=== PATIENT | male | born 1970 | race African-American/Black ===

== ENCOUNTER 2020-09-18 07:57 | Outpatient (RCR) | payer OTHER, SELFPAY ==
--- NOTE | ~2020-09-18 | XR_ITS ---
EXAMINATION: XR FOOT, LEFT CLINICAL INFORMATION: Left foot wound COMPARISON: None TECHNIQUE: AP, lateral, and oblique views of the left foot. FINDINGS: No acute visible fracture or dislocation. Small plantar calcaneal heel spur. Joint spaces and alignment are maintained. Soft tissue defect at the volar aspect along the metatarsophalangeal joints without soft tissue gas or cortical erosions to suggest osteomyelitis. XR/XR foot LT min 3V IMPRESSION: 1. No acute visible fracture or dislocation. 2. Soft tissue defect at the volar aspect along the metatarsophalangeal joints without soft tissue gas or cortical erosions to suggest osteomyelitis.
--- NOTE | ~2020-09-18 | XR_ITS ---
EXAMINATION: XR FOOT, RIGHT CLINICAL INFORMATION: Right dorsal foot performed COMPARISON: April 25, 2021 and studies dating back to September 19, 2020 TECHNIQUE: AP, lateral, and oblique views of the right foot. FINDINGS: No acute fracture or dislocation is evident. Status post transmetatarsal amputation of the fourth metatarsal. There is a stable appearance compared to study of April 25, 2021 without increase in erosive change at the amputation site. There has been resorption of some decalcification which was present within the soft tissues. No definite new periosteal reaction is present at the amputation site. No gas within the soft tissues identified. XR/XR foot RT 2V IMPRESSION: No change in appearance of the bone at the amputation site of the transmetatarsal surgery fourth metatarsal. Some resorption of calcification within the soft tissues.
[2021-05-22 08:46] LABS: MANUAL DIFF FLAG NO
[2021-05-22 09:00] LABS: Basophils Absolute Auto 0.1 X10*3/uL (0.0-0.2); Basophils Percent Auto 0.7 % (0-2); Eosinophils Absolute Auto 0.3 X10*3/uL (0.0-0.4); Eosinophils Percent Auto 3.4 % (0-4); Hematocrit 28.8 % (42-52); Hemoglobin 8.9 g/dl (14.0-18.0); Imm Gran Abs Auto 0.04 X10*3/uL (0.00-0.03); Imm Gran Pct Auto 0.4 % (0.0-0.4); Lymphocytes Percent Auto 32.3 % (20-40); Mean Corpuscular HGB Conc 30.9 g/dl (31.0-36.0); Mean Corpuscular Hemoglobin 25.9 pg (27.0-33.0); Mean Platelet Volume 9.7 fL (9.4-12.4); Monocytes Absolute Auto 0.7 X10*3/uL (0.1-1.2); Neutrophils Absolute Auto 5.1 X10*3/uL (2.0-8.3); Neutrophils Percent Auto 55.2 % (45-73); Platelet Count 494 X10*3/uL (160-400); Red Blood Count 3.43 X10*6/uL (4.60-5.80); Red Cell Distribution Width 14.4 % (11.0-16.0); White Blood Count 9.1 X10*3/uL (4.8-10.8)
[2021-05-22 09:47] LABS: Anion Gap 12 (12-20); Blood Urea Nitrogen 15 mg/dL (9-16); C Reactive Protein 0.37 mg/dL (< or = 0.50); Calcium 9.6 mg/dL (8.4-10.2); Carbon Dioxide 24 mmol/L (22-29); Chloride 106 mmol/L (96-108); Estimated Glomerular Filt Rate > 60; Glucose Random 224 mg/dL (60-115); Potassium 4.7 mmol/L (3.3-5.1); Sodium 137 mmol/L (135-145)
[2021-05-22 09:59] LABS: Erythrocyte Sedimentation Rate 55 MM/HR (0-15)
[2021-05-22 10:04] LABS: Estimated Average Glucose 192 mg/dL; Hemoglobin A1c % 8.3 %
[2021-06-13 08:37] LABS: MANUAL DIFF FLAG NO
[2021-06-13 08:43] LABS: Basophils Percent Auto 0.4 % (0-2); Eosinophils Absolute Auto 0.3 X10*3/uL (0.0-0.4); Eosinophils Percent Auto 2.6 % (0-4); Hematocrit 28.8 % (42-52); Hemoglobin 9.1 g/dl (14.0-18.0); Imm Gran Abs Auto 0.03 X10*3/uL (0.00-0.03); Imm Gran Pct Auto 0.3 % (0.0-0.4); Lymphocytes Absolute Auto 2.1 X10*3/uL (1.2-4.9); Lymphocytes Percent Auto 21.4 % (20-40); Mean Corpuscular HGB Conc 31.6 g/dl (31.0-36.0); Mean Corpuscular Volume 85.5 fL (80-98); Mean Platelet Volume 9.5 fL (9.4-12.4); Monocytes Absolute Auto 0.7 X10*3/uL (0.1-1.2); Monocytes Percent Auto 7.5 % (2-11); Neutrophils Absolute Auto 6.6 X10*3/uL (2.0-8.3); Neutrophils Percent Auto 67.8 % (45-73); Platelet Count 392 X10*3/uL (160-400); Red Blood Count 3.37 X10*6/uL (4.60-5.80); Red Cell Distribution Width 17.1 % (11.0-16.0); White Blood Count 9.7 X10*3/uL (4.8-10.8)
[2021-06-13 08:56] LABS: Estimated Average Glucose 197 mg/dL; Hemoglobin A1c % 8.5 %
[2021-06-13 09:02] LABS: Anion Gap 11 (12-20); Blood Urea Nitrogen 10 mg/dL (9-16); C Reactive Protein 0.25 mg/dL (< or = 0.50); Calcium 8.8 mg/dL (8.4-10.2); Carbon Dioxide 24 mmol/L (22-29); Chloride 108 mmol/L (96-108); Estimated Glomerular Filt Rate > 60; Glucose Random 156 mg/dL (60-115); Potassium 4.3 mmol/L (3.3-5.1); Sodium 139 mmol/L (135-145)
[2021-06-13 09:42] LABS: Erythrocyte Sedimentation Rate 39 MM/HR (0-15)
== END 2020-11-20 14:28 | disposition home or self-care (01) ==
LOC: HO.WCC 07:57
PROVIDERS: Absent Provider Surgery; PCP Nurse Practitioner; Visit Provider Physician Assistant
DX: E10.621 Type 1 diabetes mellitus with foot ulcer (principal); E10.51 Type 1 diabetes mellitus with diabetic peripheral angiopathy without gangrene; I70.235 Atherosclerosis of native arteries of right leg with ulceration of other part of foot; L97.516 Non-pressure chronic ulcer of other part of right foot with bone involvement without evidence of necrosis; E10.69 Type 1 diabetes mellitus with other specified complication; M86.171 Other acute osteomyelitis, right ankle and foot; E10.40 Type 1 diabetes mellitus with diabetic neuropathy, unspecified; F17.210 Nicotine dependence, cigarettes, uncomplicated; Z79.4 Long term (current) use of insulin
CPT/HCPCS: 11042; 11043; 36415; 73620; 80048; 83036; 84134; 85025; 85652; 86140; 87071; 87077; 87186; 87205; 99212; 99213

== ENCOUNTER 2020-09-19 09:44 | Emergency (ER) | payer OTHER, SELFPAY ==
[2020-09-19 09:50] VITALS: BP 137/98; PULSE 110; RESP 16; TEMP 37.1; O2SAT 94; BMI 27.3
--- NOTE | 2020-09-19 10:17 | US_ITS ---
EXAMINATION: ULTRASOUND ARTERIAL DUPLEX, RIGHT LEG. CLINICAL INFORMATION: Right leg pain and discoloration. COMPARISON: None TECHNIQUE: Ultrasound arterial imaging of right lower leg was performed. FINDINGS: There is normal color flow and patency of right common femoral, superficial femoral artery and the proximal, mid and distal segments with normal triphasic vein on Doppler exam. There is an acute occlusive thrombus with no flow seen on Doppler exam in the proximal right popliteal artery. There is some collateral circulation with flow visualized in the mid and the distal popliteal artery with a peak systolic velocity mid segment measuring 20.0 cm/second and distal segment measuring 31.2 cm/second. There is normal patency of posterior tibial and peroneal arteries. There are several lymph nodes visualized in the right groin with largest lymph node measuring approximately 1.6 cm in long axis and 0.8 cm in short axis. The soft tissues are normal. US/US arterial duplex LE RT IMPRESSION: Acute occlusive thrombus proximal right popliteal artery. There is collateral flow visualized in the mid and distal popliteal artery. The arteries in the thigh and the calf region are patent. Numerous lymph nodes seen in the right groin with largest lymph node measuring 1.6 cm. Results were immediately called to Dr. Oneal Figueroa by phone in the ER at 12:00 PM.
--- NOTE | 2020-09-19 10:20 | XR_ITS ---
EXAMINATION: XR FOOT, RIGHT CLINICAL INFORMATION: Diabetic wound. Rule out osteomyelitis. COMPARISON: None TECHNIQUE: AP, lateral, and oblique views of the right foot. FINDINGS: The bones and soft tissues are normal. No fracture. Alignment is anatomic. Joint spaces are maintained. XR/XR foot RT 2V IMPRESSION: Unremarkable right shoulder exam.
--- NOTE | 2020-09-19 10:49 | PC.NURSE ---
+cms to r foot. unable to ascertain a pulse with er portable doppler, mlp (jan) aware. pt to go to ultrasound.
[2020-09-19 11:08] LABS: Basophils Percent Auto 0.3 % (0-2); Eosinophils Absolute Auto 0.2 X10*3/uL (0.0-0.4); Eosinophils Percent Auto 1.3 % (0-4); Hematocrit 33.6 % (42-52); Hemoglobin 11.5 g/dl (14.0-18.0); Imm Gran Abs Auto 0.05 X10*3/uL (0.00-0.03); Imm Gran Pct Auto 0.4 % (0.0-0.4); Lymphocytes Absolute Auto 1.9 X10*3/uL (1.2-4.9); Lymphocytes Percent Auto 14.5 % (20-40); MANUAL DIFF FLAG NO; Mean Corpuscular HGB Conc 34.2 g/dl (31.0-36.0); Mean Corpuscular Hemoglobin 30.7 pg (27.0-33.0); Mean Corpuscular Volume 89.6 fL (80-98); Mean Platelet Volume 8.9 fL (9.4-12.4); Monocytes Absolute Auto 1.3 X10*3/uL (0.1-1.2); Neutrophils Absolute Auto 9.7 X10*3/uL (2.0-8.3); Neutrophils Percent Auto 73.5 % (45-73); Platelet Count 367 X10*3/uL (160-400); Red Blood Count 3.75 X10*6/uL (4.60-5.80); Red Cell Distribution Width 12.2 % (11.0-16.0); White Blood Count 13.3 X10*3/uL (4.8-10.8)
[2020-09-19 11:31] LABS: Lactic Acid 0.7 mmol/L (0.5-2.0)
[2020-09-19 11:35] LABS: Alanine Aminotransferase 7 U/L (0-40); Albumin Level 3.7 g/dL (3.5-5.0); Alkaline Phosphatase 84 U/L (39-117); Aspartate Amino Transferase 9 U/L (5-37); Bilirubin Total 0.5 mg/dL (0.0-1.0); Blood Urea Nitrogen 10 mg/dL (9-16); Calcium 8.8 mg/dL (8.4-10.2); Creatinine Clr Calc Pharmacy 87.4; Estimated Glomerular Filt Rate > 60; Glucose Random 322 mg/dL (60-115); Total Protein 6.9 g/dL (6.5-8.0)
[2020-09-19 11:36] VITALS: BP 151/93; PULSE 88; RESP 16; TEMP 37; O2SAT 99
[2020-09-19 11:45] LABS: Anion Gap 13 (12-20); Carbon Dioxide 26 mmol/L (22-29); Chloride 100 mmol/L (96-108); Sodium 135 mmol/L (135-145)
--- NOTE | 2020-09-19 12:56 | ED.WOUNDLAC ---
HPI - Wound/Laceration General Chief Complaint: Wound/Laceration Stated Complaint: wound rt ft Time Seen by Provider: 09/19/20 10:14 Source: patient Mode of arrival: ambulatory Limitations: no limitations History of Present Illness HPI narrative: This is a 49-year-old male with past medical history that is significant for diabetes and diabetic foot ulcer to the right foot currently being followed by the [facility] presents today seeking ultrasound of the right foot states he was told that the wound care center to come here yesterday. States he has had a wound on the plantar aspect of the right foot for several weeks he has seen primary care and wound care center here at [place] currently taking Keflex and doxycycline. Denies any swelling, redness, discharge. Slight does report slight discoloration to the 4th toe. Denies any fever chills. No chest pain shortness of breath. Onset (ago): day(s) Related Data Previous Rx's Medication Instructions Recorded aspirin [Adult Aspirin Regimen] 81 mg PO DAILY #30 tab 09/19/20 clopidogrel [Plavix] 75 mg PO DAILY #30 tab 09/19/20 Allergies Allergy/AdvReac Type Severity Reaction Status Date / Time No Known Allergies Allergy Verified 09/19/20 09:52 Review of Systems Review of Systems: Constitutional: No Weight loss, No Fever, No Chills, No Night Sweats, No Fatigue, No Malaise ENT/Mouth: No Hearing loss, No Ear Pain, No Nasal Congestion, No Sinus Pain, No Hoarseness, No sore throat, No Rhinorrhea Eyes: No Eye Pain, No Swelling, No Redness, No Foreign Body, No Discharge, No Vision Changes Cardiovascular: No Chest Pain, No SOB, No Dyspnea on Exertion, No Orthopnea, No Edema, No Palpitations Respiratory: No Cough, No Sputum, No Wheezing, No Smoke Exposure, No Dyspnea Gastrointestinal: No Nausea, No Vomiting, No Diarrhea, No Constipation, No abdominal Pain, No Hematochezia, No Melena Genitourinary: No Dysuria, No Urinary Frequency, No Hematuria, No Urinary Incontinence, No Urgency, No Flank Pain, No Urinary Flow Changes, No Hesitancy Musculoskeletal: No joint pain, No Myalgias, No Joint Swelling Skin: No Skin Lesions, No rash, as noted in HPI Neuro: No Weakness, No Numbness, No Paresthesias, No Loss of Consciousness, No Dizziness, No Headache Psych: No Social Issues Heme/Lymph: No Bruising, No Bleeding,No Lymphadenopathy Endocrine: No Polyuria, No Polydipsia, No Temperature Intolerance Yes all other systems are reviewed and are negative [facility] Past Medical History Medical History (Updated 09/19/20 @ 14:08 by Oneal Figueroa NP) Diabetes Social History Social History Smoking Status: Former smoker Physical Exam Vital Signs: Vital Signs: Last Vital Signs Temp 98.7 F 09/19/20 13:38 Pulse 86 09/19/20 13:38 Resp 16 09/19/20 13:38 BP 164/98 H 09/19/20 13:38 Pulse Ox 100 09/19/20 13:38 Body Mass Index 27.3 Reviewed Const: General: cooperative; No acute distress or intoxicated appearing Nutritional Appearance: average body habitus Orientation/consciousness: patient oriented x3 HENMT: Head: Yes normal to inspection Ears: hearing grossly normal bilaterally Eyes: General: appearance normal, both eyes and all related structures Visual Wheat: normal visual wheat by confrontation Neck: Neck: Yes normal visual inspection and No tender Thyroid: Thyroid normal Chest: Chest palpation & inspection: normal inspection of the chest Resp: Effort & Inspection: normal respiratory effort Cardio: Jugular venous distension: no JVD GI: Inspection: Yes normal to inspection Percussion: Yes normal to percussion Auscultation: normal bowel sounds : General: Yes no CVA tenderness Back/Spine/Pelvis: Back: no CVA tenderness Skin: General skin exam: no rashes or lesions noted Neuro: General: patient oriented x3 Extrem: Other: Slightly difficult to palpate but palpable distal pulses. General: Yes normal to inspection Course Course Course Narrative: Case discussed with Dr. Hammer imaging/labs reviewed. Based on findings not feel this is acute arterial clot however recommend to start patient on aspirin and Plavix and office will call to set up appointment with him for angiogram this week. Reevaluation(s) Reevaluation #1: I reviewed the lab work as well as plan with the patient who is very bad historian as he has been to multiple different hospitals including 2 visits to [facility] where he had negative plain films for osteo subsequently urgent care and then primary care which led to wound care center and today here. I reviewed the importance of taking his medications following up with his wound care center in primary care doctor and the importance of follow-up with Dr. Hammer for intervention as discussed. I did review with him the use of blood thinners and precaution/use instructions/return precautions. He verbalized understanding. Agreeable. I did have the madi on the phone as well and she verbalized understanding will help him follow-up. MDM - Wound/Laceration Medical Records Attestation: I reviewed the patient's medical records. Medical records narrative: Be followed by the wound care center here at [place] There is no records in EMR however apparently they use a different system than Us and I called the office the records will be faxed to us with patient's consent. It is noted that patient has had this right foot wound and he was actually told during the visit yesterday to have the ultrasound which was scheduled today for October 04. Lab Data Attestation: I reviewed the patient's lab results. Result diagrams: 09/19/20 10:57 09/19/20 10:57 Labs: Lab Results 09/19/20 09/19/20 09/19/20 Range/Units 10:56 10:57 10:57 WBC 13.3 H (4.8-10.8) X10*3/uL RBC 3.75 L (4.60-5.80) X10*6/uL Hgb 11.5 L (14.0-18.0) g/dl Hct 33.6 L (42-52) % MCV 89.6 (80-98) fL MCH 30.7 (27.0-33.0) pg MCHC 34.2 (31.0-36.0) g/dl RDW 12.2 (11.0-16.0) % Plt Count 367 (160-400) X10*3/uL MPV 8.9 L (9.4-12.4) fL Immature Gran % (Auto) 0.4 (0.0-0.4) % Neut % (Auto) 73.5 H (45-73) % Lymph % (Auto) 14.5 L (20-40) % [place] % (Auto) 10.0 (2-11) % Eos % (Auto) 1.3 (0-4) % Baso % (Auto) 0.3 (0-2) % Lymph # (Auto) 1.9 (1.2-4.9) X10*3/uL [place] # (Auto) 1.3 H (0.1-1.2) X10*3/uL Eos # (Auto) 0.2 (0.0-0.4) X10*3/uL Baso # (Auto) 0.0 (0.0-0.2) X10*3/uL Abs Immat Gran (auto) 0.05 H (0.00-0.03) X10*3/uL Absolute Neuts (auto) 9.7 H (2.0-8.3) X10*3/uL Absolute Nucleated RBC 0.000 (0.0-0.012) X10*3/uL Nucleated RBC % (auto) 0.0 (0.0-0.2) /100WBC PT (10.8-13.0) SEC INR (0.9-1.1) APTT (24.1-38.0) SEC Sodium 135 (135-145) mmol/L Potassium 4.0 (3.3-5.1) mmol/l Chloride 100 (96-108) mmol/L Carbon Dioxide 26 (22-29) mmol/L Anion Gap 13 (12-20) BUN 10 (9-16) mg/dL Creatinine 1.01 (0.5-1.4) mg/dL Estim Creat Clear Calc 87.4 Estimated GFR > 60 Random Glucose 322 H (60-115) mg/dL Lactic Acid 0.7 (0.5-2.0) mmol/L Calcium 8.8 (8.4-10.2) mg/dL Total Bilirubin 0.5 (0.0-1.0) mg/dL AST 9 (5-37) U/L ALT 7 (0-40) U/L Alkaline Phosphatase 84 (39-117) U/L Total Protein 6.9 (6.5-8.0) g/dL Albumin 3.7 (3.5-5.0) g/dL 09/19/20 Range/Units 13:15 WBC (4.8-10.8) X10*3/uL RBC (4.60-5.80) X10*6/uL Hgb (14.0-18.0) g/dl Hct (42-52) % MCV (80-98) fL MCH (27.0-33.0) pg MCHC (31.0-36.0) g/dl RDW (11.0-16.0) % Plt Count (160-400) X10*3/uL MPV (9.4-12.4) fL Immature Gran % (Auto) (0.0-0.4) % Neut % (Auto) (45-73) % Lymph % (Auto) (20-40) % [place] % (Auto) (2-11) % Eos % (Auto) (0-4) % Baso % (Auto) (0-2) % Lymph # (Auto) (1.2-4.9) X10*3/uL [place] # (Auto) (0.1-1.2) X10*3/uL Eos # (Auto) (0.0-0.4) X10*3/uL Baso # (Auto) (0.0-0.2) X10*3/uL Abs Immat Gran (auto) (0.00-0.03) X10*3/uL Absolute Neuts (auto) (2.0-8.3) X10*3/uL Absolute Nucleated RBC (0.0-0.012) X10*3/uL Nucleated RBC % (auto) (0.0-0.2) /100WBC PT 13.8 H (10.8-13.0) SEC INR 1.2 H (0.9-1.1) APTT 38.4 H (24.1-38.0) SEC Sodium (135-145) mmol/L Potassium (3.3-5.1) mmol/l Chloride (96-108) mmol/L Carbon Dioxide (22-29) mmol/L Anion Gap (12-20) BUN (9-16) mg/dL Creatinine (0.5-1.4) mg/dL Estim Creat Clear Calc Estimated GFR Random Glucose (60-115) mg/dL Lactic Acid (0.5-2.0) mmol/L Calcium (8.4-10.2) mg/dL Total Bilirubin (0.0-1.0) mg/dL AST (5-37) U/L ALT (0-40) U/L Alkaline Phosphatase (39-117) U/L Total Protein (6.5-8.0) g/dL Albumin (3.5-5.0) g/dL Imaging Data Duplex scan right lower extremity artery: Radiologist's impression: [place] [id number] Ultrasound Report Signed Patient: Theron Barry#: [id number] : 1970Acct:[id number] Age/Sex: 49 / MADM Date: 09/19/20 Loc: HO.ED Attending Dr: Ordering Physician: Oneal Figueroa NP Date of Service: 09/19/20 Procedure(s): US arterial duplex LE RT Accession Number(s): [id number] cc: Oneal Figueroa NP~ EXAMINATION: ULTRASOUND ARTERIAL DUPLEX, RIGHT LEG. CLINICAL INFORMATION: Right leg pain and discoloration. COMPARISON: None TECHNIQUE: Ultrasound arterial imaging of right lower leg was performed. FINDINGS: There is normal color flow and patency of right common femoral, superficial femoral artery and the proximal, mid and distal segments with normal triphasic vein on Doppler exam. There is an acute occlusive thrombus with no flow seen on Doppler exam in the proximal right popliteal artery. There is some collateral circulation with flow visualized in the mid and the distal popliteal artery with a peak systolic velocity mid segment measuring 20.0 cm/second and distal segment measuring 31.2 cm/second. There is normal patency of posterior tibial and peroneal arteries. There are several lymph nodes visualized in the right groin with largest lymph node measuring approximately 1.6 cm in long axis and 0.8 cm in short axis. The soft tissues are normal. US/US arterial duplex LE RT IMPRESSION: Acute occlusive thrombus proximal right popliteal artery. There is collateral flow visualized in the mid and distal popliteal artery. The arteries in the thigh and the calf region are patent. Numerous lymph nodes seen in the right groin with largest lymph node measuring 1.6 cm. Results were immediately called to Dr. Oneal Figueroa by phone in the ER at 12:00 PM. Dictated By:DELFINA GONZALEZ MD Signed By:<Electronically signed by DELFINA GONZALEZ MD in OV>09/19/20 1216 DD/ 1017 TD/TT: [employer]: JAEL Right foot x-ray: Radiologist's impression: [place] [id number] [place] [address] XRay Report Signed with Addenda Patient: Júnior BarryR#: [id number] : 1970Acct:[id number] Age/Sex: 49 / MADM Date: 09/19/20 Loc: HO.ED Attending Dr: Ordering Physician: Oneal Figueroa NP Date of Service: 09/19/20 Procedure(s): XR foot RT 2V Accession Number(s): [id number] cc: Oneal Figueroa [employer]~ ADDENDUM Impression should correctly read as unremarkable right foot exam. Addendum Dictated By:DELFINA GONZALEZ MD Addendum Signed By:<Electronically signed by DELFINA GONZALEZ MD in OV>09/19/20 1314 Addendum Cosigned By: DD/ TD/TT: / EXAMINATION: XR FOOT, RIGHT CLINICAL INFORMATION: Diabetic wound. Rule out osteomyelitis. COMPARISON: None TECHNIQUE: AP, lateral, and oblique views of the right foot. FINDINGS: The bones and soft tissues are normal. No fracture. Alignment is anatomic. Joint spaces are maintained. XR/XR foot RT 2V IMPRESSION: Unremarkable right shoulder exam. Dictated By:DELFINA GONZALEZ MD Signed By:<Electronically signed by DELFINA GONZALEZ MD in OV>09/19/20 1054 DD/ 1020 TD/TT: [employer]: [facility] Discharge Plan Discharge Clinical Impression: Femoral popliteal artery thrombus, Chronic diabetic ulcer of right foot determined by examination Patient Disposition: Home, Self-Care Instructions: Diabetic Foot Ulcers (ED), Peripheral Thrombolysis (DC), Blood Thinners (ED) Additional Instructions: Start your aspirin Start your Plavix Continue with your Keflex and doxycycline Follow-up with Dr. Hammer call today for an appointment to have evaluation office for intervention as discussed Follow-up with wound care center as plan Return if any concerns or worsening symptoms Thank you Prescriptions: New clopidogrel [Plavix] 75 mg tablet 75 mg PO DAILY Qty: 30 RF: 0 aspirin [Adult Aspirin Regimen] 81 mg tablet,delayed release (DR/EC) 81 mg PO DAILY Qty: 30 RF: 0 Referrals: Wound care center, [place] [Other] - 2 days Bebeto Hammer MD [Physician] - 2 days
[2020-09-19 13:26] LABS: INTERNATIONAL NORM RATIO 1.2 (0.9-1.1); Prothrombin Time 13.8 SEC (10.8-13.0)
[2020-09-19 13:28] LABS: Partial Thromboplastin Time 38.4 SEC (24.1-38.0)
[2020-09-19 13:38] VITALS: BP 164/98; PULSE 86; RESP 16; TEMP 37.1; O2SAT 100
== END 2020-09-19 14:20 | disposition home or self-care (01) ==
PROVIDERS: Nurse Practitioner Primary Care; Emergency Provider Emergency Medicine; PCP Nurse Practitioner
DX: I82.431 Acute embolism and thrombosis of right popliteal vein (principal); E11.621 Type 2 diabetes mellitus with foot ulcer; I10 Essential (primary) hypertension; Z79.82 Long term (current) use of aspirin
CPT/HCPCS: 36415; 73620; 80053; 83605; 85025; 85610; 85730; 87040; 87076; 87185; 93926; 99284

== ENCOUNTER → 2020-09-20 13:55 | Outpatient (BNVA) | payer OTHER, SELFPAY | PROVIDERS: Visit Provider Surgery Vascular Surgery | DX: Z76.89 Persons encountering health services in other specified circumstances (principal) ==

== ENCOUNTER 2020-09-20 15:50 | Inpatient (IN) | payer OTHER, SELFPAY ==
[2020-09-20 17:27] VITALS: BP 146/85; PULSE 111; RESP 20; TEMP 37.7; O2SAT 99; BMI 29.7
--- NOTE | 2020-09-20 17:30 | XR_ITS ---
EXAMINATION: XR CHEST CLINICAL INFORMATION: Bacteremia. Concern for pneumonia. COMPARISON: None TECHNIQUE: Frontal portable view of the chest was obtained. 5:59 PM FINDINGS: No significant abnormality is noted involving the heart, lungs, mediastinum, bony thorax or soft tissues. XR/XR chest 1V IMPRESSION: Unremarkable examination.
--- NOTE | 2020-09-20 17:40 | ED_ITS ---
HPI - General Adult General Chief complaint: Recheck/Abnormal Lab/Rx Stated complaint: bacteria in blood Time Seen by Provider: 09/20/20 17:23 Source: patient Mode of arrival: ambulatory Limitations: no limitations History of Present Illness HPI narrative: 49-year-old male with longstanding history of diabetes, patient presented yesterday with generalized weakness and right foot pain and right foot diabetic ulcers that has been managed by wound clinic, patient returned today after you received call from the emergency department for positive gram-negative vic in the blood culture. Patient emergency department still feel generalized weakness, headache, severe right lower extremities pain. Yesterday patient had an ultrasound of right lower extremities had right popliteal artery thrombosis the case was reviewed with Dr. Hammer (vascular surgery) the plan was to follow up with Dr. Hammer as an outpatient to consider lower extremities diagnostic angiogram. Related Data Home Medications Medication Instructions Recorded Confirmed cephalexin 500 mg capsule 500 mg PO TID 09/20/20 doxycycline hyclate 100 mg tablet 100 mg PO BID 09/20/20 ibuprofen 800 mg tablet mg PO 09/20/20 tramadol 50 mg tablet 50 mg PO QID PRN 09/20/20 Previous Rx's Medication Instructions Recorded aspirin [Adult Aspirin Regimen] 81 mg PO DAILY #30 tab 09/19/20 clopidogrel [Plavix] 75 mg PO DAILY #30 tab 09/19/20 Allergies Allergy/AdvReac Type Severity Reaction Status Date / Time No Known Allergies Allergy Verified 09/20/20 13:55 Review of Systems Review of Systems: All other systems are reviewed and are negative Constitutional: Reports as per HPI and Reports no additional constitutional complaints Eyes: Reports as per HPI and Reports no additional eye complaints Reports system reviewed and no additional complaints, except as documented Cardiovascular: Reports as per HPI and Reports no additional cardiovascular complaints Respiratory: Reports as per HPI and Reports no additional respiratory complaints Gastrointestinal: Reports as per HPI and Reports no additional gastrointestinal complaints Genitourinary: Reports no additional female genitourinary complaints Musculoskeletal: Reports no additional musculoskeletal complaints Skin/Breast: Reports system reviewed and no additional complaints, except as docu Psychiatric: Reports no additional psychiatric complaints Endocrine: Reports no additional endocrine complaints Hematologic/Lymphatic: Reports no additional hematologic/lymphatic complaints Allergic/Immunologic: Reports no additional allergic/immunologic complaints Reports system reviewed and no additional complaints, except as documented and Reports Abnormal speech present [facility] Past Medical History Medical History Diabetes Social History Social History Smoking Status: Current every day smoker Tobacco Type: Cigarette Years Smoked: 30 Advance Directives: No Advance Directives Information Provided: Yes Physical Exam Vital Signs: Vital Signs: Last Vital Signs Temp 99.8 F 09/20/20 17:57 Pulse 98 09/20/20 17:57 Resp 14 09/20/20 17:57 BP 180/120 H 09/20/20 18:33 Pulse Ox 99 09/20/20 17:57 Body Mass Index 29.7 Vital signs have been reviewed as normal and appeared to be correct. Blood pressure in the high range. Tachycardia. Respiration rate normal. Temperature normal. Oxygen saturation normal. Appearance: Alert. Oriented X3. No acute distress. Head: Normal external exam. Normocephalic. Atraumatic. No Owens signs noted. No raccoon eyes noted Eyes: PERRLA. EOMI. Conjunctiva and sclera normal. Eyelids normal. ENT: EAC normal. TM's Normal. Pharynx normal. Uvula midline. Moist mucous membranes. No trismus noted. No drooling noted. No muffled voice noted. Neck: Normal inspection. Neck supple. FROM. No adenopathy. Thyroid Normal. No meningeal signs. No neck mass noted. CVS: Normal heart rate and rhythm. Heart sound normal. No murmurs noted. Pulses normal throughout. Respiratory: No respiratory distress. Painless inspiration. Breath sounds normal. No wheezes/rales/rhonchi noted. Chest nontender. No accessory muscle usage noted or decreased air movement noted. Abdomen: Soft and nontender. Bowel sounds normal in all 4 quadrants. No distention noted. No organomegaly noted. No visible injury noted. Back: No CVA tenderness. Full range of motion noted. Skin: Skin warm and dry. Normal skin color. Normal skin turgor. No rashes/lesions/lacerations noted. Extremities: No lower extremity edema. Right foot exam: 2 x 1 cm over ulcerative lesion at the palmar aspect of her right foot, more distal, with redness and hotness surrounding the ulcerative lesion, no discharge, no fluctuation. Extremities exhibit normal range of motion. Extremities nontender. Neuro: Oriented X 3. No motor deficit. No sensory deficit. Reflexes normal. Course Course Course Narrative: Assessment and plan. 49-year-old male with history of diabetes and diabetic foot ulcer, positive bacteremia for Gram-negative vic. 1. Bacteremia with right leg diabetic ulcers will start the patient on broad- spectrum antibiotic. Normal lactic acid, post of leukocytosis, and tachycardia (patient meet criteria for SIRS) will continue with IV fluids, admit. 2. Patient had a right popliteal artery thrombus consultation was obtained from Dr. Hammer yesterday patient supposedly to have lower extremities angiogram and further management by Dr. Hammer. 3. Hypertension could be responding to pain, could be undiagnosed essential hypertension we will further monitor the blood pressure. Medical Decision Making Lab Data Result diagrams: 09/20/20 17:47 09/20/20 17:47 Labs: Lab Results 09/20/20 09/20/20 09/20/20 Range/Units 17:47 17:47 17:47 WBC 16.1 H (4.8-10.8) X10*3/uL RBC 3.83 L (4.60-5.80) X10*6/uL Hgb 11.4 L (14.0-18.0) g/dl Hct 34.3 L (42-52) % MCV 89.6 (80-98) fL MCH 29.8 (27.0-33.0) pg MCHC 33.2 (31.0-36.0) g/dl RDW 12.2 (11.0-16.0) % Plt Count 375 (160-400) X10*3/uL MPV 9.1 L (9.4-12.4) fL Immature Gran % (Auto) 0.4 (0.0-0.4) % Neut % (Auto) 85.9 H (45-73) % Lymph % (Auto) 5.4 L (20-40) % [place] % (Auto) 7.8 (2-11) % Eos % (Auto) 0.3 (0-4) % Baso % (Auto) 0.2 (0-2) % Lymph # (Auto) 0.9 L (1.2-4.9) X10*3/uL [place] # (Auto) 1.3 H (0.1-1.2) X10*3/uL Eos # (Auto) 0.1 (0.0-0.4) X10*3/uL Baso # (Auto) 0.0 (0.0-0.2) X10*3/uL Abs Immat Gran (auto) 0.06 H (0.00-0.03) X10*3/uL Absolute Neuts (auto) 13.8 H (2.0-8.3) X10*3/uL Absolute Nucleated RBC 0.000 (0.0-0.012) X10*3/uL Nucleated RBC % (auto) 0.0 (0.0-0.2) /100WBC Sodium 134 L (135-145) mmol/L Potassium 3.9 (3.3-5.1) mmol/l Chloride 99 (96-108) mmol/L Carbon Dioxide 23 (22-29) mmol/L Anion Gap 16 (12-20) BUN 10 (9-16) mg/dL Creatinine 0.84 (0.5-1.4) mg/dL Estim Creat Clear Calc 113.8 Estimated GFR > 60 Random Glucose 203 H D (60-115) mg/dL Lactic Acid 1.0 (0.5-2.0) mmol/L Calcium 8.7 (8.4-10.2) mg/dL Total Bilirubin 0.8 (0.0-1.0) mg/dL Direct Bilirubin 0.4 (0.0-0.5) mg/dL AST 9 (5-37) U/L ALT 7 (0-40) U/L Alkaline Phosphatase 91 (39-117) U/L Total Protein 7.1 (6.5-8.0) g/dL Albumin 3.8 (3.5-5.0) g/dL Lipase < 4 L (8-78) U/L COVID-19 (DELIA) (Negative) COVID-19 Clin Com 09/20/20 Range/Units 17:48 WBC (4.8-10.8) X10*3/uL RBC (4.60-5.80) X10*6/uL Hgb (14.0-18.0) g/dl Hct (42-52) % MCV (80-98) fL MCH (27.0-33.0) pg MCHC (31.0-36.0) g/dl RDW (11.0-16.0) % Plt Count (160-400) X10*3/uL MPV (9.4-12.4) fL Immature Gran % (Auto) (0.0-0.4) % Neut % (Auto) (45-73) % Lymph % (Auto) (20-40) % [place] % (Auto) (2-11) % Eos % (Auto) (0-4) % Baso % (Auto) (0-2) % Lymph # (Auto) (1.2-4.9) X10*3/uL [place] # (Auto) (0.1-1.2) X10*3/uL Eos # (Auto) (0.0-0.4) X10*3/uL Baso # (Auto) (0.0-0.2) X10*3/uL Abs Immat Gran (auto) (0.00-0.03) X10*3/uL Absolute Neuts (auto) (2.0-8.3) X10*3/uL Absolute Nucleated RBC (0.0-0.012) X10*3/uL Nucleated RBC % (auto) (0.0-0.2) /100WBC Sodium (135-145) mmol/L Potassium (3.3-5.1) mmol/l Chloride (96-108) mmol/L Carbon Dioxide (22-29) mmol/L Anion Gap (12-20) BUN (9-16) mg/dL Creatinine (0.5-1.4) mg/dL Estim Creat Clear Calc Estimated GFR Random Glucose (60-115) mg/dL Lactic Acid (0.5-2.0) mmol/L Calcium (8.4-10.2) mg/dL Total Bilirubin (0.0-1.0) mg/dL Direct Bilirubin (0.0-0.5) mg/dL AST (5-37) U/L ALT (0-40) U/L Alkaline Phosphatase (39-117) U/L Total Protein (6.5-8.0) g/dL Albumin (3.5-5.0) g/dL Lipase (8-78) U/L COVID-19 (DELIA) Negative (Negative) COVID-19 Clin Com See Note Imaging Data Chest x-ray: Radiologist's impression: No acute pathology Discharge Plan Discharge Clinical Impression: Diabetic foot ulcer, Bacteremia, Hypertension Patient Disposition: Admitted As Inpatient Prescriptions: No Action clopidogrel [Plavix] 75 mg tablet 75 mg PO DAILY Qty: 30 RF: 0 aspirin [Adult Aspirin Regimen] 81 mg tablet,delayed release (DR/EC) 81 mg PO DAILY Qty: 30 RF: 0
[2020-09-20 17:57] VITALS: BP 171/99; PULSE 98; RESP 14; TEMP 37.7; O2SAT 99
[2020-09-20] MEDS: Piperacillin Sodium/Tazobactam 3.375 GM in 0.9 % Sodium Chloride 50 ML IV (18:09)
[2020-09-20 18:10] LABS: MANUAL DIFF FLAG NO
[2020-09-20 18:15] LABS: Basophils Percent Auto 0.2 % (0-2); Eosinophils Absolute Auto 0.1 X10*3/uL (0.0-0.4); Eosinophils Percent Auto 0.3 % (0-4); Hematocrit 34.3 % (42-52); Hemoglobin 11.4 g/dl (14.0-18.0); Imm Gran Abs Auto 0.06 X10*3/uL (0.00-0.03); Imm Gran Pct Auto 0.4 % (0.0-0.4); Lymphocytes Absolute Auto 0.9 X10*3/uL (1.2-4.9); Lymphocytes Percent Auto 5.4 % (20-40); Mean Corpuscular HGB Conc 33.2 g/dl (31.0-36.0); Mean Corpuscular Hemoglobin 29.8 pg (27.0-33.0); Mean Corpuscular Volume 89.6 fL (80-98); Mean Platelet Volume 9.1 fL (9.4-12.4); Monocytes Absolute Auto 1.3 X10*3/uL (0.1-1.2); Monocytes Percent Auto 7.8 % (2-11); Neutrophils Absolute Auto 13.8 X10*3/uL (2.0-8.3); Neutrophils Percent Auto 85.9 % (45-73); Platelet Count 375 X10*3/uL (160-400); Red Blood Count 3.83 X10*6/uL (4.60-5.80); Red Cell Distribution Width 12.2 % (11.0-16.0); White Blood Count 16.1 X10*3/uL (4.8-10.8)
[2020-09-20] MEDS: levoFLOXacin/D5W 750 MG/150 ML PIGGYBACK 100 MG IV (18:30)
[2020-09-20 18:33] VITALS: BP 180/120
[2020-09-20 18:33] LABS: COVID-19 Test Negative (Negative); IDNOW Serial# 9DD0AD1C
[2020-09-20 18:46] LABS: Alanine Aminotransferase 7 U/L (0-40); Albumin Level 3.8 g/dL (3.5-5.0); Alkaline Phosphatase 91 U/L (39-117); Anion Gap 16 (12-20); Aspartate Amino Transferase 9 U/L (5-37); Bilirubin Direct 0.4 mg/dL (0.0-0.5); Bilirubin Total 0.8 mg/dL (0.0-1.0); Blood Urea Nitrogen 10 mg/dL (9-16); Calcium 8.7 mg/dL (8.4-10.2); Carbon Dioxide 23 mmol/L (22-29); Chloride 99 mmol/L (96-108); Creatinine Clr Calc Pharmacy 113.8; Estimated Glomerular Filt Rate > 60; Glucose Random 203 mg/dL (60-115); Lipase < 4 U/L (8-78); Potassium 3.9 mmol/l (3.3-5.1); Sodium 134 mmol/L (135-145); Total Protein 7.1 g/dL (6.5-8.0)
[2020-09-20 20:00] VITALS: BP 149/97; PULSE 105; RESP 18; TEMP 37; O2SAT 100
[2020-09-20] MEDS: vancomycin HCL 1,000 MG in 0.9 % Sodium Chloride 250 ML 270 MG IV (20:19)
[2020-09-20 20:28] LABS: Glucose, Whole Blood 211 mg/dL (60-115)
--- NOTE | 2020-09-20 20:54 | PM.IMHP ---
History of Present Illness Date of Service: 09/20/20 Chief Complaint: Foot pain This is a 49-year-old male with past medical history of diabetes, and chronic right foot ulcer who presents to the hospital with complaints of worsening pain of his right foot. Patient presented to the ED yesterday with this pain, arterial Doppler was done and he was found to have a popliteal occlusion, vascular surgery was consulted and advised patient to be discharged with aspirin and Plavix and follow up outpatient for angiogram. Patient was called back to the hospital today after his blood cultures grew Gram-negative rods. Patient reports that he has been having worsening pain over the past 1 month, he has noticed drainage, he is significantly fatigued, has loss of appetite and just loss of energy,, and has also noticed discoloration of his 4th toe that has been worsening over the past few weeks. denies fever but has chills, no chest pain, no sob, no cough, no abdominal pain, no diarrhea , has constipation, no urinary symptoms, no lower extremity edema. pt has been going to wound clinic regularly and he was told to go to the ED yesterday. On arrival to the ED patient's vital significant for a heart rate of 110, temperature of 98.8?, respiratory rate of 20, blood pressure 146/85, satting 99% on room air. Labs are significant for WBC count of 16.1 which was worsened from yesterday of 13.3, Hgb 11.4, Hct 34.3, corrected sodium of 137, glucose of 211 duplex scan of the lower extremity artery showed acute occlusive thrombus proximal right popliteal artery. There is collateral flow visualized in the mid and distal popliteal artery. Pmh: DM Surgical hx : denies Family hx: Denies Social hx: comes from home, denies tobacco, alcohol or illicit drug Review of Systems Review of Systems: Yes all other systems are reviewed and are negative [facility] Medical History Diabetes PAD (peripheral artery disease) Social History Alcohol intake: never Smoking Status: Current every day smoker Tobacco Type: Cigarette Years Smoked: 30 Use of substances other than those prescribed or required for medical reasons: No Advance Directives: No Advance Directives Information Provided: Yes Meds Allergies Allergy/AdvReac Type Severity Reaction Status Date / Time No Known Allergies Allergy Verified 09/20/20 13:55 Home Medications Medication Instructions Recorded Confirmed Type cephalexin 500 mg capsule 500 mg PO TID 09/20/20 09/20/20 History doxycycline hyclate 100 mg tablet 100 mg PO BID 09/20/20 09/20/20 History ibuprofen 800 mg tablet 800 mg PO Q8H PRN 09/20/20 09/20/20 History tramadol 50 mg tablet 50 mg PO QID PRN 09/20/20 09/20/20 History Physical Exam Vital Signs and Narrative: Vital Signs: Last Vital Signs Temp 98.6 F 09/20/20 20:00 Pulse 105 H 09/20/20 20:00 Resp 18 09/20/20 20:00 BP 149/97 H 09/20/20 20:00 Pulse Ox 100 09/20/20 20:00 Body Mass Index 29.7 Const: General: cooperative and no acute distress Orientation/consciousness: patient oriented x3 Eyes: General: appearance normal, both eyes and all related structures Resp: Effort & Inspection: normal respiratory effort and able to speak in complete sentences Cardio: Rate: regular rate Rhythm: regular rhythm GI: Palpation (GI): Soft to palpation Auscultation: normal bowel sounds Neuro: General: patient oriented x3 Cognition (Neuro): normal cognition Extrem: Other: right foot plantar aspect wound, draining, 4th toe discoloration/cold to touch General: Yes no pedal edema Results Labs CBC and Chem 7: 09/20/20 17:47 09/20/20 17:47 Labs: Laboratory Results - last 24 hr 09/20/20 09/20/20 09/20/20 17:47 17:47 17:47 MCV 89.6 MCH 29.8 MCHC 33.2 RDW 12.2 Plt Count 375 MPV 9.1 L Immature Gran % (Auto) 0.4 Neut % (Auto) 85.9 H Lymph % (Auto) 5.4 L [place] % (Auto) 7.8 Eos % (Auto) 0.3 Baso % (Auto) 0.2 Lymph # (Auto) 0.9 L [place] # (Auto) 1.3 H Eos # (Auto) 0.1 Baso # (Auto) 0.0 Abs Immat Gran (auto) 0.06 H Absolute Neuts (auto) 13.8 H Absolute Nucleated RBC 0.000 Nucleated RBC % (auto) 0.0 Anion Gap 16 Estim Creat Clear Calc 113.8 Estimated GFR > 60 POC Glucose Random Glucose 203 H D Lactic Acid 1.0 Calcium 8.7 Total Bilirubin 0.8 Direct Bilirubin 0.4 AST 9 ALT 7 Alkaline Phosphatase 91 Total Protein 7.1 Albumin 3.8 Lipase < 4 L COVID-19 ([facility]IA) COVID-19 Clin Com 09/20/20 09/20/20 17:48 20:24 MCV MCH MCHC RDW Plt Count MPV Immature Gran % (Auto) Neut % (Auto) Lymph % (Auto) [place] % (Auto) Eos % (Auto) Baso % (Auto) Lymph # (Auto) [place] # (Auto) Eos # (Auto) Baso # (Auto) Abs Immat Gran (auto) Absolute Neuts (auto) Absolute Nucleated RBC Nucleated RBC % (auto) Anion Gap Estim Creat Clear Calc Estimated GFR POC Glucose 211 H Random Glucose Lactic Acid Calcium Total Bilirubin Direct Bilirubin AST ALT Alkaline Phosphatase Total Protein Albumin Lipase COVID-19 ([facility]IA) Negative COVID-19 Clin Com See Note Imaging Radiologist's Impressions: Impressions Chest X-Ray 09/20/20 17:30 IMPRESSION: Unremarkable examination. Assessment and Plan (1) Diabetic foot ulcer: Qualifiers: Diabetes mellitus type: type 1 Diabetic foot ulcer location: midfoot Laterality: right Non-pressure ulcer stage: unspecified non-pressure ulcer stage Qualified Code(s): E10.621 - Type 1 diabetes mellitus with foot ulcer; L97.419 - Non-pressure chronic ulcer of right heel and midfoot with unspecified severity Status: Acute (2) PAD (peripheral artery disease): Status: Acute (3) Bacteremia: Status: Acute (4) Sepsis: Status: Acute (5) Lactic acidosis: Status: Acute This is a 49-year-old male with past medical history of diabetes who presents to the hospital with complaints of right foot pain, nonhealing wound, and toe discoloration. # Sepsis - 2/2 diabetic foot wound - Tachycardic, leukocytosis - bacterimic with gram negative rods Plan: - patient started on Zosyn - CRP, ESR pending - will follow final blood cultures, cultures were repeated today - IV fluids # Diabetic foot wound - Pt reports worsened pain, discharge and non-healing although goes to wound clinic regularly - has leukocytosis, afebrile Plan: - cultures collected in the ED on 09/19 grew Gram-negative rods, will start patient on Zosyn, follow final cultures, cultures were repeated will follow - MRI foot to rule out osteomyelitis - ID consult # peripheral artery disease with 4th toe discolorationA - occlusive thrombus proximal right popliteal artery found on duplex but has collateral flow - Vascular surgery was consulted yesterday and recommnded op angiogram, which was scheduled for thursday and pt was given aspirin and plavix Plan: - Vascular surgeon called again today, recommends continuing ASA and plavix, hold off on heparin drip - Will see pt during this hospital stay # Lactic acidosis - 2/2 above - will start IV fluids - trend # DM - non-compliant with insulin and reports that he has not taken any for few wks - Will start him on diabetic diet and LDSSI DVT ppx: lovenox
[2020-09-20 22:00] VITALS: BP 150/78; PULSE 98; RESP 18; TEMP 36.8; O2SAT 99
[2020-09-21] VITALS: BP 155/86; PULSE 94; RESP 20; O2SAT 98
[2020-09-21 02:09] VITALS: BP 171/84; PULSE 100; RESP 18; TEMP 37.4; O2SAT 98
[2020-09-21] MEDS: Morphine Sulfate 4 MG/ML CARTRIDGE IVPUSH ×3 (02:37→16:25)
[2020-09-21] MEDS: Piperacillin Sodium/Tazobactam 3.375 GM in 0.9 % Sodium Chloride 50 ML IV ×4 (02:38→21:05)
[2020-09-21] MEDS: Docusate Sodium 100 MG CAPSULE PO ×2 (02:38→08:24)
[2020-09-21] MEDS: Enoxaparin Sodium 40 MG/0.4 ML SYRINGE SUBCUT (02:38)
[2020-09-21] MEDS: 0.9 % Sodium Chloride Flush 3 ML SYRINGE IVFLUSH ×3 (02:39→15:33)
[2020-09-21 06:05] VITALS: BMI 29.7
[2020-09-21 06:31] LABS: MANUAL DIFF FLAG NO
[2020-09-21 06:54] LABS: Basophils Percent Auto 0.2 % (0-2); Eosinophils Absolute Auto 0.1 X10*3/uL (0.0-0.4); Eosinophils Percent Auto 0.5 % (0-4); Hematocrit 28.4 % (42-52); Hemoglobin 9.7 g/dl (14.0-18.0); Imm Gran Abs Auto 0.06 X10*3/uL (0.00-0.03); Imm Gran Pct Auto 0.5 % (0.0-0.4); Lymphocytes Absolute Auto 1.7 X10*3/uL (1.2-4.9); Lymphocytes Percent Auto 12.9 % (20-40); Mean Corpuscular HGB Conc 34.2 g/dl (31.0-36.0); Mean Corpuscular Hemoglobin 30.2 pg (27.0-33.0); Mean Corpuscular Volume 88.5 fL (80-98); Mean Platelet Volume 9.3 fL (9.4-12.4); Monocytes Absolute Auto 1.4 X10*3/uL (0.1-1.2); Monocytes Percent Auto 11.3 % (2-11); Neutrophils Absolute Auto 9.5 X10*3/uL (2.0-8.3); Neutrophils Percent Auto 74.6 % (45-73); Platelet Count 354 X10*3/uL (160-400); Red Blood Count 3.21 X10*6/uL (4.60-5.80); White Blood Count 12.8 X10*3/uL (4.8-10.8)
[2020-09-21 07:27] LABS: Anion Gap 14 (12-20); Blood Urea Nitrogen 7 mg/dL (9-16); C Reactive Protein 15.35 mg/dL (< or = 0.50); Calcium 8.1 mg/dL (8.4-10.2); Carbon Dioxide 22 mmol/L (22-29); Chloride 103 mmol/L (96-108); Estimated Glomerular Filt Rate > 60; Glucose Random 195 mg/dL (60-115); Potassium 3.7 mmol/l (3.3-5.1); Sodium 135 mmol/L (135-145)
[2020-09-21 07:41] LABS: Erythrocyte Sedimentation Rate 104 MM/HR (0-15)
[2020-09-21] MEDS: Insulin Lispro 100 UNIT/ML 3 ML VIAL SUBCUT ×4 (08:22→21:25)
[2020-09-21] MEDS: Aspirin Enteric Coated 81 MG TABLET.DR PO (08:24)
[2020-09-21] MEDS: Clopidogrel Bisulfate 75 MG TABLET PO (08:24)
--- NOTE | 2020-09-21 09:59 | MHC.CM.PN ---
Male 49 dx DM FOOT ULCER. Pt lives with friends. He uses a cane. He is sponge bathing due to foot wound. DP home with new referral for [facility]. Pt will arrange transport. Referral made to [facility] at Pts request. CM will follow.
[2020-09-21 11:30] VITALS: BP 163/95; PULSE 88; RESP 18; TEMP 36.6; O2SAT 97
[2020-09-21 11:41] LABS: Glucose, Whole Blood 226 mg/dL (60-115)
[2020-09-21 12:00] VITALS: BP 135/81; PULSE 58; RESP 18; TEMP 37.2; O2SAT 97
--- NOTE | 2020-09-21 13:26 | HO.PM.IMPN ---
Subjective Subjective Date of Service: 09/21/20 Interval History: Patient came with worsening right foot pain, has diabetic ulcer the bottom of the foot: Patient was admitted for that treatment of bacteremia. Review of Systems Constitutional: Has some foot pain otherwise not in distress. Patient denies any chest pain or shortness of breath or abdominal pain or fever or chills or any we new weakness or numbness, he says that his foot foot ulcer issues going for almost a month or so. Physical Exam Vital Signs: Vital Signs: Last Vital Signs Temp 98.9 F 09/21/20 12:00 Pulse 58 09/21/20 12:00 Resp 18 09/21/20 12:00 BP 135/81 09/21/20 12:00 Pulse Ox 97 09/21/20 12:00 Body Mass Index 29.7 Physical exam: Constitutional: Still has foot pain Cvs: rrr, [id number] , no murmur res: clear to auscultation ,no rhonchii or wheezing abd: no rebound or guarding ,nt, bs present. ext:no discharge at the ulcer area, seems mostly clean has 4th toe right side bottom pinkish -blue discoluration neuro: axo3 , nonfocal. Objective Data Current Medications Generic Name Dose Route Start Last Admin Trade Name Freq PRN Reason Stop Dose Admin Acetaminophen 650 mg 09/21/20 02:00 Acetaminophen 325 Mg Tablet PO Q6H PRN Pain, Mild (Pain Scale 1-3) Aspirin 81 mg 09/21/20 09:00 09/21/20 08:24 Aspirin Enteric Coated 81 Mg Tablet. PO 81 mg DAILY CAIT Administration Clopidogrel Bisulfate 75 mg 09/21/20 09:00 09/21/20 08:24 Clopidogrel Bisulfate 75 Mg Tablet PO 75 mg DAILY CAIT Administration Docusate Sodium 100 mg 09/21/20 02:00 09/21/20 08:24 Docusate Sodium 100 Mg Capsule PO 100 mg BID CAIT Administration Enoxaparin Sodium 40 mg 09/21/20 03:00 09/21/20 02:38 Enoxaparin Sodium 40 Mg/0.4 Ml Syringe SUBCUT 40 mg Q24H CAIT Administration Piperacillin Sod/Tazobactam 50 mls @ 100 mls/hr 09/21/20 02:00 09/21/20 09:04 Sod 3.375 gm/ Sodium Chloride IV Infused Q6H CAIT Infusion Insulin Human Lispro 0 unit 09/21/20 07:30 09/21/20 12:09 Insulin Lispro 100 Unit/Ml 3 Ml Vial SUBCUT 4 unit QIDACHS [facility] Administration Protocol Magnesium Hydroxide 30 ml 09/21/20 02:00 Milk Of Magnesia 30 Ml Oral.Susp PO DAILY PRN Constipation Morphine Sulfate 4 mg 09/21/20 02:00 09/21/20 12:09 Morphine Sulfate 4 Mg/Ml Cartridge IVPUSH 4 mg Q4H PRN Administration Pain, Severe (Pain Scale 7-10) Ondansetron HCl 4 mg 09/21/20 02:00 Ondansetron Hcl 4 Mg/2 Ml Vial IVPUSH Q8H PRN Nausea and Vomiting Pharmacy Consult 1 each 09/20/20 17:33 Consult Rx Vancomycin Dosing MISCELLANE DAILY PRN Consult order Pharmacy Consult 1 each 09/20/20 20:15 Consult Rx Vancomycin Dosing MISCELLANE DAILY PRN Consult order Sodium Chloride 3 ml 09/21/20 02:00 09/21/20 08:23 0.9 % Sodium Chloride Flush 3 Ml Syringe IVFLUSH 3 ml QSHIFT [facility] Administration Labs CBC & Chem 7: 09/21/20 06:08 09/21/20 06:08 Assessment and Plan (1) Bacteremia: Status: Acute Assessment and Plan: 49-year-old male with past medical history of diabetes who presents to the hospital with complaints of right foot pain, nonhealing wound, and toe discoloration. 1.Sepsis- 2/2 diabetic foot wound Tachycardic, leukocytosis bacterimic with gram negative rods follow final blood cultures, cultures repeat pending Continue and we fluid and Zosyn 2.Diabetic foot wound: Pt reports worsened pain, discharge and non-healing although goes to wound clinic regularly has leukocytosis, afebrile CRP 15 , ESR 104 cultures collected in the ED on 09/19 grew Gram-negative rods, will start patient on Zosyn, follow final cultures, cultures were repeated will follow MRI foot to rule out osteomyelitis ID consult 3. peripheral artery disease with 4th toe discoloration occlusive thrombus proximal right popliteal artery found on duplex but has collateral flow Vascular surgery was consulted yesterday and recommnded op angiogram, which was scheduled for thursday and pt was given aspirin and plavix As per H&P-Vascular surgeon plan-recommends continuing ASA and plavix, hold off on heparin drip 4. DM: fs 190-200 continue on diabetic diet and LDSSI
[2020-09-21 16:00] VITALS: BP 157/90; PULSE 91; RESP 18; TEMP 37.7; O2SAT 96
[2020-09-21 16:29] LABS: Glucose, Whole Blood 234 mg/dL (60-115)
[2020-09-21 19:05] VITALS: BP 136/82; PULSE 93; RESP 18; TEMP 38.2; O2SAT 95
[2020-09-21] MEDS: Acetaminophen 325 MG TABLET 650 MG PO (19:33)
[2020-09-21 21:19] LABS: Glucose, Whole Blood 194 mg/dL (60-115)
[2020-09-22] VITALS (7 sets, daily range): BP systolic 124–167; BP diastolic 76–99; PULSE 83–98; RESP 14–20; TEMP 37–38.2; O2SAT 95–99; BMI 29.2
[2020-09-22] MEDS: Morphine Sulfate 4 MG/ML CARTRIDGE IVPUSH ×3 (00:15→14:21)
[2020-09-22] MEDS: 0.9 % Sodium Chloride Flush 3 ML SYRINGE IVFLUSH ×4 (00:15→21:23)
[2020-09-22] MEDS: Piperacillin Sodium/Tazobactam 3.375 GM in 0.9 % Sodium Chloride 50 ML IV ×4 (02:31→20:48)
[2020-09-22] MEDS: Enoxaparin Sodium 40 MG/0.4 ML SYRINGE SUBCUT (02:37)
[2020-09-22 06:58] LABS: Hematocrit 29.5 % (42-52); Mean Corpuscular HGB Conc 33.9 g/dl (31.0-36.0); Mean Corpuscular Hemoglobin 30.5 pg (27.0-33.0); Mean Corpuscular Volume 89.9 fL (80-98); Mean Platelet Volume 9.1 fL (9.4-12.4); Platelet Count 345 X10*3/uL (160-400); Red Blood Count 3.28 X10*6/uL (4.60-5.80); Red Cell Distribution Width 11.9 % (11.0-16.0); White Blood Count 13.6 X10*3/uL (4.8-10.8)
[2020-09-22 07:28] LABS: Anion Gap 12 (12-20); Blood Urea Nitrogen 10 mg/dL (9-16); Calcium 8.3 mg/dL (8.4-10.2); Carbon Dioxide 26 mmol/L (22-29); Chloride 100 mmol/L (96-108); Creatinine Clr Calc Pharmacy 118.8; Estimated Glomerular Filt Rate > 60; Glucose Random 281 mg/dL (60-115); Potassium 3.7 mmol/l (3.3-5.1); Sodium 134 mmol/L (135-145)
[2020-09-22 07:42] LABS: Glucose, Whole Blood 238 mg/dL (60-115)
[2020-09-22] MEDS: Aspirin Enteric Coated 81 MG TABLET.DR PO (08:28)
[2020-09-22] MEDS: Clopidogrel Bisulfate 75 MG TABLET PO (08:28)
[2020-09-22] MEDS: Insulin Lispro 100 UNIT/ML 3 ML VIAL SUBCUT ×4 (08:28→20:49)
[2020-09-22 11:48] LABS: Glucose, Whole Blood 219 mg/dL (60-115)
--- NOTE | 2020-09-22 14:43 | PC.NURSE ---
fight foot,4th toe dark colored. non pitting edema. also right calf pain increased. Dr Neal aware pain meds adjusted. Pedal pulse strong with doppler.
[2020-09-22 16:24] LABS: Glucose, Whole Blood 258 mg/dL (60-115)
--- NOTE | 2020-09-22 16:37 | W.PM.IDCN ---
History of Present Illness Data of Consult Service Date: 09/22/20 Requesting physician: Trenton Neal Primary Care Provider: Xiao rOtiz NP [facility] Reason for consult: diabetic foot infection right foot He was asked to come to hospital for positive blood cultures Blood culture bacteroides He reports more pain over foot and is seeing Vascular for popliteal occlusion He has longstanding poor flow over foot and ischemic ulcer laterally He has no fever and chills and feels same This above is the correct picture Below is in error this picture above is in error Review of Systems Review of Systems: Yes all other systems are reviewed and are negative [facility] Past Medical History Medical History Diabetes PAD (peripheral artery disease) Social History Social History Household Members: Significant Other Housing: House Do you presently have visiting nurse or other home services: No Alcohol intake: never Smoking Status: Current every day smoker Tobacco Type: Cigarette Years Smoked: 30 Smoked in Last 30 Days: Yes Smoking Quit Date: 2 DAYS AGO Patient Interested in Nicotine Replacement: No Patient Given Instructions on How to Stop Smoking: Yes Date Education Initiated: 09/21/20 Second Hand Smoke Exposure: No Use of substances other than those prescribed or required for medical reasons: No Currently Displaying Signs/Symptoms of Drug Intoxication Withdrawal: No Have you been hit, kicked, punched, or otherwise hurt by someone within the past year? If so, by whom?: No Do you feel safe in your current relationship?: Yes Is there a partner from a previous relationship who is making you feel unsafe now?: No Are you made to feel afraid or neglected: No Advance Directives: No Advance Directives Information Provided: Yes Do you have thoughts of harming others: None Do you have a plan to hurt others: No Plan Recently lost weight without trying: No service: No Current occupational status: employed Meds Allergies Allergy/AdvReac Type Severity Reaction Status Date / Time No Known Allergies Allergy Verified 09/20/20 13:55 Home Medications Medication Instructions Recorded Confirmed Type cephalexin 500 mg capsule 500 mg PO TID 09/20/20 09/20/20 History doxycycline hyclate 100 mg tablet 100 mg PO BID 09/20/20 09/20/20 History ibuprofen 800 mg tablet 800 mg PO Q8H PRN 09/20/20 09/20/20 History tramadol 50 mg tablet 50 mg PO QID PRN 09/20/20 09/20/20 History Physical Exam Vital Signs: Vital Signs: Last Vital Signs Temp 99.0 F 09/22/20 15:26 Pulse 88 09/22/20 15:26 Resp 20 09/22/20 15:26 BP 163/93 H 09/22/20 15:26 Pulse Ox 95 09/22/20 15:26 Body Mass Index 29.2 Const: General: cooperative HENMT: Head: Yes normal to inspection Mouth: Normal oral and palatal mucosa present Resp: Effort & Inspection: normal respiratory effort Cardio: Rate: regular rate Rhythm: regular rhythm GI: Palpation (GI): Soft to palpation and nontender Auscultation: normal bowel sounds : General: Yes no CVA tenderness Back/Spine/Pelvis: Back: no CVA tenderness Skin: General skin exam: no rashes or lesions noted Extrem: Ankle/foot/toe images: 1. area of darkness Assessment and Plan (1) Diabetic foot ulcer: Qualifiers: Diabetes mellitus type: type 1 Diabetic foot ulcer location: midfoot Laterality: right Non-pressure ulcer stage: unspecified non-pressure ulcer stage Qualified Code(s): E10.621 - Type 1 diabetes mellitus with foot ulcer; L97.419 - Non-pressure chronic ulcer of right heel and midfoot with unspecified severity Status: Acute (2) PAD (peripheral artery disease): Status: Acute (3) Bacteremia: Problem details: Likely bacteroides from necrotic tissue,can be contaminant There is concern over osteomyelitis Status: Acute Continue Zosyn Await MRI Vascualar following If no osteomyelitis Augmentin for 2 weeks Results Labs CBC & Chem 7: 09/22/20 06:24 09/22/20 06:24 Labs: Short CBC 09/22/20 Range/Units 06:24 WBC 13.6 H (4.8-10.8) X10*3/uL Hgb 10.0 L (14.0-18.0) g/dl Hct 29.5 L (42-52) % Plt Count 345 (160-400) X10*3/uL BMP 09/22/20 06:24 Sodium 134 L Potassium 3.7 Chloride 100 Carbon Dioxide 26 BUN 10 Creatinine 0.80 Calcium 8.3 L Microbiology Microbiology Results: Microbiology 09/20/20 17:47 Blood - Venous Blood Culture - Preliminary 09/20/20 17:47 Blood - Venous Blood Culture - Preliminary
[2020-09-22] MEDS: oxyCODONE HCl Immed Release 5 MG TABLET PO (16:40)
--- NOTE | 2020-09-22 18:22 | P.PNIM_ITS ---
Subjective Subjective Date of Service: 09/22/20 Interval History: Seen in f/u for worsening right foot pain, has diabetic foot ulcer at the bottom of theright foot. He has pain in the foot and leg Review of Systems Gen: no fever Resp: no sob, no cough CV: no chest, no TRIPLETT, no leg edema GI: No n/v, no abd pain Musk Sk pain in the right foot Neuro: No confusion Physical Exam Vital Signs: Vital Signs: Last Vital Signs Temp 99.0 F 09/22/20 15: Pulse 88 09/22/20 15:26 Resp 20 09/22/20 15: BP 163/93 H 09/22/20 15: Pulse Ox 95 09/22/20 15: Body Mass Index 29.2 General: AO X 3, no acute distress Resp: CTA bilateral CVS: S1,S2,RRR GI: +BS, NT, no distention Skin: No rash, has ulcer at bootom of right foot Neuro: motor grossly intact Psych: appropriate affect Objective Data Current Medications Generic Name Dose Route Start Last Admin Trade Name Елена PRN Reason Stop Dose Admin Acetaminophen 650 mg 09/21/20 02:00 09/21/20 19:33 Acetaminophen 325 Mg Tablet PO 650 mg Q6H PRN Administration Pain, Mild (Pain Scale 1-3) Aspirin 81 mg 09/21/20 09:00 09/22/20 08:28 Aspirin Enteric Coated 81 Mg Tablet.Dr PO 81 mg DAILY CAIT Administration Clopidogrel Bisulfate 75 mg 09/21/20 09:00 09/22/20 08:28 Clopidogrel Bisulfate 75 Mg Tablet PO 75 mg DAILY CAIT Administration Docusate Sodium 100 mg 09/21/20 02:00 09/22/20 08:30 Docusate Sodium 100 Mg Capsule PO Not Given BID CAIT Enoxaparin Sodium 40 mg 09/21/20 03:00 09/22/20 02:37 Enoxaparin Sodium 40 Mg/0.4 Ml Syringe SUBCUT 40 mg Q24H CAIT Administration Piperacillin Sod/Tazobactam 50 mls @ 100 mls/hr 09/21/20 02:00 09/22/20 14:16 Sod 3.375 gm/ Sodium Chloride IV Infused Q6H CAIT Infusion Insulin Human Lispro 0 unit 09/21/20 07:30 09/22/20 16:39 Insulin Lispro 100 Unit/Ml 3 Ml Vial SUBCUT 6 unit QIDACHS [facility] Administration Protocol Magnesium Hydroxide 30 ml 09/21/20 02:00 Milk Of Magnesia 30 Ml Oral.Susp PO DAILY PRN Constipation Morphine Sulfate 4 mg 09/21/20 02:00 09/22/20 14:21 Morphine Sulfate 4 Mg/Ml Cartridge IVPUSH 4 mg Q4H PRN Administration Pain, Severe (Pain Scale 7-10) Ondansetron HCl 4 mg 09/21/20 02:00 Ondansetron Hcl 4 Mg/2 Ml Vial IVPUSH Q8H PRN Nausea and Vomiting Oxycodone HCl 5 mg 09/22/20 13:56 09/22/20 16:40 Oxycodone Hcl Immed Release 5 Mg Tablet PO 5 mg Q6H PRN Administration Pain, Moderate (Pain Scale 4-6 Pharmacy Consult 1 each 09/20/20 17:33 Consult Rx Vancomycin Dosing MISCELLANE DAILY PRN Consult order Pharmacy Consult 1 each 09/20/20 20:15 Consult Rx Vancomycin Dosing MISCELLANE DAILY PRN Consult order Sodium Chloride 3 ml 09/21/20 02:00 09/22/20 16:40 0.9 % Sodium Chloride Flush 3 Ml Syringe IVFLUSH 3 ml QSHIFT [facility] Administration Labs CBC & Chem 7: 09/22/20 06:24 09/22/20 06:24 Microbiology Microbiology Results: Microbiology 09/20/20 17:47 Blood - Venous Blood Culture - Preliminary 09/20/20 17:47 Blood - Venous Blood Culture - Preliminary Assessment and Plan (1) Bacteremia: Problem details: Likely bacteroides from necrotic tissue,can be contaminant There is concern over osteomyelitis Status: Acute Assessment and Plan: 49-year-old male with past medical history of diabetes who presents to the hospital with complaints of right foot pain, nonhealing wound, and toe discoloration. 1.Sepsis- 2/2 diabetic foot wound bacteremia with bacteriodes -currnetly on Zosyn -Add Flagyl -MRI to r/o osteo 2. peripheral artery disease with 4th toe discoloration occlusive thrombus proximal right popliteal artery found on duplex but has collateral flow Vascular surgery is planning outpatient angiogram on 09/27, to continue ASA, plavix 3. DM: f continue on diabetic diet and LDSSI
[2020-09-22 20:22] LABS: Glucose, Whole Blood 231 mg/dL (60-115)
[2020-09-22] MEDS: Docusate Sodium 100 MG CAPSULE PO (20:49)
[2020-09-23] MEDS: Morphine Sulfate 4 MG/ML CARTRIDGE IVPUSH ×3 (01:04→18:12)
[2020-09-23] MEDS: Piperacillin Sodium/Tazobactam 3.375 GM in 0.9 % Sodium Chloride 50 ML IV ×4 (01:05→20:05)
[2020-09-23 03:16] VITALS: BP 158/88; PULSE 84; RESP 16; TEMP 36.9; O2SAT 96
[2020-09-23] MEDS: oxyCODONE HCl Immed Release 5 MG TABLET PO ×2 (03:45→14:35)
[2020-09-23] MEDS: Enoxaparin Sodium 40 MG/0.4 ML SYRINGE SUBCUT (03:46)
[2020-09-23 06:00] VITALS: BMI 29.2
[2020-09-23 07:37] VITALS: BP 166/94; PULSE 84; RESP 18; TEMP 36.9; O2SAT 99
[2020-09-23 08:33] LABS: Glucose, Whole Blood 235 mg/dL (60-115)
[2020-09-23] MEDS: Insulin Lispro 100 UNIT/ML 3 ML VIAL SUBCUT ×4 (09:15→21:12)
[2020-09-23] MEDS: Docusate Sodium 100 MG CAPSULE PO ×2 (09:15→20:07)
[2020-09-23] MEDS: 0.9 % Sodium Chloride Flush 3 ML SYRINGE IVFLUSH ×3 (09:15→21:14)
[2020-09-23] MEDS: Clopidogrel Bisulfate 75 MG TABLET PO (09:15)
[2020-09-23] MEDS: Aspirin Enteric Coated 81 MG TABLET.DR PO (09:15)
--- NOTE | 2020-09-23 11:40 | PM.EVENT ---
Event Note Date of Service: 09/23/20 Event Note: Events noted. Will attempt to get in for angiogram tomorrow. Thank you
[2020-09-23 11:41] LABS: Glucose, Whole Blood 299 mg/dL (60-115)
[2020-09-23 12:00] VITALS: BP 165/89; PULSE 88; RESP 18; TEMP 37.2; O2SAT 97
--- NOTE | 2020-09-23 15:08 | HO.PM.IMPN ---
Subjective Subjective Date of Service: 09/23/20 Interval History: Seen in f/u for worsening right foot pain, has diabetic foot ulcer at the bottom of the right foot. He has pain in the foot and leg Review of Systems Gen: no fever Resp: no sob, no cough CV: no chest, no TRIPLETT, no leg edema GI: No n/v, no abd pain Musk Sk pain in the right foot Neuro: No confusion Physical Exam Vital Signs: Vital Signs: Last Vital Signs Temp 99.0 F 09/23/20 12:00 Pulse 88 09/23/20 12:00 Resp 18 09/23/20 12:00 BP 165/89 H 09/23/20 12:00 Pulse Ox 97 09/23/20 12:00 Body Mass Index 29.2 Objective Data Current Medications Generic Name Dose Route Start Last Admin Trade Name Freq PRN Reason Stop Dose Admin Acetaminophen 650 mg 09/21/20 02:00 09/21/20 19:33 Acetaminophen 325 Mg Tablet PO 650 mg Q6H PRN Administration Pain, Mild (Pain Scale 1-3) Aspirin 81 mg 09/21/20 09:00 09/23/20 09:15 Aspirin Enteric Coated 81 Mg Tablet.Dr PO 81 mg DAILY CAIT Administration Clopidogrel Bisulfate 75 mg 09/21/20 09:00 09/23/20 09:15 Clopidogrel Bisulfate 75 Mg Tablet PO 75 mg DAILY CAIT Administration Docusate Sodium 100 mg 09/21/20 02:00 09/23/20 09:15 Docusate Sodium 100 Mg Capsule PO 100 mg BID CAIT Administration Enoxaparin Sodium 40 mg 09/21/20 03:00 09/23/20 03:46 Enoxaparin Sodium 40 Mg/0.4 Ml Syringe SUBCUT 40 mg Q24H CAIT Administration Piperacillin Sod/Tazobactam 50 mls @ 100 mls/hr 09/21/20 02:00 09/23/20 14:35 Sod 3.375 gm/ Sodium Chloride IV 100 mls/hr Q6H CAIT Administration Insulin Human Lispro 0 unit 09/21/20 07:30 09/23/20 12:26 Insulin Lispro 100 Unit/Ml 3 Ml Vial SUBCUT 6 unit QIDACHS [facility] Administration Protocol Magnesium Hydroxide 30 ml 09/21/20 02:00 Milk Of Magnesia 30 Ml Oral.Susp PO DAILY PRN Constipation Morphine Sulfate 4 mg 09/21/20 02:00 09/23/20 09:14 Morphine Sulfate 4 Mg/Ml Cartridge IVPUSH 4 mg Q4H PRN Administration Pain, Severe (Pain Scale 7-10) Ondansetron HCl 4 mg 09/21/20 02:00 Ondansetron Hcl 4 Mg/2 Ml Vial IVPUSH Q8H PRN Nausea and Vomiting Oxycodone HCl 5 mg 09/22/20 13:56 09/23/20 14:35 Oxycodone Hcl Immed Release 5 Mg Tablet PO 5 mg Q6H PRN Administration Pain, Moderate (Pain Scale 4-6 Pharmacy Consult 1 each 09/20/20 17:33 Consult Rx Vancomycin Dosing MISCELLANE DAILY PRN Consult order Pharmacy Consult 1 each 09/20/20 20:15 Consult Rx Vancomycin Dosing MISCELLANE DAILY PRN Consult order Sodium Chloride 3 ml 09/21/20 02:00 09/23/20 09:15 0.9 % Sodium Chloride Flush 3 Ml Syringe IVFLUSH 3 ml QSHIFT [facility] Administration Labs CBC & Chem 7: 09/22/20 06:24 09/22/20 06:24 Microbiology Microbiology Results: Microbiology 09/20/20 17:47 Blood - Venous Blood Culture - Final Bacteroides fragilis 09/20/20 17:47 Blood - Venous Blood Culture - Final Bacteroides fragilis Assessment and Plan (1) Bacteremia: Problem details: Likely bacteroides from necrotic tissue,can be contaminant There is concern over osteomyelitis Status: Acute Assessment and Plan: 49-year-old male with past medical history of diabetes who presents to the hospital with complaints of right foot pain, nonhealing wound, and toe discoloration. 1.Sepsis- 2/2 diabetic foot wound bacteremia with bacteriodes -currnetly on Zosyn -Add Flagyl -MRI to is planned for 09/24/20 and if Negative then ID recommend Oral Augmentin for 2 weeks 2. peripheral artery disease with 4th toe discoloration occlusive thrombus proximal right popliteal artery found on duplex but has collateral flow Vascular surgery is planning outpatient angiogram on 09/27, to continue ASA, plavix 3. DM: f continue on diabetic diet and LDSSI
[2020-09-23 15:37] VITALS: BP 163/82; PULSE 89; RESP 20; TEMP 36.8; O2SAT 98
[2020-09-23 18:22] LABS: Glucose, Whole Blood 239 mg/dL (60-115)
[2020-09-23 19:06] VITALS: BP 176/94; PULSE 92; RESP 17; TEMP 37; O2SAT 97
[2020-09-23 21:05] LABS: Glucose, Whole Blood 255 mg/dL (60-115)
[2020-09-23 23:25] VITALS: BP 147/74; PULSE 85; RESP 17; TEMP 36.9; O2SAT 97
--- NOTE | 2020-09-24 02:00 | MR_ITS ---
EXAMINATION: MRI OF THE RIGHT FOOT WITH AND WITHOUT CONTRAST CLINICAL INFORMATION: Diabetic foot wound. Rule out osteomyelitis. COMPARISON: Radiographs dated 09/19/2020. TECHNIQUE: Multiplanar MR imaging was obtained through the right foot on a 1.5 Fartun magnet before and after intravenous administration. A total of 8.5 mL Gadavist was administered. FINDINGS: There is a soft tissue wound at the plantar margin of the 4th metatarsal head measuring approximately 2.5 x 2.5 cm in area, extending to the depth of the underlying bone. There is heterogeneous fluid signal throughout the 4th MTP joint. There is heterogeneous increased T2 signal within the 4th metatarsal at the level of the distal shaft and head with loss of normal signal intensity on T2-weighted images. The serpiginous trabecular signal abnormality throughout the 4th metatarsal shaft is consistent with chronic avascular necrosis. Superimposed osteomyelitis is suspected at the metatarsal head, though sensitivity and specificity are somewhat limited by the absence of enhancement. The absence of enhancement is likely due to devascularization of this portion of the bone. Similarly, there is marked edema signal within the 4th toe proximal phalangeal base with patchy loss of normal signal intensity on T1-weighted images and no significant enhancement on postcontrast images. A combination of AVN and osteomyelitis is suspected. The collection at the 4th MTP joint also propagates medially within the soft tissues along the adductor hallucis muscle. This collection measures 2.5 x 0.8 x 1.2 cm and is most consistent with an abscess. A 2 x 0.8 x 0.7 cm abscess also propagates proximally along the interosseous muscles between the 4th and 5th metatarsal shafts. Peripheral enhancing fluid extends proximally along the fourth toe flexor tendon sheath to the level of the tarsometatarsal joints, most consistent with septic tenosynovitis. Additional proximal extension into the hindfoot and ankle cannot be excluded. The musculature is diffusely edematous on T2-weighted images with mild hyperenhancement as well as fatty replacement. MR/MR foot RT wo/w con IMPRESSION: Skin ulceration at the plantar aspect of the fourth metatarsal head extends to the depth of bone with associated septic arthritis at the fourth MTP joint and to separate loculated abscesses. Abnormal marrow signal within the fourth metatarsal head and shaft as well as the fourth toe proximal phalangeal base, most consistent with osteonecrosis. Superimposed osteomyelitis is likely present at the fourth metatarsal head and proximal phalangeal base as well. Septic tenosynovitis at the fourth toe flexor tendons extending to the level of the tarsometatarsal joints PA
[2020-09-24] MEDS: Enoxaparin Sodium 40 MG/0.4 ML SYRINGE SUBCUT (02:18)
[2020-09-24] MEDS: Piperacillin Sodium/Tazobactam 3.375 GM in 0.9 % Sodium Chloride 50 ML IV ×4 (02:18→21:03)
[2020-09-24] MEDS: ondansetron HCL 4 MG/2 ML VIAL IVPUSH (02:21)
[2020-09-24 02:59] VITALS: BP 158/97; PULSE 90; RESP 19; TEMP 36.7; O2SAT 94
[2020-09-24 06:00] VITALS: BMI 29.2
[2020-09-24 07:37] VITALS: BP 165/94; PULSE 87; RESP 22; TEMP 36.9; O2SAT 97
[2020-09-24] MEDS: 0.9 % Sodium Chloride Flush 3 ML SYRINGE IVFLUSH ×3 (08:03→23:54)
[2020-09-24] MEDS: Clopidogrel Bisulfate 75 MG TABLET PO (08:03)
[2020-09-24] MEDS: Morphine Sulfate 4 MG/ML CARTRIDGE IVPUSH ×3 (08:03→18:35)
[2020-09-24] MEDS: Aspirin Enteric Coated 81 MG TABLET.DR PO (08:03)
[2020-09-24 08:21] LABS: Glucose, Whole Blood 244 mg/dL (60-115)
--- NOTE | 2020-09-24 09:09 | P.PNIM_ITS ---
Subjective Subjective Date of Service: 09/24/20 Interval History: Seen in f/u for worsening right foot pain, has diabetic foot ulcer at the bottom of the right foot. He has pain in the foot and leg Review of Systems Gen: no fever Resp: no sob, no cough CV: no chest, no TRIPLETT, no leg edema GI: No n/v, no abd pain Musk Sk pain in the right foot Neuro: No confusion Physical Exam Vital Signs: Vital Signs: Last Vital Signs Temp 98.4 F 09/24/20 07:37 Pulse 87 09/24/20 07:37 Resp 22 H 09/24/20 07:37 BP 165/94 H 09/24/20 07:37 Pulse Ox 97 09/24/20 07:37 Body Mass Index 29.2 Const: Other: General: AO X 3, no acute distress Resp: CTA bilateral CVS: S1,S2,RRR GI: +BS, NT, no distention Skin: ulcer at sole or right foot some discolaraion foot chronic Neuro: motor grossly intact Psych: appropriate affect Objective Data Current Medications Generic Name Dose Route Start Last Admin Trade Name Freq PRN Reason Stop Dose Admin Acetaminophen 650 mg 09/21/20 02:00 09/21/20 19:33 Acetaminophen 325 Mg Tablet PO 650 mg Q6H PRN Administration Pain, Mild (Pain Scale 1-3) Aspirin 81 mg 09/21/20 09:00 09/24/20 08:03 Aspirin Enteric Coated 81 Mg Tablet.Dr PO 81 mg DAILY CAIT Administration Clopidogrel Bisulfate 75 mg 09/21/20 09:00 09/24/20 08:03 Clopidogrel Bisulfate 75 Mg Tablet PO 75 mg DAILY CAIT Administration Docusate Sodium 100 mg 09/21/20 02:00 09/24/20 08:18 Docusate Sodium 100 Mg Capsule PO Not Given BID CAIT Enoxaparin Sodium 40 mg 09/21/20 03:00 09/24/20 02:18 Enoxaparin Sodium 40 Mg/0.4 Ml Syringe SUBCUT 40 mg Q24H CAIT Administration Piperacillin Sod/Tazobactam 50 mls @ 100 mls/hr 09/21/20 02:00 09/24/20 08:43 Sod 3.375 gm/ Sodium Chloride IV Infused Q6H CAIT Infusion Insulin Human Lispro 0 unit 09/21/20 07:30 09/24/20 08:04 Insulin Lispro 100 Unit/Ml 3 Ml Vial SUBCUT [facility] Protocol Magnesium Hydroxide 30 ml 09/21/20 02:00 Milk Of Magnesia 30 Ml Oral.Susp PO DAILY PRN Constipation Morphine Sulfate 4 mg 09/21/20 02:00 09/24/20 08:03 Morphine Sulfate 4 Mg/Ml Cartridge IVPUSH 4 mg Q4H PRN Administration Pain, Severe (Pain Scale 7-10) Ondansetron HCl 4 mg 09/21/20 02:00 09/24/20 02:21 Ondansetron Hcl 4 Mg/2 Ml Vial IVPUSH 4 mg Q8H PRN Administration Nausea and Vomiting Oxycodone HCl 5 mg 09/22/20 13:56 09/23/20 14:35 Oxycodone Hcl Immed Release 5 Mg Tablet PO 5 mg Q6H PRN Administration Pain, Moderate (Pain Scale 4-6 Pharmacy Consult 1 each 09/20/20 17:33 Consult Rx Vancomycin Dosing MISCELLANE DAILY PRN Consult order Pharmacy Consult 1 each 09/20/20 20:15 Consult Rx Vancomycin Dosing MISCELLANE DAILY PRN Consult order Sodium Chloride 3 ml 09/21/20 02:00 09/24/20 08:03 0.9 % Sodium Chloride Flush 3 Ml Syringe IVFLUSH 3 ml QSRIFT [facility] Administration Labs CBC & Chem 7: 09/22/20 06:24 09/22/20 06:24 Microbiology Microbiology Results: Microbiology 09/20/20 17:47 Blood - Venous Blood Culture - Final Bacteroides fragilis 09/20/20 17:47 Blood - Venous Blood Culture - Final Bacteroides fragilis Assessment and Plan (1) Bacteremia: Problem details: Likely bacteroides from necrotic tissue,can be contaminant There is concern over osteomyelitis Status: Acute Assessment and Plan: 49-year-old male with past medical history of diabetes who presents to the hospital with complaints of right foot pain, nonhealing wound, and toe discoloration. 1.Sepsis- 2/2 diabetic foot wound bacteremia with bacteriodes -currnetly on Zosyn -Add Flagyl -MRI to is planned for 09/24/20 and if Negative then ID recommend Oral Augmentin for 2 weeks--Need to discuss with ID in light of bacteriodes 2. peripheral artery disease with 4th toe discoloration occlusive thrombus proximal right popliteal artery found on duplex but has collateral flow Vascular surgery is planning outpatient angiogram on 09/27, to continue ASA, plavix 3. DM: f continue on diabetic diet and LDSSI
[2020-09-24] MEDS: metroNIDAZOLE/NS 500 MG/100 ML PIGGYBACK 100 MG IV ×2 (10:16→17:37)
[2020-09-24 11:24] LABS: Glucose Urine UA NEG (NEG); Leukocyte Esterase Urine NEG (NEG); Nitrite Urine NEG (NEG); Specific Gravity - Urine 1.025 (1.005-1.025); Urine Blood TRACE (NEG); Urine Ketones 40 MG/DL (NEG); Urine Protein 2+ MG/DL (NEG-TRACE)
[2020-09-24 11:25] LABS: Appearance Urine CLEAR; Color Urine YELLOW
[2020-09-24 11:31] VITALS: BP 152/80; PULSE 84; RESP 18; TEMP 36.4; O2SAT 97
[2020-09-24 11:42] LABS: WBC Urine 0-2 /HPF (0-4)
[2020-09-24 11:43] LABS: RBC Urine 0-2 /HPF (0); Squamous Epithelial Cell Urine TRACE /LPF
--- NOTE | 2020-09-24 11:46 | P.EN_ITS ---
Event Note Date of Service: 09/24/20 Event Note: Full consult dictated. Angiogram delayed till tomorrow as interve ntional suite could not accommodate today.
--- NOTE | 2020-09-24 11:46 | PM.EVENT ---
Event Note Date of Service: 09/24/20 Event Note: Full consult dictated. Angiogram delayed till tomorrow as interventional suite could not accommodate today.
[2020-09-24 12:05] LABS: Glucose, Whole Blood 218 mg/dL (60-115)
--- NOTE | 2020-09-24 12:33 | MHC.CM.PN ---
DP to home with PO ABX if MRI negative for Osteo. MRI scheduled for tomorrow. IR unable to accommodate today. [facility] will see Pt at home for home care services . Wound management and education will be provided. CM will follow.
[2020-09-24] MEDS: Insulin Lispro 100 UNIT/ML 3 ML VIAL SUBCUT ×3 (13:12→21:18)
[2020-09-24 16:00] VITALS: BP 197/110; PULSE 106; RESP 18; TEMP 37.3; O2SAT 95
[2020-09-24 16:48] LABS: Glucose, Whole Blood 253 mg/dL (60-115)
[2020-09-24 17:49] VITALS: BP 194/97; PULSE 108
[2020-09-24] MEDS: Acetaminophen 325 MG TABLET 650 MG PO (17:56)
[2020-09-24] MEDS: amLODIPine Besylate 5 MG TABLET PO (18:41)
--- NOTE | 2020-09-24 19:22 | CONS_ITS ---
DATE OF SERVICE: 09/24/2020 REASON FOR CONSULTATION: Nonhealing right lower extremity ulcer. HISTORY OF PRESENT ILLNESS: A 49-year-old gentleman, actually known to me from a prior hospital visit, has had a nonhealing right lower extremity ulcer. He had actually been seen at [facility] on 2 to 3 separate occasions in the emergency room, subsequently discharged. He was more recently seen in our emergency room prior to this visit, at that time, his foot was viable, appeared to be reasonably intact. At that time, cultures were drawn. He was subsequently discharged from the emergency room, brought back for positive blood cultures, which had gram-negative rods. He was subsequently admitted for evaluation and treatment. Of note, he had a prior duplex scan which showed occlusive thrombus of the right popliteal artery. He now presents to us for vascular evaluation. PAST MEDICAL HISTORY: Significant for diabetes and peripheral artery disease. PAST SURGICAL HISTORY: None significant. MEDICATIONS: Medication list was reviewed per nursing MAR. ALLERGIES: ARE HE HAS NO KNOWN DRUG ALLERGIES. SOCIAL HISTORY: Nondrinker. He smokes approximately a pack a day. Denies any IV drug abuse. REVIEW OF SYSTEMS: 13-point review at the current time denies any headache, dizziness, nausea, vomiting, diarrhea, or shortness of breath. The rest of 13-point review was essentially negative. PHYSICAL EXAMINATION: GENERAL: Afebrile. VITAL SIGNS: Stable. HEAD AND NECK: Demonstrates no bruits. CHEST: Moving air bilaterally. CARDIAC: Positive S1-S2. ABDOMEN: Soft. EXTREMITIES: Upper extremities have good radial and ulnar pulses. Lower extremities, warm with good capillary refill. Right lower extremity toe discolored, cool to touch. Motor and sensation were intact. NEUROLOGIC: II through XII grossly intact. PSYCH: Mood and affect appear within normal limits. IMPRESSION: Nonhealing right lower extremity diabetic foot ulcer. In addition, he is known to have arterial insufficiency. We will schedule for angiogram. He was initially scheduled for angiogram for today. Interventional suite was unable to accommodate. I discussed this with the patient and we will plan for intervention for tomorrow. Risks, benefits, and complications of right lower extremity angiogram were discussed in detail with the patient, the patient understood and consented. MD KAYLYN Martell/MARÍA / [phone]
[2020-09-24 19:38] VITALS: BP 151/89; PULSE 103; RESP 20; TEMP 37; O2SAT 96
[2020-09-24] MEDS: Docusate Sodium 100 MG CAPSULE PO (21:03)
[2020-09-24 21:16] LABS: Glucose, Whole Blood 185 mg/dL (60-115)
[2020-09-25] VITALS (13 sets, daily range): BP systolic 135–182; BP diastolic 68–101; PULSE 76–105; RESP 14–21; TEMP 36.6–37.1; O2SAT 96–100; BMI 28.5
[2020-09-25] MEDS: Piperacillin Sodium/Tazobactam 3.375 GM in 0.9 % Sodium Chloride 50 ML IV ×3 (02:21→21:12)
[2020-09-25] MEDS: metroNIDAZOLE/NS 500 MG/100 ML PIGGYBACK 100 MG IV ×2 (02:55→18:01)
[2020-09-25] MEDS: Enoxaparin Sodium 40 MG/0.4 ML SYRINGE SUBCUT (02:59)
[2020-09-25 07:23] LABS: Glucose, Whole Blood 219 mg/dL (60-115)
[2020-09-25 07:34] LABS: Glucose, Whole Blood 238 mg/dL (60-115)
[2020-09-25] MEDS: Lidocaine HCl 1 % MPF 5 ML VIAL 10 ML SUBCUT (10:15)
[2020-09-25] MEDS: iohexoL 300 MG/ML 50 ML INFUS..BTL IV (10:17)
[2020-09-25] MEDS: iohexoL 300 MG/ML 100 ML INFUS..BTL IV (10:18)
--- NOTE | 2020-09-25 11:13 | OP_ITS ---
SURGEON: Bebeto Hammer MD INDICATIONS: Irving is a 49-year-old gentleman, history of nonhealing ulcer. He presented to the emergency room, it was noted on ultrasound to have an occlusion on the right lower extremity. He now presents for endovascular intervention. Risks, benefits, and complications were discussed in detail with the patient. He understood and consented. PREOPERATIVE DIAGNOSIS: POSTOPERATIVE DIAGNOSIS: PROCEDURE PERFORMED: ESTIMATED BLOOD LOSS: Minimal. COMPLICATIONS: ANESTHESIA: Local with moderate conscious sedation for a total of 40 minutes performed by me. ASSISTANTS: SPECIMENS: None. PREPROCEDURE DIAGNOSES: 1. Atherosclerosis with right lower extremity ischemia. 2. Nonhealing ulcer. POSTPROCEDURE DIAGNOSES: 1. Atherosclerosis with right lower extremity ischemia. 2. Nonhealing ulcer. PROCEDURES PERFORMED: 1. Ultrasound-guided left common femoral access. 2. Aortogram with right lower extremity runoff. 3. Plasty of right popliteal artery. DESCRIPTION OF PROCEDURE: The patient was brought to the angiography suite, prior to which a time-out was called for patient identification and site verification. Bilateral groins were prepped and draped in standard surgical fashion. Under ultrasound guidance, left common femoral was accessed with micropuncture needle, wire, and subsequently 4-Indonesian sheath. Flush catheter was brought up to the level of the aorta. Aortogram was then undertaken, brought down to the iliacs. Iliacs were subsequently imaged and then the catheter was brought up and over into the right side. Once in appropriate position, the catheter was parked into the right SFA, runoff study was then undertaken. At this point, occlusion was noted in the P1 segment of the popliteal. 5000 units of systemic heparin was administered. Up and over 6-Indonesian sheath was then placed. Wire was brought through the occlusion and this area was traversed with a NaviCross catheter. We ensured true lumen by instilling contrast. Once this was accomplished, we readvanced the wire. The occluded area was plastied first with a 5 x 40 balloon and subsequently, we plastied this area with a 5 x 60 Medtronic drug-coated balloon. This was brought into position in under 3 minutes and insufflated for a total of 3 minutes. Once this was done, excellent result was achieved. Catheter, wire, sheath were brought back to the ipsilateral side. StarClose closure device was deployed. At the end of the case, sponge, needle, and instrument counts were correct. The patient tolerated the procedure well, returned to Recovery with stable vitals. INTERPRETATION OF FILMS: 1. Aortogram demonstrated normal-caliber aorta, appropriate take-off the renals. 2. Iliacs appeared completely normal. No significant tortuosity. 3. Right lower extremity appropriate take-off the profunda, SFA was patent all the way down to the mid to distal portion. It appeared to be a chronic occlusion as there was collaterals and then there was essentially mainly a 2-vessel runoff peroneal and posterior tibial, anterior tibial was tenuous and best. Postprocedure angio demonstrated excellent flow through the SFA and popliteal. CONCLUSION: Successful plasty of right popliteal artery. The patient will require 6 months of aspirin and Plavix due to the use of drug-coated balloon. DRAINS: None. MD KAYLYN Martell/MARÍA / [phone]
--- NOTE | 2020-09-25 11:40 | HO.PM.IMPN ---
Subjective Subjective Date of Service: 09/26/20 Interval History: Seen in f/u for worsening right foot pain, has diabetic foot ulcer at the bottom of the right foot. He has pain in the foot and leg. MRI is consistent with osteomylitis. He had angiogram today Review of Systems Gen: no fever Resp: no sob, no cough CV: no chest, no TRIPLETT, no leg edema GI: No n/v, no abd pain Musk Sk pain in the right foot Neuro: No confusion Physical Exam Vital Signs: Vital Signs: Last Vital Signs Temp 98.7 F 09/25/20 09:55 Pulse 93 09/25/20 11:25 Resp 18 09/25/20 11:25 BP 162/92 H 09/25/20 11:25 Pulse Ox 98 09/25/20 11:25 Body Mass Index 28.5 Const: Other: General: AO X 3, no acute distress Resp: CTA bilateral CVS: S1,S2,RRR GI: +BS, NT, no distention Skin: ulcer at sole or right foot some discolaraion foot chronic Neuro: motor grossly intact Psych: appropriate affect Objective Data Current Medications Generic Name Dose Route Start Last Admin Trade Name Freq PRN Reason Stop Dose Admin Acetaminophen 650 mg 09/21/20 02:00 09/24/20 17:56 Acetaminophen 325 Mg Tablet PO 650 mg Q6H PRN Administration Pain, Mild (Pain Scale 1-3) Amlodipine Besylate 5 mg 09/24/20 18:30 09/24/20 18:41 Amlodipine Besylate 5 Mg Tablet PO 5 mg DAILY [facility]IT Administration Protocol Aspirin 81 mg 09/21/20 09:00 09/24/20 08:03 Aspirin Enteric Coated 81 Mg Tablet.Dr PO 81 mg DAILY CAIT Administration Clopidogrel Bisulfate 75 mg 09/21/20 09:00 09/24/20 08:03 Clopidogrel Bisulfate 75 Mg Tablet PO 75 mg DAILY CAIT Administration Docusate Sodium 100 mg 09/21/20 02:00 09/24/20 21:03 Docusate Sodium 100 Mg Capsule PO 100 mg BID CAIT Administration Enoxaparin Sodium 40 mg 09/21/20 03:00 09/25/20 02:59 Enoxaparin Sodium 40 Mg/0.4 Ml Syringe SUBCUT 40 mg Q24H [facility] Administration Piperacillin Sod/Tazobactam 50 mls @ 100 mls/hr 09/21/20 02:00 09/25/20 02:53 Sod 3.375 gm/ Sodium Chloride IV Infused Q6H [facility] Infusion Metronidazole 500 mg in 100 mls @ 100 mls/hr 09/24/20 10:00 09/25/20 04:00 Flagyl IV Infused Q8H [facility] Infusion Insulin Human Lispro 0 unit 09/21/20 07:30 09/24/20 21:18 Insulin Lispro 100 Unit/Ml 3 Ml Vial SUBCUT 2 unit QIDACHS [facility] Administration Protocol Magnesium Hydroxide 30 ml 09/21/20 02:00 Milk Of Magnesia 30 Ml Oral.Susp PO DAILY PRN Constipation Morphine Sulfate 4 mg 09/21/20 02:00 09/24/20 18:35 Morphine Sulfate 4 Mg/Ml Cartridge IVPUSH 4 mg Q4H PRN Administration Pain, Severe (Pain Scale 7-10) Ondansetron HCl 4 mg 09/21/20 02:00 09/24/20 02:21 Ondansetron Hcl 4 Mg/2 Ml Vial IVPUSH 4 mg Q8H PRN Administration Nausea and Vomiting Oxycodone HCl 5 mg 09/22/20 13:56 09/23/20 14:35 Oxycodone Hcl Immed Release 5 Mg Tablet PO 5 mg Q6H PRN Administration Pain, Moderate (Pain Scale 4-6 Pharmacy Consult 1 each 09/20/20 17:33 Consult Rx Vancomycin Dosing MISCELLANE DAILY PRN Consult order Pharmacy Consult 1 each 09/20/20 20:15 Consult Rx Vancomycin Dosing MISCELLANE DAILY PRN Consult order Sodium Chloride 3 ml 09/21/20 02:00 09/24/20 23:54 0.9 % Sodium Chloride Flush 3 Ml Syringe IVFLUSH 3 ml QSHIFT [facility] Administration Labs CBC & Chem 7: 09/25/20 13:12 09/26/20 05:31 Microbiology Microbiology Results: Microbiology 09/20/20 17:47 Blood - Venous Blood Culture - Final Bacteroides fragilis 09/20/20 17:47 Blood - Venous Blood Culture - Final Bacteroides fragilis Assessment and Plan (1) Bacteremia: Problem details: Likely bacteroides from necrotic tissue,can be contaminant There is concern over osteomyelitis Status: Acute Assessment and Plan: 49-year-old male with past medical history of diabetes who presents to the hospital with complaints of right foot pain, nonhealing wound, and toe discoloration. 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 peripheral artery disease with 4th toe discoloration occlusive thrombus proximal right popliteal artery found on duplex but has collateral flow Vascular surgery is did angiogram today--finding not yet available for my review. 3. DM: f continue on diabetic diet and LDSSI
[2020-09-25 13:26] LABS: Basophils Absolute Auto 0.1 X10*3/uL (0.0-0.2); Basophils Percent Auto 0.3 % (0-2); Eosinophils Absolute Auto 0.2 X10*3/uL (0.0-0.4); Eosinophils Percent Auto 1.4 % (0-4); Hematocrit 31.1 % (42-52); Hemoglobin 10.6 g/dl (14.0-18.0); Imm Gran Abs Auto 0.07 X10*3/uL (0.00-0.03); Imm Gran Pct Auto 0.4 % (0.0-0.4); Lymphocytes Absolute Auto 1.9 X10*3/uL (1.2-4.9); Lymphocytes Percent Auto 11.4 % (20-40); MANUAL DIFF FLAG NO; Mean Corpuscular HGB Conc 34.1 g/dl (31.0-36.0); Mean Corpuscular Hemoglobin 30.2 pg (27.0-33.0); Mean Corpuscular Volume 88.6 fL (80-98); Mean Platelet Volume 9.1 fL (9.4-12.4); Monocytes Absolute Auto 1.4 X10*3/uL (0.1-1.2); Monocytes Percent Auto 8.5 % (2-11); Neutrophils Absolute Auto 12.7 X10*3/uL (2.0-8.3); Platelet Count 452 X10*3/uL (160-400); Red Blood Count 3.51 X10*6/uL (4.60-5.80); Red Cell Distribution Width 12.2 % (11.0-16.0); White Blood Count 16.3 X10*3/uL (4.8-10.8)
[2020-09-25 13:33] LABS: INTERNATIONAL NORM RATIO 1.3 (0.9-1.1); Prothrombin Time 15.6 SEC (10.8-13.0)
[2020-09-25 13:36] LABS: Partial Thromboplastin Time 39.2 SEC (24.1-38.0)
[2020-09-25 13:53] LABS: Anion Gap 15 (12-20); Blood Urea Nitrogen 11 mg/dL (9-16); Calcium 8.5 mg/dL (8.4-10.2); Carbon Dioxide 26 mmol/L (22-29); Chloride 98 mmol/L (96-108); Creatinine Clr Calc Pharmacy 114.5; Estimated Glomerular Filt Rate > 60; Glucose Random 209 mg/dL (60-115); Sodium 135 mmol/L (135-145)
[2020-09-25] MEDS: Clopidogrel Bisulfate 75 MG TABLET PO (14:02)
[2020-09-25] MEDS: Aspirin Enteric Coated 81 MG TABLET.DR PO (14:02)
[2020-09-25] MEDS: amLODIPine Besylate 5 MG TABLET PO (14:02)
[2020-09-25] MEDS: 0.9 % Sodium Chloride Flush 3 ML SYRINGE IVFLUSH (16:10)
[2020-09-25 16:49] LABS: Glucose, Whole Blood 186 mg/dL (60-115)
[2020-09-25] MEDS: Insulin Lispro 100 UNIT/ML 3 ML VIAL SUBCUT ×2 (18:02→22:12)
[2020-09-25] MEDS: Acetaminophen 325 MG TABLET 650 MG PO (19:05)
[2020-09-25 21:07] LABS: Glucose, Whole Blood 240 mg/dL (60-115)
[2020-09-25 21:07] LABS: Glucose, Whole Blood 244 mg/dL (60-115)
[2020-09-25] MEDS: Docusate Sodium 100 MG CAPSULE PO (21:12)
[2020-09-25 21:24] LABS: Glucose, Whole Blood 203 mg/dL (60-115)
--- NOTE | 2020-09-25 21:52 | PM.IDPN ---
Subjective Subjective Date of Service: 09/25/20 Interval History: he has no changes Objective Data Labs CBC & Chem 7: 09/25/20 13:12 09/25/20 13:12 Labs: Laboratory Results - last 24 hr 09/25/20 09/25/20 09/25/20 07:17 07:28 12:55 WBC RBC Hgb Hct MCV MCH MCHC RDW Plt Count MPV Immature Gran % (Auto) Neut % (Auto) Lymph % (Auto) [place] % (Auto) Eos % (Auto) Baso % (Auto) Lymph # (Auto) [place] # (Auto) Eos # (Auto) Baso # (Auto) Abs Immat Gran (auto) Absolute Neuts (auto) Absolute Nucleated RBC Nucleated RBC % (auto) PT INR APTT Sodium Potassium Chloride Carbon Dioxide Anion Gap BUN Creatinine Estim Creat Clear Calc Estimated GFR POC Glucose 219 H 238 H 186 H Random Glucose Calcium 09/25/20 09/25/20 09/25/20 13:12 13:12 13:12 WBC 16.3 H RBC 3.51 L Hgb 10.6 L Hct 31.1 L MCV 88.6 MCH 30.2 MCHC 34.1 RDW 12.2 Plt Count 452 H D MPV 9.1 L Immature Gran % (Auto) 0.4 Neut % (Auto) 78.0 H Lymph % (Auto) 11.4 L [place] % (Auto) 8.5 Eos % (Auto) 1.4 Baso % (Auto) 0.3 Lymph # (Auto) 1.9 [place] # (Auto) 1.4 H Eos # (Auto) 0.2 Baso # (Auto) 0.1 Abs Immat Gran (auto) 0.07 H Absolute Neuts (auto) 12.7 H Absolute Nucleated RBC 0.000 Nucleated RBC % (auto) 0.0 PT 15.6 H INR 1.3 H APTT 39.2 H Sodium 135 Potassium 4.0 Chloride 98 Carbon Dioxide 26 Anion Gap 15 BUN 11 Creatinine 0.82 Estim Creat Clear Calc 114.5 Estimated GFR > 60 POC Glucose Random Glucose 209 H Calcium 8.5 09/25/20 09/25/20 09/25/20 17:14 17:57 21:10 WBC RBC Hgb Hct MCV MCH MCHC RDW Plt Count MPV Immature Gran % (Auto) Neut % (Auto) Lymph % (Auto) [place] % (Auto) Eos % (Auto) Baso % (Auto) Lymph # (Auto) [place] # (Auto) Eos # (Auto) Baso # (Auto) Abs Immat Gran (auto) Absolute Neuts (auto) Absolute Nucleated RBC Nucleated RBC % (auto) PT INR APTT Sodium Potassium Chloride Carbon Dioxide Anion Gap BUN Creatinine Estim Creat Clear Calc Estimated GFR POC Glucose 244 H 240 H 203 H Random Glucose Calcium Microbiology Microbiology Results: Microbiology 09/20/20 17:47 Blood - Venous Blood Culture - Final Bacteroides fragilis 09/20/20 17:47 Blood - Venous Blood Culture - Final Bacteroides fragilis Physical Exam Vital Signs: Vital Signs: Last Vital Signs Temp 98 F 09/25/20 20:00 Pulse 87 09/25/20 20:00 Resp 15 09/25/20 20:00 BP 142/78 H 09/25/20 20:00 Pulse Ox 98 09/25/20 20:00 Body Mass Index 28.5 Const: General: cooperative HENMT: Head: Yes normal to inspection Resp: Effort & Inspection: normal respiratory effort Cardio: Rate: regular rate Rhythm: regular rhythm Extrem: Other: no change foot infection Assessment and Plan Assessment and plan (1) Diabetic foot ulcer: Problem details: Metatarsal head infection foot Bacteroides bacteremia Status: Acute Assessment and Plan: 6 weeks antibiotics help suppress osteomyelitis Ertapenem 1 g daily and po Flagyl 500 mg bid for two weeks IV line Recheck blood culture (2) Bacteremia: Problem details: Likely bacteroides from necrotic tissue,can be contaminant There is concern over osteomyelitis Status: Acute Time Spent With Patient Time: Total time spent is greater than 50% in coordination of care (as documented) at patient's floor/unit and/or counseling patient: Time with patient: 15 - 24 minutes
[2020-09-26] VITALS (8 sets, daily range): BP systolic 148–171; BP diastolic 74–99; PULSE 81–91; RESP 16–18; TEMP 36.7–37.1; O2SAT 96–98; BMI 29.9
[2020-09-26] MEDS: 0.9 % Sodium Chloride Flush 3 ML SYRINGE IVFLUSH ×3 (01:26→15:25)
[2020-09-26] MEDS: metroNIDAZOLE/NS 500 MG/100 ML PIGGYBACK 100 MG IV ×3 (01:27→18:02)
[2020-09-26] MEDS: Enoxaparin Sodium 40 MG/0.4 ML SYRINGE SUBCUT (01:27)
[2020-09-26 06:23] LABS: Anion Gap 16 (12-20); Blood Urea Nitrogen 11 mg/dL (9-16); Calcium 8.3 mg/dL (8.4-10.2); Carbon Dioxide 24 mmol/L (22-29); Chloride 98 mmol/L (96-108); Creatinine Clr Calc Pharmacy 123.5; Estimated Glomerular Filt Rate > 60; Glucose Random 246 mg/dL (60-115); Potassium 4.1 mmol/l (3.3-5.1); Sodium 134 mmol/L (135-145)
[2020-09-26 07:10] LABS: Glucose, Whole Blood 237 mg/dL (60-115)
[2020-09-26] MEDS: Insulin Lispro 100 UNIT/ML 3 ML VIAL SUBCUT ×4 (08:15→20:34)
[2020-09-26] MEDS: amLODIPine Besylate 5 MG TABLET PO (08:16)
[2020-09-26] MEDS: Aspirin Enteric Coated 81 MG TABLET.DR PO (08:16)
[2020-09-26] MEDS: Docusate Sodium 100 MG CAPSULE PO (08:17)
[2020-09-26] MEDS: Clopidogrel Bisulfate 75 MG TABLET PO (08:17)
--- NOTE | 2020-09-26 10:46 | HO.PM.IMPN ---
Subjective Subjective Date of Service: 09/26/20 Interval History: Seen in f/u osteomyelitis of foot. No pain Review of Systems Gen: no fever Resp: no sob, no cough CV: no chest, no TRIPLETT, no leg edema GI: No n/v, no abd pain Musk Sk pain in the right foot Neuro: No confusion Physical Exam Vital Signs: Vital Signs: Last Vital Signs Temp 98.4 F 09/26/20 07:46 Pulse 91 09/26/20 08:16 Resp 18 09/26/20 07:46 BP 160/88 H 09/26/20 08:16 Pulse Ox 97 09/26/20 07:46 Body Mass Index 29.9 Const: Other: General: AO X 3, no acute distress Resp: CTA bilateral CVS: S1,S2,RRR GI: +BS, NT, no distention Skin: ulcer at sole or right foot some discolaraion foot chronic Neuro: motor grossly intact Psych: appropriate affect Objective Data Current Medications Generic Name Dose Route Start Last Admin Trade Name Freq PRN Reason Stop Dose Admin Acetaminophen 650 mg 09/21/20 02:00 09/25/20 19:05 Acetaminophen 325 Mg Tablet PO 650 mg Q6H PRN Administration Pain, Mild (Pain Scale 1-3) Amlodipine Besylate 5 mg 09/24/20 18:30 09/26/20 08:16 Amlodipine Besylate 5 Mg Tablet PO 5 mg DAILY CAIT Administration Protocol Aspirin 81 mg 09/21/20 09:00 09/26/20 08:16 Aspirin Enteric Coated 81 Mg Tablet.Dr PO 81 mg DAILY CAIT Administration Clopidogrel Bisulfate 75 mg 09/21/20 09:00 09/26/20 08:17 Clopidogrel Bisulfate 75 Mg Tablet PO 75 mg DAILY CAIT Administration Docusate Sodium 100 mg 09/21/20 02:00 09/26/20 08:17 Docusate Sodium 100 Mg Capsule PO 100 mg BID CAIT Administration Enoxaparin Sodium 40 mg 09/21/20 03:00 09/26/20 01:27 Enoxaparin Sodium 40 Mg/0.4 Ml Syringe SUBCUT 40 mg Q24H [facility] Administration Metronidazole 500 mg in 100 mls @ 100 mls/hr 09/24/20 10:00 09/26/20 10:32 Flagyl IV 100 mls/hr Q8H [facility] Administration Meropenem 1 gm/ Sodium 100 mls @ 100 mls/hr 09/26/20 08:00 09/26/20 09:36 Chloride IV Infused Q8H [facility] Infusion Insulin Human Lispro 0 unit 09/21/20 07:30 09/26/20 08:15 Insulin Lispro 100 Unit/Ml 3 Ml Vial SUBCUT 4 unit QIDACHS [facility] Administration Protocol Magnesium Hydroxide 30 ml 09/21/20 02:00 Milk Of Magnesia 30 Ml Oral.Susp PO DAILY PRN Constipation Ondansetron HCl 4 mg 09/21/20 02:00 09/24/20 02:21 Ondansetron Hcl 4 Mg/2 Ml Vial IVPUSH 4 mg Q8H PRN Administration Nausea and Vomiting Oxycodone HCl 5 mg 09/22/20 13:56 09/23/20 14:35 Oxycodone Hcl Immed Release 5 Mg Tablet PO 5 mg Q6H PRN Administration Pain, Moderate (Pain Scale 4-6 Pharmacy Consult 1 each 09/20/20 17:33 Consult Rx Vancomycin Dosing MISCELLANE DAILY PRN Consult order Pharmacy Consult 1 each 09/20/20 20:15 Consult Rx Vancomycin Dosing MISCELLANE DAILY PRN Consult order Sodium Chloride 3 ml 09/21/20 02:00 09/26/20 08:16 0.9 % Sodium Chloride Flush 3 Ml Syringe IVFLUSH 3 ml QSHIFT [facility] Administration Labs CBC & Chem 7: 09/25/20 13:12 09/26/20 05:31 Microbiology Microbiology Results: Microbiology 09/20/20 17:47 Blood - Venous Blood Culture - Final Bacteroides fragilis 09/20/20 17:47 Blood - Venous Blood Culture - Final Bacteroides fragilis Assessment and Plan (1) Bacteremia: Problem details: Likely bacteroides from necrotic tissue,can be contaminant There is concern over osteomyelitis Status: Acute Assessment and Plan: 49-year-old male with past medical history of diabetes who presents to the hospital with complaints of right foot pain, nonhealing wound, and toe discoloration. 1.Sepsis- 2/2 diabetic foot wound bacteremia with bacteriodes -Osteomylitis of the foot -currnetly on Zosyn and Flagyl -ID recommends 6 of IV ERtapenem and PO Flagyl -PICC line today.. He is agreable to rehab 2. peripheral artery disease with 4th toe discoloration occlusive thrombus proximal right popliteal artery found on duplex but has collateral flow Vascular surgery is did angiogram on 09/25 with balooning for occluded vesel and is doing better 3. DM: continue on diabetic diet and LDSSI
--- NOTE | 2020-09-26 11:04 | P.PNVS_ITS ---
Subjective Subjective Date of Service: 09/26/20 Patient reports: no new complaints and feels better Interval history: Patient is postop day 1 status post endovascular intervention. Patient reports that his lower extremity feel significantly better. Pain has improved. Notes no groin issues either. In general feels better and notes better motion in the right lower extremity. Physical Exam Vital Signs: Vital Signs: Last Vital Signs Temp 98.4 F 09/26/20 07:46 Pulse 91 09/26/20 08:16 Resp 18 09/26/20 07:46 BP 160/88 H 09/26/20 08:16 Pulse Ox 97 09/26/20 07:46 Body Mass Index 29.9 Const: General: cooperative, healthy appearing and no acute distress Orientation/consciousness: oriented to person, oriented to place and oriented to time HENMT: Head: Yes normal to inspection Neck: Carotids: no bruits Chest: Chest palpation & inspection: normal inspection of the chest Resp: Effort & Inspection: normal respiratory effort and able to speak in complete sentences Auscultation: clear to auscultation bilaterally Cardio: Rate: regular rate Heart sounds: S1 normal heart sound present and S2 normal heart sound present Peripheral pulses: dorsalis pedis present on the right dopplerable GI: Inspection: Yes normal to inspection Skin: General skin exam: no rashes or lesions noted Wounds: no wounds Neuro: General: oriented to person, oriented to place, oriented to time and CN's II-XI intact bilaterally Extrem: General: Yes normal to inspection, Yes full ROM and Yes no clubbing, cyanosis or edema Psych: Appearance: grossly normal and well kempt Speech and movement: Normal speech and movement present Affect: normal affect Progress Note: A&P Assessment and plan (1) PAD (peripheral artery disease): Status: Acute Assessment and Plan: Patient doing well status post endovascular intervention. He underwent right lower extremity popliteal angioplasty with a drug coated balloon. He notes significant improvement of the right leg. Pain has improved. He is stable from my perspective. He will need continued aspirin and Plavix for 6 months duration. Upon discharge are would like to see him in the office in approximately 2 weeks time. Thank you for allowing me to assist in his care. If there are any questions or concerns please do not hesitate to contact us. The patient had an opportunity to ask questions regarding the treatment plan. All questions were answered. Imaging studies, laboratory studies and physical exam results were discussed and reviewed in detail. No major barriers to understanding were identified. The patient expressed understanding and agreement with the above treatment plan. The patient is aware they should contact our office by phone for worsening of the current condition or the appearance of new symptoms. Thank you for allowing me to participate in the vascular care of this patient. If you have any questions or concerns regarding the treatment for the above condition please do not hesitate to contact me. The office telephone contact is [phone]. This note is constructed using voice recognition software. While every effort has been made to ensure accuracy, senior art director errors may have been included. Thank you for allowing me to participate in the care of your patient. Yours sincerely, Beebto Hammer MD, FACS, R.P.V.I. Fall Risk Details Current Medications: Current Medications Generic Name Dose Route Start Last Admin Trade Name Freq PRN Reason Stop Dose Admin Acetaminophen 650 mg 09/21/20 02:00 09/25/20 19:05 Acetaminophen 325 Mg Tablet PO 650 mg Q6H PRN Administration Pain, Mild (Pain Scale 1-3) Amlodipine Besylate 5 mg 09/24/20 18:30 09/26/20 08:16 Amlodipine Besylate 5 Mg Tablet PO 5 mg DAILY CAIT Administration Protocol Aspirin 81 mg 09/21/20 09:00 09/26/20 08:16 Aspirin Enteric Coated 81 Mg Tablet. PO 81 mg DAILY CAIT Administration Clopidogrel Bisulfate 75 mg 09/21/20 09:00 09/26/20 08:17 Clopidogrel Bisulfate 75 Mg Tablet PO 75 mg DAILY CAIT Administration Docusate Sodium 100 mg 09/21/20 02:00 09/26/20 08:17 Docusate Sodium 100 Mg Capsule PO 100 mg BID CAIT Administration Enoxaparin Sodium 40 mg 09/21/20 03:00 09/26/20 01:27 Enoxaparin Sodium 40 Mg/0.4 Ml Syringe SUBCUT 40 mg Q24H [facility] Administration Metronidazole 500 mg in 100 mls @ 100 mls/hr 09/24/20 10:00 09/26/20 10:32 Flagyl IV 100 mls/hr Q8H [facility] Administration Meropenem 1 gm/ Sodium 100 mls @ 100 mls/hr 09/26/20 08:00 09/26/20 09:36 Chloride IV Infused Q8H [facility] Infusion Insulin Human Lispro 0 unit 12/25/20 07:30 09/26/20 08:15 Insulin Lispro 100 Unit/Ml 3 Ml Vial SUBCUT 4 unit QIDACHS [facility] Administration Protocol Magnesium Hydroxide 30 ml 09/21/20 02:00 Milk Of Magnesia 30 Ml Oral.Susp PO DAILY PRN Constipation Ondansetron HCl 4 mg 09/21/20 02:00 09/24/20 02:21 Ondansetron Hcl 4 Mg/2 Ml Vial IVPUSH 4 mg Q8H PRN Administration Nausea and Vomiting Oxycodone HCl 5 mg 09/22/20 13:56 09/23/20 14:35 Oxycodone Hcl Immed Release 5 Mg Tablet PO 5 mg Q6H PRN Administration Pain, Moderate (Pain Scale 4-6 Pharmacy Consult 1 each 09/20/20 17:33 Consult Rx Vancomycin Dosing MISCELLANE DAILY PRN Consult order Pharmacy Consult 1 each 09/20/20 20:15 Consult Rx Vancomycin Dosing MISCELLANE DAILY PRN Consult order Sodium Chloride 3 ml 09/21/20 02:00 09/26/20 08:16 0.9 % Sodium Chloride Flush 3 Ml Syringe IVFLUSH 3 ml QSHIFT [facility] Administration Time Spent With Patient Time: Total time spent is greater than 50% in coordination of care (as documented) at patient's floor/unit and/or counseling patient: Time with patient: 15 - 24 minutes
[2020-09-26 11:36] LABS: Glucose, Whole Blood 246 mg/dL (60-115)
--- NOTE | 2020-09-26 11:52 | MHC.CM.PN ---
Patient continues on IV Flagyl, IV meropenem for osteomyelytis and diabetic foot wound infection. Per ID cons patient will need 6 wks of IV Ertapenem QD. 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 Referrals made to [facility] and [facility] care. CM will continue to follow patient for discharge needs.
[2020-09-26] MEDS: Acetaminophen 325 MG TABLET 650 MG PO (15:30)
[2020-09-26 16:29] LABS: Glucose, Whole Blood 224 mg/dL (60-115)
[2020-09-26 20:26] LABS: Glucose, Whole Blood 221 mg/dL (60-115)
[2020-09-27] MEDS: Enoxaparin Sodium 40 MG/0.4 ML SYRINGE SUBCUT (01:00)
[2020-09-27] MEDS: metroNIDAZOLE/NS 500 MG/100 ML PIGGYBACK 100 MG IV ×3 (01:01→17:55)
[2020-09-27 03:46] VITALS: BP 140/77; PULSE 84; RESP 20; TEMP 37.1; O2SAT 98
[2020-09-27 05:46] VITALS: BMI 29.7
[2020-09-27 07:29] LABS: Glucose, Whole Blood 209 mg/dL (60-115)
[2020-09-27 08:00] VITALS: BP 163/90; PULSE 94; RESP 18; TEMP 36.8; O2SAT 97
[2020-09-27] MEDS: 0.9 % Sodium Chloride Flush 3 ML SYRINGE IVFLUSH ×3 (08:17→16:06)
[2020-09-27] MEDS: ondansetron HCL 4 MG/2 ML VIAL IVPUSH (08:17)
[2020-09-27] MEDS: amLODIPine Besylate 5 MG TABLET PO (09:30)
[2020-09-27] MEDS: Clopidogrel Bisulfate 75 MG TABLET PO (09:30)
[2020-09-27] MEDS: Docusate Sodium 100 MG CAPSULE PO ×2 (09:30→20:36)
[2020-09-27] MEDS: Aspirin Enteric Coated 81 MG TABLET.DR PO (09:30)
[2020-09-27] MEDS: Insulin Lispro 100 UNIT/ML 3 ML VIAL SUBCUT ×4 (09:31→20:36)
[2020-09-27 11:06] LABS: Glucose, Whole Blood 253 mg/dL (60-115)
[2020-09-27 11:19] VITALS: BP 158/82; PULSE 86; RESP 18; TEMP 36.7; O2SAT 98
--- NOTE | 2020-09-27 11:21 | HO.VASCPN ---
Subjective Subjective Date of Service: 09/27/20 Patient reports: no new complaints and feels better Interval history: Patient is status post endovascular intervention of right lower extremity. No postprocedure issues. He is awaiting PICC placement for long-term IV antibiotics. Physical Exam Vital Signs: Vital Signs: Last Vital Signs Temp 98.3 F 09/27/20 08:00 Pulse 94 09/27/20 08:00 Resp 18 09/27/20 08:00 BP 163/90 H 09/27/20 08:00 Pulse Ox 97 09/27/20 08:00 Body Mass Index 29.7 Const: General: cooperative, healthy appearing and no acute distress Orientation/consciousness: oriented to person, oriented to place and oriented to time HENMT: Head: Yes normal to inspection Neck: Carotids: no bruits Chest: Chest palpation & inspection: normal inspection of the chest Resp: Effort & Inspection: normal respiratory effort and able to speak in complete sentences Auscultation: clear to auscultation bilaterally Cardio: Rate: regular rate Heart sounds: S1 normal heart sound present and S2 normal heart sound present Peripheral pulses: dorsalis pedis present on the right dopplerable GI: Inspection: Yes normal to inspection Skin: General skin exam: no rashes or lesions noted Wounds: wounds noted (Right 4th toe dry gangrene) Neuro: General: oriented to person, oriented to place, oriented to time and CN's II-XI intact bilaterally Extrem: General: Yes normal to inspection, Yes full ROM and Yes no clubbing, cyanosis or edema Psych: Appearance: grossly normal and well kempt Speech and movement: Normal speech and movement present Affect: normal affect Progress Note: A&P Assessment and plan (1) PAD (peripheral artery disease): Status: Acute Assessment and Plan: Stable from a vascular perspective. Toe tip does have some dry gangrene. Will allow that to demarcate. He is set up for IV antibiotics and subsequent discharge. He will follow up with me as an outpatient. He will need to stay on aspirin and Plavix. Of note he is at a high risk for toe amputation. This was related to the patient. I gave him my business card and he will follow up with us as an outpatient. Thank you for allowing us to assist in his care. The patient had an opportunity to ask questions regarding the treatment plan. All questions were answered. Imaging studies, laboratory studies and physical exam results were discussed and reviewed in detail. No major barriers to understanding were identified. The patient expressed understanding and agreement with the above treatment plan. The patient is aware they should contact our office by phone for worsening of the current condition or the appearance of new symptoms. Thank you for allowing me to participate in the vascular care of this patient. If you have any questions or concerns regarding the treatment for the above condition please do not hesitate to contact me. The office telephone contact is [phone]. This note is constructed using voice recognition software. While every effort has been made to ensure accuracy, money examiner errors may have been included. Thank you for allowing me to participate in the care of your patient. Yours sincerely, Bebeto Hammer MD, FACS, R.P.V.I. Fall Risk Details Current Medications: Current Medications Generic Name Dose Route Start Last Admin Trade Name Freq PRN Reason Stop Dose Admin Acetaminophen 650 mg 09/21/20 02:00 09/26/20 15:30 Acetaminophen 325 Mg Tablet PO 650 mg Q6H PRN Administration Pain, Mild (Pain Scale 1-3) Amlodipine Besylate 5 mg 09/24/20 18:30 09/27/20 09:30 Amlodipine Besylate 5 Mg Tablet PO 5 mg DAILY [facility] Administration Protocol Aspirin 81 mg 09/21/20 09:00 09/27/20 09:30 Aspirin Enteric Coated 81 Mg Tablet. PO 81 mg DAILY [facility] Administration Clopidogrel Bisulfate 75 mg 09/21/20 09:00 09/27/20 09:30 Clopidogrel Bisulfate 75 Mg Tablet PO 75 mg DAILY [facility] Administration Docusate Sodium 100 mg 09/21/20 02:00 09/27/20 09:30 Docusate Sodium 100 Mg Capsule PO 100 mg BID [facility] Administration Enoxaparin Sodium 40 mg 09/21/20 03:00 09/27/20 01:00 Enoxaparin Sodium 40 Mg/0.4 Ml Syringe SUBCUT 40 mg Q24H [facility] Administration Metronidazole 500 mg in 100 mls @ 100 mls/hr 09/24/20 10:00 09/27/20 10:31 Flagyl IV 100 mls/hr Q8H [facility] Administration Meropenem 1 gm/ Sodium 100 mls @ 100 mls/hr 09/26/20 08:00 09/27/20 10:34 Chloride IV Infused Q8H [facility] Infusion Insulin Human Lispro 0 unit 09/21/20 07:30 09/27/20 09:31 Insulin Lispro 100 Unit/Ml 3 Ml Vial SUBCUT 4 unit QIDACHS [facility] Administration Protocol Magnesium Hydroxide 30 ml 09/21/20 02:00 Milk Of Magnesia 30 Ml Oral.Susp PO DAILY PRN Constipation Ondansetron HCl 4 mg 09/21/20 02:00 09/27/20 08:17 Ondansetron Hcl 4 Mg/2 Ml Vial IVPUSH 4 mg Q8H PRN Administration Nausea and Vomiting Oxycodone HCl 5 mg 09/22/20 13:56 09/23/20 14:35 Oxycodone Hcl Immed Release 5 Mg Tablet PO 5 mg Q6H PRN Administration Pain, Moderate (Pain Scale 4-6 Pharmacy Consult 1 each 09/20/20 17:33 Consult Rx Vancomycin Dosing MISCELLANE DAILY PRN Consult order Pharmacy Consult 1 each 09/20/20 20:15 Consult Rx Vancomycin Dosing MISCELLANE DAILY PRN Consult order Sodium Chloride 3 ml 09/21/20 02:00 09/27/20 08:17 0.9 % Sodium Chloride Flush 3 Ml Syringe IVFLUSH 3 ml QSHIFT [facility] Administration Time Spent With Patient Time: Total time spent is greater than 50% in coordination of care (as documented) at patient's floor/unit and/or counseling patient: Time with patient: 15 - 24 minutes
--- NOTE | 2020-09-27 11:41 | MHC.CM.PN ---
CM spoke with nurse in IR who states patient will not be able to get PICC line placed today because BC need to be resulted after 48 hrs and nurse reports that will be resulted tonight. earliest PICC can be placed is tomorrow. Patient has [employer] for insurance and will need auth. Tomorrow is a holiday then week end [employer] is closed and not able to get auth until Thursday10/01/2020.
--- NOTE | 2020-09-27 13:00 | HO.PM.IMPN ---
Subjective Subjective Date of Service: 09/27/20 Interval History: Seen in f/u osteomyelitis of foot. No pain Review of Systems Gen: no fever Resp: no sob, no cough CV: no chest, no TRIPLETT, no leg edema GI: No n/v, no abd pain Musk Sk pain in the right foot Neuro: No confusion Physical Exam Vital Signs: Vital Signs: Last Vital Signs Temp 98.1 F 09/27/20 11:19 Pulse 86 09/27/20 11:19 Resp 18 09/27/20 11:19 BP 158/82 H 09/27/20 11:19 Pulse Ox 98 09/27/20 11:19 Body Mass Index 29.7 Const: Other: General: AO X 3, no acute distress Resp: CTA bilateral CVS: S1,S2,RRR GI: +BS, NT, no distention Skin: ulcer at sole or right foot some discolaraion foot chronic Neuro: motor grossly intact Psych: appropriate affect Objective Data Current Medications Generic Name Dose Route Start Last Admin Trade Name Freq PRN Reason Stop Dose Admin Acetaminophen 650 mg 09/21/20 02:00 09/26/20 15:30 Acetaminophen 325 Mg Tablet PO 650 mg Q6H PRN Administration Pain, Mild (Pain Scale 1-3) Amlodipine Besylate 5 mg 09/24/20 18:30 09/27/20 09:30 Amlodipine Besylate 5 Mg Tablet PO 5 mg DAILY [facility] Administration Protocol Aspirin 81 mg 09/21/20 09:00 09/27/20 09:30 Aspirin Enteric Coated 81 Mg Tablet.Dr PO 81 mg DAILY [facility] Administration Clopidogrel Bisulfate 75 mg 09/21/20 09:00 09/27/20 09:30 Clopidogrel Bisulfate 75 Mg Tablet PO 75 mg DAILY [facility] Administration Docusate Sodium 100 mg 09/21/20 02:00 09/27/20 09:30 Docusate Sodium 100 Mg Capsule PO 100 mg BID [facility] Administration Enoxaparin Sodium 40 mg 09/21/20 03:00 09/27/20 01:00 Enoxaparin Sodium 40 Mg/0.4 Ml Syringe SUBCUT 40 mg Q24H [facility] Administration Metronidazole 500 mg in 100 mls @ 100 mls/hr 09/24/20 10:00 09/27/20 11:37 Flagyl IV Infused Q8H [facility] Infusion Meropenem 1 gm/ Sodium 100 mls @ 100 mls/hr 09/26/20 08:00 09/27/20 10:34 Chloride IV Infused Q8H [facility] Infusion Insulin Human Lispro 0 unit 09/21/20 07:30 09/27/20 12:44 Insulin Lispro 100 Unit/Ml 3 Ml Vial SUBCUT 6 unit QIDACHS [facility] Administration Protocol Magnesium Hydroxide 30 ml 09/21/20 02:00 Milk Of Magnesia 30 Ml Oral.Susp PO DAILY PRN Constipation Ondansetron HCl 4 mg 09/21/20 02:00 09/27/20 08:17 Ondansetron Hcl 4 Mg/2 Ml Vial IVPUSH 4 mg Q8H PRN Administration Nausea and Vomiting Oxycodone HCl 5 mg 09/22/20 13:56 09/23/20 14:35 Oxycodone Hcl Immed Release 5 Mg Tablet PO 5 mg Q6H PRN Administration Pain, Moderate (Pain Scale 4-6 Pharmacy Consult 1 each 09/20/20 17:33 Consult Rx Vancomycin Dosing MISCELLANE DAILY PRN Consult order Pharmacy Consult 1 each 09/20/20 20:15 Consult Rx Vancomycin Dosing MISCELLANE DAILY PRN Consult order Sodium Chloride 3 ml 09/21/20 02:00 09/27/20 08:17 0.9 % Sodium Chloride Flush 3 Ml Syringe IVFLUSH 3 ml QSHIFT [facility] Administration Labs CBC & Chem 7: 09/25/20 13:12 09/26/20 05:31 Microbiology Microbiology Results: Microbiology 09/25/20 22:34 Blood - Venous Blood Culture - Preliminary No growth after 24 hours. 09/25/20 22:30 Blood - Venous Blood Culture - Preliminary No growth after 24 hours. 09/20/20 17:47 Blood - Venous Blood Culture - Final Bacteroides fragilis 09/20/20 17:47 Blood - Venous Blood Culture - Final Bacteroides fragilis Assessment and Plan (1) Bacteremia: Status: Acute Assessment and Plan: 49-year-old male with past medical history of diabetes who presents to the hospital with complaints of right foot pain, nonhealing wound, and toe discoloration. 1.Sepsis- 2/2 diabetic foot wound bacteremia with bacteriodes -Osteomylitis of the foot -currnetly on Zosyn and Flagyl -ID recommends 6 of IV ERtapenem and PO Flagyl -PICC before discharge, insurance will not authorize dc home PICC line today 2. peripheral artery disease with 4th toe discoloration occlusive thrombus proximal right popliteal artery found on duplex but has collateral flow Vascular surgery is did angiogram on 09/25 with balooning for occluded vesel and is doing better 3. DM: continue on diabetic diet and LDSSI
[2020-09-27 15:07] VITALS: BP 151/88; PULSE 91; RESP 18; TEMP 36.5; O2SAT 98
[2020-09-27 16:13] LABS: Glucose, Whole Blood 251 mg/dL (60-115)
[2020-09-27 19:47] VITALS: BP 181/103; PULSE 92; RESP 18; TEMP 37; O2SAT 97
[2020-09-27 20:34] LABS: Glucose, Whole Blood 280 mg/dL (60-115)
[2020-09-28] VITALS (7 sets, daily range): BP systolic 139–169; BP diastolic 83–94; PULSE 77–95; RESP 16–18; TEMP 36.6–37.6; O2SAT 97–99; BMI 29.7
[2020-09-28] MEDS: Enoxaparin Sodium 40 MG/0.4 ML SYRINGE SUBCUT (02:30)
[2020-09-28] MEDS: metroNIDAZOLE/NS 500 MG/100 ML PIGGYBACK 100 MG IV ×3 (02:30→17:40)
--- NOTE | 2020-09-28 07:30 | P.PNIM_ITS ---
Subjective Subjective Date of Service: 09/28/20 Interval History: Seen in f/u osteomyelitis of foot. No changes. Awaiting PICC line then home with IV Abx Review of Systems Gen: no fever Resp: no sob, no cough CV: no chest, no TRIPLETT, no leg edema GI: No n/v, no abd pain Musk Sk pain in the right foot Neuro: No confusion Physical Exam Vital Signs: Vital Signs: Last Vital Signs Temp 98.2 F 09/28/20 04:00 Pulse 91 09/28/20 04:00 Resp 17 09/28/20 04:00 BP 158/94 H 09/28/20 04:00 Pulse Ox 97 09/28/20 04:00 Body Mass Index 29.7 Const: Other: General: AO X 3, no acute distress Resp: CTA bilateral CVS: S1,S2,RRR GI: +BS, NT, no distention Skin: ulcer at sole or right foot some discolaraion foot chronic Neuro: motor grossly intact Psych: appropriate affect Objective Data Current Medications Generic Name Dose Route Start Last Admin Trade Name Freq PRN Reason Stop Dose Admin Acetaminophen 650 mg 09/21/20 02:00 09/26/20 15:30 Acetaminophen 325 Mg Tablet PO 650 mg Q6H PRN Administration Pain, Mild (Pain Scale 1-3) Amlodipine Besylate 5 mg 09/24/20 18:30 09/27/20 09:30 Amlodipine Besylate 5 Mg Tablet PO 5 mg DAILY [facility] Administration Protocol Aspirin 81 mg 09/21/20 09:00 09/27/20 09:30 Aspirin Enteric Coated 81 Mg Tablet.Dr PO 81 mg DAILY [facility] Administration Clopidogrel Bisulfate 75 mg 09/21/20 09:00 09/27/20 09:30 Clopidogrel Bisulfate 75 Mg Tablet PO 75 mg DAILY [facility] Administration Docusate Sodium 100 mg 09/21/20 02:00 09/27/20 20:36 Docusate Sodium 100 Mg Capsule PO 100 mg BID [facility] Administration Enoxaparin Sodium 40 mg 09/21/20 03:00 09/28/20 02:30 Enoxaparin Sodium 40 Mg/0.4 Ml Syringe SUBCUT 40 mg Q24H [facility] Administration Metronidazole 500 mg in 100 mls @ 100 mls/hr 09/24/20 10:00 09/28/20 03:41 Flagyl IV Infused Q8H [facility] Infusion Meropenem 1 gm/ Sodium 100 mls @ 100 mls/hr 09/26/20 08:00 09/28/20 01:06 Chloride IV Infused Q8H [facility] Infusion Insulin Human Lispro 0 unit 09/21/20 07:30 09/27/20 20:36 Insulin Lispro 100 Unit/Ml 3 Ml Vial SUBCUT 4 unit QIDACHS [facility] Administration Protocol Magnesium Hydroxide 30 ml 09/21/20 02:00 Milk Of Magnesia 30 Ml Oral.Susp PO DAILY PRN Constipation Ondansetron HCl 4 mg 09/21/20 02:00 09/27/20 08:17 Ondansetron Hcl 4 Mg/2 Ml Vial IVPUSH 4 mg Q8H PRN Administration Nausea and Vomiting Oxycodone HCl 5 mg 09/22/20 13:56 09/23/20 14:35 Oxycodone Hcl Immed Release 5 Mg Tablet PO 5 mg Q6H PRN Administration Pain, Moderate (Pain Scale 4-6 Sodium Chloride 3 ml 09/21/20 02:00 09/28/20 00:12 0.9 % Sodium Chloride Flush 3 Ml Syringe IVFLUSH Not Given QSHIFT [facility] Labs CBC & Chem 7: 09/25/20 13:12 09/26/20 05:31 Microbiology Microbiology Results: Microbiology 09/25/20 22:34 Blood - Venous Blood Culture - Preliminary No growth after 48 hours. 09/25/20 22:30 Blood - Venous Blood Culture - Preliminary No growth after 48 hours. 09/20/20 17:47 Blood - Venous Blood Culture - Final Bacteroides fragilis 09/20/20 17:47 Blood - Venous Blood Culture - Final Bacteroides fragilis Assessment and Plan (1) Bacteremia: Status: Acute Assessment and Plan: 49-year-old male with past medical history of diabetes who presents to the hospital with complaints of right foot pain, nonhealing wound, and toe discoloration. 1.Sepsis- 2/2 diabetic foot wound bacteremia with bacteriodes -Osteomylitis of the foot -currnetly on Zosyn and Flagyl -ID recommends 6 of IV ERtapenem (Meropenem in hospital) and PO Flagyl -PICC line Thursday then DC 2. peripheral artery disease with 4th toe discoloration occlusive thrombus proximal right popliteal artery found on duplex but has collateral flow Vascular surgery is did angiogram on 09/25 with balooning for occluded vesel and is doing better he will ultimately may get toe amputation 3. DM: continue on diabetic diet and LDSSI
[2020-09-28 07:53] LABS: Glucose, Whole Blood 241 mg/dL (60-115)
[2020-09-28] MEDS: Docusate Sodium 100 MG CAPSULE PO ×2 (08:34→21:01)
[2020-09-28] MEDS: Clopidogrel Bisulfate 75 MG TABLET PO (08:34)
[2020-09-28] MEDS: Aspirin Enteric Coated 81 MG TABLET.DR PO (08:34)
[2020-09-28] MEDS: 0.9 % Sodium Chloride Flush 3 ML SYRINGE IVFLUSH ×3 (08:35→23:31)
[2020-09-28] MEDS: amLODIPine Besylate 5 MG TABLET PO (08:35)
[2020-09-28] MEDS: Insulin Lispro 100 UNIT/ML 3 ML VIAL SUBCUT ×4 (08:40→21:01)
[2020-09-28 11:38] LABS: Glucose, Whole Blood 256 mg/dL (60-115)
[2020-09-28 16:19] LABS: Glucose, Whole Blood 228 mg/dL (60-115)
[2020-09-28 20:14] LABS: Glucose, Whole Blood 195 mg/dL (60-115)
[2020-09-28] MEDS: ondansetron HCL 4 MG/2 ML VIAL IVPUSH (21:06)
[2020-09-28] MEDS: Acetaminophen 325 MG TABLET 650 MG PO (23:46)
[2020-09-29] MEDS: metroNIDAZOLE/NS 500 MG/100 ML PIGGYBACK 100 MG IV ×3 (03:26→17:08)
[2020-09-29] MEDS: Enoxaparin Sodium 40 MG/0.4 ML SYRINGE SUBCUT (03:26)
[2020-09-29 03:30] VITALS: BP 149/104; PULSE 80; RESP 18; TEMP 36.4; O2SAT 98
[2020-09-29 06:00] VITALS: BMI 28.0
[2020-09-29 07:12] VITALS: BP 132/90; PULSE 99; RESP 17; TEMP 36.2; O2SAT 97
[2020-09-29 07:56] LABS: Glucose, Whole Blood 223 mg/dL (60-115)
[2020-09-29] MEDS: Insulin Lispro 100 UNIT/ML 3 ML VIAL SUBCUT ×4 (08:56→20:02)
[2020-09-29] MEDS: 0.9 % Sodium Chloride Flush 3 ML SYRINGE IVFLUSH ×3 (08:57→23:42)
[2020-09-29] MEDS: Aspirin Enteric Coated 81 MG TABLET.DR PO (08:57)
[2020-09-29] MEDS: Docusate Sodium 100 MG CAPSULE PO ×2 (08:57→20:02)
[2020-09-29] MEDS: Clopidogrel Bisulfate 75 MG TABLET PO (08:57)
[2020-09-29] MEDS: amLODIPine Besylate 5 MG TABLET PO (08:57)
--- NOTE | 2020-09-29 10:02 | P.PNIM_ITS ---
Subjective Subjective Date of Service: 09/29/20 Interval History: Seen in f/u osteomyelitis of foot. No changes. Awaiting PICC line then home with IV Abxe. No change Review of Systems Gen: no fever Resp: no sob, no cough CV: no chest, no TRIPLETT, no leg edema GI: No n/v, no abd pain Musk Sk pain in the right foot Neuro: No confusion Physical Exam Vital Signs: Vital Signs: Last Vital Signs Temp 97.2 F 09/29/20 07:12 Pulse 99 09/29/20 07:12 Resp 17 09/29/20 07:12 BP 132/90 H 09/29/20 07:12 Pulse Ox 97 09/29/20 07:12 Body Mass Index 28.0 Const: Other: General: AO X 3, no acute distress Resp: CTA bilateral CVS: S1,S2,RRR GI: +BS, NT, no distention Skin: ulcer at sole or right foot some discolaraion foot chronic Neuro: motor grossly intact Psych: appropriate affect Objective Data Current Medications Generic Name Dose Route Start Last Admin Trade Name Jimq PRN Reason Stop Dose Admin Acetaminophen 650 mg 09/21/20 02:00 09/28/20 23:46 Acetaminophen 325 Mg Tablet PO 650 mg Q6H PRN Administration Pain, Mild (Pain Scale 1-3) Amlodipine Besylate 5 mg 09/24/20 18:30 09/29/20 08:57 Amlodipine Besylate 5 Mg Tablet PO 5 mg DAILY [facility] Administration Protocol Aspirin 81 mg 09/21/20 09:00 09/29/20 08:57 Aspirin Enteric Coated 81 Mg Tablet. PO 81 mg DAILY [facility] Administration Clopidogrel Bisulfate 75 mg 09/21/20 09:00 09/29/20 08:57 Clopidogrel Bisulfate 75 Mg Tablet PO 75 mg DAILY [facility] Administration Docusate Sodium 100 mg 09/21/20 02:00 09/29/20 08:57 Docusate Sodium 100 Mg Capsule PO 100 mg BID [facility] Administration Enoxaparin Sodium 40 mg 09/21/20 03:00 09/29/20 03:26 Enoxaparin Sodium 40 Mg/0.4 Ml Syringe SUBCUT 40 mg Q24H [facility] Administration Metronidazole 500 mg in 100 mls @ 100 mls/hr 09/24/20 10:00 09/29/20 09:58 Flagyl IV 100 mls/hr Q8H [facility] Administration Meropenem 1 gm/ Sodium 100 mls @ 100 mls/hr 09/26/20 08:00 09/29/20 10:02 Chloride IV Infused Q8H [facility] Infusion Insulin Human Lispro 0 unit 09/21/20 07:30 09/29/20 08:56 Insulin Lispro 100 Unit/Ml 3 Ml Vial SUBCUT 4 unit QIDACHS [facility] Administration Protocol Magnesium Hydroxide 30 ml 09/21/20 02:00 Milk Of Magnesia 30 Ml Oral.Susp PO DAILY PRN Constipation Ondansetron HCl 4 mg 09/21/20 02:00 09/28/20 21:06 Ondansetron Hcl 4 Mg/2 Ml Vial IVPUSH 4 mg Q8H PRN Administration Nausea and Vomiting Oxycodone HCl 5 mg 09/22/20 13:56 09/23/20 14:35 Oxycodone Hcl Immed Release 5 Mg Tablet PO 5 mg Q6H PRN Administration Pain, Moderate (Pain Scale 4-6 Sodium Chloride 3 ml 09/21/20 02:00 09/29/20 08:57 0.9 % Sodium Chloride Flush 3 Ml Syringe IVFLUSH 3 ml QSHIFT [facility] Administration Labs CBC & Chem 7: 09/25/20 13:12 09/26/20 05:31 Microbiology Microbiology Results: Microbiology 09/25/20 22:34 Blood - Venous Blood Culture - Preliminary No growth after 48 hours. 09/25/20 22:30 Blood - Venous Blood Culture - Preliminary No growth after 48 hours. 09/20/20 17:47 Blood - Venous Blood Culture - Final Bacteroides fragilis 09/20/20 17:47 Blood - Venous Blood Culture - Final Bacteroides fragilis Assessment and Plan (1) Bacteremia: Status: Acute Assessment and Plan: 49-year-old male with past medical history of diabetes who presents to the hospital with complaints of right foot pain, nonhealing wound, and toe discoloration. 1.Sepsis- 2/2 diabetic foot wound bacteremia with bacteriodes -Osteomylitis of the foot -currnetly on Meropenem and Flagyl -ID recommends 6 of IV ERtapenem (Meropenem in hospital) and PO Flagyl -PICC line Thursday then DC 2. peripheral artery disease with 4th toe discoloration occlusive thrombus proximal right popliteal artery found on duplex but has collateral flow Vascular surgery is did angiogram on 09/25 with balooning for occluded vesel and is doing better he will ultimately may get toe amputation 3. DM: continue on diabetic diet and LDSSI
[2020-09-29 11:05] VITALS: BP 151/87; PULSE 92; RESP 17; TEMP 36.8; O2SAT 98
[2020-09-29 11:40] LABS: Glucose, Whole Blood 273 mg/dL (60-115)
[2020-09-29 16:00] VITALS: BP 144/92; PULSE 92; RESP 16; TEMP 37.2; O2SAT 97
[2020-09-29 17:16] LABS: Glucose, Whole Blood 260 mg/dL (60-115)
[2020-09-29 19:29] VITALS: BP 120/83; PULSE 95; RESP 17; TEMP 36.6; O2SAT 98
[2020-09-29 20:02] LABS: Glucose, Whole Blood 333 mg/dL (60-115)
[2020-09-29 23:37] VITALS: BP 155/95; PULSE 93; RESP 18; TEMP 36.9; O2SAT 97
[2020-09-30] MEDS: metroNIDAZOLE/NS 500 MG/100 ML PIGGYBACK 100 MG IV ×3 (00:47→17:55)
[2020-09-30] MEDS: Enoxaparin Sodium 40 MG/0.4 ML SYRINGE SUBCUT (02:34)
[2020-09-30 03:21] VITALS: BP 158/97; PULSE 86; RESP 16; TEMP 37.1; O2SAT 97
[2020-09-30 07:52] LABS: Glucose, Whole Blood 270 mg/dL (60-115)
[2020-09-30 08:29] VITALS: BP 158/97; PULSE 86
[2020-09-30] MEDS: Insulin Lispro 100 UNIT/ML 3 ML VIAL SUBCUT ×4 (08:29→20:22)
[2020-09-30] MEDS: amLODIPine Besylate 5 MG TABLET PO (08:29)
[2020-09-30] MEDS: 0.9 % Sodium Chloride Flush 3 ML SYRINGE IVFLUSH ×3 (08:29→23:57)
[2020-09-30] MEDS: Aspirin Enteric Coated 81 MG TABLET.DR PO (08:30)
[2020-09-30] MEDS: Clopidogrel Bisulfate 75 MG TABLET PO (08:30)
[2020-09-30] MEDS: Docusate Sodium 100 MG CAPSULE PO ×2 (08:30→20:21)
--- NOTE | 2020-09-30 09:16 | P.PNIM_ITS ---
Subjective Subjective Date of Service: 09/30/20 Interval History: Seen in f/u osteomyelitis of foot. No changes. Awaiting PICC line then home with IV Abxe. No new complaint, looks forward to going home tomorrow Review of Systems Gen: no fever Resp: no sob, no cough CV: no chest, no TRIPLETT, no leg edema GI: No n/v, no abd pain Musk Sk pain in the right foot Neuro: No confusion Physical Exam Vital Signs: Vital Signs: Last Vital Signs Temp 98.7 F 09/30/20 03:21 Pulse 86 09/30/20 08:29 Resp 16 09/30/20 03:21 BP 158/97 H 09/30/20 08:29 Pulse Ox 97 09/30/20 03:21 Body Mass Index 28.0 Const: Other: General: AO X 3, no acute distress Resp: CTA bilateral CVS: S1,S2,RRR GI: +BS, NT, no distention Skin: ulcer at sole or right foot some discolaraion foot chronic Neuro: motor grossly intact Psych: appropriate affect Objective Data Current Medications Generic Name Dose Route Start Last Admin Trade Name Freq PRN Reason Stop Dose Admin Acetaminophen 650 mg 09/21/20 02:00 09/28/20 23:46 Acetaminophen 325 Mg Tablet PO 650 mg Q6H PRN Administration Pain, Mild (Pain Scale 1-3) Amlodipine Besylate 5 mg 09/24/20 18:30 09/30/20 08:29 Amlodipine Besylate 5 Mg Tablet PO 5 mg DAILY [facility] Administration Protocol Aspirin 81 mg 09/21/20 09:00 09/30/20 08:30 Aspirin Enteric Coated 81 Mg Tablet. PO 81 mg DAILY [facility] Administration Clopidogrel Bisulfate 75 mg 09/21/20 09:00 09/30/20 08:30 Clopidogrel Bisulfate 75 Mg Tablet PO 75 mg DAILY [facility] Administration Docusate Sodium 100 mg 09/21/20 02:00 09/30/20 08:30 Docusate Sodium 100 Mg Capsule PO 100 mg BID [facility] Administration Enoxaparin Sodium 40 mg 09/21/20 03:00 09/30/20 02:34 Enoxaparin Sodium 40 Mg/0.4 Ml Syringe SUBCUT 40 mg Q24H [facility] Administration Metronidazole 500 mg in 100 mls @ 100 mls/hr 09/24/20 10:00 09/30/20 02:32 Flagyl IV Infused Q8H [facility] Infusion Meropenem 1 gm/ Sodium 100 mls @ 100 mls/hr 09/26/20 08:00 09/30/20 08:30 Chloride IV 100 mls/hr Q8H [facility] Administration Insulin Human Lispro 0 unit 09/21/20 07:30 09/30/20 08:29 Insulin Lispro 100 Unit/Ml 3 Ml Vial SUBCUT 6 unit QIDACHS [facility] Administration Protocol Magnesium Hydroxide 30 ml 09/21/20 02:00 Milk Of Magnesia 30 Ml Oral.Susp PO DAILY PRN Constipation Ondansetron HCl 4 mg 09/21/20 02:00 09/28/20 21:06 Ondansetron Hcl 4 Mg/2 Ml Vial IVPUSH 4 mg Q8H PRN Administration Nausea and Vomiting Oxycodone HCl 5 mg 09/22/20 13:56 09/23/20 14:35 Oxycodone Hcl Immed Release 5 Mg Tablet PO 5 mg Q6H PRN Administration Pain, Moderate (Pain Scale 4-6 Sodium Chloride 3 ml 09/21/20 02:00 09/30/20 08:29 0.9 % Sodium Chloride Flush 3 Ml Syringe IVFLUSH 3 ml QSHIFT [facility] Administration Labs CBC & Chem 7: 09/25/20 13:12 09/26/20 05:31 Microbiology Microbiology Results: Microbiology 09/25/20 22:34 Blood - Venous Blood Culture - Preliminary No growth after 48 hours. 09/25/20 22:30 Blood - Venous Blood Culture - Preliminary No growth after 48 hours. 09/20/20 17:47 Blood - Venous Blood Culture - Final Bacteroides fragilis 09/20/20 17:47 Blood - Venous Blood Culture - Final Bacteroides fragilis Assessment and Plan (1) Bacteremia: Status: Acute Assessment and Plan: 49-year-old male with past medical history of diabetes who presents to the hospital with complaints of right foot pain, nonhealing wound, and toe discoloration. 1.Sepsis- 2/2 diabetic foot wound bacteremia with bacteriodes -Osteomylitis of the foot -currnetly on Meropenem and Flagyl -ID recommends 6 of IV ERtapenem (Meropenem in hospital) and PO Flagyl -PICC line Thursday then DC -Dry dressing change to wound daily 2. peripheral artery disease with 4th toe discoloration occlusive thrombus proximal right popliteal artery found on duplex but has collateral flow Vascular surgery is did angiogram on 09/25 with balooning for occluded vesel and is doing better he will ultimately may get toe amputation 3. DM: continue on diabetic diet and LDSSI Home with PICC line tomorrow
[2020-09-30 11:59] LABS: Glucose, Whole Blood 216 mg/dL (60-115)
[2020-09-30 12:00] VITALS: BP 128/83; PULSE 95; RESP 17; TEMP 36.6; O2SAT 100
--- NOTE | 2020-09-30 14:18 | MHC.CM.PN ---
nurse care manger note electronic medical record reviewed along with case discussed with staff nurse . per hospitalist note patient will have pic line placed tomorrow 10/01/20 , he will need one dose of his abx to be infused through pic line before he nato be able to be discharged . clinical updates sent to [facility] for iv abx and pic line supplies as well as update sent to the [employer] [facility] [employer] for nursing discharge [facility] for nursing for iv abx administration teach and pic line care and dressing [facility] all [facility]
[2020-09-30 15:32] VITALS: BP 149/95; PULSE 89; RESP 18; TEMP 37.2; O2SAT 98
[2020-09-30 16:43] LABS: Glucose, Whole Blood 254 mg/dL (60-115)
[2020-09-30 19:46] VITALS: BP 146/84; PULSE 85; RESP 18; TEMP 37.2; O2SAT 96
[2020-09-30 20:13] LABS: Glucose, Whole Blood 163 mg/dL (60-115)
[2020-09-30 23:14] VITALS: BP 109/72; PULSE 94; RESP 20; TEMP 36.7; O2SAT 98
[2020-10-01] MEDS: metroNIDAZOLE/NS 500 MG/100 ML PIGGYBACK 100 MG IV ×2 (01:01→12:07)
[2020-10-01] MEDS: Enoxaparin Sodium 40 MG/0.4 ML SYRINGE SUBCUT (01:03)
[2020-10-01 03:43] VITALS: BP 166/96; PULSE 86; RESP 20; TEMP 36.4; O2SAT 97
[2020-10-01 06:00] VITALS: BMI 27.5
[2020-10-01] MEDS: 0.9 % Sodium Chloride Flush 3 ML SYRINGE IVFLUSH (06:40)
[2020-10-01 07:06] VITALS: BP 155/95; PULSE 90; RESP 18; TEMP 36.2; O2SAT 98
[2020-10-01 07:42] LABS: Glucose, Whole Blood 265 mg/dL (60-115)
[2020-10-01] MEDS: Clopidogrel Bisulfate 75 MG TABLET PO (08:43)
[2020-10-01] MEDS: Aspirin Enteric Coated 81 MG TABLET.DR PO (08:43)
[2020-10-01] MEDS: Docusate Sodium 100 MG CAPSULE PO (08:43)
[2020-10-01 08:44] VITALS: BP 166/96; PULSE 85
[2020-10-01] MEDS: amLODIPine Besylate 10 MG TABLET PO (08:44)
[2020-10-01] MEDS: Insulin Lispro 100 UNIT/ML 3 ML VIAL SUBCUT ×2 (08:44→12:44)
--- NOTE | 2020-10-01 10:11 | PM.DS ---
DS: Providers Provider Date of admission: 09/20/20 22:55 Primary care physician: Xiao Ortiz NP Consults: 09/21/20 02:00 Consult to Infectious Diseases Routine Consulting Provider: Lourdes Gonzalez Reason for consultation: diabetic foot wound Has provider been notified: No Consult to Vascular Surgery Routine Consulting Provider: Bebeto Hammer Reason for consultation: popliteal artery occlusion Has provider been notified: Yes DS: Diagnosis Discharge Diagnosis (1) Bacteremia: Status: Acute DS: Medications Discharge Medications Home Medications: Home Medications Medication Instructions Recorded Confirmed cephalexin 500 mg capsule 500 mg PO TID 09/20/20 09/20/20 doxycycline hyclate 100 mg tablet 100 mg PO BID 09/20/20 09/20/20 ibuprofen 800 mg tablet 800 mg PO Q8H PRN 09/20/20 09/20/20 tramadol 50 mg tablet 50 mg PO QID PRN 09/20/20 09/20/20 Previous Rx's Medication Instructions Recorded aspirin [Adult Aspirin Regimen] 81 mg PO DAILY #30 tab 09/19/20 clopidogrel [Plavix] 75 mg PO DAILY #30 tab 09/19/20 DS: Summary Hospital Course Hospital Course: Chief Complaint: Foot pain This is a 49-year-old male with past medical history of diabetes, and chronic right foot ulcer who presents to the hospital with complaints of worsening pain of his right foot. Patient presented to the ED yesterday with this pain, arterial Doppler was done and he was found to have a popliteal occlusion, vascular surgery was consulted and advised patient to be discharged with aspirin and Plavix and follow up outpatient for angiogram. Patient was called back to the hospital today after his blood cultures grew Gram-negative rods. Patient reports that he has been having worsening pain over the past 1 month, he has noticed drainage, he is significantly fatigued, has loss of appetite and just loss of energy,, and has also noticed discoloration of his 4th toe that has been worsening over the past few weeks. denies fever but has chills, no chest pain, no sob, no cough, no abdominal pain, no diarrhea , has constipation, no urinary symptoms, no lower extremity edema. pt has been going to wound clinic regularly and he was told to go to the ED yesterday. On arrival to the ED patient's vital significant for a heart rate of 110, temperature of 98.8?, respiratory rate of 20, blood pressure 146/85, satting 99% on room air. Labs are significant for WBC count of 16.1 which was worsened from yesterday of 13.3, Hgb 11.4, Hct 34.3, corrected sodium of 137, glucose of 211 duplex scan of the lower extremity artery showed acute occlusive thrombus proximal right popliteal artery. There is collateral flow visualized in the mid and distal popliteal artery. Hospital course: 1.Sepsis- secondary to diabetic foot ulcer with osteomylitis as seen on MRI. He also had bacteremia with bacteriodes. He was initially on Vancoyminc and Zosyn. And later was changed to Ertapenem and Flagyl. ID is recommending 6 weeks of IV Abx--Presently Meropenem and will switch to Invanz at discharege. Additionally has been on Flagyl which will be switched to PO Flagyl 500 mg twice a day for 2 weeks. He has PICC line 2. peripheral artery disease with 4th toe discoloration occlusive thrombus proximal right popliteal artery found on duplex but has collateral flow Vascular surgery did angiogram on 09/25 with balooning the occluded vesel and is doing better he may ultimately get toe amputation. He will need to follow up with 3. DM: continue on diabetic diet and LDSSI Time Spent with Patient Time attestation: Total time spent providing and/or coordinating discharge services: Physical Exam Vital Signs: Vital Signs: Last Vital Signs Temp 97.2 F 10/01/20 07:06 Pulse 85 10/01/20 08:44 Resp 18 10/01/20 07:06 BP 166/96 H 10/01/20 08:44 Pulse Ox 98 10/01/20 07:06 Body Mass Index 27.5 General: AO X 3, no acute distress Resp: CTA bilateral CVS: S1,S2,RRR GI: +BS, NT, no distention Skin: ulcer at sole or right foot some discolaraion foot chronic Neuro: motor grossly intact Psych: appropriate affect DS: Data Data Completed and Pending Labs on day of discharge: 09/20/20 17:30 XR chest 1V Stat 09/20/20 17:31 0.9 % Sodium Chloride [Ns] 2,580 ml IVCONT 2,580 mls/hr 09/20/20 17:33 Consult Rx Vancomycin Dosing 1 each MISCELLANE DAILY PRN Piperacillin Sodium/Tazobactam [Zosyn] 3.375 gm 0.9 % Sodium Chloride [Ns] 50 ml IV ONCE levoFLOXacin/D5W [Levaquin] 750 mg in 150 ml IV ONCE vancomycin HCL 1,000 mg 0.9 % Sodium Chloride [Ns] 250 ml IV ONCE 09/20/20 17:47 Basic Metabolic Panel Stat Complete Blood Count Auto Diff Stat Lactic Acid Stat Lipase Stat Liver Panel Stat Blood Culture X2 [BC] Stat 09/20/20 17:48 COVID-19 ID NOW (Alfaro) Stat 09/20/20 18:00 Piperacillin Sodium/Tazobactam [Zosyn] 3.375 gm IV .STK-MED ONE 09/20/20 19:43 Transfer Order Routine 09/20/20 20:07 vancomycin HCL 1,000 mg .ROUTE .STK-MED ONE 09/20/20 20:15 Consult Rx Vancomycin Dosing 1 each MISCELLANE DAILY PRN 09/20/20 20:24 Glucose, Whole Blood Routine 09/21/20 02:00 Morphine Sulfate 4 mg IVPUSH Q4H PRN Piperacillin Sodium/Tazobactam [Zosyn] 3.375 gm 0.9 % Sodium Chloride [Ns] 50 ml IV Q6H 09/21/20 02:00 Cont. Telemetry w/Vital Sign limit Q4HR 09/21/20 02:16 Add Laboratory Test Stat 09/21/20 02:26 Piperacillin Sodium/Tazobactam [Zosyn] 3.375 gm IV .STK-MED ONE 09/21/20 06:08 Basic Metabolic Panel Routine C Reactive Protein Routine Complete Blood Count Auto Diff Routine Erythrocyte Sedimentation Rate Routine 09/21/20 08:00 vancomycin HCL 1,000 mg 0.9 % Sodium Chloride [Ns] 250 ml IV Q12H 09/21/20 08:18 Piperacillin Sodium/Tazobactam [Zosyn] 3.375 gm IV .STK-MED ONE 09/21/20 Breakfast Diabetic Diet 09/21/20 11:32 Glucose, Whole Blood Routine 09/21/20 13:57 Piperacillin Sodium/Tazobactam [Zosyn] 3.375 gm IV .STK-MED ONE 09/21/20 16:24 Glucose, Whole Blood Routine 09/21/20 21:03 Piperacillin Sodium/Tazobactam [Zosyn] 3.375 gm IV .STK-MED ONE 09/21/20 21:07 Glucose, Whole Blood Routine 09/22/20 02:22 Piperacillin Sodium/Tazobactam [Zosyn] 3.375 gm IV .STK-MED ONE 09/22/20 06:24 Basic Metabolic Panel DAILY@0600 Complete Blood Count no Diff DAILY@0600 09/22/20 07:39 Glucose, Whole Blood Routine 09/22/20 07:42 Piperacillin Sodium/Tazobactam [Zosyn] 3.375 gm IV .STK-MED ONE 09/22/20 11:35 Glucose, Whole Blood Routine 09/22/20 13:41 Piperacillin Sodium/Tazobactam [Zosyn] 3.375 gm IV .STK-MED ONE 09/22/20 16:20 Glucose, Whole Blood Routine 09/22/20 20:17 Glucose, Whole Blood Routine 09/22/20 20:42 Piperacillin Sodium/Tazobactam [Zosyn] 3.375 gm IV .STK-MED ONE 09/23/20 00:55 Piperacillin Sodium/Tazobactam [Zosyn] 3.375 gm IV .STK-MED ONE 09/23/20 08:28 Glucose, Whole Blood Routine 09/23/20 09:08 Piperacillin Sodium/Tazobactam [Zosyn] 3.375 gm IV .STK-MED ONE 09/23/20 11:37 Glucose, Whole Blood Routine 09/23/20 14:30 Piperacillin Sodium/Tazobactam [Zosyn] 3.375 gm IV .STK-MED ONE 09/23/20 15:11 Transfer Order Routine 09/23/20 17:26 Glucose, Whole Blood Routine 09/23/20 18:08 Piperacillin Sodium/Tazobactam [Zosyn] 3.375 gm IV .STK-MED ONE 09/23/20 20:59 Glucose, Whole Blood Routine 09/24/20 02:00 MR foot RT wo/w con Routine 09/24/20 02:13 Piperacillin Sodium/Tazobactam [Zosyn] 3.375 gm IV .STK-MED ONE 09/24/20 07:38 Glucose, Whole Blood Routine 09/24/20 07:53 Piperacillin Sodium/Tazobactam [Zosyn] 3.375 gm IV .STK-MED ONE 09/24/20 Breakfast NPO Diet 09/24/20 11:33 Glucose, Whole Blood Routine 09/24/20 12:59 GadobutroL [Gadavist] 10 ml IVPUSH ONCE ONE 09/24/20 13:06 Piperacillin Sodium/Tazobactam [Zosyn] 3.375 gm IV .STK-MED ONE 09/24/20 Lunch Regular Diet 09/24/20 16:41 Glucose, Whole Blood Routine 09/24/20 18:30 amLODIPine Besylate [Norvasc] 5 mg PO DAILY 09/24/20 Dinner Diabetic Diet 09/24/20 20:49 Piperacillin Sodium/Tazobactam [Zosyn] 3.375 gm IV .STK-MED ONE 09/24/20 21:12 Glucose, Whole Blood Routine 09/25/20 02:10 Piperacillin Sodium/Tazobactam [Zosyn] 3.375 gm IV .STK-MED ONE 09/25/20 07:17 Glucose, Whole Blood Routine 09/25/20 07:28 Glucose, Whole Blood Routine 09/25/20 07:34 Vital Signs PROTOCOL 09/25/20 08:30 Heparin Sodium,Porcine 10,000 unit IVPUSH .STK-MED ONE Midazolam HCl/PF [Versed] 2 mg .ROUTE .STK-MED ONE fentaNYL citrate/PF [Sublimaze] 50 mcg .ROUTE .STK-MED ONE 09/25/20 08:31 Atropine Sulfate 1 mg .ROUTE .STK-MED ONE Naloxone HCl [Narcan] 0.4 mg .ROUTE .STK-MED ONE flumazeniL [Romazicon] 0.05 mg .ROUTE .STK-MED ONE 09/25/20 08:33 Heparin Sodium (Porcine)/NS/PF 2,000 unit in 1,000 ml IV As directed Lidocaine HCl 1 % MPF [Xylocaine 1 % MPF] 5 ml .ROUTE .STK-MED ONE iohexoL 300 MG/ML [Omnipaque 300 MG/ML] 100 ml IV .STK-MED ONE iohexoL 300 MG/ML [Omnipaque 300 MG/ML] 50 ml IV .STK-MED ONE 09/25/20 Breakfast NPO Diet 09/25/20 10:14 Lidocaine HCl 1 % MPF [Xylocaine 1 % MPF] 10 ml SUBCUT ONCE ONE 09/25/20 10:16 iohexoL 300 MG/ML [Omnipaque 300 MG/ML] 50 ml IV ONCE ONE 09/25/20 10:17 iohexoL 300 MG/ML [Omnipaque 300 MG/ML] 100 ml IV ONCE ONE 09/25/20 12:55 Glucose, Whole Blood Routine 09/25/20 13:12 Basic Metabolic Panel Urgent Complete Blood Count Auto Diff Stat Partial Thromboplastin Time Stat Prothrombin Time INR Stat 09/25/20 14:05 Piperacillin Sodium/Tazobactam [Zosyn] 3.375 gm IV .STK-MED ONE 09/25/20 17:14 Glucose, Whole Blood Routine 09/25/20 17:57 Glucose, Whole Blood Routine 09/25/20 21:10 Glucose, Whole Blood Routine Piperacillin Sodium/Tazobactam [Zosyn] 3.375 gm IV .STK-MED ONE 09/25/20 22:34 Blood Culture X2 [BC] Routine 09/26/20 05:31 Basic Metabolic Panel DAILY 09/26/20 07:03 Glucose, Whole Blood Routine 09/26/20 08:00 Meropenem 1 gm 0.9 % Sodium Chloride [Ns] 100 ml IV Q8H 09/26/20 08:10 Meropenem 1 gm IV .STK-MED ONE 09/26/20 09:00 Mere 1 gm IV TID 09/26/20 11:16 Glucose, Whole Blood Routine 09/26/20 15:20 Meropenem 1 gm IV .STK-MED ONE 09/26/20 16:26 Glucose, Whole Blood Routine 09/26/20 20:19 Glucose, Whole Blood Routine 09/26/20 23:51 Meropenem 1 gm IV .STK-MED ONE 09/27/20 07:25 Glucose, Whole Blood Routine 09/27/20 09:14 Meropenem 1 gm IV .STK-MED ONE 09/27/20 11:02 Glucose, Whole Blood Routine 09/27/20 16:00 Meropenem 1 gm IV .STK-MED ONE 09/27/20 16:10 Glucose, Whole Blood Routine 09/27/20 20:30 Glucose, Whole Blood Routine 09/27/20 23:43 Meropenem 1 gm IV .STK-MED ONE 09/28/20 07:35 Glucose, Whole Blood Routine 09/28/20 08:32 Meropenem 1 gm IV .STK-MED ONE 09/28/20 11:21 Glucose, Whole Blood Routine 09/28/20 16:12 Meropenem 1 gm IV .STK-MED ONE 09/28/20 16:13 Glucose, Whole Blood Routine 09/28/20 20:10 Glucose, Whole Blood Routine 09/28/20 23:16 Meropenem 1 gm IV .STK-MED ONE 09/29/20 07:09 Glucose, Whole Blood Routine 09/29/20 08:49 Meropenem 1 gm IV .STK-MED ONE Meropenem 1 gm IV .STK-MED ONE 09/29/20 11:04 Glucose, Whole Blood Routine 09/29/20 15:40 Meropenem 1 gm IV .STK-MED ONE 09/29/20 17:03 Glucose, Whole Blood Routine 09/29/20 19:57 Glucose, Whole Blood Routine 09/29/20 23:30 Meropenem 1 gm IV .STK-MED ONE 09/30/20 07:22 Glucose, Whole Blood Routine 09/30/20 08:26 Meropenem 1 gm IV .STK-MED ONE 09/30/20 11:54 Glucose, Whole Blood Routine 09/30/20 16:37 Glucose, Whole Blood Routine 09/30/20 16:48 Meropenem 1 gm IV .STK-MED ONE 09/30/20 19:59 Glucose, Whole Blood Routine 09/30/20 23:49 Meropenem 1 gm IV .STK-MED ONE 10/01/20 06:37 Meropenem 1 gm IV .STK-MED ONE 10/01/20 07:05 Glucose, Whole Blood Routine Laboratory Last Values WBC 16.3 X10*3/uL (4.8-10.8) H 09/25/20 13:12 RBC 3.51 X10*6/uL (4.60-5.80) L 09/25/20 13:12 Hgb 10.6 g/dl (14.0-18.0) L 09/25/20 13:12 Hct 31.1 % (42-52) L 09/25/20 13:12 MCV 88.6 fL (80-98) 09/25/20 13:12 MCH 30.2 pg (27.0-33.0) 09/25/20 13:12 MCHC 34.1 g/dl (31.0-36.0) 09/25/20 13:12 RDW 12.2 % (11.0-16.0) 09/25/20 13:12 Plt Count 452 X10*3/uL (160-400) H D 09/25/20 13:12 MPV 9.1 fL (9.4-12.4) L 09/25/20 13:12 Immature Gran % (Auto) 0.4 % (0.0-0.4) 09/25/20 13:12 Neut % (Auto) 78.0 % (45-73) H 09/25/20 13:12 Lymph % (Auto) 11.4 % (20-40) L 09/25/20 13:12 Wilkinson % (Auto) 8.5 % (2-11) 09/25/20 13:12 Eos % (Auto) 1.4 % (0-4) 09/25/20 13:12 Baso % (Auto) 0.3 % (0-2) 09/25/20 13:12 Lymph # (Auto) 1.9 X10*3/uL (1.2-4.9) 09/25/20 13:12 Wilkinson # (Auto) 1.4 X10*3/uL (0.1-1.2) H 09/25/20 13:12 Eos # (Auto) 0.2 X10*3/uL (0.0-0.4) 09/25/20 13:12 Baso # (Auto) 0.1 X10*3/uL (0.0-0.2) 09/25/20 13:12 Abs Immat Gran (auto) 0.07 X10*3/uL (0.00-0.03) H 09/25/20 13:12 Absolute Neuts (auto) 12.7 X10*3/uL (2.0-8.3) H 09/25/20 13:12 Absolute Nucleated RBC 0.000 X10*3/uL (0.0-0.012) 09/25/20 13:12 Nucleated RBC % (auto) 0.0 /100WBC (0.0-0.2) 09/25/20 13:12 ESR 104 MM/HR (0-15) H 09/21/20 06:08 PT 15.6 SEC (10.8-13.0) H 09/25/20 13:12 INR 1.3 (0.9-1.1) H 09/25/20 13:12 APTT 39.2 SEC (24.1-38.0) H 09/25/20 13:12 Sodium 134 mmol/L (135-145) L 09/26/20 05:31 Potassium 4.1 mmol/l (3.3-5.1) 09/26/20 05:31 Chloride 98 mmol/L (96-108) 09/26/20 05:31 Carbon Dioxide 24 mmol/L (22-29) 09/26/20 05:31 Anion Gap 16 (-20) 09/26/20 05:31 BUN 11 mg/dL (9-16) 09/26/20 05:31 Creatinine 0.76 mg/dL (0.5-1.4) 09/26/20 05:31 Estim Creat Clear Calc 123.5 09/26/20 05:31 Estimated GFR > 60 09/26/20 05:31 POC Glucose 265 mg/dL (60-115) H 10/01/20 07:05 Random Glucose 246 mg/dL (60-115) H 09/26/20 05:31 Lactic Acid 1.0 mmol/L (0.5-2.0) 09/20/20 17:47 Calcium 8.3 mg/dL (8.4-10.2) L 09/26/20 05:31 Total Bilirubin 0.8 mg/dL (0.0-1.0) 09/20/20 17:47 Direct Bilirubin 0.4 mg/dL (0.0-0.5) 09/20/20 17:47 AST 9 U/L (5-37) 09/20/20 17:47 ALT 7 U/L (0-40) 09/20/20 17:47 Alkaline Phosphatase 91 U/L (39-117) 09/20/20 17:47 C-Reactive Protein 15.35 mg/dL (< or = 0.50) H 09/21/20 06:08 Total Protein 7.1 g/dL (6.5-8.0) 09/20/20 17:47 Albumin 3.8 g/dL (3.5-5.0) 09/20/20 17:47 Lipase < 4 U/L (8-78) L 09/20/20 17:47 Urine Color YELLOW 09/24/20 10:28 Urine Appearance CLEAR 09/24/20 10:28 Urine pH 6.0 (5.0-8.0) 09/24/20 10:28 Ur Specific [place] 1.025 (1.005-1.025) 09/24/20 10:28 Urine Protein 2+ MG/DL (NEG-TRACE) H 09/24/20 10:28 Urine Glucose (UA) NEG MG/DL (NEG) 09/24/20 10:28 Urine Ketones 40 MG/DL (NEG) 09/24/20 10:28 Urine Blood TRACE (NEG) 09/24/20 10:28 Urine Nitrite NEG (NEG) 09/24/20 10:28 Ur Leukocyte Esterase NEG (NEG) 09/24/20 10:28 Urine RBC 0-2 /HPF (0) 09/24/20 10:28 Urine WBC 0-2 /HPF (0-4) 09/24/20 10:28 Ur Squamous Epith Cells TRACE /LPF 09/24/20 10:28 Urine Bacteria NONE /LPF 09/24/20 10:28 COVID-19 (DELIA) Negative (Negative) 09/20/20 17:48 COVID-19 Clin Com See Note 09/20/20 17:48 Discharge Plan Discharge Anticipated Discharge Date/Time: 10/01/20 13:36 Patient Disposition: Home Health Service Referrals: [facility] [Other] (Home Infusion Medication/ Infusion Supplies) [facility] [Outside] (Nursing for IV Medication teaching and administration.) Xiao Ortiz CHANNEL ACCOUNT MANAGER [Primary Care Provider] - Discharge Medications: New ertapenem [Invanz] 1 gram recon soln 1 g IM DAILY Qty: 32 RF: 0 metronidazole [Flagyl] 500 mg tablet 500 mg PO BID Qty: 28 RF: 0 amlodipine 10 mg Tablet 10 mg PO DAILY Qty: 30 RF: 0 oxycodone 5 mg Tablet 5 mg PO Q6H PRN (Reason: Pain, Moderate (Pain Scale 4-6) Qty: 12 RF: 0 Continued clopidogrel [Plavix] 75 mg tablet 75 mg PO DAILY Qty: 30 RF: 0 aspirin [Adult Aspirin Regimen] 81 mg tablet,delayed release (DR/EC) 81 mg PO DAILY Qty: 30 RF: 0 Discontinued doxycycline hyclate 100 mg tablet 100 mg PO BID RF: 0 cephalexin 500 mg capsule 500 mg PO TID RF: 0 Discharge Orders: Discharge Order (Routine); Ordered 10/01/20 Ordered By: Trenton Neal Diet: advance to usual diet Activity on Discharge: As tolerated Visit Report Forms: Patient Portal Discharge page Care Plan Goals: Resolution of osteomylitis and bacteremia Health Concerns: Peripheral vascuar disease and risk of loosing limb Plan of Treatment: IV antibiotics as recommended and PO Flagyl, follow up with your Doctor, follow up with Dr. Hammer Discharge Date/Time: 10/01/20 16:06
--- NOTE | 2020-10-01 11:58 | HO.PICC ---
PICC Line Insertion NPICC Diagnosis: OSTEOMYELITIS Indication: [facility] IV ANTIBIOTICS Pertinent Labs: REVIEWED Technique: Following informed consent including risks, benefits and alternatives and using sterile technique including cap and mask, sterile gown, glove and drape, the RIGHT arm was prepped and draped in the usual sterile fashion of full barrier technique with CHG. Following completion of Marcus Protocol the skin and soft tissues were anesthetized with 1% Lidocaine plain. Using ultrasound guidance, BASILIC vein access was obtained IN SINGLE ATTEMPT BY THIS RN; ATTEMPTED ONCE BY BY PREVIOUS RN. Over an 0.018 wire through peel-away sheath, a 4 BELARUSIAN SINGLE LUMEN PASV PICC line was positioned. Catheter length is 47 CM internal length, 2 CM external length, for a total trimmed length of 49 CM. The procedure was performed in ULTRASOUND 1. Tip verification was performed by Chance Carpio with Keven 3CG. Tip located in SVC. Ultrasound was used to document vein patency and for needle entry. A formal ultrasound picture and cardiac rhythm strip was recorded. [facility] [employer] Territory Manager has released the line for use and it is currently dressed with a StatLock, Tegaderm, and CHG disc. Verification has been performed for blood return and line patency. Arm Circumference: 27.5 CM Equipment: [employer] POWER PICC SOLO Catheter Type: 4 BELARUSIAN SINGLE LUMEN PASV PICC Lot #: [id number]
[2020-10-01 12:00] VITALS: BP 164/95; PULSE 91; RESP 18; TEMP 36.3; O2SAT 98
[2020-10-01 12:09] LABS: Glucose, Whole Blood 284 mg/dL (60-115)
--- NOTE | 2020-10-01 14:37 | MHC.CM.PN ---
PT DISCHARGING HOME WITH [facility], FAMILY TO TRANSPORT. PT AND RECEIVED TEACHING ON PICC LINE FROM COMPACTOR DRIVER FROM [facility]. CM TO UPDATE BOTH [facility] AND [facility] UPON DISCHARGE, PT WILL DISCHARGE AFTER RECEIVING ONE ADDITIONAL DOSE OF HIS ANTIBIOTICS.
[2020-10-01] MEDS: Ertapenem Sodium 1 GM in 0.9 % Sodium Chloride 50 ML IV (15:23)
== END 2020-10-01 16:06 | disposition home health service (06) | DRG 854 ==
LOC: HO.ED 18:58 → HO.IMC 09-21 00:51 → HO.S3 09-28 18:44
PROVIDERS: Internal Medicine; Surgery Vascular Surgery; Admitting Provider Internal Medicine; Emergency Provider Emergency Medicine; PCP Nurse Practitioner; Visit Provider Internal Medicine
PROC: 04CM3ZZ Extirpation of Matter from Right Popliteal Artery, Percutaneous Approach (ICD-10-PCS; principal; 2020-09-25 08:30)
DX: A41.9 Sepsis, unspecified organism (principal); L97.419 Non-pressure chronic ulcer of right heel and midfoot with unspecified severity; M86.9 Osteomyelitis, unspecified; E10.621 Type 1 diabetes mellitus with foot ulcer; E10.51 Type 1 diabetes mellitus with diabetic peripheral angiopathy without gangrene; I70.201 Unspecified atherosclerosis of native arteries of extremities, right leg; E10.69 Type 1 diabetes mellitus with other specified complication; Z20.828 Contact with and (suspected) exposure to other viral communicable diseases; Z79.1 Long term (current) use of non-steroidal anti-inflammatories (NSAID); Z79.02 Long term (current) use of antithrombotics/antiplatelets; Z79.82 Long term (current) use of aspirin; Z79.891 Long term (current) use of opiate analgesic; Z79.899 Other long term (current) drug therapy
CPT/HCPCS: 36415; 36573; 37224; 71045; 73720; 76937; 80048; 80076; 81001; 82947; 83605; 83690; 85025; 85027; 85610; 85652; 85730; 86140; 87040; 87076; 87185; 87635; 96365; 96367; 96375; 99152; 99153; 99284; A9585; C1725; C1751; C1760; C1769; C1887; J1335; J1650; J1956; J2185; J2270; J2405; J2543; J3370; Q9967

== ENCOUNTER 2020-10-08 13:03 | Outpatient (REF) | payer OTHER, SELFPAY ==
[2020-10-08 13:07] LABS: MANUAL DIFF FLAG NO
[2020-10-08 13:12] LABS: Basophils Absolute Auto 0.1 X10*3/uL (0.0-0.2); Basophils Percent Auto 0.9 % (0-2); Eosinophils Absolute Auto 0.2 X10*3/uL (0.0-0.4); Eosinophils Percent Auto 2.8 % (0-4); Hemoglobin 10.5 g/dl (14.0-18.0); Imm Gran Abs Auto 0.03 X10*3/uL (0.00-0.03); Imm Gran Pct Auto 0.4 % (0.0-0.4); Lymphocytes Percent Auto 25.4 % (20-40); Mean Corpuscular HGB Conc 32.8 g/dl (31.0-36.0); Mean Corpuscular Hemoglobin 29.2 pg (27.0-33.0); Mean Corpuscular Volume 89.1 fL (80-98); Mean Platelet Volume 8.8 fL (9.4-12.4); Monocytes Absolute Auto 0.6 X10*3/uL (0.1-1.2); Monocytes Percent Auto 7.7 % (2-11); Neutrophils Absolute Auto 4.9 X10*3/uL (2.0-8.3); Neutrophils Percent Auto 62.8 % (45-73); Platelet Count 564 X10*3/uL (160-400); Red Blood Count 3.59 X10*6/uL (4.60-5.80); Red Cell Distribution Width 12.9 % (11.0-16.0); White Blood Count 7.8 X10*3/uL (4.8-10.8)
[2020-10-08 13:59] LABS: Alanine Aminotransferase 8 U/L (0-40); Albumin Level 1.9 g/dL (3.5-5.0); Alkaline Phosphatase 41 U/L (39-117); Aspartate Amino Transferase 6 U/L (5-37); Bilirubin Direct < 0.2 mg/dL (0.0-0.5); Bilirubin Total < 0.2 mg/dL (0.0-1.0); Blood Urea Nitrogen 12 mg/dL (9-16); Estimated Glomerular Filt Rate > 60; Total Protein 3.7 g/dL (6.5-8.0)
== END 2020-10-08 13:04 | disposition home or self-care (01) ==
LOC: HO.LNP 13:03
PROVIDERS: Visit Provider Internal Medicine
DX: Z13.89 Encounter for screening for other disorder (principal)
CPT/HCPCS: 80076; 82565; 84520; 85025

== ENCOUNTER → 2020-10-09 10:14 | Outpatient (BNVA) | payer OTHER, SELFPAY | PROVIDERS: Visit Provider Internal Medicine | DX: Z76.89 Persons encountering health services in other specified circumstances (principal) ==

== ENCOUNTER → 2020-10-11 13:18 | Outpatient (BNVA) | payer OTHER, SELFPAY | PROVIDERS: PCP Nurse Practitioner; Visit Provider Surgery Vascular Surgery | DX: Z76.89 Persons encountering health services in other specified circumstances (principal) ==

== ENCOUNTER 2020-10-15 12:50 | Outpatient (REF) | payer OTHER, SELFPAY ==
[2020-10-15 12:53] LABS: MANUAL DIFF FLAG NO
[2020-10-15 12:58] LABS: Basophils Absolute Auto 0.1 X10*3/uL (0.0-0.2); Basophils Percent Auto 0.9 % (0-2); Eosinophils Absolute Auto 0.3 X10*3/uL (0.0-0.4); Eosinophils Percent Auto 3.3 % (0-4); Hemoglobin 10.7 g/dl (14.0-18.0); Imm Gran Abs Auto 0.03 X10*3/uL (0.00-0.03); Imm Gran Pct Auto 0.4 % (0.0-0.4); Lymphocytes Absolute Auto 2.3 X10*3/uL (1.2-4.9); Lymphocytes Percent Auto 28.8 % (20-40); Mean Corpuscular HGB Conc 33.4 g/dl (31.0-36.0); Mean Corpuscular Hemoglobin 29.3 pg (27.0-33.0); Mean Corpuscular Volume 87.7 fL (80-98); Mean Platelet Volume 8.9 fL (9.4-12.4); Monocytes Absolute Auto 0.7 X10*3/uL (0.1-1.2); Monocytes Percent Auto 8.6 % (2-11); Neutrophils Absolute Auto 4.6 X10*3/uL (2.0-8.3); Platelet Count 349 X10*3/uL (160-400); Red Blood Count 3.65 X10*6/uL (4.60-5.80); Red Cell Distribution Width 13.5 % (11.0-16.0)
[2020-10-15 14:00] LABS: Alanine Aminotransferase 14 U/L (0-40); Albumin Level 3.4 g/dL (3.5-5.0); Alkaline Phosphatase 73 U/L (39-117); Aspartate Amino Transferase 12 U/L (5-37); Bilirubin Direct < 0.2 mg/dL (0.0-0.5); Bilirubin Total 0.3 mg/dL (0.0-1.0); Blood Urea Nitrogen 14 mg/dL (9-16); Estimated Glomerular Filt Rate > 60; Total Protein 6.7 g/dL (6.5-8.0)
== END 2020-10-15 12:51 | disposition home or self-care (01) ==
LOC: HO.LNP 12:50
PROVIDERS: Visit Provider Internal Medicine
DX: M86.171 Other acute osteomyelitis, right ankle and foot (principal)
CPT/HCPCS: 80076; 82565; 84520; 85025

== ENCOUNTER 2020-10-22 12:15 | Outpatient (REF) | payer OTHER, SELFPAY ==
[2020-10-22 12:20] LABS: MANUAL DIFF FLAG NO
[2020-10-22 12:29] LABS: Basophils Absolute Auto 0.1 X10*3/uL (0.0-0.2); Basophils Percent Auto 0.8 % (0-2); Eosinophils Absolute Auto 0.4 X10*3/uL (0.0-0.4); Hematocrit 31.6 % (42-52); Hemoglobin 10.5 g/dl (14.0-18.0); Imm Gran Abs Auto 0.02 X10*3/uL (0.00-0.03); Imm Gran Pct Auto 0.3 % (0.0-0.4); Lymphocytes Absolute Auto 1.7 X10*3/uL (1.2-4.9); Lymphocytes Percent Auto 26.9 % (20-40); Mean Corpuscular HGB Conc 33.2 g/dl (31.0-36.0); Mean Corpuscular Hemoglobin 29.3 pg (27.0-33.0); Mean Corpuscular Volume 88.3 fL (80-98); Mean Platelet Volume 9.1 fL (9.4-12.4); Monocytes Absolute Auto 0.7 X10*3/uL (0.1-1.2); Monocytes Percent Auto 11.1 % (2-11); Neutrophils Absolute Auto 3.4 X10*3/uL (2.0-8.3); Neutrophils Percent Auto 54.9 % (45-73); Platelet Count 272 X10*3/uL (160-400); Red Blood Count 3.58 X10*6/uL (4.60-5.80); Red Cell Distribution Width 13.9 % (11.0-16.0); White Blood Count 6.1 X10*3/uL (4.8-10.8)
[2020-10-22 13:17] LABS: Erythrocyte Sedimentation Rate 44 MM/HR (0-15)
[2020-10-22 13:52] LABS: Estimated Average Glucose 189 mg/dL; Hemoglobin A1c % 8.2 %
[2020-10-22 14:02] LABS: Alanine Aminotransferase 21 U/L (0-40); Albumin Level 3.6 g/dL (3.5-5.0); Alkaline Phosphatase 76 U/L (39-117); Anion Gap 16 (12-20); Aspartate Amino Transferase 17 U/L (5-37); Bilirubin Direct < 0.2 mg/dL (0.0-0.5); Bilirubin Total 0.3 mg/dL (0.0-1.0); Blood Urea Nitrogen 16 mg/dL (9-16); C Reactive Protein 1.66 mg/dL (< or = 0.50); Calcium 8.5 mg/dL (8.4-10.2); Carbon Dioxide 23 mmol/L (22-29); Chloride 106 mmol/L (96-108); Estimated Glomerular Filt Rate > 60; Glucose Random 161 mg/dL (60-115); Potassium 4.6 mmol/l (3.3-5.1); Sodium 140 mmol/L (135-145); Total Protein 6.7 g/dL (6.5-8.0)
== END 2020-10-22 12:16 | disposition home or self-care (01) ==
LOC: HO.LNP 12:15
PROVIDERS: Referring Provider Physician Assistant; Visit Provider Internal Medicine
DX: M86.171 Other acute osteomyelitis, right ankle and foot (principal)
CPT/HCPCS: 80053; 80076; 82248; 83036; 84134; 85025; 85652; 86140

== ENCOUNTER → 2020-10-25 12:52 | Outpatient (BNVA) | payer OTHER, SELFPAY | PROVIDERS: PCP Nurse Practitioner; Visit Provider Surgery Vascular Surgery ==

== ENCOUNTER → 2020-10-31 13:15 | Outpatient (BNVA) | payer OTHER, SELFPAY | PROVIDERS: PCP Nurse Practitioner; Visit Provider Internal Medicine ==

== ENCOUNTER 2020-11-05 09:45 | Day surgery (SDC) | payer OTHER, SELFPAY ==
[2020-10-31 10:09] VITALS: BMI 27.3
--- NOTE | 2020-10-31 12:59 | P.CONAN_ITS ---
Documented by User: Niya Jiang 10/31/20 13:03 HPI - Anesthesia Eval Consult details Narrative: 49yo M for Right 4th Toe Amputation [facility] D/C 10/01/20 with bacteremia. PICC line with at home abx. S/P angiogram RLE with drug coated balloon 09/25/20 - started on plavix/asa PMFSH Past Medical History Medical History (Updated 11/05/20 @ 10:58 by Chika De La Paz) Diabetes GERD (gastroesophageal reflux disease) History of angiography PAD (peripheral artery disease) PICC (peripherally inserted central catheter) in place Social History Social History Household Members: Significant Other and Other Housing: House Alcohol intake: current Alcohol intake frequency: holidays/special occasions only Smoking Status: Former smoker Tobacco Type: Cigarette Years Smoked: 15 Smoking Quit Date: 09/28/2020 Second Hand Smoke Exposure: No Advance Directives: No Advance Directives Information Provided: No Advance Directives on File: No service: No Current occupational status: employed Meds Allergies Allergy/AdvReac Type Severity Reaction Status Date / Time No Known Allergies Allergy Verified 11/05/20 10:00 Home Medications Medication Instructions Recorded Confirmed Type insulin glargine [Basaglar KwikPen 25 unit SUBCUT BEDTIME 10/31/20 10/31/20 History U-100 Insulin] insulin lispro [Humalog KwikPen 15 unit SUBCUT TID 10/31/20 10/31/20 History Insulin] metformin 1 tab PO BID 10/31/20 10/31/20 History Exam Exam Date and Time: October 31, 2020 1259 Height,Weight and Vital Signs: Height 5 ft 7 in Weight 79.379 kg Pertinent Lab Results Pertinent Lab Results: Laboratory Tests 10/22/20 10/22/20 10:15 10:15 WBC 6.1 Hgb 10.5 L Hct 31.6 L Plt Count 272 Sodium 140 Potassium 4.6 Chloride 106 Carbon Dioxide 23 BUN 16 Creatinine 0.80 Documented by User: Chika De La Paz 11/05/20 11:28 COUNT INCLUDES THE [facility] Past Medical History Medical History (Updated 11/05/20 @ 10:58 by Chika De La Paz) Diabetes GERD (gastroesophageal reflux disease) History of angiography PAD (peripheral artery disease) PICC (peripherally inserted central catheter) in place Family History Family history of problems with anesthesia: No Surgical History History of Problems with Anesthesia: No (Just conscious sedation for angioplasty) Social History Social History Household Members: Significant Other and Other Housing: House Alcohol intake: current Alcohol intake frequency: holidays/special occasions only Smoking Status: Former smoker Tobacco Type: Cigarette Years Smoked: 15 Smoking Quit Date: 09/28/2020 Second Hand Smoke Exposure: No Advance Directives: No Advance Directives Information Provided: No Advance Directives on File: No service: No Current occupational status: employed Meds Allergies Allergy/AdvReac Type Severity Reaction Status Date / Time No Known Allergies Allergy Verified 11/05/20 10:00 Home Medications Medication Instructions Recorded Confirmed Type insulin glargine [Basaglar KwikPen 25 unit SUBCUT BEDTIME 10/31/20 10/31/20 History U-100 Insulin] insulin lispro [Humalog KwikPen 15 unit SUBCUT TID 10/31/20 10/31/20 History Insulin] metformin 1 tab PO BID 10/31/20 10/31/20 History Exam Height,Weight and Vital Signs: Vital Signs Temp Pulse Resp BP Pulse Ox 11/05/20 10:17 98.2 F 93 18 137/96 H 99 Pertinent Lab Results Pertinent Lab Results: Laboratory Results - last 24 hr 11/05/20 11/05/20 11/05/20 10:00 10:00 10:00 WBC 9.0 RBC 3.87 L Hgb 11.2 L Hct 33.5 L MCV 86.6 MCH 28.9 MCHC 33.4 RDW 14.0 Plt Count 334 MPV 8.7 L Absolute Nucleated RBC 0.000 Nucleated RBC % (auto) 0.0 PT 11.4 D INR 1.0 APTT 37.3 Sodium 137 Potassium 4.5 Chloride 103 Carbon Dioxide 27 Anion Gap 12 BUN 16 Creatinine 0.91 Estim Creat Clear Calc 101.3 Estimated GFR > 60 POC Glucose Random Glucose 224 H D Calcium 9.3 D 11/05/20 10:29 WBC RBC Hgb Hct MCV MCH MCHC RDW Plt Count MPV Absolute Nucleated RBC Nucleated RBC % (auto) PT INR APTT Sodium Potassium Chloride Carbon Dioxide Anion Gap BUN Creatinine Estim Creat Clear Calc Estimated GFR POC Glucose 217 H Random Glucose Calcium Airway Mallampati Class: II TM Dist: >3cm Neck ROM: Full Loose/Missing/Broken Teeth: Yes (Bottom front) Heart: RRR Lungs: CTAB Assessment and Plan Assessment Anesthesia Assessment: Anesthesia Plan Discussed and Chart Reviewed Final Anesthetic Review NPO: Yes ASA Class: III Final Preanesthetic Review: No Changes in Pt Med Stat, Meds/Allgs Chart Reviewed, Consent Obtained/Reviewed and Anes Risks/Benef Reviewed Patient Risk: Intermediate Procedure Risk: Low Assessment/Block/Sedation in SS: Assess/Block/Sedation-SS Anesthetic Plan Anesthetic Plan: GA Disposition: Standard PACU
[2020-11-05 10:16] LABS: Hematocrit 33.5 % (42-52); Hemoglobin 11.2 g/dl (14.0-18.0); Mean Corpuscular HGB Conc 33.4 g/dl (31.0-36.0); Mean Corpuscular Hemoglobin 28.9 pg (27.0-33.0); Mean Corpuscular Volume 86.6 fL (80-98); Mean Platelet Volume 8.7 fL (9.4-12.4); Platelet Count 334 X10*3/uL (160-400); Red Blood Count 3.87 X10*6/uL (4.60-5.80)
[2020-11-05 10:17] VITALS: BP 137/96; PULSE 93; RESP 18; TEMP 36.8; O2SAT 99
[2020-11-05 10:19] LABS: Prothrombin Time 11.4 SEC (10.8-13.0)
[2020-11-05 10:22] LABS: Partial Thromboplastin Time 37.3 SEC (24.1-38.0)
[2020-11-05] MEDS: Lactated Ringers 1,000 ML 100 ML IVCONT (10:33)
[2020-11-05 10:41] LABS: Glucose, Whole Blood 217 mg/dL (60-115)
[2020-11-05 11:00] LABS: Anion Gap 12 (12-20); Blood Urea Nitrogen 16 mg/dL (9-16); Calcium 9.3 mg/dL (8.4-10.2); Carbon Dioxide 27 mmol/L (22-29); Chloride 103 mmol/L (96-108); Creatinine Clr Calc Pharmacy 101.3; Estimated Glomerular Filt Rate > 60; Glucose Random 224 mg/dL (60-115); Potassium 4.5 mmol/L (3.3-5.1); Sodium 137 mmol/L (135-145)
--- NOTE | 2020-11-05 11:54 | MHC.SHP ---
Pre-Procedural Eval Section B Chief Complaint: type 2 diabetes foot ulcer Allergies: Allergies Allergy/AdvReac Type Severity Reaction Status Date / Time No Known Allergies Allergy Verified 11/05/20 10:00 Plan I have reviewed the history and physical and performed a pertinent physical examination on my patient. No changes have occurred unless specified.
--- NOTE | 2020-11-05 13:01 | P.OP_ITS ---
Operative Note Operative Note Date of Service: 11/05/20 Narrative: Operative note by [facility] Preoperative diagnosis: 1, Right 4th toe gangrene 2. Nonhealing right foot ulcer plantar aspect Postoperative diagnosis: Same Procedure: 1. Right 4th toe amputation 2. Debridement right foot into muscle 3. Placement of AmnioFix Surgeon:Bebeto Hammer M.D. Help Desk Internship: None Anesthesia: General Specimens: 1 Drains: None Estimated blood loss: Minimal Indications: 49-year-old gentleman with diabetes who has had a nonhealing 4th toe ulcer which has progressed to dry gangrene. In addition he has developed a plantar aspect ulceration. He now presents for toe amputation and debridement. Risks benefits complications were discussed in detail with the patient. He understood and consented. Procedure in detail: Patient was taken to the operating room prior to which a time-out was called for patient identification site verification. Right foot was prepped and draped in standard surgical fashion. After administration of general [facility] incision was created over the 4th toe. This was taken down to bone and the metatarsal head. The toe was subsequently resected. The wound was thoroughly irrigated out. Deep layer was reapproximated using 2 0 Vicryl. Skin was closed with a 4-0 nylon suture in a mattress fashion. Next our attention was turned to the nonhealing plantar foot ulceration. This initially measured 1.5 x 1.5 x 0.2 cm. Using pickups 15 blade and Metzenbaum scissors deep layer was cleaned out. It was subsequently irrigated out. Adequate hemostasis was achieved. At this point due to chronicity of the nonhealing ulcer a piece of AmnioFix 2 x 3 cm was then placed into the wound. This was appropriately hydrated. At this 0.0 form and a sterile dressing were applied. At the end the case sponge has been counts were correct. Patient tolerated the procedure well returned to recovery with stable vitals. This note is constructed using voice recognition software. While every effort has been made to ensure accuracy, student ambassador errors may have been included. Thank you for allowing me to participate in the care of your patient. Yours sincerely, Bebeto Hammer MD, FACS, R.P.V.I.
[2020-11-05 13:02] VITALS: BP 111/71; PULSE 81; RESP 16; TEMP 36.6; O2SAT 100
[2020-11-05 13:07] VITALS: BP 120/70; PULSE 86; RESP 16; O2SAT 97
[2020-11-05 13:12] VITALS: BP 133/77; PULSE 86; RESP 16; O2SAT 98
--- NOTE | 2020-11-05 13:16 | HO.POSTANES ---
Post Anesthesia Evaluation Post Anesthesia Evaluation Vital Signs: Vital Signs Temp Pulse Resp BP Pulse Ox 11/05/20 10:17 98.2 F 93 18 137/96 H 99 Anesthesia: General LMA Mental Status: Awake Pain Control: Satisfactory Nausea/Vomiting: None Hydration: Adequate Anesthesia-Related Issues: No Anes. Related Issues
[2020-11-05 13:17] VITALS: BP 138/90; PULSE 88; RESP 15; O2SAT 98
[2020-11-05 13:33] VITALS: BP 144/88; PULSE 89; RESP 16; TEMP 36.6; O2SAT 97
== END 2020-11-05 14:28 ==
LOC: HO.SSS 09:46
PROVIDERS: PCP Nurse Practitioner; Visit Provider Surgery Vascular Surgery
PROC: (CPT 28810; principal; 2020-11-05 11:50)
DX: E11.621 Type 2 diabetes mellitus with foot ulcer (principal); L97.419 Non-pressure chronic ulcer of right heel and midfoot with unspecified severity; I96 Gangrene, not elsewhere classified; M86.171 Other acute osteomyelitis, right ankle and foot; Z79.4 Long term (current) use of insulin
CPT/HCPCS: 28810; 11043; 36415; 80048; 82947; 85027; 85610; 85730; 88305; 88311; J0690; J2250; J2405; J3010; J3590

== ENCOUNTER → 2020-11-20 12:51 | Outpatient (BNVA) | payer OTHER, SELFPAY | PROVIDERS: PCP Nurse Practitioner; Visit Provider Surgery Vascular Surgery ==

== ENCOUNTER → 2020-11-21 13:03 | Outpatient (BNVA) | payer OTHER, SELFPAY | PROVIDERS: PCP Nurse Practitioner; Visit Provider Internal Medicine ==

== ENCOUNTER → 2020-12-04 13:53 | Outpatient (BNVA) | payer OTHER, SELFPAY | PROVIDERS: PCP Nurse Practitioner; Visit Provider Surgery Vascular Surgery ==

== ENCOUNTER → 2020-12-18 13:07 | Outpatient (BNVA) | payer OTHER, SELFPAY | PROVIDERS: PCP Nurse Practitioner; Visit Provider Surgery Vascular Surgery ==

== ENCOUNTER → 2021-01-03 09:04 | Outpatient (BNVA) | payer OTHER, SELFPAY | PROVIDERS: PCP Nurse Practitioner; Visit Provider Surgery Vascular Surgery ==

== ENCOUNTER 2021-02-05 09:00 | Outpatient (RCR) | payer OTHER, SELFPAY ==
--- NOTE | ~2021-02-05 | XR_ITS ---
EXAMINATION: XR FOOT, RIGHT CLINICAL INFORMATION: Nonhealing wound. COMPARISON: 02/11/2021 TECHNIQUE: AP, lateral, and oblique views of the right foot. FINDINGS: 3 views of the right foot again demonstrate patient to be status post transmetatarsal amputation of the right 4th toe. Some calcification is seen within the soft tissues. The appearance is similar to prior study of 02/11/2021 without definite progression in bony destruction or erosion. Remainder of the bones of the foot appear unremarkable. Vascular calcifications are present. No gas within the soft tissues identified. XR/XR foot RT min 3V IMPRESSION: Stable appearance of the right 4th toe digit status post amputation.
--- NOTE | ~2021-02-05 | XR_ITS ---
EXAMINATION: XR CHEST CLINICAL INFORMATION: Preprocedure. COMPARISON: 09/20/2020 TECHNIQUE: 2 views of the chest were obtained. FINDINGS: Lungs clear. Heart and pulmonary vessels are normal. No change from the prior exam. XR/XR chest 2V IMPRESSION: No active disease.
--- NOTE | ~2021-02-05 | XR_ITS ---
EXAMINATION: XR FOOT, RIGHT CLINICAL INFORMATION: Evaluate for fourth toe osteomyelitis. COMPARISON: Most recent right foot MRI dated 09/24/2020. TECHNIQUE: AP, lateral, and oblique views of the right foot. FINDINGS: Absence of the 4th phalanx with diffuse osseous erosion at the 4th metatarsal head. There are multiple areas of soft tissue ossification which appears irregular and measures up to 0.5 cm, likely representing the sequela of a right. Findings are likely consistent with a combination of 4th phalangeal resection and acute osteomyelitis. No acute fracture or dislocation. Atherosclerotic calcifications. XR/XR foot RT min 3V IMPRESSION: Absence of the 4th phalanx with diffuse osseous erosions at the 4th metatarsal head as well as multiple areas of irregular soft tissue ossification. Findings are likely consistent with a combination of 4th phalangeal resection and acute osteomyelitis.
[2021-03-01 14:19] LABS: MANUAL DIFF FLAG NO
[2021-03-01 14:33] LABS: Basophils Absolute Auto 0.1 X10*3/uL (0.0-0.2); Basophils Percent Auto 0.8 % (0-2); Eosinophils Absolute Auto 0.3 X10*3/uL (0.0-0.4); Hematocrit 34.9 % (42-52); Hemoglobin 11.3 g/dl (14.0-18.0); Imm Gran Abs Auto 0.03 X10*3/uL (0.00-0.03); Imm Gran Pct Auto 0.4 % (0.0-0.4); Lymphocytes Absolute Auto 2.4 X10*3/uL (1.2-4.9); Lymphocytes Percent Auto 27.7 % (20-40); Mean Corpuscular HGB Conc 32.4 g/dl (31.0-36.0); Mean Corpuscular Hemoglobin 28.6 pg (27.0-33.0); Mean Corpuscular Volume 88.4 fL (80-98); Mean Platelet Volume 9.5 fL (9.4-12.4); Monocytes Absolute Auto 0.9 X10*3/uL (0.1-1.2); Neutrophils Absolute Auto 4.9 X10*3/uL (2.0-8.3); Neutrophils Percent Auto 57.1 % (45-73); Platelet Count 421 X10*3/uL (160-400); Red Blood Count 3.95 X10*6/uL (4.60-5.80); Red Cell Distribution Width 13.6 % (11.0-16.0); White Blood Count 8.5 X10*3/uL (4.8-10.8)
[2021-03-01 14:39] LABS: Estimated Average Glucose 166 mg/dL; Hemoglobin A1c % 7.4 %
[2021-03-01 14:41] LABS: Anion Gap 16 (12-20); Blood Urea Nitrogen 19 mg/dL (9-16); C Reactive Protein 0.87 mg/dL (< or = 0.50); Carbon Dioxide 23 mmol/L (22-29); Chloride 105 mmol/L (96-108); Estimated Glomerular Filt Rate > 60; Glucose Random 159 mg/dL (60-115); Sodium 139 mmol/L (135-145)
[2021-03-01 15:20] LABS: Erythrocyte Sedimentation Rate 59 MM/HR (0-15)
[2021-04-25 07:47] LABS: MANUAL DIFF FLAG NO
[2021-04-25 07:59] LABS: Basophils Absolute Auto 0.1 X10*3/uL (0.0-0.2); Basophils Percent Auto 0.7 % (0-2); Eosinophils Absolute Auto 0.4 X10*3/uL (0.0-0.4); Hematocrit 27.1 % (42-52); Hemoglobin 8.5 g/dl (14.0-18.0); Imm Gran Abs Auto 0.04 X10*3/uL (0.00-0.03); Imm Gran Pct Auto 0.4 % (0.0-0.4); Lymphocytes Absolute Auto 2.5 X10*3/uL (1.2-4.9); Lymphocytes Percent Auto 27.3 % (20-40); Mean Corpuscular HGB Conc 31.4 g/dl (31.0-36.0); Mean Corpuscular Hemoglobin 27.3 pg (27.0-33.0); Mean Corpuscular Volume 87.1 fL (80-98); Mean Platelet Volume 9.5 fL (9.4-12.4); Monocytes Absolute Auto 0.9 X10*3/uL (0.1-1.2); Monocytes Percent Auto 9.4 % (2-11); Neutrophils Absolute Auto 5.3 X10*3/uL (2.0-8.3); Neutrophils Percent Auto 58.2 % (45-73); Platelet Count 380 X10*3/uL (160-400); Red Blood Count 3.11 X10*6/uL (4.60-5.80); Red Cell Distribution Width 14.8 % (11.0-16.0); White Blood Count 9.1 X10*3/uL (4.8-10.8)
[2021-04-25 08:06] LABS: Estimated Average Glucose 169 mg/dL; Hemoglobin A1c % 7.5 %
[2021-04-25 08:18] LABS: Anion Gap 12 (12-20); Blood Urea Nitrogen 16 mg/dL (9-16); Calcium 8.6 mg/dL (8.4-10.2); Carbon Dioxide 26 mmol/L (22-29); Chloride 105 mmol/L (96-108); Estimated Glomerular Filt Rate > 60; Glucose Random 271 mg/dL (60-115); Potassium 4.5 mmol/L (3.3-5.1); Sodium 138 mmol/L (135-145)
[2021-04-25 08:49] LABS: Erythrocyte Sedimentation Rate 44 MM/HR (0-15)
== END 2021-07-09 07:23 | disposition home or self-care (01) ==
LOC: HO.WCC 09:00
PROVIDERS: PCP Nurse Practitioner; Visit Provider Physician Assistant
DX: E10.621 Type 1 diabetes mellitus with foot ulcer (principal); L97.514 Non-pressure chronic ulcer of other part of right foot with necrosis of bone; L97.525 Non-pressure chronic ulcer of other part of left foot with muscle involvement without evidence of necrosis; E10.40 Type 1 diabetes mellitus with diabetic neuropathy, unspecified; E10.65 Type 1 diabetes mellitus with hyperglycemia; L84 Corns and callosities; H83.8X1 Other specified diseases of right inner ear; T70.0XXD Otitic barotrauma, subsequent encounter; Z87.891 Personal history of nicotine dependence; Z89.421 Acquired absence of other right toe(s)
CPT/HCPCS: 10060; 11042; 11044; 17250; 36415; 71046; 73630; 80048; 83036; 84134; 85025; 85652; 86140; 87071; 87077; 87147; 87186; 87205; 88304; 88311; 99183; 99212; 99213

== ENCOUNTER 2021-02-11 12:58 | Outpatient (REF) | payer OTHER, SELFPAY ==
--- NOTE | ~2021-02-11 | US_ITS ---
EXAMINATION: COLOR-FLOW DUPLEX IMAGING OF THE BILATERAL LOWER EXTREMITY ARTERIAL SYSTEM. VELOCITY MEASUREMENTS THROUGHOUT THE FEMORAL ARTERIES WITH ANKLE-BRACHIAL PERIPHERAL ARTERIAL TESTING. Interventional Radiologist: Clemente Flores M.D., F.S.I.R., F.A.C.R. CLINICAL INFORMATION: This is a 50-year-old male with history of smoking and vascular surgery. Peripheral arterial disease. COMPARISON: Comparison is made to a previous duplex ultrasound dated 09/19/2020 which demonstrated acute acute occlusive thrombus in the proximal right popliteal artery. RIGHT FEMORAL RUNOFF VELOCITIES: The right common femoral artery measures 111 cm/s and triphasic. The right profunda femoral artery is 116 cm/s and is triphasic. Right proximal superficial femoral artery measures 90 cm/s and triphasic. Mid superficial femoral artery is 194 cm/s and triphasic. Distal right superficial femoral artery measures 133 cm/s and is triphasic. Right popliteal velocity measures 130 cm/s and is biphasic. The posterior tibial artery velocity measures 102 cm/s and was biphasic. The right ankle-brachial index is 1.02. LEFT FEMORAL RUNOFF VELOCITIES: The left common femoral artery measures 124 cm/s and triphasic. The left profunda femoral artery is 127 cm/s and is triphasic. Left proximal superficial femoral artery measures 121 cm/s and triphasic. Mid superficial femoral artery is 190 cm/s and triphasic. Distal left superficial femoral artery measures 123 cm/s and is triphasic. Left popliteal velocity measures 112 cm/s and is triphasic. The posterior tibial artery velocity measures 108 cm/s and was biphasic. The left ankle-brachial index is 1.08. US/US arterial duplex LE BI IMPRESSION: 1. There is an elevated velocity in the mid right superficial femoral artery which is near hemodynamically significant stenosis. However, this appears compensated because there is a normal ankle-brachial index present. 2. There is an elevated velocity in the mid left superficial femoral artery which is near hemodynamically significant stenosis. However, this appears compensated because there is a normal ankle-brachial index present.
--- NOTE | ~2021-02-11 | US_ITS ---
EXAMINATION: COLOR-FLOW DUPLEX IMAGING OF THE BILATERAL LOWER EXTREMITY ARTERIAL SYSTEM. VELOCITY MEASUREMENTS THROUGHOUT THE FEMORAL ARTERIES WITH ANKLE-BRACHIAL PERIPHERAL ARTERIAL TESTING. Interventional Radiologist: Clemente Flores M.D., F.S.I.R., F.A.C.R. CLINICAL INFORMATION: This is a 50-year-old male with history of smoking and vascular surgery. Peripheral arterial disease. COMPARISON: Comparison is made to a previous duplex ultrasound dated 09/19/2020 which demonstrated acute acute occlusive thrombus in the proximal right popliteal artery. RIGHT FEMORAL RUNOFF VELOCITIES: The right common femoral artery measures 111 cm/s and triphasic. The right profunda femoral artery is 116 cm/s and is triphasic. Right proximal superficial femoral artery measures 90 cm/s and triphasic. Mid superficial femoral artery is 194 cm/s and triphasic. Distal right superficial femoral artery measures 133 cm/s and is triphasic. Right popliteal velocity measures 130 cm/s and is biphasic. The posterior tibial artery velocity measures 102 cm/s and was biphasic. The right ankle-brachial index is 1.02. LEFT FEMORAL RUNOFF VELOCITIES: The left common femoral artery measures 124 cm/s and triphasic. The left profunda femoral artery is 127 cm/s and is triphasic. Left proximal superficial femoral artery measures 121 cm/s and triphasic. Mid superficial femoral artery is 190 cm/s and triphasic. Distal left superficial femoral artery measures 123 cm/s and is triphasic. Left popliteal velocity measures 112 cm/s and is triphasic. The posterior tibial artery velocity measures 108 cm/s and was biphasic. The left ankle-brachial index is 1.08. US/US MOISE complete IMPRESSION: 1. There is an elevated velocity in the mid right superficial femoral artery which is near hemodynamically significant stenosis. However, this appears compensated because there is a normal ankle-brachial index present. 2. There is an elevated velocity in the mid left superficial femoral artery which is near hemodynamically significant stenosis. However, this appears compensated because there is a normal ankle-brachial index present.
== END 2021-02-11 12:59 | disposition home or self-care (01) ==
LOC: HO.US 12:58
PROVIDERS: Visit Provider Surgery Vascular Surgery
DX: I70.213 Atherosclerosis of native arteries of extremities with intermittent claudication, bilateral legs (principal)
CPT/HCPCS: 93923; 93925

== ENCOUNTER → 2021-02-20 11:12 | Outpatient (BNVA) | payer OTHER, SELFPAY | PROVIDERS: PCP Nurse Practitioner; Visit Provider Internal Medicine ==

== ENCOUNTER → 2021-02-26 12:53 | Outpatient (BNVA) | payer OTHER, SELFPAY | PROVIDERS: PCP Nurse Practitioner; Visit Provider Surgery Vascular Surgery ==

== ENCOUNTER → 2021-03-08 11:01 | Outpatient (BNVA) | payer OTHER, SELFPAY | PROVIDERS: Visit Provider Internal Medicine ==

== ENCOUNTER 2021-06-30 00:56 | Inpatient (IN) | payer OTHER, MEDICAID, SELFPAY ==
[2021-06-30] VITALS (9 sets, daily range): BP systolic 134–167; BP diastolic 61–90; PULSE 16–101; RESP 15–18; TEMP 36.8–37.3; O2SAT 96–100; BMI 30.7
--- NOTE | ~2021-06-30 | US_ITS ---
EXAMINATION: US NONINVASIVE ASSESSMENT OF THE BILATERAL LOWER EXTREMITY WITH ARTERIAL DUPLEX AND ANKLE BRACHIAL INDICES (ABIS) CLINICAL INFORMATION: Nonhealing ulcer COMPARISON: None TECHNIQUE: Duplex Doppler techniques with waveform analysis and measurement of velocities in the common femoral, profunda femoris, superficial femoral, popliteal and tibial arteries were performed. In addition, ankle pulse volume recordings, ankle pressure measurements and ankle brachial indices were obtained of the bilateral lower extremity arterial system. The study was performed only at rest. FINDINGS: NONINVASIVE ASSESSMENT OF THE ARTERIES OF BILATERAL LOWER EXTREMITIES WITH ABIs: RIGHT LEG: Ankle-brachial index: 1.13 Ankle PVR: Triphasic LEFT LEG: Ankle-brachial index: 0.62 Left ankle PVR: Dampened, monophasic MOISE Reference: 0.9 - 1.4 = normal - no significant arterial disease 0.7 - 0.89 = mild peripheral arterial disease 0.51 - 0.69 = moderate peripheral arterial disease ? 0.50 = severe peripheral arterial disease RIGHT LOWER EXTREMITY DUPLEX ULTRASOUND: Common femoral artery: 112 cm/s. Diastolic flow reversal: Yes Profunda femoris artery: 175 cm/s. Diastolic flow reversal: Yes Superficial femoral artery (proximal): 109 cm/s. Diastolic flow reversal: Yes Superficial femoral artery (mid): 121 cm/s. Diastolic flow reversal: Yes Superficial femoral artery (distal): 164 cm/s. Diastolic flow reversal: Yes Popliteal artery: 130 cm/s Diastolic flow reversal: Yes Posterior tibial artery: 131 cm/s Diastolic flow reversal: Yes LEFT LOWER EXTREMITY DUPLEX ULTRASOUND: Common femoral artery: 172 cm/s. Diastolic flow reversal: Yes Profunda femoris artery: 162 cm/s. Diastolic flow reversal: Yes Superficial femoral artery (proximal): 89.6 cm/s. Diastolic flow reversal: Yes Superficial femoral artery (mid): Occluded Superficial femoral artery (distal): 37 cm/s. Diastolic flow reversal: Yes Popliteal artery: 58 cm/s Diastolic flow reversal: Yes Posterior tibial artery: 72 cm/s Diastolic flow reversal: Yes US/US arterial duplex LE BI IMPRESSION: 1. Occlusion of the left mid SFA on duplex ultrasound with patency of the calf vessels secondary to collateral flow. 2. Moderate peripheral arterial disease of the left lower extremity by MOISE. 3. No hemodynamically significant stenoses in the right lower extremity. Normal MOISE.
--- NOTE | ~2021-06-30 | MR_ITS ---
EXAMINATION: MRI OF THE LEFT FOOT WITH AND WITHOUT CONTRAST CLINICAL INFORMATION: Foot pain. COMPARISON: Radiograph dated 06/30/2021. TECHNIQUE: Multiplanar MR imaging was obtained through the left foot on a 1.5 Fartun magnet before and after intravenous contrast administration (90 mL Gadavist). FINDINGS: A soft tissue wound at the plantar aspect of the fourth metatarsal head measures 1.7 x 2.3 cm in area (transverse by longitudinal) and extends to the depth of the plantar joint capsule. There is surrounding skin thickening and soft tissue edema as well as significant soft tissue gas surrounding the fourth MTP joint, most pronounced dorsally. This gas extends medially and laterally at the level of the MTP joints, extending over the dorsal aspect of the third and fifth MTP joints. Additional gas is present in the plantar soft tissues at the level of the second MTP joint. The soft tissue gas also tracks proximally along the dorsal aspect of the fourth metatarsal to the level of the metatarsal shafts. Additional gas tracks proximally along the plantar fascia off of the proximal margin of the study, extending through an ill-defined complex fluid collection measuring approximately 3 x 0.7 x 7 cm. There is surrounding soft tissue edema and fluid along the fascial planes in the plantar soft tissues. Mild peripheral enhancement is seen in the involved region of the plantar tissue collection, though overall enhancement of the plantar soft tissues is likely diminished by hypoperfusion. There is mild reactive edema signal within the fourth metatarsal head and proximal phalangeal base without appreciable signal abnormality on T1-weighted images to indicate osteomyelitis. No fracture or malalignment. 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 Minimal osteoarthritis is noted in the midfoot. No stress reactions. Tendons appear intact without appreciable tears or tenosynovitis. There is diffuse intramuscular edema signal in the foot. MR/MR foot LT wo/w con IMPRESSION: Plantar wound at the level of the fourth metatarsal head extends to the depth of the joint capsule. An elongated, gas-containing complex abscess is present in the plantar soft tissues around the plantar fascia, tracking proximally in the foot at the proximal border of the study. Additional soft tissue gas is present around the third MTP joints, also most pronounced at the fourth MTP joint. No evidence of osteomyelitis.
--- NOTE | ~2021-06-30 | XR_ITS ---
EXAMINATION: XR FOOT, LEFT CLINICAL INFORMATION: Foot wound COMPARISON: 06/13/2021 TECHNIQUE: AP, lateral, and oblique views of the left foot. FINDINGS: There is gas in the soft tissues at the plantar aspect of the forefoot, centered at the fourth metatarsophalangeal joint region. Gas pains approximately 8 cm from the forefoot extending towards the midfoot. No definite osseous erosions are seen. Joint spaces maintained. No fracture. No radiopaque foreign body. XR/XR foot LT min 3V IMPRESSION: Significant soft tissue gas in the plantar aspect of the forefoot. No definite osseous erosion or acute osseous abnormality seen.
[2021-06-30 02:17] LABS: Basophils Percent Auto 0.1 % (0-2); Eosinophils Percent Auto 0.1 % (0-4); Hematocrit 30.1 % (42-52); Hemoglobin 9.9 g/dl (14.0-18.0); Imm Gran Abs Auto 0.22 X10*3/uL (0.00-0.03); Lymphocytes Absolute Auto 1.3 X10*3/uL (1.2-4.9); Lymphocytes Percent Auto 5.7 % (20-40); MANUAL DIFF FLAG SCAN; Mean Corpuscular HGB Conc 32.9 g/dl (31.0-36.0); Mean Corpuscular Hemoglobin 27.3 pg (27.0-33.0); Mean Corpuscular Volume 83.1 fL (80-98); Mean Platelet Volume 9.1 fL (9.4-12.4); Monocytes Absolute Auto 2.3 X10*3/uL (0.1-1.2); Monocytes Percent Auto 10.3 % (2-11); Neutrophils Absolute Auto 18.6 X10*3/uL (2.0-8.3); Neutrophils Percent Auto 82.8 % (45-73); Platelet Count 420 X10*3/uL (160-400); Red Blood Count 3.62 X10*6/uL (4.60-5.80); Red Cell Distribution Width 16.9 % (11.0-16.0); SCAN SMEAR FLAG 1; White Blood Count 22.5 X10*3/uL (4.8-10.8)
[2021-06-30 02:19] LABS: SLIDE REVIEW VERIFIED
--- NOTE | 2021-06-30 02:25 | ED.LOWEXIN ---
HPI - Extremity Injury (Lower) General Chief Complaint: Skin/Abscess/Foreign Body Stated Complaint: Wound infection/ L foot Time Seen by Provider: 06/30/21 02:20 Source: patient Mode of arrival: ambulatory History of Present Illness HPI Narrative: 50-year-old male who is an everyday smoker and has diabetes presents with diabetic foot ulcer and now with a purple 4th toe with foul smell and noted plantar ulcer at the MTP. Patient states that he was seen at that wound care center on Thursday and that the discoloration of this toe happened ?overnight?. He denies any associated fever, chills, shortness of breath, sore throat, GI or symptoms. Related Data Home Medications Medication Instructions Recorded Confirmed metformin 1,000 mg tablet 1 tab PO BID 10/31/20 06/30/21 blood sugar diagnostic #10 ea 11/20/20 06/30/21 lisinopril 5 mg tablet 5 mg PO DAILY 11/20/20 06/30/21 pen needle, diabetic 32 gauge x #50 ea 11/20/20 06/30/21 atorvastatin 40 mg tablet 1 tab PO DAILY 06/30/21 06/30/21 insulin glargine 100 unit/mL (3 15 unit SUBCUT BID 06/30/21 06/30/21 mL) subcutaneous pen (Basaglar KwikPen U-100 Insulin) Allergies Allergy/AdvReac Type Severity Reaction Status Date / Time No Known Allergies Allergy Verified 02/26/21 13:01 Review of Systems Review of Systems: Pertinent positives and negatives as stated in HPI 10 point review of systems is otherwise negative. [facility] Past Medical History Source: nursing notes reviewed Medical History Diabetes GERD (gastroesophageal reflux disease) History of angiography PAD (peripheral artery disease) PICC (peripherally inserted central catheter) in place Surgical History Amputated toe of right foot (11/05/20) Social History Social History Household Members: Significant Other and Other Housing: House Do you presently have visiting nurse or other home services: No Alcohol intake: never Patient Tobacco Use Status: Never used Tobacco Years Smoked: 15 Second Hand Smoke Exposure: No Use of substances other than those prescribed or required for medical reasons: No Advance Directives: No Advance Directives Information Provided: Yes service: No Current occupational status: employed Physical Exam Vital Signs: Vital Signs: Last Vital Signs Temp 99.1 F 06/30/21 00:59 Pulse 95 06/30/21 00:59 Resp 18 06/30/21 00:59 BP 143/88 H 06/30/21 00:59 Pulse Ox 99 06/30/21 00:59 Body Mass Index 30.7 VITAL SIGNS: Reviewed. GENERAL: Well developed, well nourished, in no acute distress. HEAD: Normocephalic/atraumatic EYES: PERRLA, EOMI OROPHARYNX: no oral lesions noted, posterior pharynx clear LUNGS: Normal breath sounds. No adventitious sounds or accessory muscle use. SpO2<99> CARDIOVASCULAR: Regular rate and rhythm without noted murmurs ABDOMEN: Soft, non-tender, non-distended with bowel sounds. LEFT FOOT: Plantar ulcer to 4th MTP with purplish 4th toe that extends along the dorsum, foul smell, no drainage NEUROLOGIC: Alert and oriented x 4. Course Course Course Narrative: 50-year-old male with history and clinical presentation consistent of gangrenous left 4th toe and likely underlying osteomyelitis. On review of visit history patient has not had any recent visit to the [facility] since March. Patient immediately started on vanc and Zosyn and will be admitted. Review of all investigations shows findings consistent with gangrene left 4th toe, patient has received antibiotics as well as IV fluids for his noted hyperglycemia in remains otherwise hemodynamically stable. This case was discussed with the inpatient hospitalist who accepts admission. MDM - Extremity Injury (Lower) Lab Data Result diagrams: 06/30/21 02:17 06/30/21 02:17 Labs: Lab Results 06/30/21 06/30/21 06/30/21 Range/Units 02:15 02:17 02:17 WBC 22.5 H (4.8-10.8) X10*3/uL RBC 3.62 L (4.60-5.80) X10*6/uL Hgb 9.9 L (14.0-18.0) g/dl Hct 30.1 L (42-52) % MCV 83.1 (80-98) fL MCH 27.3 (27.0-33.0) pg MCHC 32.9 (31.0-36.0) g/dl RDW 16.9 H (11.0-16.0) % Plt Count 420 H (160-400) X10*3/uL MPV 9.1 L (9.4-12.4) fL Immature Gran % (Auto) 1.0 H (0.0-0.4) % Neut % (Auto) 82.8 H (45-73) % Lymph % (Auto) 5.7 L (20-40) % [place] % (Auto) 10.3 (2-11) % Eos % (Auto) 0.1 (0-4) % Baso % (Auto) 0.1 (0-2) % Lymph # (Auto) 1.3 (1.2-4.9) X10*3/uL [place] # (Auto) 2.3 H (0.1-1.2) X10*3/uL Eos # (Auto) 0.0 (0.0-0.4) X10*3/uL Baso # (Auto) 0.0 (0.0-0.2) X10*3/uL Abs Immat Gran (auto) 0.22 H (0.00-0.03) X10*3/uL Absolute Neuts (auto) 18.6 H (2.0-8.3) X10*3/uL Absolute Nucleated RBC 0.000 (0.0-0.012) X10*3/uL Nucleated RBC % (auto) 0.0 (0.0-0.2) /100WBC Smear Tech's Comments VERIFIED ESR (0-15) MM/HR Sodium 131 L (135-145) mmol/L Potassium 4.1 (3.3-5.1) mmol/L Chloride 93 L (96-108) mmol/L Carbon Dioxide 24 (22-29) mmol/L Anion Gap 18 (12-20) BUN 21 H D (9-16) mg/dL Creatinine 1.59 H (0.5-1.4) mg/dL Estim Creat Clear Calc 58.4 Estimated GFR 47 Random Glucose 531 H* (60-115) mg/dL Lactic Acid 1.4 (0.5-2.0) mmol/L Calcium 9.7 D (8.4-10.2) mg/dL Total Bilirubin 0.6 (0.0-1.0) mg/dL AST 12 (5-37) U/L ALT 10 (0-40) U/L Alkaline Phosphatase 121 H D (39-117) U/L C-Reactive Protein 38.07 H (< or = 0.50) mg/dL Total Protein 8.2 H D (6.5-8.0) g/dL Albumin 4.1 (3.5-5.0) g/dL Acetone, Qual Negative (Negative) 06/30/21 Range/Units 02:17 WBC (4.8-10.8) X10*3/uL RBC (4.60-5.80) X10*6/uL Hgb (14.0-18.0) g/dl Hct (42-52) % MCV (80-98) fL MCH (27.0-33.0) pg MCHC (31.0-36.0) g/dl RDW (11.0-16.0) % Plt Count (160-400) X10*3/uL MPV (9.4-12.4) fL Immature Gran % (Auto) (0.0-0.4) % Neut % (Auto) (45-73) % Lymph % (Auto) (20-40) % [place] % (Auto) (2-11) % Eos % (Auto) (0-4) % Baso % (Auto) (0-2) % Lymph # (Auto) (1.2-4.9) X10*3/uL [place] # (Auto) (0.1-1.2) X10*3/uL Eos # (Auto) (0.0-0.4) X10*3/uL Baso # (Auto) (0.0-0.2) X10*3/uL Abs Immat Gran (auto) (0.00-0.03) X10*3/uL Absolute Neuts (auto) (2.0-8.3) X10*3/uL Absolute Nucleated RBC (0.0-0.012) X10*3/uL Nucleated RBC % (auto) (0.0-0.2) /100WBC Smear Tech's Comments ESR 104 H (0-15) MM/HR Sodium (135-145) mmol/L Potassium (3.3-5.1) mmol/L Chloride (96-108) mmol/L Carbon Dioxide (22-29) mmol/L Anion Gap (12-20) BUN (9-16) mg/dL Creatinine (0.5-1.4) mg/dL Estim Creat Clear Calc Estimated GFR Random Glucose (60-115) mg/dL Lactic Acid (0.5-2.0) mmol/L Calcium (8.4-10.2) mg/dL Total Bilirubin (0.0-1.0) mg/dL AST (5-37) U/L ALT (0-40) U/L Alkaline Phosphatase (39-117) U/L C-Reactive Protein (< or = 0.50) mg/dL Total Protein (6.5-8.0) g/dL Albumin (3.5-5.0) g/dL Acetone, Qual (Negative) Discharge Plan Discharge Clinical Impression: Gangrene of toe of left foot, Sepsis, Hyperglycemia Patient Disposition: Admitted As Inpatient
[2021-06-30 02:38] LABS: Lactic Acid 1.4 mmol/L (0.5-2.0)
[2021-06-30 02:44] LABS: Acetone, serum QL Negative (Negative)
[2021-06-30 02:45] LABS: Alanine Aminotransferase 10 U/L (0-40); Albumin Level 4.1 g/dL (3.5-5.0); Alkaline Phosphatase 121 U/L (39-117); Anion Gap 18 (12-20); Aspartate Amino Transferase 12 U/L (5-37); Bilirubin Total 0.6 mg/dL (0.0-1.0); Blood Urea Nitrogen 21 mg/dL (9-16); Calcium 9.7 mg/dL (8.4-10.2); Carbon Dioxide 24 mmol/L (22-29); Chloride 93 mmol/L (96-108); Creatinine Clr Calc Pharmacy 58.4; Estimated Glomerular Filt Rate 47; Glucose Random 531 mg/dL (60-115); Potassium 4.1 mmol/L (3.3-5.1); Sodium 131 mmol/L (135-145); Total Protein 8.2 g/dL (6.5-8.0)
[2021-06-30 02:58] LABS: C Reactive Protein 38.07 mg/dL (< or = 0.50)
[2021-06-30] MEDS: Piperacillin Sodium/Tazobactam 3.375 GM in 0.9 % Sodium Chloride 50 ML IV ×3 (03:00→17:09)
[2021-06-30 03:14] LABS: Erythrocyte Sedimentation Rate 104 MM/HR (0-15)
[2021-06-30] MEDS: 0.9 % Sodium Chloride 2,000 ML 999 ML IV (03:15)
[2021-06-30] MEDS: vancomycin HCL 1,000 MG in 0.9 % Sodium Chloride 250 ML 270 MG IV ×2 (03:30→15:00)
[2021-06-30 03:44] LABS: COVID-19 Test Negative (Negative); IDNOW Serial# 9DD0AD1C
--- NOTE | 2021-06-30 03:45 | PM.IMHP ---
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 He presents today with pain, purple discolorization of the left 4th toe with foul smelling drainage. He he has ulcers of the plantar aspect of the foot that appear chronic. He claims that everthing happed overnight. He was in the hospital September this year with right toe osteo and bacteriodes bacteremia and was treat care home Abx. His diabetes doesn't seem to be well controlled. Review of Systems Review of Systems: Gen: no fever Resp: no sob, no cough CV: no chest, no TRIPLETT, no leg edema GI: No n/v, no abd pain Neuro: No confusion pain in the left foot Yes all other systems are reviewed and are negative [facility] Medical History Diabetes Diabetic foot ulcer Gangrene of toe of left foot GERD (gastroesophageal reflux disease) History of angiography PAD (peripheral artery disease) PICC (peripherally inserted central catheter) in place Family History (Updated 06/30/21 @ 03:46 by Trenton Neal MD) Other Diabetes Pertinent family history: . Surgical History Amputated toe of right foot (11/05/20) Social History Household Members: Significant Other and Other Housing: House Do you presently have visiting nurse or other home services: No Alcohol intake: never Patient Tobacco Use Status: Never used Tobacco Years Smoked: 15 Second Hand Smoke Exposure: No Use of substances other than those prescribed or required for medical reasons: No Advance Directives: No Advance Directives Information Provided: Yes service: No Current occupational status: employed Meds Allergies Allergy/AdvReac Type Severity Reaction Status Date / Time No Known Allergies Allergy Verified 02/26/21 13:01 Active Medications: Current Medications Sodium Chloride (Ns) 2,000 mls @ 999 mls/hr IV .Q2H1M STA Stop: 06/30/21 05:09 Last Admin: 06/30/21 03:15 Dose: 999 mls/hr Documented by: Pharmacy Consult (Consult Rx Vancomycin Dosing) 1 each MISCELLANE DAILY PRN PRN Reason: Consult order Home Medications Medication Instructions Recorded Confirmed Last Taken Type metformin 1,000 mg tablet 1 tab PO BID 10/31/20 06/30/21 Unknown History blood sugar diagnostic #10 ea 11/20/20 06/30/21 Unknown History lisinopril 5 mg tablet 5 mg PO DAILY 11/20/20 06/30/21 Unknown History pen needle, diabetic 32 gauge x #50 ea 11/20/20 06/30/21 Unknown History atorvastatin 40 mg tablet 1 tab PO DAILY 06/30/21 06/30/21 Unknown History insulin glargine 100 unit/mL (3 15 unit SUBCUT BID 06/30/21 06/30/21 Unknown History mL) subcutaneous pen (Basaglar KwikPen U-100 Insulin) Physical Exam Vital Signs and Narrative: Vital Signs: Last Vital Signs Temp 99.1 F 06/30/21 00:59 Pulse 95 06/30/21 00:59 Resp 18 06/30/21 00:59 BP 143/88 H 06/30/21 00:59 Pulse Ox 99 06/30/21 00:59 Body Mass Index 30.7 Constitutional Awake and Alert, No apparent distress HEENT Neck Supple, No lymphadenopathy Cardiovascular RRR, No M/R/G, S1 S2, No S3 S4, No pedal edema Respiratory Lungs clear, No respiratory distress Gastrointestinal Non tender, Non-distended Skin No rash discoloration of skin as in picture with probably necrotic tissue of 4th digi, plantar wounds as noted Neurological Alert & oriented x3 Psychological Appropriate affect Results Labs CBC and Chem 7: 06/30/21 02:17 06/30/21 02:17 Labs: Laboratory Results - last 24 hr 06/30/21 06/30/21 06/30/21 02:15 02:17 02:17 MCV 83.1 MCH 27.3 MCHC 32.9 RDW 16.9 H Plt Count 420 H MPV 9.1 L Immature Gran % (Auto) 1.0 H Neut % (Auto) 82.8 H Lymph % (Auto) 5.7 L [place] % (Auto) 10.3 Eos % (Auto) 0.1 Baso % (Auto) 0.1 Lymph # (Auto) 1.3 [place] # (Auto) 2.3 H Eos # (Auto) 0.0 Baso # (Auto) 0.0 Abs Immat Gran (auto) 0.22 H Absolute Neuts (auto) 18.6 H Absolute Nucleated RBC 0.000 Nucleated RBC % (auto) 0.0 Smear Tech's Comments VERIFIED ESR Anion Gap 18 Estim Creat Clear Calc 58.4 Estimated GFR 47 Random Glucose 531 H* Lactic Acid 1.4 Calcium 9.7 D Total Bilirubin 0.6 AST 12 ALT 10 Alkaline Phosphatase 121 H D C-Reactive Protein 38.07 H Total Protein 8.2 H D Albumin 4.1 Acetone, Qual Negative COVID-19 (DELIA) COVID-19 Clin Com 06/30/21 06/30/21 02:17 03:25 MCV MCH MCHC RDW Plt Count MPV Immature Gran % (Auto) Neut % (Auto) Lymph % (Auto) [place] % (Auto) Eos % (Auto) Baso % (Auto) Lymph # (Auto) [place] # (Auto) Eos # (Auto) Baso # (Auto) Abs Immat Gran (auto) Absolute Neuts (auto) Absolute Nucleated RBC Nucleated RBC % (auto) Smear Tech's Comments ESR 104 H Anion Gap Estim Creat Clear Calc Estimated GFR Random Glucose Lactic Acid Calcium Total Bilirubin AST ALT Alkaline Phosphatase C-Reactive Protein Total Protein Albumin Acetone, Qual COVID-19 (DELIA) Negative COVID-19 Clin Com See Note Imaging Radiologist's Impressions: Impressions Foot X-Ray 06/30/21 02:31 IMPRESSION: Significant soft tissue gas in the plantar aspect of the forefoot. No definite osseous erosion or acute osseous abnormality seen. Assessment and Plan (1) Cellulitis of foot: Status: Acute (2) Diabetic foot ulcer: Status: Acute (3) Hypertension: Qualifiers: Hypertension type: essential hypertension Qualified Code(s): I10 - Essential (primary) hypertension Status: Acute 50 year old male with poorly control diabetes, HTN, HLD, diabetic foot ulcer with ostomylitis and s/p right 4th toe ampuation in 10/2020 here 1/ Cellulitis of right foot, 4th dig and highly suspicion for osteomyltis related to uncontrolled diabetes 2./Severe Sepsis -Cultures pending -IV Vanco and Zosyn D1 -ID and Vascular surgery consult, he will likely need amputation -IV Morphine for pain control 2/ALEKSANDR likely pre renal--Hydrate and repeat lab next day 3/ Diabetes--uncontrolled sugars are very high -Give IVF to help with hyperglycemia -Resume Lantus -SSI -pre meal insulin -He should see an financial planning consultant on outpatient basis 4/HTN--hold Lisinopril d/t renal failure, if needed add Norvasc 5/ HLD-statin 6/ DVT prophylaxis with Lovenox. Quality Stroke Does the patient have a stroke diagnosis?: No VTE Prior VTE?: No VTE Risk Level:: Medical - moderate - high VTE Device Contraindication: Treatment Not Tolerated VTE Drug Contraindication: N/A - Med Ordered
[2021-06-30 05:21] LABS: Creatinine Clr Calc Pharmacy 83.7; Estimated Glomerular Filt Rate > 60
--- NOTE | 2021-06-30 07:14 | PHA.PROG ---
Admission Date/Time: June 30, 2021 03:59 Indication: Weight in k.183 kg Serum Creatinine - Last 168 Hours 06/30/21 06/30/21 02:17 04:56 Creatinine 1.59 H 1.11 Estimated CrCl and GFR - Last 168 Hours 06/30/21 06/30/21 02:17 04:56 Estim Creat Clear Calc 58.4 83.7 Estimated GFR 47 > 60 Vancomycin Loading Dose: 1000MG Current Vancomycin Dosing Regimen: 100Q12 Vancomycin Monitoring using AUC goal of 400 - 600 range with trough as surrogate marker: AUC 547MG/L HR WITH TROUGH OF 18MG/L Date and Time for next Vancomycin Level to be drawn: 07/01 @ 1400 Pharmacist Comments on Vancomycin Plan: Vancomycin dosing will take advantage of [employer] as a clinical decision support tool that uses Bayesian modeling to calculate individual patient's pharmacokinetic parameters and forecast the patient's drug concentration time course with the target goal AUC 24 range of 400 - 600 mg/L/hr.
[2021-06-30] MEDS: ondansetron HCL 4 MG/2 ML VIAL IVPUSH (07:20)
--- NOTE | 2021-06-30 08:08 | PC.NURSE ---
Assumed care of patient at 7am. Pt was found to be actively vomiting in his room. MD made aware and and pt given IV zofran. Pt no longer feels nauseous and is no longer vomiting. Pt is resting comfortably.
[2021-06-30 09:11] LABS: Glucose, Whole Blood 321 mg/dL (60-115)
[2021-06-30] MEDS: Insulin Glargine,Hum.rec.anlog 100 UNIT/ML 10 ML VIAL 15 UNIT SUBCUT ×2 (09:19→21:11)
[2021-06-30] MEDS: Atorvastatin Calcium 40 MG TABLET PO (09:20)
[2021-06-30] MEDS: lisinopriL 5 MG TABLET PO (09:20)
[2021-06-30] MEDS: Insulin Lispro 100 UNIT/ML 3 ML VIAL SUBCUT ×4 (09:37→21:11)
[2021-06-30] MEDS: Acetaminophen 325 MG TABLET 650 MG PO ×3 (10:04→21:18)
--- NOTE | 2021-06-30 13:00 | MHC.CM.PN ---
CM ATTEMPTED TO SEE PT IN ED-08, PT SLEEPING CM TO RETURN
[2021-06-30 13:33] LABS: Glucose, Whole Blood 313 mg/dL (60-115)
[2021-06-30] MEDS: 0.9 % Sodium Chloride 1,000 ML 100 ML IVCONT (13:44)
--- NOTE | 2021-06-30 13:57 | PM.EVENT ---
Event Note Date of Service: 06/30/21 Event Note: day hospitalist update S c/o R foot pain no fever O BP 162/86 P 100 R 15 T 98.2 SaO2 100 on RA NAD lungs clear CV RRR no m/r/g abd soft/NT derm necrotic ulcer at base of 4th toe on dorsum of L foot, also necrotic ulcer on plantar surface A/P hospital d#1 50yo M with DM2, hx amputation of R 4th toe due to osteomyelitis admitted with severe sepsis due to DM foot infection # DM foot ulcer infection/suspected osteomyelitis - follow BCx - MRI - vanco + pip/adalberto d#1 - ID + Vasc Surg consult # prerenal ALEKSANDR - avoid nephrotoxins, continue IV fluids, repeat BMP in am # DM2, A1c 8.5 - basal/bolus insulin # HTN - continue lisinopril with caution given ALEKSANDR, repeat BMP in am # HLD - statin # VTE ppx - LMWH
[2021-06-30 16:34] LABS: Glucose, Whole Blood 344 mg/dL (60-115)
[2021-06-30 20:47] LABS: Glucose, Whole Blood 306 mg/dL (60-115)
[2021-06-30] MEDS: 0.9 % Sodium Chloride Flush 3 ML SYRINGE IVFLUSH (21:11)
[2021-07-01] VITALS (7 sets, daily range): BP systolic 106–176; BP diastolic 64–89; PULSE 80–95; RESP 17–24; TEMP 37.1–38.4; O2SAT 92–95
[2021-07-01] MEDS: Magnesium Hydrox/Alum Hydrox 30 ML ORAL.SUSP PO ×2 (00:12→15:02)
[2021-07-01] MEDS: Piperacillin Sodium/Tazobactam 3.375 GM in 0.9 % Sodium Chloride 50 ML IV ×3 (03:05→18:06)
[2021-07-01] MEDS: vancomycin HCL 1,000 MG in 0.9 % Sodium Chloride 250 ML 270 MG IV (03:49)
[2021-07-01 05:48] LABS: Hematocrit 23.5 % (42-52); Hemoglobin 7.8 g/dl (14.0-18.0); Mean Corpuscular HGB Conc 33.2 g/dl (31.0-36.0); Mean Corpuscular Hemoglobin 27.3 pg (27.0-33.0); Mean Corpuscular Volume 82.2 fL (80-98); Mean Platelet Volume 9.7 fL (9.4-12.4); Platelet Count 348 X10*3/uL (160-400); Red Blood Count 2.86 X10*6/uL (4.60-5.80); Red Cell Distribution Width 16.9 % (11.0-16.0); White Blood Count 18.9 X10*3/uL (4.8-10.8)
[2021-07-01 06:09] LABS: Anion Gap 13 (12-20); Blood Urea Nitrogen 10 mg/dL (9-16); Calcium 7.7 mg/dL (8.4-10.2); Carbon Dioxide 21 mmol/L (22-29); Chloride 103 mmol/L (96-108); Estimated Glomerular Filt Rate > 60; Glucose Random 282 mg/dL (60-115); Potassium 3.6 mmol/L (3.3-5.1); Sodium 133 mmol/L (135-145)
[2021-07-01 07:42] LABS: Immature Retic Fraction 16.8 % (2.3-13.4); Retic HGB Equivalent 24.2 pg (30.0-35.0); Reticulocytes Absolute 0.028 X10*6/uL (0.026-0.095)
[2021-07-01 07:52] LABS: Iron 8 mcg/dL (45-160); Lactate Dehydrogenase 169 U/L (118-273); Percent Iron Saturation 4 % (15-50); Total Iron Binding Capacity 220 mcg/dL (228-428); Unsaturated Iron Binding 212 ug/dL
[2021-07-01 08:00] LABS: Glucose, Whole Blood 258 mg/dL (60-115)
[2021-07-01] MEDS: Insulin Lispro 100 UNIT/ML 3 ML VIAL SUBCUT ×4 (08:10→19:52)
[2021-07-01 08:11] LABS: Ferritin 150 ng/mL (20-250)
[2021-07-01] MEDS: Atorvastatin Calcium 40 MG TABLET PO (08:11)
[2021-07-01] MEDS: Enoxaparin Sodium 40 MG/0.4 ML SYRINGE SUBCUT (08:11)
[2021-07-01] MEDS: Insulin Glargine,Hum.rec.anlog 100 UNIT/ML 10 ML VIAL 18 UNIT SUBCUT ×2 (08:11→19:52)
[2021-07-01] MEDS: lisinopriL 5 MG TABLET PO (08:11)
[2021-07-01 08:31] LABS: Folate 7.8 ng/mL (> or = 4.0); Vitamin B12 425 pg/mL (200-900)
--- NOTE | 2021-07-01 09:21 | HO.PM.IMPN ---
Subjective Subjective Date of Service: 07/01/21 Interval History: L foot pain No fever/chills No nausea/vomiting Review of Systems Review of Systems: Yes all other systems are reviewed and are negative Physical Exam Vital Signs: Vital Signs: Last Vital Signs Temp 100 F 07/01/21 07:16 Pulse 89 07/01/21 07:16 Resp 18 07/01/21 07:16 BP 157/74 H 07/01/21 07:16 Pulse Ox 95 07/01/21 07:16 Body Mass Index 30.7 Gen: in no acute distress HEENT: sclera anicteric, moist mucus membranes Neck: supple Lungs: clear to auscultation bilaterally Heart: regular rate and rhythm, no murmurs Abd: soft, non-tender, non-distended Ext: no edema Skin: necrotic ulcer at base of 4th toe on dorsum of L foot, also necrotic ulcer on plantar surface; L 4th toe dusky; s/p R 4th toe amputation Neuro: alert and oriented x3, no focal findings Psych: appropriate affect Objective Data Active Medications Acetaminophen (Acetaminophen 325 Mg Tablet) 650 mg PO Q4H PRN PRN Reason: pain/fever Last Admin: 06/30/21 21:18 Dose: 650 mg Documented by: GUIDO Al Hydroxide/Mg Hydroxide (Magnesium Hydrox/Alum Hydrox 30 Ml Oral.Susp) 30 ml PO Q4H PRN PRN Reason: Heartburn/Nausea Last Admin: 07/01/21 00:12 Dose: 30 ml Documented by: TESSA Atorvastatin Calcium (Atorvastatin Calcium 40 Mg Tablet) 40 mg PO DAILY [facility] Last Admin: 07/01/21 08:11 Dose: 40 mg Documented by: MADINA Enoxaparin Sodium (Enoxaparin Sodium 40 Mg/0.4 Ml Syringe) 40 mg SUBCUT DAILY [facility] Last Admin: 07/01/21 08:11 Dose: 40 mg Documented by: MADINA Piperacillin Sod/Tazobactam (Sod 3.375 gm/ Sodium Chloride) 50 mls @ 100 mls/hr IV Q8H [facility] Last Infusion: 07/01/21 04:18 Dose: 0 mls/hr Documented by: TESSA Vancomycin HCl 1,000 mg/ (Sodium Chloride) 270 mls @ 270 mls/hr IV Q12H [facility] Last Infusion: 07/01/21 06:08 Dose: 0 mls/hr Documented by: TESSA Insulin Glargine (Insulin Glargine,Hum.Rec.Anlog 100 Unit/Ml 10 Ml Vial) 18 unit SUBCUT BID [facility] Last Admin: 07/01/21 08:11 Dose: 18 unit Documented by: MADINA Insulin Human Lispro (Insulin Lispro 100 Unit/Ml 3 Ml Vial) 0 unit SUBCUT QIDACHS [facility]; Protocol Last Admin: 07/01/21 08:10 Dose: 8 unit Documented by: MADINA Lisinopril (Lisinopril 5 Mg Tablet) 5 mg PO DAILY [facility]; Protocol Last Admin: 07/01/21 08:11 Dose: 5 mg Documented by: MADINA Melatonin (Melatonin 3 Mg Tablet) 6 mg PO BEDTIME PRN PRN Reason: Insomnia Morphine Sulfate (Morphine Sulfate 4 Mg/Ml Cartridge) 3 mg IVPUSH Q4H PRN; Protocol PRN Reason: Pain, Severe (Pain Scale 7-10) Pharmacy Consult (Consult Rx Vancomycin Dosing) 1 each MISCELLANE DAILY PRN PRN Reason: Consult order Pharmacy Consult (Consult Rx Vancomycin Dosing) 1 each MISCELLANE DAILY PRN PRN Reason: Consult order Sodium Chloride (0.9 % Sodium Chloride Flush 3 Ml Syringe) 3 ml IVFLUSH QSHIFT [facility] Last Admin: 06/30/21 21:11 Dose: 3 ml Documented by: GUIDO Labs CBC & Chem 7: 07/01/21 05:29 07/01/21 05:29 Labs: Laboratory Results - last 24 hr 06/30/21 06/30/21 06/30/21 13:30 16:30 20:37 MCV MCH MCHC RDW Plt Count MPV Absolute Nucleated RBC Nucleated RBC % (auto) Absolute Retic Percent Retic Immature Retic Fraction Retic Hgb Equivalent Anion Gap Estim Creat Clear Calc Estimated GFR POC Glucose 313 H 344 H 306 H Random Glucose Calcium Iron TIBC % Saturation Unsat Iron Binding Ferritin Lactate Dehydrogenase Vitamin B12 Folate 07/01/21 07/01/21 07/01/21 05:29 05:29 05:29 MCV 82.2 MCH 27.3 MCHC 33.2 RDW 16.9 H Plt Count 348 MPV 9.7 Absolute Nucleated RBC 0.000 Nucleated RBC % (auto) 0.0 Absolute Retic 0.028 Percent Retic 1.0 Immature Retic Fraction 16.8 H Retic Hgb Equivalent 24.2 L Anion Gap 13 Estim Creat Clear Calc 112.0 Estimated GFR > 60 POC Glucose Random Glucose 282 H D Calcium 7.7 L D Iron 8 L TIBC 220 L % Saturation 4 L Unsat Iron Binding 212 Ferritin 150 Lactate Dehydrogenase 169 Vitamin B12 425 Folate 7.8 07/01/21 07:16 MCV MCH MCHC RDW Plt Count MPV Absolute Nucleated RBC Nucleated RBC % (auto) Absolute Retic Percent Retic Immature Retic Fraction Retic Hgb Equivalent Anion Gap Estim Creat Clear Calc Estimated GFR POC Glucose 258 H Random Glucose Calcium Iron TIBC % Saturation Unsat Iron Binding Ferritin Lactate Dehydrogenase Vitamin B12 Folate Microbiology Microbiology Results: Microbiology 06/30/21 03:25 Blood Culture - Preliminary Blood - Arterial No growth after 24 hours. 06/30/21 02:15 Blood Culture - Preliminary Blood - Arterial No growth after 24 hours. Assessment and Plan (1) Diabetic foot ulcer: Status: Acute (2) Cellulitis of foot: Status: Acute (3) Sepsis: Status: Acute Assessment and Plan: hospital d#2 50yo M with DM2, hx amputation of R 4th toe due to osteomyelitis admitted with severe sepsis due to necrotic ulcers on L 4th foot # DM foot ulcer infection/suspected osteomyelitis - follow BCx, NGTD - MRI to assess for osteomyelitis - vanco + pip/adalberto d#2 - ID + Vasc Surg + Wound Care consults pending # prerenal ALEKSANDR - resolved p IV fluid hydration, SCr now normal # normocytic anemia - likely due to iron deficiency + inflamation, T+S + FOBT ordered # DM2, A1c 8.5 - basal/bolus insulin- increase doses for better glycemic control # HTN - continue lisinopril # HLD - statin # VTE ppx - LMWH Quality Stroke Does the patient have a stroke diagnosis?: No VTE Prior VTE?: No VTE Risk Level:: Medical - moderate - high VTE Device Contraindication: Treatment Not Tolerated VTE Drug Contraindication: N/A - Med Ordered
--- NOTE | 2021-07-01 11:31 | MHC.CM.PN ---
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 REQUEST SENT TO [facility] TO SEE IF AN APPT COULD BE OBTAINED. CURRENT DC PLAN IS HOME WITH NO SERVICES PT WILL SELF ARRANGE TRANSPORT
[2021-07-01] MEDS: 0.9 % Sodium Chloride Flush 3 ML SYRINGE IVFLUSH ×3 (11:35→19:55)
[2021-07-01 11:40] LABS: Glucose, Whole Blood 275 mg/dL (60-115)
--- NOTE | 2021-07-01 12:21 | PM.CNGS ---
History of Present Illness Consult details Consult date: 07/01/21 Reason for consult: wound care Narrative: Pleasant 50-year-old diabetic gentleman well known to me for prior right lower extremity endovascular intervention [facility] with nonhealing left foot ulcer. His 4th toe and plantar aspect of that left foot had a nonhealing ulcer. There was an odor associated with it. He was subsequently admitted to the hospital. He now presents to us for vascular evaluation. Review of Systems Review of Systems: Yes all other systems are reviewed and are negative Constitutional: Constitutional: Reports no additional constitutional complaints ENT: Reports Normal hearing present Cardiovascular: Cardiovascular: Denies chest pain, Denies chest pain at rest, Denies chest pain with activity and Denies pedal edema Respiratory: Respiratory: Denies cough Gastrointestinal: Gastrointestinal: Denies abdominal pain Musculoskeletal: Musculoskeletal: Denies abnormal gait, Denies muscle cramps and Denies radiating pain into limb Integumentary/Breasts: Skin/Breast: Denies skin ulcer and Denies wounds Neurologic: Reports Normal hearing present and Denies abnormal gait Psychiatric: Psychiatric: Reports no additional psychiatric complaints PMFSH Past Medical History Medical History Diabetes Diabetic foot ulcer Gangrene of toe of left foot GERD (gastroesophageal reflux disease) History of angiography PAD (peripheral artery disease) PICC (peripherally inserted central catheter) in place Family History Family History (Updated 06/30/21 @ 03:46 by Trenton Neal MD) Other Diabetes Surgical History Surgical History Amputated toe of right foot (11/05/20) Social History Social History Household Members: Significant Other and Other Housing: House Do you presently have visiting nurse or other home services: No Alcohol intake: never Patient Tobacco Use Status: Never used Tobacco Tobacco use type: Cigarette Cigarettes Per Day: 10 Years Smoked: 15 Smoked in Last 30 Days: Yes Patient Interested in Nicotine Replacement: No Patient Given Instructions on How to Stop Smoking: No Second Hand Smoke Exposure: No Use of substances other than those prescribed or required for medical reasons: No Currently Displaying Signs/Symptoms of Drug Intoxication Withdrawal: No Have you been hit, kicked, punched, or otherwise hurt by someone within the past year? If so, by whom?: No Do you feel safe in your current relationship?: Yes Is there a partner from a previous relationship who is making you feel unsafe now?: No Are you made to feel afraid or neglected: No Advance Directives: No Advance Directives Information Provided: Yes Do you have thoughts of harming others: None Do you have a plan to hurt others: No Plan Recently lost weight without trying: No Eating poorly because of decreased appetite: No Nutrition Risks: No Nutritional Risk Poor oral hygiene: No service: No Current occupational status: employed Meds Allergies Allergy/AdvReac Type Severity Reaction Status Date / Time No Known Allergies Allergy Verified 02/26/21 13:01 Active Medications: Current Medications Acetaminophen (Acetaminophen 325 Mg Tablet) 650 mg PO Q4H PRN PRN Reason: pain/fever Last Admin: 06/30/21 21:18 Dose: 650 mg Documented by: Al Hydroxide/Mg Hydroxide (Magnesium Hydrox/Alum Hydrox 30 Ml Oral.Susp) 30 ml PO Q4H PRN PRN Reason: Heartburn/Nausea Last Admin: 07/01/21 00:12 Dose: 30 ml Documented by: Atorvastatin Calcium (Atorvastatin Calcium 40 Mg Tablet) 40 mg PO DAILY [facility] Last Admin: 07/01/21 08:11 Dose: 40 mg Documented by: Enoxaparin Sodium (Enoxaparin Sodium 40 Mg/0.4 Ml Syringe) 40 mg SUBCUT DAILY [facility] Last Admin: 07/01/21 08:11 Dose: 40 mg Documented by: Piperacillin Sod/Tazobactam (Sod 3.375 gm/ Sodium Chloride) 50 mls @ 100 mls/hr IV Q8H [facility] Last Admin: 07/01/21 11:35 Dose: 100 mls/hr Documented by: Vancomycin HCl 1,000 mg/ (Sodium Chloride) 270 mls @ 270 mls/hr IV Q12H [facility] Last Infusion: 07/01/21 06:08 Dose: Infused Documented by: Insulin Glargine (Insulin Glargine,Hum.Rec.Anlog 100 Unit/Ml 10 Ml Vial) 18 unit SUBCUT BID [facility] Last Admin: 07/01/21 08:11 Dose: 18 unit Documented by: Insulin Human Lispro (Insulin Lispro 100 Unit/Ml 3 Ml Vial) 0 unit SUBCUT QIDACHS [facility]; Protocol Last Admin: 07/01/21 11:34 Dose: 8 unit Documented by: Lisinopril (Lisinopril 5 Mg Tablet) 5 mg PO DAILY [facility]; Protocol Last Admin: 07/01/21 08:11 Dose: 5 mg Documented by: Melatonin (Melatonin 3 Mg Tablet) 6 mg PO BEDTIME PRN PRN Reason: Insomnia Morphine Sulfate (Morphine Sulfate 4 Mg/Ml Cartridge) 3 mg IVPUSH Q4H PRN; Protocol PRN Reason: Pain, Severe (Pain Scale 7-10) Pharmacy Consult (Consult Rx Vancomycin Dosing) 1 each MISCELLANE DAILY PRN PRN Reason: Consult order Pharmacy Consult (Consult Rx Vancomycin Dosing) 1 each MISCELLANE DAILY PRN PRN Reason: Consult order Sodium Chloride (0.9 % Sodium Chloride Flush 3 Ml [facility]ringe) [facility] Last Admin: 07/01/21 11:35 Dose: 3 ml Documented by: Home Medications Medication Instructions Recorded Confirmed Last Taken Type metformin 1,000 mg tablet 1 tab PO BID 10/31/20 06/30/21 Unknown History blood sugar diagnostic #10 ea 11/20/20 06/30/21 Unknown History lisinopril 5 mg tablet 5 mg PO DAILY 11/20/20 06/30/21 Unknown History pen needle, diabetic 32 gauge x #50 ea 11/20/20 06/30/21 Unknown History atorvastatin 40 mg tablet 1 tab PO DAILY 06/30/21 06/30/21 Unknown History insulin glargine 100 unit/mL (3 15 unit SUBCUT BID 06/30/21 06/30/21 Unknown History mL) subcutaneous pen (Basaglar KwikPen U-100 Insulin) Physical Exam Vital Signs: Vital Signs: Last Vital Signs Temp 99.3 F 07/01/21 11:23 Pulse 90 07/01/21 11:23 Resp 18 07/01/21 11:23 BP 139/67 07/01/21 11:23 Pulse Ox 95 07/01/21 11:23 Body Mass Index 30.7 Const: General: cooperative, healthy appearing and comfortable Orientation/consciousness: oriented to person, oriented to place and oriented to time HENMT: Head: Yes normal to inspection Neck: Neck: Yes normal visual inspection Carotids: no bruits Chest: Chest palpation & inspection: normal inspection of the chest Resp: Effort & Inspection: normal respiratory effort and able to speak in complete sentences Auscultation: clear to auscultation bilaterally, no crackles, no rales, no rhonchi and no wheezes Cardio: Rate: regular rate Rhythm: regular rhythm Heart sounds: S1 normal heart sound present and S2 normal heart sound present Bruits: no carotid bruits Peripheral pulses: dorsalis pedis present (Bilateral DP signals) GI: Inspection: Yes normal to inspection Skin: Wounds: wounds noted (Left 4th toe dry gangrene plantar aspect of foot nonhealing ulcer) Hair: normal Neuro: General: oriented to person, oriented to place and oriented to time Cranial nerves: Yes CN's II-XII intact bilaterally and Yes Normal hearing present Cognition (Neuro): normal cognition Motor exam (neuro): 5/5 motor strength present throughout Extrem: Other: venous exam: No significant superficial varicosities or spider telangiectasias, minimal edema General: No clubbing, No cyanosis and No edema Psych: Appearance: grossly normal Mental Status: mental status grossly normal Speech and movement: Normal speech and movement present Results Labs Result diagrams: 07/01/21 05:29 07/01/21 05:29 Labs: Abnormal lab results 06/30/21 06/30/21 06/30/21 Range/Units 13:30 16:30 20:37 WBC (4.8-10.8) X10*3/uL RBC (4.60-5.80) X10*6/uL Hgb (14.0-18.0) g/dl Hct (42-52) % RDW (11.0-16.0) % Immature Retic Fraction (2.3-13.4) % Retic Hgb Equivalent (30.0-35.0) pg Sodium (135-145) mmol/L Carbon Dioxide (22-29) mmol/L POC Glucose 313 H 344 H 306 H (60-115) mg/dL Random Glucose (60-115) mg/dL Calcium (8.4-10.2) mg/dL Iron (45-160) mcg/dL TIBC (228-428) mcg/dL % Saturation (15-50) % 07/01/21 07/01/21 07/01/21 Range/Units 05:29 05:29 07:16 WBC 18.9 H (4.8-10.8) X10*3/uL RBC 2.86 L D (4.60-5.80) X10*6/uL Hgb 7.8 L D (14.0-18.0) g/dl Hct 23.5 L D (42-52) % RDW 16.9 H (11.0-16.0) % Immature Retic Fraction 16.8 H (2.3-13.4) % Retic Hgb Equivalent 24.2 L (30.0-35.0) pg Sodium 133 L (135-145) mmol/L Carbon Dioxide 21 L (22-29) mmol/L POC Glucose 258 H (60-115) mg/dL Random Glucose 282 H D (60-115) mg/dL Calcium 7.7 L D (8.4-10.2) mg/dL Iron 8 L (45-160) mcg/dL TIBC 220 L (228-428) mcg/dL % Saturation 4 L (15-50) % 07/01/21 Range/Units 11:21 WBC (4.8-10.8) X10*3/uL RBC (4.60-5.80) X10*6/uL Hgb (14.0-18.0) g/dl Hct (42-52) % RDW (11.0-16.0) % Immature Retic Fraction (2.3-13.4) % Retic Hgb Equivalent (30.0-35.0) pg Sodium (135-145) mmol/L Carbon Dioxide (22-29) mmol/L POC Glucose 275 H (60-115) mg/dL Random Glucose (60-115) mg/dL Calcium (8.4-10.2) mg/dL Iron (45-160) mcg/dL TIBC (228-428) mcg/dL % Saturation (15-50) % Short CBC 07/01/21 Range/Units 05:29 WBC 18.9 H (4.8-10.8) X10*3/uL Hgb 7.8 L D (14.0-18.0) g/dl Hct 23.5 L D (42-52) % Plt Count 348 (160-400) X10*3/uL BMP 07/01/21 05:29 Sodium 133 L Potassium 3.6 Chloride 103 Carbon Dioxide 21 L BUN 10 D Creatinine 0.83 Calcium 7.7 L D All other labs normal. Assessment and Plan (1) PAD (peripheral artery disease): Status: Acute Patient had undergone right lower extremity endovascular intervention in October of this year by me. On surveillance follow-up in January he had an MOISE on the left of 1.08. He had been doing relatively well. He reports that over the last week the left side has significantly deteriorated. I suspected it has been going on somewhat longer than that. He does have dry gangrene and a nonhealing ulcer. I have taken the liberty of ordering noninvasive arterial testing. Would continue with antibiotics. At the bare minimum would suspect that he will require some sort of amputation to better control this. We will closely monitor this patient with you. We will await results of ultrasound and MRI. Thank you for allowing us to assist in his care. If there are any questions or concerns please do not hesitate to contact us. Procedures Date of Service Date of Service: 07/01/21
--- NOTE | 2021-07-01 14:34 | P.CNID_ITS ---
History of Present Illness Data of Consult Service Date: 07/01/21 Requesting physician: Bee Suggs Primary Care Provider: Unknown Physician HPI Reason for consult: diabetic foot infection He presents with odor and dark color to left foot. He has necrosis. He said five days ago he was at [facility] and wound looked clear. XRay shows gas and he has seen Vascular. Review of Systems Review of Systems: Yes all other systems are reviewed and are negative PMFSH Past Medical History Medical History Diabetes Diabetic foot ulcer Gangrene of toe of left foot GERD (gastroesophageal reflux disease) History of angiography PAD (peripheral artery disease) PICC (peripherally inserted central catheter) in place Family History Family History Other Diabetes Surgical History Surgical History Amputated toe of right foot (11/05/20) Social History Social History Household Members: Significant Other and Other Housing: House Do you presently have visiting nurse or other home services: No Alcohol intake: never Patient Tobacco Use Status: Never used Tobacco Tobacco use type: Cigarette Cigarettes Per Day: 10 Years Smoked: 15 Smoked in Last 30 Days: Yes Patient Interested in Nicotine Replacement: No Patient Given Instructions on How to Stop Smoking: No Second Hand Smoke Exposure: No Use of substances other than those prescribed or required for medical reasons: No Currently Displaying Signs/Symptoms of Drug Intoxication Withdrawal: No Have you been hit, kicked, punched, or otherwise hurt by someone within the past year? If so, by whom?: No Do you feel safe in your current relationship?: Yes Is there a partner from a previous relationship who is making you feel unsafe now?: No Are you made to feel afraid or neglected: No Advance Directives: No Advance Directives Information Provided: Yes Do you have thoughts of harming others: None Do you have a plan to hurt others: No Plan Recently lost weight without trying: No Eating poorly because of decreased appetite: No Nutrition Risks: No Nutritional Risk Poor oral hygiene: No service: No Current occupational status: employed Meds Allergies Allergy/AdvReac Type Severity Reaction Status Date / Time No Known Allergies Allergy Verified 02/26/21 13:01 Active Medications: Current Medications Acetaminophen (Acetaminophen 325 Mg Tablet) 650 mg PO Q4H PRN PRN Reason: pain/fever Last Admin: 06/30/21 21:18 Dose: 650 mg Documented by: Al Hydroxide/Mg Hydroxide (Magnesium Hydrox/Alum Hydrox 30 Ml Oral.Susp) 30 ml PO Q4H PRN PRN Reason: Heartburn/Nausea Last Admin: 07/01/21 00:12 Dose: 30 ml Documented by: Atorvastatin Calcium (Atorvastatin Calcium 40 Mg Tablet) 40 mg PO DAILY [facility] Last Admin: 07/01/21 08:11 Dose: 40 mg Documented by: Enoxaparin Sodium (Enoxaparin Sodium 40 Mg/0.4 Ml Syringe) 40 mg SUBCUT DAILY [facility] Last Admin: 07/01/21 08:11 Dose: 40 mg Documented by: Piperacillin Sod/Tazobactam (Sod 3.375 gm/ Sodium Chloride) 50 mls @ 100 mls/hr IV Q8H [facility] Last Infusion: 07/01/21 13:10 Dose: Infused Documented by: Vancomycin HCl 1,000 mg/ (Sodium Chloride) 270 mls @ 270 mls/hr IV Q12H [facility] Last Infusion: 07/01/21 06:08 Dose: Infused Documented by: Insulin Glargine (Insulin Glargine,Hum.Rec.Anlog 100 Unit/Ml 10 Ml Vial) 18 unit SUBCUT BID [facility] Last Admin: 07/01/21 08:11 Dose: 18 unit Documented by: Insulin Human Lispro (Insulin Lispro 100 Unit/Ml 3 Ml Vial) 0 unit SUBCUT QIDACHS [facility]; Protocol Last Admin: 07/01/21 11:34 Dose: 8 unit Documented by: Lisinopril (Lisinopril 5 Mg Tablet) 5 mg PO DAILY [facility]; Protocol Last Admin: 07/01/21 08:11 Dose: 5 mg Documented by: Melatonin (Melatonin 3 Mg Tablet) 6 mg PO BEDTIME PRN PRN Reason: Insomnia Morphine Sulfate (Morphine Sulfate 4 Mg/Ml Cartridge) 3 mg IVPUSH Q4H PRN; Protocol PRN Reason: Pain, Severe (Pain Scale 7-10) Pharmacy Consult (Consult Rx Vancomycin Dosing) 1 each MISCELLANE DAILY PRN PRN Reason: Consult order Pharmacy Consult (Consult Rx Vancomycin Dosing) 1 each MISCELLANE DAILY PRN PRN Reason: Consult order Sodium Chloride (0.9 % Sodium Chloride Flush 3 Ml Syringe) 3 ml IVFLUSH QSHIFT [facility] Last Admin: 07/01/21 11:35 Dose: 3 ml Documented by: Home Medications Medication Instructions Recorded Confirmed Last Taken Type metformin 1,000 mg tablet 1 tab PO BID 10/31/20 06/30/21 Unknown History blood sugar diagnostic #10 ea 11/20/20 06/30/21 Unknown History lisinopril 5 mg tablet 5 mg PO DAILY 11/20/20 06/30/21 Unknown History pen needle, diabetic 32 gauge x #50 ea 11/20/20 06/30/21 Unknown History atorvastatin 40 mg tablet 1 tab PO DAILY 06/30/21 06/30/21 Unknown History insulin glargine 100 unit/mL (3 15 unit SUBCUT BID 06/30/21 06/30/21 Unknown History mL) subcutaneous pen (Basaglar KwikPen U-100 Insulin) Physical Exam Vital Signs: Vital Signs: Last Vital Signs Temp 99.3 F 07/01/21 11:23 Pulse 90 07/01/21 11:23 Resp 18 07/01/21 11:23 BP 139/67 07/01/21 11:23 Pulse Ox 95 07/01/21 11:23 Body Mass Index 30.7 Const: General: cooperative HENMT: Head: Yes normal to inspection Mouth: Normal oral and palatal mucosa present Eyes: General: appearance normal, both eyes and all related structures Resp: Effort & Inspection: normal respiratory effort Cardio: Rate: regular rate Rhythm: regular rhythm GI: Palpation (GI): Soft to palpation and nontender Extrem: Other: foul smelling left foot necrosis duskiness foot, especially fourth digit Results Labs CBC & Chem 7: 07/01/21 05:29 07/01/21 05:29 Labs: Short CBC 07/01/21 Range/Units 05:29 WBC 18.9 H (4.8-10.8) X10*3/uL Hgb 7.8 L D (14.0-18.0) g/dl Hct 23.5 L D (42-52) % Plt Count 348 (160-400) X10*3/uL BMP 07/01/21 05:29 Sodium 133 L Potassium 3.6 Chloride 103 Carbon Dioxide 21 L BUN 10 D Creatinine 0.83 Calcium 7.7 L D Microbiology Microbiology Results: Microbiology 06/30/21 03:25 Blood - Arterial Blood Culture - Preliminary No growth after 24 hours. 06/30/21 02:15 Blood - Arterial Blood Culture - Preliminary No growth after 24 hours. Assessment and Plan (1) Diabetic foot ulcer: Status: Acute He has probable multifocal infection including anerobes,gram negative and gram positive including MRSA He has seen vascular and with gas may need Surgical intervention. Would continue Vancomycin and Zosyn Duration of antibiotics depends on whether needs surgical intervention (likely) and if is bacteremic. Await cultures.
[2021-07-01 14:37] LABS: Vancomycin Trough 5.7 mcg/mL (10.0-20.0)
[2021-07-01] MEDS: Acetaminophen 325 MG TABLET 650 MG PO ×2 (15:02→19:51)
--- NOTE | 2021-07-01 15:49 | HO.WOUNDCONS ---
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 A recent I&D was performed in that regard. He developed a new left plantar ulcer approximately 1 month ago that was primarily at callus. New was debrided and cultured. He was placed on oral antibiotics to cover resultant organisms. The plan was to pursue an MRI of the 5th ray in consideration of osteomyelitis after sampling of material revealed necrotic bone. Unfortunately, over the weekend the patient became acutely ill and the 4th ray became painful with the wound involving the midfoot. This is a distinctly different picture than when the patient was seen 1 week ago. There was no evidence of necrosis of the toe or the midfoot last Thursday. Review of Systems Review of Systems: feels better with antibiotics on board. no sob/cp. denies f/c/sweats. Blood sugar in excess of 500 at admission. Yes all other systems are reviewed and are negative [facility] Medical History Diabetes Diabetic foot ulcer Gangrene of toe of left foot GERD (gastroesophageal reflux disease) History of angiography PAD (peripheral artery disease) PICC (peripherally inserted central catheter) in place Family History Other Diabetes Pertinent family history: noncontributory Surgical History Amputated toe of right foot (11/05/20) Social History Household Members: Significant Other and Other Housing: House Do you presently have visiting nurse or other home services: No Alcohol intake: never Patient Tobacco Use Status: Never used Tobacco Tobacco use type: Cigarette Cigarettes Per Day: 10 Years Smoked: 15 Smoked in Last 30 Days: Yes Patient Interested in Nicotine Replacement: No Patient Given Instructions on How to Stop Smoking: No Second Hand Smoke Exposure: No Use of substances other than those prescribed or required for medical reasons: No Currently Displaying Signs/Symptoms of Drug Intoxication Withdrawal: No Have you been hit, kicked, punched, or otherwise hurt by someone within the past year? If so, by whom?: No Do you feel safe in your current relationship?: Yes Is there a partner from a previous relationship who is making you feel unsafe now?: No Are you made to feel afraid or neglected: No Advance Directives: No Advance Directives Information Provided: Yes Do you have thoughts of harming others: None Do you have a plan to hurt others: No Plan Recently lost weight without trying: No Eating poorly because of decreased appetite: No Nutrition Risks: No Nutritional Risk Poor oral hygiene: No service: No Current occupational status: employed Meds Allergies Allergy/AdvReac Type Severity Reaction Status Date / Time No Known Allergies Allergy Verified 02/26/21 13:01 Active Medications: Current Medications Acetaminophen (Acetaminophen 325 Mg Tablet) 650 mg PO Q4H PRN PRN Reason: pain/fever Last Admin: 07/01/21 15:02 Dose: 650 mg Documented by: Al Hydroxide/Mg Hydroxide (Magnesium Hydrox/Alum Hydrox 30 Ml Oral.Susp) 30 ml PO Q4H PRN PRN Reason: Heartburn/Nausea Last Admin: 07/01/21 15:02 Dose: 30 ml Documented by: Atorvastatin Calcium (Atorvastatin Calcium 40 Mg Tablet) 40 mg PO DAILY [facility] Last Admin: 07/01/21 08:11 Dose: 40 mg Documented by: Enoxaparin Sodium (Enoxaparin Sodium 40 Mg/0.4 Ml Syringe) 40 mg SUBCUT DAILY [facility] Last Admin: 07/01/21 08:11 Dose: 40 mg Documented by: Piperacillin Sod/Tazobactam (Sod 3.375 gm/ Sodium Chloride) 50 mls @ 100 mls/hr IV Q8H [facility] Last Infusion: 07/01/21 13:10 Dose: Infused Documented by: Vancomycin HCl 1,500 mg/ (Sodium Chloride) 250 mls @ 270 mls/hr IV Q12H [facility] Insulin Glargine (Insulin Glargine,Hum.Rec.Anlog 100 Unit/Ml 10 Ml Vial) 18 unit SUBCUT BID [facility] Last Admin: 07/01/21 08:11 Dose: 18 unit Documented by: Insulin Human Lispro (Insulin Lispro 100 Unit/Ml 3 Ml Vial) 0 unit SUBCUT QIDACHS [facility]; Protocol Last Admin: 07/01/21 11:34 Dose: 8 unit Documented by: Lisinopril (Lisinopril 5 Mg Tablet) 5 mg PO DAILY [facility]; Protocol Last Admin: 07/01/21 08:11 Dose: 5 mg Documented by: Melatonin (Melatonin 3 Mg Tablet) 6 mg PO BEDTIME PRN PRN Reason: Insomnia Morphine Sulfate (Morphine Sulfate 4 Mg/Ml Cartridge) 3 mg IVPUSH Q4H PRN; Protocol PRN Reason: Pain, Severe (Pain Scale 7-10) Pharmacy Consult (Consult Rx Vancomycin Dosing) 1 each MISCELLANE DAILY PRN PRN Reason: Consult order Pharmacy Consult (Consult Rx Vancomycin Dosing) 1 each MISCELLANE DAILY PRN PRN Reason: Consult order Sodium Chloride (0.9 % Sodium Chloride Flush 3 Ml Syringe) 3 [facility] Last Admin: 07/01/21 11:35 Dose: 3 ml Documented by: Home Medications Medication Instructions Recorded Confirmed Last Taken Type metformin 1,000 mg tablet 1 tab PO BID 10/31/20 06/30/21 Unknown History blood sugar diagnostic #10 ea 11/20/20 06/30/21 Unknown History lisinopril 5 mg tablet 5 mg PO DAILY 11/20/20 06/30/21 Unknown History pen needle, diabetic 32 gauge x #50 ea 11/20/20 06/30/21 Unknown History atorvastatin 40 mg tablet 1 tab PO DAILY 06/30/21 06/30/21 Unknown History insulin glargine 100 unit/mL (3 15 unit SUBCUT BID 06/30/21 06/30/21 Unknown History mL) subcutaneous pen (Basaglar KwikPen U-100 Insulin) Physical Exam Vital Signs and Narrative: Vital Signs: Last Vital Signs Temp 103 F H 07/01/21 15:44 Pulse 95 07/01/21 15:44 Resp 20 07/01/21 15:44 BP 176/89 H 07/01/21 15:44 Pulse Ox 92 07/01/21 15:44 Body Mass Index 30.7 The blackened left 4th toe is completely different than the exam from 1 week ago. There was no mid foot ulceration at that time nor was there any toe discoloration. A lone plantar 5th MTP wound was seen with some surrounding edema and possible subdermal purulence coupled with fibrinous material. Comparatively now, the dorsal a midfoot ulcer is new, black and in surrounded by erythematous dermis with ischemic looking appearance. Results Labs CBC and Chem 7: 07/01/21 05:29 07/01/21 05:29 Labs: Laboratory Results - last 24 hr 06/30/21 06/30/21 07/01/21 16:30 20:37 05:29 MCV 82.2 MCH 27.3 MCHC 33.2 RDW 16.9 H Plt Count 348 MPV 9.7 Absolute Nucleated RBC 0.000 Nucleated RBC % (auto) 0.0 Absolute Retic 0.028 Percent Retic 1.0 Immature Retic Fraction 16.8 H Retic Hgb Equivalent 24.2 L Anion Gap Estim Creat Clear Calc Estimated GFR POC Glucose 344 H 306 H Random Glucose Calcium Iron TIBC % Saturation Unsat Iron Binding Ferritin Lactate Dehydrogenase Vitamin B12 Folate Vancomycin Trough 07/01/21 07/01/21 07/01/21 05:29 05:29 07:16 MCV MCH MCHC RDW Plt Count MPV Absolute Nucleated RBC Nucleated RBC % (auto) Absolute Retic Percent Retic Immature Retic Fraction Retic Hgb Equivalent Anion Gap 13 Estim Creat Clear Calc 112.0 Estimated GFR > 60 POC Glucose 258 H Random Glucose 282 H D Calcium 7.7 L D Iron 8 L TIBC 220 L % Saturation 4 L Unsat Iron Binding 212 Ferritin 150 Lactate Dehydrogenase 169 Vitamin B12 425 Folate 7.8 Vancomycin Trough 07/01/21 07/01/21 11:21 13:51 MCV MCH MCHC RDW Plt Count MPV Absolute Nucleated RBC Nucleated RBC % (auto) Absolute Retic Percent Retic Immature Retic Fraction Retic Hgb Equivalent Anion Gap Estim Creat Clear Calc Estimated GFR POC Glucose 275 H Random Glucose Calcium Iron TIBC % Saturation Unsat Iron Binding Ferritin Lactate Dehydrogenase Vitamin B12 Folate Vancomycin Trough 5.7 L Assessment and Plan (1) Diabetic foot ulcer: Status: Acute 50-year-old male with long-standing diabetes and a history of right diabetic foot ulceration with osteomyelitis and treatment with IV ertapenem and HBO within the last year. Agree with infectious disease consultation and current antibiotics. Agree with moved toward MRI to define abscess versus osteomyelitis to shape treatment options. Bone sample from one week ago shows necrotic bone left 5th MT head. I spoke to Dr. Hammer and feel strongly that the arterial aspect of this is likely acute and occlusive, given that he had a right popliteal arterial occlusion in August of 2020 that required revascularization and now has nearly the same presentation involving the contralateral foot. The patient is anemic. Discussed with the hospitalist the possibility of hemolysis/endocarditis as a confounding factor. Amputation would be most unfortunate but may be necessary to save the patient's life. Will follow along in the record.
[2021-07-01 16:26] LABS: Glucose, Whole Blood 234 mg/dL (60-115)
[2021-07-01 18:11] LABS: Glucose, Whole Blood 220 mg/dL (60-115)
[2021-07-01 20:07] LABS: Glucose, Whole Blood 223 mg/dL (60-115)
[2021-07-02] MEDS: Piperacillin Sodium/Tazobactam 3.375 GM in 0.9 % Sodium Chloride 50 ML IV ×4 (03:09→21:20)
[2021-07-02 04:00] VITALS: BP 173/87; PULSE 105; RESP 20; TEMP 39.3; O2SAT 95
[2021-07-02] MEDS: Acetaminophen 325 MG TABLET 650 MG PO ×3 (04:39→18:49)
[2021-07-02 06:15] VITALS: TEMP 37.2
[2021-07-02 06:42] LABS: Anion Gap 12 (12-20); Blood Urea Nitrogen 7 mg/dL (9-16); Calcium 7.6 mg/dL (8.4-10.2); Carbon Dioxide 22 mmol/L (22-29); Chloride 103 mmol/L (96-108); Creatinine Clr Calc Pharmacy 104.4; Estimated Glomerular Filt Rate > 60; Glucose Random 196 mg/dL (60-115); Potassium 3.4 mmol/L (3.3-5.1); Sodium 134 mmol/L (135-145)
[2021-07-02 06:57] LABS: Hematocrit 23.9 % (42-52); Hemoglobin 7.8 g/dl (14.0-18.0); Mean Corpuscular HGB Conc 32.6 g/dl (31.0-36.0); Mean Corpuscular Hemoglobin 26.7 pg (27.0-33.0); Mean Corpuscular Volume 81.8 fL (80-98); Mean Platelet Volume 9.8 fL (9.4-12.4); Platelet Count 380 X10*3/uL (160-400); Red Blood Count 2.92 X10*6/uL (4.60-5.80); Red Cell Distribution Width 17.1 % (11.0-16.0); White Blood Count 19.9 X10*3/uL (4.8-10.8)
[2021-07-02 07:13] LABS: Glucose, Whole Blood 197 mg/dL (60-115)
[2021-07-02 07:54] VITALS: BP 108/92; PULSE 85; RESP 18; TEMP 37.6; O2SAT 96
[2021-07-02] MEDS: Insulin Lispro 100 UNIT/ML 3 ML VIAL SUBCUT ×4 (09:06→21:21)
[2021-07-02] MEDS: Insulin Glargine,Hum.rec.anlog 100 UNIT/ML 10 ML VIAL 20 UNIT SUBCUT ×2 (09:06→21:21)
[2021-07-02] MEDS: Enoxaparin Sodium 40 MG/0.4 ML SYRINGE SUBCUT (09:07)
[2021-07-02] MEDS: Atorvastatin Calcium 40 MG TABLET PO (09:07)
[2021-07-02] MEDS: 0.9 % Sodium Chloride Flush 3 ML SYRINGE IVFLUSH ×2 (09:07→16:26)
[2021-07-02] MEDS: lisinopriL 5 MG TABLET PO (09:07)
--- NOTE | 2021-07-02 09:52 | HE.PHANOTE ---
Patient was on Zosyn 3.375 g Q8H for a diabetic foot infection, based on his current renal function of Scr 0.89 the patient should be getting Q6H dosing. Reached out to the provider to make the recommendation. Tootie Gandhi, PharmD [phone]
[2021-07-02 10:02] LABS: INTERNATIONAL NORM RATIO 1.3 (0.9-1.1); Prothrombin Time 14.9 SEC (9.9-13.0)
[2021-07-02 10:05] LABS: Partial Thromboplastin Time 35.3 SEC (24.1-38.0)
--- NOTE | 2021-07-02 10:23 | P.PNIM_ITS ---
Subjective Subjective Date of Service: 07/02/21 Interval History: Spiked fever yesterday afternoon and again this morning L foot with foul drainage Review of Systems Review of Systems: Yes all other systems are reviewed and are negative Physical Exam Vital Signs: Vital Signs: Last Vital Signs Temp 99.6 F 07/02/21 07:54 Pulse 85 07/02/21 07:54 Resp 18 07/02/21 07:54 BP 108/92 H 07/02/21 07:54 Pulse Ox 96 07/02/21 07:54 Body Mass Index 30.7 Gen: in no acute distress HEENT: sclera anicteric, moist mucus membranes Neck: supple Lungs: clear to auscultation bilaterally Heart: regular rate and rhythm, no murmurs Abd: soft, non-tender, non-distended Ext: no edema Skin: necrotic ulcer at base of 4th toe on dorsum of L foot, also necrotic ulcer on plantar surface; L 4th toe dusky; s/p R 4th toe amputation Neuro: alert and oriented x3, no focal findings Psych: appropriate affect Objective Data Active Medications Acetaminophen (Acetaminophen 325 Mg Tablet) 650 mg PO Q4H PRN PRN Reason: pain/fever Last Admin: 07/02/21 04:39 Dose: 650 mg Documented by: LUKAS Al Hydroxide/Mg Hydroxide (Magnesium Hydrox/Alum Hydrox 30 Ml Oral.Susp) 30 ml PO Q4H PRN PRN Reason: Heartburn/Nausea Last Admin: 07/01/21 15:02 Dose: 30 ml Documented by: MADINA Atorvastatin Calcium (Atorvastatin Calcium 40 Mg Tablet) 40 mg PO DAILY [facility] Last Admin: 07/02/21 09:07 Dose: 40 mg Documented by: MADINA Enoxaparin Sodium (Enoxaparin Sodium 40 Mg/0.4 Ml Syringe) 40 mg SUBCUT DAILY [facility] Last Admin: 07/02/21 09:07 Dose: 40 mg Documented by: MADINA Vancomycin HCl 1,500 mg/ (Sodium Chloride) 500 mls @ 333.333 mls/hr IV Q12H [facility] Sodium Chloride (Ns) 1,000 mls @ 100 mls/hr IVCONT .Q10H [facility] Piperacillin Sod/Tazobactam (Sod 3.375 gm/ Sodium Chloride) 50 mls @ 100 mls/hr IV Q6H [facility] Insulin Glargine (Insulin Glargine,Hum.Rec.Anlog 100 Unit/Ml 10 Ml Vial) 20 unit SUBCUT BID [facility] Last Admin: 07/02/21 09:06 Dose: 20 unit Documented by: MADINA Insulin Human Lispro (Insulin Lispro 100 Unit/Ml 3 Ml Vial) 0 unit SUBCUT QIDACHS [facility]; Protocol Last Admin: 07/02/21 09:06 Dose: 4 unit Documented by: MADINA Lisinopril (Lisinopril 5 Mg Tablet) 5 mg PO DAILY [facility]; Protocol Last Admin: 07/02/21 09:07 Dose: 5 mg Documented by: MADINA Melatonin (Melatonin 3 Mg Tablet) 6 mg PO BEDTIME PRN PRN Reason: Insomnia Morphine Sulfate (Morphine Sulfate 4 Mg/Ml Cartridge) 3 mg IVPUSH Q4H PRN; Protocol PRN Reason: Pain, Severe (Pain Scale 7-10) Pharmacy Consult (Consult Rx Vancomycin Dosing) 1 each MISCELLANE DAILY PRN PRN Reason: Consult order Pharmacy Consult (Consult Rx Vancomycin Dosing) 1 each MISCELLANE DAILY PRN PRN Reason: Consult order Sodium Chloride (0.9 % Sodium Chloride Flush 3 Ml Syringe) 3 ml IVFLUSH QSHIFT [facility] Last Admin: 07/02/21 09:07 Dose: 3 ml Documented by: MADINA Labs CBC & Chem 7: 07/02/21 06:14 07/02/21 06:14 Labs: Laboratory Results - last 24 hr 07/01/21 07/01/21 07/01/21 11:21 13:51 16:11 MCV MCH MCHC RDW Plt Count MPV Absolute Nucleated RBC Nucleated RBC % (auto) PT INR APTT Anion Gap Estim Creat Clear Calc Estimated GFR POC Glucose 275 H 234 H Random Glucose Calcium Vancomycin Trough 5.7 L Blood Type Antibody Screen 07/01/21 07/01/21 07/02/21 18:06 19:45 06:14 MCV MCH MCHC RDW Plt Count MPV Absolute Nucleated RBC Nucleated RBC % (auto) PT INR APTT Anion Gap 12 Estim Creat Clear Calc 104.4 Estimated GFR > 60 POC Glucose 220 H 223 H Random Glucose 196 H Calcium 7.6 L Vancomycin Trough Blood Type Antibody Screen 07/02/21 07/02/21 07/02/21 06:14 06:14 07:01 MCV 81.8 MCH 26.7 L MCHC 32.6 RDW 17.1 H Plt Count 380 MPV 9.8 Absolute Nucleated RBC 0.000 Nucleated RBC % (auto) 0.0 PT INR APTT Anion Gap Estim Creat Clear Calc Estimated GFR POC Glucose 197 H Random Glucose Calcium Vancomycin Trough Blood Type A Positive Antibody Screen NEGATIVE 07/02/21 09:30 MCV MCH MCHC RDW Plt Count MPV Absolute Nucleated RBC Nucleated RBC % (auto) PT 14.9 H INR 1.3 H APTT 35.3 Anion Gap Estim Creat Clear Calc Estimated GFR POC Glucose Random Glucose Calcium Vancomycin Trough Blood Type Antibody Screen Impressions Duplex Scan Lower Extremity Artery 07/01/21 12:20 IMPRESSION: 1. Occlusion of the left mid SFA on duplex ultrasound with patency of the calf vessels secondary to collateral flow. 2. Moderate peripheral arterial disease of the left lower extremity by MOISE. 3. No hemodynamically significant stenoses in the right lower extremity. Normal MOISE. Abd US [id number] 07/01/21 17:30 IMPRESSION: 1. Occlusion of the left mid SFA on duplex ultrasound with patency of the calf vessels secondary to collateral flow. 2. Moderate peripheral arterial disease of the left lower extremity by MOISE. 3. No hemodynamically significant stenoses in the right lower extremity. Normal MOISE. Microbiology Microbiology Results: Microbiology 06/30/21 03:25 Blood Culture - Preliminary Blood - Arterial No growth after 48 hours. 06/30/21 02:15 Blood Culture - Preliminary Blood - Arterial No growth after 48 hours. Assessment and Plan (1) Diabetic foot ulcer: Status: Acute (2) Cellulitis of foot: Status: Acute (3) Sepsis: Status: Acute Assessment and Plan: hospital d#3 50yo M with DM2, PAD, hx amputation of R 4th toe due to osteomyelitis admitted with severe sepsis due to necrotic ulcers on L 4th foot, necrotic bone on aspirate from wound clinic found to have L SFA occlusion # severe sepsis # DM foot infection/osteomyelitis # peripheral arterial disease - not bacteremic - NPO after midnight for angiogram/plasy tomorrow - MRI to assess extent of osteomyelitis- will likely require TMTA for definitive cure of infection - vanco + pip/adalberto d#3; ID following # prerenal ALEKSANDR - resolved p IV fluid hydration, SCr now normal # iron deficiency anemia - will need iron replacement once infection under control; T+S active; check FOBT # DM2, A1c 8.5 - basal/bolus insulin- increase doses for better glycemic control # HTN - continue lisinopril # HLD - statin # VTE ppx - LMWH Quality Stroke Does the patient have a stroke diagnosis?: No VTE Prior VTE?: No VTE Risk Level:: Medical - moderate - high VTE Device Contraindication: Treatment Not Tolerated VTE Drug Contraindication: N/A - Med Ordered
[2021-07-02 11:46] LABS: Glucose, Whole Blood 227 mg/dL (60-115)
--- NOTE | 2021-07-02 14:50 | P.PNVS_ITS ---
Subjective Subjective Date of Service: 07/02/21 Patient reports: no new complaints Interval history: Complex 50-year-old gentleman with a diabetic foot ulcer. He has undergone noninvasive arterial testing along with MRI yesterday. He continues to have left lower extremity pain and discomfort. The toe appears to be demarcating. He has had nonhealing ulcers for sometime now. He now presents for follow-up with noninvasive testing. Physical Exam Vital Signs: Vital Signs: Last Vital Signs Temp 99.6 F 07/02/21 07:54 Pulse 85 07/02/21 07:54 Resp 18 07/02/21 07:54 BP 108/92 H 07/02/21 07:54 Pulse Ox 96 07/02/21 07:54 Body Mass Index 30.7 Const: General: cooperative, healthy appearing and no acute distress Orientation/consciousness: oriented to person, oriented to place and oriented to time HENMT: Head: Yes normal to inspection Neck: Carotids: no bruits Chest: Chest palpation & inspection: normal inspection of the chest Resp: Effort & Inspection: normal respiratory effort and able to speak in complete sentences Auscultation: clear to auscultation bilaterally Cardio: Rate: regular rate Heart sounds: S1 normal heart sound present and S2 normal heart sound present GI: Inspection: Yes normal to inspection Skin: General skin exam: no rashes or lesions noted Wounds: wounds noted (Left 4th toe) Neuro: General: oriented to person, oriented to place, oriented to time and CN's II-XI intact bilaterally Extrem: General: Yes normal to inspection, Yes full ROM and Yes no clubbing, cyanosis or edema Psych: Appearance: grossly normal and well kempt Speech and movement: Normal speech and movement present Affect: normal affect Progress Note: A&P Assessment and plan (1) PAD (peripheral artery disease): Status: Acute Assessment and Plan: Patient notes nonhealing left 4th toe ulcer I have discussed the pathophysiology of peripheral vascular disease with the patient. I have also discussed risk factor modification. I have reviewed the patient's arterial testing which reveals MOISE of 0.62 with left SFA disease the patient would benefit from a left leg endovascular peripheral angiogram with possible angioplasty, stent, and/or atherectomy. This has been discussed in detail with the patient along with risks, benefits, and complications. This includes but is not limited to bleeding, infection, heart attack, need for emergent surgical repair, limb ischemia, blood vessel damage, bleeding, puncture, kidney injury, bruising, allergic reaction, and skin reaction. The patient demonstrates a clear understanding. We will schedule for the next appropriate time. Thank you for allowing us to assist in this patient's care. Fall Risk Details Current Medications: Current Medications Acetaminophen (Acetaminophen 325 Mg Tablet) 650 mg PO Q4H PRN PRN Reason: pain/fever Last Admin: 07/02/21 12:04 Dose: 650 mg Documented by: Al Hydroxide/Mg Hydroxide (Magnesium Hydrox/Alum Hydrox 30 Ml Oral.Susp) 30 ml PO Q4H PRN PRN Reason: Heartburn/Nausea Last Admin: 07/01/21 15:02 Dose: 30 ml Documented by: Atorvastatin Calcium (Atorvastatin Calcium 40 Mg Tablet) 40 mg PO DAILY [facility] Last Admin: 07/02/21 09:07 Dose: 40 mg Documented by: Enoxaparin Sodium (Enoxaparin Sodium 40 Mg/0.4 Ml Syringe) 40 mg SUBCUT DAILY [facility] Last Admin: 07/02/21 09:07 Dose: 40 mg Documented by: Vancomycin HCl 1,500 mg/ (Sodium Chloride) 500 mls @ 333.333 mls/hr IV Q12H [facility] Sodium Chloride (Ns) 1,000 mls @ 100 mls/hr IVCONT .Q10H [facility] Piperacillin Sod/Tazobactam (Sod 3.375 gm/ Sodium Chloride) 50 mls @ 100 mls/hr IV Q6H [facility] Last Infusion: 07/02/21 14:38 Dose: Infused Documented by: Insulin Glargine (Insulin Glargine,Hum.Rec.Anlog 100 Unit/Ml 10 Ml Vial) 20 unit SUBCUT BID [facility] Last Admin: 07/02/21 09:06 Dose: 20 unit Documented by: Insulin Human Lispro (Insulin Lispro 100 Unit/Ml 3 Ml Vial) 0 unit SUBCUT QIDACHS [facility]; Protocol Last Admin: 07/02/21 12:01 Dose: 6 unit Documented by: Lisinopril (Lisinopril 5 Mg Tablet) 5 mg PO DAILY [facility]; Protocol Last Admin: 07/02/21 09:07 Dose: 5 mg Documented by: Melatonin (Melatonin 3 Mg Tablet) 6 mg PO BEDTIME PRN PRN Reason: Insomnia Morphine Sulfate (Morphine Sulfate 4 Mg/Ml Cartridge) 3 mg IVPUSH Q4H PRN; Protocol PRN Reason: Pain, Severe (Pain Scale 7-10) Pharmacy Consult (Consult Rx Vancomycin Dosing) 1 each MISCELLANE DAILY PRN PRN Reason: Consult order Pharmacy Consult (Consult Rx Vancomycin Dosing) 1 each MISCELLANE DAILY PRN PRN Reason: Consult order Sodium Chloride (0.9 % Sodium Chloride Flush 3 Ml Syringe) 3 ml IVFLUSH QSHIFT [facility] Last Admin: 07/02/21 09:07 Dose: 3 ml Documented by: Time Spent With Patient Time: Total time spent is greater than 50% in coordination of care (as documented) at patient's floor/unit and/or counseling patient: Time with patient: 25 - 35 minutes Procedures Date of Service Date of Service: 07/02/21 Quality Stroke Does the patient have a stroke diagnosis?: No VTE Prior VTE?: No VTE Risk Level:: Medical - moderate - high VTE Device Contraindication: Treatment Not Tolerated VTE Drug Contraindication: N/A - Med Ordered
[2021-07-02] MEDS: vancomycin HCL 1,500 MG in 0.9 % Sodium Chloride 500 ML 333.33 MG IV (16:26)
[2021-07-02 17:00] LABS: Glucose, Whole Blood 160 mg/dL (60-115)
[2021-07-02 21:01] LABS: Glucose, Whole Blood 166 mg/dL (60-115)
[2021-07-02 21:08] VITALS: TEMP 36.6
[2021-07-02 23:32] VITALS: BP 107/72; PULSE 92; RESP 17; TEMP 39.3; O2SAT 94
[2021-07-03] VITALS (12 sets, daily range): BP systolic 129–198; BP diastolic 72–103; PULSE 90–103; RESP 16–19; TEMP 36.2–38.3; O2SAT 94–97
[2021-07-03] MEDS: ondansetron HCL 4 MG/2 ML VIAL IVPUSH ×2 (00:09→19:42)
[2021-07-03] MEDS: 0.9 % Sodium Chloride Flush 3 ML SYRINGE IVFLUSH ×2 (00:09→15:20)
[2021-07-03 03:31] LABS: Vancomycin Trough 10.6 mcg/mL (10.0-20.0)
[2021-07-03] MEDS: Piperacillin Sodium/Tazobactam 3.375 GM in 0.9 % Sodium Chloride 50 ML IV ×3 (03:48→20:48)
[2021-07-03] MEDS: vancomycin HCL 1,500 MG in 0.9 % Sodium Chloride 500 ML 250 MG IV (04:34)
[2021-07-03] MEDS: Prochlorperazine Edisylate 10 MG/2 ML VIAL 5 MG IVPUSH (05:08)
--- NOTE | 2021-07-03 05:12 | MHC.PIE ---
p; pt c/o n/v. note; prn zofran given at 0009. i; dr vargas notified; new order compazine 5mg iv now. e; will cont to monitor
[2021-07-03 05:49] LABS: Hematocrit 23.5 % (42-52); Hemoglobin 7.6 g/dl (14.0-18.0); Mean Corpuscular HGB Conc 32.3 g/dl (31.0-36.0); Mean Corpuscular Hemoglobin 26.3 pg (27.0-33.0); Mean Corpuscular Volume 81.3 fL (80-98); Mean Platelet Volume 9.7 fL (9.4-12.4); Platelet Count 375 X10*3/uL (160-400); Red Blood Count 2.89 X10*6/uL (4.60-5.80); Red Cell Distribution Width 17.2 % (11.0-16.0); White Blood Count 22.4 X10*3/uL (4.8-10.8)
[2021-07-03 06:20] LABS: Anion Gap 12 (12-20); Blood Urea Nitrogen 5 mg/dL (9-16); Calcium 7.8 mg/dL (8.4-10.2); Carbon Dioxide 26 mmol/L (22-29); Chloride 101 mmol/L (96-108); Creatinine Clr Calc Pharmacy 106.8; Estimated Glomerular Filt Rate > 60; Glucose Random 194 mg/dL (60-115); Potassium 3.3 mmol/L (3.3-5.1); Sodium 136 mmol/L (135-145)
[2021-07-03 06:48] LABS: Glucose, Whole Blood 196 mg/dL (60-115)
[2021-07-03] MEDS: 0.9 % Sodium Chloride 1,000 ML 100 ML IVCONT (07:10)
--- NOTE | 2021-07-03 08:21 | HE.PHANOTE ---
Vancomycin dosing follow up: Pt had a trough of 10.6 07/03 @0300, AUC was in 400's, pt was febrile and is being treated for osteo/skin. I increased dose since cr also improved since admission. predicted auc = 548, trough 15.3
--- NOTE | 2021-07-03 09:39 | W.PM.OPN ---
Operative Note Operative Note Date of Service: 07/03/21 Narrative: Angiogram report from [facility] Preoperative diagnosis: Atherosclerosis of Left lower extremity with nonhealing ulcer Postoperative diagnosis: Same Procedure: 1. Ultrasound-guided right common femoral access 2. Aortogram with left lower extremity runoff 3. atherectomy and stent of left SFA Surgeon:Bebeto Hammer M.D., FACS, RPVI Crutching Contractor:None Anesthesia: Local with moderate conscious sedation. Total intraservice moderate sedation time was 64 minutes. I monitored the patient's level of consciousness and physiologic status continuously throughout the procedure. Specimens:none Drains:none Estimated blood loss: Less than 10 ml Implant: [employer] Viabahn 6x10 Indications: 50-year-old diabetic gentleman presented with acute onset left lower extremity nonhealing ulcer. He was subsequently worked up with noninvasive testing and shown to have left mid SFA occlusion. He now presents for endovascular intervention. The patient has signed the informed consent after reviewing risks, complications, benefits, and alternatives previously discussed with the patient. The patient was given the opportunity to ask any additional questions or voice any concerns. All questions were answered to the patient's satisfaction. Procedure in detail: Patient was brought to the angiography suite prior to which a time-out was called for patient identification and site verification. Bilateral groins were prepped and draped in the standard surgical fashion. Under ultrasound guidance Right common femoral was punctured with micro puncture needle and wire. Subsequently a precision 4 Mongolian sheath was then placed. Bentson wire was advanced to the level of the aorta. 4 Mongolian Flush catheter was brought up and parked at the level of the renal arteries. Aortogram was then undertaken. Catheter was brought down to the level of the iliac bifurcation. Iliacs were subsequently imaged. Catheter was then brought in up and over to the left side SFA. Runoff study was then undertaken. at this point mid SFA occlusion was noted. 5000 units of systemic heparin was administered. After 5 minutes of circulation time up and over 6 Mongolian sheath was placed. 035 glidewire Advantage was used to traverse the lesion. We confirmed true lumen with a catheter and instilled contrast. Once this was accomplished we then exchanged out for a spider wire. We performed atherectomy of that mid SFA lesion with an Hawk 1 device. Multiple unidirectional passes were undertaken. Once this was accomplished we then placed a [place] via by on 6 x 10 stent. After the stent we used a 6 x 60 balloon to obtain good wall apposition. Once this was accomplished completion angiogram was then undertaken. Spider wire was then removed. Sheath was brought back to the ipsilateral side. StarClose closure device was then deployed. Patient tolerated the procedure well. Returned to recovery with stable vitals. Interpretation of films: 1. Ultrasound demonstrates appropriate femoral puncture. Image of which was saved. 2. Aortogram demonstrates appropriate caliber aorta. Minimal disease. Appropriate take-off of the renals. 3. Iliac images demonstrate Sharp bifurcation with no significant disease. 4. Left Leg Common femoral artery: no significant disease Profundus Femoris: No significant disease Superficial femoral artery: total occlusion mid SFA with immediate reconstitution Popliteal artery (p1,p2,p3): good flow through all 3 segments Anterior tibial artery: occludes after the proximal taken Peroneal artery: patent with no significant disease Posterior tibial artery: patent with no significant disease Dorsalis pedis/plantar arch: was seen to fill 5. Completion angiogram showed excellent flow through the SFA Conclusion: 1. successful atherectomy and stent placement of left SFA. Concern here is that this was a soft plaque and more of an embolic event. He may require formal anticoagulation. Will discuss with the hospitalist team. 2. Anticoagulation status: [] This note is constructed using voice recognition software. While every effort has been made to ensure accuracy, b2b appointment setter errors may have been included. Thank you for allowing me to participate in the care of your patient. Yours sincerely, Bebeto Hammer MD, FACS, R.P.V.I.
[2021-07-03] MEDS: lisinopriL 5 MG TABLET PO (10:30)
--- NOTE | 2021-07-03 11:09 | MHC.CM.PN ---
Per ROUNDS discussion, Patient is not yet medically cleared for dc (Anticipate amputation tomorrow).HOME with services vs STR appears likely and CM will continue to follow for dc planning.
[2021-07-03 11:28] LABS: Glucose, Whole Blood 244 mg/dL (60-115)
[2021-07-03] MEDS: Insulin Lispro 100 UNIT/ML 3 ML VIAL SUBCUT ×3 (11:53→20:48)
[2021-07-03] MEDS: Enoxaparin Sodium 80 MG/0.8 ML SYRINGE SUBCUT ×2 (11:54→21:21)
[2021-07-03] MEDS: vancomycin HCL 1,250 MG in 0.9 % Sodium Chloride 250 ML 166.67 MG IV ×2 (11:54→21:22)
--- NOTE | 2021-07-03 12:19 | HO.PM.IMPN ---
Subjective Subjective Date of Service: 07/03/21 Interval History: febrile to 102.7 overnight to OR today; had atherectomy and stent of L SFA; concern for soft plaque indicative of embolic event has post op pain Review of Systems Review of Systems: Yes all other systems are reviewed and are negative Physical Exam Vital Signs: Vital Signs: Last Vital Signs Temp 98.1 F 07/03/21 11:13 Pulse 99 07/03/21 11:13 Resp 18 07/03/21 11:13 BP 176/78 H 07/03/21 11:59 Pulse Ox 97 07/03/21 11:13 Body Mass Index 30.7 Gen: in no acute distress HEENT: sclera anicteric, moist mucus membranes Neck: supple Lungs: clear to auscultation bilaterally Heart: regular rate and rhythm, no murmurs Abd: soft, non-tender, non-distended Ext: no edema Skin: necrotic ulcer at base of 4th toe on dorsum of L foot, also necrotic ulcer on plantar surface; L 4th toe dusky; s/p R 4th toe amputation Neuro: alert and oriented x3, no focal findings Psych: appropriate affect Objective Data Active Medications Acetaminophen (Acetaminophen 325 Mg Tablet) 650 mg PO Q4H PRN PRN Reason: pain/fever Last Admin: 07/02/21 18:49 Dose: 650 mg Documented by: NHI Al Hydroxide/Mg Hydroxide (Magnesium Hydrox/Alum Hydrox 30 Ml Oral.Susp) 30 ml PO Q4H PRN PRN Reason: Heartburn/Nausea Last Admin: 07/01/21 15:02 Dose: 30 ml Documented by: MADINA Atorvastatin Calcium (Atorvastatin Calcium 40 Mg Tablet) 40 mg PO DAILY [facility] Last Admin: 07/03/21 08:26 Dose: Not Given Documented by: CHRISTIANNE Non-Admin Reason: Off Unit: Surgery Enoxaparin Sodium (Enoxaparin Sodium 80 Mg/0.8 Ml Syringe) 80 mg SUBCUT Q12H [facility] Stop: 07/03/21 22:16 Last Admin: 07/03/21 11:54 Dose: 80 mg Documented by: CHRISTIANNE Sodium Chloride (Ns) 1,000 mls @ 100 mls/hr IVCONT .Q10H [facility] Last Admin: 07/03/21 07:10 Dose: 100 mls/hr Documented by: HO.GAVRILM Piperacillin Sod/Tazobactam (Sod 3.375 gm/ Sodium Chloride) 50 mls @ 100 mls/hr IV Q6H [facility] Last Admin: 07/03/21 08:27 Dose: Not Given Documented by: CHRISTIANNE Non-Admin Reason: Off Unit: Surgery Vancomycin HCl 1,250 mg/ (Sodium Chloride) 250 mls @ 166.667 mls/hr IV Q8H [facility] Last Admin: 07/03/21 11:54 Dose: 166.67 mls/hr Documented by: CHRISTIANNE Insulin Glargine (Insulin Glargine,Hum.Rec.Anlog 100 Unit/Ml 10 Ml Vial) 20 unit SUBCUT BID [facility] Last Admin: 07/03/21 08:27 Dose: Not Given Documented by: CHRISTIANNE Non-Admin Reason: Off Unit: Surgery Insulin Human Lispro (Insulin Lispro 100 Unit/Ml 3 Ml Vial) 0 unit SUBCUT QIDACHS [facility]; Protocol Last Admin: 07/03/21 11:53 Dose: 4 unit Documented by: CHRISTIANNE Lisinopril (Lisinopril 5 Mg Tablet) 5 mg PO DAILY [facility]; Protocol Last Admin: 07/03/21 10:30 Dose: 5 mg Documented by: OSCAR Melatonin (Melatonin 3 Mg Tablet) 6 mg PO BEDTIME PRN PRN Reason: Insomnia Morphine Sulfate (Morphine Sulfate 4 Mg/Ml Cartridge) 3 mg IVPUSH Q4H PRN; Protocol PRN Reason: Pain, Severe (Pain Scale 7-10) Ondansetron HCl (Ondansetron Hcl 4 Mg/2 Ml Vial) 4 mg IVPUSH Q8H PRN PRN Reason: nausea/vomiting Last Admin: 07/03/21 00:09 Dose: 4 mg Documented by: LUKAS Oxycodone HCl (Oxycodone Hcl Immed Release 5 Mg Tablet) 5 mg PO Q4H PRN PRN Reason: severe pain Pharmacy Consult (Consult Rx Vancomycin Dosing) 1 each MISCELLANE DAILY PRN PRN Reason: Consult order Pharmacy Consult (Consult Rx Vancomycin Dosing) 1 each MISCELLANE DAILY PRN PRN Reason: Consult order Sodium Chloride (0.9 % Sodium Chloride Flush 3 Ml Syringe) 3 ml IVFLUSH QSHIFT [facility] Last Admin: 07/03/21 08:04 Dose: Not Given Documented by: CHRISTIANNE Non-Admin Reason: Off Unit: Surgery Labs CBC & Chem 7: 07/03/21 05:30 07/03/21 05:30 Labs: Laboratory Results - last 24 hr 07/02/21 07/02/21 07/03/21 16:56 20:50 02:51 MCV MCH MCHC RDW Plt Count MPV Absolute Nucleated RBC Nucleated RBC % (auto) Anion Gap Estim Creat Clear Calc Estimated GFR POC Glucose 160 H 166 H Random Glucose Calcium Vancomycin Trough 10.6 07/03/21 07/03/21 07/03/21 05:30 05:30 06:43 MCV 81.3 MCH 26.3 L MCHC 32.3 RDW 17.2 H Plt Count 375 MPV 9.7 Absolute Nucleated RBC 0.000 Nucleated RBC % (auto) 0.0 Anion Gap 12 Estim Creat Clear Calc 106.8 Estimated GFR > 60 POC Glucose 196 H Random Glucose 194 H Calcium 7.8 L Vancomycin Trough 07/03/21 11:21 MCV MCH MCHC RDW Plt Count MPV Absolute Nucleated RBC Nucleated RBC % (auto) Anion Gap Estim Creat Clear Calc Estimated GFR POC Glucose 244 H Random Glucose Calcium Vancomycin Trough Impressions Foot MRI 07/02/21 20:19 IMPRESSION: Plantar wound at the level of the fourth metatarsal head extends to the depth of the joint capsule. An elongated, gas-containing complex abscess is present in the plantar soft tissues around the plantar fascia, tracking proximally in the foot at the proximal border of the study. Additional soft tissue gas is present around the third MTP joints, also most pronounced at the fourth MTP joint. No evidence of osteomyelitis. Microbiology Microbiology Results: Microbiology 07/01/21 18:36 Blood Culture - Preliminary Blood - Venous No growth after 24 hours. 07/01/21 18:36 Blood Culture - Preliminary Blood - Venous No growth after 24 hours. Assessment and Plan (1) Diabetic foot ulcer: Status: Acute (2) Cellulitis of foot: Status: Acute (3) Sepsis: Status: Acute Assessment and Plan: hospital d#4 50yo M with DM2, PAD, hx amputation of R 4th toe due to osteomyelitis admitted with severe sepsis due to rapid development of infected necrotic ulcers on L 4th foot, necrotic bone on aspirate from wound clinic found to have L SFA occlusion with soft plaque concerning for embolic event # severe sepsis # DM foot infection/osteomyelitis/abscess # peripheral arterial disease - not bacteremic - s/p L SFA atherectomy/stenting today - embolic workup: will place on site monitor and obtain TTE. in meanwhile, full-dose anticoagulation with LMWH 1 mg/kg x 2 doses today; hold tomorrow due to OR; resume postop - NPO after midnight for operative intervention- will need TMTA or even BKA - vanco + pip/adalberto d#4; ID following. not bacteremic. - oxycodone prn pain control; declines morphine # prerenal ALEKSANDR - resolved p IV fluid hydration, SCr now normal # iron deficiency anemia - will need iron replacement once infection under control; T+S active; check FOBT # DM2, A1c 8.5 - basal/bolus insulin # HTN - continue lisinopril # HLD - statin # VTE ppx - LMWH Quality Stroke Does the patient have a stroke diagnosis?: No VTE Prior VTE?: No VTE Risk Level:: Medical - moderate - high VTE Device Contraindication: Treatment Not Tolerated VTE Drug Contraindication: N/A - Med Ordered
[2021-07-03] MEDS: Acetaminophen 325 MG TABLET 650 MG PO (12:37)
[2021-07-03] MEDS: oxyCODONE HCl Immed Release 5 MG TABLET PO (12:37)
[2021-07-03 16:42] LABS: Glucose, Whole Blood 234 mg/dL (60-115)
[2021-07-03] MEDS: Insulin Glargine,Hum.rec.anlog 100 UNIT/ML 10 ML VIAL 20 UNIT SUBCUT (20:48)
[2021-07-03 21:26] LABS: Glucose, Whole Blood 264 mg/dL (60-115)
[2021-07-04] VITALS (12 sets, daily range): BP systolic 118–177; BP diastolic 77–95; PULSE 83–103; RESP 16–20; TEMP 36.6–37.3; O2SAT 90–100
[2021-07-04] MEDS: Acetaminophen 325 MG TABLET 650 MG PO (00:17)
[2021-07-04] MEDS: 0.9 % Sodium Chloride Flush 3 ML SYRINGE IVFLUSH ×4 (00:21→21:01)
[2021-07-04] MEDS: Piperacillin Sodium/Tazobactam 3.375 GM in 0.9 % Sodium Chloride 50 ML IV ×4 (02:58→21:00)
[2021-07-04 04:31] LABS: Vancomycin Trough 15.5 mcg/mL (10.0-20.0)
[2021-07-04] MEDS: vancomycin HCL 1,250 MG in 0.9 % Sodium Chloride 250 ML 166.67 MG IV ×3 (04:50→21:41)
[2021-07-04 07:45] LABS: Glucose, Whole Blood 150 mg/dL (60-115)
[2021-07-04 08:13] LABS: Hematocrit 23.8 % (42-52); Hemoglobin 7.9 g/dl (14.0-18.0); Mean Corpuscular HGB Conc 33.2 g/dl (31.0-36.0); Mean Corpuscular Hemoglobin 27.1 pg (27.0-33.0); Mean Corpuscular Volume 81.5 fL (80-98); Mean Platelet Volume 10.2 fL (9.4-12.4); Platelet Count 369 X10*3/uL (160-400); Red Blood Count 2.92 X10*6/uL (4.60-5.80); Red Cell Distribution Width 17.5 % (11.0-16.0)
[2021-07-04 08:27] LABS: Anion Gap 17 (12-20); Blood Urea Nitrogen 6 mg/dL (9-16); Calcium 7.9 mg/dL (8.4-10.2); Carbon Dioxide 24 mmol/L (22-29); Chloride 102 mmol/L (96-108); Creatinine Clr Calc Pharmacy 99.9; Estimated Glomerular Filt Rate > 60; Glucose Random 162 mg/dL (60-115); Potassium 3.5 mmol/L (3.3-5.1); Sodium 139 mmol/L (135-145)
[2021-07-04] MEDS: Atorvastatin Calcium 40 MG TABLET PO (08:34)
[2021-07-04] MEDS: lisinopriL 5 MG TABLET PO (08:34)
[2021-07-04] MEDS: Insulin Glargine,Hum.rec.anlog 100 UNIT/ML 10 ML VIAL 20 UNIT SUBCUT ×2 (08:38→21:00)
[2021-07-04] MEDS: Insulin Lispro 100 UNIT/ML 3 ML VIAL SUBCUT ×3 (08:38→20:59)
--- NOTE | 2021-07-04 09:35 | P.PNVS_ITS ---
Subjective Subjective Date of Service: 07/04/21 Patient reports: no new complaints and feels better Interval history: Patient seen and examined. No significant events overnight after angiogram. He states his left leg feels significantly better this morning. No interval issues. He is undergoing echo this morning. Left lower extremity is quite tender and painful for him. Physical Exam Vital Signs: Vital Signs: Last Vital Signs Temp 98.4 F 07/04/21 07:21 Pulse 86 07/04/21 08:34 Resp 18 07/04/21 07:21 BP 177/95 H 07/04/21 08:34 Pulse Ox 90 L 07/04/21 07:21 Body Mass Index 30.7 Const: General: cooperative, healthy appearing and no acute distress Orientation/consciousness: oriented to person, oriented to place and oriented to time HENMT: Head: Yes normal to inspection Neck: Carotids: no bruits Chest: Chest palpation & inspection: normal inspection of the chest Resp: Effort & Inspection: normal respiratory effort and able to speak in complete sentences Auscultation: clear to auscultation bilaterally Cardio: Rate: regular rate Heart sounds: S1 normal heart sound present and S2 normal heart sound present GI: Inspection: Yes normal to inspection Skin: Other: Left foot gangrenous 4th toe, ulcer on the plantar aspect probing all the way to bone General skin exam: no rashes or lesions noted Wounds: wounds noted (Left leg) Neuro: General: oriented to person, oriented to place, oriented to time and CN's II-XI intact bilaterally Extrem: General: Yes normal to inspection, Yes full ROM and Yes no clubbing, cyanosis or edema Psych: Appearance: grossly normal and well kempt Speech and movement: Normal speech and movement present Affect: normal affect Progress Note: A&P Assessment and plan (1) Diabetic foot ulcer: Status: Acute Assessment and Plan: In short patient has peripheral vascular disease with a diabetic foot ulcer. He will require left foot transmetatarsal amputation. Risks benefits complications were discussed in detail with the patient. He demonstrated a clear understanding. This was discussed with the hospitalist team. We will schedule as soon as possible. Thank you for allowing us to assist in his care. If there are any questions or concerns please do not hesitate to contact us. Fall Risk Details Current Medications: Current Medications Acetaminophen (Acetaminophen 325 Mg Tablet) 650 mg PO Q4H PRN PRN Reason: pain/fever Last Admin: 07/04/21 00:17 Dose: 650 mg Documented by: Al Hydroxide/Mg Hydroxide (Magnesium Hydrox/Alum Hydrox 30 Ml Oral.Susp) 30 ml PO Q4H PRN PRN Reason: Heartburn/Nausea Last Admin: 07/01/21 15:02 Dose: 30 ml Documented by: Atorvastatin Calcium (Atorvastatin Calcium 40 Mg Tablet) 40 mg PO DAILY [facility] Last Admin: 07/04/21 08:34 Dose: 40 mg Documented by: Piperacillin Sod/Tazobactam (Sod 3.375 gm/ Sodium Chloride) 50 mls @ 100 mls/hr IV Q6H [facility] Last Infusion: 07/04/21 09:20 Dose: Infused Documented by: Vancomycin HCl 1,250 mg/ (Sodium Chloride) 250 mls @ 166.667 mls/hr IV Q8H [facility] Last Infusion: 07/04/21 06:26 Dose: Infused Documented by: Insulin Glargine (Insulin Glargine,Hum.Rec.Anlog 100 Unit/Ml 10 Ml Vial) 20 unit SUBCUT BID [facility] Last Admin: 07/04/21 08:38 Dose: 20 unit Documented by: Insulin Human Lispro (Insulin Lispro 100 Unit/Ml 3 Ml Vial) 0 unit SUBCUT QIDACHS [facility]; Protocol Last Admin: 07/04/21 08:38 Dose: 2 unit Documented by: Lisinopril (Lisinopril 5 Mg Tablet) 5 mg PO DAILY [facility]; Protocol Last Admin: 07/04/21 08:34 Dose: 5 mg Documented by: Melatonin (Melatonin 3 Mg Tablet) 6 mg PO BEDTIME PRN PRN Reason: Insomnia Morphine Sulfate (Morphine Sulfate 4 Mg/Ml Cartridge) 3 mg IVPUSH Q4H PRN; Protocol PRN Reason: Pain, Severe (Pain Scale 7-10) Ondansetron HCl (Ondansetron Hcl 4 Mg/2 Ml Vial) 4 mg IVPUSH Q8H PRN PRN Reason: nausea/vomiting Last Admin: 07/03/21 19:42 Dose: 4 mg Documented by: Oxycodone HCl (Oxycodone Hcl Immed Release 5 Mg Tablet) 5 mg PO Q4H PRN PRN Reason: severe pain Last Admin: 07/03/21 12:37 Dose: 5 mg Documented by: Pharmacy Consult (Consult Rx Vancomycin Dosing) 1 each MISCELLANE DAILY PRN PRN Reason: Consult order Pharmacy Consult (Consult Rx Vancomycin Dosing) 1 each MISCELLANE DAILY PRN PRN Reason: Consult order Sodium Chloride (0.9 % Sodium Chloride Flush 3 Ml Syringe) 3 ml IVFLUSH QSHIFT [facility] Last Admin: 07/04/21 08:36 Dose: 3 ml Documented by: Time Spent With Patient Time: Total time spent is greater than 50% in coordination of care (as documented) at patient's floor/unit and/or counseling patient: Time with patient: 15 - 24 minutes Procedures Date of Service Date of Service: 07/04/21 Quality Stroke Does the patient have a stroke diagnosis?: No VTE Prior VTE?: No VTE Risk Level:: Medical - moderate - high VTE Device Contraindication: Treatment Not Tolerated VTE Drug Contraindication: N/A - Med Ordered
--- NOTE | 2021-07-04 09:38 | MHC.SHP ---
Pre-Procedural Eval Section A Date of Service: 07/04/21 The patient is an INPATIENT: Yes The History & Physical has been completed within 30 days and I have reviewed it.: Yes Section B Chief Complaint: Diabetic foot ulcer, concern for osteomylitis Allergies: Allergies Allergy/AdvReac Type Severity Reaction Status Date / Time No Known Allergies Allergy Verified 02/26/21 13:01 Plan I have reviewed the history and physical and performed a pertinent physical examination on my patient. No changes have occurred unless specified.
--- NOTE | 2021-07-04 11:32 | MHC.CM.PN ---
CM met with Patient's /Iris at [phone], who indicated that Patient has used up all his [employer] benefit. A referral has been made to [facility] [place] [employer] to assist with [facility]. CM will follow.
--- NOTE | 2021-07-04 12:03 | HO.ANESPROP2 ---
HPI - Anesthesia Eval Consult details Narrative: 50-year-old male with a history of diabetic foot ulcers and peripheral artery disease presenting for transmetatarsal amputation. Reports nausea, most recent vomiting about 2 hours ago. [facility] Active Problems Active Problems: All Active Problems (Updated 06/30/21 @ 04:22 by Trenton Neal MD) Diabetic foot ulcer (Acute) Cellulitis of foot (Acute) Sepsis (Acute) Hyperglycemia (Acute) Bacteremia (Acute) Hypertension (Acute) PAD (peripheral artery disease) (Acute) Past Medical History Medical History Diabetes Diabetic foot ulcer Gangrene of toe of left foot GERD (gastroesophageal reflux disease) History of angiography PAD (peripheral artery disease) PICC (peripherally inserted central catheter) in place Family History Family History Other Diabetes Family history of problems with anesthesia: No Surgical History Surgical History Amputated toe of right foot (11/05/20) History of Problems with Anesthesia: No (Just conscious sedation for angioplasty) Social History Social History Household Members: Significant Other and Other Housing: House Do you presently have visiting nurse or other home services: No Alcohol intake: never Patient Tobacco Use Status: Current everyday Tobacco user Tobacco use type: Cigarette Cigarettes Per Day: 10 Years Smoked: 15 Smoked in Last 30 Days: Yes Patient Interested in Nicotine Replacement: No Patient Given Instructions on How to Stop Smoking: No Second Hand Smoke Exposure: No Use of substances other than those prescribed or required for medical reasons: No Currently Displaying Signs/Symptoms of Drug Intoxication Withdrawal: No Have you been hit, kicked, punched, or otherwise hurt by someone within the past year? If so, by whom?: No Do you feel safe in your current relationship?: Yes Is there a partner from a previous relationship who is making you feel unsafe now?: No Are you made to feel afraid or neglected: No Are you DNR?: No Advance Directives: No Advance Directives Information Provided: Yes Do you have thoughts of harming others: None Do you have a plan to hurt others: No Plan Recently lost weight without trying: No Eating poorly because of decreased appetite: No Nutrition Risks: No Nutritional Risk Poor oral hygiene: No service: No Current occupational status: employed Meds Allergies Allergy/AdvReac Type Severity Reaction Status Date / Time No Known Allergies Allergy Verified 02/26/21 13:01 Active Medications: Current Medications Acetaminophen (Acetaminophen 325 Mg Tablet) 650 mg PO Q4H PRN PRN Reason: pain/fever Last Admin: 07/04/21 00:17 Dose: 650 mg Documented by: Al Hydroxide/Mg Hydroxide (Magnesium Hydrox/Alum Hydrox 30 Ml Oral.Susp) 30 ml PO Q4H PRN PRN Reason: Heartburn/Nausea Last Admin: 07/01/21 15:02 Dose: 30 ml Documented by: Atorvastatin Calcium (Atorvastatin Calcium 40 Mg Tablet) 40 mg PO DAILY [facility] Last Admin: 07/04/21 08:34 Dose: 40 mg Documented by: Piperacillin Sod/Tazobactam (Sod 3.375 gm/ Sodium Chloride) 50 mls @ 100 mls/hr IV Q6H [facility] Last Infusion: 07/04/21 09:20 Dose: Infused Documented by: Vancomycin HCl 1,250 mg/ (Sodium Chloride) 250 mls @ 166.667 mls/hr IV Q8H [facility] Last Infusion: 07/04/21 06:26 Dose: Infused Documented by: Insulin Glargine (Insulin Glargine,Hum.Rec.Anlog 100 Unit/Ml 10 Ml Vial) 20 unit SUBCUT BID [facility] Last Admin: 07/04/21 08:38 Dose: 20 unit Documented by: Insulin Human Lispro (Insulin Lispro 100 Unit/Ml 3 Ml Vial) 0 unit SUBCUT QIDACHS [facility]; Protocol Last Admin: 07/04/21 08:38 Dose: 2 unit Documented by: Lisinopril (Lisinopril 5 Mg Tablet) 5 mg PO DAILY [facility]; Protocol Last Admin: 07/04/21 08:34 Dose: 5 mg Documented by: Melatonin (Melatonin 3 Mg Tablet) 6 mg PO BEDTIME PRN PRN Reason: Insomnia Morphine Sulfate (Morphine Sulfate 4 Mg/Ml Cartridge) 3 mg IVPUSH Q4H PRN; Protocol PRN Reason: Pain, Severe (Pain Scale 7-10) Ondansetron HCl (Ondansetron Hcl 4 Mg/2 Ml Vial) 4 mg IVPUSH Q8H PRN PRN Reason: nausea/vomiting Last Admin: 07/03/21 19:42 Dose: 4 mg Documented by: Oxycodone HCl (Oxycodone Hcl Immed Release 5 Mg Tablet) 5 mg PO Q4H PRN PRN Reason: severe pain Last Admin: 07/03/21 12:37 Dose: 5 mg Documented by: Pharmacy Consult (Consult Rx Vancomycin Dosing) 1 each MISCELLANE DAILY PRN PRN Reason: Consult order Pharmacy Consult (Consult Rx Vancomycin Dosing) 1 each MISCELLANE DAILY PRN PRN Reason: Consult order Sodium Chloride (0.9 % Sodium Chloride Flush 3 Ml Syringe) 3 ml IVFLUSH [facility] Last Admin: 07/04/21 08:36 Dose: 3 ml Documented by: Home Medications Medication Instructions Recorded Confirmed Last Taken Type metformin 1,000 mg tablet 1 tab PO BID 10/31/20 06/30/21 Unknown History blood sugar diagnostic #10 ea 11/20/20 06/30/21 Unknown History lisinopril 5 mg tablet 5 mg PO DAILY 11/20/20 06/30/21 Unknown History pen needle, diabetic 32 gauge x #50 ea 11/20/20 06/30/21 Unknown History atorvastatin 40 mg tablet 1 tab PO DAILY 06/30/21 06/30/21 Unknown History insulin glargine 100 unit/mL (3 15 unit SUBCUT BID 06/30/21 06/30/21 Unknown History mL) subcutaneous pen (Basaglar KwikPen U-100 Insulin) Exam Exam Date and Time: July 04, 2021 1203 Height,Weight and Vital Signs: Height 5 ft 6 in Weight 190 lb Last Vital Signs Temp 99.2 F 07/04/21 11:49 Pulse 97 07/04/21 11:49 Resp 16 07/04/21 11:49 BP 175/83 H 07/04/21 11:49 Pulse Ox 95 07/04/21 11:49 Pertinent Lab Results Pertinent Lab Results: Laboratory Tests 06/30/21 06/30/21 06/30/21 02:15 02:17 02:17 WBC 22.5 H RBC 3.62 L Hgb 9.9 L Hct 30.1 L MCV 83.1 MCH 27.3 MCHC 32.9 RDW 16.9 H Plt Count 420 H MPV 9.1 L Immature Gran % (Auto) 1.0 H Neut % (Auto) 82.8 H Lymph % (Auto) 5.7 L [place] % (Auto) 10.3 Eos % (Auto) 0.1 Baso % (Auto) 0.1 Lymph # (Auto) 1.3 [place] # (Auto) 2.3 H Eos # (Auto) 0.0 Baso # (Auto) 0.0 Abs Immat Gran (auto) 0.22 H Absolute Neuts (auto) 18.6 H Absolute Nucleated RBC 0.000 Nucleated RBC % (auto) 0.0 Smear Tech's Comments VERIFIED ESR Absolute Retic Percent Retic Immature Retic Fraction Retic Hgb Equivalent PT INR APTT Sodium 131 L Potassium 4.1 Chloride 93 L Carbon Dioxide 24 Anion Gap 18 BUN 21 H D Creatinine 1.59 H Estim Creat Clear Calc 58.4 Estimated GFR 47 POC Glucose Random Glucose 531 H* Lactic Acid 1.4 Calcium 9.7 D Iron TIBC % Saturation Unsat Iron Binding Ferritin Total Bilirubin 0.6 AST 12 ALT 10 Alkaline Phosphatase 121 H D Lactate Dehydrogenase C-Reactive Protein 38.07 H Total Protein 8.2 H D Albumin 4.1 Vitamin B12 Folate Vancomycin Trough Acetone, Qual Negative COVID-19 (DELIA) COVID-19 [facility] Com Blood Type Antibody Screen 06/30/21 06/30/21 06/30/21 02:17 03:25 04:56 WBC RBC Hgb Hct MCV MCH MCHC RDW Plt Count MPV Immature Gran % (Auto) Neut % (Auto) Lymph % (Auto) [place] % (Auto) Eos % (Auto) Baso % (Auto) Lymph # (Auto) [place] # (Auto) Eos # (Auto) Baso # (Auto) Abs Immat Gran (auto) Absolute Neuts (auto) Absolute Nucleated RBC Nucleated RBC % (auto) Smear Tech's Comments ESR 104 H Absolute Retic Percent Retic Immature Retic Fraction Retic Hgb Equivalent PT INR APTT Sodium Potassium Chloride Carbon Dioxide Anion Gap BUN Creatinine 1.11 Estim Creat Clear Calc 83.7 Estimated GFR > 60 POC Glucose Random Glucose Lactic Acid Calcium Iron TIBC % Saturation Unsat Iron Binding Ferritin Total Bilirubin AST ALT Alkaline Phosphatase Lactate Dehydrogenase C-Reactive Protein Total Protein Albumin Vitamin B12 Folate Vancomycin Trough Acetone, Qual COVID-19 (DELIA) Negative COVID-19 Clin Com See Note Blood Type Antibody Screen 06/30/21 06/30/21 06/30/21 09:06 13:30 16:30 WBC RBC Hgb Hct MCV MCH MCHC RDW Plt Count MPV Immature Gran % (Auto) Neut % (Auto) Lymph % (Auto) [place] % (Auto) Eos % (Auto) Baso % (Auto) Lymph # (Auto) [place] # (Auto) Eos # (Auto) Baso # (Auto) Abs Immat Gran (auto) Absolute Neuts (auto) Absolute Nucleated RBC Nucleated RBC % (auto) Smear Tech's Comments ESR Absolute Retic Percent Retic Immature Retic Fraction Retic Hgb Equivalent PT INR APTT Sodium Potassium Chloride Carbon Dioxide Anion Gap BUN Creatinine Estim Creat Clear Calc Estimated GFR POC Glucose 321 H 313 H 344 H Random Glucose Lactic Acid Calcium Iron TIBC % Saturation Unsat Iron Binding Ferritin Total Bilirubin AST ALT Alkaline Phosphatase Lactate Dehydrogenase C-Reactive Protein Total Protein Albumin Vitamin B12 Folate Vancomycin Trough Acetone, Qual COVID-19 (DELIA) COVID-19 [employer] Blood Type Antibody Screen 06/30/21 07/01/21 07/01/21 20:37 05:29 05:29 WBC 18.9 H RBC 2.86 L D Hgb 7.8 L D Hct 23.5 L D MCV 82.2 MCH 27.3 MCHC 33.2 RDW 16.9 H Plt Count 348 MPV 9.7 Immature Gran % (Auto) Neut % (Auto) Lymph % (Auto) [place] % (Auto) Eos % (Auto) Baso % (Auto) Lymph # (Auto) [place] # (Auto) Eos # (Auto) Baso # (Auto) Abs Immat Gran (auto) Absolute Neuts (auto) Absolute Nucleated RBC 0.000 Nucleated RBC % (auto) 0.0 Smear Tech's Comments ESR Absolute Retic 0.028 Percent Retic 1.0 Immature Retic Fraction 16.8 H Retic Hgb Equivalent 24.2 L PT INR APTT Sodium 133 L Potassium 3.6 Chloride 103 Carbon Dioxide 21 L Anion Gap 13 BUN 10 D Creatinine 0.83 Estim Creat Clear Calc 112.0 Estimated GFR > 60 POC Glucose 306 H Random Glucose 282 H D Lactic Acid Calcium 7.7 L D Iron 8 L TIBC 220 L % Saturation 4 L Unsat Iron Binding 212 Ferritin 150 Total Bilirubin AST ALT Alkaline Phosphatase Lactate Dehydrogenase 169 C-Reactive Protein Total Protein Albumin Vitamin B12 Folate Vancomycin Trough Acetone, Qual COVID-19 (DELIA) [employer] Blood Type Antibody Screen 07/01/21 07/01/21 07/01/21 05:29 07:16 11:21 WBC RBC Hgb Hct MCV MCH MCHC RDW Plt Count MPV Immature Gran % (Auto) Neut % (Auto) Lymph % (Auto) [place] % (Auto) Eos % (Auto) Baso % (Auto) Lymph # (Auto) [place] # (Auto) Eos # (Auto) Baso # (Auto) Abs Immat Gran (auto) Absolute Neuts (auto) Absolute Nucleated RBC Nucleated RBC % (auto) Smear Tech's Comments ESR Absolute Retic Percent Retic Immature Retic Fraction Retic Hgb Equivalent PT INR APTT Sodium Potassium Chloride Carbon Dioxide Anion Gap BUN Creatinine Estim Creat Clear Calc Estimated GFR POC Glucose 258 H 275 H Random Glucose Lactic Acid Calcium Iron TIBC % Saturation Unsat Iron Binding Ferritin Total Bilirubin AST ALT Alkaline Phosphatase Lactate Dehydrogenase C-Reactive Protein Total Protein Albumin Vitamin B12 425 Folate 7.8 Vancomycin Trough Acetone, Qual COVID-19 (DELIA) [facility] Blood Type Antibody Screen 07/01/21 07/01/21 07/01/21 13:51 16:11 18:06 WBC RBC Hgb Hct MCV MCH MCHC RDW Plt Count MPV Immature Gran % (Auto) Neut % (Auto) Lymph % (Auto) [place] % (Auto) Eos % (Auto) Baso % (Auto) Lymph # (Auto) [place] # (Auto) Eos # (Auto) Baso # (Auto) Abs Immat Gran (auto) Absolute Neuts (auto) Absolute Nucleated RBC Nucleated RBC % (auto) Smear Tech's Comments ESR Absolute Retic Percent Retic Immature Retic Fraction Retic Hgb Equivalent PT INR APTT Sodium Potassium Chloride Carbon Dioxide Anion Gap BUN Creatinine Estim Creat Clear Calc Estimated GFR POC Glucose 234 H 220 H Random Glucose Lactic Acid Calcium Iron TIBC % Saturation Unsat Iron Binding Ferritin Total Bilirubin AST ALT Alkaline Phosphatase Lactate Dehydrogenase C-Reactive Protein Total Protein Albumin Vitamin B12 Folate Vancomycin Trough 5.7 L Acetone, Qual COVID-19 (DELIA) IND [employer] Blood Type Antibody Screen 07/01/21 07/02/21 07/02/21 19:45 06:14 06:14 WBC 19.9 H RBC 2.92 L Hgb 7.8 L Hct 23.9 L MCV 81.8 MCH 26.7 L MCHC 32.6 RDW 17.1 H Plt Count 380 MPV 9.8 Immature Gran % (Auto) Neut % (Auto) Lymph % (Auto) [place] % (Auto) Eos % (Auto) Baso % (Auto) Lymph # (Auto) [place] # (Auto) Eos # (Auto) Baso # (Auto) Abs Immat Gran (auto) Absolute Neuts (auto) Absolute Nucleated RBC 0.000 Nucleated RBC % (auto) 0.0 Smear Tech's Comments ESR Absolute Retic Percent Retic Immature Retic Fraction Retic Hgb Equivalent PT INR APTT Sodium 134 L Potassium 3.4 Chloride 103 Carbon Dioxide 22 Anion Gap 12 BUN 7 L Creatinine 0.89 Estim Creat Clear Calc 104.4 Estimated GFR > 60 POC Glucose 223 H Random Glucose 196 H Lactic Acid Calcium 7.6 L Iron TIBC % Saturation Unsat Iron Binding Ferritin Total Bilirubin AST ALT Alkaline Phosphatase Lactate Dehydrogenase C-Reactive Protein Total Protein Albumin Vitamin B12 Folate Vancomycin Trough Acetone, Qual COVID-19 (DELIA) [employer] Blood Type Antibody Screen 07/02/21 07/02/21 07/02/21 06:14 07:01 09:30 WBC RBC Hgb Hct MCV MCH MCHC RDW Plt Count MPV Immature Gran % (Auto) Neut % (Auto) Lymph % (Auto) [place] % (Auto) Eos % (Auto) Baso % (Auto) Lymph # (Auto) [place] # (Auto) Eos # (Auto) Baso # (Auto) Abs Immat Gran (auto) Absolute Neuts (auto) Absolute Nucleated RBC Nucleated RBC % (auto) Smear Tech's Comments ESR Absolute Retic Percent Retic Immature Retic Fraction Retic Hgb Equivalent PT 14.9 H INR 1.3 H APTT 35.3 Sodium Potassium Chloride Carbon Dioxide Anion Gap BUN Creatinine Estim Creat Clear Calc Estimated GFR POC Glucose 197 H Random Glucose Lactic Acid Calcium Iron TIBC % Saturation Unsat Iron Binding Ferritin Total Bilirubin AST ALT Alkaline Phosphatase Lactate Dehydrogenase C-Reactive Protein Total Protein Albumin Vitamin B12 Folate Vancomycin Trough Acetone, Qual COVID-19 (DELIA) COVID-19 [employer] Blood Type A Positive Antibody Screen NEGATIVE 07/02/21 07/02/21 07/02/21 11:28 16:56 20:50 WBC RBC Hgb Hct MCV MCH MCHC RDW Plt Count MPV Immature Gran % (Auto) Neut % (Auto) Lymph % (Auto) [place] % (Auto) Eos % (Auto) Baso % (Auto) Lymph # (Auto) [place] # (Auto) Eos # (Auto) Baso # (Auto) Abs Immat Gran (auto) Absolute Neuts (auto) Absolute Nucleated RBC Nucleated RBC % (auto) Smear Tech's Comments ESR Absolute Retic Percent Retic Immature Retic Fraction Retic Hgb Equivalent PT INR APTT Sodium Potassium Chloride Carbon Dioxide Anion Gap BUN Creatinine Estim Creat Clear Calc Estimated GFR POC Glucose 227 H 160 H 166 H Random Glucose Lactic Acid Calcium Iron TIBC % Saturation Unsat Iron Binding Ferritin Total Bilirubin AST ALT Alkaline Phosphatase Lactate Dehydrogenase C-Reactive Protein Total Protein Albumin Vitamin B12 Folate Vancomycin Trough Acetone, Qual COVID-19 (DELIA) [employer] Blood Type Antibody Screen 07/03/21 07/03/21 07/03/21 02:51 05:30 05:30 WBC 22.4 H RBC 2.89 L Hgb 7.6 L Hct 23.5 L MCV 81.3 MCH 26.3 L MCHC 32.3 RDW 17.2 H Plt Count 375 MPV 9.7 Immature Gran % (Auto) Neut % (Auto) Lymph % (Auto) [place] % (Auto) Eos % (Auto) Baso % (Auto) Lymph # (Auto) [place] # (Auto) Eos # (Auto) Baso # (Auto) Abs Immat Gran (auto) Absolute Neuts (auto) Absolute Nucleated RBC 0.000 Nucleated RBC % (auto) 0.0 Smear Tech's Comments ESR Absolute Retic Percent Retic Immature Retic Fraction Retic Hgb Equivalent PT INR APTT Sodium 136 Potassium 3.3 Chloride 101 Carbon Dioxide 26 Anion Gap 12 BUN 5 L Creatinine 0.87 Estim Creat Clear Calc 106.8 Estimated GFR > 60 POC Glucose Random Glucose 194 H Lactic Acid Calcium 7.8 L Iron TIBC % Saturation Unsat Iron Binding Ferritin Total Bilirubin AST ALT Alkaline Phosphatase Lactate Dehydrogenase C-Reactive Protein Total Protein Albumin Vitamin B12 Folate Vancomycin Trough 10.6 Acetone, Qual COVID-19 (DELIA) COVID-19 [employer] Blood Type Antibody Screen 07/03/21 07/03/21 07/03/21 06:43 11:21 16:00 WBC RBC Hgb Hct MCV MCH MCHC RDW Plt Count MPV Immature Gran % (Auto) Neut % (Auto) Lymph % (Auto) [place] % (Auto) Eos % (Auto) Baso % (Auto) Lymph # (Auto) [place] # (Auto) Eos # (Auto) Baso # (Auto) Abs Immat Gran (auto) Absolute Neuts (auto) Absolute Nucleated RBC Nucleated RBC % (auto) Smear Tech's Comments ESR Absolute Retic Percent Retic Immature Retic Fraction Retic Hgb Equivalent PT INR APTT Sodium Potassium Chloride Carbon Dioxide Anion Gap BUN Creatinine Estim Creat Clear Calc Estimated GFR POC Glucose 196 H 244 H 234 H Random Glucose Lactic Acid Calcium Iron TIBC % Saturation Unsat Iron Binding Ferritin Total Bilirubin AST ALT Alkaline Phosphatase Lactate Dehydrogenase C-Reactive Protein Total Protein Albumin Vitamin B12 Folate Vancomycin Trough Acetone, Qual COVID-19 (DELIA) [employer] Blood Type Antibody Screen 07/03/21 07/04/21 07/04/21 20:44 03:59 07:18 WBC RBC Hgb Hct MCV MCH MCHC RDW Plt Count MPV Immature Gran % (Auto) Neut % (Auto) Lymph % (Auto) [place] % (Auto) Eos % (Auto) Baso % (Auto) Lymph # (Auto) [place] # (Auto) Eos # (Auto) Baso # (Auto) Abs Immat Gran (auto) Absolute Neuts (auto) Absolute Nucleated RBC Nucleated RBC % (auto) Smear Tech's Comments ESR Absolute Retic Percent Retic Immature Retic Fraction Retic Hgb Equivalent PT INR APTT Sodium Potassium Chloride Carbon Dioxide Anion Gap BUN Creatinine Estim Creat Clear Calc Estimated GFR POC Glucose 264 H 150 H Random Glucose Lactic Acid Calcium Iron TIBC % Saturation Unsat Iron Binding Ferritin Total Bilirubin AST ALT Alkaline Phosphatase Lactate Dehydrogenase C-Reactive Protein Total Protein Albumin Vitamin B12 Folate Vancomycin Trough 15.5 Acetone, Qual COVID-19 (DELIA) [employer] Blood Type Antibody Screen 07/04/21 07/04/21 07:48 07:49 WBC 21.0 H RBC 2.92 L Hgb 7.9 L Hct 23.8 L MCV 81.5 MCH 27.1 MCHC 33.2 RDW 17.5 H Plt Count 369 MPV 10.2 Immature Gran % (Auto) Neut % (Auto) Lymph % (Auto) [place] % (Auto) Eos % (Auto) Baso % (Auto) Lymph # (Auto) [place] # (Auto) Eos # (Auto) Baso # (Auto) Abs Immat Gran (auto) Absolute Neuts (auto) Absolute Nucleated RBC 0.000 Nucleated RBC % (auto) 0.0 Smear Tech's Comments ESR Absolute Retic Percent Retic Immature Retic Fraction Retic Hgb Equivalent PT INR APTT Sodium 139 Potassium 3.5 Chloride 102 Carbon Dioxide 24 Anion Gap 17 BUN 6 L Creatinine 0.93 Estim Creat Clear Calc 99.9 Estimated GFR > 60 POC Glucose Random Glucose 162 H Lactic Acid Calcium 7.9 L Iron TIBC % Saturation Unsat Iron Binding Ferritin Total Bilirubin AST ALT Alkaline Phosphatase Lactate Dehydrogenase C-Reactive Protein Total Protein Albumin Vitamin B12 Folate Vancomycin Trough Acetone, Qual COVID-19 (DELIA) COVID-19 Clin Com Blood Type Antibody Screen Airway Mallampati Class: II TM Dist: >3cm Neck ROM: Full Other: Tongue hyperemia due to unclear cause/?vomiting Assessment and Plan Assessment Anesthesia Assessment: Anesthesia Plan Discussed and Chart Reviewed Final Anesthetic Review Family History of Problems with Anesthesia: No History of Problems with Anesthesia: No (Just conscious sedation for angioplasty) NPO: Yes ASA Class: III and Emergency Final Preanesthetic Review: No Changes in Pt Med Stat, Meds/Allgs Chart Reviewed, Consent Obtained/Reviewed and Anes Risks/Benef Reviewed Patient Risk: High Procedure Risk: Low Anesthetic Plan Anesthetic Plan: GA (RSI with ETT) and Agree w/ Assess. and Plan Disposition: Standard PACU
[2021-07-04 12:10] LABS: Glucose, Whole Blood 153 mg/dL (60-115)
--- NOTE | 2021-07-04 13:31 | HO.PM.IMPN ---
Subjective Subjective Date of Service: 07/04/21 Interval History: Seen and examined this follow up For sepsis, DM foot infection Worried about having surgery No other specific complaints at this time. Review of Systems Review of Systems: Yes all other systems are reviewed and are negative Constitutional Constitutional: Denies chills and Denies fever(s) Cardiovascular Cardiovascular: Denies chest pain Respiratory Respiratory: Denies cough Gastrointestinal Gastrointestinal: Denies abdominal pain Physical Exam Vital Signs: Vital Signs: Last Vital Signs Temp 99.2 F 07/04/21 11:49 Pulse 97 07/04/21 11:49 Resp 16 07/04/21 11:49 BP 175/83 H 07/04/21 11:49 Pulse Ox 95 07/04/21 11:49 Body Mass Index 30.7 Const: General: no acute distress, alert, awake and ill appearing Nutritional Appearance: well nourished Orientation/consciousness: patient oriented x3 HENMT: Head: Yes normocephalic and Yes atraumatic Eyes: Sclerae: sclerae normal Chest: Chest palpation & inspection: normal inspection of the chest Resp: Effort & Inspection: normal respiratory effort and no respiratory distress Auscultation: clear to auscultation bilaterally Cardio: Rate: regular rate Rhythm: regular rhythm GI: Palpation (GI): Soft to palpation and nontender Neuro: General: patient oriented x3 Cranial nerves: Yes CN's II-XII intact bilaterally and Yes Bilaterally intact EOM present Extrem: Other: left foot wrapped in clean/dry/intact dressing Objective Data Active Medications Acetaminophen (Acetaminophen 325 Mg Tablet) 650 mg PO Q4H PRN PRN Reason: pain/fever Last Admin: 07/04/21 00:17 Dose: 650 mg Documented by: MELINDA Al Hydroxide/Mg Hydroxide (Magnesium Hydrox/Alum Hydrox 30 Ml Oral.Susp) 30 ml PO Q4H PRN PRN Reason: Heartburn/Nausea Last Admin: 07/01/21 15:02 Dose: 30 ml Documented by: MADINA Atorvastatin Calcium (Atorvastatin Calcium 40 Mg Tablet) 40 mg PO DAILY [facility] Last Admin: 07/04/21 08:34 Dose: 40 mg Documented by: VANDANA Hydromorphone HCl (Hydromorphone Hcl 0.5 Mg/0.5 Ml Syringe) 0.25 mg IVPUSH Q5M PRN; Protocol PRN Reason: Pain, Severe (Pain Scale 7-10) Piperacillin Sod/Tazobactam (Sod 3.375 gm/ Sodium Chloride) 50 mls @ 100 mls/hr IV Q6H [facility] Last Infusion: 07/04/21 09:20 Dose: 0 mls/hr Documented by: LYSZ Vancomycin HCl 1,250 mg/ (Sodium Chloride) 250 mls @ 166.667 mls/hr IV Q8H [facility] Last Infusion: 07/04/21 06:26 Dose: 0 mls/hr Documented by: MELINDA Promethazine HCl 12.5 mg/ (Sodium Chloride) 50.5 mls @ 202 mls/hr IV ONCE PRN PRN Reason: Nausea and Vomiting Insulin Glargine (Insulin Glargine,Hum.Rec.Anlog 100 Unit/Ml 10 Ml Vial) 20 unit SUBCUT BID [facility] Last Admin: 07/04/21 08:38 Dose: 20 unit Documented by: VANDANA Insulin Human Lispro (Insulin Lispro 100 Unit/Ml 3 Ml Vial) 0 unit SUBCUT QIDACHS [facility]; Protocol Last Admin: 07/04/21 12:30 Dose: Not Given Documented by: VANDANA Non-Admin Reason: Off Unit: Surgery Lisinopril (Lisinopril 5 Mg Tablet) 5 mg PO DAILY [facility]; Protocol Last Admin: 07/04/21 08:34 Dose: 5 mg Documented by: VANDANA Melatonin (Melatonin 3 Mg Tablet) 6 mg PO BEDTIME PRN PRN Reason: Insomnia Morphine Sulfate (Morphine Sulfate 4 Mg/Ml Cartridge) 3 mg IVPUSH Q4H PRN; Protocol PRN Reason: Pain, Severe (Pain Scale 7-10) Ondansetron HCl (Ondansetron Hcl 4 Mg/2 Ml Vial) 4 mg IVPUSH Q8H PRN PRN Reason: nausea/vomiting Last Admin: 07/03/21 19:42 Dose: 4 mg Documented by: SHAQUILLE Ondansetron HCl (Ondansetron Hcl 4 Mg/2 Ml Vial) 4 mg IVPUSH ONCE PRN PRN Reason: Nausea and Vomiting Oxycodone HCl (Oxycodone Hcl Immed Release 5 Mg Tablet) 5 mg PO Q4H PRN PRN Reason: severe pain Last Admin: 07/03/21 12:37 Dose: 5 mg Documented by: CHRISTIANNE Pharmacy Consult (Consult Rx Vancomycin Dosing) 1 each MISCELLANE DAILY PRN PRN Reason: Consult order Pharmacy Consult (Consult Rx Vancomycin Dosing) 1 each MISCELLANE DAILY PRN PRN Reason: Consult order Sodium Chloride (0.9 % Sodium Chloride Flush 3 Ml Syringe) 3 ml IVFLUSH QSHIFT [facility] Last Admin: 07/04/21 08:36 Dose: 3 ml Documented by: VANDANA Labs CBC & Chem 7: 07/04/21 07:49 07/04/21 07:48 Labs: Laboratory Results - last 24 hr 07/03/21 07/03/21 07/04/21 16:00 20:44 03:59 MCV MCH MCHC RDW Plt Count MPV Absolute Nucleated RBC Nucleated RBC % (auto) Anion Gap Estim Creat Clear Calc Estimated GFR POC Glucose 234 H 264 H Random Glucose Calcium Vancomycin Trough 15.5 07/04/21 07/04/21 07/04/21 07:18 07:48 07:49 MCV 81.5 MCH 27.1 MCHC 33.2 RDW 17.5 H Plt Count 369 MPV 10.2 Absolute Nucleated RBC 0.000 Nucleated RBC % (auto) 0.0 Anion Gap 17 Estim Creat Clear Calc 99.9 Estimated GFR > 60 POC Glucose 150 H Random Glucose 162 H Calcium 7.9 L Vancomycin Trough 07/04/21 11:47 MCV MCH MCHC RDW Plt Count MPV Absolute Nucleated RBC Nucleated RBC % (auto) Anion Gap Estim Creat Clear Calc Estimated GFR POC Glucose 153 H Random Glucose Calcium Vancomycin Trough Microbiology Microbiology Results: Microbiology 07/01/21 18:36 Blood Culture - Preliminary Blood - Venous No growth after 48 hours. 07/01/21 18:36 Blood Culture - Preliminary Blood - Venous No growth after 48 hours. Assessment and Plan (1) Diabetic foot ulcer: Status: Acute (2) Sepsis: Status: Acute (3) PAD (peripheral artery disease): Status: Acute Assessment and Plan: This is a 50yo M with DM2, PAD, hx amputation of R 4th toe due to osteomyelitis admitted with severe sepsis due to rapid development of infected necrotic ulcers on L 4th foot, necrotic bone on aspirate from wound clinic found to have L SFA occlusion with soft plaque concerning for embolic event severe sepsis DM foot infection/osteomyelitis/abscess peripheral arterial disease -BCx negative. persistent leukocytosis - s/p L SFA atherectomy/stenting 07/03 - found to have a left SFA occlusion with a soft plaque concerning for embolic event - embolic workup: pvc monitor and obtain TTE. in meanwhile, full-dose anticoagulation with LMWH 1 mg/kg x 2 doses today; resume tomorrow AM - plan for TMA today - continue vanco + pip/adalberto d#5; ID following - oxycodone prn pain control; declines morphine HTN Blood pressure uncontrolled -continue lisinopril -will add norvasc prerenal ALEKSANDR - resolved p IV fluid hydration, SCr now normal iron deficiency anemia - will need iron replacement once infection under control; T+S active; FOBT pending DM2, A1c 8.5 - basal/bolus insulin HLD - statin VTE ppx - LMWH Attending physician- Dr. morris Quality Stroke Does the patient have a stroke diagnosis?: No VTE Prior VTE?: No VTE Risk Level:: Medical - moderate - high VTE Device Contraindication: Treatment Not Tolerated VTE Drug Contraindication: N/A - Med Ordered
--- NOTE | 2021-07-04 13:39 | W.PM.OPN ---
Operative Note Operative Note Date of Service: 07/04/21 Narrative: Operative note by [facility] Preoperative diagnosis: Left foot diabetic ulceration Postoperative diagnosis: Same Procedure: Left transmetatarsal amputation Surgeon:Bebeto Hammer M.D. Public Health Internship: None Anesthesia: General Specimens: 1 Drains: None Estimated blood loss: Minimal Indications: 50-year-old gentleman with known diabetes. He had undergone endovascular intervention yesterday for SFA disease. He now presents for amputation. The patient has signed the informed consent after reviewing risks, complications, benefits, and alternatives previously discussed with the patient. The patient was given the opportunity to ask any additional questions or voice any concerns. All questions were answered to the patient's satisfaction. Procedure in detail: Patient was brought to the operating room prior to which a time-out was called for patient identification and site verification curvilinear incision was carried out over the dorsum of the foot and the plantar aspect a curvilinear incision was made as well creating a posterior flap skin incision was carried down through skin subcu tissue fat down to bone. Using electrocautery we were able to dissect and obtain hemostasis. Once we were through using a power saw we cut across all the metatarsals. Once this was accomplished we then created a posterior flap with electrocautery. There was a fair amount of purulent material encountered in the posterior aspect of the flap. This was all cleared out. The foot was then removed and passed off the table as specimen. We trimmed down the bone MH sure there was no sharp edges. We then raised the flap and reapproximated fascial layers using a 2 0 poly Sorb suture. Superficial layer with 3-0 poly sore. Finally skin with 2 0 nylon and skin clips. Xeroform and a sterile dressing were applied. At the end the case sponge instrument counts were correct. Patient tolerated the procedure well. Returned to recovery with stable vitals. This note is constructed using voice recognition software. While every effort has been made to ensure accuracy, senior business manager errors may have been included. Thank you for allowing me to participate in the care of your patient. Yours sincerely, Bebeto Hammer MD, FACS, R.P.V.I.
--- NOTE | 2021-07-04 14:12 | CA_ITS ---
Transthoracic Echocardiogram Patient (Last, First, Middle): Irving Barry, Gender: Male Date of : 1970 Age: 50 Procedure Date: 07/04/2021 Procedure Type: Transthoracic Echocardiogram Location: S3E Height: 167.64 cm Weight: 86.18 kg BSA: 1.96 m2 Heart Rate: bpm BP: 176 / 78 mmHg Fingerprint Technician: YR/CP Referring MD: Bee Suggs MD Symptoms: embolism to L foot Study Quality: Fair Conclusions: - Normal left ventricular size and systolic function. - There is severely increased left ventricular wall thickness. - E/E prime ratio is between 8 and 15 consistent with indeterminate filling pressures. - Normal right ventricular cavity size and systolic function. - The left atrium is severely dilated. - Moderate pulmonary hypertension is present. - There is moderate dilatation of the sinuses of Valsalva and mild dilatation of the ascending aorta. Findings Left Ventricle Normal left ventricular size and systolic function. There is severely increased left ventricular wall thickness. The visually estimated ejection fraction is between 60-65%. There is no evidence of regional wall motion abnormalities. Abnormal diastolic function is noted. Spectral Doppler is indicative of a pseudonormal filling pattern. E/E prime ratio is between 8 and 15 consistent with indeterminate filling pressures. Right Ventricle Normal right ventricular cavity size and systolic function. Atria The left atrium is severely dilated. The right atrium is normal in size. Aortic Valve The aortic valve structure and function is likely normal. There is no aortic valve stenosis. There is no aortic valve regurgitation. Mitral Valve There is mild anterior mitral leaflet thickening. There is trace mitral valve regurgitation. There is no mitral valve stenosis. Pulmonic Valve Normal pulmonic valve structure and function. There is trace to mild pulmonic valve regurgitation. Tricuspid Valve Normal tricuspid valve structure. There is mild tricuspid valve regurgitation. Normal right atrial pressure. Moderate pulmonary hypertension is present. Great Vessels There is moderate dilatation of the sinuses of Valsalva and mild dilatation of the ascending aorta. The visualized portions of the pulmonary artery and branches are normal. Venous The inferior vena cava is normal in size and collapses greater than 50% with inspiration. Pericardium/Pleural There is no evidence of pericardial effusion. Prior Study Comparison No prior study available for comparison. Measurements 2D Linear Measurements IVSd: 1.54 0.6-0.9/0.6-1.0 cm LVIDd: 3.63 3.9-5.3/4.2-5.9 cm LVIDd Index: 1.85 2.4-3.2/2.2-3.1 cm/m2 LVIDs: 2.75 2.0-3.6 cm LVPWd: 1.50 0.7-1.1 cm Ao Root: 4.50 2.1-3.5 cm LA Diam: 3.90 2.7-3.8/3.0-4.0 cm LAIDs Index: 1.99 1.5-2.3 cm/m2 LV Mass: 258.87 67-162/88-224 g LV Mass Index: 132.07 43-95/49-115 g/m2 LVOT Diam: 2.10 3.0+(-)1.3 cm Mitral Valve MV Pk E: 1.31 MV PK A: 0.91 MV Decel Time: 164.00 E/A: 1.40 E'Lateral: 16.00 E'Medial: 7.83 E/E' Med: 16.70 E/E' Lat: 8.20 PHT: 48.00 MVA PHT: 4.58 Decel Toombs: 8.02 Aortic Valve AoV Pk Ulysses: 1.57 AoV Mn Ulysses: 1.07 AoV VTI: 0.29 AoV Pk Grad: 10.00 Aov Mn Grad: 5.00 KRUPA Cont.VTI: 2.47 LVOT LVOT Pk Ulysses: 0.97 LVOT Mn Ulysses: 0.75 LVOT VTI: 0.21 LVOT Pk Grad: 4.00 LVOT Mn Grad: 2.00 LVOT Diam: 2.10 LVOT Area: 3.46 Diastolic Function MV Pk E: 1.31 MV Pk A: 0.91 E/A: 1.40 E'Medial: 7.83 E/E' Med: 16.70 E' Laterial: 16.00 E/E' Lat: 8.20 Right Ventricle TAPSE (mm): 2.19 Tricuspid Valve TR Pk Ulysses: 3.44 TR Pk Grad: 47.00 RA Press: 3.00 RVSP: 50.00 Great Vessels Aorta Ao Root-2D: 4.50 2.0-3.7 cm Sinus of Valsalva: 4.50 2.0-3.5 cm Ao Asc: 3.70 2.1-3.4 cm Updated in Other Vendor System with Status of Final Kd Pichardo MD electronically signed on 07/04/2021 2:37:04 PM with status of Final
[2021-07-04] MEDS: amLODIPine Besylate 5 MG TABLET PO (15:20)
[2021-07-04 16:36] LABS: Glucose, Whole Blood 189 mg/dL (60-115)
[2021-07-04 21:29] LABS: Glucose, Whole Blood 196 mg/dL (60-115)
[2021-07-05] VITALS (17 sets, daily range): BP systolic 124–177; BP diastolic 70–97; PULSE 74–98; RESP 16–20; TEMP 36.8–38.1; O2SAT 93–97
[2021-07-05] MEDS: Piperacillin Sodium/Tazobactam 3.375 GM in 0.9 % Sodium Chloride 50 ML IV ×4 (02:39→20:39)
[2021-07-05] MEDS: ondansetron HCL 4 MG/2 ML VIAL IVPUSH (02:43)
[2021-07-05 04:15] LABS: Mean Corpuscular HGB Conc 32.8 g/dl (31.0-36.0); Mean Corpuscular Hemoglobin 26.7 pg (27.0-33.0); Mean Corpuscular Volume 81.3 fL (80-98); Mean Platelet Volume 9.4 fL (9.4-12.4); Platelet Count 366 X10*3/uL (160-400); Red Blood Count 2.51 X10*6/uL (4.60-5.80); Red Cell Distribution Width 17.4 % (11.0-16.0); White Blood Count 22.5 X10*3/uL (4.8-10.8)
[2021-07-05 04:27] LABS: Hematocrit 20.4 % (42-52); Hemoglobin 6.7 g/dl (14.0-18.0)
[2021-07-05 04:35] LABS: Anion Gap 12 (12-20); Blood Urea Nitrogen 6 mg/dL (9-16); Calcium 7.6 mg/dL (8.4-10.2); Carbon Dioxide 26 mmol/L (22-29); Chloride 101 mmol/L (96-108); Creatinine Clr Calc Pharmacy 80.1; Estimated Glomerular Filt Rate > 60; Glucose Random 203 mg/dL (60-115); Potassium 3.2 mmol/L (3.3-5.1); Sodium 136 mmol/L (135-145)
[2021-07-05 04:41] LABS: Vancomycin Trough 24.5 mcg/mL (10.0-20.0)
[2021-07-05] MEDS: Acetaminophen 325 MG TABLET 650 MG PO (05:02)
--- NOTE | 2021-07-05 05:54 | PC.NURSE ---
lab called with a critical H+H-6.7-20.4. notified.ordered 1 units of RBC.temp-100.5 orally medicated with 2 tylenol prior to transfusion.vanco trough-24.5 notified ordered to hold 5am dose.
--- NOTE | 2021-07-05 07:01 | HE.PHANOTE ---
Vancomycin Dosing Addendum Vanco trough 24.5 this morning 07/05/21 @0400. Decreased dose to 1250 mg q12h for a predicted AUC of 495 and predicted trough of 13.6. Dose due on 07/05/21 @0500 was held. Random level and Scr ordered for 07/05/21 @1400 and next dose to start 07/05/21 @1500. Continue to monitor renal fxn.
[2021-07-05 07:51] LABS: Glucose, Whole Blood 181 mg/dL (60-115)
[2021-07-05] MEDS: lisinopriL 5 MG TABLET PO (08:24)
[2021-07-05] MEDS: Atorvastatin Calcium 40 MG TABLET PO (08:25)
[2021-07-05] MEDS: Insulin Glargine,Hum.rec.anlog 100 UNIT/ML 10 ML VIAL 20 UNIT SUBCUT ×2 (08:27→20:40)
[2021-07-05] MEDS: amLODIPine Besylate 5 MG TABLET PO (08:27)
[2021-07-05] MEDS: Insulin Lispro 100 UNIT/ML 3 ML VIAL SUBCUT ×4 (08:27→20:40)
[2021-07-05] MEDS: Sennosides/Docusate Sodium TABLET 1 TAB PO (09:37)
[2021-07-05] MEDS: Enoxaparin Sodium 100 MG/ML SYRINGE 85 MG SUBCUT (09:38)
--- NOTE | 2021-07-05 10:13 | P.PNVS_ITS ---
Subjective Subjective Date of Service: 07/05/21 Patient reports: no new complaints, feels better and pain is less Interval history: 50-year-old gentleman status post transmetatarsal amputation. He appears to be doing significantly better in terms of his pain. He is much more comfortable this morning. He is undergoing transfusion of 2 units of packed red blood cells. No events overnight. He now presents for routine follow-up. Physical Exam Vital Signs: Vital Signs: Last Vital Signs Temp 98.2 F 07/05/21 09:27 Pulse 83 07/05/21 09:27 Resp 18 07/05/21 09:27 BP 150/73 H 07/05/21 09:27 Pulse Ox 94 07/05/21 04:00 Body Mass Index 30.7 Const: General: cooperative, healthy appearing and no acute distress Orientation/consciousness: oriented to person, oriented to place and oriented to time HENMT: Head: Yes normal to inspection Neck: Carotids: no bruits Chest: Chest palpation & inspection: normal inspection of the chest Resp: Effort & Inspection: normal respiratory effort and able to speak in complete sentences Auscultation: clear to auscultation bilaterally Cardio: Rate: regular rate Heart sounds: S1 normal heart sound present and S2 normal heart sound present GI: Inspection: Yes normal to inspection Skin: General skin exam: no rashes or lesions noted Wounds: amputation site (Trans met amp: Middle incision tenuous flap) Neuro: General: oriented to person, oriented to place, oriented to time and CN's II-XI intact bilaterally Extrem: General: Yes normal to inspection, Yes full ROM and Yes no clubbing, cyanosis or edema Psych: Appearance: grossly normal and well kempt Speech and movement: Normal speech and movement present Affect: normal affect Progress Note: A&P Assessment and plan (1) PAD (peripheral artery disease): Status: Acute Assessment and Plan: Patient has undergone left-sided atherectomy and stent placement. Subsequent transmetatarsal amputation. He appears to be doing relatively okay. Would transfuse as needed. Would start formal anticoagulation with a NOAC. In addition would continue antibiotics for now. Will follow CBC closely. I hope his white count starts to go down. Flap is tenuous at best. We will have to continue to monitor this closely. We will see how he does throughout the weekend. Thank you for allowing us to assist in his care. If there are any questions or concerns please do not hesitate to contact us. Fall Risk Details Current Medications: Current Medications Acetaminophen (Acetaminophen 325 Mg Tablet) 650 mg PO Q4H PRN PRN Reason: pain/fever Last Admin: 07/05/21 05:02 Dose: 650 mg Documented by: Al Hydroxide/Mg Hydroxide (Magnesium Hydrox/Alum Hydrox 30 Ml Oral.Susp) 30 ml PO Q4H PRN PRN Reason: Heartburn/Nausea Last Admin: 07/01/21 15:02 Dose: 30 ml Documented by: Amlodipine Besylate (Amlodipine Besylate 5 Mg Tablet) 5 mg PO DAILY [facility]; Protocol Last Admin: 07/05/21 08:27 Dose: 5 mg Documented by: Apixaban (Apixaban 5 Mg Tablet) 10 mg PO BID [facility] Stop: 07/12/21 09:01 Atorvastatin Calcium (Atorvastatin Calcium 40 Mg Tablet) 40 mg PO DAILY [facility] Last Admin: 07/05/21 08:25 Dose: 40 mg Documented by: Hydromorphone HCl (Hydromorphone Hcl 0.5 Mg/0.5 Ml Syringe) 0.25 mg IVPUSH Q5M PRN; Protocol PRN Reason: Pain, Severe (Pain Scale 7-10) Piperacillin Sod/Tazobactam (Sod 3.375 gm/ Sodium Chloride) 50 mls @ 100 mls/hr IV Q6H [facility] Last Infusion: 07/05/21 10:12 Dose: Infused Documented by: Promethazine HCl 12.5 mg/ (Sodium Chloride) 50.5 mls @ 202 mls/hr IV ONCE PRN PRN Reason: Nausea and Vomiting Vancomycin HCl 1,250 mg/ (Sodium Chloride) 250 mls @ 166.667 mls/hr IV Q12H [facility] Insulin Glargine (Insulin Glargine,Hum.Rec.Anlog 100 Unit/Ml 10 Ml Vial) 20 unit SUBCUT BID [facility] Last Admin: 07/05/21 08:27 Dose: 20 unit Documented by: Insulin Human Lispro (Insulin Lispro 100 Unit/Ml 3 Ml Vial) 0 unit SUBCUT QIDACHS [facility]; Protocol Last Admin: 07/05/21 08:27 Dose: 4 unit Documented by: Lisinopril (Lisinopril 5 Mg Tablet) 5 mg PO DAILY [facility]; Protocol Last Admin: 07/05/21 08:24 Dose: 5 mg Documented by: Melatonin (Melatonin 3 Mg Tablet) 6 mg PO BEDTIME PRN PRN Reason: Insomnia Ondansetron HCl (Ondansetron Hcl 4 Mg/2 Ml Vial) 4 mg IVPUSH Q8H PRN PRN Reason: nausea/vomiting Last Admin: 07/05/21 02:43 Dose: 4 mg Documented by: Ondansetron HCl (Ondansetron Hcl 4 Mg/2 Ml Vial) 4 mg IVPUSH ONCE PRN PRN Reason: Nausea and Vomiting Oxycodone HCl (Oxycodone Hcl Immed Release 5 Mg Tablet) 5 mg PO Q4H PRN PRN Reason: severe pain Last Admin: 07/03/21 12:37 Dose: 5 mg Documented by: Pharmacy Consult (Consult Rx Vancomycin Dosing) 1 each MISCELLANE DAILY PRN PRN Reason: Consult order Pharmacy Consult (Consult Rx Vancomycin Dosing) 1 each MISCELLANE DAILY PRN PRN Reason: Consult order Senna/Docusate Sodium (Sennosides/Docusate Sodium Tablet) 1 tab PO DAILY [facility] Last Admin: 07/05/21 09:37 Dose: 1 tab Documented by: Sodium Chloride (0.9 % Sodium Chloride Flush 3 Ml Syringe) 3 ml IVFLUSH QSHIFT [facility] Last Admin: 07/05/21 08:31 Dose: Not Given Documented by: Time Spent With Patient Time: Total time spent is greater than 50% in coordination of care (as documented) at patient's floor/unit and/or counseling patient: Time with patient: 25 - 35 minutes Procedures Date of Service Date of Service: 07/05/21 Quality Stroke Does the patient have a stroke diagnosis?: No VTE Prior VTE?: No VTE Risk Level:: Medical - moderate - high VTE Device Contraindication: Treatment Not Tolerated VTE Drug Contraindication: N/A - Med Ordered
--- NOTE | 2021-07-05 10:29 | P.PNIM_ITS ---
Subjective Subjective Date of Service: 07/05/21 Interval History: Seen and examined this morning s/p left transmetatarsal amputation yesterday Low-grade fever 100.5 overnight Patient denies any pain, fever, chills Review of Systems Review of Systems: Yes all other systems are reviewed and are negative Constitutional Constitutional: Denies chills and Denies fever(s) Cardiovascular Cardiovascular: Denies chest pain Respiratory Respiratory: Denies cough Gastrointestinal Gastrointestinal: Denies abdominal pain Physical Exam Vital Signs: Vital Signs: Last Vital Signs Temp 98.2 F 07/05/21 09:27 Pulse 83 07/05/21 09:27 Resp 18 07/05/21 09:27 BP 150/73 H 07/05/21 09:27 Pulse Ox 94 07/05/21 04:00 Body Mass Index 30.7 Const: General: no acute distress, alert, awake and ill appearing Nutritional Appearance: well nourished Orientation/consciousness: patient oriented x3 HENMT: Head: Yes normocephalic and Yes atraumatic Eyes: Sclerae: sclerae normal Chest: Chest palpation & inspection: normal inspection of the chest Resp: Effort & Inspection: normal respiratory effort and no respiratory distress Auscultation: clear to auscultation bilaterally Cardio: Rate: regular rate Rhythm: regular rhythm GI: Palpation (GI): Soft to palpation and nontender Neuro: General: patient oriented x3 Cranial nerves: Yes CN's II-XII intact bilaterally and Yes Bilaterally intact EOM present Extrem: Other: s/p ransmetatarsal amputation; left foot wrapped in clean/dry /intact joi bandage Objective Data Active Medications Acetaminophen (Acetaminophen 325 Mg Tablet) 650 mg PO Q4H PRN PRN Reason: pain/fever Last Admin: 07/05/21 05:02 Dose: 650 mg Documented by: SHAQUILLE Al Hydroxide/Mg Hydroxide (Magnesium Hydrox/Alum Hydrox 30 Ml Oral.Susp) 30 ml PO Q4H PRN PRN Reason: Heartburn/Nausea Last Admin: 07/01/21 15:02 Dose: 30 ml Documented by: MADINA Amlodipine Besylate (Amlodipine Besylate 5 Mg Tablet) 5 mg PO DAILY [facility]; Protocol Last Admin: 07/05/21 08:27 Dose: 5 mg Documented by: VANDANA Apixaban (Apixaban 5 Mg Tablet) 10 mg PO BID [facility] Stop: 07/12/21 09:01 Atorvastatin Calcium (Atorvastatin Calcium 40 Mg Tablet) 40 mg PO DAILY [facility] Last Admin: 07/05/21 08:25 Dose: 40 mg Documented by: VANDANA Hydromorphone HCl (Hydromorphone Hcl 0.5 Mg/0.5 Ml Syringe) 0.25 mg IVPUSH Q5M PRN; Protocol PRN Reason: Pain, Severe (Pain Scale 7-10) Piperacillin Sod/Tazobactam (Sod 3.375 gm/ Sodium Chloride) 50 mls @ 100 mls/hr IV Q6H [facility] Last Infusion: 07/05/21 10:12 Dose: 0 mls/hr Documented by: JACKELINE Promethazine HCl 12.5 mg/ (Sodium Chloride) 50.5 mls @ 202 mls/hr IV ONCE PRN PRN Reason: Nausea and Vomiting Vancomycin HCl 1,250 mg/ (Sodium Chloride) 250 mls @ 166.667 mls/hr IV Q12H [facility] Insulin Glargine (Insulin Glargine,Hum.Rec.Anlog 100 Unit/Ml 10 Ml Vial) 20 unit SUBCUT BID [facility] Last Admin: 07/05/21 08:27 Dose: 20 unit Documented by: VANDANA Insulin Human Lispro (Insulin Lispro 100 Unit/Ml 3 Ml Vial) 0 unit SUBCUT QIDACHS [facility]; Protocol Last Admin: 07/05/21 08:27 Dose: 4 unit Documented by: VANDANA Lisinopril (Lisinopril 5 Mg Tablet) 5 mg PO DAILY [facility]; Protocol Last Admin: 07/05/21 08:24 Dose: 5 mg Documented by: VANDANA Melatonin (Melatonin 3 Mg Tablet) 6 mg PO BEDTIME PRN PRN Reason: Insomnia Ondansetron HCl (Ondansetron Hcl 4 Mg/2 Ml Vial) 4 mg IVPUSH Q8H PRN PRN Reason: nausea/vomiting Last Admin: 07/05/21 02:43 Dose: 4 mg Documented by: SHAQUILLE Ondansetron HCl (Ondansetron Hcl 4 Mg/2 Ml Vial) 4 mg IVPUSH ONCE PRN PRN Reason: Nausea and Vomiting Oxycodone HCl (Oxycodone Hcl Immed Release 5 Mg Tablet) 5 mg PO Q4H PRN PRN Reason: severe pain Last Admin: 07/03/21 12:37 Dose: 5 mg Documented by: CHRISTIANNE Pharmacy Consult (Consult Rx Vancomycin Dosing) 1 each MISCELLANE DAILY PRN PRN Reason: Consult order Pharmacy Consult (Consult Rx Vancomycin Dosing) 1 each MISCELLANE DAILY PRN PRN Reason: Consult order Senna/Docusate Sodium (Sennosides/Docusate Sodium Tablet) 1 tab PO DAILY [facility] Last Admin: 07/05/21 09:37 Dose: 1 tab Documented by: JACKELINE Sodium Chloride (0.9 % Sodium Chloride Flush 3 Ml Syringe) 3 ml IVFLUSH QSHIFT [facility] Last Admin: 07/05/21 08:31 Dose: Not Given Documented by: VANDANA Non-Admin Reason: IV Running Labs CBC & Chem 7: 07/05/21 04:04 07/05/21 04:04 Labs: Laboratory Results - last 24 hr 07/02/21 07/04/21 07/04/21 06:14 11:47 16:25 MCV MCH MCHC RDW Plt Count MPV Absolute Nucleated RBC Nucleated RBC % (auto) Anion Gap Estim Creat Clear Calc Estimated GFR POC Glucose 153 H 189 H Random Glucose Calcium Vancomycin Trough Blood Type A Positive Antibody Screen NEGATIVE Crossmatch See Detail 07/04/21 07/05/21 07/05/21 20:40 04:04 04:04 MCV 81.3 MCH 26.7 L MCHC 32.8 RDW 17.4 H Plt Count 366 MPV 9.4 Absolute Nucleated RBC 0.000 Nucleated RBC % (auto) 0.0 Anion Gap Estim Creat Clear Calc Estimated GFR POC Glucose 196 H Random Glucose Calcium Vancomycin Trough 24.5 H Blood Type Antibody Screen Crossmatch 07/05/21 07/05/21 07/05/21 04:04 04:05 07:27 MCV MCH MCHC RDW Plt Count MPV Absolute Nucleated RBC Nucleated RBC % (auto) Anion Gap 12 Estim Creat Clear Calc 80.1 Cancelled Estimated GFR > 60 Cancelled POC Glucose 181 H Random Glucose 203 H Calcium 7.6 L Vancomycin Trough Blood Type Antibody Screen Crossmatch Microbiology Microbiology Results: Microbiology 06/30/21 03:25 Blood Culture - Final Blood - Arterial No growth after 5 days. 06/30/21 02:15 Blood Culture - Final Blood - Arterial No growth after 5 days. Assessment and Plan (1) Diabetic foot ulcer: Status: Acute (2) Sepsis: Status: Acute Assessment and Plan: This is a 50yo M with DM2, PAD, hx amputation of R 4th toe due to osteomyelitis admitted with severe sepsis due to rapid development of infected necrotic ulcers on L 4th foot, necrotic bone on aspirate from wound clinic found to have L SFA occlusion with soft plaque concerning for embolic event severe sepsis DM foot infection/osteomyelitis/abscess peripheral arterial disease - s/p left transmetatarsal amputation 07/04 - follow pathology - BCx negative. persistent leukocytosis - s/p L SFA atherectomy/stenting 07/03 - found to have a left SFA occlusion with a soft plaque concerning for embolic event - embolic workup: cardiac technologist, TTE with moderate pulmonary HTN. Will transition to oral Eliquis for AC starting tonight - continue vanco + pip/adalberto ; ID following - oxycodone prn pain control - vascular following HTN Blood pressure improving -continue lisinopril, norvasc iron deficiency anemia H/H trending down transfuse 2U -follow CBC - will need iron replacement once infection under control; FOBT pending prerenal ALEKSANDR Creatinine trending up Follow BMP DM2, A1c 8.5 - basal/bolus insulin HLD - statin VTE ppx - LMWH, will convert to eliquis Attending physician- Dr. morris Quality Stroke Does the patient have a stroke diagnosis?: No VTE Prior VTE?: No VTE Risk Level:: Medical - moderate - high VTE Device Contraindication: Treatment Not Tolerated VTE Drug Contraindication: N/A - Med Ordered
[2021-07-05 11:12] LABS: INTERNATIONAL NORM RATIO 1.3 (0.9-1.1); Prothrombin Time 15.4 SEC (9.9-13.0)
[2021-07-05 11:15] LABS: Partial Thromboplastin Time 37.3 SEC (24.1-38.0)
[2021-07-05 11:22] LABS: Glucose, Whole Blood 141 mg/dL (60-115)
--- NOTE | 2021-07-05 12:13 | HO.POSTANES ---
Post Anesthesia Evaluation Post Anesthesia Evaluation Vital Signs: Vital Signs Temp Pulse Resp BP Pulse Ox 07/05/21 11:31 98.3 F 91 18 165/84 H 96 07/05/21 09:27 98.2 F 83 18 150/73 H 07/05/21 08:27 74 132/78 07/05/21 08:24 74 132/78 07/05/21 08:00 18 07/05/21 06:45 98.2 F 74 20 132/78 07/05/21 06:25 98.5 F 86 20 124/86 07/05/21 05:04 100.5 F H 86 156/78 H 07/05/21 04:00 99.3 F 88 16 142/70 H 94 Anesthesia: General Mental Status: Awake Pain Control: Satisfactory Nausea/Vomiting: None Hydration: Adequate Anesthesia-Related Issues: No Anes. Related Issues
--- NOTE | 2021-07-05 12:35 | MHC.CM.PN ---
Patient is not yet medically cleared for dc (TMA on 07/04); No PCP so [facility] is not an option. ? STR pending PT eval.CM will follow for dc planning.
--- NOTE | 2021-07-05 13:42 | MHC.CM.PN ---
CM met with Patient and his /Iris at bedside.Iris indicated that she has not yet received a call from [employer], to assist with a [facility] rossy. KIMMIE tiger text [facility] (Michelle) and again requested that they contact Iris as soon as possible. KIMMIE will follow.
[2021-07-05 16:03] LABS: Creatinine Clr Calc Pharmacy 84.5; Estimated Glomerular Filt Rate > 60
[2021-07-05 16:10] LABS: Vancomycin Random 13.3 mcg/mL (15-20)
[2021-07-05 16:26] LABS: Glucose, Whole Blood 147 mg/dL (60-115)
[2021-07-05] MEDS: Magnesium Hydrox/Alum Hydrox 30 ML ORAL.SUSP PO (16:42)
[2021-07-05] MEDS: 0.9 % Sodium Chloride Flush 3 ML SYRINGE IVFLUSH ×2 (16:43→20:40)
[2021-07-05] MEDS: vancomycin HCL 1,250 MG in 0.9 % Sodium Chloride 250 ML 166.67 MG IV (16:43)
[2021-07-05 19:59] LABS: Glucose, Whole Blood 144 mg/dL (60-115)
[2021-07-05] MEDS: Apixaban 5 MG TABLET 10 MG PO (20:39)
--- NOTE | 2021-07-05 21:26 | PM.IDPN ---
Subjective Subjective Date of Service: 07/05/21 Critical Care Time (minutes): 15 Comment: he had transmetatarsal amputation yesterday he had some gas and abscess in area he had weakness Objective Data Labs CBC & Chem 7: 07/05/21 04:04 07/05/21 15:37 Labs: Laboratory Results - last 24 hr 07/02/21 07/04/21 07/05/21 06:14 20:40 04:04 WBC RBC Hgb Hct MCV MCH MCHC RDW Plt Count MPV Absolute Nucleated RBC Nucleated RBC % (auto) PT INR APTT Sodium Potassium Chloride Carbon Dioxide Anion Gap BUN Creatinine Estim Creat Clear Calc Estimated GFR POC Glucose 196 H Random Glucose Calcium Vancomycin Trough 24.5 H Random Vancomycin Blood Type A Positive Antibody Screen NEGATIVE Crossmatch See Detail 07/05/21 07/05/21 07/05/21 04:04 04:04 04:05 WBC 22.5 H RBC 2.51 L Hgb 6.7 L* Hct 20.4 L* MCV 81.3 MCH 26.7 L MCHC 32.8 RDW 17.4 H Plt Count 366 MPV 9.4 Absolute Nucleated RBC 0.000 Nucleated RBC % (auto) 0.0 PT INR APTT Sodium 136 Potassium 3.2 L Chloride 101 Carbon Dioxide 26 Anion Gap 12 BUN 6 L Creatinine 1.16 Cancelled Estim Creat Clear Calc 80.1 Cancelled Estimated GFR > 60 Cancelled POC Glucose Random Glucose 203 H Calcium 7.6 L Vancomycin Trough Random Vancomycin Blood Type Antibody Screen Crossmatch 07/05/21 07/05/21 07/05/21 07:27 10:52 10:52 WBC RBC Hgb Hct MCV MCH MCHC RDW Plt Count MPV Absolute Nucleated RBC Nucleated RBC % (auto) PT 15.4 H INR 1.3 H APTT 37.3 Sodium Potassium Chloride Carbon Dioxide Anion Gap BUN Creatinine Estim Creat Clear Calc Estimated GFR POC Glucose 181 H Random Glucose Calcium Vancomycin Trough Random Vancomycin Blood Type A Positive Antibody Screen NEGATIVE Crossmatch See Detail 07/05/21 07/05/21 07/05/21 11:10 15:37 15:37 WBC RBC Hgb Hct MCV MCH MCHC RDW Plt Count MPV Absolute Nucleated RBC Nucleated RBC % (auto) PT INR APTT Sodium Potassium Chloride Carbon Dioxide Anion Gap BUN Creatinine 1.10 Estim Creat Clear Calc 84.5 Estimated GFR > 60 POC Glucose 141 H Random Glucose Calcium Vancomycin Trough Random Vancomycin 13.3 L Blood Type Antibody Screen Crossmatch 07/05/21 07/05/21 16:18 19:44 WBC RBC Hgb Hct MCV MCH MCHC RDW Plt Count MPV Absolute Nucleated RBC Nucleated RBC % (auto) PT INR APTT Sodium Potassium Chloride Carbon Dioxide Anion Gap BUN Creatinine Estim Creat Clear Calc Estimated GFR POC Glucose 147 H 144 H Random Glucose Calcium Vancomycin Trough Random Vancomycin Blood Type Antibody Screen Crossmatch Microbiology Microbiology Results: Microbiology 06/30/21 03:25 Blood - Arterial Blood Culture - Final No growth after 5 days. 06/30/21 02:15 Blood - Arterial Blood Culture - Final No growth after 5 days. 07/01/21 18:36 Blood - Venous Blood Culture - Preliminary No growth after 48 hours. 07/01/21 18:36 Blood - Venous Blood Culture - Preliminary No growth after 48 hours. Physical Exam Vital Signs: Vital Signs: Last Vital Signs Temp 98.3 F 07/05/21 19:11 Pulse 83 07/05/21 19:11 Resp 16 07/05/21 19:11 BP 172/88 H 07/05/21 19:11 Pulse Ox 93 07/05/21 19:11 Body Mass Index 30.7 Const: General: cooperative Eyes: General: appearance normal, both eyes and all related structures Resp: Effort & Inspection: normal respiratory effort Cardio: Rate: regular rate Rhythm: regular rhythm GI: Palpation (GI): Soft to palpation and nontender Extrem: Other: wrapped Assessment and Plan Assessment and plan (1) Diabetic foot ulcer: Status: Acute Assessment and Plan: He is on Vancomycin and Zosyn due to weakness ,possible additional foot source of sepsis Assessment and Plan: Would continue Zosyn and Vancomycin through weekend and await blood cultures. 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
[2021-07-06] VITALS (8 sets, daily range): BP systolic 143–180; BP diastolic 70–94; PULSE 72–89; RESP 16–18; TEMP 36–37.5; O2SAT 92–99
[2021-07-06] MEDS: ondansetron HCL 4 MG/2 ML VIAL IVPUSH ×2 (02:43→21:51)
[2021-07-06] MEDS: Piperacillin Sodium/Tazobactam 3.375 GM in 0.9 % Sodium Chloride 50 ML IV ×4 (02:46→21:51)
[2021-07-06] MEDS: vancomycin HCL 1,250 MG in 0.9 % Sodium Chloride 250 ML 166.67 MG IV ×2 (03:35→15:38)
[2021-07-06 06:59] LABS: Hematocrit 26.9 % (42-52); Hemoglobin 8.9 g/dl (14.0-18.0); Mean Corpuscular HGB Conc 33.1 g/dl (31.0-36.0); Mean Corpuscular Hemoglobin 27.5 pg (27.0-33.0); Mean Platelet Volume 9.9 fL (9.4-12.4); Platelet Count 425 X10*3/uL (160-400); Red Blood Count 3.24 X10*6/uL (4.60-5.80); Red Cell Distribution Width 16.8 % (11.0-16.0); White Blood Count 18.9 X10*3/uL (4.8-10.8)
[2021-07-06 07:18] LABS: Creatinine Clr Calc Pharmacy 85.2; Estimated Glomerular Filt Rate > 60
[2021-07-06 07:40] LABS: Glucose, Whole Blood 85 mg/dL (60-115)
[2021-07-06] MEDS: Sennosides/Docusate Sodium TABLET 1 TAB PO (08:01)
[2021-07-06] MEDS: 0.9 % Sodium Chloride Flush 3 ML SYRINGE IVFLUSH ×3 (08:01→21:52)
[2021-07-06] MEDS: Apixaban 5 MG TABLET 10 MG PO ×2 (08:01→21:51)
[2021-07-06] MEDS: lisinopriL 5 MG TABLET PO (08:02)
[2021-07-06] MEDS: Atorvastatin Calcium 40 MG TABLET PO (08:02)
[2021-07-06] MEDS: amLODIPine Besylate 5 MG TABLET PO ×2 (08:02→11:53)
[2021-07-06] MEDS: Insulin Glargine,Hum.rec.anlog 100 UNIT/ML 10 ML VIAL 20 UNIT SUBCUT ×2 (08:02→21:52)
[2021-07-06 11:44] LABS: Glucose, Whole Blood 132 mg/dL (60-115)
--- NOTE | 2021-07-06 11:49 | HO.PM.IMPN ---
Subjective Subjective Date of Service: 07/06/21 <OLGA LIDIA Ramsey - Last Filed: 07/06/21 11:59> 07/06/21 <Trenton Neal MD - Last Filed: 07/06/21 12:24> Interval History: Seen and examined this morning Follow-up for left diabetic foot infection No overnight events Patient denies any significant left pain. Some nausea this morning no abdominal pain <OLGA LIDIA Ramsey - Last Filed: 07/06/21 11:59> Review of Systems Review of Systems: Yes all other systems are reviewed and are negative <OLGA LIDIA Ramsey - Last Filed: 07/06/21 11:59> Constitutional Constitutional: Denies chills and Denies fever(s) <OLGA LIDIA Ramsey - Last Filed: 07/06/21 11:59> Cardiovascular Cardiovascular: Denies chest pain <OLGA LIDIA Ramsey - Last Filed: 07/06/21 11:59> Respiratory Respiratory: Denies cough <OLGA LIDIA Ramsey - Last Filed: 07/06/21 11:59> Gastrointestinal Gastrointestinal: Denies abdominal pain and Reports nausea <OLGA LIDIA Ramsey Last Filed: 07/06/21 11:59> Physical Exam Vital Signs: Vital Signs: Last Vital Signs Temp 98.1 F 07/06/21 11:23 Pulse 81 07/06/21 11:23 Resp 18 07/06/21 11:23 BP 180/94 H 07/06/21 11:23 Pulse Ox 94 07/06/21 11:23 Body Mass Index 30.7 <OLGA LIDIA Ramsey - Last Filed: 07/06/21 11:59> Const: General: no acute distress, alert, awake and ill appearing <OLGA LIDIA Ramsey Last Filed: 07/06/21 11:59> Nutritional Appearance: well nourished <OLGA LIDIA Ramsey Last Filed: 07/06/21 11:59> Orientation/consciousness: patient oriented x3 <OLGA LIDIA Ramsey Last Filed: 07/06/21 11:59> HENMT: Head: Yes normocephalic and Yes atraumatic <OLGA LIDIA Ramsey - Last Filed: 07/06/21 11:59> Eyes: Sclerae: sclerae normal <OLGA LIDIA Ramsey - Last Filed: 07/06/21 11:59> Chest: Chest palpation & inspection: normal inspection of the chest <OLGA LIDIA Ramsey Last Filed: 07/06/21 11:59> Resp: Effort & Inspection: normal respiratory effort and no respiratory distress <OLGA LIDIA Ramsey - Last Filed: 07/06/21 11:59> Auscultation: clear to auscultation bilaterally <OLGA LIDIA Ramsey - Last Filed: 07/06/21 11:59> Cardio: Rate: regular rate <OLGA LIDIA Ramsey - Last Filed: 07/06/21 11:59> Rhythm: regular rhythm <OLGA LIDIA Ramsey - Last Filed: 07/06/21 11:59> GI: Palpation (GI): Soft to palpation and nontender <OLGA LIDIA Ramsey - Last Filed: 07/06/21 11:59> Neuro: General: patient oriented x3 <OLGA LIDIA Ramsey - Last Filed: 07/06/21 11:59> Cranial nerves: Yes CN's II-XII intact bilaterally and Yes Bilaterally intact EOM present <OLGA LIDIA Ramsey - Last Filed: 07/06/21 11:59> Extrem: Other: s/p ransmetatarsal amputation; left foot wrapped in clean/dry/intact joi bandage <OLGA LIDIA Ramsey Last Filed: 07/06/21 11:59> Objective Data Active Medications Acetaminophen (Acetaminophen 325 Mg Tablet) 650 mg PO Q4H PRN PRN Reason: pain/fever Last Admin: 07/05/21 05:02 Dose: 650 mg Documented by: SHAQUILLE Al Hydroxide/Mg Hydroxide (Magnesium Hydrox/Alum Hydrox 30 Ml Oral.Susp) 30 ml PO Q4H PRN PRN Reason: Heartburn/Nausea Last Admin: 07/05/21 16:42 Dose: 30 ml Documented by: YESIZ Amlodipine Besylate (Amlodipine Besylate 10 Mg Tablet) 10 mg PO DAILY [facility]; Protocol Apixaban (Apixaban 5 Mg Tablet) 10 mg PO BID [facility] Stop: 07/12/21 09:01 Last Admin: 07/06/21 08:01 Dose: 10 mg Documented by: DULCE Atorvastatin Calcium (Atorvastatin Calcium 40 Mg Tablet) 40 mg PO DAILY [facility] Last Admin: 07/06/21 08:02 Dose: 40 mg Documented by: COTEMA Hydromorphone HCl (Hydromorphone Hcl 0.5 Mg/0.5 Ml Syringe) 0.25 mg IVPUSH Q5M PRN; Protocol PRN Reason: Pain, Severe (Pain Scale 7-10) Piperacillin Sod/Tazobactam (Sod 3.375 gm/ Sodium Chloride) 50 mls @ 100 mls/hr IV Q6H [facility] Last Infusion: 07/06/21 08:46 Dose: 0 mls/hr Documented by: DULCE Promethazine HCl 12.5 mg/ (Sodium Chloride) 50.5 mls @ 202 mls/hr IV ONCE PRN PRN Reason: Nausea and Vomiting Vancomycin HCl 1,250 mg/ (Sodium Chloride) 250 mls @ 166.667 mls/hr IV Q12H [facility] Last Infusion: 07/06/21 05:47 Dose: 0 mls/hr Documented by: NAZIA Insulin Glargine (Insulin Glargine,Hum.Rec.Anlog 100 Unit/Ml 10 Ml Vial) 20 unit SUBCUT BID [facility] Last Admin: 07/06/21 08:02 Dose: 20 unit Documented by: DULCE Insulin Human Lispro (Insulin Lispro 100 Unit/Ml 3 Ml Vial) 0 unit SUBCUT QIDACHS [facility]; Protocol Last Admin: 07/06/21 07:41 Dose: Not Given Documented by: DULCE Non-Admin Reason: No Insulin Coverage Lisinopril (Lisinopril 5 Mg Tablet) 5 mg PO DAILY [facility]; Protocol Last Admin: 07/06/21 08:02 Dose: 5 mg Documented by: DULCE Melatonin (Melatonin 3 Mg Tablet) 6 mg PO BEDTIME PRN PRN Reason: Insomnia Ondansetron HCl (Ondansetron Hcl 4 Mg/2 Ml Vial) 4 mg IVPUSH Q8H PRN PRN Reason: nausea/vomiting Last Admin: 07/06/21 02:43 Dose: 4 mg Documented by: NAZIA Ondansetron HCl (Ondansetron Hcl 4 Mg/2 Ml Vial) 4 mg IVPUSH ONCE PRN PRN Reason: Nausea and Vomiting Oxycodone HCl (Oxycodone Hcl Immed Release 5 Mg Tablet) 5 mg PO Q4H PRN PRN Reason: severe pain Last Admin: 07/03/21 12:37 Dose: 5 mg Documented by: CHRISTIANNE Pharmacy Consult (Consult Rx Vancomycin Dosing) 1 each MISCELLANE DAILY PRN PRN Reason: Consult order Pharmacy Consult (Consult Rx Vancomycin Dosing) 1 each MISCELLANE DAILY PRN PRN Reason: Consult order Senna/Docusate Sodium (Sennosides/Docusate Sodium Tablet) 1 tab PO DAILY [facility] Last Admin: 07/06/21 08:01 Dose: 1 tab Documented by: DULCE Sodium Chloride (0.9 % Sodium Chloride Flush 3 Ml Syringe) 3 ml IVFLUSH QSHIFT [facility] Last Admin: 07/06/21 08:01 Dose: 3 ml Documented by: DULCE <OLGA LIDIA Ramsey - Last Filed: 07/06/21 11:59> Labs CBC & Chem 7: : 07/06/21 05:54 07/06/21 05:54 <OLGA LIDIA Ramsey - Last Filed: 07/06/21 11:59> Labs: Laboratory Results - last 24 hr 07/02/21 07/05/21 07/05/21 06:14 10:52 15:37 MCV MCH MCHC RDW Plt Count MPV Absolute Nucleated RBC Nucleated RBC % (auto) Estim Creat Clear Calc Estimated GFR POC Glucose Random Vancomycin 13.3 L Blood Type A Positive Antibody Screen NEGATIVE Crossmatch See Detail See Detail 07/05/21 07/05/21 07/05/21 15:37 16:18 19:44 MCV MCH MCHC RDW Plt Count MPV Absolute Nucleated RBC Nucleated RBC % (auto) Estim Creat Clear Calc 84.5 Estimated GFR > 60 POC Glucose 147 H 144 H Random Vancomycin Blood Type Antibody Screen Crossmatch 07/06/21 07/06/21 07/06/21 05:54 05:54 07:08 MCV 83.0 MCH 27.5 MCHC 33.1 RDW 16.8 H Plt Count 425 H MPV 9.9 Absolute Nucleated RBC 0.000 Nucleated RBC % (auto) 0.0 Estim Creat Clear Calc 85.2 Estimated GFR > 60 POC Glucose 85 Random Vancomycin Blood Type Antibody Screen Crossmatch 07/06/21 11:27 MCV MCH MCHC RDW Plt Count MPV Absolute Nucleated RBC Nucleated RBC % (auto) Estim Creat Clear Calc Estimated GFR POC Glucose 132 H Random Vancomycin Blood Type Antibody Screen Crossmatch <OLGA LIDIA Ramsey - Last Filed: 07/06/21 11:59> Assessment and Plan (1) Diabetic foot ulcer: Status: Acute <OLGA LIDIA Ramsey - Last Filed: 07/06/21 11:59> (2) Sepsis: Status: Acute <OLGA LIDIA Ramsey - Last Filed: 07/06/21 11:59> Assessment and Plan: This is a 50yo M with DM2, PAD, hx amputation of R 4th toe due to osteomyelitis admitted with severe sepsis due to rapid development of infected necrotic ulcers on L 4th foot, necrotic bone on aspirate from wound clinic found to have L SFA occlusion with soft plaque concerning for embolic event severe sepsis DM foot infection/osteomyelitis/abscess peripheral arterial disease - s/p left transmetatarsal amputation 07/04 - follow pathology - BCx negative. leukocytosis starting to trend down - s/p L SFA atherectomy/stenting 07/03 - found to have a left SFA occlusion with a soft plaque concerning for embolic event - embolic workup: cardiac exercise physiologist, TTE with moderate pulmonary HTN. Initially treated with therapeutic lovenox transitioned to Eliquis for AC - continue vanco + pip/adalberto at least through weekend per vascular; ID following - oxycodone prn pain control - vascular following HTN Blood pressure uncontrolled agian -continue lisinopril -increase dose of norvasc from 5 to 10mg daily iron deficiency anemia s/p 2U rbc 07/05 with appropriate rise in H/H -follow CBC -will need iron replacement once infection under control; FOBT pending prerenal ALEKSANDR Creatinine stable Follow BMP DM2, A1c 8.5 - basal/bolus insulin HLD - statin VTE ppx: [email or web address] Attending physician- Dr. Neal <OLGA LIDIA Ramsey - Last Filed: 07/06/21 11:59> This is a 50yo M with DM2, PAD, hx amputation of R 4th toe due to osteomyelitis admitted with severe sepsis due to rapid development of infected necrotic ulcers on L 4th foot, necrotic bone on aspirate from wound clinic found to have L SFA occlusion with soft plaque concerning for embolic event severe sepsis DM foot infection/osteomyelitis/abscess peripheral arterial disease - s/p left transmetatarsal amputation 07/04 - follow pathology - BCx negative. leukocytosis starting to trend down - s/p L SFA atherectomy/stenting 07/03 - found to have a left SFA occlusion with a soft plaque concerning for embolic event - embolic workup: cardiac exercise physiologist, TTE with moderate pulmonary HTN. Initially treated with therapeutic lovenox transitioned to Eliquis for AC - continue vanco + pip/adalberto at least through weekend per vascular; ID following - oxycodone prn pain control - vascular following HTN Blood pressure uncontrolled agian -continue lisinopril -increase dose of norvasc from 5 to 10mg daily iron deficiency anemia s/p 2U rbc 07/05 with appropriate rise in H/H -follow CBC -will need iron replacement once infection under control; FOBT pending prerenal ALEKSANDR Creatinine stable Follow BMP DM2, A1c 8.5 - basal/bolus insulin HLD - statin VTE ppx: eliquis Attending physician- Dr. Neal Patient and examined and discussed all finding with PA and I agree with above <Trenton Neal MD - Last Filed: 07/06/21 12:24> Quality Stroke Does the patient have a stroke diagnosis?: No <OLGA LIDIA Ramsey - Last Filed: 07/06/21 11:59> VTE Prior VTE?: No <OLGA LIDIA Ramsey - Last Filed: 07/06/21 11:59> VTE Risk Level:: Medical - moderate - high <OLGA LIDIA Ramsey - Last Filed: 07/06/21 11:59> VTE Device Contraindication: Treatment Not Tolerated <OLGA LIDIA Ramsey - Last Filed: 07/06/21 11:59> VTE Drug Contraindication: N/A - Med Ordered <OLGA LIDIA Ramsey - Last Filed: 07/06/21 11:59>
[2021-07-06] MEDS: Insulin Lispro 100 UNIT/ML 3 ML VIAL SUBCUT ×2 (11:52→21:52)
[2021-07-06 16:19] LABS: Glucose, Whole Blood 102 mg/dL (60-115)
[2021-07-06 20:34] LABS: Glucose, Whole Blood 163 mg/dL (60-115)
[2021-07-07] VITALS (7 sets, daily range): BP systolic 158–188; BP diastolic 80–86; PULSE 82–96; RESP 17–19; TEMP 36.2–37; O2SAT 92–96
[2021-07-07 02:20] LABS: Vancomycin Trough 18.9 mcg/mL (10.0-20.0)
[2021-07-07] MEDS: Piperacillin Sodium/Tazobactam 3.375 GM in 0.9 % Sodium Chloride 50 ML IV ×4 (03:03→20:33)
[2021-07-07] MEDS: vancomycin HCL 1,250 MG in 0.9 % Sodium Chloride 250 ML 166.67 MG IV (03:37)
[2021-07-07 06:28] LABS: Hematocrit 28.3 % (42-52); Hemoglobin 9.3 g/dl (14.0-18.0); Mean Corpuscular HGB Conc 32.9 g/dl (31.0-36.0); Mean Corpuscular Hemoglobin 27.5 pg (27.0-33.0); Mean Corpuscular Volume 83.7 fL (80-98); Mean Platelet Volume 9.5 fL (9.4-12.4); Platelet Count 495 X10*3/uL (160-400); Red Blood Count 3.38 X10*6/uL (4.60-5.80); Red Cell Distribution Width 17.1 % (11.0-16.0); White Blood Count 16.9 X10*3/uL (4.8-10.8)
[2021-07-07 06:42] LABS: Anion Gap 12 (12-20); Blood Urea Nitrogen 6 mg/dL (9-16); Calcium 7.9 mg/dL (8.4-10.2); Carbon Dioxide 29 mmol/L (22-29); Chloride 101 mmol/L (96-108); Creatinine Clr Calc Pharmacy 82.2; Estimated Glomerular Filt Rate > 60; Glucose Random 146 mg/dL (60-115); Potassium 3.2 mmol/L (3.3-5.1); Sodium 139 mmol/L (135-145)
[2021-07-07 07:16] LABS: Glucose, Whole Blood 152 mg/dL (60-115)
[2021-07-07] MEDS: Insulin Glargine,Hum.rec.anlog 100 UNIT/ML 10 ML VIAL 20 UNIT SUBCUT ×2 (07:39→20:32)
[2021-07-07] MEDS: Sennosides/Docusate Sodium TABLET 1 TAB PO (07:39)
[2021-07-07] MEDS: Potassium Chloride ER 20 MEQ TAB.ER.PRT 40 MEQ PO (07:39)
[2021-07-07] MEDS: lisinopriL 5 MG TABLET PO ×2 (07:39→13:37)
[2021-07-07] MEDS: Insulin Lispro 100 UNIT/ML 3 ML VIAL SUBCUT ×4 (07:39→20:32)
[2021-07-07] MEDS: amLODIPine Besylate 10 MG TABLET PO (07:40)
[2021-07-07] MEDS: Atorvastatin Calcium 40 MG TABLET PO (07:40)
[2021-07-07] MEDS: 0.9 % Sodium Chloride Flush 3 ML SYRINGE IVFLUSH ×3 (07:40→20:33)
[2021-07-07] MEDS: Apixaban 5 MG TABLET 10 MG PO ×2 (07:40→20:32)
--- NOTE | 2021-07-07 11:15 | HO.PM.IMPN ---
Subjective Subjective Date of Service: 07/07/21 Interval History: seen and examined this morning follow up for diabetic foot infection/osteo denies left leg/foot pain nausea better today, no abdominal pain Review of Systems Review of Systems: Yes all other systems are reviewed and are negative Constitutional Constitutional: Denies chills and Denies fever(s) Cardiovascular Cardiovascular: Denies chest pain Respiratory Respiratory: Denies cough Gastrointestinal Gastrointestinal: Denies abdominal pain Physical Exam Vital Signs: Vital Signs: Last Vital Signs Temp 98.1 F 07/07/21 11:11 Pulse 96 07/07/21 11:11 Resp 18 07/07/21 11:11 BP 189/99 H 07/07/21 11:11 Pulse Ox 92 07/07/21 11:11 Body Mass Index 30.7 Const: General: no acute distress, alert, awake and ill appearing Nutritional Appearance: well nourished Orientation/consciousness: patient oriented x3 HENMT: Head: Yes normocephalic and Yes atraumatic Eyes: Sclerae: sclerae normal Chest: Chest palpation & inspection: normal inspection of the chest Resp: Effort & Inspection: normal respiratory effort and no respiratory distress Auscultation: clear to auscultation bilaterally Cardio: Rate: regular rate Rhythm: regular rhythm GI: Palpation (GI): Soft to palpation and nontender Skin: Other: Neuro: General: patient oriented x3 Cranial nerves: Yes CN's II-XII intact bilaterally and Yes Bilaterally intact EOM present Extrem: Other: s/p ransmetatarsal amputation; left foot wrapped in clean/dry/intact joi bandage Objective Data Active Medications Acetaminophen (Acetaminophen 325 Mg Tablet) 650 mg PO Q4H PRN PRN Reason: pain/fever Last Admin: 07/05/21 05:02 Dose: 650 mg Documented by: SHAQUILLE Al Hydroxide/Mg Hydroxide (Magnesium Hydrox/Alum Hydrox 30 Ml Oral.Susp) 30 ml PO Q4H PRN PRN Reason: Heartburn/Nausea Last Admin: 07/05/21 16:42 Dose: 30 ml Documented by: JACKELINE Amlodipine Besylate (Amlodipine Besylate 10 Mg Tablet) 10 mg PO DAILY [facility]; Protocol Last Admin: 07/07/21 07:40 Dose: 10 mg Documented by: COTGIOVANI Apixaban (Apixaban 5 Mg Tablet) 10 mg PO BID [facility] Stop: 07/12/21 09:01 Last Admin: 07/07/21 07:40 Dose: 10 mg Documented by: COTEMA Atorvastatin Calcium (Atorvastatin Calcium 40 Mg Tablet) 40 mg PO DAILY [facility] Last Admin: 07/07/21 07:40 Dose: 40 mg Documented by: MARLYN.COTEMA Hydromorphone HCl (Hydromorphone Hcl 0.5 Mg/0.5 Ml Syringe) 0.25 mg IVPUSH Q5M PRN; Protocol PRN Reason: Pain, Severe (Pain Scale 7-10) Piperacillin Sod/Tazobactam (Sod 3.375 gm/ Sodium Chloride) 50 mls @ 100 mls/hr IV Q6H [facility] Last Infusion: 07/07/21 08:13 Dose: 0 mls/hr Documented by: COTEMA Promethazine HCl 12.5 mg/ (Sodium Chloride) 50.5 mls @ 202 mls/hr IV ONCE PRN PRN Reason: Nausea and Vomiting Vancomycin HCl 1,000 mg/ (Sodium Chloride) 270 mls @ 270 mls/hr IV Q12H [facility] Insulin Glargine (Insulin Glargine,Hum.Rec.Anlog 100 Unit/Ml 10 Ml Vial) 20 unit SUBCUT BID [facility] Last Admin: 07/07/21 07:39 Dose: 20 unit Documented by: NEDAEMA Insulin Human Lispro (Insulin Lispro 100 Unit/Ml 3 Ml Vial) 0 unit SUBCUT QIDACHS [facility]; Protocol Last Admin: 07/07/21 07:39 Dose: 4 unit Documented by: COTEMA Lisinopril (Lisinopril 5 Mg Tablet) 5 mg PO DAILY [facility]; Protocol Last Admin: 07/07/21 07:39 Dose: 5 mg Documented by: NEDAEMA Melatonin (Melatonin 3 Mg Tablet) 6 mg PO BEDTIME PRN PRN Reason: Insomnia Ondansetron HCl (Ondansetron Hcl 4 Mg/2 Ml Vial) 4 mg IVPUSH Q8H PRN PRN Reason: nausea/vomiting Last Admin: 07/06/21 21:51 Dose: 4 mg Documented by: NAZIA Ondansetron HCl (Ondansetron Hcl 4 Mg/2 Ml Vial) 4 mg IVPUSH ONCE PRN PRN Reason: Nausea and Vomiting Oxycodone HCl (Oxycodone Hcl Immed Release 5 Mg Tablet) 5 mg PO Q4H PRN PRN Reason: severe pain Last Admin: 07/03/21 12:37 Dose: 5 mg Documented by: CHRISTIANNE Senna/Docusate Sodium (Sennosides/Docusate Sodium Tablet) 1 tab PO DAILY [facility] Last Admin: 07/07/21 07:39 Dose: 1 tab Documented by: DULCE Sodium Chloride (0.9 % Sodium Chloride Flush 3 Ml Syringe) 3 ml IVFLUSH QSHIFT [facility] Last Admin: 07/07/21 07:40 Dose: 3 ml Documented by: DULCE Labs CBC & Chem 7: 07/07/21 05:42 07/07/21 05:42 Labs: Laboratory Results - last 24 hr 07/06/21 07/06/21 07/06/21 11:27 16:12 20:29 MCV MCH MCHC RDW Plt Count MPV Absolute Nucleated RBC Nucleated RBC % (auto) Anion Gap Estim Creat Clear Calc Estimated GFR POC Glucose 132 H 102 163 H Random Glucose Calcium Vancomycin Trough 07/07/21 07/07/21 07/07/21 01:45 05:42 05:42 MCV 83.7 MCH 27.5 MCHC 32.9 RDW 17.1 H Plt Count 495 H MPV 9.5 Absolute Nucleated RBC 0.000 Nucleated RBC % (auto) 0.0 Anion Gap 12 Estim Creat Clear Calc 82.2 Estimated GFR > 60 POC Glucose Random Glucose 146 H Calcium 7.9 L Vancomycin Trough 18.9 07/07/21 06:56 MCV MCH MCHC RDW Plt Count MPV Absolute Nucleated RBC Nucleated RBC % (auto) Anion Gap Estim Creat Clear Calc Estimated GFR POC Glucose 152 H Random Glucose Calcium Vancomycin Trough Microbiology Microbiology Results: Microbiology 07/01/21 18:36 Blood Culture - Final Blood - Venous No growth after 5 days. 07/01/21 18:36 Blood Culture - Final Blood - Venous No growth after 5 days. Assessment and Plan (1) Diabetic foot ulcer: Status: Acute (2) Hypertension: Status: Acute Assessment and Plan: This is a 50yo M with DM2, PAD, hx amputation of R 4th toe due to osteomyelitis admitted with severe sepsis due to rapid development of infected necrotic ulcers on L 4th foot, necrotic bone on aspirate from wound clinic found to have L SFA occlusion with soft plaque concerning for embolic event severe sepsis DM foot infection/osteomyelitis/abscess peripheral arterial disease - s/p left transmetatarsal amputation 07/04 - follow pathology - BCx negative. 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 Initially treated with therapeutic lovenox transitioned to Eliquis for AC - continue vanco + pip/adalberto at least through weekend per vascular; ID following - oxycodone prn pain control - vascular following HTN Blood pressure uncontrolled Patient denies pain -Will increase dose of lisinopril from 5mg to 10 mg -continue Norvasc 10mg daily iron deficiency anemia s/p 2U rbc 07/05 with appropriate rise in H/H H/H has remained stable -follow CBC -will need iron replacement once infection under control; FOBT pending Mild renal insufficiency baseline .8, creatinine has been around 1-1.1 Follow BMP closely while on vancomycin DM2, A1c 8.5 - basal/bolus insulin HLD - statin VTE ppx: [facility] Attending physician- Dr. Sandhu Quality Stroke Does the patient have a stroke diagnosis?: No VTE Prior VTE?: No VTE Risk Level:: Medical - moderate - high VTE Device Contraindication: Treatment Not Tolerated VTE Drug Contraindication: N/A - Med Ordered
[2021-07-07 11:54] LABS: Glucose, Whole Blood 147 mg/dL (60-115)
[2021-07-07] MEDS: ondansetron HCL 4 MG/2 ML VIAL IVPUSH (14:41)
[2021-07-07] MEDS: vancomycin HCL 1,000 MG in 0.9 % Sodium Chloride 250 ML 270 MG IV (15:13)
[2021-07-07 16:10] LABS: Glucose, Whole Blood 138 mg/dL (60-115)
[2021-07-07 20:30] LABS: Glucose, Whole Blood 141 mg/dL (60-115)
[2021-07-08] VITALS (9 sets, daily range): BP systolic 129–178; BP diastolic 73–97; PULSE 82–98; RESP 17–18; TEMP 36.3–37.1; O2SAT 94–97
[2021-07-08] MEDS: Piperacillin Sodium/Tazobactam 3.375 GM in 0.9 % Sodium Chloride 50 ML IV ×4 (02:16→20:43)
[2021-07-08] MEDS: vancomycin HCL 1,000 MG in 0.9 % Sodium Chloride 250 ML 270 MG IV (02:49)
[2021-07-08 05:33] LABS: Hematocrit 29.5 % (42-52); Hemoglobin 9.5 g/dl (14.0-18.0); Mean Corpuscular HGB Conc 32.2 g/dl (31.0-36.0); Mean Corpuscular Hemoglobin 27.2 pg (27.0-33.0); Mean Corpuscular Volume 84.5 fL (80-98); Mean Platelet Volume 9.3 fL (9.4-12.4); Platelet Count 523 X10*3/uL (160-400); Red Blood Count 3.49 X10*6/uL (4.60-5.80); White Blood Count 15.3 X10*3/uL (4.8-10.8)
[2021-07-08 05:53] LABS: Anion Gap 11 (12-20); Calcium 8.1 mg/dL (8.4-10.2); Carbon Dioxide 29 mmol/L (22-29); Chloride 102 mmol/L (96-108); Glucose Random 125 mg/dL (60-115); Potassium 3.3 mmol/L (3.3-5.1); Sodium 139 mmol/L (135-145)
[2021-07-08 06:05] LABS: Blood Urea Nitrogen 5 mg/dL (9-16); Creatinine Clr Calc Pharmacy 93.9; Estimated Glomerular Filt Rate > 60
[2021-07-08 07:31] LABS: Glucose, Whole Blood 135 mg/dL (60-115)
--- NOTE | 2021-07-08 07:42 | HO.VASCPN ---
Subjective Subjective Date of Service: 07/08/21 Patient reports: no new complaints, feels better and pain is less Interval history: Pt. seen and examined. No new events. Doing well. Pain is gone. Tolerating PO. Physical Exam Vital Signs: Vital Signs: Last Vital Signs Temp 97.4 F 07/08/21 07:05 Pulse 82 07/08/21 07:05 Resp 18 07/08/21 07:05 BP 178/97 H 07/08/21 07:05 Pulse Ox 95 07/08/21 07:05 Body Mass Index 30.7 Const: General: cooperative, healthy appearing and no acute distress Orientation/consciousness: oriented to person, oriented to place and oriented to time HENMT: Head: Yes normal to inspection Neck: Carotids: no bruits Chest: Chest palpation & inspection: normal inspection of the chest Resp: Effort & Inspection: normal respiratory effort and able to speak in complete sentences Auscultation: clear to auscultation bilaterally Cardio: Rate: regular rate Heart sounds: S1 normal heart sound present and S2 normal heart sound present GI: Inspection: Yes normal to inspection Skin: Other: Transmet amp - lat taking well, medial aspect some darkened areas but taking well. Concern is central area - covered but boggy. General skin exam: no rashes or lesions noted Wounds: amputation site (slow to heal) Neuro: General: oriented to person, oriented to place, oriented to time and CN's II-XI intact bilaterally Extrem: General: Yes normal to inspection, Yes full ROM and Yes no clubbing, cyanosis or edema Psych: Appearance: grossly normal and well kempt Speech and movement: Normal speech and movement present Affect: normal affect Progress Note: A&P Assessment and plan (1) Diabetic foot ulcer: Status: Acute Assessment and Plan: s/p transmet amp. Healing is OK. Would continue iv antiobiotics untill WBC normalizes then d/c on po anbiotics. Will remain on formal anticoagulation when d/c. start PT. Fall Risk Details Current Medications: Current Medications Acetaminophen (Acetaminophen 325 Mg Tablet) 650 mg PO Q4H PRN PRN Reason: pain/fever Last Admin: 07/05/21 05:02 Dose: 650 mg Documented by: Al Hydroxide/Mg Hydroxide (Magnesium Hydrox/Alum Hydrox 30 Ml Oral.Susp) 30 ml PO Q4H PRN PRN Reason: Heartburn/Nausea Last Admin: 10/08/21 16:42 Dose: 30 ml Documented by: Amlodipine Besylate (Amlodipine Besylate 10 Mg Tablet) 10 mg PO DAILY [facility]; Protocol Last Admin: 07/07/21 07:40 Dose: 10 mg Documented by: Apixaban (Apixaban 5 Mg Tablet) 10 mg PO BID [facility] Stop: 07/12/21 09:01 Last Admin: 07/07/21 20:32 Dose: 10 mg Documented by: Atorvastatin Calcium (Atorvastatin Calcium 40 Mg Tablet) 40 mg PO DAILY [facility] Last Admin: 07/07/21 07:40 Dose: 40 mg Documented by: Hydromorphone HCl (Hydromorphone Hcl 0.5 Mg/0.5 Ml Syringe) 0.25 mg IVPUSH Q5M PRN; Protocol PRN Reason: Pain, Severe (Pain Scale 7-10) Piperacillin Sod/Tazobactam (Sod 3.375 gm/ Sodium Chloride) 50 mls @ 100 mls/hr IV Q6H [facility] Last Infusion: 07/08/21 02:54 Dose: Infused Documented by: Promethazine HCl 12.5 mg/ (Sodium Chloride) 50.5 mls @ 202 mls/hr IV ONCE PRN PRN Reason: Nausea and Vomiting Vancomycin HCl 1,000 mg/ (Sodium Chloride) 270 mls @ 270 mls/hr IV Q12H [facility] Last Infusion: 07/08/21 03:55 Dose: Infused Documented by: Insulin Glargine (Insulin Glargine,Hum.Rec.Anlog 100 Unit/Ml 10 Ml Vial) 20 unit SUBCUT BID [facility] Last Admin: 07/07/21 20:32 Dose: 20 unit Documented by: Insulin Human Lispro (Insulin Lispro 100 Unit/Ml 3 Ml Vial) 0 unit SUBCUT QIDACHS [facility]; Protocol Last Admin: 07/07/21 20:32 Dose: 2 unit Documented by: Lisinopril (Lisinopril 10 Mg Tablet) 10 mg PO DAILY [facility]; Protocol Melatonin (Melatonin 3 Mg Tablet) 6 mg PO BEDTIME PRN PRN Reason: Insomnia Ondansetron HCl (Ondansetron Hcl 4 Mg/2 Ml Vial) 4 mg IVPUSH Q8H PRN PRN Reason: nausea/vomiting Last Admin: 07/07/21 14:41 Dose: 4 mg Documented by: Ondansetron HCl (Ondansetron Hcl 4 Mg/2 Ml Vial) 4 mg IVPUSH ONCE PRN PRN Reason: Nausea and Vomiting Oxycodone HCl (Oxycodone Hcl Immed Release 5 Mg Tablet) 5 mg PO Q4H PRN PRN Reason: severe pain Last Admin: 07/03/21 12:37 Dose: 5 mg Documented by: Senna/Docusate Sodium (Sennosides/Docusate Sodium Tablet) 1 tab PO DAILY [facility] Last Admin: 07/07/21 07:39 Dose: 1 tab Documented by: Sodium Chloride (0.9 % Sodium Chloride Flush 3 Ml Syringe) 3 ml IVFLUSH QSHIFT [facility] Last Admin: 07/07/21 20:33 Dose: 3 ml Documented by: Time Spent With Patient Time: Total time spent is greater than 50% in coordination of care (as documented) at patient's floor/unit and/or counseling patient: Time with patient: 25 - 35 minutes Procedures Date of Service Date of Service: 07/08/21 Quality Stroke Does the patient have a stroke diagnosis?: No VTE Prior VTE?: No VTE Risk Level:: Medical - moderate - high VTE Device Contraindication: Treatment Not Tolerated VTE Drug Contraindication: N/A - Med Ordered
[2021-07-08] MEDS: Insulin Lispro 100 UNIT/ML 3 ML VIAL SUBCUT ×4 (07:44→20:41)
[2021-07-08] MEDS: amLODIPine Besylate 10 MG TABLET PO (07:45)
[2021-07-08] MEDS: 0.9 % Sodium Chloride Flush 3 ML SYRINGE IVFLUSH ×2 (07:45→20:43)
[2021-07-08] MEDS: lisinopriL 10 MG TABLET PO (07:45)
[2021-07-08] MEDS: Sennosides/Docusate Sodium TABLET 1 TAB PO (07:45)
[2021-07-08] MEDS: Insulin Glargine,Hum.rec.anlog 100 UNIT/ML 10 ML VIAL 20 UNIT SUBCUT ×2 (07:46→20:42)
[2021-07-08] MEDS: Apixaban 5 MG TABLET 10 MG PO ×2 (07:46→20:43)
[2021-07-08] MEDS: Atorvastatin Calcium 40 MG TABLET PO (07:46)
--- NOTE | 2021-07-08 10:56 | P.PNIM_ITS ---
Progress Note: A&P (1) Diabetic foot ulcer: Status: Acute (2) Cellulitis of foot: Status: Acute (3) Sepsis: Status: Acute (4) Hypertension: Status: Acute (5) PAD (peripheral artery disease): Status: Acute (6) Iron deficiency: Status: Acute (7) Diabetes mellitus: Status: Acute Assessment and Plan: This is a 50yo M with DM2, PAD, hx amputation of R 4th toe due to osteomyelitis, admitted with severe sepsis due to rapid development of infected necrotic ulcers on L 4th foot, necrotic bone on aspirate from wound clinic found to have L SFA occlusion with soft plaque concerning for embolic event s/p left transmetatarsal amputation 07/04 secondary to left SFA occlusion with a soft plaque concerning for embolic event BCx negative. leukocytosis starting to trend down pain management vascular following, will monitor healing of foot and determine whether he needs BKA Severe sepsis secondary to DM foot infection/osteomyelitis/abscess Continue vancomycin and zosyn will likely need another week and then transition to oral antibiotics neg blood cx HTN. Blood pressure uncontrolled Lisinoprill 10mg daily, Norvasc 10mg daily DM2, A1c 8.5, uncontrolled sliding scale ADA diet iron deficiency anemia s/p 2U rbc 07/05 with appropriate rise in H/H H/H has remained stable follow CBC will need iron replacement once infection under control; FOBT pending Mild renal insufficiency baseline .8, creatinine has been around 1-1.1 Follow BMP closely while on vancomycin HLD statin DISPO plan is for short term rehabilitation if patient can get [employer] insurance, or home with PT and VNA VTE ppx with [facility] Attending physician Dr. Sandhu Subjective Subjective Date of Service: 07/08/21 Review of Systems Follow up s/p right transmetatarsal amputation Pain is controlled laying in bed good appetite Physical Exam Vital Signs: Vital Signs: Last Vital Signs Temp 97.4 F 07/08/21 07:05 Pulse 82 07/08/21 10:31 Resp 18 07/08/21 07:05 BP 178/97 H 07/08/21 10:31 Pulse Ox 95 07/08/21 10:31 Body Mass Index 30.7 Appearing in no acute distress lung sounds are clear to auscultation heart regular rate rhythm, clear S1, S2 positive bowel sounds, abdomen is soft, nontender neuro patient is alert x3, no focal deficits Dressing to right metatarsal amp intact Objective Data Current Medications Acetaminophen (Acetaminophen 325 Mg Tablet) 650 mg PO Q4H PRN PRN Reason: pain/fever Last Admin: 07/05/21 05:02 Dose: 650 mg Documented by: Al Hydroxide/Mg Hydroxide (Magnesium Hydrox/Alum Hydrox 30 Ml Oral.Susp) 30 ml PO Q4H PRN PRN Reason: Heartburn/Nausea Last Admin: 07/05/21 16:42 Dose: 30 ml Documented by: Amlodipine Besylate (Amlodipine Besylate 10 Mg Tablet) 10 mg PO DAILY [facility]; Protocol Last Admin: 07/08/21 07:45 Dose: 10 mg Documented by: Apixaban (Apixaban 5 Mg Tablet) 10 mg PO BID [facility] Stop: 07/12/21 09:01 Last Admin: 07/08/21 07:46 Dose: 10 mg Documented by: Atorvastatin Calcium (Atorvastatin Calcium 40 Mg Tablet) 40 mg PO DAILY [facility] Last Admin: 07/08/21 07:46 Dose: 40 mg Documented by: Hydromorphone HCl (Hydromorphone Hcl 0.5 Mg/0.5 Ml Syringe) 0.25 mg IVPUSH Q5M PRN; Protocol PRN Reason: Pain, Severe (Pain Scale 7-10) Piperacillin Sod/Tazobactam (Sod 3.375 gm/ Sodium Chloride) 50 mls @ 100 mls/hr IV Q6H [facility] Last Infusion: 07/08/21 08:22 Dose: Infused Documented by: Promethazine HCl 12.5 mg/ (Sodium Chloride) 50.5 mls @ 202 mls/hr IV ONCE PRN PRN Reason: Nausea and Vomiting Vancomycin HCl 1,000 mg/ (Sodium Chloride) 270 mls @ 270 mls/hr IV Q12H [facility] Last Infusion: 07/08/21 03:55 Dose: Infused Documented by: Insulin Glargine (Insulin Glargine,Hum.Rec.Anlog 100 Unit/Ml 10 Ml Vial) 20 unit SUBCUT BID [facility] Last Admin: 07/08/21 07:46 Dose: 20 unit Documented by: Insulin Human Lispro (Insulin Lispro 100 Unit/Ml 3 Ml Vial) 0 unit SUBCUT QIDACHS [facility]; Protocol Last Admin: 07/08/21 07:44 Dose: 2 unit Documented by: Lisinopril (Lisinopril 10 Mg Tablet) 10 mg PO DAILY [facility]; Protocol Last Admin: 07/08/21 07:45 Dose: 10 mg Documented by: Melatonin (Melatonin 3 Mg Tablet) 6 mg PO BEDTIME PRN PRN Reason: Insomnia Ondansetron HCl (Ondansetron Hcl 4 Mg/2 Ml Vial) 4 mg IVPUSH Q8H PRN PRN Reason: nausea/vomiting Last Admin: 07/07/21 14:41 Dose: 4 mg Documented by: Ondansetron HCl (Ondansetron Hcl 4 Mg/2 Ml Vial) 4 mg IVPUSH ONCE PRN PRN Reason: Nausea and Vomiting Oxycodone HCl (Oxycodone Hcl Immed Release 5 Mg Tablet) 5 mg PO Q4H PRN PRN Reason: severe pain Last Admin: 07/03/21 12:37 Dose: 5 mg Documented by: Senna/Docusate Sodium (Sennosides/Docusate Sodium Tablet) 1 tab PO DAILY [facility] Last Admin: 07/08/21 07:45 Dose: 1 tab Documented by: Sodium Chloride (0.9 % Sodium Chloride Flush 3 Ml Syringe) 3 ml IVFLUSH [facility] Last Admin: 07/08/21 07:45 Dose: 3 ml Documented by: Labs CBC & Chem 7: 07/08/21 05:14 07/08/21 05:14 Labs: Laboratory Results - last 24 hr 07/07/21 07/07/21 07/07/21 11:08 16:03 20:23 MCV MCH MCHC RDW Plt Count MPV Absolute Nucleated RBC Nucleated RBC % (auto) Anion Gap Estim Creat Clear Calc Estimated GFR POC Glucose 147 H 138 H 141 H Random Glucose Calcium 07/08/21 07/08/21 07/08/21 05:14 05:14 07:08 MCV 84.5 MCH 27.2 MCHC 32.2 RDW 17.0 H Plt Count 523 H MPV 9.3 L Absolute Nucleated RBC 0.000 Nucleated RBC % (auto) 0.0 Anion Gap 11 L Estim Creat Clear Calc 93.9 Estimated GFR > 60 POC Glucose 135 H Random Glucose 125 H Calcium 8.1 L Microbiology Microbiology Results: Microbiology 07/01/21 18:36 Blood - Venous Blood Culture - Final No growth after 5 days. 07/01/21 18:36 Blood - Venous Blood Culture - Final No growth after 5 days. 06/30/21 03:25 Blood - Arterial Blood Culture - Final No growth after 5 days. 06/30/21 02:15 Blood - Arterial Blood Culture - Final No growth after 5 days. Quality Stroke Does the patient have a stroke diagnosis?: No VTE Prior VTE?: No VTE Risk Level:: Medical - moderate - high VTE Device Contraindication: Treatment Not Tolerated VTE Drug Contraindication: N/A - Med Ordered
[2021-07-08 11:42] LABS: Glucose, Whole Blood 171 mg/dL (60-115)
[2021-07-08 15:00] LABS: Vancomycin Trough 13.6 mcg/mL (10.0-20.0)
--- NOTE | 2021-07-08 15:34 | HE.PHANOTE ---
Vancomycin Consult: Dose was previously decrease to 1000 mg Q12H. Trough decreased to 13.6 which is therapeutic however SCr is improving so that Vanco is clearing more rapidly. With vanco 1000 mg Q12H the expect AUC is 381 which is subtherapeutic. Increase dose 1250mg Q12H. next trough 07/09 @ 1500. Pharmacy will continue to monitor renal function daily. Betzaida Clemons, AlannaD
[2021-07-08 16:26] LABS: Glucose, Whole Blood 158 mg/dL (60-115)
[2021-07-08] MEDS: vancomycin HCL 1,250 MG in 0.9 % Sodium Chloride 250 ML 166.67 MG IV (16:38)
[2021-07-08 20:41] LABS: Glucose, Whole Blood 182 mg/dL (60-115)
[2021-07-09] VITALS (10 sets, daily range): BP systolic 150–173; BP diastolic 86–98; PULSE 78–106; RESP 17–18; TEMP 36.4–36.9; O2SAT 93–97
[2021-07-09] MEDS: Piperacillin Sodium/Tazobactam 3.375 GM in 0.9 % Sodium Chloride 50 ML IV ×2 (02:41→08:12)
[2021-07-09] MEDS: vancomycin HCL 1,250 MG in 0.9 % Sodium Chloride 250 ML 166.67 MG IV ×2 (03:20→16:11)
[2021-07-09 06:13] LABS: Hematocrit 30.2 % (42-52); Mean Corpuscular HGB Conc 33.1 g/dl (31.0-36.0); Mean Corpuscular Hemoglobin 27.6 pg (27.0-33.0); Mean Corpuscular Volume 83.4 fL (80-98); Platelet Count 606 X10*3/uL (160-400); Red Blood Count 3.62 X10*6/uL (4.60-5.80); White Blood Count 15.7 X10*3/uL (4.8-10.8)
[2021-07-09 06:28] LABS: Anion Gap 12 (12-20); Blood Urea Nitrogen 7 mg/dL (9-16); Calcium 8.4 mg/dL (8.4-10.2); Carbon Dioxide 27 mmol/L (22-29); Chloride 103 mmol/L (96-108); Creatinine Clr Calc Pharmacy 94.8; Estimated Glomerular Filt Rate > 60; Glucose Random 123 mg/dL (60-115); Potassium 3.4 mmol/L (3.3-5.1); Sodium 139 mmol/L (135-145)
[2021-07-09 07:32] LABS: Glucose, Whole Blood 129 mg/dL (60-115)
[2021-07-09] MEDS: Apixaban 5 MG TABLET 10 MG PO ×2 (08:09→21:40)
[2021-07-09] MEDS: Sennosides/Docusate Sodium TABLET 1 TAB PO (08:09)
[2021-07-09] MEDS: Atorvastatin Calcium 40 MG TABLET PO (08:10)
[2021-07-09] MEDS: amLODIPine Besylate 10 MG TABLET PO (08:10)
[2021-07-09] MEDS: lisinopriL 10 MG TABLET PO (08:11)
[2021-07-09] MEDS: Insulin Lispro 100 UNIT/ML 3 ML VIAL SUBCUT ×4 (08:12→21:46)
[2021-07-09] MEDS: Insulin Glargine,Hum.rec.anlog 100 UNIT/ML 10 ML VIAL 20 UNIT SUBCUT ×2 (08:13→21:40)
[2021-07-09] MEDS: 0.9 % Sodium Chloride Flush 3 ML SYRINGE IVFLUSH ×3 (08:23→23:36)
--- NOTE | 2021-07-09 10:56 | P.PNIM_ITS ---
Progress Note: A&P (1) Diabetes mellitus: Status: Acute (2) Sepsis: Status: Acute (3) Hypertension: Status: Acute Assessment and Plan: This is a 50yo M with DM2, PAD, hx amputation of R 4th toe due to osteomyelitis, admitted with severe sepsis due to rapid development of infected necrotic ulcers on L 4th foot, necrotic bone on aspirate from wound clinic found to have L SFA occlusion with soft plaque concerning for embolic event s/p left transmetatarsal amputation 07/04 secondary to left SFA occlusion with a soft plaque concerning for embolic event BCx negative. leukocytosis starting to trend down pain management vascular following, will monitor healing of foot and determine whether he needs BKA Severe sepsis secondary to DM foot infection/osteomyelitis/abscess Continue vancomycin and zosyn will likely need another week and then transition to oral antibiotics neg blood cx? HTN. Blood pressure uncontrolled Lisinoprill 10mg daily, Norvasc 10mg daily DM2, A1c 8.5, uncontrolled sliding scale ADA diet iron deficiency anemia s/p 2U rbc 07/05 with appropriate rise in H/H H/H has remained stable follow CBC will need iron replacement once infection under control; FOBT pending Mild renal insufficiency baseline .8, creatinine has been around 1-1.1 Follow BMP closely while on vancomycin HLD statin DISPO plan is for short term rehabilitation if patient can get [facility] insur ance, or home with PT and VNA VTE ppx with [facility] Attending physician Dr. Jain Subjective Subjective Date of Service: 07/09/21 Review of Systems Follow up diabetic foot ulcer s/p transmetatarsal amp No pain today Physical Exam Vital Signs: Vital Signs: Last Vital Signs Temp 97.5 F 07/09/21 07:18 Pulse 88 07/09/21 08:11 Resp 18 07/09/21 07:18 BP 167/96 H 07/09/21 08:11 Pulse Ox 97 07/09/21 07:18 Body Mass Index 30.7 Appearing in no acute distress lung sounds are clear to auscultation heart regular rate rhythm, clear S1, S2 positive bowel sounds, abdomen is soft, nontender neuro patient is alert x3, no focal deficits Objective Data Current Medications Acetaminophen (Acetaminophen 325 Mg Tablet) 650 mg PO Q4H PRN PRN Reason: pain/fever Last Admin: 07/05/21 05:02 Dose: 650 mg Documented by: Al Hydroxide/Mg Hydroxide (Magnesium Hydrox/Alum Hydrox 30 Ml Oral.Susp) 30 ml PO Q4H PRN PRN Reason: Heartburn/Nausea Last Admin: 07/05/21 16:42 Dose: 30 ml Documented by: Amlodipine Besylate (Amlodipine Besylate 10 Mg Tablet) 10 mg PO DAILY [facility]; Protocol Last Admin: 07/09/21 08:10 Dose: 10 mg Documented by: Apixaban (Apixaban 5 Mg Tablet) 10 mg PO BID [facility] Stop: 07/12/21 09:01 Last Admin: 07/09/21 08:09 Dose: 10 mg Documented by: Atorvastatin Calcium (Atorvastatin Calcium 40 Mg Tablet) 40 mg PO DAILY [facility] Last Admin: 07/09/21 08:10 Dose: 40 mg Documented by: Hydromorphone HCl (Hydromorphone Hcl 0.5 Mg/0.5 Ml Syringe) 0.25 mg IVPUSH Q5M PRN; Protocol PRN Reason: Pain, Severe (Pain Scale 7-10) Piperacillin Sod/Tazobactam (Sod 3.375 gm/ Sodium Chloride) 50 mls @ 100 mls/hr IV Q6H [facility] Last Infusion: 07/09/21 08:58 Dose: Infused Documented by: Promethazine HCl 12.5 mg/ (Sodium Chloride) 50.5 mls @ 202 mls/hr IV ONCE PRN PRN Reason: Nausea and Vomiting Vancomycin HCl 1,250 mg/ (Sodium Chloride) 250 mls @ 166.667 mls/hr IV Q12H [facility] Last Infusion: 07/09/21 05:18 Dose: Infused Documented by: Insulin Glargine (Insulin Glargine,Hum.Rec.Anlog 100 Unit/Ml 10 Ml Vial) 20 unit SUBCUT BID [facility] Last Admin: 07/09/21 08:13 Dose: 20 unit Documented by: Insulin Human Lispro (Insulin Lispro 100 Unit/Ml 3 Ml Vial) 0 unit SUBCUT QIDACHS [facility]; Protocol Last Admin: 07/09/21 08:12 Dose: 2 unit Documented by: Lisinopril (Lisinopril 10 Mg Tablet) 10 mg PO DAILY [facility]; Protocol Last Admin: 07/09/21 08:11 Dose: 10 mg Documented by: Melatonin (Melatonin 3 Mg Tablet) 6 mg PO BEDTIME PRN PRN Reason: Insomnia Ondansetron HCl (Ondansetron Hcl 4 Mg/2 Ml Vial) 4 mg IVPUSH Q8H PRN PRN Reason: nausea/vomiting Last Admin: 07/07/21 14:41 Dose: 4 mg Documented by: Ondansetron HCl (Ondansetron Hcl 4 Mg/2 Ml Vial) 4 mg IVPUSH ONCE PRN PRN Reason: Nausea and Vomiting Oxycodone HCl (Oxycodone Hcl Immed Release 5 Mg Tablet) 5 mg PO Q4H PRN PRN Reason: severe pain Last Admin: 07/03/21 12:37 Dose: 5 mg Documented by: Senna/Docusate Sodium (Sennosides/Docusate Sodium Tablet) 1 tab PO DAILY [facility] Last Admin: 07/09/21 08:09 Dose: 1 tab Documented by: Sodium Chloride (0.9 % Sodium Chloride Flush 3 Ml Syringe) 3 ml IVFLUSH QSHIFT [facility] Last Admin: 07/09/21 08:23 Dose: 3 ml Documented by: Labs CBC & Chem 7: 07/09/21 05:59 07/09/21 05:59 Labs: Laboratory Results - last 24 hr 07/08/21 07/08/21 07/08/21 11:21 14:19 16:12 MCV MCH MCHC RDW Plt Count MPV Absolute Nucleated RBC Nucleated RBC % (auto) Anion Gap Estim Creat Clear Calc Estimated GFR POC Glucose 171 H 158 H Random Glucose Calcium Vancomycin Trough 13.6 07/08/21 07/09/21 07/09/21 20:34 05:59 05:59 MCV 83.4 MCH 27.6 MCHC 33.1 RDW 17.0 H Plt Count 606 H MPV 9.0 L Absolute Nucleated RBC 0.000 Nucleated RBC % (auto) 0.0 Anion Gap 12 Estim Creat Clear Calc 94.8 Estimated GFR > 60 POC Glucose 182 H Random Glucose 123 H Calcium 8.4 Vancomycin Trough 07/09/21 07:16 MCV MCH MCHC RDW Plt Count MPV Absolute Nucleated RBC Nucleated RBC % (auto) Anion Gap Estim Creat Clear Calc Estimated GFR POC Glucose 129 H Random Glucose Calcium Vancomycin Trough Microbiology Microbiology Results: Microbiology 07/01/21 18:36 Blood - Venous Blood Culture - Final No growth after 5 days. 07/01/21 18:36 Blood - Venous Blood Culture - Final No growth after 5 days. 06/30/21 03:25 Blood - Arterial Blood Culture - Final No growth after 5 days. 06/30/21 02:15 Blood - Arterial Blood Culture - Final No growth after 5 days. Quality Stroke Does the patient have a stroke diagnosis?: No VTE Prior VTE?: No VTE Risk Level:: Medical - moderate - high VTE Device Contraindication: Treatment Not Tolerated VTE Drug Contraindication: N/A - Med Ordered
--- NOTE | 2021-07-09 11:07 | PC.NURSE ---
Skin/Wound assessment completed. Patient had a left TMA which now has pandya slough ulcer and dark skin with some purulent drainage. Silver alginate applied to wounds covered with gauze and roll gauze. No other skin issues noted at this time.
[2021-07-09 11:50] LABS: Glucose, Whole Blood 209 mg/dL (60-115)
[2021-07-09 15:35] LABS: Vancomycin Trough 16.6 mcg/mL (10.0-20.0)
[2021-07-09 16:51] LABS: Glucose, Whole Blood 175 mg/dL (60-115)
[2021-07-09 20:21] LABS: Glucose, Whole Blood 125 mg/dL (60-115)
[2021-07-10 03:22] VITALS: BP 155/75; PULSE 82; RESP 17; TEMP 36.6; O2SAT 99
[2021-07-10] MEDS: vancomycin HCL 1,250 MG in 0.9 % Sodium Chloride 250 ML 166.67 MG IV ×2 (03:45→17:18)
[2021-07-10 07:41] VITALS: BP 167/105; PULSE 103; RESP 18; TEMP 37.1; O2SAT 98
[2021-07-10 07:55] LABS: Glucose, Whole Blood 223 mg/dL (60-115)
[2021-07-10] MEDS: Insulin Glargine,Hum.rec.anlog 100 UNIT/ML 10 ML VIAL 20 UNIT SUBCUT ×2 (08:13→20:40)
[2021-07-10] MEDS: Insulin Lispro 100 UNIT/ML 3 ML VIAL SUBCUT ×4 (08:13→20:40)
[2021-07-10] MEDS: lisinopriL 10 MG TABLET PO (08:14)
[2021-07-10] MEDS: 0.9 % Sodium Chloride Flush 3 ML SYRINGE IVFLUSH ×2 (08:14→17:17)
[2021-07-10] MEDS: amLODIPine Besylate 10 MG TABLET PO (08:14)
[2021-07-10] MEDS: Atorvastatin Calcium 40 MG TABLET PO (08:14)
[2021-07-10] MEDS: Apixaban 5 MG TABLET 10 MG PO ×2 (08:14→20:39)
[2021-07-10] MEDS: Sennosides/Docusate Sodium TABLET 1 TAB PO (08:14)
[2021-07-10 09:25] LABS: MANUAL DIFF FLAG NO
[2021-07-10 09:28] LABS: Basophils Absolute Auto 0.1 X10*3/uL (0.0-0.2); Basophils Percent Auto 0.3 % (0-2); Eosinophils Absolute Auto 0.2 X10*3/uL (0.0-0.4); Eosinophils Percent Auto 1.7 % (0-4); Hematocrit 33.1 % (42-52); Hemoglobin 10.8 g/dl (14.0-18.0); Imm Gran Abs Auto 0.08 X10*3/uL (0.00-0.03); Imm Gran Pct Auto 0.6 % (0.0-0.4); Lymphocytes Absolute Auto 1.4 X10*3/uL (1.2-4.9); Lymphocytes Percent Auto 9.9 % (20-40); Mean Corpuscular HGB Conc 32.6 g/dl (31.0-36.0); Mean Corpuscular Hemoglobin 27.4 pg (27.0-33.0); Monocytes Absolute Auto 0.9 X10*3/uL (0.1-1.2); Monocytes Percent Auto 6.2 % (2-11); Neutrophils Absolute Auto 11.7 X10*3/uL (2.0-8.3); Neutrophils Percent Auto 81.3 % (45-73); Platelet Count 666 X10*3/uL (160-400); Red Blood Count 3.94 X10*6/uL (4.60-5.80); Red Cell Distribution Width 17.2 % (11.0-16.0); White Blood Count 14.4 X10*3/uL (4.8-10.8)
[2021-07-10 09:42] LABS: Creatinine Clr Calc Pharmacy 97.8; Estimated Glomerular Filt Rate > 60
--- NOTE | 2021-07-10 10:08 | P.PNIM_ITS ---
Progress Note: A&P (1) Diabetes mellitus: Status: Acute (2) Iron deficiency: Status: Acute (3) Sepsis: Status: Acute (4) Hypertension: Status: Acute (5) PAD (peripheral artery disease): Status: Acute Assessment and Plan: This is a 50yo M with DM2, PAD, hx amputation of R 4th toe due to osteomyelitis, admitted with severe sepsis due to rapid development of infected necrotic ulcers on L 4th foot, necrotic bone on aspirate from wound clinic found to have L SFA occlusion with soft plaque concerning for embolic event s/p left transmetatarsal amputation 07/04 secondary to left SFA occlusion with a soft plaque concerning for embolic event BCx negative. leukocytosis starting to trend down pain management wound not healing well vascular following, will monitor healing of foot and determine whether he needs BKA Severe sepsis secondary to DM foot infection/abscess Continue vancomycin, zosyn neg blood cx? HTN. Blood pressure uncontrolled Lisinoprill 10mg daily, Norvasc 10mg daily DM2, A1c 8.5, uncontrolled sliding scale ADA diet iron deficiency anemia s/p 2U rbc 07/05 with appropriate rise in H/H H/H has remained stable follow CBC Mild renal insufficiency. improved baseline .8, creatinine has been around 1-1.1 Follow BMP closely while on vancomycin HLD statin VTE ppx with [facility] Attending physician Dr. Jain Subjective Subjective Date of Service: 07/10/21 Review of Systems Follow up diabetic/vascular wound s/p transmetatarsal amputation No pain Physical Exam Vital Signs: Vital Signs: Last Vital Signs Temp 98.7 F 07/10/21 07:41 Pulse 103 H 07/10/21 07:41 Resp 18 07/10/21 07:41 BP 167/105 H 07/10/21 07:41 Pulse Ox 98 07/10/21 07:41 Body Mass Index 30.7 Appearing in no acute distress lung sounds are clear to auscultation heart regular rate rhythm, clear S1, S2 positive bowel sounds, abdomen is soft, nontender neuro patient is alert x3, no focal deficits Objective Data Current Medications Acetaminophen (Acetaminophen 325 Mg Tablet) 650 mg PO Q4H PRN PRN Reason: pain/fever Last Admin: 07/05/21 05:02 Dose: 650 mg Documented by: Al Hydroxide/Mg Hydroxide (Magnesium Hydrox/Alum Hydrox 30 Ml Oral.Susp) 30 ml PO Q4H PRN PRN Reason: Heartburn/Nausea Last Admin: 07/05/21 16:42 Dose: 30 ml Documented by: Amlodipine Besylate (Amlodipine Besylate 10 Mg Tablet) 10 mg PO DAILY [facility]; Protocol Last Admin: 07/10/21 08:14 Dose: 10 mg Documented by: Apixaban (Apixaban 5 Mg Tablet) 10 mg PO BID [facility] Stop: 07/12/21 09:01 Last Admin: 07/10/21 08:14 Dose: 10 mg Documented by: Atorvastatin Calcium (Atorvastatin Calcium 40 Mg Tablet) 40 mg PO DAILY [facility] Last Admin: 07/10/21 08:14 Dose: 40 mg Documented by: Promethazine HCl 12.5 mg/ (Sodium Chloride) 50.5 mls @ 202 mls/hr IV ONCE PRN PRN Reason: Nausea and Vomiting Vancomycin HCl 1,250 mg/ (Sodium Chloride) 250 mls @ 166.667 mls/hr IV Q12H [facility] Last Infusion: 07/10/21 05:27 Dose: Infused Documented by: Insulin Glargine (Insulin Glargine,Hum.Rec.Anlog 100 Unit/Ml 10 Ml Vial) 20 unit SUBCUT BID [facility] Last Admin: 07/10/21 08:13 Dose: 20 unit Documented by: Insulin Human Lispro (Insulin Lispro 100 Unit/Ml 3 Ml Vial) 0 unit SUBCUT QIDACHS [facility]; Protocol Last Admin: 07/10/21 08:13 Dose: 6 unit Documented by: Lisinopril (Lisinopril 10 Mg Tablet) 10 mg PO DAILY [facility]; Protocol Last Admin: 07/10/21 08:14 Dose: 10 mg Documented by: Melatonin (Melatonin 3 Mg Tablet) 6 mg PO BEDTIME PRN PRN Reason: Insomnia Ondansetron HCl (Ondansetron Hcl 4 Mg/2 Ml Vial) 4 mg IVPUSH Q8H PRN PRN Reason: nausea/vomiting Last Admin: 07/07/21 14:41 Dose: 4 mg Documented by: Ondansetron HCl (Ondansetron Hcl 4 Mg/2 Ml Vial) 4 mg IVPUSH ONCE PRN PRN Reason: Nausea and Vomiting Oxycodone HCl (Oxycodone Hcl Immed Release 5 Mg Tablet) 5 mg PO Q4H PRN PRN Reason: severe pain Last Admin: 07/03/21 12:37 Dose: 5 mg Documented by: Senna/Docusate Sodium (Sennosides/Docusate Sodium Tablet) 1 tab PO DAILY [facility] Last Admin: 07/10/21 08:14 Dose: 1 tab Documented by: Sodium Chloride (0.9 % Sodium Chloride Flush 3 Ml Syringe) 3 ml IVFLUSH QSHIFT [facility] Last Admin: 07/10/21 08:14 Dose: 3 ml Documented by: Labs CBC & Chem 7: 07/10/21 08:49 07/10/21 08:49 Labs: Laboratory Results - last 24 hr 07/09/21 07/09/21 07/09/21 11:32 14:46 16:19 MCV MCH MCHC RDW Plt Count MPV Immature Gran % (Auto) Neut % (Auto) Lymph % (Auto) Wake % (Auto) Eos % (Auto) Baso % (Auto) Lymph # (Auto) Wake # (Auto) Eos # (Auto) Baso # (Auto) Abs Immat Gran (auto) Absolute Neuts (auto) Absolute Nucleated RBC Nucleated RBC % (auto) Estim Creat Clear Calc Estimated GFR POC Glucose 209 H 175 H Vancomycin Trough 16.6 07/09/21 07/10/21 07/10/21 20:16 07:40 08:49 MCV MCH MCHC RDW Plt Count MPV Immature Gran % (Auto) Neut % (Auto) Lymph % (Auto) Wake % (Auto) Eos % (Auto) Baso % (Auto) Lymph # (Auto) Wake # (Auto) Eos # (Auto) Baso # (Auto) Abs Immat Gran (auto) Absolute Neuts (auto) Absolute Nucleated RBC Nucleated RBC % (auto) Estim Creat Clear Calc 97.8 Estimated GFR > 60 POC Glucose 125 H 223 H Vancomycin Trough 07/10/21 08:49 MCV 84.0 MCH 27.4 MCHC 32.6 RDW 17.2 H Plt Count 666 H MPV 9.0 L Immature Gran % (Auto) 0.6 H Neut % (Auto) 81.3 H Lymph % (Auto) 9.9 L Wake % (Auto) 6.2 Eos % (Auto) 1.7 Baso % (Auto) 0.3 Lymph # (Auto) 1.4 Wake # (Auto) 0.9 Eos # (Auto) 0.2 Baso # (Auto) 0.1 Abs Immat Gran (auto) 0.08 H Absolute Neuts (auto) 11.7 H Absolute Nucleated RBC 0.000 Nucleated RBC % (auto) 0.0 Estim Creat Clear Calc Estimated GFR POC Glucose Vancomycin Trough Microbiology Microbiology Results: Microbiology 07/01/21 18:36 Blood - Venous Blood Culture - Final No growth after 5 days. 07/01/21 18:36 Blood - Venous Blood Culture - Final No growth after 5 days. 06/30/21 03:25 Blood - Arterial Blood Culture - Final No growth after 5 days. 06/30/21 02:15 Blood - Arterial Blood Culture - Final No growth after 5 days. Quality Stroke Does the patient have a stroke diagnosis?: No VTE Prior VTE?: No VTE Risk Level:: Medical - moderate - high VTE Device Contraindication: Treatment Not Tolerated VTE Drug Contraindication: N/A - Med Ordered
[2021-07-10] MEDS: Piperacillin Sodium/Tazobactam 3.375 GM in 0.9 % Sodium Chloride 50 ML IV ×2 (11:33→20:39)
--- NOTE | 2021-07-10 11:38 | P.CNHO_ITS ---
Subjective - Subjective Chief complaint: CONSULT FOR: 1. Thrombocytosis. 2. Leukocytosis. Patient: new to practice Consult date: 07/10/21 Requesting Physician: Serina Saul Primary Care Provider: Unknown Physician Medical Summary: DIAGNOSIS: LEUKOCYTOSIS. THROMBOCYTOSIS. HPI - Consult Narrative Reason for consult: Consult for: Thrombocytosis. 2. Leukocytosis. Narrative: Irving Barry is a pleasant 50 year old gentleman who presented on 07/05: With uncontrolled diabetes complicated by diabetic foot ulcer and osteomylitis of right 4th toe. This was amputated in october after he failed group home antibotics. He presented with pain, purple discolorization of the left 4th toe with foul smelling drainage. He has ulcers of the plantar aspect of the foot that appear chronic. He claims that everything happened overnight. 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 On presentation on 07/05 WBC 22.5, HGB 6.7, HCT 20.4, PLT 366. On 07/06: WBC 18.9, HGB 8.9, HCT 26.9, PLT 425. On 07/07: WBC 16.9, HGB 9.3, HCT 28.3, PLT 495. On 07/08: WBC 15.3, HGB 9.5, HCT 29.5, PLT 523. On 07/09: WBC 15.7, HGB 10, HCT 30.2, PLT 606. On 07/10: WBC 14.4, HGB 10.8, HCT 33.1, PLT 666. ROS: Patient feels rather fatigued. He had fevers initially. Now they are subsided. Her appetite is low. He has lost weight. Denies headache no dizziness. No chest pain or trouble breathing. Denies abdominal pain nausea vomiting heartburn indigestion. Bowels are working without any gross blood in it. Denies dysuria or hematuria. He does have pain in his feet. No focal weakness. He is depressed. He has foot ulcers and osteomyelitis. Review of Systems - Constitutional Reports system reviewed and no additional complaints, except as documented, Reports body ache(s), Reports fatigue, Reports fever(s), Reports headache(s), Reports lack of energy, Reports malaise, Reports weakness - Eyes Reports system reviewed and no additional complaints, except as documented, Denies blurry vision - ENT Reports system reviewed and no additional complaints, except as documented - Cardiovascular Reports system reviewed and no additional complaints, except as documented, Denies chest pain at rest, Denies shortness of breath causing sudden awakening - Respiratory Reports no additional respiratory complaints, Denies change in phlegm color - Gastrointestinal Reports system reviewed and no additional complaints, except as documented, Denies abdominal pain, Denies diarrhea, Denies nausea - Genitourinary Genitourinary: Reports no additional male genitourinary complaints, Denies blood in urine - Musculoskeletal Reports system reviewed and no additional complaints, except as documented, Reports back pain, Reports body aches - Integumentary/Breasts Skin/Breast: Reports no additional skin complaints - Neurologic Reports hearing normal, Denies abnormal gait - Psychiatric Reports system reviewed and no additional complaints, except as documented, Reports anxiety - Endocrine Reports no additional endocrine complaints, Denies excessive sweating - Hematologic/Lymphatic Reports system reviewed and no additional complaints, except as documented, Denies easy bleeding - Allergic/Immunologic Reports system reviewed and no additional complaints, except as documented, Denies GI upset with certain foods Oncology Screenings - ECOG Performance Status ECOG Performance Status: 1 [facility] Medical History: Medical History (Last Updated 07/06/21 @ 11:59 by OLGA LIDIA Ramsey) Bacteremia Diabetes Diabetic foot ulcer Gangrene of toe of left foot GERD (gastroesophageal reflux disease) History of angiography PAD (peripheral artery disease) PICC (peripherally inserted central catheter) in place Functional capacity: uses cane/walker Patient : No Family History: Family History (Last Reviewed 07/04/21 @ 12:04 by Howard Beyer MD) Other Diabetes Surgical History: Surgical History (Last Reviewed 07/04/21 @ 12:04 by Howard Beyer MD) Amputated toe of right foot Onset Date: 11/05/20 Social History: Social History (Last Reviewed 07/04/21 @ 12:04 by Howard Beyer MD) Living Situation History: Household Members: Significant Other Household Members: Other Housing: House Do you presently have visiting nurse or other home services: No Alcohol History: Alcohol intake: never Alcohol History Details: Alcohol intake frequency: holiday/special occasion Tobacco History: Patient Tobacco Use Status: Current everyday Tobacco Tobacco use type: Cigarette Years Smoked: 15 Second Hand Smoke Exposure: No Occupation Assessmet: service: No Current occupational status: employed Home Medications and Allergies Current Medications: Current Medications Acetaminophen (Acetaminophen 325 Mg Tablet) 650 mg PO Q4H PRN PRN Reason: pain/fever Last Admin: 07/05/21 05:02 Dose: 650 mg Documented by: Al Hydroxide/Mg Hydroxide (Magnesium Hydrox/Alum Hydrox 30 Ml Oral.Susp) 30 ml PO Q4H PRN PRN Reason: Heartburn/Nausea Last Admin: 07/05/21 16:42 Dose: 30 ml Documented by: Amlodipine Besylate (Amlodipine Besylate 10 Mg Tablet) 10 mg PO DAILY [facility]; Protocol Last Admin: 07/10/21 08:14 Dose: 10 mg Documented by: Apixaban (Apixaban 5 Mg Tablet) 10 mg PO BID [facility] Stop: 07/12/21 09:01 Last Admin: 07/10/21 08:14 Dose: 10 mg Documented by: Atorvastatin Calcium (Atorvastatin Calcium 40 Mg Tablet) 40 mg PO DAILY [facility] Last Admin: 07/10/21 08:14 Dose: 40 mg Documented by: Promethazine HCl 12.5 mg/ (Sodium Chloride) 50.5 mls @ 202 mls/hr IV ONCE PRN PRN Reason: Nausea and Vomiting Vancomycin HCl 1,250 mg/ (Sodium Chloride) 250 mls @ 166.667 mls/hr IV Q12H [facility] Last Infusion: 07/10/21 05:27 Dose: Infused Documented by: Piperacillin Sod/Tazobactam (Sod 3.375 gm/ Sodium Chloride) 50 mls @ 100 mls/hr IV Q6H [facility] Insulin Glargine (Insulin Glargine,Hum.Rec.Anlog 100 Unit/Ml 10 Ml Vial) 20 unit SUBCUT BID [facility] Last Admin: 07/10/21 08:13 Dose: 20 unit Documented by: Insulin Human Lispro (Insulin Lispro 100 Unit/Ml 3 Ml Vial) 0 unit SUBCUT QIDACHS [facility]; Protocol Last Admin: 07/10/21 08:13 Dose: 6 unit Documented by: Lisinopril (Lisinopril 10 Mg Tablet) 10 mg PO DAILY [facility]; Protocol Last Admin: 07/10/21 08:14 Dose: 10 mg Documented by: Melatonin (Melatonin 3 Mg Tablet) 6 mg PO BEDTIME PRN PRN Reason: Insomnia Ondansetron HCl (Ondansetron Hcl 4 Mg/2 Ml Vial) 4 mg IVPUSH Q8H PRN PRN Reason: nausea/vomiting Last Admin: 07/07/21 14:41 Dose: 4 mg Documented by: Ondansetron HCl (Ondansetron Hcl 4 Mg/2 Ml Vial) 4 mg IVPUSH ONCE PRN PRN Reason: Nausea and Vomiting Oxycodone HCl (Oxycodone Hcl Immed Release 5 Mg Tablet) 5 mg PO Q4H PRN PRN Reason: severe pain Last Admin: 07/03/21 12:37 Dose: 5 mg Documented by: Senna/Docusate Sodium (Sennosides/Docusate Sodium Tablet) 1 tab PO DAILY [facility] Last Admin: 07/10/21 08:14 Dose: 1 tab Documented by: Sodium Chloride (0.9 % Sodium Chloride Flush 3 Ml Syringe) 3 ml IVFLUSH QSHIFT [facility] Last Admin: 07/10/21 08:14 Dose: 3 ml Documented by: Home Medications Medication Instructions Recorded Confirmed Type metformin 1,000 mg tablet 1 tab PO BID 10/31/20 06/30/21 History blood sugar diagnostic #10 ea 11/20/20 06/30/21 History pen needle, diabetic 32 gauge x #50 ea 11/20/20 06/30/21 History 5/32 atorvastatin 40 mg tablet 1 tab PO DAILY 06/30/21 06/30/21 History insulin glargine 100 unit/mL (3 15 unit SUBCUT BID 06/30/21 06/30/21 History mL) subcutaneous pen (Basaglar JackiePen U-100 Insulin) Allergies Allergy/AdvReac Type Severity Reaction Status Date / Time No Known Allergies Allergy Verified 02/26/21 13:01 Physical Exam Vital signs: Vital Signs Temp 98.7 F 07/10/21 07:41 Pulse 103 H 07/10/21 07:41 Resp 18 07/10/21 07:41 BP 167/105 H 07/10/21 07:41 Pulse Ox 98 07/10/21 07:41 Intake & Output 07/09/21 07/10/21 07/10/21 18:59 06:59 18:59 Intake Total 1020 / 1370 350 / 1370 Output Total 900 / 3150 2250 / 3150 Balance 120 / -1780 -1900 / -1780 Urine Output (Average ml/kg/hr) 0.87 2.18 Intake: Intake, Oral Amount 720 / 820 100 / 820 Intake, IV Amount 300 / 550 250 / 550 Piperacillin Sodium/Tazobactam 50 / 50 3.375 gm In 0.9 % Sodium Chloride 50 ml @ 100 mls/hr IV Q6H [facility] Rx#:[id number] vancomycin HCL 1,250 mg In 0.9 250 / 500 250 / 500 % Sodium Chloride 250 ml @ 166. 667 mls/hr IV Q12H [facility] Rx#: [id number] Output: Output, Urine Amount 900 / 3150 2250 / 3150 Other: Breakfast % Eaten 100% Lunch % Eaten 100% Urine Urinal Urinal Urine Color Yellow Yellow Weight 86.183 kg - Constitutional Present: mild distress - Routine HEENT Exam Head: Present: normal inspection Eye: Present: normal appearance ENT: Present: mucous membranes moist - Routine Neck Exam Present: supple - Routine Respiratory Exam Present: CTAB - Routine Cardiovascular Exam Cardiovascular: Present: RRR, S1, S2 - Routine Abdominal Exam Present: nontender - Routine Extremities Exam Present: pedal edema, tenderness. Absent: calf tenderness - Routine Skin Exam Present: intact Hem/Onc Consult Result - Labs CBC & Chem 7: 07/11/21 05:16 07/12/21 05:58 Labs: Short CBC 07/10/21 Range/Units 08:49 WBC 14.4 H (4.8-10.8) X10*3/uL Hgb 10.8 L (14.0-18.0) g/dl Hct 33.1 L (42-52) % Plt Count 666 H (160-400) X10*3/uL BMP 07/10/21 08:49 Creatinine 0.95 Assessment and Plan Patient Active problem list reviewed?: Yes (1) Thrombocytosis Status: Acute Assessment and plan: This is a pleasant 50-year-old gentleman who presented with osteomyelitis of his foot. He was noted to have anemia, leukocytosis and thrombocytosis. His anemia was consistent with anemia of chronic disease picture. He was given blood transfusion which helped. His WBC count on presentation was 22. It has been steadily coming down now down to 12. Baseline platelets were a bit high however, they had normalized up until 07/05. Then started creeping up. Went up to 666. Now declining to 619. This indicates a reactive picture. Most likely indicative of acute infection. Differential diagnosis: 2. Essential thrombocytosis: Less likely. PLAN: Will check JAK2 mutation to completely rule it out. Continue treatment for his osteomyelitis, as his infection gets controlled should help bring the counts down as well. Continue to monitor his blood counts. Thank you for this consult. I will follow along with you, CC: Discharge summary: MRI left foot osteomyelitis with abscess and soft tissue gas. He underwent left transmetatarsal amputation 07/04. His BCx have remained negative. The amputation site does not appear to be healing adequately at this time. F urther amputation was discussed with the patient however he has declined at this time. He is eager to be discharged and returned home and is considering a 2nd opinion. He was seen by infectious diseases and does not require long-term antibiotics as the site of infection has been removed. He will be discharged home with 10 days of doxycycline and Augmentin. He should follow-up in [facility] and with vascular surgery in the next 1 week. Both he and his has been educated on changing his dressing daily and have been given supplies to last until his wound care center appointment. Leukocytosis has been trending down. - Time Spent With Patient Time Spent with Patient (in minutes): 25
[2021-07-10 11:58] LABS: Glucose, Whole Blood 318 mg/dL (60-115)
[2021-07-10 12:00] VITALS: BP 156/86; PULSE 104; RESP 18; TEMP 37.3; O2SAT 97
[2021-07-10 12:23] LABS: Band Neutrophils Percent 5 % (3-5); Lymphocytes Absolute Manual 1.3 X10*3/uL (0.6-4.8); Lymphocytes Percent Manual 9 % (20-40); Monocytes Absolute Manual 0.1 X10*3/uL (0.0-1.2); Monocytes Percent Manual 1 % (2-11); Neutrophils Percent Manual 85 % (45-73)
[2021-07-10 12:24] LABS: Lactate Dehydrogenase 227 U/L (118-273)
[2021-07-10 12:25] LABS: Acanthocytes 2+ (3-5) /OIF; RBC Morphology NOTED
[2021-07-10 12:26] LABS: Ovalocytes 1+ (5-14) /OIF; Platelet Estimate INCREASED (NORMAL); Schistocytes 1+ (0-2) /OIF
[2021-07-10 12:27] LABS: Platelet Morphology Comment NORMAL; Spherocytes 1+ (0-2) /OIF
--- NOTE | 2021-07-10 14:00 | P.CDIC_ITS ---
CDI Concurrent Query Documentation Clarification: PHYSICIAN'S DOCUMENTATION REQUEST Date of Query: 07/10/21 1400 Patient Name: Irving Barry Admit Date: 06/30/21 Dear Doctor, A review of the medical record indicates additional documentation may be needed. Please review below and update the documentation accordingly. Clinical Indicators: Documentation on 07/09/21 indicates Osteomyelitis. Risk Factors/Clinical Indicators/Treatments Per MRI findings on 07/02/21: MR/MR foot LT wo/w con IMPRESSION: Plantar wound at the level of the fourth metatarsal head extends to the depth of the joint capsule. An elongated, gas-containing complex abscess is present in the plantar soft tissues around the plantar fascia, tracking proximally in the foot at the proximal border of the study. Additional soft tissue gas is present around the third MTP joints, also most pronounced at the fourth MTP joint. No evidence of osteomyelitis. Based on the above, please clarify in the Progress Notes further specificity regarding the type of Osteomyelitis. Also include specific site with laterality and known or suspected infectious agent: * Acute osteomyelitis * Acute hematogenous osteomyelitis * Subacute osteomyelitis * Chronic osteomyelitis * Chronic hemotogenous osteomyelitis * Chronis multifocal osteomyelitis * Chronic osteomyelitis with draining sinus * Cornell's abscess * Osteomyelitis * Periostitis without osteomyelitis * Other (please specify) * Unable to determine Use of terms such as suspected, likely, concern for, or probable (associated with a specific diagnosis that is being evaluated, monitored, or treated as if it exists) are acceptable and can be coded in the inpatient setting, when documented at the time of discharge. Thank you, Doreen Granados RN Extension: [phone] Please use your independent medical judgment in providing your response. THIS QUERY IS PART OF THE PERMANENT MEDICAL RECORD
[2021-07-10 15:27] VITALS: BP 162/86; PULSE 94; RESP 17; TEMP 36.7; O2SAT 99
[2021-07-10 16:35] LABS: Glucose, Whole Blood 180 mg/dL (60-115)
[2021-07-10 19:09] VITALS: BP 113/68; PULSE 99; RESP 16; TEMP 37.1; O2SAT 97
[2021-07-10 20:17] LABS: Glucose, Whole Blood 177 mg/dL (60-115)
[2021-07-10] MEDS: ondansetron HCL 4 MG/2 ML VIAL IVPUSH (20:39)
[2021-07-11] VITALS (12 sets, daily range): BP systolic 114–191; BP diastolic 75–98; PULSE 79–100; RESP 16–18; TEMP 36.3–37.2; O2SAT 96–100
[2021-07-11 03:11] LABS: Vancomycin Trough 17.9 mcg/mL (10.0-20.0)
[2021-07-11] MEDS: Piperacillin Sodium/Tazobactam 3.375 GM in 0.9 % Sodium Chloride 50 ML IV ×2 (03:37→11:57)
[2021-07-11] MEDS: 0.9 % Sodium Chloride Flush 3 ML SYRINGE IVFLUSH ×4 (03:39→21:27)
[2021-07-11] MEDS: vancomycin HCL 1,250 MG in 0.9 % Sodium Chloride 250 ML 166.67 MG IV (04:57)
[2021-07-11 05:41] LABS: Hematocrit 29.8 % (42-52); Hemoglobin 9.7 g/dl (14.0-18.0); Mean Corpuscular HGB Conc 32.6 g/dl (31.0-36.0); Mean Corpuscular Hemoglobin 27.3 pg (27.0-33.0); Mean Corpuscular Volume 83.9 fL (80-98); Mean Platelet Volume 8.8 fL (9.4-12.4); Platelet Count 619 X10*3/uL (160-400); Red Blood Count 3.55 X10*6/uL (4.60-5.80); Red Cell Distribution Width 17.1 % (11.0-16.0); White Blood Count 12.8 X10*3/uL (4.8-10.8)
[2021-07-11 06:08] LABS: Anion Gap 14 (12-20); Blood Urea Nitrogen 9 mg/dL (9-16); Calcium 8.3 mg/dL (8.4-10.2); Carbon Dioxide 25 mmol/L (22-29); Chloride 102 mmol/L (96-108); Creatinine Clr Calc Pharmacy 93.9; Estimated Glomerular Filt Rate > 60; Glucose Random 200 mg/dL (60-115); Potassium 3.7 mmol/L (3.3-5.1); Sodium 137 mmol/L (135-145)
[2021-07-11 07:24] LABS: Glucose, Whole Blood 176 mg/dL (60-115)
[2021-07-11] MEDS: Apixaban 5 MG TABLET 10 MG PO ×2 (07:44→21:26)
[2021-07-11] MEDS: amLODIPine Besylate 10 MG TABLET PO (07:45)
[2021-07-11] MEDS: Atorvastatin Calcium 40 MG TABLET PO (07:45)
[2021-07-11] MEDS: Insulin Glargine,Hum.rec.anlog 100 UNIT/ML 10 ML VIAL 20 UNIT SUBCUT ×2 (07:46→21:27)
[2021-07-11] MEDS: Sennosides/Docusate Sodium TABLET 1 TAB PO (07:46)
[2021-07-11] MEDS: Insulin Lispro 100 UNIT/ML 3 ML VIAL SUBCUT ×4 (07:48→21:27)
--- NOTE | 2021-07-11 10:08 | P.PNIM_ITS ---
Subjective Subjective Date of Service: 07/11/21 Interval History: seen and examined this morning follow up for left foot infection no pain tolerating diet, no nausea or vomiting Review of Systems Review of Systems: Yes all other systems are reviewed and are negative Constitutional Constitutional: Denies chills and Denies fever(s) Cardiovascular Cardiovascular: Denies chest pain Respiratory Respiratory: Denies cough Gastrointestinal Gastrointestinal: Denies abdominal pain Physical Exam Vital Signs: Vital Signs: Last Vital Signs Temp 97.4 F 07/11/21 07:17 Pulse 83 07/11/21 07:45 Resp 18 07/11/21 07:17 BP 181/88 H 07/11/21 07:45 Pulse Ox 96 07/11/21 07:17 Body Mass Index 30.7 Const: Nutritional Appearance: well nourished Orientation/consciousness: patient oriented x3 HENMT: Head: Yes normocephalic and Yes atraumatic Eyes: Sclerae: sclerae normal Chest: Chest palpation & inspection: normal inspection of the chest Resp: Effort & Inspection: normal respiratory effort and no respiratory distress Auscultation: clear to auscultation bilaterally Cardio: Rate: regular rate Rhythm: regular rhythm GI: Palpation (GI): Soft to palpation and nontender Neuro: General: patient oriented x3 Cranial nerves: Yes CN's II-XII intact bilaterally and Yes Bilaterally intact EOM present Extrem: Other: left foot wrapped in c/d/i bandage; offloading boot Objective Data Active Medications Acetaminophen (Acetaminophen 325 Mg Tablet) 650 mg PO Q4H PRN PRN Reason: pain/fever Last Admin: 07/05/21 05:02 Dose: 650 mg Documented by: SHAQUILLE Al Hydroxide/Mg Hydroxide (Magnesium Hydrox/Alum Hydrox 30 Ml Oral.Susp) 30 ml PO Q4H PRN PRN Reason: Heartburn/Nausea Last Admin: 07/05/21 16:42 Dose: 30 ml Documented by: JACKELINE Amlodipine Besylate (Amlodipine Besylate 10 Mg Tablet) 10 mg PO DAILY [facility]; Protocol Last Admin: 07/11/21 07:45 Dose: 10 mg Documented by: CASEY Apixaban (Apixaban 5 Mg Tablet) 10 mg PO BID [facility] Stop: 07/12/21 09:01 Last Admin: 07/11/21 07:44 Dose: 10 mg Documented by: CASEY Atorvastatin Calcium (Atorvastatin Calcium 40 Mg Tablet) 40 mg PO DAILY [facility] Last Admin: 07/11/21 07:45 Dose: 40 mg Documented by: CASEY Promethazine HCl 12.5 mg/ (Sodium Chloride) 50.5 mls @ 202 mls/hr IV ONCE PRN PRN Reason: Nausea and Vomiting Vancomycin HCl 1,250 mg/ (Sodium Chloride) 250 mls @ 166.667 mls/hr IV Q12H [facility] Last Infusion: 07/11/21 06:40 Dose: 0 mls/hr Documented by: NAZIA Piperacillin Sod/Tazobactam (Sod 3.375 gm/ Sodium Chloride) 50 mls @ 100 mls/hr IV Q6H [facility] Last Infusion: 07/11/21 04:27 Dose: 0 mls/hr Documented by: NAZIA Insulin Glargine (Insulin Glargine,Hum.Rec.Anlog 100 Unit/Ml 10 Ml Vial) 20 unit SUBCUT BID [facility] Last Admin: 07/11/21 07:46 Dose: 20 unit Documented by: CASEY Insulin Human Lispro (Insulin Lispro 100 Unit/Ml 3 Ml Vial) 0 unit SUBCUT QIDACHS [facility]; Protocol Last Admin: 07/11/21 07:48 Dose: 4 unit Documented by: CASEY Lisinopril (Lisinopril 10 Mg Tablet) 10 mg PO DAILY [facility]; Protocol Last Admin: 07/10/21 08:14 Dose: 10 mg Documented by: JACKELINE Melatonin (Melatonin 3 Mg Tablet) 6 mg PO BEDTIME PRN PRN Reason: Insomnia Ondansetron HCl (Ondansetron Hcl 4 Mg/2 Ml Vial) 4 mg IVPUSH Q8H PRN PRN Reason: nausea/vomiting Last Admin: 07/10/21 20:39 Dose: 4 mg Documented by: NAZIA Ondansetron HCl (Ondansetron Hcl 4 Mg/2 Ml Vial) 4 mg IVPUSH ONCE PRN PRN Reason: Nausea and Vomiting Oxycodone HCl (Oxycodone Hcl Immed Release 5 Mg Tablet) 5 mg PO Q4H PRN PRN Reason: severe pain Last Admin: 07/03/21 12:37 Dose: 5 mg Documented by: HO.VENL Senna/Docusate Sodium (Sennosides/Docusate Sodium Tablet) 1 tab PO DAILY [facility] Last Admin: 07/11/21 07:46 Dose: 1 tab Documented by: CASEY Sodium Chloride (0.9 % Sodium Chloride Flush 3 Ml Syringe) 3 ml IVFLUSH QSHIFT [facility] Last Admin: 07/11/21 03:39 Dose: 3 ml Documented by: NAZIA Labs CBC & Chem 7: 07/11/21 05:16 07/11/21 05:16 Labs: Laboratory Results - last 24 hr 07/10/21 07/10/21 07/10/21 08:49 08:49 11:35 MCV MCH MCHC RDW Plt Count MPV Absolute Nucleated RBC Nucleated RBC % (auto) Neutrophils % (Manual) 85 H Band Neutrophils % 5 Lymphocytes % (Manual) 9 L Monocytes % (Manual) 1 L Abs Neuts (Manual) 13.0 H Lymphocytes # (Manual) 1.3 Monocytes # (Manual) 0.1 Platelet Estimate INCREASED Plt Morphology Comment NORMAL RBC Morphology NOTED Spherocytes 1+ (0-2) Ovalocytes 1+ (5-14) Acanthocytes (Spur) 2+ (3-5) Schistocytes 1+ (0-2) Anion Gap Estim Creat Clear Calc Estimated GFR POC Glucose 318 H Random Glucose Calcium Lactate Dehydrogenase 227 Vancomycin Trough 07/10/21 07/10/21 07/11/21 16:21 19:58 02:37 MCV MCH MCHC RDW Plt Count MPV Absolute Nucleated RBC Nucleated RBC % (auto) Neutrophils % (Manual) Band Neutrophils % Lymphocytes % (Manual) Monocytes % (Manual) Abs Neuts (Manual) Lymphocytes # (Manual) Monocytes # (Manual) Platelet Estimate Plt Morphology Comment RBC Morphology Spherocytes Ovalocytes Acanthocytes (Spur) Schistocytes Anion Gap Estim Creat Clear Calc Estimated GFR POC Glucose 180 H 177 H Random Glucose Calcium Lactate Dehydrogenase Vancomycin Trough 17.9 07/11/21 07/11/21 07/11/21 05:16 05:16 07:03 MCV 83.9 MCH 27.3 MCHC 32.6 RDW 17.1 H Plt Count 619 H MPV 8.8 L Absolute Nucleated RBC 0.000 Nucleated RBC % (auto) 0.0 Neutrophils % (Manual) Band Neutrophils % Lymphocytes % (Manual) Monocytes % (Manual) Abs Neuts (Manual) Lymphocytes # (Manual) Monocytes # (Manual) Platelet Estimate Plt Morphology Comment RBC Morphology Spherocytes Ovalocytes Acanthocytes (Spur) Schistocytes Anion Gap 14 Estim Creat Clear Calc 93.9 Estimated GFR > 60 POC Glucose 176 H Random Glucose 200 H D Calcium 8.3 L Lactate Dehydrogenase Vancomycin Trough Assessment and Plan (1) Diabetic foot ulcer: Status: Acute (2) Iron deficiency: Status: Acute (3) Diabetes mellitus: Status: Acute Assessment and Plan: This is a 50yo M with DM2, PAD, hx amputation of R 4th toe due to osteomyelitis, admitted with severe sepsis due to rapid development of infected necrotic ulcers on L 4th foot, necrotic bone on aspirate from wound clinic found to have L SFA occlusion with soft plaque concerning for embolic event DM foot infection/acute osteomyelitis/abscess left foot s/p left transmetatarsal amputation 07/04 BCx negative. 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 Initially treated with therapeutic lovenox transitioned to Eliquis for AC Severe sepsis secondary to DM foot infection/abscess Continue vancomycin, zosyn neg blood cx? HTN. Blood pressure uncontrolled Lisinoprill 10mg daily, Norvasc 10mg daily DM2, A1c 8.5, uncontrolled sliding scale ADA diet iron deficiency anemia s/p 2U rbc 07/05 with appropriate rise in H/H H/H has remained stable follow CBC Mild renal insufficiency. improved Follow BMP closely while on vancomycin HLD statin VTE ppx with eliquis Attending physician Dr. Jain Quality Stroke Does the patient have a stroke diagnosis?: No VTE Prior VTE?: No VTE Risk Level:: Medical - moderate - high VTE Device Contraindication: Treatment Not Tolerated VTE Drug Contraindication: N/A - Med Ordered
[2021-07-11 12:00] LABS: Glucose, Whole Blood 230 mg/dL (60-115)
[2021-07-11] MEDS: lisinopriL 10 MG TABLET PO ×2 (12:02→13:15)
--- NOTE | 2021-07-11 13:11 | P.PNVS_ITS ---
Subjective Subjective Date of Service: 07/11/21 Patient reports: no new complaints, feels better and pain is less Interval history: 50-year-old diabetic gentleman status post endovascular intervention and transmetatarsal amputation now for routine vascular follow-up. He had been on IV antibiotics and his white count continues to trend down. He appears to be doing relatively well in terms of pain and discomfort. He continues to have this nonhealing transmetatarsal amputation. He is now for follow-up. Physical Exam Vital Signs: Vital Signs: Last Vital Signs Temp 97.4 F 07/11/21 11:31 Pulse 96 07/11/21 11:31 Resp 18 07/11/21 11:31 BP 191/98 H 07/11/21 11:31 Pulse Ox 99 07/11/21 11:31 Body Mass Index 30.7 Const: General: cooperative, healthy appearing and no acute distress Orientation/consciousness: oriented to person, oriented to place and oriented to time HENMT: Head: Yes normal to inspection Neck: Carotids: no bruits Chest: Chest palpation & inspection: normal inspection of the chest Resp: Effort & Inspection: normal respiratory effort and able to speak in complete sentences Auscultation: clear to auscultation bilaterally Cardio: Rate: regular rate Heart sounds: S1 normal heart sound present and S2 normal heart sound present GI: Inspection: Yes normal to inspection Skin: General skin exam: no rashes or lesions noted Wounds: amputation site (Left side trans met amp central body area poorly healing) Neuro: General: oriented to person, oriented to place, oriented to time and CN's II-XI intact bilaterally Extrem: General: Yes normal to inspection, Yes full ROM and Yes no clubbing, cyanosis or edema Psych: Appearance: grossly normal and well kempt Speech and movement: Normal speech and movement present Affect: normal affect Progress Note: A&P Assessment and plan (1) PAD (peripheral artery disease): Status: Acute Assessment and Plan: Patient is status post transmetatarsal amputation it is poorly healing but there is coverage of the flap right now central portion is Boggy. At the current time his white count is 12.8 which is significantly down from his admission of 22. He appears to be doing well. I did discuss with him the potential need for a below-knee amputation. He was resistant to that. We will have a trial of conservative management. He can be discharged on p.o. antibiotics. He will require 1 week follow-up with us. In addition he will require formal anticoagulation as it appears that this was a thromboembolic event. In terms of wound care he will require: Alginate, 4 x 4, Kerlix wrap to be changed daily. Once again we will monitor him closely and he can follow up with me in 1 weeks time. Thank you for allowing us to assist in his care. If there are any questions or concerns please do not hesitate to contact us. Fall Risk Details Current Medications: Current Medications Acetaminophen (Acetaminophen 325 Mg Tablet) 650 mg PO Q4H PRN PRN Reason: pain/fever Last Admin: 07/05/21 05:02 Dose: 650 mg Documented by: Al Hydroxide/Mg Hydroxide (Magnesium Hydrox/Alum Hydrox 30 Ml Oral.Susp) 30 ml PO Q4H PRN PRN Reason: Heartburn/Nausea Last Admin: 07/05/21 16:42 Dose: 30 ml Documented by: Amlodipine Besylate (Amlodipine Besylate 10 Mg Tablet) 10 mg PO DAILY [facility]; Protocol Last Admin: 07/11/21 07:45 Dose: 10 mg Documented by: Apixaban (Apixaban 5 Mg Tablet) 10 mg PO BID [facility] Stop: 07/12/21 09:01 Last Admin: 07/11/21 07:44 Dose: 10 mg Documented by: Apixaban (Apixaban 5 Mg Tablet) 5 mg PO BID [facility] Atorvastatin Calcium (Atorvastatin Calcium 40 Mg Tablet) 40 mg PO DAILY [facility] Last Admin: 07/11/21 07:45 Dose: 40 mg Documented by: Promethazine HCl 12.5 mg/ (Sodium Chloride) 50.5 mls @ 202 mls/hr IV ONCE PRN PRN Reason: Nausea and Vomiting Vancomycin HCl 1,250 mg/ (Sodium Chloride) 250 mls @ 166.667 mls/hr IV Q12H [facility] Last Infusion: 07/11/21 06:40 Dose: Infused Documented by: Piperacillin Sod/Tazobactam (Sod 3.375 gm/ Sodium Chloride) 50 mls @ 100 mls/hr IV Q6H [facility] Last Infusion: 07/11/21 13:04 Dose: Infused Documented by: Insulin Glargine (Insulin Glargine,Hum.Rec.Anlog 100 Unit/Ml 10 Ml Vial) 20 unit SUBCUT BID [facility] Last Admin: 07/11/21 07:46 Dose: 20 unit Documented by: Insulin Human Lispro (Insulin Lispro 100 Unit/Ml 3 Ml Vial) 0 unit SUBCUT QIDACHS [facility]; Protocol Last Admin: 07/11/21 12:10 Dose: 6 unit Documented by: Lisinopril (Lisinopril 10 Mg Tablet) 10 mg PO DAILY [facility]; Protocol Last Admin: 07/11/21 12:02 Dose: 10 mg Documented by: Melatonin (Melatonin 3 Mg Tablet) 6 mg PO BEDTIME PRN PRN Reason: Insomnia Ondansetron HCl (Ondansetron Hcl 4 Mg/2 Ml Vial) 4 mg IVPUSH Q8H PRN PRN Reason: nausea/vomiting Last Admin: 07/10/21 20:39 Dose: 4 mg Documented by: Ondansetron HCl (Ondansetron Hcl 4 Mg/2 Ml Vial) 4 mg IVPUSH ONCE PRN PRN Reason: Nausea and Vomiting Oxycodone HCl (Oxycodone Hcl Immed Release 5 Mg Tablet) 5 mg PO Q4H PRN PRN Reason: severe pain Last Admin: 07/03/21 12:37 Dose: 5 mg Documented by: Senna/Docusate Sodium (Sennosides/Docusate Sodium Tablet) 1 tab PO DAILY [facility] Last Admin: 07/11/21 07:46 Dose: 1 tab Documented by: Sodium Chloride (0.9 % Sodium Chloride Flush 3 Ml Syringe) 3 ml IVFLUSH QSHIFT [facility] Last Admin: 07/11/21 12:02 Dose: 3 ml Documented by: Time Spent With Patient Time: Total time spent is greater than 50% in coordination of care (as docum ented) at patient's floor/unit and/or counseling patient: Time with patient: 25 - 35 minutes Procedures Date of Service Date of Service: 07/11/21 Quality Stroke Does the patient have a stroke diagnosis?: No VTE Prior VTE?: No VTE Risk Level:: Medical - moderate - high VTE Device Contraindication: Treatment Not Tolerated VTE Drug Contraindication: N/A - Med Ordered
--- NOTE | 2021-07-11 15:32 | MHC.CM.PN ---
PATIENT IS AWARE THAT NO [facility]NA SERVICES ARE AVAILABLE PATIENT REFUSES REHAB REFERRALS. PLAN IS FOR GIRLFRIEND TO COME IN AND BE TAUGHT DRESSING CHANGES, WELL A ONE-WEEK FOLLOW-UP WITH VASCULAR SURGEON. PATIENT STATES THAT HE WILL CONTACT IRIS AND LET HER KNOW. PLAN IS DC TOMORROW TO HOME.
[2021-07-11 17:16] LABS: Glucose, Whole Blood 291 mg/dL (60-115)
[2021-07-11 20:24] LABS: Glucose, Whole Blood 340 mg/dL (60-115)
[2021-07-11] MEDS: Amoxicillin/Potassium Clav 875 MG TABLET PO (21:26)
[2021-07-11 22:18] LABS: Glucose, Whole Blood 240 mg/dL (60-115)
[2021-07-12 03:34] VITALS: BP 151/85; PULSE 68; RESP 18; TEMP 37.1; O2SAT 99
[2021-07-12 06:43] LABS: Creatinine Clr Calc Pharmacy 90.2; Estimated Glomerular Filt Rate > 60
[2021-07-12 07:18] VITALS: BP 149/95; PULSE 66; RESP 18; TEMP 35.8; O2SAT 96
[2021-07-12 07:27] LABS: Glucose, Whole Blood 179 mg/dL (60-115)
[2021-07-12] MEDS: Insulin Lispro 100 UNIT/ML 3 ML VIAL SUBCUT (07:48)
[2021-07-12] MEDS: 0.9 % Sodium Chloride Flush 3 ML SYRINGE IVFLUSH (07:49)
[2021-07-12] MEDS: Insulin Glargine,Hum.rec.anlog 100 UNIT/ML 10 ML VIAL 20 UNIT SUBCUT (09:55)
[2021-07-12 09:56] VITALS: BP 171/88; PULSE 91
[2021-07-12] MEDS: Sennosides/Docusate Sodium TABLET 1 TAB PO (09:56)
[2021-07-12] MEDS: Amoxicillin/Potassium Clav 875 MG TABLET PO (09:56)
[2021-07-12] MEDS: lisinopriL 20 MG TABLET PO (09:56)
[2021-07-12 09:57] VITALS: BP 171/88; PULSE 91
[2021-07-12] MEDS: Apixaban 5 MG TABLET 10 MG PO (09:57)
[2021-07-12] MEDS: Atorvastatin Calcium 40 MG TABLET PO (09:57)
[2021-07-12] MEDS: amLODIPine Besylate 10 MG TABLET PO (09:57)
--- NOTE | 2021-07-12 10:40 | PM.DS ---
DS: Providers Provider Date of Service: 07/12/21 Date of admission: 06/30/21 03:59 Date of discharge: 07/12/21 Primary care physician: Lawson Physician Consults: 06/30/21 03:51 Consult to Infectious Diseases Routine Consulting Provider: Lourdes Gonzalez Reason for consultation: recurent osteomyliis Has provider been notified: No 06/30/21 03:52 Consult to Vascular Surgery Routine Consulting Provider: Bebeto Hammer Reason for consultation: PVD, osteo 07/01/21 09:21 Consult to Wound Care Routine Consulting Provider: Cyndy Cannon Reason for consultation: necrotic wounds L foot 07/10/21 11:01 Consult to Hematology / Oncology Routine Consulting Provider: Corey Mayes Reason for consultation: thrombocytosis Has provider been notified: No Attending physician on discharge: Huey Jain Discharging clinician: Katarzyna Girard DS: Diagnosis Discharge Diagnosis (1) Osteomyelitis: Status: Acute (2) PAD (peripheral artery disease): Status: Acute (3) Diabetic foot ulcer: Status: Acute (4) Sepsis: Status: Acute (5) Diabetes mellitus: Status: Acute (6) Iron deficiency: Status: Acute DS: Summary Hospital Course Hospital Course: From H&P on day of admission 50 year old male with uncontrolled diabetes complicated by diabetic foot ulcer and osteomylitis of right 4th toe that was amputated in october after he failed senior living antibotics. He presents today with pain, purple discolorization of the left 4th toe with foul smelling drainage. He he has ulcers of the plantar aspect of the foot that appear chronic. He claims that everthing happened overnight. 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 His diabetes doesn't seem to be well controlled. Severe sepsis secondary to DM foot infection/acute osteomyelitis/abscess left foot. He was started on broad-spectrum IV antibiotics. Lower extremity arterial ultrasound showed occlusion of the left mid SFA. He was seen by vascular surgeon and underwent left SFA atherectomy/stenting on July 03. At that time he was found to have a left SFA occlusion with a soft plaque concerning for embolic event. He was started on therapeutic Lovenox for anticoagulation which was later converted to Eliquis. For embolic workup He underwent echocardiogram which showed moderate pulmonary hypertension and was otherwise unremarkable. MRI left foot osteomyelitis with abscess and soft tissue gas. He underwent left transmetatarsal amputation 07/04. His BCx have remained negative. Leukocytosis has been trending down. The amputation site does not appear to be healing adequately at this time. Further amputation was discussed with the patient however he has declined at this time. He is eager to be discharged and returned home and is considering a 2nd opinion. He was seen by infectious diseases and does not require long-term antibiotics as the site of infection has been removed. He will be discharged home with 10 days of doxycycline and Augmentin. He should follow-up in the [facility] and with vascular surgery in the next 1 week. Both he and his has been educated on changing his dressing daily and have been given supplies to last until his wound care center appointment. Hospital course was complicated by uncontrolled blood pressure. Patient's dose of lisinopril was gradually increased to 20 mg daily, he was started on Norvasc 10 mg daily. Although his blood pressure is not yet at goal it has improved significantly. He has remained asymptomatic He should call to schedule follow-up appointment with his PCP for close blood pressure monitoring. He was also noted to have anemia. Iron studies were consistent with likely combination of iron deficiency and chronic inflammation. He required blood transfusion with 2U rbc 07/05 with appropriate rise in H/H. His H/H has remained stable since. No active bleeding was noted. He should have close outpatient follow-up. Time Spent with Patient Time attestation: Total time spent providing and/or coordinating discharge services: Discharge coordination time: Greater than 30 minutes Quality: Stroke Does the patient have a stroke diagnosis?: No Physical Exam Vital Signs: Vital Signs: Last Vital Signs Temp 96.5 F L 07/12/21 07:18 Pulse 91 07/12/21 09:57 Resp 18 07/12/21 07:18 BP 171/88 H 07/12/21 09:57 Pulse Ox 96 07/12/21 07:18 Body Mass Index 30.7 Const: General: no acute distress, alert, awake and ill appearing Nutritional Appearance: well nourished Orientation/consciousness: patient oriented x3 HENMT: Head: Yes normocephalic and Yes atraumatic Eyes: Sclerae: sclerae normal Chest: Chest palpation & inspection: normal inspection of the chest Resp: Effort & Inspection: normal respiratory effort and no respiratory distress Auscultation: clear to auscultation bilaterally Cardio: Rate: regular rate Rhythm: regular rhythm GI: Palpation (GI): Soft to palpation and nontender Neuro: General: patient oriented x3 Cranial nerves: Yes CN's II-XII intact bilaterally and Yes Bilaterally intact EOM present Extrem: Other: left foot wrapped in c/d/i bandage; offloading boot DS: Data Data Completed and Pending Completed studies during hospitalization [Text1]: Pending at discharge 07/04/21 13:00 Surgical [PTH] Routine Procedures Extirpation of Matter from Right Popliteal Artery, Percutaneous Approach (09/20/20) Insertion of Infusion Device into Superior Vena Cava, Percutaneous Approach (09/20/20) Ultrasonography of Superior Vena Cava, Guidance (09/20/20) Labs on day of discharge: Laboratory Results - last 24 hr 07/11/21 07/11/21 07/11/21 11:33 17:12 20:06 Creatinine Estim Creat Clear Calc Estimated GFR POC Glucose 230 H 291 H 340 H 07/11/21 07/12/21 07/12/21 22:13 05:58 07:18 Creatinine 1.03 Estim Creat Clear Calc 90.2 Estimated GFR > 60 POC Glucose 240 H 179 H Discharge Plan Discharge Patient Disposition: Home, Self-Care Discharge Diagnosis: Diabetic ulcer/ulcer/abscess left foot Uncontrolled hypertension DM PVD anemia Referrals: Bebeto Hammer MD [Physician] - 1 Week Cyndy Cannon PA [Physician Allergist Immunologist] - 1 Week Physician,Lawson Ayon [Primary Care Provider] - 1 Week Discharge Medications: New lisinopril 20 mg tablet 20 mg PO DAILY 30 Days Qty: 30 RF: 0 amlodipine [Norvasc] 10 mg tablet 10 mg PO DAILY 30 Days Qty: 30 RF: 0 doxycycline hyclate 100 mg capsule 100 mg PO BID 10 Days Qty: 20 RF: 0 amoxicillin-pot clavulanate [Augmentin] 875-125 mg tablet 1 tab PO BID 10 Days Qty: 20 RF: 0 Eliquis 5 mg tablet 5 mg PO BID 30 Days Qty: 60 RF: 0 Continued metformin 1,000 mg tablet 1 tab PO BID RF: 0 atorvastatin 40 mg tablet 1 tab PO DAILY RF: 0 Basaglar KwikPen U-100 Insulin 100 unit/mL (3 mL) insulin pen 15 unit subcut BID RF: 0 Discontinued lisinopril 5 mg tablet 5 mg PO DAILY RF: 0 No Action (DME) Contour Test Strips Strip See Rx Instructions strip .ROUTE .MEDSUPPLY Qty: 10 RF: 0 (DME) pen needle, diabetic 32 gauge x 5/32 needle See Rx Instructions ea subcut .MEDSUPPLY Qty: 50 RF: 0 Discharge Orders: Discharge Order (Routine); Ordered 07/12/21 Ordered By: Katarzyna Girard Diet: advance to usual diet Activity on Discharge: As tolerated Stand Alone Forms: Patient Portal Discharge page Activity Restrictions/Additional Instructions: See Dr. Hammer in follow-up in approximately 1 weeks time. You should already have an appointment if not please call my office at [phone] Please see above for any change in medications - antibiotics and anticoagulation Wound care: Cleanse with soap and water, rinse thoroughly and pat dry. Apply silver alginate, 4 x 4 non woven gauze and gauze wrap daily. Care Plan Goals: see below Health Concerns: Osteomyelitis/ulcer/abscess of left foot status post left transmetatarsal amputation Elevated blood pressure Anemia Plan of Treatment: Please call to schedule a follow-up appointment with Dr. Hammer as well as the wound clinic. you need close follow up for your left foot. Change dressings daily as per instructions above. Your blood pressure medication has been adjusted. Please take as prescribed. Please call to schedule follow-up appointment with your PCP for close blood pressure monitoring Anemia. Your blood numbers should be repeated in the near future Assessment: see discharge summary
--- NOTE | 2021-07-12 10:56 | PC.NURSE ---
Addendum entered by Denice Pablo RN 07/12/21 11:33: DISCHARGE PAPER WORK REVIEWED WITH PATIENT AND . IV AND MONITOR REMOVED. OFF UNIT TO D/C 1133. Original Note: WOUND DRESSING AND EDUCATION ON DAILY DRESSING CHANGES AND WOUND CARE PROVIDED BY WOUND RN AND RE-ENFORCED BY THIS RN TO BOTH PATIENT AND HIS . SUPPLIES PROVIDED TO GO HOME WITH PATIENT FOR THE NEXT WEEK.
--- NOTE | 2021-07-12 11:20 | MHC.CM.PN ---
Male 50 DX DM foot ulcer is discharged to home today. His has been trained to perform wound care. Patient will follow up with [facility] next week. His is providing transportation home.
[2021-07-12 11:26] LABS: Glucose, Whole Blood 184 mg/dL (60-115)
== END 2021-07-12 11:33 | disposition home or self-care (01) | DRG 854 ==
LOC: HO.ED 02:32 → HO.EDOVER 04:40 → HO.S3 15:55 → HO.IMC 07-11 18:18
PROVIDERS: Family Medicine; Internal Medicine Medical Oncology; Nurse Practitioner Acute Care; Surgery Vascular Surgery; Admitting Provider Internal Medicine; Emergency Provider Student in an Organized Health Care Education/Training Program; Visit Provider Physician Assistant Medical
PROC: 04CL3ZZ Extirpation of Matter from Left Femoral Artery, Percutaneous Approach (ICD-10-PCS; principal; 2021-07-03 07:30)
PROC: 0Y6N0Z9 Detachment at Left Foot, Partial 1st Ray, Open Approach (ICD-10-PCS; CPT 28805; principal; 2021-07-04 12:00)
DX: A41.9 Sepsis, unspecified organism (principal); E11.52 Type 2 diabetes mellitus with diabetic peripheral angiopathy with gangrene; L03.115 Cellulitis of right lower limb; L97.429 Non-pressure chronic ulcer of left heel and midfoot with unspecified severity; I70.262 Atherosclerosis of native arteries of extremities with gangrene, left leg; L02.612 Cutaneous abscess of left foot; M86.172 Other acute osteomyelitis, left ankle and foot; E11.621 Type 2 diabetes mellitus with foot ulcer; K21.9 Gastro-esophageal reflux disease without esophagitis; F17.210 Nicotine dependence, cigarettes, uncomplicated; Z71.6 Tobacco abuse counseling; Z20.822 Contact with and (suspected) exposure to COVID-19; L97.529 Non-pressure chronic ulcer of other part of left foot with unspecified severity; D50.9 Iron deficiency anemia, unspecified; E11.65 Type 2 diabetes mellitus with hyperglycemia; R65.20 Severe sepsis without septic shock; I10 Essential (primary) hypertension; E78.5 Hyperlipidemia, unspecified; D75.838 Other thrombocytosis; E11.69 Type 2 diabetes mellitus with other specified complication; N28.9 Disorder of kidney and ureter, unspecified; D72.829 Elevated white blood cell count, unspecified; D63.8 Anemia in other chronic diseases classified elsewhere; Z79.4 Long term (current) use of insulin; Z79.01 Long term (current) use of anticoagulants; Z79.899 Other long term (current) drug therapy
CPT/HCPCS: 36415; 37227; 73630; 73720; 76937; 80048; 80053; 80202; 81219; 81270; 81279; 81339; 82009; 82565; 82607; 82728; 82746; 82947; 83540; 83605; 83615; 85007; 85025; 85027; 85045; 85610; 85652; 85730; 86140; 86850; 86900; 86901; 86923; 87040; 87635; 88305; 88307; 88311; 93306; 93923; 93925; 96361; 96365; 96375; 97116; 97161; 99152; 99153; 99222; 99285; A9585; C1714; C1725; C1760; C1769; C1874; C1884; C1887; J0131; J0330; J1170; J1650; J2250; J2370; J2405; J2543; J3010; J3370; P9016

== ENCOUNTER 2021-07-16 11:06 | Outpatient (RCR) | payer OTHER, MEDICAID, SELFPAY | END 2021-07-17 13:33 | disposition home or self-care (01) | LOC: HO.WCC 11:06 | PROVIDERS: PCP Nurse Practitioner; Visit Provider Physician Assistant | DX: Z09 Encounter for follow-up examination after completed treatment for conditions other than malignant neoplasm (principal); E11.40 Type 2 diabetes mellitus with diabetic neuropathy, unspecified; I74.3 Embolism and thrombosis of arteries of the lower extremities; Z89.422 Acquired absence of other left toe(s); Z86.31 Personal history of diabetic foot ulcer; Z87.891 Personal history of nicotine dependence | CPT/HCPCS: 99212 ==

== ENCOUNTER → 2021-07-23 09:30 | Outpatient (BNVA) | payer OTHER, MEDICAID, SELFPAY | PROVIDERS: PCP Nurse Practitioner; Visit Provider Surgery Vascular Surgery ==

== ENCOUNTER 2021-07-26 11:05 | Outpatient (RCR) | payer MEDICAID, OTHER, SELFPAY ==
--- NOTE | ~2021-07-26 | XR_ITS ---
EXAMINATION: XR CHEST CLINICAL INFORMATION: Left foot wound COMPARISON: 02/19/2021 TECHNIQUE: 2 views of the chest were obtained. FINDINGS: The lungs are well expanded. There is no focal consolidation, edema, or effusion. No pneumothorax. The cardiomediastinal silhouette is within normal limits. No acute osseous abnormality. XR/XR chest 2V IMPRESSION: Clear lungs.
--- NOTE | ~2021-07-26 | XR_ITS ---
EXAMINATION: XR CHEST CLINICAL INFORMATION: Preprocedure COMPARISON: Previous chest x-ray July 2021 TECHNIQUE: 2 views of the chest were obtained. FINDINGS: The cardiac and mediastinal contours are normal. The lungs are clear. There is no pleural effusion or pneumothorax. There are mild degenerative changes and curvature of the lower thoracic spine to the right. XR/XR chest 2V IMPRESSION: No evidence for acute disease in the chest.
[2021-07-29 09:49] LABS: MANUAL DIFF FLAG NO
[2021-07-29 10:11] LABS: Basophils Percent Auto 0.4 % (0-2); Eosinophils Absolute Auto 0.3 X10*3/uL (0.0-0.4); Eosinophils Percent Auto 2.5 % (0-4); Hematocrit 26.1 % (42.0-52.0); Hemoglobin 8.4 g/dl (14.0-18.0); Imm Gran Abs Auto 0.05 X10*3/uL (0.00-0.03); Imm Gran Pct Auto 0.5 % (0.0-0.4); Lymphocytes Absolute Auto 2.1 X10*3/uL (1.2-4.9); Lymphocytes Percent Auto 20.2 % (20-40); Mean Corpuscular HGB Conc 32.2 g/dl (31.0-36.0); Mean Corpuscular Hemoglobin 27.6 pg (27.0-33.0); Mean Corpuscular Volume 85.9 fL (80.0-98.0); Mean Platelet Volume 8.9 fL (9.4-12.4); Monocytes Absolute Auto 0.8 X10*3/uL (0.1-1.2); Monocytes Percent Auto 7.7 % (2-11); Neutrophils Percent Auto 68.7 % (45-73); Platelet Count 434 X10*3/uL (160-400); Red Blood Count 3.04 X10*6/uL (4.60-5.80); White Blood Count 10.3 X10*3/uL (4.8-10.8)
[2021-07-29 10:44] LABS: Estimated Average Glucose 217 mg/dL; Hemoglobin A1c % 9.2 %
[2021-07-29 10:53] LABS: Anion Gap 14 (12-20); Blood Urea Nitrogen 19 mg/dL (9-16); Carbon Dioxide 22 mmol/L (22-29); Chloride 104 mmol/L (96-108); Estimated Glomerular Filt Rate > 60; Glucose Random 348 mg/dL (60-115); Potassium 4.9 mmol/L (3.3-5.1); Sodium 135 mmol/L (135-145)
[2021-07-29 10:59] LABS: Erythrocyte Sedimentation Rate 82 MM/HR (0-15)
[2021-09-16 09:02] LABS: Amphetamine Screen Urine Not Detected (Not Detect); Barbiturates, Urine Not Detected (Not Detect); Benzodiazepines Screen Urine Not Detected (Not Detect); Cannabinoid Screen Urine Not Detected (Not Detect); Cocaine Screen Urine Not Detected (Not Detect); Fentanyl, urine Not Detected (Not Detect); Opiate Screen Urine Not Detected (Not Detect); Phencyclidine Screen Urine Not Detected (Not Detect)
[2021-10-25 08:46] LABS: MANUAL DIFF FLAG NO
[2021-10-25 08:59] LABS: Basophils Percent Auto 0.6 % (0-2); Eosinophils Absolute Auto 0.2 X10*3/uL (0.0-0.4); Eosinophils Percent Auto 2.5 % (0-4); Hematocrit 28.1 % (42.0-52.0); Hemoglobin 8.7 g/dl (14.0-18.0); Imm Gran Abs Auto 0.04 X10*3/uL (0.00-0.03); Imm Gran Pct Auto 0.6 % (0.0-0.4); Lymphocytes Absolute Auto 1.8 X10*3/uL (1.2-4.9); Lymphocytes Percent Auto 24.8 % (20-40); Mean Corpuscular Hemoglobin 25.4 pg (27.0-33.0); Mean Corpuscular Volume 82.2 fL (80.0-98.0); Mean Platelet Volume 9.1 fL (9.4-12.4); Monocytes Absolute Auto 0.7 X10*3/uL (0.1-1.2); Monocytes Percent Auto 10.2 % (2-11); Neutrophils Absolute Auto 4.5 x10*3/uL (2.0-8.3); Neutrophils Percent Auto 61.3 % (45-73); Platelet Count 547 X10*3/uL (160-400); Red Blood Count 3.42 X10*6/uL (4.60-5.80); Red Cell Distribution Width 16.4 % (11.0-16.0); White Blood Count 7.3 X10*3/uL (4.8-10.8)
[2021-10-25 09:09] LABS: Estimated Average Glucose 278 mg/dL; Hemoglobin A1c % 11.3 %
[2021-10-25 09:58] LABS: Anion Gap 12 (12-20); Blood Urea Nitrogen 18 mg/dL (9-16); C Reactive Protein 1.94 mg/dL (< or = 0.50); Calcium 9.5 mg/dL (8.4-10.2); Carbon Dioxide 26 mmol/L (22-29); Chloride 103 mmol/L (96-108); Estimated Glomerular Filt Rate 59; Glucose Random 338 mg/dL (60-115); Potassium 5.2 mmol/L (3.3-5.1); Sodium 136 mmol/L (135-145)
[2021-10-29 09:28] LABS: Amphetamine Screen Urine Not Detected (Not Detect); Barbiturates, Urine Not Detected (Not Detect); Benzodiazepines Screen Urine Not Detected (Not Detect); Cannabinoid Screen Urine Not Detected (Not Detect); Cocaine Screen Urine POSITIVE (Not Detect); Fentanyl, urine Not Detected (Not Detect); Opiate Screen Urine Not Detected (Not Detect); Phencyclidine Screen Urine Not Detected (Not Detect)
== END 2022-02-13 14:58 | disposition home or self-care (01) ==
LOC: HO.WCC 11:05
PROVIDERS: Surgery; PCP Nurse Practitioner; Visit Provider Physician Assistant
DX: E11.621 Type 2 diabetes mellitus with foot ulcer (principal); L97.523 Non-pressure chronic ulcer of other part of left foot with necrosis of muscle; T87.81 Dehiscence of amputation stump; T86.821 Skin graft (allograft) (autograft) failure; E11.40 Type 2 diabetes mellitus with diabetic neuropathy, unspecified; I74.3 Embolism and thrombosis of arteries of the lower extremities; L84 Corns and callosities; Z89.422 Acquired absence of other left toe(s); Z87.891 Personal history of nicotine dependence
CPT/HCPCS: 11042; 11043; 11044; 11045; 11046; 11047; 15275; 15276; 36415; 71046; 80048; 80307; 83036; 84134; 85025; 85652; 86140; 87071; 87077; 87186; 87205; 88304; 88305; 88311; 99183; 99212; 99213; 99214; Q4101

== ENCOUNTER 2021-08-30 11:30 | Inpatient (IN) | payer OTHER, SELFPAY ==
[2021-08-30] VITALS (16 sets, daily range): BP systolic 78–129; BP diastolic 53–92; PULSE 99–118; RESP 16–20; TEMP 36.6–37.1; O2SAT 97–100; BMI 28.1
--- NOTE | ~2021-08-30 | CT_ITS ---
EXAMINATION: CT ABDOMEN AND PELVIS WITHOUT CONTRAST CLINICAL INFORMATION: Diffusely tender abdomen. COMPARISON: None TECHNIQUE: Multidetector volumetric imaging was performed from the superior aspect of the liver through the pubic symphysis. No oral or intravenous contrast. Sagittal and coronal reformatted images were obtained on the technologist's workstation. This CT examination was performed using dose optimization techniques as appropriate, variously including the following: *Automated exposure control *Adjustment of mA and/or kV according to patient size (this includes techniques or standardized protocols for targeted exams where dose is matched to indication/reason for exam; i.e. extremities or head) *Use of iterative reconstruction technique DLP: 570 mGy-cm FINDINGS: LUNG BASES: The visualized lung bases are unremarkable. LIVER, GALLBLADDER, AND BILIARY TREE: Normal in size and smooth in contour. No focal hepatic parenchymal lesion. Punctate capsular calcification near galina hepatis. No intrahepatic ductal dilatation. The gallbladder is unremarkable with no evidence of radiopaque gallstones, gallbladder wall thickening, or obvious pericholecystic inflammatory changes. PANCREAS: Normal in size. No pancreatic ductal distention or peripancreatic inflammatory changes. 2 punctate parenchymal calcifications versus vascular calcification. SPLEEN: Unremarkable. ADRENAL GLANDS: Unremarkable. KIDNEYS AND URETERS: No hydronephrosis, hydroureter, calculi, or definite perinephric stranding. Normal renal parenchymal thickness and symmetric renal parenchymal attenuation. BLADDER: Unremarkable. GASTROINTESTINAL TRACT: There is large amount of stool throughout the entire colon from cecum to rectum. There is no proximal bowel obstruction or focal inflammatory changes in the bowel or mesentery. The appendix is normal. No ascites or loculated fluid collection. No pneumatosis or free air. ABDOMINAL WALL: No significant hernia is appreciated. LYMPH NODES: No retroperitoneal or deep pelvic adenopathy. Incidental bilateral scattered inguinal nodes. VASCULAR: Unremarkable. PELVIC VISCERA: Unremarkable. OSSEOUS STRUCTURES: Unremarkable. CT/CT abdomen pelvis wo con IMPRESSION: 1. Large amount of stool throughout colon cecum to rectum. No proximal obstruction or focal inflammatory changes. 2. No hydronephrosis or hydroureter. 3. No biliary ductal dilatation.
--- NOTE | ~2021-08-30 | MR_ITS ---
EXAMINATION: MR FOOT WITHOUT AND WITH CONTRAST, LEFT CLINICAL INFORMATION: Nonhealing left foot wound. COMPARISON: MR left foot 07/02/2021 TECHNIQUE: MRI of the left foot was performed before and after the intravenous administration of 8.5 mL of Gadavist on a high-field scanner. FINDINGS: There has been interval transmetatarsal amputation at the level of the metatarsal bases. There is diffuse patchy edema and enhancement involving the residual metatarsal bases, L3 cuneiforms, and the navicular, suspicious for osteomyelitis. There is mild patchy edema involving the cuboid and distal calcaneus which could be reactive although early osteomyelitis cannot be excluded. Focal subchondral bone marrow edema in the medial talar dome appears to be degenerative. There is patchy cartilage thinning in the talocrural joint. There is some irregular nonenhancement in the soft tissues plantar to the junction of the medial and intermediate cuneiforms and extending between these 2 cuneiforms and also plantar and medial to the medial cuneiform. This does not appear to represent discrete fluid on the STIR images and may represent devitalized tissue as opposed to an abscess. There are focal areas of skin and subcutaneous irregularity defects on the plantar and dorsal aspects of the amputation stump. There is patchy subcutaneous edema and some enhancement. Diffuse patchy/streaky edema and enhancement in the foot muscles is again noted and is nonspecific. MR/MR foot LT wo/w con IMPRESSION: 1. Multiple areas of skin and subcutaneous irregularity and defects involving the amputation stump. 2. Findings suspicious for osteomyelitis involving the residual metatarsal bases, cuneiforms, and navicular. Focal areas of mild bone marrow edema in the cuboid and distal calcaneus may be reactive although early osteomyelitis cannot be excluded. 3. Irregular nonenhancement plantar, between, and around the medial and intermediate cuneiforms which could represent devitalized tissue, although complex abscesses are not entirely excluded. 4. Diffuse edema and enhancement in the foot muscles. Consider denervation injury or nonspecific myositis.
--- NOTE | 2021-08-30 11:40 | ECG_ITS ---
Test Reason : RAPID HR Blood Pressure : / mmHG Vent. Rate : 105 BPM Atrial Rate : 105 BPM P-R Int : 160 ms QRS Dur : 072 ms QT Int : 348 ms P-R-T Axes : 037 -20 066 degrees QTc Int : 459 ms Sinus tachycardia Minimal voltage criteria for LVH, may be normal variant ( R in aVL ) Nonspecific ST and T wave abnormality Borderline ECG No previous ECGs available Referred By: Generic ED Physician Electronically Signed By:ALYSHA KUMARI
[2021-08-30 12:02] LABS: MANUAL DIFF FLAG NO
--- NOTE | 2021-08-30 12:05 | ED_ITS ---
HPI - General Adult General Chief complaint: General Medical <OLGA LIDIA Bernal - Last Filed: 08/30/21 19:16> Stated complaint: LOW BP RAPID HEART RATE <OLGA LIDIA Bernal - Last Filed: 08/30/21 19:16> Time Seen by Provider: 08/30/21 12:02 <OLGA LIDIA Bernal - Last Filed: 08/30/21 19:16> Source: patient <OLGA LIDIA Bernal Last Filed: 08/30/21 19:16> Mode of arrival: ambulatory <OLGA LIDIA Bernal Last Filed: 08/30/21 19:16> Limitations: no limitations <OLGA LIDIA Bernal Last Filed: 08/30/21 19:16> History of Present Illness HPI narrative: 50-year-old male past medical history significant for iron deficiency anemia, diabetes, thrombocytosis, hypertension, PAD, diabetic foot ulcers was encouraged to come into the emergency department by wound care. He is coming in today for diaphoresis, low blood pressure, tachycardia, shortness of breath, dark stools and vomiting x2 days. He tells me he is fine, and he does not want to be here. His significant other is at the bedside who reports that he has been feeling dizzy, weak, short of breath, fatigued and not himself for the past week worse over the past 2 days. She tells me that he has not been eating or drinking, and he has been complaining of abdominal pain that is constant in nature. He also reports diarrhea, and very dark stools at times they are black. He tells me that when he vomits his vomit is yellow/white, he has not noted any blood in his vomit. He also reports shortness of breath, which is new in nature, worse with exertion and better at rest. He denies chest pain, fevers, chills, headache. He tells me he does not drink, and does not use any drugs. He has never had a colonoscopy <OLGA LIDIA Bernal Last Filed: 08/30/21 19:16> Onset (ago): day(s) (2) <OLGA LIDIA Bernal Last Filed: 08/30/21 19:16> Severity: moderate <OLGA LIDIA Bernal - Last Filed: 08/30/21 19:16> Relieving factors: none <OLGA LIDIA Bernal Last Filed: 08/30/21 19:16> Exacerbating factors: none <OLGA LIDIA Bernal Last Filed: 08/30/21 19:16> Associated symptoms: nausea/vomiting and weakness <OLGA LIDIA Bernal Last Filed: 08/30/21 19:16> Treatments prior to arrival: none <OLGA LIDIA Bernal Last Filed: 08/30/21 19:16> Related Data Home medications: Home Medications Medication Instructions Recorded Confirmed metformin 1,000 mg tablet 1 tab PO BID 10/31/20 08/30/21 blood sugar diagnostic #10 ea 11/20/20 06/30/21 pen needle, diabetic 32 gauge x #50 ea 11/20/20 06/30/21 5/32 atorvastatin 40 mg tablet 1 tab PO DAILY 06/30/21 08/30/21 insulin glargine 100 unit/mL (3 15 unit SUBCUT BID 06/30/21 08/30/21 mL) subcutaneous pen (Basaglar KwikPen U-100 Insulin) aspirin 81 mg tablet,delayed 1 tab PO DAILY 08/30/21 08/30/21 release dulaglutide 1.5 mg/0.5 mL 1.5 mg SUBCUT Q7D 08/30/21 08/30/21 subcutaneous pen injector (Trulicity) levofloxacin 750 mg tablet 1 tab PO DAILY 08/30/21 08/30/21 Previous Rx's Medication Instructions Recorded amlodipine 10 mg tablet (Norvasc) 10 mg PO DAILY 30 Days #30 tab 07/11/21 apixaban 5 mg tablet (Eliquis) 5 mg PO BID 30 Days #60 tab 07/11/21 lisinopril 20 mg tablet 20 mg PO DAILY 30 Days #30 tab 07/11/21 <OLGA LIDIA Bernal Last Filed: 08/30/21 19:16> Allergies/adverse reactions: Allergies Allergy/AdvReac Type Severity Reaction Status Date / Time No Known Allergies Allergy Verified 07/23/21 09:50 <OLGA LIDIA Bernal Last Filed: 08/30/21 19:16> Review of Systems Review of Systems: Constitutional : No Weight loss, No Fever, No Chills, No Fatigue, No Malaise ENT/Mouth : No sore throat, No Rhinorrhea Eyes: No Eye Pain, No Swelling, No Redness Cardiovascular : No Chest Pain, + SOB, No Dyspnea on Exertion, No Orthopnea, No Edema, No Palpitations Respiratory : No Cough, No Sputum, No Wheezing Gastrointestinal : + Nausea, + Vomiting, + Diarrhea, No Constipation, + abdominal Pain, No Hematochezia, + Melena Genitourinary : No Dysuria, No Urinary Frequency, No Hematuria, Musculoskeletal : No joint pain, No Myalgias, No Joint Swelling Skin : No Skin Lesions, No rash Neuro : + Weakness, No Numbness, No Dizziness, No Headache All other systems reviewed and are negative <OLGA LIDIA Bernal - Last Filed: 08/30/21 19:16> Yes all other systems are reviewed and are negative <OLGA LIDIA Bernal - Last Filed: 08/30/21 19:16> [facility] Past Medical History Attestation statement: The following information was validated with the patient. <OLGA LIDIA Bernal - Last Filed: 08/30/21 19:16> Source: old records reviewed and nursing notes reviewed <OLGA LIDIA Bernal - Last Filed: 08/30/21 19:16> Medical History: Medical History Bacteremia Diabetes Diabetic foot ulcer Gangrene of toe of left foot GERD (gastroesophageal reflux disease) History of angiography PAD (peripheral artery disease) PICC (peripherally inserted central catheter) in place <OLGA LIDIA Bernal - Last Filed: 08/30/21 19:16> Surgical History: Surgical History Amputated toe of right foot (11/05/20) <OLGA LIDIA Bernal - Last Filed: 08/30/21 19:16> Family History Family History: Family History Other Diabetes <OLGA LIDIA Bernal - Last Filed: 08/30/21 19:16> Social History Social History: Social History Household Members: Significant Other and Other Housing: House Do you presently have visiting nurse or other home services: No Alcohol intake: never Patient Tobacco Use Status: Current everyday Tobacco user Tobacco use type: Cigarette Years Smoked: 15 Second Hand Smoke Exposure: No Advance Directives: No Advance Directives Information Provided: Yes service: No Current occupational status: employed <OLGA LIDIA Bernal - Last Filed: 08/30/21 19:16> Physical Exam Vital Signs: Vital Signs: Last Vital Signs Temp 97.9 F 08/30/21 18:04 Pulse 103 H 08/30/21 18:04 Resp 18 08/30/21 18:04 BP 125/92 H 08/30/21 18:04 Pulse Ox 100 08/30/21 18:00 BMI result Body Mass Index 28.1 Patient is noted to be hypotensive, and tachycardic. <OGLA LIDIA Bernal - Last Filed: 08/30/21 19:16> Vital Signs: Last Vital Signs Temp 97.9 F 08/30/21 18:04 Pulse 103 H 08/30/21 18:04 Resp 18 08/30/21 18:04 BP 125/92 H 08/30/21 18:04 Pulse Ox 100 08/30/21 18:00 BMI result Body Mass Index 28.1 <Sukhdev Casey MD - Last Filed: 08/30/21 16:39> Appearance: Alert.? Oriented X3.? + patient appears ill Head: Normocephalic, atraumatic, no step-offs or deformities Eyes: Pupils equal, round and reactive to light.?EOMI ENT: Pharynx normal.? +Dry and pale mucous membranes Neck: Normal inspection.? Neck supple.? CVS: Normal heart rate and rhythm.? Pulses normal.? Respiratory: No respiratory distress.? Breath sounds normal.? Abdomen: Soft and + diffusely tender.?Normoactive bowel sounds Rectal exam: normal tone. No visible bright red blood with BRIAN Skin: Skin warm and dry.? + pallor appreciated throughout Normal skin turgor.?+ toe amputation to left side w/ open wound . (pictured below) Extremities: No lower extremity edema.? No calf ttp. 5/5 strength to bilateral upper and lower extremities Back: No midline tenderness, no C-spine tenderness, full range of motion, no CVA tenderness bilaterally Neuro: Oriented X 3.? No motor deficit.? No sensory deficit. <OLGA LIDIA Bernal - Last Filed: 08/30/21 19:16> Course Reevaluation(s) Reevaluation #1: No leukocytosis noted, hemoglobin 7.7, hematocrit of 24, lower than previous on 07/29/2021. Platelets are noted to be elevated however patient has a history of thrombocytosis. Patient noted to have ALEKSANDR, BUN of 21, creatinine of 1.70. Glucose of 352, it will give him 5 units of insulin. <OLGA LIDIA Bernal - Last Filed: 08/30/21 19:16> Time: 13:05 <OLGA LIDIA Bernal - Last Filed: 08/30/21 19:16> Reevaluation #2: CT shows large amount of stool throughout the colon and cecum to the rectum without obstruction. No hydronephrosis or hydroureter. No other findings on CT. <OLGA LIDIA Bernal - Last Filed: 08/30/21 19:16> Time: 15:01 <OLGA LIDIA Bernal - Last Filed: 08/30/21 19:16> Reevaluation #3: Discussed plan with PA will admit for blood transfusion and orthostatic hypotension with diabetes out of control. Stool heme negative no evidence for acute GI bleed. <Sukhdev Casey MD - Last Filed: 08/30/21 16:39> Time: 16:39 <Sukhdev Casey MD - Last Filed: 08/30/21 16:39> Additional Reevaluation(s): 1733 Urine tox screen positive for cocaine, lactic acid 1.3 again unlikely that this is infectious. I suspect that patient is orthostatic secondary to dehydration, and ALEKSANDR. Dr. Zuluaga will be admitting patient. <OLGA LIDIA Bernal Last Filed: 08/30/21 19:16> Medical Decision Making [facility] Narrative Medical decision making narrative: 1205 50-year-old male past medical history significant for diabetes, iron deficiency, diabetic foot ulcer, hypertension, PAD presents to the emergency department with vomiting, shortness of breath, dark stool, diffuse abdominal pain, dizziness, malaise, weakness, tachycardia, hypotension x2 days. He was sent in by the wound clinic where they noted that he appeared pale, tachycardic, and hypotensive. They tell me that he is currently being treated for diabetic foot ulcer, and he is currently on Levaquin. He is currently pending [id number] amputation. They tell me that he did not look good. Patient tells me does not know why he is here and he is fine. Significant other tells me he has been complaining of the above listed for about a week worse over the past 2 days Upon physical examination patient is noted to be tachycardic and hypotensive. With positive orthostatic vital signs, patient reports significant dizziness with changing positions. S1 and S2 appreciated, a rapid regular rhythm is noted, likely sinus tachycardia. Lungs are clear to auscultation. Abdomen is soft and diffusely tender to palpation with normoactive bowel sounds. No focal neuro deficits. 5/5 strength upper and lower extremities. Skin is noted to have pallor from head to toe. He has dry and pale mucous membranes. Capillary refill less than 2 seconds. Rectal exam with normal tone, unable to visualize antonina red blood. Plan at this time is to to obtain basic labs, drug screen, liver panel, PTT, PT INR, UA, CT of abdomen and pelvis with contrast, orthostatic vital signs, point of care, with type and screen. At this time I suspect that patient is hypotensive and tachycardic secondary to a GI bleed, not infection. I will hold on antibiotics at this josé luis (1230) <OLGA LIDIA Bernal - Last Filed: 08/30/21 19:16> Lab Data Result diagrams: : 08/30/21 17:35 08/30/21 11:54 <OLGA LIDIA Bernal - Last Filed: 08/30/21 19:16> Labs: Lab Results 08/30/21 08/30/21 08/30/21 Range/Units 11:54 11:54 11:54 WBC 10.7 (4.8-10.8) X10*3/uL RBC 2.86 L (4.60-5.80) X10*6/uL Hgb 7.7 L (14.0-18.0) g/dl Hct 24.0 L (42.0-52.0) % MCV 83.9 (80.0-98.0) fL MCH 26.9 L (27.0-33.0) pg MCHC 32.1 (31.0-36.0) g/dl RDW 15.7 (11.0-16.0) % Plt Count 655 H D (160-400) X10*3/uL MPV 8.5 L (9.4-12.4) fL Immature Gran % (Auto) 0.9 H (0.0-0.4) % Neut % (Auto) 74.9 H (45-73) % Lymph % (Auto) 15.5 L (20-40) % [place] % (Auto) 6.9 (2-11) % Eos % (Auto) 1.4 (0-4) % Baso % (Auto) 0.4 (0-2) % Lymph # (Auto) 1.7 (1.2-4.9) X10*3/uL [place] # (Auto) 0.7 (0.1-1.2) X10*3/uL Eos # (Auto) 0.2 (0.0-0.4) X10*3/uL Baso # (Auto) 0.0 (0.0-0.2) X10*3/uL Abs Immat Gran (auto) 0.10 H (0.00-0.03) X10*3/uL Absolute Neuts (auto) 8.0 (2.0-8.3) x10*3/uL Absolute Nucleated RBC 0.000 (0.0-0.012) X10*3/uL Nucleated RBC % (auto) 0.0 (0.0-0.2) /100WBC PT (9.9-13.0) SEC INR (0.9-1.1) APTT (24.1-38.0) SEC Sodium 135 (135-145) mmol/L Potassium 5.0 (3.3-5.1) mmol/L Chloride 100 (96-108) mmol/L Carbon Dioxide 21 L (22-29) mmol/L Anion Gap 19 (12-20) BUN 21 H (9-16) mg/dL Creatinine 1.70 H (0.5-1.4) mg/dL Estim Creat Clear Calc 54.3 Estimated GFR 43 POC Glucose (60-115) mg/dL Random Glucose 352 H* (60-115) mg/dL Lactic Acid (0.5-2.0) mmol/L Calcium 10.0 D (8.4-10.2) mg/dL Total Bilirubin 0.3 (0.0-1.0) mg/dL Direct Bilirubin 0.2 (0.0-0.5) mg/dL AST 9 (5-37) U/L ALT 14 (0-40) U/L Alkaline Phosphatase 98 (39-117) U/L Total Protein 7.8 (6.5-8.0) g/dL Albumin 3.7 (3.5-5.0) g/dL Urine Color Urine Appearance Urine pH (5.0-8.0) Ur Specific [place] (1.005-1.025) Urine Protein (NEG-TRACE) MG/DL Urine Glucose (UA) (NEG) MG/DL Urine Ketones (NEG) MG/DL Urine Blood (NEG) Urine Nitrite (NEG) Ur Leukocyte Esterase (NEG) Urine RBC (0) /HPF Urine WBC (0-4) /HPF Ur Squamous Epith Cells /LPF Calcium Oxalate Crystal /LPF Urine Bacteria /LPF Hyaline Casts /LPF Urine Mucus /LPF Urine Yeast /HPF Stool Occult Blood (NEGATIVE) Urine Opiates Screen (Not Detect) Urine Fentanyl Screen (Not Detect) Ur Barbiturates Screen (Not Detect) Ur Phencyclidine Scrn (Not Detect) Ur Amphetamines Screen (Not Detect) U Benzodiazepines Scrn (Not Detect) Urine Cocaine Screen (Not Detect) U Marijuana (THC) Screen (Not Detect) Acetone, Qual Negative (Negative) COVID-19 (DELIA) Negative (Negative) COVID-19 Clin Com See Note Blood Type Antibody Screen Crossmatch 08/30/21 08/30/21 08/30/21 Range/Units 12:31 13:27 13:44 WBC (4.8-10.8) X10*3/uL RBC (4.60-5.80) X10*6/uL Hgb (14.0-18.0) g/dl Hct (42.0-52.0) % MCV (80.0-98.0) fL MCH (27.0-33.0) pg MCHC (31.0-36.0) g/dl RDW (11.0-16.0) % Plt Count (160-400) X10*3/uL MPV (9.4-12.4) fL Immature Gran % (Auto) (0.0-0.4) % Neut % (Auto) (45-73) % Lymph % (Auto) (20-40) % [place] % (Auto) (2-11) % Eos % (Auto) (0-4) % Baso % (Auto) (0-2) % Lymph # (Auto) (1.2-4.9) X10*3/uL [place] # (Auto) (0.1-1.2) X10*3/uL Eos # (Auto) (0.0-0.4) X10*3/uL Baso # (Auto) (0.0-0.2) X10*3/uL Abs Immat Gran (auto) (0.00-0.03) X10*3/uL Absolute Neuts (auto) (2.0-8.3) x10*3/uL Absolute Nucleated RBC (0.0-0.012) X10*3/uL Nucleated RBC % (auto) (0.0-0.2) /100WBC PT 18.2 H (9.9-13.0) SEC INR 1.6 H (0.9-1.1) APTT 45.0 H D (24.1-38.0) SEC Sodium (135-145) mmol/L Potassium (3.3-5.1) mmol/L Chloride (96-108) mmol/L Carbon Dioxide (22-29) mmol/L Anion Gap (12-20) BUN (9-16) mg/dL Creatinine (0.5-1.4) mg/dL Estim Creat Clear Calc Estimated GFR POC Glucose (60-115) mg/dL Random Glucose (60-115) mg/dL Lactic Acid (0.5-2.0) mmol/L Calcium (8.4-10.2) mg/dL Total Bilirubin (0.0-1.0) mg/dL Direct Bilirubin (0.0-0.5) mg/dL AST (5-37) U/L ALT (0-40) U/L Alkaline Phosphatase (39-117) U/L Total Protein (6.5-8.0) g/dL Albumin (3.5-5.0) g/dL Urine Color Urine Appearance Urine pH (5.0-8.0) Ur Specific [place] (1.005-1.025) Urine Protein (NEG-TRACE) MG/DL Urine Glucose (UA) (NEG) MG/DL Urine Ketones (NEG) MG/DL Urine Blood (NEG) Urine Nitrite (NEG) Ur Leukocyte Esterase (NEG) Urine RBC (0) /HPF Urine WBC (0-4) /HPF Ur Squamous Epith Cells /LPF Calcium Oxalate Crystal /LPF Urine Bacteria /LPF Hyaline Casts /LPF Urine Mucus /LPF Urine Yeast /HPF Stool Occult Blood NEGATIVE (NEGATIVE) Urine Opiates Screen (Not Detect) Urine Fentanyl Screen (Not Detect) Ur Barbiturates Screen (Not Detect) Ur Phencyclidine Scrn (Not Detect) Ur Amphetamines Screen (Not Detect) U Benzodiazepines Scrn (Not Detect) Urine Cocaine Screen (Not Detect) U Marijuana (THC) Screen (Not Detect) Acetone, Qual (Negative) COVID-19 (DELIA) (Negative) COVID-19 Clin Com Blood Type A Positive Antibody Screen NEGATIVE Crossmatch See Detail 08/30/21 08/30/21 08/30/21 Range/Units 14:10 15:45 16:46 WBC (4.8-10.8) X10*3/uL RBC (4.60-5.80) X10*6/uL Hgb (14.0-18.0) g/dl Hct (42.0-52.0) % MCV (80.0-98.0) fL MCH (27.0-33.0) pg MCHC (31.0-36.0) g/dl RDW (11.0-16.0) % Plt Count (160-400) X10*3/uL MPV (9.4-12.4) fL Immature Gran % (Auto) (0.0-0.4) % Neut % (Auto) (45-73) % Lymph % (Auto) (20-40) % [place] % (Auto) (2-11) % Eos % (Auto) (0-4) % Baso % (Auto) (0-2) % Lymph # (Auto) (1.2-4.9) X10*3/uL [place] # (Auto) (0.1-1.2) X10*3/uL Eos # (Auto) (0.0-0.4) X10*3/uL Baso # (Auto) (0.0-0.2) X10*3/uL Abs Immat Gran (auto) (0.00-0.03) X10*3/uL Absolute Neuts (auto) (2.0-8.3) x10*3/uL Absolute Nucleated RBC (0.0-0.012) X10*3/uL Nucleated RBC % (auto) (0.0-0.2) /100WBC PT (9.9-13.0) SEC INR (0.9-1.1) APTT (24.1-38.0) SEC Sodium (135-145) mmol/L Potassium (3.3-5.1) mmol/L Chloride (96-108) mmol/L Carbon Dioxide (22-29) mmol/L Anion Gap (12-20) BUN (9-16) mg/dL Creatinine (0.5-1.4) mg/dL Estim Creat Clear Calc Estimated GFR POC Glucose 169 H 173 H (60-115) mg/dL Random Glucose (60-115) mg/dL Lactic Acid (0.5-2.0) mmol/L Calcium (8.4-10.2) mg/dL Total Bilirubin (0.0-1.0) mg/dL Direct Bilirubin (0.0-0.5) mg/dL AST (5-37) U/L ALT (0-40) U/L Alkaline Phosphatase (39-117) U/L Total Protein (6.5-8.0) g/dL Albumin (3.5-5.0) g/dL Urine Color YELLOW Urine Appearance CLEAR Urine pH 5.5 (5.0-8.0) Ur Specific [place] >= 1.030 H (1.005-1.025) Urine Protein TRACE (NEG-TRACE) MG/DL Urine Glucose (UA) 250 H (NEG) MG/DL Urine Ketones NEG (NEG) MG/DL Urine Blood TRACE (NEG) Urine Nitrite NEG (NEG) Ur Leukocyte Esterase NEG (NEG) Urine RBC 1-4 (0) /HPF Urine WBC 0-2 (0-4) /HPF Ur Squamous Epith Cells TRACE /LPF Calcium Oxalate Crystal TRACE /LPF Urine Bacteria TRACE /LPF Hyaline Casts 0-2 /LPF Urine Mucus 1+ /LPF Urine Yeast TRACE /HPF Stool Occult Blood (NEGATIVE) Urine Opiates Screen (Not Detect) Urine Fentanyl Screen (Not Detect) Ur Barbiturates Screen (Not Detect) Ur Phencyclidine Scrn (Not Detect) Ur Amphetamines Screen (Not Detect) U Benzodiazepines Scrn (Not Detect) Urine Cocaine Screen (Not Detect) U Marijuana (THC) Screen (Not Detect) Acetone, Qual (Negative) COVID-19 (DELIA) (Negative) COVID-19 Clin Com Blood Type Antibody Screen Crossmatch 08/30/21 08/30/21 08/30/21 Range/Units 16:46 17:07 17:35 WBC 9.1 (4.8-10.8) X10*3/uL RBC 2.56 L (4.60-5.80) X10*6/uL Hgb 6.9 L* (14.0-18.0) g/dl Hct 22.3 L (42.0-52.0) % MCV 87.1 (80.0-98.0) fL MCH 27.0 (27.0-33.0) pg MCHC 30.9 L (31.0-36.0) g/dl RDW 15.9 (11.0-16.0) % Plt Count 517 H (160-400) X10*3/uL MPV 9.1 L (9.4-12.4) fL Immature Gran % (Auto) 0.6 H (0.0-0.4) % Neut % (Auto) 76.3 H (45-73) % Lymph % (Auto) 15.8 L (20-40) % [place] % (Auto) 6.3 (2-11) % Eos % (Auto) 0.6 (0-4) % Baso % (Auto) 0.4 (0-2) % Lymph # (Auto) 1.4 (1.2-4.9) X10*3/uL [place] # (Auto) 0.6 (0.1-1.2) X10*3/uL Eos # (Auto) 0.1 (0.0-0.4) X10*3/uL Baso # (Auto) 0.0 (0.0-0.2) X10*3/uL Abs Immat Gran (auto) 0.05 H (0.00-0.03) X10*3/uL Absolute Neuts (auto) 6.9 (2.0-8.3) x10*3/uL Absolute Nucleated RBC 0.000 (0.0-0.012) X10*3/uL Nucleated RBC % (auto) 0.0 (0.0-0.2) /100WBC PT (9.9-13.0) SEC INR (0.9-1.1) APTT (24.1-38.0) SEC Sodium (135-145) mmol/L Potassium (3.3-5.1) mmol/L Chloride (96-108) mmol/L Carbon Dioxide (22-29) mmol/L Anion Gap (12-20) BUN (9-16) mg/dL Creatinine (0.5-1.4) mg/dL Estim Creat Clear Calc Estimated GFR POC Glucose (60-115) mg/dL Random Glucose (60-115) mg/dL Lactic Acid 1.3 (0.5-2.0) mmol/L Calcium (8.4-10.2) mg/dL Total Bilirubin (0.0-1.0) mg/dL Direct Bilirubin (0.0-0.5) mg/dL AST (5-37) U/L ALT (0-40) U/L Alkaline Phosphatase (39-117) U/L Total Protein (6.5-8.0) g/dL Albumin (3.5-5.0) g/dL Urine Color Urine Appearance Urine pH (5.0-8.0) Ur Specific [place] (1.005-1.025) Urine Protein (NEG-TRACE) MG/DL Urine Glucose (UA) (NEG) MG/DL Urine Ketones (NEG) MG/DL Urine Blood (NEG) Urine Nitrite (NEG) Ur Leukocyte Esterase (NEG) Urine RBC (0) /HPF Urine WBC (0-4) /HPF Ur Squamous Epith Cells /LPF Calcium Oxalate Crystal /LPF Urine Bacteria /LPF Hyaline Casts /LPF Urine Mucus /LPF Urine Yeast /HPF Stool Occult Blood (NEGATIVE) Urine Opiates Screen Not Detected (Not Detect) Urine Fentanyl Screen Not Detected (Not Detect) Ur Barbiturates Screen Not Detected (Not Detect) Ur Phencyclidine Scrn Not Detected (Not Detect) Ur Amphetamines Screen Not Detected (Not Detect) U Benzodiazepines Scrn Not Detected (Not Detect) Urine Cocaine Screen POSITIVE H (Not Detect) U Marijuana (THC) Screen Not Detected (Not Detect) Acetone, Qual (Negative) COVID-19 (DELIA) (Negative) COVID-19 Clin Com Blood Type Antibody Screen Crossmatch <OLGA LIDIA Bernal - Last Filed: 08/30/21 19:16> Lab Results 08/30/21 08/30/21 08/30/21 Range/Units 11:54 11:54 11:54 WBC 10.7 (4.8-10.8) X10*3/uL RBC 2.86 L (4.60-5.80) X10*6/uL Hgb 7.7 L (14.0-18.0) g/dl Hct 24.0 L (42.0-52.0) % MCV 83.9 (80.0-98.0) fL MCH 26.9 L (27.0-33.0) pg MCHC 32.1 (31.0-36.0) g/dl RDW 15.7 (11.0-16.0) % Plt Count 655 H D (160-400) X10*3/uL MPV 8.5 L (9.4-12.4) fL Immature Gran % (Auto) 0.9 H (0.0-0.4) % Neut % (Auto) 74.9 H (45-73) % Lymph % (Auto) 15.5 L (20-40) % [place] % (Auto) 6.9 (2-11) % Eos % (Auto) 1.4 (0-4) % Baso % (Auto) 0.4 (0-2) % Lymph # (Auto) 1.7 (1.2-4.9) X10*3/uL [place] # (Auto) 0.7 (0.1-1.2) X10*3/uL Eos # (Auto) 0.2 (0.0-0.4) X10*3/uL Baso # (Auto) 0.0 (0.0-0.2) X10*3/uL Abs Immat Gran (auto) 0.10 H (0.00-0.03) X10*3/uL Absolute Neuts (auto) 8.0 (2.0-8.3) x10*3/uL Absolute Nucleated RBC 0.000 (0.0-0.012) X10*3/uL Nucleated RBC % (auto) 0.0 (0.0-0.2) /100WBC PT (9.9-13.0) SEC INR (0.9-1.1) APTT (24.1-38.0) SEC Sodium 135 (135-145) mmol/L Potassium 5.0 (3.3-5.1) mmol/L Chloride 100 (96-108) mmol/L Carbon Dioxide 21 L (22-29) mmol/L Anion Gap 19 (12-20) BUN 21 H (9-16) mg/dL Creatinine 1.70 H (0.5-1.4) mg/dL Estim Creat Clear Calc 54.3 Estimated GFR 43 POC Glucose (60-115) mg/dL Random Glucose 352 H* (60-115) mg/dL Lactic Acid (0.5-2.0) mmol/L Calcium 10.0 D (8.4-10.2) mg/dL Total Bilirubin 0.3 (0.0-1.0) mg/dL Direct Bilirubin 0.2 (0.0-0.5) mg/dL AST 9 (5-37) U/L ALT 14 (0-40) U/L Alkaline Phosphatase 98 (39-117) U/L Total Protein 7.8 (6.5-8.0) g/dL Albumin 3.7 (3.5-5.0) g/dL Urine Color Urine Appearance Urine pH (5.0-8.0) Ur Specific [place] (1.005-1.025) Urine Protein (NEG-TRACE) MG/DL Urine Glucose (UA) (NEG) MG/DL Urine Ketones (NEG) MG/DL Urine Blood (NEG) Urine Nitrite (NEG) Ur Leukocyte Esterase (NEG) Urine RBC (0) /HPF Urine WBC (0-4) /HPF Ur Squamous Epith Cells /LPF Calcium Oxalate Crystal /LPF Urine Bacteria /LPF Hyaline Casts /LPF Urine Mucus /LPF Urine Yeast /HPF Stool Occult Blood (NEGATIVE) Urine Opiates Screen (Not Detect) Urine Fentanyl Screen (Not Detect) Ur Barbiturates Screen (Not Detect) Ur Phencyclidine Scrn (Not Detect) Ur Amphetamines Screen (Not Detect) U Benzodiazepines Scrn (Not Detect) Urine Cocaine Screen (Not Detect) U Marijuana (THC) Screen (Not Detect) Acetone, Qual Negative (Negative) COVID-19 (DELIA) Negative (Negative) COVID-19 Clin Com See Note Blood Type Antibody Screen Crossmatch 08/30/21 08/30/21 08/30/21 Range/Units 12:31 13:27 13:44 WBC (4.8-10.8) X10*3/uL RBC (4.60-5.80) X10*6/uL Hgb (14.0-18.0) g/dl Hct (42.0-52.0) % MCV (80.0-98.0) fL MCH (27.0-33.0) pg MCHC (31.0-36.0) g/dl RDW (11.0-16.0) % Plt Count (160-400) X10*3/uL MPV (9.4-12.4) fL Immature Gran % (Auto) (0.0-0.4) % Neut % (Auto) (45-73) % Lymph % (Auto) (20-40) % [place] % (Auto) (2-11) % Eos % (Auto) (0-4) % Baso % (Auto) (0-2) % Lymph # (Auto) (1.2-4.9) X10*3/uL [place] # (Auto) (0.1-1.2) X10*3/uL Eos # (Auto) (0.0-0.4) X10*3/uL Baso # (Auto) (0.0-0.2) X10*3/uL Abs Immat Gran (auto) (0.00-0.03) X10*3/uL Absolute Neuts (auto) (2.0-8.3) x10*3/uL Absolute Nucleated RBC (0.0-0.012) X10*3/uL Nucleated RBC % (auto) (0.0-0.2) /100WBC PT 18.2 H (9.9-13.0) SEC INR 1.6 H (0.9-1.1) APTT 45.0 H D (24.1-38.0) SEC Sodium (135-145) mmol/L Potassium (3.3-5.1) mmol/L Chloride (96-108) mmol/L Carbon Dioxide (22-29) mmol/L Anion Gap (12-20) BUN (9-16) mg/dL Creatinine (0.5-1.4) mg/dL Estim Creat Clear Calc Estimated GFR POC Glucose (60-115) mg/dL Random Glucose (60-115) mg/dL Lactic Acid (0.5-2.0) mmol/L Calcium (8.4-10.2) mg/dL Total Bilirubin (0.0-1.0) mg/dL Direct Bilirubin (0.0-0.5) mg/dL AST (5-37) U/L ALT (0-40) U/L Alkaline Phosphatase (39-117) U/L Total Protein (6.5-8.0) g/dL Albumin (3.5-5.0) g/dL Urine Color Urine Appearance Urine pH (5.0-8.0) Ur Specific [place] (1.005-1.025) Urine Protein (NEG-TRACE) MG/DL Urine Glucose (UA) (NEG) MG/DL Urine Ketones (NEG) MG/DL Urine Blood (NEG) Urine Nitrite (NEG) Ur Leukocyte Esterase (NEG) Urine RBC (0) /HPF Urine WBC (0-4) /HPF Ur Squamous Epith Cells /LPF Calcium Oxalate Crystal /LPF Urine Bacteria /LPF Hyaline Casts /LPF Urine Mucus /LPF Urine Yeast /HPF Stool Occult Blood NEGATIVE (NEGATIVE) Urine Opiates Screen (Not Detect) Urine Fentanyl Screen (Not Detect) Ur Barbiturates Screen (Not Detect) Ur Phencyclidine Scrn (Not Detect) Ur Amphetamines Screen (Not Detect) U Benzodiazepines Scrn (Not Detect) Urine Cocaine Screen (Not Detect) U Marijuana (THC) Screen (Not Detect) Acetone, Qual (Negative) COVID-19 (DELIA) (Negative) COVID-19 Clin Com Blood Type A Positive Antibody Screen NEGATIVE Crossmatch See Detail 08/30/21 08/30/21 08/30/21 Range/Units 14:10 15:45 16:46 WBC (4.8-10.8) X10*3/uL RBC (4.60-5.80) X10*6/uL Hgb (14.0-18.0) g/dl Hct (42.0-52.0) % MCV (80.0-98.0) fL MCH (27.0-33.0) pg MCHC (31.0-36.0) g/dl RDW (11.0-16.0) % Plt Count (160-400) X10*3/uL MPV (9.4-12.4) fL Immature Gran % (Auto) (0.0-0.4) % Neut % (Auto) (45-73) % Lymph % (Auto) (20-40) % [place] % (Auto) (2-11) % Eos % (Auto) (0-4) % Baso % (Auto) (0-2) % Lymph # (Auto) (1.2-4.9) X10*3/uL [place] # (Auto) (0.1-1.2) X10*3/uL Eos # (Auto) (0.0-0.4) X10*3/uL Baso # (Auto) (0.0-0.2) X10*3/uL Abs Immat Gran (auto) (0.00-0.03) X10*3/uL Absolute Neuts (auto) (2.0-8.3) x10*3/uL Absolute Nucleated RBC (0.0-0.012) X10*3/uL Nucleated RBC % (auto) (0.0-0.2) /100WBC PT (9.9-13.0) SEC INR (0.9-1.1) APTT (24.1-38.0) SEC Sodium (135-145) mmol/L Potassium (3.3-5.1) mmol/L Chloride (96-108) mmol/L Carbon Dioxide (22-29) mmol/L Anion Gap (12-20) BUN (9-16) mg/dL Creatinine (0.5-1.4) mg/dL Estim Creat Clear Calc Estimated GFR POC Glucose 169 H 173 H (60-115) mg/dL Random Glucose (60-115) mg/dL Lactic Acid (0.5-2.0) mmol/L Calcium (8.4-10.2) mg/dL Total Bilirubin (0.0-1.0) mg/dL Direct Bilirubin (0.0-0.5) mg/dL AST (5-37) U/L ALT (0-40) U/L Alkaline Phosphatase (39-117) U/L Total Protein (6.5-8.0) g/dL Albumin (3.5-5.0) g/dL Urine Color YELLOW Urine Appearance CLEAR Urine pH 5.5 (5.0-8.0) Ur Specific [place] >= 1.030 H (1.005-1.025) Urine Protein TRACE (NEG-TRACE) MG/DL Urine Glucose (UA) 250 H (NEG) MG/DL Urine Ketones NEG (NEG) MG/DL Urine Blood TRACE (NEG) Urine Nitrite NEG (NEG) Ur Leukocyte Esterase NEG (NEG) Urine RBC 1-4 (0) /HPF Urine WBC 0-2 (0-4) /HPF Ur Squamous Epith Cells TRACE /LPF Calcium Oxalate Crystal TRACE /LPF Urine Bacteria TRACE /LPF Hyaline Casts 0-2 /LPF Urine Mucus 1+ /LPF Urine Yeast TRACE /HPF Stool Occult Blood (NEGATIVE) Urine Opiates Screen (Not Detect) Urine Fentanyl Screen (Not Detect) Ur Barbiturates Screen (Not Detect) Ur Phencyclidine Scrn (Not Detect) Ur Amphetamines Screen (Not Detect) U Benzodiazepines Scrn (Not Detect) Urine Cocaine Screen (Not Detect) U Marijuana (THC) Screen (Not Detect) Acetone, Qual (Negative) COVID-19 (DELIA) (Negative) COVID-19 Clin Com Blood Type Antibody Screen Crossmatch 08/30/21 08/30/21 08/30/21 Range/Units 16:46 17:07 17:35 WBC 9.1 (4.8-10.8) X10*3/uL RBC 2.56 L (4.60-5.80) X10*6/uL Hgb 6.9 L* (14.0-18.0) g/dl Hct 22.3 L (42.0-52.0) % MCV 87.1 (80.0-98.0) fL MCH 27.0 (27.0-33.0) pg MCHC 30.9 L (31.0-36.0) g/dl RDW 15.9 (11.0-16.0) % Plt Count 517 H (160-400) X10*3/uL MPV 9.1 L (9.4-12.4) fL Immature Gran % (Auto) 0.6 H (0.0-0.4) % Neut % (Auto) 76.3 H (45-73) % Lymph % (Auto) 15.8 L (20-40) % [place] % (Auto) 6.3 (2-11) % Eos % (Auto) 0.6 (0-4) % Baso % (Auto) 0.4 (0-2) % Lymph # (Auto) 1.4 (1.2-4.9) X10*3/uL [place] # (Auto) 0.6 (0.1-1.2) X10*3/uL Eos # (Auto) 0.1 (0.0-0.4) X10*3/uL Baso # (Auto) 0.0 (0.0-0.2) X10*3/uL Abs Immat Gran (auto) 0.05 H (0.00-0.03) X10*3/uL Absolute Neuts (auto) 6.9 (2.0-8.3) x10*3/uL Absolute Nucleated RBC 0.000 (0.0-0.012) X10*3/uL Nucleated RBC % (auto) 0.0 (0.0-0.2) /100WBC PT (9.9-13.0) SEC INR (0.9-1.1) APTT (24.1-38.0) SEC Sodium (135-145) mmol/L Potassium (3.3-5.1) mmol/L Chloride (96-108) mmol/L Carbon Dioxide (22-29) mmol/L Anion Gap (12-20) BUN (9-16) mg/dL Creatinine (0.5-1.4) mg/dL Estim Creat Clear Calc Estimated GFR POC Glucose (60-115) mg/dL Random Glucose (60-115) mg/dL Lactic Acid 1.3 (0.5-2.0) mmol/L Calcium (8.4-10.2) mg/dL Total Bilirubin (0.0-1.0) mg/dL Direct Bilirubin (0.0-0.5) mg/dL AST (5-37) U/L ALT (0-40) U/L Alkaline Phosphatase (39-117) U/L Total Protein (6.5-8.0) g/dL Albumin (3.5-5.0) g/dL Urine Color Urine Appearance Urine pH (5.0-8.0) Ur Specific [place] (1.005-1.025) Urine Protein (NEG-TRACE) MG/DL Urine Glucose (UA) (NEG) MG/DL Urine Ketones (NEG) MG/DL Urine Blood (NEG) Urine Nitrite (NEG) Ur Leukocyte Esterase (NEG) Urine RBC (0) /HPF Urine WBC (0-4) /HPF Ur Squamous Epith Cells /LPF Calcium Oxalate Crystal /LPF Urine Bacteria /LPF Hyaline Casts /LPF Urine Mucus /LPF Urine Yeast /HPF Stool Occult Blood (NEGATIVE) Urine Opiates Screen Not Detected (Not Detect) Urine Fentanyl Screen Not Detected (Not Detect) Ur Barbiturates Screen Not Detected (Not Detect) Ur Phencyclidine Scrn Not Detected (Not Detect) Ur Amphetamines Screen Not Detected (Not Detect) U Benzodiazepines Scrn Not Detected (Not Detect) Urine Cocaine Screen POSITIVE H (Not Detect) U Marijuana (THC) Screen Not Detected (Not Detect) Acetone, Qual (Negative) COVID-19 (DELIA) (Negative) COVID-19 Clin Com Blood Type Antibody Screen Crossmatch <Sukhdev Casey MD - Last Filed: 08/30/21 16:39> Critical Care Time Critical Care Time Critical Care Time: Yes <OLGA LIDIA Bernal - Last Filed: 08/30/21 19:16> Total Critical Care Time: 60 <OLGA LIDIA Bernal - Last Filed: 08/30/21 19:16> Attestation: I attest to this time spent taking care of the patient dressing change, speaking to specialist, consent for blood transfusion <OLGA LIDIA Bernal - Last Filed: 08/30/21 19:16> Discharge Plan Discharge Clinical Impression: Orthostatic hypotension, Nausea & vomiting, Gastroenteritis Anemia Qualifiers: Anemia type: unspecified type Qualified Code(s): D64.9 - Anemia, unspecified <OLGA LIDIA Bernal - Last Filed: 08/30/21 19:16> Patient Disposition: Admitted As Inpatient <OLGA LIDIA Bernal - Last Filed: 08/30/21 19:16>
[2021-08-30 12:08] LABS: Basophils Percent Auto 0.4 % (0-2); Eosinophils Absolute Auto 0.2 X10*3/uL (0.0-0.4); Eosinophils Percent Auto 1.4 % (0-4); Hemoglobin 7.7 g/dl (14.0-18.0); Imm Gran Pct Auto 0.9 % (0.0-0.4); Lymphocytes Absolute Auto 1.7 X10*3/uL (1.2-4.9); Lymphocytes Percent Auto 15.5 % (20-40); Mean Corpuscular HGB Conc 32.1 g/dl (31.0-36.0); Mean Corpuscular Hemoglobin 26.9 pg (27.0-33.0); Mean Corpuscular Volume 83.9 fL (80.0-98.0); Mean Platelet Volume 8.5 fL (9.4-12.4); Monocytes Absolute Auto 0.7 X10*3/uL (0.1-1.2); Monocytes Percent Auto 6.9 % (2-11); Neutrophils Percent Auto 74.9 % (45-73); Platelet Count 655 X10*3/uL (160-400); Red Blood Count 2.86 X10*6/uL (4.60-5.80); Red Cell Distribution Width 15.7 % (11.0-16.0); White Blood Count 10.7 X10*3/uL (4.8-10.8)
[2021-08-30 12:20] LABS: COVID-19 Test Negative (Negative); IDNOW Serial# 08D9AD1C
--- NOTE | 2021-08-30 12:31 | PC.NURSE ---
skin pale, warm dry at arrival to bed positive orthos with sitting only. states lllast bm was normal this am. and emisis is clear/frothy. axix3. 2l nc applied. lowe conjunctia is extremely pale
[2021-08-30 12:34] LABS: Alanine Aminotransferase 14 U/L (0-40); Albumin Level 3.7 g/dL (3.5-5.0); Alkaline Phosphatase 98 U/L (39-117); Anion Gap 19 (12-20); Aspartate Amino Transferase 9 U/L (5-37); Bilirubin Direct 0.2 mg/dL (0.0-0.5); Bilirubin Total 0.3 mg/dL (0.0-1.0); Blood Urea Nitrogen 21 mg/dL (9-16); Carbon Dioxide 21 mmol/L (22-29); Chloride 100 mmol/L (96-108); Creatinine Clr Calc Pharmacy 54.3; Estimated Glomerular Filt Rate 43; Glucose Random 352 mg/dL (60-115); Sodium 135 mmol/L (135-145); Total Protein 7.8 g/dL (6.5-8.0)
[2021-08-30 12:46] LABS: INTERNATIONAL NORM RATIO 1.6 (0.9-1.1); Prothrombin Time 18.2 SEC (9.9-13.0)
[2021-08-30] MEDS: ondansetron HCL 4 MG/2 ML VIAL IVPUSH (13:05)
[2021-08-30] MEDS: 0.9 % Sodium Chloride 1,000 ML 999 ML IV ×3 (13:06→16:43)
[2021-08-30] MEDS: Insulin Regular, Human 100 UNIT/ML 3 ML VIAL IVPUSH (13:14)
[2021-08-30 13:31] LABS: OBS Int Ctl Valid YES; OBS1 NEGATIVE (NEGATIVE)
[2021-08-30 14:14] LABS: Glucose, Whole Blood 169 mg/dL (60-115)
--- NOTE | 2021-08-30 14:49 | PC.NURSE ---
states he feels better. resting quietly. remains pale.
[2021-08-30 15:48] LABS: Glucose, Whole Blood 173 mg/dL (60-115)
[2021-08-30 16:08] LABS: Acetone, serum QL Negative (Negative)
[2021-08-30 16:56] LABS: Appearance Urine CLEAR; Color Urine YELLOW; Glucose Urine UA 250 MG/DL (NEG); Leukocyte Esterase Urine NEG (NEG); Nitrite Urine NEG (NEG); PH 5.5 (5.0-8.0); Specific Gravity - Urine >= 1.030 (1.005-1.025); UACC Culture Trigger NO; Urine Blood TRACE (NEG); Urine Ketones NEG (NEG); Urine Protein TRACE MG/DL (NEG-TRACE)
[2021-08-30 17:19] LABS: Amphetamine Screen Urine Not Detected (Not Detect); Barbiturates, Urine Not Detected (Not Detect); Benzodiazepines Screen Urine Not Detected (Not Detect); Cannabinoid Screen Urine Not Detected (Not Detect); Cocaine Screen Urine POSITIVE (Not Detect); Fentanyl, urine Not Detected (Not Detect); Opiate Screen Urine Not Detected (Not Detect); Phencyclidine Screen Urine Not Detected (Not Detect)
[2021-08-30 17:22] LABS: Lactic Acid 1.3 mmol/L (0.5-2.0)
[2021-08-30 17:28] LABS: Bacteria Urine TRACE /LPF; Mucus Urine 1+ /LPF; Squamous Epithelial Cell Urine TRACE /LPF; WBC Urine 0-2 /HPF (0-4)
[2021-08-30 17:29] LABS: Calcium Oxalate Crystals Urine TRACE /LPF; Hyaline Casts Urine 0-2 /LPF
[2021-08-30 17:39] LABS: MANUAL DIFF FLAG NO
[2021-08-30 17:48] LABS: Basophils Percent Auto 0.4 % (0-2); Eosinophils Absolute Auto 0.1 X10*3/uL (0.0-0.4); Eosinophils Percent Auto 0.6 % (0-4); Hematocrit 22.3 % (42.0-52.0); Imm Gran Abs Auto 0.05 X10*3/uL (0.00-0.03); Imm Gran Pct Auto 0.6 % (0.0-0.4); Lymphocytes Absolute Auto 1.4 X10*3/uL (1.2-4.9); Lymphocytes Percent Auto 15.8 % (20-40); Mean Corpuscular HGB Conc 30.9 g/dl (31.0-36.0); Mean Corpuscular Volume 87.1 fL (80.0-98.0); Mean Platelet Volume 9.1 fL (9.4-12.4); Monocytes Absolute Auto 0.6 X10*3/uL (0.1-1.2); Monocytes Percent Auto 6.3 % (2-11); Neutrophils Absolute Auto 6.9 x10*3/uL (2.0-8.3); Neutrophils Percent Auto 76.3 % (45-73); Platelet Count 517 X10*3/uL (160-400); Red Blood Count 2.56 X10*6/uL (4.60-5.80); Red Cell Distribution Width 15.9 % (11.0-16.0); White Blood Count 9.1 X10*3/uL (4.8-10.8)
[2021-08-30 17:53] LABS: Hemoglobin 6.9 g/dl (14.0-18.0)
--- NOTE | 2021-08-30 18:12 | PC.NURSE ---
tolerating transfusion well. no reaction. unlabored resp. ls cta.
[2021-08-30 19:27] LABS: C Reactive Protein 8.67 mg/dL (< or = 0.50)
--- NOTE | 2021-08-30 19:53 | P.HPHOSP_ITS ---
History of Present Illness Date of Service: 08/30/21 Chief Complaint: hypotensive, vomiting this is a 50-year-old male with past medical history of diabetes, osteomyelitis status post amputation of right 4th metatarsal, as well as the status post amputation of left transmetatarsal who presents to the hospital after being sent [facility] for hypotension and tachycardia. Patient was recently discharged from the hospital on 07/12 after having sepsis secondary to diabetic foot infection/acute osteomyelitis/abscess of left foot. At that time he was started on broad spectrum IV antibiotics, lower extremity arterial ultrasound showed occlusion of the left mid SFA, he was seen by vascular surgery and underwent left SFA atherectomy/ stenting on July 03. At that time he was also found to have a left SFA occlusion with a soft plates concerning for embolic event, patient was started on Eliquis. MRI on previous admission showed left foot osteomyelitis with abscess and soft tissue gas. He underwent left transmetatarsal amputation 07/04. It was noted that his left amputation site was not healing well, further amputation was discussed with the patient but he declined and was eager to be discharged home. He was seen by infectious disease and did not require long-term antibiotics at the time. He was sent home a 10 day course of doxycycline and Augmentin which patient reports was compliant and finished. since being discharged on 07/12 patient has been following [facility] but today developed hypotension while in the hyperbaric chamber and had tachycardia and therefore sent to the ED. He is also complaining of nausea, vomiting, as well as dizziness, he has had about 2-3 episodes of diarrhea per day for the past 2-3 days. He has also noticed black stool for the past 3 days, urine output has also decreased he denies any fever, he has some chills, no chest pain, no shortness of breath, no cough, no urinary symptoms. On arrival to the ED patient vitals are significant for temp of 98.7?, heart rate of 118, respiratory rate of 18, blood pressure of 82/57, satting 97% on room air. Patient received sepsis fluid with improvement in his blood pressure. Labs are significant for WBC count of 10.7, hemoglobin of 7.7 which dropped to 6.9 after IV fluids, hematocrit 24, platelet count of 655, ESR of more than 140, PT of 18.2, INR 1.6, creatinine of 1.7 with 1.0 glucose of 352, lactic acid of 1.3, CRP of 8.6, UA negative for infection, stool occult blood negative, UDS positive for cocaine. COVID-19 negative patient will be admitted further manage Review of Systems Review of Systems: Yes all other systems are reviewed and are negative [facility] Medical History Bacteremia Diabetes Diabetic foot ulcer Gangrene of toe of left foot GERD (gastroesophageal reflux disease) History of angiography PAD (peripheral artery disease) PICC (peripherally inserted central catheter) in place Family History Other Diabetes Surgical History Amputated toe of right foot (11/05/20) Social History Household Members: Spouse Housing: Apartment Do you presently have visiting nurse or other home services: No Alcohol intake: never Patient Tobacco Use Status: Former Tobacco user Tobacco use type: Cigarette Years Smoked: 15 Second Hand Smoke Exposure: No Use of substances other than those prescribed or required for medical reasons: No Have you been hit, kicked, punched, or otherwise hurt by someone within the past year? If so, by whom?: No Do you feel safe in your current relationship?: No Is there a partner from a previous relationship who is making you feel unsafe now?: No Are you made to feel afraid or neglected: No Advance Directives: No Advance Directives Information Provided: Yes Do you have thoughts of harming others: None Do you have a plan to hurt others: No Plan Recently lost weight without trying: No Nutrition Risks: No Nutritional Risk Poor oral hygiene: No service: No Current occupational status: employed Meds Allergies Allergy/AdvReac Type Severity Reaction Status Date / Time No Known Allergies Allergy Verified 07/23/21 09:50 Active Medications: Current Medications Pharmacy Consult (Consult Rx Perform Med Rec) 1 each MISCELLANE ONCE PRN PRN Reason: Consult order Home Medications Medication Instructions Recorded Confirmed Last Taken Type metformin 1,000 mg tablet 1 tab PO BID 10/31/20 08/30/21 08/30/21 History blood sugar diagnostic #10 ea 11/20/20 06/30/21 Unknown History pen needle, diabetic 32 gauge x #50 ea 11/20/20 06/30/21 Unknown History atorvastatin 40 mg tablet 1 tab PO DAILY 06/30/21 08/30/21 08/30/21 History insulin glargine 100 unit/mL (3 15 unit SUBCUT BID 06/30/21 08/30/21 08/30/21 History mL) subcutaneous pen (Basaglar KwikPen U-100 Insulin) aspirin 81 mg tablet,delayed 1 tab PO DAILY 08/30/21 08/30/21 08/30/21 History release dulaglutide 1.5 mg/0.5 mL 1.5 mg SUBCUT Q7D 08/30/21 08/30/21 08/30/21 History subcutaneous pen injector (Trulicity) levofloxacin 750 mg tablet 1 tab PO DAILY 08/30/21 08/30/21 08/30/21 History Physical Exam Vital Signs and Narrative: Vital Signs: Last Vital Signs Temp 97.9 F 08/30/21 18:04 Pulse 103 H 08/30/21 18:04 Resp 18 08/30/21 18:04 BP 125/92 H 08/30/21 18:04 Pulse Ox 100 08/30/21 18:00 BMI result Body Mass Index 28.1 Const: General: cooperative and no acute distress Orientation/consciousness: patient oriented x3 Eyes: General: appearance normal, both eyes and all related structures Pupils: Equal, round and reactive pupils present Resp: Effort & Inspection: normal respiratory effort Auscultation: clear to auscultation bilaterally Cardio: Rate: regular rate Rhythm: regular rhythm GI: Palpation (GI): Soft to palpation Auscultation: normal bowel sounds Skin: Other: left transmetatarsal, wound looks infected Neuro: General: patient oriented x3 Cranial nerves: Yes Equal, round and reactive pupils present Cognition (Neuro): normal cognition Extrem: Other: right foot 4th metatarsal amputation well healed left foot, transmetatarsal, nonhealing wound Results Labs CBC and Chem 7: 08/30/21 17:35 08/30/21 11:54 Labs: Laboratory Results - last 24 hr 08/30/21 08/30/21 08/30/21 11:54 11:54 11:54 MCV 83.9 MCH 26.9 L MCHC 32.1 RDW 15.7 Plt Count 655 H D MPV 8.5 L Immature Gran % (Auto) 0.9 H Neut % (Auto) 74.9 H Lymph % (Auto) 15.5 L [place] % (Auto) 6.9 Eos % (Auto) 1.4 Baso % (Auto) 0.4 Lymph # (Auto) 1.7 [place] # (Auto) 0.7 Eos # (Auto) 0.2 Baso # (Auto) 0.0 Abs Immat Gran (auto) 0.10 H Absolute Neuts (auto) 8.0 Absolute Nucleated RBC 0.000 Nucleated RBC % (auto) 0.0 PT INR APTT Anion Gap 19 Estim Creat Clear Calc 54.3 Estimated GFR 43 POC Glucose Random Glucose 352 H* Lactic Acid Calcium 10.0 D Total Bilirubin 0.3 Direct Bilirubin 0.2 AST 9 ALT 14 Alkaline Phosphatase 98 C-Reactive Protein 8.67 H Total Protein 7.8 Albumin 3.7 Urine Color Urine Appearance Urine pH Ur Specific [place] Urine Protein Urine Glucose (UA) Urine Ketones Urine Blood Urine Nitrite Ur Leukocyte Esterase Urine RBC Urine WBC Ur Squamous Epith Cells Calcium Oxalate Crystal Urine Bacteria Hyaline Casts Urine Mucus Urine Yeast Stool Occult Blood Urine Opiates Screen Urine Fentanyl Screen Ur Barbiturates Screen Ur Phencyclidine Scrn Ur Amphetamines Screen U Benzodiazepines Scrn Urine Cocaine Screen U Marijuana (THC) Screen Acetone, Qual Negative COVID-19 (DELIA) Negative COVID-19 Clin Com See Note Blood Type Antibody Screen Crossmatch 08/30/21 08/30/21 08/30/21 12:31 13:27 13:44 MCV MCH MCHC RDW Plt Count MPV Immature Gran % (Auto) Neut % (Auto) Lymph % (Auto) [place] % (Auto) Eos % (Auto) Baso % (Auto) Lymph # (Auto) [place] # (Auto) Eos # (Auto) Baso # (Auto) Abs Immat Gran (auto) Absolute Neuts (auto) Absolute Nucleated RBC Nucleated RBC % (auto) PT 18.2 H INR 1.6 H APTT 45.0 H D Anion Gap Estim Creat Clear Calc Estimated GFR POC Glucose Random Glucose Lactic Acid Calcium Total Bilirubin Direct Bilirubin AST ALT Alkaline Phosphatase C-Reactive Protein Total Protein Albumin Urine Color Urine Appearance Urine pH Ur Specific [place] Urine Protein Urine Glucose (UA) Urine Ketones Urine Blood Urine Nitrite Ur Leukocyte Esterase Urine RBC Urine WBC Ur Squamous Epith Cells Calcium Oxalate Crystal Urine Bacteria Hyaline Casts Urine Mucus Urine Yeast Stool Occult Blood NEGATIVE Urine Opiates Screen Urine Fentanyl Screen Ur Barbiturates Screen Ur Phencyclidine Scrn Ur Amphetamines Screen U Benzodiazepines Scrn Urine Cocaine Screen U Marijuana (THC) Screen Acetone, Qual COVID-19 (DELIA) COVID-19 Clin Com Blood Type A Positive Antibody Screen NEGATIVE Crossmatch See Detail 08/30/21 08/30/21 08/30/21 14:10 15:45 16:46 MCV MCH MCHC RDW Plt Count MPV Immature Gran % (Auto) Neut % (Auto) Lymph % (Auto) [place] % (Auto) Eos % (Auto) Baso % (Auto) Lymph # (Auto) [place] # (Auto) Eos # (Auto) Baso # (Auto) Abs Immat Gran (auto) Absolute Neuts (auto) Absolute Nucleated RBC Nucleated RBC % (auto) PT INR APTT Anion Gap Estim Creat Clear Calc Estimated GFR POC Glucose 169 H 173 H Random Glucose Lactic Acid Calcium Total Bilirubin Direct Bilirubin AST ALT Alkaline Phosphatase C-Reactive Protein Total Protein Albumin Urine Color YELLOW Urine Appearance CLEAR Urine pH 5.5 Ur Specific [place] >= 1.030 H Urine Protein TRACE Urine Glucose (UA) 250 H Urine Ketones NEG Urine Blood TRACE Urine Nitrite NEG Ur Leukocyte Esterase NEG Urine RBC 1-4 Urine WBC 0-2 Ur Squamous Epith Cells TRACE Calcium Oxalate Crystal TRACE Urine Bacteria TRACE Hyaline Casts 0-2 Urine Mucus 1+ Urine Yeast TRACE Stool Occult Blood Urine Opiates Screen Urine Fentanyl Screen Ur Barbiturates Screen Ur Phencyclidine Scrn Ur Amphetamines Screen U Benzodiazepines Scrn Urine Cocaine Screen U Marijuana (THC) Screen Acetone, Qual COVID-19 (DELIA) COVID-19 Clin Com Blood Type Antibody Screen Crossmatch 08/30/21 08/30/21 08/30/21 16:46 17:07 17:35 MCV 87.1 MCH 27.0 MCHC 30.9 L RDW 15.9 Plt Count 517 H MPV 9.1 L Immature Gran % (Auto) 0.6 H Neut % (Auto) 76.3 H Lymph % (Auto) 15.8 L [place] % (Auto) 6.3 Eos % (Auto) 0.6 Baso % (Auto) 0.4 Lymph # (Auto) 1.4 [place] # (Auto) 0.6 Eos # (Auto) 0.1 Baso # (Auto) 0.0 Abs Immat Gran (auto) 0.05 H Absolute Neuts (auto) 6.9 Absolute Nucleated RBC 0.000 Nucleated RBC % (auto) 0.0 PT INR APTT Anion Gap Estim Creat Clear Calc Estimated GFR POC Glucose Random Glucose Lactic Acid 1.3 Calcium Total Bilirubin Direct Bilirubin AST ALT Alkaline Phosphatase C-Reactive Protein Total Protein Albumin Urine Color Urine Appearance Urine pH Ur Specific [place] Urine Protein Urine Glucose (UA) Urine Ketones Urine Blood Urine Nitrite Ur Leukocyte Esterase Urine RBC Urine WBC Ur Squamous Epith Cells Calcium Oxalate Crystal Urine Bacteria Hyaline Casts Urine Mucus Urine Yeast Stool Occult Blood Urine Opiates Screen Not Detected Urine Fentanyl Screen Not Detected Ur Barbiturates Screen Not Detected Ur Phencyclidine Scrn Not Detected Ur Amphetamines Screen Not Detected U Benzodiazepines Scrn Not Detected Urine Cocaine Screen POSITIVE H U Marijuana (THC) Screen Not Detected Acetone, Qual COVID-19 (DELIA) COVID-19 Clin Com Blood Type Antibody Screen Crossmatch Imaging Radiologist's Impressions: Impressions Abdomen/Pelvis CT 08/30/21 14:06 IMPRESSION: 1. Large amount of stool throughout colon cecum to rectum. No proximal obstruction or focal inflammatory changes. 2. No hydronephrosis or hydroureter. 3. No biliary ductal dilatation. Assessment and Plan (1) Nausea & vomiting: Status: Acute (2) Gastroenteritis: Status: Acute (3) Osteomyelitis: Status: Acute (4) Diabetic foot ulcer: Status: Acute (5) Peripheral vascular disease: Status: Acute (6) Sepsis: Status: Acute (7) Anemia of chronic disease: Status: Acute (8) ALEKSANDR (acute kidney injury): Status: Acute 50-year-old male with past medical history of PD as well as diabetes with complication of osteomyelitis and nonhealing diabetic wounds presents to the hospital with sepsis like picture # sepsis - hypotensive, tachycardic, - no leukocytosis, afebrile - most likely source is left foot nonhealing wound status post metatarsal amputation - will start patient on broad-spectrum IV antibiotics - follow cultures - infectious Disease consulted # history of osteomyelitis, diabetic foot ulcer - extensive history mentioned in HPI, to summarize patient had osteomyelitis of the left foot in June, as well as found to have embolic event in the SFA status post atherectomy and stenting as well as metatarsal amputation - at the time there was concern of nonhealing but patient refused amputation - returns now noted with elevated ESR and CRP - will start patient on broad-spectrum IV antibiotics - MRI of the left foot - consult infectious disease - consult vascular surgery who was following pt on previous admission for the same # anemia - presented with a hemoglobin of 7.7 dropped to 6.9 post IV hydration - was evaluated by Hematology-Oncology on previous admission found to be sec ondary to chronic disease - patient is status post 2 units of PRBC in ED - follow H&H - initially consulted GI but given his history of anemia secondary to chronic disease will cancel the consult. FOBT negative # peripheral vascular disease - patient was found to have a possible embolic event on previous admission - given anemia and patient's recount of black stools, will hold at this time - vascular surgery consulted # diabetes - continue home insulin - low-dose sliding scale insulin - diabetic diet # nausea vomiting as well as diarrhea - abdominal CT shows large amount of stool throughout the colon cecum to rectum, no proximal obstruction or focal inflammatory changes - diarrhea is most likely overflow - will start with MiraLax daily as well as p.r.n.milk of magnesia # ALEKSANDR - most likely secondary to dehydration as well as acute infection /sepsis and hypotension - IV fluids - follow BMP DVT prophylaxis: Lovenox Quality Stroke Does the patient have a stroke diagnosis?: No VTE Prior VTE?: No VTE Risk Level:: Medical - moderate - high VTE Device Contraindication: Treatment Not Indicated VTE Drug Contraindication: N/A - Med Ordered
--- NOTE | 2021-08-30 20:00 | PC.NURSE ---
transfusion ended at this time. pt to MRI in stretcher in nad.
[2021-08-30 20:47] LABS: Erythrocyte Sedimentation Rate > 140 MM/HR (0-15)
[2021-08-31] VITALS (9 sets, daily range): BP systolic 110–163; BP diastolic 83–95; PULSE 82–94; RESP 16–20; TEMP 36.6–37; O2SAT 97–99; BMI 28.1
--- NOTE | 2021-08-31 01:42 | PC.NURSE ---
2nd unit PRBC up and running w/o difficulty.
[2021-08-31] MEDS: 0.9 % Sodium Chloride Flush 3 ML SYRINGE IVFLUSH ×3 (01:48→16:10)
[2021-08-31 01:55] LABS: Glucose, Whole Blood 247 mg/dL (60-115)
[2021-08-31] MEDS: Insulin Lispro 100 UNIT/ML 3 ML VIAL SUBCUT ×5 (01:58→21:06)
[2021-08-31] MEDS: Insulin Glargine,Hum.rec.anlog 100 UNIT/ML 10 ML VIAL 15 UNIT SUBCUT ×3 (01:58→21:07)
[2021-08-31] MEDS: Piperacillin Sodium/Tazobactam 3.375 GM in 0.9 % Sodium Chloride 50 ML IV ×4 (02:33→18:00)
[2021-08-31] MEDS: vancomycin HCL 1,250 MG in 0.9 % Sodium Chloride 250 ML 166.67 MG IV (03:39)
--- NOTE | 2021-08-31 03:51 | PC.NURSE ---
admission completed by RN. Pt awaiting for room assignment.
[2021-08-31 07:20] LABS: Glucose, Whole Blood 179 mg/dL (60-115)
--- NOTE | 2021-08-31 07:42 | P.PNIM_ITS ---
Subjective Subjective Date of Service: 09/02/21 Interval History: non healing wound,anemia Review of Systems Denies any chest pain shortness of breath or fever or chills or cough or phlegm. Feels otherwise tired and weak Physical Exam Vital Signs: Vital Signs: Last Vital Signs Temp 98 F 08/31/21 02:30 Pulse 89 08/31/21 02:30 Resp 18 08/31/21 02:30 BP 163/95 H 08/31/21 02:30 Pulse Ox 99 08/31/21 01:49 BMI result Body Mass Index 28.1 physical exam: Appearance: Alert.? Oriented X3.? not in distress.? ENT: Pharynx normal.? Moist mucous membranes. cvs: rrr, [id number] , no murmur res: clear to auscultation ,no rhonchii or wheezing abd: no rebound or guarding ,nt, bs present. ext :left: wound on the entire transmetatarsal amputation site-granulating, p atches of fibrous exudates, no necrosis or flacuatation. neuro: axo3 , nonfocal. Objective Data Active Medications Acetaminophen (Acetaminophen 325 Mg Tablet) 650 mg PO Q6H PRN PRN Reason: Pain, Mild (Pain Scale 1-3) Atorvastatin Calcium (Atorvastatin Calcium 40 Mg Tablet) 40 mg PO DAILY [facility] Dextrose (Dextrose 50 % 25 Gm/50 Ml Vial) 25 gm IVPUSH Q15M PRN; Protocol PRN Reason: per Hypoglycemia Standing Ord. Glucose (Glucose Gel 15 Gm Gel..Gram.) 15 gm PO Q15M PRN; Protocol PRN Reason: per Hypoglycemia Standing Ord. Lactated Ringer's (Lr) 1,000 mls @ 100 mls/hr IVCONT .Q10H [facility] Last Admin: 08/31/21 01:41 Dose: Not Given Documented by: RAMY Non-Admin Reason: IV Running Vancomycin HCl 1,250 mg/ (Sodium Chloride) 250 mls @ 166.667 mls/hr IV Q8H [facility] Piperacillin Sod/Tazobactam (Sod 3.375 gm/ Sodium Chloride) 50 mls @ 100 mls/hr IV Q6H [facility] Last Infusion: 08/31/21 06:01 Dose: 0 mls/hr Documented by: ALISIA Insulin Glargine (Insulin Glargine,Hum.Rec.Anlog 100 Unit/Ml 10 Ml Vial) 15 unit SUBCUT BID [facility] Last Admin: 08/31/21 01:58 Dose: 15 unit Documented by: RAMY Insulin Human Lispro (Insulin Lispro 100 Unit/Ml 3 Ml Vial) 0 unit SUBCUT QIDACHS [facility]; Protocol Last Admin: 08/31/21 07:41 Dose: 2 unit Documented by: EPHRAIM Magnesium Hydroxide (Milk Of Magnesia 30 Ml Oral.Susp) 30 ml PO DAILY PRN PRN Reason: Constipation Omeprazole (Omeprazole 20 Mg Capsule.Dr) 20 mg PO BID@0630,1630 [facility] Ondansetron HCl (Ondansetron Hcl 4 Mg/2 Ml Vial) 4 mg IVPUSH Q8H PRN PRN Reason: Nausea and Vomiting Pharmacy Consult (Consult Rx Perform Med Rec) 1 each MISCELLANE ONCE PRN PRN Reason: Consult order Pharmacy Consult (Consult Rx Vancomycin Dosing) 1 each MISCELLANE DAILY PRN PRN Reason: Consult order Polyethylene Glycol (Polyethylene Glycol 3350 17 Gm Powd.Pack) 17 gm PO DAILY [facility] Last Admin: 08/31/21 01:41 Dose: Not Given Documented by: RAMY Non-Admin Reason: Patient Refused Sodium Chloride (0.9 % Sodium Chloride Flush 3 Ml Syringe) 3 ml IVFLUSH QSHIFT [facility] Last Admin: 08/31/21 07:41 Dose: 3 ml Documented by: EPHRAIM Labs CBC & Chem 7: 09/01/21 07:01 09/01/21 07:01 Labs: Laboratory Results - last 24 hr 08/30/21 08/30/21 08/30/21 11:54 11:54 11:54 MCV 83.9 MCH 26.9 L MCHC 32.1 RDW 15.7 Plt Count 655 H D MPV 8.5 L Immature Gran % (Auto) 0.9 H Neut % (Auto) 74.9 H Lymph % (Auto) 15.5 L [place] % (Auto) 6.9 Eos % (Auto) 1.4 Baso % (Auto) 0.4 Lymph # (Auto) 1.7 [place] # (Auto) 0.7 Eos # (Auto) 0.2 Baso # (Auto) 0.0 Abs Immat Gran (auto) 0.10 H Absolute Neuts (auto) 8.0 Absolute Nucleated RBC 0.000 Nucleated RBC % (auto) 0.0 ESR PT INR APTT Anion Gap 19 Estim Creat Clear Calc 54.3 Estimated GFR 43 POC Glucose Random Glucose 352 H* Lactic Acid Calcium 10.0 D Total Bilirubin 0.3 Direct Bilirubin 0.2 AST 9 ALT 14 Alkaline Phosphatase 98 C-Reactive Protein 8.67 H Total Protein 7.8 Albumin 3.7 Urine Color Urine Appearance Urine pH Ur Specific [place] Urine Protein Urine Glucose (UA) Urine Ketones Urine Blood Urine Nitrite Ur Leukocyte Esterase Urine RBC Urine WBC Ur Squamous Epith Cells Calcium Oxalate Crystal Urine Bacteria Hyaline Casts Urine Mucus Urine Yeast Stool Occult Blood Urine Opiates Screen Urine Fentanyl Screen Ur Barbiturates Screen Ur Phencyclidine Scrn Ur Amphetamines Screen U Benzodiazepines Scrn Urine Cocaine Screen U Marijuana (THC) Screen Acetone, Qual Negative COVID-19 (DELIA) Negative COVID-19 Clin Com See Note Blood Type Antibody Screen Crossmatch 08/30/21 08/30/21 08/30/21 12:31 13:27 13:44 MCV MCH MCHC RDW Plt Count MPV Immature Gran % (Auto) Neut % (Auto) Lymph % (Auto) [place] % (Auto) Eos % (Auto) Baso % (Auto) Lymph # (Auto) [place] # (Auto) Eos # (Auto) Baso # (Auto) Abs Immat Gran (auto) Absolute Neuts (auto) Absolute Nucleated RBC Nucleated RBC % (auto) ESR PT 18.2 H INR 1.6 H APTT 45.0 H D Anion Gap Estim Creat Clear Calc Estimated GFR POC Glucose Random Glucose Lactic Acid Calcium Total Bilirubin Direct Bilirubin AST ALT Alkaline Phosphatase C-Reactive Protein Total Protein Albumin Urine Color Urine Appearance Urine pH Ur Specific [place] Urine Protein Urine Glucose (UA) Urine Ketones Urine Blood Urine Nitrite Ur Leukocyte Esterase Urine RBC Urine WBC Ur Squamous Epith Cells Calcium Oxalate Crystal Urine Bacteria Hyaline Casts Urine Mucus Urine Yeast Stool Occult Blood NEGATIVE Urine Opiates Screen Urine Fentanyl Screen Ur Barbiturates Screen Ur Phencyclidine Scrn Ur Amphetamines Screen U Benzodiazepines Scrn Urine Cocaine Screen U Marijuana (THC) Screen Acetone, Qual COVID-19 (DELIA) COVID-19 Clin Com Blood Type A Positive Antibody Screen NEGATIVE Crossmatch See Detail 08/30/21 08/30/21 08/30/21 14:10 15:45 16:46 MCV MCH MCHC RDW Plt Count MPV Immature Gran % (Auto) Neut % (Auto) Lymph % (Auto) [place] % (Auto) Eos % (Auto) Baso % (Auto) Lymph # (Auto) [place] # (Auto) Eos # (Auto) Baso # (Auto) Abs Immat Gran (auto) Absolute Neuts (auto) Absolute Nucleated RBC Nucleated RBC % (auto) ESR PT INR APTT Anion Gap Estim Creat Clear Calc Estimated GFR POC Glucose 169 H 173 H Random Glucose Lactic Acid Calcium Total Bilirubin Direct Bilirubin AST ALT Alkaline Phosphatase C-Reactive Protein Total Protein Albumin Urine Color YELLOW Urine Appearance CLEAR Urine pH 5.5 Ur Specific [place] >= 1.030 H Urine Protein TRACE Urine Glucose (UA) 250 H Urine Ketones NEG Urine Blood TRACE Urine Nitrite NEG Ur Leukocyte Esterase NEG Urine RBC 1-4 Urine WBC 0-2 Ur Squamous Epith Cells TRACE Calcium Oxalate Crystal TRACE Urine Bacteria TRACE Hyaline Casts 0-2 Urine Mucus 1+ Urine Yeast TRACE Stool Occult Blood Urine Opiates Screen Urine Fentanyl Screen Ur Barbiturates Screen Ur Phencyclidine Scrn Ur Amphetamines Screen U Benzodiazepines Scrn Urine Cocaine Screen U Marijuana (THC) Screen Acetone, Qual COVID-19 (DELIA) COVID-19 Clin Com Blood Type Antibody Screen Crossmatch 08/30/21 08/30/21 08/30/21 16:46 17:07 17:35 MCV 87.1 MCH 27.0 MCHC 30.9 L RDW 15.9 Plt Count 517 H MPV 9.1 L Immature Gran % (Auto) 0.6 H Neut % (Auto) 76.3 H Lymph % (Auto) 15.8 L [place] % (Auto) 6.3 Eos % (Auto) 0.6 Baso % (Auto) 0.4 Lymph # (Auto) 1.4 [place] # (Auto) 0.6 Eos # (Auto) 0.1 Baso # (Auto) 0.0 Abs Immat Gran (auto) 0.05 H Absolute Neuts (auto) 6.9 Absolute Nucleated RBC 0.000 Nucleated RBC % (auto) 0.0 ESR PT INR APTT Anion Gap Estim Creat Clear Calc Estimated GFR POC Glucose Random Glucose Lactic Acid 1.3 Calcium Total Bilirubin Direct Bilirubin AST ALT Alkaline Phosphatase C-Reactive Protein Total Protein Albumin Urine Color Urine Appearance Urine pH Ur Specific [place] Urine Protein Urine Glucose (UA) Urine Ketones Urine Blood Urine Nitrite Ur Leukocyte Esterase Urine RBC Urine WBC Ur Squamous Epith Cells Calcium Oxalate Crystal Urine Bacteria Hyaline Casts Urine Mucus Urine Yeast Stool Occult Blood Urine Opiates Screen Not Detected Urine Fentanyl Screen Not Detected Ur Barbiturates Screen Not Detected Ur Phencyclidine Scrn Not Detected Ur Amphetamines Screen Not Detected U Benzodiazepines Scrn Not Detected Urine Cocaine Screen POSITIVE H U Marijuana (THC) Screen Not Detected Acetone, Qual COVID-19 (DELIA) COVID-19 Clin Com Blood Type Antibody Screen Crossmatch 08/30/21 08/31/21 08/31/21 19:43 01:50 07:17 MCV MCH MCHC RDW Plt Count MPV Immature Gran % (Auto) Neut % (Auto) Lymph % (Auto) [place] % (Auto) Eos % (Auto) Baso % (Auto) Lymph # (Auto) [place] # (Auto) Eos # (Auto) Baso # (Auto) Abs Immat Gran (auto) Absolute Neuts (auto) Absolute Nucleated RBC Nucleated RBC % (auto) ESR > 140 H PT INR APTT Anion Gap Estim Creat Clear Calc Estimated GFR POC Glucose 247 H 179 H Random Glucose Lactic Acid Calcium Total Bilirubin Direct Bilirubin AST ALT Alkaline Phosphatase C-Reactive Protein Total Protein Albumin Urine Color Urine Appearance Urine pH Ur Specific [place] Urine Protein Urine Glucose (UA) Urine Ketones Urine Blood Urine Nitrite Ur Leukocyte Esterase Urine RBC Urine WBC Ur Squamous Epith Cells Calcium Oxalate Crystal Urine Bacteria Hyaline Casts Urine Mucus Urine Yeast Stool Occult Blood Urine Opiates Screen Urine Fentanyl Screen Ur Barbiturates Screen Ur Phencyclidine Scrn Ur Amphetamines Screen U Benzodiazepines Scrn Urine Cocaine Screen U Marijuana (THC) Screen Acetone, Qual COVID-19 (DELIA) COVID-19 Clin Com Blood Type Antibody Screen Crossmatch Assessment and Plan (1) ALEKSANDR (acute kidney injury): Status: Acute (2) Cellulitis of foot: Status: Acute Assessment and Plan: 50-year-old male with past medical history of PD as well as diabetes with complication of osteomyelitis and nonhealing diabetic wounds presents to the hospital with sepsis like picture 1.? sepsis-possible due to history of osteomyelitis, diabetic foot ulcer -? extensive history mentioned in HPI, to summarize patient had osteomyelitis of the left foot in June, as well as found to have embolic event in the SFA status post atherectomy and stenting as well as metatarsal amputation, at the time there was concern of nonhealing but patient refused amputation elevated ESR and CRP Mri -? early oseto can not be exluded. broad-spectrum IV antibiotics Seen by surgery: -Nonhealing wound at the metatarsals area- no need of debridement currently, recommended vascular follow-up. id evaluation pending 2.? anemia: presented with a hemoglobin of 7.7 dropped to 6.9 post IV hydration- was evaluated by Hematology-Oncology on previous admission found to be secondary to chronic disease patient is status post? 2 units of PRBC in ED fobt neg. repeat H&H:: 8.1 moniter h/h 3.peripheral vascular disease-? patient was found to have a possible embolic event on previous? admission h/h improved to 8.7 , occult blood neg d/w vascular surgery-open wound and hold eliquis until thursday, will moniter h/h . 4.? diabetes uncontrolled. adjusted lantus and sliding scale insulin -? diabetic diet 5.? nausea vomiting as well as diarrhea: denies any anusea vomiting today abdominal CT shows large amount of stool throughout the colon cecum to rectum, no proximal obstruction or focal inflammatory changes-?diarrhea is most likely overflow moniter on MiraLax daily as well as p.r.n.milk of magnesia 6.? ALEKSANDR-? most likely secondary to dehydration as well as acute infection /sepsis and hypotension imrpoved ?with IV fluids, encouarged for po hydration DVT prophylaxis:eliquid on hold due to low h/h,? venodynes Quality Stroke Does the patient have a stroke diagnosis?: No VTE Prior VTE?: No VTE Risk Level:: Medical - moderate - high VTE Device Contraindication: Treatment Not Indicated VTE Drug Contraindication: N/A - Med Ordered
[2021-08-31 08:22] LABS: MANUAL DIFF FLAG NO
[2021-08-31] MEDS: Atorvastatin Calcium 40 MG TABLET PO (08:24)
[2021-08-31] MEDS: Omeprazole 20 MG CAPSULE.DR PO ×2 (08:24→16:10)
[2021-08-31] MEDS: Lactated Ringers 1,000 ML 100 ML IVCONT (08:25)
[2021-08-31 08:26] LABS: Basophils Absolute Auto 0.1 X10*3/uL (0.0-0.2); Basophils Percent Auto 0.6 % (0-2); Eosinophils Absolute Auto 0.2 X10*3/uL (0.0-0.4); Hematocrit 26.7 % (42.0-52.0); Hemoglobin 8.7 g/dl (14.0-18.0); Imm Gran Abs Auto 0.06 X10*3/uL (0.00-0.03); Imm Gran Pct Auto 0.6 % (0.0-0.4); Lymphocytes Absolute Auto 1.9 X10*3/uL (1.2-4.9); Lymphocytes Percent Auto 17.3 % (20-40); Mean Corpuscular HGB Conc 32.6 g/dl (31.0-36.0); Mean Corpuscular Hemoglobin 27.2 pg (27.0-33.0); Mean Corpuscular Volume 83.4 fL (80.0-98.0); Mean Platelet Volume 8.4 fL (9.4-12.4); Monocytes Absolute Auto 0.9 X10*3/uL (0.1-1.2); Monocytes Percent Auto 8.6 % (2-11); Neutrophils Absolute Auto 7.6 x10*3/uL (2.0-8.3); Neutrophils Percent Auto 70.9 % (45-73); Platelet Count 538 X10*3/uL (160-400); Red Cell Distribution Width 15.9 % (11.0-16.0); White Blood Count 10.8 X10*3/uL (4.8-10.8)
[2021-08-31 08:59] LABS: Anion Gap 11 (12-20); Blood Urea Nitrogen 13 mg/dL (9-16); Calcium 8.8 mg/dL (8.4-10.2); Carbon Dioxide 25 mmol/L (22-29); Chloride 102 mmol/L (96-108); Creatinine Clr Calc Pharmacy 99.3; Estimated Glomerular Filt Rate > 60; Glucose Random 220 mg/dL (60-115); Potassium 4.2 mmol/L (3.3-5.1); Sodium 134 mmol/L (135-145)
--- NOTE | 2021-08-31 10:39 | PM.CNGS ---
History of Present Illness Consult details Consult date: 08/31/21 Narrative: 50-year-old male referred from a because of an open wound after a transmetatarsal amputation on the left foot. He had undergone transmetatarsal with Dr. Hammer for osteomyelitis June,. He had developed flap necrosis and had an open none wound. He was therefore referred to the wound care center and he says that he has been undergoing hyperbaric treatment for the past week. Apparently was noted to be hypotensive yesterday at the Wound Center, some nausea and vomiting so we of sent to the ER. He currently denies any nausea vomiting. He said he has been tolerating diet here in the emergency room. I was consulted because of the open wound. Review of Systems Constitutional: Constitutional: Denies chills and Denies fever(s) Cardiovascular: Cardiovascular: Denies chest pain, Denies syncope and Denies dyspnea Respiratory: Respiratory: Denies cough, Denies pain on inspiration and Denies dyspnea Gastrointestinal: Gastrointestinal: Reports loose stools, Reports nausea and Reports vomiting Genitourinary: Genitourinary: Denies dysuria Musculoskeletal: Musculoskeletal: Denies myalgias Neurologic: Denies syncope [facility] Past Medical History Medical History (Updated 08/31/21 @ 10:43 by Avelino Davila MD) Bacteremia Diabetes Diabetic foot ulcer Gangrene of toe of left foot GERD (gastroesophageal reflux disease) History of angiography Open wound PAD (peripheral artery disease) PICC (peripherally inserted central catheter) in place Family History Family History Other Diabetes Surgical History Surgical History Amputated toe of right foot (11/05/20) Social History Social History Household Members: Spouse Housing: Apartment Do you presently have visiting nurse or other home services: No Alcohol intake: never Patient Tobacco Use Status: Former Tobacco user Tobacco use type: Cigarette Years Smoked: 15 Second Hand Smoke Exposure: No Use of substances other than those prescribed or required for medical reasons: No Have you been hit, kicked, punched, or otherwise hurt by someone within the past year? If so, by whom?: No Do you feel safe in your current relationship?: No Is there a partner from a previous relationship who is making you feel unsafe now?: No Are you made to feel afraid or neglected: No Advance Directives: No Advance Directives Information Provided: Yes Do you have thoughts of harming others: None Do you have a plan to hurt others: No Plan Recently lost weight without trying: No Nutrition Risks: No Nutritional Risk Poor oral hygiene: No service: No Current occupational status: employed Meds Allergies Allergy/AdvReac Type Severity Reaction Status Date / Time No Known Allergies Allergy Verified 07/23/21 09:50 Active Medications: Current Medications Acetaminophen (Acetaminophen 325 Mg Tablet) 650 mg PO Q6H PRN PRN Reason: Pain, Mild (Pain Scale 1-3) Apixaban (Apixaban 5 Mg Tablet) 5 mg PO BID [facility] Atorvastatin Calcium (Atorvastatin Calcium 40 Mg Tablet) 40 mg PO DAILY [facility] Last Admin: 08/31/21 08:24 Dose: 40 mg Documented by: Dextrose (Dextrose 50 % 25 Gm/50 Ml Vial) 25 gm IVPUSH Q15M PRN; Protocol PRN Reason: per Hypoglycemia Standing Ord. Glucose (Glucose Gel 15 Gm Gel..Gram.) 15 gm PO Q15M PRN; Protocol PRN Reason: per Hypoglycemia Standing Ord. Piperacillin Sod/Tazobactam (Sod 3.375 gm/ Sodium Chloride) 50 mls @ 100 mls/hr IV Q6H [facility] Last Infusion: 08/31/21 06:01 Dose: Infused Documented by: Vancomycin HCl 1,000 mg/ (Sodium Chloride) 270 mls @ 270 mls/hr IV Q12H [facility] Insulin Glargine (Insulin Glargine,Hum.Rec.Anlog 100 Unit/Ml 10 Ml Vial) 15 unit SUBCUT BID [facility] Last Admin: 08/31/21 08:24 Dose: 15 unit Documented by: Insulin Human Lispro (Insulin Lispro 100 Unit/Ml 3 Ml Vial) 0 unit SUBCUT QIDACHS [facility]; Protocol Last Admin: 08/31/21 07:41 Dose: 2 unit Documented by: Magnesium Hydroxide (Milk Of Magnesia 30 Ml Oral.Susp) 30 ml PO DAILY PRN PRN Reason: Constipation Omeprazole (Omeprazole 20 Mg Capsule.) 20 mg PO BID@0630,1630 [facility] Last Admin: 08/31/21 08:24 Dose: 20 mg Documented by: Ondansetron HCl (Ondansetron Hcl 4 Mg/2 Ml Vial) 4 mg IVPUSH Q8H PRN PRN Reason: Nausea and Vomiting Pharmacy Consult (Consult Rx Perform Med Rec) 1 each MISCELLANE ONCE PRN PRN Reason: Consult order Pharmacy Consult (Consult Rx Vancomycin Dosing) 1 each MISCELLANE DAILY PRN PRN Reason: Consult order Polyethylene Glycol (Polyethylene Glycol 3350 17 Gm Powd.Pack) 17 gm PO DAILY [facility] Last Admin: 08/31/21 08:25 Dose: Not Given Documented by: Sodium Chloride (0.9 % Sodium Chloride Flush 3 Ml Syringe) 3 ml IVFLUSH QSHIFT [facility] Last Admin: 08/31/21 07:41 Dose: 3 ml Documented by: Home Medications Medication Instructions Recorded Confirmed Last Taken Type metformin 1,000 mg tablet 1 tab PO BID 10/31/20 08/30/21 08/30/21 History blood sugar diagnostic #10 ea 11/20/20 06/30/21 Unknown History pen needle, diabetic 32 gauge x #50 ea 11/20/20 06/30/21 Unknown History atorvastatin 40 mg tablet 1 tab PO DAILY 06/30/21 08/30/21 08/30/21 History insulin glargine 100 unit/mL (3 15 unit SUBCUT BID 06/30/21 08/30/21 08/30/21 History mL) subcutaneous pen (Basaglar KwikPen U-100 Insulin) aspirin 81 mg tablet,delayed 1 tab PO DAILY 08/30/21 08/30/21 08/30/21 History release dulaglutide 1.5 mg/0.5 mL 1.5 mg SUBCUT Q7D 08/30/21 08/30/21 08/30/21 History subcutaneous pen injector (Trulicity) levofloxacin 750 mg tablet 1 tab PO DAILY 08/30/21 08/30/21 08/30/21 History Physical Exam Vital Signs: Vital Signs: Last Vital Signs Temp 98.4 F 08/31/21 07:42 Pulse 82 08/31/21 07:42 Resp 16 08/31/21 07:42 BP 153/93 H 08/31/21 07:42 Pulse Ox 98 08/31/21 07:42 BMI result Body Mass Index 28.1 Const: Other: Appears comfortable and not in any distress denies any nausea vomiting or pain Resp: Auscultation: clear to auscultation bilaterally Cardio: Rate: regular rate GI: Palpation (GI): Soft to palpation and nontender Extrem: Other: Open wound on the entire transmetatarsal amputation site, about 8 x 7 cm, granulating, patches of fibrous exudates, no necrosis or gangrene spreading cellulitis Results Labs Result diagrams: 08/31/21 08:08 08/31/21 08:08 Labs: Abnormal lab results 08/30/21 08/30/21 08/30/21 Range/Units 11:54 11:54 12:31 RBC 2.86 L (4.60-5.80) X10*6/uL Hgb 7.7 L (14.0-18.0) g/dl Hct 24.0 L (42.0-52.0) % MCH 26.9 L (27.0-33.0) pg MCHC (31.0-36.0) g/dl Plt Count 655 H D (160-400) X10*3/uL MPV 8.5 L (9.4-12.4) fL Immature Gran % (Auto) 0.9 H (0.0-0.4) % Neut % (Auto) 74.9 H (45-73) % Lymph % (Auto) 15.5 L (20-40) % Abs Immat Gran (auto) 0.10 H (0.00-0.03) X10*3/uL ESR (0-15) MM/HR PT 18.2 H (9.9-13.0) SEC INR 1.6 H (0.9-1.1) APTT 45.0 H D (24.1-38.0) SEC Sodium (135-145) mmol/L Carbon Dioxide 21 L (22-29) mmol/L Anion Gap (12-20) BUN 21 H (9-16) mg/dL Creatinine 1.70 H (0.5-1.4) mg/dL POC Glucose (60-115) mg/dL Random Glucose 352 H* (60-115) mg/dL C-Reactive Protein 8.67 H (< or = 0.50) mg/dL Ur Specific [place] (1.005-1.025) Urine Glucose (UA) (NEG) MG/DL Urine Cocaine Screen (Not Detect) Crossmatch 08/30/21 08/30/21 08/30/21 Range/Units 13:44 14:10 15:45 RBC (4.60-5.80) X10*6/uL Hgb (14.0-18.0) g/dl Hct (42.0-52.0) % MCH (27.0-33.0) pg MCHC (31.0-36.0) g/dl Plt Count (160-400) X10*3/uL MPV (9.4-12.4) fL Immature Gran % (Auto) (0.0-0.4) % Neut % (Auto) (45-73) % Lymph % (Auto) (20-40) % Abs Immat Gran (auto) (0.00-0.03) X10*3/uL ESR (0-15) MM/HR PT (9.9-13.0) SEC INR (0.9-1.1) APTT (24.1-38.0) SEC Sodium (135-145) mmol/L Carbon Dioxide (22-29) mmol/L Anion Gap (12-20) BUN (9-16) mg/dL Creatinine (0.5-1.4) mg/dL POC Glucose 169 H 173 H (60-115) mg/dL Random Glucose (60-115) mg/dL C-Reactive Protein (< or = 0.50) mg/dL Ur Specific [place] (1.005-1.025) Urine Glucose (UA) (NEG) MG/DL Urine Cocaine Screen (Not Detect) Crossmatch See Detail 08/30/21 08/30/21 08/30/21 Range/Units 16:46 16:46 17:35 RBC 2.56 L (4.60-5.80) X10*6/uL Hgb 6.9 L* (14.0-18.0) g/dl Hct 22.3 L (42.0-52.0) % MCH (27.0-33.0) pg MCHC 30.9 L (31.0-36.0) g/dl Plt Count 517 H (160-400) X10*3/uL MPV 9.1 L (9.4-12.4) fL Immature Gran % (Auto) 0.6 H (0.0-0.4) % Neut % (Auto) 76.3 H (45-73) % Lymph % (Auto) 15.8 L (20-40) % Abs Immat Gran (auto) 0.05 H (0.00-0.03) X10*3/uL ESR (0-15) MM/HR PT (9.9-13.0) SEC INR (0.9-1.1) APTT (24.1-38.0) SEC Sodium (135-145) mmol/L Carbon Dioxide (22-29) mmol/L Anion Gap (12-20) BUN (9-16) mg/dL Creatinine (0.5-1.4) mg/dL POC Glucose (60-115) mg/dL Random Glucose (60-115) mg/dL C-Reactive Protein (< or = 0.50) mg/dL Ur Specific [place] >= 1.030 H (1.005-1.025) Urine Glucose (UA) 250 H (NEG) MG/DL Urine Cocaine Screen POSITIVE H (Not Detect) Crossmatch 08/30/21 08/31/21 08/31/21 Range/Units 19:43 01:50 07:17 RBC (4.60-5.80) X10*6/uL Hgb (14.0-18.0) g/dl Hct (42.0-52.0) % MCH (27.0-33.0) pg MCHC (31.0-36.0) g/dl Plt Count (160-400) X10*3/uL MPV (9.4-12.4) fL Immature Gran % (Auto) (0.0-0.4) % Neut % (Auto) (45-73) % Lymph % (Auto) (20-40) % Abs Immat Gran (auto) (0.00-0.03) X10*3/uL ESR > 140 H (0-15) MM/HR PT (9.9-13.0) SEC INR (0.9-1.1) APTT (24.1-38.0) SEC Sodium (135-145) mmol/L Carbon Dioxide (22-29) mmol/L Anion Gap (12-20) BUN (9-16) mg/dL Creatinine (0.5-1.4) mg/dL POC Glucose 247 H 179 H (60-115) mg/dL Random Glucose (60-115) mg/dL C-Reactive Protein (< or = 0.50) mg/dL Ur Specific [place] (1.005-1.025) Urine Glucose (UA) (NEG) MG/DL Urine Cocaine Screen (Not Detect) Crossmatch 08/31/21 08/31/21 Range/Units 08:08 08:08 RBC 3.20 L D (4.60-5.80) X10*6/uL Hgb 8.7 L D (14.0-18.0) g/dl Hct 26.7 L (42.0-52.0) % MCH (27.0-33.0) pg MCHC (31.0-36.0) g/dl Plt Count 538 H (160-400) X10*3/uL MPV 8.4 L (9.4-12.4) fL Immature Gran % (Auto) 0.6 H (0.0-0.4) % Neut % (Auto) (45-73) % Lymph % (Auto) 17.3 L (20-40) % Abs Immat Gran (auto) 0.06 H (0.00-0.03) X10*3/uL ESR (0-15) MM/HR PT (9.9-13.0) SEC INR (0.9-1.1) APTT (24.1-38.0) SEC Sodium 134 L (135-145) mmol/L Carbon Dioxide (22-29) mmol/L Anion Gap 11 L (12-20) BUN (9-16) mg/dL Creatinine (0.5-1.4) mg/dL POC Glucose (60-115) mg/dL Random Glucose 220 H D (60-115) mg/dL C-Reactive Protein (< or = 0.50) mg/dL Ur Specific [place] (1.005-1.025) Urine Glucose (UA) (NEG) MG/DL Urine Cocaine Screen (Not Detect) Crossmatch Short CBC 08/30/21 08/30/21 08/31/21 Range/Units 11:54 17:35 08:08 WBC 10.7 9.1 10.8 (4.8-10.8) X10*3/uL Hgb 7.7 L 6.9 L* 8.7 L D (14.0-18.0) g/dl Hct 24.0 L 22.3 L 26.7 L (42.0-52.0) % Plt Count 655 H D 517 H 538 H (160-400) X10*3/uL BMP 08/30/21 08/31/21 11:54 08:08 Sodium 135 134 L Potassium 5.0 4.2 Chloride 100 102 Carbon Dioxide 21 L 25 BUN 21 H 13 Creatinine 1.70 H 0.93 Calcium 10.0 D 8.8 D Liver Function 08/30/21 Range/Units 11:54 Total Bilirubin 0.3 (0.0-1.0) mg/dL Direct Bilirubin 0.2 (0.0-0.5) mg/dL AST 9 (5-37) U/L ALT 14 (0-40) U/L Alkaline Phosphatase 98 (39-117) U/L Albumin 3.7 (3.5-5.0) g/dL Urine 08/30/21 Range/Units 16:46 Urine Color YELLOW Urine Appearance CLEAR Urine pH 5.5 (5.0-8.0) Ur Specific [place] >= 1.030 H (1.005-1.025) Urine Protein TRACE (NEG-TRACE) MG/DL Urine Glucose (UA) 250 H (NEG) MG/DL All other labs normal. Assessment and Plan (1) Open wound: Status: Acute He has an open wound from his transmetatarsal amputation of the left foot that has not healed. This does not require debridement at this time. I have changes dressings and applied dry dressings and wrapped the foot with Dimitry roll. He is ready being followed by the Wound Clinic and is undergoing hyperbaric treatment. I would recommend having Dr. Hammer see the wound as well. The rest of his care be as per the hospitalist service. Procedures Date of Service Date of Service: 08/31/21
[2021-08-31 12:18] LABS: Glucose, Whole Blood 216 mg/dL (60-115)
[2021-08-31] MEDS: vancomycin HCL 1,000 MG in 0.9 % Sodium Chloride 250 ML 270 MG IV (16:10)
[2021-08-31 17:24] LABS: Glucose, Whole Blood 353 mg/dL (60-115)
[2021-08-31 19:29] LABS: Glucose, Whole Blood 277 mg/dL (60-115)
[2021-09-01] MEDS: Piperacillin Sodium/Tazobactam 3.375 GM in 0.9 % Sodium Chloride 50 ML IV ×4 (00:23→18:18)
[2021-09-01] MEDS: 0.9 % Sodium Chloride Flush 3 ML SYRINGE IVFLUSH ×3 (00:25→16:51)
[2021-09-01 03:34] VITALS: BP 157/90; PULSE 93; RESP 20; TEMP 37; O2SAT 93
[2021-09-01] MEDS: vancomycin HCL 1,000 MG in 0.9 % Sodium Chloride 250 ML 170 MG IV (04:27)
[2021-09-01] MEDS: Omeprazole 20 MG CAPSULE.DR PO ×2 (06:08→16:48)
[2021-09-01 07:15] VITALS: BP 97/65; PULSE 93; RESP 18; TEMP 37.4; O2SAT 97
[2021-09-01] MEDS: Insulin Lispro 100 UNIT/ML 3 ML VIAL SUBCUT ×3 (07:27→20:29)
[2021-09-01 07:35] LABS: Glucose, Whole Blood 316 mg/dL (60-115)
[2021-09-01 07:35] LABS: Hematocrit 24.4 % (42.0-52.0); Hemoglobin 8.1 g/dl (14.0-18.0); Mean Corpuscular HGB Conc 33.2 g/dl (31.0-36.0); Mean Corpuscular Hemoglobin 27.6 pg (27.0-33.0); Mean Corpuscular Volume 83.3 fL (80.0-98.0); Mean Platelet Volume 8.6 fL (9.4-12.4); Platelet Count 505 X10*3/uL (160-400); Red Blood Count 2.93 X10*6/uL (4.60-5.80); Red Cell Distribution Width 15.8 % (11.0-16.0); White Blood Count 9.3 X10*3/uL (4.8-10.8)
[2021-09-01 08:19] LABS: Anion Gap 10 (12-20); Blood Urea Nitrogen 13 mg/dL (9-16); Calcium 8.5 mg/dL (8.4-10.2); Carbon Dioxide 25 mmol/L (22-29); Chloride 103 mmol/L (96-108); Estimated Glomerular Filt Rate > 60; Glucose Random 355 mg/dL (60-115); Potassium 4.4 mmol/L (3.3-5.1); Sodium 134 mmol/L (135-145)
--- NOTE | 2021-09-01 08:40 | MHC.CM.PN ---
CM met with Patient at bedside.Patient lives in a house with his Girlfriend and his goal is to return home today and resume [facility] tomorrow.CM has initiated and will follow for dc planning.PCP is DR. Michelle Samson.
[2021-09-01] MEDS: Apixaban 5 MG TABLET PO (09:22)
[2021-09-01] MEDS: Atorvastatin Calcium 40 MG TABLET PO (09:22)
[2021-09-01] MEDS: Insulin Glargine,Hum.rec.anlog 100 UNIT/ML 10 ML VIAL 15 UNIT SUBCUT (09:22)
--- NOTE | 2021-09-01 10:32 | P.PNGS_ITS ---
Subjective Subjective Date of Service: 09/01/21 Interval history: says he feels well and back to baseline no nausea or abdl pain Physical Exam Vital Signs: Vital Signs: Last Vital Signs Temp 99.3 F 09/01/21 07:15 Pulse 93 09/01/21 07:15 Resp 18 09/01/21 07:15 BP 97/65 09/01/21 07:15 Pulse Ox 97 09/01/21 07:15 BMI result Body Mass Index 28.1 Const: General: comfortable and no acute distress Resp: Effort & Inspection: normal respiratory effort Cardio: Rate: regular rate GI: Palpation (GI): Soft to palpation, not firm and nontender Extrem: Other: left foot amputation site open, granulating, no necrotic tissue Objective Data Active Medications Acetaminophen (Acetaminophen 325 Mg Tablet) 650 mg PO Q6H PRN PRN Reason: Pain, Mild (Pain Scale 1-3) Apixaban (Apixaban 5 Mg Tablet) 5 mg PO BID [facility] Last Admin: 09/01/21 09:22 Dose: 5 mg Documented by: EPHRAIM Atorvastatin Calcium (Atorvastatin Calcium 40 Mg Tablet) 40 mg PO DAILY [facility] Last Admin: 09/01/21 09:22 Dose: 40 mg Documented by: EPHRAIM Dextrose (Dextrose 50 % 25 Gm/50 Ml Vial) 25 gm IVPUSH Q15M PRN; Protocol PRN Reason: per Hypoglycemia Standing Ord. Glucose (Glucose Gel 15 Gm Gel..Gram.) 15 gm PO Q15M PRN; Protocol PRN Reason: per Hypoglycemia Standing Ord. Piperacillin Sod/Tazobactam (Sod 3.375 gm/ Sodium Chloride) 50 mls @ 100 mls/hr IV Q6H [facility] Last Infusion: 09/01/21 06:43 Dose: 0 mls/hr Documented by: NAZIA Vancomycin HCl 1,000 mg/ (Sodium Chloride) 270 mls @ 270 mls/hr IV Q12H [facility] Last Infusion: 09/01/21 06:23 Dose: 0 mls/hr Documented by: NAZIA Insulin Glargine (Insulin Glargine,Hum.Rec.Anlog 100 Unit/Ml 10 Ml Vial) 20 unit SUBCUT BID [facility] Insulin Human Lispro (Insulin Lispro 100 Unit/Ml 3 Ml Vial) 0 unit SUBCUT QIDACHS [facility]; Protocol Last Admin: 09/01/21 07:27 Dose: 8 unit Documented by: EPHRAIM Magnesium Hydroxide (Milk Of Magnesia 30 Ml Oral.Susp) 30 ml PO DAILY PRN PRN Reason: Constipation Omeprazole (Omeprazole 20 Mg Capsule.) 20 mg PO BID@0630,1630 [facility] Last Admin: 09/01/21 06:08 Dose: 20 mg Documented by: NAZIA Ondansetron HCl (Ondansetron Hcl 4 Mg/2 Ml Vial) 4 mg IVPUSH Q8H PRN PRN Reason: Nausea and Vomiting Pharmacy Consult (Consult Rx Perform Med Rec) 1 each MISCELLANE ONCE PRN PRN Reason: Consult order Pharmacy Consult (Consult Rx Vancomycin Dosing) 1 each MISCELLANE DAILY PRN PRN Reason: Consult order Polyethylene Glycol (Polyethylene Glycol 3350 17 Gm Powd.Pack) 17 gm PO DAILY [facility] Last Admin: 09/01/21 09:22 Dose: Not Given Documented by: EPHRAIM Non-Admin Reason: Patient Refused Sodium Chloride (0.9 % Sodium Chloride Flush 3 Ml Syringe) 3 ml IVFLUSH QSHIFT [facility] Last Admin: 09/01/21 07:27 Dose: 3 ml Documented by: EPHRAIM Labs CBC & Chem 7: 09/01/21 07:01 09/01/21 07:01 Labs: Laboratory Results - last 24 hr 08/31/21 08/31/21 08/31/21 12:15 17:19 19:25 MCV MCH MCHC RDW Plt Count MPV Absolute Nucleated RBC Nucleated RBC % (auto) Anion Gap Estim Creat Clear Calc Estimated GFR POC Glucose 216 H 353 H* 277 H Random Glucose Calcium 09/01/21 09/01/21 09/01/21 07:01 07:01 07:17 MCV 83.3 MCH 27.6 MCHC 33.2 RDW 15.8 Plt Count 505 H MPV 8.6 L Absolute Nucleated RBC 0.000 Nucleated RBC % (auto) 0.0 Anion Gap 10 L Estim Creat Clear Calc 88.0 Estimated GFR > 60 POC Glucose 316 H Random Glucose 355 H* Calcium 8.5 Microbiology Microbiology Results: Microbiology 08/30/21 17:35 Blood Culture - Preliminary Blood - Venous No growth after 24 hours. 08/30/21 17:06 Blood Culture - Preliminary Blood - Venous No growth after 24 hours. Procedures Date of Service Date of Service: 09/01/21 Progress Note: A&P Assessment and plan (1) Open wound: Status: Acute Assessment and Plan: has nonhealign transmet amputation on left no need for debridement wound care - he is undergoing hyperbaric tx Vascular dx ffup complaints on admission unlikely to be related to open wound Fall Risk Details Current Medications: Current Medications Acetaminophen (Acetaminophen 325 Mg Tablet) 650 mg PO Q6H PRN PRN Reason: Pain, Mild (Pain Scale 1-3) Apixaban (Apixaban 5 Mg Tablet) 5 mg PO BID [facility] Last Admin: 09/01/21 09:22 Dose: 5 mg Documented by: Atorvastatin Calcium (Atorvastatin Calcium 40 Mg Tablet) 40 mg PO DAILY [facility] Last Admin: 09/01/21 09:22 Dose: 40 mg Documented by: Dextrose (Dextrose 50 % 25 Gm/50 Ml Vial) 25 gm IVPUSH Q15M PRN; Protocol PRN Reason: per Hypoglycemia Standing Ord. Glucose (Glucose Gel 15 Gm Gel..Gram.) 15 gm PO Q15M PRN; Protocol PRN Reason: per Hypoglycemia Standing Ord. Piperacillin Sod/Tazobactam (Sod 3.375 gm/ Sodium Chloride) 50 mls @ 100 mls/hr IV Q6H [facility] Last Infusion: 09/01/21 06:43 Dose: Infused Documented by: Vancomycin HCl 1,000 mg/ (Sodium Chloride) 270 mls @ 270 mls/hr IV Q12H [facility] Last Infusion: 09/01/21 06:23 Dose: Infused Documented by: Insulin Glargine (Insulin Glargine,Hum.Rec.Anlog 100 Unit/Ml 10 Ml Vial) 20 u nit SUBCUT BID [facility] Insulin Human Lispro (Insulin Lispro 100 Unit/Ml 3 Ml Vial) 0 unit SUBCUT QIDACHS [facility]; Protocol Last Admin: 09/01/21 07:27 Dose: 8 unit Documented by: Magnesium Hydroxide (Milk Of Magnesia 30 Ml Oral.Susp) 30 ml PO DAILY PRN PRN Reason: Constipation Omeprazole (Omeprazole 20 Mg Capsule.Dr) 20 mg PO BID@0630,1630 [facility] Last Admin: 09/01/21 06:08 Dose: 20 mg Documented by: Ondansetron HCl (Ondansetron Hcl 4 Mg/2 Ml Vial) 4 mg IVPUSH Q8H PRN PRN Reason: Nausea and Vomiting Pharmacy Consult (Consult Rx Perform Med Rec) 1 each MISCELLANE ONCE PRN PRN Reason: Consult order Pharmacy Consult (Consult Rx Vancomycin Dosing) 1 each MISCELLANE DAILY PRN PRN Reason: Consult order Polyethylene Glycol (Polyethylene Glycol 3350 17 Gm Powd.Pack) 17 gm PO DAILY [facility] Last Admin: 09/01/21 09:22 Dose: Not Given Documented by: Sodium Chloride (0.9 % Sodium Chloride Flush 3 Ml Syringe) 3 ml IVFLUSH QSHIFT [facility] Last Admin: 09/01/21 07:27 Dose: 3 ml Documented by: Time Spent With Patient Time: Total time spent is greater than 50% in coordination of care (as documented) at patient's floor/unit and/or counseling patient: Time with patient: 15 - 24 minutes Quality Stroke Does the patient have a stroke diagnosis?: No VTE Prior VTE?: No VTE Risk Level:: Medical - moderate - high VTE Device Contraindication: Treatment Not Indicated VTE Drug Contraindication: N/A - Med Ordered
[2021-09-01 11:05] VITALS: BP 174/97; PULSE 80; RESP 18; TEMP 36.9; O2SAT 99
[2021-09-01 11:20] LABS: Glucose, Whole Blood 256 mg/dL (60-115)
[2021-09-01 15:08] VITALS: BP 173/93; PULSE 82; RESP 18; TEMP 37.1; O2SAT 98
[2021-09-01 15:10] LABS: Vancomycin Trough 9.2 mcg/mL (10.0-20.0)
[2021-09-01 16:38] LABS: Glucose, Whole Blood 129 mg/dL (60-115)
[2021-09-01] MEDS: vancomycin HCL 1,000 MG in 0.9 % Sodium Chloride 250 ML 270 MG IV (16:48)
[2021-09-01 19:59] VITALS: BP 104/74; PULSE 95; RESP 19; TEMP 37.2; O2SAT 98
[2021-09-01 20:03] LABS: Glucose, Whole Blood 163 mg/dL (60-115)
[2021-09-01] MEDS: Insulin Glargine,Hum.rec.anlog 100 UNIT/ML 10 ML VIAL 20 UNIT SUBCUT (20:28)
[2021-09-01 23:30] VITALS: BP 100/68; PULSE 90; RESP 18; TEMP 36.7; O2SAT 98
[2021-09-02] MEDS: Piperacillin Sodium/Tazobactam 3.375 GM in 0.9 % Sodium Chloride 50 ML IV ×4 (01:04→17:28)
[2021-09-02] MEDS: 0.9 % Sodium Chloride Flush 3 ML SYRINGE IVFLUSH ×4 (01:04→21:06)
[2021-09-02 04:00] VITALS: BP 124/71; PULSE 98; RESP 18; TEMP 37; O2SAT 98
[2021-09-02] MEDS: vancomycin HCL 1,000 MG in 0.9 % Sodium Chloride 250 ML 270 MG IV ×2 (04:41→16:20)
[2021-09-02] MEDS: Omeprazole 20 MG CAPSULE.DR PO ×2 (05:57→16:21)
[2021-09-02 07:23] VITALS: BP 139/86; PULSE 110; RESP 18; TEMP 36.9; O2SAT 98
--- NOTE | 2021-09-02 07:40 | P.PNIM_ITS ---
Subjective Subjective Date of Service: 09/01/21 Interval History: date of service 09/01/21: non healing wound,anemia Review of Systems Denies any new complaint of chest pain or shortness of breath or abdominal pain or fever or chills or nausea or vomiting Denies any cough Denies any weakness or numbness. Physical Exam Vital Signs: Vital Signs: Last Vital Signs Temp 98.5 F 09/02/21 07:23 Pulse 110 H 09/02/21 07:23 Resp 18 09/02/21 07:23 BP 139/86 09/02/21 07:23 Pulse Ox 98 09/02/21 07:23 BMI result Body Mass Index 28.1 ?physical exam:? Appearance: Alert.? Oriented X3.? not in distress.? ENT: Pharynx normal.? Moist mucous membranes. cvs: rrr, [id number] , no murmur res: clear to auscultation ,no rhonchii or wheezing abd: no rebound or guarding ,nt, bs present. ext :left: wound on the entire transmetatarsal amputation site-granulating, patches of fibrous exudates, no necrosis or flacuatation. neuro: axo3 , nonfocal. Objective Data Active Medications Acetaminophen (Acetaminophen 325 Mg Tablet) 650 mg PO Q6H PRN PRN Reason: Pain, Mild (Pain Scale 1-3) Apixaban (Apixaban 5 Mg Tablet) 5 mg PO BID [facility] Last Admin: 09/01/21 09:22 Dose: 5 mg Documented by: EPHRAIM Atorvastatin Calcium (Atorvastatin Calcium 40 Mg Tablet) 40 mg PO DAILY [facility] Last Admin: 09/01/21 09:22 Dose: 40 mg Documented by: EPHRAIM Dextrose (Dextrose 50 % 25 Gm/50 Ml Vial) 25 gm IVPUSH Q15M PRN; Protocol PRN Reason: per Hypoglycemia Standing Ord. Glucose (Glucose Gel 15 Gm Gel..Gram.) 15 gm PO Q15M PRN; Protocol PRN Reason: per Hypoglycemia Standing Ord. Piperacillin Sod/Tazobactam (Sod 3.375 gm/ Sodium Chloride) 50 mls @ 100 mls/hr IV Q6H [facility] Last Infusion: 09/02/21 06:32 Dose: 0 mls/hr Documented by: IGOR Vancomycin HCl 1,000 mg/ (Sodium Chloride) 270 mls @ 270 mls/hr IV Q12H [facility] Last Infusion: 09/02/21 05:58 Dose: 0 mls/hr Documented by: IGOR Insulin Glargine (Insulin Glargine,Hum.Rec.Anlog 100 Unit/Ml 10 Ml Vial) 20 unit SUBCUT BID [facility] Last Admin: 09/01/21 20:28 Dose: 20 unit Documented by: ROSEANNE Insulin Human Lispro (Insulin Lispro 100 Unit/Ml 3 Ml Vial) 0 unit SUBCUT QIDACHS [facility]; Protocol Last Admin: 09/01/21 20:29 Dose: 2 unit Documented by: ROSEANNE Magnesium Hydroxide (Milk Of Magnesia 30 Ml Oral.Susp) 30 ml PO DAILY PRN PRN Reason: Constipation Omeprazole (Omeprazole 20 Mg Capsule.Dr) 20 mg PO BID@0630,1630 [facility] Last Admin: 09/02/21 05:57 Dose: 20 mg Documented by: IGOR Ondansetron HCl (Ondansetron Hcl 4 Mg/2 Ml Vial) 4 mg IVPUSH Q8H PRN PRN Reason: Nausea and Vomiting Pharmacy Consult (Consult Rx Perform Med Rec) 1 each MISCELLANE ONCE PRN PRN Reason: Consult order Pharmacy Consult (Consult Rx Vancomycin Dosing) 1 each MISCELLANE DAILY PRN PRN Reason: Consult order Polyethylene Glycol (Polyethylene Glycol 3350 17 Gm Powd.Pack) 17 gm PO DAILY [facility] Last Admin: 09/01/21 09:22 Dose: Not Given Documented by: EPHRAIM Non-Admin Reason: Patient Refused Sodium Chloride (0.9 % Sodium Chloride Flush 3 Ml Syringe) 3 ml IVFLUSH QSHIFT [facility] Last Admin: 09/02/21 01:04 Dose: 3 ml Documented by: IGOR Labs CBC & Chem 7: 09/01/21 07:01 09/01/21 07:01 Labs: Laboratory Results - last 24 hr 08/30/21 08/31/21 09/01/21 11:54 08:08 07:01 MCV 83.3 MCH 27.6 MCHC 33.2 RDW 15.8 Plt Count 505 H MPV 8.6 L Absolute Nucleated RBC 0.000 Nucleated RBC % (auto) 0.0 Anion Gap Creatinine 1.70 H 0.93 Estim Creat Clear Calc Estimated GFR POC Glucose Random Glucose Calcium Vancomycin Trough 09/01/21 09/01/21 09/01/21 07:01 11:06 14:26 MCV MCH MCHC RDW Plt Count MPV Absolute Nucleated RBC Nucleated RBC % (auto) Anion Gap 10 L Creatinine Estim Creat Clear Calc 88.0 Estimated GFR > 60 POC Glucose 256 H Random Glucose 355 H* Calcium 8.5 Vancomycin Trough 9.2 L 09/01/21 09/01/21 16:33 19:58 MCV MCH MCHC RDW Plt Count MPV Absolute Nucleated RBC Nucleated RBC % (auto) Anion Gap Creatinine Estim Creat Clear Calc Estimated GFR POC Glucose 129 H 163 H Random Glucose Calcium Vancomycin Trough Microbiology Microbiology Results: Microbiology 08/30/21 17:35 Blood Culture - Preliminary Blood - Venous No growth after 48 hours. 08/30/21 17:06 Blood Culture - Preliminary Blood - Venous No growth after 48 hours. Assessment and Plan (1) ALEKSANDR (acute kidney injury): Status: Acute (2) Cellulitis of foot: Status: Acute Assessment and Plan: 50-year-old male with past medical history of PD as well as diabetes with complication of osteomyelitis and nonhealing diabetic wounds presents to the hospital with sepsis like picture 1.? sepsis-possible? due to history of osteomyelitis, diabetic foot ulcer -? extensive history mentioned in HPI, to summarize patient had osteomyelitis of the left foot in June, as well as found to have embolic event in the SFA status post atherectomy and stenting as well as metatarsal amputation, at the time there was concern of nonhealing but patient refused amputation ?elevated ESR and CRP Mri -? early oseto can not be exluded. ?broad-spectrum IV antibiotics ? Seen by surgery:? -Nonhealing wound at the metatarsals area- no need of debridement currently, recommended vascular follow-up. ?id evaluation pending 2.? anemia: presented with a hemoglobin of 7.7 dropped to 6.9 post IV hydration- was evaluated by Hematology-Oncology on previous admission found to be secondary to chronic disease ?patient is status post? 2 units of PRBC in ED fobt neg. repeat H&H:: 8.1 moniter h/h 3.peripheral vascular disease-? patient was found to have a possible embolic event on previous? admission h/h improved to 8.7 , occult blood neg d/w vascular surgery-open wound and hold? eliquis? until thursday, will? moniter h/h . 4.? diabetes uncontrolled. adjusted lantus and sliding scale insulin -? diabetic diet 5.? nausea vomiting as well as diarrhea: denies any anusea vomiting today abdominal CT shows large amount of stool throughout the colon cecum to rectum, no proximal obstruction or focal inflammatory changes-?diarrhea is most likely overflow ?moniter on MiraLax daily as well as p.r.n.milk of magnesia 6.? ALEKSANDR-? most likely secondary to dehydration as well as acute infection /sepsis and hypotension imrpoved ?with IV fluids, encouarged for po hydration DVT prophylaxis:eliquid on hold due to low h/h,? venodynes Quality Stroke Does the patient have a stroke diagnosis?: No VTE Prior VTE?: No VTE Risk Level:: Medical - moderate - high VTE Device Contraindication: Treatment Not Indicated VTE Drug Contraindication: N/A - Med Ordered
--- NOTE | 2021-09-02 07:43 | P.PNIM_ITS ---
Subjective Subjective Date of Service: 09/02/21 Interval History: non healing wound,anemia Review of Systems Denies any chest pain shortness of breath or abdominal pain or fever or chills or cough or phlegm. Denies any foot pain Physical Exam Vital Signs: Vital Signs: Last Vital Signs Temp 98.5 F 09/02/21 07:23 Pulse 110 H 09/02/21 07:23 Resp 18 09/02/21 07:23 BP 139/86 09/02/21 07:23 Pulse Ox 98 09/02/21 07:23 BMI result Body Mass Index 28.1 physical exam:? Appearance: Alert.? Oriented X3.? not in distress.? ENT: Pharynx normal.? Moist mucous membranes. cvs: rrr, [id number] , no murmur res: clear to auscultation ,no rhonchii or wheezing abd: no rebound or guarding ,nt, bs present. ext :left: wound on the entire transmetatarsal amputation site-granulating, unchanged . neuro: axo3 , nonfocal. Objective Data Active Medications Acetaminophen (Acetaminophen 325 Mg Tablet) 650 mg PO Q6H PRN PRN Reason: Pain, Mild (Pain Scale 1-3) Apixaban (Apixaban 5 Mg Tablet) 5 mg PO BID [facility] Last Admin: 09/01/21 09:22 Dose: 5 mg Documented by: EPHRAIM Atorvastatin Calcium (Atorvastatin Calcium 40 Mg Tablet) 40 mg PO DAILY [facility] Last Admin: 09/01/21 09:22 Dose: 40 mg Documented by: EPHRAIM Dextrose (Dextrose 50 % 25 Gm/50 Ml Vial) 25 gm IVPUSH Q15M PRN; Protocol PRN Reason: per Hypoglycemia Standing Ord. Glucose (Glucose Gel 15 Gm Gel..Gram.) 15 gm PO Q15M PRN; Protocol PRN Reason: per Hypoglycemia Standing Ord. Piperacillin Sod/Tazobactam (Sod 3.375 gm/ Sodium Chloride) 50 mls @ 100 mls/hr IV Q6H [facility] Last Infusion: 09/02/21 06:32 Dose: 0 mls/hr Documented by: IGOR Vancomycin HCl 1,000 mg/ (Sodium Chloride) 270 mls @ 270 mls/hr IV Q12H [facility] Last Infusion: 09/02/21 05:58 Dose: 0 mls/hr Documented by: IGOR Insulin Glargine (Insulin Glargine,Hum.Rec.Anlog 100 Unit/Ml 10 Ml Vial) 20 unit SUBCUT BID [facility] Last Admin: 09/01/21 20:28 Dose: 20 unit Documented by: ROSEANNE Insulin Human Lispro (Insulin Lispro 100 Unit/Ml 3 Ml Vial) 0 unit SUBCUT QIDACHS [facility]; Protocol Last Admin: 09/01/21 20:29 Dose: 2 unit Documented by: ROSEANNE Magnesium Hydroxide (Milk Of Magnesia 30 Ml Oral.Susp) 30 ml PO DAILY PRN PRN Reason: Constipation Omeprazole (Omeprazole 20 Mg Capsule.Dr) 20 mg PO BID@0630,1630 [facility] Last Admin: 09/02/21 05:57 Dose: 20 mg Documented by: IGOR Ondansetron HCl (Ondansetron Hcl 4 Mg/2 Ml Vial) 4 mg IVPUSH Q8H PRN PRN Reason: Nausea and Vomiting Pharmacy Consult (Consult Rx Perform Med Rec) 1 each MISCELLANE ONCE PRN PRN Reason: Consult order Pharmacy Consult (Consult Rx Vancomycin Dosing) 1 each MISCELLANE DAILY PRN PRN Reason: Consult order Polyethylene Glycol (Polyethylene Glycol 3350 17 Gm Powd.Pack) 17 gm PO DAILY [facility] Last Admin: 09/01/21 09:22 Dose: Not Given Documented by: EPHRAIM Non-Admin Reason: Patient Refused Sodium Chloride (0.9 % Sodium Chloride Flush 3 Ml Syringe) 3 ml IVFLUSH QSHIFT [facility] Last Admin: 09/02/21 01:04 Dose: 3 ml Documented by: IGOR Labs CBC & Chem 7: 09/02/21 08:09 09/02/21 08:09 Labs: Laboratory Results - last 24 hr 09/01/21 09/01/21 09/01/21 07:01 11:06 14:26 Anion Gap 10 L Estim Creat Clear Calc 88.0 Estimated GFR > 60 POC Glucose 256 H Random Glucose 355 H* Calcium 8.5 Vancomycin Trough 9.2 L 09/01/21 09/01/21 16:33 19:58 Anion Gap Estim Creat Clear Calc Estimated GFR POC Glucose 129 H 163 H Random Glucose Calcium Vancomycin Trough Microbiology Microbiology Results: Microbiology 08/30/21 17:35 Blood Culture - Preliminary Blood - Venous No growth after 48 hours. 08/30/21 17:06 Blood Culture - Preliminary Blood - Venous No growth after 48 hours. Assessment and Plan (1) Diabetes mellitus: Status: Acute (2) Cellulitis of foot: Status: Acute Assessment and Plan: 50-year-old male with past medical history of PD as well as diabetes with co mplication of osteomyelitis and nonhealing diabetic wounds presents to the hospital with sepsis like picture 1. sepsis-possible due to history of osteomyelitis, diabetic foot ulcer - extensive history mentioned in HPI, to summarize patient had osteomyelitis of the left foot in June, as well as found to have embolic event in the SFA status post atherectomy and stenting as well as metatarsal amputation, at the time there was concern of nonhealing but patient refused amputation elevated ESR and CRP Mri -? early oseto can not be exluded-unclear if infectious or due to reccent surgerical changes . broad-spectrum IV antibiotics Seen by surgery: -Nonhealing wound at the metatarsals area- no need of debridement currently, recommended vascular follow-up: recommended to follow up outpatient. id evaluation pending 2. anemia: presented with a hemoglobin of 7.7 dropped to 6.9 post IV hydration- was evaluated by Hematology-Oncology on previous admission found to be secondary to chronic disease patient is status post 2 units of PRBC in ED fobt neg. repeat H&H:: 9.5 moniter h/h 3.peripheral vascular disease- patient was found to have a possible embolic event on previous admission h/h improved to 8.7 , occult blood neg d/w vascular surgery- restart Eliquis, monitor H&H for 1 more day. 4. diabetes uncontrolled. adjusted lantus and sliding scale insulin - diabetic diet 5. nausea vomiting as well as diarrhea: denies any anusea vomiting today abdominal CT shows large amount of stool throughout the colon cecum to rectum, no proximal obstruction or focal inflammatory changes-?diarrhea is most likely overflow moniter on MiraLax daily as well as p.r.n.milk of magnesia 6. ALEKSANDR- most likely secondary to dehydration as well as acute infection /sepsis and hypotension imrpoved with IV fluids, encouarged for po hydration 7. patient was also cocaine positive: he said he used only once snorted, does not wish to talk to follow up specialist. DVT prophylaxis:eliquid on hold due to low h/h, venodynes Quality Stroke Does the patient have a stroke diagnosis?: No VTE Prior VTE?: No VTE Risk Level:: Medical - moderate - high VTE Device Contraindication: Treatment Not Indicated VTE Drug Contraindication: N/A - Med Ordered
[2021-09-02 07:50] LABS: Glucose, Whole Blood 320 mg/dL (60-115)
[2021-09-02 08:21] LABS: Hematocrit 29.7 % (42.0-52.0); Hemoglobin 9.5 g/dl (14.0-18.0)
[2021-09-02] MEDS: Insulin Lispro 100 UNIT/ML 3 ML VIAL SUBCUT ×4 (08:23→21:05)
[2021-09-02] MEDS: Insulin Glargine,Hum.rec.anlog 100 UNIT/ML 10 ML VIAL 20 UNIT SUBCUT ×2 (08:23→21:05)
[2021-09-02] MEDS: Atorvastatin Calcium 40 MG TABLET PO (08:24)
[2021-09-02 08:55] LABS: Anion Gap 14 (12-20); Blood Urea Nitrogen 19 mg/dL (9-16); Calcium 8.9 mg/dL (8.4-10.2); Carbon Dioxide 21 mmol/L (22-29); Chloride 105 mmol/L (96-108); Estimated Glomerular Filt Rate > 60; Glucose Random 345 mg/dL (60-115); Potassium 5.1 mmol/L (3.3-5.1); Sodium 135 mmol/L (135-145)
--- NOTE | 2021-09-02 10:26 | PC.NURSE ---
Skin/Wound assessment completed. Patient had a transmetatarsal amp to left foot from infected diabetic ulcer. Dr. Hammer changed the dressing this morning-applied silver alginate to surgical incision covered with gauze and roll gauze plus joi wrap. No other skin issues noted at this time.
--- NOTE | 2021-09-02 10:35 | P.CONGS_ITS ---
History of Present Illness Consult details Consult date: 09/02/21 Reason for consult: wound care Narrative: 50-year-old gentleman well known to me with a history of left transmetatarsal amputation. Has been nonhealing for some time. Currently [facility] of [facility]. He is undergoing hyperbaric treatment. He was [facility] the [facility]. He had generalized weakness and some stomach discomfort which brought him in. He was found to be anemic. He was transfused 2 units. He feels significantly better. In general doing fairly wel l. Left leg continues to do reasonably well. He is now for routine vascular follow-up. Review of Systems Review of Systems: Yes all other systems are reviewed and are negative Constitutional: Constitutional: Reports no additional constitutional complaints ENT: Reports Normal hearing present Cardiovascular: Cardiovascular: Denies chest pain, Denies chest pain at rest, Denies chest pain with activity and Denies pedal edema Respiratory: Respiratory: Denies cough Gastrointestinal: Gastrointestinal: Denies abdominal pain Musculoskeletal: Musculoskeletal: Denies abnormal gait, Denies muscle cramps and Denies radiating pain into limb Integumentary/Breasts: Skin/Breast: Denies skin ulcer and Denies wounds Neurologic: Reports Normal hearing present and Denies abnormal gait Psychiatric: Psychiatric: Reports no additional psychiatric complaints [facility] Past Medical History Medical History (Updated 08/31/21 @ 10:43 by Avelino Davila MD) Bacteremia Diabetes Diabetic foot ulcer Gangrene of toe of left foot GERD (gastroesophageal reflux disease) History of angiography Open wound PAD (peripheral artery disease) PICC (peripherally inserted central catheter) in place Family History Family History Other Diabetes Surgical History Surgical History Amputated toe of right foot (11/05/20) Social History Social History Household Members: Spouse Housing: Apartment Do you presently have visiting nurse or other home services: No Alcohol intake: never Patient Tobacco Use Status: Former Tobacco user Tobacco use type: Cigarette Years Smoked: 15 Second Hand Smoke Exposure: No service: No Current occupational status: employed Meds Allergies Allergy/AdvReac Type Severity Reaction Status Date / Time No Known Allergies Allergy Verified 07/23/21 09:50 Active Medications: Current Medications Acetaminophen (Acetaminophen 325 Mg Tablet) 650 mg PO Q6H PRN PRN Reason: Pain, Mild (Pain Scale 1-3) Apixaban (Apixaban 5 Mg Tablet) 5 mg PO BID [facility] Last Admin: 09/01/21 09:22 Dose: 5 mg Documented by: Atorvastatin Calcium (Atorvastatin Calcium 40 Mg Tablet) 40 mg PO DAILY [facility] Last Admin: 09/02/21 08:24 Dose: 40 mg Documented by: Dextrose (Dextrose 50 % 25 Gm/50 Ml Vial) 25 gm IVPUSH Q15M PRN; Protocol PRN Reason: per Hypoglycemia Standing Ord. Glucose (Glucose Gel 15 Gm Gel..Gram.) 15 gm PO Q15M PRN; Protocol PRN Reason: per Hypoglycemia Standing Ord. Piperacillin Sod/Tazobactam (Sod 3.375 gm/ Sodium Chloride) 50 mls @ 100 mls/hr IV Q6H [facility] Last Infusion: 09/02/21 06:32 Dose: Infused Documented by: Vancomycin HCl 1,000 mg/ (Sodium Chloride) 270 mls @ 270 mls/hr IV Q12H [facility] Last Infusion: 09/02/21 05:58 Dose: Infused Documented by: Insulin Glargine (Insulin Glargine,Hum.Rec.Anlog 100 Unit/Ml 10 Ml Vial) 20 unit SUBCUT BID [facility] Last Admin: 09/02/21 08:23 Dose: 20 unit Documented by: Insulin Human Lispro (Insulin Lispro 100 Unit/Ml 3 Ml Vial) 0 unit SUBCUT QIDACHS [facility]; Protocol Last Admin: 09/02/21 08:23 Dose: 10 unit Documented by: Magnesium Hydroxide (Milk Of Magnesia 30 Ml Oral.Susp) 30 ml PO DAILY PRN PRN Reason: Constipation Omeprazole (Omeprazole 20 Mg Capsule.Dr) 20 mg PO BID@0630,1630 [facility] Last Admin: 09/02/21 05:57 Dose: 20 mg Documented by: Ondansetron HCl (Ondansetron Hcl 4 Mg/2 Ml Vial) 4 mg IVPUSH Q8H PRN PRN Reason: Nausea and Vomiting Pharmacy Consult (Consult Rx Perform Med Rec) 1 each MISCELLANE ONCE PRN PRN Reason: Consult order Pharmacy Consult (Consult Rx Vancomycin Dosing) 1 each MISCELLANE DAILY PRN PRN Reason: Consult order Polyethylene Glycol (Polyethylene Glycol 3350 17 Gm Powd.Pack) 17 gm PO DAILY [facility] Last Admin: 09/02/21 08:24 Dose: Not Given Documented by: Sodium Chloride (0.9 % Sodium Chloride Flush 3 Ml Syringe) 3 ml IVFLUSH QSHIFT [facility] Last Admin: 09/02/21 08:24 Dose: 3 ml Documented by: Home Medications Medication Instructions Recorded Confirmed Last Taken Type metformin 1,000 mg tablet 1 tab PO BID 10/31/20 08/30/21 08/30/21 History blood sugar diagnostic #10 ea 11/20/20 06/30/21 Unknown History pen needle, diabetic 32 gauge x #50 ea 11/20/20 06/30/21 Unknown History atorvastatin 40 mg tablet 1 tab PO DAILY 06/30/21 08/30/21 08/30/21 History insulin glargine 100 unit/mL (3 15 unit SUBCUT BID 06/30/21 08/30/21 08/30/21 History mL) subcutaneous pen (Basaglar KwikPen U-100 Insulin) aspirin 81 mg tablet,delayed 1 tab PO DAILY 08/30/21 08/30/21 08/30/21 History release dulaglutide 1.5 mg/0.5 mL 1.5 mg SUBCUT Q7D 08/30/21 08/30/21 08/30/21 History subcutaneous pen injector (Trulicity) levofloxacin 750 mg tablet 1 tab PO DAILY 08/30/21 08/30/21 08/30/21 History Physical Exam Vital Signs: Vital Signs: Last Vital Signs Temp 98.5 F 09/02/21 07:23 Pulse 110 H 09/02/21 07:23 Resp 18 09/02/21 07:23 BP 139/86 09/02/21 07:23 Pulse Ox 98 09/02/21 07:23 BMI result Body Mass Index 28.1 Const: General: cooperative, healthy appearing and comfortable Orientation/consciousness: oriented to person, oriented to place and oriented to time HENMT: Head: Yes normal to inspection Neck: Neck: Yes normal visual inspection Carotids: no bruits Chest: Chest palpation & inspection: normal inspection of the chest Resp: Effort & Inspection: normal respiratory effort and able to speak in complete sentences Auscultation: clear to auscultation bilaterally, no crackles, no rales, no rhonchi and no wheezes Cardio: Rate: regular rate Rhythm: regular rhythm Heart sounds: S1 normal heart sound present and S2 normal heart sound present Bruits: no carotid bruits Peripheral pulses: Peripheral pulses 2+ throughout GI: Inspection: Yes normal to inspection Skin: Wounds: amputation site (Left trans met flap completely necrosed but good granulation base in gener) Hair: normal Neuro: General: oriented to person, oriented to place and oriented to time Cranial nerves: Yes CN's II-XII intact bilaterally and Yes Normal hearing present Cognition (Neuro): normal cognition Motor exam (neuro): 5/5 motor strength present throughout Extrem: Other: venous exam: No significant superficial varicosities or spider telangiectasias, minimal edema General: No clubbing, No cyanosis and No edema Psych: Appearance: grossly normal Mental Status: mental status grossly normal Speech and movement: Normal speech and movement present Results Labs Result diagrams: 09/02/21 08:09 09/02/21 08:09 Labs: Abnormal lab results 09/01/21 09/01/21 09/01/21 Range/Units 11:06 14:26 16:33 Hgb (14.0-18.0) g/dl Hct (42.0-52.0) % Carbon Dioxide (22-29) mmol/L BUN (9-16) mg/dL POC Glucose 256 H 129 H (60-115) mg/dL Random Glucose (60-115) mg/dL Vancomycin Trough 9.2 L (10.0-20.0) mcg/mL 09/01/21 09/02/21 09/02/21 Range/Units 19:58 07:26 08:09 Hgb 9.5 L (14.0-18.0) g/dl Hct 29.7 L D (42.0-52.0) % Carbon Dioxide (22-29) mmol/L BUN (9-16) mg/dL POC Glucose 163 H 320 H (60-115) mg/dL Random Glucose (60-115) mg/dL Vancomycin Trough (10.0-20.0) mcg/mL 09/02/21 Range/Units 08:09 Hgb (14.0-18.0) g/dl Hct (42.0-52.0) % Carbon Dioxide 21 L (22-29) mmol/L BUN 19 H (9-16) mg/dL POC Glucose (60-115) mg/dL Random Glucose 345 H (60-115) mg/dL Vancomycin Trough (10.0-20.0) mcg/mL Short CBC 09/02/21 Range/Units 08:09 Hgb 9.5 L (14.0-18.0) g/dl Hct 29.7 L D (42.0-52.0) % BMP 09/02/21 08:09 Sodium 135 Potassium 5.1 Chloride 105 Carbon Dioxide 21 L BUN 19 H Creatinine 1.10 Calcium 8.9 Urine 08/30/21 Range/Units 16:46 Urine Color YELLOW Urine Appearance CLEAR Urine pH 5.5 (5.0-8.0) Ur Specific [place] >= 1.030 H (1.005-1.025) Urine Protein TRACE (NEG-TRACE) MG/DL Urine Glucose (UA) 250 H (NEG) MG/DL All other labs normal. Assessment and Plan (1) PAD (peripheral artery disease): Status: Acute In short patient has nonhealing transmetatarsal amputation. He had endovascular intervention October of this year. He was anticoagulated and. Due to his anemia. It appears that it has stabilized. He will be restarted on Eliquis. We will see how he does. In terms of this flap continued local wound care. He will follow up with the [facility]. He can follow up with us scheduled appointment with us as an outpatient for surveillance arterial ultrasound. Thank you for allowing us to assist in this patient's care. If there are any questions or concerns please do not hesitate to contact us. Procedures Date of Service Date of Service: 09/02/21
[2021-09-02 11:07] VITALS: BP 130/81; PULSE 106; RESP 18; TEMP 37.2; O2SAT 100
[2021-09-02 11:32] LABS: Glucose, Whole Blood 234 mg/dL (60-115)
--- NOTE | 2021-09-02 13:43 | MHC.CM.PN ---
per rounds pt may be dcd today dc plan is to resume [facility]
[2021-09-02 15:44] VITALS: BP 164/92; PULSE 98; RESP 18; TEMP 37.1; O2SAT 99
[2021-09-02 16:13] LABS: Glucose, Whole Blood 234 mg/dL (60-115)
--- NOTE | 2021-09-02 18:03 | PC.NURSE ---
1700 Dsg on left foot D@I changed by Dr Hammer today. Denies pain.
[2021-09-02] MEDS: Lactated Ringers 1,000 ML 80 ML IVCONT (18:20)
[2021-09-02 19:29] VITALS: BP 147/89; PULSE 101; RESP 20; TEMP 36.9; O2SAT 98
[2021-09-02 20:22] LABS: Glucose, Whole Blood 279 mg/dL (60-115)
[2021-09-02] MEDS: Apixaban 5 MG TABLET PO (21:05)
--- NOTE | 2021-09-02 21:47 | P.CNID_ITS ---
History of Present Illness Data of Consult Service Date: 09/02/21 Requesting physician: Td Avalos Primary Care Provider: Michelle Samson MD HPI Reason for consult: left foot infection He was sent by Wound Clinic for hypotension and tachycardia. 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 [facility] Past Medical History Medical History Bacteremia Diabetes Diabetic foot ulcer Gangrene of toe of left foot GERD (gastroesophageal reflux disease) History of angiography Open wound PAD (peripheral artery disease) PICC (peripherally inserted central catheter) in place Family History Family History Other Diabetes Surgical History Surgical History Amputated toe of right foot (11/05/20) Social History Social History Household Members: Spouse Housing: Apartment Do you presently have visiting nurse or other home services: No Alcohol intake: never Patient Tobacco Use Status: Former Tobacco user Tobacco use type: Cigarette Years Smoked: 15 Second Hand Smoke Exposure: No service: No Current occupational status: employed Meds Allergies Allergy/AdvReac Type Severity Reaction Status Date / Time No Known Allergies Allergy Verified 07/23/21 09:50 Active Medications: Current Medications Acetaminophen (Acetaminophen 325 Mg Tablet) 650 mg PO Q6H PRN PRN Reason: Pain, Mild (Pain Scale 1-3) Apixaban (Apixaban 5 Mg Tablet) 5 mg PO BID [facility] Last Admin: 09/02/21 21:05 Dose: 5 mg Documented by: Atorvastatin Calcium (Atorvastatin Calcium 40 Mg Tablet) 40 mg PO DAILY [facility] Last Admin: 09/02/21 08:24 Dose: 40 mg Documented by: Dextrose (Dextrose 50 % 25 Gm/50 Ml Vial) 25 gm IVPUSH Q15M PRN; Protocol PRN Reason: per Hypoglycemia Standing Ord. Glucose (Glucose Gel 15 Gm Gel..Gram.) 15 gm PO Q15M PRN; Protocol PRN Reason: per Hypoglycemia Standing Ord. Piperacillin Sod/Tazobactam (Sod 3.375 gm/ Sodium Chloride) 50 mls @ 100 mls/hr IV Q6H [facility] Last Infusion: 09/02/21 18:13 Dose: Infused Documented by: Vancomycin HCl 1,000 mg/ (Sodium Chloride) 270 mls @ 270 mls/hr IV Q12H [facility] Last Infusion: 09/02/21 17:45 Dose: Infused Documented by: Lactated Ringer's (Lr) 1,000 mls @ 80 mls/hr IVCONT .[id number] [facility] Last Admin: 09/02/21 18:20 Dose: 80 mls/hr Documented by: Insulin Glargine (Insulin Glargine,Hum.Rec.Anlog 100 Unit/Ml 10 Ml Vial) 20 unit SUBCUT BID [facility] Last Admin: 09/02/21 21:05 Dose: 20 unit Documented by: Insulin Human Lispro (Insulin Lispro 100 Unit/Ml 3 Ml Vial) 0 unit SUBCUT QIDACHS [facility]; Protocol Last Admin: 09/02/21 21:05 Dose: 6 unit Documented by: Magnesium Hydroxide (Milk Of Magnesia 30 Ml Oral.Susp) 30 ml PO DAILY PRN PRN Reason: Constipation Omeprazole (Omeprazole 20 Mg Capsule.Dr) 20 mg PO BID@0630,1630 [facility] Last Admin: 09/02/21 16:21 Dose: 20 mg Documented by: Ondansetron HCl (Ondansetron Hcl 4 Mg/2 Ml Vial) 4 mg IVPUSH Q8H PRN PRN Reason: Nausea and Vomiting Pharmacy Consult (Consult Rx Perform Med Rec) 1 each MISCELLANE ONCE PRN PRN Reason: Consult order Pharmacy Consult (Consult Rx Vancomycin Dosing) 1 each MISCELLANE DAILY PRN PRN Reason: Consult order Polyethylene Glycol (Polyethylene Glycol 3350 17 Gm Powd.Pack) 17 gm PO DAILY [facility] Last Admin: 09/02/21 08:24 Dose: Not Given Documented by: Sodium Chloride (0.9 % Sodium Chloride Flush 3 Ml Syringe) 3 ml IVFLUSH QSHIFT [facility] Last Admin: 09/02/21 21:06 Dose: 3 ml Documented by: Home Medications Medication Instructions Recorded Confirmed Last Taken Type metformin 1,000 mg tablet 1 tab PO BID 10/31/20 08/30/21 08/30/21 History blood sugar diagnostic #10 ea 11/20/20 06/30/21 Unknown History pen needle, diabetic 32 gauge x #50 ea 11/20/20 06/30/21 Unknown History atorvastatin 40 mg tablet 1 tab PO DAILY 06/30/21 08/30/21 08/30/21 History insulin glargine 100 unit/mL (3 15 unit SUBCUT BID 06/30/21 08/30/21 08/30/21 History mL) subcutaneous pen (Basaglar KwikPen U-100 Insulin) aspirin 81 mg tablet,delayed 1 tab PO DAILY 08/30/21 08/30/21 08/30/21 History release dulaglutide 1.5 mg/0.5 mL 1.5 mg SUBCUT Q7D 08/30/21 08/30/21 08/30/21 History subcutaneous pen injector (Trulicity) levofloxacin 750 mg tablet 1 tab PO DAILY 08/30/21 08/30/21 08/30/21 History Physical Exam Vital Signs: Vital Signs: Last Vital Signs Temp 98.5 F 09/02/21 19:29 Pulse 101 H 09/02/21 19:29 Resp 20 09/02/21 19:29 BP 147/89 H 09/02/21 19:29 Pulse Ox 98 09/02/21 19:29 BMI result Body Mass Index 28.1 Const: General: cooperative Eyes: General: appearance normal, both eyes and all related structures Resp: Effort & Inspection: normal respiratory effort Cardio: Rate: regular rate Rhythm: regular rhythm GI: Palpation (GI): Soft to palpation and nontender : General: Yes no CVA tenderness Back/Spine/Pelvis: Back: no CVA tenderness Skin: General skin exam: no rashes or lesions noted Extrem: Other: left TMA redness site Results Labs CBC & Chem 7: 09/02/21 08:09 09/02/21 08:09 Labs: Short CBC 09/02/21 Range/Units 08:09 Hgb 9.5 L (14.0-18.0) g/dl Hct 29.7 L D (42.0-52.0) % BMP 09/02/21 08:09 Sodium 135 Potassium 5.1 Chloride 105 Carbon Dioxide 21 L BUN 19 H Creatinine 1.10 Calcium 8.9 Microbiology Microbiology Results: Microbiology 08/30/21 17:35 Blood - Venous Blood Culture - Preliminary No growth after 48 hours. 08/30/21 17:06 Blood - Venous Blood Culture - Preliminary No growth after 48 hours. Assessment and Plan (1) Open wound: Status: Acute He has nonhealing TMA He has possible anerobes,gram negative,gram positive (2) ALEKSANDR (acute kidney injury): Status: Acute Dr Hammer ?GRABIEL Continue Wound Clinic IV Vancomycin and Zosyn await cultures,may try six weeks IV treatment
[2021-09-02 23:49] VITALS: BP 142/71; PULSE 99; RESP 18; TEMP 37; O2SAT 99
[2021-09-03] MEDS: Piperacillin Sodium/Tazobactam 3.375 GM in 0.9 % Sodium Chloride 50 ML IV ×3 (00:03→12:22)
[2021-09-03 02:15] LABS: Vancomycin Trough 9.3 mcg/mL (10.0-20.0)
[2021-09-03 03:50] VITALS: BP 147/63; PULSE 80; RESP 20; TEMP 37.2; O2SAT 94
[2021-09-03] MEDS: vancomycin HCL 1,000 MG in 0.9 % Sodium Chloride 250 ML 270 MG IV (04:15)
[2021-09-03] MEDS: Lactated Ringers 1,000 ML 80 ML IVCONT (05:45)
[2021-09-03] MEDS: Omeprazole 20 MG CAPSULE.DR PO (05:49)
[2021-09-03 06:23] LABS: Hematocrit 25.4 % (42.0-52.0); Hemoglobin 8.1 g/dl (14.0-18.0); Mean Corpuscular HGB Conc 31.9 g/dl (31.0-36.0); Mean Corpuscular Hemoglobin 27.1 pg (27.0-33.0); Mean Corpuscular Volume 84.9 fL (80.0-98.0); Mean Platelet Volume 8.5 fL (9.4-12.4); Platelet Count 473 X10*3/uL (160-400); Red Blood Count 2.99 X10*6/uL (4.60-5.80); Red Cell Distribution Width 15.8 % (11.0-16.0); White Blood Count 10.6 X10*3/uL (4.8-10.8)
[2021-09-03 06:44] LABS: Anion Gap 11 (12-20); Blood Urea Nitrogen 18 mg/dL (9-16); Calcium 8.2 mg/dL (8.4-10.2); Carbon Dioxide 21 mmol/L (22-29); Chloride 107 mmol/L (96-108); Creatinine Clr Calc Pharmacy 108.7; Estimated Glomerular Filt Rate > 60; Glucose Random 346 mg/dL (60-115); Potassium 4.8 mmol/L (3.3-5.1); Sodium 134 mmol/L (135-145)
[2021-09-03 07:17] VITALS: BP 165/85; PULSE 88; RESP 18; O2SAT 98
[2021-09-03 07:39] LABS: Glucose, Whole Blood 387 mg/dL (60-115)
--- NOTE | 2021-09-03 07:57 | PHA.PROG ---
Admission Date/Time: August 30, 2021 19:51 Indication: SKIN/SKIN STRUCTURE Weight in k.64 kg Adjusted body weight in Kg: Holcomb body weight in Kg: Obesity Dosing Indication % IBW: Serum Creatinine - Last 168 Hours 08/30/21 08/31/21 09/01/21 11:54 08:08 07:01 Creatinine 1.70 H 0.93 1.05 09/02/21 09/03/21 08:09 05:53 Creatinine 1.10 0.85 Estimated CrCl and GFR - Last 168 Hours 08/30/21 08/31/21 09/01/21 11:54 08:08 07:01 Estim Creat Clear Calc 54.3 99.3 88.0 Estimated GFR 43 > 60 > 60 09/02/21 09/03/21 08:09 05:53 Estim Creat Clear Calc 84.0 108.7 Estimated GFR > 60 > 60 Vancomycin Loading Dose: Current Vancomycin Dosing Regimen: CHANGE IN DOSE TO 1500 Q12H Vancomycin Monitoring using AUC goal of 400 - 600 range with trough as surrogate marker: AUC 470, TROUGH 11.5 Date and Time for next Vancomycin Level to be drawn: 09/04 AT 1400 Vancomycin Trough 9.3 mcg/mL (10.0-20.0) L 09/03/21 01:48 Pharmacist Comments on Vancomycin Plan: Vancomycin dosing will take advantage of [employer] as a clinical decision support tool that uses Bayesian modeling to calculate individual patient's pharmacokinetic parameters and forecast the patient's drug concentration time course with the target goal AUC 24 range of 400 - 600 mg/L/hr.
[2021-09-03] MEDS: Atorvastatin Calcium 40 MG TABLET PO (08:13)
[2021-09-03] MEDS: Insulin Lispro 100 UNIT/ML 3 ML VIAL SUBCUT ×2 (08:13→11:56)
[2021-09-03] MEDS: Insulin Glargine,Hum.rec.anlog 100 UNIT/ML 10 ML VIAL 20 UNIT SUBCUT (08:13)
[2021-09-03] MEDS: Apixaban 5 MG TABLET PO (08:14)
[2021-09-03 11:20] VITALS: BP 133/88; PULSE 86; RESP 18; TEMP 36.6; O2SAT 99
[2021-09-03 11:33] LABS: Glucose, Whole Blood 340 mg/dL (60-115)
--- NOTE | 2021-09-03 15:07 | P.DS_ITS ---
DS: Providers Provider Date of Service: 09/03/21 Date of admission: 08/30/21 19:51 Primary care physician: Michelle Samson MD Consults: 08/31/21 00:43 Consult to Infectious Diseases Routine Consulting Provider: Lourdes Gonzalez Reason for consultation: diabetic wound Has provider been notified: No 08/31/21 06:58 Consult to Vascular Surgery Routine Consulting Provider: Bebeto Hammer Reason for consultation: osteomyelitis w hx of PAD Has provider been notified: No 08/31/21 07:28 Consult to General Surgery Routine Consulting Provider: Avelino Davila Reason for consultation: left foot non healing wound, diabetic /sepsis Has provider been notified: No DS: Diagnosis Discharge Diagnosis (1) Open wound: Status: Acute (2) ALEKSANDR (acute kidney injury): Status: Acute DS: Summary Hospital Course Hospital Course: Chief Complaint: hypotensive, vomiting ?this is a 50-year-old male with past medical history of diabetes, 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 who presents to the hospital after being sent from Wound Care for hypotension and tachycardia.? Patient was recently discharged from the hospital on 07/12 after having sepsis secondary to diabetic foot infection/acute osteomyelitis/abscess of left foot.? At that time he was started on broad spectrum IV antibiotics, lower extremity arterial ultrasound showed occlusion of the left mid SFA, he was seen by vascular surgery and underwent left SFA atherectomy/ stenting on July 03.? At that time he was also found to have a left SFA occlusion with a soft plates concerning for embolic event, patient was started on Eliquis.? MRI on previous admission showed left foot osteomyelitis with abscess and soft tissue gas. He underwent left transmetatarsal amputation 07/04.? It was noted that his left amputation site was not healing well, further amputation was discussed with the patient but he declined and was eager to be discharged home.? He was seen by infectious disease and did not require long-term antibiotics at the time.? He was sent home a 10 day course of doxycycline and Augmentin which patient reports was compliant and finished. since being discharged on 07/12 patient has been following with Wound Care Clinic but today developed hypotension while in the hyperbaric chamber and had tachycardia and therefore sent to the ED. ? He is also complaining of nausea, vomiting, as well as dizziness, he has had about 2-3 episodes of diarrhea per day for the past 2-3 days.? He has also noticed black stool for the past 3 days, urine output has also decreased he denies any fever, he has some chills, no chest pain, no shortness of breath, no cough, no urinary symptoms. ? On arrival to the ED patient vitals are significant for temp of 98.7?, heart rate of 118, respiratory rate of 18, blood pressure of 82/57, satting 97% on room air.? Patient received sepsis fluid with improvement in his blood pressure. ? Labs are significant for WBC count of 10.7, hemoglobin of 7.7 which dropped to 6.9 after IV fluids, hematocrit 24, platelet count of 655, ESR of more than 140, PT of 18.2, INR 1.6, creatinine of 1.7 with 1.0 glucose of 352, lactic acid of 1.3, CRP of 8.6, UA negative for infection, stool occult blood negative, UDS positive for cocaine.? COVID-19 negative Hospital course: #?Sepsis due to nonheling left transmetatarsal amputation site, initially was hypOtensive, tachycardic and was treated with IVF. He was treated with IV antibiotics (Zosyn and Vancomycin). Wound culture grew MSSA and Pseudomonas. He was seen by general surgery with no need for debridement and to continue wound care with hyperbaric treatment. He was also seen by Dr. Hammer of vascular surgery and also recommends no intervention at this time and outaptient follow up. MRI Findings suspicious for osteomyelitis involving the residual. ID recommends 6 weeks of IV Vancomycin and Oral Levaquin, however patient doesn't want IV antibitoics and therefore will treat with Oral Levaquin for Pseudomonas and Oral Doxycyline to cover MSSA, Levaquin also has good coverage of MSSA #? Acute on chronic anemia due to anemia of chronic disease with low hemoglobin of 6.9, transfused 2 units of RBC with good effect, hemoglobin now 8.1 #? Peripheral vascular disease with prior embolc event and has been on Eliquis, which was briefly on hold d/t anemia but is restarted per vascular recommendation' #? diabetes--to resume home insulin # Nausea and vomitting on admission--CT show constipation and treated with Miralax, n/v has since resolved #? ALEKSANDR--d/t pre renal azotemia--Creatinine was up to 1.7 and now 0.85 Time Spent with Patient Time attestation: Total time spent providing and/or coordinating discharge services: Discharge coordination time: Greater than 30 minutes Quality: Stroke Does the patient have a stroke diagnosis?: No Physical Exam Verdana 4l Vital Signs: Verdana 4d Verdana 4d Vital Signs: Verdana 4d Verdana 4Bd Last Vital Signs Verdana 4d Turbine Technician New 4d Turbine Technician New 4d Temp 97.8 F 09/03/21 11:20 Turbine Technician New 4d Pulse 86 09/03/21 11:20 Turbine Technician NewNew 4d Resp 18 09/03/21 11:20 BP 133/88 09/03/21 11:20 Pulse Ox 99 09/03/21 11:20 BMI result Body Mass Index 28.1 DS: Data Data Completed and Pending Labs on day of discharge: Laboratory Results - last 24 hr 09/02/21 09/02/21 09/03/21 15:47 20:14 01:48 WBC RBC Hgb Hct MCV MCH MCHC RDW Plt Count MPV Absolute Nucleated RBC Nucleated RBC % (auto) Sodium Potassium Chloride Carbon Dioxide Anion Gap BUN Creatinine Estim Creat Clear Calc Estimated GFR POC Glucose 234 H 279 H Random Glucose Calcium Vancomycin Trough 9.3 L 09/03/21 09/03/21 09/03/21 05:53 05:53 07:20 WBC 10.6 RBC 2.99 L Hgb 8.1 L Hct 25.4 L MCV 84.9 MCH 27.1 MCHC 31.9 RDW 15.8 Plt Count 473 H MPV 8.5 L Absolute Nucleated RBC 0.000 Nucleated RBC % (auto) 0.0 Sodium 134 L Potassium 4.8 Chloride 107 Carbon Dioxide 21 L Anion Gap 11 L BUN 18 H Creatinine 0.85 Estim Creat Clear Calc 108.7 Estimated GFR > 60 POC Glucose 387 H* Random Glucose 346 H Calcium 8.2 L D Vancomycin Trough 09/03/21 11:23 WBC RBC Hgb Hct MCV MCH MCHC RDW Plt Count MPV Absolute Nucleated RBC Nucleated RBC % (auto) Sodium Potassium Chloride Carbon Dioxide Anion Gap BUN Creatinine Estim Creat Clear Calc Estimated GFR POC Glucose 340 H Random Glucose Calcium Vancomycin Trough Preliminary micro results at discharge 08/30/21 17:35 Blood Culture - Preliminary Blood - Venous No growth after 48 hours. 08/30/21 17:06 Blood Culture - Preliminary Blood - Venous No growth after 48 hours. Discharge Plan Discharge Anticipated Discharge Date/Time: 09/03/21 14:54 Patient Disposition: Home, Self-Care Discharge Diagnosis: Osteomyltisis of the stump Referrals: Michelle Samson MD [Primary Care Provider] - 1 Week Discharge Medications: New doxycycline hyclate 100 mg tablet 100 mg PO BID 14 Days Qty: 28 RF: 0 doxycycline hyclate 100 mg tablet,delayed release (DR/EC) 100 mg PO BID 42 Days Qty: 84 RF: 0 Continued metformin 1,000 mg tablet 1 tab PO BID RF: 0 aspirin 81 mg tablet,delayed release (DR/EC) 1 tab PO DAILY RF: 0 Trulicity 1.5 mg/0.5 mL pen injector 1.5 mg subcut Q7D RF: 0 atorvastatin 40 mg tablet 1 tab PO DAILY RF: 0 Basaglar KwikPen U-100 Insulin 100 unit/mL (3 mL) insulin pen 15 unit subcut BID RF: 0 lisinopril 20 mg tablet 20 mg PO DAILY 30 Days Qty: 30 RF: 0 amlodipine [Norvasc] 10 mg tablet 10 mg PO DAILY 30 Days Qty: 30 RF: 0 Eliquis 5 mg tablet 5 mg PO BID 30 Days Qty: 60 RF: 0 (DME) Contour Test Strips Strip See Rx Instructions strip .ROUTE .MEDSUPPLY Qty: 10 RF: 0 (DME) pen needle, diabetic 32 gauge x 5/32 needle See Rx Instructions ea subcut .MEDSUPPLY Qty: 50 RF: 0 levofloxacin 750 mg tablet 1 tab PO DAILY Qty: 42 RF: 0 Discharge Orders: Discharge Order (Routine); Ordered 09/03/21 Ordered By: Trenton Neal Diet: advance to usual diet and diabetic diet Activity on Discharge: As tolerated Stand Alone Forms: Patient Portal Discharge page Care Plan Goals: Fully healed diabetic foot ulcer with osteomylitis Health Concerns: non healing diabetic foot ulcer, and osteomlytitis Plan of Treatment: Take Levaquin and Doxycyline as recommended and follow up with Dr. Hammer within a week Follow up with wound clinic within a week Assessment: As above
--- NOTE | 2021-09-03 15:23 | MHC.CM.PN ---
Male 50 DX S/P TMA Anemia hypotension He is discharged to home. He will resume wound clinic appointments @ [facility] wound clinic. He will follow up with Dr Hammer in 1 week. Patient has arranged for transportation.
== END 2021-09-03 17:50 | disposition home health service (06) | DRG 349 ==
LOC: HO.ED 19:07 → HO.EDOVER 20:08 → HO.IMC 08-31 22:14
PROVIDERS: Family Medicine; Internal Medicine; Physician Assistant; Admitting Provider Internal Medicine; Emergency Provider Emergency Medicine; PCP Internal Medicine; Visit Provider Internal Medicine
DX: T87.44 Infection of amputation stump, left lower extremity (principal); A41.9 Sepsis, unspecified organism; N17.9 Acute kidney failure, unspecified; D63.8 Anemia in other chronic diseases classified elsewhere; M86.9 Osteomyelitis, unspecified; E86.0 Dehydration; E11.51 Type 2 diabetes mellitus with diabetic peripheral angiopathy without gangrene; E11.69 Type 2 diabetes mellitus with other specified complication; K59.00 Constipation, unspecified; K21.9 Gastro-esophageal reflux disease without esophagitis; B95.61 Methicillin susceptible Staphylococcus aureus infection as the cause of diseases classified elsewhere; Z20.822 Contact with and (suspected) exposure to COVID-19; Z87.891 Personal history of nicotine dependence; Z86.718 Personal history of other venous thrombosis and embolism; Z79.01 Long term (current) use of anticoagulants; Z79.82 Long term (current) use of aspirin; Z79.84 Long term (current) use of oral hypoglycemic drugs; Z79.899 Other long term (current) drug therapy
CPT/HCPCS: 36415; 36430; 73720; 74176; 80048; 80076; 80202; 80307; 81001; 82009; 82272; 82947; 83605; 85014; 85018; 85025; 85027; 85610; 85652; 85730; 86140; 86850; 86900; 86901; 86923; 87040; 87635; 93005; 96361; 96374; 96375; 99285; 99291; A9585; J2405; J2543; J3370; P9016

== ENCOUNTER → 2021-10-01 09:40 | Outpatient (BNVA) | payer OTHER, SELFPAY | PROVIDERS: PCP Physician Assistant; Visit Provider Surgery Vascular Surgery | DX: Z47.81 Encounter for orthopedic aftercare following surgical amputation (principal); Z89.422 Acquired absence of other left toe(s) | CPT/HCPCS: 99212 ==

== ENCOUNTER 2021-10-25 08:14 | Outpatient (REF) | payer OTHER, SELFPAY ==
[2021-10-25 08:59] LABS: Hematocrit 27.9 % (42.0-52.0); Hemoglobin 8.6 g/dl (14.0-18.0); Mean Corpuscular HGB Conc 30.8 g/dl (31.0-36.0); Mean Corpuscular Hemoglobin 25.2 pg (27.0-33.0); Mean Corpuscular Volume 81.8 fL (80.0-98.0); Platelet Count 515 X10*3/uL (160-400); Red Blood Count 3.41 X10*6/uL (4.60-5.80); Red Cell Distribution Width 16.3 % (11.0-16.0); White Blood Count 7.4 X10*3/uL (4.8-10.8)
[2021-10-25 09:09] LABS: Estimated Average Glucose 280 mg/dL; Hemoglobin A1c % 11.4 %
[2021-10-25 09:38] LABS: Erythrocyte Sedimentation Rate 107 MM/HR (0-15)
[2021-10-25 10:08] LABS: Creatinine Urine 81.25 mg/dL; Microalbum/Creatinine Ratio Ur 196.9 ug/mg cr
[2021-10-25 10:12] LABS: Alanine Aminotransferase 8 U/L (0-40); Albumin Level 3.5 g/dL (3.5-5.0); Alkaline Phosphatase 111 U/L (39-117); Anion Gap 12 (12-20); Aspartate Amino Transferase 10 U/L (5-37); Bilirubin Total 0.2 mg/dL (0.0-1.0); Blood Urea Nitrogen 18 mg/dL (9-16); Calcium 9.3 mg/dL (8.4-10.2); Carbon Dioxide 26 mmol/L (22-29); Chloride 103 mmol/L (96-108); Cholesterol 117 mg/dL; Estimated Glomerular Filt Rate 59; Glucose Fasting 344 mg/dL (60-99); HDL Cholesterol 34 mg/dL; LDL Cholesterol Calculated 65 mg/dl; Potassium 5.2 mmol/L (3.3-5.1); Sodium 136 mmol/L (135-145); Total Protein 7.3 g/dL (6.5-8.0); Triglycerides 94 mg/dL
[2021-10-25 10:16] LABS: Prostate Specific Antigen Scr 0.58 ng/mL (<0.05-4.0)
== END 2021-10-25 08:15 | disposition home or self-care (01) ==
LOC: HO.LAB 08:14
PROVIDERS: PCP Physician Assistant; Visit Provider Physician Assistant
DX: Z12.5 Encounter for screening for malignant neoplasm of prostate (principal); E11.9 Type 2 diabetes mellitus without complications; M86.672 Other chronic osteomyelitis, left ankle and foot
CPT/HCPCS: 36415; 80053; 80061; 82043; 83036; 84153; 84443; 85027; 85652

== ENCOUNTER 2021-11-26 12:47 | Outpatient (REF) | payer OTHER, SELFPAY ==
--- NOTE | ~2021-11-26 | US_ITS ---
EXAMINATION: NONINVASIVE ASSESSMENT OF THE ARTERIES OF BOTH LOWER EXTREMITIES INCLUDING PVR EXAM AND BILATERAL LOWER EXTREMITY DUPLEX. CLINICAL INFORMATION: Claudication COMPARISON: Bilateral lower extremity arterial duplex and MOISE on 02/11/2021 TECHNIQUE: Ankle pulse volume recordings, ankle pressure measurements and ankle brachial indices were obtained of the lower extremity arterial system bilaterally in addition to duplex Doppler techniques with wave form analysis and measurement of velocities in the common femoral, profunda femoral, superficial femoral, popliteal, tibial and peroneal arteries. The study was performed only at rest. FINDINGS: RIGHT LEG 1. THE RIGHT ANKLE-BRACHIAL INDEX IS: 1.11 >0.97-1.25 = normal - no significant arterial disease 0.75-0.96 = mild peripheral arterial disease 0.5-0.74 = moderate peripheral arterial disease <0.50 = severe peripheral arterial disease <0.30 = critical arterial disease 2. SEGMENTAL PRESSURES (mmHg): Ankle: PT 142, DP 130 3. PVR WAVEFORMS: Ankle: Triphasic 4. DIRECT DUPLEX: Common femoral artery: 141 cm/s, Multiphasic Profunda femoris artery: 145 cm/s, Multiphasic Superficial femoral artery (proximal): 122 cm/s, Multiphasic Superficial femoral artery (mid): 247 cm/s, Multiphasic Superficial femoral artery (distal): 116 cm/s, Multiphasic Proximal Popliteal artery: 109 cm/s, Multiphasic Mid posterior tibial artery: 114 cm/s, monophasic LEFT LE. THE LEFT ANKLE-BRACHIAL INDEX IS: 1.27 (higher of the DP/PT) >0.97-1.25 = normal - no significant arterial disease 0.75-0.96 = mild peripheral arterial disease 0.5-0.74 = moderate peripheral arterial disease <0.50 = severe peripheral arterial disease <0.30 = critical arterial disease 2. SEGMENTAL PRESSURES: Ankle: PT 163, DP 3. PVR WAVEFORMS: Ankle: Triphasic 4. DIRECT DUPLEX: Common femoral artery: 169 cm/s, Multiphasic Profunda femoris artery: 220 cm/s, Multiphasic Superficial femoral artery (proximal): 165 cm/s, Multiphasic Superficial femoral artery (mid): 99 cm/s, Multiphasic Superficial femoral artery (distal): 129 cm/s, Multiphasic Proximal Popliteal artery: 112 cm/s, Multiphasic Mid posterior tibial artery: 216 cm/s, monophasic US/US MOISE complete IMPRESSION: 1. Bilateral lower extremity stents appear patent. 2. Persistent elevated velocities in the [place] superficial femoral artery, however normal MOISE. 3. Prominent bilateral inguinal lymph nodes.
--- NOTE | ~2021-11-26 | US_ITS ---
EXAMINATION: NONINVASIVE ASSESSMENT OF THE ARTERIES OF BOTH LOWER EXTREMITIES INCLUDING PVR EXAM AND BILATERAL LOWER EXTREMITY DUPLEX. CLINICAL INFORMATION: Claudication COMPARISON: Bilateral lower extremity arterial duplex and MOISE on 02/11/2021 TECHNIQUE: Ankle pulse volume recordings, ankle pressure measurements and ankle brachial indices were obtained of the lower extremity arterial system bilaterally in addition to duplex Doppler techniques with wave form analysis and measurement of velocities in the common femoral, profunda femoral, superficial femoral, popliteal, tibial and peroneal arteries. The study was performed only at rest. FINDINGS: RIGHT LEG 1. THE RIGHT ANKLE-BRACHIAL INDEX IS: 1.11 >0.97-1.25 = normal - no significant arterial disease 0.75-0.96 = mild peripheral arterial disease 0.5-0.74 = moderate peripheral arterial disease <0.50 = severe peripheral arterial disease <0.30 = critical arterial disease 2. SEGMENTAL PRESSURES (mmHg): Ankle: PT 142, DP 130 3. PVR WAVEFORMS: Ankle: Triphasic 4. DIRECT DUPLEX: Common femoral artery: 141 cm/s, Multiphasic Profunda femoris artery: 145 cm/s, Multiphasic Superficial femoral artery (proximal): 122 cm/s, Multiphasic Superficial femoral artery (mid): 247 cm/s, Multiphasic Superficial femoral artery (distal): 116 cm/s, Multiphasic Proximal Popliteal artery: 109 cm/s, Multiphasic Mid posterior tibial artery: 114 cm/s, monophasic LEFT LE. THE LEFT ANKLE-BRACHIAL INDEX IS: 1.27 (higher of the DP/PT) >0.97-1.25 = normal - no significant arterial disease 0.75-0.96 = mild peripheral arterial disease 0.5-0.74 = moderate peripheral arterial disease <0.50 = severe peripheral arterial disease <0.30 = critical arterial disease 2. SEGMENTAL PRESSURES: Ankle: PT 163, DP 3. PVR WAVEFORMS: Ankle: Triphasic 4. DIRECT DUPLEX: Common femoral artery: 169 cm/s, Multiphasic Profunda femoris artery: 220 cm/s, Multiphasic Superficial femoral artery (proximal): 165 cm/s, Multiphasic Superficial femoral artery (mid): 99 cm/s, Multiphasic Superficial femoral artery (distal): 129 cm/s, Multiphasic Proximal Popliteal artery: 112 cm/s, Multiphasic Mid posterior tibial artery: 216 cm/s, monophasic US/US arterial duplex LE BI IMPRESSION: 1. Bilateral lower extremity stents appear patent. 2. Persistent elevated velocities in the [place] superficial femoral artery, however normal MOISE. 3. Prominent bilateral inguinal lymph nodes.
== END 2021-11-26 12:48 | disposition home or self-care (01) ==
LOC: HO.US 12:47
PROVIDERS: PCP Physician Assistant; Visit Provider Surgery Vascular Surgery
DX: I73.9 Peripheral vascular disease, unspecified (principal); R14.0 Abdominal distension (gaseous); R11.2 Nausea with vomiting, unspecified; D64.9 Anemia, unspecified; K21.00 Gastro-esophageal reflux disease with esophagitis, without bleeding
CPT/HCPCS: 93923; 93925; 99202

== ENCOUNTER → 2021-12-03 12:58 | Outpatient (BNVA) | payer OTHER, SELFPAY | PROVIDERS: PCP Physician Assistant; Visit Provider Surgery Vascular Surgery | DX: I73.9 Peripheral vascular disease, unspecified (principal) | CPT/HCPCS: 99212 ==

== ENCOUNTER 2021-12-24 11:00 | Outpatient (RCR) | payer OTHER, SELFPAY ==
[2021-10-29 15:02] VITALS: BP 134/89; PULSE 113
--- NOTE | 2021-10-29 15:52 | MHC.PT.EP ---
[facility] [place] Office [place] Office [place] Office [address] Corrina Lemos [address] [phone] F: [phone] F: [phone] F: [phone] F: [phone] Physical Therapy Plan of Care Date of Evaluation: Date of Surgery: NA Diagnosis: Unspecified disorder of synovium and tendon, R shoulder Assessment: Irving is a 50 year old male who is referred to PT for unspecified disorder of synovium and tendon, R shoulder . Pt reports of having insidious onset of shoulder pain about 3 months back. Denies any trauma or fall. On PT examination he reports of having constant pain of 8/10 pain at rest and 10/10 with shoulder movements with over head activities, carrying and lifting, decreased shoulder ROM, decreased shoulder and scap muscle strength, altered posture and altered GH rhythm. Due to these impairments he has pain and difficulties with ADLS however is able to perform them. He is unemployed. He would benefit from skilled PT to address the aforementioned impairments and improve tolerance to functional activities. Frequency and Duration: The patient will be seen 2/week for 6 weeks Short Term Goals: 1. Pt will have 50% decrease in pain which will enable him to sit without pain in 2 weeks 2. Pt will be able to move his shoulder through full plane of motion without pain which will enable him to dress his upper body without pain in 3 weeks Usp Goals: 1. Pt will demonstrate an increase in muscle strength by 1 grade which will enable him to perform over head activities like cleaning, and placing and removing dished without pain in 5 weeks. 2. Pt will be independent with [facility] for symptom management and maintenance following d/c in 6 weeks. Treatment Plan: Modalities to reduce pain, spasms and effusion. Manual therapy to restore motion and function. Therapeutic exercise to improve strength and flexibility. Neuromuscular re-education for posture and balance. Therapeutic activities to return to functional activities of daily living. Electronically signed by: Teri Britton PT DPT Please sign and return to therapist. Thank you for your referral.
--- NOTE | 2022-01-09 09:37 | MHC.PT.DC ---
[facility] [place] Office [place] Office [place] Office [address] Corrina Lemos [address] [phone] F: [phone] F: [phone] F: [phone] F: [phone] Physical Therapy Discharge Report Diagnosis: Unspecified disorder of synovium and tendon, R shoulder Date of Surgery: NA Date of Evaluation: 10/29/21 Date of Discharge: 01/09/22 Treatments to Date: 4 Cancellations to Date: 2 No Shows to Date: 2 Discharge Status: Visit Non-compliance Discharge Summary: Irving has attended 4 PT visits in 2.5 months. He has had 2 no shows and 2 cancellations. He is being d/c from PT for non compliance. Electronically signed by: Teri Britton PT DPT Please sign and return to therapist. Thank you for your referral.
== END 2022-01-09 09:37 | disposition home or self-care (01) ==
LOC: HO.PT 11:00
PROVIDERS: PCP Physician Assistant; Visit Provider Physician Assistant
DX: M67.911 Unspecified disorder of synovium and tendon, right shoulder (principal)
CPT/HCPCS: 97110; 97140; 97161

== ENCOUNTER → 2022-03-04 12:51 | Outpatient (BNVA) | payer OTHER, SELFPAY | PROVIDERS: PCP Physician Assistant; Visit Provider Surgery Vascular Surgery | DX: I73.9 Peripheral vascular disease, unspecified (principal) | CPT/HCPCS: 99212 ==

== ENCOUNTER 2022-05-01 13:57 | Outpatient (RCR) | payer OTHER, SELFPAY ==
[2022-05-13 12:58] LABS: MANUAL DIFF FLAG NO
[2022-05-13 13:55] LABS: Basophils Absolute Auto 0.1 X10*3/uL (0.0-0.2); Basophils Percent Auto 0.5 % (0-2); Eosinophils Absolute Auto 0.3 X10*3/uL (0.0-0.4); Hematocrit 23.5 % (42.0-52.0); Hemoglobin 7.3 g/dl (14.0-18.0); Imm Gran Abs Auto 0.04 X10*3/uL (0.00-0.03); Imm Gran Pct Auto 0.4 % (0.0-0.4); Lymphocytes Absolute Auto 1.9 X10*3/uL (1.2-4.9); Lymphocytes Percent Auto 17.2 % (20-40); Mean Corpuscular HGB Conc 31.1 g/dl (31.0-36.0); Mean Corpuscular Hemoglobin 25.1 pg (27.0-33.0); Mean Corpuscular Volume 80.8 fL (80.0-98.0); Mean Platelet Volume 9.9 fL (9.4-12.4); Monocytes Absolute Auto 0.9 X10*3/uL (0.1-1.2); Monocytes Percent Auto 8.4 % (2-11); Neutrophils Absolute Auto 7.8 x10*3/uL (2.0-8.3); Neutrophils Percent Auto 70.5 % (45-73); Platelet Count 537 X10*3/uL (160-400); Red Blood Count 2.91 X10*6/uL (4.60-5.80); Red Cell Distribution Width 15.2 % (11.0-16.0)
[2022-05-13 14:05] LABS: Estimated Average Glucose 309 mg/dL; Hemoglobin A1c % 12.4 %
[2022-05-13 14:31] LABS: Anion Gap 16 (12-20); Blood Urea Nitrogen 11 mg/dL (9-16); C Reactive Protein 13.01 mg/dL (< or = 0.50); Calcium 8.7 mg/dL (8.4-10.2); Carbon Dioxide 25 mmol/L (22-29); Chloride 99 mmol/L (96-108); Estimated Glomerular Filt Rate 58; Glucose Fasting 293 mg/dL (60-99); Potassium 4.2 mmol/L (3.3-5.1); Sodium 136 mmol/L (135-145)
[2022-05-13 15:16] LABS: Erythrocyte Sedimentation Rate > 140 MM/HR (0-15)
== END 2022-08-06 13:32 | disposition home or self-care (01) ==
LOC: HO.WCC 13:57
PROVIDERS: Surgery; PCP Nurse Practitioner; Visit Provider Surgery
DX: Z09 Encounter for follow-up examination after completed treatment for conditions other than malignant neoplasm (principal); E11.40 Type 2 diabetes mellitus with diabetic neuropathy, unspecified; F17.210 Nicotine dependence, cigarettes, uncomplicated; F12.90 Cannabis use, unspecified, uncomplicated; Z89.422 Acquired absence of other left toe(s); Z86.31 Personal history of diabetic foot ulcer
CPT/HCPCS: 11042; 11043; 36415; 80048; 83036; 84134; 85025; 85652; 86140; 87071; 87205; 97597; 99213; 99215; J2795

== ENCOUNTER 2022-05-21 14:43 | Inpatient (IN) | payer OTHER, SELFPAY ==
[2022-05-21] VITALS (8 sets, daily range): BP systolic 117–135; BP diastolic 74–94; PULSE 85–104; RESP 16–24; TEMP 37.1–37.5; O2SAT 90–98; BMI 27.3
--- NOTE | ~2022-05-21 | CT_ITS ---
EXAMINATION: CT CHEST WITH CONTRAST CLINICAL INFORMATION: Coughing up blood COMPARISON: Chest x-ray earlier today TECHNIQUE: Multidetector volumetric CT imaging of the chest was obtained after the administration of 65 mL of Omnipaque 350 intravenous contrast without immediate adverse reactions. Axial MIP volume rendering provided. Sagittal and coronal reformatted images were obtained. This CT examination was performed using dose optimization techniques as appropriate, variously including the following: *Automated exposure control *Adjustment of mA and/or kV according to patient size (this includes techniques or standardized protocols for targeted exams where dose is matched to indication/reason for exam; i.e. extremities or head) *Use of iterative reconstruction technique DLP: 332 mGy-cm FINDINGS: The heart is enlarged. Coronary calcifications are present. There is no pericardial effusion. Normal caliber thoracic aorta. A few mildly enlarged mediastinal lymph nodes are noted, for example a right paratracheal node which measures 2.4 cm in maximum transverse dimension. No definitive hilar lymphadenopathy. No pathologically enlarged axillary lymph nodes. Central airways are patent. Lungs are well aerated. Evaluation of lung parenchyma is limited given respiratory motion artifact, however, no gross lobar consolidation is identified. There is some dependent atelectasis bilaterally overlying tiny bilateral pleural effusions. No pneumothorax is present. No suspicious pulmonary nodules. Small fat-containing hernia the posterior medial left lung base. Visualized portions of the upper abdomen are grossly unremarkable. Mild diffuse degenerative changes of the spine. CT/CT chest w con IMPRESSION: -A few mildly enlarged mediastinal lymph nodes are noted, nonspecific. -Tiny bilateral pleural effusions. Fleischner guidelines were followed.
--- NOTE | ~2022-05-21 | XR_ITS ---
EXAMINATION: XR FOOT, RIGHT CLINICAL INFORMATION: Diabetic wound to bone. COMPARISON: 05/17/2021 TECHNIQUE: AP, lateral, and oblique views of the right foot. FINDINGS: Chronic amputation of the fourth digit from the metatarsal neck. There are new erosive/destructive changes at the second digit involving the metatarsal head and the base of the proximal phalanx. Suspected associated fracture at the base of the proximal phalanx. Soft tissue swelling at this area. Small osteophytes of the first metatarsophalangeal joint. Vascular calcifications noted. XR/XR foot RT min 3V IMPRESSION: Destructive changes at the second metatarsophalangeal joint, concerning for osteomyelitis with lucency and erosion. Likely associated fracture at the base of the proximal phalanx.
--- NOTE | ~2022-05-21 | US_ITS ---
EXAMINATION: Noninvasive assessment of the bilateral lower extremities with ARTERIAL DUPLEX and ANKLE BRACHIAL INDICES (ABIs). CLINICAL INFORMATION: Peripheral vascular disease with ischemic ulceration TECHNIQUE: Duplex Doppler techniques with waveform analysis and measurement of velocities in the bilateral common femoral, profunda femoris, superficial femoral, popliteal and tibial arteries were performed. Additionally, ankle pulse volume recordings, ankle pressure measurements and ankle brachial indices were obtained of the lower extremity arterial system bilaterally. The study was performed only at rest. COMPARISON: 11/26/2021 FINDINGS: DIRECT DUPLEX DOPPLER FINDINGS: RIGHT LEG: Common femoral artery: 127 cm/s, phasicity: Triphasic Profunda femoris artery: 77 cm/s, phasicity: Triphasic Superficial femoral artery (proximal): 119 cm/s, phasicity: Triphasic Stent within the proximal to mid superficial femoral artery: Proximal stent: 144 cm/s, triphasic Mid stent: 208 cm/s, triphasic Distal stent: 162 cm/s, triphasic Superficial femoral artery (mid): 219 cm/s, phasicity: Monophasic Superficial femoral artery (distal): 177 cm/s, phasicity: Triphasic Popliteal artery: 162 cm/s, phasicity: Triphasic Posterior tibial artery: 161 cm/s, phasicity: Triphasic Peroneal artery: 102 cm/s, phasicity: Triphasic LEFT LEG: Common femoral artery: 160 cm/s, phasicity: Triphasic Profunda femoris artery: 147 cm/s, phasicity: Triphasic Superficial femoral artery (proximal): 156 cm/s, phasicity: Triphasic Stent within the proximal to mid superficial femoral artery: Proximal stent: 135 cm/s, triphasic Mid stent: 123 cm/s, triphasic Distal stent: 117 cm/s, triphasic Superficial femoral artery (distal): 117 cm/s, phasicity: Triphasic Popliteal artery: 91 cm/s, phasicity: Triphasic Posterior tibial artery: 122 cm/s, phasicity: Triphasic Peroneal artery: 78 cm/s, phasicity: Triphasic ANKLE-BRACHIAL INDEX: Right: 0.99?, previously 1.11 Left: 1.12, previously 1.27 ANKLE PRESSURES: Right: PT 172 Left: PT?194 ANKLE PVR WAVEFORMS: Right: Mildly dampened Left: Mildly dampened US/US arterial duplex LE BI IMPRESSION: Right leg: Normal ankle brachial index. Stent within the proximal to mid superficial femoral artery is patent with borderline elevated velocities within the stent and in the mid superficial femoral artery which appears stable. Patent flow in the below-knee runoff. Left leg: Normal ankle brachial index. Stent within the superficial femoral artery is patent with normal velocities. Normal velocities and waveforms in the popliteal and below-knee runoff vessels MOISE Reference: - >1.4 = calcified vessels - 0.9 - 1.4 = normal - no significant arterial disease - 0.7 - 0.89 = mild peripheral arterial disease - 0.51 - 0.69 = moderate peripheral arterial disease - ? 0.50 = severe peripheral arterial disease - < .30 = critical arterial disease
--- NOTE | ~2022-05-21 | XR_ITS ---
EXAMINATION: XR CHEST CLINICAL INFORMATION: Coughing up blood COMPARISON: 04/24/2022 TECHNIQUE: Frontal view of the chest was obtained. FINDINGS: The lungs are well expanded. There is no focal consolidation, edema, or effusion. No pneumothorax. The cardiomediastinal silhouette is within normal limits. No acute osseous abnormality. XR/XR chest 1V IMPRESSION: Clear lungs.
--- NOTE | ~2022-05-21 | MR_ITS ---
EXAMINATION: MRI RIGHT FOOT WITHOUT AND WITH CONTRAST CLINICAL INFORMATION: Osteomyelitis, evaluate extension of disease. COMPARISON: X-ray 05/26/2022. MRI 09/24/2020. TECHNIQUE: MRI in a high-field magnet without and with contrast. 8 mL Gadavist. FINDINGS: There is plantar skin irregularity/ulceration at the level of the 2nd metatarsal head. There is dorsal soft tissue irregularity/ulceration at the level of the distal 2nd metatarsal head/MTP joint. There is extensive edema in the dorsal and plantar soft tissues and surrounding the 2nd metatarsal and the 2nd toe, indicative of cellulitis. There are prominent areas of nonenhancement in the dorsal soft tissues extending from the skin ulceration into the deep soft tissues and the plantar soft tissues to the bone. This could reflect sinus tracts or phlegmonous change. There appears to be plantar skin ulceration and a nonenhancing edematous tract extending to the deep tissues to the level of the 2nd proximal phalanx, and perhaps the 2nd MTP joint, which could reflect phlegmonous change or sinus tract. Reference image 9:15. Abnormal bright T2, low T1 signal in the distal 2nd metatarsal, 2nd proximal phalanx compatible with osteomyelitis. There is a fracture of the distal 2nd metatarsal neck, likely pathologic in nature related to the osteomyelitis. There likely is a 2nd MTP joint septic arthritis. There is abnormal edema/enhancement in the 2nd metatarsal shaft proximally extending to the level of the proximal base, suspicious for involvement for osteomyelitis. There is increased T2 signal and enhancement in the 2nd middle phalanx suspicious for osteomyelitis. Findings to a lesser degree in the 2nd distal phalanx, which could reflect reactive edema or osteomyelitis. There is amputation of the 4th digit at the level of the distal metatarsal. There is edema and enhancement in the distal aspect of the shaft, suspicious for osteomyelitis. The 2nd digit flexor tendon as it extends along the toe appears thin and irregular, and could be partially torn, and has peritendinitis present. The extensor tendon to the level of the proximal phalanx grossly appears intact. The more distal aspect of the tendon is not well seen, integrity is not confirmed. Edema and enhancement in the intrinsic muscles of foot, could reflect sequela of diabetes or infectious/inflammatory myositis. Visualized plantar aponeurosis grossly appears intact. MR/MR foot RT wo/w con IMPRESSION: Dorsal and plantar soft tissue ulceration at the level of the distal 2nd metatarsal/MTP joint, with nonenhancing edematous tissue extending into the deep soft tissue/bone, could reflect phlegmonous change or sinus tracts. No drainable abscess seen. There also appears be plantar skin ulceration and nonenhancing phlegmonous tissue versus sinus tract extending to the 2nd proximal phalanx/MTP joint. Abnormal findings in the 2nd tarsometatarsal joint, the 2nd proximal phalanx and the 2nd metatarsal compatible with septic arthritis and osteomyelitis. Pathological fracture of the distal 2nd metatarsal neck. The osteomyelitis involving the 2nd metatarsal shaft, and could be extending to the level of the proximal base. Abnormal findings suspicious for osteomyelitis of the 2nd middle phalanx. Reactive edema versus osteomyelitis of the 2nd distal phalanx. Patient's postamputation of the 4th digit at the level of the distal metatarsal. Abnormal findings in the distal 4th metatarsal, suspicious for osteomyelitis. Second digit flexor tendon peritendinitis, and possible partial tearing. The distal aspect of the 2nd extensor tendon is not clearly visualized and integrity is not confirmed. Extensive intrinsic muscle edema/enhancement, could be related to diabetes versus inflammatory/infectious myositis.
--- NOTE | 2022-05-21 14:55 | ECG_ITS ---
Test Reason : WOUND CHECK Blood Pressure : / mmHG Vent. Rate : 102 BPM Atrial Rate : 102 BPM P-R Int : 170 ms QRS Dur : 078 ms QT Int : 380 ms P-R-T Axes : 045 -21 090 degrees QTc Int : 495 ms Sinus tachycardia Possible Left atrial enlargement T-wave inversion in Lateral leads Abnormal ECG When compared with ECG of 30-AUG-2021 11:46, No significant change was found Referred By: Generic ED Physician Electronically Signed By:MENDOZA BAGLEY
[2022-05-21 16:03] LABS: MANUAL DIFF FLAG NO
[2022-05-21 16:09] LABS: INTERNATIONAL NORM RATIO 1.3 (0.9-1.1); Prothrombin Time 14.9 SEC (10.0-13.1)
[2022-05-21 16:13] LABS: Basophils Absolute Auto 0.1 X10*3/uL (0.0-0.2); Basophils Percent Auto 0.4 % (0-2); Eosinophils Absolute Auto 0.2 X10*3/uL (0.0-0.4); Eosinophils Percent Auto 1.3 % (0-4); Hematocrit 21.3 % (42.0-52.0); Imm Gran Abs Auto 0.11 X10*3/uL (0.00-0.03); Imm Gran Pct Auto 0.7 % (0.0-0.4); Lymphocytes Absolute Auto 1.1 X10*3/uL (1.2-4.9); Lymphocytes Percent Auto 6.5 % (20-40); Mean Corpuscular HGB Conc 31.9 g/dl (31.0-36.0); Mean Corpuscular Hemoglobin 24.7 pg (27.0-33.0); Mean Corpuscular Volume 77.5 fL (80.0-98.0); Mean Platelet Volume 9.2 fL (9.4-12.4); Monocytes Absolute Auto 1.1 X10*3/uL (0.1-1.2); Neutrophils Absolute Auto 13.7 x10*3/uL (2.0-8.3); Neutrophils Percent Auto 84.1 % (45-73); Platelet Count 643 X10*3/uL (160-400); Red Blood Count 2.75 X10*6/uL (4.60-5.80); Red Cell Distribution Width 15.5 % (11.0-16.0); White Blood Count 16.3 X10*3/uL (4.8-10.8)
[2022-05-21 16:15] LABS: Hemoglobin 6.8 g/dl (14.0-18.0)
[2022-05-21 16:20] LABS: COVID-19 Test Negative (Negative)
[2022-05-21 16:21] LABS: Alanine Aminotransferase 12 U/L (0-40); Albumin Level 3.2 g/dL (3.5-5.0); Alkaline Phosphatase 110 U/L (39-117); Anion Gap 18 (12-20); Aspartate Amino Transferase 12 U/L (5-37); Bilirubin Direct 0.3 mg/dL (0.0-0.5); Bilirubin Total 0.5 mg/dL (0.0-1.0); Blood Urea Nitrogen 11 mg/dL (9-16); Calcium 8.4 mg/dL (8.4-10.2); Carbon Dioxide 22 mmol/L (22-29); Chloride 97 mmol/L (96-108); Creatinine Clr Calc Pharmacy 65.9; Estimated Glomerular Filt Rate 58; Glucose Random 314 mg/dL (60-115); Potassium 4.6 mmol/L (3.3-5.1); Sodium 132 mmol/L (135-145); Total Protein 7.2 g/dL (6.5-8.0)
--- NOTE | 2022-05-21 17:13 | ED.WOUNDLAC ---
HPI - Wound/Laceration General Chief Complaint: Wound/Laceration Stated Complaint: wound check Time Seen by Provider: 05/21/22 16:18 Source: patient Mode of arrival: ambulatory Limitations: no limitations History of Present Illness HPI narrative: This is a 51-year-old male past medical history significant for poorly-controlled diabetes mellitus, anemia, PAD, left toe amputations, GERD with esophagitis, hypertension presenting to the emergency department with concerns of wound to the right 2nd toe. Patient is currently followed by the [facility] for all his wounds, they noted that his wound to his right 2nd toe was progressively worsening and they are concerned for infection, patient currently on Bactrim without relief. Patient reports that at baseline he has decreased sensation to bilateral lower extremities therefore he is not having any pain there. He reports subjective fevers and chills at home, malaise, fatigue all of which have been going on for about a week or so. Patient reports that this wound started about 2 years ago and has been progressively worsening since, he was seen at the wound center that told him he should come in to be evaluated here today, they placed a wet sterile dressing on the toe and had him come into the emergency department. To note patient has also been reporting an intermittent cough, at times there is blood tinged sputum, this has been going on for few weeks, this has never happened to him before. Patient is not on blood thinners. Patient denies chest pain, shortness of breath, nausea, vomiting, abdominal pain, headache, dizziness, vision changes, rectal bleeding Related Data Home Medications Medication Instructions Recorded Confirmed blood sugar diagnostic #10 ea 11/20/20 12/12/21 pen needle, diabetic 32 gauge x #50 ea 11/20/20 12/12/21 Previous Rx's Medication Instructions Recorded gauze bandage 4 X 4 sponge #1,200 ea 10/10/21 (Curity Gauze) gauze bandage 4 X 75 (Rolled #5 ea 10/10/21 Gauze) ferrous sulfate 325 mg (65 mg 325 mg PO BID 30 days #60 tabs 03/10/22 iron) tablet adhesive tape 2 X 72 #12 ea 04/04/22 amlodipine 10 mg tablet (Norvasc) 10 mg PO DAILY 30 days #30 tabs 04/04/22 apixaban 5 mg tablet (Eliquis) 5 mg PO BID 30 days #60 tabs 04/04/22 calcium alginate 4 X 4 bandage #50 ea 04/04/22 insulin lispro 100 unit/mL 4 unit (0.04 mL) subcut TID 30 04/04/22 subcutaneous pen (Admelog SoloSt days #15 mL U-100 Insulin lispro) lisinopril 20 mg tablet 20 mg PO DAILY 30 days #30 tabs 04/04/22 omeprazole 40 mg capsule,delayed 40 mg PO DAILY 90 days #90 caps 04/04/22 release pen needle, diabetic 32 gauge x #100 ea 04/04/22 (BD Ultra-Fine Karen Pen Needle) metformin 1,000 mg tablet 1,000 mg PO BID #60 tabs 05/05/22 Allergies Allergy/AdvReac Type Severity Reaction Status Date / Time No Known Allergies Allergy Verified 03/04/22 13:01 Review of Systems Review of Systems: Constitutional : No Weight loss, No Fever, No Chills, + Fatigue, + Malaise ENT/Mouth : No sore throat, No Rhinorrhea Eyes: No Eye Pain, No Swelling, No Redness Cardiovascular : No Chest Pain, No SOB, No Dyspnea on Exertion, No Orthopnea, No Edema, No Palpitations Respiratory : No Cough, No Sputum, No Wheezing Gastrointestinal : No Nausea, No Vomiting, No Diarrhea, No Constipation, No abdominal Pain, No Hematochezia, No Melena Genitourinary : No Dysuria, No Urinary Frequency, No Hematuria, Musculoskeletal : No joint pain, No Myalgias, No Joint Swelling Skin : No Skin Lesions, No rash, + wound Neuro : No Weakness, No Numbness, No Dizziness, No Headache All other systems reviewed and are negative Yes all other systems are reviewed and are negative FOR[facility]LY [facility], [facility] Past Medical History Attestation statement: The following information was validated with the patient. Source: old records reviewed and nursing notes reviewed Medical History Anemia Anemia of chronic disease Bacteremia Diabetes Diabetic foot ulcer Diabetic foot ulcer Gangrene of toe of left foot GERD (gastroesophageal reflux disease) History of angiography Open wound Orthostatic hypotension PAD (peripheral artery disease) Peripheral vascular disease PICC (peripherally inserted central catheter) in place Surgical History Amputated toe of right foot (11/05/20) Family History Family History Other Diabetes Social History Social History Household Members: Spouse Housing: Apartment Do you presently have visiting nurse or other home services: No Alcohol intake: current Alcohol intake frequency: a few times a month Patient Tobacco Use Status: Former Tobacco user Tobacco use type: Cigarette Years Smoked: 15 e-Cigarette/Vaping Use: Never Used Second Hand Smoke Exposure: No Use of substances other than those prescribed or required for medical reasons: No Advance Directives: No Advance Directives Information Provided: No service: No Current occupational status: unemployed Physical Exam Vital Signs: Vital Signs: Last Vital Signs Temp 98.7 F 05/21/22 18:37 Pulse 102 H 05/21/22 18:37 Resp 20 05/21/22 18:37 BP 132/94 H 05/21/22 18:37 Pulse Ox 94 05/21/22 17:55 O2 Del Method 05/21/22 17:55 BMI result Body Mass Index 27.3 VSS Appearance: Alert.? Oriented X3.? No acute distress.? Head: Normocephalic, atraumatic, no step-offs or deformities Eyes: Pupils equal, round and reactive to light.? ENT: Pharynx normal.? Neck: Normal inspection.? Neck supple.? CVS: Normal heart rate and rhythm.? Pulses normal.? Respiratory: No respiratory distress.? Breath sounds normal.? Abdomen: Soft and nontender.? Skin: Skin warm and dry.? +palor. Normal skin turgor.? + wound to right second toe with SQ tissue and able to probe the toe Extremities: No lower extremity edema.? No calf ttp. 5/5 strength to bilateral upper and lower extremities + left sided toe amputation w/ overlying dressing. 2+ DP, PT, AT pulses equal and b/l. Neuro: Oriented X 3.? No motor deficit.? + decreased sensation from toes to ankles b/l. . CN 2-12 intact Course Reevaluation(s) Reevaluation #1: CBC with leukocytosis, a microcytic anemia is noted, consent for blood transfusion was obtained, packed red blood cells were ordered, and patient will be transfused with 1 unit of packed red blood cells, chemistry with a slightly low sodium, currently receiving normal saline will recheck values afterwards, lactic acid within normal limits, no acute electrolyte abnormalities requiring intervention. Patient's blood cultures have been collected and are pending. X-ray of the right foot concerning for osteomyelitis OBS was obtained and is currently pending. CT of the chest pending. Time: 17:36 Reevaluation #2: OBS negative. CT of the chest with contrast shows a few mildly enlarged mediastinal lymph nodes and tiny bilateral pleural effusions. At this time patient will be admitted for further evaluation of the anemia, osteomyelitis and hemoptysis. Time: 19:42 MDM - Wound/Laceration MDM Narrative Medical decision making narrative: 1704 51-year-old male presents with fatigue, malaise, subjective fevers and chills, right-sided 2nd toe wound that has been progressively worsening, hemoptysis. Patient was sent in by the wound clinic for further evaluation and treatment. Patient currently taking Bactrim with little to no relief. Physical examination is significant for an open wound with subcutaneous tissue, and able to probe bone to the right 2nd plantar aspect of toe, distal aspect of right foot with warmth, erythema. Patient has a left-sided toe amputation that is currently with overlying dressing. Patient appears pale. Regular rate and rhythm. Lungs clear. Abdomen soft nontender nondistended. Highly suspicious for osteomyelitis with overlying cellulitis, will rule out electrolyte abnormalities, anemia, pneumonia. To note patient had lab work done from triage, as soon as he came to the back a sepsis alert was called because at this time infection is suspected. Will initiate fluids, vancomycin and Zosyn. Medical Records Attestation: I reviewed the patient's medical records. Lab Data Attestation: I reviewed the patient's lab results. Result diagrams: 05/21/22 15:50 05/21/22 15:49 Labs: Lab Results 05/21/22 05/21/22 05/21/22 Range/Units 15:48 15:49 15:49 WBC (4.8-10.8) X10*3/uL RBC (4.60-5.80) X10*6/uL Hgb (14.0-18.0) g/dl Hct (42.0-52.0) % MCV (80.0-98.0) fL MCH (27.0-33.0) pg MCHC (31.0-36.0) g/dl RDW (11.0-16.0) % Plt Count (160-400) X10*3/uL MPV (9.4-12.4) fL Immature Gran % (Auto) (0.0-0.4) % Neut % (Auto) (45-73) % Lymph % (Auto) (20-40) % [place] % (Auto) (2-11) % Eos % (Auto) (0-4) % Baso % (Auto) (0-2) % Lymph # (Auto) (1.2-4.9) X10*3/uL [place] # (Auto) (0.1-1.2) X10*3/uL Eos # (Auto) (0.0-0.4) X10*3/uL Baso # (Auto) (0.0-0.2) X10*3/uL Abs Immat Gran (auto) (0.00-0.03) X10*3/uL Absolute Neuts (auto) (2.0-8.3) x10*3/uL Absolute Nucleated RBC (0.0-0.012) X10*3/uL Nucleated RBC % (auto) (0.0-0.2) /100WBC PT (10.0-13.1) SEC INR (0.9-1.1) Sodium 132 L (135-145) mmol/L Potassium 4.6 (3.3-5.1) mmol/L Chloride 97 (96-108) mmol/L Carbon Dioxide 22 (22-29) mmol/L Anion Gap 18 (12-20) BUN 11 (9-16) mg/dL Creatinine 1.31 (0.5-1.4) mg/dL Estim Creat Clear Calc 65.9 Estimated GFR 58 Random Glucose 314 H (60-115) mg/dL Lactic Acid (0.5-2.0) mmol/L Calcium 8.4 (8.4-10.2) mg/dL Total Bilirubin 0.5 (0.0-1.0) mg/dL Direct Bilirubin 0.3 (0.0-0.5) mg/dL AST 12 (5-37) U/L ALT 12 (0-40) U/L Alkaline Phosphatase 110 (39-117) U/L Troponin I High Sens (<3.5-35.0) ng/L Total Protein 7.2 (6.5-8.0) g/dL Albumin 3.2 L (3.5-5.0) g/dL Stool Occult Blood (NEGATIVE) COVID-19 ([facility]IA) Negative (Negative) COVID-19 Clin Com See Note Blood Type A Positive Antibody Screen NEGATIVE Crossmatch See Detail 05/21/22 05/21/22 05/21/22 Range/Units 15:49 15:50 15:50 WBC 16.3 H (4.8-10.8) X10*3/uL RBC 2.75 L (4.60-5.80) X10*6/uL Hgb 6.8 L* (14.0-18.0) g/dl Hct 21.3 L (42.0-52.0) % MCV 77.5 L (80.0-98.0) fL MCH 24.7 L (27.0-33.0) pg MCHC 31.9 (31.0-36.0) g/dl RDW 15.5 (11.0-16.0) % Plt Count 643 H (160-400) X10*3/uL MPV 9.2 L (9.4-12.4) fL Immature Gran % (Auto) 0.7 H (0.0-0.4) % Neut % (Auto) 84.1 H (45-73) % Lymph % (Auto) 6.5 L (20-40) % [place] % (Auto) 7.0 (2-11) % Eos % (Auto) 1.3 (0-4) % Baso % (Auto) 0.4 (0-2) % Lymph # (Auto) 1.1 L (1.2-4.9) X10*3/uL [place] # (Auto) 1.1 (0.1-1.2) X10*3/uL Eos # (Auto) 0.2 (0.0-0.4) X10*3/uL Baso # (Auto) 0.1 (0.0-0.2) X10*3/uL Abs Immat Gran (auto) 0.11 H (0.00-0.03) X10*3/uL Absolute Neuts (auto) 13.7 H (2.0-8.3) x10*3/uL Absolute Nucleated RBC 0.000 (0.0-0.012) X10*3/uL Nucleated RBC % (auto) 0.0 (0.0-0.2) /100WBC PT 14.9 H (10.0-13.1) SEC INR 1.3 H (0.9-1.1) Sodium (135-145) mmol/L Potassium (3.3-5.1) mmol/L Chloride (96-108) mmol/L Carbon Dioxide (22-29) mmol/L Anion Gap (12-20) BUN (9-16) mg/dL Creatinine (0.5-1.4) mg/dL Estim Creat Clear Calc Estimated GFR Random Glucose (60-115) mg/dL Lactic Acid (0.5-2.0) mmol/L Calcium (8.4-10.2) mg/dL Total Bilirubin (0.0-1.0) mg/dL Direct Bilirubin (0.0-0.5) mg/dL AST (5-37) U/L ALT (0-40) U/L Alkaline Phosphatase (39-117) U/L Troponin I High Sens 18.0 (<3.5-35.0) ng/L Total Protein (6.5-8.0) g/dL Albumin (3.5-5.0) g/dL Stool Occult Blood (NEGATIVE) COVID-19 ([facility]IA) (Negative) COVID-19 Clin Com Blood Type Antibody Screen Crossmatch 05/21/22 05/21/22 05/21/22 Range/Units 15:50 17:32 17:32 WBC (4.8-10.8) X10*3/uL RBC (4.60-5.80) X10*6/uL Hgb (14.0-18.0) g/dl Hct (42.0-52.0) % MCV (80.0-98.0) fL MCH (27.0-33.0) pg MCHC (31.0-36.0) g/dl RDW (11.0-16.0) % Plt Count (160-400) X10*3/uL MPV (9.4-12.4) fL Immature Gran % (Auto) (0.0-0.4) % Neut % (Auto) (45-73) % Lymph % (Auto) (20-40) % [place] % (Auto) (2-11) % Eos % (Auto) (0-4) % Baso % (Auto) (0-2) % Lymph # (Auto) (1.2-4.9) X10*3/uL [place] # (Auto) (0.1-1.2) X10*3/uL Eos # (Auto) (0.0-0.4) X10*3/uL Baso # (Auto) (0.0-0.2) X10*3/uL Abs Immat Gran (auto) (0.00-0.03) X10*3/uL Absolute Neuts (auto) (2.0-8.3) x10*3/uL Absolute Nucleated RBC (0.0-0.012) X10*3/uL Nucleated RBC % (auto) (0.0-0.2) /100WBC PT 14.7 H (10.0-13.1) SEC INR 1.3 H (0.9-1.1) Sodium (135-145) mmol/L Potassium (3.3-5.1) mmol/L Chloride (96-108) mmol/L Carbon Dioxide (22-29) mmol/L Anion Gap (12-20) BUN (9-16) mg/dL Creatinine (0.5-1.4) mg/dL Estim Creat Clear Calc Estimated GFR Random Glucose (60-115) mg/dL Lactic Acid 1.0 (0.5-2.0) mmol/L Calcium (8.4-10.2) mg/dL Total Bilirubin (0.0-1.0) mg/dL Direct Bilirubin (0.0-0.5) mg/dL AST (5-37) U/L ALT (0-40) U/L Alkaline Phosphatase (39-117) U/L Troponin I High Sens (<3.5-35.0) ng/L Total Protein (6.5-8.0) g/dL Albumin (3.5-5.0) g/dL Stool Occult Blood NEGATIVE (NEGATIVE) COVID-19 ([facility]) (Negative) COVID-19 Clin Com Blood Type Antibody Screen Crossmatch Critical Care Time Critical Care Time Critical Care Time: Yes Total Critical Care Time: 45 Attestation: I attest to this time spent taking care of the patient, obtaining history, physical, reviewing labs, imaging, speaking to my attending Discharge Plan Discharge Clinical Impression: Osteomyelitis, Anemia, Hemoptysis, Cellulitis Patient Disposition: Admitted As Inpatient
[2022-05-21 17:47] LABS: INTERNATIONAL NORM RATIO 1.3 (0.9-1.1); OBS Int Ctl Valid YES; OBS1 NEGATIVE (NEGATIVE); Prothrombin Time 14.7 SEC (10.0-13.1)
[2022-05-21] MEDS: 0.9 % Sodium Chloride 2,449.41 ML 2449.41 ML IV (17:57)
[2022-05-21] MEDS: Piperacillin Sodium/Tazobactam 3.375 GM in 0.9 % Sodium Chloride 50 ML IV ×2 (18:01→23:50)
--- NOTE | 2022-05-21 18:14 | PHA.MEDREC ---
Pharmacy Consult ? Medication Reconciliation Pharmacy has completed the medication reconciliation. Went to speak to patient. Patient stated I don't know, call [facility] [place], whatever is there is what I take . Patient was not cooperative at time of interview. Spoke to [facility] and confirmed list. There was some maintenance meds that the patient hasn't picked up since October. This includes; aspirin, atorvastatin, insulin glargine, and trulicity.
[2022-05-21] MEDS: iohexoL 350 MG/ML 100 ML INFUS..BTL IV (18:29)
--- NOTE | 2022-05-21 18:44 | PC.NURSE ---
1U PRBC started, pt tolerating well, vss, no adverse reactions noted at 15 min marker.
--- NOTE | 2022-05-21 19:27 | PC.NURSE ---
pt drowsy, oriented x 3, 1U PRBC transfusing, vss, 1st L of NaCL tranfused, 2nd L hanging.
--- NOTE | 2022-05-21 19:45 | PM.IMHP ---
History of Present Illness Date of Service: 05/21/22 Chief Complaint: Nonhealing wound This is a 51-year-old male with past medical history of diabetes, history of osteomyelitis, PAD, chronic anemia who presents to the hospital with complaints of nonhealing wound on the right leg. Patient reports that he was at the wound clinic today and he was asked to present himself to the hospital for further evaluation of the wound. Patient is somnolent but is arousable and answers questions appropriately. He reports that he is extremely fatigued and tired, sleepy, reports no fever but has chills, reports no pain but drainage from his right foot, he has noticed swelling that worsened over the past 1 week, the drainage is clear serosanguineous. Patient denies any chest pain, no headache or change in vision, no abdominal pain nausea or vomiting, no diarrhea constipation, no urinary symptoms. Patient's apparently also reported to the ED PA that patient has been having intermittent episodes of coughing of blood, patient adamantly denies this. He also adamantly denies IV drug use. On arrival to the ED patient found to have a temp of 99.2 degrees, heart rate of 101, otherwise hemodynamically stable Labs are significant for WBC count of 16.3, hemoglobin of 6.8 with a baseline of around 8, hematocrit of 21.3, sodium of 132, glucose of 314, III 0.2, Right foot x-ray shows destructive changes at the 2nd metatarsophalangeal joint, concerning for osteomyelitis Chest CT shows a few mildly enlarged mediastinal lymph nodes that are non nonspecific Patient started on IV antibiotics and will be admitted for further management Review of Systems Review of Systems: Yes all other systems are reviewed and are negative [facility]LY [facility] Medical History (Updated 05/22/22 @ 00:14 by Ryan Zuluaga MD) Anemia Anemia of chronic disease Bacteremia Diabetes Diabetic foot ulcer Diabetic foot ulcer Gangrene of toe of left foot GERD (gastroesophageal reflux disease) History of angiography Open wound Orthostatic hypotension PAD (peripheral artery disease) Peripheral vascular disease PICC (peripherally inserted central catheter) in place Family History Other Diabetes Surgical History Amputated toe of right foot (11/05/20) Social History Household Members: Spouse Housing: Apartment Do you presently have visiting nurse or other home services: No Alcohol intake: current Alcohol intake frequency: a few times a month Patient Tobacco Use Status: Former Tobacco user Tobacco use type: Cigarette Years Smoked: 15 e-Cigarette/Vaping Use: Never Used Second Hand Smoke Exposure: No Use of substances other than those prescribed or required for medical reasons: No Advance Directives: No Advance Directives Information Provided: No service: No Current occupational status: unemployed Meds Allergies Allergy/AdvReac Type Severity Reaction Status Date / Time No Known Allergies Allergy Verified 03/04/22 13:01 Active Medications: Current Medications Pharmacy Consult (Consult Rx Perform Med Rec) 1 each MISCELLANE ONCE PRN PRN Reason: Consult order Home Medications Medication Instructions Recorded Confirmed Last Taken Type blood sugar diagnostic #10 ea 11/20/20 12/12/21 Unknown History pen needle, diabetic 32 gauge x #50 ea 11/20/20 12/12/21 Unknown History atorvastatin 40 mg tablet 1 tab PO DAILY 05/21/22 05/21/22 Unknown History insulin glargine 100 unit/mL (3 20 unit subcut BID 05/21/22 05/21/22 Unknown History mL) subcutaneous pen (Basaglar KwikPen U-100 Insulin) Physical Exam Vital Signs and Narrative: Vital Signs: Last Vital Signs Temp 98.7 F 05/21/22 18:37 Pulse 102 H 05/21/22 18:37 Resp 20 05/21/22 18:37 BP 132/94 H 05/21/22 18:37 Pulse Ox 94 05/21/22 17:55 O2 Del Method 05/21/22 17:55 BMI result Body Mass Index 27.3 Const: Other: Patient is somnolent but arousable General: cooperative and no acute distress Eyes: General: appearance normal, both eyes and all related structures Resp: Effort & Inspection: normal respiratory effort Auscultation: clear to auscultation bilaterally Cardio: Rate: regular rate Rhythm: regular rhythm GI: Palpation (GI): Soft to palpation Auscultation: normal bowel sounds Skin: General skin exam: no rashes or lesions noted Neuro: Cognition (Neuro): normal cognition Extrem: Other: Amputated right foot, wound at the base appears clean and healing, left foot swollen, has a wound at the 2nd and 3rd toes, there is serosanguineous drainage just below the 2nd toe Results Labs CBC and Chem 7: 05/21/22 15:50 05/21/22 15:49 Labs: Laboratory Results - last 24 hr 05/21/22 05/21/22 05/21/22 15:48 15:49 15:49 MCV MCH MCHC RDW Plt Count MPV Immature Gran % (Auto) Neut % (Auto) Lymph % (Auto) [place] % (Auto) Eos % (Auto) Baso % (Auto) Lymph # (Auto) [place] # (Auto) Eos # (Auto) Baso # (Auto) Abs Immat Gran (auto) Absolute Neuts (auto) Absolute Nucleated RBC Nucleated RBC % (auto) PT INR Anion Gap 18 Estim Creat Clear Calc 65.9 Estimated GFR 58 Random Glucose 314 H Lactic Acid Calcium 8.4 Total Bilirubin 0.5 Direct Bilirubin 0.3 AST 12 ALT 12 Alkaline Phosphatase 110 Total Protein 7.2 Albumin 3.2 L Stool Occult Blood COVID-19 ([facility]) Negative COVID-[employer] Com See Note Blood Type A Positive Antibody Screen NEGATIVE Crossmatch See Detail 05/21/22 05/21/22 05/21/22 15:49 15:50 15:50 MCV 77.5 L MCH 24.7 L MCHC 31.9 RDW 15.5 Plt Count 643 H MPV 9.2 L Immature Gran % (Auto) 0.7 H Neut % (Auto) 84.1 H Lymph % (Auto) 6.5 L [place] % (Auto) 7.0 Eos % (Auto) 1.3 Baso % (Auto) 0.4 Lymph # (Auto) 1.1 L [place] # (Auto) 1.1 Eos # (Auto) 0.2 Baso # (Auto) 0.1 Abs Immat Gran (auto) 0.11 H Absolute Neuts (auto) 13.7 H Absolute Nucleated RBC 0.000 Nucleated RBC % (auto) 0.0 PT 14.9 H INR 1.3 H Anion Gap Estim Creat Clear Calc Estimated GFR Random Glucose Lactic Acid 1.0 Calcium Total Bilirubin Direct Bilirubin AST ALT Alkaline Phosphatase Total Protein Albumin Stool Occult Blood COVID-19 ([facility]IA) COVID-[employer] Clin Com Blood Type Antibody Screen Crossmatch 05/21/22 05/21/22 17:32 17:32 MCV MCH MCHC RDW Plt Count MPV Immature Gran % (Auto) Neut % (Auto) Lymph % (Auto) [place] % (Auto) Eos % (Auto) Baso % (Auto) Lymph # (Auto) [place] # (Auto) Eos # (Auto) Baso # (Auto) Abs Immat Gran (auto) Absolute Neuts (auto) Absolute Nucleated RBC Nucleated RBC % (auto) PT 14.7 H INR 1.3 H Anion Gap Estim Creat Clear Calc Estimated GFR Random Glucose Lactic Acid Calcium Total Bilirubin Direct Bilirubin AST ALT Alkaline Phosphatase Total Protein Albumin Stool Occult Blood NEGATIVE COVID-19 ([facility]IA) COVID-19 Clin Com Blood Type Antibody Screen Crossmatch Imaging Radiologist's Impressions: Impressions Chest X-Ray 05/21/22 16:04 IMPRESSION: Clear lungs. Foot X-Ray 05/21/22 16:04 IMPRESSION: Destructive changes at the second metatarsophalangeal joint, concerning for osteomyelitis with lucency and erosion. Likely associated fracture at the base of the proximal phalanx. Chest CT 05/21/22 18:39 IMPRESSION: -A few mildly enlarged mediastinal lymph nodes are noted, nonspecific. -Tiny bilateral pleural effusions. Fleischner guidelines were followed. Assessment and Plan (1) Osteomyelitis: Status: Acute (2) Diabetic foot ulcer: Qualifiers: Diabetes mellitus type: type 1 Diabetic foot ulcer location: midfoot Laterality: right Non-pressure ulcer stage: unspecified non-pressure ulcer stage Qualified Code(s): E10.621 - Type 1 diabetes mellitus with foot ulcer; L97.419 - Non-pressure chronic ulcer of right heel and midfoot with unspecified severity Status: Acute Plan 51-year-old male with past medical history of diabetes, with apparent noncompliant with his insulin presents to the hospital with diabetic foot ulcer # diabetic foot wound - has a wound at the base of 2nd and 3rd toes of the right foot - draining, edematous, warm - x-ray shows evidence of osteomyelitis - will treat with IV antibiotics - consult infectious diseases well as surgical team # osteomyelitis - in the setting of poorly controlled diabetes - will treat with IV antibiotics - follow cultures - infectious disease consult # diabetes - appears to be noncompliant as his last insulin glargine was picked up in October - this time resume his home insulin including glargine - low-dose sliding scale insulin - diabetic diet # hypertension - continue home antihypertensives # history of PAD, angiography - likely reason for apixaban - will continue DVT prophylaxis: Apixaban Given IC myelitis and need for IV antibiotics patient will require minimum 2 night hospital stay for further management and monitoring Quality Stroke Does the patient have a stroke diagnosis?: No VTE Prior VTE?: No VTE Risk Level:: Medical - moderate - high VTE Device Contraindication: Treatment Not Indicated VTE Drug Contraindication: N/A - Med Ordered
[2022-05-21] MEDS: Ferrous Sulfate 324 MG TABLET.DR PO (21:00)
[2022-05-21] MEDS: Insulin Lispro 100 UNIT/ML 3 ML VIAL SUBCUT (21:00)
[2022-05-21] MEDS: Apixaban 5 MG TABLET PO (21:00)
--- NOTE | 2022-05-21 21:12 | PC.NURSE ---
pt a&ox3, vss, asking for food/water - pt NPO at midnight, medicated per provider order - per hospitalist hold all insulin except for sliding scale.
[2022-05-21 21:15] LABS: Ferritin 43 ng/mL (20-250)
[2022-05-21 21:27] LABS: Folate 12.6 ng/mL (> or = 4.0); Vitamin B12 929 pg/mL (200-900)
[2022-05-21] MEDS: 0.9 % Sodium Chloride 1,000 ML 100 ML IVCONT (23:06)
--- NOTE | 2022-05-21 23:09 | PC.NURSE ---
pt initial NaCl bolus complete, new bag running at 100ml/hr per provider order.
[2022-05-21 23:31] LABS: Glucose, Whole Blood 220 mg/dL (60-115)
[2022-05-22] VITALS (7 sets, daily range): BP systolic 136–177; BP diastolic 69–97; PULSE 90–107; RESP 16–24; TEMP 36.6–37.5; O2SAT 92–99
[2022-05-22] MEDS: Piperacillin Sodium/Tazobactam 3.375 GM in 0.9 % Sodium Chloride 50 ML IV ×4 (06:30→23:44)
[2022-05-22 07:01] LABS: MANUAL DIFF FLAG NO
[2022-05-22 07:08] LABS: Basophils Absolute Auto 0.1 X10*3/uL (0.0-0.2); Basophils Percent Auto 0.5 % (0-2); Eosinophils Absolute Auto 0.2 X10*3/uL (0.0-0.4); Eosinophils Percent Auto 2.1 % (0-4); Hematocrit 21.6 % (42.0-52.0); Imm Gran Abs Auto 0.06 X10*3/uL (0.00-0.03); Imm Gran Pct Auto 0.6 % (0.0-0.4); Lymphocytes Absolute Auto 1.7 X10*3/uL (1.2-4.9); Lymphocytes Percent Auto 15.4 % (20-40); Mean Corpuscular HGB Conc 31.5 g/dl (31.0-36.0); Mean Corpuscular Hemoglobin 25.1 pg (27.0-33.0); Mean Corpuscular Volume 79.7 fL (80.0-98.0); Mean Platelet Volume 9.3 fL (9.4-12.4); Monocytes Absolute Auto 1.2 X10*3/uL (0.1-1.2); Monocytes Percent Auto 11.3 % (2-11); Neutrophils Absolute Auto 7.5 x10*3/uL (2.0-8.3); Neutrophils Percent Auto 70.1 % (45-73); Platelet Count 550 X10*3/uL (160-400); Red Blood Count 2.71 X10*6/uL (4.60-5.80); White Blood Count 10.8 X10*3/uL (4.8-10.8)
[2022-05-22 07:17] LABS: Glucose, Whole Blood 237 mg/dL (60-115)
[2022-05-22 07:24] LABS: Anion Gap 12 (12-20); Blood Urea Nitrogen 10 mg/dL (9-16); Carbon Dioxide 20 mmol/L (22-29); Chloride 106 mmol/L (96-108); Creatinine Clr Calc Pharmacy 87.3; Estimated Glomerular Filt Rate > 60; Glucose Random 244 mg/dL (60-115); Potassium 4.4 mmol/L (3.3-5.1); Sodium 134 mmol/L (135-145)
[2022-05-22 07:26] LABS: Hemoglobin 6.8 g/dl (14.0-18.0)
[2022-05-22 07:33] LABS: Calcium 7.5 mg/dL (8.4-10.2)
[2022-05-22] MEDS: vancomycin HCL 1,000 MG in 0.9 % Sodium Chloride 250 ML 270 MG IV ×2 (08:13→19:45)
[2022-05-22] MEDS: Atorvastatin Calcium 40 MG TABLET PO (08:15)
[2022-05-22] MEDS: Insulin Glargine,Hum.rec.anlog 100 UNIT/ML 10 ML VIAL 20 UNIT SUBCUT ×2 (08:16→20:25)
[2022-05-22] MEDS: amLODIPine Besylate 10 MG TABLET PO (08:16)
[2022-05-22] MEDS: lisinopriL 20 MG TABLET PO (08:16)
[2022-05-22] MEDS: Ferrous Sulfate 324 MG TABLET.DR PO ×2 (08:16→21:19)
[2022-05-22 08:37] LABS: Iron 30 mcg/dL (45-160); Percent Iron Saturation 12 % (15-50); Total Iron Binding Capacity 245 mcg/dL (228-428); Unsaturated Iron Binding 215 ug/dL
[2022-05-22] MEDS: 0.9 % Sodium Chloride 1,000 ML 100 ML IVCONT (10:34)
--- NOTE | 2022-05-22 11:41 | HO.PM.IMPN ---
Subjective Subjective Date of Service: 05/22/22 Interval History: the patient was seen and evaluated this morning Laying in bed, feels comfortable overall Complaining of right foot pain and drainage Denies any fever, chills or shortness of breath No reported other overnight events. Systemic review: No fever, chills or weakness No chest pain, palpitation No shortness of breath or coughing No abdominal pain, nausea or vomiting No urinary symptoms Open wound at the base of his right foot Physical Exam Vital Signs: Vital Signs: Last Vital Signs Temp 98.6 F 05/22/22 07:06 Pulse 90 05/22/22 09:09 Resp 16 05/22/22 09:09 BP 148/85 H 05/22/22 09:09 Pulse Ox 96 05/22/22 09:09 O2 Del Method Simple Mask 05/22/22 09:09 O2 Flow Rate 2 05/22/22 07:06 BMI result Body Mass Index 27.3 Const: Other: Constitutional : Alert, oriented, not in distress Neck : Normal inspection, Supple Cardiovascular : RRR, no JVP, no lower extremity edema Respiratory : fair bilateral air entry, no crackles, wheezes or rhonchi Gastrointestinal: soft, lax, Normal bowel sounds, Non tender Skin : Warm, Dry Musculoskeletal, transmetatarsal amputation of left foot, right 2nd toe erythema with open wound at the base of it Neurological : Alert & oriented x3, No focal deficit , CN 2-12 within normal Objective Data Active Medications Acetaminophen (Acetaminophen 325 Mg Tablet) 650 mg PO Q6H PRN PRN Reason: Pain, Mild (Pain Scale 1-3) Amlodipine Besylate (Amlodipine Besylate 10 Mg Tablet) 10 mg PO DAILY [facility]; Protocol Last Admin: 05/22/22 08:16 Dose: 10 mg Documented By: CYNTHIA Apixaban (Apixaban 5 Mg Tablet) 5 mg PO BID [facility] Last Admin: 05/21/22 21:00 Dose: 5 mg Documented By: ISABELLA Atorvastatin Calcium (Atorvastatin Calcium 40 Mg Tablet) 40 mg PO DAILY [facility] Last Admin: 05/22/22 08:15 Dose: 40 mg Documented By: CYNTHIA Dextrose (Dextrose 50 % 25 Gm/50 Ml Syringe) 25 gm IVPUSH Q15M PRN; Protocol PRN Reason: per Hypoglycemia Standing Ord. Docusate Sodium (Docusate Sodium 100 Mg Capsule) 100 mg PO DAILY PRN PRN Reason: Constipation Ferrous Sulfate (Ferrous Sulfate 324 Mg Tablet.) 324 mg PO BID [facility] Last Admin: 05/22/22 08:16 Dose: 324 mg Documented By: CYNTHIA Glucose (Glucose Gel 15 Gm Gel..Gram.) 15 gm PO Q15M PRN; Protocol PRN Reason: per Hypoglycemia Standing Ord. Piperacillin Sod/Tazobactam (Sod 3.375 gm/ Sodium Chloride) 50 mls @ 100 mls/hr IV Q6H [facility] Last Infusion: 05/22/22 08:06 Dose: 0 mls/hr Documented By: CYNTHIA Sodium Chloride (Ns) 1,000 mls @ 100 mls/hr IVCONT .Q10H [facility] Last Admin: 05/22/22 10:34 Dose: 100 mls/hr Documented By: MADINA Vancomycin HCl 1,000 mg/ (Sodium Chloride) 270 mls @ 270 mls/hr IV Q12H [facility] Last Infusion: 05/22/22 10:33 Dose: 0 mls/hr Documented By: MADINA Insulin Glargine (Insulin Glargine,Hum.Rec.Anlog 100 Unit/Ml 10 Ml Vial) 20 unit SUBCUT BID [facility] Last Admin: 05/22/22 08:16 Dose: 20 unit Documented By: CYNTHIA Insulin Human Lispro (Insulin Lispro 100 Unit/Ml 3 Ml Vial) 4 unit SUBCUT TID [facility] Last Admin: 05/22/22 08:06 Dose: Not Given Documented By: CYNTHIA Non-Admin Reason: NPO Insulin Human Lispro (Insulin Lispro 100 Unit/Ml 3 Ml Vial) 0 unit SUBCUT QIDACHS [facility]; Protocol Last Admin: 05/22/22 08:06 Dose: Not Given Documented By: CYNTHIA Non-Admin Reason: NPO Lisinopril (Lisinopril 20 Mg Tablet) 20 mg PO DAILY [facility]; Protocol Last Admin: 05/22/22 08:16 Dose: 20 mg Documented By: CYNTHIA Omeprazole (Omeprazole 40 Mg Capsule.) 40 mg PO DAILY@0630 [facility] Last Admin: 05/22/22 06:30 Dose: Not Given Documented By: FEDE Non-Admin Reason: NPO Ondansetron HCl (Ondansetron Hcl 4 Mg/2 Ml Vial) 4 mg IVPUSH Q8H PRN PRN Reason: Nausea and Vomiting Oxycodone HCl (Oxycodone Hcl Immed Release 5 Mg Tablet) 5 mg PO Q6H PRN PRN Reason: Pain, Severe (Pain Scale 7-10) Pharmacy Consult (Consult Rx Perform Med Rec) 1 each MISCELLANE ONCE PRN PRN Reason: Consult order Pharmacy Consult (Consult Rx Vancomycin Dosing) 1 each MISCELLANE DAILY PRN PRN Reason: Consult order Sodium Chloride (0.9 % Sodium Chloride Flush 3 Ml Syringe) 3 ml IVFLUSH QSHIFT CAIT Last Admin: 05/22/22 08:06 Dose: Not Given Documented By: CYNTHIA Non-Admin Reason: IV Running Labs CBC & Chem 7: 05/22/22 06:32 05/22/22 06:32 Labs: Laboratory Results - last 24 hr 05/21/22 05/21/22 05/21/22 15:48 15:49 15:49 MCV MCH MCHC RDW Plt Count MPV Immature Gran % (Auto) Neut % (Auto) Lymph % (Auto) Ford % (Auto) Eos % (Auto) Baso % (Auto) Lymph # (Auto) Ford # (Auto) Eos # (Auto) Baso # (Auto) Abs Immat Gran (auto) Absolute Neuts (auto) Absolute Nucleated RBC Nucleated RBC % (auto) PT INR Anion Gap 18 Estim Creat Clear Calc 65.9 Estimated GFR 58 POC Glucose Random Glucose 314 H Lactic Acid Calcium 8.4 Iron TIBC % Saturation Unsat Iron Binding Ferritin Total Bilirubin 0.5 Direct Bilirubin 0.3 AST 12 ALT 12 Alkaline Phosphatase 110 Total Protein 7.2 Albumin 3.2 L Vitamin B12 Folate Stool Occult Blood COVID-19 (DELIA) Negative COVID-19 Clin Com See Note Blood Type A Positive Antibody Screen NEGATIVE Crossmatch See Detail 05/21/22 05/21/22 05/21/22 15:49 15:50 15:50 MCV 77.5 L MCH 24.7 L MCHC 31.9 RDW 15.5 Plt Count 643 H MPV 9.2 L Immature Gran % (Auto) 0.7 H Neut % (Auto) 84.1 H Lymph % (Auto) 6.5 L Ford % (Auto) 7.0 Eos % (Auto) 1.3 Baso % (Auto) 0.4 Lymph # (Auto) 1.1 L Ford # (Auto) 1.1 Eos # (Auto) 0.2 Baso # (Auto) 0.1 Abs Immat Gran (auto) 0.11 H Absolute Neuts (auto) 13.7 H Absolute Nucleated RBC 0.000 Nucleated RBC % (auto) 0.0 PT 14.9 H INR 1.3 H Anion Gap Estim Creat Clear Calc Estimated GFR POC Glucose Random Glucose Lactic Acid 1.0 Calcium Iron TIBC % Saturation Unsat Iron Binding Ferritin Total Bilirubin Direct Bilirubin AST ALT Alkaline Phosphatase Total Protein Albumin Vitamin B12 Folate Stool Occult Blood COVID-19 (DELIA) COVID-19 [facility] Com Blood Type Antibody Screen Crossmatch 05/21/22 05/21/22 05/21/22 17:32 17:32 20:11 MCV MCH MCHC RDW Plt Count MPV Immature Gran % (Auto) Neut % (Auto) Lymph % (Auto) Ford % (Auto) Eos % (Auto) Baso % (Auto) Lymph # (Auto) Ford # (Auto) Eos # (Auto) Baso # (Auto) Abs Immat Gran (auto) Absolute Neuts (auto) Absolute Nucleated RBC Nucleated RBC % (auto) PT 14.7 H INR 1.3 H Anion Gap Estim Creat Clear Calc Estimated GFR POC Glucose Random Glucose Lactic Acid Calcium Iron TIBC % Saturation Unsat Iron Binding Ferritin 43 Total Bilirubin Direct Bilirubin AST ALT Alkaline Phosphatase Total Protein Albumin Vitamin B12 Folate Stool Occult Blood NEGATIVE COVID-19 (DELIA) COVID-19 [facility] Blood Type Antibody Screen Crossmatch 05/21/22 05/21/22 05/22/22 20:11 20:45 06:32 MCV 79.7 L MCH 25.1 L MCHC 31.5 RDW 16.0 Plt Count 550 H MPV 9.3 L Immature Gran % (Auto) 0.6 H Neut % (Auto) 70.1 Lymph % (Auto) 15.4 L Ford % (Auto) 11.3 H Eos % (Auto) 2.1 Baso % (Auto) 0.5 Lymph # (Auto) 1.7 Ford # (Auto) 1.2 Eos # (Auto) 0.2 Baso # (Auto) 0.1 Abs Immat Gran (auto) 0.06 H Absolute Neuts (auto) 7.5 Absolute Nucleated RBC 0.000 Nucleated RBC % (auto) 0.0 PT INR Anion Gap Estim Creat Clear Calc Estimated GFR POC Glucose 220 H Random Glucose Lactic Acid Calcium Iron TIBC % Saturation Unsat Iron Binding Ferritin Total Bilirubin Direct Bilirubin AST ALT Alkaline Phosphatase Total Protein Albumin Vitamin B12 929 H Folate 12.6 Stool Occult Blood COVID-19 (DELIA) COVID-19 [facility] Com Blood Type Antibody Screen Crossmatch 05/22/22 05/22/22 06:32 07:04 MCV MCH MCHC RDW Plt Count MPV Immature Gran % (Auto) Neut % (Auto) Lymph % (Auto) Ford % (Auto) Eos % (Auto) Baso % (Auto) Lymph # (Auto) Ford # (Auto) Eos # (Auto) Baso # (Auto) Abs Immat Gran (auto) Absolute Neuts (auto) Absolute Nucleated RBC Nucleated RBC % (auto) PT INR Anion Gap 12 Estim Creat Clear Calc 87.3 Estimated GFR > 60 POC Glucose 237 H Random Glucose 244 H Lactic Acid Calcium 7.5 L D Iron 30 L TIBC 245 % Saturation 12 L Unsat Iron Binding 215 Ferritin Total Bilirubin Direct Bilirubin AST ALT Alkaline Phosphatase Total Protein Albumin Vitamin B12 Folate Stool Occult Blood COVID-19 (DELIA) COVID-19 [facility] Blood Type Antibody Screen Crossmatch Assessment and Plan (1) Diabetic foot ulcer: Status: Acute (2) Osteomyelitis: Status: Acute (3) Anemia: Status: Acute Plan 51-year-old male with past medical history of diabetes, with apparent noncompliant with his insulin presents to the hospital with diabetic foot ulcer # Right diabetic foot wound wound at the base of 2nd and 3rd toes of the right foot x-ray shows evidence of osteomyelitis IV antibiotics pending surgical team consult # Right 2nd toe base osteomyelitis in the setting of poorly controlled diabetes continue IV antibiotics pending cultures infectious disease consult # diabetes appears to be noncompliant as his last insulin glargine was picked up in October check HbA1c start insulin glargine low-dose sliding scale insulin diabetic diet # Acute on chronic anemia No evidence of blood loss , negative occult blood Iron deficiency per iron studies continue oral iron, increase to b.i.d. On need outpatient evaluation with upper and lower endoscopies # hypertension continue home antihypertensives # history of PAD, angiography on apixaban DVT prophylaxis Apixaban Given osteomyelitis and need for IV antibiotics patient will require overnight hospital stay for further management to prevent possible decompensation to sepsis Quality Stroke Does the patient have a stroke diagnosis?: No VTE Prior VTE?: No VTE Risk Level:: Medical - moderate - high VTE Device Contraindication: Treatment Not Indicated VTE Drug Contraindication: N/A - Med Ordered
[2022-05-22 12:04] LABS: Estimated Average Glucose 252 mg/dL; Hemoglobin A1c % 10.4 %
[2022-05-22 12:40] LABS: Glucose, Whole Blood 292 mg/dL (60-115)
[2022-05-22] MEDS: Insulin Lispro 100 UNIT/ML 3 ML VIAL SUBCUT ×5 (12:58→20:24)
[2022-05-22] MEDS: Apixaban 5 MG TABLET PO ×2 (12:59→21:19)
--- NOTE | 2022-05-22 13:38 | PC.NURSE ---
Patient arrived to Overflow Bed 5 @ 0900. Denies pain. Right foot with open area second toe. Draining serosanguinos. Nonadhereant and DSD applied. Redness noted to top of foot. +1 Edema to B/L feet. Transmetatarsal amp to left foot. H&H 6.8/21.6. REported to Dr. Sandoval. No new orders.
--- NOTE | 2022-05-22 13:51 | MHC.CM.PN ---
PT REPORTS HE LIVES WITH HIS S/O AND IS INDEPENDENT WITH CARE PT DENIES USE OF DME OR HOME SERVICES [employer] PT DENIES HAVING A HCP AND DECLINES TO COMPLETE ONE PT IS NOT COVID VACCINATED PCP: [facility] NORIEGA PT REPORTS HE HAS HAD IV MEDS AT HOME IN THE PAST AND HE FEELS COMFORTABLE WITH THAT PLAN REFERRALS MADE TO [facility] DCP PENDING [facility] ACCEPTANCE HOME WITH [facility] VS STR
[2022-05-22 16:42] LABS: Glucose, Whole Blood 299 mg/dL (60-115)
--- NOTE | 2022-05-22 17:26 | P.CONGS_ITS ---
History of Present Illness Consult details Consult date: 05/22/22 Narrative: 51-year-old male referred for osteomyelitis of the 2nd toe. He was being [facility] by [facility] because of a chronic wound on a left foot transmetatarsal says amputation site as well as wounds on the right foot as well. He was referred to the ER earlier because of the on the 2nd toe at the base. He has a known diabetic. Has had amputation of the left foot at the transmetatarsal last year and had poor wound healing. However, he had undergone hyperbaric treatment and this has since healed. He does not really know how long he has had this on the 2nd toe. Review of Systems Constitutional: Constitutional: Reports chills and Denies fever(s) Cardiovascular: Cardiovascular: Denies chest pain Gastrointestinal: Gastrointestinal: Denies abdominal pain Genitourinary: Genitourinary: Denies hematuria Neurologic: Denies behavioral changes Psychiatric: Psychiatric: Denies behavioral changes [facility] Past Medical History Medical History Anemia Anemia of chronic disease Bacteremia Diabetes Diabetic foot ulcer Diabetic foot ulcer Gangrene of toe of left foot GERD (gastroesophageal reflux disease) History of angiography Open wound Orthostatic hypotension PAD (peripheral artery disease) Peripheral vascular disease PICC (peripherally inserted central catheter) in place Family History Family History Other Diabetes Surgical History Surgical History Amputated toe of right foot (11/05/20) Social History Social History Household Members: Spouse and Children Housing: Apartment Do you presently have visiting nurse or other home services: No Alcohol intake: current Alcohol intake frequency: a few times a month Patient Tobacco Use Status: Former Tobacco user Tobacco use type: Cigarette Years Smoked: 15 e-Cigarette/Vaping Use: Never Used Second Hand Smoke Exposure: No service: No Current occupational status: unemployed Meds Allergies Allergy/AdvReac Type Severity Reaction Status Date / Time No Known Allergies Allergy Verified 03/04/22 13:01 Active Medications: Current Medications Acetaminophen (Acetaminophen 325 Mg Tablet) 650 mg PO Q6H PRN PRN Reason: Pain, Mild (Pain Scale 1-3) Amlodipine Besylate (Amlodipine Besylate 10 Mg Tablet) 10 mg PO DAILY [facility]; Protocol Last Admin: 05/22/22 08:16 Dose: 10 mg Apixaban (Apixaban 5 Mg Tablet) 5 mg PO BID [facility] Last Admin: 05/22/22 12:59 Dose: 5 mg Atorvastatin Calcium (Atorvastatin Calcium 40 Mg Tablet) 40 mg PO DAILY [facility] Last Admin: 05/22/22 08:15 Dose: 40 mg Dextrose (Dextrose 50 % 25 Gm/50 Ml Syringe) 25 gm IVPUSH Q15M PRN; Protocol PRN Reason: per Hypoglycemia Standing Ord. Docusate Sodium (Docusate Sodium 100 Mg Capsule) 100 mg PO DAILY PRN PRN Reason: Constipation Ferrous Sulfate (Ferrous Sulfate 324 Mg Tablet.Dr) 324 mg PO BID [facility] Last Admin: 05/22/22 08:16 Dose: 324 mg Glucose (Glucose Gel 15 Gm Gel..Gram.) 15 gm PO Q15M PRN; Protocol PRN Reason: per Hypoglycemia Standing Ord. Piperacillin Sod/Tazobactam (Sod 3.375 gm/ Sodium Chloride) 50 mls @ 100 mls/hr IV Q6H [facility] Last Infusion: 05/22/22 16:34 Dose: Infused Sodium Chloride (Ns) 1,000 mls @ 100 mls/hr IVCONT .Q10H [facility] Last Admin: 05/22/22 10:34 Dose: 100 mls/hr Vancomycin HCl 1,000 mg/ (Sodium Chloride) 270 mls @ 270 mls/hr IV Q12H [facility] Last Infusion: 05/22/22 10:33 Dose: Infused Insulin Glargine (Insulin Glargine,Hum.Rec.Anlog 100 Unit/Ml 10 Ml Vial) 20 unit SUBCUT BID [facility] Last Admin: 05/22/22 08:16 Dose: 20 unit Insulin Human Lispro (Insulin Lispro 100 Unit/Ml 3 Ml Vial) 0 unit SUBCUT QIDACHS [facility]; Protocol Last Admin: 05/22/22 16:42 Dose: 6 unit Insulin Human Lispro (Insulin Lispro 100 Unit/Ml 3 Ml Vial) 4 unit SUBCUT QIDACHS [facility] Last Admin: 05/22/22 16:42 Dose: 4 unit Lisinopril (Lisinopril 20 Mg Tablet) 20 mg PO DAILY [facility]; Protocol Last Admin: 05/22/22 08:16 Dose: 20 mg Omeprazole (Omeprazole 40 Mg Capsule.Dr) 40 mg PO DAILY@0630 [facility] Last Admin: 05/22/22 06:30 Dose: Not Given Ondansetron HCl (Ondansetron Hcl 4 Mg/2 Ml Vial) 4 mg IVPUSH Q8H PRN PRN Reason: Nausea and Vomiting Oxycodone HCl (Oxycodone Hcl Immed Release 5 Mg Tablet) 5 mg PO Q6H PRN PRN Reason: Pain, Severe (Pain Scale 7-10) Pharmacy Consult (Consult Rx Perform Med Rec) 1 each MISCELLANE ONCE PRN PRN Reason: Consult order Pharmacy Consult (Consult Rx Vancomycin Dosing) 1 each MISCELLANE DAILY PRN PRN Reason: Consult order Sodium Chloride (0.9 % Sodium Chloride Flush 3 Ml Syringe) 3 ml IVFLUSH QSHIFT [facility] Last Admin: 05/22/22 08:06 Dose: Not Given Home Medications Medication Instructions Recorded Confirmed Last Taken Type blood sugar diagnostic #10 ea 11/20/20 12/12/21 Unknown History pen needle, diabetic 32 gauge x #50 ea 11/20/20 12/12/21 Unknown History atorvastatin 40 mg tablet 1 tab PO DAILY 05/21/22 05/21/22 Unknown History insulin glargine 100 unit/mL (3 20 unit subcut BID 05/21/22 05/21/22 Unknown History mL) subcutaneous pen (Basaglar KwikPen U-100 Insulin) Physical Exam Vital Signs: Vital Signs: Last Vital Signs Temp 97.9 F 05/22/22 16:00 Pulse 107 H 05/22/22 16:00 Resp 18 05/22/22 16:00 BP 177/97 H 05/22/22 16:00 Pulse Ox 97 05/22/22 16:00 O2 Del Method 05/22/22 16:00 O2 Flow Rate 2 05/22/22 07:06 BMI result Body Mass Index 27.3 Const: Other: Answers questions appropriately now General: comfortable and no acute distress Neck: Neck: Yes no lymphadenopathy Resp: Auscultation: clear to auscultation bilaterally Cardio: Rhythm: regular rhythm GI: Palpation (GI): Soft to palpation, nontender and no guarding Extrem: Other: Transmetatarsal amputation foot, well At the base of the 2nd toe on the plantar aspect is note of an open wound with some serosanguineous drainage, with some edema of the 2nd toe no necrosis at this time Results Labs Result diagrams: 05/26/22 05:13 05/26/22 05:13 Labs: Abnormal lab results 05/21/22 05/21/22 05/21/22 Range/Units 15:48 17:32 20:11 RBC (4.60-5.80) X10*6/uL Hgb (14.0-18.0) g/dl Hct (42.0-52.0) % MCV (80.0-98.0) fL MCH (27.0-33.0) pg Plt Count (160-400) X10*3/uL MPV (9.4-12.4) fL Immature Gran % (Auto) (0.0-0.4) % Lymph % (Auto) (20-40) % Stephenson % (Auto) (2-11) % Abs Immat Gran (auto) (0.00-0.03) X10*3/uL PT 14.7 H (10.0-13.1) SEC INR 1.3 H (0.9-1.1) Sodium (135-145) mmol/L Carbon Dioxide (22-29) mmol/L POC Glucose (60-115) mg/dL Random Glucose (60-115) mg/dL Calcium (8.4-10.2) mg/dL Iron (45-160) mcg/dL % Saturation (15-50) % Vitamin B12 929 H (200-900) pg/mL Crossmatch See Detail 05/21/22 05/22/22 05/22/22 Range/Units 20:45 06:32 06:32 RBC 2.71 L (4.60-5.80) X10*6/uL Hgb 6.8 L* (14.0-18.0) g/dl Hct 21.6 L (42.0-52.0) % MCV 79.7 L (80.0-98.0) fL MCH 25.1 L (27.0-33.0) pg Plt Count 550 H (160-400) X10*3/uL MPV 9.3 L (9.4-12.4) fL Immature Gran % (Auto) 0.6 H (0.0-0.4) % Lymph % (Auto) 15.4 L (20-40) % Stephenson % (Auto) 11.3 H (2-11) % Abs Immat Gran (auto) 0.06 H (0.00-0.03) X10*3/uL PT (10.0-13.1) SEC INR (0.9-1.1) Sodium 134 L (135-145) mmol/L Carbon Dioxide 20 L (22-29) mmol/L POC Glucose 220 H (60-115) mg/dL Random Glucose 244 H (60-115) mg/dL Calcium 7.5 L D (8.4-10.2) mg/dL Iron 30 L (45-160) mcg/dL % Saturation 12 L (15-50) % Vitamin B12 (200-900) pg/mL Crossmatch 05/22/22 05/22/22 05/22/22 Range/Units 07:04 12:13 16:37 RBC (4.60-5.80) X10*6/uL Hgb (14.0-18.0) g/dl Hct (42.0-52.0) % MCV (80.0-98.0) fL MCH (27.0-33.0) pg Plt Count (160-400) X10*3/uL MPV (9.4-12.4) fL Immature Gran % (Auto) (0.0-0.4) % Lymph % (Auto) (20-40) % Stephenson % (Auto) (2-11) % Abs Immat Gran (auto) (0.00-0.03) X10*3/uL PT (10.0-13.1) SEC INR (0.9-1.1) Sodium (135-145) mmol/L Carbon Dioxide (22-29) mmol/L POC Glucose 237 H 292 H 299 H (60-115) mg/dL Random Glucose (60-115) mg/dL Calcium (8.4-10.2) mg/dL Iron (45-160) mcg/dL % Saturation (15-50) % Vitamin B12 (200-900) pg/mL Crossmatch Short CBC 05/22/22 Range/Units 06:32 WBC 10.8 (4.8-10.8) X10*3/uL Hgb 6.8 L* (14.0-18.0) g/dl Hct 21.6 L (42.0-52.0) % Plt Count 550 H (160-400) X10*3/uL BMP 05/22/22 06:32 Sodium 134 L Potassium 4.4 Chloride 106 Carbon Dioxide 20 L BUN 10 Creatinine 0.99 Calcium 7.5 L D All other labs normal. Imaging Additional studies: Laboratory Results WBC 10.8 X10*3/uL (4.8-10.8) 05/22/22 06:32 RBC 2.71 X10*6/uL (4.60-5.80) L 05/22/22 06:32 Hgb 6.8 g/dl (14.0-18.0) L* 05/22/22 06:32 Hct 21.6 % (42.0-52.0) L 05/22/22 06:32 MCV 79.7 fL (80.0-98.0) L 05/22/22 06:32 MCH 25.1 pg (27.0-33.0) L 05/22/22 06:32 MCHC 31.5 g/dl (31.0-36.0) 05/22/22 06:32 RDW 16.0 % (11.0-16.0) 05/22/22 06:32 Plt Count 550 X10*3/uL (160-400) H 05/22/22 06:32 MPV 9.3 fL (9.4-12.4) L 05/22/22 06:32 Immature Gran % (Auto) 0.6 % (0.0-0.4) H 05/22/22 06:32 Neut % (Auto) 70.1 % (45-73) 05/22/22 06:32 Lymph % (Auto) 15.4 % (20-40) L 05/22/22 06:32 Stephenson % (Auto) 11.3 % (2-11) H 05/22/22 06:32 Eos % (Auto) 2.1 % (0-4) 05/22/22 06:32 Baso % (Auto) 0.5 % (0-2) 05/22/22 06:32 Lymph # (Auto) 1.7 X10*3/uL (1.2-4.9) 05/22/22 06:32 Stephenson # (Auto) 1.2 X10*3/uL (0.1-1.2) 05/22/22 06:32 Eos # (Auto) 0.2 X10*3/uL (0.0-0.4) 05/22/22 06:32 Baso # (Auto) 0.1 X10*3/uL (0.0-0.2) 05/22/22 06:32 Abs Immat Gran (auto) 0.06 X10*3/uL (0.00-0.03) H 05/22/22 06:32 Absolute Neuts (auto) 7.5 x10*3/uL (2.0-8.3) 05/22/22 06:32 Absolute Nucleated RBC 0.000 X10*3/uL (0.0-0.012) 05/22/22 06:32 Nucleated RBC % (auto) 0.0 /100WBC (0.0-0.2) 05/22/22 06:32 PT 14.7 SEC (10.0-13.1) H 05/21/22 17:32 INR 1.3 (0.9-1.1) H 05/21/22 17:32 Sodium 134 mmol/L (135-145) L 05/22/22 06:32 Potassium 4.4 mmol/L (3.3-5.1) 05/22/22 06:32 Chloride 106 mmol/L (96-108) 05/22/22 06:32 Carbon Dioxide 20 mmol/L (22-29) L 05/22/22 06:32 Anion Gap 12 (12-20) 05/22/22 06:32 BUN 10 mg/dL (9-16) 05/22/22 06:32 Creatinine 0.99 mg/dL (0.5-1.4) 05/22/22 06:32 Estim Creat Clear Calc 87.3 05/22/22 06:32 Estimated GFR > 60 05/22/22 06:32 POC Glucose 299 mg/dL (60-115) H 05/22/22 16:37 Random Glucose 244 mg/dL (60-115) H 05/22/22 06:32 Estimat Average Glucose 252 mg/dL 05/22/22 06:32 Hemoglobin A1c % 10.4 % 05/22/22 06:32 Lactic Acid 1.0 mmol/L (0.5-2.0) 05/21/22 15:50 Calcium 7.5 mg/dL (8.4-10.2) L D 05/22/22 06:32 Iron 30 mcg/dL (45-160) L 05/22/22 06:32 TIBC 245 mcg/dL (228-428) 05/22/22 06:32 % Saturation 12 % (15-50) L 05/22/22 06:32 Unsat Iron Binding 215 ug/dL 05/22/22 06:32 Ferritin 43 ng/mL (20-250) 05/21/22 20:11 Total Bilirubin 0.5 mg/dL (0.0-1.0) 05/21/22 15:49 Direct Bilirubin 0.3 mg/dL (0.0-0.5) 05/21/22 15:49 AST 12 U/L (5-37) 05/21/22 15:49 ALT 12 U/L (0-40) 05/21/22 15:49 Alkaline Phosphatase 110 U/L (39-117) 05/21/22 15:49 Troponin I High Sens 18.0 ng/L (<3.5-35.0) 05/21/22 15:50 Total Protein 7.2 g/dL (6.5-8.0) 05/21/22 15:49 Albumin 3.2 g/dL (3.5-5.0) L 05/21/22 15:49 Vitamin B12 929 pg/mL (200-900) H 05/21/22 20:11 Folate 12.6 ng/mL (> or = 4.0) 05/21/22 20:11 Stool Occult Blood NEGATIVE (NEGATIVE) 05/21/22 17:32 COVID-19 (DELIA) Negative (Negative) 05/21/22 15:49 COVID-19 Clin Com See Note 05/21/22 15:49 Blood Type A Positive 05/21/22 15:48 Antibody Screen NEGATIVE 05/21/22 15:48 Crossmatch See Detail 05/21/22 15:48 Impressions Chest X-Ray 05/21/22 16:04 IMPRESSION: Clear lungs. Foot X-Ray 05/21/22 16:04 IMPRESSION: Destructive changes at the second metatarsophalangeal joint, concerning for osteomyelitis with lucency and erosion. Likely associated fracture at the base of the proximal phalanx. Chest CT 05/21/22 18:39 IMPRESSION: -A few mildly enlarged mediastinal lymph nodes are noted, nonspecific. -Tiny bilateral pleural effusions. Fleischner guidelines were followed. Assessment and Plan (1) Osteomyelitis: Status: Acute He has an open wound on the base of the 2nd toe on the right foot. He has x-ray shows findings consistent with osteomyelitis at the metatarsophalangeal joint. He has a known diabetic. I explained to him that options include amputation small to this infection at the metatarsal, versus long-term IV antibiotic treatment. He is strongly against further amputation at this time as he has had an amputation of the left foot in the past. He says he wants to proceed with long-term IV antibiotic treatment for now. He understands that there may be failure rate for this. He will therefore need to have a PICC line placed. I will follow along while he is in the hospital. Procedures Date of Service Date of Service: 05/22/22
[2022-05-22] MEDS: 0.9 % Sodium Chloride Flush 3 ML SYRINGE IVFLUSH (18:33)
[2022-05-22 20:01] LABS: Glucose, Whole Blood 218 mg/dL (60-115)
[2022-05-22] MEDS: Acetaminophen 325 MG TABLET 650 MG PO (23:49)
[2022-05-23] VITALS (8 sets, daily range): BP systolic 111–162; BP diastolic 67–91; PULSE 77–100; RESP 16–20; TEMP 36.1–37.4; O2SAT 93–100
[2022-05-23] MEDS: 0.9 % Sodium Chloride Flush 3 ML SYRINGE IVFLUSH ×3 (00:21→11:40)
[2022-05-23 00:42] LABS: Amphetamine Screen Urine Not Detected (Not Detect); Barbiturates, Urine Not Detected (Not Detect); Benzodiazepines Screen Urine Not Detected (Not Detect); Cannabinoid Screen Urine Not Detected (Not Detect); Cocaine Screen Urine POSITIVE (Not Detect); Fentanyl, urine Not Detected (Not Detect); Opiate Screen Urine Not Detected (Not Detect); Phencyclidine Screen Urine Not Detected (Not Detect)
--- NOTE | 2022-05-23 03:16 | PC.NURSE ---
@0000 pt O2 sat was high 80s low 90s, put 1L of O2 obtained 96% upright position, @0300 pt sleeping in prone position O2 sat was 91% - 93% increased 2L of O2, obtained 96%. pt went to br afew times in 1899 to 299, dressing was loosening, dressing change with Xeroform with DSD wrapped. pt's right 2nd toe has purulent drainage oozing.
[2022-05-23] MEDS: 0.9 % Sodium Chloride 1,000 ML 100 ML IVCONT (04:32)
[2022-05-23] MEDS: Omeprazole 40 MG CAPSULE.DR PO (05:36)
[2022-05-23] MEDS: Piperacillin Sodium/Tazobactam 3.375 GM in 0.9 % Sodium Chloride 50 ML IV ×3 (05:36→18:02)
[2022-05-23 06:22] LABS: Hematocrit 22.7 % (42.0-52.0); Hemoglobin 7.1 g/dl (14.0-18.0); Mean Corpuscular HGB Conc 31.3 g/dl (31.0-36.0); Mean Corpuscular Hemoglobin 25.3 pg (27.0-33.0); Mean Corpuscular Volume 80.8 fL (80.0-98.0); Platelet Count 580 X10*3/uL (160-400); Red Blood Count 2.81 X10*6/uL (4.60-5.80); White Blood Count 11.6 X10*3/uL (4.8-10.8)
[2022-05-23 06:37] LABS: Anion Gap 13 (12-20); Blood Urea Nitrogen 10 mg/dL (9-16); Carbon Dioxide 20 mmol/L (22-29); Chloride 106 mmol/L (96-108); Estimated Glomerular Filt Rate > 60; Potassium 4.5 mmol/L (3.3-5.1); Sodium 134 mmol/L (135-145)
[2022-05-23 06:38] LABS: Calcium 7.8 mg/dL (8.4-10.2); Glucose Random 238 mg/dL (60-115)
[2022-05-23 06:40] LABS: Vancomycin Trough 11.8 mcg/mL (10.0-20.0)
[2022-05-23 07:31] LABS: Glucose, Whole Blood 232 mg/dL (60-115)
[2022-05-23] MEDS: amLODIPine Besylate 10 MG TABLET PO (08:07)
[2022-05-23] MEDS: Apixaban 5 MG TABLET PO ×2 (08:08→20:26)
[2022-05-23] MEDS: Ferrous Sulfate 324 MG TABLET.DR PO ×2 (08:08→20:26)
[2022-05-23] MEDS: Atorvastatin Calcium 40 MG TABLET PO (08:08)
[2022-05-23] MEDS: lisinopriL 20 MG TABLET PO (08:08)
[2022-05-23] MEDS: Insulin Lispro 100 UNIT/ML 3 ML VIAL SUBCUT ×7 (08:09→20:26)
[2022-05-23] MEDS: Insulin Glargine,Hum.rec.anlog 100 UNIT/ML 10 ML VIAL 20 UNIT SUBCUT (08:09)
[2022-05-23] MEDS: Acetaminophen 325 MG TABLET 650 MG PO ×2 (08:10→21:44)
[2022-05-23] MEDS: vancomycin HCL 1,000 MG in 0.9 % Sodium Chloride 250 ML 270 MG IV ×2 (08:10→20:25)
--- NOTE | 2022-05-23 10:45 | P.PNIM_ITS ---
Subjective Subjective Date of Service: 05/23/22 Interval History: the patient was seen and evaluated this morning Laying in bed, feels comfortable overall Improved right foot pain and decreased drainage Denies any fever, chills or shortness of breath No reported other overnight events. Systemic review: No fever, chills or weakness No chest pain, palpitation No shortness of breath or coughing No abdominal pain, nausea or vomiting No urinary symptoms Open wound at the base of his right foot Physical Exam Vital Signs: Vital Signs: Last Vital Signs Temp 97.9 F 05/23/22 08:00 Pulse 98 05/23/22 08:00 Resp 17 05/23/22 08:00 BP 142/79 H 05/23/22 08:00 Pulse Ox 93 05/23/22 08:00 O2 Del Method 05/23/22 08:00 O2 Flow Rate 1 05/23/22 03:05 BMI result Body Mass Index 27.3 Const: Other: Constitutional : Alert, oriented, not in distress Neck : Normal inspection, Supple Cardiovascular : RRR, no JVP, no lower extremity edema Respiratory : fair bilateral air entry, no crackles, wheezes or rhonchi Gastrointestinal: soft, lax, Normal bowel sounds, Non tender Skin : Warm, Dry Musculoskeletal, transmetatarsal amputation of left foot, right 2nd toe erythema with open wound at the base of it Neurological : Alert & oriented x3, No focal deficit , CN 2-12 within normal Objective Data Active Medications Acetaminophen (Acetaminophen 325 Mg Tablet) 650 mg PO Q6H PRN PRN Reason: Pain, Mild (Pain Scale 1-3) Last Admin: 05/23/22 08:10 Dose: 650 mg Documented By: BRET Amlodipine Besylate (Amlodipine Besylate 10 Mg Tablet) 10 mg PO DAILY [facility]; Protocol Last Admin: 05/23/22 08:07 Dose: 10 mg Documented By: BRET Comments: bp-142/79 Apixaban (Apixaban 5 Mg Tablet) 5 mg PO BID [facility] Last Admin: 05/23/22 08:08 Dose: 5 mg Documented By: BRET Atorvastatin Calcium (Atorvastatin Calcium 40 Mg Tablet) 40 mg PO DAILY [facility] Last Admin: 05/23/22 08:08 Dose: 40 mg Documented By: BRET Dextrose (Dextrose 50 % 25 Gm/50 Ml Syringe) 25 gm IVPUSH Q15M PRN; Protocol PRN Reason: per Hypoglycemia Standing Ord. Docusate Sodium (Docusate Sodium 100 Mg Capsule) 100 mg PO DAILY PRN PRN Reason: Constipation Ferrous Sulfate (Ferrous Sulfate 324 Mg Tablet.) 324 mg PO BID [facility] Last Admin: 05/23/22 08:08 Dose: 324 mg Documented By: BRET Glucose (Glucose Gel 15 Gm Gel..Gram.) 15 gm PO Q15M PRN; Protocol PRN Reason: per Hypoglycemia Standing Ord. Piperacillin Sod/Tazobactam (Sod 3.375 gm/ Sodium Chloride) 50 mls @ 100 mls/hr IV Q6H [facility] Last Infusion: 05/23/22 06:21 Dose: 0 mls/hr Documented By: SON Sodium Chloride (Ns) 1,000 mls @ 100 mls/hr IVCONT .Q10H [facility] Last Infusion: 05/23/22 08:10 Dose: 0 mls/hr Documented By: BRET Vancomycin HCl 1,000 mg/ (Sodium Chloride) 270 mls @ 270 mls/hr IV Q12H [facility] Last Infusion: 05/23/22 10:18 Dose: 0 mls/hr Documented By: BRET Insulin Glargine (Insulin Glargine,Hum.Rec.Anlog 100 Unit/Ml 10 Ml Vial) 20 unit SUBCUT BID [facility] Last Admin: 05/23/22 08:09 Dose: 20 unit Documented By: BRET Insulin Human Lispro (Insulin Lispro 100 Unit/Ml 3 Ml Vial) 0 unit SUBCUT QIDACHS [facility]; Protocol Last Admin: 05/23/22 08:09 Dose: 4 unit Documented By: BRET Insulin Human Lispro (Insulin Lispro 100 Unit/Ml 3 Ml Vial) 4 unit SUBCUT Q IDACHS [facility] Last Admin: 05/23/22 08:09 Dose: 4 unit Documented By: BRET Lisinopril (Lisinopril 20 Mg Tablet) 20 mg PO DAILY [facility]; Protocol Last Admin: 05/23/22 08:08 Dose: 20 mg Documented By: BRET Comments: bp-142/79 Omeprazole (Omeprazole 40 Mg Capsule.) 40 mg PO DAILY@0630 [facility] Last Admin: 05/23/22 05:36 Dose: 40 mg Documented By: SON Ondansetron HCl (Ondansetron Hcl 4 Mg/2 Ml Vial) 4 mg IVPUSH Q8H PRN PRN Reason: Nausea and Vomiting Oxycodone HCl (Oxycodone Hcl Immed Release 5 Mg Tablet) 5 mg PO Q6H PRN PRN Reason: Pain, Severe (Pain Scale 7-10) Pharmacy Consult (Consult Rx Perform Med Rec) 1 each MISCELLANE ONCE PRN PRN Reason: Consult order Pharmacy Consult (Consult Rx Vancomycin Dosing) 1 each MISCELLANE DAILY PRN PRN Reason: Consult order Sodium Chloride (0.9 % Sodium Chloride Flush 3 Ml Syringe) 3 ml IVFLUSH QSHIFT [facility] Last Admin: 05/23/22 08:09 Dose: 3 ml Documented By: BRET Labs CBC & Chem 7: 05/23/22 05:41 05/23/22 05:41 Labs: Laboratory Results - last 24 hr 05/22/22 05/22/22 05/22/22 06:32 12:13 16:37 MCV MCH MCHC RDW Plt Count MPV Absolute Nucleated RBC Nucleated RBC % (auto) Anion Gap Estim Creat Clear Calc Estimated GFR POC Glucose 292 H 299 H Random Glucose Estimat Average Glucose 252 Hemoglobin A1c % 10.4 Calcium Vancomycin Trough Urine Opiates Screen Urine Fentanyl Screen Ur Barbiturates Screen Ur Phencyclidine Scrn Ur Amphetamines Screen U Benzodiazepines Scrn Urine Cocaine Screen U Marijuana (THC) Screen 05/22/22 05/23/22 05/23/22 19:57 00:11 05:41 MCV MCH MCHC RDW Plt Count MPV Absolute Nucleated RBC Nucleated RBC % (auto) Anion Gap Estim Creat Clear Calc Estimated GFR POC Glucose 218 H Random Glucose Estimat Average Glucose Hemoglobin A1c % Calcium Vancomycin Trough 11.8 Urine Opiates Screen Not Detected Urine Fentanyl Screen Not Detected Ur Barbiturates Screen Not Detected Ur Phencyclidine Scrn Not Detected Ur Amphetamines Screen Not Detected U Benzodiazepines Scrn Not Detected Urine Cocaine Screen POSITIVE H U Marijuana (THC) Screen Not Detected 05/23/22 05/23/22 05/23/22 05:41 05:41 07:27 MCV 80.8 MCH 25.3 L MCHC 31.3 RDW 16.0 Plt Count 580 H MPV 9.0 L Absolute Nucleated RBC 0.000 Nucleated RBC % (auto) 0.0 Anion Gap 13 Estim Creat Clear Calc 80.0 Estimated GFR > 60 POC Glucose 232 H Random Glucose 238 H Estimat Average Glucose Hemoglobin A1c % Calcium 7.8 L Vancomycin Trough Urine Opiates Screen Urine Fentanyl Screen Ur Barbiturates Screen Ur Phencyclidine Scrn Ur Amphetamines Screen U Benzodiazepines Scrn Urine Cocaine Screen U Marijuana (THC) Screen Microbiology Microbiology Results: Microbiology 05/21/22 15:49 Blood Culture - Preliminary Blood - Venous No growth after 24 hours. 05/21/22 15:29 Blood Culture - Preliminary Blood - Venous No growth after 24 hours. Assessment and Plan (1) Diabetic foot ulcer: Status: Acute (2) Osteomyelitis: Status: Acute (3) DMII (diabetes mellitus, type 2): Status: Acute (4) Hyperglycemia: Status: Acute Plan 51-year-old male with past medical history of diabetes, with apparent noncompliant with his insulin presents to the hospital with diabetic foot ulcer # Right diabetic foot wound wound at the base of 2nd and 3rd toes of the right foot x-ray shows evidence of osteomyelitis Continue IV antibiotics Appreciated surgical team consult, patient not interested in amputation # Right 2nd toe base osteomyelitis in the setting of poorly controlled diabetes continue IV antibiotics pending cultures Discussed with Infectious Disease, consider daptomycin 1 g daily for total of [address] PICC line once blood cultures are negative # diabetes appears to be noncompliant as his last insulin glargine was picked up in October HbA1c of 10.4 Increase insuline glargine to 25 bid low-dose sliding scale insulin diabetic diet # Acute on chronic anemia No evidence of blood loss , negative occult blood Iron deficiency per iron studies continue oral iron, increase to b.i.d. On need outpatient evaluation with upper and lower endoscopies # hypertension continue home antihypertensives # history of PAD, angiography on apixaban DVT prophylaxis Apixaban Given osteomyelitis and need for IV antibiotics patient will require overnight hospital stay for further management to prevent possible decompensation to sepsis Quality Stroke Does the patient have a stroke diagnosis?: No VTE Prior VTE?: No VTE Risk Level:: Medical - moderate - high VTE Device Contraindication: Treatment Not Indicated VTE Drug Contraindication: N/A - Med Ordered
[2022-05-23 11:18] LABS: Glucose, Whole Blood 252 mg/dL (60-115)
--- NOTE | 2022-05-23 12:02 | P.CDIC_ITS ---
CDI Concurrent Query Documentation Clarification: cdPHYSICIAN'S DOCUMENTATION REQUEST Date of Query: 05/23/22 1202 Patient Name: Irving Barry Admit Date: 05/21/22 Dear Doctor, A review of the medical record indicates additional documentation may be needed. Please review below and update the documentation accordingly. Clinical Indicators: Documentation on 05/23/22 indicates Osteomyelitis. Risk Factors/Clinical Indicators/Treatments Per MD progress note 05/23/22: ?Right 2nd toe base osteomyelitis in the setting of poorly controlled diabetes Based on the above, please clarify in the Progress Notes further specificity regarding the type of Osteomyelitis. Also include specific site with laterality and known or suspected infectious agent: * Acute osteomyelitis * Acute hematogenous osteomyelitis * Subacute osteomyelitis * Chronic osteomyelitis * Chronic hemotogenous osteomyelitis * Chronic multifocal osteomyelitis * Other (please specify) * Unable to determine Use of terms such as suspected, likely, concern for, or probable (associated with a specific diagnosis that is being evaluated, monitored, or treated as if it exists) are acceptable and can be coded in the inpatient setting, when docume nted at the time of discharge. Thank you, Doreen Granados RN Extension: [phone] Please use your independent medical judgment in providing your response. THIS QUERY IS PART OF THE PERMANENT MEDICAL RECORD Provider Response: Other Other Diagnosis: Acute osteomyelitis
--- NOTE | 2022-05-23 14:49 | MHC.CM.PN ---
PER CONVERSATION WITH PATIENT, HE IS NOT FEELING COMFORTABLE ENOUGH TO GO HOME AND RE-VISIT THURSDAY AND THURSDAY FOR IV ABX. HE PREFERS TO WAIT FOR HIS PICC PLACEMENT AND STAR HIS REGIMEN OF [facility] AND [facility]. MD AWARE THAT PATIENT DOES NOT FEEL SAFE TO DC TODAY
--- NOTE | 2022-05-23 15:19 | W.PM.IDCN ---
History of Present Illness Data of Consult Service Date: 05/23/22 Requesting physician: Kylah Sandoval Primary Care Provider: Fredy Adair PA-C HPI Reason for consult: right foot osteomyelitis He presents with right foot malodor and redness. He has serous drainage. He has OM XR second MTP joint. He was in house 08/2021 and had OM left foot but left on Levaquin and Doxycycline po He is nonadherent with Insulin Review of Systems Review of Systems: Yes all other systems are reviewed and are negative [facility] Past Medical History Medical History Anemia Anemia of chronic disease Bacteremia Diabetes Diabetic foot ulcer Diabetic foot ulcer Gangrene of toe of left foot GERD (gastroesophageal reflux disease) History of angiography Open wound Orthostatic hypotension PAD (peripheral artery disease) Peripheral vascular disease PICC (peripherally inserted central catheter) in place Family History Family History Other Diabetes Family history: reviewed and not pertinent Surgical History Surgical History Amputated toe of right foot (11/05/20) Social History Social History Household Members: Spouse and Children Housing: Apartment Do you presently have visiting nurse or other home services: No Alcohol intake: current Alcohol intake frequency: a few times a month Patient Tobacco Use Status: Former Tobacco user Tobacco use type: Cigarette Years Smoked: 15 e-Cigarette/Vaping Use: Never Used Second Hand Smoke Exposure: No service: No Current occupational status: unemployed Meds Allergies Allergy/AdvReac Type Severity Reaction Status Date / Time No Known Allergies Allergy Verified 03/04/22 13:01 Active Medications: Current Medications Acetaminophen (Acetaminophen 325 Mg Tablet) 650 mg PO Q6H PRN PRN Reason: Pain, Mild (Pain Scale 1-3) Last Admin: 05/23/22 08:10 Dose: 650 mg Amlodipine Besylate (Amlodipine Besylate 10 Mg Tablet) 10 mg PO DAILY [facility]; Protocol Last Admin: 05/23/22 08:07 Dose: 10 mg Apixaban (Apixaban 5 Mg Tablet) 5 mg PO BID [facility] Last Admin: 05/23/22 08:08 Dose: 5 mg Atorvastatin Calcium (Atorvastatin Calcium 40 Mg Tablet) 40 mg PO DAILY [facility] Last Admin: 05/23/22 08:08 Dose: 40 mg Dextrose (Dextrose 50 % 25 Gm/50 Ml Syringe) 25 gm IVPUSH Q15M PRN; Protocol PRN Reason: per Hypoglycemia Standing Ord. Docusate Sodium (Docusate Sodium 100 Mg Capsule) 100 mg PO DAILY PRN PRN Reason: Constipation Ferrous Sulfate (Ferrous Sulfate 324 Mg Tablet.) 324 mg PO BID [facility] Last Admin: 05/23/22 08:08 Dose: 324 mg Glucose (Glucose Gel 15 Gm Gel..Gram.) 15 gm PO Q15M PRN; Protocol PRN Reason: per Hypoglycemia Standing Ord. Piperacillin Sod/Tazobactam (Sod 3.375 gm/ Sodium Chloride) 50 mls @ 100 mls/hr IV Q6H [facility] Last Infusion: 05/23/22 13:04 Dose: Infused Vancomycin HCl 1,000 mg/ (Sodium Chloride) 270 mls @ 270 mls/hr IV Q12H [facility] Last Infusion: 05/23/22 10:18 Dose: Infused Insulin Glargine (Insulin Glargine,Hum.Rec.Anlog 100 Unit/Ml 10 Ml Vial) 25 unit SUBCUT BID [facility] Insulin Human Lispro (Insulin Lispro 100 Unit/Ml 3 Ml Vial) 0 unit SUBCUT QIDACHS [facility]; Protocol Last Admin: 05/23/22 11:39 Dose: 6 unit Insulin Human Lispro (Insulin Lispro 100 Unit/Ml 3 Ml Vial) 4 unit SUBCUT QIDACHS [facility] Last Admin: 05/23/22 11:39 Dose: 4 unit Lisinopril (Lisinopril 20 Mg Tablet) 20 mg PO DAILY [facility]; Protocol Last Admin: 05/23/22 08:08 Dose: 20 mg Omeprazole (Omeprazole 40 Mg Capsule.) 40 mg PO DAILY@0630 [facility] Last Admin: 05/23/22 05:36 Dose: 40 mg Ondansetron HCl (Ondansetron Hcl 4 Mg/2 Ml Vial) 4 mg IVPUSH Q8H PRN PRN Reason: Nausea and Vomiting Oxycodone HCl (Oxycodone Hcl Immed Release 5 Mg Tablet) 5 mg PO Q6H PRN PRN Reason: Pain, Severe (Pain Scale 7-10) Pharmacy Consult (Consult Rx Perform Med Rec) 1 each MISCELLANE ONCE PRN PRN Reason: Consult order Pharmacy Consult (Consult Rx Vancomycin Dosing) 1 each MISCELLANE DAILY PRN PRN Reason: Consult order Sodium Chloride (0.9 % Sodium Chloride Flush 3 Ml Syringe) 3 ml IVFLUSH QSHIFT [facility] Last Admin: 05/23/22 11:40 Dose: 3 ml Home Medications Medication Instructions Recorded Confirmed Last Taken Type blood sugar diagnostic #10 ea 11/20/20 12/12/21 Unknown History pen needle, diabetic 32 gauge x #50 ea 11/20/20 12/12/21 Unknown History atorvastatin 40 mg tablet 1 tab PO DAILY 05/21/22 05/21/22 Unknown History insulin glargine 100 unit/mL (3 20 unit subcut BID 05/21/22 05/21/22 Unknown History mL) subcutaneous pen (Basaglar KwikPen U-100 Insulin) Physical Exam Vital Signs: Vital Signs: Last Vital Signs Temp 96.9 F 05/23/22 11:00 Pulse 96 05/23/22 11:00 Resp 18 05/23/22 11:00 BP 159/85 H 05/23/22 11:00 Pulse Ox 96 05/23/22 11:00 O2 Del Method 05/23/22 11:00 O2 Flow Rate 1 05/23/22 03:05 BMI result Body Mass Index 27.3 Const: General: cooperative HEENT: Head: Yes normal to inspection Face and sinus: Yes normal facial exam Mouth: Normal oral and palatal mucosa present Teeth and gingiva: dentition normal Eyes: General: appearance normal, both eyes and all related structures Pupils: Equal, round and reactive pupils present Resp: Effort & Inspection: normal respiratory effort Cardio: Rate: regular rate Rhythm: regular rhythm GI: Palpation (GI): Soft to palpation and nontender : General: Yes no CVA tenderness Back/Spine/Pelvis: Back: no CVA tenderness Skin: General skin exam: no rashes or lesions noted Neuro: General: moves all extremities Cranial nerves: Yes Equal, round and reactive pupils present Extrem: Other: reddened malodorous right foot General: Yes normal to inspection Psych: Appearance: grossly normal Results Labs CBC & Chem 7: 05/23/22 05:41 05/23/22 05:41 Labs: Short CBC 05/23/22 Range/Units 05:41 WBC 11.6 H (4.8-10.8) X10*3/uL Hgb 7.1 L (14.0-18.0) g/dl Hct 22.7 L (42.0-52.0) % Plt Count 580 H (160-400) X10*3/uL BMP 05/23/22 05:41 Sodium 134 L Potassium 4.5 Chloride 106 Carbon Dioxide 20 L BUN 10 Creatinine 1.08 Calcium 7.8 L Microbiology Microbiology Results: Microbiology 05/21/22 15:49 Blood - Venous Blood Culture - Preliminary No growth after 24 hours. 05/21/22 15:29 Blood - Venous Blood Culture - Preliminary No growth after 24 hours. Assessment and Plan (1) Diabetic foot ulcer: Qualifiers: Diabetes mellitus type: type 1 Diabetic foot ulcer location: midfoot Laterality: right Non-pressure ulcer stage: unspecified non-pressure ulcer stage Qualified Code(s): E10.621 - Type 1 diabetes mellitus with foot ulcer; L97.419 - Non-pressure chronic ulcer of right heel and midfoot with unspecified severity Status: Acute He has acute on chronic osteomyelitis (2) Osteomyelitis: Status: Acute Plan Continue current antibiotics Vancomycin and Zosyn Possible po Augmentin and Doxycycline to follow as patient not inclined to take 6 weeks IV.
[2022-05-23 16:23] LABS: Glucose, Whole Blood 206 mg/dL (60-115)
[2022-05-23 19:47] LABS: Glucose, Whole Blood 193 mg/dL (60-115)
[2022-05-23] MEDS: Insulin Glargine,Hum.rec.anlog 100 UNIT/ML 10 ML VIAL 25 UNIT SUBCUT (20:25)
[2022-05-24] VITALS (11 sets, daily range): BP systolic 111–160; BP diastolic 66–84; PULSE 86–96; RESP 16–22; TEMP 36–37.4; O2SAT 93–97
[2022-05-24] MEDS: Piperacillin Sodium/Tazobactam 3.375 GM in 0.9 % Sodium Chloride 50 ML IV ×3 (00:05→18:14)
[2022-05-24] MEDS: 0.9 % Sodium Chloride Flush 3 ML SYRINGE IVFLUSH ×3 (00:05→16:08)
[2022-05-24] MEDS: Omeprazole 40 MG CAPSULE.DR PO (06:09)
[2022-05-24 06:57] LABS: Hematocrit 21.5 % (42.0-52.0); Mean Corpuscular HGB Conc 32.1 g/dl (31.0-36.0); Mean Corpuscular Hemoglobin 25.5 pg (27.0-33.0); Mean Corpuscular Volume 79.3 fL (80.0-98.0); Mean Platelet Volume 9.1 fL (9.4-12.4); Platelet Count 564 X10*3/uL (160-400); Red Blood Count 2.71 X10*6/uL (4.60-5.80); White Blood Count 11.1 X10*3/uL (4.8-10.8)
[2022-05-24 07:03] LABS: Hemoglobin 6.9 g/dl (14.0-18.0)
[2022-05-24 07:05] LABS: Anion Gap 14 (12-20); Blood Urea Nitrogen 9 mg/dL (9-16); Calcium 7.9 mg/dL (8.4-10.2); Carbon Dioxide 21 mmol/L (22-29); Chloride 103 mmol/L (96-108); Estimated Glomerular Filt Rate > 60; Glucose Random 282 mg/dL (60-115); Potassium 4.4 mmol/L (3.3-5.1); Sodium 134 mmol/L (135-145)
[2022-05-24 07:09] LABS: Vancomycin Trough 11.4 mcg/mL (10.0-20.0)
[2022-05-24 07:17] LABS: Glucose, Whole Blood 254 mg/dL (60-115)
--- NOTE | 2022-05-24 07:44 | HE.PHANOTE ---
Vancomycin Dosing Addendum Vancomycin Trough 11.4. Cr improving. Increasing dose to 1250 mg q12h for predicted AUC of 464. Next trough 05/25/22 @0600
[2022-05-24] MEDS: lisinopriL 20 MG TABLET PO (08:02)
[2022-05-24] MEDS: Atorvastatin Calcium 40 MG TABLET PO (08:02)
[2022-05-24] MEDS: vancomycin HCL 1,250 MG in 0.9 % Sodium Chloride 250 ML 166.67 MG IV (08:02)
[2022-05-24] MEDS: amLODIPine Besylate 10 MG TABLET PO (08:02)
[2022-05-24] MEDS: Apixaban 5 MG TABLET PO ×2 (08:02→21:09)
[2022-05-24] MEDS: Insulin Glargine,Hum.rec.anlog 100 UNIT/ML 10 ML VIAL 25 UNIT SUBCUT (08:03)
[2022-05-24] MEDS: Insulin Lispro 100 UNIT/ML 3 ML VIAL SUBCUT ×7 (08:04→21:08)
[2022-05-24] MEDS: Docusate Sodium 100 MG CAPSULE PO ×2 (10:21→21:09)
[2022-05-24] MEDS: Lactulose 20 GM/30 ML SOLUTION 30 GM PO (10:37)
[2022-05-24 11:23] LABS: Glucose, Whole Blood 183 mg/dL (60-115)
--- NOTE | 2022-05-24 11:49 | P.PNIM_ITS ---
Subjective Subjective Date of Service: 05/24/22 Interval History: the patient was seen and evaluated this morning Laying in bed, feels constipated increased swelling and drainage of the 2nd toe No reported other overnight events. Systemic review: No fever, chills or weakness No chest pain, palpitation No shortness of breath or coughing No abdominal pain, nausea or vomiting No urinary symptoms Open wound at the base of his right foot Physical Exam Vital Signs: Vital Signs: Last Vital Signs Temp 97 F 05/24/22 11:05 Pulse 96 05/24/22 11:05 Resp 18 05/24/22 11:05 BP 142/84 H 05/24/22 11:05 Pulse Ox 97 05/24/22 11:05 O2 Del Method 05/24/22 11:05 O2 Flow Rate 5 05/23/22 23:48 BMI result Body Mass Index 27.3 Const: Other: Constitutional : Alert, oriented, not in distress Neck : Normal inspection, Supple Cardiovascular : RRR, no JVP, no lower extremity edema Respiratory : fair bilateral air entry, no crackles, wheezes or rhonchi Gastrointestinal: soft, lax, Normal bowel sounds, Non tender Skin : Warm, Dry Musculoskeletal, transmetatarsal amputation of left foot, right 2nd toe erythema with open wound at the base of it and increased dorsal collection with more drainage Neurological : Alert & oriented x3, No focal deficit , CN 2-12 within normal Objective Data Active Medications Acetaminophen (Acetaminophen 325 Mg Tablet) 650 mg PO Q6H PRN PRN Reason: Pain, Mild (Pain Scale 1-3) Last Admin: 05/23/22 21:44 Dose: 650 mg Documented By: NHI Amlodipine Besylate (Amlodipine Besylate 10 Mg Tablet) 10 mg PO DAILY [facility]; Protocol Last Admin: 05/24/22 08:02 Dose: 10 mg Documented By: DONNA Apixaban (Apixaban 5 Mg Tablet) 5 mg PO BID [facility] Last Admin: 05/24/22 08:02 Dose: 5 mg Documented By: DONNA Atorvastatin Calcium (Atorvastatin Calcium 40 Mg Tablet) 40 mg PO DAILY [facility] Last Admin: 05/24/22 08:02 Dose: 40 mg Documented By: DONNA Dextrose (Dextrose 50 % 25 Gm/50 Ml Syringe) 25 gm IVPUSH Q15M PRN; Protocol PRN Reason: per Hypoglycemia Standing Ord. Docusate Sodium (Docusate Sodium 100 Mg Capsule) 100 mg PO DAILY PRN PRN Reason: Constipation Last Admin: 05/24/22 10:21 Dose: 100 mg Documented By: MADINA Docusate Sodium (Docusate Sodium 100 Mg Capsule) 100 mg PO BID [facility] Last Admin: 05/24/22 11:17 Dose: Not Given Documented By: MADINA Non-Admin Reason: documented under prn Ferrous Sulfate (Ferrous Sulfate 324 Mg Tablet.Dr) 324 mg PO BID [facility] Last Admin: 05/23/22 20:26 Dose: 324 mg Documented By: NHI Glucose (Glucose Gel 15 Gm Gel..Gram.) 15 gm PO Q15M PRN; Protocol PRN Reason: per Hypoglycemia Standing Ord. Piperacillin Sod/Tazobactam (Sod 3.375 gm/ Sodium Chloride) 50 mls @ 100 mls/hr IV Q6H [facility] Last Infusion: 05/24/22 06:41 Dose: 0 mls/hr Documented By: CHRIS Vancomycin HCl 1,250 mg/ (Sodium Chloride) 250 mls @ 166.667 mls/hr IV Q12H [facility] Last Infusion: 05/24/22 08:12 Dose: 0 mls/hr Documented By: DONNA Ferric Sodium Gluconate Complex 125 mg/ Sodium Chloride 110 mls @ 100 mls/hr IV DAILY [facility] Stop: 05/26/22 10:05 Insulin Glargine (Insulin Glargine,Hum.Rec.Anlog 100 Unit/Ml 10 Ml Vial) 25 unit SUBCUT BID [facility] Last Admin: 05/24/22 08:03 Dose: 25 unit Documented By: DONNA Insulin Human Lispro (Insulin Lispro 100 Unit/Ml 3 Ml Vial) 0 unit SUBCUT QIDACHS [facility]; Protocol Last Admin: 05/24/22 08:04 Dose: 6 unit Documented By: DONNA Insulin Human Lispro (Insulin Lispro 100 Unit/Ml 3 Ml Vial) 4 unit SUBCUT QIDACHS [facility] Last Admin: 05/24/22 08:05 Dose: 4 unit Documented By: DONNA Lisinopril (Lisinopril 20 Mg Tablet) 20 mg PO DAILY [facility]; Protocol Last Admin: 05/24/22 08:02 Dose: 20 mg Documented By: DONNA Omeprazole (Omeprazole 40 Mg Capsule.) 40 mg PO DAILY@0630 [facility] Last Admin: 05/24/22 06:09 Dose: 40 mg Documented By: CHRIS Ondansetron HCl (Ondansetron Hcl 4 Mg/2 Ml Vial) 4 mg IVPUSH Q8H PRN PRN Reason: Nausea and Vomiting Oxycodone HCl (Oxycodone Hcl Immed Release 5 Mg Tablet) 5 mg PO Q6H PRN PRN Reason: Pain, Severe (Pain Scale 7-10) Pharmacy Consult (Consult Rx Perform Med Rec) 1 each MISCELLANE ONCE PRN PRN Reason: Consult order Pharmacy Consult (Consult Rx Vancomycin Dosing) 1 each MISCELLANE DAILY PRN PRN Reason: Consult order Senna (Sennosides 8.6 Mg Tablet) 17.2 mg PO BEDTIME [facility] Sodium Chloride (0.9 % Sodium Chloride Flush 3 Ml Syringe) 3 ml IVFLUSH QSHIFT [facility] Last Admin: 05/24/22 00:05 Dose: 3 ml Documented By: CHRIS Labs CBC & Chem 7: 05/24/22 05:49 05/24/22 05:49 Labs: Laboratory Results - last 24 hr 05/21/22 05/23/22 05/23/22 15:48 16:17 19:17 MCV MCH MCHC RDW Plt Count MPV Absolute Nucleated RBC Nucleated RBC % (auto) Anion Gap Estim Creat Clear Calc Estimated GFR POC Glucose 206 H 193 H Random Glucose Calcium Vancomycin Trough Blood Type A Positive Antibody Screen NEGATIVE Crossmatch See Detail 05/24/22 05/24/22 05/24/22 05:49 05:49 05:49 MCV 79.3 L MCH 25.5 L MCHC 32.1 RDW 16.0 Plt Count 564 H MPV 9.1 L Absolute Nucleated RBC 0.000 Nucleated RBC % (auto) 0.0 Anion Gap 14 Estim Creat Clear Calc 91.0 Estimated GFR > 60 POC Glucose Random Glucose 282 H Calcium 7.9 L Vancomycin Trough 11.4 Blood Type Antibody Screen Crossmatch 05/24/22 05/24/22 07:02 11:04 MCV MCH MCHC RDW Plt Count MPV Absolute Nucleated RBC Nucleated RBC % (auto) Anion Gap Estim Creat Clear Calc Estimated GFR POC Glucose 254 H 183 H Random Glucose Calcium Vancomycin Trough Blood Type Antibody Screen Crossmatch Microbiology Microbiology Results: Microbiology 05/21/22 15:49 Blood Culture - Preliminary Blood - Venous No growth after 48 hours. 05/21/22 15:29 Blood Culture - Preliminary Blood - Venous No growth after 48 hours. Assessment and Plan (1) Osteomyelitis: Status: Acute (2) Anemia: Status: Acute (3) DMII (diabetes mellitus, type 2): Status: Acute Plan 51-year-old male with past medical history of diabetes, with apparent noncompliant with his insulin presents to the hospital with diabetic foot ulcer # Right diabetic foot wound # Right 2nd toe base osteomyelitis in the setting of poorly controlled diabetes wound at the base of 2nd and 3rd toes of the right foot x-ray shows evidence of osteomyelitis negative blood and wound cultures Continue IV antibiotics discussed with surgery team as the patient now considering amputation Discussed with Infectious Disease, consider daptomycin 1 g daily for total of [address] PICC line once blood cultures are negative # Type 2 diabetes with hyperglycemia appears to be noncompliant as his last insulin glargine was picked up in October HbA1c of 10.4 Increase insuline glargine to 30 units bid low-dose sliding scale insulin diabetic diet # Acute on chronic anemia to dropped to 6.9 No evidence of blood loss , negative occult blood Iron deficiency per iron studies continue oral iron, increase to b.i.d. On need outpatient evaluation with upper and lower endoscopies To give a unit of blood and monitor H and H # hypertension continue home antihypertensives # history of PAD, angiography on apixaban DVT prophylaxis Apixaban Given osteomyelitis and need for IV antibiotics patient will require overnight hospital stay for further management to prevent possible decompensation to sepsis Quality Stroke Does the patient have a stroke diagnosis?: No VTE Prior VTE?: No VTE Risk Level:: Medical - moderate - high VTE Device Contraindication: Treatment Not Indicated VTE Drug Contraindication: N/A - Med Ordered
--- NOTE | 2022-05-24 13:52 | P.PNGS_ITS ---
Subjective Subjective Date of Service: 05/24/22 Interval history: still worried about his foot but more amenable to amputation if needed Physical Exam Vital Signs: Vital Signs: Last Vital Signs Temp 97 F 05/24/22 11:05 Pulse 96 05/24/22 11:05 Resp 18 05/24/22 11:05 BP 142/84 H 05/24/22 11:05 Pulse Ox 97 05/24/22 11:05 O2 Del Method 05/24/22 11:05 O2 Flow Rate 5 05/23/22 23:48 BMI result Body Mass Index 27.3 Skin: Other: right dorsal foot with area of undrained purulent material - toe still draining less cellulitis Objective Data Active Medications Acetaminophen (Acetaminophen 325 Mg Tablet) 650 mg PO Q6H PRN PRN Reason: Pain, Mild (Pain Scale 1-3) Last Admin: 05/23/22 21:44 Dose: 650 mg Documented By: NHI Amlodipine Besylate (Amlodipine Besylate 10 Mg Tablet) 10 mg PO DAILY [facility]; Protocol Last Admin: 05/24/22 08:02 Dose: 10 mg Documented By: DONNA Apixaban (Apixaban 5 Mg Tablet) 5 mg PO BID [facility] Last Admin: 05/24/22 08:02 Dose: 5 mg Documented By: DONNA Atorvastatin Calcium (Atorvastatin Calcium 40 Mg Tablet) 40 mg PO DAILY [facility] Last Admin: 05/24/22 08:02 Dose: 40 mg Documented By: DONNA Dextrose (Dextrose 50 % 25 Gm/50 Ml Syringe) 25 gm IVPUSH Q15M PRN; Protocol PRN Reason: per Hypoglycemia Standing Ord. Docusate Sodium (Docusate Sodium 100 Mg Capsule) 100 mg PO DAILY PRN PRN Reason: Constipation Last Admin: 05/24/22 10:21 Dose: 100 mg Documented By: MADINA Docusate Sodium (Docusate Sodium 100 Mg Capsule) 100 mg PO BID [facility] Last Admin: 05/24/22 11:17 Dose: Not Given Documented By: MADINA Non-Admin Reason: documented under prn Ferrous Sulfate (Ferrous Sulfate 324 Mg Tablet.) 324 mg PO BID [facility] Last Admin: 05/23/22 20:26 Dose: 324 mg Documented By: NHI Furosemide (Furosemide 20 Mg/2 Ml Vial) 20 mg IVPUSH ONCE ONE; Protocol Stop: 05/24/22 15:57 Glucose (Glucose Gel 15 Gm Gel..Gram.) 15 gm PO Q15M PRN; Protocol PRN Reason: per Hypoglycemia Standing Ord. Piperacillin Sod/Tazobactam (Sod 3.375 gm/ Sodium Chloride) 50 mls @ 100 mls/hr IV Q6H [facility] Last Infusion: 05/24/22 06:41 Dose: 0 mls/hr Documented By: CHRIS Vancomycin HCl 1,250 mg/ (Sodium Chloride) 250 mls @ 166.667 mls/hr IV Q12H [facility] Last Infusion: 05/24/22 12:57 Dose: 166.66 mls/hr Documented By: DONNA Ferric Sodium Gluconate Complex 125 mg/ Sodium Chloride 110 mls @ 100 mls/hr IV DAILY [facility] Stop: 05/26/22 10:05 Insulin Glargine (Insulin Glargine,Hum.Rec.Anlog 100 Unit/Ml 10 Ml Vial) 30 unit SUBCUT BID [facility] Insulin Human Lispro (Insulin Lispro 100 Unit/Ml 3 Ml Vial) 0 unit SUBCUT QIDA [facility]; Protocol Last Admin: 05/24/22 12:48 Dose: 2 unit Documented By: DONNA Insulin Human Lispro (Insulin Lispro 100 Unit/Ml 3 Ml Vial) 4 unit SUBCUT QIDACHS [facility] Last Admin: 05/24/22 08:05 Dose: 4 unit Documented By: DONNA Lisinopril (Lisinopril 20 Mg Tablet) 20 mg PO DAILY [facility]; Protocol Last Admin: 05/24/22 08:02 Dose: 20 mg Documented By: DONNA Omeprazole (Omeprazole 40 Mg Capsule.) 40 mg PO DAILY@0630 [facility] Last Admin: 05/24/22 06:09 Dose: 40 mg Documented By: CHRIS Ondansetron HCl (Ondansetron Hcl 4 Mg/2 Ml Vial) 4 mg IVPUSH Q8H PRN PRN Reason: Nausea and Vomiting Oxycodone HCl (Oxycodone Hcl Immed Release 5 Mg Tablet) 5 mg PO Q6H PRN PRN Reason: Pain, Severe (Pain Scale 7-10) Pharmacy Consult (Consult Rx Perform Med Rec) 1 each MISCELLANE ONCE PRN PRN Reason: Consult order Pharmacy Consult (Consult Rx Vancomycin Dosing) 1 each MISCELLANE DAILY PRN PRN Reason: Consult order Senna (Sennosides 8.6 Mg Tablet) 17.2 mg PO BEDTIME [facility] Sodium Chloride (0.9 % Sodium Chloride Flush 3 Ml Syringe) 3 ml IVFLUSH QSHIFT [facility] Last Admin: 05/24/22 12:55 Dose: 3 ml Documented By: DONNA Labs CBC & Chem 7: 05/24/22 05:49 05/24/22 05:49 Labs: Laboratory Results - last 24 hr 05/21/22 05/23/22 05/23/22 15:48 16:17 19:17 MCV MCH MCHC RDW Plt Count MPV Absolute Nucleated RBC Nucleated RBC % (auto) Anion Gap Estim Creat Clear Calc Estimated GFR POC Glucose 206 H 193 H Random Glucose Calcium Vancomycin Trough Blood Type A Positive Antibody Screen NEGATIVE Crossmatch See Detail 05/24/22 05/24/22 05/24/22 05:49 05:49 05:49 MCV 79.3 L MCH 25.5 L MCHC 32.1 RDW 16.0 Plt Count 564 H MPV 9.1 L Absolute Nucleated RBC 0.000 Nucleated RBC % (auto) 0.0 Anion Gap 14 Estim Creat Clear Calc 91.0 Estimated GFR > 60 POC Glucose Random Glucose 282 H Calcium 7.9 L Vancomycin Trough 11.4 Blood Type Antibody Screen Crossmatch 05/24/22 05/24/22 07:02 11:04 MCV MCH MCHC RDW Plt Count MPV Absolute Nucleated RBC Nucleated RBC % (auto) Anion Gap Estim Creat Clear Calc Estimated GFR POC Glucose 254 H 183 H Random Glucose Calcium Vancomycin Trough Blood Type Antibody Screen Crossmatch Microbiology Microbiology Results: Microbiology 05/21/22 15:49 Blood Culture - Preliminary Blood - Venous No growth after 48 hours. 05/21/22 15:29 Blood Culture - Preliminary Blood - Venous No growth after 48 hours. Procedures Date of Service Date of Service: 05/24/22 Progress Note: A&P Assessment and plan (1) Diabetic foot ulcer: Status: Acute Plan 51 year old male with diabetic oot infection - improved with iv antibx but has cellultis and now osteo and undrained collection of purulent material - will take to the OR tomorrow to clean out and discuss with Dr Jaquelin abut eventual ampuation - hopefully will just be of the toe although the other adjacent toes show some changes in bone but not clearly osteo. pt understands and agrees with plan Time Spent With Patient Time: Total time spent is greater than 50% in coordination of care (as documented) at patient's floor/unit and/or counseling patient: Quality Stroke Does the patient have a stroke diagnosis?: No VTE Prior VTE?: No VTE Risk Level:: Medical - moderate - high VTE Device Contraindication: Treatment Not Indicated VTE Drug Contraindication: N/A - Med Ordered
[2022-05-24] MEDS: Sodium Ferric Gluconat/Sucrose 125 MG in 0.9 % Sodium Chloride 100 ML 100 MG IV (14:13)
[2022-05-24] MEDS: Acetaminophen 325 MG TABLET 650 MG PO (15:31)
[2022-05-24 16:15] LABS: Glucose, Whole Blood 180 mg/dL (60-115)
[2022-05-24] MEDS: Furosemide 20 MG/2 ML VIAL IVPUSH (18:13)
[2022-05-24] MEDS: vancomycin HCL 1,250 MG in 0.9 % Sodium Chloride 250 ML 166.66 MG IV (19:00)
[2022-05-24 19:47] LABS: Glucose, Whole Blood 223 mg/dL (60-115)
[2022-05-24] MEDS: Insulin Glargine,Hum.rec.anlog 100 UNIT/ML 10 ML VIAL 30 UNIT SUBCUT (21:08)
[2022-05-24] MEDS: traZODone HCL 25 MG HALFTAB PO (21:09)
[2022-05-24] MEDS: Sennosides 8.6 MG TABLET 17.2 MG PO (21:09)
[2022-05-24 21:21] LABS: Glucose, Whole Blood 198 mg/dL (60-115)
[2022-05-25] VITALS (12 sets, daily range): BP systolic 85–159; BP diastolic 59–90; PULSE 84–103; RESP 17–20; TEMP 36.1–37.6; O2SAT 92–100
[2022-05-25] MEDS: Piperacillin Sodium/Tazobactam 3.375 GM in 0.9 % Sodium Chloride 50 ML IV ×5 (00:27→23:29)
[2022-05-25] MEDS: 0.9 % Sodium Chloride Flush 3 ML SYRINGE IVFLUSH ×4 (00:27→23:29)
[2022-05-25 06:20] LABS: Hematocrit 25.1 % (42.0-52.0); Mean Corpuscular HGB Conc 31.9 g/dl (31.0-36.0); Mean Corpuscular Hemoglobin 25.5 pg (27.0-33.0); Mean Corpuscular Volume 79.9 fL (80.0-98.0); Mean Platelet Volume 8.8 fL (9.4-12.4); Platelet Count 544 X10*3/uL (160-400); Red Blood Count 3.14 X10*6/uL (4.60-5.80); Red Cell Distribution Width 16.5 % (11.0-16.0); White Blood Count 10.6 X10*3/uL (4.8-10.8)
[2022-05-25 06:38] LABS: Vancomycin Trough 16.2 mcg/mL (10.0-20.0)
[2022-05-25 07:13] LABS: Glucose, Whole Blood 114 mg/dL (60-115)
--- NOTE | 2022-05-25 07:55 | HE.PHANOTE ---
VANCO LEVEL = 16.2, KEEP SAME DOSE. EXPECTED AUC OF 481
[2022-05-25] MEDS: Atorvastatin Calcium 40 MG TABLET PO (08:32)
[2022-05-25] MEDS: lisinopriL 20 MG TABLET PO (08:32)
[2022-05-25] MEDS: vancomycin HCL 1,250 MG in 0.9 % Sodium Chloride 250 ML 166.66 MG IV ×2 (08:33→19:22)
[2022-05-25] MEDS: Docusate Sodium 100 MG CAPSULE PO ×2 (08:33→20:54)
[2022-05-25] MEDS: amLODIPine Besylate 10 MG TABLET PO (08:33)
[2022-05-25 08:36] LABS: Creatinine Clr Calc Pharmacy 113.7; Estimated Glomerular Filt Rate > 60
--- NOTE | 2022-05-25 10:18 | HO.PM.IMPN ---
Subjective Subjective Date of Service: 05/25/22 Interval History: the patient was seen and evaluated this morning Laying in bed, feels better overall Plan for surgical intervention today NPO over midnight No reported other overnight events. Systemic review: No fever, chills or weakness No chest pain, palpitation No shortness of breath or coughing No abdominal pain, nausea or vomiting No urinary symptoms Open wound at the base of his right foot Physical Exam Vital Signs: Vital Signs: Last Vital Signs Temp 96.9 F 05/25/22 07:08 Pulse 92 05/25/22 07:08 Resp 20 05/25/22 07:08 BP 149/86 H 05/25/22 07:08 Pulse Ox 96 05/25/22 07:08 O2 Del Method 05/25/22 07:08 O2 Flow Rate 5 05/23/22 23:48 BMI result Body Mass Index 27.3 Const: Other: Constitutional : Alert, oriented, not in distress Neck : Normal inspection, Supple Cardiovascular : RRR, no JVP, no lower extremity edema Respiratory : fair bilateral air entry, no crackles, wheezes or rhonchi Gastrointestinal: soft, lax, Normal bowel sounds, Non tender Skin : Warm, Dry Musculoskeletal, transmetatarsal amputation of left foot, right 2nd toe erythema with open wound at the base of it and increased dorsal collection with more drainage Neurological : Alert & oriented x3, No focal deficit , CN 2-12 within normal Objective Data Active Medications Acetaminophen (Acetaminophen 325 Mg Tablet) 650 mg PO Q6H PRN PRN Reason: Pain, Mild (Pain Scale 1-3) Last Admin: 05/24/22 15:31 Dose: 650 mg Documented By: NHI Amlodipine Besylate (Amlodipine Besylate 10 Mg Tablet) 10 mg PO DAILY [facility]; Protocol Last Admin: 05/25/22 08:33 Dose: 10 mg Documented By: PAULO Apixaban (Apixaban 5 Mg Tablet) 5 mg PO BID [facility] Last Admin: 05/24/22 21:09 Dose: 5 mg Documented By: NHI Atorvastatin Calcium (Atorvastatin Calcium 40 Mg Tablet) 40 mg PO DAILY [facility] Last Admin: 05/25/22 08:32 Dose: 40 mg Documented By: PAULO Dextrose (Dextrose 50 % 25 Gm/50 Ml Syringe) 25 gm IVPUSH Q15M PRN; Protocol PRN Reason: per Hypoglycemia Standing Ord. Docusate Sodium (Docusate Sodium 100 Mg Capsule) 100 mg PO DAILY PRN PRN Reason: Constipation Last Admin: 05/24/22 10:21 Dose: 100 mg Documented By: MADINA Docusate Sodium (Docusate Sodium 100 Mg Capsule) 100 mg PO BID [facility] Last Admin: 05/25/22 08:33 Dose: 100 mg Documented By: PAULO Ferrous Sulfate (Ferrous Sulfate 324 Mg Tablet.Dr) 324 mg PO BID [facility] Last Admin: 05/23/22 20:26 Dose: 324 mg Documented By: NHI Glucose (Glucose Gel 15 Gm Gel..Gram.) 15 gm PO Q15M PRN; Protocol PRN Reason: per Hypoglycemia Standing Ord. Piperacillin Sod/Tazobactam (Sod 3.375 gm/ Sodium Chloride) 50 mls @ 100 mls/hr IV Q6H [facility] Last Infusion: 05/25/22 06:47 Dose: 0 mls/hr Documented By: CHRIS Vancomycin HCl 1,250 mg/ (Sodium Chloride) 250 mls @ 166.667 mls/hr IV Q12H [facility] Last Admin: 05/25/22 08:33 Dose: 166.66 mls/hr Documented By: PAULO Ferric Sodium Gluconate Complex 125 mg/ Sodium Chloride 110 mls @ 100 mls/hr IV DAILY [facility] Stop: 05/26/22 10:05 Last Infusion: 05/24/22 15:54 Dose: 0 mls/hr Documented By: MADINA Insulin Glargine (Insulin Glargine,Hum.Rec.Anlog 100 Unit/Ml 10 Ml Vial) 30 unit SUBCUT BID [facility] Last Admin: 05/24/22 21:08 Dose: 30 unit Documented By: NHI Insulin Human Lispro (Insulin Lispro 100 Unit/Ml 3 Ml Vial) 0 unit SUBCUT QIDACHS [facility]; Protocol Last Admin: 05/25/22 08:18 Dose: Not Given Documented By: PAULO Non-Admin Reason: No Insulin Coverage Insulin Human Lispro (Insulin Lispro 100 Unit/Ml 3 Ml Vial) 4 unit SUBCUT QIDACHS [facility] Last Admin: 05/25/22 08:19 Dose: Not Given Documented By: PAULO Non-Admin Reason: No Insulin Coverage Lisinopril (Lisinopril 20 Mg Tablet) 20 mg PO DAILY [facility]; Protocol Last Admin: 05/25/22 08:32 Dose: 20 mg Documented By: PAULO Omeprazole (Omeprazole 40 Mg Capsule.Dr) 40 mg PO DAILY@0630 [facility] Last Admin: 05/25/22 06:14 Dose: Not Given Documented By: CHRIS Non-Admin Reason: NPO Ondansetron HCl (Ondansetron Hcl 4 Mg/2 Ml Vial) 4 mg IVPUSH Q8H PRN PRN Reason: Nausea and Vomiting Oxycodone HCl (Oxycodone Hcl Immed Release 5 Mg Tablet) 5 mg PO Q6H PRN PRN Reason: Pain, Severe (Pain Scale 7-10) Pharmacy Consult (Consult Rx Perform Med Rec) 1 each MISCELLANE ONCE PRN PRN Reason: Consult order Pharmacy Consult (Consult Rx Vancomycin Dosing) 1 each MISCELLANE DAILY PRN PRN Reason: Consult order Senna (Sennosides 8.6 Mg Tablet) 17.2 mg PO BEDTIME [facility] Last Admin: 05/24/22 21:09 Dose: 17.2 mg Documented By: NHI Sodium Chloride (0.9 % Sodium Chloride Flush 3 Ml Syringe) 3 ml IVFLUSH QSHIFT [facility] Last Admin: 05/25/22 08:32 Dose: 3 ml Documented By: PAULO Trazodone HCl (Trazodone Hcl 25 Mg Halftab) 25 mg PO BEDTIME PRN PRN Reason: Insomnia Last Admin: 05/24/22 21:09 Dose: 25 mg Documented By: NHI Labs CBC & Chem 7: 05/25/22 05:51 05/25/22 08:10 Labs: Laboratory Results - last 24 hr 05/21/22 05/24/22 05/24/22 15:48 11:04 15:21 MCV MCH MCHC RDW Plt Count MPV Absolute Nucleated RBC Nucleated RBC % (auto) Estim Creat Clear Calc Estimated GFR POC Glucose 183 H 180 H Vancomycin Trough Blood Type A Positive Antibody Screen NEGATIVE Crossmatch See Detail 05/24/22 05/24/22 05/25/22 19:39 21:00 05:51 MCV MCH MCHC RDW Plt Count MPV Absolute Nucleated RBC Nucleated RBC % (auto) Estim Creat Clear Calc Estimated GFR POC Glucose 223 H 198 H Vancomycin Trough 16.2 Blood Type Antibody Screen Crossmatch 05/25/22 05/25/22 05/25/22 05:51 07:08 08:10 MCV 79.9 L MCH 25.5 L MCHC 31.9 RDW 16.5 H Plt Count 544 H MPV 8.8 L Absolute Nucleated RBC 0.000 Nucleated RBC % (auto) 0.0 Estim Creat Clear Calc 113.7 Estimated GFR > 60 POC Glucose 114 Vancomycin Trough Blood Type Antibody Screen Crossmatch Assessment and Plan (1) Diabetic foot ulcer: Status: Acute (2) Osteomyelitis: Status: Acute Plan 51-year-old male with past medical history of diabetes, with apparent noncompliant with his insulin presents to the hospital with diabetic foot ulcer # Right diabetic foot wound # Right 2nd toe base osteomyelitis in the setting of poorly controlled diabetes wound at the base of 2nd and 3rd toes of the right foot x-ray shows evidence of osteomyelitis negative blood and wound cultures Continue IV antibiotics surgical team input appreciated, plan for examination under OA and consider amputation Discussed with Infectious Disease, consider daptomycin 1 g daily for total of [address] PICC line once blood cultures by Thursday # Type 2 diabetes with hyperglycemia better control HbA1c of 10.4 continue insuline glargine to 30 units bid low-dose sliding scale insulin diabetic diet # Acute on chronic anemia anemia of chronic disease with recurrent episodes of osteomyelitis, no Evidence of blood loss improved to 8 after transfusion, total of 2 since admission Iron deficiency per iron studies continue oral iron, increase to b.i.d. needs outpatient evaluation with upper and lower endoscopies # hypertension continue home antihypertensives # history of PAD, angiography on apixaban DVT prophylaxis Apixaban Given osteomyelitis and need for IV antibiotics in surgery intervention patient will require overnight hospital stay for further management to prevent possible decompensation to sepsis Quality Stroke Does the patient have a stroke diagnosis?: No VTE Prior VTE?: No VTE Risk Level:: Medical - moderate - high VTE Device Contraindication: Treatment Not Indicated VTE Drug Contraindication: N/A - Med Ordered
--- NOTE | 2022-05-25 10:56 | HO.ANESPROP2 ---
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) DMII (diabetes mellitus, type 2) (Acute) Thrombocytosis (Acute) Osteomyelitis (Acute) Iron deficiency (Acute) Diabetic foot ulcer (Acute) Cellulitis of foot (Acute) Hyperglycemia (Acute) Hypertension (Acute) Past Medical History Medical History Anemia Anemia of chronic disease Bacteremia Diabetes Diabetic foot ulcer Diabetic foot ulcer Gangrene of toe of left foot GERD (gastroesophageal reflux disease) History of angiography Open wound Orthostatic hypotension PAD (peripheral artery disease) Peripheral vascular disease PICC (peripherally inserted central catheter) in place Family History Family History Other Diabetes Family history of problems with anesthesia: No Surgical History Surgical History Amputated toe of right foot (11/05/20) History of Problems with Anesthesia: No (Just conscious sedation for angioplasty) Social History Social History Household Members: Spouse and Children Housing: Apartment Do you presently have visiting nurse or other home services: No Alcohol intake: current Alcohol intake frequency: a few times a month Patient Tobacco Use Status: Former Tobacco user Tobacco use type: Cigarette Years Smoked: 15 e-Cigarette/Vaping Use: Never Used Second Hand Smoke Exposure: No service: No Current occupational status: unemployed Meds Allergies Allergy/AdvReac Type Severity Reaction Status Date / Time No Known Allergies Allergy Verified 03/04/22 13:01 Active Medications: Current Medications Acetaminophen (Acetaminophen 325 Mg Tablet) 650 mg PO Q6H PRN PRN Reason: Pain, Mild (Pain Scale 1-3) Last Admin: 05/24/22 15:31 Dose: 650 mg Amlodipine Besylate (Amlodipine Besylate 10 Mg Tablet) 10 mg PO DAILY [facility]; Protocol Last Admin: 05/25/22 08:33 Dose: 10 mg Apixaban (Apixaban 5 Mg Tablet) 5 mg PO BID [facility] Last Admin: 05/24/22 21:09 Dose: 5 mg Atorvastatin Calcium (Atorvastatin Calcium 40 Mg Tablet) 40 mg PO DAILY [facility] Last Admin: 05/25/22 08:32 Dose: 40 mg Dextrose (Dextrose 50 % 25 Gm/50 Ml Syringe) 25 gm IVPUSH Q15M PRN; Protocol PRN Reason: per Hypoglycemia Standing Ord. Docusate Sodium (Docusate Sodium 100 Mg Capsule) 100 mg PO DAILY PRN PRN Reason: Constipation Last Admin: 05/24/22 10:21 Dose: 100 mg Docusate Sodium (Docusate Sodium 100 Mg Capsule) 100 mg PO BID [facility] Last Admin: 05/25/22 08:33 Dose: 100 mg Ferrous Sulfate (Ferrous Sulfate 324 Mg Tablet.Dr) 324 mg PO BID [facility] Last Admin: 05/23/22 20:26 Dose: 324 mg Glucose (Glucose Gel 15 Gm Gel..Gram.) 15 gm PO Q15M PRN; Protocol PRN Reason: per Hypoglycemia Standing Ord. Piperacillin Sod/Tazobactam (Sod 3.375 gm/ Sodium Chloride) 50 mls @ 100 mls/hr IV Q6H [facility] Last Infusion: 05/25/22 06:47 Dose: Infused Vancomycin HCl 1,250 mg/ (Sodium Chloride) 250 mls @ 166.667 mls/hr IV Q12H [facility] Last Admin: 05/25/22 08:33 Dose: 166.66 mls/hr Ferric Sodium Gluconate Complex 125 mg/ Sodium Chloride 110 mls @ 100 mls/hr IV DAILY [facility] Stop: 05/26/22 10:05 Last Infusion: 05/24/22 15:54 Dose: Infused Insulin Glargine (Insulin Glargine,Hum.Rec.Anlog 100 Unit/Ml 10 Ml Vial) 30 unit SUBCUT BID [facility] Last Admin: 05/24/22 21:08 Dose: 30 unit Insulin Human Lispro (Insulin Lispro 100 Unit/Ml 3 Ml Vial) 0 unit SUBCUT QIDACHS [facility]; Protocol Last Admin: 05/25/22 08:18 Dose: Not Given Insulin Human Lispro (Insulin Lispro 100 Unit/Ml 3 Ml Vial) 4 unit SUBCUT QIDACHS [facility] Last Admin: 05/25/22 08:19 Dose: Not Given Lisinopril (Lisinopril 20 Mg Tablet) 20 mg PO DAILY [facility]; Protocol Last Admin: 05/25/22 08:32 Dose: 20 mg Omeprazole (Omeprazole 40 Mg Capsule.Dr) 40 mg PO DAILY@0630 [facility] Last Admin: 05/25/22 06:14 Dose: Not Given Ondansetron HCl (Ondansetron Hcl 4 Mg/2 Ml Vial) 4 mg IVPUSH Q8H PRN PRN Reason: Nausea and Vomiting Oxycodone HCl (Oxycodone Hcl Immed Release 5 Mg Tablet) 5 mg PO Q6H PRN PRN Reason: Pain, Severe (Pain Scale 7-10) Pharmacy Consult (Consult Rx Perform Med Rec) 1 each MISCELLANE ONCE PRN PRN Reason: Consult order Pharmacy Consult (Consult Rx Vancomycin Dosing) 1 each MISCELLANE DAILY PRN PRN Reason: Consult order Senna (Sennosides 8.6 Mg Tablet) 17.2 mg PO BEDTIME [facility] Last Admin: 05/24/22 21:09 Dose: 17.2 mg Sodium Chloride (0.9 % Sodium Chloride Flush 3 Ml Syringe) 3 ml IVFLUSH QSHIFT [facility] Last Admin: 05/25/22 08:32 Dose: 3 ml Trazodone HCl (Trazodone Hcl 25 Mg Halftab) 25 mg PO BEDTIME PRN PRN Reason: Insomnia Last Admin: 05/24/22 21:09 Dose: 25 mg Home Medications Medication Instructions Recorded Confirmed Last Taken Type blood sugar diagnostic #10 ea 11/20/20 12/12/21 Unknown History pen needle, diabetic 32 gauge x #50 ea 11/20/20 12/12/21 Unknown History atorvastatin 40 mg tablet 1 tab PO DAILY 05/21/22 05/21/22 Unknown History insulin glargine 100 unit/mL (3 20 unit subcut BID 05/21/22 05/21/22 Unknown History mL) subcutaneous pen (Basaglar KwikPen U-100 Insulin) Exam Exam Date and Time: May 25, 2022 1056 Height,Weight and Vital Signs: Height 5 ft 8 in Weight 81.647 kg Last Vital Signs yTemp 96.9 F 08/28/22 07:08 Pulse 92 05/25/22 07:08 Resp 20 05/25/22 07:08 BP 149/86 H 05/25/22 07:08 Pulse Ox 96 05/25/22 07:08 O2 Del Method 05/25/22 07:08 O2 Flow Rate 5 05/23/22 23:48 Pertinent Lab Results Pertinent Lab Results: Laboratory Tests 05/21/22 05/21/22 05/21/22 15:48 15:49 15:49 WBC RBC Hgb Hct MCV MCH MCHC RDW Plt Count MPV Immature Gran % (Auto) Neut % (Auto) Lymph % (Auto) [place] % (Auto) Eos % (Auto) Baso % (Auto) Lymph # (Auto) [place] # (Auto) Eos # (Auto) Baso # (Auto) Abs Immat Gran (auto) Absolute Neuts (auto) Absolute Nucleated RBC Nucleated RBC % (auto) PT INR Sodium 132 L Potassium 4.6 Chloride 97 Carbon Dioxide 22 Anion Gap 18 BUN 11 Creatinine 1.31 Estim Creat Clear Calc 65.9 Estimated GFR 58 POC Glucose Random Glucose 314 H Estimat Average Glucose Hemoglobin A1c % Lactic Acid Calcium 8.4 Iron TIBC % Saturation Unsat Iron Binding Ferritin Total Bilirubin 0.5 Direct Bilirubin 0.3 AST 12 ALT 12 Alkaline Phosphatase 110 Troponin I High Sens Total Protein 7.2 Albumin 3.2 L Vitamin B12 Folate Stool Occult Blood Vancomycin Trough Urine Opiates Screen Urine Fentanyl Screen Ur Barbiturates Screen Ur Phencyclidine Scrn Ur Amphetamines Screen U Benzodiazepines Scrn Urine Cocaine Screen U Marijuana (THC) Screen COVID-19 (DELIA) Negative COVID-19 Clin Com See Note Blood Type A Positive Antibody Screen NEGATIVE Crossmatch See Detail 05/21/22 05/21/22 05/21/22 15:49 15:50 15:50 WBC 16.3 H RBC 2.75 L Hgb 6.8 L* Hct 21.3 L MCV 77.5 L MCH 24.7 L MCHC 31.9 RDW 15.5 Plt Count 643 H MPV 9.2 L Immature Gran % (Auto) 0.7 H Neut % (Auto) 84.1 H Lymph % (Auto) 6.5 L [place] % (Auto) 7.0 Eos % (Auto) 1.3 Baso % (Auto) 0.4 Lymph # (Auto) 1.1 L [place] # (Auto) 1.1 Eos # (Auto) 0.2 Baso # (Auto) 0.1 Abs Immat Gran (auto) 0.11 H Absolute Neuts (auto) 13.7 H Absolute Nucleated RBC 0.000 Nucleated RBC % (auto) 0.0 PT 14.9 H INR 1.3 H Sodium Potassium Chloride Carbon Dioxide Anion Gap BUN Creatinine Estim Creat Clear Calc Estimated GFR POC Glucose Random Glucose Estimat Average Glucose Hemoglobin A1c % Lactic Acid Calcium Iron TIBC % Saturation Unsat Iron Binding Ferritin Total Bilirubin Direct Bilirubin AST ALT Alkaline Phosphatase Troponin I High Sens 18.0 Total Protein Albumin Vitamin B12 Folate Stool Occult Blood Vancomycin Trough Urine Opiates Screen Urine Fentanyl Screen Ur Barbiturates Screen Ur Phencyclidine Scrn Ur Amphetamines Screen U Benzodiazepines Scrn Urine Cocaine Screen U Marijuana (THC) Screen COVID-19 (DELIA) COVID-19 [employer] Blood Type Antibody Screen Crossmatch 05/21/22 05/21/22 05/21/22 15:50 17:32 17:32 WBC RBC Hgb Hct MCV MCH MCHC RDW Plt Count MPV Immature Gran % (Auto) Neut % (Auto) Lymph % (Auto) [place] % (Auto) Eos % (Auto) Baso % (Auto) Lymph # (Auto) [place] # (Auto) Eos # (Auto) Baso # (Auto) Abs Immat Gran (auto) Absolute Neuts (auto) Absolute Nucleated RBC Nucleated RBC % (auto) PT 14.7 H INR 1.3 H Sodium Potassium Chloride Carbon Dioxide Anion Gap BUN Creatinine Estim Creat Clear Calc Estimated GFR POC Glucose Random Glucose Estimat Average Glucose Hemoglobin A1c % Lactic Acid 1.0 Calcium Iron TIBC % Saturation Unsat Iron Binding Ferritin Total Bilirubin Direct Bilirubin AST ALT Alkaline Phosphatase Troponin I High Sens Total Protein Albumin Vitamin B12 Folate Stool Occult Blood NEGATIVE Vancomycin Trough Urine Opiates Screen Urine Fentanyl Screen Ur Barbiturates Screen Ur Phencyclidine Scrn Ur Amphetamines Screen U Benzodiazepines Scrn Urine Cocaine Screen U Marijuana (THC) Screen COVID-19 (DELIA) COVID-19 [employer] Com Blood Type Antibody Screen Crossmatch 05/21/22 05/21/22 05/21/22 20:11 20:11 20:45 WBC RBC Hgb Hct MCV MCH MCHC RDW Plt Count MPV Immature Gran % (Auto) Neut % (Auto) Lymph % (Auto) [place] % (Auto) Eos % (Auto) Baso % (Auto) Lymph # (Auto) [place] # (Auto) Eos # (Auto) Baso # (Auto) Abs Immat Gran (auto) Absolute Neuts (auto) Absolute Nucleated RBC Nucleated RBC % (auto) PT INR Sodium Potassium Chloride Carbon Dioxide Anion Gap BUN Creatinine Estim Creat Clear Calc Estimated GFR POC Glucose 220 H Random Glucose Estimat Average Glucose Hemoglobin A1c % Lactic Acid Calcium Iron TIBC % Saturation Unsat Iron Binding Ferritin 43 Total Bilirubin Direct Bilirubin AST ALT Alkaline Phosphatase Troponin I High Sens Total Protein Albumin Vitamin B12 929 H Folate 12.6 Stool Occult Blood Vancomycin Trough Urine Opiates Screen Urine Fentanyl Screen Ur Barbiturates Screen Ur Phencyclidine Scrn Ur Amphetamines Screen U Benzodiazepines Scrn Urine Cocaine Screen U Marijuana (THC) Screen COVID-19 (DELIA) COVID-19 Clin Com Blood Type Antibody Screen Crossmatch 05/22/22 05/22/22 05/22/22 06:32 06:32 06:32 WBC 10.8 RBC 2.71 L Hgb 6.8 L* Hct 21.6 L MCV 79.7 L MCH 25.1 L MCHC 31.5 RDW 16.0 Plt Count 550 H MPV 9.3 L Immature Gran % (Auto) 0.6 H Neut % (Auto) 70.1 Lymph % (Auto) 15.4 L [place] % (Auto) 11.3 H Eos % (Auto) 2.1 Baso % (Auto) 0.5 Lymph # (Auto) 1.7 [place] # (Auto) 1.2 Eos # (Auto) 0.2 Baso # (Auto) 0.1 Abs Immat Gran (auto) 0.06 H Absolute Neuts (auto) 7.5 Absolute Nucleated RBC 0.000 Nucleated RBC % (auto) 0.0 PT INR Sodium 134 L Potassium 4.4 Chloride 106 Carbon Dioxide 20 L Anion Gap 12 BUN 10 Creatinine 0.99 Estim Creat Clear Calc 87.3 Estimated GFR > 60 POC Glucose Random Glucose 244 H Estimat Average Glucose 252 Hemoglobin A1c % 10.4 Lactic Acid Calcium 7.5 L D Iron 30 L TIBC 245 % Saturation 12 L Unsat Iron Binding 215 Ferritin Total Bilirubin Direct Bilirubin AST ALT Alkaline Phosphatase Troponin I High Sens Total Protein Albumin Vitamin B12 Folate Stool Occult Blood Vancomycin Trough Urine Opiates Screen Urine Fentanyl Screen Ur Barbiturates Screen Ur Phencyclidine Scrn Ur Amphetamines Screen U Benzodiazepines Scrn Urine Cocaine Screen U Marijuana (THC) Screen COVID-19 (DELIA) COVID-19 [employer] Com Blood Type Antibody Screen Crossmatch 05/22/22 05/22/22 05/22/22 07:04 12:13 16:37 WBC RBC Hgb Hct MCV MCH MCHC RDW Plt Count MPV Immature Gran % (Auto) Neut % (Auto) Lymph % (Auto) [place] % (Auto) Eos % (Auto) Baso % (Auto) Lymph # (Auto) [place] # (Auto) Eos # (Auto) Baso # (Auto) Abs Immat Gran (auto) Absolute Neuts (auto) Absolute Nucleated RBC Nucleated RBC % (auto) PT INR Sodium Potassium Chloride Carbon Dioxide Anion Gap BUN Creatinine Estim Creat Clear Calc Estimated GFR POC Glucose 237 H 292 H 299 H Random Glucose Estimat Average Glucose Hemoglobin A1c % Lactic Acid Calcium Iron TIBC % Saturation Unsat Iron Binding Ferritin Total Bilirubin Direct Bilirubin AST ALT Alkaline Phosphatase Troponin I High Sens Total Protein Albumin Vitamin B12 Folate Stool Occult Blood Vancomycin Trough Urine Opiates Screen Urine Fentanyl Screen Ur Barbiturates Screen Ur Phencyclidine Scrn Ur Amphetamines Screen U Benzodiazepines Scrn Urine Cocaine Screen U Marijuana (THC) Screen COVID-19 (DELIA) COVID-19 [employer] Com Blood Type Antibody Screen Crossmatch 05/22/22 05/23/22 05/23/22 19:57 00:11 05:41 WBC RBC Hgb Hct MCV MCH MCHC RDW Plt Count MPV Immature Gran % (Auto) Neut % (Auto) Lymph % (Auto) [place] % (Auto) Eos % (Auto) Baso % (Auto) Lymph # (Auto) [place] # (Auto) Eos # (Auto) Baso # (Auto) Abs Immat Gran (auto) Absolute Neuts (auto) Absolute Nucleated RBC Nucleated RBC % (auto) PT INR Sodium Potassium Chloride Carbon Dioxide Anion Gap BUN Creatinine Estim Creat Clear Calc Estimated GFR POC Glucose 218 H Random Glucose Estimat Average Glucose Hemoglobin A1c % Lactic Acid Calcium Iron TIBC % Saturation Unsat Iron Binding Ferritin Total Bilirubin Direct Bilirubin AST ALT Alkaline Phosphatase Troponin I High Sens Total Protein Albumin Vitamin B12 Folate Stool Occult Blood Vancomycin Trough 11.8 Urine Opiates Screen Not Detected Urine Fentanyl Screen Not Detected Ur Barbiturates Screen Not Detected Ur Phencyclidine Scrn Not Detected Ur Amphetamines Screen Not Detected U Benzodiazepines Scrn Not Detected Urine Cocaine Screen POSITIVE H U Marijuana (THC) Screen Not Detected COVID-19 (DELIA) COVID-19 Clin Com Blood Type Antibody Screen Crossmatch 05/23/22 05/23/22 05/23/22 05:41 05:41 07:27 WBC 11.6 H RBC 2.81 L Hgb 7.1 L Hct 22.7 L MCV 80.8 MCH 25.3 L MCHC 31.3 RDW 16.0 Plt Count 580 H MPV 9.0 L Immature Gran % (Auto) Neut % (Auto) Lymph % (Auto) [place] % (Auto) Eos % (Auto) Baso % (Auto) Lymph # (Auto) [place] # (Auto) Eos # (Auto) Baso # (Auto) Abs Immat Gran (auto) Absolute Neuts (auto) Absolute Nucleated RBC 0.000 Nucleated RBC % (auto) 0.0 PT INR Sodium 134 L Potassium 4.5 Chloride 106 Carbon Dioxide 20 L Anion Gap 13 BUN 10 Creatinine 1.08 Estim Creat Clear Calc 80.0 Estimated GFR > 60 POC Glucose 232 H Random Glucose 238 H Estimat Average Glucose Hemoglobin A1c % Lactic Acid Calcium 7.8 L Iron TIBC % Saturation Unsat Iron Binding Ferritin Total Bilirubin Direct Bilirubin AST ALT Alkaline Phosphatase Troponin I High Sens Total Protein Albumin Vitamin B12 Folate Stool Occult Blood Vancomycin Trough Urine Opiates Screen Urine Fentanyl Screen Ur Barbiturates Screen Ur Phencyclidine Scrn Ur Amphetamines Screen U Benzodiazepines Scrn Urine Cocaine Screen U Marijuana (THC) Screen COVID-19 ([facility]IA) COVID-19 Clin Com Blood Type Antibody Screen Crossmatch 05/23/22 05/23/22 05/23/22 11:05 16:17 19:17 WBC RBC Hgb Hct MCV MCH MCHC RDW Plt Count MPV Immature Gran % (Auto) Neut % (Auto) Lymph % (Auto) [place] % (Auto) Eos % (Auto) Baso % (Auto) Lymph # (Auto) [place] # (Auto) Eos # (Auto) Baso # (Auto) Abs Immat Gran (auto) Absolute Neuts (auto) Absolute Nucleated RBC Nucleated RBC % (auto) PT INR Sodium Potassium Chloride Carbon Dioxide Anion Gap BUN Creatinine Estim Creat Clear Calc Estimated GFR POC Glucose 252 H 206 H 193 H Random Glucose Estimat Average Glucose Hemoglobin A1c % Lactic Acid Calcium Iron TIBC % Saturation Unsat Iron Binding Ferritin Total Bilirubin Direct Bilirubin AST ALT Alkaline Phosphatase Troponin I High Sens Total Protein Albumin Vitamin B12 Folate Stool Occult Blood Vancomycin Trough Urine Opiates Screen Urine Fentanyl Screen Ur Barbiturates Screen Ur Phencyclidine Scrn Ur Amphetamines Screen U Benzodiazepines Scrn Urine Cocaine Screen U Marijuana (THC) Screen COVID-19 (DELIA) COVID-19 Clin Com Blood Type Antibody Screen Crossmatch 05/24/22 05/24/22 05/24/22 05:49 05:49 05:49 WBC 11.1 H RBC 2.71 L Hgb 6.9 L* Hct 21.5 L MCV 79.3 L MCH 25.5 L MCHC 32.1 RDW 16.0 Plt Count 564 H MPV 9.1 L Immature Gran % (Auto) Neut % (Auto) Lymph % (Auto) [place] % (Auto) Eos % (Auto) Baso % (Auto) Lymph # (Auto) [place] # (Auto) Eos # (Auto) Baso # (Auto) Abs Immat Gran (auto) Absolute Neuts (auto) Absolute Nucleated RBC 0.000 Nucleated RBC % (auto) 0.0 PT INR Sodium 134 L Potassium 4.4 Chloride 103 Carbon Dioxide 21 L Anion Gap 14 BUN 9 Creatinine 0.95 Estim Creat Clear Calc 91.0 Estimated GFR > 60 POC Glucose Random Glucose 282 H Estimat Average Glucose Hemoglobin A1c % Lactic Acid Calcium 7.9 L Iron TIBC % Saturation Unsat Iron Binding Ferritin Total Bilirubin Direct Bilirubin AST ALT Alkaline Phosphatase Troponin I High Sens Total Protein Albumin Vitamin B12 Folate Stool Occult Blood Vancomycin Trough 11.4 Urine Opiates Screen Urine Fentanyl Screen Ur Barbiturates Screen Ur Phencyclidine Scrn Ur Amphetamines Screen U Benzodiazepines Scrn Urine Cocaine Screen U Marijuana (THC) Screen COVID-19 (DELIA) COVID-19 Clin Com Blood Type Antibody Screen Crossmatch 05/24/22 05/24/22 05/24/22 07:02 11:04 15:21 WBC RBC Hgb Hct MCV MCH MCHC RDW Plt Count MPV Immature Gran % (Auto) Neut % (Auto) Lymph % (Auto) [place] % (Auto) Eos % (Auto) Baso % (Auto) Lymph # (Auto) [place] # (Auto) Eos # (Auto) Baso # (Auto) Abs Immat Gran (auto) Absolute Neuts (auto) Absolute Nucleated RBC Nucleated RBC % (auto) PT INR Sodium Potassium Chloride Carbon Dioxide Anion Gap BUN Creatinine Estim Creat Clear Calc Estimated GFR POC Glucose 254 H 183 H 180 H Random Glucose Estimat Average Glucose Hemoglobin A1c % Lactic Acid Calcium Iron TIBC % Saturation Unsat Iron Binding Ferritin Total Bilirubin Direct Bilirubin AST ALT Alkaline Phosphatase Troponin I High Sens Total Protein Albumin Vitamin B12 Folate Stool Occult Blood Vancomycin Trough Urine Opiates Screen Urine Fentanyl Screen Ur Barbiturates Screen Ur Phencyclidine Scrn Ur Amphetamines Screen U Benzodiazepines Scrn Urine Cocaine Screen U Marijuana (THC) Screen COVID-19 ([facility]IA) COVID-19 Clin Com Blood Type Antibody Screen Crossmatch 05/24/22 05/24/22 05/25/22 19:39 21:00 05:51 WBC RBC Hgb Hct MCV MCH MCHC RDW Plt Count MPV Immature Gran % (Auto) Neut % (Auto) Lymph % (Auto) [place] % (Auto) Eos % (Auto) Baso % (Auto) Lymph # (Auto) [place] # (Auto) Eos # (Auto) Baso # (Auto) Abs Immat Gran (auto) Absolute Neuts (auto) Absolute Nucleated RBC Nucleated RBC % (auto) PT INR Sodium Potassium Chloride Carbon Dioxide Anion Gap BUN Creatinine Estim Creat Clear Calc Estimated GFR POC Glucose 223 H 198 H Random Glucose Estimat Average Glucose Hemoglobin A1c % Lactic Acid Calcium Iron TIBC % Saturation Unsat Iron Binding Ferritin Total Bilirubin Direct Bilirubin AST ALT Alkaline Phosphatase Troponin I High Sens Total Protein Albumin Vitamin B12 Folate Stool Occult Blood Vancomycin Trough 16.2 Urine Opiates Screen Urine Fentanyl Screen Ur Barbiturates Screen Ur Phencyclidine Scrn Ur Amphetamines Screen U Benzodiazepines Scrn Urine Cocaine Screen U Marijuana (THC) Screen COVID-19 ([facility]IA) COVID-19 Clin Com Blood Type Antibody Screen Crossmatch 05/25/22 05/25/22 05/25/22 05:51 07:08 08:10 WBC 10.6 RBC 3.14 L Hgb 8.0 L Hct 25.1 L MCV 79.9 L MCH 25.5 L MCHC 31.9 RDW 16.5 H Plt Count 544 H MPV 8.8 L Immature Gran % (Auto) Neut % (Auto) Lymph % (Auto) [place] % (Auto) Eos % (Auto) Baso % (Auto) Lymph # (Auto) [place] # (Auto) Eos # (Auto) Baso # (Auto) Abs Immat Gran (auto) Absolute Neuts (auto) Absolute Nucleated RBC 0.000 Nucleated RBC % (auto) 0.0 PT INR Sodium Potassium Chloride Carbon Dioxide Anion Gap BUN Creatinine 0.76 Estim Creat Clear Calc 113.7 Estimated GFR > 60 POC Glucose 114 Random Glucose Estimat Average Glucose Hemoglobin A1c % Lactic Acid Calcium Iron TIBC % Saturation Unsat Iron Binding Ferritin Total Bilirubin Direct Bilirubin AST ALT Alkaline Phosphatase Troponin I High Sens Total Protein Albumin Vitamin B12 Folate Stool Occult Blood Vancomycin Trough Urine Opiates Screen Urine Fentanyl Screen Ur Barbiturates Screen Ur Phencyclidine Scrn Ur Amphetamines Screen U Benzodiazepines Scrn Urine Cocaine Screen U Marijuana (THC) Screen COVID-19 (DELIA) COVID-19 Clin Com Blood Type Antibody Screen Crossmatch Airway Mallampati Class: II TM Dist: >3cm Neck ROM: Full Adult Head Mouth w/Numbe Teeth: 1. 2. 3. Loose/Missing/Broken Teeth: Yes (multiple loose teeth esprcially left lower inciser) Heart: RRR Lungs: CTA Assessment and Plan Assessment Anesthesia Assessment: Anesthesia Plan Discussed and Chart Reviewed Final Anesthetic Review Family History of Problems with Anesthesia: No History of Problems with Anesthesia: No (Just conscious sedation for angioplasty) NPO: Yes ASA Class: III and Emergency Final Preanesthetic Review: No Changes in Pt Med Stat, Meds/Allgs Chart Reviewed and Consent Obtained/Reviewed Patient Risk: Intermediate Procedure Risk: Low Anesthetic Plan Anesthetic Plan: GA Disposition: Standard PACU
[2022-05-25 11:02] LABS: Glucose, Whole Blood 111 mg/dL (60-115)
--- NOTE | 2022-05-25 12:31 | P.OP_ITS ---
Operative Note Operative Note Date of Service: 05/25/22 Narrative: pre op - right foot diabetic infection post op- same procedure was - I and D of right foot abscess and infection Mirlande BURR with LMA pt is a 51 year old male with diabetic foot infection and undrained collection - has osteo in rajani right foot and has a TMA on the left side Pt was brought to the OR and right foot prepped and draped in standard fashion with betadine. Pt put to sleep and LMA insterted taking care to protect his loose teeth the dorsal aspect of [facility] second toe at [facility] base was opened up with scalpel and cautery and liquid murky material drained - not true pus. this was cultured. the area here tracked to the plantar foot wound and the toes plantar aspect. these areas were opened with a clamp and irrigated and then packed with nugauze dressing packing. the area was wraped and secured. cx sent no tissue for pathology. pt returned stable to recover with all instruments and sharp count correct.
[2022-05-25] MEDS: Sodium Ferric Gluconat/Sucrose 125 MG in 0.9 % Sodium Chloride 100 ML 100 MG IV (14:03)
[2022-05-25] MEDS: Insulin Lispro 100 UNIT/ML 3 ML VIAL SUBCUT ×4 (16:41→21:00)
[2022-05-25 16:42] LABS: Glucose, Whole Blood 280 mg/dL (60-115)
[2022-05-25 20:28] LABS: Glucose, Whole Blood 274 mg/dL (60-115)
[2022-05-25] MEDS: Sennosides 8.6 MG TABLET 17.2 MG PO (20:50)
[2022-05-25] MEDS: Insulin Glargine,Hum.rec.anlog 100 UNIT/ML 10 ML VIAL 30 UNIT SUBCUT (20:51)
[2022-05-25] MEDS: Apixaban 5 MG TABLET PO (20:51)
[2022-05-26 04:01] VITALS: BP 133/76; PULSE 95; RESP 17; TEMP 37.1; O2SAT 97
[2022-05-26] MEDS: Omeprazole 40 MG CAPSULE.DR PO (05:21)
[2022-05-26] MEDS: Piperacillin Sodium/Tazobactam 3.375 GM in 0.9 % Sodium Chloride 50 ML IV ×3 (05:21→20:49)
[2022-05-26 05:58] LABS: Hematocrit 24.1 % (42.0-52.0); Hemoglobin 7.6 g/dl (14.0-18.0); Mean Corpuscular HGB Conc 31.5 g/dl (31.0-36.0); Mean Corpuscular Hemoglobin 25.3 pg (27.0-33.0); Mean Corpuscular Volume 80.3 fL (80.0-98.0); Platelet Count 540 X10*3/uL (160-400); Red Cell Distribution Width 17.2 % (11.0-16.0); White Blood Count 13.1 X10*3/uL (4.8-10.8)
[2022-05-26 06:11] LABS: Anion Gap 14 (12-20); Blood Urea Nitrogen 10 mg/dL (9-16); Calcium 8.1 mg/dL (8.4-10.2); Carbon Dioxide 23 mmol/L (22-29); Chloride 105 mmol/L (96-108); Creatinine Clr Calc Pharmacy 105.4; Estimated Glomerular Filt Rate > 60; Glucose Random 122 mg/dL (60-115); Potassium 4.2 mmol/L (3.3-5.1); Sodium 138 mmol/L (135-145)
[2022-05-26 06:15] LABS: Vancomycin Trough 16.5 mcg/mL (10.0-20.0)
[2022-05-26 07:50] LABS: Glucose, Whole Blood 112 mg/dL (60-115)
[2022-05-26 08:32] VITALS: BP 156/91; PULSE 90; RESP 18; TEMP 37.2; O2SAT 93
--- NOTE | 2022-05-26 08:37 | P.PNGS_ITS ---
Subjective Subjective Date of Service: 05/26/22 Interval history: Underwent I and D yesterday in the OR cause of redness on the dorsal aspect of the foot No abscess fluid noted Patient says he is comfortable Physical Exam Vital Signs: Vital Signs: Last Vital Signs Temp 98.9 F 05/26/22 08:32 Pulse 90 05/26/22 08:32 Resp 18 05/26/22 08:32 BP 156/91 H 05/26/22 08:32 Pulse Ox 93 05/26/22 08:32 O2 Del Method 05/26/22 08:32 O2 Flow Rate 2 05/25/22 12:40 BMI result Body Mass Index 27.3 Const: General: comfortable and no acute distress Resp: Effort & Inspection: no cough Cardio: Rate: abnormal rate Extrem: Other: I&D site, dorsal and plantar aspect of the forefoot on the right with packings, clean, no pus, some induration and edema but no fluctuance Objective Data Active Medications Acetaminophen (Acetaminophen 325 Mg Tablet) 650 mg PO Q6H PRN PRN Reason: Pain, Mild (Pain Scale 1-3) Last Admin: 05/24/22 15:31 Dose: 650 mg Documented By: NHI Albuterol Sulfate (Albuterol Sulfate (0.083%) 2.5 Mg/3 Ml Vial.Neb) 2.5 mg INHALE ONCE PRN PRN Reason: Wheezing Amlodipine Besylate (Amlodipine Besylate 10 Mg Tablet) 10 mg PO DAILY [facility]; Protocol Last Admin: 05/25/22 08:33 Dose: 10 mg Documented By: PAULO Apixaban (Apixaban 5 Mg Tablet) 5 mg PO BID [facility] Last Admin: 05/25/22 20:51 Dose: 5 mg Documented By: NHI Atorvastatin Calcium (Atorvastatin Calcium 40 Mg Tablet) 40 mg PO DAILY [facility] Last Admin: 05/25/22 08:32 Dose: 40 mg Documented By: PAULO Dextrose (Dextrose 50 % 25 Gm/50 Ml Syringe) 25 gm IVPUSH Q15M PRN; Protocol PRN Reason: per Hypoglycemia Standing Ord. Docusate Sodium (Docusate Sodium 100 Mg Capsule) 100 mg PO DAILY PRN PRN Reason: Constipation Last Admin: 05/24/22 10:21 Dose: 100 mg Documented By: MADINA Docusate Sodium (Docusate Sodium 100 Mg Capsule) 100 mg PO BID [facility] Last Admin: 05/25/22 20:54 Dose: 100 mg Documented By: NHI Fentanyl (Fentanyl Citrate/Pf 100 Mcg/2 Ml Vial) 50 mcg IVPUSH Q5M PRN; Protocol PRN Reason: Pain, Severe (Pain Scale 7-10) Ferrous Sulfate (Ferrous Sulfate 324 Mg Tablet.Dr) 324 mg PO BID [facility] Last Admin: 05/23/22 20:26 Dose: 324 mg Documented By: NHI Glucose (Glucose Gel 15 Gm Gel..Gram.) 15 gm PO Q15M PRN; Protocol PRN Reason: per Hypoglycemia Standing Ord. Hydromorphone HCl (Hydromorphone Hcl 0.5 Mg/0.5 Ml Syringe) 0.5 mg IVPUSH Q5M PRN; Protocol PRN Reason: Pain, Severe (Pain Scale 7-10) Piperacillin Sod/Tazobactam (Sod 3.375 gm/ Sodium Chloride) 50 mls @ 100 mls/hr IV Q6H [facility] Last Infusion: 05/26/22 05:56 Dose: 100 mls/hr Documented By: RAVI Vancomycin HCl 1,250 mg/ (Sodium Chloride) 250 mls @ 166.667 mls/hr IV Q12H [facility] Last Infusion: 05/25/22 20:54 Dose: 0 mls/hr Documented By: NHI Ferric Sodium Gluconate Complex 125 mg/ Sodium Chloride 110 mls @ 100 mls/hr IV DAILY [facility] Stop: 05/26/22 10:05 Last Infusion: 05/26/22 05:18 Dose: 100 mls/hr Documented By: RAVI Promethazine HCl 12.5 mg/ (Sodium Chloride) 50.5 mls @ 202 mls/hr IV ONCE PRN PRN Reason: Nausea and Vomiting Insulin Glargine (Insulin Glargine,Hum.Rec.Anlog 100 Unit/Ml 10 Ml Vial) 30 unit SUBCUT BID [facility] Last Admin: 05/25/22 20:51 Dose: 30 unit Documented By: NHI Insulin Human Lispro (Insulin Lispro 100 Unit/Ml 3 Ml Vial) 0 unit SUBCUT QID ACHS [facility]; Protocol Last Admin: 05/25/22 20:51 Dose: 6 unit Documented By: NHI Insulin Human Lispro (Insulin Lispro 100 Unit/Ml 3 Ml Vial) 4 unit SUBCUT QIDACHS [facility] Last Admin: 05/25/22 21:00 Dose: 4 unit Documented By: NHI Lisinopril (Lisinopril 20 Mg Tablet) 20 mg PO DAILY [facility]; Protocol Last Admin: 05/25/22 08:32 Dose: 20 mg Documented By: PAULO Omeprazole (Omeprazole 40 Mg Capsule.Dr) 40 mg PO DAILY@0630 [facility] Last Admin: 05/26/22 05:21 Dose: 40 mg Documented By: RAVI Ondansetron HCl (Ondansetron Hcl 4 Mg/2 Ml Vial) 4 mg IVPUSH Q8H PRN PRN Reason: Nausea and Vomiting Oxycodone HCl (Oxycodone Hcl Immed Release 5 Mg Tablet) 5 mg PO Q6H PRN PRN Reason: Pain, Severe (Pain Scale 7-10) Oxycodone HCl (Oxycodone Hcl Immed Release 5 Mg Tablet) 10 mg PO ONCE PRN PRN Reason: Pain, Severe (Pain Scale 7-10) Pharmacy Consult (Consult Rx Perform Med Rec) 1 each MISCELLANE ONCE PRN PRN Reason: Consult order Pharmacy Consult (Consult Rx Vancomycin Dosing) 1 each MISCELLANE DAILY PRN PRN Reason: Consult order Senna (Sennosides 8.6 Mg Tablet) 17.2 mg PO BEDTIME [facility] Last Admin: 05/25/22 20:50 Dose: 17.2 mg Documented By: NHI Sodium Chloride (0.9 % Sodium Chloride Flush 3 Ml Syringe) 3 ml IVFLUSH QSHIFT [facility] Last Admin: 05/25/22 23:29 Dose: 3 ml Documented By: NHI Trazodone HCl (Trazodone Hcl 25 Mg Halftab) 25 mg PO BEDTIME PRN PRN Reason: Insomnia Last Admin: 05/24/22 21:09 Dose: 25 mg Documented By: NHI Labs CBC & Chem 7: 05/26/22 05:13 05/26/22 05:13 Labs: Laboratory Results - last 24 hr 05/25/22 05/25/22 05/25/22 10:58 16:33 20:24 MCV MCH MCHC RDW Plt Count MPV Absolute Nucleated RBC Nucleated RBC % (auto) Anion Gap Estim Creat Clear Calc Estimated GFR POC Glucose 111 280 H 274 H Random Glucose Calcium Vancomycin Trough 05/26/22 05/26/22 05/26/22 05:13 05:13 05:13 MCV 80.3 MCH 25.3 L MCHC 31.5 RDW 17.2 H Plt Count 540 H MPV 9.0 L Absolute Nucleated RBC 0.000 Nucleated RBC % (auto) 0.0 Anion Gap 14 Estim Creat Clear Calc 105.4 Estimated GFR > 60 POC Glucose Random Glucose 122 H D Calcium 8.1 L Vancomycin Trough 16.5 05/26/22 07:15 MCV MCH MCHC RDW Plt Count MPV Absolute Nucleated RBC Nucleated RBC % (auto) Anion Gap Estim Creat Clear Calc Estimated GFR POC Glucose 112 Random Glucose Calcium Vancomycin Trough Microbiology Microbiology Results: Microbiology 05/25/22 Unknown Gram Stain - Final Foot Right Procedures Date of Service Date of Service: 05/26/22 Progress Note: A&P Assessment and plan (1) Osteomyelitis: Status: Acute Assessment and Plan: Recommend MRI to rule out any other foci of osteomyelitis aside from the 2nd toe I changed his dressings and pulled out this packings Rewrapped foot with Kerlix Continue IV antibiotics Leg elevation Will follow Time Spent With Patient Time: Total time spent is greater than 50% in coordination of care (as documented) at patient's floor/unit and/or counseling patient: Quality Stroke Does the patient have a stroke diagnosis?: No VTE Prior VTE?: No VTE Risk Level:: Medical - moderate - high VTE Device Contraindication: Treatment Not Indicated VTE Drug Contraindication: N/A - Med Ordered
--- NOTE | 2022-05-26 09:13 | HO.POSTANES ---
Post Anesthesia Evaluation Post Anesthesia Evaluation Vital Signs: Vital Signs Temp Pulse Resp BP Pulse Ox O2 Del Method 05/26/22 08:32 98.9 F 90 18 156/91 H 93 Room Air 05/26/22 04:01 98.8 F 95 17 133/76 97 Room Air 05/25/22 23:35 98.7 F 84 17 132/71 94 Room Air Anesthesia: Monitored Mental Status: Awake Pain Control: Satisfactory Nausea/Vomiting: None Hydration: Adequate Anesthesia-Related Issues: No Anes. Related Issues
--- NOTE | 2022-05-26 10:26 | P.PICC_ITS ---
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 Following completion of [place] Protocol the skin and soft tissues were anesthetized with 1% Lidocaine plain. Using ultrasound guidance, right cephalic vein access was obtained in a single attempt by vinnie RN after 2 attempts by Tiffany France RN. Over an 0.018 wire through peel-away sheath, a 4 [place] single lumen PASV PowerPICC Pro line was positioned. Catheter length is 45 cm internal length, 0 cm external length, for a total trimmed length of 45 cm. The procedure was performed in S272. Tip verification was performed by Chance Carpio with Sherlock 3CG. Tip located in SVC. Ultrasound was used to document vein patency and for needle entry. A formal ultrasound picture and cardiac rhythm strip was recorded. [employer] has released the line for use and it is currently dressed with a StatLock, Tegaderm, and CHG disc. Verification has been performed for blood return and line patency. Arm Circumference: 31 cm Equipment: PowerPICC Pro Catheter Type: 4 [place] PASV single lumen Lot #: [id number]
[2022-05-26] MEDS: Apixaban 5 MG TABLET PO ×2 (11:19→20:49)
[2022-05-26] MEDS: amLODIPine Besylate 10 MG TABLET PO (11:19)
[2022-05-26] MEDS: lisinopriL 20 MG TABLET PO (11:19)
[2022-05-26] MEDS: Atorvastatin Calcium 40 MG TABLET PO (11:20)
[2022-05-26] MEDS: Insulin Glargine,Hum.rec.anlog 100 UNIT/ML 10 ML VIAL 30 UNIT SUBCUT ×2 (11:26→20:50)
--- NOTE | 2022-05-26 11:33 | P.PNIM_ITS ---
Subjective Subjective Date of Service: 05/26/22 Interval History: the patient was seen and evaluated this morning Laying in bed, feels better overall had I&D done by surgery yesterday, leg feels better today waiting MRI to be done No reported other overnight events. Systemic review: No fever, chills or weakness No chest pain, palpitation No shortness of breath or coughing No abdominal pain, nausea or vomiting No urinary symptoms Physical Exam Vital Signs: Vital Signs: Last Vital Signs Temp 98.9 F 05/26/22 08:32 Pulse 90 05/26/22 08:32 Resp 18 05/26/22 08:32 BP 156/91 H 05/26/22 08:32 Pulse Ox 93 05/26/22 08:32 O2 Del Method 05/26/22 08:32 O2 Flow Rate 2 05/25/22 12:40 BMI result Body Mass Index 27.3 Const: Other: Constitutional : Alert, oriented, not in distress Neck : Normal inspection, Supple Cardiovascular : RRR, no JVP, no lower extremity edema Respiratory : fair bilateral air entry, no crackles, wheezes or rhonchi Gastrointestinal: soft, lax, Normal bowel sounds, Non tender Skin : Warm, Dry Musculoskeletal, transmetatarsal amputation of left foot, right 2nd toe open wound covered with dressing with no drainage noted Neurological : Alert & oriented x3, No focal deficit , CN 2-12 within normal Objective Data Active Medications Acetaminophen (Acetaminophen 325 Mg Tablet) 650 mg PO Q6H PRN PRN Reason: Pain, Mild (Pain Scale 1-3) Last Admin: 05/24/22 15:31 Dose: 650 mg Documented By: NHI Albuterol Sulfate (Albuterol Sulfate (0.083%) 2.5 Mg/3 Ml Vial.Neb) 2.5 mg INHALE ONCE PRN PRN Reason: Wheezing Amlodipine Besylate (Amlodipine Besylate 10 Mg Tablet) 10 mg PO DAILY [facility]; Protocol Last Admin: 05/26/22 11:19 Dose: 10 mg Documented By: PAULO Apixaban (Apixaban 5 Mg Tablet) 5 mg PO BID [facility] Last Admin: 05/26/22 11:19 Dose: 5 mg Documented By: PAULO Atorvastatin Calcium (Atorvastatin Calcium 40 Mg Tablet) 40 mg PO DAILY [facility] Last Admin: 05/26/22 11:20 Dose: 40 mg Documented By: PAULO Dextrose (Dextrose 50 % 25 Gm/50 Ml Syringe) 25 gm IVPUSH Q15M PRN; Protocol PRN Reason: per Hypoglycemia Standing Ord. Docusate Sodium (Docusate Sodium 100 Mg Capsule) 100 mg PO DAILY PRN PRN Reason: Constipation Last Admin: 05/24/22 10:21 Dose: 100 mg Documented By: MADINA Docusate Sodium (Docusate Sodium 100 Mg Capsule) 100 mg PO BID [facility] Last Admin: 05/26/22 11:20 Dose: Not Given Documented By: PAULO Non-Admin Reason: Patient Refused Fentanyl (Fentanyl Citrate/Pf 100 Mcg/2 Ml Vial) 50 mcg IVPUSH Q5M PRN; Protocol PRN Reason: Pain, Severe (Pain Scale 7-10) Ferrous Sulfate (Ferrous Sulfate 324 Mg Tablet.Dr) 324 mg PO BID [facility] Last Admin: 05/23/22 20:26 Dose: 324 mg Documented By: NHI Glucose (Glucose Gel 15 Gm Gel..Gram.) 15 gm PO Q15M PRN; Protocol PRN Reason: per Hypoglycemia Standing Ord. Hydromorphone HCl (Hydromorphone Hcl 0.5 Mg/0.5 Ml Syringe) 0.5 mg IVPUSH Q5M PRN; Protocol PRN Reason: Pain, Severe (Pain Scale 7-10) Piperacillin Sod/Tazobactam (Sod 3.375 gm/ Sodium Chloride) 50 mls @ 100 mls/hr IV Q6H [facility] Last Infusion: 05/26/22 05:56 Dose: 100 mls/hr Documented By: RAVI Vancomycin HCl 1,250 mg/ (Sodium Chloride) 250 mls @ 166.667 mls/hr IV Q12H [facility] Last Admin: 05/26/22 11:15 Dose: Not Given Documented By: PAULO Non-Admin Reason: Not In Room Promethazine HCl 12.5 mg/ (Sodium Chloride) 50.5 mls @ 202 mls/hr IV ONCE PRN PRN Reason: Nausea and Vomiting Insulin Glargine (Insulin Glargine,Hum.Rec.Anlog 100 Unit/Ml 10 Ml Vial) 30 unit SUBCUT BID [facility] Last Admin: 05/26/22 11:26 Dose: 30 unit Documented By: PAULO Insulin Human Lispro (Insulin Lispro 100 Unit/Ml 3 Ml Vial) 0 unit SUBCUT QIDACHS [facility]; Protocol Last Admin: 05/26/22 11:28 Dose: Not Given Documented By: PAULO Non-Admin Reason: No Insulin Coverage Insulin Human Lispro (Insulin Lispro 100 Unit/Ml 3 Ml Vial) 4 unit SUBCUT QIDACHS [facility] Last Admin: 05/26/22 11:28 Dose: Not Given Documented By: PAULO Non-Admin Reason: No Insulin Coverage Lisinopril (Lisinopril 20 Mg Tablet) 20 mg PO DAILY [facility]; Protocol Last Admin: 05/26/22 11:19 Dose: 20 mg Documented By: PAULO Omeprazole (Omeprazole 40 Mg Capsule.Dr) 40 mg PO DAILY@0630 [facility] Last Admin: 05/26/22 05:21 Dose: 40 mg Documented By: RAVI Ondansetron HCl (Ondansetron Hcl 4 Mg/2 Ml Vial) 4 mg IVPUSH Q8H PRN PRN Reason: Nausea and Vomiting Oxycodone HCl (Oxycodone Hcl Immed Release 5 Mg Tablet) 5 mg PO Q6H PRN PRN Reason: Pain, Severe (Pain Scale 7-10) Oxycodone HCl (Oxycodone Hcl Immed Release 5 Mg Tablet) 10 mg PO ONCE PRN PRN Reason: Pain, Severe (Pain Scale 7-10) Pharmacy Consult (Consult Rx Perform Med Rec) 1 each MISCELLANE ONCE PRN PRN Reason: Consult order Pharmacy Consult (Consult Rx Vancomycin Dosing) 1 each MISCELLANE DAILY PRN PRN Reason: Consult order Senna (Sennosides 8.6 Mg Tablet) 17.2 mg PO BEDTIME [facility] Last Admin: 05/25/22 20:50 Dose: 17.2 mg Documented By: NHI Sodium Chloride (0.9 % Sodium Chloride Flush 3 Ml Syringe) 3 ml IVFLUSH QSHIFT [facility] Last Admin: 05/26/22 11:08 Dose: Not Given Documented By: PAULO Non-Admin Reason: Not In Room Trazodone HCl (Trazodone Hcl 25 Mg Halftab) 25 mg PO BEDTIME PRN PRN Reason: Insomnia Last Admin: 05/24/22 21:09 Dose: 25 mg Documented By: NHI Labs CBC & Chem 7: 05/26/22 05:13 05/26/22 05:13 Labs: Laboratory Results - last 24 hr 05/25/22 05/25/22 05/26/22 16:33 20:24 05:13 MCV MCH MCHC RDW Plt Count MPV Absolute Nucleated RBC Nucleated RBC % (auto) Anion Gap Estim Creat Clear Calc Estimated GFR POC Glucose 280 H 274 H Random Glucose Calcium Vancomycin Trough 16.5 05/26/22 05/26/22 05/26/22 05:13 05:13 07:15 MCV 80.3 MCH 25.3 L MCHC 31.5 RDW 17.2 H Plt Count 540 H MPV 9.0 L Absolute Nucleated RBC 0.000 Nucleated RBC % (auto) 0.0 Anion Gap 14 Estim Creat Clear Calc 105.4 Estimated GFR > 60 POC Glucose 112 Random Glucose 122 H D Calcium 8.1 L Vancomycin Trough Microbiology Microbiology Results: Microbiology 05/25/22 Unknown Gram Stain - Final Foot Right Routine Culture - Preliminary No growth to date. Assessment and Plan (1) Diabetic foot ulcer: Status: Acute (2) Osteomyelitis: Status: Acute Plan 51-year-old male with past medical history of diabetes, with apparent noncompliant with his insulin presents to the hospital with diabetic foot ulcer # Right diabetic foot wound # Right 2nd toe base osteomyelitis day 1 post I&D wound at the base of 2nd and 3rd toes of the right footDrained and cleaned by surgery wound culture sent Continue IV antibiotics surgical team input appreciated, to do MRI and consider amputation Discussed with Infectious Disease, consider daptomycin 1 g daily for total of 6 weeks PICC line placed # Type 2 diabetes with hyperglycemia better control HbA1c of 10.4 continue insuline glargine to 30 units bid low-dose sliding scale insulin diabetic diet # Acute on chronic anemia anemia of chronic disease with recurrent episodes of osteomyelitis, no Evidence of blood loss improved to 8 after transfusion, total of 2 since admission Iron deficiency per iron studies continue oral iron, increase to b.i.d. needs outpatient evaluation with upper and lower endoscopies # hypertension continue home antihypertensives # history of PAD, angiography on apixaban DVT prophylaxis Apixaban Given osteomyelitis and need for IV antibiotics , MRI and possible amputation patient will require overnight hospital stay for further management to prevent possible decompensation to sepsis Quality Stroke Does the patient have a stroke diagnosis?: No VTE Prior VTE?: No VTE Risk Level:: Medical - moderate - high VTE Device Contraindication: Treatment Not Indicated VTE Drug Contraindication: N/A - Med Ordered
[2022-05-26 12:05] LABS: Glucose, Whole Blood 147 mg/dL (60-115)
--- NOTE | 2022-05-26 12:26 | MHC.CM.PN ---
POSSIBLE AMP. CURRENTLY AWAITING MRI AND DECISION. CASE MANAGEMENT FOLLOWING.
--- NOTE | 2022-05-26 12:57 | PM.CNGS ---
History of Present Illness Consult details Consult date: 05/26/22 Narrative: very pleasant 51-year-old gentleman presents for evaluation regarding nonhealing right 2nd toe ulcer. Has a history of peripheral vascular disease. Of note he has a prior left-sided transmetatarsal amputation. He has actually undergone debridement with General surgery over the weekend. He now presents to us for vascular evaluation. of note he has had noninvasive testing nearly 5 months ago. Review of Systems Review of Systems: Yes all other systems are reviewed and are negative Constitutional: Constitutional: Reports no additional constitutional complaints ENT: Reports Normal hearing present Cardiovascular: Cardiovascular: Denies chest pain, Denies chest pain at rest, Denies chest pain with activity and Denies pedal edema Respiratory: Respiratory: Denies cough Gastrointestinal: Gastrointestinal: Denies abdominal pain Musculoskeletal: Musculoskeletal: Denies abnormal gait, Denies muscle cramps and Denies radiating pain into limb Integumentary/Breasts: Skin/Breast: Denies skin ulcer and Denies wounds Neurologic: Reports Normal hearing present and Denies abnormal gait Psychiatric: Psychiatric: Reports no additional psychiatric complaints PMFSH Past Medical History Medical History Anemia Anemia of chronic disease Bacteremia Diabetes Diabetic foot ulcer Diabetic foot ulcer Gangrene of toe of left foot GERD (gastroesophageal reflux disease) History of angiography Open wound Orthostatic hypotension PAD (peripheral artery disease) Peripheral vascular disease PICC (peripherally inserted central catheter) in place Family History Family History Other Diabetes Family history: reviewed and not pertinent Surgical History Surgical History Amputated toe of right foot (11/05/20) Social History Social History Household Members: Spouse and Children Housing: Apartment Do you presently have visiting nurse or other home services: No Alcohol intake: current Alcohol intake frequency: a few times a month Patient Tobacco Use Status: Former Tobacco user Tobacco use type: Cigarette Years Smoked: 15 e-Cigarette/Vaping Use: Never Used Second Hand Smoke Exposure: No service: No Current occupational status: unemployed Meds Allergies Allergy/AdvReac Type Severity Reaction Status Date / Time No Known Allergies Allergy Verified 03/04/22 13:01 Active Medications: Current Medications Acetaminophen (Acetaminophen 325 Mg Tablet) 650 mg PO Q6H PRN PRN Reason: Pain, Mild (Pain Scale 1-3) Last Admin: 05/24/22 15:31 Dose: 650 mg Albuterol Sulfate (Albuterol Sulfate (0.083%) 2.5 Mg/3 Ml Vial.Neb) 2.5 mg INHALE ONCE PRN PRN Reason: Wheezing Amlodipine Besylate (Amlodipine Besylate 10 Mg Tablet) 10 mg PO DAILY [facility]; Protocol Last Admin: 05/26/22 11:19 Dose: 10 mg Apixaban (Apixaban 5 Mg Tablet) 5 mg PO BID [facility] Last Admin: 05/26/22 11:19 Dose: 5 mg Atorvastatin Calcium (Atorvastatin Calcium 40 Mg Tablet) 40 mg PO DAILY [facility] Last Admin: 05/26/22 11:20 Dose: 40 mg Dextrose (Dextrose 50 % 25 Gm/50 Ml Syringe) 25 gm IVPUSH Q15M PRN; Protocol PRN Reason: per Hypoglycemia Standing Ord. Docusate Sodium (Docusate Sodium 100 Mg Capsule) 100 mg PO DAILY PRN PRN Reason: Constipation Last Admin: 05/24/22 10:21 Dose: 100 mg Docusate Sodium (Docusate Sodium 100 Mg Capsule) 100 mg PO BID [facility] Last Admin: 05/26/22 11:20 Dose: Not Given Fentanyl (Fentanyl Citrate/Pf 100 Mcg/2 Ml Vial) 50 mcg IVPUSH Q5M PRN; Protocol PRN Reason: Pain, Severe (Pain Scale 7-10) Ferrous Sulfate (Ferrous Sulfate 324 Mg Tablet.Dr) 324 mg PO BID [facility] Last Admin: 05/23/22 20:26 Dose: 324 mg Glucose (Glucose Gel 15 Gm Gel..Gram.) 15 gm PO Q15M PRN; Protocol PRN Reason: per Hypoglycemia Standing Ord. Hydromorphone HCl (Hydromorphone Hcl 0.5 Mg/0.5 Ml Syringe) 0.5 mg IVPUSH Q5M PRN; Protocol PRN Reason: Pain, Severe (Pain Scale 7-10) Piperacillin Sod/Tazobactam (Sod 3.375 gm/ Sodium Chloride) 50 mls @ 100 mls/hr IV Q6H [facility] Last Infusion: 05/26/22 05:56 Dose: Infused Vancomycin HCl 1,250 mg/ (Sodium Chloride) 250 mls @ 166.667 mls/hr IV Q12H [facility] Last Admin: 05/26/22 11:15 Dose: Not Given Promethazine HCl 12.5 mg/ (Sodium Chloride) 50.5 mls @ 202 mls/hr IV ONCE PRN PRN Reason: Nausea and Vomiting Insulin Glargine (Insulin Glargine,Hum.Rec.Anlog 100 Unit/Ml 10 Ml Vial) 30 unit SUBCUT BID [facility] Last Admin: 05/26/22 11:26 Dose: 30 unit Insulin Human Lispro (Insulin Lispro 100 Unit/Ml 3 Ml Vial) 0 unit SUBCUT QIDACHS [facility]; Protocol Last Admin: 05/26/22 11:28 Dose: Not Given Insulin Human Lispro (Insulin Lispro 100 Unit/Ml 3 Ml Vial) 4 unit SUBCUT QIDACHS [facility] Last Admin: 05/26/22 11:28 Dose: Not Given Lisinopril (Lisinopril 20 Mg Tablet) 20 mg PO DAILY [facility]; Protocol Last Admin: 05/26/22 11:19 Dose: 20 mg Omeprazole (Omeprazole 40 Mg Capsule.Dr) 40 mg PO DAILY@0630 [facility] Last Admin: 05/26/22 05:21 Dose: 40 mg Ondansetron HCl (Ondansetron Hcl 4 Mg/2 Ml Vial) 4 mg IVPUSH Q8H PRN PRN Reason: Nausea and Vomiting Oxycodone HCl (Oxycodone Hcl Immed Release 5 Mg Tablet) 5 mg PO Q6H PRN PRN Reason: Pain, Severe (Pain Scale 7-10) Oxycodone HCl (Oxycodone Hcl Immed Release 5 Mg Tablet) 10 mg PO ONCE PRN PRN Reason: Pain, Severe (Pain Scale 7-10) Pharmacy Consult (Consult Rx Perform Med Rec) 1 each MISCELLANE ONCE PRN PRN Reason: Consult order Pharmacy Consult (Consult Rx Vancomycin Dosing) 1 each MISCELLANE DAILY PRN PRN Reason: Consult order Senna (Sennosides 8.6 Mg Tablet) 17.2 mg PO BEDTIME [facility] Last Admin: 05/25/22 20:50 Dose: 17.2 mg Sodium Chloride (0.9 % Sodium Chloride Flush 3 Ml Syringe) 3 ml IVFLUSH QSHIFT [facility] Last Admin: 05/26/22 11:08 Dose: Not Given Trazodone HCl (Trazodone Hcl 25 Mg Halftab) 25 mg PO BEDTIME PRN PRN Reason: Insomnia Last Admin: 05/24/22 21:09 Dose: 25 mg Home Medications Medication Instructions Recorded Confirmed Last Taken Type blood sugar diagnostic #10 ea 11/20/20 12/12/21 Unknown History pen needle, diabetic 32 gauge x #50 ea 11/20/20 12/12/21 Unknown History atorvastatin 40 mg tablet 1 tab PO DAILY 05/21/22 05/21/22 Unknown History insulin glargine 100 unit/mL (3 20 unit subcut BID 05/21/22 05/21/22 Unknown History mL) subcutaneous pen (Basaglar KwikPen U-100 Insulin) Physical Exam Vital Signs: Vital Signs: Last Vital Signs Temp 98.9 F 05/26/22 08:32 Pulse 90 05/26/22 08:32 Resp 18 05/26/22 08:32 BP 156/91 H 05/26/22 08:32 Pulse Ox 93 05/26/22 08:32 O2 Del Method 05/26/22 08:32 O2 Flow Rate 2 05/25/22 12:40 BMI result Body Mass Index 27.3 Const: General: cooperative, healthy appearing and comfortable Orientation/consciousness: oriented to person, oriented to place and oriented to time HEENT: Head: Yes normal to inspection Neck: Neck: Yes normal visual inspection Carotids: no bruits Chest: Chest palpation & inspection: normal inspection of the chest Resp: Effort & Inspection: normal respiratory effort and able to speak in complete sentences Auscultation: clear to auscultation bilaterally, no crackles, no rales, no rhonchi and no wheezes Cardio: Rate: regular rate Rhythm: regular rhythm Heart sounds: S1 normal heart sound present and S2 normal heart sound present Bruits: no carotid bruits Peripheral pulses: dorsalis pedis present ( Bilateral DP signals) GI: Inspection: Yes normal to inspection Skin: Other: right 2nd toe ulcer with drainage Wounds: amputation site ( left trans met healed well) and wounds noted ( right foot as above) Hair: normal Neuro: General: oriented to person, oriented to place and oriented to time Cranial nerves: Yes CN's II-XII intact bilaterally and Yes Normal hearing present Cognition (Neuro): normal cognition Motor exam (neuro): 5/5 motor strength present throughout Extrem: Other: venous exam: No significant superficial varicosities or spider telangiectasias, minimal edema General: No clubbing, No cyanosis and No edema Psych: Appearance: grossly normal Mental Status: mental status grossly normal Speech and movement: Normal speech and movement present Results Labs Result diagrams: 05/26/22 05:13 05/26/22 05:13 Labs: Abnormal lab results 05/25/22 05/25/22 05/26/22 Range/Units 16:33 20:24 05:13 WBC 13.1 H (4.8-10.8) X10*3/uL RBC 3.00 L (4.60-5.80) X10*6/uL Hgb 7.6 L (14.0-18.0) g/dl Hct 24.1 L (42.0-52.0) % MCH 25.3 L (27.0-33.0) pg RDW 17.2 H (11.0-16.0) % Plt Count 540 H (160-400) X10*3/uL MPV 9.0 L (9.4-12.4) fL POC Glucose 280 H 274 H (60-115) mg/dL Random Glucose (60-115) mg/dL Calcium (8.4-10.2) mg/dL 05/26/22 05/26/22 Range/Units 05:13 11:09 WBC (4.8-10.8) X10*3/uL RBC (4.60-5.80) X10*6/uL Hgb (14.0-18.0) g/dl Hct (42.0-52.0) % MCH (27.0-33.0) pg RDW (11.0-16.0) % Plt Count (160-400) X10*3/uL MPV (9.4-12.4) fL POC Glucose 147 H (60-115) mg/dL Random Glucose 122 H D (60-115) mg/dL Calcium 8.1 L (8.4-10.2) mg/dL Short CBC 05/26/22 Range/Units 05:13 WBC 13.1 H (4.8-10.8) X10*3/uL Hgb 7.6 L (14.0-18.0) g/dl Hct 24.1 L (42.0-52.0) % Plt Count 540 H (160-400) X10*3/uL BMP 05/26/22 05:13 Sodium 138 Potassium 4.2 Chloride 105 Carbon Dioxide 23 BUN 10 Creatinine 0.82 Calcium 8.1 L All other labs normal. Assessment and Plan (1) PAD (peripheral artery disease): Status: Acute Plan in short patient has a nonhealing diabetic right foot ulceration. His prior MOISE was 1.1 with patent stent. I have taken the liberty of ordering repeat noninvasive testing. Will continue with local wound care. We will follow along with you. Thank you for allowing us to assist in his care. If there are any questions or concerns please do not hesitate to contact us. Procedures Date of Service Date of Service: 05/26/22
[2022-05-26] MEDS: vancomycin HCL 1,250 MG in 0.9 % Sodium Chloride 250 ML 166.66 MG IV (14:09)
[2022-05-26 16:00] VITALS: BP 141/85; PULSE 99; RESP 18; TEMP 37.2; O2SAT 100
[2022-05-26 16:20] LABS: Glucose, Whole Blood 267 mg/dL (60-115)
[2022-05-26] MEDS: Iron Sucrose Complex 200 MG in 0.9 % Sodium Chloride 100 ML 440 MG IV (18:27)
[2022-05-26] MEDS: Insulin Lispro 100 UNIT/ML 3 ML VIAL SUBCUT ×4 (18:27→20:50)
[2022-05-26] MEDS: 0.9 % Sodium Chloride Flush 10 ML SYRINGE 5 ML IVFLUSH (18:27)
[2022-05-26 19:51] VITALS: BP 158/84; PULSE 98; RESP 18; TEMP 36.7; O2SAT 94
[2022-05-26 19:57] LABS: Glucose, Whole Blood 187 mg/dL (60-115)
[2022-05-26] MEDS: Docusate Sodium 100 MG CAPSULE PO (20:49)
[2022-05-26] MEDS: Sennosides 8.6 MG TABLET 17.2 MG PO (20:49)
[2022-05-27] MEDS: Piperacillin Sodium/Tazobactam 3.375 GM in 0.9 % Sodium Chloride 50 ML IV ×3 (00:10→12:34)
[2022-05-27] MEDS: vancomycin HCL 1,250 MG in 0.9 % Sodium Chloride 250 ML 166.67 MG IV ×2 (02:13→14:06)
[2022-05-27] MEDS: Omeprazole 40 MG CAPSULE.DR PO (05:42)
[2022-05-27 05:57] LABS: Hematocrit 26.5 % (42.0-52.0); Hemoglobin 8.1 g/dl (14.0-18.0); Mean Corpuscular HGB Conc 30.6 g/dl (31.0-36.0); Mean Corpuscular Hemoglobin 25.3 pg (27.0-33.0); Mean Corpuscular Volume 82.8 fL (80.0-98.0); Mean Platelet Volume 10.3 fL (9.4-12.4); Platelet Count 398 X10*3/uL (160-400); Red Cell Distribution Width 17.5 % (11.0-16.0); White Blood Count 9.2 X10*3/uL (4.8-10.8)
[2022-05-27 06:18] LABS: Anion Gap 15 (12-20); Blood Urea Nitrogen 9 mg/dL (9-16); Calcium 8.2 mg/dL (8.4-10.2); Carbon Dioxide 22 mmol/L (22-29); Chloride 105 mmol/L (96-108); Creatinine Clr Calc Pharmacy 102.9; Estimated Glomerular Filt Rate > 60; Glucose Random 181 mg/dL (60-115); Potassium 4.4 mmol/L (3.3-5.1); Sodium 138 mmol/L (135-145)
[2022-05-27 07:57] LABS: Glucose, Whole Blood 142 mg/dL (60-115)
[2022-05-27 08:15] VITALS: BP 160/92; PULSE 95; RESP 18; TEMP 36.8; O2SAT 96
--- NOTE | 2022-05-27 10:13 | P.PNVS_ITS ---
Subjective Subjective Date of Service: 05/27/22 Patient reports: no new complaints Interval history: 51-year-old gentleman with nonhealing ulcer that was debrided by General surgery presents for follow-up. He reports his leg feels somewhat better. He is concerned about the overall status as he has had a trans met on the other side. Of note he underwent MRI. He states the leg feels somewhat better. He has also undergone noninvasive arterial testing. Physical Exam Vital Signs: Vital Signs: Last Vital Signs Temp 98.3 F 05/27/22 08:15 Pulse 95 05/27/22 08:15 Resp 18 05/27/22 08:15 BP 160/92 H 05/27/22 08:15 Pulse Ox 96 05/27/22 08:15 O2 Del Method 05/27/22 08:15 O2 Flow Rate 6 05/26/22 16:00 BMI result Body Mass Index 27.3 Const: General: cooperative, healthy appearing and no acute distress Orientation/consciousness: oriented to person, oriented to place and oriented to time HEENT: Head: Yes normal to inspection Neck: Carotids: no bruits Chest: Chest palpation & inspection: normal inspection of the chest Resp: Effort & Inspection: normal respiratory effort and able to speak in complete sentences Auscultation: clear to auscultation bilaterally Cardio: Rate: regular rate Heart sounds: S1 normal heart sound present and S2 normal heart sound present GI: Inspection: Yes normal to inspection Skin: Other: Right foot dressing changed. Dorsum opening appears to be draining well. General skin exam: no rashes or lesions noted Wounds: no wounds Neuro: General: oriented to person, oriented to place, oriented to time and CN's II-XI intact bilaterally Extrem: General: Yes normal to inspection, Yes full ROM and Yes no clubbing, cyanosis or edema Psych: Appearance: grossly normal and well kempt Speech and movement: Corinna l speech and movement present Affect: normal affect Progress Note: A&P Assessment and plan (1) Diabetic foot ulcer: Status: Acute Assessment and Plan: In short patient has right leg diabetic foot ulcer. MRI is positive for osteomyelitis and will most likely require long-term IV antibiotics. From an arterial standpoint patient has an MOISE on the right of 0.99 and on the left of 1.1. In addition I was able to appreciate a palpable DP pulse. Stable from a vascular perspective. Continue local wound care and will most likely require long-term IV antibiotics. We will follow on an as-needed basis with you. Thank you for allowing us to assist in his care. Time Spent With Patient Time: Total time spent is greater than 50% in coordination of care (as documented) at patient's floor/unit and/or counseling patient: Procedures Date of Service Date of Service: 05/27/22 Quality Stroke Does the patient have a stroke diagnosis?: No VTE Prior VTE?: No VTE Risk Level:: Medical - moderate - high VTE Device Contraindication: Treatment Not Indicated VTE Drug Contraindication: N/A - Med Ordered
--- NOTE | 2022-05-27 10:18 | P.PNIM_ITS ---
Subjective Subjective Date of Service: 05/27/22 Interval History: the patient was seen and evaluated this morning Laying in bed, feels better overall MRI showing evidence of extensive osteomyelitis No reported other overnight events. Systemic review: No fever, chills or weakness No chest pain, palpitation No shortness of breath or coughing No abdominal pain, nausea or vomiting No urinary symptoms Physical Exam Vital Signs: Vital Signs: Last Vital Signs Temp 98.3 F 05/27/22 08:15 Pulse 95 05/27/22 08:15 Resp 18 05/27/22 08:15 BP 160/92 H 05/27/22 08:15 Pulse Ox 96 05/27/22 08:15 O2 Del Method 05/27/22 08:15 O2 Flow Rate 6 05/26/22 16:00 BMI result Body Mass Index 27.3 Const: Other: Constitutional : Alert, oriented, not in distress Neck : Normal inspection, Supple Cardiovascular : RRR, no JVP, no lower extremity edema Respiratory : fair bilateral air entry, no crackles, wheezes or rhonchi Gastrointestinal: soft, lax, Normal bowel sounds, Non tender Skin : Warm, Dry Musculoskeletal, transmetatarsal amputation of left foot, right 2nd toe open wound covered with dressing with drainage noted Neurological : Alert & oriented x3, No focal deficit , CN 2-12 within normal Objective Data Active Medications Acetaminophen (Acetaminophen 325 Mg Tablet) 650 mg PO Q6H PRN PRN Reason: Pain, Mild (Pain Scale 1-3) Last Admin: 05/24/22 15:31 Dose: 650 mg Documented By: [facility] Albuterol Sulfate (Albuterol Sulfate (0.083%) 2.5 Mg/3 Ml Vial.Neb) 2.5 mg INHALE ONCE PRN PRN Reason: Wheezing Amlodipine Besylate (Amlodipine Besylate 10 Mg Tablet) 10 mg PO DAILY [facility]; Protocol Last Admin: 05/26/22 11:19 Dose: 10 mg Documented By: PAULO Apixaban (Apixaban 5 Mg Tablet) 5 mg PO BID [facility] Last Admin: 05/26/22 20:49 Dose: 5 mg Documented By: ESPERANZA Atorvastatin Calcium (Atorvastatin Calcium 40 Mg Tablet) 40 mg PO DAILY [facility] Last Admin: 05/26/22 11:20 Dose: 40 mg Documented By: PAULO Dextrose (Dextrose 50 % 25 Gm/50 Ml Syringe) 25 gm IVPUSH Q15M PRN; Protocol PRN Reason: per Hypoglycemia Standing Ord. Docusate Sodium (Docusate Sodium 100 Mg Capsule) 100 mg PO DAILY PRN PRN Reason: Constipation Last Admin: 05/24/22 10:21 Dose: 100 mg Documented By: MADINA Docusate Sodium (Docusate Sodium 100 Mg Capsule) 100 mg PO BID [facility] Last Admin: 05/26/22 20:49 Dose: 100 mg Documented By: ESPERANZA Fentanyl (Fentanyl Citrate/Pf 100 Mcg/2 Ml Vial) 50 mcg IVPUSH Q5M PRN; Protocol PRN Reason: Pain, Severe (Pain Scale 7-10) Ferrous Sulfate (Ferrous Sulfate 324 Mg Tablet.Dr) 324 mg PO BID [facility] Last Admin: 05/23/22 20:26 Dose: 324 mg Documented By: [facility] Glucose (Glucose Gel 15 Gm Gel..Gram.) 15 gm PO Q15M PRN; Protocol PRN Reason: per Hypoglycemia Standing Ord. Hydromorphone HCl (Hydromorphone Hcl 0.5 Mg/0.5 Ml Syringe) 0.5 mg IVPUSH Q5M PRN; Protocol PRN Reason: Pain, Severe (Pain Scale 7-10) Piperacillin Sod/Tazobactam (Sod 3.375 gm/ Sodium Chloride) 50 mls @ 100 mls/hr IV Q6H [facility] Last Infusion: 05/27/22 07:13 Dose: 0 mls/hr Documented By: COTEMA Promethazine HCl 12.5 mg/ (Sodium Chloride) 50.5 mls @ 202 mls/hr IV ONCE PRN PRN Reason: Nausea and Vomiting Vancomycin HCl 1,250 mg/ (Sodium Chloride) 250 mls @ 166.667 mls/hr IV Q12H [facility] Last Infusion: 05/27/22 03:59 Dose: 0 mls/hr Documented By: ESPERANZA Insulin Glargine (Insulin Glargine,Hum.Rec.Anlog 100 Unit/Ml 10 Ml Vial) 30 unit SUBCUT BID [facility] Last Admin: 05/26/22 20:50 Dose: 30 unit Documented By: ESPERANZA Insulin Human Lispro (Insulin Lispro 100 Unit/Ml 3 Ml Vial) 0 unit SUBCUT QIDACHS [facility]; Protocol Last Admin: 05/27/22 08:47 Dose: Not Given Documented By: POLO Non-Admin Reason: No Insulin Coverage Insulin Human Lispro (Insulin Lispro 100 Unit/Ml 3 Ml Vial) 4 unit SUBCUT [facility] Last Admin: 05/27/22 08:47 Dose: Not Given Documented By: OPLO Non-Admin Reason: No Insulin Coverage Lisinopril (Lisinopril 20 Mg Tablet) 20 mg PO DAILY [facility]; Protocol Last Admin: 05/26/22 11:19 Dose: 20 mg Documented By: PAULO Omeprazole (Omeprazole 40 Mg Capsule.Dr) 40 mg PO DAILY@06 [facility] Last Admin: 05/27/22 05:42 Dose: 40 mg Documented By: ESPERANZA Ondansetron HCl (Ondansetron Hcl 4 Mg/2 Ml Vial) 4 mg IVPUSH Q8H PRN PRN Reason: Nausea and Vomiting Oxycodone HCl (Oxycodone Hcl Immed Release 5 Mg Tablet) 10 mg PO ONCE PRN PRN Reason: Pain, Severe (Pain Scale 7-10) Pharmacy Consult (Consult Rx Perform Med Rec) 1 each MISCELLANE ONCE PRN PRN Reason: Consult order Pharmacy Consult (Consult Rx Vancomycin Dosing) 1 each MISCELLANE DAILY PRN PRN Reason: Consult order Senna (Sennosides 8.6 Mg Tablet) 17.2 mg PO BEDTIME [facility] Last Admin: 05/26/22 20:49 Dose: 17.2 mg Documented By: ESPERANZA Sodium Chloride (0.9 % Sodium Chloride Flush 3 Ml Syringe) 3 ml IVFLUSH [facility] Last Admin: 05/27/22 00:10 Dose: Not Given Documented By: ESPERANZA Non-Admin Reason: IV Running Sodium Chloride (0.9 % Sodium Chloride Flush 10 Ml Syringe) 5 ml IVFLUSH [facility] Last Admin: 05/27/22 00:10 Dose: Not Given Documented By: ESPERANZA Non-Admin Reason: IV Running Trazodone HCl (Trazodone Hcl 25 Mg Halftab) 25 mg PO BEDTIME PRN PRN Reason: Insomnia Last Admin: 08/27/22 21:09 Dose: 25 mg Documented By: [facility] Labs CBC & Chem 7: 05/27/22 05:17 05/27/22 05:17 Labs: Laboratory Results - last 24 hr 05/26/22 05/26/22 05/26/22 11:09 16:05 19:49 MCV MCH MCHC RDW Plt Count MPV Absolute Nucleated RBC Nucleated RBC % (auto) Anion Gap Estim Creat Clear Calc Estimated GFR POC Glucose 147 H 267 H 187 H Random Glucose Calcium 05/27/22 05/27/22 05/27/22 05:17 05:17 07:43 MCV 82.8 MCH 25.3 L MCHC 30.6 L RDW 17.5 H Plt Count 398 D MPV 10.3 Absolute Nucleated RBC 0.000 Nucleated RBC % (auto) 0.0 Anion Gap 15 Estim Creat Clear Calc 102.9 Estimated GFR > 60 POC Glucose 142 H Random Glucose 181 H D Calcium 8.2 L Microbiology Microbiology Results: Microbiology 05/25/22 Unknown Gram Stain - Final Foot Right Routine Culture - Final 05/21/22 15:49 Blood Culture - Final Blood - Venous No growth after 5 days. 05/21/22 15:29 Blood Culture - Final Blood - Venous No growth after 5 days. Assessment and Plan (1) Diabetic foot ulcer: Status: Acute (2) Osteomyelitis: Status: Acute Plan 51-year-old male with past medical history of diabetes, with apparent noncompliant with his insulin presents to the hospital with diabetic foot ulcer # Right diabetic foot wound # Right 2nd toe base osteomyelitis day 2 post I&D wound at the base of 2nd and 3rd toes of the right foot Drained and cleaned by surgery wound culture negative Continue IV antibiotics surgical team input appreciated, consider amputation MRI of foot done showing extensive osteomyelitis in the base of 2nd toe with distal 2nd toe fracture Discussed with Infectious Disease, consider daptomycin 1 g daily for total of 6 weeks PICC line placed # Type 2 diabetes with hyperglycemia better control HbA1c of 10.4 continue insuline glargine to 30 units bid low-dose sliding scale insulin diabetic diet # Acute on chronic anemia anemia of chronic disease with recurrent episodes of osteomyelitis, no Evidence of blood loss improved to 8 after transfusion, total of 2 since admission Iron deficiency per iron studies continue oral iron, increase to b.i.d. needs outpatient evaluation with upper and lower endoscopies # hypertension continue home antihypertensives # history of PAD, angiography on apixaban DVT prophylaxis Apixaban Given osteomyelitis and need for IV antibiotics and possible amputation patient will require overnight hospital stay for further management to prevent possible decompensation to sepsis Quality Stroke Does the patient have a stroke diagnosis?: No VTE Prior VTE?: No VTE Risk Level:: Medical - moderate - high VTE Device Contraindication: Treatment Not Indicated VTE Drug Contraindication: N/A - Med Ordered
[2022-05-27] MEDS: Insulin Glargine,Hum.rec.anlog 100 UNIT/ML 10 ML VIAL 30 UNIT SUBCUT (10:30)
[2022-05-27] MEDS: Docusate Sodium 100 MG CAPSULE PO (10:31)
[2022-05-27] MEDS: 0.9 % Sodium Chloride Flush 10 ML SYRINGE 5 ML IVFLUSH (10:31)
[2022-05-27] MEDS: amLODIPine Besylate 10 MG TABLET PO (10:31)
[2022-05-27] MEDS: Apixaban 5 MG TABLET PO (10:31)
[2022-05-27] MEDS: Atorvastatin Calcium 40 MG TABLET PO (10:31)
[2022-05-27] MEDS: lisinopriL 20 MG TABLET PO (10:31)
[2022-05-27 11:49] LABS: Glucose, Whole Blood 172 mg/dL (60-115)
[2022-05-27] MEDS: Insulin Lispro 100 UNIT/ML 3 ML VIAL SUBCUT ×4 (12:33→17:26)
[2022-05-27 12:53] LABS: Vancomycin Trough 13.5 mcg/mL (10.0-20.0)
--- NOTE | 2022-05-27 13:14 | HE.PHANOTE ---
FEDERICO PICHARDO CONTINUE CURRENT DOSE, NEXT TROUGH DUE @ 0000 ON 05/29
--- NOTE | 2022-05-27 14:18 | PM.DS ---
DS: Providers Provider Date of Service: 05/27/22 Date of admission: 05/21/22 19:41 Primary care physician: Fredy Adair PA-C Consults: 05/21/22 19:30 Consult to Infectious Diseases Routine Consulting Provider: Lourdes Gonzalez Reason for consultation: Osteomyelitis Has provider been notified: No 05/21/22 19:35 Consult to General Surgery Routine Consulting Provider: Avelino Davila Reason for consultation: diabetic wound, OM Has provider been notified: No 05/25/22 12:28 Consult to Vascular Surgery Routine Consulting Provider: Bebeto Hammer Reason for consultation: right foot diabetic foot wounds and osteomyelitis. to see pt on thursday Has provider been notified: No DS: Diagnosis Discharge Diagnosis (1) Osteomyelitis: Status: Acute DS: Summary Hospital Course Hospital Course: Admission note HPI This is a 51-year-old male with past medical history of diabetes, history of osteomyelitis, PAD, chronic anemia who presents to the hospital with complaints of nonhealing wound on the right leg.? Patient reports that he was at the wound clinic today and he was asked to present himself to the hospital for further evaluation of the wound.? Patient is somnolent but is arousable and answers questions appropriately.? He reports that he is extremely fatigued and tired, sleepy, reports no fever but has chills, reports no pain but drainage from his right foot, he has noticed swelling that worsened over the past 1 week, the drainage is clear serosanguineous. Patient denies any chest pain, no headache or change in vision, no abdominal pain nausea or vomiting, no diarrhea constipation, no urinary symptoms.? Patient's apparently also reported to the ED PA that patient has been having intermittent episodes of coughing of blood, patient adamantly denies this.? He also adamantly denies IV drug use. On arrival to the ED patient found to have a temp of 99.2 degrees, heart rate of 101, otherwise hemodynamically stable Labs are significant for WBC count of 16.3, hemoglobin of 6.8 with a baseline of around 8, hematocrit of 21.3, sodium of 132, glucose of 314, III 0.2, Right foot x-ray shows destructive changes at the 2nd metatarsophalangeal joint, concerning for osteomyelitis Chest CT shows a few mildly enlarged mediastinal lymph nodes that are non nonspecific Patient started on IV antibiotics and will be admitted for further management Hospital course The patient was admitted to the hospital for evaluation of brother diabetic foot infection with 2nd toe osteomyelitis. Evaluated by surgical team, vascular and infectious disease specialist who suggested amputation versus 6 weeks of IV antibiotics. The patient felt more comfortable trying IV antibiotics for the next few weeks before making decision about amputation as MRI of foot done showing extensive osteomyelitis in the base of 2nd toe with distal 2nd toe fracture. Noted to have hyperglycemia. HbA1c of 10.4. Insulin glargine increased to 30 units twice daily. Fairly controlled with addition of SSI on diabetic diet. Noted to have acute on chronic anemia with no evidence of blood loss. Received 2 units of blood with improvement of hemoglobin to 8. Noticed to have iron deficiency. Increased for S sulfate to twice daily. He will need to be followed as outpatient for upper and lower endoscopies. Continue IV antibiotics as prescribed Call [phone] for a follow up visit with dr [facility] from [facility]. Follow up with the wound clinic To follow-up with surgery as the patient to decide about the need of amputation Time Spent with Patient Time attestation: Total time spent providing and/or coordinating discharge services: Discharge coordination time: Greater than 30 minutes Quality: Safe Use of Opioids Does Pt have an Active Cancer Diagnosis on the Problem List?: No Quality: Stroke Does the patient have a stroke diagnosis?: No Physical Exam Vital Signs: Vital Signs: Last Vital Signs Temp 98.3 F 05/27/22 08:15 Pulse 95 05/27/22 08:15 Resp 18 05/27/22 08:15 BP 160/92 H 05/27/22 08:15 Pulse Ox 96 05/27/22 08:15 O2 Del Method 05/27/22 08:15 O2 Flow Rate 6 05/26/22 16:00 BMI result Body Mass Index 27.3 Const: Other: Constitutional : Alert, oriented, not in distress Neck : Normal inspection, Supple Cardiovascular : RRR, no JVP, no lower extremity edema Respiratory : fair bilateral air entry, no crackles, wheezes or rhonchi Gastrointestinal: soft, lax, Normal bowel sounds, Non tender Skin : Warm, Dry Musculoskeletal, transmetatarsal amputation of left foot, right 2nd toe open wound covered with dressing with drainage noted Neurological : Alert & oriented x3, No focal deficit , CN 2-12 within normal DS: Data Data Completed and Pending Completed studies during hospitalization [Text1]: Procedures Detachment at Left Foot, Partial 1st Ray, Open Approach (06/30/21) Detachment at Left Foot, Partial 2nd Ray, Open Approach (06/30/21) Detachment at Left Foot, Partial 3rd Ray, Open Approach (06/30/21) Detachment at Left Foot, Partial 4th Ray, Open Approach (06/30/21) Detachment at Left Foot, Partial 5th Ray, Open Approach (06/30/21) Dilation of Left Femoral Artery with Intraluminal Device, Percutaneous Approach (06/30/21) Extirpation of Matter from Left Femoral Artery, Percutaneous Approach (06/30/21) Extirpation of Matter from Right Popliteal Artery, Percutaneous Approach (09/20/20) Insertion of Infusion Device into Superior Vena Cava, Percutaneous Approach (09/20/20) Transfusion of Nonautologous Red Blood Cells into Peripheral Vein, Percutaneous Approach (08/30/21) Ultrasonography of Superior Vena Cava, Guidance (09/20/20) Labs on day of discharge: Laboratory Results - last 24 hr 05/26/22 05/26/22 05/27/22 16:05 19:49 05:17 WBC 9.2 RBC 3.20 L Hgb 8.1 L Hct 26.5 L MCV 82.8 MCH 25.3 L MCHC 30.6 L RDW 17.5 H Plt Count 398 D MPV 10.3 Absolute Nucleated RBC 0.000 Nucleated RBC % (auto) 0.0 Sodium Potassium Chloride Carbon Dioxide Anion Gap BUN Creatinine Estim Creat Clear Calc Estimated GFR POC Glucose 267 H 187 H Random Glucose Calcium Vancomycin Trough 05/27/22 05/27/22 05/27/22 05:17 07:43 11:23 WBC RBC Hgb Hct MCV MCH MCHC RDW Plt Count MPV Absolute Nucleated RBC Nucleated RBC % (auto) Sodium 138 Potassium 4.4 Chloride 105 Carbon Dioxide 22 Anion Gap 15 BUN 9 Creatinine 0.84 Estim Creat Clear Calc 102.9 Estimated GFR > 60 POC Glucose 142 H 172 H Random Glucose 181 H D Calcium 8.2 L Vancomycin Trough 05/27/22 12:05 WBC RBC Hgb Hct MCV MCH MCHC RDW Plt Count MPV Absolute Nucleated RBC Nucleated RBC % (auto) Sodium Potassium Chloride Carbon Dioxide Anion Gap BUN Creatinine Estim Creat Clear Calc Estimated GFR POC Glucose Random Glucose Calcium Vancomycin Trough 13.[address] scan - abdomen: Radiologist's impression: ITS Impressions Chest X-Ray 05/21/22 16:04 IMPRESSION: Clear lungs. Foot X-Ray 05/21/22 16:04 IMPRESSION: Destructive changes at the second metatarsophalangeal joint, concerning for osteomyelitis with lucency and erosion. Likely associated fracture at the base of the proximal phalanx. Chest CT 05/21/22 18:39 IMPRESSION: -A few mildly enlarged mediastinal lymph nodes are noted, nonspecific. -Tiny bilateral pleural effusions. Fleischner guidelines were followed. Duplex Scan Lower Extremity Artery 05/26/22 07:36 IMPRESSION: Right leg: Normal ankle brachial index. Stent within the proximal to mid superficial femoral artery is patent with borderline elevated velocities within the stent and in the mid superficial femoral artery which appears stable. Patent flow in the below-knee runoff. Left leg: Normal ankle brachial index. Stent within the superficial femoral artery is patent with normal velocities. Normal velocities and waveforms in the popliteal and below-knee runoff vessels MOISE Reference: - >1.4 = calcified vessels - 0.9 - 1.4 = normal - no significant arterial disease - 0.7 - 0.89 = mild peripheral arterial disease - 0.51 - 0.69 = moderate peripheral arterial disease - ? 0.50 = severe peripheral arterial disease - < .30 = critical arterial disease Foot MRI 05/26/22 12:35 IMPRESSION: Dorsal and plantar soft tissue ulceration at the level of the distal 2nd metatarsal/MTP joint, with nonenhancing edematous tissue extending into the deep soft tissue/bone, could reflect phlegmonous change or sinus tracts. No drainable abscess seen. There also appears be plantar skin ulceration and nonenhancing phlegmonous tissue versus sinus tract extending to the 2nd proximal phalanx/MTP joint. Abnormal findings in the 2nd tarsometatarsal joint, the 2nd proximal phalanx and the 2nd metatarsal compatible with septic arthritis and osteomyelitis. Pathological fracture of the distal 2nd metatarsal neck. The osteomyelitis involving the 2nd metatarsal shaft, and could be extending to the level of the proximal base. Abnormal findings suspicious for osteomyelitis of the 2nd middle phalanx. Reactive edema versus osteomyelitis of the 2nd distal phalanx. Patient's postamputation of the 4th digit at the level of the distal metatarsal. Abnormal findings in the distal 4th metatarsal, suspicious for osteomyelitis. Second digit flexor tendon peritendinitis, and possible partial tearing. The distal aspect of the 2nd extensor tendon is not clearly visualized and integrity is not confirmed. Extensive intrinsic muscle edema/enhancement, could be related to diabetes versus inflammatory/infectious myositis. Abd US [id number] 05/26/22 18:00 IMPRESSION: Right leg: Normal ankle brachial index. Stent within the proximal to mid superficial femoral artery is patent with borderline elevated velocities within the stent and in the mid superficial femoral artery which appears stable. Patent flow in the below-knee runoff. Left leg: Normal ankle brachial index. Stent within the superficial femoral artery is patent with normal velocities. Normal velocities and waveforms in the popliteal and below-knee runoff vessels MOISE Reference: - >1.4 = calcified vessels - 0.9 - 1.4 = normal - no significant arterial disease - 0.7 - 0.89 = mild peripheral arterial disease - 0.51 - 0.69 = moderate peripheral arterial disease - ? 0.50 = severe peripheral arterial disease - < .30 = critical arterial disease Discharge Plan Discharge Patient Disposition: Home Health Service Discharge Diagnosis: Osteomyelitis of 2nd toe Referrals: [facility] [Outside] - 1 Week Fredy Adair PA-C [Primary Care Provider] - 1 Week Discharge Medications: New daptomycin 500 mg recon soln 500 mg IV Q24H Qty: 35 0RF Rx Instructions: administer over 30 mins Continued (DME) Curity Gauze 4 X 4 sponge See Rx Instructions .Route Qty: 1200 1RF Rx Instructions: As directed (DME) Rolled Gauze 4 X 75 bandage See Rx Instructions .Route Qty: 5 1RF Rx Instructions: As directed ferrous sulfate 325 mg (65 mg iron) tablet 325 mg PO BID 30 Days Qty: 60 3RF (DME) adhesive tape 2 X 72 tape See Rx Instructions .Route Qty: 12 0RF Rx Instructions: As directed amlodipine [Norvasc] 10 mg tablet 10 mg PO DAILY 30 Days Qty: 30 0RF Eliquis 5 mg tablet 5 mg PO BID 30 Days Qty: 60 0RF (DME) calcium alginate 4 X 4 bandage See Rx Instructions .Route Qty: 50 1RF Rx Instructions: As directed insulin lispro [Admelog SoloStar U-100 Insulin] 100 unit/mL insulin pen 4 unit subcut TID 30 Days Qty: 15 2RF omeprazole 40 mg capsule,delayed release(DR/EC) 40 mg PO DAILY 90 Days Qty: 90 0RF (DME) pen needle, diabetic [BD Ultra-Fine Karen Pen Needle] 32 gauge x 5/32 needle See Rx Instructions .ROUTE .MEDSUPPLY Qty: 100 1RF Rx Instructions: As directed lisinopril 20 mg tablet 20 mg PO DAILY 30 Days Qty: 30 0RF metformin 1,000 mg tablet 1,000 mg PO BID Qty: 60 3RF atorvastatin 40 mg tablet 1 tab PO DAILY (DME) blood sugar diagnostic Strip See Rx Instructions .ROUTE .MEDSUPPLY Qty: 10 Rx Instructions: As directed (DME) pen needle, diabetic 32 gauge x 5/32 needle See Rx Instructions subcut .MEDSUPPLY Qty: 50 Rx Instructions: As directed Changed insulin glargine [Basaglar KwikPen U-100 Insulin] 100 unit/mL (3 mL) insulin pen 30 unit subcut BID Qty: 15 0RF Discharge Orders: Discharge Order (Routine); Ordered 05/27/22 Ordered By: Kylah Sandoval Diet: Diabetic diet Activity on Discharge: As tolerated Stand Alone Forms: Patient Portal Discharge page Care Plan Goals: Read below Health Concerns: Read below Plan of Treatment: Read below Assessment: You were admitted to the hospital for evaluation of 2nd toe wound. Images were consistent with osteomyelitis of the toe. Evaluated by Infectious Disease, surgery team as cleaning was done under anesthesia for the wound. Discussed the need of amputation with surgery with decision to go home with IV antibiotics for total of 6 weeks. Continue IV antibiotics as prescribed Call [phone] for a follow up visit with dr [facility] from [facility]. Follow up with the wound clinic Increase Lantus to 30 units twice Daily To follow-up with Gastroenterology as outpatient for our and lower endoscopies. To follow-up with surgery as the patient to decide about the need of amputation Discharge Date/Time: 05/27/22 18:29
--- NOTE | 2022-05-27 15:32 | W.MHC.F2F ---
Service Date Service Date: 05/27/22 Encounter Date of encounter: 05/27/22 Reasons for Services Signs and symptoms assessed: Osteomyelitis, diabetic foot infection Reason for nursing home: wound care, administration of IV, SQ, or IM injection, central line care and teach disease management Homebound: Leaving the home is medically contraindicated at this time without the asist of a device and/or another person due th the listed conditions above and below. Reason homebound: other Certification: Based on the above findings, I certify that this patient is confined to the home and needs intermittent nursing home care, physical therapy and/or speech therapy, or continues to need occupational therapy. The patient is under my care, and I have initiated the establishment of the plan of care. The patient will be followed by a physician who will periodically review the plan of care.
[2022-05-27 15:33] VITALS: BP 96/53; PULSE 100; RESP 16; TEMP 36.6; O2SAT 97
--- NOTE | 2022-05-27 16:01 | MHC.CM.PN ---
HOME TODAY FOLLOWING [facility] AND [facility] START OF CARE TOMORROW 05/28/22 AFTER 14:00. RN AND UNIT AWARE OF PLAN. PATIENT TO TRANSPORT HOME
[2022-05-27 16:04] LABS: Glucose, Whole Blood 223 mg/dL (60-115)
--- NOTE | 2022-05-27 16:18 | P.PNGS_ITS ---
Subjective Subjective Date of Service: 06/05/22 Interval history: He denies any new complaints He says his right foot feels ?better? Physical Exam Vital Signs: Vital Signs: Last Vital Signs Temp 97.9 F 05/27/22 15:33 Pulse 100 05/27/22 15:33 Resp 16 05/27/22 15:33 BP 96/53 L 05/27/22 15:33 Pulse Ox 97 05/27/22 15:33 O2 Del Method 05/27/22 15:33 O2 Flow Rate 6 05/26/22 16:00 BMI result Body Mass Index 27.3 Const: General: comfortable and no acute distress Resp: Effort & Inspection: normal respiratory effort Cardio: Rate: regular rate Extrem: Other: I and D sites on the right foot without pus, some lytic changes and edema although this do not appear to be worse; the open wounds from the I&D sites are seen on the plantar aspect as well as the dorsal aspect near the base of the 2nd toe. The amputation site on the 4th toe appears well healed Objective Data Active Medications Acetaminophen (Acetaminophen 325 Mg Tablet) 650 mg PO Q6H PRN PRN Reason: Pain, Mild (Pain Scale 1-3) Last Admin: 05/24/22 15:31 Dose: 650 mg Documented By: NHI Albuterol Sulfate (Albuterol Sulfate (0.083%) 2.5 Mg/3 Ml Vial.Neb) 2.5 mg INHALE ONCE PRN PRN Reason: Wheezing Amlodipine Besylate (Amlodipine Besylate 10 Mg Tablet) 10 mg PO DAILY [facility]; Protocol Last Admin: 05/27/22 10:31 Dose: 10 mg Documented By: POLO Apixaban (Apixaban 5 Mg Tablet) 5 mg PO BID [facility] Last Admin: 05/27/22 10:31 Dose: 5 mg Documented By: POLO Atorvastatin Calcium (Atorvastatin Calcium 40 Mg Tablet) 40 mg PO DAILY [facility] Last Admin: 05/27/22 10:31 Dose: 40 mg Documented By: POLO Dextrose (Dextrose 50 % 25 Gm/50 Ml Syringe) 25 gm IVPUSH Q15M PRN; Protocol PRN Reason: per Hypoglycemia Standing Ord. Docusate Sodium (Docusate Sodium 100 Mg Capsule) 100 mg PO DAILY PRN PRN Reason: Constipation Last Admin: 05/24/22 10:21 Dose: 100 mg Documented By: MADINA Docusate Sodium (Docusate Sodium 100 Mg Capsule) 100 mg PO BID [facility] Last Admin: 05/27/22 10:31 Dose: 100 mg Documented By: POLO Fentanyl (Fentanyl Citrate/Pf 100 Mcg/2 Ml Vial) 50 mcg IVPUSH Q5M PRN; Protocol PRN Reason: Pain, Severe (Pain Scale 7-10) Ferrous Sulfate (Ferrous Sulfate 324 Mg Tablet.) 324 mg PO BID [facility] Last Admin: 05/23/22 20:26 Dose: 324 mg Documented By: DEBIIT Glucose (Glucose Gel 15 Gm Gel..Gram.) 15 gm PO Q15M PRN; Protocol PRN Reason: per Hypoglycemia Standing Ord. Hydromorphone HCl (Hydromorphone Hcl 0.5 Mg/0.5 Ml Syringe) 0.5 mg IVPUSH Q5M PRN; Protocol PRN Reason: Pain, Severe (Pain Scale 7-10) Promethazine HCl 12.5 mg/ (Sodium Chloride) 50.5 mls @ 202 mls/hr IV ONCE PRN PRN Reason: Nausea and Vomiting Daptomycin 500 mg/ Sodium (Chloride) 60 mls @ 100 mls/hr IV ONCE ONE Stop: 05/27/22 16:35 Insulin Glargine (Insulin Glargine,Hum.Rec.Anlog 100 Unit/Ml 10 Ml Vial) 30 unit SUBCUT BID [facility] Last Admin: 05/27/22 10:30 Dose: 30 unit Documented By: POLO Insulin Human Lispro (Insulin Lispro 100 Unit/Ml 3 Ml Vial) 0 unit SUBCUT QIDACHS [facility]; Protocol Last Admin: 05/27/22 12:33 Dose: 2 unit Documented By: POLO Insulin Human Lispro (Insulin Lispro 100 Unit/Ml 3 Ml Vial) 4 unit SUBCUT QIDACHS [facility] Last Admin: 05/27/22 12:33 Dose: 4 unit Documented By: POLO Lisinopril (Lisinopril 20 Mg Tablet) 20 mg PO DAILY [facility]; Protocol Last Admin: 05/27/22 10:31 Dose: 20 mg Documented By: POLO Omeprazole (Omeprazole 40 Mg Capsule.) 40 mg PO DAILY@0630 [facility] Last Admin: 05/27/22 05:42 Dose: 40 mg Documented By: ESPERANZA Ondansetron HCl (Ondansetron Hcl 4 Mg/2 Ml Vial) 4 mg IVPUSH Q8H PRN PRN Reason: Nausea and Vomiting Oxycodone HCl (Oxycodone Hcl Immed Release 5 Mg Tablet) 10 mg PO ONCE PRN PRN Reason: Pain, Severe (Pain Scale 7-10) Pharmacy Consult (Consult Rx Perform Med Rec) 1 each MISCELLANE ONCE PRN PRN Reason: Consult order Pharmacy Consult (Consult Rx Vancomycin Dosing) 1 each MISCELLANE DAILY PRN PRN Reason: Consult order Senna (Sennosides 8.6 Mg Tablet) 17.2 mg PO BEDTIME [facility] Last Admin: 05/26/22 20:49 Dose: 17.2 mg Documented By: ESPERANZA Sodium Chloride (0.9 % Sodium Chloride Flush 3 Ml Syringe) 3 ml IVFLUSH [facility] Last Admin: 05/27/22 15:45 Dose: Not Given Documented By: POLO Non-Admin Reason: Duplicate Order Sodium Chloride (0.9 % Sodium Chloride Flush 10 Ml Syringe) 5 ml IVFLUSH QSNMFT [facility] Last Admin: 05/27/22 15:53 Dose: Not Given Documented By: POLO Non-Admin Reason: Previously Administered Trazodone HCl (Trazodone Hcl 25 Mg Halftab) 25 mg PO BEDTIME PRN PRN Reason: Insomnia Last Admin: 05/24/22 21:09 Dose: 25 mg Documented By: NHI Labs CBC & Chem 7: 05/27/22 05:17 05/27/22 05:17 Labs: Laboratory Results - last 24 hr 05/26/22 05/26/22 05/27/22 16:05 19:49 05:17 MCV 82.8 MCH 25.3 L MCHC 30.6 L RDW 17.5 H Plt Count 398 D MPV 10.3 Absolute Nucleated RBC 0.000 Nucleated RBC % (auto) 0.0 Anion Gap Estim Creat Clear Calc Estimated GFR POC Glucose 267 H 187 H Random Glucose Calcium Vancomycin Trough 05/27/22 05/27/22 05/27/22 05:17 07:43 11:23 MCV MCH MCHC RDW Plt Count MPV Absolute Nucleated RBC Nucleated RBC % (auto) Anion Gap 15 Estim Creat Clear Calc 102.9 Estimated GFR > 60 POC Glucose 142 H 172 H Random Glucose 181 H D Calcium 8.2 L Vancomycin Trough 05/27/22 05/27/22 12:05 15:53 MCV MCH MCHC RDW Plt Count MPV Absolute Nucleated RBC Nucleated RBC % (auto) Anion Gap Estim Creat Clear Calc Estimated GFR POC Glucose 223 H Random Glucose Calcium Vancomycin Trough 13.5 Laboratory Results WBC 9.2 X10*3/uL (4.8-10.8) 05/27/22 05:17 RBC 3.20 X10*6/uL (4.60-5.80) L 05/27/22 05:17 Hgb 8.1 g/dl (14.0-18.0) L 05/27/22 05:17 Hct 26.5 % (42.0-52.0) L 05/27/22 05:17 MCV 82.8 fL (80.0-98.0) 05/27/22 05:17 MCH 25.3 pg (27.0-33.0) L 05/27/22 05:17 MCHC 30.6 g/dl (31.0-36.0) L 05/27/22 05:17 RDW 17.5 % (11.0-16.0) H 05/27/22 05:17 Plt Count 398 X10*3/uL (160-400) D 05/27/22 05:17 MPV 10.3 fL (9.4-12.4) 05/27/22 05:17 Immature Gran % (Auto) 0.6 % (0.0-0.4) H 05/22/22 06:32 Neut % (Auto) 70.1 % (45-73) 05/22/22 06:32 Lymph % (Auto) 15.4 % (20-40) L 05/22/22 06:32 [place] % (Auto) 11.3 % (2-11) H 05/22/22 06:32 Eos % (Auto) 2.1 % (0-4) 05/22/22 06:32 Baso % (Auto) 0.5 % (0-2) 05/22/22 06:32 Lymph # (Auto) 1.7 X10*3/uL (1.2-4.9) 05/22/22 06:32 [place] # (Auto) 1.2 X10*3/uL (0.1-1.2) 05/22/22 06:32 Eos # (Auto) 0.2 X10*3/uL (0.0-0.4) 05/22/22 06:32 Baso # (Auto) 0.1 X10*3/uL (0.0-0.2) 05/22/22 06:32 Abs Immat Gran (auto) 0.06 X10*3/uL (0.00-0.03) H 05/22/22 06:32 Absolute Neuts (auto) 7.5 x10*3/uL (2.0-8.3) 05/22/22 06:32 Absolute Nucleated RBC 0.000 X10*3/uL (0.0-0.012) 05/27/22 05:17 Nucleated RBC % (auto) 0.0 /100WBC (0.0-0.2) 05/27/22 05:17 PT 14.7 SEC (10.0-13.1) H 05/21/22 17:32 INR 1.3 (0.9-1.1) H 05/21/22 17:32 Sodium 138 mmol/L (135-145) 05/27/22 05:17 Potassium 4.4 mmol/L (3.3-5.1) 05/27/22 05:17 Chloride 105 mmol/L (96-108) 05/27/22 05:17 Carbon Dioxide 22 mmol/L (22-29) 05/27/22 05:17 Anion Gap 15 (12-20) 05/27/22 05:17 BUN 9 mg/dL (9-16) 05/27/22 05:17 Creatinine 0.84 mg/dL (0.5-1.4) 05/27/22 05:17 Estim Creat Clear Calc 102.9 05/27/22 05:17 Estimated GFR > 60 05/27/22 05:17 POC Glucose 223 mg/dL (60-115) H 05/27/22 15:53 Random Glucose 181 mg/dL (60-115) H D 05/27/22 05:17 Estimat Average Glucose 252 mg/dL 05/22/22 06:32 Hemoglobin A1c % 10.4 % 05/22/22 06:32 Lactic Acid 1.0 mmol/L (0.5-2.0) 05/21/22 15:50 Calcium 8.2 mg/dL (8.4-10.2) L 05/27/22 05:17 Iron 30 mcg/dL (45-160) L 05/22/22 06:32 TIBC 245 mcg/dL (228-428) 05/22/22 06:32 % Saturation 12 % (15-50) L 05/22/22 06:32 Unsat Iron Binding 215 ug/dL 05/22/22 06:32 Ferritin 43 ng/mL (20-250) 05/21/22 20:11 Total Bilirubin 0.5 mg/dL (0.0-1.0) 05/21/22 15:49 Direct Bilirubin 0.3 mg/dL (0.0-0.5) 05/21/22 15:49 AST 12 U/L (5-37) 05/21/22 15:49 ALT 12 U/L (0-40) 05/21/22 15:49 Alkaline Phosphatase 110 U/L (39-117) 05/21/22 15:49 Troponin I High Sens 18.0 ng/L (<3.5-35.0) 05/21/22 15:50 Total Protein 7.2 g/dL (6.5-8.0) 05/21/22 15:49 Albumin 3.2 g/dL (3.5-5.0) L 05/21/22 15:49 Vitamin B12 929 pg/mL (200-900) H 05/21/22 20:11 Folate 12.6 ng/mL (> or = 4.0) 05/21/22 20:11 Stool Occult Blood NEGATIVE (NEGATIVE) 05/21/22 17:32 Vancomycin Trough 13.5 mcg/mL (10.0-20.0) 05/27/22 12:05 Urine Opiates Screen Not Detected (Not Detect) 05/23/22 00:11 Urine Fentanyl Screen Not Detected (Not Detect) 05/23/22 00:11 Ur Barbiturates Screen Not Detected (Not Detect) 05/23/22 00:11 Ur Phencyclidine Scrn Not Detected (Not Detect) 05/23/22 00:11 Ur Amphetamines Screen Not Detected (Not Detect) 05/23/22 00:11 U Benzodiazepines Scrn Not Detected (Not Detect) 05/23/22 00:11 Urine Cocaine Screen POSITIVE (Not Detect) H 05/23/22 00:11 U Marijuana (THC) Screen Not Detected (Not Detect) 05/23/22 00:11 COVID-19 (DELIA) Negative (Negative) 05/21/22 15:49 COVID-19 Clin Com See Note 05/21/22 15:49 Blood Type A Positive 05/21/22 15:48 Antibody Screen NEGATIVE 05/21/22 15:48 Crossmatch See Detail 05/21/22 15:48 Impressions Chest X-Ray 05/21/22 16:04 IMPRESSION: Clear lungs. Foot X-Ray 05/21/22 16:04 IMPRESSION: Destructive changes at the second metatarsophalangeal joint, concerning for osteomyelitis with lucency and erosion. Likely associated fracture at the base of the proximal phalanx. Chest CT 05/21/22 18:39 IMPRESSION: -A few mildly enlarged mediastinal lymph nodes are noted, nonspecific. -Tiny bilateral pleural effusions. Fleischner guidelines were followed. Foot MRI 05/26/22 12:35 IMPRESSION: Dorsal and plantar soft tissue ulceration at the level of the distal 2nd metatarsal/MTP joint, with nonenhancing edematous tissue extending into the deep soft tissue/bone, could reflect phlegmonous change or sinus tracts. No drainable abscess seen. There also appears be plantar skin ulceration and nonenhancing phlegmonous tissue versus sinus tract extending to the 2nd proximal phalanx/MTP joint. Abnormal findings in the 2nd tarsometatarsal joint, the 2nd proximal phalanx and the 2nd metatarsal compatible with septic arthritis and osteomyelitis. Pathological fracture of the distal 2nd metatarsal neck. The osteomyelitis involving the 2nd metatarsal shaft, and could be extending to the level of the proximal base. Abnormal findings suspicious for osteomyelitis of the 2nd middle phalanx. Reactive edema versus osteomyelitis of the 2nd distal phalanx. Patient's postamputation of the 4th digit at the level of the distal metatarsal. Abnormal findings in the distal 4th metatarsal, suspicious for osteomyelitis. Second digit flexor tendon peritendinitis, and possible partial tearing. The distal aspect of the 2nd extensor tendon is not clearly visualized and integrity is not confirmed. Extensive intrinsic muscle edema/enhancement, could be related to diabetes versus inflammatory/infectious myositis. Abd US [id number] 05/26/22 18:00 IMPRESSION: Right leg: Normal ankle brachial index. Stent within the proximal to mid superficial femoral artery is patent with borderline elevated velocities within the stent and in the mid superficial femoral artery which appears stable. Patent flow in the below-knee runoff. Left leg: Normal ankle brachial index. Stent within the superficial femoral artery is patent with normal velocities. Normal velocities and waveforms in the popliteal and below-knee runoff vessels MOISE Reference: - >1.4 = calcified vessels - 0.9 - 1.4 = normal - no significant arterial disease - 0.7 - 0.89 = mild peripheral arterial disease - 0.51 - 0.69 = moderate peripheral arterial disease - ? 0.50 = severe peripheral arterial disease - < .30 = critical arterial disease Microbiology Microbiology Results: Microbiology 05/25/22 Unknown Gram Stain - Final Foot Right Routine Culture - Final 05/21/22 15:49 Blood Culture - Final Blood - Venous No growth after 5 days. 05/21/22 15:29 Blood Culture - Final Blood - Venous No growth after 5 days. Procedures Date of Service Date of Service: 05/27/22 Progress Note: A&P Assessment and plan (1) Osteomyelitis: Status: Acute Assessment and Plan: His MRI shows a lot of labs are changes in the soft tissue surrounding the 2nd toe including the metatarsal. There was note of some mild it was as well of the toe itself all the way to the distal metatarsal. There are some phlegmonous changes surrounding this well there is no drainable fluid. In view of the above changes osteomyelitis, he will likely require amputation at the metatarsal. However, currently, there is a lot of inflammatory changes in the soft tissues surrounding this, so it may be worthwhile to goal this done with IV antibiotics. Otherwise, there is the very high risk of poor healing and breakdown of the surgical site with amputation. He did state that he would like to try IV antibiotics as well for now. He already has a PICC line in place. He will need close monitoring however if he decides to go this route. He does understand that in my judgment, he will likely require amputation anyhow. Time Spent With Patient Time: Total time spent is greater than 50% in coordination of care (as documented) at patient's floor/unit and/or counseling patient: Quality Stroke Does the patient have a stroke diagnosis?: No VTE Prior VTE?: No VTE Risk Level:: Medical - moderate - high VTE Device Contraindication: Treatment Not Indicated VTE Drug Contraindication: N/A - Med Ordered
[2022-05-27] MEDS: DAPTOmycin 500 MG in 0.9 % Sodium Chloride 50 ML 100 MG IV (17:25)
== END 2022-05-27 18:29 | disposition home health service (06) | DRG 344 ==
LOC: HO.ED 18:36 → HO.EDOVER 20:09 → HO.S3 05-22 15:38
PROVIDERS: Physician Assistant; Surgery; Admitting Provider Internal Medicine; Emergency Provider Internal Medicine; PCP Physician Assistant; Visit Provider Student in an Organized Health Care Education/Training Program
PROC: 0H9MXZZ Drainage of Right Foot Skin, External Approach (ICD-10-PCS; principal; 2022-05-25 11:00)
DX: E11.69 Type 2 diabetes mellitus with other specified complication (principal); M86.171 Other acute osteomyelitis, right ankle and foot; E11.51 Type 2 diabetes mellitus with diabetic peripheral angiopathy without gangrene; E11.621 Type 2 diabetes mellitus with foot ulcer; R04.2 Hemoptysis; L97.519 Non-pressure chronic ulcer of other part of right foot with unspecified severity; D50.9 Iron deficiency anemia, unspecified; E11.65 Type 2 diabetes mellitus with hyperglycemia; I10 Essential (primary) hypertension; L02.611 Cutaneous abscess of right foot; Z20.822 Contact with and (suspected) exposure to COVID-19; M86.671 Other chronic osteomyelitis, right ankle and foot; Z79.01 Long term (current) use of anticoagulants; Z87.891 Personal history of nicotine dependence; Z91.14 Patient's other noncompliance with medication regimen; Z79.4 Long term (current) use of insulin; Z79.84 Long term (current) use of oral hypoglycemic drugs; Z79.899 Other long term (current) drug therapy
CPT/HCPCS: 36415; 36430; 36573; 71045; 71260; 73630; 73720; 80048; 80076; 80202; 80307; 82272; 82565; 82607; 82728; 82746; 82947; 83036; 83540; 83605; 84484; 85025; 85027; 85610; 86850; 86900; 86901; 86923; 87040; 87071; 87205; 87635; 93005; 93923; 93925; 96361; 96365; 96367; 99285; A9585; C1751; J0878; J1756; J1940; J2405; J2543; J2916; J3010; J3370; P9016; Q9967

== ENCOUNTER → 2022-05-30 10:15 | Outpatient (BNVA) | payer OTHER, SELFPAY | PROVIDERS: PCP Physician Assistant; Visit Provider Internal Medicine | DX: E10.621 Type 1 diabetes mellitus with foot ulcer (principal); L97.419 Non-pressure chronic ulcer of right heel and midfoot with unspecified severity | CPT/HCPCS: 99212 ==

== ENCOUNTER 2022-06-02 11:07 | Outpatient (REF) | payer OTHER, SELFPAY ==
[2022-06-02 11:13] LABS: MANUAL DIFF FLAG NO
[2022-06-02 11:26] LABS: Basophils Absolute Auto 0.1 X10*3/uL (0.0-0.2); Basophils Percent Auto 0.9 % (0-2); Eosinophils Absolute Auto 0.3 X10*3/uL (0.0-0.4); Eosinophils Percent Auto 3.2 % (0-4); Hematocrit 22.2 % (42.0-52.0); Imm Gran Abs Auto 0.03 X10*3/uL (0.00-0.03); Imm Gran Pct Auto 0.4 % (0.0-0.4); Lymphocytes Absolute Auto 1.4 X10*3/uL (1.2-4.9); Lymphocytes Percent Auto 16.6 % (20-40); Mean Corpuscular HGB Conc 30.6 g/dl (31.0-36.0); Mean Corpuscular Hemoglobin 25.8 pg (27.0-33.0); Mean Corpuscular Volume 84.1 fL (80.0-98.0); Monocytes Absolute Auto 0.6 X10*3/uL (0.1-1.2); Monocytes Percent Auto 7.6 % (2-11); Neutrophils Absolute Auto 5.8 x10*3/uL (2.0-8.3); Neutrophils Percent Auto 71.3 % (45-73); Platelet Count 481 X10*3/uL (160-400); Red Blood Count 2.64 X10*6/uL (4.60-5.80); Red Cell Distribution Width 18.7 % (11.0-16.0); White Blood Count 8.2 X10*3/uL (4.8-10.8)
[2022-06-02 11:32] LABS: Anion Gap 14 (12-20); Blood Urea Nitrogen 13 mg/dL (9-16); Calcium 8.2 mg/dL (8.4-10.2); Carbon Dioxide 19 mmol/L (22-29); Chloride 108 mmol/L (96-108); Estimated Glomerular Filt Rate > 60; Glucose Random 229 mg/dL (60-115); Potassium 4.2 mmol/L (3.3-5.1); Sodium 137 mmol/L (135-145)
[2022-06-02 11:37] LABS: Hemoglobin 6.8 g/dl (14.0-18.0)
== END 2022-06-02 11:08 | disposition home or self-care (01) ==
LOC: HO.HVNA 11:07
PROVIDERS: Visit Provider Internal Medicine
DX: M86.171 Other acute osteomyelitis, right ankle and foot (principal)
CPT/HCPCS: 36415; 80048; 85025

== ENCOUNTER 2022-06-05 11:04 | Outpatient (REF) | payer OTHER, SELFPAY ==
--- NOTE | ~2022-06-05 | US_ITS ---
EXAMINATION: BILATERAL LOWER EXTREMITY arterial DUPLEX Maylin Cohen MD CLINICAL INFORMATION: Peripheral vascular disease TECHNIQUE: duplex Doppler techniques with wave form analysis and measurement of velocities in the common femoral, profunda femoral, superficial femoral, popliteal and tibial arteries. The study was performed only at rest. COMPARISON: Bilateral lower extremity PVR and arterial duplex on 05/26/2022 FINDINGS: Right lower extremity: Common femoral artery: 115 cm/s, Multiphasic Profunda femoris artery: 135 cm/s, Multiphasic Superficial femoral artery (proximal): 133 cm/s, Multiphasic Superficial femoral artery (mid): 152 cm/s, Multiphasic within the stent Superficial femoral artery (distal): 329 cm/s, Multiphasic within stent Proximal Popliteal artery: 127 cm/s, Multiphasic Mid posterior tibial artery: 182 cm/s, Multiphasic Left lower extremity: Common femoral artery: 156 cm/s, Multiphasic Profunda femoris artery: 105 cm/s, Multiphasic Superficial femoral artery (proximal): 208 cm/s, Multiphasic Superficial femoral artery (mid): 100 cm/s, Multiphasic within stent Superficial femoral artery (distal): 162 cm/s, Multiphasic Proximal Popliteal artery: 129 cm/s, Multiphasic Mid posterior tibial artery: 158 cm/s, Multiphasic Prominent bilateral inguinal lymph nodes. US/US arterial duplex LE BI IMPRESSION: Right leg: Extent in the proximal-mid superficial femoral artery is patent but with elevated velocities. Left leg: Stepped within the mid superficial femoral artery is patent with normal velocities. Exam is unchanged compared to one week prior.
== END 2022-06-05 11:05 | disposition home or self-care (01) ==
LOC: HO.US 11:04
PROVIDERS: Visit Provider Surgery Vascular Surgery
DX: I73.9 Peripheral vascular disease, unspecified (principal)
CPT/HCPCS: 93925

== ENCOUNTER 2022-06-09 12:47 | Outpatient (REF) | payer OTHER, SELFPAY ==
[2022-06-09 12:52] LABS: MANUAL DIFF FLAG NO
[2022-06-09 13:08] LABS: Basophils Absolute Auto 0.1 X10*3/uL (0.0-0.2); Basophils Percent Auto 0.7 % (0-2); Eosinophils Absolute Auto 0.3 X10*3/uL (0.0-0.4); Eosinophils Percent Auto 4.9 % (0-4); Hematocrit 23.3 % (42.0-52.0); Hemoglobin 7.2 g/dl (14.0-18.0); Imm Gran Abs Auto 0.02 X10*3/uL (0.00-0.03); Imm Gran Pct Auto 0.3 % (0.0-0.4); Lymphocytes Absolute Auto 1.6 X10*3/uL (1.2-4.9); Lymphocytes Percent Auto 22.6 % (20-40); Mean Corpuscular HGB Conc 30.9 g/dl (31.0-36.0); Mean Corpuscular Volume 84.1 fL (80.0-98.0); Monocytes Absolute Auto 0.6 X10*3/uL (0.1-1.2); Monocytes Percent Auto 9.3 % (2-11); Neutrophils Absolute Auto 4.3 x10*3/uL (2.0-8.3); Neutrophils Percent Auto 62.2 % (45-73); Platelet Count 429 X10*3/uL (160-400); Red Blood Count 2.77 X10*6/uL (4.60-5.80); Red Cell Distribution Width 19.5 % (11.0-16.0); White Blood Count 6.9 X10*3/uL (4.8-10.8)
[2022-06-09 14:24] LABS: Anion Gap 10 (12-20); Blood Urea Nitrogen 11 mg/dL (9-16); Carbon Dioxide 18 mmol/L (22-29); Chloride 119 mmol/L (96-108); Estimated Glomerular Filt Rate > 60; Glucose Random 146 mg/dL (60-115); Potassium 3.1 mmol/L (3.3-5.1); Sodium 144 mmol/L (135-145)
== END 2022-06-09 12:48 | disposition home or self-care (01) ==
LOC: HO.HVNA 12:47
PROVIDERS: Internal Medicine; Visit Provider Internal Medicine
DX: M86.171 Other acute osteomyelitis, right ankle and foot (principal); Z45.2 Encounter for adjustment and management of vascular access device
CPT/HCPCS: 36415; 80048; 85025

== ENCOUNTER → 2022-06-10 12:52 | Outpatient (BNVA) | payer OTHER, SELFPAY | PROVIDERS: PCP Physician Assistant; Visit Provider Surgery Vascular Surgery | DX: E11.621 Type 2 diabetes mellitus with foot ulcer (principal); L97.509 Non-pressure chronic ulcer of other part of unspecified foot with unspecified severity; I73.9 Peripheral vascular disease, unspecified | CPT/HCPCS: 99212 ==

== ENCOUNTER → 2022-06-13 13:18 | Outpatient (BNVA) | payer OTHER, SELFPAY | PROVIDERS: Visit Provider Internal Medicine | DX: M86.9 Osteomyelitis, unspecified (principal) | CPT/HCPCS: 99212 ==

== ENCOUNTER 2022-06-16 11:51 | Outpatient (REF) | payer OTHER, SELFPAY ==
[2022-06-16 11:55] LABS: MANUAL DIFF FLAG NO
[2022-06-16 11:59] LABS: Basophils Percent Auto 0.4 % (0-2); Eosinophils Absolute Auto 0.1 X10*3/uL (0.0-0.4); Eosinophils Percent Auto 0.7 % (0-4); Hematocrit 26.6 % (42.0-52.0); Hemoglobin 8.2 g/dl (14.0-18.0); Imm Gran Abs Auto 0.02 X10*3/uL (0.00-0.03); Imm Gran Pct Auto 0.3 % (0.0-0.4); Lymphocytes Absolute Auto 1.2 X10*3/uL (1.2-4.9); Lymphocytes Percent Auto 18.3 % (20-40); Mean Corpuscular HGB Conc 30.8 g/dl (31.0-36.0); Mean Corpuscular Hemoglobin 26.3 pg (27.0-33.0); Mean Corpuscular Volume 85.3 fL (80.0-98.0); Mean Platelet Volume 9.5 fL (9.4-12.4); Monocytes Absolute Auto 0.5 X10*3/uL (0.1-1.2); Monocytes Percent Auto 6.9 % (2-11); Neutrophils Absolute Auto 4.9 x10*3/uL (2.0-8.3); Neutrophils Percent Auto 73.4 % (45-73); Platelet Count 435 X10*3/uL (160-400); Red Blood Count 3.12 X10*6/uL (4.60-5.80); Red Cell Distribution Width 19.1 % (11.0-16.0); White Blood Count 6.7 X10*3/uL (4.8-10.8)
[2022-06-16 12:31] LABS: Anion Gap 15 (12-20); Blood Urea Nitrogen 13 mg/dL (9-16); Calcium 8.8 mg/dL (8.4-10.2); Carbon Dioxide 24 mmol/L (22-29); Chloride 102 mmol/L (96-108); Estimated Glomerular Filt Rate > 60; Glucose Random 250 mg/dL (60-115); Potassium 4.4 mmol/L (3.3-5.1); Sodium 137 mmol/L (135-145)
== END 2022-06-16 11:52 | disposition home or self-care (01) ==
LOC: HO.HVNA 11:51
PROVIDERS: Visit Provider Internal Medicine
DX: M86.171 Other acute osteomyelitis, right ankle and foot (principal); D64.9 Anemia, unspecified
CPT/HCPCS: 36415; 80048; 82550; 85025

== ENCOUNTER 2022-06-23 12:01 | Outpatient (REF) | payer OTHER, SELFPAY ==
[2022-06-23 12:24] LABS: MANUAL DIFF FLAG NO
[2022-06-23 12:42] LABS: Basophils Percent Auto 0.4 % (0-2); Eosinophils Absolute Auto 0.3 X10*3/uL (0.0-0.4); Hematocrit 27.6 % (42.0-52.0); Hemoglobin 8.3 g/dl (14.0-18.0); Imm Gran Abs Auto 0.03 X10*3/uL (0.00-0.03); Imm Gran Pct Auto 0.3 % (0.0-0.4); Lymphocytes Absolute Auto 1.5 X10*3/uL (1.2-4.9); Lymphocytes Percent Auto 16.9 % (20-40); Mean Corpuscular HGB Conc 30.1 g/dl (31.0-36.0); Mean Corpuscular Hemoglobin 26.1 pg (27.0-33.0); Mean Corpuscular Volume 86.8 fL (80.0-98.0); Mean Platelet Volume 9.2 fL (9.4-12.4); Monocytes Absolute Auto 0.8 X10*3/uL (0.1-1.2); Neutrophils Absolute Auto 6.3 x10*3/uL (2.0-8.3); Neutrophils Percent Auto 70.4 % (45-73); Platelet Count 399 X10*3/uL (160-400); Red Blood Count 3.18 X10*6/uL (4.60-5.80); Red Cell Distribution Width 19.7 % (11.0-16.0); White Blood Count 8.9 X10*3/uL (4.8-10.8)
[2022-06-23 12:55] LABS: Anion Gap 16 (12-20); Blood Urea Nitrogen 20 mg/dL (9-16); Calcium 8.7 mg/dL (8.4-10.2); Carbon Dioxide 20 mmol/L (22-29); Chloride 107 mmol/L (96-108); Estimated Glomerular Filt Rate > 60; Glucose Random 144 mg/dL (60-115); Potassium 4.4 mmol/L (3.3-5.1); Sodium 139 mmol/L (135-145)
== END 2022-06-23 12:02 | disposition home or self-care (01) ==
LOC: HO.HVNA 12:01
PROVIDERS: Visit Provider Internal Medicine
DX: L97.519 Non-pressure chronic ulcer of other part of right foot with unspecified severity (principal); M86.171 Other acute osteomyelitis, right ankle and foot; Z45.2 Encounter for adjustment and management of vascular access device
CPT/HCPCS: 36415; 80048; 82550; 85025

== ENCOUNTER → 2022-06-30 08:36 | Outpatient (BNV) | payer MEDICARE, OTHER, SELFPAY | PROVIDERS: PCP Physician Assistant; Referring Provider Physician Assistant; Visit Provider Internal Medicine Medical Oncology | DX: D64.9 Anemia, unspecified (principal) | CPT/HCPCS: 99204; 99212; 99213 ==

== ENCOUNTER → 2022-06-30 11:22 | Outpatient (BNVA) | payer OTHER, SELFPAY | PROVIDERS: PCP Physician Assistant; Visit Provider Surgery | DX: M86.9 Osteomyelitis, unspecified (principal) | CPT/HCPCS: 99212 ==

== ENCOUNTER 2022-06-30 15:13 | Outpatient (REF) | payer OTHER, SELFPAY ==
[2022-06-30 15:21] LABS: MANUAL DIFF FLAG NO
[2022-06-30 15:29] LABS: Basophils Absolute Auto 0.1 X10*3/uL (0.0-0.2); Basophils Percent Auto 0.6 % (0-2); Eosinophils Absolute Auto 0.4 X10*3/uL (0.0-0.4); Hematocrit 28.7 % (42.0-52.0); Hemoglobin 8.7 g/dl (14.0-18.0); Imm Gran Abs Auto 0.02 X10*3/uL (0.00-0.03); Imm Gran Pct Auto 0.3 % (0.0-0.4); Lymphocytes Percent Auto 25.2 % (20-40); Mean Corpuscular HGB Conc 30.3 g/dl (31.0-36.0); Mean Corpuscular Hemoglobin 26.1 pg (27.0-33.0); Mean Corpuscular Volume 86.2 fL (80.0-98.0); Mean Platelet Volume 9.3 fL (9.4-12.4); Monocytes Absolute Auto 0.6 X10*3/uL (0.1-1.2); Monocytes Percent Auto 7.8 % (2-11); Neutrophils Absolute Auto 4.7 x10*3/uL (2.0-8.3); Neutrophils Percent Auto 61.1 % (45-73); Platelet Count 286 X10*3/uL (160-400); Red Blood Count 3.33 X10*6/uL (4.60-5.80); Red Cell Distribution Width 18.2 % (11.0-16.0); White Blood Count 7.7 X10*3/uL (4.8-10.8)
[2022-06-30 15:53] LABS: Anion Gap 15 (12-20); Blood Urea Nitrogen 23 mg/dL (9-16); Calcium 8.8 mg/dL (8.4-10.2); Carbon Dioxide 21 mmol/L (22-29); Chloride 108 mmol/L (96-108); Estimated Glomerular Filt Rate > 60; Glucose Random 209 mg/dL (60-115); Potassium 4.4 mmol/L (3.3-5.1); Sodium 140 mmol/L (135-145)
== END 2022-06-30 15:14 | disposition home or self-care (01) ==
LOC: HO.HVNA 15:13
PROVIDERS: Visit Provider Internal Medicine
DX: L97.519 Non-pressure chronic ulcer of other part of right foot with unspecified severity (principal); M86.171 Other acute osteomyelitis, right ankle and foot; D64.9 Anemia, unspecified
CPT/HCPCS: 36415; 80048; 82550; 85025

== ENCOUNTER 2022-07-07 10:57 | Outpatient (REF) | payer OTHER, SELFPAY ==
[2022-07-07 11:01] LABS: MANUAL DIFF FLAG NO
[2022-07-07 11:04] LABS: Basophils Absolute Auto 0.1 X10*3/uL (0.0-0.2); Basophils Percent Auto 0.6 % (0-2); Eosinophils Absolute Auto 0.4 X10*3/uL (0.0-0.4); Eosinophils Percent Auto 4.5 % (0-4); Hematocrit 28.1 % (42.0-52.0); Hemoglobin 8.8 g/dl (14.0-18.0); Imm Gran Abs Auto 0.02 X10*3/uL (0.00-0.03); Imm Gran Pct Auto 0.2 % (0.0-0.4); Lymphocytes Absolute Auto 1.6 X10*3/uL (1.2-4.9); Lymphocytes Percent Auto 19.6 % (20-40); Mean Corpuscular HGB Conc 31.3 g/dl (31.0-36.0); Mean Corpuscular Hemoglobin 26.3 pg (27.0-33.0); Mean Corpuscular Volume 83.9 fL (80.0-98.0); Mean Platelet Volume 9.3 fL (9.4-12.4); Monocytes Absolute Auto 0.7 X10*3/uL (0.1-1.2); Monocytes Percent Auto 8.9 % (2-11); Neutrophils Absolute Auto 5.4 x10*3/uL (2.0-8.3); Neutrophils Percent Auto 66.2 % (45-73); Platelet Count 297 X10*3/uL (160-400); Red Blood Count 3.35 X10*6/uL (4.60-5.80); Red Cell Distribution Width 17.5 % (11.0-16.0); White Blood Count 8.2 X10*3/uL (4.8-10.8)
[2022-07-07 12:12] LABS: Anion Gap 14 (12-20); Blood Urea Nitrogen 17 mg/dL (9-16); Calcium 8.8 mg/dL (8.4-10.2); Carbon Dioxide 23 mmol/L (22-29); Chloride 104 mmol/L (96-108); Estimated Glomerular Filt Rate > 60; Glucose Random 257 mg/dL (60-115); Potassium 4.1 mmol/L (3.3-5.1); Sodium 137 mmol/L (135-145)
== END 2022-07-07 10:58 | disposition home or self-care (01) ==
LOC: HO.HVNA 10:57
PROVIDERS: Visit Provider Internal Medicine
DX: L97.519 Non-pressure chronic ulcer of other part of right foot with unspecified severity (principal); M86.171 Other acute osteomyelitis, right ankle and foot; D64.9 Anemia, unspecified
CPT/HCPCS: 36415; 80048; 82550; 85025

== ENCOUNTER → 2022-07-08 10:37 | Outpatient (BNVA) | payer OTHER, SELFPAY | PROVIDERS: PCP Physician Assistant; Visit Provider Internal Medicine | DX: M86.9 Osteomyelitis, unspecified (principal) | CPT/HCPCS: 99212 ==

== ENCOUNTER 2022-07-10 13:57 | Outpatient (REF) | payer OTHER, SELFPAY | END 2022-07-10 13:58 | disposition home or self-care (01) | LOC: HO.RADIR 13:57 | PROVIDERS: PCP Physician Assistant; Visit Provider Internal Medicine | DX: Z13.89 Encounter for screening for other disorder (principal) ==

== ENCOUNTER 2022-07-14 08:36 | Outpatient (REF) | payer OTHER, SELFPAY ==
--- NOTE | ~2022-07-14 | XR_ITS ---
EXAMINATION: XR CHEST CLINICAL INFORMATION: Pleural effusion, not otherwise classified COMPARISON: 05/21/2022. TECHNIQUE: 2 views of the chest were obtained. Examination at low lung volumes. FINDINGS: Compression of parenchymal markings noted at low lung volumes. Atelectatic changes observed toward the bases. Small patchy opacity of the right upper lobe may reflect small infiltrate or atelectasis. There are new pleural effusions since the previous evaluation, left greater than right. Pulmonary vascularity appears grossly unchanged. XR/XR chest 2V IMPRESSION: New pleural effusions, left greater than right. Atelectatic changes observed toward the bases. Small patchy opacity of the right upper lobe may reflect a small infiltrate or atelectatic change.
== END 2022-07-14 08:37 | disposition home or self-care (01) ==
LOC: HO.XRAY 08:36
PROVIDERS: PCP Physician Assistant; Visit Provider Physician Assistant
DX: J90 Pleural effusion, not elsewhere classified (principal)
CPT/HCPCS: 71046

== ENCOUNTER → 2022-08-01 08:36 | Outpatient (BNVA) | payer OTHER, SELFPAY | PROVIDERS: PCP Physician Assistant; Visit Provider Internal Medicine Endocrinology, Diabetes & Metabolism | DX: E11.52 Type 2 diabetes mellitus with diabetic peripheral angiopathy with gangrene (principal); Z79.4 Long term (current) use of insulin | CPT/HCPCS: 82947; 83036; 99202 ==

== ENCOUNTER 2022-08-05 08:13 | Outpatient (REF) | payer OTHER, SELFPAY ==
[2022-08-05 10:11] LABS: Anion Gap 16 (12-20); Carbon Dioxide 22 mmol/L (22-29); Chloride 108 mmol/L (96-108); Magnesium 1.8 mg/dL (1.6-2.6); Phosphorus 3.5 mg/dL (2.7-4.5); Potassium 4.5 mmol/L (3.3-5.1); Sodium 141 mmol/L (135-145)
[2022-08-08 19:37] LABS: Glutamic acid decarboxylase Ab <5 IU/mL (<5)
== END 2022-08-05 08:14 | disposition home or self-care (01) ==
LOC: HO.LAB 08:13
PROVIDERS: Absent Provider Internal Medicine Endocrinology, Diabetes & Metabolism; PCP Physician Assistant; Visit Provider Physician Assistant
DX: E11.52 Type 2 diabetes mellitus with diabetic peripheral angiopathy with gangrene (principal); Z79.4 Long term (current) use of insulin
CPT/HCPCS: 36415; 80051; 83735; 84100; 86341

== ENCOUNTER 2022-09-18 09:59 | Outpatient (REF) | payer OTHER, SELFPAY ==
--- NOTE | ~2022-09-18 | XR_ITS ---
EXAMINATION: XR CHEST CLINICAL INFORMATION: Shortness of breath. COMPARISON: 07/14/2022 chest radiographs, chest CT scan and radiographs dated 05/21/2022 TECHNIQUE: 2 views of the chest were obtained. FINDINGS: There is mild prominence of the pulmonary vasculature. Minimal blunting of the costophrenic angles is seen bilaterally. The costophrenic sulci are clear. The heart and mediastinal structures are unremarkable. XR/XR chest 2V IMPRESSION: Mild prominence of the pulmonary vasculature may be projectional however mild congestion cannot be excluded. Bilateral small pleural effusions have improved.
== END 2022-09-18 10:00 | disposition home or self-care (01) ==
LOC: HO.XRAY 09:59
PROVIDERS: PCP Physician Assistant; Visit Provider Nurse Practitioner Family
DX: R06.02 Shortness of breath (principal)
CPT/HCPCS: 71046

== ENCOUNTER → 2022-09-24 08:28 | Outpatient (BNVA) | payer OTHER, SELFPAY | PROVIDERS: PCP Physician Assistant; Visit Provider Registered Nurse Diabetes Educator | DX: E11.621 Type 2 diabetes mellitus with foot ulcer (principal); L97.414 Non-pressure chronic ulcer of right heel and midfoot with necrosis of bone; E11.52 Type 2 diabetes mellitus with diabetic peripheral angiopathy with gangrene; I73.9 Peripheral vascular disease, unspecified; Z89.421 Acquired absence of other right toe(s); Z79.4 Long term (current) use of insulin | CPT/HCPCS: 99211 ==

== ENCOUNTER → 2022-10-01 08:27 | Outpatient (REF) | payer OTHER, SELFPAY ==
--- NOTE | 2022-10-01 08:40 | CA_ITS ---
Transthoracic Echocardiogram Patient (Last, First, Middle): Irving Barry, Gender: Male Date of : 1970 Age: 51 Procedure Date: 10/01/2022 Procedure Type: Transthoracic Echocardiogram Location: OP Height: 170.18 cm Weight: 90.72 kg BSA: 2.02 m2 Heart Rate: 83 bpm BP: 155 / 90 mmHg Client Support Associate: SAÚL Referring MD: Tootie TEMPLE Symptoms: R06.02 - Shortness of breath Study Quality: Good ECG Rhythm: Sinus Conclusions: - The left ventricular systolic function is mildly decreased. The visually estimated ejection fraction is between 40-45%. - There is severely increased left ventricular wall thickness. - The inferolateral wall and basal inferior segment are akinetic. - The left atrium is severely dilated. - No obvious valvular pathology seen on this study. Findings Left Ventricle Normal left ventricular cavity size. There is severely increased left ventricular wall thickness. The left ventricular systolic function is mildly decreased. The visually estimated ejection fraction is between 40-45%. E/E prime ratio is >15, consistent with elevated filling pressures. Evidence suggests grade III (severe) diastolic dysfunction. Wall Motion Rest Echo Findings The inferolateral wall and basal inferior segment are akinetic. Right Ventricle Mildly increased right ventricular cavity size. There is mildly decreased right ventricular systolic function. Atria The left atrium is severely dilated. The right atrium is normal in size. Aortic Valve There is a normal trileaflet aortic valve. There is no aortic valve stenosis. There is trace (trivial) aortic valve regurgitation. Mitral Valve The mitral valve appears normal. There is mild mitral valve regurgitation. There is no mitral valve stenosis. Pulmonic Valve There is mild pulmonic valve regurgitation. Tricuspid Valve Normal tricuspid valve structure. There is mild tricuspid valve regurgitation. Mild pulmonary hypertension is present. Great Vessels The asc aorta is normal in size. Venous The inferior vena cava is normal in size and collapses greater than 50% with inspiration. Pericardium/Pleural There is no evidence of pericardial effusion. Prior Study Comparison Changes noted compared to prior study dated: 07/04/2021. Recommendations, Care & Conclusions No obvious valvular pathology seen on this study. Measurements 2D Linear Measurements IVSd: 2.07 0.6-0.9/0.6-1.0 cm LVIDd: 3.70 3.9-5.3/4.2-5.9 cm LVIDd Index: 1.83 2.4-3.2/2.2-3.1 cm/m2 LVIDs: 3.42 2.0-3.6 cm LVPWd: 1.59 0.7-1.1 cm Ao Root: 4.60 2.1-3.5 cm LA Diam: 4.80 2.7-3.8/3.0-4.0 cm LAIDs Index: 2.38 1.5-2.3 cm/m2 LV Mass: 361.96 67-162/88-224 g LV Mass Index: 179.19 43-95/49-115 g/m2 LVOT Diam: 2.30 3.0+(-)1.3 cm 2D Systolic Function EF 4C: 38.90 >55% EF 2C: 37.60 >55% EF BiP: 37.80 >55% Mitral Valve MV Pk E: 1.52 MV PK A: 0.43 MV Decel Time: 125.00 E/A: 3.60 E'Lateral: 8.84 E'Medial: 5.68 E/E' Med: 26.80 E/E' Lat: 17.20 PHT: 37.00 MVA PHT: 5.95 Decel [place]: 12.07 Aortic Valve AoV Pk [place]es: 1.22 AoV Mn [place]es: 0.83 AoV VTI: 0.22 AoV Pk Grad: 6.00 Aov Mn Grad: 3.00 KRUPA Cont.VTI: 3.55 LVOT LVOT Pk [place]: 1.14 LVOT Mn [place]: 0.65 LVOT VTI: 0.18 LVOT Pk Grad: 5.00 LVOT Mn Grad: 2.00 LVOT Diam: 2.30 LVOT Area: 4.15 Diastolic Function MV Pk E: 1.52 MV Pk A: 0.43 E/A: 3.60 E'Medial: 5.68 E/E' Med: 26.80 E' Laterial: 8.84 E/E' Lat: 17.20 Right Ventricle TAPSE (mm): 16.50 TVS' [place]: 8.76 Tricuspid Valve TR Pk [place]: 2.86 TR Pk Grad: 33.00 RA Press: 3.00 RVSP: 36.00 Great Vessels Aorta Ao Root-2D: 4.60 2.0-3.7 cm Sinus of Valsalva: 4.60 2.0-3.5 cm Ao Asc: 3.70 2.1-3.4 cm Pulmonary Valve PV Pk [place]: 0.95 Peak PV Grad: 4.00 Updated in Other Vendor System with Status of Final Lino Dougherty MD electronically signed on 10/03/2022 2:12:46 PM with status of Final
[2022-10-01 09:16] LABS: Estimated Average Glucose 160 mg/dL; Hemoglobin A1c % 7.2 %
[2022-10-01 09:19] LABS: Hematocrit 32.1 % (42.0-52.0); Hemoglobin 10.1 g/dl (14.0-18.0); Mean Corpuscular HGB Conc 31.5 g/dl (31.0-36.0); Mean Corpuscular Hemoglobin 27.2 pg (27.0-33.0); Mean Corpuscular Volume 86.5 fL (80.0-98.0); Mean Platelet Volume 9.5 fL (9.4-12.4); Platelet Count 381 X10*3/uL (160-400); Red Blood Count 3.71 X10*6/uL (4.60-5.80); White Blood Count 9.4 X10*3/uL (4.8-10.8)
[2022-10-01 09:28] LABS: B Type Natriuretic Peptide 933 pg/mL (<100)
[2022-10-01 09:40] LABS: Alanine Aminotransferase 10 U/L (0-40); Albumin Level 3.5 g/dL (3.5-5.0); Alkaline Phosphatase 78 U/L (39-117); Anion Gap 10 (12-20); Aspartate Amino Transferase 11 U/L (5-37); Bilirubin Total 0.5 mg/dL (0.0-1.0); Blood Urea Nitrogen 27 mg/dL (9-16); Calcium 9.5 mg/dL (8.4-10.2); Carbon Dioxide 27 mmol/L (22-29); Chloride 107 mmol/L (96-108); Cholesterol 166 mg/dL; Estimated Glomerular Filt Rate > 60; Glucose Fasting 165 mg/dL (60-99); HDL Cholesterol 50 mg/dL; Iron 77 mcg/dL (45-160); LDL Cholesterol Calculated 97 mg/dl; Percent Iron Saturation 23 % (15-50); Potassium 4.3 mmol/L (3.3-5.1); Sodium 140 mmol/L (135-145); Total Iron Binding Capacity 336 mcg/dL (228-428); Total Protein 6.6 g/dL (6.5-8.0); Triglycerides 95 mg/dL; Unsaturated Iron Binding 259 ug/dL
[2022-10-01 10:04] LABS: Folate 8.1 ng/mL (> or = 4.0); Vitamin B12 338 pg/mL (200-900)
== END ==
LOC: HO.CARD 08:27
PROVIDERS: PCP Physician Assistant; Visit Provider Nurse Practitioner Family
DX: R06.02 Shortness of breath (principal); J90 Pleural effusion, not elsewhere classified; E11.52 Type 2 diabetes mellitus with diabetic peripheral angiopathy with gangrene; D50.9 Iron deficiency anemia, unspecified; Z79.4 Long term (current) use of insulin
CPT/HCPCS: 36415; 80053; 80061; 82607; 82746; 83036; 83540; 83880; 84443; 85027; 93306

== ENCOUNTER → 2022-10-14 08:34 | Outpatient (BNVA) | payer OTHER, SELFPAY | PROVIDERS: PCP Physician Assistant; Visit Provider Physician Assistant | DX: Z12.11 Encounter for screening for malignant neoplasm of colon (principal); E61.1 Iron deficiency | CPT/HCPCS: 99212 ==

== ENCOUNTER → 2022-10-22 10:43 | Outpatient (BNVA) | payer OTHER, SELFPAY | PROVIDERS: PCP Physician Assistant; Visit Provider Internal Medicine | DX: I42.9 Cardiomyopathy, unspecified (principal); I25.10 Atherosclerotic heart disease of native coronary artery without angina pectoris | CPT/HCPCS: 99202 ==

== ENCOUNTER 2022-10-27 08:26 | Outpatient (REF) | payer OTHER, SELFPAY ==
--- NOTE | ~2022-10-27 | US_ITS ---
EXAMINATION: US ABDOMEN LIMITED CLINICAL INFORMATION: Anemia, unspecified. COMPARISON: CT abdomen and pelvis without contrast 08/30/2021. TECHNIQUE: Real-time imaging of the right upper quadrant abdominal viscera. FINDINGS: PANCREAS: The pancreas appears unremarkable, without masses or ductal dilatation, with the exception of the tail which is obscured by bowel gas. LIVER: The liver is normal in size. The liver contour is normal. Parenchymal echogenicity is normal. No focal hepatic lesion. There is no intrahepatic biliary duct dilatation seen. GALLBLADDER: The gallbladder is physiologically distended without evidence of stones, sludge, polyps, wall thickening or pericholecystic fluid. COMMON BILE DUCT: Normal in caliber measuring 0.4 cm in diameter. RIGHT KIDNEY: No hydronephrosis. No renal calculi or focal parenchymal lesions. The kidney measures 12.3 cm in maximum dimension. FREE FLUID: None. US/US abdomen limited IMPRESSION: No abnormality detected.
== END 2022-10-27 08:27 | disposition home or self-care (01) ==
LOC: HO.US 08:26
PROVIDERS: PCP Physician Assistant; Visit Provider Nurse Practitioner
DX: D64.9 Anemia, unspecified (principal)
CPT/HCPCS: 76705

== ENCOUNTER → 2022-10-29 08:25 | Outpatient (BNVA) | payer OTHER, SELFPAY | PROVIDERS: PCP Physician Assistant; Visit Provider Internal Medicine Endocrinology, Diabetes & Metabolism | DX: E11.52 Type 2 diabetes mellitus with diabetic peripheral angiopathy with gangrene (principal); Z79.4 Long term (current) use of insulin | CPT/HCPCS: 82947; 99212 ==

== ENCOUNTER → 2022-10-30 08:24 | Outpatient (REF) | payer OTHER, SELFPAY ==
--- NOTE | ~2022-10-30 | NM_ITS ---
Myocardial perfusion study Indication: Atherosclerotic heart disease to evaluate for myocardial ischemia Technique: The patient was brought in for a Lexiscan perfusion study on 10/30/2022. Patient performed low-level exercise and was injected 0.4 mg of Lexiscan intravenously. Within a minute of injection, 30 mCi of sestamibi was given intravenously. Images were obtained using the SPECT gamma camera interlaced with the gating device. Images were obtained in supine position. Resting perfusion study was performed on 10/31/2022. Patient was administered 30 mCi of sestamibi intravenously at rest. Images were then obtained in supine position. Images obtained with and without CT attenuation. Total DLP 125 mGy-cm. Images were processed with the software and compared side to side in short axis, horizontal long axis and vertical long axis views. Findings: The stress perfusion study showed non attenuated images show moderately reduced uptake in the inferolateral and mildly reduced uptake in the apical and midportion of the lateral as well as moderately reduced uptake in the basal lateral wall of the LV myocardium. Is also mildly reduced uptake in the basal and mid anterior wall as well as moderately reduced uptake in the basal inferior and mildly reduced uptake in the mid inferior wall of the LV myocardium. Attenuation corrected images show for correction uptake segments but shows moderately reduced uptake in the basal lateral and inferolateral wall of the LV myocardium.. The gated study shows reduced LV systolic function with calculated LVEF of 34%. LV cavity is mildly to moderately size. The gated study shows reduced wall thickening and contraction of basal and mid inferior as well as the basal lateral wall of the LV myocardium. Segments. Resting study shows non attenuated images show uptake in the basal and mid lateral of LV myocardium as well as inferolateral wall of the myocardium with basal and mid inferior wall of the LV myocardium as well as the basal and mid anterior wall of the LV myocardium.. Gating at rest reveals basal inferior and basal wall motion abnormality with ejection fraction at 42%. The findings are consistent with shows multiple territory ischemia. NM/NM cardiolite stress test Impression: 1. Myocardial perfusion imaging study shows multiple territory ischemia including lateral, inferolateral and anterior wall 2. Gated LVEF is 34% with stress and 42% with rest 3. Transient ischemic dilatation present EKG is nondiagnostic for ischemia
--- NOTE | 2022-10-30 09:57 | CA_ITS ---
Acquisition Time: 2022-10-30 08:44:46 Total Exercise Time: 00:02:00 Test Indications: ABN ECHO Medications: SEE CHART Protocol: LEXISCAN Max HR: 106 BPM 61% of Pred: 171 BPM Max BP: 142/090 mmHG Max Work Load: 1.0 METS Pharmacological stress test with Lexiscan injection, while sitting and kicking his legs, without anginal symptoms, without arrythmia, with normotensive response to injection, with nondiagnostic EKG for ischemia. Nuclear images pending. Test reviewed with Dr Pichardo. Referred By: Lino Dougherty Overread By: HUMBERTO GUERRERO
== END ==
LOC: HO.CARD 08:24
PROVIDERS: Visit Provider Internal Medicine
DX: I25.10 Atherosclerotic heart disease of native coronary artery without angina pectoris (principal)
CPT/HCPCS: 78452; 93017; A9500; J0280; J2785

== ENCOUNTER → 2022-11-04 09:39 | Outpatient (BNVA) | payer OTHER, SELFPAY | PROVIDERS: PCP Physician Assistant; Visit Provider Nurse Practitioner | DX: K21.00 Gastro-esophageal reflux disease with esophagitis, without bleeding (principal); D64.9 Anemia, unspecified; R11.2 Nausea with vomiting, unspecified; R14.0 Abdominal distension (gaseous); E11.65 Type 2 diabetes mellitus with hyperglycemia; E11.69 Type 2 diabetes mellitus with other specified complication; E11.621 Type 2 diabetes mellitus with foot ulcer; M86.672 Other chronic osteomyelitis, left ankle and foot; L97.529 Non-pressure chronic ulcer of other part of left foot with unspecified severity; L03.116 Cellulitis of left lower limb; I25.10 Atherosclerotic heart disease of native coronary artery without angina pectoris; I11.0 Hypertensive heart disease with heart failure; I50.1 Left ventricular failure, unspecified; I42.9 Cardiomyopathy, unspecified; Z79.01 Long term (current) use of anticoagulants | CPT/HCPCS: 99212 ==

== ENCOUNTER 2022-11-12 08:39 | Outpatient (REF) | payer OTHER, SELFPAY | END 2022-11-12 08:40 | disposition home or self-care (01) | LOC: HO.MDS 08:39 | PROVIDERS: Visit Provider Internal Medicine Medical Oncology | DX: D50.9 Iron deficiency anemia, unspecified (principal) | CPT/HCPCS: 96365; J1756 ==

== ENCOUNTER 2022-11-20 08:45 | Outpatient (REF) | payer OTHER, SELFPAY | END 2022-11-20 08:46 | disposition home or self-care (01) | LOC: HO.MDS 08:45 | PROVIDERS: Visit Provider Internal Medicine Medical Oncology | DX: D50.9 Iron deficiency anemia, unspecified (principal) | CPT/HCPCS: 96365; J1756 ==

== ENCOUNTER 2022-11-28 13:42 | Inpatient (IN) | payer OTHER, SELFPAY ==
--- NOTE | ~2022-11-28 | US_ITS ---
EXAMINATION: COLOR-FLOW DUPLEX IMAGING OF THE BILATERAL LOWER EXTREMITY ARTERIAL SYSTEM VELOCITY MEASUREMENTS THROUGHOUT THE bilateral [place] ARTERIAL SYSTEMS CLINICAL INFORMATION: The patient is a 51 year-old man who presents with a nonhealing ulcer. RIGHT FEMORAL RUNOFF VELOCITIES: The right common femoral artery peak systolic velocity is 100 cm/s. The waveform is triphasic. The right profunda femoral artery peak systolic velocity is 100 cm/s. The waveform is biphasic. The right proximal superficial femoral artery peak systolic velocity is 117 cm/s. The waveform is triphasic. The right mid superficial femoral artery is poorly visualized due to an endovascular stent. The right distal superficial femoral artery is poorly visualized due to an endovascular stent. The right popliteal artery peak systolic velocity is 102 cm/s. The waveform is triphasic. The right posterior tibial artery peak systolic velocity is 139 cm/s. The waveform is triphasic. LEFT FEMORAL RUNOFF VELOCITIES: The left common femoral artery peak systolic velocity is 170 cm/s. The waveform is triphasic. The left profunda femoral artery peak systolic velocity is 97 cm/s. The waveform is monophasic. The left proximal superficial femoral artery peak systolic velocity is 154 cm/s. The waveform is biphasic. The left mid superficial femoral artery is poorly visualized due to an endovascular stent. The left distal superficial femoral artery is poorly visualized due to an endovascular stent. The left popliteal artery peak systolic velocity is 119 cm/s. The waveform is triphasic. The left posterior tibial artery peak systolic velocity is 174 cm/s. The waveform is biphasic. OTHER: There are nonspecific shotty bilateral inguinal lymph nodes, which should be managed on a clinical basis. US/US arterial duplex LE BI IMPRESSION: No hemodynamically significant bilateral lower extremity arterial inflow or outflow disease is seen. Evaluation of the bilateral mid and distal superficial femoral artery segments is limited due to endovascular stents. EXAMINATION: NONINVASIVE ANKLE BRACHIAL INDICES OF BOTH LOWER EXTREMITIES CLINICAL INFORMATION: . COMPARISON: None. TECHNIQUE: Ankle-brachial indices were calculated bilaterally and PVR tracings were performed at the level of the ankles. This study was performed at rest only. FINDINGS: a) AT REST: 1. The ankle-brachial indices are: Right 1.04 and left 1.09. >0.97-1.25 = normal - no significant arterial disease. 0.75-0.96 = mild peripheral arterial disease. 0.5-0.74 = moderate peripheral arterial disease. <0.50 = severe peripheral arterial disease. 2. PVR waveforms at ankle: Bilaterally normal. IMPRESSION: Bilateral ankle-brachial indices are within normal limits.
--- NOTE | ~2022-11-28 | IR_ITS ---
PROCEDURE: IR INSERTION OF PICC CLINICAL INFORMATION: Osteomyelitis for long-term antibiotics. COMPARISON: None TECHNIQUE: Following explaining ultrasound fluoroscopy-guided PICC line placement procedure, benefits and risk, a written consent was obtained. Patient was placed supine and preliminary ultrasound imaging was performed through the left arm. An optimal site was selected along the left arm above the elbow. The area was marked, cleaned and draped in usual sterile manner. Tourniquet was applied above the upper arm. 1% lidocaine was infiltrated at the marked site. Under sterile ultrasound guidance, a single long needle was advanced and left brachial vein was punctured. After observing venous return a thin guidewire was advanced and placed in SVC under fluoroscopy. The needle was withdrawn and a small skin incision performed in the insertion site. A 5 [place] dilator sheath was advanced over the wire. Precut dual lumen PICC catheter was then advanced over the guidewire and through the peel-away sheath after removing the dilator. The catheter was placed under fluoroscopy at the brachiocephalic venous junction. The guidewire and the peel-away sheath were removed. A single image was obtained for documentation. Both ports of the catheter were flushed with saline. Elements of maximal sterile barrier technique followed including use of cap, mask, sterile gown, sterile gloves, a sterile full body drape and hand hygiene. Also followed skin preparation with 2% chlorhexidine for cutaneous antisepsis, and sterile ultrasound preparation with sterile gel and probe cover when applicable. Patient tolerated procedure extremely well. FINDINGS: There are widely patent paired brachial veins. 38 cm long dual lumen 5 [place] PICC catheter was placed with its tip at the brachiocephalic venous junction. The catheter is ready for use. IR/IR cvc insert peripheral IMPRESSION: Successful ultrasound and fluoroscopy-guided placement of 5 [place] 38 cm long PICC catheter with its tip at the brachiocephalic venous junction. Fluoroscopy time: 0.7 minutes. Dose area product: 204 cGy cm 2.
--- NOTE | ~2022-11-28 | XR_ITS ---
EXAMINATION: XR FOOT, LEFT CLINICAL INFORMATION: Wound . Digit amputation. COMPARISON: 09/09/2021 TECHNIQUE: AP, lateral, and oblique views of the left foot. FINDINGS: Status post transmetatarsal amputation. Soft tissue swelling and gas along the stump. There is irregularity of the first metatarsal amputated site. This could be an erosion. No fractures. Small plantar heel spur. Scattered vascular calcification. XR/XR foot LT min 3V IMPRESSION: Status post transmetatarsal amputation with soft tissue swelling and gas along the stump. Irregularity at the first metatarsal amputated site which could be an erosion. Osteomyelitis is possible. MRI could be performed to further evaluate.
--- NOTE | ~2022-11-28 | US_ITS ---
EXAMINATION: COLOR-FLOW DUPLEX IMAGING OF THE BILATERAL LOWER EXTREMITY ARTERIAL SYSTEM VELOCITY MEASUREMENTS THROUGHOUT THE bilateral [place] ARTERIAL SYSTEMS CLINICAL INFORMATION: The patient is a 51 year-old man who presents with a nonhealing ulcer. RIGHT FEMORAL RUNOFF VELOCITIES: The right common femoral artery peak systolic velocity is 100 cm/s. The waveform is triphasic. The right profunda femoral artery peak systolic velocity is 100 cm/s. The waveform is biphasic. The right proximal superficial femoral artery peak systolic velocity is 117 cm/s. The waveform is triphasic. The right mid superficial femoral artery is poorly visualized due to an endovascular stent. The right distal superficial femoral artery is poorly visualized due to an endovascular stent. The right popliteal artery peak systolic velocity is 102 cm/s. The waveform is triphasic. The right posterior tibial artery peak systolic velocity is 139 cm/s. The waveform is triphasic. LEFT FEMORAL RUNOFF VELOCITIES: The left common femoral artery peak systolic velocity is 170 cm/s. The waveform is triphasic. The left profunda femoral artery peak systolic velocity is 97 cm/s. The waveform is monophasic. The left proximal superficial femoral artery peak systolic velocity is 154 cm/s. The waveform is biphasic. The left mid superficial femoral artery is poorly visualized due to an endovascular stent. The left distal superficial femoral artery is poorly visualized due to an endovascular stent. The left popliteal artery peak systolic velocity is 119 cm/s. The waveform is triphasic. The left posterior tibial artery peak systolic velocity is 174 cm/s. The waveform is biphasic. OTHER: There are nonspecific shotty bilateral inguinal lymph nodes, which should be managed on a clinical basis. US/US MOISE complete IMPRESSION: No hemodynamically significant bilateral lower extremity arterial inflow or outflow disease is seen. Evaluation of the bilateral mid and distal superficial femoral artery segments is limited due to endovascular stents. EXAMINATION: NONINVASIVE ANKLE BRACHIAL INDICES OF BOTH LOWER EXTREMITIES CLINICAL INFORMATION: . COMPARISON: None. TECHNIQUE: Ankle-brachial indices were calculated bilaterally and PVR tracings were performed at the level of the ankles. This study was performed at rest only. FINDINGS: a) AT REST: 1. The ankle-brachial indices are: Right 1.04 and left 1.09. >0.97-1.25 = normal - no significant arterial disease. 0.75-0.96 = mild peripheral arterial disease. 0.5-0.74 = moderate peripheral arterial disease. <0.50 = severe peripheral arterial disease. 2. PVR waveforms at ankle: Bilaterally normal. IMPRESSION: Bilateral ankle-brachial indices are within normal limits.
[2022-11-28 13:54] VITALS: BP 174/98; PULSE 101; RESP 18; TEMP 36.8; O2SAT 99; BMI 29.0
--- NOTE | 2022-11-28 13:54 | ED.SKABFB ---
HPI - Skin/Abscess/Foreign Bdy General Chief complaint: Wound/Laceration <Kacey Anglin CNP - Last Filed: 11/28/22 14:00> Stated complaint: Cyst L foot <Kacey Anglin CNP - Last Filed: 11/28/22 14:00> Time Seen by Provider: 11/28/22 22:13 <Kacey Anglin CNP - Last Filed: 11/28/22 14:00> Source: patient <Natalie Oviedo NP - Last Filed: 11/29/22 01:19> Mode of arrival: ambulatory <Natalie Oviedo NP - Last Filed: 11/29/22 01:19> Limitations: no limitations <Natalie Oviedo NP - Last Filed: 11/29/22 01:19> History of Present Illness HPI narrative: 51-year-old male presents for evaluation for worsening wound to his left foot. He has a history of amputation, noted that he is having blood on his sock, and experiencing nausea and vomiting. <Natalie Oviedo NP - Last Filed: 11/29/22 01:19> MD complaint: other (Wound left foot) <Natalie Oviedo NP - Last Filed: 11/29/22 01:19> Onset (ago): week(s) <Natalie Oviedo NP - Last Filed: 11/29/22 01:19> Tetanus up to date: yes <Natalie Oviedo NP - Last Filed: 11/29/22 01:19> Location: L foot <Natalie Oviedo NP - Last Filed: 11/29/22 01:19> Severity: severe <Natalie Oviedo NP - Last Filed: 11/29/22 01:19> Severity scale (1-10): 9 <Natalie Oviedo NP - Last Filed: 11/29/22 01:19> Quality: aching <Natalie Oviedo NP - Last Filed: 11/29/22 01:19> Pain Consistency: constant <Ntaalie Oviedo NP - Last Filed: 11/29/22 01:19> Relieving factors: none <Natalie Oviedo NP - Last Filed: 11/29/22 01:19> Exacerbating factors: palpation, movement and other (Ambulation) <Natalie Oviedo NP - Last Filed: 11/29/22 01:19> Associated symptoms: chills, nausea and vomiting <Natalie Oviedo NP - Last Filed: 11/29/22 01:19> Related Data Home medications: Home Medications Medication Instructions Recorded Confirmed blood sugar diagnostic #10 ea 11/20/20 10/29/22 pen needle, diabetic 32 gauge x #50 ea 11/20/20 10/29/22 insulin glargine 100 unit/mL (3 30 unit subcut DAILY 09/18/22 10/29/22 mL) subcutaneous pen (Basaglar KwikPen U-100 Insulin) ferrous sulfate 325 mg (65 mg 1 tab PO BID 09/30/22 10/29/22 iron) tablet alcohol swabs (Alcohol Prep Pads) pad topical TID 10/14/22 10/29/22 docusate sodium 100 mg capsule 100 mg PO DAILY 10/14/22 10/29/22 pen needle, diabetic 32 gauge x 10/29/22 10/29/22 (BD Ultra-Fine Karen Pen Needle) Previous Rx's Medication Instructions Recorded adhesive tape 2 X 72 #12 ea 04/04/22 blood sugar diagnostic (Contour #100 ea 06/10/22 Test Strips) blood-glucose meter (Contour Meter) #1 ea 06/10/22 insulin lispro 100 unit/mL 4 unit (0.04 mL) subcut TID 30 06/19/22 subcutaneous pen (Admelog SoloSt days #15 mL U-100 Insulin lispro) apixaban 5 mg tablet (Eliquis) 5 mg PO BID 30 days #60 tabs 06/28/22 atorvastatin 40 mg tablet 40 mg PO DAILY #90 tabs 06/28/22 flash glucose scanning reader #1 ea 06/28/22 (FreeStyle Jayla 2 [place]) omeprazole 40 mg capsule,delayed 40 mg PO DAILY 90 days #90 caps 09/16/22 release blood pressure monitor (Blood #1 ea 09/18/22 Pressure Kit) losartan 25 mg tablet 25 mg PO DAILY #30 tabs 09/18/22 metformin 1,000 mg tablet 1,000 mg PO BID #60 tabs 09/29/22 dulaglutide 1.5 mg/0.5 mL 1.5 mg (0.5 mL) subcut QWEEK #2 mL 10/29/22 subcutaneous pen injector (Trulicity) flash glucose sensor (FreeStyle #1 ea 10/31/22 Jayla 2 Sensor kit) peg 3350-electrolytes 236 240 ml PO Q10M 1 day #4,000 mL 11/04/22 gram-22.74 gram-6.74 gram-5.86 gram solution (Golytely) <Kacey Anglin CNP - Last Filed: 11/28/22 14:00> Allergies/Adverse reactions: Allergies Allergy/AdvReac Type Severity Reaction Status Date / Time No Known Allergies Allergy Verified 11/04/22 10:05 <Kacey Anglin CNP - Last Filed: 11/28/22 14:00> Review of Systems Review of Systems: Constitutional: No Fever, positive Chills Cardiovascular: No Chest Pain, No SOB Respiratory: No Cough, No Dyspnea Gastrointestinal: Positive Nausea, positive Vomiting, No Diarrhea, No abdominal Pain Genitourinary: No Dysuria, No Hematuria Musculoskeletal: positive left foot pain, No Myalgias, No Joint Swelling Skin: Positive open weeping wounds to the left foot, No Skin lacerations, No rash Neuro: No Weakness, No Numbness, No Paresthesias, No Dizziness, No Headache <Natalie Oviedo NP - Last Filed: 11/29/22 01:19> Yes all other systems are reviewed and are negative <Natalie Oviedo NP - Last Filed: 11/29/22 01:19> [facility] Past Medical History Attestation statement: The following information was validated with the patient. <Natalie Oviedo NP - Last Filed: 11/29/22 01:19> Source: old records reviewed <Natalie Oviedo NP - Last Filed: 11/29/22 01:19> Medical History: Medical History Anemia Anemia Anemia of chronic disease Bacteremia Diabetes Diabetic foot ulcer Diabetic foot ulcer DMII (diabetes mellitus, type 2) Gangrene of toe of left foot GERD (gastroesophageal reflux disease) History of angiography Left ventricular ejection fraction of 40-49% Open wound Orthostatic hypotension PAD (peripheral artery disease) Peripheral vascular disease PICC (peripherally inserted central catheter) in place SOB (shortness of breath) on exertion <Kacey Anglin CNP - Last Filed: 11/28/22 14:00> Surgical History: Surgical History Amputated toe of right foot (11/05/20) History of transmetatarsal amputation of left foot <Kacey Anglin CNP - Last Filed: 11/28/22 14:00> Family History Family History: Family History Other Diabetes No family history of cancer <Kacey Anglin CNP - Last Filed: 11/28/22 14:00> Social History Social History: Social History Household Members: Spouse and Children Housing: Apartment Are you a primary health care sanitary technician to a significant other at home: No Do you presently have visiting nurse or other home services: No Alcohol intake: current Alcohol intake frequency: a few times a week Alcohol type: hard liquor Patient Tobacco Use Status: Current someday Tobacco user Tobacco use type: Cigarette Cigarette Packs Per Day: 0.5 Years Smoked: 15 Smoked in Last 30 Days: Yes e-Cigarette/Vaping Use: Never Used Second Hand Smoke Exposure: No Use of substances other than those prescribed or required for medical reasons: No Advance Directives: No Advance Directives Information Provided: No service: No Current occupational status: unemployed Cognitive needs: No Hearing needs: No Vision needs: No <Kacey Anglin CNP - Last Filed: 11/28/22 14:00> Physical Exam Vital Signs: Vital Signs: Last Vital Signs Temp 97.8 F 11/29/22 00:48 Pulse 83 11/29/22 00:48 Resp 14 11/29/22 00:48 BP 145/81 H 11/29/22 00:48 Pulse Ox 97 11/29/22 00:48 O2 Del Method 11/29/22 00:48 BMI result Body Mass Index 29.0 <Kacey Anglin CNP - Last Filed: 11/28/22 14:00> Vital Signs: Last Vital Signs Temp 97.8 F 11/29/22 00:48 Pulse 83 11/29/22 00:48 Resp 14 11/29/22 00:48 BP 145/81 H 11/29/22 00:48 Pulse Ox 97 11/29/22 00:48 O2 Del Method 11/29/22 00:48 BMI result Body Mass Index 29.0 <Natalie Oviedo NP - Last Filed: 11/29/22 01:19> Appearance: Alert. Oriented X3. Moderate distress. Eyes: Pupils equal, round and reactive to light. ENT: Pharynx normal. Neck: Normal inspection. Neck supple. CVS: Normal heart rate and rhythm. Pulses normal. Respiratory: No respiratory distress. Breath sounds normal. Abdomen: Soft and nontender. Skin: Open weeping wound to left foot, all toes amputated. Extremities: No lower extremity edema. Neuro: No motor deficit. No sensory deficit. Cranial nerves 2-12 intact. <Natalie Oviedo NP - Last Filed: 11/29/22 01:19> Course Course Course Narrative: This is an RME: Additional HPI, ROS, PE not included below will be deferred to primary provider. Patient is a 51 year old male who presents to the ED for evaluation of a wound to the left foot. Reports a history of amputation June 2022 of the 5 digits. States that he woke this morning and noticed his sock to be bloody, felt the skin lifting at the amputations sign, so he presented to the emergency room. Denies any injury to the foot. Denies fevers or chills. He does report that he has vomited 6 times today, denies abdominal pain, constipation, diarrhea PE: tissue to medial amputation site appears macerated, drainage from site yellow/ bloody. clean dry dressing applied Plan: labs, viral testing, XR imaging L foot <Kacey Anglin CNP - Last Filed: 11/28/22 14:00> This is an RME: Additional HPI, ROS, PE not included below will be deferred to primary provider. Patient is a 51 year old male who presents to the ED for evaluation of a wound to the left foot. Reports a history of amputation June 2022 of the 5 digits. States that he woke this morning and noticed his sock to be bloody, felt the skin lifting at the amputations sign, so he presented to the emergency room. Denies any injury to the foot. Denies fevers or chills. He does report that he has vomited 6 times today, denies abdominal pain, constipation, diarrhea PE: tissue to medial amputation site appears macerated, drainage from site yellow/ bloody. clean dry dressing applied Plan: labs, viral testing, XR imaging L foot 51-year-old male with past medical history gangrene with osteomyelitis amputations to the left toes, insulin-dependent diabetes, peripheral artery disease, hyperlipidemia, hypertension, GERD presents for worsening infection to his left foot. Has large open blister that has been weeping, and patient also reports nausea, vomiting, and chills. Patient's labs and x-rays were completed while he was in the emergency department waiting room. 22:19 x-rays indicate osteo. We will order vancomycin and ceftriaxone. Patient will be admitted. Patient is not septic. Discussion with hospitalist. <Natalie Oviedo NP - Last Filed: 11/29/22 01:19> Consultations Consultation #1: Justin <Natalie Oviedo NP - Last Filed: 11/29/22 01:19> Medications Administered Generic Name Dose Route Start Last Admin Trade Name Freq PRN Reason Stop Dose Admin Enoxaparin Sodium 80 mg 11/28/22 23:00 11/28/22 23:16 Enoxaparin Sodium 80 Mg/0.8 Ml Syringe 1 mg/kg (80 mg) 80 mg SUBCUT Administration Q12H CIAT Sodium Chloride 3 ml 11/29/22 00:00 11/29/22 00:01 0.9 % Sodium Chloride Flush 3 Ml Syringe IVFLUSH Not Given QSHIFT CAIT Discontinued Medications Generic Name Dose Route Start Last Admin Trade Name Freq PRN Reason Stop Dose Admin Vancomycin HCl 2,000 mg in 520 mls @ 260 mls/hr 11/28/22 22:19 11/28/22 23:16 Vancomycin/Ns IV 11/29/22 00:18 260 mls/hr ONCE ONE Administration Sodium Chloride 1,000 mls @ 999 mls/hr 11/28/22 22:30 11/28/22 23:16 Ns IVCONT 11/28/22 23:30 999 mls/hr .Q1H1M CAIT Administration <Kacey Anglin CNP - Last Filed: 11/28/22 14:00> Medications Administered Generic Name Dose Route Start Last Admin Trade Name Freq PRN Reason Stop Dose Admin Enoxaparin Sodium 80 mg 11/28/22 23:00 11/28/22 23:16 Enoxaparin Sodium 80 Mg/0.8 Ml Syringe 1 mg/kg (80 mg) 80 mg SUBCUT Administration Q12H CAIT Sodium Chloride 3 ml 11/29/22 00:00 11/29/22 00:01 0.9 % Sodium Chloride Flush 3 Ml Syringe IVFLUSH Not Given QSHIFT CAIT Discontinued Medications Generic Name Dose Route Start Last Admin Trade Name Freq PRN Reason Stop Dose Admin Vancomycin HCl 2,000 mg in 520 mls @ 260 mls/hr 11/28/22 22:19 11/28/22 23:16 Vancomycin/Ns IV 11/29/22 00:18 260 mls/hr ONCE ONE Administration Sodium Chloride 1,000 mls @ 999 mls/hr 11/28/22 22:30 11/28/22 23:16 Ns IVCONT 11/28/22 23:30 999 mls/hr .Q1H1M CAIT Administration <Natalie Oviedo NP - Last Filed: 11/29/22 01:19> Medical Decision Making Differential Diagnosis Differential Diagnoses: The differential diagnosis associated with the presentation includes <Natalie Oviedo NP - Last Filed: 11/29/22 01:19> Osteo, sepsis <Natalie Oviedo NP - Last Filed: 11/29/22 01:19> Admission/Observation Consideration of admission/observation: Escalation of care including admission/observation considered <Natalie Oviedo NP - Last Filed: 11/29/22 01:19> Patient will require admission <Natalie Oviedo NP - Last Filed: 11/29/22 01:19> Consult Healthcare Provider Management of the patient was discussed with: Hospitalist <Natalie Oviedo NP - Last Filed: 11/29/22 01:19> Lab Data MDM Lab Attestation statement: I reviewed the patient's lab results. <Natalie Oviedo NP - Last Filed: 11/29/22 01:19> Result Diagrams: 11/28/22 14:56 11/28/22 14:56 <Kacey Anglin, PURCHASING OFFICER - Last Filed: 11/28/22 14:00> Labs: Lab Results 11/28/22 11/28/22 11/28/22 Range/Units 14:56 14:56 14:56 WBC 10.4 (4.8-10.8) X10*3/uL RBC 3.74 L (4.60-5.80) X10*6/uL Hgb 10.5 L (14.0-18.0) g/dl Hct 32.0 L (42.0-52.0) % MCV 85.6 (80.0-98.0) fL MCH 28.1 (27.0-33.0) pg MCHC 32.8 (31.0-36.0) g/dl RDW 15.2 (11.0-16.0) % Plt Count 367 (160-400) X10*3/uL MPV 9.0 L (9.4-12.4) fL Immature Gran % (Auto) 0.2 (0.0-0.4) % Neut % (Auto) 75.4 H (45-73) % Lymph % (Auto) 13.3 L (20-40) % [place] % (Auto) 10.0 (2-11) % Eos % (Auto) 0.6 (0-4) % Baso % (Auto) 0.5 (0-2) % Lymph # (Auto) 1.4 (1.2-4.9) X10*3/uL [place] # (Auto) 1.0 (0.1-1.2) X10*3/uL Eos # (Auto) 0.1 (0.0-0.4) X10*3/uL Baso # (Auto) 0.1 (0.0-0.2) X10*3/uL Abs Immat Gran (auto) 0.02 (0.00-0.03) X10*3/uL Absolute Neuts (auto) 7.9 (2.0-8.3) x10*3/uL Absolute Nucleated RBC 0.000 (0.0-0.012) X10*3/uL Nucleated RBC % (auto) 0.0 (0.0-0.2) /100WBC ESR 83 H (0-15) MM/HR Sodium 139 (135-145) mmol/L Potassium 4.2 (3.3-5.1) mmol/L Chloride 104 (96-108) mmol/L Carbon Dioxide 23 (22-29) mmol/L Anion Gap 16 (12-20) BUN 27 H (9-16) mg/dL Creatinine 1.48 H (0.5-1.4) mg/dL Estim Creat Clear Calc 60.5 Estimated GFR 51 Random Glucose 133 H (60-115) mg/dL Calcium 9.0 (8.4-10.2) mg/dL Total Bilirubin 0.8 (0.0-1.0) mg/dL AST 25 (5-37) U/L ALT 19 (0-40) U/L Alkaline Phosphatase 106 (39-117) U/L C-Reactive Protein 2.49 H (< or = 0.50) mg/dL Total Protein 7.2 (6.5-8.0) g/dL Albumin 3.9 (3.5-5.0) g/dL Lipase 10 (8-78) U/L Urine Color Urine Appearance Urine pH (5.0-9.0) Ur Specific [place] (1.005-1.025) Urine Protein (Neg-Trace) mg/dL Urine Glucose (UA) (Negative) mg/dL Urine Ketones (Negative) mg/dL Urine Blood (Negative) Urine Nitrite (Negative) Ur Leukocyte Esterase (Negative) Urine RBC (0-2) /HPF Urine WBC (0-5) /HPF Ur Squamous Epith Cells (0-2) /HPF Urine Bacteria (None Seen) Hyaline Casts (0-2) /LPF COVID-19 (DELIA) (Negative) COVID-19 Clin Com Influenza Type A (TALIA) (Negative) Influenza Type B (TALIA) (Negative) Influenza A & B Note 11/28/22 11/28/22 11/28/22 Range/Units 14:56 14:56 21:50 WBC (4.8-10.8) X10*3/uL RBC (4.60-5.80) X10*6/uL Hgb (14.0-18.0) g/dl Hct (42.0-52.0) % MCV (80.0-98.0) fL MCH (27.0-33.0) pg MCHC (31.0-36.0) g/dl RDW (11.0-16.0) % Plt Count (160-400) X10*3/uL MPV (9.4-12.4) fL Immature Gran % (Auto) (0.0-0.4) % Neut % (Auto) (45-73) % Lymph % (Auto) (20-40) % [place] % (Auto) (2-11) % Eos % (Auto) (0-4) % Baso % (Auto) (0-2) % Lymph # (Auto) (1.2-4.9) X10*3/uL [place] # (Auto) (0.1-1.2) X10*3/uL Eos # (Auto) (0.0-0.4) X10*3/uL Baso # (Auto) (0.0-0.2) X10*3/uL Abs Immat Gran (auto) (0.00-0.03) X10*3/uL Absolute Neuts (auto) (2.0-8.3) x10*3/uL Absolute Nucleated RBC (0.0-0.012) X10*3/uL Nucleated RBC % (auto) (0.0-0.2) /100WBC ESR (0-15) MM/HR Sodium (135-145) mmol/L Potassium (3.3-5.1) mmol/L Chloride (96-108) mmol/L Carbon Dioxide (22-29) mmol/L Anion Gap (12-20) BUN (9-16) mg/dL Creatinine (0.5-1.4) mg/dL Estim Creat Clear Calc Estimated GFR Random Glucose (60-115) mg/dL Calcium (8.4-10.2) mg/dL Total Bilirubin (0.0-1.0) mg/dL AST (5-37) U/L ALT (0-40) U/L Alkaline Phosphatase (39-117) U/L C-Reactive Protein (< or = 0.50) mg/dL Total Protein (6.5-8.0) g/dL Albumin (3.5-5.0) g/dL Lipase (8-78) U/L Urine Color Yellow Urine Appearance Clear Urine pH 5.0 (5.0-9.0) Ur Specific [place] 1.020 (1.005-1.025) Urine Protein 300 (3+) H (Neg-Trace) mg/dL Urine Glucose (UA) 100 H (Negative) mg/dL Urine Ketones Trace (Negative) mg/dL Urine Blood Small (1+) H (Negative) Urine Nitrite Negative (Negative) Ur Leukocyte Esterase Trace H (Negative) Urine RBC 3-5 H (0-2) /HPF Urine WBC 6-10 (0-5) /HPF Ur Squamous Epith Cells 0-2 (0-2) /HPF Urine Bacteria 1+ (None Seen) Hyaline Casts 3-5 (0-2) /LPF COVID-19 (DELIA) Negative (Negative) COVID-19 Clin Com See Note Influenza Type A (TALIA) Negative (Negative) Influenza Type B (TALIA) Negative (Negative) Influenza A & B Note See Note <Kacey Anglin, PURCHASING OFFICER - Last Filed: 11/28/22 14:00> Lab Results 11/28/22 11/28/22 11/28/22 Range/Units 14:56 14:56 14:56 WBC 10.4 (4.8-10.8) X10*3/uL RBC 3.74 L (4.60-5.80) X10*6/uL Hgb 10.5 L (14.0-18.0) g/dl Hct 32.0 L (42.0-52.0) % MCV 85.6 (80.0-98.0) fL MCH 28.1 (27.0-33.0) pg MCHC 32.8 (31.0-36.0) g/dl RDW 15.2 (11.0-16.0) % Plt Count 367 (160-400) X10*3/uL MPV 9.0 L (9.4-12.4) fL Immature Gran % (Auto) 0.2 (0.0-0.4) % Neut % (Auto) 75.4 H (45-73) % Lymph % (Auto) 13.3 L (20-40) % [place] % (Auto) 10.0 (2-11) % Eos % (Auto) 0.6 (0-4) % Baso % (Auto) 0.5 (0-2) % Lymph # (Auto) 1.4 (1.2-4.9) X10*3/uL [place] # (Auto) 1.0 (0.1-1.2) X10*3/uL Eos # (Auto) 0.1 (0.0-0.4) X10*3/uL Baso # (Auto) 0.1 (0.0-0.2) X10*3/uL Abs Immat Gran (auto) 0.02 (0.00-0.03) X10*3/uL Absolute Neuts (auto) 7.9 (2.0-8.3) x10*3/uL Absolute Nucleated RBC 0.000 (0.0-0.012) X10*3/uL Nucleated RBC % (auto) 0.0 (0.0-0.2) /100WBC ESR 83 H (0-15) MM/HR Sodium 139 (135-145) mmol/L Potassium 4.2 (3.3-5.1) mmol/L Chloride 104 (96-108) mmol/L Carbon Dioxide 23 (22-29) mmol/L Anion Gap 16 (12-20) BUN 27 H (9-16) mg/dL Creatinine 1.48 H (0.5-1.4) mg/dL Estim Creat Clear Calc 60.5 Estimated GFR 51 Random Glucose 133 H (60-115) mg/dL Calcium 9.0 (8.4-10.2) mg/dL Total Bilirubin 0.8 (0.0-1.0) mg/dL AST 25 (5-37) U/L ALT 19 (0-40) U/L Alkaline Phosphatase 106 (39-117) U/L C-Reactive Protein 2.49 H (< or = 0.50) mg/dL Total Protein 7.2 (6.5-8.0) g/dL Albumin 3.9 (3.5-5.0) g/dL Lipase 10 (8-78) U/L Urine Color Urine Appearance Urine pH (5.0-9.0) Ur Specific [place] (1.005-1.025) Urine Protein (Neg-Trace) mg/dL Urine Glucose (UA) (Negative) mg/dL Urine Ketones (Negative) mg/dL Urine Blood (Negative) Urine Nitrite (Negative) Ur Leukocyte Esterase (Negative) Urine RBC (0-2) /HPF Urine WBC (0-5) /HPF Ur Squamous Epith Cells (0-2) /HPF Urine Bacteria (None Seen) Hyaline Casts (0-2) /LPF COVID-19 (DELIA) (Negative) COVID-19 Clin Com Influenza Type A (TALIA) (Negative) Influenza Type B (TALIA) (Negative) Influenza A & B Note 11/28/22 11/28/22 11/28/22 Range/Units 14:56 14:56 21:50 WBC (4.8-10.8) X10*3/uL RBC (4.60-5.80) X10*6/uL Hgb (14.0-18.0) g/dl Hct (42.0-52.0) % MCV (80.0-98.0) fL MCH (27.0-33.0) pg MCHC (31.0-36.0) g/dl RDW (11.0-16.0) % Plt Count (160-400) X10*3/uL MPV (9.4-12.4) fL Immature Gran % (Auto) (0.0-0.4) % Neut % (Auto) (45-73) % Lymph % (Auto) (20-40) % [place] % (Auto) (2-11) % Eos % (Auto) (0-4) % Baso % (Auto) (0-2) % Lymph # (Auto) (1.2-4.9) X10*3/uL [place] # (Auto) (0.1-1.2) X10*3/uL Eos # (Auto) (0.0-0.4) X10*3/uL Baso # (Auto) (0.0-0.2) X10*3/uL Abs Immat Gran (auto) (0.00-0.03) X10*3/uL Absolute Neuts (auto) (2.0-8.3) x10*3/uL Absolute Nucleated RBC (0.0-0.012) X10*3/uL Nucleated RBC % (auto) (0.0-0.2) /100WBC ESR (0-15) MM/HR Sodium (135-145) mmol/L Potassium (3.3-5.1) mmol/L Chloride (96-108) mmol/L Carbon Dioxide (22-29) mmol/L Anion Gap (12-20) BUN (9-16) mg/dL Creatinine (0.5-1.4) mg/dL Estim Creat Clear Calc Estimated GFR Random Glucose (60-115) mg/dL Calcium (8.4-10.2) mg/dL Total Bilirubin (0.0-1.0) mg/dL AST (5-37) U/L ALT (0-40) U/L Alkaline Phosphatase (39-117) U/L C-Reactive Protein (< or = 0.50) mg/dL Total Protein (6.5-8.0) g/dL Albumin (3.5-5.0) g/dL Lipase (8-78) U/L Urine Color Yellow Urine Appearance Clear Urine pH 5.0 (5.0-9.0) Ur Specific [place] 1.020 (1.005-1.025) Urine Protein 300 (3+) H (Neg-Trace) mg/dL Urine Glucose (UA) 100 H (Negative) mg/dL Urine Ketones Trace (Negative) mg/dL Urine Blood Small (1+) H (Negative) Urine Nitrite Negative (Negative) Ur Leukocyte Esterase Trace H (Negative) Urine RBC 3-5 H (0-2) /HPF Urine WBC 6-10 (0-5) /HPF Ur Squamous Epith Cells 0-2 (0-2) /HPF Urine Bacteria 1+ (None Seen) Hyaline Casts 3-5 (0-2) /LPF COVID-19 (DELIA) Negative (Negative) COVID-19 Clin Com See Note Influenza Type A (TALIA) Negative (Negative) Influenza Type B (TALIA) Negative (Negative) Influenza A & B Note See Note <Natalie Oviedo NP - Last Filed: 11/29/22 01:19> Independent Interpretation I performed an independent interpretation of an: Plain X-Ray <Natalie Oviedo NP - Last Filed: 11/29/22 01:19> Radiology Impression Discussion of test interpretation with radiology: I have reviewed the radiologist's reading. <Natalie Oviedo NP - Last Filed: 11/29/22 01:19> Radiologist Impression: EXAMINATION: XR FOOT, LEFT CLINICAL INFORMATION: Wound . Digit amputation.? COMPARISON: 09/09/2021? TECHNIQUE: AP, lateral, and oblique views of the left foot. FINDINGS: Status post transmetatarsal amputation. Soft tissue swelling and gas along the stump. There is irregularity of the first metatarsal amputated site. This could be an erosion. No fractures. Small plantar heel spur. Scattered vascular calcification.? XR/XR foot LT min 3V IMPRESSION: Status post transmetatarsal amputation with soft tissue swelling and gas along the stump. Irregularity at the first metatarsal amputated site which could be an erosion. Osteomyelitis is possible. MRI could be performed to further evaluate. ? <Natalie Oviedo NP - Last Filed: 11/29/22 01:19> External Record Review External record reviewed: Outpatient record and Prior outpatient labs <Natalie Oviedo NP - Last Filed: 11/29/22 01:19> Prescription Management I considered prescription management with: Pain Medication and Antibiotic <Natalie Oviedo NP - Last Filed: 11/29/22 01:19> Chronic Conditions Patient?s care impacted by: Diabetes, Hypertension and Other (DVT on Eliquis) <Natalie Oviedo NP - Last Filed: 11/29/22 01:19> Social Determinants Patient?s care significantly limited by Social Determinants of Health including: Other Social Determinant of Health <Natalie Oviedo NP - Last Filed: 11/29/22 01:19> Discharge Plan Discharge Clinical Impression: Osteomyelitis <Kacey Anglin CNP - Last Filed: 11/28/22 14:00> Patient Disposition: Admitted As Inpatient <Kacey Anglin CNP - Last Filed: 11/28/22 14:00>
[2022-11-28 13:58] VITALS: TEMP 36.8
[2022-11-28 15:06] LABS: MANUAL DIFF FLAG NO
[2022-11-28 15:09] LABS: Basophils Absolute Auto 0.1 X10*3/uL (0.0-0.2); Basophils Percent Auto 0.5 % (0-2); Eosinophils Absolute Auto 0.1 X10*3/uL (0.0-0.4); Eosinophils Percent Auto 0.6 % (0-4); Hemoglobin 10.5 g/dl (14.0-18.0); Imm Gran Abs Auto 0.02 X10*3/uL (0.00-0.03); Imm Gran Pct Auto 0.2 % (0.0-0.4); Lymphocytes Absolute Auto 1.4 X10*3/uL (1.2-4.9); Lymphocytes Percent Auto 13.3 % (20-40); Mean Corpuscular HGB Conc 32.8 g/dl (31.0-36.0); Mean Corpuscular Hemoglobin 28.1 pg (27.0-33.0); Mean Corpuscular Volume 85.6 fL (80.0-98.0); Neutrophils Absolute Auto 7.9 x10*3/uL (2.0-8.3); Neutrophils Percent Auto 75.4 % (45-73); Platelet Count 367 X10*3/uL (160-400); Red Blood Count 3.74 X10*6/uL (4.60-5.80); Red Cell Distribution Width 15.2 % (11.0-16.0); White Blood Count 10.4 X10*3/uL (4.8-10.8)
[2022-11-28 15:22] LABS: Alanine Aminotransferase 19 U/L (0-40); Albumin Level 3.9 g/dL (3.5-5.0); Alkaline Phosphatase 106 U/L (39-117); Anion Gap 16 (12-20); Aspartate Amino Transferase 25 U/L (5-37); Bilirubin Total 0.8 mg/dL (0.0-1.0); Blood Urea Nitrogen 27 mg/dL (9-16); C Reactive Protein 2.49 mg/dL (< or = 0.50); Carbon Dioxide 23 mmol/L (22-29); Chloride 104 mmol/L (96-108); Creatinine Clr Calc Pharmacy 60.5; Estimated Glomerular Filt Rate 51; Glucose Random 133 mg/dL (60-115); Lipase 10 U/L (8-78); Potassium 4.2 mmol/L (3.3-5.1); Sodium 139 mmol/L (135-145); Total Protein 7.2 g/dL (6.5-8.0)
[2022-11-28 15:31] LABS: COVID-19 Test Negative (Negative); IDNOW Serial# 16C4AD1C
[2022-11-28 15:32] LABS: IDNOW Serial# BCCEAD1C; Influenza A Negative (Negative); Influenza B2 Negative (Negative)
[2022-11-28 15:55] LABS: Erythrocyte Sedimentation Rate 83 MM/HR (0-15)
[2022-11-28 21:30] VITALS: BP 143/80; PULSE 96; RESP 16; TEMP 36.8; O2SAT 97
[2022-11-28 21:59] LABS: Appearance Urine Clear; Color Urine Yellow; Glucose Urine UA 100 mg/dL (Negative); Leukocyte Esterase Urine Trace (Negative); Nitrite Urine Negative (Negative); UMIC TRIGGER UACC YES; Urine Blood Small (1+) (Negative); Urine Ketones Trace mg/dL (Negative); Urine Protein 300 (3+) mg/dL (Neg-Trace)
--- NOTE | 2022-11-28 22:49 | P.HPHOSP_ITS ---
History of Present Illness Date of Service: 11/28/22 Chief Complaint: Foot infection This is a 51-year-old male with pertinent history of peripheral artery disease status post left metatarsal amputation, history of DVT on Eliquis, mixed hyperlipidemia, essential hypertension, gastroesophageal reflux disease who pr esents to the emergency department for concerns of left foot infection. Patient states when he woke up he noticed that his left foot at the site of amputation was having serosanguineous drainage. Also had associated nausea and vomiting. Admits chills but denies fever. Patient states he is compliant with sliding scale insulin for his diabetes mellitus. He denies chest discomfort, palpitations, shortness of breath, abdominal pain, changes in urinary or bowel habits. In the emergency department, imaging concerning for osteomyelitis Review of Systems Constitutional: Constitutional: Reports chills Cardiovascular: Cardiovascular: Reports no additional cardiovascular complaints Respiratory: Respiratory: Reports no additional respiratory complaints Gastrointestinal: Gastrointestinal: Reports no additional gastrointestinal co mplaints Genitourinary: Genitourinary: Reports no additional male genitourinary complaints [facility], LAT[facility] Medical History Anemia Anemia Anemia of chronic disease Bacteremia Diabetes Diabetic foot ulcer Diabetic foot ulcer DMII (diabetes mellitus, type 2) Gangrene of toe of left foot GERD (gastroesophageal reflux disease) History of angiography Left ventricular ejection fraction of 40-49% Open wound Orthostatic hypotension PAD (peripheral artery disease) Peripheral vascular disease PICC (peripherally inserted central catheter) in place SOB (shortness of breath) on exertion Family History Other Diabetes No family history of cancer Surgical History Amputated toe of right foot (11/05/20) History of transmetatarsal amputation of left foot Social History Household Members: Spouse and Children Housing: Apartment Are you a primary plant care worker to a significant other at home: No Do you presently have visiting nurse or other home services: No Alcohol intake: current Alcohol intake frequency: a few times a week Alcohol type: hard liquor Patient Tobacco Use Status: Current someday Tobacco user Tobacco use type: Cigarette Cigarette Packs Per Day: 0.5 Years Smoked: 15 Smoked in Last 30 Days: Yes e-Cigarette/Vaping Use: Never Used Second Hand Smoke Exposure: No Use of substances other than those prescribed or required for medical reasons: No Advance Directives: No Advance Directives Information Provided: No service: No Current occupational status: unemployed Cognitive needs: No Hearing needs: No Vision needs: No Meds Allergies Allergy/AdvReac Type Severity Reaction Status Date / Time No Known Allergies Allergy Verified 11/04/22 10:05 Active Medications: Current Medications Vancomycin HCl (Vancomycin/Ns) 2,000 mg in 520 mls @ 260 mls/hr IV ONCE ONE Stop: 11/29/22 00:18 Sodium Chloride (Ns) 1,000 mls @ 999 mls/hr IVCONT .Q1H1M CAIT Stop: 11/28/22 23:30 Pharmacy Consult (Consult Rx Perform Med Rec) 1 each MISCELLANE ONCE STA Stop: 11/28/22 22:23 Home Medications Medication Instructions Recorded Confirmed Last Taken Type blood sugar diagnostic #10 ea 11/20/20 10/29/22 Unknown History pen needle, diabetic 32 gauge x #50 ea 11/20/20 10/29/22 Unknown History insulin glargine 100 unit/mL (3 30 unit subcut DAILY 09/18/22 10/29/22 Unknown History mL) subcutaneous pen (Basaglar KwikPen U-100 Insulin) ferrous sulfate 325 mg (65 mg 1 tab PO BID 09/30/22 10/29/22 Unknown History iron) tablet alcohol swabs (Alcohol Prep Pads) pad topical TID 10/14/22 10/29/22 Unknown History docusate sodium 100 mg capsule 100 mg PO DAILY 10/14/22 10/29/22 Unknown History pen needle, diabetic 32 gauge x 10/29/22 10/29/22 Unknown History (BD Ultra-Fine Karen Pen Needle) Physical Exam Vital Signs and Narrative: Vital Signs: Last Vital Signs Temp 98.2 F 11/28/22 21:30 Pulse 96 11/28/22 21:30 Resp 16 11/28/22 21:30 BP 143/80 H 11/28/22 21:30 Pulse Ox 97 11/28/22 21:30 O2 Del Method 11/28/22 21:30 BMI result Body Mass Index 29.0 Middle-aged male lying in bed in no distress Neck supple, no JVD Regular rate and rhythm, S1-S2 heard Regular breath sounds bilaterally, no wheezing or crackles appreciated Abdomen soft nontender, no guarding, no rigidity Patient is awake, alert and oriented to self, place, time and person ; no focal motor deficit Musculoskeletal: Left foot with metatarsal amputation, draining serosanguineous discharge Psych: Normal mood No pedal edema Results Labs 11/28/22 14:56 11/28/22 14:56 Labs: Laboratory Results - last 24 hr 11/28/22 11/28/22 11/28/22 14:56 14:56 14:56 MCV 85.6 MCH 28.1 MCHC 32.8 RDW 15.2 Plt Count 367 MPV 9.0 L Immature Gran % (Auto) 0.2 Neut % (Auto) 75.4 H Lymph % (Auto) 13.3 L [place] % (Auto) 10.0 Eos % (Auto) 0.6 Baso % (Auto) 0.5 Lymph # (Auto) 1.4 [place] # (Auto) 1.0 Eos # (Auto) 0.1 Baso # (Auto) 0.1 Abs Immat Gran (auto) 0.02 Absolute Neuts (auto) 7.9 Absolute Nucleated RBC 0.000 Nucleated RBC % (auto) 0.0 ESR 83 H Anion Gap 16 Estim Creat Clear Calc 60.5 Estimated GFR 51 Random Glucose 133 H Calcium 9.0 Total Bilirubin 0.8 AST 25 ALT 19 Alkaline Phosphatase 106 C-Reactive Protein 2.49 H Total Protein 7.2 Albumin 3.9 Lipase 10 Urine Color Urine Appearance Urine pH Ur Specific [place] Urine Protein Urine Glucose (UA) Urine Ketones Urine Blood Urine Nitrite Ur Leukocyte Esterase COVID-19 (DELIA) COVID-19 Clin Com Influenza Type A (TALIA) Influenza Type B (TALIA) Influenza A & B Note 11/28/22 11/28/22 11/28/22 14:56 14:56 21:50 MCV MCH MCHC RDW Plt Count MPV Immature Gran % (Auto) Neut % (Auto) Lymph % (Auto) [place] % (Auto) Eos % (Auto) Baso % (Auto) Lymph # (Auto) [place] # (Auto) Eos # (Auto) Baso # (Auto) Abs Immat Gran (auto) Absolute Neuts (auto) Absolute Nucleated RBC Nucleated RBC % (auto) ESR Anion Gap Estim Creat Clear Calc Estimated GFR Random Glucose Calcium Total Bilirubin AST ALT Alkaline Phosphatase C-Reactive Protein Total Protein Albumin Lipase Urine Color Yellow Urine Appearance Clear Urine pH 5.0 Ur Specific [place] 1.020 Urine Protein 300 (3+) H Urine Glucose (UA) 100 H Urine Ketones Trace Urine Blood Small (1+) H Urine Nitrite Negative Ur Leukocyte Esterase Trace H COVID-19 (DELIA) Negative COVID-19 Clin Com See Note Influenza Type A (TALIA) Negative Influenza Type B (TALIA) Negative Influenza A & B Note See Note Imaging Radiologist's Impressions: Impressions Foot X-Ray 11/28/22 15:18 IMPRESSION: Status post transmetatarsal amputation with soft tissue swelling and gas along the stump. Irregularity at the first metatarsal amputated site which could be an erosion. Osteomyelitis is possible. MRI could be performed to further evaluate. Assessment and Plan (1) Diabetic foot infection: Status: Acute Plan This is a 51-year-old male with pertinent history of peripheral artery disease status post left metatarsal amputation, history of DVT on Eliquis, mixed h yperlipidemia, essential hypertension, gastroesophageal reflux disease who presents to the emergency department for concerns of left foot infection. #. Diabetic foot infection with purulent cellulitis and imaging with concerns of osteomyelitis: Will admit patient and initiate empiric IV antibiotics. Obtaining MRI to rule out osteomyelitis. Consulted Infectious Disease, appreciate assistance. Surgery consult placed on MRI findings #. Acute kidney injury stage I, likely prerenal in the setting of intravascular volume depletion: Resuscitated with IV crystalloids in the ER. Avoid nephrot oxins #. Insulin-dependent diabetes mellitus: Initiating Accu-Cheks with sliding scale insulin #. History of DVT on Eliquis. Hold Eliquis and initiate therapeutic Lovenox in case patient needs surgical evaluation #. Essential hypertension: Continue home antihypertensives #. Mixed hyperlipidemia: On statin #. Gastroesophageal reflux disease: On PPI #. Chronic normocytic anemia Med rec pending DVT prophylaxis: Therapeutic Lovenox Diabetic diet Full code Admit as inpatient and will require two night minimum hospital stay for IV antibiotics Time Spent With Patient Time: Total time managing care of this patient today ____ minutes. Quality Stroke Does the patient have a stroke diagnosis?: No VTE Prior VTE?: Yes VTE Risk Level:: Medical - moderate - high VTE Device Contraindication: Treatment Not Indicated VTE Drug Contraindication: N/A - Med Ordered
[2022-11-28 23:07] LABS: Lactic Acid 1.8 mmol/L (0.5-2.0)
[2022-11-28 23:12] LABS: Bacteria Urine 1+ (None Seen); Squamous Epithelial Cell Urine 0-2 /HPF (0-2); UACC Culture Trigger YES
[2022-11-28] MEDS: 0.9 % Sodium Chloride 1,000 ML 999 ML IVCONT (23:16)
[2022-11-28] MEDS: Enoxaparin Sodium 80 MG/0.8 ML SYRINGE SUBCUT (23:16)
[2022-11-29 00:48] VITALS: BP 145/81; PULSE 83; RESP 14; TEMP 36.6; O2SAT 97
[2022-11-29 05:56] VITALS: BP 122/72; PULSE 89; RESP 19; TEMP 36.4; O2SAT 97
[2022-11-29 06:29] LABS: MANUAL DIFF FLAG NO
[2022-11-29 06:37] LABS: Basophils Percent Auto 0.4 % (0-2); Eosinophils Absolute Auto 0.2 X10*3/uL (0.0-0.4); Eosinophils Percent Auto 1.7 % (0-4); Hematocrit 29.2 % (42.0-52.0); Hemoglobin 9.7 g/dl (14.0-18.0); Imm Gran Abs Auto 0.02 X10*3/uL (0.00-0.03); Imm Gran Pct Auto 0.2 % (0.0-0.4); Lymphocytes Absolute Auto 1.5 X10*3/uL (1.2-4.9); Lymphocytes Percent Auto 15.5 % (20-40); Mean Corpuscular HGB Conc 33.2 g/dl (31.0-36.0); Mean Corpuscular Hemoglobin 28.4 pg (27.0-33.0); Mean Corpuscular Volume 85.6 fL (80.0-98.0); Mean Platelet Volume 9.2 fL (9.4-12.4); Monocytes Absolute Auto 1.1 X10*3/uL (0.1-1.2); Monocytes Percent Auto 11.1 % (2-11); Neutrophils Absolute Auto 6.9 x10*3/uL (2.0-8.3); Neutrophils Percent Auto 71.1 % (45-73); Platelet Count 342 X10*3/uL (160-400); Red Blood Count 3.41 X10*6/uL (4.60-5.80); Red Cell Distribution Width 15.2 % (11.0-16.0); White Blood Count 9.6 X10*3/uL (4.8-10.8)
[2022-11-29 06:48] LABS: Anion Gap 12 (12-20); Blood Urea Nitrogen 23 mg/dL (9-16); Calcium 8.4 mg/dL (8.4-10.2); Carbon Dioxide 22 mmol/L (22-29); Chloride 110 mmol/L (96-108); Creatinine Clr Calc Pharmacy 81.5; Estimated Glomerular Filt Rate > 60; Glucose Random 180 mg/dL (60-115); Potassium 4.1 mmol/L (3.3-5.1); Sodium 140 mmol/L (135-145)
[2022-11-29 07:23] LABS: Glucose, Whole Blood 193 mg/dL (60-115)
[2022-11-29] MEDS: Acetaminophen 325 MG TABLET 650 MG PO (07:29)
[2022-11-29] MEDS: cefEPime HCl 2 GM in 0.9 % Sodium Chloride 50 ML IV ×3 (07:29→22:21)
[2022-11-29] MEDS: Insulin Lispro 100 UNIT/ML 3 ML VIAL SUBCUT ×3 (07:30→22:20)
--- NOTE | 2022-11-29 07:35 | PC.NURSE ---
report taken from previous shift rn pt is resting comfortably in stretcher, rr even unlabored. pt admitted for cellulitis r/t l foot toe amp hx. vss. arousable to voice, denies significant pain at this time. breakfast brought to bedside, ate 100% without issue. ambulates to bathroom w slow steady gait independently, telugu speaking, a&ox4. medicated per emar. 22g in r ac positional but patent. awaiting report for inpt bed assignment. pt agreeable to present care plan, call lama within reach. back to bed resting at this time.
--- NOTE | 2022-11-29 07:53 | HO.PM.IMPN ---
Subjective Subjective Date of Service: 11/30/22 Interval History: patient very anxious about bone infection, no fevers, no chills, denies nausea vomiting, no abdominal pain, no diarrhea, no acute events since admit blood sugars stable. Review of Systems Review of Systems: Yes all other systems are reviewed and are negative Physical Exam Vital Signs: Vital Signs: Last Vital Signs Temp 97.5 F 11/29/22 05:56 Pulse 89 11/29/22 05:56 Resp 19 11/29/22 05:56 BP 122/72 11/29/22 05:56 Pulse Ox 97 11/29/22 05:56 O2 Del Method 11/29/22 05:56 BMI result Body Mass Index 29.0 Const: Other: General? awake alert x3, lying in bed in no distress Neck supple, no JVD CVSRegular rate and rhythm, S1-S2 heard respiratory regular breath sounds bilaterally, no wheezing or crackles Abdomen soft non tender, bowel sounds audible no guarding, no rigidity neuro nonfocal Musculoskeletal:? Left foot metatarsal amputation, no further sero sanguineous drainage No pedal edema Objective Data Active Medications Acetaminophen (Acetaminophen 325 Mg Tablet) 650 mg PO Q6H PRN PRN Reason: Pain, Mild (Pain Scale 1-3) Last Admin: 11/29/22 07:29 Dose: 650 mg Documented By: TREY Dextrose (Dextrose 50 % 25 Gm/50 Ml Syringe) 25 gm IVPUSH Q15M PRN; Protocol PRN Reason: per Hypoglycemia Standing Ord. Enoxaparin Sodium (Enoxaparin Sodium 80 Mg/0.8 Ml Syringe) 80 mg 1 mg/kg (80 mg) SUBCUT Q12H [facility] Last Admin: 11/28/22 23:16 Dose: 80 mg Documented By: DARLENE Glucose (Glucose Gel 15 Gm Gel..Gram.) 15 gm PO Q15M PRN; Protocol PRN Reason: per Hypoglycemia Standing Ord. Cefepime HCl 2 gm/ Sodium (Chloride) 50 mls @ 100 mls/hr IV Q8H [facility] Last Admin: 11/29/22 07:29 Dose: 100 mls/hr Documented By: TREY Vancomycin HCl 750 mg/ Sodium (Chloride) 265 mls @ 265 mls/hr IV Q12H [facility] Insulin Human Lispro (Insulin Lispro 100 Unit/Ml 3 Ml Vial) 0 unit SUBCUT QIDACHS [facility]; Protocol Last Admin: 11/29/22 07:30 Dose: 2 unit Documented By: TREY Melatonin (Melatonin 3 Mg Tablet) 6 mg PO BEDTIME PRN PRN Reason: Insomnia Ondansetron HCl (Ondansetron Hcl 4 Mg/2 Ml Vial) 4 mg IVPUSH Q8H PRN PRN Reason: Nausea and Vomiting Pharmacy Consult (Consult Rx Perform Med Rec) 1 each MISCELLANE ONCE STA Stop: 11/28/22 22:23 Pharmacy Consult (Consult Rx Vancomycin Dosing) 1 each MISCELLANE DAILY PRN PRN Reason: Consult order Sodium Chloride (0.9 % Sodium Chloride Flush 3 Ml Syringe) 3 ml IVFLUSH [facility] Last Admin: 11/29/22 07:01 Dose: Not Given Documented By: TREY Non-Admin Reason: Med Not Available Labs 11/29/22 05:51 11/29/22 05:51 Labs: Laboratory Results - last 24 hr 11/28/22 11/28/22 11/28/22 14:56 14:56 14:56 MCV 85.6 MCH 28.1 MCHC 32.8 RDW 15.2 Plt Count 367 MPV 9.0 L Immature Gran % (Auto) 0.2 Neut % (Auto) 75.4 H Lymph % (Auto) 13.3 L Vance % (Auto) 10.0 Eos % (Auto) 0.6 Baso % (Auto) 0.5 Lymph # (Auto) 1.4 Vance # (Auto) 1.0 Eos # (Auto) 0.1 Baso # (Auto) 0.1 Abs Immat Gran (auto) 0.02 Absolute Neuts (auto) 7.9 Absolute Nucleated RBC 0.000 Nucleated RBC % (auto) 0.0 ESR 83 H Anion Gap 16 Estim Creat Clear Calc 60.5 Estimated GFR 51 POC Glucose Random Glucose 133 H Lactic Acid Calcium 9.0 Total Bilirubin 0.8 AST 25 ALT 19 Alkaline Phosphatase 106 C-Reactive Protein 2.49 H Total Protein 7.2 Albumin 3.9 Lipase 10 Urine Color Urine Appearance Urine pH Ur Specific [place] Urine Protein Urine Glucose (UA) Urine Ketones Urine Blood Urine Nitrite Ur Leukocyte Esterase Urine RBC Urine WBC Ur Squamous Epith Cells Urine Bacteria Hyaline Casts COVID-19 (DELIA) COVID-19 Clin Com Influenza Type A (TALIA) Influenza Type B (TALIA) Influenza A & B Note 11/28/22 11/28/22 11/28/22 14:56 14:56 21:50 MCV MCH MCHC RDW Plt Count MPV Immature Gran % (Auto) Neut % (Auto) Lymph % (Auto) Vance % (Auto) Eos % (Auto) Baso % (Auto) Lymph # (Auto) Vance # (Auto) Eos # (Auto) Baso # (Auto) Abs Immat Gran (auto) Absolute Neuts (auto) Absolute Nucleated RBC Nucleated RBC % (auto) ESR Anion Gap Estim Creat Clear Calc Estimated GFR POC Glucose Random Glucose Lactic Acid Calcium Total Bilirubin AST ALT Alkaline Phosphatase C-Reactive Protein Total Protein Albumin Lipase Urine Color Yellow Urine Appearance Clear Urine pH 5.0 Ur Specific [place] 1.020 Urine Protein 300 (3+) H Urine Glucose (UA) 100 H Urine Ketones Trace Urine Blood Small (1+) H Urine Nitrite Negative Ur Leukocyte Esterase Trace H Urine RBC 3-5 H Urine WBC 6-10 Ur Squamous Epith Cells 0-2 Urine Bacteria 1+ Hyaline Casts 3-5 COVID-19 (DELIA) Negative COVID-19 Clin Com See Note Influenza Type A (TALIA) Negative Influenza Type B (TALIA) Negative Influenza A & B Note See Note 11/28/22 11/29/22 11/29/22 22:50 05:51 05:51 MCV 85.6 MCH 28.4 MCHC 33.2 RDW 15.2 Plt Count 342 MPV 9.2 L Immature Gran % (Auto) 0.2 Neut % (Auto) 71.1 Lymph % (Auto) 15.5 L Vance % (Auto) 11.1 H Eos % (Auto) 1.7 Baso % (Auto) 0.4 Lymph # (Auto) 1.5 Vance # (Auto) 1.1 Eos # (Auto) 0.2 Baso # (Auto) 0.0 Abs Immat Gran (auto) 0.02 Absolute Neuts (auto) 6.9 Absolute Nucleated RBC 0.000 Nucleated RBC % (auto) 0.0 ESR Anion Gap 12 Estim Creat Clear Calc 81.5 Estimated GFR > 60 POC Glucose Random Glucose 180 H Lactic Acid 1.8 Calcium 8.4 D Total Bilirubin AST ALT Alkaline Phosphatase C-Reactive Protein Total Protein Albumin Lipase Urine Color Urine Appearance Urine pH Ur Specific [place] Urine Protein Urine Glucose (UA) Urine Ketones Urine Blood Urine Nitrite Ur Leukocyte Esterase Urine RBC Urine WBC Ur Squamous Epith Cells Urine Bacteria Hyaline Casts COVID-19 (DELIA) COVID-19 Clin Com Influenza Type A (TALIA) Influenza Type B (TALIA) Influenza A & B Note 11/29/22 07:16 MCV MCH MCHC RDW Plt Count MPV Immature Gran % (Auto) Neut % (Auto) Lymph % (Auto) Vance % (Auto) Eos % (Auto) Baso % (Auto) Lymph # (Auto) Vance # (Auto) Eos # (Auto) Baso # (Auto) Abs Immat Gran (auto) Absolute Neuts (auto) Absolute Nucleated RBC Nucleated RBC % (auto) ESR Anion Gap Estim Creat Clear Calc Estimated GFR POC Glucose 193 H Random Glucose Lactic Acid Calcium Total Bilirubin AST ALT Alkaline Phosphatase C-Reactive Protein Total Protein Albumin Lipase Urine Color Urine Appearance Urine pH Ur Specific [place] Urine Protein Urine Glucose (UA) Urine Ketones Urine Blood Urine Nitrite Ur Leukocyte Esterase Urine RBC Urine WBC Ur Squamous Epith Cells Urine Bacteria Hyaline Casts COVID-19 (DELIA) COVID-19 Clin Com Influenza Type A (TALIA) Influenza Type B (TALIA) Influenza A & B Note Assessment and Plan (1) Diabetic foot infection: Status: Acute Plan 51-year-old male with pertinent history of peripheral artery disease status post left metatarsal amputation, history of DVT on Eliquis, mixed hyperlipidemia, essential hypertension, gastroesophageal reflux disease who presents to the emergency department for concerns of left foot infection. #.? Diabetic foot infection with purulent cellulitis and imaging with concerns of osteomyelitis at site of prior left metatarsal amputation done on 07/04/21:? continue IV cefepime and vancomycin day 1 MRI foot will be obtained on Thursday to rule out osteomyelitis. ? Consulted Infectious Disease #.? Acute kidney injury likely prerenal in the setting of intravascular volume depletion, resolved with IV fluids, Avoid nephrotoxins. #.? Insulin-dependent diabetes mellitus: Initiating Accu-Cheks with sliding scale insulin, stable blood sugars #.? History of DVT on Eliquis.? Hold Eliquis and continue therapeutic Lovenox in case patient needs surgical evaluation #.? Essential hypertension: Continue home antihypertensives #.? Mixed hyperlipidemia: On statin #.? Gastroesophageal reflux disease: On PPI #.? Chronic normocytic anemia hematocrit above transfusion threshold DVT prophylaxis:? Therapeutic Lovenox Full code will need continued inpatient hospitalization for IV antibiotics and further testing with MRI foot. Time Spent With Patient Time: Total time managing care of this patient today ____ minutes. Quality Stroke Does the patient have a stroke diagnosis?: No VTE Prior VTE?: Yes VTE Risk Level:: Medical - moderate - high VTE Device Contraindication: Treatment Not Indicated VTE Drug Contraindication: N/A - Med Ordered
[2022-11-29 08:00] VITALS: BP 158/88; PULSE 89; RESP 18; TEMP 37.2; O2SAT 98
--- NOTE | 2022-11-29 08:44 | PHA.MEDREC ---
Pharmacy Consult ? Medication Reconciliation Pharmacy has completed the medication reconciliation.spoke with patient. med rec completed.
--- NOTE | 2022-11-29 08:56 | HE.PHANOTE ---
FEDERICO PICHARDO CHANGED TROUGH TO TOMORROW AM @0900
[2022-11-29 10:04] LABS: Glucose, Whole Blood 153 mg/dL (60-115)
--- NOTE | 2022-11-29 10:13 | MHC.CM.PN ---
CM MET WITH PT. LIVES ALONE IN AN APT. NO PRIOR SERVICES OR DME USED (HAS A CANE BUT DOES NOT USE) NO HCP, DECLINES NO COVID VAX. PCP LOUIS NORIEGA AT [facility] [place]. DP: HOME, PT OPEN TO SERVICES IF NEEDED. HAS HAD [facility] IN PAST. REFERRAL SENT. PT HAS OWN RIDE HOME.
[2022-11-29 11:23] VITALS: BP 159/99; PULSE 84; RESP 18; TEMP 36.9; O2SAT 99
[2022-11-29 11:30] LABS: Glucose, Whole Blood 153 mg/dL (60-115)
[2022-11-29] MEDS: Enoxaparin Sodium 80 MG/0.8 ML SYRINGE SUBCUT ×2 (12:49→22:20)
[2022-11-29] MEDS: vancomycin HCL 750 MG in 0.9 % Sodium Chloride 250 ML 265 MG IV ×2 (12:50→23:00)
[2022-11-29] MEDS: 0.9 % Sodium Chloride Flush 3 ML SYRINGE IVFLUSH (14:56)
[2022-11-29 15:59] VITALS: BP 192/108; PULSE 90; RESP 14; TEMP 36.3; O2SAT 99
[2022-11-29 16:58] LABS: Glucose, Whole Blood 116 mg/dL (60-115)
[2022-11-29] MEDS: Losartan Potassium 25 MG TABLET PO (17:46)
[2022-11-29 19:44] VITALS: BP 162/100; PULSE 88; RESP 14; TEMP 36.8; O2SAT 97
[2022-11-29 20:52] LABS: Glucose, Whole Blood 174 mg/dL (60-115)
[2022-11-29] MEDS: Zolpidem Tartrate 5 MG TABLET PO (22:20)
--- NOTE | 2022-11-30 02:36 | PC.NURSE ---
Pts BP was 162/100. This nurse let Dr. Anderson know. No new orders were given.
[2022-11-30 04:00] VITALS: BP 132/82; PULSE 77; RESP 20; TEMP 36.3; O2SAT 98
[2022-11-30] MEDS: Omeprazole 40 MG CAPSULE.DR PO (05:54)
[2022-11-30 07:37] VITALS: BP 158/96; PULSE 87; RESP 18; TEMP 36.6; O2SAT 99
[2022-11-30 07:45] LABS: Glucose, Whole Blood 238 mg/dL (60-115)
[2022-11-30] MEDS: cefEPime HCl 2 GM in 0.9 % Sodium Chloride 50 ML IV ×3 (08:03→20:56)
[2022-11-30] MEDS: Losartan Potassium 25 MG TABLET PO (08:08)
[2022-11-30] MEDS: Atorvastatin Calcium 40 MG TABLET PO (08:08)
[2022-11-30] MEDS: Insulin Lispro 100 UNIT/ML 3 ML VIAL SUBCUT ×2 (08:13→21:05)
[2022-11-30] MEDS: Insulin Glargine,Hum.rec.anlog 100 UNIT/ML 10 ML VIAL 30 UNIT SUBCUT (08:14)
[2022-11-30] MEDS: 0.9 % Sodium Chloride Flush 3 ML SYRINGE IVFLUSH ×3 (08:14→20:56)
[2022-11-30 09:56] LABS: Creatinine Clr Calc Pharmacy 92.4; Estimated Glomerular Filt Rate > 60; Vancomycin Random 12.1 mcg/mL (15-20)
--- NOTE | 2022-11-30 10:21 | HE.PHANOTE ---
Vancomycin Dosing Level is therapeutic today but AUC is subtherapeutic. Will increase dose to vancomycin 1000 mg Q12H. New expect AUC 491 with a trough of 15.4 Next level scheduled for 12/01 @ 0900. Betzaida Clemons PharmD
[2022-11-30 11:31] LABS: Glucose, Whole Blood 147 mg/dL (60-115)
[2022-11-30] MEDS: Enoxaparin Sodium 80 MG/0.8 ML SYRINGE SUBCUT ×2 (12:01→20:55)
[2022-11-30] MEDS: vancomycin HCL 1,000 MG in 0.9 % Sodium Chloride 250 ML 270 MG IV (12:01)
--- NOTE | 2022-11-30 14:41 | HO.PM.IMPN ---
Subjective Subjective Date of Service: 11/30/22 Interval History: denies pain, no drainage from foot no fevers no chills no other acute issues overnight no nausea no vomiting tolerating diet patient is concerned that he has multiple outpatient follow-ups with his cardiology and Hematology and is due for iron infusion but loop that iron studies they are normal he does not qualify for IV iron, will notify Dr. Dougherty for patient's admission to hospital. Review of Systems Review of Systems: Yes all other systems are reviewed and are negative Physical Exam Vital Signs: Vital Signs: Last Vital Signs Temp 97.9 F 11/30/22 07:37 Pulse 87 11/30/22 07:37 Resp 18 11/30/22 07:37 BP 158/96 H 11/30/22 07:37 Pulse Ox 99 11/30/22 07:37 O2 Del Method 11/30/22 07:37 BMI result Body Mass Index 29.0 Const: Other: General?? awake al ert x3, lying in b ed in no distress Neck supple, no JV D CVSRegular rate and rhythm, S1-S2 heard respiratory? 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 neuro nonf ocal Musculoskelet al:? Left foot met atarsal amputation ,? no further sero sanguineous drain age No pedal edema Objective Data Active Medications Acetaminophen (Acetaminophen 325 Mg Tablet) 650 mg PO Q6H PRN PRN Reason: Pain, Mild (Pain Scale 1-3) Last Admin: 11/29/22 07:29 Dose: 650 mg Documented By: TREY Atorvastatin Calcium (Atorvastatin Calcium 40 Mg Tablet) 40 mg PO DAILY [facility] Last Admin: 11/30/22 08:08 Dose: 40 mg Documented By: JENNY Dextrose (Dextrose 50 % 25 Gm/50 Ml Syringe) 25 gm IVPUSH Q15M PRN; Protocol PRN Reason: per Hypoglycemia Standing Ord. Enoxaparin Sodium (Enoxaparin Sodium 80 Mg/0.8 Ml Syringe) 80 mg 1 mg/kg (80 mg) SUBCUT Q12H [facility] Last Admin: 11/30/22 12:01 Dose: 80 mg Documented By: JENNY Glucose (Glucose Gel 15 Gm Gel..Gram.) 15 gm PO Q15M PRN; Protocol PRN Reason: per Hypoglycemia Standing Ord. Cefepime HCl 2 gm/ Sodium (Chloride) 50 mls @ 100 mls/hr IV Q8H [facility] Last Infusion: 11/30/22 09:43 Dose: 0 mls/hr Documented By: JENNY Vancomycin HCl 1,000 mg/ (Sodium Chloride) 270 mls @ 270 mls/hr IV Q12H [facility] Last Infusion: 11/30/22 13:56 Dose: 0 mls/hr Documented By: JENNY Insulin Glargine (Insulin Glargine,Hum.Rec.Anlog 100 Unit/Ml 10 Ml Vial) 30 unit SUBCUT DAILY [facility] Last Admin: 11/30/22 08:14 Dose: 30 unit Documented By: JENNY Insulin Human Lispro (Insulin Lispro 100 Unit/Ml 3 Ml Vial) 0 unit SUBCUT QIDACHS [facility]; Protocol Last Admin: 11/30/22 11:53 Dose: Not Given Documented By: JENNY Non-Admin Reason: No Insulin Coverage Losartan Potassium (Losartan Potassium 25 Mg Tablet) 25 mg PO DAILY [facility]; Protocol Last Admin: 11/30/22 08:08 Dose: 25 mg Documented By: JENNY Melatonin (Melatonin 3 Mg Tablet) 6 mg PO BEDTIME PRN PRN Reason: Insomnia Omeprazole (Omeprazole 40 Mg Capsule.Dr) 40 mg PO DAILY@0630 [facility] Last Admin: 11/30/22 05:54 Dose: 40 mg Documented By: VICTOR MANUEL Ondansetron HCl (Ondansetron Hcl 4 Mg/2 Ml Vial) 4 mg IVPUSH Q8H PRN PRN Reason: Nausea and Vomiting Pharmacy Consult (Consult Rx Vancomycin Dosing) 1 each MISCELLANE DAILY PRN PRN Reason: Consult order Sodium Chloride (0.9 % Sodium Chloride Flush 3 Ml Syringe) 3 ml IVFLUSH QSHIFT [facility] Last Admin: 11/30/22 08:14 Dose: 3 ml Documented By: JENNY Labs 11/29/22 05:51 11/30/22 09:13 Labs: Laboratory Results - last 24 hr 11/29/22 11/29/22 11/30/22 16:47 19:49 07:39 Estim Creat Clear Calc Estimated GFR POC Glucose 116 H 174 H 238 H Random Vancomycin 11/30/22 11/30/22 11/30/22 09:13 09:13 11:18 Estim Creat Clear Calc 92.4 Estimated GFR > 60 POC Glucose 147 H Random Vancomycin 12.1 L Microbiology Microbiology Results: Microbiology 11/28/22 Unknown Urine Culture - Final Urine clean catch - Urine verma top No growth. 11/28/22 22:50 Blood Culture - Preliminary Blood - Venous No growth after 24 hours. 11/28/22 22:50 Blood Culture - Preliminary Blood - Venous No growth after 24 hours. Assessment and Plan (1) Diabetic foot infection: Status: Acute Plan 51-year-old male with pertinent history of peripheral artery disease status post left metatarsal amputation, history of DVT on Eliquis, mixed hyperlipidemia, essential hypertension, gastroesophageal reflux disease who presents to the emergency department for concerns of left foot infection. #.? Diabetic foot infection with purulent cellulitis and imaging with concerns of osteomyelitis at site of prior left metatarsal amputation done on 07/04/21:? continue IV cefepime and vancomycin day 2 MRI foot will be obtained on Thursday to rule out osteomyelitis. ? Consulted Infectious Disease for duration of abx will consult vascular surgery if MRI positive for osteo #.? Acute kidney injury likely prerenal in the setting of intravascular volume depletion, resolved with IV fluids, Avoid nephrotoxins. #.? Insulin-dependent diabetes mellitus: on Accu-Cheks ,sliding scale insulin,and lantus, stable blood sugars #.? History of DVT on Eliquis.? Hold Eliquis and continue therapeutic Lovenox in case patient needs surgical evaluation #.? Essential hypertension: Continue home antihypertensives #.? Mixed hyperlipidemia: On statin #.? Gastroesophageal reflux disease: On PPI #.? Chronic normocytic anemia hematocrit above transfusion threshold DVT prophylaxis:? Therapeutic Lovenox Full code will need continued inpatient hospitalization for IV antibiotics and further testing with MRI foot. Time Spent With Patient Time: Total time managing care of this patient today ____ minutes. Quality Stroke Does the patient have a stroke diagnosis?: No VTE Prior VTE?: Yes VTE Risk Level:: Medical - moderate - high VTE Device Contraindication: Treatment Not Indicated VTE Drug Contraindication: N/A - Med Ordered
[2022-11-30 15:17] VITALS: BP 186/110; PULSE 99; RESP 16; TEMP 36.6; O2SAT 95
[2022-11-30] MEDS: amLODIPine Besylate 10 MG TABLET PO (16:18)
[2022-11-30 16:41] LABS: Glucose, Whole Blood 149 mg/dL (60-115)
[2022-11-30 20:00] VITALS: BP 124/90; PULSE 98; RESP 16; TEMP 36.7; O2SAT 99
[2022-11-30 21:05] LABS: Glucose, Whole Blood 152 mg/dL (60-115)
[2022-11-30] MEDS: vancomycin HCL 1,000 MG in 0.9 % Sodium Chloride 250 ML 250 MG IV (21:36)
[2022-11-30] MEDS: Zolpidem Tartrate 5 MG TABLET PO (22:52)
[2022-11-30 23:32] VITALS: BP 159/89; PULSE 88; RESP 16; TEMP 36.8; O2SAT 99
[2022-12-01 04:00] VITALS: BP 146/89; PULSE 91; RESP 18; TEMP 36.4; O2SAT 98
[2022-12-01] MEDS: Omeprazole 40 MG CAPSULE.DR PO (05:45)
[2022-12-01] MEDS: cefEPime HCl 2 GM in 0.9 % Sodium Chloride 50 ML IV ×2 (05:54→16:00)
[2022-12-01 06:27] LABS: Creatinine Clr Calc Pharmacy 98.5; Estimated Glomerular Filt Rate > 60
[2022-12-01 07:29] VITALS: BP 145/87; PULSE 88; RESP 16; O2SAT 97
[2022-12-01 07:45] LABS: Glucose, Whole Blood 176 mg/dL (60-115)
[2022-12-01] MEDS: Insulin Glargine,Hum.rec.anlog 100 UNIT/ML 10 ML VIAL 30 UNIT SUBCUT (08:11)
[2022-12-01] MEDS: amLODIPine Besylate 10 MG TABLET PO (08:11)
[2022-12-01] MEDS: Losartan Potassium 25 MG TABLET PO (08:11)
[2022-12-01] MEDS: Insulin Lispro 100 UNIT/ML 3 ML VIAL SUBCUT ×2 (08:12→21:10)
[2022-12-01] MEDS: Atorvastatin Calcium 40 MG TABLET PO (08:18)
[2022-12-01 10:03] LABS: Vancomycin Trough 13.1 mcg/mL (10.0-20.0)
--- NOTE | 2022-12-01 10:13 | HE.PHANOTE ---
Vancomycin Dosing Addendum Patients level came back this morning at 13.1, this is therapeutic for patients indication of Skin infection. Patients renal is stable. Continue dose of 1000 mg Q12H, next draw is 12/02 @2100. Predicted AUC 436 mg/L/hr
[2022-12-01 11:50] LABS: Glucose, Whole Blood 149 mg/dL (60-115)
--- NOTE | 2022-12-01 12:00 | HO.PM.IMPN ---
Subjective Subjective Date of Service: 12/01/22 Interval History: concerned about multiple outpatient appointments this week including cardiac catheterization this Thursday, denies chest pain, no palpitation, no fevers, no chills, no drainage from left foot stump patient and do not wish to proceed with further amputation, tolerating diet. Review of Systems Review of Systems: Yes all other systems are reviewed and are negative Physical Exam Vital Signs: Vital Signs: Last Vital Signs Temp 97.6 F 12/01/22 04:00 Pulse 88 12/01/22 07:29 Resp 16 12/01/22 07:29 BP 145/87 H 12/01/22 07:29 Pulse Ox 97 12/01/22 07:29 O2 Del Method 12/01/22 07:29 BMI result Body Mass Index 29.0 Const: Other: General?? awake alert x3, lying in bed in no distress Neck supple, no JVD CVSRegular rate and rhythm, S1-S2 heard respiratory? regular breath sounds bilaterally, no wheezing or crackles Abdomen soft non tender, bowel sounds audible no guarding, no rigidity neuro nonfocal Musculoskeletal:? Left foot metatarsal amputation, boggy appearing,? no further sero sanguineous drainage, No pedal edema Objective Data Active Medications Acetaminophen (Acetaminophen 325 Mg Tablet) 650 mg PO Q6H PRN PRN Reason: Pain, Mild (Pain Scale 1-3) Last Admin: 11/29/22 07:29 Dose: 650 mg Documented By: TREY Amlodipine Besylate (Amlodipine Besylate 10 Mg Tablet) 10 mg PO DAILY [facility]; Protocol Last Admin: 12/01/22 08:11 Dose: 10 mg Documented By: NADINE Atorvastatin Calcium (Atorvastatin Calcium 40 Mg Tablet) 40 mg PO DAILY [facility] Last Admin: 12/01/22 08:18 Dose: 40 mg Documented By: NADINE Dextrose (Dextrose 50 % 25 Gm/50 Ml Syringe) 25 gm IVPUSH Q15M PRN; Protocol PRN Reason: per Hypoglycemia Standing Ord. Enoxaparin Sodium (Enoxaparin Sodium 80 Mg/0.8 Ml Syringe) 80 mg 1 mg/kg (80 mg) SUBCUT Q12H [facility] Last Admin: 11/30/22 20:55 Dose: 80 mg Documented By: ANTOIC Glucose (Glucose Gel 15 Gm Gel..Gram.) 15 gm PO Q15M PRN; Protocol PRN Reason: per Hypoglycemia Standing Ord. Cefepime HCl 2 gm/ Sodium (Chloride) 50 mls @ 100 mls/hr IV Q8H [facility] Last Infusion: 12/01/22 06:38 Dose: 0 mls/hr Documented By: ALISIA Vancomycin HCl 1,000 mg/ (Sodium Chloride) 270 mls @ 270 mls/hr IV Q12H [facility] Insulin Glargine (Insulin Glargine,Hum.Rec.Anlog 100 Unit/Ml 10 Ml Vial) 30 unit SUBCUT DAILY [facility] Last Admin: 12/01/22 08:11 Dose: 30 unit Documented By: NADINE Insulin Human Lispro (Insulin Lispro 100 Unit/Ml 3 Ml Vial) 0 unit SUBCUT QIDACHS [facility]; Protocol Last Admin: 12/01/22 08:12 Dose: 2 unit Documented By: NADINE Losartan Potassium (Losartan Potassium 25 Mg Tablet) 25 mg PO DAILY [facility]; Protocol Last Admin: 12/01/22 08:11 Dose: 25 mg Documented By: NADINE Melatonin (Melatonin 3 Mg Tablet) 6 mg PO BEDTIME PRN PRN Reason: Insomnia Omeprazole (Omeprazole 40 Mg Capsule.Dr) 40 mg PO DAILY@0630 [facility] Last Admin: 12/01/22 05:45 Dose: 40 mg Documented By: ALISIA Ondansetron HCl (Ondansetron Hcl 4 Mg/2 Ml Vial) 4 mg IVPUSH Q8H PRN PRN Reason: Nausea and Vomiting Pharmacy Consult (Consult Rx Vancomycin Dosing) 1 each MISCELLANE DAILY PRN PRN Reason: Consult order Sodium Chloride (0.9 % Sodium Chloride Flush 3 Ml Syringe) 3 ml IVFLUSH QSHIFT [facility] Last Admin: 12/01/22 09:07 Dose: Not Given Documented By: NADINE Non-Admin Reason: No Access Labs 11/29/22 05:51 12/01/22 05:47 Labs: Laboratory Results - last 24 hr 11/30/22 11/30/22 12/01/22 16:36 20:57 05:47 Estim Creat Clear Calc 98.5 Estimated GFR > 60 POC Glucose 149 H 152 H Vancomycin Trough 12/01/22 12/01/22 12/01/22 07:28 09:19 11:46 Estim Creat Clear Calc Estimated GFR POC Glucose 176 H 149 H Vancomycin Trough 13.1 Microbiology Microbiology Results: Microbiology 11/28/22 22:50 Blood Culture - Preliminary Blood - Venous No growth after 48 hours. 11/28/22 22:50 Blood Culture - Preliminary Blood - Venous No growth after 48 hours. 11/28/22 Unknown Urine Culture - Final Urine clean catch - Urine verma top No growth. Assessment and Plan (1) Diabetic foot infection: Status: Acute Plan 51-year-old male with pertinent history of peripheral artery disease status post left metatarsal amputation, history of DVT on Eliquis, mixed hyperlipidemia, essential hypertension, gastroesophageal reflux disease who presents to the emergency department for concerns of left foot infection. #.? Diabetic foot infection with purulent cellulitis and imaging with concerns of osteomyelitis at site of prior left metatarsal amputation done on 07/04/21:? continue IV cefepime and vancomycin day 2, blood cultures x2 negative MRI foot cannot be done since foot Coil is broken consult to Dr. Hammer he recommend to treat as osteomyelitis with IV antibiotics ? Consulted Infectious Disease for duration and chin choice of abx # coronary artery disease is scheduled for cardiac catheterization at [facility] on December 03 recommend to reschedule appointment, patient on losartan, Lipitor, Norvasc will obtain Cardiology consultation for medication adjustment. not on aspirin or beta-blockers, will add aspirin. #.? Acute kidney injury likely prerenal in the setting of intravascular volume depletion, resolved with IV fluids, Avoid nephrotoxins. #.? Insulin-dependent diabetes mellitus: on Accu-Cheks ,sliding scale insulin,and lantus, stable blood sugars #.? History of DVT on Eliquis.? resume Eliquis since no surgical procedure planned. will DC Lovenox #.? Essential hypertension: Continue home antihypertensives #.? Mixed hyperlipidemia: On statin #.? Gastroesophageal reflux disease: On PPI #.? Chronic normocytic anemia hematocrit above transfusion threshold. DVT prophylaxis:? Therapeutic Lovenox, will change to Eliquis Full code will need continued inpatient hospitalization for IV antibiotics and need for PICC line placement and adjustment of antibiotics. Time Spent With Patient Time: Total time managing care of this patient today ____ minutes. Quality Stroke Does the patient have a stroke diagnosis?: No VTE Prior VTE?: Yes VTE Risk Level:: Medical - moderate - high VTE Device Contraindication: Treatment Not Indicated VTE Drug Contraindication: N/A - Med Ordered
--- NOTE | 2022-12-01 12:59 | PM.CNGS ---
History of Present Illness Consult details Consult date: 12/01/22 Reason for consult: wound care Narrative: Very complex 51-year-old gentleman presents for follow-up evaluation in the hospital for nonhealing left transmetatarsal amputation. This had been done some while back and was doing extremely well at his May follow-up. Arterial testing at that time was within normal limits. He appeared to be doing extremely well at that time. He had been wearing his boots in was a little bit more active in anticipation of being able to ride his motorcycle again. His left trans met opened up. He now presents for follow-up evaluation. Review of Systems Review of Systems: Yes all other systems are reviewed and are negative Constitutional: Constitutional: Reports no additional constitutional complaints ENT: Reports Normal hearing present Cardiovascular: Cardiovascular: Denies chest pain, Denies chest pain at rest, Denies chest pain with activity and Denies pedal edema Respiratory: Respiratory: Denies cough Gastrointestinal: Gastrointestinal: Denies abdominal pain Musculoskeletal: Musculoskeletal: Denies abnormal gait, Denies muscle cramps and Denies radiating pain into limb Integumentary/Breasts: Skin/Breast: Denies skin ulcer and Denies wounds Neurologic: Reports Normal hearing present and Denies abnormal gait Psychiatric: Psychiatric: Reports no additional psychiatric complaints PMFSH Past Medical History Medical History Anemia Anemia Anemia of chronic disease Bacteremia Diabetes Diabetic foot ulcer Diabetic foot ulcer DMII (diabetes mellitus, type 2) Gangrene of toe of left foot GERD (gastroesophageal reflux disease) History of angiography Left ventricular ejection fraction of 40-49% Open wound Orthostatic hypotension PAD (peripheral artery disease) Peripheral vascular disease PICC (peripherally inserted central catheter) in place SOB (shortness of breath) on exertion Family History Family History Other Diabetes No family history of cancer Surgical History Surgical History Amputated toe of right foot (11/05/20) History of transmetatarsal amputation of left foot Social History Social History Household Members: None Housing: Apartment Are you a primary post anesthesia care unit nurse to a significant other at home: No Do you presently have visiting nurse or other home services: No Alcohol intake: current Alcohol intake frequency: a few times a week Alcohol type: hard liquor Patient Tobacco Use Status: Current everyday Tobacco user Tobacco use type: Cigarette Cigarette Packs Per Day: 0.5 Cigarettes Per Day: 3 Years Smoked: 15 e-Cigarette/Vaping Use: Never Used Second Hand Smoke Exposure: No service: No Current occupational status: unemployed Cognitive needs: No Hearing needs: No Vision needs: No Meds Allergies Allergy/AdvReac Type Severity Reaction Status Date / Time No Known Allergies Allergy Verified 11/04/22 10:05 Active Medications: Current Medications Acetaminophen (Acetaminophen 325 Mg Tablet) 650 mg PO Q6H PRN PRN Reason: Pain, Mild (Pain Scale 1-3) Last Admin: 11/29/22 07:29 Dose: 650 mg Amlodipine Besylate (Amlodipine Besylate 10 Mg Tablet) 10 mg PO DAILY [facility]; Protocol Last Admin: 12/01/22 08:11 Dose: 10 mg Apixaban (Apixaban 5 Mg Tablet) 5 mg PO BID [facility] Aspirin (Aspirin Enteric Coated 81 Mg Tablet.Dr) 81 mg PO DAILY [facility] Atorvastatin Calcium (Atorvastatin Calcium 40 Mg Tablet) 40 mg PO DAILY [facility] Last Admin: 12/01/22 08:18 Dose: 40 mg Dextrose (Dextrose 50 % 25 Gm/50 Ml Syringe) 25 gm IVPUSH Q15M PRN; Protocol PRN Reason: per Hypoglycemia Standing Ord. Glucose (Glucose Gel 15 Gm Gel..Gram.) 15 gm PO Q15M PRN; Protocol PRN Reason: per Hypoglycemia Standing Ord. Cefepime HCl 2 gm/ Sodium (Chloride) 50 mls @ 100 mls/hr IV Q8H [facility] Last Infusion: 12/01/22 06:38 Dose: Infused Vancomycin HCl 1,000 mg/ (Sodium Chloride) 270 mls @ 270 mls/hr IV Q12H [facility] Insulin Glargine (Insulin Glargine,Hum.Rec.Anlog 100 Unit/Ml 10 Ml Vial) 30 unit SUBCUT DAILY [facility] Last Admin: 12/01/22 08:11 Dose: 30 unit Insulin Human Lispro (Insulin Lispro 100 Unit/Ml 3 Ml Vial) 0 unit SUBCUT QIDACHS [facility]; Protocol Last Admin: 12/01/22 12:35 Dose: Not Given Losartan Potassium (Losartan Potassium 25 Mg Tablet) 25 mg PO DAILY [facility]; Protocol Last Admin: 12/01/22 08:11 Dose: 25 mg Melatonin (Melatonin 3 Mg Tablet) 6 mg PO BEDTIME PRN PRN Reason: Insomnia Omeprazole (Omeprazole 40 Mg Capsule.) 40 mg PO DAILY@0630 [facility] Last Admin: 12/01/22 05:45 Dose: 40 mg Ondansetron HCl (Ondansetron Hcl 4 Mg/2 Ml Vial) 4 mg IVPUSH Q8H PRN PRN Reason: Nausea and Vomiting Pharmacy Consult (Consult Rx Vancomycin Dosing) 1 each MISCELLANE DAILY PRN PRN Reason: Consult order Sodium Chloride (0.9 % Sodium Chloride Flush 3 Ml Syringe) 3 ml IVFLUSH QSHIFT [facility] Last Admin: 12/01/22 09:07 Dose: Not Given Home Medications Medication Instructions Recorded Confirmed Last Taken Type blood sugar diagnostic #10 ea 11/20/20 10/29/22 Unknown History pen needle, diabetic 32 gauge x #50 ea 11/20/20 10/29/22 Unknown History insulin glargine 100 unit/mL (3 30 unit subcut DAILY 09/18/22 11/29/22 11/28/22 History mL) subcutaneous pen (Basaglar KwikPen U-100 Insulin) ferrous sulfate 325 mg (65 mg 1 tab PO BID 09/30/22 11/29/22 11/28/22 History iron) tablet pen needle, diabetic 32 gauge x 10/29/22 10/29/22 Unknown History (BD Ultra-Fine Karen Pen Needle) apixaban 5 mg tablet (Eliquis) 5 mg PO BID 11/29/22 11/29/22 11/28/22 History Physical Exam Vital Signs: Vital Signs: Last Vital Signs Temp 97.6 F 12/01/22 04:00 Pulse 88 12/01/22 07:29 Resp 16 12/01/22 07:29 BP 145/87 H 12/01/22 07:29 Pulse Ox 97 12/01/22 07:29 O2 Del Method 12/01/22 07:29 BMI result Body Mass Index 29.0 Const: General: cooperative, healthy appearing and comfortable Orientation/consciousness: oriented to person, oriented to place and oriented to time HEENT: Head: Yes normal to inspection Neck: Neck: Yes normal visual inspection Carotids: no bruits Chest: Chest palpation & inspection: normal inspection of the chest Resp: Effort & Inspection: normal respiratory effort and able to speak in complete sentences Auscultation: clear to auscultation bilaterally, no crackles, no rales, no rhonchi and no wheezes Cardio: Other: Bilateral DP signals Rate: regular rate Rhythm: regular rhythm Heart sounds: S1 normal heart sound present and S2 normal heart sound present Bruits: no carotid bruits Peripheral pulses: Peripheral pulses 2+ throughout GI: Inspection: Yes normal to inspection Skin: Other: Left trans met site medial aspect soft boggy serous drainage no fluctuant collections able to palpate bone Wounds: no wounds Hair: normal Neuro: General: oriented to person, oriented to place and oriented to time Cranial nerves: Yes CN's II-XII intact bilaterally and Yes Normal hearing present Cognition (Neuro): normal cognition Motor exam (neuro): 5/5 motor strength present throughout Extrem: Other: venous exam: No significant superficial varicosities or spider telangiectasias, minimal edema General: No clubbing, No cyanosis and No edema Psych: Appearance: grossly normal Mental Status: mental status grossly normal Speech and movement: Normal speech and movement present Results Labs 11/29/22 05:51 12/01/22 05:47 Labs: Abnormal lab results 11/30/22 11/30/22 12/01/22 Range/Units 16:36 20:57 07:28 POC Glucose 149 H 152 H 176 H (60-115) mg/dL 12/01/22 Range/Units 11:46 POC Glucose 149 H (60-115) mg/dL BMP 12/01/22 05:47 Creatinine 0.91 Urine 11/28/22 Range/Units 21:50 Urine Color Yellow Urine Appearance Clear Urine pH 5.0 (5.0-9.0) Ur Specific [place] 1.020 (1.005-1.025) Urine Protein 300 (3+) H (Neg-Trace) mg/dL Urine Glucose (UA) 100 H (Negative) mg/dL All other labs normal. Assessment and Plan (1) Peripheral vascular disease: Status: Acute Plan In short patient has trans met site that reflux been. The concern is poorly fitting shoes and bed prosthetic has led to this. There is concern of osteomyelitis. I would treat him with 6 weeks of IV antibiotics. At the current time would like to manage him as conservatively as possible. He does not want any further amputation is. In addition we will obtain noninvasive arterial testing as it is been nearly 6 months since his last testing. I do suspect his hospital stay will be 2-3 days prior to us getting him out. Would hold off on cardiac catheterization another interventions to we are sure infection has been cleared. Case discussed with the hospitalist team. Thank you for allowing us to assist in his care. Time Spent With Patient Time: Total time managing care of this patient today ____ minutes. Procedures Date of Service Date of Service: 12/01/22
--- NOTE | 2022-12-01 13:04 | MHC.CLN ---
NUTRITION INCREASED DIETARY CALORIES TO DIABETIC 1800 [employer] FOR ESTIMATED ENERGY NEEDS.
--- NOTE | 2022-12-01 15:15 | MHC.CM.PN ---
per rounds pt may leave ama
--- NOTE | 2022-12-01 15:44 | W.PM.IDCN ---
History of Present Illness Data of Consult Service Date: 12/01/22 Requesting physician: Dustin Sandhu Primary Care Provider: [place] May Reason for consult: left stump erythema He presents with left stump erythema and swelling for a day. He has no fever or chills. He has OM Review of Systems Review of Systems: Yes all other systems are reviewed and are negative PMFSH Past Medical History Medical History Anemia Anemia Anemia of chronic disease Bacteremia Diabetes Diabetic foot ulcer Diabetic foot ulcer DMII (diabetes mellitus, type 2) Gangrene of toe of left foot GERD (gastroesophageal reflux disease) History of angiography Left ventricular ejection fraction of 40-49% Open wound Orthostatic hypotension PAD (peripheral artery disease) Peripheral vascular disease PICC (peripherally inserted central catheter) in place SOB (shortness of breath) on exertion Family History Family History Other Diabetes No family history of cancer Surgical History Surgical History Amputated toe of right foot (11/05/20) History of transmetatarsal amputation of left foot Social History Social History Household Members: None Housing: Apartment Are you a primary plant health care technician to a significant other at home: No Do you presently have visiting nurse or other home services: No Alcohol intake: current Alcohol intake frequency: a few times a week Alcohol type: hard liquor Patient Tobacco Use Status: Current everyday Tobacco user Tobacco use type: Cigarette Cigarette Packs Per Day: 0.5 Cigarettes Per Day: 3 Years Smoked: 15 e-Cigarette/Vaping Use: Never Used Second Hand Smoke Exposure: No service: No Current occupational status: unemployed Cognitive needs: No Hearing needs: No Vision needs: No Meds Allergies Allergy/AdvReac Type Severity Reaction Status Date / Time No Known Allergies Allergy Verified 11/04/22 10:05 Active Medications: Current Medications Acetaminophen (Acetaminophen 325 Mg Tablet) 650 mg PO Q6H PRN PRN Reason: Pain, Mild (Pain Scale 1-3) Last Admin: 11/29/22 07:29 Dose: 650 mg Amlodipine Besylate (Amlodipine Besylate 10 Mg Tablet) 10 mg PO DAILY [facility]; Protocol Last Admin: 12/01/22 08:11 Dose: 10 mg Apixaban (Apixaban 5 Mg Tablet) 5 mg PO BID [facility] Aspirin (Aspirin Enteric Coated 81 Mg Tablet.) 81 mg PO DAILY [facility] Atorvastatin Calcium (Atorvastatin Calcium 40 Mg Tablet) 40 mg PO DAILY [facility] Last Admin: 12/01/22 08:18 Dose: 40 mg Glucose (Glucose Gel 15 Gm Gel..Gram.) 15 gm PO Q15M PRN; Protocol PRN Reason: per Hypoglycemia Standing Ord. Cefepime HCl 2 gm/ Sodium (Chloride) 50 mls @ 100 mls/hr IV Q8H [facility] Last Infusion: 12/01/22 06:38 Dose: Infused Vancomycin HCl 1,000 mg/ (Sodium Chloride) 270 mls @ 270 mls/hr IV Q12H [facility] Dextrose (D10) 250 mls @ 750 mls/hr IV Q15M PRN; Protocol PRN Reason: per Hypoglycemia Standing Ord. Insulin Glargine (Insulin Glargine,Hum.Rec.Anlog 100 Unit/Ml 10 Ml Vial) 30 unit SUBCUT DAILY [facility] Last Admin: 12/01/22 08:11 Dose: 30 unit Insulin Human Lispro (Insulin Lispro 100 Unit/Ml 3 Ml Vial) 0 unit SUBCUT QIDACHS [facility]; Protocol Last Admin: 12/01/22 12:35 Dose: Not Given Losartan Potassium (Losartan Potassium 25 Mg Tablet) 25 mg PO DAILY [facility]; Protocol Last Admin: 12/01/22 08:11 Dose: 25 mg Melatonin (Melatonin 3 Mg Tablet) 6 mg PO BEDTIME PRN PRN Reason: Insomnia Omeprazole (Omeprazole 40 Mg Capsule.) 40 mg PO DAILY@0630 [facility] Last Admin: 12/01/22 05:45 Dose: 40 mg Ondansetron HCl (Ondansetron Hcl 4 Mg/2 Ml Vial) 4 mg IVPUSH Q8H PRN PRN Reason: Nausea and Vomiting Pharmacy Consult (Consult Rx Vancomycin Dosing) 1 each MISCELLANE DAILY PRN PRN Reason: Consult order Sodium Chloride (0.9 % Sodium Chloride Flush 3 Ml Syringe) 3 ml IVFLUSH QSHIFT [facility] Last Admin: 12/01/22 09:07 Dose: Not Given Home Medications Medication Instructions Recorded Confirmed Last Taken Type blood sugar diagnostic #10 ea 11/20/20 10/29/22 Unknown History pen needle, diabetic 32 gauge x #50 ea 11/20/20 10/29/22 Unknown History insulin glargine 100 unit/mL (3 30 unit subcut DAILY 09/18/22 11/29/22 11/28/22 History mL) subcutaneous pen (Basaglar KwikPen U-100 Insulin) ferrous sulfate 325 mg (65 mg 1 tab PO BID 09/30/22 11/29/22 11/28/22 History iron) tablet pen needle, diabetic 32 gauge x 10/29/22 10/29/22 Unknown History (BD Ultra-Fine Karen Pen Needle) apixaban 5 mg tablet (Eliquis) 5 mg PO BID 11/29/22 11/29/22 11/28/22 History Physical Exam Vital Signs: Vital Signs: Last Vital Signs Temp 97.6 F 12/01/22 04:00 Pulse 88 12/01/22 07:29 Resp 16 12/01/22 07:29 BP 145/87 H 12/01/22 07:29 Pulse Ox 97 12/01/22 07:29 O2 Del Method 12/01/22 07:29 BMI result Body Mass Index 29.0 Const: General: cooperative HEENT: Head: Yes normal to inspection Face and sinus: Yes normal facial exam Mouth: Normal oral and palatal mucosa present Teeth and gingiva: dentition normal Eyes: General: appearance normal, both eyes and all related structures Pupils: Equal, round and reactive pupils present Resp: Effort & Inspection: normal respiratory effort Cardio: Rate: regular rate Rhythm: regular rhythm GI: Palpation (GI): Soft to palpation and nontender : General: Yes no CVA tenderness Back/Spine/Pelvis: Back: no CVA tenderness Skin: General skin exam: no rashes or lesions noted Neuro: General: moves all extremities Cranial nerves: Yes Equal, round and reactive pupils present Extrem: Other: left stump metatarsal area serous drainage wound Psych: Appearance: grossly normal Results Labs 11/29/22 05:51 12/01/22 05:47 Labs: BMP 12/01/22 05:47 Creatinine 0.91 Microbiology Microbiology Results: Microbiology 11/28/22 22:50 Blood - Venous Blood Culture - Preliminary No growth after 48 hours. 11/28/22 22:50 Blood - Venous Blood Culture - Preliminary No growth after 48 hours. 11/28/22 Unknown Urine clean catch - Urine verma top Urine Culture - Final No growth. Assessment and Plan (1) Diabetic foot infection: Status: Acute He has osteomyelitis and no specific organism He has prior TMA Area is open Plan Six weeks Ertapenem Weekly CBC creatinine,SGOT. Time Spent With Patient Time: Total time managing care of this patient today ____ minutes.
[2022-12-01 15:52] VITALS: BP 151/64; PULSE 74; RESP 18; TEMP 36.3; O2SAT 98
[2022-12-01] MEDS: 0.9 % Sodium Chloride Flush 3 ML SYRINGE IVFLUSH ×2 (16:01→18:28)
[2022-12-01 16:18] LABS: Glucose, Whole Blood 149 mg/dL (60-115)
[2022-12-01] MEDS: Ertapenem Sodium 1 GM in 0.9 % Sodium Chloride 50 ML IV (18:28)
[2022-12-01 18:34] VITALS: BP 149/62; PULSE 81; RESP 16; TEMP 36.6; O2SAT 94
[2022-12-01 19:28] VITALS: BP 144/102; PULSE 100; RESP 18; TEMP 37; O2SAT 100
[2022-12-01 19:31] LABS: Glucose, Whole Blood 170 mg/dL (60-115)
[2022-12-01] MEDS: Apixaban 5 MG TABLET PO (20:28)
[2022-12-01] MEDS: Zolpidem Tartrate 5 MG TABLET PO (21:22)
[2022-12-02 03:24] VITALS: BP 136/87; PULSE 88; RESP 18; TEMP 36.8; O2SAT 96
[2022-12-02] MEDS: Omeprazole 40 MG CAPSULE.DR PO (06:13)
[2022-12-02 06:59] LABS: Hematocrit 28.9 % (42.0-52.0); Hemoglobin 9.5 g/dl (14.0-18.0); Mean Corpuscular HGB Conc 32.9 g/dl (31.0-36.0); Mean Corpuscular Hemoglobin 28.4 pg (27.0-33.0); Mean Corpuscular Volume 86.5 fL (80.0-98.0); Mean Platelet Volume 9.4 fL (9.4-12.4); Platelet Count 362 X10*3/uL (160-400); Red Blood Count 3.34 X10*6/uL (4.60-5.80); Red Cell Distribution Width 14.7 % (11.0-16.0); White Blood Count 10.1 X10*3/uL (4.8-10.8)
[2022-12-02 07:02] LABS: Anion Gap 12 (12-20); Blood Urea Nitrogen 17 mg/dL (9-16); Calcium 8.4 mg/dL (8.4-10.2); Carbon Dioxide 23 mmol/L (22-29); Chloride 109 mmol/L (96-108); Creatinine Clr Calc Pharmacy 105.4; Estimated Glomerular Filt Rate > 60; Glucose Random 147 mg/dL (60-115); Potassium 4.5 mmol/L (3.3-5.1); Sodium 139 mmol/L (135-145)
[2022-12-02 07:10] LABS: Glucose, Whole Blood 126 mg/dL (60-115)
[2022-12-02 07:22] VITALS: BP 164/96; PULSE 87; RESP 20; TEMP 36.8; O2SAT 96
[2022-12-02] MEDS: Apixaban 5 MG TABLET PO (09:31)
[2022-12-02] MEDS: amLODIPine Besylate 10 MG TABLET PO (09:31)
[2022-12-02] MEDS: Losartan Potassium 25 MG TABLET PO (09:31)
[2022-12-02] MEDS: Atorvastatin Calcium 40 MG TABLET PO (09:32)
[2022-12-02] MEDS: Aspirin Enteric Coated 81 MG TABLET.DR PO (09:33)
[2022-12-02] MEDS: 0.9 % Sodium Chloride Flush 3 ML SYRINGE IVFLUSH (09:33)
[2022-12-02] MEDS: Insulin Glargine,Hum.rec.anlog 100 UNIT/ML 10 ML VIAL 30 UNIT SUBCUT (09:36)
--- NOTE | 2022-12-02 09:44 | PM.CNCAR ---
History of Present Illness History of Present Illness Date of Service: 12/02/22 Chief complaint: Foot infection Narrative: This is a cardiology consultation regarding coronary artery disease. Patient was seen in the clinic recently regarding an abnormal echocardiogram. That showed cardiomyopathy with LVEF 40-45% as well as wall motion abnormalities and LVH. Patient himself did not have any anginal-type symptoms but he was complaining of weakness and exertion with activity. Subsequently, he underwent a stress test which was also abnormal. He was actually supposed to go for cardiac catheterization today but it seems that he got admitted to the hospital for foot issues. Per documentation, described to have diabetic foot infection with cellulitis/osteomyelitis at side of prior left metatarsal amputation. He is on antibiotics. We have been asked to see him from cardiac standpoint. At this time, he denies any clear-cut angina. States he is feeling generally okay. No specific cardiac complaints. Review of Systems Review of Systems: Yes all other systems are reviewed and are negative Constitutional: Constitutional: Reports as per HPI and Reports no additional constitutional complaints Eyes: Eyes: Reports as per HPI and Denies no additional eye complaints ENT: Denies system reviewed and no additional complaints, except as documented and Reports as per HPI Cardiovascular: Cardiovascular: Reports as per HPI, Reports no additional cardiovascular complaints, Denies acrocyanosis, Denies cool extremities, Denies chest pain, Denies leg edema, Denies lightheadedness, Denies palpitations and Denies dyspnea Respiratory: Respiratory: Reports as per HPI, Denies no additional respiratory complaints and Denies dyspnea Gastrointestinal: Gastrointestinal: Reports as per HPI and Denies no additional gastrointestinal complaints Genitourinary: Genitourinary: Reports no additional male genitourinary complaints and Reports as per HPI Musculoskeletal: Musculoskeletal: Reports no additional musculoskeletal complaints and Reports as per HPI Integumentary/Breasts: Skin/Breast: Reports system reviewed and no additional complaints, except as docu Neurologic: Reports system reviewed and no additional complaints, except as documented and Reports as per HPI Psychiatric: Psychiatric: Reports no additional psychiatric complaints and Reports as per HPI Endocrine: Endocrine: Reports no additional endocrine complaints, Reports as per HPI and Denies palpitations Hematologic/Lymphatic: Hematologic/Lymphatic: Reports no additional hematologic/lymphatic complaints and Reports as per HPI Allergic/Immunologic: Allergic/Immunologic: Reports no additional allergic/immunologic complaints and Reports as per HPI FORMERLY [facility], [facility]–1983 Past Medical History Medical History Anemia Anemia Anemia of chronic disease Bacteremia Diabetes Diabetic foot ulcer Diabetic foot ulcer DMII (diabetes mellitus, type 2) Gangrene of toe of left foot GERD (gastroesophageal reflux disease) History of angiography Left ventricular ejection fraction of 40-49% Open wound Orthostatic hypotension PAD (peripheral artery disease) Peripheral vascular disease PICC (peripherally inserted central catheter) in place SOB (shortness of breath) on exertion Family History Family History Other Diabetes No family history of cancer Surgical History Surgical History Amputated toe of right foot (11/05/20) History of transmetatarsal amputation of left foot Social History Social History Household Members: None Housing: Apartment Are you a primary complex care nurse to a significant other at home: No Do you presently have visiting nurse or other home services: No Alcohol intake: current Alcohol intake frequency: a few times a week Alcohol type: hard liquor Patient Tobacco Use Status: Current everyday Tobacco user Tobacco use type: Cigarette Cigarette Packs Per Day: 0.5 Cigarettes Per Day: 3 Years Smoked: 15 e-Cigarette/Vaping Use: Never Used Second Hand Smoke Exposure: No service: No Current occupational status: unemployed Cognitive needs: No Hearing needs: No Vision needs: No Meds Allergies Allergy/AdvReac Type Severity Reaction Status Date / Time No Known Allergies Allergy Verified 11/04/22 10:05 Active Medications: Current Medications Acetaminophen (Acetaminophen 325 Mg Tablet) 650 mg PO Q6H PRN PRN Reason: Pain, Mild (Pain Scale 1-3) Last Admin: 11/29/22 07:29 Dose: 650 mg Amlodipine Besylate (Amlodipine Besylate 10 Mg Tablet) 10 mg PO DAILY [facility]; Protocol Last Admin: 12/02/22 09:31 Dose: 10 mg Apixaban (Apixaban 5 Mg Tablet) 5 mg PO BID [facility] Last Admin: 12/02/22 09:31 Dose: 5 mg Aspirin (Aspirin Enteric Coated 81 Mg Tablet.) 81 mg PO DAILY [facility] Last Admin: 12/02/22 09:33 Dose: 81 mg Atorvastatin Calcium (Atorvastatin Calcium 40 Mg Tablet) 40 mg PO DAILY [facility] Last Admin: 12/02/22 09:32 Dose: 40 mg Glucose (Glucose Gel 15 Gm Gel..Gram.) 15 gm PO Q15M PRN; Protocol PRN Reason: per Hypoglycemia Standing Ord. Dextrose (D10) 250 mls @ 750 mls/hr IV Q15M PRN; Protocol PRN Reason: per Hypoglycemia Standing Ord. Insulin Glargine (Insulin Glargine,Hum.Rec.Anlog 100 Unit/Ml 10 Ml Vial) 30 unit SUBCUT DAILY [facility] Last Admin: 12/02/22 09:36 Dose: 30 unit Insulin Human Lispro (Insulin Lispro 100 Unit/Ml 3 Ml Vial) 0 unit SUBCUT QIDACHS [facility]; Protocol Last Admin: 12/02/22 07:25 Dose: Not Given Losartan Potassium (Losartan Potassium 25 Mg Tablet) 25 mg PO DAILY [facility]; Protocol Last Admin: 12/02/22 09:31 Dose: 25 mg Melatonin (Melatonin 3 Mg Tablet) 6 mg PO BEDTIME PRN PRN Reason: Insomnia Omeprazole (Omeprazole 40 Mg Capsule.Dr) 40 mg PO DAILY@0630 [facility] Last Admin: 12/02/22 06:13 Dose: 40 mg Ondansetron HCl (Ondansetron Hcl 4 Mg/2 Ml Vial) 4 mg IVPUSH Q8H PRN PRN Reason: Nausea and Vomiting Sodium Chloride (0.9 % Sodium Chloride Flush 3 Ml Syringe) 3 ml IVFLUSH QSHIFT [facility] Last Admin: 12/02/22 09:33 Dose: 3 ml Zolpidem Tartrate (Zolpidem Tartrate 5 Mg Tablet) 5 mg PO BEDTIME PRN PRN Reason: Insomnia Last Admin: 12/01/22 21:22 Dose: 5 mg Home Medications Medication Instructions Recorded Confirmed Last Taken Type blood sugar diagnostic #10 ea 11/20/20 10/29/22 Unknown History pen needle, diabetic 32 gauge x #50 ea 11/20/20 10/29/22 Unknown History insulin glargine 100 unit/mL (3 30 unit subcut DAILY 09/18/22 11/29/22 11/28/22 History mL) subcutaneous pen (Jagruti Horan U-100 Insulin) ferrous sulfate 325 mg (65 mg 1 tab PO BID 09/30/22 11/29/22 11/28/22 History iron) tablet pen needle, diabetic 32 gauge x 10/29/22 10/29/22 Unknown History (BD Ultra-Fine Karen Pen Needle) apixaban 5 mg tablet (Eliquis) 5 mg PO BID 11/29/22 11/29/22 11/28/22 History Physical Exam Vital Signs: Vital Signs: Last Vital Signs Temp 98.2 F 12/02/22 07:22 Pulse 87 12/02/22 07:22 Resp 20 12/02/22 07:22 BP 164/96 H 12/02/22 07:22 Pulse Ox 96 12/02/22 07:22 O2 Del Method 12/02/22 07:22 BMI result Body Mass Index 29.0 Const: General: comfortable and no acute distress Orientation/consciousness: patient oriented x3 HEENT: Other: Unremarkable Head: Yes normal to inspection Neck: Neck: Yes normal visual inspection Chest: Chest palpation & inspection: normal inspection of the chest Resp: Auscultation: clear to auscultation bilaterally Cardio: Palpation: normal PMI Heart sounds: S1 normal heart sound present, S2 normal heart sound present, no gallops, no murmurs and no rubs GI: Palpation (GI): Soft to palpation Back/Spine/Pelvis: Other: unremarkable Skin: General skin exam: no rashes or lesions noted Neuro: General: patient oriented x3 Extrem: General: Yes normal to inspection Psych: Mental Status: mental status grossly normal Objective Labs and Meds 12/02/22 05:52 12/02/22 05:52 Lab results: Laboratory Results - last 24 hr 12/01/22 12/01/22 12/01/22 09:19 11:46 16:15 WBC RBC Hgb Hct MCV MCH MCHC RDW Plt Count MPV Absolute Nucleated RBC Nucleated RBC % (auto) Sodium Potassium Chloride Carbon Dioxide Anion Gap BUN Creatinine Estim Creat Clear Calc Estimated GFR POC Glucose 149 H 149 H Random Glucose Calcium Vancomycin Trough 13.1 12/01/22 12/02/22 12/02/22 19:26 05:52 05:52 WBC 10.1 RBC 3.34 L Hgb 9.5 L Hct 28.9 L MCV 86.5 MCH 28.4 MCHC 32.9 RDW 14.7 Plt Count 362 MPV 9.4 Absolute Nucleated RBC 0.000 Nucleated RBC % (auto) 0.0 Sodium 139 Potassium 4.5 Chloride 109 H Carbon Dioxide 23 Anion Gap 12 BUN 17 H Creatinine 0.85 Estim Creat Clear Calc 105.4 Estimated GFR > 60 POC Glucose 170 H Random Glucose 147 H Calcium 8.4 Vancomycin Trough 12/02/22 07:07 WBC RBC Hgb Hct MCV MCH MCHC RDW Plt Count MPV Absolute Nucleated RBC Nucleated RBC % (auto) Sodium Potassium Chloride Carbon Dioxide Anion Gap BUN Creatinine Estim Creat Clear Calc Estimated GFR POC Glucose 126 H Random Glucose Calcium Vancomycin Trough ECG Interpretation: EKG from last year showed sinus tachycardia, 102/Min; possible old inferior infarct; left atrial enlargement. Slight QT prolongation. Need to repeat. Imaging Radiologist's impression: Impressions Abd US [id number] 12/01/22 19:15 IMPRESSION: No hemodynamically significant bilateral lower extremity arterial inflow or outflow disease is seen. Evaluation of the bilateral mid and distal superficial femoral artery segments is limited due to endovascular stents. EXAMINATION: NONINVASIVE ANKLE BRACHIAL INDICES OF BOTH LOWER EXTREMITIES CLINICAL INFORMATION: . COMPARISON: None. TECHNIQUE: Ankle-brachial indices were calculated bilaterally and PVR tracings were performed at the level of the ankles. This study was performed at rest only. FINDINGS: a) AT REST: 1. The ankle-brachial indices are: Right 1.04 and left 1.09. >0.97-1.25 = normal - no significant arterial disease. 0.75-0.96 = mild peripheral arterial disease. 0.5-0.74 = moderate peripheral arterial disease. <0.50 = severe peripheral arterial disease. 2. PVR waveforms at ankle: Bilaterally normal. IMPRESSION: Bilateral ankle-brachial indices are within normal limits. Duplex Scan Lower Extremity Artery 12/01/22 19:15 IMPRESSION: No hemodynamically significant bilateral lower extremity arterial inflow or outflow disease is seen. Evaluation of the bilateral mid and distal superficial femoral artery segments is limited due to endovascular stents. EXAMINATION: NONINVASIVE ANKLE BRACHIAL INDICES OF BOTH LOWER EXTREMITIES CLINICAL INFORMATION: . COMPARISON: None. TECHNIQUE: Ankle-brachial indices were calculated bilaterally and PVR tracings were performed at the level of the ankles. This study was performed at rest only. FINDINGS: a) AT REST: 1. The ankle-brachial indices are: Right 1.04 and left 1.09. >0.97-1.25 = normal - no significant arterial disease. 0.75-0.96 = mild peripheral arterial disease. 0.5-0.74 = moderate peripheral arterial disease. <0.50 = severe peripheral arterial disease. 2. PVR waveforms at ankle: Bilaterally normal. IMPRESSION: Bilateral ankle-brachial indices are within normal limits. 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 Echocardiogram with LVEF of 40-45%. Severe left ventricle hypertrophy. Inferolateral/basal inferior akinesis. Severely dilated left atrium. Myocardial perfusion imaging study shows multivessel ischemia including lateral, inferolateral and anterior wall. LVEF was 35% during stress and 42% with rest. TID present. He was supposed to go for cardiac catheterization as an outpatient today but canceled because of foot infection and hospitalization. When this is resolved, will need to be rescheduled. Clinically, he is not having active symptoms at this time. Hence can keep him on optimal medical regimen for his risk factors including diabetes and hypertension. Blood pressure still seems to be on the higher side. Hence can go up on the losartan dosing. Repeat EKG. Discussed with Dr. Cheatham. Time Spent With Patient Time: Total time managing care of this patient today 75 minutes. Procedures Date of Service Date of Service: 12/02/22
[2022-12-02 13:51] LABS: Glucose, Whole Blood 114 mg/dL (60-115)
[2022-12-02 15:20] VITALS: BP 144/87; PULSE 98; RESP 20; TEMP 37.3; O2SAT 99
--- NOTE | 2022-12-02 15:28 | P.DS_ITS ---
DS: Providers Provider Date of Service: 12/02/22 Date of admission: 11/28/22 22:46 Date of discharge: 12/02/22 Primary care physician: Fredy Adair PA-C Consults: 11/28/22 22:45 Consult to Infectious Diseases Routine Consulting Provider: Lourdes Gonzalez Reason for consultation: osteomyelitis 12/01/22 09:59 Consult to Vascular Surgery Routine Consulting Provider: [facility] [place] [facility] Reason for consultation: ? osteo left foot 1st metatarsal stump Has provider been notified: No 12/01/22 12:09 Consult to Cardiology Routine Consulting Provider: Lino Dougherty Reason for consultation: cad Has provider been notified: No 12/01/22 16:43 Consult to Infectious Diseases Routine Consulting Provider: Lourdes Gonzalez Reason for consultation: osteo Has provider been notified: Yes DS: Diagnosis Discharge Diagnosis (1) Atherosclerotic cardiovascular disease: Status: Acute (2) Cardiomyopathy: Status: Acute (3) Diabetic foot infection: Status: Acute (4) DMII (diabetes mellitus, type 2): Status: Acute (5) Peripheral vascular disease: Status: Acute (6) Hypertension: Status: Acute DS: Summary Hospital Course Hospital Course: 51-year-old male with pertinent history of peripheral artery disease status post left metatarsal amputation, history of DVT on Eliquis, mixed hyperlipidemia, essential hypertension, gastroesophageal reflux disease who presents to the emergency department for concerns of left foot infection.? Patient states when he woke up he noticed that his left foot at the site of amputation was having serosanguineous drainage.? Also had associated nausea and vomiting.? Admits chills but denies fever.? Patient states he is compliant with sliding scale insulin for his diabetes mellitus.? He denies chest discomfort, palpitations, shortness of breath, abdominal pain, changes in urinary or bowel habits. Hospital Course admitted and started on broad-spectrum antibiotics. Seen in consultation by vascular surgery who felt indeed this was osteomyelitis and treat with 6 weeks antibiotic. Per vascular wishes to treat this conservatively and patient does not want further amputation at this time. Seen in consultation by Infectious Disease; ID recommended 6 weeks of ertapenem. Subsequently PICC line was placed and he will be DC home to complete a course of ertapenem IV and follow up with vascular and Wound Care as an outpatient Time Spent with Patient Time attestation: Total time managing care of this patient today ____ minutes. Discharge coordination time: Greater than 30 minutes Quality: Safe Use of Opioids Does Pt have an Active Cancer Diagnosis on the Problem List?: No Quality: Stroke Does the patient have a stroke diagnosis?: No Physical Exam Vital Signs: Vital Signs: Last Vital Signs Temp 99.1 F 12/02/22 15:20 Pulse 98 12/02/22 15:20 Resp 20 12/02/22 15:20 BP 144/87 H 12/02/22 15:20 Pulse Ox 99 12/02/22 15:20 O2 Del Method 12/02/22 15:20 BMI result Body Mass Index 29.0 Const: Other: awake alert oriented x3 no acute distress Resp: Other: clear to auscultation bilaterally no rales rhonchi or wheezes Cardio: Other: no S4; positive S1-S2; no S3 murmurs rubs or gallops GI: Other: soft nontender nondistended nor Extrem: Other: no edema bilaterally DS: Data Data Completed and Pending Completed studies during hospitalization [Text1]: Procedures Detachment at Left Foot, Partial 1st Ray, Open Approach (06/30/21) Detachment at Left Foot, Partial 2nd Ray, Open Approach (06/30/21) Detachment at Left Foot, Partial 3rd Ray, Open Approach (06/30/21) Detachment at Left Foot, Partial 4th Ray, Open Approach (06/30/21) Detachment at Left Foot, Partial 5th Ray, Open Approach (06/30/21) Dilation of Left Femoral Artery with Intraluminal Device, Percutaneous Approach (06/30/21) Drainage of Right Foot Skin, External Approach (05/21/22) Extirpation of Matter from Left Femoral Artery, Percutaneous Approach (06/30/21) Extirpation of Matter from Right Popliteal Artery, Percutaneous Approach (09/20/20) Insertion of Infusion Device into Superior Vena Cava, Percutaneous Approach (05/21/22) Transfusion of Nonautologous Red Blood Cells into Peripheral Vein, Percutaneous Approach (05/21/22) Ultrasonography of Superior Vena Cava, Guidance (05/21/22) Labs on day of discharge: Laboratory Results - last 24 hr 12/01/22 12/01/22 12/02/22 16:15 19:26 05:52 WBC 10.1 RBC 3.34 L Hgb 9.5 L Hct 28.9 L MCV 86.5 MCH 28.4 MCHC 32.9 RDW 14.7 Plt Count 362 MPV 9.4 Absolute Nucleated RBC 0.000 Nucleated RBC % (auto) 0.0 Sodium Potassium Chloride Carbon Dioxide Anion Gap BUN Creatinine Estim Creat Clear Calc Estimated GFR POC Glucose 149 H 170 H Random Glucose Calcium 12/02/22 12/02/22 12/02/22 05:52 07:07 13:47 WBC RBC Hgb Hct MCV MCH MCHC RDW Plt Count MPV Absolute Nucleated RBC Nucleated RBC % (auto) Sodium 139 Potassium 4.5 Chloride 109 H Carbon Dioxide 23 Anion Gap 12 BUN 17 H Creatinine 0.85 Estim Creat Clear Calc 105.4 Estimated GFR > 60 POC Glucose 126 H 114 Random Glucose 147 H Calcium 8.4 Preliminary micro results at discharge 11/28/22 22:50 Blood Culture - Preliminary Blood - Venous No growth after 48 hours. 11/28/22 22:50 Blood Culture - Preliminary Blood - Venous No growth after 48 hours. Discharge Plan Discharge Anticipated Discharge Date/Time: 12/02/22 15:24 Patient Disposition: Home Health Service Discharge Diagnosis: Osteomyelitis Referrals: Fredy Adair PA-C [Primary Care Provider] - 1 Week Discharge Medications: New aspirin 81 mg Tablet,Delayed Release (Dr/Ec) 81 mg PO DAILY Qty: 30 0RF amlodipine 10 mg Tablet 10 mg PO DAILY Qty: 30 0RF Protocol: Hold for SBP< HOLD for SBP < : 90 ertapenem [Invanz] 1 gram recon soln 1 g IV Q24H Qty: 42 0RF Continued (DME) adhesive tape 2 X 72 tape See Rx Instructions .Route Qty: 12 0RF Rx Instructions: As directed (DME) blood-glucose meter [Contour Meter] Misc See Rx Instructions .Route Qty: 1 0RF Rx Instructions: As directed (DME) Contour Test Strips Strip See Rx Instructions .Route Qty: 100 1RF Rx Instructions: As directed atorvastatin 40 mg tablet 40 mg PO DAILY Qty: 90 1RF (DME) FreeStyle Jayla 2 Mobile Misc See Rx Instructions .Route Qty: 1 0RF Rx Instructions: As directed omeprazole 40 mg capsule,delayed release(DR/EC) 40 mg PO DAILY 90 Days Qty: 90 0RF metformin 1,000 mg tablet 1,000 mg PO BID Qty: 60 3RF (DME) FreeStyle Jayla 2 Sensor Kit See Rx Instructions .Route Qty: 1 3RF Rx Instructions: As directed ferrous sulfate 325 mg (65 mg iron) tablet 1 tab PO BID Eliquis 5 mg tablet 5 mg PO BID Rx Instructions: supposed to be taking BID but patient takes one daily insulin glargine [Basaglar KwikPen U-100 Insulin] 100 unit/mL (3 mL) insulin pen 30 unit subcut DAILY losartan 25 mg tablet 25 mg PO DAILY Qty: 30 3RF (DME) blood pressure monitor [Blood Pressure Kit] Kit See Rx Instructions .Route Qty: 1 0RF Rx Instructions: As directed (DME) blood sugar diagnostic Strip See Rx Instructions .ROUTE .MEDSUPPLY Qty: 10 Rx Instructions: As directed (DME) pen needle, diabetic 32 gauge x 5/32 needle See Rx Instructions subcut .MEDSUPPLY Qty: 50 Rx Instructions: As directed (DME) pen needle, diabetic [BD Ultra-Fine Karen Pen Needle] 32 gauge x 5/32 needle See Rx Instructions .ROUTE .MEDSUPPLY Rx Instructions: As directed 4 times a day Trulicity 1.5 mg/0.5 mL pen injector 1.5 mg subcut QWEEK Qty: 2 4RF Rx Instructions: GRANT Discharge Orders: Discharge Order (Routine); Ordered 12/02/22 Ordered By: Bryce Cheatham Diet: Advance to usual diet Activity on Discharge: As tolerated Stand Alone Forms: Patient Portal Discharge page Care Plan Goals: ertapenem 1 g IV every day for 6 weeks Health Concerns: continue all medications as taken before hospital. Plan of Treatment: Amlodipine added to your regimen as well as small dose aspirin. follow-up with next felt in 2 weeks Assessment: see discharge summary
--- NOTE | 2022-12-02 15:55 | MHC.CM.PN ---
DP: PT HAS BEEN MEDICALLY CLEARED FOR DC HOME WITH NEW [facility] (IV/WOUND CARE). RN AWARE. [facility] NOTIFIED. PT HAS OWN RIDE HOME.
[2022-12-02 16:36] LABS: Glucose, Whole Blood 155 mg/dL (60-115)
[2022-12-02] MEDS: Lidocaine HCl 1 % MPF 5 ML VIAL 10 ML SUBCUT (16:38)
--- NOTE | 2022-12-02 17:38 | HO.PICC ---
PICC Line Insertion NPICC Diagnosis: [non healing foot wound] Indication: [group home antibiotics needed] Pertinent Labs: [reviewed] Technique: Following informed consent including risks, benefits and alternatives and using sterile technique including cap and mask, sterile gown, glove and drape, the right arm was prepped and draped in the usual sterile fashion of full barrier technique with CHG. Following completion of [place] Protocol the skin and soft tissues were anesthetized with 1% Lidocaine plain. Using ultrasound guidance, right brachial vein access was obtained twice by Gabo France RN, but unable to advance guidewire. Right brachial vein was accessed on first attempt by Cat Miller RN, but unable to pass guidewire. Procedure was aborted and IR referral was made. The procedure was performed in [S272]. Ultrasound was used to document vein patency and for needle entry. A formal ultrasound picture was recorded.
== END 2022-12-02 17:33 | disposition home health service (06) | DRG 349 ==
LOC: HO.ED 22:22 → HO.EDOVER 23:04 → HO.IMC 11-29 06:20
PROVIDERS: Hospitalist; Nurse Practitioner Family; Radiology Diagnostic Radiology; Admitting Provider Student in an Organized Health Care Education/Training Program; Emergency Provider Emergency Medicine; PCP Physician Assistant; Visit Provider Hospitalist
PROC: 02HV33Z Insertion of Infusion Device into Superior Vena Cava, Percutaneous Approach (ICD-10-PCS; principal; 2022-12-02 16:00)
DX: T87.44 Infection of amputation stump, left lower extremity (principal); N17.9 Acute kidney failure, unspecified; I42.9 Cardiomyopathy, unspecified; E11.51 Type 2 diabetes mellitus with diabetic peripheral angiopathy without gangrene; M86.172 Other acute osteomyelitis, left ankle and foot; E11.69 Type 2 diabetes mellitus with other specified complication; D64.9 Anemia, unspecified; E78.2 Mixed hyperlipidemia; F17.210 Nicotine dependence, cigarettes, uncomplicated; K21.9 Gastro-esophageal reflux disease without esophagitis; I10 Essential (primary) hypertension; Z71.6 Tobacco abuse counseling; Z20.822 Contact with and (suspected) exposure to COVID-19; Z86.718 Personal history of other venous thrombosis and embolism; Z79.4 Long term (current) use of insulin; Z79.01 Long term (current) use of anticoagulants; Z79.82 Long term (current) use of aspirin; Z79.84 Long term (current) use of oral hypoglycemic drugs; Z79.899 Other long term (current) drug therapy
CPT/HCPCS: 36415; 36573; 73630; 80048; 80053; 80202; 81001; 81003; 82565; 82947; 83605; 83690; 85025; 85027; 85652; 86140; 87040; 87086; 87502; 87635; 93923; 93925; 99285; C1751; J0692; J1335; J1650; J3370

== ENCOUNTER 2022-12-10 13:22 | Outpatient (REF) | payer OTHER, SELFPAY ==
[2022-12-10 13:25] LABS: MANUAL DIFF FLAG NO
[2022-12-10 13:36] LABS: Basophils Absolute Auto 0.1 X10*3/uL (0.0-0.2); Basophils Percent Auto 0.7 % (0-2); Eosinophils Absolute Auto 0.2 X10*3/uL (0.0-0.4); Eosinophils Percent Auto 2.3 % (0-4); Hematocrit 29.4 % (42.0-52.0); Hemoglobin 9.6 g/dl (14.0-18.0); Imm Gran Abs Auto 0.04 X10*3/uL (0.00-0.03); Imm Gran Pct Auto 0.4 % (0.0-0.4); Lymphocytes Absolute Auto 1.5 X10*3/uL (1.2-4.9); Mean Corpuscular HGB Conc 32.7 g/dl (31.0-36.0); Mean Corpuscular Hemoglobin 28.6 pg (27.0-33.0); Mean Corpuscular Volume 87.5 fL (80.0-98.0); Mean Platelet Volume 9.5 fL (9.4-12.4); Monocytes Absolute Auto 0.8 X10*3/uL (0.1-1.2); Monocytes Percent Auto 8.3 % (2-11); Neutrophils Absolute Auto 6.9 x10*3/uL (2.0-8.3); Neutrophils Percent Auto 72.3 % (45-73); Platelet Count 353 X10*3/uL (160-400); Red Blood Count 3.36 X10*6/uL (4.60-5.80); Red Cell Distribution Width 14.6 % (11.0-16.0); White Blood Count 9.5 X10*3/uL (4.8-10.8)
[2022-12-10 14:03] LABS: Blood Urea Nitrogen 21 mg/dL (9-16); Estimated Glomerular Filt Rate > 60
== END 2022-12-10 13:23 | disposition home or self-care (01) ==
LOC: HO.HVNA 13:22
PROVIDERS: Visit Provider Internal Medicine
DX: M86.9 Osteomyelitis, unspecified (principal); L03.116 Cellulitis of left lower limb
CPT/HCPCS: 36415; 82565; 84520; 85025

== ENCOUNTER 2022-12-17 13:33 | Outpatient (REF) | payer OTHER, SELFPAY ==
[2022-12-17 13:43] LABS: MANUAL DIFF FLAG NO
[2022-12-17 13:50] LABS: Basophils Absolute Auto 0.1 X10*3/uL (0.0-0.2); Basophils Percent Auto 0.8 % (0-2); Eosinophils Absolute Auto 0.3 X10*3/uL (0.0-0.4); Eosinophils Percent Auto 3.8 % (0-4); Hematocrit 24.9 % (42.0-52.0); Hemoglobin 8.3 g/dl (14.0-18.0); Imm Gran Abs Auto 0.03 X10*3/uL (0.00-0.03); Imm Gran Pct Auto 0.4 % (0.0-0.4); Lymphocytes Absolute Auto 1.5 X10*3/uL (1.2-4.9); Lymphocytes Percent Auto 19.5 % (20-40); Mean Corpuscular HGB Conc 33.3 g/dl (31.0-36.0); Mean Corpuscular Hemoglobin 28.6 pg (27.0-33.0); Mean Corpuscular Volume 85.9 fL (80.0-98.0); Mean Platelet Volume 9.4 fL (9.4-12.4); Monocytes Absolute Auto 0.7 X10*3/uL (0.1-1.2); Monocytes Percent Auto 9.2 % (2-11); Neutrophils Absolute Auto 5.1 x10*3/uL (2.0-8.3); Neutrophils Percent Auto 66.3 % (45-73); Platelet Count 376 X10*3/uL (160-400); Red Cell Distribution Width 15.5 % (11.0-16.0); White Blood Count 7.6 X10*3/uL (4.8-10.8)
[2022-12-17 14:47] LABS: Blood Urea Nitrogen 17 mg/dL (9-16); Estimated Glomerular Filt Rate > 60
== END 2022-12-17 13:34 | disposition home or self-care (01) ==
LOC: HO.HVNA 13:33
PROVIDERS: Visit Provider Internal Medicine
DX: Z13.89 Encounter for screening for other disorder (principal)
CPT/HCPCS: 36415; 82565; 84520; 85025

== ENCOUNTER → 2022-12-19 12:12 | Outpatient (BNVA) | payer OTHER, SELFPAY | PROVIDERS: PCP Physician Assistant; Visit Provider Nurse Practitioner Family | DX: I42.9 Cardiomyopathy, unspecified (principal); I25.10 Atherosclerotic heart disease of native coronary artery without angina pectoris; I51.7 Cardiomegaly; I10 Essential (primary) hypertension; R06.02 Shortness of breath; E11.621 Type 2 diabetes mellitus with foot ulcer; L97.509 Non-pressure chronic ulcer of other part of unspecified foot with unspecified severity | CPT/HCPCS: 99212 ==

== ENCOUNTER 2022-12-24 12:56 | Outpatient (REF) | payer OTHER, SELFPAY ==
[2022-12-24 13:00] LABS: MANUAL DIFF FLAG NO
[2022-12-24 13:09] LABS: Basophils Percent Auto 0.4 % (0-2); Eosinophils Absolute Auto 0.2 X10*3/uL (0.0-0.4); Eosinophils Percent Auto 2.3 % (0-4); Hematocrit 26.9 % (42.0-52.0); Hemoglobin 8.8 g/dl (14.0-18.0); Imm Gran Abs Auto 0.03 X10*3/uL (0.00-0.03); Imm Gran Pct Auto 0.4 % (0.0-0.4); Lymphocytes Absolute Auto 1.2 X10*3/uL (1.2-4.9); Mean Corpuscular HGB Conc 32.7 g/dl (31.0-36.0); Mean Corpuscular Hemoglobin 29.2 pg (27.0-33.0); Mean Corpuscular Volume 89.4 fL (80.0-98.0); Mean Platelet Volume 9.4 fL (9.4-12.4); Monocytes Absolute Auto 0.9 X10*3/uL (0.1-1.2); Monocytes Percent Auto 10.5 % (2-11); Neutrophils Absolute Auto 5.9 x10*3/uL (2.0-8.3); Neutrophils Percent Auto 71.4 % (45-73); Platelet Count 381 X10*3/uL (160-400); Red Blood Count 3.01 X10*6/uL (4.60-5.80); Red Cell Distribution Width 15.9 % (11.0-16.0); White Blood Count 8.2 X10*3/uL (4.8-10.8)
[2022-12-24 13:34] LABS: Blood Urea Nitrogen 24 mg/dL (9-16); Estimated Glomerular Filt Rate > 60
== END 2022-12-24 12:57 | disposition home or self-care (01) ==
LOC: HO.HVNA 12:56
PROVIDERS: Visit Provider Internal Medicine
DX: M86.9 Osteomyelitis, unspecified (principal)
CPT/HCPCS: 36415; 82565; 84520; 85025

== ENCOUNTER 2022-12-31 12:08 | Outpatient (REF) | payer OTHER, SELFPAY ==
[2022-12-31 12:12] LABS: MANUAL DIFF FLAG NO
[2022-12-31 12:22] LABS: Basophils Absolute Auto 0.1 X10*3/uL (0.0-0.2); Basophils Percent Auto 0.8 % (0-2); Eosinophils Absolute Auto 0.3 X10*3/uL (0.0-0.4); Eosinophils Percent Auto 4.1 % (0-4); Hematocrit 27.6 % (42.0-52.0); Hemoglobin 8.9 g/dl (14.0-18.0); Imm Gran Abs Auto 0.02 X10*3/uL (0.00-0.03); Imm Gran Pct Auto 0.3 % (0.0-0.4); Lymphocytes Absolute Auto 1.5 X10*3/uL (1.2-4.9); Lymphocytes Percent Auto 22.2 % (20-40); Mean Corpuscular HGB Conc 32.2 g/dl (31.0-36.0); Mean Corpuscular Hemoglobin 28.5 pg (27.0-33.0); Mean Corpuscular Volume 88.5 fL (80.0-98.0); Mean Platelet Volume 9.6 fL (9.4-12.4); Monocytes Absolute Auto 0.6 X10*3/uL (0.1-1.2); Monocytes Percent Auto 8.5 % (2-11); Neutrophils Absolute Auto 4.2 x10*3/uL (2.0-8.3); Neutrophils Percent Auto 64.1 % (45-73); Platelet Count 376 X10*3/uL (160-400); Red Blood Count 3.12 X10*6/uL (4.60-5.80); White Blood Count 6.6 X10*3/uL (4.8-10.8)
[2022-12-31 13:36] LABS: Blood Urea Nitrogen 16 mg/dL (9-16); Estimated Glomerular Filt Rate > 60
== END 2022-12-31 12:09 | disposition home or self-care (01) ==
LOC: HO.LNP 12:08
PROVIDERS: Visit Provider Internal Medicine
DX: M86.9 Osteomyelitis, unspecified (principal); L03.116 Cellulitis of left lower limb
CPT/HCPCS: 82565; 84520; 85025

== ENCOUNTER → 2023-01-05 10:39 | Outpatient (BNVA) | payer OTHER, SELFPAY | PROVIDERS: PCP Physician Assistant; Visit Provider Internal Medicine | DX: M86.9 Osteomyelitis, unspecified (principal) | CPT/HCPCS: 99212 ==

== ENCOUNTER → 2023-01-06 10:37 | Outpatient (BNVA) | payer OTHER, SELFPAY | PROVIDERS: PCP Physician Assistant; Visit Provider Surgery Vascular Surgery | DX: I73.9 Peripheral vascular disease, unspecified (principal) | CPT/HCPCS: 99212 ==

== ENCOUNTER 2023-02-06 10:41 | Outpatient (REF) | payer MEDICARE, MEDICAID, OTHER, SELFPAY | END 2023-02-06 10:42 | disposition home or self-care (01) | LOC: HO.MDS 10:41 | PROVIDERS: Visit Provider Internal Medicine Medical Oncology | DX: D50.9 Iron deficiency anemia, unspecified (principal) | CPT/HCPCS: 96365; 99212; J1756 ==

== ENCOUNTER 2023-02-13 08:14 | Outpatient (REF) | payer MEDICARE, MEDICAID, OTHER, SELFPAY | END 2023-02-13 08:15 | disposition home or self-care (01) | LOC: HO.MDS 08:14 | PROVIDERS: Visit Provider Internal Medicine Medical Oncology | DX: D50.9 Iron deficiency anemia, unspecified (principal) | CPT/HCPCS: 96365; J1756 ==

== ENCOUNTER 2023-02-17 08:42 | Outpatient (REF) | payer MEDICARE, OTHER, SELFPAY | END 2023-02-17 08:43 | disposition home or self-care (01) | LOC: HO.MDS 08:42 | PROVIDERS: Visit Provider Internal Medicine Medical Oncology | DX: D50.9 Iron deficiency anemia, unspecified (principal) | CPT/HCPCS: 96365; J1756 ==

== ENCOUNTER 2023-02-27 08:11 | Outpatient (REF) | payer MEDICARE, MEDICAID, OTHER, SELFPAY | END 2023-02-27 08:12 | disposition home or self-care (01) | LOC: HO.MDS 08:11 | PROVIDERS: Visit Provider Internal Medicine Medical Oncology | DX: D50.9 Iron deficiency anemia, unspecified (principal) | CPT/HCPCS: 96365; J1756 ==

== ENCOUNTER → 2023-03-03 08:01 | Outpatient (BNVA) | payer OTHER, SELFPAY | PROVIDERS: PCP Physician Assistant; Visit Provider Internal Medicine Endocrinology, Diabetes & Metabolism | DX: E11.52 Type 2 diabetes mellitus with diabetic peripheral angiopathy with gangrene (principal); Z79.4 Long term (current) use of insulin | CPT/HCPCS: 82947; 83036; 99212 ==

== ENCOUNTER 2023-03-06 07:31 | Outpatient (REF) | payer OTHER, SELFPAY ==
[2023-03-06 08:17] LABS: MANUAL DIFF FLAG NO
[2023-03-06 08:46] LABS: Basophils Absolute Auto 0.1 X10*3/uL (0.0-0.2); Basophils Percent Auto 0.5 % (0-2); Eosinophils Absolute Auto 0.3 X10*3/uL (0.0-0.4); Eosinophils Percent Auto 2.7 % (0-4); Hematocrit 31.1 % (42.0-52.0); Hemoglobin 10.1 g/dl (14.0-18.0); Imm Gran Abs Auto 0.03 X10*3/uL (0.00-0.03); Imm Gran Pct Auto 0.3 % (0.0-0.4); Lymphocytes Absolute Auto 1.4 X10*3/uL (1.2-4.9); Lymphocytes Percent Auto 14.4 % (20-40); Mean Corpuscular HGB Conc 32.5 g/dl (31.0-36.0); Mean Corpuscular Hemoglobin 30.1 pg (27.0-33.0); Mean Corpuscular Volume 92.8 fL (80.0-98.0); Mean Platelet Volume 9.1 fL (9.4-12.4); Monocytes Absolute Auto 0.8 X10*3/uL (0.1-1.2); Neutrophils Absolute Auto 7.1 x10*3/uL (2.0-8.3); Neutrophils Percent Auto 74.1 % (45-73); Platelet Count 340 X10*3/uL (160-400); Red Blood Count 3.35 X10*6/uL (4.60-5.80); Red Cell Distribution Width 15.1 % (11.0-16.0); White Blood Count 9.6 X10*3/uL (4.8-10.8)
[2023-03-06 08:52] LABS: INTERNATIONAL NORM RATIO 0.9 (0.9-1.1); Prothrombin Time 10.7 SEC (10.0-13.1)
[2023-03-06 09:21] LABS: Alanine Aminotransferase 16 U/L (0-40); Albumin Level 3.6 g/dL (3.5-5.0); Alkaline Phosphatase 102 U/L (39-117); Anion Gap 12 (12-20); Aspartate Amino Transferase 17 U/L (5-37); Bilirubin Total 0.5 mg/dL (0.0-1.0); Blood Urea Nitrogen 21 mg/dL (9-16); Calcium 9.5 mg/dL (8.4-10.2); Carbon Dioxide 23 mmol/L (22-29); Chloride 109 mmol/L (96-108); Cholesterol 129 mg/dL; Estimated Glomerular Filt Rate > 60; Glucose Fasting 156 mg/dL (60-99); HDL Cholesterol 40 mg/dL; LDL Cholesterol Calculated 74 mg/dl; Potassium 4.7 mmol/L (3.3-5.1); Sodium 139 mmol/L (135-145); Total Protein 6.7 g/dL (6.5-8.0); Triglycerides 79 mg/dL
[2023-03-06 09:47] LABS: Prostate Specific Antigen Scr 0.72 ng/mL (<0.05-4.0)
[2023-03-06 11:02] LABS: Creatinine Urine 243.46 mg/dL
[2023-03-06 11:20] LABS: Microalbum/Creatinine Ratio Ur 821.4 ug/mg cr; Microalbumin Urine > 2000.0 mg/L
[2023-03-06 11:34] LABS: MANUAL DIFF FLAG NO
[2023-03-06 11:46] LABS: Basophils Percent Auto 0.5 % (0-2); Eosinophils Absolute Auto 0.2 X10*3/uL (0.0-0.4); Eosinophils Percent Auto 2.6 % (0-4); Hematocrit 28.9 % (42.0-52.0); Hemoglobin 9.4 g/dl (14.0-18.0); Imm Gran Abs Auto 0.03 X10*3/uL (0.00-0.03); Imm Gran Pct Auto 0.4 % (0.0-0.4); Lymphocytes Absolute Auto 1.3 X10*3/uL (1.2-4.9); Lymphocytes Percent Auto 16.8 % (20-40); Mean Corpuscular HGB Conc 32.5 g/dl (31.0-36.0); Mean Corpuscular Hemoglobin 30.2 pg (27.0-33.0); Mean Corpuscular Volume 92.9 fL (80.0-98.0); Mean Platelet Volume 9.4 fL (9.4-12.4); Monocytes Absolute Auto 0.5 X10*3/uL (0.1-1.2); Monocytes Percent Auto 6.6 % (2-11); Neutrophils Absolute Auto 5.6 x10*3/uL (2.0-8.3); Neutrophils Percent Auto 73.1 % (45-73); Platelet Count 325 X10*3/uL (160-400); Red Blood Count 3.11 X10*6/uL (4.60-5.80); Red Cell Distribution Width 15.1 % (11.0-16.0); White Blood Count 7.7 X10*3/uL (4.8-10.8)
[2023-03-06 12:12] LABS: Estimated Average Glucose 134 mg/dL; Hemoglobin A1c % 6.3 %
[2023-03-06 12:36] LABS: Anion Gap 13 (12-20); Blood Urea Nitrogen 22 mg/dL (9-16); C Reactive Protein 0.48 mg/dL (< or = 0.50); Calcium 9.4 mg/dL (8.4-10.2); Carbon Dioxide 22 mmol/L (22-29); Chloride 109 mmol/L (96-108); Erythrocyte Sedimentation Rate 65 MM/HR (0-15); Estimated Glomerular Filt Rate > 60; Glucose Random 178 mg/dL (60-115); Potassium 4.6 mmol/L (3.3-5.1); Sodium 139 mmol/L (135-145)
== END 2023-03-06 07:32 | disposition home or self-care (01) ==
LOC: HO.LAB 07:31
PROVIDERS: Physician Assistant; Absent Provider Internal Medicine Endocrinology, Diabetes & Metabolism; PCP Physician Assistant; Visit Provider Nurse Practitioner Family
DX: Z12.5 Encounter for screening for malignant neoplasm of prostate (principal); E11.52 Type 2 diabetes mellitus with diabetic peripheral angiopathy with gangrene; I25.10 Atherosclerotic heart disease of native coronary artery without angina pectoris; Z79.4 Long term (current) use of insulin
CPT/HCPCS: 36415; 80048; 80053; 80061; 82043; 83036; 84134; 84153; 85025; 85610; 85652; 86140

== ENCOUNTER 2023-03-06 08:23 | Outpatient (REF) | payer MEDICARE, MEDICAID, OTHER, SELFPAY | END 2023-03-06 08:24 | disposition home or self-care (01) | LOC: HO.MDS 08:23 | PROVIDERS: Visit Provider Internal Medicine Medical Oncology | DX: D50.9 Iron deficiency anemia, unspecified (principal) | CPT/HCPCS: 96365; J1756 ==

== ENCOUNTER 2023-03-13 08:34 | Outpatient (REF) | payer MEDICARE, MEDICAID, OTHER, SELFPAY | END 2023-03-13 08:35 | disposition home or self-care (01) | LOC: HO.MDS 08:34 | PROVIDERS: Visit Provider Internal Medicine Medical Oncology | DX: D50.9 Iron deficiency anemia, unspecified (principal) | CPT/HCPCS: 96365; J1756 ==

== ENCOUNTER → 2023-04-07 23:59 | Outpatient (BNV) | payer MEDICARE, MEDICAID, SELFPAY | PROVIDERS: PCP Physician Assistant; Visit Provider Internal Medicine Cardiovascular Disease | DX: R93.1 Abnormal findings on diagnostic imaging of heart and coronary circulation (principal); I25.118 Atherosclerotic heart disease of native coronary artery with other forms of angina pectoris | CPT/HCPCS: 92928; 93458; 99152 ==

== ENCOUNTER 2023-04-28 14:34 | Outpatient (AMB) | payer MEDICARE, MEDICAID, SELFPAY ==
[2023-04-28 14:35] VITALS: BP 140/68; PULSE 105; BMI 32.4
--- NOTE | 2023-04-28 14:35 | MHC.OFFVIS ---
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: No Allergies No Known Allergies Allergy (Verified 04/28/23 14:39) Medication List - Last Reconciled 04/28/23 by SADIQ Cobian adhesive tape As directed amlodipine 10 mg See Protocol PO DAILY apixaban (Eliquis) 5 mg PO BID aspirin 81 mg PO DAILY atorvastatin 40 mg PO DAILY blood pressure monitor (Blood Pressure Kit) As directed blood sugar diagnostic (Contour Test Strips) As directed blood sugar diagnostic As directed blood-glucose meter (Contour Meter) As directed clopidogrel (Plavix) 75 mg PO DAILY dulaglutide (Trulicity) 1.5 mg (0.5 mL) subcut QWEEK ertapenem (Invanz) 1 g IV Q24H ferrous sulfate 325 mg PO BID flash glucose scanning reader (Biovest InternationalStyle Jayla 2 [place]) for continuous use flash glucose sensor (FreeStyle Jayla 2 Sensor kit) for continuous use insulin glargine (Basaglar KwikPen U-100 Insulin) 30 units subcut DAILY losartan 25 mg PO DAILY metformin 1,000 mg PO BID metoprolol succinate ER 25 mg PO DAILY omeprazole 40 mg PO DAILY 90 days pen needle, diabetic test 4 times daily pen needle, diabetic (BD Ultra-Fine Karen Pen Needle) As directed 4 times a day sildenafil 100 mg PO DAILY PRN 5 days zolpidem (Ambien) 5 mg PO BEDTIME PRN 7 days HPI Follow up post cardiac cath HPI Details Irving 52-year-old male past medical history of hypertension, hyperlipidemia, diabetes, smoking, newer finding of cardiomyopathy, abnormal stress test suggestive of CAD who was then treated for left foot infection, osteomyelitis.? He had a PICC line in place and did undergoing IV antibiotics for several weeks. Once his osteomyelitis treatment was completed he underwent his cardiac catheterization, receiving stent to the LAD and now presents for follow-up. Today he reports that he does not feel any different since his cardiac catheterization procedure. He tells me he was not getting chest discomfort prior to the procedure. He denies any chest discomfort at rest or with activity. No shortness of breath, palpitations, dizziness, presyncope, syncope, PND, orthopnea or edema. He reports compliance with his medications. He continues to follow with the wound clinic as he does still have an open wound. He says he is no longer on any antibiotics. His right radial catheterization site is feeling good. He rides his motorcycle and stays busy throughout the day. [facility] Medical History Anemia Anemia Anemia of chronic disease Bacteremia Diabetes Diabetic foot ulcer Diabetic foot ulcer DMII (diabetes mellitus, type 2) Gangrene of toe of left foot GERD (gastroesophageal reflux disease) History of angiography Left ventricular ejection fraction of 40-49% Open wound Orthostatic hypotension PAD (peripheral artery disease) Peripheral vascular disease PICC (peripherally inserted central catheter) in place SOB (shortness of breath) on exertion Surgical History Amputated toe of right foot (11/05/20) History of transmetatarsal amputation of left foot Family History Other Diabetes No family history of cancer Social History Household Members: None Housing: Apartment Are you a primary career development coordinator to a significant other at home: No Do you presently have visiting nurse or other home services: No Alcohol intake: current Alcohol intake frequency: a few times a week Alcohol type: hard liquor Patient Tobacco Use Status: Current everyday Tobacco user Tobacco use type: Cigarette Cigarette Packs Per Day: 0.5 Cigarettes Per Day: 3 Years Smoked: 15 e-Cigarette/Vaping Use: Never Used Second Hand Smoke Exposure: No service: No Current occupational status: unemployed Cognitive needs: No Hearing needs: No Vision needs: No Review of Systems Const All systems reviewed & are unremarkable except as noted in HPI and below ENT Reports dizziness Card Denies chest pain, Denies chest pain at rest, Denies chest pain with activity, Denies rapid heart rate, Denies pedal edema, Denies edema, Denies leg edema, Denies lightheadedness, Denies palpitations, Denies dyspnea, Denies dyspnea on exertion and Denies orthopnea Resp Denies cough, Denies dyspnea and Denies dyspnea on exertion GI Denies hematochezia and Denies change in stool character Musc Denies abnormal gait, Reports limited range of motion, Reports muscle cramps, Denies muscle weakness, Denies numbness, Denies radiating pain into limb, Denies stiffness and Denies tingling Neuro Denies abnormal gait, Reports dizziness, Denies numbness and Denies tingling Endo Denies palpitations Physical Exam Vital Signs: Last Vital Signs Pulse 105 H 04/28/23 14:35 BMI result Body Mass Index 32.4 Const General: cooperative, comfortable and no acute distress Orientation/consciousness: patient oriented x3 Neck Neck: Yes normal visual inspection Resp Effort & Inspection: normal respiratory effort Auscultation: clear to auscultation bilaterally, no crackles, no rales, no rhonchi and no wheezes Cardio Jugular venous distension: no JVD Rate: regular rate Rhythm: regular rhythm Heart sounds: S1 normal heart sound present, S2 normal heart sound present, no murmurs and no rubs Neuro General: patient oriented x3 Extrem Other: Right radial catheterization site well healed General: Yes normal to inspection Psych Appearance: grossly normal Mental Status: mental status grossly normal Speech and movement: Normal speech and movement present Assessment & Plan Assessment & Plan (1) Cardiomyopathy: Code(s): I42.9 - Cardiomyopathy, unspecified Qualifiers: Cardiomyopathy type: unspecified Qualified Code(s): I42.9 - Cardiomyopathy, unspecified Plan: On prior visit reported shortness of breath with activity. Echocardiogram done 10/22/2022 with EF 40-45%, severe LVH, regional wall motion abnormalities. He underwent a pharmacological nuclear stress test on 10/30/2022 showing multi-vessel territory ischemia. He had presume CAD and was to have an outpatient cardiac catheterization for further evaluation but He was then admitted to [facility] November 2022 with infection left foot at site of transmetatarsal amp. He was treated for sepsis, bacteremia and osteomyelitis. He had a PICC line in place and undewent 6 weeks of IV antibiotics. Followed by PO Doxycyline. Once antibiotics were completed he underwent cardiac catheterization on 04/07/2023 showing mid LAD 80% stenosis. ZAC was placed. Today he reports that he is feeling well with no concerning symptoms. He tells me he feels no different after the catheterization then prior to it. He says he is taking meds as directed. He is currently on Plavix 75 mg daily uninterrupted for at least 1 year. Continue high-dose, atorvastatin, amlodipine, losartan. He is on Eliquis due to prior DVT which will be continued. He is not on aspirin. No known history of AFib. On last visit it was suggested he start on metoprolol however he declined. Today his blood pressure and heart rate are elevated. He is agreeable to start metoprolol XL 25 mg daily. He declines cardiac rehab. Cardiology follow-up in 3 months, sooner if needed. Will check limited echo to reassess EF prior to that visit. (2) Atherosclerotic cardiovascular disease: Code(s): I25.10 - Atherosclerotic heart disease of [place] coronary artery without angina pectoris (3) LVH (left ventricular hypertrophy): Code(s): I51.7 - Cardiomegaly Plan: Severe LVH on echo. He has history of hypertension. Mildly elevated at present. Added metoprolol. Continue amlodipine, losartan. (4) SOB (shortness of breath) on exertion: Code(s): R06.02 - Shortness of breath Plan: Resolved prior to cardiac catheterization according to patient (5) Hypertension: Code(s): I10 - Essential (primary) hypertension Qualifiers: Hypertension type: essential hypertension Qualified Code(s): I10 - Essential (primary) hypertension Plan: As above (6) Diabetes mellitus: Code(s): E11.9 - Type 2 diabetes mellitus without complications Plan: Hemoglobin A1c goal less than 7. Followed by PCP (7) Diabetic foot ulcer: Code(s): E11.621 - Type 2 diabetes mellitus with foot ulcer; L97.509 - Non-pressure chronic ulcer of other part of unspecified foot with unspecified severity Plan: As above. Still following with Wound Clinic Orders: Orders CA echo limited 10 Weeks I25.10 - Atherosclerotic heart disease of [place] coronary artery without angina pectoris, I42.9 - Cardiomyopathy, unspecified Medications: New metoprolol succinate ER 25 mg PO DAILY 90 tabs 1RF clopidogrel (Plavix) 75 mg PO DAILY 90 tabs 3RF Coding Level of Care Code Est Pt Level 4 (04560) Diagnoses Cardiomyopathy I42.9 Cardiomyopathy type: unspecified Atherosclerotic cardiovascular disease I25.10 LVH (left ventricular hypertrophy) I51.7 SOB (shortness of breath) on exertion R06.02 Hypertension I10 Hypertension type: essential hypertension Diabetes mellitus E11.9 Diabetic foot ulcer E11.621; L97.509
== END 2023-04-28 14:59 | disposition home or self-care (01) ==
PROVIDERS: PCP Physician Assistant; Visit Provider Nurse Practitioner Family
DX: I42.9 Cardiomyopathy, unspecified (principal); I25.10 Atherosclerotic heart disease of native coronary artery without angina pectoris; I51.7 Cardiomegaly; R06.02 Shortness of breath; I10 Essential (primary) hypertension; E11.621 Type 2 diabetes mellitus with foot ulcer; L97.509 Non-pressure chronic ulcer of other part of unspecified foot with unspecified severity
CPT/HCPCS: 99214

== ENCOUNTER → 2023-04-28 14:34 | Outpatient (BNVA) | payer MEDICARE, MEDICAID, SELFPAY | PROVIDERS: PCP Physician Assistant; Visit Provider Nurse Practitioner Family | DX: I42.9 Cardiomyopathy, unspecified (principal); I25.10 Atherosclerotic heart disease of native coronary artery without angina pectoris; E11.65 Type 2 diabetes mellitus with hyperglycemia; E11.621 Type 2 diabetes mellitus with foot ulcer; M86.9 Osteomyelitis, unspecified; L97.419 Non-pressure chronic ulcer of right heel and midfoot with unspecified severity; E11.69 Type 2 diabetes mellitus with other specified complication; I11.0 Hypertensive heart disease with heart failure; Z98.890 Other specified postprocedural states; Z95.5 Presence of coronary angioplasty implant and graft; Z79.82 Long term (current) use of aspirin; Z79.4 Long term (current) use of insulin | CPT/HCPCS: 99212 ==

== ENCOUNTER 2023-06-22 09:54 | Outpatient (REF) | payer MEDICARE, MEDICAID, SELFPAY ==
--- NOTE | ~2023-06-22 | US_ITS ---
EXAMINATION: NONINVASIVE ASSESSMENT OF THE ARTERIES OF BOTH LOWER EXTREMITIES INCLUDING PVR EXAM AND BILATERAL LOWER EXTREMITY DUPLEX CLINICAL INFORMATION: Peripheral vascular disease COMPARISON: Ultrasound 12/01/2022 TECHNIQUE: Ankle pulse volume recordings, ankle pressure measurements and ankle brachial indices were obtained of the lower extremity arterial system bilaterally in addition to duplex Doppler techniques with wave form analysis and measurement of velocities in the common femoral, profunda femoral, superficial femoral, popliteal, tibial and peroneal arteries. The study was performed only at rest. FINDINGS: RIGHT LEG 1. Right Ankle-Brachial Index: 1.12 (higher of the DP/PT) >0.97-1.25 = normal - no significant arterial disease 0.75-0.96 = mild peripheral arterial disease 0.5-0.74 = moderate peripheral arterial disease <0.50 = severe peripheral arterial disease <0.30 = critical arterial disease 2. Segmental Pressures (mmHg): Brachial: 184 Ankle: PT 206, DP 204 3. PVR Waveforms: Ankle: Lack of dicrotic notch 4. Direct Duplex: Common femoral artery: 96 cm/s, Multiphasic Profunda femoris artery: 137 cm/s, Multiphasic Superficial femoral artery (proximal): 202 cm/s, Multiphasic Superficial femoral artery (mid): 144 cm/s, Multiphasic Superficial femoral artery (distal): 265 cm/s, Multiphasic Distal to this point there is significant shadowing which obscures a 1.8 cm segment of the vessel. Proximal and distal to this segment peak systolic velocity is 157 cm/s and 133 cm/s respectively. The waveforms are multiphasic. There is also a collateral vessel at the level of the distal femoral with peak systolic velocity 201 cm/s and a monophasic waveform. Popliteal artery: 136 cm/s, monophasic Anterior tibial artery: 67.5 cm/s, Multiphasic Proximal posterior tibial artery: 203 cm/s, monophasic Mid posterior tibial artery: 84.9 cm/s, monophasic Peroneal artery: 114 cm/s, monophasic LEFT LE. Left Ankle-Brachial Index: 1.11 (higher of the DP/PT) >0.97-1.25 = normal - no significant arterial disease 0.75-0.96 = mild peripheral arterial disease 0.5-0.74 = moderate peripheral arterial disease <0.50 = severe peripheral arterial disease <0.30 = critical arterial disease 2. Segmental Pressures: Brachial: 174 Ankle: PT 204 3. PVR Waveforms: Ankle: Lack of dicrotic notch 4. Direct Duplex: Common femoral artery: 140 cm/s, Multiphasic Profunda femoris artery: 193 cm/s, Multiphasic Superficial femoral artery (proximal): 207 cm/s, monophasic There is a stent within the left superficial femoral artery at its proximal to midportion.. Proximal to the stent peak systolic velocity is 188 cm/s and waveform is monophasic. Proximal aspect of the stent: 220 cm/s, monophasic Mid stent: 133 cm/s, monophasic Distal stent: 107 cm/s, monophasic Superficial femoral artery (mid, distal to stent): 222 cm/s, monophasic Superficial femoral artery (distal): 139 cm/s, monophasic Proximal Popliteal artery: 171 cm/s, monophasic Proximal posterior tibial artery: 167 cm/s, monophasic Mid posterior tibial artery: 82 cm/s, monophasic Peroneal artery: 155 cm/s, monophasic US/US arterial duplex LE BI IMPRESSION: On the right the MOISE is 1.12 and there is lack of dicrotic notch on the PVR waveform. There is elevated velocity within the distal aspect of the superficial femoral artery beyond which the waveform in the popliteal artery is monophasic suggesting distal superficial femoral artery stenosis. On the left MOISE is 1.11 and there is lack of dicrotic notch on PVR waveform. Beyond level of the common femoral artery waveforms are monophasic throughout the lower extremity suggesting proximal stenosis. There is elevated velocity at the distal aspect of the left SFA stent which may suggest stenosis at this level as well.
== END 2023-06-22 09:55 | disposition home or self-care (01) ==
LOC: HO.US 09:54
PROVIDERS: PCP Physician Assistant; Visit Provider Surgery Vascular Surgery
DX: I73.9 Peripheral vascular disease, unspecified (principal)
CPT/HCPCS: 93923; 93925

== ENCOUNTER → 2023-06-25 09:17 | Outpatient (REF) | payer MEDICARE, MEDICAID, SELFPAY ==
--- NOTE | 2023-06-25 09:20 | CA_ITS ---
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 Study Quality: Good Conclusions: - Mildly reduced LV ejection fraction 45-50% with underlying regional wall motion abnormality consistent with ischemic cardiomyopathy Findings Left Ventricle Normal left ventricular cavity size. There is normal left ventricular wall thickness. The left ventricular systolic function is mildly decreased. The visually estimated ejection fraction is between 45-50%. Wall Motion Rest Echo Findings The basal inferior and basal inferoseptal segments are hypokinetic. The basal anterolateral and basal inferolateral segments are akinetic. All other scored wall segments showed normal motion. Prior Study Comparison Changes noted compared to prior study dated: 10/01/2022. LV systolic function marginally improved Measurements 2D Linear Measurements IVSd: 1.76 0.6-0.9/0.6-1.0 cm LVIDd: 4.58 3.9-5.3/4.2-5.9 cm LVIDd Index: 2.35 2.4-3.2/2.2-3.1 cm/m2 LVIDs: 3.66 2.0-3.6 cm LVPWd: 1.47 0.7-1.1 cm LV Mass: 395.52 67-162/88-224 g LV Mass Index: 202.83 43-95/49-115 g/m2 LVOT Diam: 2.20 3.0+(-)1.3 cm 2D Systolic Function EF 4C: 55.20 >55% EF 2C: 45.60 >55% EF BiP: 50.50 >55% Mitral Valve MV Pk E: 1.37 MV PK A: 0.93 MV Decel Time: 176.00 E/A: 1.50 E'Lateral: 8.27 E'Medial: 7.51 E/E' Med: 18.20 E/E' Lat: 16.60 PHT: 52.00 MVA PHT: 4.23 Decel Jewell: 7.80 Aortic Valve AoV Pk Ulysses: 1.48 AoV Mn [place]lysses: 0.99 AoV VTI: 0.32 AoV Pk Grad: 9.00 Aov Mn Grad: 4.00 KRUPA Cont.VTI: 2.51 LVOT LVOT Pk [place]lysses: 0.99 LVOT Mn Ulysses: 0.69 LVOT VTI: 0.21 LVOT Pk Grad: 4.00 LVOT Mn Grad: 2.00 LVOT Diam: 2.20 LVOT Area: 3.80 Diastolic Function MV Pk E: 1.37 MV Pk A: 0.93 E/A: 1.50 E'Medial: 7.51 E/E' Med: 18.20 E' Laterial: 8.27 E/E' Lat: 16.60 Updated in Other Vendor System with Status of Final Raimundo Morales MD electronically signed on 06/26/2023 10:42:59 AM with status of Final
== END ==
LOC: HO.CARD 09:17
PROVIDERS: PCP Physician Assistant; Visit Provider Nurse Practitioner Family
DX: I25.10 Atherosclerotic heart disease of native coronary artery without angina pectoris (principal); I42.9 Cardiomyopathy, unspecified
CPT/HCPCS: 93308

== ENCOUNTER → 2023-06-25 09:20 | Outpatient (BNV) | payer MEDICARE, MEDICAID, SELFPAY | PROVIDERS: PCP Physician Assistant; Visit Provider Internal Medicine Cardiovascular Disease | DX: I25.10 Atherosclerotic heart disease of native coronary artery without angina pectoris (principal) | CPT/HCPCS: 93308 ==

== ENCOUNTER 2023-07-07 10:27 | Outpatient (REF) | payer MEDICARE, MEDICAID, SELFPAY | END 2023-07-07 10:28 | disposition home or self-care (01) | LOC: HO.MDS 10:27 | PROVIDERS: Visit Provider Internal Medicine Medical Oncology | DX: D64.9 Anemia, unspecified (principal) | CPT/HCPCS: 36430; 86850; 86900; 86901; 86923; P9016 ==

== ENCOUNTER 2023-07-31 08:47 | Outpatient (AMB) | payer MEDICARE, MEDICAID, SELFPAY ==
--- NOTE | 2023-07-31 08:53 | MHC.OFFVIS ---
Intake Vital Signs 07/31/23 09:03 Height 5 ft 6 in Weight 199 lb BMI 32.1 BP 167/91 H Blood Pressure Location Lt brachial Position Sitting Pulse 75 Intake Visit Reasons: follow up Gerd Intake Note: Patient presents to in office visit today in follow up of GERD. CC: Patient reports that Omeprazole has been helping with GERD and denies having any new GI symptoms today. Allergies No Known Allergies Allergy (Verified 07/07/23 08:34) HPI follow up Gerd HPI Details Assessment & Plan (1) GERD with esophagitis: Code(s): K21.00 - Gastro-esophageal reflux disease with esophagitis, without bleeding Qualifiers: Esophagitis bleeding: without hemorrhage Qualified Code(s): K21.00 - Gastro-esophageal reflux disease with esophagitis, without bleeding Plan: Pt seen by Rose alberto, apparently this was a new referral and the staff did not note that she had seen me prior so this was a relatively unproductive situation. Severe cardiac and diabetes comorbid. Low fxn intellect. No GERD, CIC but dislikes pills (breathing bad until he poops then improves) on blood thinners, discuss smooth move tea. No dysphagia. Ordered colonoscopy/EGD but will need cardiac clearance. He may be going for a cath. He has multiple risk factors including an undefined but poor respiratory status, un known cardiac problems that require chronic anticoagulation with Eliquis, a history of DVT the likely reason for this, poor diabetic control with a history of amputation of his toes all making him a higher than usual risk for sedation anesthesia. I am uncertain of the urgency needed for these procedures given the fact that he has had 2- occult stool tests.. Reviewed US, barium swallow not scheduled. ROV after barium swallow. (2) Encounter for screening colonoscopy: Comment: Not a great historian No GI complaints, no family history GI cancer Awaiting cardiology/pulmonology consult- Established with GI provider, GI workup had begun. He will follow back Code(s): Z12.11 - Encounter for screening for malignant neoplasm of colon (3) Cardiomyopathy: Code(s): I42.9 - Cardiomyopathy, unspecified (4) Atherosclerotic cardiovascular disease: Code(s): I25.10 - Atherosclerotic heart disease of hughes coronary artery without angina pectoris (5) Intellectual delay: Code(s): F81.9 - Developmental disorder of scholastic skills, unspecified (6) Osteomyelitis: Code(s): M86.9 - Osteomyelitis, unspecified Qualifiers: Osteomyelitis type: other chronic Osteomyelitis location: foot Laterality: left Qualified Code(s): M86.672 - Other chronic osteomyelitis, left ankle and foot (7) Diabetic foot ulcer: Code(s): E11.621 - Type 2 diabetes mellitus with foot ulcer; L97.509 - Non-pressure chronic ulcer of other part of unspecified foot with unspecified severity (8) Cellulitis of foot: Code(s): L03.119 - Cellulitis of unspecified part of limb (9) Left ventricular ejection fraction of 40-49%: Comment: Echo 10/03/21: grade III severe diastolic dysfunction. 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 BARIUM SWALLOW Canceled in favor of EGD COLONOSCOPY/EGD Not yet scheduled her obtained BIOPSIES TODAY'S VISIT AFTER clearing him through cardiology and having an extra transfusion just prior to the procedure the procedure was canceled because the Trulicity was not held because of anesthesia objections. I believe that this appointment failed to be canceled as it was supposed to be a postprocedure follow-up. He says he went for his cardiac cast so that is done. We already have cardiac clearance so I want to get him booked as urgently as possible. He understands he needs to hold his Trulicity. I walked him down to the schedulers and the earliest we can get is October 01. I will try to coordinate with Oncology and see if they want to check his hematocrit and do a possible transfusion prior to then. I will see him after the procedure. He has multiple risk factors including an undefined but poor respiratory status, chronic anticoagulation with Eliquis, a history of DVT the likely reason for this, cardiomyopathy with a mildly reduced ejection fraction, poor diabetic control with a history of amputation of his toes, recent osteomyelitis, all making him a higher than usual risk for sedation anesthesia. He also has a mild cognitive disability. [facility] Medical History (Updated 07/31/23 @ 09:47 by ADELA Ford) Left ventricular ejection fraction of 40-49% SOB (shortness of breath) on exertion Anemia DMII (diabetes mellitus, type 2) Open wound Anemia of chronic disease Peripheral vascular disease Diabetic foot ulcer Anemia Orthostatic hypotension Gangrene of toe of left foot GERD (gastroesophageal reflux disease) History of angiography PICC (peripherally inserted central catheter) in place Bacteremia Diabetic foot ulcer PAD (peripheral artery disease) Diabetes Surgical History History of transmetatarsal amputation of left foot Amputated toe of right foot (11/05/20) Family History Other Diabetes No family history of cancer Social History Household Members: None Housing: Apartment Are you a primary primary health care nurse to a significant other at home: No Do you presently have visiting nurse or other home services: No Alcohol intake: current Alcohol intake frequency: a few times a week Alcohol type: hard liquor Patient Tobacco Use Status: Current everyday Tobacco user Tobacco use type: Cigarette Cigarette Packs Per Day: 0.5 Cigarettes Per Day: 3 Years Smoked: 15 e-Cigarette/Vaping Use: Never Used Second Hand Smoke Exposure: No service: No Current occupational status: unemployed Cognitive needs: No Hearing needs: No Vision needs: No Review of Systems Const Denies fatigue, Denies fever(s), Denies night sweats, Denies poor appetite and Denies weight loss Eyes Reports requires corrective lenses ENT Reports Normal hearing present, Denies dental pain, Denies dysphagia, Denies hearing loss, Denies mouth pain, Denies odynophagia, Denies throat swelling, Denies tongue swelling and Reports other (Dentition adequate) Card Reports no additional complaints Resp Reports no additional complaints GI Denies abdominal pain, Denies melena, Denies bloating, Denies hematochezia, Denies constipation, Denies GI cramping, Denies dysphagia, Denies excessive flatus, Denies early satiety, Reports heartburn, Denies diarrhea, Reports nausea, Denies odynophagia, Reports vomiting and Denies hematemesis Skin/Breast Denies pruritus, Denies lesions, Denies rash and Denies jaundice Neuro Reports Normal hearing present and Denies Abnormal speech present Endo Denies fatigue Aller/Immun Denies throat swelling and Denies tongue swelling Physical Exam Vital Signs: Last Vital Signs Pulse 75 07/31/23 09:03 BP 167/91 H 07/31/23 09:03 BMI result Body Mass Index 32.1 Const General: cooperative, no acute distress, well developed and well groomed Nutritional Appearance: well nourished and overweight Orientation/consciousness: oriented to person, oriented to place and oriented to time Limitations: No language barrier and other limitations (Mild cognitive delay) HEENT Head: Yes normocephalic and Yes atraumatic Eyes General: appearance normal, both eyes and all related structures Pupils: Equal, round and reactive pupils present Neck Neck: Yes normal visual inspection and Yes no lymphadenopathy Thyroid: Thyroid normal Resp Effort & Inspection: normal respiratory effort and able to speak in complete sentences Auscultation: crackles bilateral at the base, wheezes lower bilaterally and diminished lung sounds bilateral in the lower lung stuart Cardio Rate: regular rate Rhythm: regular rhythm Heart sounds: Normal, physiologic split S2 sound present Peripheral pulses: radial pulses present and posterior tibial pulses present GI Inspection: No distended and No Abdominal panniculus present Palpation (GI): Soft to palpation, nontender, no guarding, not rigid and No hepatosplenomegaly present Percussion: Yes normal to percussion Auscultation: normal bowel sounds Rectal Exam - Male: Yes deferred Skin General skin exam: no rashes or lesions noted, turgor normal, skin not dry, no jaundice, No spider nevi and no striae Rashes: no rashes Nails: normal Neuro General: oriented to person, oriented to place and oriented to time Cranial nerves: Yes Equal, round and reactive pupils present and Yes Normal hearing present Speech: No Abnormal speech present Extrem General: Yes normal to inspection, No clubbing, No cyanosis and No edema Psych Appearance: grossly normal and disheveled Mental Status: mental status grossly normal Speech and movement: Normal speech and movement present Affect: normal affect Attitude: cooperative Thought process: not confabulating and Impoverished thought process present Thought content: Normal thought content present Insight: Limited insight present (Psych) and Poor insight present (Psych) Judgement: Limited judgement present (Psych) and Poor judgement present (Psych) Results Reviewed Results Reviewed: Laboratory Tests 07/07/23 07/07/23 07/15/23 08:31 08:31 08:50 WBC 7.6 RBC 3.21 L D Hgb 9.1 L D Hct 28.6 L D MCV 89.1 MCH Plt Count Estimated GFR > 60 Ferritin 16 L Total Bilirubin 0.5 AST 19 ALT 16 Alkaline Phosphatase 93 Blood Type Antibody Screen 07/15/23 07/15/23 08:50 08:50 WBC RBC Hgb Hct MCV MCH 28.3 Plt Count 373 Estimated GFR Ferritin Total Bilirubin AST ALT Alkaline Phosphatase Blood Type A Positive Antibody Screen NEGATIVE Assessment & Plan Assessment & Plan (1) Anemia: Code(s): D64.9 - Anemia, unspecified Qualifiers: Anemia type: unspecified type Qualified Code(s): D64.9 - Anemia, unspecified Plan: BARIUM SWALLOW Canceled in favor of EGD COLONOSCOPY/EGD Not yet scheduled her obtained BIOPSIES TODAY'S VISIT His GERD is well controlled however he still has episodes of nausea and vomiting. It is hard to say what is causing this could be an element of diabetic gastroparesis could be related to his Trulicity I think it is probably multifactorial. The EGD may be helpful with this. AFTER clearing him through cardiology and having an extra transfusion just prior to the procedure the procedure was canceled because the Trulicity was not held because of anesthesia objections. I believe that this appointment failed to be canceled as it was supposed to be a postprocedure follow-up. He says he went for his cardiac cast so that is done. We already have cardiac clearance so I want to get him booked as urgently as possible. He understands he needs to hold his Trulicity. I walked him down to the schedulers and the earliest we can get is October 01. I will try to coordinate with Oncology and see if they want to check his hematocrit and do a possible transfusion prior to then. I will see him after the procedure. He has multiple risk factors including an undefined but poor respiratory status, chronic anticoagulation with Eliquis, a history of DVT the likely reason for this, cardiomyopathy with a mildly reduced ejection fraction, poor diabetic control with a history of amputation of his toes, recent osteomyelitis, all making him a higher than usual risk for sedation anesthesia. He also has a mild cognitive disability. (2) Pre-op examination: Code(s): Z01.818 - Encounter for other preprocedural examination (3) GERD with esophagitis: Code(s): K21.00 - Gastro-esophageal reflux disease with esophagitis, without bleeding Qualifiers: Esophagitis bleeding: without hemorrhage Qualified Code(s): K21.00 - Gastro-esophageal reflux disease with esophagitis, without bleeding Plan: Continues on his omeprazole with good control (4) Chronic anticoagulation: Code(s): Z79.01 - [facility] (current) use of anticoagulants (5) Intellectual delay: Code(s): F81.9 - Developmental disorder of scholastic skills, unspecified (6) Cardiomyopathy: Code(s): I42.9 - Cardiomyopathy, unspecified Qualifiers: Cardiomyopathy type: unspecified Qualified Code(s): I42.9 - Cardiomyopathy, unspecified (7) Left ventricular ejection fraction of 40-49%: Comment: Echo 10/03/21: grade III severe diastolic dysfunction. Code(s): R94.30 - Abnormal result of cardiovascular function study, unspecified (8) Osteomyelitis: Comment: He has much improved foot Code(s): M86.9 - Osteomyelitis, unspecified Qualifiers: Laterality: left Osteomyelitis location: foot Osteomyelitis type: subacute Qualified Code(s): M86.272 - Subacute osteomyelitis, left ankle and foot (9) Tobacco dependence: Code(s): F17.200 - Nicotine dependence, unspecified, uncomplicated (10) Osteomyelitis: Code(s): M86.9 - Osteomyelitis, unspecified Qualifiers: Osteomyelitis type: other chronic Osteomyelitis location: foot Laterality: left Qualified Code(s): M86.672 - Other chronic osteomyelitis, left ankle and foot Medications: Refilled omeprazole 40 mg PO DAILY 90 days 90 caps 1RF K21.00 - Gastro-esophageal reflux disease with esophagitis, without bleeding Coding Level of Care Code Est Pt Level 4 (99090) Diagnoses Anemia D64.9 Anemia type: unspecified type Pre-op examination Z01.818 Gastroesophageal reflux disease with esophagitis without hemorrhage K21.00 Esophagitis bleeding: without hemorrhage Chronic anticoagulation Z79.01 Intellectual delay F81.9 Cardiomyopathy, unspecified type I42.9 Cardiomyopathy type: unspecified Left ventricular ejection fraction of 40-49% R94.30 Subacute osteomyelitis of left foot M86.272 Laterality: left Osteomyelitis location: foot Osteomyelitis type: subacute Tobacco dependence F17.200
[2023-07-31 09:03] VITALS: BP 167/91; PULSE 75; BMI 32.1
== END 2023-07-31 09:26 | disposition home or self-care (01) ==
PROVIDERS: PCP Physician Assistant; Visit Provider Nurse Practitioner
DX: M86.672 Other chronic osteomyelitis, left ankle and foot (principal); D64.9 Anemia, unspecified; Z01.818 Encounter for other preprocedural examination; K21.00 Gastro-esophageal reflux disease with esophagitis, without bleeding; Z79.01 Long term (current) use of anticoagulants; F81.9 Developmental disorder of scholastic skills, unspecified; I42.9 Cardiomyopathy, unspecified; R94.30 Abnormal result of cardiovascular function study, unspecified; M86.272 Subacute osteomyelitis, left ankle and foot; F17.200 Nicotine dependence, unspecified, uncomplicated
CPT/HCPCS: 99214

== ENCOUNTER → 2023-07-31 08:47 | Outpatient (BNVA) | payer MEDICARE, MEDICAID, SELFPAY | PROVIDERS: PCP Physician Assistant; Visit Provider Nurse Practitioner | DX: Z01.818 Encounter for other preprocedural examination (principal); K21.00 Gastro-esophageal reflux disease with esophagitis, without bleeding; D64.9 Anemia, unspecified; F81.9 Developmental disorder of scholastic skills, unspecified; I42.9 Cardiomyopathy, unspecified; R94.30 Abnormal result of cardiovascular function study, unspecified; M86.272 Subacute osteomyelitis, left ankle and foot; F17.210 Nicotine dependence, cigarettes, uncomplicated; Z79.01 Long term (current) use of anticoagulants | CPT/HCPCS: 99212 ==

== ENCOUNTER 2023-08-16 08:43 | Inpatient (IN) | payer MEDICARE, MEDICAID, SELFPAY ==
--- NOTE | ~2023-08-16 | XR_ITS ---
EXAMINATION: XR FOOT, LEFT CLINICAL INFORMATION: Question osteomyelitis COMPARISON: Prior study April 2023 TECHNIQUE: AP, lateral, and oblique views of the left foot. 3 views FINDINGS: Postsurgical changes from prior mid tarsal amputation. Some degree of soft tissue swelling of the stump, could be cellulitis, no CT evidence of bone destruction to suggest osteomyelitis at this time. No subcutaneous emphysema. There are vascular calcifications. There is a small inferior calcaneal spur. XR/XR foot LT min 3V IMPRESSION: * Postsurgical changes from prior mid tarsal amputation. * No radiographic evidence of osteomyelitis at this time. If there is high index of suspicion, MRI could be utilized for further investigation.
--- NOTE | ~2023-08-16 | US_ITS ---
EXAMINATION: US VENOUS ULTRASOUND WITH DOPPLER LOWER EXTREMITY, LEFT CLINICAL INFORMATION: Pain resting DVT COMPARISON: None available. TECHNIQUE: Ultrasound of the deep veins is performed from the hip to the calf with compression sonography and color and pulse Doppler assessment. Spectral analysis with color-flow imaging is performed. FINDINGS: There is normal venous compression and respiratory variation and augmented flow. The visualized common femoral vein, superficial femoral vein, profunda femoral vein, popliteal vein, and the trifurcation region shows no evidence of deep venous thrombosis. There is no significant popliteal fossa cyst. Incidental finding was made of multiple large oval hypoechoic structure likely enlarged lymph nodes in the left groin the largest measure up to 4.6 x 1.9 x 2.4 cm and 3.1 x 2 x 1.8 cm uncertain etiology. If the patient's symptoms persist, followup ultrasound in 5 days 7 days might be of value to exclude proximal propagation from a non-visualized calf vein. US/US venous duplex LE IMPRESSION: * Enlarged left groin lymph nodes uncertain etiology. Uncertain etiology. Please correlate with patient's clinical history, follow-up recommended, these would be amenable for ultrasound-guided biopsy if clinically indicated. * Consider correlation with follow-up ultrasound in 5 days 7 days to exclude proximal propagation from a non-visualized calf vein. If the patient's symptoms persist, followup ultrasound in 5 days 7 days might be of value to exclude proximal propagation from a non-visualized calf vein. (Referring physician staff is being called, by physician staff assistance, to be alerted of the above critical findings and recommendations.) 08/16/2023 12:30 PM bernardo Ayon
--- NOTE | ~2023-08-16 | CT_ITS ---
EXAMINATION: CT PELVIS WITH CONTRAST CLINICAL INFORMATION: Abscess left brain COMPARISON: None available. TECHNIQUE: Helical scanning was performed with submillimeter collimation through the pelvis with the use of oral contrast and during bolus intravenous injection of 85 mL of Omnipaque 350 injected mL of Omnipaque 350 intravenous contrast. Sagittal and coronal multiplanar 2-D reconstructions were obtained. This CT examination was performed using dose optimization techniques as appropriate, variously including the following: *Automated exposure control *Adjustment of mA and/or kV according to patient size (this includes techniques or standardized protocols for targeted exams where dose is matched to indication/reason for exam; i.e. extremities or head) *Use of iterative reconstruction technique DLP: 246 mGy-cm FINDINGS: PELVIS: Included bowels are normal. There is no free air or fluid. Urinary bladder is partially distended unopacified. Mild to moderate vascular calcification. Few shotty scattered normal-size lymph nodes, no bulky adenopathy. OSSEOUS STRUCTURES: Included vertebrae are intact. Sacrum is unremarkable. Mild degenerative osteoarthritic changes of SI joints. Lymph nodes: There are multiple enlarged bulky lymph nodes in the left inguinal region and left pelvis although could be inflammatory, infection or reactive, cannot rule out neoplastic process. There is no CT evidence of localized fluid collection to suggest an abscess. Lymph nodes in the right inguinal region although slightly full that are not significantly enlarged. CT/CT pelvis w IV con IMPRESSION: * There are multiple enlarged bulky lymph nodes in the left inguinal region and left pelvis although could be inflammatory, infection or reactive, cannot rule out neoplastic process. Please correlate with patient clinical history, These would be amenable for ultrasound-guided tissue biopsy. * There is no CT evidence of localized fluid collection to suggest an abscess.
[2023-08-16 08:49] VITALS: BP 165/83; PULSE 86; RESP 18; TEMP 36.8; O2SAT 97; BMI 29.0
--- NOTE | 2023-08-16 09:21 | ED_ITS ---
HPI - General Adult General Chief complaint: Extremity Injury, Lower Stated complaint: L leg pain due to stent Time Seen by Provider: 08/16/23 09:05 Source: patient Mode of arrival: ambulatory Limitations: no limitations History of Present Illness HPI narrative: This is a 52 years old male with history of diabetes, peripheral vascular disease presented to the emergency department complaining of left lower extremity pain and pain is localized in the left groin. Denies any fever he does have some nausea he is followed wound center for chronic wound in the left foot. Onset (ago): day(s) (2) Location: lower extremity (left) Radiation: non-radiation Severity: moderate Quality: aching Pain Consistency: constant Relieving factors: none Exacerbating factors: none Associated symptoms: denies other symptoms Related Data Home Medications Medication Instructions Recorded Confirmed pen needle, diabetic 32 gauge x #50 ea 04/28/23 08/16/23 dulaglutide 1.5 mg/0.5 mL 1.5 mg subcut GRANT@0900 08/16/23 08/16/23 subcutaneous pen injector ([facility]) ferrous sulfate 325 mg (65 mg 325 mg PO DAILY 08/16/23 08/16/23 iron) tablet omeprazole 40 mg capsule,delayed 40 mg PO DAILY@0630 08/16/23 08/16/23 release Previous Rx's Medication Instructions Recorded adhesive tape 2 X 72 #12 ea 04/04/22 blood pressure monitor (Blood #1 09/18/22 Pressure Kit) amlodipine 10 mg tablet 10 mg PO DAILY #30 tabs 12/02/22 aspirin 81 mg tablet,delayed 81 mg PO DAILY #30 tabs 12/02/22 release metformin 1,000 mg tablet 1,000 mg PO BID #60 tabs 04/01/23 clopidogrel 75 mg tablet (Plavix) 75 mg PO DAILY #90 tabs 04/28/23 flash glucose scanning reader #1 ea 04/28/23 (FreeStyle Jayla 2 [place]) flash glucose sensor (FreeStyle #2 ea 04/28/23 Jayla 2 Sensor kit) pen needle, diabetic 32 gauge x #100 ea 04/28/23 (BD Ultra-Fine Karen Pen Needle) apixaban 5 mg tablet (Eliquis) 5 mg PO BID #180 tabs 05/07/23 metoprolol succinate 25 mg 25 mg PO DAILY #90 tabs 06/22/23 tablet,extended release 24 hr insulin glargine 100 unit/mL (3 30 unit (0.3 mL) subcut QAM 30 08/17/23 mL) subcutaneous pen (Lantus days #15 mL Solostar U-100 Insulin) losartan 25 mg tablet 25 mg PO DAILY #30 tabs 08/18/23 atorvastatin 40 mg tablet 40 mg PO DAILY #30 tabs 08/26/23 zolpidem 5 mg tablet (Ambien) 5 mg PO BEDTIME PRN sleep 7 days 08/26/23 #7 tabs Allergies Allergy/AdvReac Type Severity Reaction Status Date / Time No Known Allergies Allergy Verified 07/07/23 08:34 Review of Systems 2 Constitutional: Constitutional: Reports no additional constitutional complaints ENT: Reports system reviewed and no additional complaints, except as documented Cardiovascular: Cardiovascular: Reports no additional cardiovascular complaints Respiratory: Respiratory: Reports no additional respiratory complaints PMFSH Past Medical History Attestation statement: The following information was validated with the patient. Medical History Left ventricular ejection fraction of 40-49% SOB (shortness of breath) on exertion Anemia DMII (diabetes mellitus, type 2) Open wound Anemia of chronic disease Peripheral vascular disease Diabetic foot ulcer Anemia Orthostatic hypotension Gangrene of toe of left foot GERD (gastroesophageal reflux disease) History of angiography PICC (peripherally inserted central catheter) in place Bacteremia Diabetic foot ulcer PAD (peripheral artery disease) Diabetes Surgical History History of transmetatarsal amputation of left foot Amputated toe of right foot (11/05/20) Family History Family History Other Diabetes No family history of cancer Social History Social History Household Members: None Housing: Apartment Are you a primary gericare aide to a significant other at home: No Do you presently have visiting nurse or other home services: No Alcohol intake: current Alcohol intake frequency: a few times a week Alcohol type: hard liquor Comment: pt still feeling the same Patient Tobacco Use Status: Former Tobacco user Tobacco use type: Cigarette Cigarette Packs Per Day: 0.5 Cigarettes Per Day: 1 Years Smoked: 15 e-Cigarette/Vaping Use: Never Used Second Hand Smoke Exposure: No service: No Current occupational status: unemployed Cognitive needs: No Hearing needs: No Vision needs: No Physical Exam ED Vital Signs: Vital Signs - 24 hr 08/16/23 08:49 Temperature 98.2 F Pulse Rate 86 Respiratory Rate 18 Blood Pressure 165/83 H Pulse Oximetry 97 Oxygen Delivery Method Room Air BMI result Body Mass Index 29.0 Const General: cooperative Nutritional Appearance: average body habitus Orientation/consciousness: patient oriented x3 HENMT Head: Yes normal to inspection Face and sinus: Yes normal facial exam Neck Neck: Yes normal visual inspection Chest Chest palpation & inspection: normal inspection of the chest Resp Effort & Inspection: normal respiratory effort Auscultation: clear to auscultation bilaterally Cardio Jugular venous distension: no JVD Rate: regular rate Rhythm: regular rhythm GI Inspection: Yes normal to inspection Palpation (GI): Soft to palpation and nontender Skin General skin exam: no rashes or lesions noted and elasticity normal Rashes: no rashes Neuro General: patient oriented x3 Extrem Other: Patient has left midfoot amputation , he has excellent pulses by Doppler I was able to get to the dorsalis pedis and posterior tibialis. On exam he has lymphadenopathy in the left groin. General: Yes capillary refill normal Medications Administered Discontinued Medications Generic Name Dose Route Start Last Admin Trade Name Freq PRN Reason Stop Dose Admin Sodium Chloride 1,000 mls @ 999 mls/hr 08/16/23 09:15 08/16/23 11:05 Ns IVCONT 08/16/23 10:15 Infused .Q1H1M CAIT Infusion Cefepime HCl 2 gm/ Sodium 50 mls @ 100 mls/hr 08/16/23 10:10 08/16/23 11:45 Chloride IV 08/16/23 10:39 Infused ONCE ONE Infusion Vancomycin HCl 1,500 mg/ 500 mls @ 333.333 mls/hr 08/16/23 11:22 08/16/23 14:16 Sodium Chloride IV 08/16/23 12:51 Infused ONCE ONE Infusion Piperacillin Sod/Tazobactam 50 mls @ 100 mls/hr 08/16/23 14:00 08/16/23 16:00 Sod 3.375 gm/ Sodium Chloride IV Infused Q6H [facility] Infusion Insulin Human Lispro 0 unit 08/16/23 16:30 08/16/23 16:36 Insulin Lispro 100 Unit/Ml 3 Ml Vial SUBCUT 4 unit QIDACHS [facility] Administration Protocol Iohexol 85 ml 08/16/23 13:29 08/16/23 13:30 Iohexol 350 Mg/Ml 100 Ml Infus..Btl IV 08/16/23 13:30 85 ml ONCE ONE Administration Ondansetron HCl 4 mg 08/16/23 09:14 08/16/23 09:41 Ondansetron Hcl 4 Mg/2 Ml Vial IVPUSH 08/16/23 09:15 4 mg ONCE ONE Administration Sodium Chloride 3 ml 08/16/23 16:00 08/16/23 15:25 0.9 % Sodium Chloride Flush 3 Ml Syringe IVFLUSH 3 ml QSHIFT [facility] Administration Medical Decision Making Medical Decision Making [facility] Narrative: Patient presented with pain in the left lower extremity he has pulses so I do not think is an arterial problem, will get labs ultrasound the to rule out DVT and reassess Differential Diagnosis Differential Diagnoses: The differential diagnosis associated with the presentation includes Leg infection/DVT/arterial insufficiency Admission/Observation Consideration of admission/observation: Escalation of care including admission/observation considered Lab Data 08/16/23 09:28 08/16/23 09:28 Labs: Lab Results 08/16/23 Range/Units 09:28 WBC 19.2 H (4.8-10.8) X10*3/uL RBC 3.08 L (4.60-5.80) X10*6/uL Hgb 8.8 L (14.0-18.0) g/dl Hct 26.5 L (42.0-52.0) % MCV 86.0 (80.0-98.0) fL MCH 28.6 (27.0-33.0) pg MCHC 33.2 (31.0-36.0) g/dl RDW 14.3 (11.0-16.0) % Plt Count 360 (160-400) X10*3/uL MPV 9.5 (9.4-12.4) fL Immature Gran % (Auto) 0.5 H (0.0-0.4) % Neut % (Auto) 85.4 H (45-73) % Lymph % (Auto) 4.6 L (20-40) % [place] % (Auto) 8.9 (2-11) % Eos % (Auto) 0.3 (0-4) % Baso % (Auto) 0.3 (0-2) % Lymph # (Auto) 0.9 L (1.2-4.9) X10*3/uL [place] # (Auto) 1.7 H (0.1-1.2) X10*3/uL Eos # (Auto) 0.1 (0.0-0.4) X10*3/uL Baso # (Auto) 0.1 (0.0-0.2) X10*3/uL Abs Immat Gran (auto) 0.09 H (0.00-0.03) X10*3/uL Absolute Neuts (auto) 16.4 H (2.0-8.3) x10*3/uL Absolute Nucleated RBC 0.000 (0.0-0.012) X10*3/uL Nucleated RBC % (auto) 0.0 (0.0-0.2) /100WBC ESR 111 H (0-15) MM/HR Sodium 133 L (135-145) mmol/L Potassium 4.4 (3.3-5.1) mmol/L Chloride 103 (96-108) mmol/L Carbon Dioxide 20 L (22-29) mmol/L Anion Gap 14 (12-20) BUN 13 (9-16) mg/dL Creatinine 1.14 (0.5-1.4) mg/dL Estim Creat Clear Calc 77.7 Estimated GFR > 60 Random Glucose 271 H (60-115) mg/dL Lactic Acid 1.5 (0.5-2.0) mmol/L Calcium 9.5 D (8.4-10.2) mg/dL Total Bilirubin 0.8 (0.0-1.0) mg/dL AST 16 (5-37) U/L ALT 10 (0-40) U/L Alkaline Phosphatase 96 (39-117) U/L C-Reactive Protein 10.90 H (< or = 0.50) mg/dL Total Protein 7.0 (6.5-8.0) g/dL Albumin 3.2 L (3.5-5.0) g/dL Discharge Plan Discharge Clinical Impression: Diabetic infection of left foot, Inguinal adenopathy Patient Disposition: Admitted As Inpatient Interventions: Admission Worksheet (ED) Last Done: 08/16/23 14:53 Discharge Date/Time: 08/16/23 14:54
[2023-08-16 09:38] LABS: Basophils Absolute Auto 0.1 X10*3/uL (0.0-0.2); Basophils Percent Auto 0.3 % (0-2); Eosinophils Absolute Auto 0.1 X10*3/uL (0.0-0.4); Eosinophils Percent Auto 0.3 % (0-4); Hematocrit 26.5 % (42.0-52.0); Hemoglobin 8.8 g/dl (14.0-18.0); Imm Gran Abs Auto 0.09 X10*3/uL (0.00-0.03); Imm Gran Pct Auto 0.5 % (0.0-0.4); Lymphocytes Absolute Auto 0.9 X10*3/uL (1.2-4.9); Lymphocytes Percent Auto 4.6 % (20-40); Mean Corpuscular HGB Conc 33.2 g/dl (31.0-36.0); Mean Corpuscular Hemoglobin 28.6 pg (27.0-33.0); Mean Platelet Volume 9.5 fL (9.4-12.4); Monocytes Absolute Auto 1.7 X10*3/uL (0.1-1.2); Neutrophils Absolute Auto 16.4 x10*3/uL (2.0-8.3); Neutrophils Percent Auto 85.4 % (45-73); Platelet Count 360 X10*3/uL (160-400); Red Blood Count 3.08 X10*6/uL (4.60-5.80); Red Cell Distribution Width 14.3 % (11.0-16.0); SCAN SMEAR FLAG 1; White Blood Count 19.2 X10*3/uL (4.8-10.8)
[2023-08-16] MEDS: 0.9 % Sodium Chloride 1,000 ML 999 ML IVCONT (09:40)
[2023-08-16 09:41] LABS: MANUAL DIFF FLAG NO; Monocytes Percent Auto 8.9 % (2-11)
[2023-08-16] MEDS: ondansetron HCL 4 MG/2 ML VIAL IVPUSH (09:41)
[2023-08-16 09:50] LABS: Lactic Acid 1.5 mmol/L (0.5-2.0)
[2023-08-16 09:56] LABS: Alanine Aminotransferase 10 U/L (0-40); Albumin Level 3.2 g/dL (3.5-5.0); Alkaline Phosphatase 96 U/L (39-117); Anion Gap 14 (12-20); Aspartate Amino Transferase 16 U/L (5-37); Bilirubin Total 0.8 mg/dL (0.0-1.0); Blood Urea Nitrogen 13 mg/dL (9-16); Calcium 9.5 mg/dL (8.4-10.2); Carbon Dioxide 20 mmol/L (22-29); Chloride 103 mmol/L (96-108); Creatinine Clr Calc Pharmacy 77.7; Estimated Glomerular Filt Rate > 60; Glucose Random 271 mg/dL (60-115); Potassium 4.4 mmol/L (3.3-5.1); Sodium 133 mmol/L (135-145)
[2023-08-16 10:13] LABS: Erythrocyte Sedimentation Rate 111 MM/HR (0-15)
[2023-08-16] MEDS: cefEPime HCl 2 GM in 0.9 % Sodium Chloride 50 ML IV (11:05)
[2023-08-16] MEDS: vancomycin HCL 1,500 MG in 0.9 % Sodium Chloride 500 ML 333.33 MG IV (11:45)
--- NOTE | 2023-08-16 12:52 | PM.IMHP ---
History of Present Illness Date of Service: 08/16/23 Chief Complaint: N/V, left groin pain, left foot pain This is a 52 year old male with DM, CAD, HTN, HLD, DVT on Eliquis, left transmetatarsal amputation 07/04/21 with subsequent osteo at amputation site s/p IV abx who presents with left foot, left groin pain as well as N/V. patient states he has had several days of nausea and vomiting. His kids have been sick recently. He has no associated abdominal pain, fever, chills. He does report associated diarrhea over this has been present since March. He follows with GI and has colonoscopy and endoscopy scheduled in the near future. Two days ago he began having pain in his left groin as well as pain in his left foot. She has this persisted which prompted him to come to the emergency department for evaluation. In the emergency department he was noted to have leukocytosis of 19.2 as well as elevated inflammatory markers, CRP 10, ESR 111 which is elevated from previous. Patient has history of left transmetatarsal amputation with subsequent left stump osteomyelitis and has completed outpatient treatment with IV antibiotics followed by an oral course of doxycycline. He had been doing well up until this point. Plain film imaging of the left foot did not show any evidence of osteomyelitis. Patient was treated with IV antibiotics and due to concern for worsening old diabetic foot wound the decision was made to admit him to the hospital for further management. Review of Systems Review of Systems: Yes all other systems are reviewed and are negative Constitutional: Constitutional: Denies chills and Denies fever(s) Cardiovascular: Cardiovascular: Denies chest pain, Denies palpitations and Denies dyspnea Respiratory: Respiratory: Denies cough and Denies dyspnea Gastrointestinal: Gastrointestinal: Denies abdominal pain, Reports diarrhea, Reports nausea and Reports vomiting Endocrine: Endocrine: Denies palpitations [facility] Medical History Left ventricular ejection fraction of 40-49% SOB (shortness of breath) on exertion Anemia DMII (diabetes mellitus, type 2) Open wound Anemia of chronic disease Peripheral vascular disease Diabetic foot ulcer Anemia Orthostatic hypotension Gangrene of toe of left foot GERD (gastroesophageal reflux disease) History of angiography PICC (peripherally inserted central catheter) in place Bacteremia Diabetic foot ulcer PAD (peripheral artery disease) Diabetes Functional capacity: independent ambulation Family History Other Diabetes No family history of cancer Surgical History History of transmetatarsal amputation of left foot Amputated toe of right foot (11/05/20) Social History Household Members: None Housing: Apartment Are you a primary family member caretaker to a significant other at home: No Do you presently have visiting nurse or other home services: No Alcohol intake: current Alcohol intake frequency: a few times a week Alcohol type: hard liquor Patient Tobacco Use Status: Current everyday Tobacco user Tobacco use type: Cigarette Cigarette Packs Per Day: 0.5 Cigarettes Per Day: 3 Years Smoked: 15 e-Cigarette/Vaping Use: Never Used Second Hand Smoke Exposure: No Advance Directives: No Advance Directives Information Provided: No service: No Current occupational status: unemployed Cognitive needs: No Hearing needs: No Vision needs: No Meds Allergies Allergy/AdvReac Type Severity Reaction Status Date / Time No Known Allergies Allergy Verified 07/07/23 08:34 Home Medications Medication Instructions Recorded Confirmed Last Taken Type pen needle, diabetic 32 gauge x #50 ea 04/28/23 07/07/23 Unknown History omeprazole 40 mg capsule,delayed 40 mg PO DAILY@0630 08/16/23 Unknown History release Physical Exam Vital Signs and Narrative: Vital Signs: Last Vital Signs Temp 98.2 F 08/16/23 08:49 Pulse 86 08/16/23 08:49 Resp 18 08/16/23 08:49 BP 165/83 H 08/16/23 08:49 Pulse Ox 97 08/16/23 08:49 O2 Del Method Room Air 08/16/23 08:49 BMI result Body Mass Index 29.0 Const: General: cooperative, comfortable, alert and awake Nutritional Appearance: average body habitus Orientation/consciousness: patient oriented x3 Resp: Effort & Inspection: normal respiratory effort, able to speak in complete sentences, no respiratory distress and no use of accessory muscles Auscultation: clear to auscultation bilaterally Cardio: Rate: regular rate GI: Other: +BS Inspection: No distended Palpation (GI): Soft to palpation and nontender Skin: Other: see picture from ED provider; left foot currently c/d/i Neuro: General: patient oriented x3, moves all extremities and CN's II-XI intact bilaterally Extrem: Other: s/p right 4th toe amp s/p left transmetatarsal amp Results Labs 08/16/23 09:28 08/16/23 09:28 Labs: Laboratory Results - last 24 hr 08/16/23 09:28 MCV 86.0 MCH 28.6 MCHC 33.2 RDW 14.3 Plt Count 360 MPV 9.5 Immature Gran % (Auto) 0.5 H Neut % (Auto) 85.4 H Lymph % (Auto) 4.6 L [place] % (Auto) 8.9 Eos % (Auto) 0.3 Baso % (Auto) 0.3 Lymph # (Auto) 0.9 L [place] # (Auto) 1.7 H Eos # (Auto) 0.1 Baso # (Auto) 0.1 Abs Immat Gran (auto) 0.09 H Absolute Neuts (auto) 16.4 H Absolute Nucleated RBC 0.000 Nucleated RBC % (auto) 0.0 ESR 111 H Anion Gap 14 Estim Creat Clear Calc 77.7 Estimated GFR > 60 Random Glucose 271 H Lactic Acid 1.5 Calcium 9.5 D Total Bilirubin 0.8 AST 16 ALT 10 Alkaline Phosphatase 96 C-Reactive Protein 10.90 H Total Protein 7.0 Albumin 3.2 L Imaging Radiologist's Impressions: Impressions Venous Duplex 08/16/23 11:10 IMPRESSION: * Enlarged left groin lymph nodes uncertain etiology. Uncertain etiology. Please correlate with patient's clinical history, follow-up recommended, these would be amenable for ultrasound-guided biopsy if clinically indicated. * Consider correlation with follow-up ultrasound in 5 days 7 days to exclude proximal propagation from a non-visualized calf vein. If the patient's symptoms persist, followup ultrasound in 5 days 7 days might be of value to exclude proximal propagation from a non-visualized calf vein. (Referring physician staff is being called, by physician staff assistance, to be alerted of the above critical findings and recommendations.) 08/16/2023 12:30 PM a J Assessment and Plan (1) Inguinal adenopathy: Status: Acute (2) Diabetic infection of left foot: Status: Acute Plan This is a 52 year old male with DM, CAD, HTN, HLD, DVT on Eliquis, left transmetatarsal amputation 07/04/21 with subsequent osteo at amputation site s/p IV abx who presents with left foot, left groin pain as well as N/V found to have elevated inflammatory markers concerning for osteo Left diabetic foot wound with suspicion for osteomyelitis h/o transmetatarsal amp 07/04/[address] Hammer subsequent osteo to amputation site treated with 6 weeks IV abx, completed IV abx 01/18 followed by 1 month of po doxy inflammatory cross elevated compared to previous CRP 10, ESR 111 IV vanco, zosyn plain film xray of left foot - no radiographic evidence of osteo - will obtain MRI of foot Vascular surgery consult ID consult pain control left groin pain likely due to left groin lymphadenopathy pelvic CT ordered by ED, results pending but likely due to left foot infection N/V likely viral symptomatic management diarrhea chronic for several months outpatient colonoscopy planned CAD/ischemic cardiomyopathy Echo 06/20 with EF 45-50% s/p ZAC to LAD 04/07/23 IDDM: SSI, POCs, ADA diet History of DVT previously on eliquis med rec pending Chronic normocytic anemia hematocrit above transfusion threshold follows outpatient with hematology has outpatient EGD/colonoscopy scheduled in September Med rec pending at the time of admission DVT prophylaxis:? likely Eliquis, awaiting med rec code status - full code attending dr. joseph Patient will likely require two midnight stay in the hospital for IV abx and surgical evaluation and possible surgical intervention Quality Stroke Does the patient have a stroke diagnosis?: No VTE Prior VTE?: Yes VTE Risk Level:: Medical - moderate - high VTE Device Contraindication: Treatment Not Indicated VTE Drug Contraindication: N/A - Med Ordered
[2023-08-16 13:20] VITALS: BP 154/75; PULSE 98; RESP 20; O2SAT 95
[2023-08-16] MEDS: iohexoL 350 MG/ML 100 ML INFUS..BTL 85 ML IV (13:30)
--- NOTE | 2023-08-16 13:44 | PHA.PROG ---
Admission Date/Time: August 16, 2023 13:08 Indication:bone and joint Weight in k.647 kg Serum Creatinine - Last 168 Hours 08/16/23 09:28 Creatinine 1.14 Estimated CrCl and GFR - Last 168 Hours 08/16/23 09:28 Estim Creat Clear Calc 77.7 Estimated GFR > 60 Vancomycin Loading Dose: 1500 Current Vancomycin Dosing Regimen: 1000 q 12 Vancomycin Monitoring using AUC goal of 400 - 600 range with trough as surrogate marker: 551 Date and Time for next Vancomycin Level to be drawn: 08/17 @ 2100 Pharmacist Comments on Vancomycin Plan: Vancomycin dosing will take advantage of [employer] as a clinical decision support tool that uses Bayesian modeling to calculate individual patient's pharmacokinetic parameters and forecast the patient's drug concentration time course with the target goal AUC 24 range of 400 - 600 mg/L/hr.
[2023-08-16 14:48] VITALS: BP 177/85; PULSE 93; RESP 20; TEMP 37; O2SAT 95
--- NOTE | 2023-08-16 14:52 | PHA.MEDREC ---
Pharmacy Consult ? Medication Reconciliation Pharmacy has completed the medication reconciliation. Spoke to patient to confirm meds. Patient speaks georgian.
[2023-08-16] MEDS: Piperacillin Sodium/Tazobactam 3.375 GM in 0.9 % Sodium Chloride 50 ML IV (15:25)
[2023-08-16] MEDS: 0.9 % Sodium Chloride Flush 3 ML SYRINGE IVFLUSH (15:25)
[2023-08-16 16:25] LABS: Glucose, Whole Blood 222 mg/dL (60-115)
[2023-08-16 16:35] VITALS: BP 159/75; PULSE 89; O2SAT 98
[2023-08-16] MEDS: Insulin Lispro 100 UNIT/ML 3 ML VIAL SUBCUT (16:36)
--- NOTE | 2023-08-16 16:51 | PC.NURSE ---
Patient A+Ox4, arrived from ED with no complaints other than wanting a sandwich and glass of water which was provided. Patient then at 16:45 stated that I want to leave because I forgot I have a court date tomorrow. I will be back after that. This RN explained that the doctor would not be able to discharge at this time, and that he would be leaving against medical advice. Patient stated that's fine . Katarzyna DUGGAN made aware via [place] [facility], who said MD will come to see patient, however patient insisted to sign release form and leave without seeing the doctor. Release form signed and explained, patient did not have any questions, 2 witnesses signed.
== END 2023-08-16 16:45 | disposition left against medical advice (07) | DRG 566 ==
LOC: HO.ED 09:41 → HO.EDOVER 13:22 → HO.S3 13:38
PROVIDERS: Admitting Provider Physician Assistant Medical; Emergency Provider Emergency Medicine; PCP Physician Assistant; Visit Provider Physician Assistant Medical
DX: T87.44 Infection of amputation stump, left lower extremity (principal); R59.0 Localized enlarged lymph nodes; D64.9 Anemia, unspecified; I25.5 Ischemic cardiomyopathy; I25.10 Atherosclerotic heart disease of native coronary artery without angina pectoris; A08.4 Viral intestinal infection, unspecified; I10 Essential (primary) hypertension; Z86.718 Personal history of other venous thrombosis and embolism; Z87.891 Personal history of nicotine dependence; E11.51 Type 2 diabetes mellitus with diabetic peripheral angiopathy without gangrene; Z79.4 Long term (current) use of insulin; Z79.01 Long term (current) use of anticoagulants; Z79.02 Long term (current) use of antithrombotics/antiplatelets; Z79.82 Long term (current) use of aspirin; Z79.84 Long term (current) use of oral hypoglycemic drugs; Z79.899 Other long term (current) drug therapy
CPT/HCPCS: 36415; 72193; 73630; 80053; 82947; 83605; 85025; 85652; 86140; 87040; 93971; 99285; J0692; J2405; J2543; J3371; Q9967

== ENCOUNTER → 2023-08-16 13:08 | Outpatient (BNV) | payer MEDICARE, MEDICAID, SELFPAY | PROVIDERS: Admitting Provider Physician Assistant Medical; Emergency Provider Emergency Medicine; PCP Physician Assistant; Visit Provider Physician Assistant Medical | DX: E11.621 Type 2 diabetes mellitus with foot ulcer (principal); L97.529 Non-pressure chronic ulcer of other part of left foot with unspecified severity; Z89.432 Acquired absence of left foot; Z53.29 Procedure and treatment not carried out because of patient's decision for other reasons; R59.0 Localized enlarged lymph nodes | CPT/HCPCS: 99223 ==

== ENCOUNTER → 2023-10-01 08:28 | Day surgery (SDC) | payer OTHER, SELFPAY ==
[2023-09-29 11:56] VITALS: BMI 32.1
--- NOTE | 2023-09-30 10:28 | HO.ANESPROP2 ---
Documented by User: Niya Jiang NP 09/30/23 10:36 HPI - Anesthesia Eval Consult details Narrative: 52yo M for Upper Endoscopy and Colonoscopy Follows [facility] [place] cardiology. Ischemic CMP, CAD s/p stent 03/2023. Ok to hold DAPT. ? of preop transfusion by GI provider, Deborah Ramsey. Will order repeat CBC DOS. Anesthesia Pre-Procedure Meds Is the patient on any of the following meds?: Dulaglutide (Trulicity) PMFSH Active Problems Active Problems: All Active Problems (Updated 08/16/23 @ 12:32 by Unruly Cai MD) Inguinal adenopathy (Acute) Diabetic infection of left foot (Acute) Pre-op examination (Acute) Anemia (Acute) Erectile dysfunction (Acute) LVH (left ventricular hypertrophy) (Acute) Tobacco dependence (Acute) Insomnia (Acute) Diabetic foot infection (Acute) Chronic anticoagulation (Acute) Intellectual delay (Acute) Atherosclerotic cardiovascular disease (Acute) Cardiomyopathy (Acute) Encounter for screening colonoscopy (Acute) Left ventricular ejection fraction of 40-49% (Acute) SOB (shortness of breath) on exertion (Acute) Bilateral pleural effusion (Acute) Peripheral vascular disease (Acute) Hypocalcemia (Acute) DMII (diabetes mellitus, type 2) (Acute) Osteomyelitis (Acute) Nausea and vomiting (Acute) Anemia (Acute) Abdominal bloating (Acute) GERD with esophagitis (Acute) Tendinopathy of right shoulder (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 (Acute) Thrombocytosis (Acute) Osteomyelitis (Acute) Iron deficiency (Acute) Diabetic foot ulcer (Acute) Cellulitis of foot (Acute) Hypertension (Acute) Past Medical History Medical History Left ventricular ejection fraction of 40-49% SOB (shortness of breath) on exertion Anemia DMII (diabetes mellitus, type 2) Open wound Anemia of chronic disease Peripheral vascular disease Diabetic foot ulcer Anemia Orthostatic hypotension Gangrene of toe of left foot GERD (gastroesophageal reflux disease) History of angiography PICC (peripherally inserted central catheter) in place Bacteremia Diabetic foot ulcer PAD (peripheral artery disease) Diabetes Family History Family History Other Diabetes No family history of cancer Family history of problems with anesthesia: No Surgical History Surgical History History of transmetatarsal amputation of left foot Amputated toe of right foot (11/05/20) History of Problems with Anesthesia: No Social History Social History Household Members: None Housing: Apartment Are you a primary point of care technician to a significant other at home: No Do you presently have visiting nurse or other home services: No Alcohol intake: current Alcohol intake frequency: a few times a week Alcohol type: hard liquor Comment: pt still feeling the same Patient Tobacco Use Status: Current someday Tobacco user Tobacco use type: Cigarette Cigarette Packs Per Day: 0.5 Cigarettes Per Day: 1 Years Smoked: 15 e-Cigarette/Vaping Use: Never Used Second Hand Smoke Exposure: No Use of substances other than those prescribed or required for medical reasons: No Are you DNR?: No Advance Directives: No Advance Directives Information Provided: Yes service: No Current occupational status: unemployed Cognitive needs: No Hearing needs: No Vision needs: No Meds Allergies Allergy/AdvReac Type Severity Reaction Status Date / Time No Known Allergies Allergy Verified 07/07/23 08:34 Home Medications Medication Instructions Recorded Confirmed Last Taken Type pen needle, diabetic 32 gauge x #50 ea 04/28/23 08/16/23 08/15/23 History dulaglutide 1.5 mg/0.5 mL 1.5 mg subcut GRANT@0900 08/16/23 10/01/23 09/17/23 History subcutaneous pen injector (Trulicity) ferrous sulfate 325 mg (65 mg 325 mg PO DAILY 08/16/23 08/16/23 08/15/23 History iron) tablet omeprazole 40 mg capsule,delayed 40 mg PO DAILY@0630 08/16/23 08/16/23 08/15/23 History release Exam Height,Weight and Vital Signs: Height 5 ft 6 in Weight 90.265 kg Pertinent Lab Results Pertinent Lab Results: Laboratory Tests 08/16/23 09:28 WBC 19.2 H Hgb 8.8 L Hct 26.5 L Plt Count 360 Sodium 133 L Potassium 4.4 Chloride 103 Carbon Dioxide 20 L BUN 13 Creatinine 1.14 Narrative Narrative: ECHO 06/2023 Conclusions: - Mildly reduced LV ejection fraction 45-50% with underlying regional wall motion abnormality consistent with ischemic cardiomyopathy Cardiac catheterization on 04/07/2023 mid LAD 80% stenosis. ZAC was placed. Assessment and Plan Assessment Anesthesia Assessment: Chart Reviewed Final Anesthetic Review Family History of Problems with Anesthesia: No History of Problems with Anesthesia: No Documented by User: Chika De La Paz MD 10/01/23 11:04 HPI - Anesthesia Eval Consult details Narrative: 52yo M for Upper Endoscopy and Colonoscopy Follows [facility] [place] cardiology. Ischemic CMP, CAD s/p stent 03/2023. Ok to hold DAPT. Patient has been off Plavix and Eliquis since 09/20/23. ? of preop transfusion by GI provider, Deborah Ramsey. Will order repeat CBC DOS. Did not finish prep. Will need enema. Hypertensive today - BP today [id number]. H/o cocaine use- denies recent use- Will check urine toxicology screen [facility]- states last dose was 09/20/23 Anesthesia Pre-Procedure Meds If Yes to any meds - educate patient: Pt education - increased risk of aspiration PMFSH Active Problems Active Problems: All Active Problems (Updated 10/01/23 @ 09:58 by Chika De La Paz MD) Inguinal adenopathy (Acute) Diabetic infection of left foot (Acute) Pre-op examination (Acute) Anemia (Acute) Erectile dysfunction (Acute) LVH (left ventricular hypertrophy) (Acute) Tobacco dependence (Acute) Insomnia (Acute) Diabetic foot infection (Acute) Chronic anticoagulation (Acute) Intellectual delay (Acute) Atherosclerotic cardiovascular disease (Acute) Cardiomyopathy (Acute) Encounter for screening colonoscopy (Acute) Left ventricular ejection fraction of 40-49% (Acute) SOB (shortness of breath) on exertion (Acute) Bilateral pleural effusion (Acute) Peripheral vascular disease (Acute) Hypocalcemia (Acute) DMII (diabetes mellitus, type 2) (Acute) Osteomyelitis (Acute) Nausea and vomiting (Acute) Anemia (Acute) Abdominal bloating (Acute) GERD with esophagitis (Acute) Tendinopathy of right shoulder (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 (Acute) Thrombocytosis (Acute) Osteomyelitis (Acute) Iron deficiency (Acute) Diabetic foot ulcer (Acute) Cellulitis of foot (Acute) Hypertension (Acute) Nausea and vomiting- last episode a week ago Past Medical History Medical History Left ventricular ejection fraction of 40-49% SOB (shortness of breath) on exertion Anemia DMII (diabetes mellitus, type 2) Open wound Anemia of chronic disease Peripheral vascular disease Diabetic foot ulcer Anemia Orthostatic hypotension Gangrene of toe of left foot GERD (gastroesophageal reflux disease) History of angiography PICC (peripherally inserted central catheter) in place Bacteremia Diabetic foot ulcer PAD (peripheral artery disease) Diabetes Family History Family History Other Diabetes No family history of cancer Surgical History Surgical History History of transmetatarsal amputation of left foot Amputated toe of right foot (11/05/20) Social History Social History Household Members: None Housing: Apartment Are you a primary point of care technician to a significant other at home: No Do you presently have visiting nurse or other home services: No Alcohol intake: current Alcohol intake frequency: a few times a week Alcohol type: hard liquor Comment: pt still feeling the same Patient Tobacco Use Status: Current someday Tobacco user Tobacco use type: Cigarette Cigarette Packs Per Day: 0.5 Cigarettes Per Day: 1 Years Smoked: 15 e-Cigarette/Vaping Use: Never Used Second Hand Smoke Exposure: No Use of substances other than those prescribed or required for medical reasons: No Are you DNR?: No Advance Directives: No Advance Directives Information Provided: Yes service: No Current occupational status: unemployed Cognitive needs: No Hearing needs: No Vision needs: No Meds Allergies Allergy/AdvReac Type Severity Reaction Status Date / Time No Known Allergies Allergy Verified 07/07/23 08:34 Home Medications Medication Instructions Recorded Confirmed Last Taken Type pen needle, diabetic 32 gauge x #50 ea 04/28/23 08/16/23 08/15/23 History dulaglutide 1.5 mg/0.5 mL 1.5 mg subcut GRANT@0900 08/16/23 10/01/23 09/17/23 History subcutaneous pen injector (Trulicity) ferrous sulfate 325 mg (65 mg 325 mg PO DAILY 08/16/23 08/16/23 08/15/23 History iron) tablet omeprazole 40 mg capsule,delayed 40 mg PO DAILY@0630 08/16/23 08/16/23 08/15/23 History release Exam Height,Weight and Vital Signs: Height 5 ft 6 in Weight 90.265 kg Vital Signs Temp Pulse Resp BP Pulse Ox O2 Del Method 10/01/23 10:28 76 196/100 H 10/01/23 10:03 98.1 F 76 16 196/99 H 99 Room Air Pertinent Lab Results Pertinent Lab Results: Laboratory Tests 08/16/23 09:28 WBC 19.2 H Hgb 8.8 L Hct 26.5 L Plt Count 360 Sodium 133 L Potassium 4.4 Chloride 103 Carbon Dioxide 20 L BUN 13 Creatinine 1.14 Lab Results 10/01/23 10/01/23 10/01/23 Range/Units 09:35 09:50 10:16 WBC 5.7 (4.8-10.8) X10*3/uL RBC 2.72 L (4.60-5.80) X10*6/uL Hgb 7.5 L (14.0-18.0) g/dl Hct 23.9 L (42.0-52.0) % MCV 87.9 (80.0-98.0) fL MCH 27.6 (27.0-33.0) pg MCHC 31.4 (31.0-36.0) g/dl RDW 14.5 (11.0-16.0) % Plt Count 297 (160-400) X10*3/uL MPV 10.0 (9.4-12.4) fL Absolute Nucleated RBC 0.000 (0.0-0.012) X10*3/uL Nucleated RBC % (auto) 0.0 (0.0-0.2) /100WBC POC Glucose 143 H (60-115) mg/dL Urine Opiates Screen Not Detected (Not Detect) Urine Fentanyl Screen Not Detected (Not Detect) Ur Barbiturates Screen Not Detected (Not Detect) Ur Phencyclidine Scrn Not Detected (Not Detect) Ur Amphetamines Screen Not Detected (Not Detect) U Benzodiazepines Scrn Not Detected (Not Detect) Urine Cocaine Screen POSITIVE H (Not Detect) U Marijuana (THC) Screen Not Detected (Not Detect) Airway Mallampati Class: II TM Dist: >3cm Neck ROM: Full Loose/Missing/Broken Teeth: Yes (Missing teeth. Denies broken or loose teeth) Heart: RRR Lungs: CTAB Assessment and Plan Assessment Anesthesia Assessment: Anesthesia Plan Discussed Final Anesthetic Review NPO: Yes ASA Class: III Final Preanesthetic Review: No Changes in Pt Med Stat, Meds/Allgs Chart Reviewed, Consent Obtained/Reviewed and Anes Risks/Benef Reviewed Patient Risk: Intermediate Procedure Risk: Low Assessment/Block/Sedation in SS: Assess/Block/Sedation-SS Anesthetic Plan Anesthetic Plan: TIVA Disposition: Standard PACU
[2023-10-01 09:58] VITALS: BMI 30.9
[2023-10-01 10:03] VITALS: BP 196/99; PULSE 76; RESP 16; TEMP 36.7; O2SAT 99
[2023-10-01 10:28] VITALS: BP 196/100; PULSE 76
[2023-10-01 10:32] VITALS: BP 192/102; PULSE 77
--- NOTE | 2023-10-01 11:03 | PC.NURSE ---
1049-PATIENT CANCELLED DUE TO POSITIVE COCAINE IN URINE SAMPLE. WHEN PATIENT ARRIVED HE WAS EVALUATED IN THE WAITING ROOM AND STATED HE ONLY DRANK 1/2 THE PREP AND DIDNT TAKE HIS PLAVIX,TRULICITY AND ELIQUIS SINCE BEFORE 09/20. ASYMPTOMATIC FOR HTN PER PATIENT..
== END ==
PROVIDERS: PCP Physician Assistant; Visit Provider Internal Medicine Gastroenterology
DX: K21.9 Gastro-esophageal reflux disease without esophagitis (principal); D64.9 Anemia, unspecified; E11.9 Type 2 diabetes mellitus without complications; Z53.8 Procedure and treatment not carried out for other reasons; R82.5 Elevated urine levels of drugs, medicaments and biological substances; Z79.899 Other long term (current) drug therapy
CPT/HCPCS: 36415; 80307; 82947; 85027

== ENCOUNTER → 2023-10-23 12:29 | Day surgery (SDC) | payer OTHER, SELFPAY ==
--- NOTE | 2023-10-22 13:37 | HO.ANESPROP2 ---
HPI - Anesthesia Eval Consult details Narrative: Tx'd to ER with fever, weeping foot wound 52yo M for Upper Endoscopy and Colonoscopy Resched from 10/01/23 d/t pt request and + tox screen Blood transfusion 10/15/23 Follows [facility] [place]. Ischemic CMP, CAD s/p stent 03/2023. Ok to hold DAPT. From previous anesthesia preop Patient has been off Plavix and Eliquis since 09/20/23. ? of preop transfusion by GI provider, Deborah Ramsey. Will order repeat CBC DOS. Did not finish prep. Will need enema. Hypertensive today - BP today [id number]/[id number]. H/o cocaine use- denies recent use- Will check urine toxicology screen - +cocaine On Trulicity- states last dose was 09/20/23 Anesthesia Pre-Procedure Meds Is the patient on any of the following meds?: Dulaglutide (Trulicity) If Yes to any meds - educate patient: Pt education - increased risk of aspiration and Pt education - possibility of cancelled proc at provider's discretion PMFSH Active Problems Active Problems: All Active Problems (Updated 10/15/23 @ 08:27 by Corey Mayes MD) Inguinal adenopathy (Acute) Diabetic infection of left foot (Acute) Pre-op examination (Acute) Anemia (Acute) Erectile dysfunction (Acute) LVH (left ventricular hypertrophy) (Acute) Tobacco dependence (Acute) Insomnia (Acute) Diabetic foot infection (Acute) Chronic anticoagulation (Acute) Intellectual delay (Acute) Atherosclerotic cardiovascular disease (Acute) Cardiomyopathy (Acute) Encounter for screening colonoscopy (Acute) Left ventricular ejection fraction of 40-49% (Acute) SOB (shortness of breath) on exertion (Acute) Bilateral pleural effusion (Acute) Peripheral vascular disease (Acute) Hypocalcemia (Acute) DMII (diabetes mellitus, type 2) (Acute) Osteomyelitis (Acute) Nausea and vomiting (Acute) Anemia (Acute) Abdominal bloating (Acute) GERD with esophagitis (Acute) Tendinopathy of right shoulder (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 (Acute) Thrombocytosis (Acute) Osteomyelitis (Acute) Iron deficiency (Acute) Diabetic foot ulcer (Acute) Cellulitis of foot (Acute) Hypertension (Acute) Past Medical History Medical History Left ventricular ejection fraction of 40-49% SOB (shortness of breath) on exertion Anemia DMII (diabetes mellitus, type 2) Open wound Anemia of chronic disease Peripheral vascular disease Diabetic foot ulcer Anemia Orthostatic hypotension Gangrene of toe of left foot GERD (gastroesophageal reflux disease) History of angiography PICC (peripherally inserted central catheter) in place Bacteremia Diabetic foot ulcer PAD (peripheral artery disease) Diabetes Family History Family History Other Diabetes No family history of cancer Family history of problems with anesthesia: No Surgical History Surgical History History of transmetatarsal amputation of left foot Amputated toe of right foot (11/05/20) History of Problems with Anesthesia: No Social History Social History Household Members: None Housing: Apartment Are you a primary dialysis patient care technician to a significant other at home: No Do you presently have visiting nurse or other home services: No Alcohol intake: current Alcohol intake frequency: holidays/special occasions only Alcohol type: hard liquor Comment: pt still feeling the same Patient Tobacco Use Status: Former Tobacco user Tobacco use type: Cigarette Cigarette Packs Per Day: 0.5 Cigarettes Per Day: 1 Years Smoked: 15 e-Cigarette/Vaping Use: Never Used Second Hand Smoke Exposure: No service: No Current occupational status: unemployed Cognitive needs: No Hearing needs: No Vision needs: No Meds Allergies Allergy/AdvReac Type Severity Reaction Status Date / Time No Known Allergies Allergy Verified 10/23/23 13:25 Home Medications Medication Instructions Recorded Confirmed Last Taken Type pen needle, diabetic 32 gauge x #50 ea 04/28/23 10/23/23 08/15/23 History ferrous sulfate 325 mg (65 mg 325 mg PO DAILY 08/16/23 10/23/23 2 Weeks Ago History iron) tablet ~10/09/23 omeprazole 40 mg capsule,delayed 40 mg PO DAILY@0630 08/16/23 10/23/23 2 Weeks Ago History release ~10/09/23 acetaminophen 325 mg tablet 650 mg PO Q6H PRN pain 10/23/23 10/23/23 2 Weeks Ago History ~10/09/23 Assessment and Plan Assessment Anesthesia Assessment: Chart Reviewed Final Anesthetic Review Family History of Problems with Anesthesia: No History of Problems with Anesthesia: No
[2023-10-23 13:27] VITALS: BMI 30.6
[2023-10-23 13:46] LABS: Amphetamine Screen Urine Not Detected (Not Detect); Barbiturates, Urine Not Detected (Not Detect); Benzodiazepines Screen Urine Not Detected (Not Detect); Cannabinoid Screen Urine Not Detected (Not Detect); Cocaine Screen Urine Not Detected (Not Detect); Fentanyl, urine Not Detected (Not Detect); Opiate Screen Urine Not Detected (Not Detect); Phencyclidine Screen Urine Not Detected (Not Detect)
[2023-10-23 13:47] LABS: Mean Corpuscular HGB Conc 32.8 g/dl (31.0-36.0); Mean Corpuscular Volume 82.3 fL (80.0-98.0); Mean Platelet Volume 9.7 fL (9.4-12.4); Platelet Count 348 X10*3/uL (160-400); Red Blood Count 2.37 X10*6/uL (4.60-5.80); Red Cell Distribution Width 15.6 % (11.0-16.0); White Blood Count 13.6 X10*3/uL (4.8-10.8)
[2023-10-23 13:49] VITALS: BP 159/91; PULSE 100; RESP 20; TEMP 37.9; O2SAT 99
[2023-10-23 13:56] LABS: Hematocrit 19.5 % (42.0-52.0); Hemoglobin 6.4 g/dl (14.0-18.0)
--- NOTE | 2023-10-23 14:02 | PC.NURSE ---
Pt febrile 100.2 and blood sugar 344, pt color is dusky. Labs completed and H/H 6.4/19.5. Report given to Fifi in ER.
[2023-10-23 15:54] LABS: Glucose, Whole Blood 344 mg/dL (60-115)
== END ==
PROVIDERS: Nurse Practitioner; PCP Physician Assistant; Visit Provider Internal Medicine Gastroenterology
DX: K21.9 Gastro-esophageal reflux disease without esophagitis (principal); Z53.8 Procedure and treatment not carried out for other reasons; E86.0 Dehydration; E11.621 Type 2 diabetes mellitus with foot ulcer; Z79.4 Long term (current) use of insulin; F14.11 Cocaine abuse, in remission; I25.10 Atherosclerotic heart disease of native coronary artery without angina pectoris; I10 Essential (primary) hypertension; Z95.5 Presence of coronary angioplasty implant and graft; Z79.85 Long-term (current) use of injectable non-insulin antidiabetic drugs
CPT/HCPCS: 36415; 80307; 82947; 85027; J2704

== ENCOUNTER 2023-10-23 14:16 | Inpatient (IN) | payer OTHER, SELFPAY ==
[2023-10-23] VITALS (12 sets, daily range): BP systolic 103–162; BP diastolic 69–92; PULSE 78–102; RESP 12–20; TEMP 35.7–39; O2SAT 94–96; BMI 30.4; BMI 30.1
--- NOTE | ~2023-10-23 | XR_ITS ---
EXAMINATION: XR FOOT, LEFT CLINICAL INFORMATION: Rule out osteomyelitis COMPARISON: Previous x-ray most recent July 2023 TECHNIQUE: AP, lateral, and oblique views of the left foot. FINDINGS: The base of the metatarsal bones are no longer seen. This is a new finding compared to July 2023 exam. Correlation with surgical history recommended. There is indistinct margin and lucency of the medial cuneiform. Appearance is questionable for osteomyelitis. There is marked soft tissue swelling and air in the soft tissues adjacent at the amputation site. The ankle joint is normal. There is soft tissue arterial calcification. There is a small plantar calcaneal spur. XR/XR foot LT min 3V IMPRESSION: Injection interval surgical resection of the base of the metatarsal bones. Clinical correlation recommended. New indistinct margin and lucency of the medial cuneiform. Appearance is questionable for osteomyelitis. Marked soft tissue swelling and air in the soft tissues adjacent to the amputation site.
--- NOTE | ~2023-10-23 | XR_ITS ---
EXAMINATION: XR CHEST CLINICAL INFORMATION: Fever COMPARISON: Previous chest x-ray most recent August [address] April 2022 TECHNIQUE: Frontal view of the chest was obtained. FINDINGS: The cardiac and mediastinal contours are stable. There is a new round opacity at the left lung base silhouetting the left hemidiaphragm measuring 3.8 cm. Mass versus pneumonia should be considered. The lungs are otherwise clear. No pleural effusion or pneumothorax. Bony structures are unremarkable. XR/XR chest 1V IMPRESSION: New 3.8 cm round opacity at the left lung base silhouetting the left hemidiaphragm. Mass versus pneumonia should be considered.
--- NOTE | 2023-10-23 14:18 | ECG_ITS ---
Test Reason : WEAKNESS Blood Pressure : / mmHG Vent. Rate : 099 BPM Atrial Rate : 099 BPM P-R Int : 166 ms QRS Dur : 080 ms QT Int : 366 ms P-R-T Axes : 050 -22 107 degrees QTc Int : 469 ms Normal sinus rhythm Possible Left atrial enlargement T wave abnormality, consider lateral ischemia Abnormal ECG When compared with ECG of 21-MAY-2022 15:54, No significant change was found Referred By: Amara Cassidy Electronically Signed By:Kd Pichardo
[2023-10-23 14:45] LABS: MANUAL DIFF FLAG NO
[2023-10-23 14:48] LABS: Basophils Absolute Auto 0.1 X10*3/uL (0.0-0.2); Basophils Percent Auto 0.4 % (0-2); Eosinophils Absolute Auto 0.2 X10*3/uL (0.0-0.4); Eosinophils Percent Auto 1.4 % (0-4); Imm Gran Abs Auto 0.08 X10*3/uL (0.00-0.03); Imm Gran Pct Auto 0.6 % (0.0-0.4); Lymphocytes Absolute Auto 0.8 X10*3/uL (1.2-4.9); Lymphocytes Percent Auto 6.3 % (20-40); Mean Corpuscular HGB Conc 32.6 g/dl (31.0-36.0); Mean Corpuscular Hemoglobin 27.1 pg (27.0-33.0); Mean Corpuscular Volume 83.1 fL (80.0-98.0); Mean Platelet Volume 10.2 fL (9.4-12.4); Monocytes Absolute Auto 1.4 X10*3/uL (0.1-1.2); Monocytes Percent Auto 10.3 % (2-11); Neutrophils Absolute Auto 10.7 x10*3/uL (2.0-8.3); Platelet Count 366 X10*3/uL (160-400); Red Blood Count 2.25 X10*6/uL (4.60-5.80); Red Cell Distribution Width 15.6 % (11.0-16.0); White Blood Count 13.2 X10*3/uL (4.8-10.8)
--- NOTE | 2023-10-23 14:48 | ED_ITS ---
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 He notes he is walking on it. He c/o drainage, odor since debridement. He states he changes the dressing himself twice a day. He was sent from short stay prior to EGD and colonoscopy - he presented pale and with a fever and short stay surgery staff were concerned about him. He also has a very strong odor to the L foot. His hematocrit prior to colonoscopy in preop labs was 19. He notes last week he received a transfusion at [facility] as well. Dr. Beauchamp and anesthesia called down - she notes he will likely be put on the schedule next week if he is stabilized. The patient denies knowing he had a fever MD elicited complaint: fever Pertinent past history: diabetes and other (chronic L foot wound) Onset (ago): month(s) Context: recent hospitalization Exacerbating factors: nothing Relieving factors: nothing Associated symptoms: other (drainage of the foot but he states he otherwise has no complaints) Treatments prior to arrival fever: none Related Data Home Medications Medication Instructions Recorded Confirmed pen needle, diabetic 32 gauge x #50 ea 04/28/23 10/23/23 ferrous sulfate 325 mg (65 mg 325 mg PO DAILY 08/16/23 10/23/23 iron) tablet omeprazole 40 mg capsule,delayed 40 mg PO DAILY@0630 08/16/23 10/23/23 release Previous Rx's Medication Instructions Recorded adhesive tape 2 X 72 #12 ea 04/04/22 blood pressure monitor (Blood #1 ea 09/18/22 Pressure Kit) amlodipine 10 mg tablet 10 mg PO DAILY #30 tabs 12/02/22 aspirin 81 mg tablet,delayed 81 mg PO DAILY #30 tabs 12/02/22 release metformin 1,000 mg tablet 1,000 mg PO BID #60 tabs 04/01/23 clopidogrel 75 mg tablet (Plavix) 75 mg PO DAILY #90 tabs 04/28/23 flash glucose scanning reader #1 ea 04/28/23 (FreeStyle Jayla 2 [place]) flash glucose sensor (FreeStyle #2 ea 04/28/23 Jayla 2 Sensor kit) pen needle, diabetic 32 gauge x #100 ea 04/28/23 (BD Ultra-Fine Karen Pen Needle) apixaban 5 mg tablet (Eliquis) 5 mg PO BID #180 tabs 05/07/23 metoprolol succinate 25 mg 25 mg PO DAILY #90 tabs 06/22/23 tablet,extended release 24 hr insulin glargine 100 unit/mL (3 30 unit (0.3 mL) subcut QAM 30 08/17/23 mL) subcutaneous pen (Lantus days #15 mL Solostar U-100 Insulin) losartan 25 mg tablet 25 mg PO DAILY #30 tabs 08/18/23 atorvastatin 40 mg tablet 40 mg PO DAILY #30 tabs 08/26/23 zolpidem 5 mg tablet (Ambien) 5 mg PO BEDTIME PRN sleep 7 days 08/26/23 #7 tabs dulaglutide 1.5 mg/0.5 mL 1.5 mg (0.5 mL) subcut GRANT@0900 4 10/12/23 subcutaneous pen injector weeks #2 mL (Trulicity) bisacodyl 5 mg tablet,delayed 10 mg (2 x 5 mg) PO BEDTIME 2 days 10/20/23 release (Dulcolax (bisacodyl)) #4 tabs Allergies Allergy/AdvReac Type Severity Reaction Status Date / Time No Known Allergies Allergy Verified 10/23/23 13:25 Review of Systems 2 Review of Systems: Constitutional : No Fever, No Chills ENT/Mouth : No sore throat, No Rhinorrhea Eyes: No Eye Pain, No Swelling, No Redness Cardiovascular : No Chest Pain, No SOB Respiratory : No Cough, No Sputum Gastrointestinal : No Nausea, No Vomiting, No Diarrhea, No abdominal Pain Genitourinary : No Dysuria, No Hematuria Musculoskeletal : No joint pain, No Myalgias, No Joint Swelling Skin : pos Skin Lesions, positive skin rash Neuro : No Weakness, No Numbness, No Headache Psych : No Anxiety, No Depression All other systems reviewed and are negative [facility] Past Medical History Attestation statement: The following information was validated with the patient. Source: old records reviewed Medical History Left ventricular ejection fraction of 40-49% SOB (shortness of breath) on exertion Anemia DMII (diabetes mellitus, type 2) Open wound Anemia of chronic disease Peripheral vascular disease Diabetic foot ulcer Anemia Orthostatic hypotension Gangrene of toe of left foot GERD (gastroesophageal reflux disease) History of angiography PICC (peripherally inserted central catheter) in place Bacteremia Diabetic foot ulcer PAD (peripheral artery disease) Diabetes Surgical History History of transmetatarsal amputation of left foot Amputated toe of right foot (11/05/20) Family History Family History Other Diabetes No family history of cancer Social History Social History Household Members: None Housing: Apartment Are you a primary spiritual care coordinator to a significant other at home: No Do you presently have visiting nurse or other home services: No Alcohol intake: current Alcohol intake frequency: a few times a week Alcohol type: hard liquor Comment: pt still feeling the same Patient Tobacco Use Status: Never used Tobacco Tobacco use type: Cigarette Cigarette Packs Per Day: 0.5 Cigarettes Per Day: 1 Years Smoked: 15 e-Cigarette/Vaping Use: Never Used Second Hand Smoke Exposure: No service: No Current occupational status: unemployed Cognitive needs: No Hearing needs: No Vision needs: No Physical Exam 2 Vital Signs: Vital Signs: Last Vital Signs Temp 99.1 F 10/23/23 16:13 Pulse 91 10/23/23 16:13 Resp 16 10/23/23 16:13 BP 124/76 10/23/23 16:13 Pulse Ox 94 10/23/23 15:53 O2 Del Method Room Air 10/23/23 15:53 BMI result Body Mass Index 30.4 Appearance: Alert. Oriented X3. No acute distress. Looks older than stated age, looks unwell Eyes: Pupils equal, round and reactive to light. ENT: Pharynx dry MM Neck: Normal inspection. Neck supple. CVS: Normal heart rate and rhythm. Pulses normal. Respiratory: No respiratory distress. Breath sounds normal. Abdomen: Soft and nontender. Skin: Skin warm and dry. Pale skin color. Normal skin turgor. Extremities: no lower extremity edema. L foot dehisced sutures, foul odor and drainage, he denies ttp no crepitus felt see pictures below Neuro: Oriented X 3. No motor deficit. No sensory deficit. Course Course Course Narrative: patient agrees to stay he is in denial at this time about the status of his foot infection foot was treated under a Dr. Aguayo at [facility] Medications Administered Discontinued Medications Generic Name Dose Route Start Last Admin Trade Name Freq PRN Reason Stop Dose Admin Acetaminophen 975 mg 10/23/23 14:17 10/23/23 14:55 Acetaminophen 325 Mg Tablet PO 10/23/23 14:18 975 mg ONCE ONE Administration Sodium Chloride 500 mls @ 500 mls/hr 10/23/23 14:30 10/23/23 15:53 Ns IV 10/23/23 15:29 Infused .Q1H CAIT Infusion Cefepime HCl 1 gm/ Sodium 50 mls @ 100 mls/hr 10/23/23 14:17 10/23/23 15:24 Chloride IV 10/23/23 14:46 Infused ONCE ONE Infusion Vancomycin HCl 2,000 mg in 520 mls @ 250 mls/hr 10/23/23 14:17 10/23/23 15:54 Vancomycin/Ns IV 10/23/23 16:21 250 mls/hr ONCE ONE Administration Pantoprazole Sodium 40 mg 10/23/23 15:10 10/23/23 15:55 Pantoprazole Sodium 40 Mg/10 Ml Vial IVPUSH 10/23/23 15:11 40 mg ONCE ONE Administration Medical Decision Making Medical Decision Making MDM Narrative: 52 yo male with PMH of DVT was on eliquis but states hasn't taken it in many days , GERD, 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 Hammer he will need labs, cultures, based off prior wound cultures cefepime and vancomycin ordered. He is anemic but has not taken his thinner no active GIB noted - he will get colonoscopy when more stable type and screen along with 2 UPRBC ordered. IV protonix ordered Differential Diagnosis Differential Diagnoses: The differential diagnosis associated with the presentation includes osteo, cellulitis, GIB, anemia Admission/Observation Consideration of admission/observation: Escalation of care including admission/observation considered admit for further management and workup Consult Healthcare Provider Management of the patient was discussed with: Hospitalist (will admit) and Zoology Technical Officer (Dr. Hammer notified of admission) Lab Data MDM Lab Attestation statement: I reviewed the patient's lab results. 10/23/23 14:37 10/23/23 14:37 Labs: Lab Results 10/23/23 10/23/23 Range/Units 14:37 14:50 WBC 13.2 H (4.8-10.8) X10*3/uL RBC 2.25 L (4.60-5.80) X10*6/uL Hgb 6.1 L* (14.0-18.0) g/dl Hct 18.7 L* (42.0-52.0) % MCV 83.1 (80.0-98.0) fL MCH 27.1 (27.0-33.0) pg MCHC 32.6 (31.0-36.0) g/dl RDW 15.6 (11.0-16.0) % Plt Count 366 (160-400) X10*3/uL MPV 10.2 (9.4-12.4) fL Immature Gran % (Auto) 0.6 H (0.0-0.4) % Neut % (Auto) 81.0 H (45-73) % Lymph % (Auto) 6.3 L (20-40) % [place] % (Auto) 10.3 (2-11) % Eos % (Auto) 1.4 (0-4) % Baso % (Auto) 0.4 (0-2) % Lymph # (Auto) 0.8 L (1.2-4.9) X10*3/uL [place] # (Auto) 1.4 H (0.1-1.2) X10*3/uL Eos # (Auto) 0.2 (0.0-0.4) X10*3/uL Baso # (Auto) 0.1 (0.0-0.2) X10*3/uL Abs Immat Gran (auto) 0.08 H (0.00-0.03) X10*3/uL Absolute Neuts (auto) 10.7 H (2.0-8.3) x10*3/uL Absolute Nucleated RBC 0.000 (0.0-0.012) X10*3/uL Nucleated RBC % (auto) 0.0 (0.0-0.2) /100WBC PT 13.6 H (11.1-13.3) SEC INR 1.1 (0.9-1.1) Sodium 129 L (135-145) mmol/L Potassium 4.3 (3.3-5.1) mmol/L Chloride 100 (96-108) mmol/L Carbon Dioxide 20 L (22-29) mmol/L Anion Gap 13 (12-20) BUN 18 H (9-16) mg/dL Creatinine 1.30 (0.5-1.4) mg/dL Estim Creat Clear Calc 74.3 Estimated GFR 58 Random Glucose 338 H (60-115) mg/dL Lactic Acid 1.3 (0.5-2.0) mmol/L Calcium 8.8 (8.4-10.2) mg/dL Magnesium 1.7 (1.6-2.6) mg/dL Total Bilirubin 0.4 (0.0-1.0) mg/dL Direct Bilirubin 0.2 (0.0-0.5) mg/dL AST 18 (5-37) U/L ALT 12 (0-40) U/L Alkaline Phosphatase 92 (39-117) U/L Troponin I High Sens 47.3 H (<3.5-35.0) ng/L C-Reactive Protein 21.25 H (< or = 0.50) mg/dL B-Natriuretic Peptide 1665 H (<100) pg/mL Total Protein 6.7 (6.5-8.0) g/dL Albumin 2.7 L (3.5-5.0) g/dL Lipase 12 (8-78) U/L Procalcitonin 0.20 ng/mL COVID-19 (DELIA) Negative (Negative) COVID-19 Clin Com See Note Influenza Type A (TALIA) Negative (Negative) Influenza Type B (TALIA) Negative (Negative) Influenza A & B Note See Note Blood Type A Positive Antibody Screen NEGATIVE Crossmatch See Detail Independent Interpretation I performed an independent interpretation of an: EKG and Plain X-Ray Interpretation: Rate: 99 Rhythm: NSR [place]: left Normal P waves. Normal [place]. Normal QRS complex. ST T wave : inverted t waves I and aVL, no GAB, inverted V1 and V2 qTC: 469 prior studies: no sig change from prior The study has been interpreted contemporaneously by me. . Radiology Impression Discussion of test interpretation with radiology: I have reviewed the radiologist's reading. Independent Historian Clinical information obtained from an independent historian. History obtained from or confirmed by: Other (Nito ) External Record Review External record reviewed: Inpatient record Critical Care Time Critical Care Time Critical Care Time: Yes Total Critical Care Time: 60 Attestation: review of labs, packed RBCs 2 units, medical consult I attest to this time spent taking care of the patient Discharge Plan Discharge Clinical Impression: Acute febrile illness, Anemia in chronic illness, Infected surgical wound, Acute hyponatremia Patient Disposition: Admitted As Inpatient Prescriptions: No Action (DME) adhesive tape 2 X 72 tape See Rx Instructions .Route Qty: 12 0RF Rx Instructions: As directed metformin 1,000 mg tablet 1,000 mg PO BID Qty: 60 3RF (DME) FreeStyle Jayla 2 [place] Misc See Rx Instructions .Route Qty: 1 0RF Rx Instructions: for continuous use (DME) FreeStyle Jayla 2 Sensor Kit See Rx Instructions .Route Qty: 2 6RF Rx Instructions: for continuous use (DME) pen needle, diabetic 32 gauge x 5/32 needle See Rx Instructions subcut .MEDSUPPLY Qty: 50 Rx Instructions: test 4 times daily (DME) pen needle, diabetic [BD Ultra-Fine Karen Pen Needle] 32 gauge x 5/32 needle See Rx Instructions .ROUTE .MEDSUPPLY Qty: 100 5RF Rx Instructions: As directed 4 times a day Eliquis 5 mg tablet 5 mg PO BID Qty: 180 1RF Rx Instructions: supposed to be taking BID but patient takes one daily metoprolol succinate 25 mg tablet extended release 24 hr 25 mg PO DAILY Qty: 90 3RF insulin glargine [Lantus Solostar U-100 Insulin] 100 unit/mL (3 mL) insulin pen 30 unit subcut QAM 30 Days Qty: 15 3RF losartan 25 mg tablet 25 mg PO DAILY Qty: 30 0RF zolpidem [Ambien] 5 mg tablet 5 mg PO BEDTIME PRN (Reason: sleep) 7 Days Qty: 7 0RF atorvastatin 40 mg tablet 40 mg PO DAILY Qty: 30 0RF Trulicity 1.5 mg/0.5 mL pen injector 1.5 mg subcut GRANT@0900 28 Days Qty: 2 3RF bisacodyl [Dulcolax (bisacodyl)] 5 mg tablet,delayed release (DR/EC) 10 mg PO BEDTIME 2 Days Qty: 4 0RF aspirin 81 mg Tablet,Delayed Release (Dr/Ec) 81 mg PO DAILY Qty: 30 0RF amlodipine 10 mg Tablet 10 mg PO DAILY Qty: 30 0RF Protocol: Hold for SBP< HOLD for SBP < : 90 omeprazole 40 mg capsule,delayed release(DR/EC) 40 mg PO DAILY@0630 ferrous sulfate 325 mg (65 mg iron) tablet 325 mg PO DAILY (DME) blood pressure monitor [Blood Pressure Kit] Kit See Rx Instructions .Route Qty: 1 0RF Rx Instructions: As directed clopidogrel [Plavix] 75 mg tablet 75 mg PO DAILY Qty: 90 3RF
[2023-10-23 14:52] LABS: Hematocrit 18.7 % (42.0-52.0); Hemoglobin 6.1 g/dl (14.0-18.0); INTERNATIONAL NORM RATIO 1.1 (0.9-1.1); Prothrombin Time 13.6 SEC (11.1-13.3)
[2023-10-23] MEDS: cefEPime HCl 1 GM in 0.9 % Sodium Chloride 50 ML IV (14:54)
[2023-10-23] MEDS: 0.9 % Sodium Chloride 500 ML IV (14:54)
[2023-10-23] MEDS: Acetaminophen 325 MG TABLET 975 MG PO (14:55)
[2023-10-23 14:59] LABS: Lactic Acid 1.3 mmol/L (0.5-2.0)
[2023-10-23 15:07] LABS: IDNOW Serial# 9DB6401D; Influenza A Negative (Negative); Influenza B2 Negative (Negative)
[2023-10-23 15:11] LABS: COVID-19 Test Negative (Negative); IDNOW Serial# 58CA691E
[2023-10-23 15:12] LABS: Troponin-I High Sensitivity 47.3 ng/L (<3.5-35.0)
[2023-10-23 15:15] LABS: Alanine Aminotransferase 12 U/L (0-40); Albumin Level 2.7 g/dL (3.5-5.0); Alkaline Phosphatase 92 U/L (39-117); Anion Gap 13 (12-20); Aspartate Amino Transferase 18 U/L (5-37); Bilirubin Direct 0.2 mg/dL (0.0-0.5); Bilirubin Total 0.4 mg/dL (0.0-1.0); Blood Urea Nitrogen 18 mg/dL (9-16); C Reactive Protein 21.25 mg/dL (< or = 0.50); Calcium 8.8 mg/dL (8.4-10.2); Carbon Dioxide 20 mmol/L (22-29); Chloride 100 mmol/L (96-108); Creatinine Clr Calc Pharmacy 74.3; Estimated Glomerular Filt Rate 58; Glucose Random 338 mg/dL (60-115); Lipase 12 U/L (8-78); Magnesium 1.7 mg/dL (1.6-2.6); Potassium 4.3 mmol/L (3.3-5.1); Sodium 129 mmol/L (135-145); Total Protein 6.7 g/dL (6.5-8.0)
[2023-10-23 15:21] LABS: B Type Natriuretic Peptide 1665 pg/mL (<100)
[2023-10-23] MEDS: Pantoprazole Sodium 40 MG/10 ML VIAL IVPUSH (15:55)
--- NOTE | 2023-10-23 16:22 | PC.NURSE ---
coming from short stay for colonoscopy, however found to have low blood counts. also was found to have ?infected left foot s/p metatarsal amputation - foul odor noted to foot. bilateral IV's, labs obtained and sent. patient denies any pain or knowledge of having fevers at home. first round of antibiotics infused, vanco now infusing at this time. patient also receiving first unit of blood at this time, no signs/symptoms of distress or reaction noted. patient requesting food/drink at this time.
--- NOTE | 2023-10-23 16:32 | PC.NURSE ---
patient foot wrapped, patient denies any pain at site states he does have sensation
[2023-10-23 17:01] LABS: Erythrocyte Sedimentation Rate > 140 MM/HR (0-15)
--- NOTE | 2023-10-23 17:28 | PHA.MEDREC ---
Pharmacy Consult ? Medication Reconciliation Pharmacy has completed the medication reconciliation.Patient reported that he hasn't take any medication in 2 weeks. Debbie Garcia CPhT
--- NOTE | 2023-10-23 17:32 | P.HPHOSP_ITS ---
History of Present Illness Date of Service: 10/23/23 Attending physician on admission: Maggie Avalos Chief Complaint: Worsening foot infection Pt is a 52-year-old male with a PMH significant for?insulin-dependent diabetes type 2, CAD, cardiomyopathy with EF 40-45%, HTN, HLD, DVT on Eliquis, left transmetatarsal amputation 07/04/21 with subsequent osteo at amputation site who presents to the ED from short-stay prior to EGD and colonoscopy. Patient apparently presented pale, with a fever and strong foul odor coming from left foot, and short-stay surgery staff were concerned for possible infection. Labs prior to colonoscopy found H&H to be 6.4/19.5. Patient was then sent to the ED for further workup and evaluation. GI states the patient will likely be put back on the colonoscopy scheduled next week if he is stabilized. Patient himself reports he recently had debridement of his left foot wound by vascular surgery at [facility] one week prior on last Thursday. Pt was no put on antibiotics after procedure, though has noticed some pinkish discharge from the wound, mostly after walking on it. Reports minor pain in left foot with no numbness or tingling. Also states he has a long history of chronic diarrhea and vomiting for which he was to be evaluated by GI with EGD and colonoscopy today. Denies lightheadedness or dizziness, or increased fatigue. Denies hemoptysis, hematemesis, melena, hematochezia. No chest pain/pressure, palpitations. Denies shortness of breath. No fever, chills, nausea, vomiting, abdominal pain. In the ED pt was febrile up to 102.2, tachycardic up to 102, and mildly hypertensive up to 162/92. Labs were significant for increased leukocytosis of 13.6, initial H&H 6.4/19.5 with repeat 6.1/18.7, ESR>140, sodium 129, creatinine mildly elevated at 1.3, random glucose 338, initial troponin 47.3 with repeat 44.7, C-reactive protein 21.25, BNP 1665, albumin 2.7. Lactic acid WNL at 1.1. Tox screen negative. Tested negative for COVID, influenza type a and B. CXR showed new 3.8 cm round opacity in the left lung base, possibly suggestive of mass versus pneumonia. X-ray of left foot found new indistinct margin and lucency in the medial cuneiform suggestive of osteomyelitis. EKG demonstrated normal sinus rhythm with T-wave inversions in aVL, V1, and V2 but no evidence of ST elevations or depressions. Pt was treated with IVF, cefepime, vancomycin, acetaminophen, pantoprazole, and transfused 2 units of PRBCs. Pt will be admitted to the hospital for treatment and further evaluation of osteomyelitis of left foot and acute on chronic anemia. Review of Systems 2 Review of Systems: Negative except for that stated in the [facility] Medical History Left ventricular ejection fraction of 40-49% SOB (shortness of breath) on exertion Anemia DMII (diabetes mellitus, type 2) Open wound Anemia of chronic disease Peripheral vascular disease Diabetic foot ulcer Anemia Orthostatic hypotension Gangrene of toe of left foot GERD (gastroesophageal reflux disease) History of angiography PICC (peripherally inserted central catheter) in place Bacteremia Diabetic foot ulcer PAD (peripheral artery disease) Diabetes Family History Other Diabetes No family history of cancer Surgical History History of transmetatarsal amputation of left foot Amputated toe of right foot (11/05/20) Social History Household Members: None Housing: Apartment Are you a primary behavioral health care coordinator to a significant other at home: No Do you presently have visiting nurse or other home services: No Alcohol intake: current Alcohol intake frequency: a few times a week Alcohol type: hard liquor Comment: pt still feeling the same Patient Tobacco Use Status: Never used Tobacco Tobacco use type: Cigarette Cigarette Packs Per Day: 0.5 Cigarettes Per Day: 1 Years Smoked: 15 e-Cigarette/Vaping Use: Never Used Second Hand Smoke Exposure: No Use of substances other than those prescribed or required for medical reasons: No Currently Displaying Signs/Symptoms of Drug Intoxication Withdrawal: No Have you been hit, kicked, punched, or otherwise hurt by someone within the past year? If so, by whom?: No Do you feel safe in your current relationship?: No Current Relationship Is there a partner from a previous relationship who is making you feel unsafe now?: No Are you made to feel afraid or neglected: No Advance Directives: No Advance Directives Information Provided: No Do you have thoughts of harming others: None Do you have a plan to hurt others: No Plan Recently lost weight without trying: No Eating poorly because of decreased appetite: No Nutrition Risks: No Nutritional Risk service: No Current occupational status: unemployed Cognitive needs: No Hearing needs: No Vision needs: No Meds Allergies Allergy/AdvReac Type Severity Reaction Status Date / Time No Known Allergies Allergy Verified 10/23/23 13:25 Home Medications Medication Instructions Recorded Confirmed Last Taken Type pen needle, diabetic 32 gauge x #50 ea 04/28/23 10/23/23 08/15/23 History ferrous sulfate 325 mg (65 mg 325 mg PO DAILY 08/16/23 10/23/23 2 Weeks Ago History iron) tablet ~10/09/23 omeprazole 40 mg capsule,delayed 40 mg PO DAILY@0630 08/16/23 10/23/23 2 Weeks Ago History release ~10/09/23 acetaminophen 325 mg tablet 650 mg PO Q6H PRN pain 10/23/23 10/23/23 2 Weeks Ago History ~10/09/23 Physical Exam 2 Vital Signs and Narrative: Vital Signs: Last Vital Signs Temp 99.2 F 10/23/23 16:33 Pulse 91 10/23/23 16:33 Resp 14 10/23/23 16:33 BP 112/74 10/23/23 16:33 Pulse Ox 94 10/23/23 15:53 O2 Del Method Room Air 10/23/23 15:53 BMI result Body Mass Index 30.4 Constitutional: Alert, in no acute distress. Mental Status: Oriented to person, place and time. Eyes: Pupils are equal, round, and reactive to light. Ear, Nose, and Throat: Oropharynx clear, mucous membranes moist. Ears and nose without deformities. Trachea midline. Respiratory: Clear to auscultation bilaterally. No wheezing, rales, or rhonchi. Cardiovascular: S1, S2 regular. No murmurs, rubs, or gallops. Gastrointestinal: Abdomen soft, non-tender, non-distended. Normal bowel sounds. Neurologic: Cranial nerves II-XII are grossly intact bilaterally. No focal neurological deficits. Moves all extremities spontaneously. Skin: Warm, dry. Musculoskeletal: No cyanosis or clubbing. Extremities: 2+ pitting edema of left lower leg. Chronic left foot wound foul- smelling and as pictured below. Psychiatric: Normal mood and affect. Results Labs 10/24/23 07:11 10/24/23 07:11 Labs: Laboratory Results - last 24 hr 10/23/23 10/23/23 14:37 14:50 MCV 83.1 MCH 27.1 MCHC 32.6 RDW 15.6 Plt Count 366 MPV 10.2 Immature Gran % (Auto) 0.6 H Neut % (Auto) 81.0 H Lymph % (Auto) 6.3 L Wheeler % (Auto) 10.3 Eos % (Auto) 1.4 Baso % (Auto) 0.4 Lymph # (Auto) 0.8 L Wheeler # (Auto) 1.4 H Eos # (Auto) 0.2 Baso # (Auto) 0.1 Abs Immat Gran (auto) 0.08 H Absolute Neuts (auto) 10.7 H Absolute Nucleated RBC 0.000 Nucleated RBC % (auto) 0.0 ESR > 140 H PT 13.6 H INR 1.1 Anion Gap 13 Estim Creat Clear Calc 74.3 Estimated GFR 58 Random Glucose 338 H Lactic Acid 1.3 Calcium 8.8 Magnesium 1.7 Total Bilirubin 0.4 Direct Bilirubin 0.2 AST 18 ALT 12 Alkaline Phosphatase 92 C-Reactive Protein 21.25 H B-Natriuretic Peptide 1665 H Total Protein 6.7 Albumin 2.7 L Lipase 12 Procalcitonin 0.20 COVID-19 (DELIA) Negative COVID-19 Clin Com See Note Influenza Type A (TALIA) Negative Influenza Type B (TALIA) Negative Influenza A & B Note See Note Blood Type A Positive Antibody Screen NEGATIVE Crossmatch See Detail Imaging Radiologist's Impressions: Impressions Chest X-Ray 10/23/23 15:18 IMPRESSION: New 3.8 cm round opacity at the left lung base silhouetting the left hemidiaphragm. Mass versus pneumonia should be considered. Foot X-Ray 10/23/23 15:19 IMPRESSION: Injection interval surgical resection of the base of the metatarsal bones. Clinical correlation recommended. New indistinct margin and lucency of the medial cuneiform. Appearance is questionable for osteomyelitis. Marked soft tissue swelling and air in the soft tissues adjacent to the amputation site. Assessment and Plan (1) Osteomyelitis of left foot: Status: Acute (2) Acute on chronic anemia: Status: Acute Plan Pt is a 52-year-old male with a PMH significant for?insulin-dependent diabetes type 2, CAD, cardiomyopathy with EF 40-45%, HTN, HLD, DVT on Eliquis, left transmetatarsal amputation 07/04/21 with subsequent osteo at amputation site who presents to the ED from short-stay prior to EGD and colonoscopy. Pt will be admitted to the hospital for treatment and further evaluation of osteomyelitis of left foot and acute on chronic anemia. Acute on chronic anemia H&H 6.4/19.5 with repeat 6.118.7 Pt given 2 units PRBCs in ED, will give Lasix 20mg IV between units Unclear etiology: Likely anemia of chronic disease, acute GI bleed less likely Patient's denies hematemesis, hemoptysis, hematochezia, or melena Will check for fecal occult blood Will hold antiplatelets and anticoagulants GI consult Follow CBC Osteomyelitis of left foot with sepsis Diabetic foot infection s/p TMA Elevated ESR, CRP, imaging suggestive osteomyelitis Patient meets sepsis criteria: Fever, tachycardia, leukocytosis; lactic acid WNL at 1.3 Patient given IVF and started on broad-spectrum antibiotics in the ED IV antibiotics: Vanco and cefepime, started 10/23/2023 Vascular surgery consult ID consult Follow cultures Hypoalbuminemia Patient's albumin 2.7 at time of presentation Will treat with albumin 25 g x2 doses Hyponatremia, mild Sodium 129 at time of presentation Patient given IVF in ED Follow BMP Insulin-dependent diabetes type 2, poorly controlled Patient presents with hyperglycemia in the 300s Hold metformin, Trulicity Sliding-scale insulin, Lantus Diabetic diet Cardiomegaly with EF of 40-45% BNP elevated at 1665, patient with left lower leg edema Will treat with Lasix 20 mg IV Elevated troponins Initial troponin 47.3 with repeat 44.7 Patient asymptomatic without chest pain or pressure, EKG without ischemic changes Likely type 2 in the setting of increased demand Monitor on telemetry Abnormal CXR CXR showed new 3.8 cm round opacity in the left lung base, suggestive of possible mass versus pneumonia Patient without respiratory complaints Being covered with antibiotics as above Follow-up outpatient with repeat CXR for resolution or for additional workup GERD Being covered with Protonix HTN Continue amlodipine and metoprolol as BP allows CAD/HLD/PAD Hold aspirin and Plavix d/t anemia Continue statin Hx of DVT Hold Eliquis d/t anemia Full Code Attending:?Dr. Avalos DVT Prophylaxis: Pneumatic boots Pt will require a hospitalization of at least two nights for treatment of?acute on chronic anemia and osteomyelitis of left foot with sepsis. Patient require IV antibiotics, specialist consultation, and transfusion with PRBCs and close monitoring of labs. Quality Stroke Does the patient have a stroke diagnosis?: No VTE Prior VTE?: No VTE Risk Level:: Medical - moderate - high VTE Device Contraindication: N/A - Device Ordered VTE Drug Contraindication: Treatment Not Indicated
[2023-10-23] MEDS: Furosemide 20 MG/2 ML VIAL IVPUSH (18:44)
--- NOTE | 2023-10-23 18:45 | PC.NURSE ---
ambulated to bathroom independently using walker
--- NOTE | 2023-10-23 19:33 | PHA.PROG ---
Admission Date/Time: October 23, 2023 18:55 Indication: bone and joint Weight in k.6 kg Adjusted body weight in K.8 kg [place] body weight in K.4 Obesity Dosing Indication % IBW: 132% Serum Creatinine - Last 168 Hours 10/23/23 14:37 Creatinine 1.30 Estimated CrCl and GFR - Last 168 Hours 10/23/23 14:37 Estim Creat Clear Calc 74.3 Estimated GFR 58 Vancomycin Loading Dose: 2000 mg Current Vancomycin Dosing Regimen: 1000 mg Q12H Date and Time for next Vancomycin Level to be drawn: Pharmacist Comments on Vancomycin Plan: Patient received an adequate load dose in the ER 10/13 @ 1554 Maintenance dose vancomycin 1000 mg Q12H is scheduled to start 10/24 @ 0400. Expected AUC 564 with a trough of 18.8. Level will be drawn prior to 3rd to dose while pharmacy is in house to assess for safety and efficacy Pharmacy will monitor renal function daily. Betzaida Clemons PharmD Vancomycin dosing will take advantage of [employer] as a clinical decision support tool that uses Bayesian modeling to calculate individual patient's pharmacokinetic parameters and forecast the patient's drug concentration time course with the target goal AUC 24 range of 400 - 600 mg/L/hr.
[2023-10-23 20:39] LABS: Troponin-I High Sensitivity 44.7 ng/L (<3.5-35.0)
--- NOTE | 2023-10-23 21:39 | PC.NURSE ---
Addendum entered by Adelaide Rice RN 10/23/23 21:45: gave 10 units after talking to provider again Original Note: MESSAGED PROVIDER ABOUT POC 351, HE WOULD LIKE AN ADDITIONAL 5 UNITS OF INSULIN GIVEN AND WILL PUT IN ORDER VERBAL ORDER TAKEN VIA TIGER MESSAGE. Pt will recieve 15 units total
[2023-10-23] MEDS: Insulin Lispro 100 UNIT/ML 3 ML VIAL SUBCUT (21:42)
--- NOTE | 2023-10-23 21:47 | PC.NURSE ---
provider at bedside would like the 10 units only and then rechceck in one hour. Wasted the 5 units pulled
[2023-10-23 22:35] LABS: Glucose, Whole Blood 351 mg/dL (60-115)
[2023-10-23 23:17] LABS: OBS1 NEGATIVE (NEGATIVE)
[2023-10-23 23:18] LABS: OBS Int Ctl Valid YES
[2023-10-23 23:20] LABS: Glucose, Whole Blood 307 mg/dL (60-115)
[2023-10-24] VITALS (9 sets, daily range): BP systolic 122–185; BP diastolic 69–94; PULSE 83–92; RESP 16–20; TEMP 36–37.7; O2SAT 94–99
[2023-10-24] MEDS: cefEPime HCl 2 GM in 0.9 % Sodium Chloride 50 ML IV ×4 (00:05→23:22)
[2023-10-24] MEDS: Albumin Human 25 % 100 ML IV ×2 (00:09→02:57)
[2023-10-24] MEDS: 0.9 % Sodium Chloride Flush 3 ML SYRINGE IVFLUSH ×4 (00:13→20:58)
[2023-10-24] MEDS: vancomycin HCL 1,000 MG in 0.9 % Sodium Chloride 250 ML 270 MG IV (05:34)
[2023-10-24] MEDS: Pantoprazole Sodium 40 MG/10 ML VIAL IVPUSH (05:38)
[2023-10-24 06:51] LABS: Appearance Urine Clear; Color Urine Dark Yellow; Glucose Urine UA 500 mg/dL (Negative); Leukocyte Esterase Urine Negative (Negative); Nitrite Urine Negative (Negative); PH 5.5 (5.0-9.0); UMIC TRIGGER UACC YES; Urine Blood Small (1+) (Negative); Urine Ketones Trace mg/dL (Negative); Urine Protein 300 (3+) mg/dL (Neg-Trace)
[2023-10-24 06:56] LABS: Bacteria Urine None Seen (None Seen); Squamous Epithelial Cell Urine 0-2 /HPF (0-2); WBC Urine 0-5 /HPF (0-5)
[2023-10-24 07:35] LABS: Hematocrit 21.1 % (42.0-52.0); Mean Corpuscular HGB Conc 32.7 g/dl (31.0-36.0); Mean Corpuscular Hemoglobin 27.3 pg (27.0-33.0); Mean Corpuscular Volume 83.4 fL (80.0-98.0); Platelet Count 330 X10*3/uL (160-400); Red Blood Count 2.53 X10*6/uL (4.60-5.80); Red Cell Distribution Width 15.5 % (11.0-16.0); White Blood Count 9.7 X10*3/uL (4.8-10.8)
[2023-10-24 07:46] LABS: Hemoglobin 6.9 g/dl (14.0-18.0)
[2023-10-24 07:47] LABS: Glucose, Whole Blood 258 mg/dL (60-115)
[2023-10-24 08:01] LABS: Anion Gap 15 (12-20); Blood Urea Nitrogen 17 mg/dL (9-16); Calcium 8.9 mg/dL (8.4-10.2); Carbon Dioxide 19 mmol/L (22-29); Chloride 103 mmol/L (96-108); Estimated Glomerular Filt Rate 58; Glucose Random 261 mg/dL (60-115); Sodium 133 mmol/L (135-145)
[2023-10-24 08:07] LABS: Estimated Average Glucose 189 mg/dL; Hemoglobin A1c % 8.2 % (<6.0)
[2023-10-24] MEDS: Atorvastatin Calcium 40 MG TABLET PO (08:08)
[2023-10-24] MEDS: Ferrous Sulfate 324 MG TABLET.DR PO (08:08)
[2023-10-24] MEDS: amLODIPine Besylate 10 MG TABLET PO (08:08)
[2023-10-24] MEDS: Insulin Lispro 100 UNIT/ML 3 ML VIAL SUBCUT ×4 (08:09→20:55)
[2023-10-24] MEDS: Metoprolol Succinate ER 25 MG TAB.ER.24H PO (08:09)
[2023-10-24] MEDS: Insulin Glargine,Hum.rec.anlog 100 UNIT/ML 10 ML VIAL 21 UNIT SUBCUT (08:09)
[2023-10-24] MEDS: Furosemide 20 MG/2 ML VIAL IVPUSH (08:32)
--- NOTE | 2023-10-24 09:35 | P.PNIM_ITS ---
Subjective Subjective Date of Service: 10/24/23 Interval History: seen and examined this morning follow up for anemia, foot infection patient denies rectal bleeding, hematuria or hematemesis denies fever or chills Review of Systems Review of Systems: Yes all other systems are reviewed and are negative Constitutional Constitutional: Denies chills and Denies fever(s) Cardiovascular Cardiovascular: Denies chest pain, Denies palpitations and Denies dyspnea Respiratory Respiratory: Denies cough and Denies dyspnea Gastrointestinal Gastrointestinal: Denies abdominal pain, Denies nausea and Denies vomiting Endocrine Endocrine: Denies palpitations Physical Exam 2 Vital Signs: Vital Signs: Last Vital Signs Temp 98.8 F 10/24/23 07:51 Pulse 85 10/24/23 07:51 Resp 18 10/24/23 07:51 BP 172/85 H 10/24/23 07:51 Pulse Ox 99 10/24/23 07:51 O2 Del Method Room Air 10/24/23 07:51 BMI result Body Mass Index 30.1 Const: General: comfortable and no acute distress; No alert or awake Resp: Effort & Inspection: normal respiratory effort, able to speak in complete sentences, no respiratory distress and no use of accessory muscles Cardio: Rate: regular rate GI: Inspection: No distended Palpation (GI): Soft to palpation and nontender Skin: Other: left stump with foul smelling drainage Neuro: General: moves all extremities and CN's II-XI intact bilaterally Objective Data Active Medications Acetaminophen (Acetaminophen 325 Mg Tablet) 650 mg PO Q6H PRN PRN Reason: Pain, Mild (Pain Scale 1-3) Amlodipine Besylate (Amlodipine Besylate 10 Mg Tablet) 10 mg PO DAILY [facility]; Protocol Last Admin: 10/24/23 08:08 Dose: 10 mg Documented By: MARIO ALBERTO Atorvastatin Calcium (Atorvastatin Calcium 40 Mg Tablet) 40 mg PO DAILY [facility] Last Admin: 10/24/23 08:08 Dose: 40 mg Documented By: MARIO ALBERTO Benzonatate (Benzonatate 100 Mg Capsule) 100 mg PO TID PRN PRN Reason: Cough Bisacodyl (Bisacodyl 5 Mg Tablet.) 10 mg PO BEDTIME [facility] Last Admin: 10/23/23 21:35 Dose: Not Given Documented By: CURT Non-Admin Reason: Patient Refused Dextrose (Dextrose 50 % 25 Gm/50 Ml Syringe) 25 gm IVPUSH Q15M PRN; Protocol PRN Reason: per Hypoglycemia Standing Ord. Ferrous Sulfate (Ferrous Sulfate 324 Mg Tablet.Dr) 324 mg PO DAILY [facility] Last Admin: 10/24/23 08:08 Dose: 324 mg Documented By: MARIO ALBERTO Furosemide (Furosemide 20 Mg/2 Ml Vial) 20 mg IVPUSH DAILY [facility]; Protocol Last Admin: 10/24/23 08:32 Dose: 20 mg Documented By: MARIO ALBERTO Glucose (Glucose Gel 15 Gm Gel..Gram.) 15 gm PO Q15M PRN; Protocol PRN Reason: per Hypoglycemia Standing Ord. Cefepime HCl 2 gm/ Sodium (Chloride) 50 mls @ 100 mls/hr IV Q8H [facility] Last Infusion: 10/24/23 07:25 Dose: Infused Documented By: MARIO ALBERTO Vancomycin HCl 1,000 mg/ (Sodium Chloride) 270 mls @ 270 mls/hr IV Q12H [facility] Last Infusion: 10/24/23 06:40 Dose: Infused Documented By: DOMONIQUE Sodium Chloride (Ns) 100 mls @ 100 mls/hr IV ONCE ONE Stop: 10/24/23 09:43 Insulin Glargine (Insulin Glargine,Hum.Rec.Anlog 100 Unit/Ml 10 Ml Vial) 21 unit SUBCUT DAILY [facility] Last Admin: 10/24/23 08:09 Dose: 21 unit Documented By: MARIO ALBERTO Insulin Human Lispro (Insulin Lispro 100 Unit/Ml 3 Ml Vial) 0 unit SUBCUT QIDACHS [facility]; Protocol Last Admin: 10/24/23 08:09 Dose: 6 unit Documented By: MARIO ALBERTO Metoprolol Succinate (Metoprolol Succinate Er 25 Mg Tab.Er.24h) 25 mg PO DAILY [facility]; Protocol Last Admin: 10/24/23 08:09 Dose: 25 mg Documented By: MARIO ALBERTO Ondansetron HCl (Ondansetron Hcl 4 Mg/2 Ml Vial) 4 mg IVPUSH Q8H PRN PRN Reason: Nausea and Vomiting Pantoprazole Sodium (Pantoprazole Sodium 40 Mg/10 Ml Vial) 40 mg IVPUSH DAILY@0630 [facility] Last Admin: 10/24/23 05:38 Dose: 40 mg Documented By: DOMONIQUE Pharmacy Consult (Consult Rx Vancomycin Dosing) 1 each MISCELLANE DAILY PRN PRN Reason: Consult order Sodium Chloride (0.9 % Sodium Chloride Flush 3 Ml Syringe) 3 ml IVFLUSH QSHIFT [facility] Last Admin: 10/24/23 08:10 Dose: 3 ml Documented By: MARIO ALBERTO Zolpidem Tartrate (Zolpidem Tartrate 5 Mg Tablet) 5 mg PO BEDTIME PRN PRN Reason: sleep Labs 10/24/23 07:11 10/24/23 07:11 Labs: Laboratory Results - last 24 hr 10/23/23 10/23/23 10/23/23 14:37 14:50 21:31 MCV 83.1 MCH 27.1 MCHC 32.6 RDW 15.6 Plt Count 366 MPV 10.2 Immature Gran % (Auto) 0.6 H Neut % (Auto) 81.0 H Lymph % (Auto) 6.3 L [place] % (Auto) 10.3 Eos % (Auto) 1.4 Baso % (Auto) 0.4 Lymph # (Auto) 0.8 L [place] # (Auto) 1.4 H Eos # (Auto) 0.2 Baso # (Auto) 0.1 Abs Immat Gran (auto) 0.08 H Absolute Neuts (auto) 10.7 H Absolute Nucleated RBC 0.000 Nucleated RBC % (auto) 0.0 ESR > 140 H PT 13.6 H INR 1.1 Anion Gap 13 Estim Creat Clear Calc 74.3 Estimated GFR 58 POC Glucose 351 H* Random Glucose 338 H Estimat Average Glucose Hemoglobin A1c % Lactic Acid 1.3 Calcium 8.8 Magnesium 1.7 Total Bilirubin 0.4 Direct Bilirubin 0.2 AST 18 ALT 12 Alkaline Phosphatase 92 C-Reactive Protein 21.25 H B-Natriuretic Peptide 1665 H Total Protein 6.7 Albumin 2.7 L Lipase 12 Procalcitonin 0.20 Urine Color Urine Appearance Urine pH Ur Specific [place] Urine Protein Urine Glucose (UA) Urine Ketones Urine Blood Urine Nitrite Ur Leukocyte Esterase Urine RBC Urine WBC Ur Squamous Epith Cells Urine Bacteria Hyaline Casts Stool Occult Blood COVID-19 (DELIA) Negative COVID-19 Clin Com See Note Influenza Type A (TALIA) Negative Influenza Type B (TALIA) Negative Influenza A & B Note See Note Blood Type A Positive Antibody Screen NEGATIVE Crossmatch See Detail 10/23/23 10/23/23 10/24/23 23:00 23:16 06:16 MCV MCH MCHC RDW Plt Count MPV Immature Gran % (Auto) Neut % (Auto) Lymph % (Auto) [place] % (Auto) Eos % (Auto) Baso % (Auto) Lymph # (Auto) [place] # (Auto) Eos # (Auto) Baso # (Auto) Abs Immat Gran (auto) Absolute Neuts (auto) Absolute Nucleated RBC Nucleated RBC % (auto) ESR PT INR Anion Gap Estim Creat Clear Calc Estimated GFR POC Glucose 307 H Random Glucose Estimat Average Glucose Hemoglobin A1c % Lactic Acid Calcium Magnesium Total Bilirubin Direct Bilirubin AST ALT Alkaline Phosphatase C-Reactive Protein B-Natriuretic Peptide Total Protein Albumin Lipase Procalcitonin Urine Color Dark Yellow Urine Appearance Clear Urine pH 5.5 Ur Specific [place] 1.020 Urine Protein 300 (3+) H Urine Glucose (UA) 500 H Urine Ketones Trace Urine Blood Small (1+) H Urine Nitrite Negative Ur Leukocyte Esterase Negative Urine RBC 6-10 H Urine WBC 0-5 Ur Squamous Epith Cells 0-2 Urine Bacteria None Seen Hyaline Casts 3-5 Stool Occult Blood NEGATIVE COVID-19 (DELIA) COVID-19 Clin Com Influenza Type A (TALIA) Influenza Type B (TALIA) Influenza A & B Note Blood Type Antibody Screen Crossmatch 10/24/23 10/24/23 07:11 07:41 MCV 83.4 MCH 27.3 MCHC 32.7 RDW 15.5 Plt Count 330 MPV 10.0 Immature Gran % (Auto) Neut % (Auto) Lymph % (Auto) [place] % (Auto) Eos % (Auto) Baso % (Auto) Lymph # (Auto) [place] # (Auto) Eos # (Auto) Baso # (Auto) Abs Immat Gran (auto) Absolute Neuts (auto) Absolute Nucleated RBC 0.000 Nucleated RBC % (auto) 0.0 ESR PT INR Anion Gap 15 Estim Creat Clear Calc 74.0 Estimated GFR 58 POC Glucose 258 H Random Glucose 261 H Estimat Average Glucose 189 Hemoglobin A1c % 8.2 H Lactic Acid Calcium 8.9 Magnesium Total Bilirubin Direct Bilirubin AST ALT Alkaline Phosphatase C-Reactive Protein B-Natriuretic Peptide Total Protein Albumin Lipase Procalcitonin Urine Color Urine Appearance Urine pH Ur Specific [place] Urine Protein Urine Glucose (UA) Urine Ketones Urine Blood Urine Nitrite Ur Leukocyte Esterase Urine RBC Urine WBC Ur Squamous Epith Cells Urine Bacteria Hyaline Casts Stool Occult Blood COVID-19 (DELIA) COVID-19 Clin Com Influenza Type A (TALIA) Influenza Type B (TALIA) Influenza A & B Note Blood Type Antibody Screen Crossmatch Assessment and Plan (1) Acute on chronic anemia: Status: Acute (2) Osteomyelitis of left foot: Status: Acute Plan This is a 52-year-old male with a PMH significant for?insulin-dependent diabetes type 2, CAD s/p stent, cardiomyopathy with EF 40-45%, HTN, HLD, DVT on Eliquis, left transmetatarsal amputation 07/04/21 with subsequent osteo at amputation site s/p IV abx and recent surgery at [facility] who was sent to the ED from short-stay surgery (where he was scheduled for EGD and colonoscopy) for fever and foul smelling drainage from left amputation site Acute on chronic normocytic anemia H&H still low at 6.9/21.1 s/p 2 units PRBCs 10/23, will transfuse addition unit today 10/24 no evidence of acute blood loss. heme negative. has been following with hematology for anemia and was planned for EGD/colonoscopy will hold antiplatelets and anticoagulants GI consult pending Follow CBC Osteomyelitis of left foot with sepsis Diabetic foot infection s/p TMA Elevated ESR, CRP, imaging suggestive of osteomyelitis patient follows with wound clinic - last visit 09/25 reported to have chronic drainage IV antibiotics: Vanco and cefepime, started 10/23/2023 Vascular surgery consult pending ID consult pending Follow cultures Insulin-dependent diabetes type 2, poorly controlled Patient presents with hyperglycemia in the 300s Hold metformin, Trulicity Sliding-scale insulin Lantus (currently lower dose then baseline) follow insulin needs and titrate as needed Diabetic diet Cardiomegaly with EF of 40-45% BNP elevated at 1665, patient with left lower leg edema Will treat with Lasix 20 mg IV Elevated troponins Initial troponin 47.3 with repeat 44.7 Patient asymptomatic without chest pain or pressure, EKG without ischemic changes Likely type 2 in the setting of increased demand Monitor on telemetry CAD s/p ZAC to LAD 03/2023 hold plavix for now, resume as soon as able was not on aspirin as per previous cardiology notes ? started by vascular Abnormal CXR CXR showed new 3.8 cm round opacity in the left lung base, suggestive of possible mass versus pneumonia Patient without respiratory complaints Being covered with antibiotics as above Follow-up outpatient with repeat CXR for resolution or for additional workup pseudo Hyponatremia due to hyperglycemia GERD Being covered with Protonix HTN Continue amlodipine and metoprolol HLD/PAD Hold aspirin and Plavix d/t anemia Continue statin Hx of DVT Hold Eliquis d/t anemia Full Code DVT Prophylaxis: Pneumatic boots Pt will require a hospitalization of at least two nights for treatment of?acute on chronic anemia and osteomyelitis of left foot with sepsis. Patient require IV antibiotics, specialist consultation, and transfusion with PRBCs and close monitoring of labs. Quality Stroke Does the patient have a stroke diagnosis?: No VTE Prior VTE?: No VTE Risk Level:: Medical - moderate - high VTE Device Contraindication: N/A - Device Ordered VTE Drug Contraindication: Treatment Not Indicated
--- NOTE | 2023-10-24 11:18 | P.CNGI_ITS ---
History of Present Illness Data of Consult Service Date: 10/24/23 Requesting physician: Consuelo Pate Primary Care Provider: Fredy Adair PA-C [facility] Reason for consult: Acute on chronic anemia 52 ym with IDDM type 2, CAD, cardiomyopathy with EF 40-45%, HTN, HLD, DVT on Eliquis, left transmetatarsal amputation 07/04/21 with subsequent osteo at amputation site seen at [facility] ED from short-stay on 10/23/23 with fever, strong foul odor coming from left foot and worsening anemia. Pt was scehduled for an EGD and Colon for evaluation of anemia and chronic diarrhea. On arrival at [facility], pt appeared pale, had a fever and a foul odor from the left foot. Labs prior to colonoscopy found H&H to be 6.4/19.5 (decreased from 7.9 & 25.4 on 10/15/23). Endoscopic procedures were cancelled and patient was sent to the ED for further workup and evaluation. Patient reported he recently had debridement of his left foot wound by vascular surgery at [facility] on 10/09/23. No antibiotics were prescribed after procedure. Pt has noted some pinkish discharge from the wound with minor pain in left foot after walking on it. Pt denies abdominal pain, heartburn or dysphagia or recent change in his appetite. He complains of chronic diarrhea since summer consisting of 1-2 loose to watery stools during the day and 2-3 BMs at night He denies noticing any blood or mucous in his stools. Diarrhea is associated with intake of greasy foods. Pt admits to a hx of sleep apnea. He denies smoking or ETOH or marijuana use. Patient admits to using cocaine during the holidays - last 3 weeks ago and denies IVDA, . He admits to gaining 10 lbs. Pt complains of chronic diarrhea and vomiting for the past several weeks. He denied worsening fatigue or feeling lightheaded or dizzy. Pt denied hemoptysis, hematemesis, melena, hematochezia, chest pain/pressure, palpitations, shortness of breath. Family history negative for colon polyps or colon cancer. In the ED pt was febrile up to 102.2, tachycardic up to 102, and mildly hypertensive up to 162/92. Labs showed increased leukocytosis of 13.6, initial H&H 6.4/19.5 with repeat 6.1/18.7, ESR>140, sodium 129, creatinine mildly elevated at 1.3, random glucose 338, Initial troponin 47.3 with repeat 44.7, C-reactive protein 21.25, BNP 1665, albumin 2.7. Lactic acid WNL at 1.1. Tox screen negative. Tested negative for COVID, influenza type a and B. CXR showed new 3.8 cm round opacity in the left lung base, possibly suggestive of mass versus pneumonia. X-ray of left foot found new indistinct margin and lucency in the medial cuneiform suggestive of osteomyelitis. EKG demonstrated normal sinus rhythm with T-wave inversions in aVL, V1, and V2 but no evidence of ST elevations or depressions. Pt was treated with IVF, cefepime, vancomycin, acetaminophen, pantoprazole, and transfused 1 unit of PRBCs. He was admitted for treatment of osteomyelitis of left foot and acute on chronic anemia Repeat labs today showed H & H of 6.9 & 21.1 post transfusion. 2nd unit is being transfused this am PAST GI HISTORY BY REVIEW OF MEDICAL RECORDS: Pt has been followed by Deborah Ramsey NP since 11/2021 for GERD, belching and microcytic hypochromic anemia with increased RDW and platelet count in the past. Stool occult blood x 3 have been negative Pt has been managed with intermittent blood transfusions Iron studies initially showed anemia of chronic disease and more recently BRIA with Ferritin of 17 in Sep, 2023 Erythropoietin level was elevated at 34 in the past. Review of Systems 2 Review of Systems: Negative except for that stated in the [facility] Past Medical History Medical History Left ventricular ejection fraction of 40-49% SOB (shortness of breath) on exertion Anemia DMII (diabetes mellitus, type 2) Open wound Anemia of chronic disease Peripheral vascular disease Diabetic foot ulcer Anemia Orthostatic hypotension Gangrene of toe of left foot GERD (gastroesophageal reflux disease) History of angiography PICC (peripherally inserted central catheter) in place Bacteremia Diabetic foot ulcer PAD (peripheral artery disease) Diabetes Family History Family History Other Diabetes No family history of cancer Surgical History Surgical History History of transmetatarsal amputation of left foot Amputated toe of right foot (11/05/20) Social History Social History Household Members: None Housing: Apartment Are you a primary certified caregiver to a significant other at home: No Do you presently have visiting nurse or other home services: No Alcohol intake: current Alcohol intake frequency: holidays/special occasions only Alcohol type: hard liquor Comment: pt still feeling the same Patient Tobacco Use Status: Former Tobacco user Tobacco use type: Cigarette Cigarette Packs Per Day: 0.5 Cigarettes Per Day: 1 Years Smoked: 15 e-Cigarette/Vaping Use: Never Used Second Hand Smoke Exposure: No service: No Current occupational status: unemployed Cognitive needs: No Hearing needs: No Vision needs: No Meds Allergies Allergy/AdvReac Type Severity Reaction Status Date / Time No Known Allergies Allergy Verified 10/23/23 13:25 Active Medications: Current Medications Acetaminophen (Acetaminophen 325 Mg Tablet) 650 mg PO Q6H PRN PRN Reason: Pain, Mild (Pain Scale 1-3) Amlodipine Besylate (Amlodipine Besylate 10 Mg Tablet) 10 mg PO DAILY [facility]; Protocol Last Admin: 10/24/23 08:08 Dose: 10 mg Atorvastatin Calcium (Atorvastatin Calcium 40 Mg Tablet) 40 mg PO DAILY [facility] Last Admin: 10/24/23 08:08 Dose: 40 mg Benzonatate (Benzonatate 100 Mg Capsule) 100 mg PO TID PRN PRN Reason: Cough Bisacodyl (Bisacodyl 5 Mg Tablet.) 10 mg PO BEDTIME [facility] Last Admin: 10/23/23 21:35 Dose: Not Given Dextrose (Dextrose 50 % 25 Gm/50 Ml Syringe) 25 gm IVPUSH Q15M PRN; Protocol PRN Reason: per Hypoglycemia Standing Ord. Ferrous Sulfate (Ferrous Sulfate 324 Mg Tablet.) 324 mg PO DAILY [facility] Last Admin: 10/24/23 08:08 Dose: 324 mg Furosemide (Furosemide 20 Mg/2 Ml Vial) 20 mg IVPUSH DAILY [facility]; Protocol Last Admin: 10/24/23 08:32 Dose: 20 mg Glucose (Glucose Gel 15 Gm Gel..Gram.) 15 gm PO Q15M PRN; Protocol PRN Reason: per Hypoglycemia Standing Ord. Cefepime HCl 2 gm/ Sodium (Chloride) 50 mls @ 100 mls/hr IV Q8H [facility] Last Infusion: 10/24/23 07:25 Dose: Infused Vancomycin HCl 1,000 mg/ (Sodium Chloride) 270 mls @ 270 mls/hr IV Q12H [facility] Last Infusion: 10/24/23 06:40 Dose: Infused Insulin Glargine (Insulin Glargine,Hum.Rec.Anlog 100 Unit/Ml 10 Ml Vial) 21 unit SUBCUT DAILY [facility] Last Admin: 10/24/23 08:09 Dose: 21 unit Insulin Human Lispro (Insulin Lispro 100 Unit/Ml 3 Ml Vial) 0 unit SUBCUT QIDACHS [facility]; Protocol Last Admin: 10/24/23 08:09 Dose: 6 unit Metoprolol Succinate (Metoprolol Succinate Er 25 Mg Tab.Er.24h) 25 mg PO DAILY [facility]; Protocol Last Admin: 10/24/23 08:09 Dose: 25 mg Ondansetron HCl (Ondansetron Hcl 4 Mg/2 Ml Vial) 4 mg IVPUSH Q8H PRN PRN Reason: Nausea and Vomiting Pantoprazole Sodium (Pantoprazole Sodium 40 Mg/10 Ml Vial) 40 mg IVPUSH DAILY@0630 [facility] Last Admin: 10/24/23 05:38 Dose: 40 mg Pharmacy Consult (Consult Rx Vancomycin Dosing) 1 each MISCELLANE DAILY PRN PRN Reason: Consult order Sodium Chloride (0.9 % Sodium Chloride Flush 3 Ml Syringe) 3 ml IVFLUSH QSHIFT [facility] Last Admin: 10/24/23 08:10 Dose: 3 ml Zolpidem Tartrate (Zolpidem Tartrate 5 Mg Tablet) 5 mg PO BEDTIME PRN PRN Reason: sleep Home Medications Medication Instructions Recorded Confirmed Last Taken Type pen needle, diabetic 32 gauge x #50 ea 04/28/23 10/23/23 08/15/23 History ferrous sulfate 325 mg (65 mg 325 mg PO DAILY 08/16/23 10/23/23 2 Weeks Ago History iron) tablet ~10/09/23 omeprazole 40 mg capsule,delayed 40 mg PO DAILY@0630 08/16/23 10/23/23 2 Weeks Ago History release ~10/09/23 acetaminophen 325 mg tablet 650 mg PO Q6H PRN pain 10/23/23 10/23/23 2 Weeks Ago History ~10/09/23 Physical Exam 2 Vital Signs: Vital Signs: Last Vital Signs Temp 98.6 F 10/24/23 11:10 Pulse 92 10/24/23 11:10 Resp 17 10/24/23 11:10 BP 136/92 H 10/24/23 11:10 Pulse Ox 99 10/24/23 07:51 O2 Del Method Room Air 10/24/23 07:51 BMI result Body Mass Index 30.1 Const: General: comfortable and no acute distress; No alert or awake Resp: Effort & Inspection: normal respiratory effort, able to speak in complete sentences, no respiratory distress and no use of accessory muscles Cardio: Rate: regular rate GI: Inspection: No distended Palpation (GI): Soft to palpation and nontender Skin: Other: left stump with foul smelling drainage Neuro: General: moves all extremities and CN's II-XI intact bilaterally Results Labs 10/26/23 07:18 10/26/23 07:18 Labs: Short CBC 10/23/23 10/24/23 Range/Units 14:37 07:11 WBC 13.2 H 9.7 (4.8-10.8) X10*3/uL Hgb 6.1 L* 6.9 L* (14.0-18.0) g/dl Hct 18.7 L* 21.1 L (42.0-52.0) % Plt Count 366 330 (160-400) X10*3/uL BMP 10/23/23 10/24/23 14:37 07:11 Sodium 129 L 133 L Potassium 4.3 4.0 Chloride 100 103 Carbon Dioxide 20 L 19 L BUN 18 H 17 H Creatinine 1.30 1.30 Calcium 8.8 8.9 Liver Function 10/23/23 Range/Units 14:37 Total Bilirubin 0.4 (0.0-1.0) mg/dL Direct Bilirubin 0.2 (0.0-0.5) mg/dL AST 18 (5-37) U/L ALT 12 (0-40) U/L Alkaline Phosphatase 92 (39-117) U/L Albumin 2.7 L (3.5-5.0) g/dL Urine 10/24/23 Range/Units 06:16 Urine Color Dark Yellow Urine Appearance Clear Urine pH 5.5 (5.0-9.0) Ur Specific [place] 1.020 (1.005-1.025) Urine Protein 300 (3+) H (Neg-Trace) mg/dL Urine Glucose (UA) 500 H (Negative) mg/dL Microbiology Microbiology Results: Microbiology 10/23/23 14:36 Blood - Venous Blood Culture - Preliminary Prelim: GPC Gram Stain only Assessment and Plan (1) Acute on chronic anemia: Status: Acute (2) GERD with esophagitis: Qualifiers: Esophagitis bleeding: without hemorrhage Qualified Code(s): K21.00 - Gastro-esophageal reflux disease with esophagitis, without bleeding Status: Acute Plan 52 ym with IDDM type 2, CAD, cardiomyopathy with EF 40-45%, HTN, HLD, DVT on Eliquis, left transmetatarsal amputation 07/04/21 with subsequent osteo at amputation site seen at [facility] ED from short-stay on 10/23/23 with fever, strong foul odor coming from left foot and worsening anemia. Pt was scehduled for an EGD and Colon for evaluation of anemia and chronic diarrhea. On arrival at short stay, pt appeared pale, had a fever and a foul odor from the left foot. Labs prior to colonoscopy found H&H to be 6.4/19.5 (decreased from 7.9 & 25.4 on 10/15/23). Endoscopic procedures were cancelled and patient was sent to the ED for further workup and evaluation. Repeat labs today showed H & H of 6.9 & 21.1 post transfusion. 2nd unit is being transfused this am Recurrent iron def anemia possibly related to intermittent GI blood loss from Upper (PUD, erosive esophagitis, UGI AVMs) or lower GI (polyps or AVMs) source. RECOMMENDATIONS: 1. Check CBC daily and transfuse to Hb of 8 2. Agree with IV antibiotics and PPI and hold iron till endoscopic procedures are perfomed. 3. Clear liquid diet and Mag citrate prep on 10/25/23 (order placed) 4. EGD and Colon scheduled on 10/25/23 Procedures Date of Service Date of Service: 11/02/23
[2023-10-24 11:27] LABS: Glucose, Whole Blood 216 mg/dL (60-115)
--- NOTE | 2023-10-24 13:30 | HO.SKINPHOTO ---
Location: L FOOT STUMP Category: Stage: Length: Width: Depth: cm Location: Category: Stage: Length: Width: Depth: cm Location: Category: Stage: Length: Width: Depth: cm Location: Category: Stage: Length: Width: Depth: cm Location: Category: Stage: Length: Width: Depth: cm Location: Category: Stage: Length: Width: Depth: cm
[2023-10-24 15:00] LABS: Vancomycin Random 16.3 mcg/mL (15-20)
--- NOTE | 2023-10-24 16:12 | MHC.CM.PN ---
PT REPORTS HE LIVES ALONE BUT IS WORRIED BECAUSE HE IS BEING EVICTED HE SAYS HE HAS TO BE OUT BY [employer] PT REPORTS HE WAS MAKING $1500 PER MONTH BUT AFTER THE BILATERAL TRANSMET AMPS HE WENT ON SSDI., AND NOW ONLY HAS 500 PER MONTH PT REPORTS HE ALSO HAS 22 AND 8 YO CHILDREN HE IS TRYING TO SUPPORT [facility] PROVIDED PT IS INDEPENDENT WITH CARE AND USES A CANE HE DECLINES TO COMPLETE A HCP PCP: LOUIS NORIEGA DCP: HOME NO SERVICES VIA PRIVATE TRANSPORT
[2023-10-24 16:31] LABS: Glucose, Whole Blood 236 mg/dL (60-115)
[2023-10-24] MEDS: vancomycin HCL 750 MG in 0.9 % Sodium Chloride 250 ML 265 MG IV (16:51)
[2023-10-24 19:56] LABS: Glucose, Whole Blood 244 mg/dL (60-115)
[2023-10-24] MEDS: bisacodyL 5 MG TABLET.DR 10 MG PO ×2 (20:54→20:59)
[2023-10-24] MEDS: Acetaminophen 325 MG TABLET 650 MG PO (20:55)
--- NOTE | 2023-10-24 23:55 | P.CNID_ITS ---
History of Present Illness Data of Consult Service Date: 10/24/23 Requesting physician: Katarzyna Girard Primary Care Provider: Fredy Adair PA-C HPI Reason for consult: fever of unknown origin He presents to hospital with fever picked up when at GI office for endoscopy evaluation. He also shows WBC of 19,000. He has had left TMA eight days ago. He has odor to foot. Review of Systems 2 Review of Systems: Yes all other systems are reviewed and are negative PMFSH Past Medical History Medical History Left ventricular ejection fraction of 40-49% SOB (shortness of breath) on exertion Anemia DMII (diabetes mellitus, type 2) Open wound Anemia of chronic disease Peripheral vascular disease Diabetic foot ulcer Anemia Orthostatic hypotension Gangrene of toe of left foot GERD (gastroesophageal reflux disease) History of angiography PICC (peripherally inserted central catheter) in place Bacteremia Diabetic foot ulcer PAD (peripheral artery disease) Diabetes Family History Family History Other Diabetes No family history of cancer Family history: reviewed and not pertinent Surgical History Surgical History History of transmetatarsal amputation of left foot Amputated toe of right foot (11/05/20) Social History Social History Household Members: None Housing: Apartment Are you a primary congregational care pastor to a significant other at home: No Do you presently have visiting nurse or other home services: No Alcohol intake: current Alcohol intake frequency: a few times a week Alcohol type: hard liquor Comment: pt still feeling the same Patient Tobacco Use Status: Never used Tobacco Tobacco use type: Cigarette Cigarette Packs Per Day: 0.5 Cigarettes Per Day: 1 Years Smoked: 15 e-Cigarette/Vaping Use: Never Used Second Hand Smoke Exposure: No Use of substances other than those prescribed or required for medical reasons: No Currently Displaying Signs/Symptoms of Drug Intoxication Withdrawal: No Have you been hit, kicked, punched, or otherwise hurt by someone within the past year? If so, by whom?: No Do you feel safe in your current relationship?: No Current Relationship Is there a partner from a previous relationship who is making you feel unsafe now?: No Are you made to feel afraid or neglected: No Advance Directives: No Advance Directives Information Provided: No Do you have thoughts of harming others: None Do you have a plan to hurt others: No Plan Recently lost weight without trying: No Eating poorly because of decreased appetite: No Nutrition Risks: No Nutritional Risk service: No Current occupational status: unemployed Cognitive needs: No Hearing needs: No Vision needs: No Meds Allergies Allergy/AdvReac Type Severity Reaction Status Date / Time No Known Allergies Allergy Verified 10/23/23 13:25 Active Medications: Current Medications Acetaminophen (Acetaminophen 325 Mg Tablet) 650 mg PO Q6H PRN PRN Reason: Pain, Mild (Pain Scale 1-3) Last Admin: 10/24/23 20:55 Dose: 650 mg Amlodipine Besylate (Amlodipine Besylate 10 Mg Tablet) 10 mg PO DAILY [facility]; Protocol Last Admin: 10/24/23 08:08 Dose: 10 mg Atorvastatin Calcium (Atorvastatin Calcium 40 Mg Tablet) 40 mg PO DAILY [facility] Last Admin: 10/24/23 08:08 Dose: 40 mg Benzonatate (Benzonatate 100 Mg Capsule) 100 mg PO TID PRN PRN Reason: Cough Bisacodyl (Bisacodyl 5 Mg Tablet.) 10 mg PO BEDTIME [facility] Last Admin: 10/24/23 20:59 Dose: 10 mg Bisacodyl (Bisacodyl 5 Mg Tablet.) 10 mg PO ONCE ONE Stop: 10/25/23 13:01 Last Admin: 10/24/23 20:54 Dose: 10 mg Dextrose (Dextrose 50 % 25 Gm/50 Ml Syringe) 25 gm IVPUSH Q15M PRN; Protocol PRN Reason: per Hypoglycemia Standing Ord. Ferrous Sulfate (Ferrous Sulfate 324 Mg Tablet.) 324 mg PO DAILY [facility] Last Admin: 10/24/23 08:08 Dose: 324 mg Furosemide (Furosemide 20 Mg/2 Ml Vial) 20 mg IVPUSH DAILY [facility]; Protocol Last Admin: 10/24/23 08:32 Dose: 20 mg Glucose (Glucose Gel 15 Gm Gel..Gram.) 15 gm PO Q15M PRN; Protocol PRN Reason: per Hypoglycemia Standing Ord. Cefepime HCl 2 gm/ Sodium (Chloride) 50 mls @ 100 mls/hr IV Q8H [facility] Last Admin: 10/24/23 23:22 Dose: 100 mls/hr Vancomycin HCl 750 mg/ Sodium (Chloride) 265 mls @ 265 mls/hr IV Q12H [facility] Last Infusion: 10/24/23 18:26 Dose: Infused Insulin Glargine (Insulin Glargine,Hum.Rec.Anlog 100 Unit/Ml 10 Ml Vial) 21 unit SUBCUT DAILY [facility] Last Admin: 10/24/23 08:09 Dose: 21 unit Insulin Human Lispro (Insulin Lispro 100 Unit/Ml 3 Ml Vial) 0 unit SUBCUT QIDACHS [facility]; Protocol Last Admin: 10/24/23 20:55 Dose: 4 unit Magnesium Citrate (Magnesium Citrate 300 Ml Solution) 300 ml PO ONCE ONE Stop: 10/25/23 15:01 Metoprolol Succinate (Metoprolol Succinate Er 25 Mg Tab.Er.24h) 25 mg PO DAILY [facility]; Protocol Last Admin: 10/24/23 08:09 Dose: 25 mg Ondansetron HCl (Ondansetron Hcl 4 Mg/2 Ml Vial) 4 mg IVPUSH Q8H PRN PRN Reason: Nausea and Vomiting Pantoprazole Sodium (Pantoprazole Sodium 40 Mg/10 Ml Vial) 40 mg IVPUSH DAILY@0630 [facility] Last Admin: 10/24/23 05:38 Dose: 40 mg Pharmacy Consult (Consult Rx Vancomycin Dosing) 1 each MISCELLANE DAILY PRN PRN Reason: Consult order Sodium Chloride (0.9 % Sodium Chloride Flush 3 Ml Syringe) [facility] Last Admin: 10/24/23 20:58 Dose: 3 ml Zolpidem Tartrate (Zolpidem Tartrate 5 Mg Tablet) 5 mg PO BEDTIME PRN PRN Reason: sleep Home Medications Medication Instructions Recorded Confirmed Last Taken Type pen needle, diabetic 32 gauge x #50 ea 04/28/23 10/23/23 08/15/23 History ferrous sulfate 325 mg (65 mg 325 mg PO DAILY 08/16/23 10/23/23 2 Weeks Ago History iron) tablet ~10/09/23 omeprazole 40 mg capsule,delayed 40 mg PO DAILY@0630 08/16/23 10/23/23 2 Weeks Ago History release ~10/09/23 acetaminophen 325 mg tablet 650 mg PO Q6H PRN pain 10/23/23 10/23/23 2 Weeks Ago History ~10/09/23 Physical Exam 2 Vital Signs: Vital Signs: Last Vital Signs Temp 96.8 F 10/24/23 23:32 Pulse 83 10/24/23 23:32 Resp 20 10/24/23 23:32 BP 184/90 H 10/24/23 23:32 Pulse Ox 96 10/24/23 23:32 O2 Del Method Room Air 10/24/23 23:32 BMI result Body Mass Index 30.1 Const: General: cooperative HEENT: Head: Yes normal to inspection Face and sinus: Yes normal facial exam Mouth: Normal oral and palatal mucosa present Teeth and gingiva: d entition normal Eyes: General: appearance normal, both eyes and all related structures P upils: Equal, round and reactive pupils present Resp: Effort & Inspection: normal respiratory effort Cardio: Rate: regular rate Rhythm: regular rhythm GI: Palpation (GI): Soft to palpation and nontender : General: Yes no CVA tenderness Back/Spine/Pelvis: Back: no CVA tenderness Skin: General skin exam: no rashes or lesions noted Neuro: General: moves all extremities Cranial nerves: Yes Equal, round and reactive pupils present Extrem: Other: some odor to TMA site,left Psych: Appearance: grossly normal Results Labs 10/24/23 07:11 10/24/23 07:11 Labs: Short CBC 10/24/23 Range/Units 07:11 WBC 9.7 (4.8-10.8) X10*3/uL Hgb 6.9 L* (14.0-18.0) g/dl Hct 21.1 L (42.0-52.0) % Plt Count 330 (160-400) X10*3/uL BMP 10/24/23 07:11 Sodium 133 L Potassium 4.0 Chloride 103 Carbon Dioxide 19 L BUN 17 H Creatinine 1.30 Calcium 8.9 Urine 10/24/23 Range/Units 06:16 Urine Color Dark Yellow Urine Appearance Clear Urine pH 5.5 (5.0-9.0) Ur Specific [place] 1.020 (1.005-1.025) Urine Protein 300 (3+) H (Neg-Trace) mg/dL Urine Glucose (UA) 500 H (Negative) mg/dL Microbiology Microbiology Results: Microbiology 10/23/23 14:50 Blood - Venous Blood Culture - Preliminary Prelim: GPC Gram Stain only 10/23/23 14:36 Blood - Venous Blood Culture - Preliminary Prelim: GPC Gram Stain only Assessment and Plan (1) Osteomyelitis of left foot: Status: Acute He has possible infection left foot,OM He has gram positive or gram negative and possible anerobes Plan Continue Cefepime and Vancomycin. Add Flagyl for now Await cultures Probable IV antibiotics,possible six weeks.
[2023-10-25] VITALS (7 sets, daily range): BP systolic 124–182; BP diastolic 68–95; PULSE 76–85; RESP 18–20; TEMP 36.6–37.3; O2SAT 96–99
[2023-10-25] MEDS: metroNIDAZOLE/NS 500 MG/100 ML PIGGYBACK 100 MG IV ×2 (00:32→11:54)
[2023-10-25] MEDS: Pantoprazole Sodium 40 MG/10 ML VIAL IVPUSH (04:53)
[2023-10-25] MEDS: vancomycin HCL 750 MG in 0.9 % Sodium Chloride 250 ML 265 MG IV (05:20)
[2023-10-25 06:31] LABS: Hematocrit 25.5 % (42.0-52.0); Hemoglobin 8.4 g/dl (14.0-18.0); Mean Corpuscular HGB Conc 32.9 g/dl (31.0-36.0); Mean Corpuscular Hemoglobin 27.7 pg (27.0-33.0); Mean Corpuscular Volume 84.2 fL (80.0-98.0); Mean Platelet Volume 10.1 fL (9.4-12.4); Platelet Count 374 X10*3/uL (160-400); Red Blood Count 3.03 X10*6/uL (4.60-5.80); Red Cell Distribution Width 15.5 % (11.0-16.0); White Blood Count 8.8 X10*3/uL (4.8-10.8)
[2023-10-25] MEDS: cefEPime HCl 2 GM in 0.9 % Sodium Chloride 50 ML IV (06:33)
[2023-10-25 06:46] LABS: Anion Gap 14 (12-20); Blood Urea Nitrogen 14 mg/dL (9-16); Calcium 8.8 mg/dL (8.4-10.2); Carbon Dioxide 21 mmol/L (22-29); Chloride 103 mmol/L (96-108); Creatinine Clr Calc Pharmacy 82.9; Estimated Glomerular Filt Rate > 60; Glucose Random 247 mg/dL (60-115); Potassium 3.8 mmol/L (3.3-5.1); Sodium 134 mmol/L (135-145)
[2023-10-25 06:48] LABS: B Type Natriuretic Peptide 2266 pg/mL (<100)
[2023-10-25 07:47] LABS: Glucose, Whole Blood 286 mg/dL (60-115)
[2023-10-25] MEDS: amLODIPine Besylate 10 MG TABLET PO (08:01)
[2023-10-25] MEDS: Metoprolol Succinate ER 25 MG TAB.ER.24H PO (08:01)
[2023-10-25] MEDS: Atorvastatin Calcium 40 MG TABLET PO (08:02)
[2023-10-25] MEDS: Insulin Glargine,Hum.rec.anlog 100 UNIT/ML 10 ML VIAL 21 UNIT SUBCUT (08:02)
[2023-10-25] MEDS: Insulin Lispro 100 UNIT/ML 3 ML VIAL SUBCUT ×4 (08:02→20:19)
[2023-10-25] MEDS: Furosemide 20 MG/2 ML VIAL IVPUSH (09:29)
[2023-10-25] MEDS: 0.9 % Sodium Chloride Flush 3 ML SYRINGE IVFLUSH ×2 (09:32→15:14)
--- NOTE | 2023-10-25 10:22 | PM.CNGS ---
History of Present Illness Consult details Consult date: 10/25/23 Narrative: Patient is a 52-year-old male with a very significant past medical and surgical history. He was unofficially seen in the ER by me on Thursday evening with a necrotic nonhealing foul-smelling left foot. He was status post trans met amputation at [facility]. He presents here because of the above-mentioned nonhealing wound. Chart was reviewed and patient evaluated PMFSH Past Medical History Medical History Left ventricular ejection fraction of 40-49% SOB (shortness of breath) on exertion Anemia DMII (diabetes mellitus, type 2) Open wound Anemia of chronic disease Peripheral vascular disease Diabetic foot ulcer Anemia Orthostatic hypotension Gangrene of toe of left foot GERD (gastroesophageal reflux disease) History of angiography PICC (peripherally inserted central catheter) in place Bacteremia Diabetic foot ulcer PAD (peripheral artery disease) Diabetes Family History Family History Other Diabetes No family history of cancer Family history: reviewed and not pertinent Surgical History Surgical History History of transmetatarsal amputation of left foot Amputated toe of right foot (11/05/20) Social History Social History Household Members: None Housing: Apartment Are you a primary healthcare social worker to a significant other at home: No Do you presently have visiting nurse or other home services: No Alcohol intake: current Alcohol intake frequency: a few times a week Alcohol type: hard liquor Comment: pt still feeling the same Patient Tobacco Use Status: Never used Tobacco Tobacco use type: Cigarette Cigarette Packs Per Day: 0.5 Cigarettes Per Day: 1 Years Smoked: 15 e-Cigarette/Vaping Use: Never Used Second Hand Smoke Exposure: No Use of substances other than those prescribed or required for medical reasons: No Currently Displaying Signs/Symptoms of Drug Intoxication Withdrawal: No Have you been hit, kicked, punched, or otherwise hurt by someone within the past year? If so, by whom?: No Do you feel safe in your current relationship?: No Current Relationship Is there a partner from a previous relationship who is making you feel unsafe now?: No Are you made to feel afraid or neglected: No Advance Directives: No Advance Directives Information Provided: No Do you have thoughts of harming others: None Do you have a plan to hurt others: No Plan Recently lost weight without trying: No Eating poorly because of decreased appetite: No Nutrition Risks: No Nutritional Risk service: No Current occupational status: unemployed Cognitive needs: No Hearing needs: No Vision needs: No Meds Allergies Allergy/AdvReac Type Severity Reaction Status Date / Time No Known Allergies Allergy Verified 10/23/23 13:25 Active Medications: Current Medications Acetaminophen (Acetaminophen 325 Mg Tablet) 650 mg PO Q6H PRN PRN Reason: Pain, Mild (Pain Scale 1-3) Last Admin: 10/24/23 20:55 Dose: 650 mg Amlodipine Besylate (Amlodipine Besylate 10 Mg Tablet) 10 mg PO DAILY [facility]; Protocol Last Admin: 10/25/23 08:01 Dose: 10 mg Atorvastatin Calcium (Atorvastatin Calcium 40 Mg Tablet) 40 mg PO DAILY [facility] Last Admin: 10/25/23 08:02 Dose: 40 mg Benzonatate (Benzonatate 100 Mg Capsule) 100 mg PO TID PRN PRN Reason: Cough Bisacodyl (Bisacodyl 5 Mg Tablet.) 10 mg PO BEDTIME [facility] Last Admin: 10/24/23 20:59 Dose: 10 mg Bisacodyl (Bisacodyl 5 Mg Tablet.) 10 mg PO ONCE ONE Stop: 10/25/23 13:01 Last Admin: 10/24/23 20:54 Dose: 10 mg Dextrose (Dextrose 50 % 25 Gm/50 Ml Syringe) 25 gm IVPUSH Q15M PRN; Protocol PRN Reason: per Hypoglycemia Standing Ord. Ferrous Sulfate (Ferrous Sulfate 324 Mg Tablet.) 324 mg PO DAILY [facility] Last Admin: 10/24/23 08:08 Dose: 324 mg Furosemide (Furosemide 20 Mg/2 Ml Vial) 20 mg IVPUSH DAILY [facility]; Protocol Last Admin: 10/25/23 09:29 Dose: 20 mg Glucose (Glucose Gel 15 Gm Gel..Gram.) 15 gm PO Q15M PRN; Protocol PRN Reason: per Hypoglycemia Standing Ord. Cefepime HCl 2 gm/ Sodium (Chloride) 50 mls @ 100 mls/hr IV Q8H [facility] Last Infusion: 10/25/23 07:13 Dose: Infused Vancomycin HCl 750 mg/ Sodium (Chloride) 265 mls @ 265 mls/hr IV Q12H [facility] Last Infusion: 10/25/23 06:23 Dose: Infused Metronidazole (Flagyl) 500 mg in 100 mls @ 100 mls/hr IV Q12H [facility] Last Infusion: 10/25/23 02:45 Dose: Infused Insulin Glargine (Insulin Glargine,Hum.Rec.Anlog 100 Unit/Ml 10 Ml Vial) 21 unit SUBCUT DAILY [facility] Last Admin: 10/25/23 08:02 Dose: 21 unit Insulin Human Lispro (Insulin Lispro 100 Unit/Ml 3 Ml Vial) 0 unit SUBCUT QIDACHS [facility]; Protocol Last Admin: 10/25/23 08:02 Dose: 6 unit Magnesium Citrate (Magnesium Citrate 300 Ml Solution) 300 ml PO ONCE ONE Stop: 10/25/23 15:01 Metoprolol Succinate (Metoprolol Succinate Er 25 Mg Tab.Er.24h) 25 mg PO DAILY [facility]; Protocol Last Admin: 10/25/23 08:01 Dose: 25 mg Ondansetron HCl (Ondansetron Hcl 4 Mg/2 Ml Vial) 4 mg IVPUSH Q8H PRN PRN Reason: Nausea and Vomiting Pantoprazole Sodium (Pantoprazole Sodium 40 Mg/10 Ml Vial) 40 mg IVPUSH DAILY@629 [facility] Last Admin: 10/25/23 04:53 Dose: 40 mg Pharmacy Consult (Consult Rx Vancomycin Dosing) 1 each MISCELLANE DAILY PRN PRN Reason: Consult order Sodium Chloride (0.9 % Sodium Chloride Flush 3 Ml Syringe) 3 ml IVFLUSH QSHIFT [facility] Last Admin: 10/25/23 09:32 Dose: 3 ml Zolpidem Tartrate (Zolpidem Tartrate 5 Mg Tablet) 5 mg PO BEDTIME PRN PRN Reason: sleep Home Medications Medication Instructions Recorded Confirmed Last Taken Type pen needle, diabetic 32 gauge x #50 ea 04/28/23 10/23/23 08/15/23 History ferrous sulfate 325 mg (65 mg 325 mg PO DAILY 08/16/23 10/23/23 2 Weeks Ago History iron) tablet ~10/09/23 omeprazole 40 mg capsule,delayed 40 mg PO DAILY@0630 08/16/23 10/23/23 2 Weeks Ago History release ~10/09/23 acetaminophen 325 mg tablet 650 mg PO Q6H PRN pain 10/23/23 10/23/23 2 Weeks Ago History ~10/09/23 Physical Exam Vital Signs: Vital Signs: Last Vital Signs Temp 97.8 F 10/25/23 07:20 Pulse 82 10/25/23 07:20 Resp 18 10/25/23 07:20 BP 172/92 H 10/25/23 07:20 Pulse Ox 99 10/25/23 07:20 O2 Del Method Room Air 10/25/23 07:20 BMI result Body Mass Index 30.1 Extrem: Other: Left trans met wound is not healed, foul-smelling, necrotic. This was evaluated by me unofficially on Thursday evening. Wound is currently dressed. No obvious palpable pulses. The extremities grossly neurovascularly intact. Results Labs 10/25/23 05:55 10/25/23 05:55 Labs: Abnormal lab results 10/23/23 10/24/23 10/24/23 Range/Units 14:37 11:20 16:28 RBC (4.60-5.80) X10*6/uL Hgb (14.0-18.0) g/dl Hct (42.0-52.0) % Sodium (135-145) mmol/L Carbon Dioxide (22-29) mmol/L POC Glucose 216 H 236 H (60-115) mg/dL Random Glucose (60-115) mg/dL B-Natriuretic Peptide (<100) pg/mL Crossmatch See Detail 10/24/23 10/25/23 10/25/23 Range/Units 19:51 05:55 07:44 RBC 3.03 L (4.60-5.80) X10*6/uL Hgb 8.4 L D (14.0-18.0) g/dl Hct 25.5 L D (42.0-52.0) % Sodium 134 L (135-145) mmol/L Carbon Dioxide 21 L (22-29) mmol/L POC Glucose 244 H 286 H (60-115) mg/dL Random Glucose 247 H (60-115) mg/dL B-Natriuretic Peptide 2266 H (<100) pg/mL Crossmatch Short CBC 10/25/23 Range/Units 05:55 WBC 8.8 (4.8-10.8) X10*3/uL Hgb 8.4 L D (14.0-18.0) g/dl Hct 25.5 L D (42.0-52.0) % Plt Count 374 (160-400) X10*3/uL [facility] 10/25/23 05:55 Sodium 134 L Potassium 3.8 Chloride 103 Carbon Dioxide 21 L BUN 14 Creatinine 1.16 Calcium 8.8 Urine 10/24/23 Range/Units 06:16 Urine Color Dark Yellow Urine Appearance Clear Urine pH 5.5 (5.0-9.0) Ur Specific [place] 1.020 (1.005-1.025) Urine Protein 300 (3+) H (Neg-Trace) mg/dL Urine Glucose (UA) 500 H (Negative) mg/dL All other labs normal. Assessment and Plan (1) Osteomyelitis of left foot: Status: Acute (2) Infected surgical wound: Status: Acute Plan I discussed with the patient his limited therapeutic options. Unfortunately, because of his poor vascular inflow and nonhealing, debriding this would and attempt to salvage it would offer limited benefit. Patient would most likely require a left below knee amputation. Patient has been seen by Dr. Hammer in the past and does not want to have him involved in his care. I mentioned to him that he could either have his surgery performed here at [place] or he can be transferred to [facility] to his vascular surgeon who cares for him at that facility. He wishes to think these options over. In the meantime, continue current plan. Procedures Date of Service Date of Service: 10/25/23
[2023-10-25 11:03] LABS: Glucose, Whole Blood 251 mg/dL (60-115)
--- NOTE | 2023-10-25 11:38 | HO.PM.IMPN ---
Subjective Subjective Date of Service: 10/25/23 Interval History: seen and examined this morning follow up for anemia, left foot wound blood cultures positive patient with no specific complaints. no chest pain, sob or abdominal pain; denies fever or chills Review of Systems Review of Systems: Yes all other systems are reviewed and are negative Constitutional Constitutional: Denies chills and Denies fever(s) Cardiovascular Cardiovascular: Denies chest pain and Denies palpitations Endocrine Endocrine: Denies palpitations Physical Exam Vital Signs: Vital Signs: Last Vital Signs Temp 97.8 F 10/25/23 07:20 Pulse 82 10/25/23 07:20 Resp 18 10/25/23 07:20 BP 172/92 H 10/25/23 07:20 Pulse Ox 99 10/25/23 07:20 O2 Del Method Room Air 10/25/23 07:20 BMI result Body Mass Index 30.1 Const: General: comfortable and no acute distress; No alert or awake Resp: Effort & Inspection: normal respiratory effort, able to speak in complete sentences, no respiratory distress and no use of accessory muscles Cardio: Rate: regular rate GI: Inspection: No distended Palpation (GI): Soft to palpation and nontender Skin: Other: left stump with foul smelling drainage Neuro: General: moves all extremities and CN's II-XI intact bilaterally Objective Data Active Medications Acetaminophen (Acetaminophen 325 Mg Tablet) 650 mg PO Q6H PRN PRN Reason: Pain, Mild (Pain Scale 1-3) Last Admin: 10/24/23 20:55 Dose: 650 mg Documented By: DOMONIQUE Amlodipine Besylate (Amlodipine Besylate 10 Mg Tablet) 10 mg PO DAILY [facility]; Protocol Last Admin: 10/25/23 08:01 Dose: 10 mg Documented By: MARIO ALBERTO Atorvastatin Calcium (Atorvastatin Calcium 40 Mg Tablet) 40 mg PO DAILY [facility] Last Admin: 10/25/23 08:02 Dose: 40 mg Documented By: MARIO ALBERTO Benzonatate (Benzonatate 100 Mg Capsule) 100 mg PO TID PRN PRN Reason: Cough Bisacodyl (Bisacodyl 5 Mg Tablet.) 10 mg PO BEDTIME [facility] Last Admin: 10/24/23 20:59 Dose: 10 mg Documented By: DOMONIQUE Bisacodyl (Bisacodyl 5 Mg Tablet.) 10 mg PO ONCE ONE Stop: 10/25/23 13:01 Last Admin: 10/24/23 20:54 Dose: 10 mg Documented By: DOMONIQUE Dextrose (Dextrose 50 % 25 Gm/50 Ml Syringe) 25 gm IVPUSH Q15M PRN; Protocol PRN Reason: per Hypoglycemia Standing Ord. Ferrous Sulfate (Ferrous Sulfate 324 Mg Tablet.) 324 mg PO DAILY [facility] Last Admin: 10/24/23 08:08 Dose: 324 mg Documented By: MARIO ALBERTO Furosemide (Furosemide 20 Mg/2 Ml Vial) 20 mg IVPUSH DAILY [facility]; Protocol Last Admin: 10/25/23 09:29 Dose: 20 mg Documented By: MARIO ALBERTO Glucose (Glucose Gel 15 Gm Gel..Gram.) 15 gm PO Q15M PRN; Protocol PRN Reason: per Hypoglycemia Standing Ord. Cefepime HCl 2 gm/ Sodium (Chloride) 50 mls @ 100 mls/hr IV Q8H [facility] Last Infusion: 10/25/23 07:13 Dose: Infused Documented By: MARIO ALBERTO Vancomycin HCl 750 mg/ Sodium (Chloride) 265 mls @ 265 mls/hr IV Q12H [facility] Last Infusion: 10/25/23 06:23 Dose: Infused Documented By: DOMONIQUE Metronidazole (Flagyl) 500 mg in 100 mls @ 100 mls/hr IV Q12H [facility] Last Infusion: 10/25/23 02:45 Dose: Infused Documented By: DOMONIQUE Insulin Glargine (Insulin Glargine,Hum.Rec.Anlog 100 Unit/Ml 10 Ml Vial) 21 unit SUBCUT DAILY [facility] Last Admin: 10/25/23 08:02 Dose: 21 unit Documented By: MARIO ALBERTO Insulin Human Lispro (Insulin Lispro 100 Unit/Ml 3 Ml Vial) 0 unit SUBCUT QIDACHS [facility]; Protocol Last Admin: 10/25/23 08:02 Dose: 6 unit Documented By: MARIO ALBERTO Magnesium Citrate (Magnesium Citrate 300 Ml Solution) 300 ml PO ONCE ONE Stop: 10/25/23 15:01 Metoprolol Succinate (Metoprolol Succinate Er 25 Mg Tab.Er.24h) 25 mg PO DAILY [facility]; Protocol Last Admin: 10/25/23 08:01 Dose: 25 mg Documented By: MARIO ALBERTO Ondansetron HCl (Ondansetron Hcl 4 Mg/2 Ml Vial) 4 mg IVPUSH Q8H PRN PRN Reason: Nausea and Vomiting Pantoprazole Sodium (Pantoprazole Sodium 40 Mg/10 Ml Vial) 40 mg IVPUSH DAILY@0630 [facility] Last Admin: 10/25/23 04:53 Dose: 40 mg Documented By: DOMONIQUE Pharmacy Consult (Consult Rx Vancomycin Dosing) 1 each MISCELLANE DAILY PRN PRN Reason: Consult order Sodium Chloride (0.9 % Sodium Chloride Flush 3 Ml Syringe) 3 ml IVFLUSH QSHIFT [facility] Last Admin: 10/25/23 09:32 Dose: 3 ml Documented By: MARIO ALBERTO Zolpidem Tartrate (Zolpidem Tartrate 5 Mg Tablet) 5 mg PO BEDTIME PRN PRN Reason: sleep Labs 10/25/23 05:55 10/25/23 05:55 Labs: Laboratory Results - last 24 hr 10/23/23 10/24/23 10/24/23 14:37 14:06 16:28 MCV MCH MCHC RDW Plt Count MPV Absolute Nucleated RBC Nucleated RBC % (auto) Anion Gap Estim Creat Clear Calc Estimated GFR POC Glucose 236 H Random Glucose Calcium B-Natriuretic Peptide Random Vancomycin 16.3 Crossmatch See Detail 10/24/23 10/25/23 10/25/23 19:51 05:55 07:44 MCV 84.2 MCH 27.7 MCHC 32.9 RDW 15.5 Plt Count 374 MPV 10.1 Absolute Nucleated RBC 0.000 Nucleated RBC % (auto) 0.0 Anion Gap 14 Estim Creat Clear Calc 82.9 Estimated GFR > 60 POC Glucose 244 H 286 H Random Glucose 247 H Calcium 8.8 B-Natriuretic Peptide 2266 H Random Vancomycin Crossmatch 10/25/23 10:55 MCV MCH MCHC RDW Plt Count MPV Absolute Nucleated RBC Nucleated RBC % (auto) Anion Gap Estim Creat Clear Calc Estimated GFR POC Glucose 251 H Random Glucose Calcium B-Natriuretic Peptide Random Vancomycin Crossmatch Microbiology Microbiology Results: Microbiology 10/23/23 14:50 Blood Culture - Preliminary Blood - Venous Staphylococcus aureus 10/23/23 14:36 Blood Culture - Preliminary Blood - Venous Staphylococcus aureus Assessment and Plan (1) Acute on chronic anemia: Status: Acute (2) Osteomyelitis of left foot: Status: Acute (3) Staphylococcus aureus bacteremia: Status: Acute Plan This is a 52-year-old male with a PMH significant for?insulin-dependent diabetes type 2, CAD s/p stent, cardiomyopathy with EF 40-45%, HTN, HLD, DVT on Eliquis, left transmetatarsal amputation 07/04/21 with subsequent osteo at amputation site s/p IV abx and recent surgery at [facility] who was sent to the ED from short-stay surgery (where he was scheduled for EGD and colonoscopy) for fever and foul smelling drainage from left amputation site Acute on chronic normocytic anemia H&H improved with transfusion s/p 2 units PRBCs 10/23, 1U 10/24 heme negative. has been following with hematology/GI for anemia and was planned for EGD/colonoscopy which was cancelled on the day of admission due to fever. now planned for Thursday 10/26 - cardiology clearance pending will hold antiplatelets and anticoagulants - resume after scope if able Follow CBC Osteomyelitis of left foot with sepsis Diabetic foot infection s/p TMA Elevated ESR, CRP, imaging suggestive of osteomyelitis recent surgery at [facility] - attempting to obtain surgical notes Continue IV Vanco and cefepime, started 10/23/2023 and IV flagyl added 10/24 by ID ID following - rec 6 weeks IV abx seen by surgery - rec BKA - patient currently considering his options Blood cultures + as below Staph bacteremia 2/2 blood cultures growing staph aureus - sensitivities pending Insulin-dependent diabetes type 2 with hyperglycemia presented with BS in the 300s Hba1c 8.2 Hold metformin, Trulicity Sliding-scale insulin will increase Lantus to 25U (baseline 30 but unclear compliance) follow insulin needs and titrate as needed Diabetic diet combined systolic and diastolic CHF BNP elevated but no respiratory symptoms Will treat with Lasix 20 mg IV Elevated troponins Initial troponin 47.3 with repeat 44.7 Patient asymptomatic without chest pain or pressure, EKG without ischemic changes Likely type 2 in the setting of increased demand Monitor on telemetry CAD s/p ZAC to LAD 03/2023 hold plavix for now, resume as soon as able was not on aspirin as per previous cardiology notes ? started by vascular Abnormal CXR CXR showed new 3.8 cm round opacity in the left lung base, suggestive of possible mass versus pneumonia Patient without respiratory complaints Being covered with antibiotics as above Follow-up outpatient with repeat CXR for resolution or for additional workup pseudo Hyponatremia due to hyperglycemia GERD Being covered with Protonix HTN Continue amlodipine and metoprolol was previously on losartan 25, consider resuming if bp remains high HLD/PAD Hold aspirin and Plavix d/t anemia and planned EGD/colonoscopy and resume as soon as able given LAD stent Continue statin Hx of DVT Hold Eliquis d/t anemia, resume when safe from GI perscpective Full Code DVT Prophylaxis: Pneumatic boots Pt will require a hospitalization of at least two nights for treatment of?acute on chronic anemia and osteomyelitis of left foot with sepsis. Patient require IV antibiotics, specialist consultation, and transfusion with PRBCs and close monitoring of labs. Quality Stroke Does the patient have a stroke diagnosis?: No VTE Prior VTE?: No VTE Risk Level:: Medical - moderate - high VTE Device Contraindication: N/A - Device Ordered VTE Drug Contraindication: Treatment Not Indicated
--- NOTE | 2023-10-25 11:58 | P.CONCA_ITS ---
History of Present Illness History of Present Illness Date of Service: 10/25/23 Requesting physician: Katarzyna Girard Chief complaint: Anemia, preop assessment Narrative: Pleasant 52 year gentleman who has complex cardiovascular and medical issues including diabetes, diabetic foot infection with osteomyelitis and recent transmetatarsal amputation. He has Staph aureus bacteremia based on blood testing from October 23. Repeat blood cultures are pending. He previously had endoscopy planned for anemia but it was canceled 2 times. We have been asked to see him and assess his perioperative cardiovascular risk. Since his LAD PCI on 04/07/2023 has not had any chest discomfort or significant shortness of breath. Denying any orthopnea or PND. Diabetes control is poor. Blood pressure is elevated. It appears he has been off Plavix at this point. He was also on Eliquis previously which is on hold 2. [facility] Past Medical History Medical History Left ventricular ejection fraction of 40-49% SOB (shortness of breath) on exertion Anemia DMII (diabetes mellitus, type 2) Open wound Anemia of chronic disease Peripheral vascular disease Diabetic foot ulcer Anemia Orthostatic hypotension Gangrene of toe of left foot GERD (gastroesophageal reflux disease) History of angiography PICC (peripherally inserted central catheter) in place Bacteremia Diabetic foot ulcer PAD (peripheral artery disease) Diabetes Family History Family History Other Diabetes No family history of cancer Family history: reviewed and not pertinent Surgical History Surgical History History of transmetatarsal amputation of left foot Amputated toe of right foot (11/05/20) Social History Social History Household Members: None Housing: Apartment Are you a primary interior plant caretaker to a significant other at home: No Do you presently have visiting nurse or other home services: No Alcohol intake: current Alcohol intake frequency: a few times a week Alcohol type: hard liquor Comment: pt still feeling the same Patient Tobacco Use Status: Never used Tobacco Tobacco use type: Cigarette Cigarette Packs Per Day: 0.5 Cigarettes Per Day: 1 Years Smoked: 15 e-Cigarette/Vaping Use: Never Used Second Hand Smoke Exposure: No Use of substances other than those prescribed or required for medical reasons: No Currently Displaying Signs/Symptoms of Drug Intoxication Withdrawal: No Have you been hit, kicked, punched, or otherwise hurt by someone within the past year? If so, by whom?: No Do you feel safe in your current relationship?: No Current Relationship Is there a partner from a previous relationship who is making you feel unsafe now?: No Are you made to feel afraid or neglected: No Advance Directives: No Advance Directives Information Provided: No Do you have thoughts of harming others: None Do you have a plan to hurt others: No Plan Recently lost weight without trying: No Eating poorly because of decreased appetite: No Nutrition Risks: No Nutritional Risk service: No Current occupational status: unemployed Cognitive needs: No Hearing needs: No Vision needs: No Meds Allergies Allergy/AdvReac Type Severity Reaction Status Date / Time No Known Allergies Allergy Verified 10/23/23 13:25 Active Medications: Current Medications Acetaminophen (Acetaminophen 325 Mg Tablet) 650 mg PO Q6H PRN PRN Reason: Pain, Mild (Pain Scale 1-3) Last Admin: 10/24/23 20:55 Dose: 650 mg Amlodipine Besylate (Amlodipine Besylate 10 Mg Tablet) 10 mg PO DAILY [facility]; Protocol Last Admin: 10/25/23 08:01 Dose: 10 mg Atorvastatin Calcium (Atorvastatin Calcium 40 Mg Tablet) 40 mg PO DAILY [facility] Last Admin: 10/25/23 08:02 Dose: 40 mg Benzonatate (Benzonatate 100 Mg Capsule) 100 mg PO TID PRN PRN Reason: Cough Bisacodyl (Bisacodyl 5 Mg Tablet.) 10 mg PO BEDTIME [facility] Last Admin: 10/24/23 20:59 Dose: 10 mg Bisacodyl (Bisacodyl 5 Mg Tablet.) 10 mg PO ONCE ONE Stop: 10/25/23 13:01 Last Admin: 10/24/23 20:54 Dose: 10 mg Dextrose (Dextrose 50 % 25 Gm/50 Ml Syringe) 25 gm IVPUSH Q15M PRN; Protocol PRN Reason: per Hypoglycemia Standing Ord. Ferrous Sulfate (Ferrous Sulfate 324 Mg Tablet.) 324 mg PO DAILY [facility] Last Admin: 10/24/23 08:08 Dose: 324 mg Furosemide (Furosemide 20 Mg/2 Ml Vial) 20 mg IVPUSH DAILY [facility]; Protocol Last Admin: 10/25/23 09:29 Dose: 20 mg Glucose (Glucose Gel 15 Gm Gel..Gram.) 15 gm PO Q15M PRN; Protocol PRN Reason: per Hypoglycemia Standing Ord. Cefepime HCl 2 gm/ Sodium (Chloride) 50 mls @ 100 mls/hr IV Q8H [facility] Last Infusion: 10/25/23 07:13 Dose: Infused Vancomycin HCl 750 mg/ Sodium (Chloride) 265 mls @ 265 mls/hr IV Q12H [facility] Last Infusion: 10/25/23 06:23 Dose: Infused Metronidazole (Flagyl) 500 mg in 100 mls @ 100 mls/hr IV Q12H [facility] Last Infusion: 10/25/23 02:45 Dose: Infused Insulin Glargine (Insulin Glargine,Hum.Rec.Anlog 100 Unit/Ml 10 Ml Vial) 25 unit SUBCUT DAILY [facility] Insulin Human Lispro (Insulin Lispro 100 Unit/Ml 3 Ml Vial) 0 unit SUBCUT QIDACHS [facility]; Protocol Last Admin: 10/25/23 08:02 Dose: 6 unit Magnesium Citrate (Magnesium Citrate 300 Ml Solution) 300 ml PO ONCE ONE Stop: 10/25/23 15:01 Metoprolol Succinate (Metoprolol Succinate Er 25 Mg Tab.Er.24h) 25 mg PO DAILY [facility]; Protocol Last Admin: 10/25/23 08:01 Dose: 25 mg Ondansetron HCl (Ondansetron Hcl 4 Mg/2 Ml Vial) 4 mg IVPUSH Q8H PRN PRN Reason: Nausea and Vomiting Pantoprazole Sodium (Pantoprazole Sodium 40 Mg/10 Ml Vial) 40 mg IVPUSH DAILY@0630 [facility] Last Admin: 10/25/23 04:53 Dose: 40 mg Pharmacy Consult (Consult Rx Vancomycin Dosing) 1 each MISCELLANE DAILY PRN PRN Reason: Consult order Sodium Chloride (0.9 % Sodium Chloride Flush 3 Ml Syringe) 3 ml IVFLUSH QSHIFT [facility] Last Admin: 10/25/23 09:32 Dose: 3 ml Zolpidem Tartrate (Zolpidem Tartrate 5 Mg Tablet) 5 mg PO BEDTIME PRN PRN Reason: sleep Home Medications Medication Instructions Recorded Confirmed Last Taken Type pen needle, diabetic 32 gauge x #50 ea 04/28/23 10/23/23 08/15/23 History ferrous sulfate 325 mg (65 mg 325 mg PO DAILY 08/16/23 10/23/23 2 Weeks Ago History iron) tablet ~10/09/23 omeprazole 40 mg capsule,delayed 40 mg PO DAILY@0630 08/16/23 10/23/23 2 Weeks Ago History release ~10/09/23 acetaminophen 325 mg tablet 650 mg PO Q6H PRN pain 10/23/23 10/23/23 2 Weeks Ago History ~10/09/23 Physical Exam 2 Vital Signs: Vital Signs: Last Vital Signs Temp 97.8 F 10/25/23 07:20 Pulse 82 10/25/23 07:20 Resp 18 10/25/23 07:20 BP 172/92 H 10/25/23 07:20 Pulse Ox 99 10/25/23 07:20 O2 Del Method Room Air 10/25/23 07:20 BMI result Body Mass Index 30.1 GENERAL APPEARANCE: in no acute distress, pleasant. NECK: no carotid bruit, no jugular venous distention. SKIN: no suspicious lesions, warm and dry. HEART: no murmurs, regular rate and rhythm. LUNGS: clear to auscultation bilaterally. ABDOMEN: soft, nontender. EXTREMITIES: Left foot transmetatarsal amputation currently in an Fidel wrap. PERIPHERAL PULSES: equal. NEUROLOGIC: No gross deficits, AAO X 3 Objective Labs and Meds 10/25/23 05:55 10/25/23 05:55 Lab results: Laboratory Results - last 24 hr 10/23/23 10/24/23 10/24/23 14:37 14:06 16:28 WBC RBC Hgb Hct MCV MCH MCHC RDW Plt Count MPV Absolute Nucleated RBC Nucleated RBC % (auto) Sodium Potassium Chloride Carbon Dioxide Anion Gap BUN Creatinine Estim Creat Clear Calc Estimated GFR POC Glucose 236 H Random Glucose Calcium B-Natriuretic Peptide Random Vancomycin 16.3 Crossmatch See Detail 10/24/23 10/25/23 10/25/23 19:51 05:55 07:44 WBC 8.8 RBC 3.03 L Hgb 8.4 L D Hct 25.5 L D MCV 84.2 MCH 27.7 MCHC 32.9 RDW 15.5 Plt Count 374 MPV 10.1 Absolute Nucleated RBC 0.000 Nucleated RBC % (auto) 0.0 Sodium 134 L Potassium 3.8 Chloride 103 Carbon Dioxide 21 L Anion Gap 14 BUN 14 Creatinine 1.16 Estim Creat Clear Calc 82.9 Estimated GFR > 60 POC Glucose 244 H 286 H Random Glucose 247 H Calcium 8.8 B-Natriuretic Peptide 2266 H Random Vancomycin Crossmatch 10/25/23 10:55 WBC RBC Hgb Hct MCV MCH MCHC RDW Plt Count MPV Absolute Nucleated RBC Nucleated RBC % (auto) Sodium Potassium Chloride Carbon Dioxide Anion Gap BUN Creatinine Estim Creat Clear Calc Estimated GFR POC Glucose 251 H Random Glucose Calcium B-Natriuretic Peptide Random Vancomycin Crossmatch Assessment and Plan (1) Staphylococcus aureus bacteremia: Status: Acute (2) Acute on chronic anemia: Status: Acute (3) Osteomyelitis of left foot: Status: Acute (4) Stable angina: Status: Acute (5) Essential hypertension: Status: Acute Plan [age] year gentleman with complex cardiovascular and medical issues. He has osteomyelitis of left foot status post transmetatarsal amputation with staph aureus bacteremia at this point. Repeat cultures are pending. Clinically he is stable. He is hypertensive. Add isosorbide mononitrate 30 mg once a day. Resume his metoprolol. He is currently off Plavix and Eliquis for upcoming endoscopy. He is intermediate risk for perioperative cardiovascular complications. Blood pressure should be better controlled. Postprocedure his medications should be resumed as soon as safely possible. Thank you for allowing me to participate in the care of your patient. Please feel free to contact me if you have any questions. Procedures Date of Service Date of Service: 10/25/23
[2023-10-25 14:36] LABS: Vancomycin Random 14.4 mcg/mL (15-20)
[2023-10-25] MEDS: Isosorbide Mononitrate 30 MG TAB.ER.24H PO (15:14)
[2023-10-25] MEDS: Magnesium Citrate 300 ML SOLUTION PO (15:16)
[2023-10-25] MEDS: vancomycin HCL 1,000 MG in 0.9 % Sodium Chloride 250 ML 270 MG IV (15:22)
[2023-10-25 16:41] LABS: Glucose, Whole Blood 168 mg/dL (60-115)
[2023-10-25 20:01] LABS: Glucose, Whole Blood 155 mg/dL (60-115)
[2023-10-25] MEDS: bisacodyL 5 MG TABLET.DR 10 MG PO (20:19)
[2023-10-26] MEDS: 0.9 % Sodium Chloride Flush 3 ML SYRINGE IVFLUSH (00:29)
[2023-10-26] MEDS: metroNIDAZOLE/NS 500 MG/100 ML PIGGYBACK 100 MG IV (00:41)
[2023-10-26 03:13] VITALS: BP 159/83; PULSE 80; RESP 20; TEMP 36.9; O2SAT 97
[2023-10-26] MEDS: vancomycin HCL 1,000 MG in 0.9 % Sodium Chloride 250 ML 270 MG IV (04:25)
[2023-10-26] MEDS: Pantoprazole Sodium 40 MG/10 ML VIAL IVPUSH (06:09)
[2023-10-26 07:05] VITALS: BP 160/84; PULSE 76; RESP 18; TEMP 36.7; O2SAT 97
[2023-10-26 07:33] LABS: Glucose, Whole Blood 126 mg/dL (60-115)
[2023-10-26 07:53] LABS: Hematocrit 27.7 % (42.0-52.0); Hemoglobin 9.2 g/dl (14.0-18.0); Mean Corpuscular HGB Conc 33.2 g/dl (31.0-36.0); Mean Corpuscular Hemoglobin 27.4 pg (27.0-33.0); Mean Corpuscular Volume 82.4 fL (80.0-98.0); Mean Platelet Volume 9.4 fL (9.4-12.4); Platelet Count 427 X10*3/uL (160-400); Red Blood Count 3.36 X10*6/uL (4.60-5.80); Red Cell Distribution Width 15.6 % (11.0-16.0); White Blood Count 8.1 X10*3/uL (4.8-10.8)
--- NOTE | 2023-10-26 08:00 | MHC.SHP ---
Pre-Procedural Eval Section A - 24 Hr Update-Section A only Date of Service: 10/26/23 The patient is an INPATIENT: Yes Changes since office visit: Yes New Medical Problems, Yes Changes in Medication and Yes Patient answered all questions; No Cold of Flu in the past 2 weeks The patient has been examined within 24 hours of the surgical procedure. The History & Physical has been completed within 30 days and I have reviewed it.: Yes Section B - Complete if H&P > 30 days Chief Complaint: Colon cancer screening, BRIA, chronic diarrhea Allergies: Allergies Allergy/AdvReac Type Severity Reaction Status Date / Time No Known Allergies Allergy Verified 10/23/23 13:25 Plan Diagnosis/Plan: Unchanged I have reviewed the history and physical and performed a pertinent physical examination on my patient. No changes have occurred unless specified. Time Spent With Patient Time: Total time managing care of this patient today ____ minutes.
[2023-10-26 08:06] LABS: Anion Gap 13 (12-20); Blood Urea Nitrogen 10 mg/dL (9-16); Carbon Dioxide 23 mmol/L (22-29); Chloride 103 mmol/L (96-108); Creatinine Clr Calc Pharmacy 99.1; Estimated Glomerular Filt Rate > 60; Glucose Random 143 mg/dL (60-115); Potassium 3.6 mmol/L (3.3-5.1); Sodium 135 mmol/L (135-145)
[2023-10-26 08:28] LABS: Glucose, Whole Blood 151 mg/dL (60-115)
--- NOTE | 2023-10-26 09:06 | HO.ANESPROP2 ---
[facility] Active Problems Active Problems: All Active Problems (Updated 10/25/23 @ 12:04 by Kd Pichardo MD) Essential hypertension (Acute) Stable angina (Acute) Staphylococcus aureus bacteremia (Acute) Acute on chronic anemia (Acute) Osteomyelitis of left foot (Acute) Acute hyponatremia (Acute) Infected surgical wound (Acute) Anemia in chronic illness (Acute) Acute febrile illness (Acute) Inguinal adenopathy (Acute) Diabetic infection of left foot (Acute) Pre-op examination (Acute) Anemia (Acute) Erectile dysfunction (Acute) LVH (left ventricular hypertrophy) (Acute) Tobacco dependence (Acute) Insomnia (Acute) Diabetic foot infection (Acute) Chronic anticoagulation (Acute) Intellectual delay (Acute) Atherosclerotic cardiovascular disease (Acute) Cardiomyopathy (Acute) Encounter for screening colonoscopy (Acute) Left ventricular ejection fraction of 40-49% (Acute) SOB (shortness of breath) on exertion (Acute) Bilateral pleural effusion (Acute) Peripheral vascular disease (Acute) Hypocalcemia (Acute) DMII (diabetes mellitus, type 2) (Acute) Osteomyelitis (Acute) Nausea and vomiting (Acute) Anemia (Acute) Abdominal bloating (Acute) GERD with esophagitis (Acute) Tendinopathy of right shoulder (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 (Acute) Thrombocytosis (Acute) Osteomyelitis (Acute) Iron deficiency (Acute) Diabetic foot ulcer (Acute) Cellulitis of foot (Acute) Hypertension (Acute) Past Medical History Medical History Left ventricular ejection fraction of 40-49% SOB (shortness of breath) on exertion Anemia DMII (diabetes mellitus, type 2) Open wound Anemia of chronic disease Peripheral vascular disease Diabetic foot ulcer Anemia Orthostatic hypotension Gangrene of toe of left foot GERD (gastroesophageal reflux disease) History of angiography PICC (peripherally inserted central catheter) in place Bacteremia Diabetic foot ulcer PAD (peripheral artery disease) Diabetes Family History Family History Other Diabetes No family history of cancer Family history of problems with anesthesia: No Surgical History Surgical History History of transmetatarsal amputation of left foot Amputated toe of right foot (11/05/20) History of Problems with Anesthesia: No Social History Social History Household Members: None Housing: Apartment Are you a primary care support representative to a significant other at home: No Do you presently have visiting nurse or other home services: No Alcohol intake: current Alcohol intake frequency: holidays/special occasions only Alcohol type: hard liquor Comment: pt still feeling the same Patient Tobacco Use Status: Former Tobacco user Tobacco use type: Cigarette Cigarette Packs Per Day: 0.5 Cigarettes Per Day: 1 Years Smoked: 15 e-Cigarette/Vaping Use: Never Used Second Hand Smoke Exposure: No Use of substances other than those prescribed or required for medical reasons: No Currently Displaying Signs/Symptoms of Drug Intoxication Withdrawal: No Have you been hit, kicked, punched, or otherwise hurt by someone within the past year? If so, by whom?: No Do you feel safe in your current relationship?: No Current Relationship Is there a partner from a previous relationship who is making you feel unsafe now?: No Are you made to feel afraid or neglected: No Are you DNR?: No Advance Directives: No Advance Directives Information Provided: No Do you have thoughts of harming others: None Do you have a plan to hurt others: No Plan Recently lost weight without trying: No Eating poorly because of decreased appetite: No Nutrition Risks: No Nutritional Risk service: No Current occupational status: unemployed Cognitive needs: No Hearing needs: No Vision needs: No Meds Allergies Allergy/AdvReac Type Severity Reaction Status Date / Time No Known Allergies Allergy Verified 10/23/23 13:25 Active Medications: Current Medications Acetaminophen (Acetaminophen 325 Mg Tablet) 650 mg PO Q6H PRN PRN Reason: Pain, Mild (Pain Scale 1-3) Last Admin: 10/24/23 20:55 Dose: 650 mg Amlodipine Besylate (Amlodipine Besylate 10 Mg Tablet) 10 mg PO DAILY [facility]; Protocol Last Admin: 10/25/23 08:01 Dose: 10 mg Atorvastatin Calcium (Atorvastatin Calcium 40 Mg Tablet) 40 mg PO DAILY [facility] Last Admin: 10/25/23 08:02 Dose: 40 mg Benzonatate (Benzonatate 100 Mg Capsule) 100 mg PO TID PRN PRN Reason: Cough Bisacodyl (Bisacodyl 5 Mg Tablet.Dr) 10 mg PO BEDTIME [facility] Last Admin: 10/25/23 20:19 Dose: 10 mg Dextrose (Dextrose 50 % 25 Gm/50 Ml Syringe) 25 gm IVPUSH Q15M PRN; Protocol PRN Reason: per Hypoglycemia Standing Ord. Ferrous Sulfate (Ferrous Sulfate 324 Mg Tablet.) 324 mg PO DAILY [facility] Last Admin: 10/24/23 08:08 Dose: 324 mg Glucose (Glucose Gel 15 Gm Gel..Gram.) 15 gm PO Q15M PRN; Protocol PRN Reason: per Hypoglycemia Standing Ord. Metronidazole (Flagyl) 500 mg in 100 mls @ 100 mls/hr IV Q12H [facility] Last Infusion: 10/26/23 02:31 Dose: Infused Vancomycin HCl 1,000 mg/ (Sodium Chloride) 270 mls @ 270 mls/hr IV Q12H [facility] Last Infusion: 10/26/23 06:33 Dose: Infused Insulin Glargine (Insulin Glargine,Hum.Rec.Anlog 100 Unit/Ml 10 Ml Vial) 25 unit SUBCUT DAILY [facility] Insulin Human Lispro (Insulin Lispro 100 Unit/Ml 3 Ml Vial) 0 unit SUBCUT QIDACHS [facility]; Protocol Last Admin: 10/26/23 07:38 Dose: Not Given Isosorbide Mononitrate (Isosorbide Mononitrate 30 Mg Tab.Er.24h) 30 mg PO DAILY [facility]; Protocol Last Admin: 10/25/23 15:14 Dose: 30 mg Metoprolol Succinate (Metoprolol Succinate Er 25 Mg Tab.Er.24h) 25 mg PO DAILY [facility]; Protocol Last Admin: 10/25/23 08:01 Dose: 25 mg Ondansetron HCl (Ondansetron Hcl 4 Mg/2 Ml Vial) 4 mg IVPUSH Q8H PRN PRN Reason: Nausea and Vomiting Pantoprazole Sodium (Pantoprazole Sodium 40 Mg/10 Ml Vial) 40 mg IVPUSH DAILY@0630 [facility] Last Admin: 10/26/23 06:09 Dose: 40 mg Pharmacy Consult (Consult Rx Vancomycin Dosing) 1 each MISCELLANE DAILY PRN PRN Reason: Consult order Sodium Chloride (0.9 % Sodium Chloride Flush 3 Ml Syringe) 3 ml IVFLUSH QSHIFT [facility] Last Admin: 10/26/23 00:29 Dose: 3 ml Zolpidem Tartrate (Zolpidem Tartrate 5 Mg Tablet) 5 mg PO BEDTIME PRN PRN Reason: sleep Home Medications Medication Instructions Recorded Confirmed Last Taken Type pen needle, diabetic 32 gauge x #50 ea 04/28/23 10/23/23 08/15/23 History ferrous sulfate 325 mg (65 mg 325 mg PO DAILY 08/16/23 10/23/23 2 Weeks Ago History iron) tablet ~10/09/23 omeprazole 40 mg capsule,delayed 40 mg PO DAILY@0630 08/16/23 10/23/23 2 Weeks Ago History release ~10/09/23 acetaminophen 325 mg tablet 650 mg PO Q6H PRN pain 10/23/23 10/23/23 2 Weeks Ago History ~10/09/23 Exam Height,Weight and Vital Signs: Height 5 ft 8 in Weight 89.8 kg Last Vital Signs Temp 98.0 F 10/26/23 07:05 Pulse 76 10/26/23 07:05 Resp 18 10/26/23 07:05 BP 160/84 H 10/26/23 07:05 Pulse Ox 97 10/26/23 07:05 O2 Del Method Room Air 10/26/23 07:05 Pertinent Lab Results Pertinent Lab Results: Laboratory Tests 10/23/23 10/23/23 10/23/23 14:37 14:50 20:13 WBC 13.2 H RBC 2.25 L Hgb 6.1 L* Hct 18.7 L* MCV 83.1 MCH 27.1 MCHC 32.6 RDW 15.6 Plt Count 366 MPV 10.2 Immature Gran % (Auto) 0.6 H Neut % (Auto) 81.0 H Lymph % (Auto) 6.3 L Tucker % (Auto) 10.3 Eos % (Auto) 1.4 Baso % (Auto) 0.4 Lymph # (Auto) 0.8 L Tucker # (Auto) 1.4 H Eos # (Auto) 0.2 Baso # (Auto) 0.1 Abs Immat Gran (auto) 0.08 H Absolute Neuts (auto) 10.7 H Absolute Nucleated RBC 0.000 Nucleated RBC % (auto) 0.0 ESR > 140 H PT 13.6 H INR 1.1 Sodium 129 L Potassium 4.3 Chloride 100 Carbon Dioxide 20 L Anion Gap 13 BUN 18 H Creatinine 1.30 Estim Creat Clear Calc 74.3 Estimated GFR 58 POC Glucose Random Glucose 338 H Estimat Average Glucose Hemoglobin A1c % Lactic Acid 1.3 Calcium 8.8 Magnesium 1.7 Total Bilirubin 0.4 Direct Bilirubin 0.2 AST 18 ALT 12 Alkaline Phosphatase 92 Troponin I High Sens 47.3 H 44.7 H C-Reactive Protein 21.25 H B-Natriuretic Peptide 1665 H Total Protein 6.7 Albumin 2.7 L Lipase 12 Procalcitonin 0.20 Urine Color Urine Appearance Urine pH Ur Specific [place] Urine Protein Urine Glucose (UA) Urine Ketones Urine Blood Urine Nitrite Ur Leukocyte Esterase Urine RBC Urine WBC Ur Squamous Epith Cells Urine Bacteria Hyaline Casts Stool Occult Blood Random Vancomycin COVID-19 (DELIA) Negative COVID-19 Clin Com See Note Influenza Type A (TALIA) Negative Influenza Type B (TALIA) Negative Influenza A & B Note See Note Blood Type A Positive Antibody Screen NEGATIVE Crossmatch See Detail 10/23/23 10/23/23 10/23/23 21:31 23:00 23:16 WBC RBC Hgb Hct MCV MCH MCHC RDW Plt Count MPV Immature Gran % (Auto) Neut % (Auto) Lymph % (Auto) Tucker % (Auto) Eos % (Auto) Baso % (Auto) Lymph # (Auto) Tucker # (Auto) Eos # (Auto) Baso # (Auto) Abs Immat Gran (auto) Absolute Neuts (auto) Absolute Nucleated RBC Nucleated RBC % (auto) ESR PT INR Sodium Potassium Chloride Carbon Dioxide Anion Gap BUN Creatinine Estim Creat Clear Calc Estimated GFR POC Glucose 351 H* 307 H Random Glucose Estimat Average Glucose Hemoglobin A1c % Lactic Acid Calcium Magnesium Total Bilirubin Direct Bilirubin AST ALT Alkaline Phosphatase Troponin I High Sens C-Reactive Protein B-Natriuretic Peptide Total Protein Albumin Lipase Procalcitonin Urine Color Urine Appearance Urine pH Ur Specific [place] Urine Protein Urine Glucose (UA) Urine Ketones Urine Blood Urine Nitrite Ur Leukocyte Esterase Urine RBC Urine WBC Ur Squamous Epith Cells Urine Bacteria Hyaline Casts Stool Occult Blood NEGATIVE Random Vancomycin COVID-19 (DELIA) COVID-19 Clin Com Influenza Type A (TALIA) Influenza Type B (TALIA) Influenza A & B Note Blood Type Antibody Screen Crossmatch 10/24/23 10/24/23 10/24/23 06:16 07:11 07:41 WBC 9.7 RBC 2.53 L Hgb 6.9 L* Hct 21.1 L MCV 83.4 MCH 27.3 MCHC 32.7 RDW 15.5 Plt Count 330 MPV 10.0 Immature Gran % (Auto) Neut % (Auto) Lymph % (Auto) Tucker % (Auto) Eos % (Auto) Baso % (Auto) Lymph # (Auto) Tucker # (Auto) Eos # (Auto) Baso # (Auto) Abs Immat Gran (auto) Absolute Neuts (auto) Absolute Nucleated RBC 0.000 Nucleated RBC % (auto) 0.0 ESR PT INR Sodium 133 L Potassium 4.0 Chloride 103 Carbon Dioxide 19 L Anion Gap 15 BUN 17 H Creatinine 1.30 Estim Creat Clear Calc 74.0 Estimated GFR 58 POC Glucose 258 H Random Glucose 261 H Estimat Average Glucose 189 Hemoglobin A1c % 8.2 H Lactic Acid Calcium 8.9 Magnesium Total Bilirubin Direct Bilirubin AST ALT Alkaline Phosphatase Troponin I High Sens C-Reactive Protein B-Natriuretic Peptide Total Protein Albumin Lipase Procalcitonin Urine Color Dark Yellow Urine Appearance Clear Urine pH 5.5 Ur Specific [place] 1.020 Urine Protein 300 (3+) H Urine Glucose (UA) 500 H Urine Ketones Trace Urine Blood Small (1+) H Urine Nitrite Negative Ur Leukocyte Esterase Negative Urine RBC 6-10 H Urine WBC 0-5 Ur Squamous Epith Cells 0-2 Urine Bacteria None Seen Hyaline Casts 3-5 Stool Occult Blood Random Vancomycin COVID-19 (DELIA) COVID-19 Clin Com Influenza Type A (TALIA) Influenza Type B (TALIA) Influenza A & B Note Blood Type Antibody Screen Crossmatch 10/24/23 10/24/23 10/24/23 11:20 14:06 16:28 WBC RBC Hgb Hct MCV MCH MCHC RDW Plt Count MPV Immature Gran % (Auto) Neut % (Auto) Lymph % (Auto) Tucker % (Auto) Eos % (Auto) Baso % (Auto) Lymph # (Auto) Tucker # (Auto) Eos # (Auto) Baso # (Auto) Abs Immat Gran (auto) Absolute Neuts (auto) Absolute Nucleated RBC Nucleated RBC % (auto) ESR PT INR Sodium Potassium Chloride Carbon Dioxide Anion Gap BUN Creatinine Estim Creat Clear Calc Estimated GFR POC Glucose 216 H 236 H Random Glucose Estimat Average Glucose Hemoglobin A1c % Lactic Acid Calcium Magnesium Total Bilirubin Direct Bilirubin AST ALT Alkaline Phosphatase Troponin I High Sens C-Reactive Protein B-Natriuretic Peptide Total Protein Albumin Lipase Procalcitonin Urine Color Urine Appearance Urine pH Ur Specific [place] Urine Protein Urine Glucose (UA) Urine Ketones Urine Blood Urine Nitrite Ur Leukocyte Esterase Urine RBC Urine WBC Ur Squamous Epith Cells Urine Bacteria Hyaline Casts Stool Occult Blood Random Vancomycin 16.3 COVID-19 (DELIA) COVID-19 Clin Com Influenza Type A (TALIA) Influenza Type B (TALIA) Influenza A & B Note Blood Type Antibody Screen Crossmatch 10/24/23 10/25/23 10/25/23 19:51 05:55 07:44 WBC 8.8 RBC 3.03 L Hgb 8.4 L D Hct 25.5 L D MCV 84.2 MCH 27.7 MCHC 32.9 RDW 15.5 Plt Count 374 MPV 10.1 Immature Gran % (Auto) Neut % (Auto) Lymph % (Auto) Tucker % (Auto) Eos % (Auto) Baso % (Auto) Lymph # (Auto) Tucker # (Auto) Eos # (Auto) Baso # (Auto) Abs Immat Gran (auto) Absolute Neuts (auto) Absolute Nucleated RBC 0.000 Nucleated RBC % (auto) 0.0 ESR PT INR Sodium 134 L Potassium 3.8 Chloride 103 Carbon Dioxide 21 L Anion Gap 14 BUN 14 Creatinine 1.16 Estim Creat Clear Calc 82.9 Estimated GFR > 60 POC Glucose 244 H 286 H Random Glucose 247 H Estimat Average Glucose Hemoglobin A1c % Lactic Acid Calcium 8.8 Magnesium Total Bilirubin Direct Bilirubin AST ALT Alkaline Phosphatase Troponin I High Sens C-Reactive Protein B-Natriuretic Peptide 2266 H Total Protein Albumin Lipase Procalcitonin Urine Color Urine Appearance Urine pH Ur Specific [place] Urine Protein Urine Glucose (UA) Urine Ketones Urine Blood Urine Nitrite Ur Leukocyte Esterase Urine RBC Urine WBC Ur Squamous Epith Cells Urine Bacteria Hyaline Casts Stool Occult Blood Random Vancomycin COVID-19 (DELIA) COVID-19 Clin Com Influenza Type A (TALIA) Influenza Type B (TALIA) Influenza A & B Note Blood Type Antibody Screen Crossmatch 10/25/23 10/25/23 10/25/23 10:55 14:11 16:36 WBC RBC Hgb Hct MCV MCH MCHC RDW Plt Count MPV Immature Gran % (Auto) Neut % (Auto) Lymph % (Auto) Tucker % (Auto) Eos % (Auto) Baso % (Auto) Lymph # (Auto) Tucker # (Auto) Eos # (Auto) Baso # (Auto) Abs Immat Gran (auto) Absolute Neuts (auto) Absolute Nucleated RBC Nucleated RBC % (auto) ESR PT INR Sodium Potassium Chloride Carbon Dioxide Anion Gap BUN Creatinine Estim Creat Clear Calc Estimated GFR POC Glucose 251 H 168 H Random Glucose Estimat Average Glucose Hemoglobin A1c % Lactic Acid Calcium Magnesium Total Bilirubin Direct Bilirubin AST ALT Alkaline Phosphatase Troponin I High Sens C-Reactive Protein B-Natriuretic Peptide Total Protein Albumin Lipase Procalcitonin Urine Color Urine Appearance Urine pH Ur Specific [place] Urine Protein Urine Glucose (UA) Urine Ketones Urine Blood Urine Nitrite Ur Leukocyte Esterase Urine RBC Urine WBC Ur Squamous Epith Cells Urine Bacteria Hyaline Casts Stool Occult Blood Random Vancomycin 14.4 L COVID-19 (DELIA) COVID-19 Clin Com Influenza Type A (TALIA) Influenza Type B (TALIA) Influenza A & B Note Blood Type Antibody Screen Crossmatch 10/25/23 10/26/23 10/26/23 19:15 07:08 07:18 WBC 8.1 RBC 3.36 L Hgb 9.2 L Hct 27.7 L MCV 82.4 MCH 27.4 MCHC 33.2 RDW 15.6 Plt Count 427 H MPV 9.4 Immature Gran % (Auto) Neut % (Auto) Lymph % (Auto) Tucker % (Auto) Eos % (Auto) Baso % (Auto) Lymph # (Auto) Tucker # (Auto) Eos # (Auto) Baso # (Auto) Abs Immat Gran (auto) Absolute Neuts (auto) Absolute Nucleated RBC 0.000 Nucleated RBC % (auto) 0.0 ESR PT INR Sodium 135 Potassium 3.6 Chloride 103 Carbon Dioxide 23 Anion Gap 13 BUN 10 Creatinine 0.97 Estim Creat Clear Calc 99.1 Estimated GFR > 60 POC Glucose 155 H 126 H Random Glucose 143 H Estimat Average Glucose Hemoglobin A1c % Lactic Acid Calcium 9.0 Magnesium Total Bilirubin Direct Bilirubin AST ALT Alkaline Phosphatase Troponin I High Sens C-Reactive Protein B-Natriuretic Peptide Total Protein Albumin Lipase Procalcitonin Urine Color Urine Appearance Urine pH Ur Specific [place] Urine Protein Urine Glucose (UA) Urine Ketones Urine Blood Urine Nitrite Ur Leukocyte Esterase Urine RBC Urine WBC Ur Squamous Epith Cells Urine Bacteria Hyaline Casts Stool Occult Blood Random Vancomycin COVID-19 (DELIA) COVID-19 Clin Com Influenza Type A (TALIA) Influenza Type B (TALIA) Influenza A & B Note Blood Type Antibody Screen Crossmatch 10/26/23 08:18 WBC RBC Hgb Hct MCV MCH MCHC RDW Plt Count MPV Immature Gran % (Auto) Neut % (Auto) Lymph % (Auto) Tucker % (Auto) Eos % (Auto) Baso % (Auto) Lymph # (Auto) Tucker # (Auto) Eos # (Auto) Baso # (Auto) Abs Immat Gran (auto) Absolute Neuts (auto) Absolute Nucleated RBC Nucleated RBC % (auto) ESR PT INR Sodium Potassium Chloride Carbon Dioxide Anion Gap BUN Creatinine Estim Creat Clear Calc Estimated GFR POC Glucose 151 H Random Glucose Estimat Average Glucose Hemoglobin A1c % Lactic Acid Calcium Magnesium Total Bilirubin Direct Bilirubin AST ALT Alkaline Phosphatase Troponin I High Sens C-Reactive Protein B-Natriuretic Peptide Total Protein Albumin Lipase Procalcitonin Urine Color Urine Appearance Urine pH Ur Specific [place] Urine Protein Urine Glucose (UA) Urine Ketones Urine Blood Urine Nitrite Ur Leukocyte Esterase Urine RBC Urine WBC Ur Squamous Epith Cells Urine Bacteria Hyaline Casts Stool Occult Blood Random Vancomycin COVID-19 (DELIA) COVID-19 Clin Com Influenza Type A (TALIA) Influenza Type B (TALIA) Influenza A & B Note Blood Type Antibody Screen Crossmatch Airway Mallampati Class: II TM Dist: >3cm Neck ROM: Full Heart: RRR Lungs: CTA Assessment and Plan Assessment Anesthesia Assessment: Anesthesia Plan Discussed and Smoking Cess. Discussed Final Anesthetic Review Family History of Problems with Anesthesia: No History of Problems with Anesthesia: No NPO: Yes ASA Class: IV and Emergency Final Preanesthetic Review: Meds/Allgs Chart Reviewed, Consent Obtained/Reviewed and Anes Risks/Benef Reviewed Patient Risk: Intermediate Procedure Risk: Low Anesthetic Plan Anesthetic Plan: MAC: Disposition: Standard PACU
[2023-10-26 09:08] VITALS: O2SAT 95
--- NOTE | 2023-10-26 09:33 | P.OP_ITS ---
Operative Note Operative Note Date of Service: 10/26/23 Narrative: FLEXIBLE TRANSORAL UPPER GASTROINTESTINAL ENDOSCOPY WITH BIOPSIES AND COLONOSCOPY TILL CECUM WITH SNARE POLYPECTOMY, SUBMUCOSAL INJECTION AND HEMOCLIP PLACEMENT Pre-op diagnosis: Colon cancer screening, iron-deficiency anemia, chronic diarrhea Post-op diagnosis: Gastritis, duodenal nodules, colon polyps, diverticulosis, hemorrhoids? Endoscopist:? Dick Beauchamp MD Anesthesia:?MAC UPPER ENDOSCOPY Consent: Indications for the procedure and potential complications of bleeding, perforation, reaction to medications and missed diagnosis were discussed with the patient and informed consent was obtained. Instrument: Olympus GIF H 190 mid size upper endoscope Monitoring: Vital signs and clinical assessment, continuous EKG monitoring, Pulse oximetry, Carbon Dioxide monitoring and blood pressure monitoring were done throughout the procedure. Procedure: The patient was placed in the left lateral decubitis position and pre-procedure medications were administered and a bite block was placed. The endoscope was inserted into the mouth and advanced under direct vision to the third part of duodenum. A careful inspection was made as the upper endoscope was withdrawn including a retroflexed examination of the proximal stomach; Findings and interventions are described below. Findings: Larynx: Normal Esophagus: GE junction at 40 cms. No esophagitis or Hines's. Stomach: Mild gastric erythema with nodular appearing gastric mucosa in the gastric body. Biopsies were obtained from the gastric body and antrum. Grade 2 flap valve on retroflexed examination of the cardia. Duodenum: Multiple 5 to 10 mm benign appearing nodule in the apex of the bulb - biopsied. Normal descending duodenum - biopsies were obtained from the 3rd part of duodenum to check for celiac sprue Intervention: Biopsies as noted above COLONOSCOPY PROCEDURE NOTE Consent: Indications for the procedure and potential complications of bleeding, perforation, reaction to medications and missed diagnosis were discussed with the patient and informed consent was obtained. Instrument: Olympus CF H 190 L variable stiffness adult colonoscope Monitoring: Vital signs and clinical assessment, intermittent blood pressure monitoring, continuous EKG monitoring, Pulse oximetry and Carbon Dioxide monitoring were done throughout the procedure. Colon withdrawl time was 40 minutes. Procedure: The patient was placed in the left lateral decubitis position and pre-procedure medications were administered. After a digital rectal examination of the ano-rectum, the video colonoscope was inserted into the rectum and advanced through the colon to the cecum. The colonoscope was slowly withdrawn in a retrograde panoramic fashion and the colon mucosa was carefully examined including a retroflexed view of the rectum. Findings and interventions are described below. Procedure Difficulty: : Colon was long and there was excessive spasm and some loop formation Findings: Terminal Ileum: Distal 8 to 10 cms was examined and appeared normal Cecum: Normal Ascending Colon: A 15 mm sessile polyp in the distal AC at 65 cms. Polyp was raised with 5 cc of Eleview and removed with a hot snare. Polypectomy site was closed with two hemoclips Two 10 to 12 mm sessile polyps in the distal AC - removed with a hot snare Transverse Colon: Normal Descending Colon: A 15 - 18 mm sessile polyp - removed with a hot snare. Polypectomy site was closed with 1 hemoclip. Moderate diverticulosis Sigmoid Colon: Moderate diverticulosis Rectum: A 10 mm sessile polyp - removed with a hot snare. Polypectomy site was closed with 1 hemoclip Ano-rectum: Small internal hemorrhoids Colon preparation: Good after copious irrigation Impression and Post Procedure Diagnosis: Endoscopy Findings: STOMACH: Mild gastric erythema with nodular appearing gastric mucosa in the gastric body. Biopsies were obtained from the gastric body and antrum. DUODENUM: Multiple 5 to 10 mm benign appearing nodule in the apex of the bulb - biopsied. Normal descending duodenum - biopsies were obtained from the 3rd part of duoden um to check for celiac sprue Colonoscopy Findings: Five medium sized polyps removed Moderate diverticulosis seen in the left colon Small hemorrhoids on retroflexed exam. No clear source found for BRIA - ? intermittent blood loss from polyps Plan: Ok to resume a diabetic diet. Resume Eliquis on 10/27/23 I will send a letter with pathology results. If biopsies are normal and pt has recurrent anemia, consider further evaluation with a Capsule Endoscopy as an outpatient. Patient has an appointment on 01/26/24 in the GI Clinic with Deborah Ramsey NP. Repeat Colonoscopy interval based on path results - in 3 years if polyps are adenomatous and 10 years if polyps are hyperplastic. Of note - pt left the hospital AMA after he had the EGD and Colon BIOPSIES SHOWED: A. Colon, ascending at 65 cm, polypectomies (2): Fragments of tubular adenomata; negative for high grade dysplasia or carcinoma. B. Colon, random, biopsy: Colonic mucosa within normal limits; negative for microscopic colitis. C. Colon, descending, polypectomy: Hyperplastic mucosal polyp. D. Colon, left, biopsy: Colonic mucosa within normal limits; negative for microscopic colitis. E. Rectum, polypectomy: Hyperplastic mucosal polyp. F. Small bowel, biopsy: Small intestinal mucosa within normal limits; negative for celiac disease. G. 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 H. Stomach, antrum, biopsy: Antral-type mucosa with mild chronic inactive inflammation; no Helicobacter organisms seen. I. Stomach, body, biopsy: Oxyntic mucosa within normal limits; no Helicobacter organisms seen
[2023-10-26 10:00] VITALS: BP 107/70; PULSE 70; RESP 16; TEMP 36.4; O2SAT 97
[2023-10-26 10:15] VITALS: BP 154/83; PULSE 79; RESP 20; TEMP 36.4; O2SAT 99
[2023-10-26] MEDS: Isosorbide Mononitrate 30 MG TAB.ER.24H PO (10:44)
[2023-10-26] MEDS: Metoprolol Succinate ER 25 MG TAB.ER.24H PO (10:45)
[2023-10-26] MEDS: Insulin Glargine,Hum.rec.anlog 100 UNIT/ML 10 ML VIAL 25 UNIT SUBCUT (10:45)
[2023-10-26] MEDS: Atorvastatin Calcium 40 MG TABLET PO (10:45)
[2023-10-26] MEDS: Ferrous Sulfate 324 MG TABLET.DR PO (10:45)
[2023-10-26] MEDS: amLODIPine Besylate 10 MG TABLET PO (10:45)
--- NOTE | 2023-10-26 11:08 | MHC.CM.PN ---
Per ROUNDS discussion, Patient will have a BKA today and will need a PT Eval to assist with disposition. CM will follow.
[2023-10-26 11:55] LABS: Glucose, Whole Blood 158 mg/dL (60-115)
[2023-10-26 12:00] VITALS: BP 161/86; PULSE 85; RESP 18; TEMP 36.3; O2SAT 96
--- NOTE | 2023-10-26 12:10 | HO.PM.IMPN ---
Subjective Subjective Date of Service: 10/26/23 Interval History: follow up for anemia, left foot wound blood cultures positive patient with no specific complaints. no chest pain, sob or abdominal pain; denies fever or chills Review of Systems Review of Systems: Yes all other systems are reviewed and are negative Constitutional Constitutional: Denies chills and Denies fever(s) Cardiovascular Cardiovascular: Denies chest pain and Denies palpitations Endocrine Endocrine: Denies palpitations Physical Exam Vital Signs: Vital Signs: Last Vital Signs Temp 97.6 F 10/26/23 10:15 Pulse 79 10/26/23 10:15 Resp 20 10/26/23 10:15 BP 154/83 H 10/26/23 10:15 Pulse Ox 99 10/26/23 10:15 O2 Del Method Room Air 10/26/23 10:15 BMI result Body Mass Index 30.1 Appearing in no acute distress lung sounds are clear to auscultation heart regular rate rhythm, clear S1, S2 positive bowel sounds, abdomen is soft, nontender neuro patient is alert x3, no focal deficits Objective Data Active Medications Acetaminophen (Acetaminophen 325 Mg Tablet) 650 mg PO Q6H PRN PRN Reason: Pain, Mild (Pain Scale 1-3) Last Admin: 10/24/23 20:55 Dose: 650 mg Documented By: DOMONIQUE Amlodipine Besylate (Amlodipine Besylate 10 Mg Tablet) 10 mg PO DAILY [facility]; Protocol Last Admin: 10/26/23 10:45 Dose: 10 mg Documented By: SHERICE Atorvastatin Calcium (Atorvastatin Calcium 40 Mg Tablet) 40 mg PO DAILY [facility] Last Admin: 10/26/23 10:45 Dose: 40 mg Documented By: SHERICE Benzonatate (Benzonatate 100 Mg Capsule) 100 mg PO TID PRN PRN Reason: Cough Bisacodyl (Bisacodyl 5 Mg Tablet.) 10 mg PO BEDTIME [facility] Last Admin: 10/25/23 20:19 Dose: 10 mg Documented By: UZAIR Dextrose (Dextrose 50 % 25 Gm/50 Ml Syringe) 25 gm IVPUSH Q15M PRN; Protocol PRN Reason: per Hypoglycemia Standing Ord. Ferrous Sulfate (Ferrous Sulfate 324 Mg Tablet.) 324 mg PO DAILY [facility] Last Admin: 10/26/23 10:45 Dose: 324 mg Documented By: SHERICE Glucose (Glucose Gel 15 Gm Gel..Gram.) 15 gm PO Q15M PRN; Protocol PRN Reason: per Hypoglycemia Standing Ord. Metronidazole (Flagyl) 500 mg in 100 mls @ 100 mls/hr IV Q12H [facility] Last Infusion: 10/26/23 02:31 Dose: Infused Documented By: ARI Vancomycin HCl 1,000 mg/ (Sodium Chloride) 270 mls @ 270 mls/hr IV Q12H [facility] Last Infusion: 10/26/23 06:33 Dose: Infused Documented By: JUAN Insulin Glargine (Insulin Glargine,Hum.Rec.Anlog 100 Unit/Ml 10 Ml Vial) 25 unit SUBCUT DAILY [facility] Last Admin: 10/26/23 10:45 Dose: 25 unit Documented By: SHERICE Insulin Human Lispro (Insulin Lispro 100 Unit/Ml 3 Ml Vial) 0 unit SUBCUT QIDACHS [facility]; Protocol Last Admin: 10/26/23 07:38 Dose: Not Given Documented By: SHERICE Non-Admin Reason: No Insulin Coverage Isosorbide Mononitrate (Isosorbide Mononitrate 30 Mg Tab.Er.24h) 30 mg PO DAILY [facility]; Protocol Last Admin: 10/26/23 10:44 Dose: 30 mg Documented By: SHERICE Metoprolol Succinate (Metoprolol Succinate Er 25 Mg Tab.Er.24h) 25 mg PO DAILY [facility]; Protocol Last Admin: 10/26/23 10:45 Dose: 25 mg Documented By: SHERICE Ondansetron HCl (Ondansetron Hcl 4 Mg/2 Ml Vial) 4 mg IVPUSH Q8H PRN PRN Reason: Nausea and Vomiting Pantoprazole Sodium (Pantoprazole Sodium 40 Mg/10 Ml Vial) 40 mg IVPUSH DAILY@0630 [facility] Last Admin: 10/26/23 06:09 Dose: 40 mg Documented By: JUAN Pharmacy Consult (Consult Rx Vancomycin Dosing) 1 each MISCELLANE DAILY PRN PRN Reason: Consult order Sodium Chloride (0.9 % Sodium Chloride Flush 3 Ml Syringe) 3 ml IVFLUSH QSHIFT [facility] Last Admin: 10/26/23 09:34 Dose: Not Given Documented By: HO.RIVEJES Non-Admin Reason: Off Unit: Surgery Zolpidem Tartrate (Zolpidem Tartrate 5 Mg Tablet) 5 mg PO BEDTIME PRN PRN Reason: sleep Labs 10/26/23 07:18 10/26/23 07:18 Labs: Laboratory Results - last 24 hr 10/25/23 10/25/23 10/25/23 14:11 16:36 19:15 MCV MCH MCHC RDW Plt Count MPV Absolute Nucleated RBC Nucleated RBC % (auto) Anion Gap Estim Creat Clear Calc Estimated GFR POC Glucose 168 H 155 H Random Glucose Calcium Random Vancomycin 14.4 L 10/26/23 10/26/23 10/26/23 07:08 07:18 08:18 MCV 82.4 MCH 27.4 MCHC 33.2 RDW 15.6 Plt Count 427 H MPV 9.4 Absolute Nucleated RBC 0.000 Nucleated RBC % (auto) 0.0 Anion Gap 13 Estim Creat Clear Calc 99.1 Estimated GFR > 60 POC Glucose 126 H 151 H Random Glucose 143 H Calcium 9.0 Random Vancomycin 10/26/23 11:39 MCV MCH MCHC RDW Plt Count MPV Absolute Nucleated RBC Nucleated RBC % (auto) Anion Gap Estim Creat Clear Calc Estimated GFR POC Glucose 158 H Random Glucose Calcium Random Vancomycin Microbiology Microbiology Results: Microbiology 10/25/23 08:31 Blood Culture - Preliminary Blood - Venous No growth after 24 hours. 10/25/23 08:28 Blood Culture - Preliminary Blood - Venous No growth after 24 hours. 10/23/23 14:50 Blood Culture - Final Blood - Venous Methicillin Res Staph Aureus 10/23/23 14:36 Blood Culture - Final Blood - Venous Methicillin Res Staph Aureus Assessment and Plan (1) Acute on chronic anemia: Status: Acute (2) Osteomyelitis of left foot: Status: Acute (3) Staphylococcus aureus bacteremia: Status: Acute Plan 52-year-old male with a PMH significant for?insulin-dependent diabetes type 2, CAD s/p stent, cardiomyopathy with EF 40-45%, HTN, HLD, DVT on Eliquis, left transmetatarsal amputation 07/04/21 with subsequent osteo at amputation site s/p IV abx and recent surgery at [facility] who was sent to the ED from short-stay surgery (where he was scheduled for EGD and colonoscopy) for fever and foul smelling drainage from left amputation site Osteomyelitis of left foot with sepsis Diabetic foot infection s/p TMA Continue IV Vanco and cefepime, started 10/23/2023 and IV flagyl added 10/24 by ID seen by surgery rec GRABIEL, patient to think about it Blood cultures + as below Acute on chronic normocytic anemia H&H improved with transfusion s/p 2 units PRBCs 10/23, 1U 10/24 will hold antiplatelets and anticoagulants - resume after scope if able EGD/colo today Staph bacteremia 2/2 blood cultures growing staph aureus vancomycin sensitive Insulin-dependent diabetes type 2 with hyperglycemia presented with BS in the 300s Hba1c 8.2 Sliding-scale insulin Lantus to 25U (baseline 30 but unclear compliance) follow insulin needs and titrate as needed Diabetic diet Combined systolic and diastolic CHF BNP elevated but no respiratory symptoms Will treat with Lasix 20 mg IV Elevated troponins Initial troponin 47.3 with repeat 44.7 Patient asymptomatic without chest pain or pressure, EKG without ischemic changes Likely type 2 in the setting of increased demand Monitor on telemetry CAD s/p ZAC to LAD 03/2023 hold plavix for now, resume as soon as able was not on aspirin as per previous cardiology notes ? started by vascular Abnormal CXR CXR showed new 3.8 cm round opacity in the left lung base, suggestive of possible mass versus pneumonia Patient without respiratory complaints Being covered with antibiotics as above Follow-up outpatient with repeat CXR for resolution or for additional workup Pseudohyponatremia due to hyperglycemia GERD IV Protonix HTN Continue amlodipine and metoprolol was previously on losartan 25, consider resuming if bp remains high HLD/PAD Hold aspirin and Plavix d/t anemia and planned EGD/colonoscopy and resume as soon as able given LAD stent Continue statin Hx of DVT Hold Eliquis d/t anemia, resume when safe from GI perscpective Full Code Attending Dr. Neal DVT Prophylaxis: Pneumatic boots continue hopsital stay for treatment of?acute on chronic anemia and osteomyelitis of left foot with sepsis. Patient require IV antibiotics, specialist consultation, and transfusion with PRBCs and close monitoring of labs as well as surgical intervention . Quality Stroke Does the patient have a stroke diagnosis?: No VTE Prior VTE?: No VTE Risk Level:: Medical - moderate - high VTE Device Contraindication: N/A - Device Ordered VTE Drug Contraindication: Treatment Not Indicated
--- NOTE | 2023-10-26 12:12 | HE.PHANOTE ---
CHANGE IV METRONIDAZOLE TO PO PER POLICY/ULYSSES SOLOMON
[2023-10-26] MEDS: Insulin Lispro 100 UNIT/ML 3 ML VIAL SUBCUT (12:21)
[2023-10-26] MEDS: metroNIDAZOLE 500 MG TABLET PO (12:21)
--- NOTE | 2023-10-26 12:58 | HO.POSTANES ---
Post Anesthesia Evaluation Post Anesthesia Evaluation Date of Service: 10/26/23 Vital Signs: Vital Signs Temp Pulse Resp BP Pulse Ox O2 Del Method 10/26/23 12:00 97.4 F 85 18 161/86 H 96 Room Air 10/26/23 10:15 97.6 F 79 20 154/83 H 99 Room Air 10/26/23 10:00 97.6 F 70 16 107/70 97 Room Air 10/26/23 09:08 95 Room Air 10/26/23 07:05 98.0 F 76 18 160/84 H 97 Room Air 10/26/23 03:13 98.5 F 80 20 159/83 H 97 Room Air Anesthesia: Monitored Mental Status: Awake Pain Control: Satisfactory Nausea/Vomiting: None Hydration: Adequate Anesthesia-Related Issues: No Anes. Related Issues
--- NOTE | 2023-10-26 14:47 | P.DS_ITS ---
DS: Providers Provider Date of Service: 10/26/23 Date of admission: 10/23/23 18:55 Primary care physician: Fredy Adair PA-C Consults: 10/23/23 19:06 Consult to Infectious Diseases [place]ine [place]ing [place] [facility] Reason for consultation: Osteo of left foot s/p TMA 10/23/23 19:13 Consult to Gastroenterology Routine Consulting Provider: Dick Beauchamp Reason for consultation: Acute on chronic anemia, sent here from EGD/colonoscopy 10/25/23 09:48 Consult to Cardiology Routine Consulting Provider[place] [facility] [place] Reason for consultation: clearance for EGD/colonoscopy scheduled for 10/2610/25/23 09:49 Consult to General Surgery Routine Consulting Provider: [facility] [place] Reason for consultation: left foot infected amputation site/osteo Has provider been notified: No 10/25/23 21:20 Consult to Wound Care Routine Reason for consultation: left foot stump diabetic ulcer infection DS: Diagnosis Discharge Diagnosis (1) Acute on chronic anemia: Status: Acute (2) Osteomyelitis of left foot: Status: Acute (3) Staphylococcus aureus bacteremia: Status: Acute DS: Summary Hospital Course Hospital Course: History and physical as per admitting provider. Pt is a 52-year-old male with a PMH significant for?insulin-dependent diabetes type 2, CAD, cardiomyopathy with EF 40-45%, HTN, HLD, DVT on Eliquis, left transmetatarsal amputation 07/04/21 with subsequent osteo at amputation site who presents to the ED from short-stay prior to EGD and colonoscopy. Patient apparently presented pale, with a fever and strong foul odor coming from left foot, and short-stay surgery staff were concerned for possible infection. Labs prior to colonoscopy found H&H to be 6.4/19.5. Patient was then sent to the ED for further workup and evaluation. GI states the patient will likely be put back on the colonoscopy scheduled next week if he is stabilized. Patient himself reports he recently had debridement of his left foot wound by vascular surgery at [facility] one week prior on last Thursday. Pt was no put on antibiotics after procedure, though has noticed some pinkish discharge from the wound, mostly after walking on it. Reports minor pain in left foot with no numbness or tingling. Also states he has a long history of chronic diarrhea and vomiting for which he was to be evaluated by GI with EGD and colonoscopy today. Denies lightheadedness or dizziness, or increased fatigue. Denies hemoptysis, hematemesis, melena, hematochezia. No chest pain/pressure, palpitations. Denies shortness of breath. No fever, chills, nausea, vomiting, abdominal pain. In the ED pt was febrile up to 102.2, tachycardic up to 102, and mildly hypertensive up to 162/92. Labs were significant for increased leukocytosis of 13.6, initial H&H 6.4/19.5 with repeat 6.1/18.7, ESR>140, sodium 129, creatinine mildly elevated at 1.3, random glucose 338, initial troponin 47.3 with repeat 44.7, C-reactive protein 21.25, BNP 1665, albumin 2.7. Lactic acid WNL at 1.1. Tox screen negative. Tested negative for COVID, influenza type a and B. CXR showed new 3.8 cm round opacity in the left lung base, possibly suggestive of mass versus pneumonia. X-ray of left foot found new indistinct margin and lucency in the medial cuneiform suggestive of osteomyelitis. EKG demonstrated normal sinus rhythm with T-wave inversions in aVL, V1, and V2 but no evidence of ST elevations or depressions. Pt was treated with IVF, cefepime, vancomycin, acetaminophen, pantoprazole, and transfused 2 units of PRBCs. Pt will be admitted to the hospital for treatment and further evaluation of osteomyelitis of left foot and acute on chronic anemia. Patient wants to leave against medical advise. The patient is aware, alert, oriented to person, place and time and demonstrated understanding of the risks of leaving against medical advice including worsening of symptoms and even . All efforts were made to address his issues, but he declined to stay in the hospital to complete treatment of MRSA bacteremia and osteomyelitis. 52-year-old man treated for acute on chronic anemia likely secondary to iron deficiency, osteomyelitis of left foot with sepsis and MRSA bacteremia. Patient has a history of anemia. EGD and colonoscopy done today showing hemorrhoids and diverticulosis with no bleeding source. Biopsies taken and results will be sent patient. He can follow-up with Gastroenterology for any further examinations requiring endoscopy or colonoscopy. He did receive a total of 2 units of packed red blood cells while inpatient with stabilization of hemoglobin and hematocrit. He can resume his Eliquis on 10/27/2023. He has a history TMA to left foot, imaging showing likely osteomyelitis, BKA was discussed with him but patient has declined to give an answer as to whether he would do it. He also needs a debridement of the TMA site as well. He wants to follow-up with his vascular surgeon at [facility] who did the 1st surgery to the left foot. He was on vancomycin and cefepime while inpatient but refuses to have a PICC line placed or go to rehab for long-term antibiotics for the osteomyelitis and MRSA bacteremia. He understands that vancomycin would be the medication of choice and any alternative would not be as superior therefore will send with linezolid for 6 weeks. His was also told of the importance to report back to the emergency department if the patient develops fevers or worsening of symptoms. She was present during the interview as well as the patient's RN Ewa. . Hypoalbuminemia Patient's albumin 2.7 at time of presentation Treated with albumin Hyponatremia, resolved Sodium 129 at time of presentation Patient given IVF in ED Insulin-dependent diabetes type 2, poorly controlled Patient presents with hyperglycemia in the 300s Continue metformin and Trulicity at home Treated with Sliding-scale insulin, Lantus while inpatient Follow a Diabetic diet Heart failure with reduced ejection fraction 40-45% BNP elevated at 1665, patient with left lower leg edema Treated with IV Lasix Elevated troponins Initial troponin 47.3 with repeat 44.7 Patient asymptomatic without chest pain or pressure, EKG without ischemic changes Likely type 2 in the setting of increased demand Abnormal CXR CXR showed new 3.8 cm round opacity in the left lung base, suggestive of possible mass versus pneumonia Patient without respiratory complaints Being covered with antibiotics as above Follow-up outpatient with repeat CXR for resolution or for additional workup GERD Treated while inpatient with IV PPI, continue omeprazole at home HTN Continue amlodipine and metoprolol CAD/HLD/PAD Continue aspirin, Plavix and statin Hx of DVT Restart Eliquis 10/27/2023, post EGD and colonoscopy Time Attestation Discharge coordination time: Greater than 30 minutes Quality: Safe Use of Opioids Does Pt have an Active Cancer Diagnosis on the Problem List?: No Quality: Stroke Does the patient have a stroke diagnosis?: No Physical Exam Vital Signs: Vital Signs: Last Vital Signs Temp 97.4 F 10/26/23 12:00 Pulse 85 10/26/23 12:00 Resp 18 10/26/23 12:00 BP 161/86 H 10/26/23 12:00 Pulse Ox 96 10/26/23 12:00 O2 Del Method Room Air 10/26/23 12:00 BMI result Body Mass Index 30.1 Declined examination DS: Data Data Completed and Pending Completed studies during hospitalization [Text1]: Procedures Detachment at Left Foot, Partial 1st Ray, Open Approach (06/30/21) Detachment at Left Foot, Partial 2nd Ray, Open Approach (06/30/21) Detachment at Left Foot, Partial 3rd Ray, Open Approach (06/30/21) Detachment at Left Foot, Partial 4th Ray, Open Approach (06/30/21) Detachment at Left Foot, Partial 5th Ray, Open Approach (06/30/21) Dilation of Left Femoral Artery with Intraluminal Device, Percutaneous Approach (06/30/21) Drainage of Right Foot Skin, External Approach (05/21/22) Extirpation of Matter from Left Femoral Artery, Percutaneous Approach (06/30/21) Extirpation of Matter from Right Popliteal Artery, Percutaneous Approach (09/20/20) Fluoroscopy of Superior Vena Cava, Guidance (11/28/22) Insertion of Infusion Device into Superior Vena Cava, Percutaneous Approach (11/28/22) Transfusion of Nonautologous Red Blood Cells into Peripheral Vein, Percutaneous Approach (05/21/22) Ultrasonography of Superior Vena Cava, Guidance (05/21/22) Pending studies at discharge: Pending at discharge 10/26/23 09:07 Surgical [PTH] Routine 10/26/23 10:05 Surgical [PTH] Routine Labs on day of discharge: Laboratory Results - last 24 hr 10/25/23 10/25/23 10/26/23 16:36 19:15 07:08 WBC RBC Hgb Hct MCV MCH MCHC RDW Plt Count MPV Absolute Nucleated RBC Nucleated RBC % (auto) Sodium Potassium Chloride Carbon Dioxide Anion Gap BUN Creatinine Estim Creat Clear Calc Estimated GFR POC Glucose 168 H 155 H 126 H Random Glucose Calcium 10/26/23 10/26/23 10/26/23 07:18 08:18 11:39 WBC 8.1 RBC 3.36 L Hgb 9.2 L Hct 27.7 L MCV 82.4 MCH 27.4 MCHC 33.2 RDW 15.6 Plt Count 427 H MPV 9.4 Absolute Nucleated RBC 0.000 Nucleated RBC % (auto) 0.0 Sodium 135 Potassium 3.6 Chloride 103 Carbon Dioxide 23 Anion Gap 13 BUN 10 Creatinine 0.97 Estim Creat Clear Calc 99.1 Estimated GFR > 60 POC Glucose 151 H 158 H Random Glucose 143 H Calcium 9.0 Preliminary micro results at discharge 10/25/23 08:31 Blood Culture - Preliminary Blood - Venous No growth after 24 hours. 10/25/23 08:28 Blood Culture - Preliminary Blood - Venous No growth after 24 hours. Discharge Plan Discharge Anticipated Discharge Date/Time: 10/26/23 14:46 Patient Disposition: Left Against Medical Advice Discharge Diagnosis: MRSA bacteremia Osteomyelitis Referrals: Fredy Adair PA-C [Primary Care Provider] - 1 Week Discharge Medications: New linezolid 600 mg tablet 600 mg PO BID 42 Days Qty: 84 0RF isosorbide mononitrate 30 mg Tablet Extended Release 24 Hr 30 mg PO DAILY Qty: 30 0RF Protocol: Hold for SBP< HOLD for SBP < : 90 Continued (DME) adhesive tape 2 X 72 tape See Rx Instructions .Route Qty: 12 0RF Rx Instructions: As directed metformin 1,000 mg tablet 1,000 mg PO BID Qty: 60 3RF (DME) FreeStyle Jayla 2 [place] Misc See Rx Instructions .Route Qty: 1 0RF Rx Instructions: for continuous use (DME) FreeStyle Jayla 2 Sensor Kit See Rx Instructions .Route Qty: 2 6RF Rx Instructions: for continuous use (DME) pen needle, diabetic 32 gauge x 5/32 needle See Rx Instructions subcut .MEDSUPPLY Qty: 50 Rx Instructions: test 4 times daily (DME) pen needle, diabetic [BD Ultra-Fine Karen Pen Needle] 32 gauge x 5/32 needle See Rx Instructions .ROUTE .MEDSUPPLY Qty: 100 5RF Rx Instructions: As directed 4 times a day metoprolol succinate 25 mg tablet extended release 24 hr 25 mg PO DAILY Qty: 90 3RF insulin glargine [Lantus Solostar U-100 Insulin] 100 unit/mL (3 mL) insulin pen 30 unit subcut QAM 30 Days Qty: 15 3RF zolpidem [Ambien] 5 mg tablet 5 mg PO BEDTIME PRN (Reason: sleep) 7 Days Qty: 7 0RF atorvastatin 40 mg tablet 40 mg PO DAILY Qty: 30 0RF Trulicity 1.5 mg/0.5 mL pen injector 1.5 mg subcut GRANT@0900 28 Days Qty: 2 3RF bisacodyl [Dulcolax (bisacodyl)] 5 mg tablet,delayed release (DR/EC) 10 mg PO BEDTIME 2 Days Qty: 4 0RF aspirin 81 mg Tablet,Delayed Release (Dr/Ec) 81 mg PO DAILY Qty: 30 0RF amlodipine 10 mg Tablet 10 mg PO DAILY Qty: 30 0RF Protocol: Hold for SBP< HOLD for SBP < : 90 omeprazole 40 mg capsule,delayed release(DR/EC) 40 mg PO DAILY@0630 ferrous sulfate 325 mg (65 mg iron) tablet 325 mg PO DAILY acetaminophen 325 mg tablet 650 mg PO Q6H PRN (Reason: pain) (DME) blood pressure monitor [Blood Pressure Kit] Kit See Rx Instructions .Route Qty: 1 0RF Rx Instructions: As directed clopidogrel [Plavix] 75 mg tablet 75 mg PO DAILY Qty: 90 3RF Held Eliquis 5 mg tablet 5 mg PO BID Qty: 180 1RF Hold Instructions: Resume on 10/27/23. Rx Instructions: supposed to be taking BID but patient takes one daily Discharge Orders: Discharge Order (Routine); Ordered 10/26/23 Ordered By: Miladis Saul Diet: Advance to usual diet Activity on Discharge: As tolerated Stand Alone Forms: Patient Portal Discharge page Other Ambulatory Orders: Basic Metabolic Panel (Routine) Timeframe: 1 Week Facility: [facility] - Location: Laboratory Ordered By: Miladis Saul Care Plan Goals: Left against medical advice Health Concerns: MRSA bacteremia Osteomyelitis Plan of Treatment: Left against medical advice Follow-up with primary care provider as needed Follow-up with vascular surgeon regarding osteomyelitis to left foot Take all medications as prescribed Take 6 weeks of linezolid for MRSA bacteremia and osteomyelitis You have been started on new medication for your blood pressure called isosorbide, take as directed Assessment: See discharge summary
[2023-10-26 15:09] LABS: Vancomycin Random 15.5 mcg/mL (15-20)
[2023-10-27 20:44] LABS: Transglutaminase Ab IgG <1.0 U/mL; Transglutaminase IgA <1.0 U/mL
== END 2023-10-26 16:32 | disposition left against medical advice (07) | DRG 564 ==
LOC: HO.ED 16:33 → HO.EDOVER 19:05 → HO.IMC 19:54
PROVIDERS: Internal Medicine Gastroenterology; Physician Assistant Medical; Admitting Provider Student in an Organized Health Care Education/Training Program; Emergency Provider Emergency Medicine; PCP Physician Assistant; Visit Provider Nurse Practitioner Acute Care
PROC: 0DB98ZX Excision of Duodenum, Via Natural or Artificial Opening Endoscopic, Diagnostic (ICD-10-PCS; principal; 2023-10-26 15:10)
DX: T87.44 Infection of amputation stump, left lower extremity (principal); A41.9 Sepsis, unspecified organism; D60.9 Acquired pure red cell aplasia, unspecified; M86.9 Osteomyelitis, unspecified; I96 Gangrene, not elsewhere classified; Y83.5 Amputation of limb(s) as the cause of abnormal reaction of the patient, or of later complication, without mention of misadventure at the time of the procedure; K29.70 Gastritis, unspecified, without bleeding; D13.2 Benign neoplasm of duodenum; K63.5 Polyp of colon; K57.30 Diverticulosis of large intestine without perforation or abscess without bleeding; E11.51 Type 2 diabetes mellitus with diabetic peripheral angiopathy without gangrene; R91.1 Solitary pulmonary nodule; K64.9 Unspecified hemorrhoids; I25.118 Atherosclerotic heart disease of native coronary artery with other forms of angina pectoris; K21.9 Gastro-esophageal reflux disease without esophagitis; B95.61 Methicillin susceptible Staphylococcus aureus infection as the cause of diseases classified elsewhere; Z20.822 Contact with and (suspected) exposure to COVID-19; Z87.891 Personal history of nicotine dependence; Z86.718 Personal history of other venous thrombosis and embolism; Z79.4 Long term (current) use of insulin; Z79.01 Long term (current) use of anticoagulants; Z79.84 Long term (current) use of oral hypoglycemic drugs; Z79.899 Other long term (current) drug therapy
CPT/HCPCS: 36415; 71045; 73630; 80048; 80076; 80202; 80307; 81001; 82272; 82947; 83036; 83605; 83690; 83735; 83880; 84145; 84484; 85025; 85027; 85610; 85652; 86140; 86364; 86850; 86900; 86901; 86923; 87040; 87077; 87147; 87186; 87205; 87502; 87635; 88305; 88313; 88342; 93005; 99285; C9113; J0692; J1836; J1940; J2704; J3370; P9016; P9047

== ENCOUNTER → 2023-10-23 14:18 | Outpatient (BNV) | payer OTHER, SELFPAY | PROVIDERS: Admitting Provider Student in an Organized Health Care Education/Training Program; Emergency Provider Emergency Medicine; PCP Physician Assistant; Visit Provider Internal Medicine Cardiovascular Disease | DX: R94.31 Abnormal electrocardiogram [ECG] [EKG] (principal) | CPT/HCPCS: 93010 ==

== ENCOUNTER → 2023-10-23 18:55 | Outpatient (BNV) | payer OTHER, SELFPAY | PROVIDERS: Admitting Provider Student in an Organized Health Care Education/Training Program; Emergency Provider Emergency Medicine; PCP Physician Assistant; Visit Provider Internal Medicine | DX: M86.9 Osteomyelitis, unspecified (principal) | CPT/HCPCS: 99222 ==

== ENCOUNTER → 2023-10-23 18:55 | Outpatient (BNV) | payer OTHER, SELFPAY | PROVIDERS: Admitting Provider Student in an Organized Health Care Education/Training Program; Emergency Provider Emergency Medicine; PCP Physician Assistant; Visit Provider Internal Medicine Gastroenterology | DX: D50.9 Iron deficiency anemia, unspecified (principal); K21.00 Gastro-esophageal reflux disease with esophagitis, without bleeding; K29.70 Gastritis, unspecified, without bleeding; K31.7 Polyp of stomach and duodenum; Z12.11 Encounter for screening for malignant neoplasm of colon; K63.5 Polyp of colon; K58.9 Irritable bowel syndrome, unspecified; K57.90 Diverticulosis of intestine, part unspecified, without perforation or abscess without bleeding | CPT/HCPCS: 43239; 45381; 45385 ==

== ENCOUNTER → 2023-10-23 18:55 | Outpatient (BNV) | payer OTHER, SELFPAY | PROVIDERS: Admitting Provider Student in an Organized Health Care Education/Training Program; Emergency Provider Emergency Medicine; PCP Physician Assistant; Visit Provider Internal Medicine Cardiovascular Disease | DX: R78.81 Bacteremia (principal); B95.61 Methicillin susceptible Staphylococcus aureus infection as the cause of diseases classified elsewhere; D64.9 Anemia, unspecified; M86.9 Osteomyelitis, unspecified; I20.89 Other forms of angina pectoris; I10 Essential (primary) hypertension | CPT/HCPCS: 99223 ==

== ENCOUNTER → 2023-10-23 18:55 | Outpatient (BNV) | payer OTHER, SELFPAY | PROVIDERS: Admitting Provider Student in an Organized Health Care Education/Training Program; Emergency Provider Emergency Medicine; PCP Physician Assistant; Visit Provider Surgery | DX: M86.9 Osteomyelitis, unspecified (principal); T81.49XA Infection following a procedure, other surgical site, initial encounter | CPT/HCPCS: 99223 ==

== ENCOUNTER → 2023-10-23 18:55 | Outpatient (BNV) | payer OTHER, SELFPAY | PROVIDERS: Admitting Provider Student in an Organized Health Care Education/Training Program; Emergency Provider Emergency Medicine; PCP Physician Assistant; Visit Provider Student in an Organized Health Care Education/Training Program | DX: D64.9 Anemia, unspecified (principal); M86.9 Osteomyelitis, unspecified; R78.81 Bacteremia; B95.61 Methicillin susceptible Staphylococcus aureus infection as the cause of diseases classified elsewhere; E11.65 Type 2 diabetes mellitus with hyperglycemia | CPT/HCPCS: 99223; 99233; 99239 ==

== ENCOUNTER 2023-12-23 10:41 | Outpatient (AMB) | payer OTHER, SELFPAY ==
--- NOTE | 2023-12-23 11:31 | A.OFFPC_ITS ---
Vital Signs 12/23/23 11:33 Height 5 ft 8 in Weight 209 lb BMI 31.8 BP 158/90 H Blood Pressure Location Lt brachial Position Sitting Respiration 16 Pulse 88 Pulse Source Pulse Oximeter Pulse Oximetry (%) 99 Oxygen Delivery Method Room Air Intake Visit Reasons: [facility] treatment Floor Surfacer Required: No Accompanied by: Self / Same As Patient Allergies No Known Allergies Allergy (Verified 12/23/23 12:06) Medication List - Last Reconciled 12/23/23 by Fredy Adair PA-C acetaminophen 650 mg PO Q6H PRN adhesive tape As directed amlodipine 10 mg See Protocol PO DAILY apixaban (Eliquis) 5 mg PO BID aspirin 81 mg PO DAILY atorvastatin 40 mg PO DAILY bisacodyl (Dulcolax (bisacodyl)) 10 mg (2 x 5 mg) PO BEDTIME 2 days blood pressure monitor (Blood Pressure Kit) As directed clonidine HCl 0.1 mg PO BID dulaglutide (Trulicity) 1.5 mg (0.5 mL) subcut GRANT@0900 4 weeks ferrous sulfate 325 mg PO DAILY flash glucose scanning reader (SoicosStyle Jayla 2 [place]) for continuous use flash glucose sensor (FreeStyle Jayla 2 Sensor kit) for continuous use insulin glargine (Lantus Solostar U-100 Insulin) 30 units (0.3 mL) subcut QAM 30 days isosorbide mononitrate ER 30 mg See Protocol PO DAILY losartan 100 mg PO DAILY metformin 1,000 mg PO BID metoprolol succinate ER 25 mg PO DAILY omeprazole 40 mg PO DAILY@0630 pen needle, diabetic test 4 times daily pen needle, diabetic (BD Ultra-Fine Karen Pen Needle) As directed 4 times a day zolpidem (Ambien) 5 mg PO BEDTIME PRN 7 days Tobacco use date assessed: 12/23/23 [facility] Details Patient is a 52-year-old male here today for a follow-up visit .? Has a past medical history significant for type 2 diabetes, peripheral artery disease with history of left metatarsal amputation, history of DVT on Eliquis, hypertension, GERD and hyperlipidemia.? .. Metatarsal amputation with osteomyelitis: Had a repeat left metatarsal amputation due to recurrent osteomyelitis. Has been on IV antibiotics via picc and was in short-term rehab this has been discontinued. He continues to follow wound management here in [place]. .. Hypertension: Blood pressure has been elevated as of late and patient is very confused as to what blood pressure medication his to be taking. Currently on losartan 100, metoprolol 100 mg, was placed on clonidine 0.1 mg b.i.d., isosorbide, amlodipine. PLAN: Seems to be an element of polypharmacy--> will try to simplify his regime and continue him on amlodipine, losartan, metoprolol 25 mg. Advised to monitor blood pressures at home and if still elevated will consider increasing or changing medication. .. Normocytic anemia: Has followed by Hematology will be started up with iron infusions. Type 2 diabetes: Blood sugars have been better controlled as of late, has been more compliant with his medications, .. Insomnia: The last visit we discussed his insomnia and started Ambien to use on a very limited p.r.n. basis for bad nights of sleep and has been effective for him. [facility] Medical History Left ventricular ejection fraction of 40-49% SOB (shortness of breath) on exertion Anemia DMII (diabetes mellitus, type 2) Open wound Anemia of chronic disease Peripheral vascular disease Diabetic foot ulcer Anemia Orthostatic hypotension Gangrene of toe of left foot GERD (gastroesophageal reflux disease) History of angiography PICC (peripherally inserted central catheter) in place Bacteremia Diabetic foot ulcer PAD (peripheral artery disease) Diabetes Surgical History History of transmetatarsal amputation of left foot Amputated toe of right foot (11/05/20) Family History Other Diabetes No family history of cancer Social History Household Members: None Housing: Apartment Are you a primary healthcare network pricing consultant to a significant other at home: No Do you presently have visiting nurse or other home services: No Alcohol intake: current Alcohol intake frequency: holidays/special occasions only Alcohol type: hard liquor Comment: pt still feeling the same Patient Tobacco Use Status: Former Tobacco user Tobacco use type: Cigarette Cigarette Packs Per Day: 0.5 Cigarettes Per Day: 1 Years Smoked: 15 e-Cigarette/Vaping Use: Never Used Second Hand Smoke Exposure: No service: No Current occupational status: unemployed Cognitive needs: No Hearing needs: No Vision needs: No Questionnaire PHQ-9 Over the last 2 weeks, how often have you been bothered by any of the following problems? 1. Little interest or pleasure in doing things: not at all 2. Feeling down, depressed, or hopeless: several days 3. Trouble falling or staying asleep, or sleeping too much: several days 4. Feeling tired or having little energy: several days 5. Poor appetite or overeating: more than half the days 6. Feeling bad about yourself - or that you are a failure or have let yourself or your family down: more than half the days 7. Trouble concentrating on things, such as reading the newspaper or watching television: several days 8. Moving or speaking so slowly that other people could have noticed. Or the opposite - being so fidgety or restless that you have been moving around a lot more than usual: more than half the days 9. Thoughts that you would be better off or of hurting yourself in some way: not at all Total score: 10 Depression Screening Interpretation: Positive Depression Screening Follow-up: Existing condition and Declines treatment Depression Screening Done: Yes 12883 - PHQ-9 Billing: Yes Source: Developed by Drs. Dru Gallagher, Aliyah Fitzpatrick, Obdulio Wei and colleagues, with an educational thomas from [employer]. Thrive Questionnaire Date Thrive assessed: 12/23/23 I am a: Patient What is your living situation today?: I have a steady place to live Within the past 12 months, did the food you bought not last and you didn't have the money to get more?: Never true Within the past 12 months, did you worry whether your food would run out before you got money to buy more?: Never true Do you have trouble paying for medicines?: No Do you have trouble getting transportation to medical appointments?: No Do you have trouble paying your heating and electricity bill?: No Do you have trouble taking care of your child, family member or friend?: No Do you have trouble with day-to-day activities such as bathing, preparing meals, shopping, managing finances, etc.?: No Are you currently unemployed and looking for a job?: No Are you interested in more education?: No Please select the resources that you would like help with: None Currently or been in a relationship where the following occur: no concerns reported THRIVE Score: 0 AUDIT C Alcohol Use Questionnaire (AUDIT-C) 1. How often do you have a drink containing alcohol?: Never 3. How often do you have six or more drinks on one occasion?: Never Total Score: 0 TAQUERIA-7 AMB Questionnaire TAQUERIA-7 Date TAQUERIA - 7 assessed: 12/23/23 Feeling nervous, anxious, or on edge: 0 = Not at all Not being able to stop or control worryin = Not at all Worrying too much about different things: 0 = Not at all Trouble relaxin = Not at all Being so restless that it is hard to sit still: 0 = Not at all Becoming easily annoyed or irritable: 0 = Not at all Feeling afraid as if something awful might happen: 0 = Not at all Total TAQUERIA-7 score (0-4 normal; 5-9 mild; 10-14 moderate; 15-21 severe): 0 Source: Developed by Drs. Dru Gallagher, Aliyah Fitzpatrick, Obdulio Wei and colleagues, with an educational thomas from [employer]. TAQUERIA-7 Assessment Billing TAQUERIA-7 Assessment Tool: TAQUERIA-7 Assessment 67009 Physical exam (Primary Care) Vital Signs: Last Vital Signs Pulse 88 12/23/23 11:33 Resp 16 12/23/23 11:33 BP 158/90 H 12/23/23 11:33 Pulse Ox 99 12/23/23 11:33 Oxygen Delivery Method Room Air 12/23/23 11:33 BMI result Body Mass Index 31.8 Tobacco/Smoking Status: Tobacco use Status Tobacco use date assessed 12/23/23 12/23/23 11:38 Patient Tobacco Use Status Former Tobacco user 12/23/23 11:38 Tobacco use type Cigarette 12/23/23 11:38 e-Cigarette/Vaping Use Never Used 12/23/23 11:38 PHQ-9: PHQ-9 Score PHQ-9: Total score 10 12/23/23 12:13 Depression Screening Interpretation: Positive Depression Screening Follow-up: Existing condition and Declines treatment Thrive Assessment: Date of Thrive Assessment Date Thrive assessed 12/23/23 12/23/23 11:38 Currently or been in a relationship where the following occur: no concerns reported Assessment and Plan Assessment & Plan (1) DMII (diabetes mellitus, type 2): Code(s): E11.9 - Type 2 diabetes mellitus without complications Qualifiers: Diabetes mellitus complication detail: with peripheral angiopathy with gangrene Diabetes mellitus complication status: with circulatory complication Diabetes mellitus terminal press operator insulin use: with terminal press operator use Qualified Code(s): E11.52 - Type 2 diabetes mellitus with diabetic peripheral angiopathy with gangrene; Z79.4 - adjunct faculty for medical terminology (current) use of insulin Plan: Patient's type 2 diabetes controlled with A1c today is 6.8. Will continue his current diabetic medication regime. Goal A1c to be below 7.0. (2) Osteomyelitis: Comment: He has much improved foot Code(s): M86.9 - Osteomyelitis, unspecified Qualifiers: Laterality: left Osteomyelitis location: foot Osteomyelitis type: subacute Qualified Code(s): M86.272 - Subacute osteomyelitis, left ankle and foot Plan: Continues to follow wound management in vascular [place]. Was seen by Podiatry at [place] in had a repeat metatarsal amputation. Now followed by [place] [facility] center. Left foot wound seems to be healing well. Now off of IV antibiotics. (3) Peripheral vascular disease: Code(s): I73.9 - Peripheral vascular disease, unspecified Plan: Continues to follow vascular surgeon, is due for new ultrasounds of lower extremities. (4) Hypertension: Code(s): I10 - Essential (primary) hypertension Qualifiers: Hypertension type: essential hypertension Qualified Code(s): I10 - Essential (primary) hypertension Plan: Patient's blood pressure slightly elevated today in office. Has multiple blood pressure medications on his list at this time from recent hospital stays ? Polypharmacy. Will try to simplify his blood pressure med regime to amlodipine, metoprolol and losartan. Will continue antihypertensives as is. Goal blood pressure be below 140/90 (5) Diabetic foot infection: Code(s): E11.628 - Type 2 diabetes mellitus with other skin complications; L08.9 - Local infection of the skin and subcutaneous tissue, unspecified Plan: As above patient underwent repeat left metatarsal amputation and extended short- term rehab stay for IV antibiotics. Orders: Orders Comprehensive [place]. Panel Fast 12/23/23 E11.52 - Type 2 diabetes mellitus with diabetic peripheral angiopathy with gangrene, Z79.4 - adjunct faculty for medical terminology (current) use of insulin Complete Blood Count no Diff 12/23/23 E11.52 - Type 2 diabetes mellitus with diabetic peripheral angiopathy with gangrene, Z79.4 - [facility] (current) use of insulin Hemoglobin A1c 12/23/23 E11.52 - Type 2 diabetes mellitus with diabetic peripheral angiopathy with gangrene, Z79.4 - adjunct faculty for medical terminology (current) use of insulin Microalbumin, Random (w Creat) 12/23/23 E11.52 - Type 2 diabetes mellitus with diabetic peripheral angiopathy with gangrene, Z79.4 - adjunct faculty for medical terminology (current) use of insulin Lipid Panel 12/23/23 E11.52 - Type 2 diabetes mellitus with diabetic peripheral angiopathy with gangrene, Z79.4 - [facility] (current) use of insulin Referrals Podiatry Referral E11.52 - Type 2 diabetes mellitus with diabetic peripheral angiopathy with gangrene, Z79.4 - [facility] (current) use of insulin Medications: Changed From amlodipine 10 mg See Protocol PO DAILY 30 tabs 0RF I10 - Essential (primary) hypertension To amlodipine 10 mg See Protocol PO DAILY 30 days 30 tabs 3RF I10 - Essential (primary) hypertension From metoprolol succinate ER 25 mg PO DAILY 90 tabs 3RF I10 - Essential (primary) hypertension To metoprolol succinate ER 25 mg PO DAILY 30 days 30 tabs 3RF I10 - Essential (primary) hypertension Refilled apixaban (Eliquis) supposed to be taking BID but patient takes one daily 5 mg PO BID 180 tabs 1RF insulin glargine (Lantus Solostar U-100 Insulin) 30 units (0.3 mL) subcut QAM 30 days 15 mL 3RF E11.52 - Type 2 diabetes mellitus with diabetic peripheral angiopathy with gangrene, Z79.4 - adjunct faculty for medical terminology (current) use of insulin metformin 1,000 mg PO BID 60 tabs 3RF E11.52 - Type 2 diabetes mellitus with diabetic peripheral angiopathy with gangrene, Z79.4 - [facility] (current) use of insulin zolpidem (Ambien) 5 mg PO BEDTIME 7 days PRN 7 tabs 0RF sleep F51.01 - Primary insomnia Discontinued isosorbide mononitrate ER Discontinued Reason: Doctor's Order 30 mg See Protocol PO DAILY 30 tabs 0RF Coding Level of Care Code Est Pt Level 4 (76366) Diagnoses Type 2 diabetes mellitus with diabetic peripheral angiopathy and gangrene, with long-term current use of insulin E11.52; Z79.4 Diabetes mellitus complication detail: with peripheral angiopathy with gangrene Diabetes mellitus complication status: with circulatory complication Diabetes mellitus [facility] insulin use: with terminal press operator use Subacute osteomyelitis of left foot M86.272 Laterality: left Osteomyelitis location: foot Osteomyelitis type: subacute Peripheral vascular disease I73.9 Hypertension I10 Hypertension type: essential hypertension Diabetic foot infection E11.628; L08.9 Additional Codes TAQUERIA-7 Assessment Billing - TAQUERIA-7 Assessment Tool: TAQUERIA-7 Assessment [id number] ([id number])
[2023-12-23 11:33] VITALS: BP 158/90; PULSE 88; RESP 16; O2SAT 99; BMI 31.8
== END 2023-12-23 12:27 | disposition home or self-care (01) ==
PROVIDERS: PCP Physician Assistant; Visit Provider Physician Assistant
DX: E11.52 Type 2 diabetes mellitus with diabetic peripheral angiopathy with gangrene (principal); Z79.4 Long term (current) use of insulin; M86.272 Subacute osteomyelitis, left ankle and foot; I73.9 Peripheral vascular disease, unspecified; E11.628 Type 2 diabetes mellitus with other skin complications; I10 Essential (primary) hypertension; L08.9 Local infection of the skin and subcutaneous tissue, unspecified
CPT/HCPCS: 99214

== ENCOUNTER 2023-12-29 13:21 | Outpatient (AMB) | payer OTHER, SELFPAY ==
[2023-12-29 13:25] VITALS: BP 206/100; PULSE 104; BMI 31.3
--- NOTE | 2023-12-29 13:25 | A.OFFVIS_ITS ---
Vital Signs 12/29/23 13:25 Height 5 ft 8 in Weight 205 lb 14.588 oz BMI 31.3 BP 206/100 H Blood Pressure Location Rt brachial Position Sitting Pulse 104 H Intake Visit Reasons: s/p EGD, colonoscopy Intake Note: Irving returns in follow up s/p EGD and Colonoscopy on 10/26/23. CC:Patient reports doing alright and denies having any new GI symptoms. 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 It is hard to say what is causing this could be an element of diabetic gastroparesis could be related to his Trulicity I think it is probably multifactorial. The EGD may be helpful with this. AFTER clearing him through cardiology and having an extra transfusion just prior to the procedure the procedure was canceled because the Trulicity was not held because of anesthesia objections. I believe that this appointment failed to be canceled as it was supposed to be a postprocedure follow-up. He says he went for his cardiac cast so that is done. We already have cardiac clearance so I want to get him booked as urgently as possible. He understands he needs to hold his Trulicity. I walked him down to the schedulers and the earliest we can get is October 01. I will try to coordinate with Oncology and see if they want to check his hematocrit and do a possible transfusion prior to then. I will see him after the procedure. He has multiple risk factors including an undefined but poor respiratory status, chronic anticoagulation with Eliquis, a history of DVT the likely reason for this, cardiomyopathy with a mildly reduced ejection fraction, poor diabetic control with a history of amputation of his toes, recent osteomyelitis, all making him a higher than usual risk for sedation anesthesia. He also has a mild cognitive disability. (2) Pre-op examination: Code(s): Z01.818 - Encounter for other preprocedural examination (3) GERD with esophagitis: Code(s): K21.00 - Gastro-esophageal reflux disease with esophagitis, without bleeding Qualifiers: Esophagitis bleeding: without hemorrhage Qualified Code(s): K21.00 - Gastro-esophageal reflux disease with esophagitis, without bleeding Plan: Continues on his omeprazole with good control (4) Chronic anticoagulation: Code(s): Z79.01 - nursing home (current) use of anticoagulants (5) Intellectual delay: Code(s): F81.9 - Developmental disorder of scholastic skills, unspecified (6) Cardiomyopathy: Code(s): I42.9 - Cardiomyopathy, unspecified Qualifiers: Cardiomyopathy type: unspecified Qualified Code(s): I42.9 - Cardiomyopathy, unspecified (7) Left ventricular ejection fraction of 40-49%: Comment: Echo 10/03/21: grade III severe diastolic dysfunction. Code(s): R94.30 - Abnormal result of cardiovascular function study, unspecified (8) Osteomyelitis: Comment: He has much improved foot Code(s): M86.9 - Osteomyelitis, unspecified Qualifiers: Laterality: left Osteomyelitis location: foot Osteomyelitis type: subacute Qualified Code(s): M86.272 - Subacute osteomyelitis, left ankle and foot (9) Tobacco dependence: Code(s): F17.200 - Nicotine dependence, unspecified, uncomplicated (10) Osteomyelitis: Code(s): M86.9 - Osteomyelitis, unspecified Qualifiers: Osteomyelitis type: other chronic Osteomyelitis location: foot Laterality: left Qualified Code(s): M86.672 - Other chronic osteomyelitis, left ankle and foot Medications: Refilled omeprazole 40 mg PO DAILY 90 days 90 caps 1RF K21.00 - Gastro-esophageal reflux disease with esophagitis, without bleeding Office Visit (Signed) - 07/31/23 08:53 Anemia BARIUM SWALLOW ? Canceled in favor of EGD ? COLONOSCOPY/EGD ? Findings: Larynx: Normal Esophagus: GE junction at 40 cms. No esophagitis or Hines's. Stomach: Mild gastric erythema with nodular appearing gastric mucosa in the gastric body. Biopsies were obtained from the gastric body and antrum. Grade 2 flap valve on retroflexed examination of the cardia. Duodenum: Multiple 5 to 10 mm benign appearing nodule in the apex of the bulb - biopsied. Normal descending duodenum - biopsies were obtained from the 3rd part of duodenum to check for celiac sprue Findings: Terminal Ileum: Distal 8 to 10 cms was examined and appeared normal Cecum: Normal Ascending Colon: A 15 mm sessile polyp in the distal AC at 65 cms. Polyp was raised with 5 cc of Eleview and removed with a hot snare. Polypectomy site was closed with two hemoclips Two 10 to 12 mm sessile polyps in the distal AC - removed with a hot snare Transverse Colon: Normal Descending Colon: A 15 - 18 mm sessile polyp - removed with a hot snare. Polypectomy site was closed with 1 hemoclip. Moderate diverticulosis Sigmoid Colon: Moderate diverticulosis Rectum: A 10 mm sessile polyp - removed with a hot snare. Polypectomy site was closed with 1 hemoclip Ano-rectum: Small internal hemorrhoids Colon preparation: Good after copious irrigation Impression and Post Procedure Diagnosis: Endoscopy Findings: STOMACH: Mild gastric erythema with nodular appearing gastric mucosa in the gastric body. Biopsies were obtained from the gastric body and antrum. DUODENUM: Multiple 5 to 10 mm benign appearing nodule in the apex of the bulb - biopsied. Normal descending duodenum - biopsies were obtained from the 3rd part of duodenum to check for celiac sprue Colonoscopy Findings: Five medium sized polyps removed Moderate diverticulosis seen in the left colon Small hemorrhoids on retroflexed exam. No clear source found for BRIA - ? intermittent blood loss from polyps Plan: Ok to resume a diabetic diet. Resume Eliquis on 10/27/23 I will send a letter with pathology results. If biopsies are normal and pt has recurrent anemia, consider further evaluation with a Capsule Endoscopy as an outpatient. Patient has an appointment on 01/26/24 in the GI Clinic with Deborah Ramsey NP. Repeat Colonoscopy interval based on path results - in 3 years if polyps are adenomatous and 10 years if polyps are hyperplastic. Of note - pt left the hospital AMA after he had the EGD and Colon BIOPSIES SHOWED: A. Colon, ascending at 65 cm, polypectomies (2): Fragments of tubular adenomata; negative for high grade dysplasia or carcinoma. B. Colon, random, biopsy: Colonic mucosa within normal limits; negative for microscopic colitis. C. Colon, descending, polypectomy: Hyperplastic mucosal polyp. D. Colon, left, biopsy: Colonic mucosa within normal limits; negative for microscopic colitis. E. Rectum, polypectomy: Hyperplastic mucosal polyp. F. Small bowel, biopsy: Small intestinal mucosa within normal limits; negative for celiac disease. G. 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 H. Stomach, antrum, biopsy: Antral-type mucosa with mild chronic inactive inflammation; no Helicobacter organisms seen. I. Stomach, body, biopsy: Oxyntic mucosa within normal limits; no Helicobacter organisms seen ? CORRESPONDENCE On 10/15/23 @ 09:41 Deborah Ramsey Wrote To BraulioDecember (7) I'm on it. Spoke with schedulers and am trying to get something...but we need a weeks notice because of the Trulicity. FYI, he tested positive for cocaine, that's the reason the 10/01 procedure did not go through. I am aware that there are times we need to promote care even for patient's who have social/behavioral issues and this is one of those cases. For example, if he were in the ER and bleeding out, we would scope him regardless of what substances may be floating around in the system. If I can get notice, are you considering transfusion prior to procedure, Dr. Mayes? I have personally spoken to the patient and will continue to communicate with him directly as the schedulers keep an eye out. I explained to them the scenerio, and this is not a case where we should put the patient off despite the faux pas of the urine. Dr. Serrano, can you help by advising me who our OR contact is in case we have resistance at their end? Thanks to all! On 10/15/23 @ 09:29 Corey Mayes Wrote To Braulio (3) Corey Mayes completed item. On 10/15/23 @ 09:27 System Wrote To BraulioDecember (3) Results added. Task updated. On 10/15/23 @ 09:17 Andreia Romero Wrote To BraulioDecember (2) Dr Mayes's office called stating that they wants this patient to have a colonoscopy before December as that feels too far away to her. I spoke with procedure schedulers and they do not have anything at this time. He was advised to call back for any cancellations. TODAY'S VISIT He is agreeable to 3 year follow-up. The procedure was well tolerated. The results were explained and the patient is agreeable to the follow-up interval as stated. The bowel pattern has returned to normal. Education was provided to tell any 1st degree relatives about their findings to be sure that they are screened by age 45. Educated that they will be put on a recall list when it is time for their repeat scope but should they move out of state or away from the hospital they will need to remember along with their primary to repeat the procedure in a timely fashion to avoid any adverse complications. His nausea and vomiting has resolved and has not returned. I was concerned because he is diabetic but it seems that the omeprazole is helping him. He is on 40 mg once a day and given the fact that he has esophagitis and multiple stomach polyps he should never go off of this medication. Return office visit in 6 months [facility] Medical History (Updated 01/04/24 @ 10:18 by Corey Mayes MD) Nausea and vomiting Left ventricular ejection fraction of 40-49% SOB (shortness of breath) on exertion Anemia DMII (diabetes mellitus, type 2) Open wound Anemia of chronic disease Peripheral vascular disease Diabetic foot ulcer Anemia Orthostatic hypotension Gangrene of toe of left foot GERD (gastroesophageal reflux disease) History of angiography PICC (peripherally inserted central catheter) in place Bacteremia Diabetic foot ulcer PAD (peripheral artery disease) Diabetes Surgical History (Updated 01/04/24 @ 10:18 by Corey Mayes MD) History of esophagogastroduodenoscopy (EGD) H/O colonoscopy History of transmetatarsal amputation of left foot Amputated toe of right foot (11/05/20) Family History Other Diabetes No family history of cancer Social History Household Members: None Housing: Apartment Are you a primary palliative care specialist to a significant other at home: No Do you presently have visiting nurse or other home services: No Alcohol intake: current Alcohol intake frequency: holidays/special occasions only Alcohol type: hard liquor Comment: pt still feeling the same Patient Tobacco Use Status: Former Tobacco user Tobacco use type: Cigarette Cigarette Packs Per Day: 0.5 Cigarettes Per Day: 1 Years Smoked: 15 e-Cigarette/Vaping Use: Never Used Second Hand Smoke Exposure: No service: No Current occupational status: unemployed Cognitive needs: No Hearing needs: No Vision needs: No Review of Systems Const Denies fatigue, Denies fever(s), Denies night sweats, Denies poor appetite and Denies weight loss ENT Reports Normal hearing present, Denies dental pain, Denies dysphagia, Denies hearing loss, Denies mouth pain, Denies odynophagia, Denies throat swelling, Denies tongue swelling and Reports other (Dentition adequate) Card Reports no additional complaints Resp Reports no additional complaints GI Details: Denies abdominal pain, Denies melena, Denies bloating, Denies hematochezia, Denies constipation, Denies GI cramping, Denies dysphagia, Denies excessive flatus, Denies early satiety, Reports heartburn, Denies diarrhea, Reports nausea, Denies odynophagia, Denies vomiting and Denies hematemesis Skin/Breast Denies pruritus, Denies lesions, Denies rash and Denies jaundice Neuro Reports Normal hearing present and Denies Abnormal speech present Endo Denies fatigue Aller/Immun Denies throat swelling and Denies tongue swelling Physical Exam Vital Signs: Last Vital Signs Pulse 104 H 12/29/23 13:25 BP 206/100 H 12/29/23 13:25 BMI result Body Mass Index 31.3 Const General: cooperative, no acute distress, well developed and well groomed Nutritional Appearance: well nourished and obese Orientation/consciousness: oriented to person, oriented to place and oriented to time Limitations: No language barrier HEENT Head: Yes normocephalic and Yes atraumatic Eyes General: appearance normal, both eyes and all related structures Pupils: Equal, round and reactive pupils present Neck Neck: Yes normal visual inspection and Yes no lymphadenopathy Thyroid: Thyroid normal Resp Effort & Inspection: normal respiratory effort and able to speak in complete sentences Auscultation: clear to auscultation bilaterally Cardio Rate: regular rate Rhythm: regular rhythm Heart sounds: Normal, physiologic split S2 sound present Peripheral pulses: radial pulses present and posterior tibial pulses present GI Inspection: No distended, No Abdominal panniculus present and Yes obesity Palpation (GI): Soft to palpation, nontender, no guarding, not rigid and No hepatosplenomegaly present Percussion: Yes normal to percussion Auscultation: normal bowel sounds Rectal Exam - Male: Yes deferred Skin General skin exam: no rashes or lesions noted, turgor normal, skin not dry, no jaundice, No spider nevi and no striae Rashes: no rashes Nails: normal Neuro General: oriented to person, oriented to place and oriented to time Cranial nerves: Yes Equal, round and reactive pupils present and Yes Normal hearing present Speech: No Abnormal speech present Extrem General: Yes normal to inspection, No clubbing, No cyanosis and No edema Psych Appearance: grossly normal and well kempt Mental Status: mental status grossly normal Speech and movement: Normal speech and movement present Affect: normal affect Attitude: cooperative Thought process: Normal thought process present and not confabulating Thought content: Normal thought content present Insight: Limited insight present (Psych) Judgement: Limited judgement present (Psych) Results Reviewed Results Reviewed: BARIUM SWALLOW ? Canceled in favor of EGD ? COLONOSCOPY/EGD ? Findings: Larynx: Normal Esophagus: GE junction at 40 cms. No esophagitis or Hines's. Stomach: Mild gastric erythema with nodular appearing gastric mucosa in the gastric body. Biopsies were obtained from the gastric body and antrum. Grade 2 flap valve on retroflexed examination of the cardia. Duodenum: Multiple 5 to 10 mm benign appearing nodule in the apex of the bulb - biopsied. Normal descending duodenum - biopsies were obtained from the 3rd part of duodenum to check for celiac sprue Findings: Terminal Ileum: Distal 8 to 10 cms was examined and appeared normal Cecum: Normal Ascending Colon: A 15 mm sessile polyp in the distal AC at 65 cms. Polyp was raised with 5 cc of Eleview and removed with a hot snare. Polypectomy site was closed with two hemoclips Two 10 to 12 mm sessile polyps in the distal AC - removed with a hot snare Transverse Colon: Normal Descending Colon: A 15 - 18 mm sessile polyp - removed with a hot snare. Polypectomy site was closed with 1 hemoclip. Moderate diverticulosis Sigmoid Colon: Moderate diverticulosis Rectum: A 10 mm sessile polyp - removed with a hot snare. Polypectomy site was closed with 1 hemoclip Ano-rectum: Small internal hemorrhoids Colon preparation: Good after copious irrigation Impression and Post Procedure Diagnosis: Endoscopy Findings: STOMACH: Mild gastric erythema with nodular appearing gastric mucosa in the gastric body. Biopsies were obtained from the gastric body and antrum. DUODENUM: Multiple 5 to 10 mm benign appearing nodule in the apex of the bulb - biopsied. Normal descending duodenum - biopsies were obtained from the 3rd part of duodenum to check for celiac sprue Colonoscopy Findings: Five medium sized polyps removed Moderate diverticulosis seen in the left colon Small hemorrhoids on retroflexed exam. No clear source found for BRIA - ? intermittent blood loss from polyps Plan: Ok to resume a diabetic diet. Resume Eliquis on 10/27/23 I will send a letter with pathology results. If biopsies are normal and pt has recurrent anemia, consider further evaluation with a Capsule Endoscopy as an outpatient. Patient has an appointment on 01/26/24 in the GI Clinic with Deborah Ramsey NP. Repeat Colonoscopy interval based on path results - in 3 years if polyps are adenomatous and 10 years if polyps are hyperplastic. Of note - pt left the hospital AMA after he had the EGD and Colon BIOPSIES SHOWED: A. Colon, ascending at 65 cm, polypectomies (2): Fragments of tubular adenomata; negative for high grade dysplasia or carcinoma. B. Colon, random, biopsy: Colonic mucosa within normal limits; negative for microscopic colitis. C. Colon, descending, polypectomy: Hyperplastic mucosal polyp. D. Colon, left, biopsy: Colonic mucosa within normal limits; negative for microscopic colitis. E. Rectum, polypectomy: Hyperplastic mucosal polyp. F. Small bowel, biopsy: Small intestinal mucosa within normal limits; negative for celiac disease. G. 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 H. Stomach, antrum, biopsy: Antral-type mucosa with mild chronic inactive inf lammation; no Helicobacter organisms seen. I. Stomach, body, biopsy: Oxyntic mucosa within normal limits; no Helicobacter organisms seen Assessment & Plan Assessment & Plan (1) Anemia: Code(s): D64.9 - Anemia, unspecified Category: Medical Qualifiers: Anemia type: iron deficiency Iron deficiency anemia type: unspecified iron deficiency Qualified Code(s): D50.9 - Iron deficiency anemia, unspecified (2) GERD with esophagitis: Code(s): K21.00 - Gastro-esophageal reflux disease with esophagitis, without bleeding Category: Medical Qualifiers: Esophagitis bleeding: without hemorrhage Qualified Code(s): K21.00 - Gastro-esophageal reflux disease with esophagitis, without bleeding Plan He is agreeable to 3 year follow-up. The procedure was well tolerated. The results were explained and the patient is agreeable to the follow-up interval as stated. The bowel pattern has returned to normal. Education was provided to tell any 1st degree relatives about their findings to be sure that they are screened by age 45. Educated that they will be put on a recall list when it is time for their repeat scope but should they move out of state or away from the hospital they will need to remember along with their primary to repeat the procedure in a timely fashion to avoid any adverse complications. His nausea and vomiting has resolved and has not returned. I was concerned because he is diabetic but it seems that the omeprazole is helping him. He is on 40 mg once a day and given the fact that he has esophagitis and multiple stomach polyps he should never go off of this medication. Return office visit in 6 months Medications: New omeprazole 40 mg PO DAILY@06 30 caps 6RF D64.9 - Anemia, unspecified, K21.00 - Gastro-esophageal reflux disease with esophagitis, without bleeding Coding Level of Care Code Est Pt Level 3 (51939) Diagnoses Iron deficiency anemia, unspecified iron deficiency anemia type D50.9 Anemia type: iron deficiency Iron deficiency anemia type: unspecified iron deficiency Gastroesophageal reflux disease with esophagitis without hemorrhage K21.00 Esophagitis bleeding: without hemorrhage
== END 2023-12-29 14:09 | disposition home or self-care (01) ==
PROVIDERS: PCP Physician Assistant; Visit Provider Nurse Practitioner
DX: D50.9 Iron deficiency anemia, unspecified (principal); K21.00 Gastro-esophageal reflux disease with esophagitis, without bleeding
CPT/HCPCS: 99213

== ENCOUNTER → 2023-12-29 13:21 | Outpatient (BNVA) | payer OTHER, SELFPAY | PROVIDERS: PCP Physician Assistant; Visit Provider Nurse Practitioner | DX: D50.9 Iron deficiency anemia, unspecified (principal); K21.00 Gastro-esophageal reflux disease with esophagitis, without bleeding | CPT/HCPCS: 99212 ==

== ENCOUNTER 2024-01-13 08:22 | Outpatient (REF) | payer OTHER, SELFPAY ==
--- NOTE | ~2024-01-13 | XR_ITS ---
EXAMINATION: XR FOOT, RIGHT CLINICAL INFORMATION: Nonhealing wound. COMPARISON: MR right foot 05/26/2022. X-ray right foot 05/21/2022. TECHNIQUE: AP, lateral, and oblique views of the right foot. FINDINGS: The bones are demineralized. Redemonstration of amputation of the fourth digit from the metatarsal neck. Mild degenerative changes first metatarsophalangeal joint. Increased periarticular sclerosis at the second MTP joint with hypertrophic change and flattening at the base of the second proximal phalanx. Vascular calcifications. Moderate changes at the fifth MTP joint with irregular densities in the soft tissues along the plantar aspect of the joint, possibly related to overlying dressing and correlation with clinical exam recommended. Increased subtle periarticular lucencies and possible destructive change at the fifth MTP joint. XR/XR foot RT min 3V IMPRESSION: Moderate changes at the fifth MTP joint with irregular densities in the soft tissues along the plantar aspect of the joint, possibly related to overlying dressing and correlation with clinical exam recommended. Increased subtle periarticular lucencies and possible destructive change at the fifth MTP joint.
[2024-01-13 09:21] LABS: Basophils Absolute Auto 0.1 X10*3/uL (0.0-0.2); Basophils Percent Auto 0.4 % (0-2); Eosinophils Absolute Auto 0.3 X10*3/uL (0.0-0.4); Eosinophils Percent Auto 2.4 % (0-4); Hematocrit 27.1 % (42.0-52.0); Hemoglobin 8.4 g/dl (14.0-18.0); Imm Gran Abs Auto 0.03 X10*3/uL (0.00-0.03); Imm Gran Pct Auto 0.3 % (0.0-0.4); Lymphocytes Absolute Auto 0.9 X10*3/uL (1.2-4.9); Lymphocytes Percent Auto 8.3 % (20-40); MANUAL DIFF FLAG SCAN; Mean Corpuscular Hemoglobin 27.1 pg (27.0-33.0); Mean Corpuscular Volume 87.4 fL (80.0-98.0); Monocytes Absolute Auto 0.8 X10*3/uL (0.1-1.2); Monocytes Percent Auto 7.4 % (2-11); Neutrophils Absolute Auto 9.1 x10*3/uL (2.0-8.3); Neutrophils Percent Auto 81.2 % (45-73); PLT CLUMP 1; Red Cell Distribution Width 15.9 % (11.0-16.0); SCAN SMEAR FLAG 1
[2024-01-13 10:05] LABS: Erythrocyte Sedimentation Rate 108 MM/HR (0-15)
[2024-01-13 10:56] LABS: Mean Platelet Volume 10.9 fL (9.4-12.4); Platelet Count 320 X10*3/uL (160-400); White Blood Count 11.2 X10*3/uL (4.8-10.8)
[2024-01-13 10:57] LABS: SLIDE REVIEW VERIFIED
[2024-01-13 11:06] LABS: Anion Gap 11 (12-20); Blood Urea Nitrogen 28 mg/dL (9-16); C Reactive Protein 3.65 mg/dL (< or = 0.50); Calcium 9.1 mg/dL (8.4-10.2); Carbon Dioxide 18 mmol/L (22-29); Chloride 110 mmol/L (96-108); Estimated Glomerular Filt Rate > 60; Glucose Random 161 mg/dL (60-115); Potassium 4.5 mmol/L (3.3-5.1); Sodium 134 mmol/L (135-145)
== END 2024-01-13 08:23 | disposition home or self-care (01) ==
LOC: HO.XRAY 08:22
PROVIDERS: PCP Physician Assistant; Visit Provider Physician Assistant
DX: S91.301D Unspecified open wound, right foot, subsequent encounter (principal)
CPT/HCPCS: 36415; 73630; 80048; 84134; 85025; 85652; 86140

== ENCOUNTER → 2024-03-07 23:59 | Outpatient (BNV) | payer OTHER, SELFPAY | PROVIDERS: PCP Physician Assistant; Visit Provider Physician Assistant | DX: E11.621 Type 2 diabetes mellitus with foot ulcer (principal); L97.511 Non-pressure chronic ulcer of other part of right foot limited to breakdown of skin; E11.69 Type 2 diabetes mellitus with other specified complication | CPT/HCPCS: G0180 ==

== ENCOUNTER 2024-03-08 14:33 | Outpatient (AMB) | payer OTHER, SELFPAY ==
--- NOTE | 2024-03-08 14:35 | MHC.PC.OV ---
Vital Signs 03/08/24 14:49 Height 5 ft 6 in Weight 195 lb 4 oz BMI 31.5 BP 122/72 Blood Pressure Location Lt brachial Position Sitting Pulse 95 Pulse Source Pulse Oximeter Pulse Oximetry (%) 99 Oxygen Delivery Method Room Air Intake Visit Reasons: [facility] 02/22 rt pinky toe amputation/ infection Biological Photographer Required: No Accompanied by: Self / Same As Patient Allergies No Known Allergies Allergy (Verified 03/08/24 14:54) Tobacco use date assessed: 12/23/23 Dental Screening Dental Screen Date: 03/08/24 Did you have a dental visit in the last 12 months?: No Did you have a dental problem in the last 6 months where you did not have access to dental care?: No Was dental information given to patient?: Patient declined HPI [facility] 02/22 rt pinky toe amputation/ infection HPI Details Patient is a 53-year-old male here today for a Hospital discharge follow-up.? Has a past medical history significant for type 2 diabetes, peripheral artery disease with history of left metatarsal amputation, history of DVT on Eliquis, hypertension, GERD and hyperlipidemia.? Right foot pinky toe amputation due to osteomyelitis : Now followed by Dr Villegas at [facility]. Patient recently admitted to [facility] with worsening right foot ulcer. Patient's MRI did show acute osteomyelitis and cultures noted MRSA. Patient was placed on IV vanco and cefepime. Infectious disease consult and recommended oral non as needed for 5 weeks which treatment would end on 03/29/2024. He does report side effects of nausea due to the antibiotics does has been using gingiva with lemon to try to combat the nausea.. he continues to work with [facility] wound management He will be following up with [facility] infectious disease specialist in early 03/2024. .. CHRONIC MEDICAL CONDITIONS--> Hypertension: Blood pressure has been elevated as of late and patient is very confused as to what blood pressure medication his to be taking. Currently on losartan 100, metoprolol 100 mg, was placed on clonidine 0.1 mg b.i.d., isosorbide, amlodipine. PLAN: Seems to be an element of polypharmacy--> will try to simplify his regime and continue him on amlodipine, losartan, metoprolol 25 mg. Advised to monitor blood pressures at home and if still elevated will consider increasing or changing medication. .. Normocytic anemia: Has followed by Hematology will be started up with iron infusions. Type 2 diabetes: Blood sugars have been a bit more elevated as of late, has been drinking more dav virgilio soda due to his nauseousness secondary to antibiotic. He does report he has been out of Trulicity over the last 2 months due to availability at pharmacy. today's A1c at 8.2. PLAN : Will transition to an alternative GLP 1 .. . [facility] Medical History (Updated 03/08/24 @ 15:20 by Fredy Adair PA-C) Nausea and vomiting Left ventricular ejection fraction of 40-49% SOB (shortness of breath) on exertion Anemia DMII (diabetes mellitus, type 2) Open wound Anemia of chronic disease Peripheral vascular disease Diabetic foot ulcer Anemia Orthostatic hypotension Gangrene of toe of left foot GERD (gastroesophageal reflux disease) History of angiography PICC (peripherally inserted central catheter) in place Bacteremia Diabetic foot ulcer PAD (peripheral artery disease) Diabetes Surgical History History of esophagogastroduodenoscopy (EGD) H/O colonoscopy History of transmetatarsal amputation of left foot Amputated toe of right foot (11/05/20) Family History Other Diabetes No family history of cancer Social History Household Members: None Housing: Apartment Are you a primary day care home mother to a significant other at home: No Do you presently have visiting nurse or other home services: No Alcohol intake: current Alcohol intake frequency: holidays/special occasions only Alcohol type: hard liquor Comment: pt still feeling the same Patient Tobacco Use Status: Former Tobacco user Tobacco use type: Cigarette Cigarette Packs Per Day: 0.5 Cigarettes Per Day: 1 Years Smoked: 15 e-Cigarette/Vaping Use: Never Used Second Hand Smoke Exposure: No service: No Current occupational status: unemployed Cognitive needs: No Hearing needs: No Vision needs: No Questionnaire Thrive Questionnaire Date Thrive assessed: 12/23/23 TAQUERIA-7 AMB Questionnaire TAQUERIA-7 Date TAQUERIA - 7 assessed: 12/23/23 Source: Developed by Drs. Dru LAliyah Puente, Obdulio Wei and colleagues, with an educational thomas from [employer]. Review of Systems Const Denies headache(s) Eyes Denies loss of vision ENT Denies vertigo, Denies dizziness, Denies headache(s) and Denies sore throat Card Denies chest pain, Denies leg edema and Denies lightheadedness Resp Denies cough, Denies hemoptysis and Denies wheezing GI Denies abdominal pain, Denies melena, Denies constipation, Denies diarrhea and Denies vomiting Denies dysuria, Denies urinary frequency and Denies urinary urgency Musc Denies arthralgias, Denies joint swelling, Denies numbness and Denies tingling Neuro Denies Abnormal speech present, Denies behavioral changes, Denies vertigo, Denies dizziness, Denies headache(s), Denies loss of vision, Denies memory loss, Denies numbness and Denies tingling Psych Denies anxiety, Denies behavioral changes, Denies depression, Denies memory loss and Denies panic attacks Adarsh/Lymph Denies easy bleeding and Denies easy bruising Aller/Immun Denies wheezing Physical exam (Primary Care) Vital Signs: Last Vital Signs Pulse 95 03/08/24 14:49 BP 122/72 03/08/24 14:49 Pulse Ox 99 03/08/24 14:49 Oxygen Delivery Method Room Air 03/08/24 14:49 BMI result Body Mass Index 31.5 Tobacco/Smoking Status: Tobacco use Status Tobacco use date assessed 12/23/23 03/08/24 14:35 Patient Tobacco Use Status Former Tobacco user 03/08/24 14:35 Tobacco use type Cigarette 03/08/24 14:35 e-Cigarette/Vaping Use Never Used 03/08/24 14:35 Thrive Assessment: Date of Thrive Assessment Date Thrive assessed 12/23/23 03/08/24 14:35 Const General: healthy appearing, no acute distress, alert and awake Nutritional Appearance: well nourished Orientation/consciousness: oriented to person, oriented to place and oriented to time HENMT Ears: TM's normal bilaterally General nose exam: Normal nasal mucous membranes and turbinates present Eyes Conjunctivae: conjunctivae normal Sclerae: sclerae normal Pupils: Equal, round and reactive pupils present Neck Neck: Yes no lymphadenopathy and Yes no JVD Thyroid: Thyroid normal Carotids: no bruits Resp Effort & Inspection: normal respiratory effort and not tachypneic Auscultation: no crackles, no rales, no rhonchi and no wheezes Cardio Rate: regular rate Rhythm: regular rhythm Heart sounds: no murmurs and normal S1 and S2 GI Palpation (GI): Soft to palpation, nontender, no hepatomegaly and no splenomegaly Auscultation: normal bowel sounds Skin General skin exam: no rashes or lesions noted and dry skin Neuro General: oriented to person, oriented to place and oriented to time Cranial nerves: Yes Equal, round and reactive pupils present Speech: No Abnormal speech present Gait exam (Neuro): Normal gait present Motor exam (neuro): no tremor noted Extrem Other: RIGHT FOOT PARTIAL AMPUTATION NOTED LEFT FOOT: 5TH TOE AMPUTATION Right upper extremity: full ROM Left upper extremity: full ROM Right lower extremity: full ROM; no edema Left lower extremity: full ROM; no edema Psych Mental Status: mental status grossly normal Speech and movement: Normal speech and movement present Affect: normal affect Attitude: cooperative Thought process: Normal thought process present Results AMB Hemoglobin A1c AMB Hemoglobin A1c 8.2 % Last Edit by JUSTIN Nuñez on 03/08/24 15:13 Assessment and Plan Assessment & Plan (1) Diabetic infection of left foot: Code(s): E11.628 - Type 2 diabetes mellitus with other skin complications; L08.9 - Local infection of the skin and subcutaneous tissue, unspecified Plan: As per HPI patient did have osteomyelitis of the right pinky toe to which he undergone a partial amputation. He has been placed on linezolid 600 b.i.d. for 5 weeks. Will be following up with [facility] infectious disease specialist. (2) Osteomyelitis of left foot: Code(s): M86.9 - Osteomyelitis, unspecified Qualifiers: Osteomyelitis type: other Qualified Code(s): M86.8X7 - Other osteomyelitis, ankle and foot (3) nursing home (current) use of antibiotics: Code(s): Z79.2 - nursing home (current) use of antibiotics Plan: Needs CBC and liver evaluation due to being on long-term antibiotics. (4) Nausea: Code(s): R11.0 - Nausea Plan: Will supply patient with Zofran disintegrating tablet to help with nausea. 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
[2024-03-08 14:49] VITALS: BP 122/72; PULSE 95; O2SAT 99; BMI 31.5
== END 2024-03-08 15:29 | disposition home or self-care (01) ==
LOC: HO.HMGH 14:33
PROVIDERS: PCP Physician Assistant; Visit Provider Physician Assistant
DX: E11.628 Type 2 diabetes mellitus with other skin complications (principal); L08.9 Local infection of the skin and subcutaneous tissue, unspecified; M86.8X7 Other osteomyelitis, ankle and foot; Z79.2 Long term (current) use of antibiotics; R11.0 Nausea; E11.52 Type 2 diabetes mellitus with diabetic peripheral angiopathy with gangrene; Z79.4 Long term (current) use of insulin
CPT/HCPCS: 83036; 99214

== ENCOUNTER 2024-03-14 08:03 | Outpatient (REF) | payer OTHER, SELFPAY ==
[2024-03-14 08:21] LABS: Hematocrit 23.1 % (42.0-52.0); Hemoglobin 7.4 g/dl (14.0-18.0); Mean Corpuscular Hemoglobin 26.9 pg (27.0-33.0); Mean Platelet Volume 8.4 fL (9.4-12.4); Platelet Count 215 X10*3/uL (160-400); Red Blood Count 2.75 X10*6/uL (4.60-5.80); White Blood Count 8.6 X10*3/uL (4.8-10.8)
[2024-03-14 08:56] LABS: Alanine Aminotransferase 16 U/L (0-40); Albumin Level 3.2 g/dL (3.5-5.0); Alkaline Phosphatase 81 U/L (39-117); Anion Gap 9 (12-20); Aspartate Amino Transferase 20 U/L (5-37); Bilirubin Total 0.2 mg/dL (0.0-1.0); Blood Urea Nitrogen 35 mg/dL (9-16); Calcium 8.8 mg/dL (8.4-10.2); Carbon Dioxide 26 mmol/L (22-29); Chloride 112 mmol/L (96-108); Cholesterol 104 mg/dL (<200); Estimated Glomerular Filt Rate 37; Glucose Fasting 146 mg/dL (60-99); Glucose Random 146 mg/dL (60-115); HDL Cholesterol 40 mg/dL (>40); LDL Cholesterol Calculated 40 mg/dL (<100); Potassium 5.2 mmol/L (3.3-5.1); Sodium 142 mmol/L (135-145); Total Protein 6.9 g/dL (6.5-8.0); Triglycerides 120 mg/dL (<150)
[2024-03-14 10:07] LABS: Creatinine Urine 103.24 mg/dL
[2024-03-14 10:08] LABS: Microalbum/Creatinine Ratio Ur 1507.1 ug/mg cr (<30)
== END 2024-03-14 08:04 | disposition home or self-care (01) ==
LOC: HO.LAB 08:03
PROVIDERS: PCP Physician Assistant; Visit Provider Physician Assistant
DX: E11.52 Type 2 diabetes mellitus with diabetic peripheral angiopathy with gangrene (principal); Z79.4 Long term (current) use of insulin; Z79.2 Long term (current) use of antibiotics
CPT/HCPCS: 36415; 80053; 80061; 82043; 82570; 85027

== ENCOUNTER 2024-05-19 10:37 | Outpatient (AMB) | payer OTHER, SELFPAY ==
--- NOTE | 2024-05-19 10:39 | A.OFFPC_ITS ---
Vital Signs 05/19/24 10:49 Height 5 ft 8 in BP 142/86 H Blood Pressure Location Lt brachial Pulse 72 Pulse Source Pulse Oximeter Pulse Oximetry (%) 98 Oxygen Delivery Method Room Air Intake Visit Reasons: 2mof\u Intake Note: Patient is here for hospital discharge follow up. [facility]. Orthopedic after care for amputation E11.40 type 2 diabetes with neuropathy. 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 Accompanied by: Significant Other Allergies No Known Allergies Allergy (Verified 05/19/24 10:52) Medication List - Last Reconciled 05/23/24 by Fredy Adair PA-C acetaminophen 650 mg PO Q6H PRN adhesive tape As directed amlodipine 10 mg PO DAILY apixaban (Eliquis) 5 mg PO BID atorvastatin 40 mg PO DAILY bisacodyl (Dulcolax (bisacodyl)) 10 mg (2 x 5 mg) PO BEDTIME 2 days blood pressure monitor (Blood Pressure Kit) As directed ferrous sulfate 325 mg PO DAILY flash glucose scanning reader (HepatoChemStyle Jayla 2 [place]) for continuous use flash glucose sensor (FreeStyle Jayla 2 Sensor kit) for continuous use gabapentin 300 mg PO BEDTIME 30 days insulin glargine (Lantus Solostar U-100 Insulin) 30 units (0.3 mL) subcut QAM 30 days isosorbide mononitrate ER 30 mg PO DAILY losartan 100 mg PO DAILY metformin 1,000 mg PO BID metoprolol succinate ER 50 mg PO DAILY omeprazole 40 mg PO DAILY@0630 ondansetron 8 mg PO Q12H 15 days oxycodone 15 mg (3 x 5 mg) PO Q6H 7 days pen needle, diabetic test 4 times daily pen needle, diabetic (BD Ultra-Fine Karen Pen Needle) As directed 4 times a day tirzepatide (Mounjaro) 5 mg (0.5 mL) subcut QWEEK 4 weeks zolpidem (Ambien) 5 mg PO BEDTIME PRN 7 days Tobacco use date assessed: 12/23/23 Dental Screening Dental Screen Date: 03/08/24 HPI 2mof\u HPI Details Patient is a 53-year-old male here today for a 2 month follow-up visit? Has a past medical history significant for type 2 diabetes, peripheral artery disease with history of left metatarsal amputation, history of DVT on Eliquis, hypertension, GERD and hyperlipidemia.? Right foot pinky toe amputation due to osteomyelitis : Now followed by Dr Villegas at [facility]. Unfortunately underwent another amputation in March 2024. Was sent to short-term we have to regain strength. Is only partial weight- bearing on his left lower extremity at this time. He now needs his pain controlled temporarily by his PCP in toes able to fully heal from his amputation. He has upcoming appointment with wound care and now has home visiting nurse helping him with wound care as well. .. CHRONIC MEDICAL CONDITIONS--> Hypertension: Blood pressure has been elevated as of late and patient is very confused as to what blood pressure medication his to be taking. Currently on losartan 100, metoprolol 50, isosorbide 30, amlodipine 10. Advised to monitor blood pressures at home and if still elevated will consider increasing or changing medication. .. Normocytic anemia: Has followed by Hematology will be started up with iron infusions. Type 2 diabetes: Did have hypoglycemia while in the hospital and was taken off metformin. Since his hospitalization has restarted metformin. Since being out of the hospital and back onto his normal doses of insulin and Gurpreet P1 his sugars have been better. Does have a continues glucose monitor that is helping him with glycemic control as well. He does [facility] due to availability at pharmacy. [facility] Medical History (Updated 05/19/24 @ 10:59 by Fredy Adair PA-C) Nausea and vomiting Left ventricular ejection fraction of 40-49% SOB (shortness of breath) on exertion Anemia DMII (diabetes mellitus, type 2) Open wound Anemia of chronic disease Peripheral vascular disease Diabetic foot ulcer Anemia Orthostatic hypotension Gangrene of toe of left foot GERD (gastroesophageal reflux disease) History of angiography PICC (peripherally inserted central catheter) in place Bacteremia Diabetic foot ulcer PAD (peripheral artery disease) Diabetes Surgical History History of esophagogastroduodenoscopy (EGD) H/O colonoscopy History of transmetatarsal amputation of left foot Amputated toe of right foot (11/05/20) Family History Other Diabetes No family history of cancer Social History Household Members: None Housing: Apartment Are you a primary manager intensive care unit to a significant other at home: No Do you presently have visiting nurse or other home services: No Alcohol intake: current Alcohol intake frequency: holidays/special occasions only Alcohol type: hard liquor Comment: pt still feeling the same Patient Tobacco Use Status: Former Tobacco user Tobacco use type: Cigarette Cigarette Packs Per Day: 0.5 Cigarettes Per Day: 1 Years Smoked: 15 e-Cigarette/Vaping Use: Never Used Second Hand Smoke Exposure: No service: No Current occupational status: unemployed Cognitive needs: No Hearing needs: No Vision needs: No Questionnaire Thrive Questionnaire Date Thrive assessed: 12/23/23 TAQUERIA-7 AMB Questionnaire TAQUERIA-7 Date TAQUERIA - 7 assessed: 12/23/23 Source: Developed by Drs. Dru Gallagher, Aliyah Fitzpatrick, Obdulio Wei and colleagues, with an educational thomas from [employer]. Review of Systems Const Denies headache(s) Eyes Denies loss of vision ENT Denies vertigo, Denies dizziness, Denies headache(s) and Denies sore throat Card Denies chest pain, Denies leg edema and Denies lightheadedness Resp Denies cough, Denies hemoptysis and Denies wheezing GI Denies abdominal pain, Denies melena, Denies constipation, Denies diarrhea and Denies vomiting Denies dysuria, Denies urinary frequency and Denies urinary urgency Musc Denies arthralgias, Denies joint swelling, Denies numbness and Denies tingling Neuro Denies Abnormal speech present, Denies behavioral changes, Denies vertigo, Denies dizziness, Denies headache(s), Denies loss of vision, Denies memory loss, Denies numbness and Denies tingling Psych Denies anxiety, Denies behavioral changes, Denies depression, Denies memory loss and Denies panic attacks Adarsh/Lymph Denies easy bleeding and Denies easy bruising Aller/Immun Denies wheezing Physical exam (Primary Care) Vital Signs: Last Vital Signs Pulse 72 05/19/24 10:49 BP 142/86 H 05/19/24 10:49 Pulse Ox 98 05/19/24 10:49 Oxygen Delivery Method Room Air 05/19/24 10:49 Tobacco/Smoking Status: Tobacco use Status Tobacco use date assessed 12/23/23 05/19/24 10:39 Patient Tobacco Use Status Former Tobacco user 05/19/24 10:39 Tobacco use type Cigarette 05/19/24 10:39 e-Cigarette/Vaping Use Never Used 05/19/24 10:39 Thrive Assessment: Date of Thrive Assessment Date Thrive assessed 12/23/23 05/19/24 10:39 Const General: healthy appearing, no acute distress, alert and awake Nutritional Appearance: well nourished Orientation/consciousness: oriented to person, oriented to place and oriented to time HENMT Ears: TM's normal bilaterally General nose exam: Normal nasal mucous membranes and turbinates present Eyes Conjunctivae: conjunctivae normal Sclerae: sclerae normal Pupils: Equal, round and reactive pupils present Neck Neck: Yes no lymphadenopathy and Yes no JVD Thyroid: Thyroid normal Carotids: no bruits Resp Effort & Inspection: normal respiratory effort and not tachypneic Auscultation: no crackles, no rales, no rhonchi and no wheezes Cardio Rate: regular rate Rhythm: regular rhythm Heart sounds: no murmurs and normal S1 and S2 GI Palpation (GI): Soft to palpation, nontender, no hepatomegaly and no splenomegaly Auscultation: normal bowel sounds Skin General skin exam: no rashes or lesions noted and dry skin Neuro General: oriented to person, oriented to place and oriented to time Cranial nerves: Yes Equal, round and reactive pupils present Speech: No Abnormal speech present Gait exam (Neuro): Normal gait present Motor exam (neuro): no tremor noted Extrem Other: NOTED RIGHT BELOW-KNEE AMPUTATION Right upper extremity: full ROM Left upper extremity: full ROM Right lower extremity: full ROM; no edema Left lower extremity: full ROM; no edema Psych Mental Status: mental status grossly normal Speech and movement: Normal speech and movement present Affect: normal affect Attitude: cooperative Thought process: Normal thought process present Assessment and Plan Assessment & Plan (1) Below-knee amputation of right lower extremity: Code(s): S88.111A - Complete traumatic amputation at level between knee and ankle, right lower leg, initial encounter Qualifiers: Encounter type: subsequent encounter Qualified Code(s): S88.111D - Complete traumatic amputation at level between knee and ankle, right lower leg, subsequent encounter Plan: As per HPI patient recently underwent a right below-knee amputation. Has been some time and short-term rehab after hospitalization. Only partially weight- bearing on his left lower extremity. Currently using wheelchair for transportation. Still in some significant pain thus using oxycodone 15 mg q.i.d.. Will slowly wean him off of opiates over the next few weeks. Does have upcoming appointment with wound management and does have visiting nurses coming to do wound management at home. Medications: New metoprolol succinate ER 50 mg PO DAILY 90 tabs 1RF I10 - Essential (primary) hypertension gabapentin 300 mg PO BEDTIME 30 caps 3RF 30 days S88.111D - Complete traumatic amputation at level between knee and ankle, right lower leg, subsequent encounter oxycodone Partial Fill upon patient request. 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 insulin glargine (Lantus Solostar U-100 Insulin) 30 units (0.3 mL) subcut QAM 9 mL 3RF 30 days E11.52 - Type 2 diabetes mellitus with diabetic peripheral angiopathy with gangrene, Z79.4 - [facility] (current) use of insulin metformin 1,000 mg PO BID 180 tabs 1RF E11.52 - Type 2 diabetes mellitus with diabetic peripheral angiopathy with gangrene, 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.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 omeprazole 40 mg PO DAILY@0630 30 caps 6RF D64.9 - Anemia, unspecified, K21.00 - Gastro-esophageal reflux disease with esophagitis, without bleeding zolpidem (Ambien) 5 mg PO BEDTIME PRN 7 tabs 0RF sleep 7 days F51.01 - Primary insomnia tirzepatide (Mounjaro) 5 mg (0.5 mL) subcut QWEEK 2 mL 3RF 4 weeks E11.52 - Type 2 diabetes mellitus with diabetic peripheral angiopathy with gangrene, 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
[2024-05-19 10:49] VITALS: BP 142/86; PULSE 72; O2SAT 98
== END 2024-05-19 11:32 | disposition home or self-care (01) ==
PROVIDERS: PCP Physician Assistant; Visit Provider Physician Assistant
DX: S88.111D Complete traumatic amputation at level between knee and ankle, right lower leg, subsequent encounter (principal)
CPT/HCPCS: 99214

== ENCOUNTER 2024-06-01 15:44 | Outpatient (AMB) | payer OTHER, SELFPAY ==
--- NOTE | 2024-06-01 15:39 | A.OFFPC_ITS ---
Intake Visit Reasons: 2-3 wk follow up Amputation DMII with neuropathy. 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 Accompanied by: Self / Same As Patient Allergies No Known Allergies Allergy (Verified 06/01/24 16:08) Medication List - Last Reconciled 06/01/24 by Fredy Adair PA-C acetaminophen 650 mg PO Q6H PRN adhesive tape As directed amlodipine 10 mg PO DAILY apixaban (Eliquis) 5 mg PO BID atorvastatin 40 mg PO DAILY bisacodyl (Dulcolax (bisacodyl)) 10 mg (2 x 5 mg) PO BEDTIME 2 days blood pressure monitor (Blood Pressure Kit) As directed ferrous sulfate 325 mg PO DAILY flash glucose scanning reader ([employer]Style Jayla 2 [place]) for continuous use flash glucose sensor (FreeStyle Jayla 2 Sensor kit) for continuous use gabapentin 300 mg PO BEDTIME 30 days insulin glargine (Lantus Solostar U-100 Insulin) 30 units (0.3 mL) subcut QAM 30 days isosorbide mononitrate ER 30 mg PO DAILY losartan 100 mg PO DAILY metformin 1,000 mg PO BID metoprolol succinate ER 50 mg PO DAILY omeprazole 40 mg PO DAILY@0630 ondansetron 8 mg PO Q12H 15 days oxycodone 15 mg (3 x 5 mg) PO Q6H 7 days pen needle, diabetic test 4 times daily pen needle, diabetic (BD Ultra-Fine Karen Pen Needle) As directed 4 times a day tirzepatide (Mounjaro) 5 mg (0.5 mL) subcut QWEEK 4 weeks zolpidem (Ambien) 5 mg PO BEDTIME PRN 7 days Tobacco use date assessed: 12/23/23 Dental Screening Dental Screen Date: 03/08/24 HPI 2-3 wk follow up Amputation DMII with neuropathy. HPI Details Patient is a 53-year-old male here today for a 2 month follow-up visit? Has a past medical history significant for type 2 diabetes, peripheral artery disease with history of left metatarsal amputation, history of DVT on Eliquis, hypertension, GERD and hyperlipidemia.? Right foot pinky toe amputation due to osteomyelitis : Now followed by Dr Villegas at [facility]. Unfortunately underwent another amputation in March 2024. Was sent to short-term we have to regain strength. Is only partial weight- bearing on his left lower extremity at this time. He now needs his pain controlled temporarily by his PCP in toes able to fully heal from his amputation. He has now followed by wound care specialty and has home nurses coming to do wound care with him. He does report he will be going to [facility] office to get fitted for a prosthetic. As far as his pain he still is in some considerable amount of pain in using oxycodone 15 mg BID- TID. Fortunately does report falling and injuring his amputation a bit which has caused a bit more pain. We did discuss slowly weaning his pain medication to reduce withdrawal as he has been on opiate pain medication for nearly a month now. . [facility] Medical History (Updated 06/01/24 @ 16:18 by Fredy Adair PA-C) Nausea and vomiting Left ventricular ejection fraction of 40-49% SOB (shortness of breath) on exertion Anemia DMII (diabetes mellitus, type 2) Open wound Anemia of chronic disease Peripheral vascular disease Diabetic foot ulcer Anemia Orthostatic hypotension Gangrene of toe of left foot GERD (gastroesophageal reflux disease) History of angiography PICC (peripherally inserted central catheter) in place Bacteremia Diabetic foot ulcer PAD (peripheral artery disease) Diabetes Surgical History History of esophagogastroduodenoscopy (EGD) H/O colonoscopy History of transmetatarsal amputation of left foot Amputated toe of right foot (11/05/20) Family History Other Diabetes No family history of cancer Social History Household Members: None Housing: Apartment Are you a primary weekend caregiver to a significant other at home: No Do you presently have visiting nurse or other home services: No Alcohol intake: current Alcohol intake frequency: holidays/special occasions only Alcohol type: hard liquor Comment: pt still feeling the same Patient Tobacco Use Status: Former Tobacco user Tobacco use type: Cigarette Cigarette Packs Per Day: 0.5 Cigarettes Per Day: 1 Years Smoked: 15 Packs Per Year: 8 Packs per year/per ci.75 e-Cigarette/Vaping Use: Never Used Second Hand Smoke Exposure: No service: No Current occupational status: unemployed Cognitive needs: No Hearing needs: No Vision needs: No Questionnaire Thrive Questionnaire Date Thrive assessed: 12/23/23 TAQUERIA-7 AMB Questionnaire TAQUERIA-7 Date TAQUERIA - 7 assessed: 12/23/23 Source: Developed by Drs. rDu Gallagher, Aliyah Fitzpatrick, Obdulio Wei and colleagues, with an educational thomas from [employer]. Review of Systems Const Denies headache(s) Eyes Denies loss of vision ENT Denies vertigo, Denies dizziness, Denies headache(s) and Denies sore throat Card Denies chest pain, Denies leg edema and Denies lightheadedness Resp Denies cough, Denies hemoptysis and Denies wheezing GI Denies abdominal pain, Denies melena, Denies constipation, Denies diarrhea and Denies vomiting Denies dysuria, Denies urinary frequency and Denies urinary urgency Musc Denies arthralgias, Denies joint swelling, Denies numbness and Denies tingling Neuro Denies behavioral changes, Denies vertigo, Denies dizziness, Denies headache(s), Denies loss of vision, Denies memory loss, Denies numbness and Denies tingling Psych Denies anxiety, Denies behavioral changes, Denies depression, Denies memory loss and Denies panic attacks Adarsh/Lymph Denies easy bleeding and Denies easy bruising Aller/Immun Denies wheezing Physical exam (Primary Care) Tobacco/Smoking Status: Tobacco use Status Tobacco use date assessed 12/23/23 06/01/24 15:42 Patient Tobacco Use Status Former Tobacco user 06/01/24 15:42 Tobacco use type Cigarette 06/01/24 15:42 e-Cigarette/Vaping Use Never Used 06/01/24 15:42 Thrive Assessment: Date of Thrive Assessment Date Thrive assessed 12/23/23 06/01/24 15:42 Telehealth Telehealth Telehealth Platform: Telephone Location of provider rendering services: practice address Location of patient: address on file Patient Identification confirmed using: Name, : Yes Telehealth method: voice only Patient verbally consented to treatment: Yes Patient verbally consented to billing insurance company: Yes Patient informed of any privacy concerns related to visit: Yes Minutes spent on Phone/Video with Pt.: 11 Assessment and Plan Assessment & Plan (1) Below-knee amputation of right lower extremity: Code(s): S88.111A - Complete traumatic amputation at level between knee and ankle, right lower leg, initial encounter Qualifiers: Encounter type: subsequent encounter Qualified Code(s): S88.111D - Com plete traumatic amputation at level between knee and ankle, right lower leg, subsequent encounter Plan: As per HPI patient recently underwent a right below-knee amputation. Has been some time and short-term rehab after hospitalization. Only partially weight- bearing on his left lower extremity. Currently using wheelchair for transportation. Still in some significant pain thus using oxycodone 15 mg q.i.d.. Will slowly wean him off of opiates over the next few weeks. He is followed by wound management and has home care nurse doing bandage changes. (2) Lumbar stenosis: Code(s): M48.061 - Spinal stenosis, lumbar region without neurogenic claudication Qualifiers: Neurogenic claudication status: unspecified Qualified Code(s): M48.061 - Spinal stenosis, lumbar region without neurogenic claudication Plan: Patient interested in getting a lumbar support brace to use as he is sitting more in a wheelchair and feels his posture is not good. He feels that a lumbar support brace will help him with his slouched posture lost sitting in a wheelchair. Medications: New back brace As directed 1 ea 0RF M48.061 - Spinal stenosis, lumbar region without neurogenic claudication Refilled oxycodone Partial Fill upon patient request. 15 mg (3 x 5 mg) PO Q6H 84 tabs 0RF pain 7 days S88.111D - Complete traumatic amputation at level between knee and ankle, right lower leg, subsequent encounter Coding Level of Care Code Tele Est Pt Level 4 (66110) Diagnoses Below-knee amputation of right lower extremity, subsequent encounter S88.111D Encounter type: subsequent encounter Spinal stenosis of lumbar region, unspecified whether neurogenic claudication present M48.061 Neurogenic claudication status: unspecified
== END 2024-06-01 17:07 | disposition home or self-care (01) ==
LOC: HO.HMGH 15:44
PROVIDERS: PCP Physician Assistant; Visit Provider Physician Assistant
DX: M48.061 Spinal stenosis, lumbar region without neurogenic claudication (principal); S88.111D Complete traumatic amputation at level between knee and ankle, right lower leg, subsequent encounter
CPT/HCPCS: 99442

== ENCOUNTER 2024-06-21 10:09 | Outpatient (AMB) | payer OTHER, SELFPAY ==
--- NOTE | 2024-06-21 10:01 | A.OFFPC_ITS ---
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 Information Interpreted: non-clinical & clinical Electric Organ Checker: Not Required per policy Accompanied by: Self / Same As Patient Allergies No Known Allergies Allergy (Verified 06/21/24 10:15) Medication List - Last Reconciled 06/21/24 by Fredy Adair PA-C acetaminophen 650 mg PO Q6H PRN adhesive tape As directed amlodipine 10 mg PO DAILY apixaban (Eliquis) 5 mg PO BID atorvastatin 40 mg PO DAILY back brace As directed bisacodyl (Dulcolax (bisacodyl)) 10 mg (2 x 5 mg) PO BEDTIME 2 days blood pressure monitor (Blood Pressure Kit) As directed ferrous sulfate 325 mg PO DAILY flash glucose scanning reader (Small [employer]yle Jayla 2 [place]) for continuous use flash glucose sensor ([employer]Style Jayla 2 Sensor kit) for continuous use gabapentin 300 mg PO BEDTIME 30 days insulin glargine (Lantus Solostar U-100 Insulin) 30 units (0.3 mL) subcut QAM 30 days isosorbide mononitrate ER 30 mg PO DAILY losartan 100 mg PO DAILY metformin 1,000 mg PO BID metoprolol succinate ER 25 mg PO DAILY omeprazole 40 mg PO DAILY@0630 ondansetron 8 mg PO Q12H 15 days oxycodone 15 mg (3 x 5 mg) PO Q6H 7 days oxycodone ER (OxyContin) 20 mg PO BID pen needle, diabetic test 4 times daily pen needle, diabetic (BD Ultra-Fine Karen Pen Needle) As directed 4 times a day tirzepatide (Mounjaro) 5 mg (0.5 mL) subcut QWEEK 4 weeks zolpidem (Ambien) 5 mg PO BEDTIME PRN 7 days Tobacco use date assessed: 12/23/23 Dental Screening Dental Screen Date: 03/08/24 HPI 2 weeks for pain management HPI Details Patient is a 53-year-old male here today for a 2 month follow-up visit? Has a past medical history significant for type 2 diabetes, peripheral artery disease with history of left metatarsal amputation, history of DVT on Eliquis, hypertension, GERD and hyperlipidemia.? Interval history--> Right foot pinky toe amputation due to osteomyelitis : Now followed by Dr Villegas at [facility]. Unfortunately underwent another amputation in March 2024. Was sent to short-term we have to regain strength. Is only partial weight- bearing on his left lower extremity at this time. He now needs his pain controlled temporarily by his PCP in toes able to fully heal from his amputation. He has now followed by wound care specialty and has home nurses coming to do wound care with him. He does report he will be going to [facility] prosthesis office to get fitted for a prosthetic. As far as his pain he still is in some considerable amount of pain in using oxycodone 15 mg BID- TID. He was on OxyContin 20 mg though with further discussion he is now about 7 weeks out of surgery in should not need this much pain medication, he agrees and is willing to reduce his dose to only using oxycodone 10-15 mg b.i.d. We did discuss slowly weaning his pain medication to reduce withdrawal as he has been on opiate pain medication for nearly a month now. [facility] Medical History (Updated 06/01/24 @ 16:18 by Fredy Adair PA-C) Nausea and vomiting Left ventricular ejection fraction of 40-49% SOB (shortness of breath) on exertion Anemia DMII (diabetes mellitus, type 2) Open wound Anemia of chronic disease Peripheral vascular disease Diabetic foot ulcer Anemia Orthostatic hypotension Gangrene of toe of left foot GERD (gastroesophageal reflux disease) History of angiography PICC (peripherally inserted central catheter) in place Bacteremia Diabetic foot ulcer PAD (peripheral artery disease) Diabetes Surgical History History of esophagogastroduodenoscopy (EGD) H/O colonoscopy History of transmetatarsal amputation of left foot Amputated toe of right foot (11/05/20) Family History Other Diabetes No family history of cancer Social History Household Members: None Housing: Apartment Are you a primary outdoor emergency care technician to a significant other at home: No Do you presently have visiting nurse or other home services: No Alcohol intake: current Alcohol intake frequency: holidays/special occasions only Alcohol type: hard liquor Comment: pt still feeling the same Patient Tobacco Use Status: Former Tobacco user Tobacco use type: Cigarette Cigarette Packs Per Day: 0.5 Cigarettes Per Day: 1 Years Smoked: 15 e-Cigarette/Vaping Use: Never Used Second Hand Smoke Exposure: No service: No Current occupational status: unemployed Cognitive needs: No Hearing needs: No Vision needs: No Questionnaire Thrive Questionnaire Date Thrive assessed: 12/23/23 TAQUERIA-7 AMB Questionnaire TAQUERIA-7 Date TAQUERIA - 7 assessed: 12/23/23 Source: Developed by Drs. Dru Gallagher, Aliyah Fitzpatrick, Obdulio Wei and colleagues, with an educational thomas from [employer]. Review of Systems Const Denies headache(s) Eyes Denies loss of vision ENT Denies vertigo, Denies dizziness, Denies headache(s) and Denies sore throat Card Denies chest pain, Denies leg edema and Denies lightheadedness Resp Denies cough, Denies hemoptysis and Denies wheezing GI Denies abdominal pain, Denies melena, Denies constipation, Denies diarrhea and Denies vomiting Denies dysuria, Denies urinary frequency and Denies urinary urgency Musc Denies arthralgias, Denies joint swelling, Denies numbness and Denies tingling Neuro Denies behavioral changes, Denies vertigo, Denies dizziness, Denies headache(s), Denies loss of vision, Denies memory loss, Denies numbness and Denies tingling Psych Denies anxiety, Denies behavioral changes, Denies depression, Denies memory loss and Denies panic attacks Adarsh/Lymph Denies easy bleeding and Denies easy bruising Aller/Immun Denies wheezing Physical exam (Primary Care) Tobacco/Smoking Status: Tobacco use Status Tobacco use date assessed 12/23/23 06/21/24 10:08 Patient Tobacco Use Status Former Tobacco user 06/21/24 10:08 Tobacco use type Cigarette 06/21/24 10:08 e-Cigarette/Vaping Use Never Used 06/21/24 10:08 Thrive Assessment: Date of Thrive Assessment Date Thrive assessed 12/23/23 06/21/24 10:08 Telehealth Telehealth Telehealth Platform: Telephone Location of provider rendering services: practice address Location of patient: address on file Patient Identification confirmed using: Name, : Yes Telehealth method: voice only Patient verbally consented to treatment: Yes Patient verbally consented to billing insurance company: Yes Patient informed of any privacy concerns related to visit: Yes Minutes spent on Phone/Video with Pt.: 15 Assessment and Plan Assessment & Plan (1) Below-knee amputation of right lower extremity: Code(s): S88.111A - Complete traumatic amputation at level between knee and ankle, right lower leg, initial encounter Qualifiers: Encounter type: subsequent encounter Qualified Code(s): S88.111D - Complete traumatic amputation at level between knee and ankle, right lower leg, subsequent encounter Plan: Patient now a month and a out below right knee amputation. Has been some time and short-term rehab after hospitalization. He is doing occupational and physical therapy. Has followed up with DME supplier for prosthetic. We did discuss his opiate therapy and is willing to stopped 20 mg OxyContin. Will continue to use oxycodone 5 mg 2-3 tablets before physical therapy sessions Will slowly wean him off of opiates over the next few weeks. He is followed by wound management and has home care nurse doing bandage changes. He reports his surgical wounds have completely healed. 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 15 mg (3 x 5 mg) PO Q6H 7 days 84 tabs 0RF pain S88.111D - Complete traumatic amputation at level between knee and ankle, right lower leg, subsequent encounter Coding Level of Care Code Tele Est Pt Level 3 (91714) Diagnoses Below-knee amputation of right lower extremity, subsequent encounter S88.111D Encounter type: subsequent encounter
== END 2024-06-21 12:42 | disposition home or self-care (01) ==
LOC: HO.HMCH 10:09
PROVIDERS: PCP Physician Assistant; Visit Provider Physician Assistant
DX: S88.111D Complete traumatic amputation at level between knee and ankle, right lower leg, subsequent encounter (principal)

== ENCOUNTER → 2024-06-21 10:09 | Outpatient (BNVA) | payer OTHER, SELFPAY | PROVIDERS: PCP Physician Assistant; Visit Provider Physician Assistant ==

== ENCOUNTER 2024-07-07 10:23 | Outpatient (AMB) | payer OTHER, SELFPAY ==
--- NOTE | 2024-07-07 10:17 | A.OFFPC_ITS ---
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 Engineer: Not Required per policy Accompanied by: Self / Same As Patient Allergies No Known Allergies Allergy (Verified 07/07/24 10:37) Medication List - Last Reconciled 07/07/24 by Fredy Adair PA-C acetaminophen 650 mg PO Q6H PRN adhesive tape As directed amlodipine 10 mg PO DAILY apixaban (Eliquis) 5 mg PO BID atorvastatin 40 mg PO DAILY back brace As directed bisacodyl (Dulcolax (bisacodyl)) 10 mg (2 x 5 mg) PO BEDTIME 2 days blood pressure monitor (Blood Pressure Kit) As directed ferrous sulfate 325 mg PO DAILY flash glucose scanning reader ([employer]Style Jayla 2 [place]) for continuous use flash glucose sensor (MobilisafeStyle Jayla 2 Sensor kit) for continuous use gabapentin 300 mg PO BEDTIME 30 days insulin glargine (Lantus Solostar U-100 Insulin) 30 units (0.3 mL) subcut QAM 30 days isosorbide mononitrate ER 30 mg PO DAILY losartan 100 mg PO DAILY 90 days metformin 1,000 mg PO BID metoprolol succinate ER 25 mg PO DAILY 90 days omeprazole 40 mg PO DAILY@0630 ondansetron 8 mg PO Q12H 15 days oxycodone 15 mg (3 x 5 mg) PO Q6H 7 days pen needle, diabetic test 4 times daily pen needle, diabetic (BD Ultra-Fine Karen Pen Needle) As directed 4 times a day tirzepatide (Mounjaro) 5 mg (0.5 mL) subcut QWEEK 4 weeks zolpidem (Ambien) 5 mg PO BEDTIME PRN 7 days Tobacco use date assessed: 12/23/23 Dental Screening Dental Screen Date: 03/08/24 HPI Medication F/U per PCP HPI Details Patient is a 53-year-old male being evaluated today via telephone Has a past medical history significant for type 2 diabetes, peripheral artery disease with history of left metatarsal amputation, history of DVT on Eliquis, hypertension, GERD and hyperlipidemia.? Interval history--> Right foot amputation due to osteomyelitis : Now followed by Dr Villegas at [facility]. Unfortunately underwent another amputation in March 2024. Was sent to short-term we have to regain strength. Is only partial weight- bearing on his left lower extremity at this time. He now needs his pain controlled temporarily by his PCP in toes able to fully heal from his amputation. He has now followed by wound care specialty and has home nurses coming to do wound care with him. He does report he will be going to [facility] prosthesis office to get fitted for a prosthetic. As far as his pain he still is in some considerable amount of pain in using oxycodone 15 mg BID- TID. We discontinues Oxycontin 20mg. HE IS DUE TO GET PROSTHESIS IN THE NEXT 2 WEEKS. AND HE HAS BEEN TOLD THAT HE WILL BE IN SOME PAIN WHILE GETTING USE TO THE PROSTHESIS. We did discuss slowly weaning his pain medication to reduce withdrawal as he has been on opiate pain medication for nearly a month now. [facility] Medical History Nausea and vomiting Left ventricular ejection fraction of 40-49% SOB (shortness of breath) on exertion Anemia DMII (diabetes mellitus, type 2) Open wound Anemia of chronic disease Peripheral vascular disease Diabetic foot ulcer Anemia Orthostatic hypotension Gangrene of toe of left foot GERD (gastroesophageal reflux disease) History of angiography PICC (peripherally inserted central catheter) in place Bacteremia Diabetic foot ulcer PAD (peripheral artery disease) Diabetes Surgical History History of esophagogastroduodenoscopy (EGD) H/O colonoscopy History of transmetatarsal amputation of left foot Amputated toe of right foot (11/05/20) Family History Other Diabetes No family history of cancer Social History Household Members: None Housing: Apartment Are you a primary resident care manager rn to a significant other at home: No Do you presently have visiting nurse or other home services: No Alcohol intake: current Alcohol intake frequency: holidays/special occasions only Alcohol type: hard liquor Comment: pt still feeling the same Patient Tobacco Use Status: Former Tobacco user Tobacco use type: Cigarette Cigarette Packs Per Day: 0.5 Cigarettes Per Day: 1 Years Smoked: 15 e-Cigarette/Vaping Use: Never Used Second Hand Smoke Exposure: No service: No Current occupational status: unemployed Cognitive needs: No Hearing needs: No Vision needs: No Questionnaire Thrive Questionnaire Date Thrive assessed: 12/23/23 TAQUERIA-7 AMB Questionnaire TAQUERIA-7 Date TAQUERIA - 7 assessed: 12/23/23 Source: Developed by Drs. Dru Gallagher, Aliyah Fitzpatrick, Obdulio Wei and colleagues, with an educational thomas from [employer]. Review of Systems Const Denies headache(s) Eyes Denies loss of vision ENT Denies vertigo, Denies dizziness, Denies headache(s) and Denies sore throat Card Denies chest pain, Denies leg edema and Denies lightheadedness Resp Denies cough, Denies hemoptysis and Denies wheezing GI Denies abdominal pain, Denies melena, Denies constipation, Denies diarrhea and Denies vomiting Denies dysuria, Denies urinary frequency and Denies urinary urgency Musc Denies arthralgias, Denies joint swelling, Denies numbness and Denies tingling Neuro Denies behavioral changes, Denies vertigo, Denies dizziness, Denies headache(s), Denies loss of vision, Denies memory loss, Denies numbness and Denies tingling Psych Denies anxiety, Denies behavioral changes, Denies depression, Denies memory loss and Denies panic attacks Adarsh/Lymph Denies easy bleeding and Denies easy bruising Aller/Immun Denies wheezing Physical exam (Primary Care) Tobacco/Smoking Status: Tobacco use Status Tobacco use date assessed 12/23/23 07/07/24 10:18 Patient Tobacco Use Status Former Tobacco user 07/07/24 10:18 Tobacco use type Cigarette 07/07/24 10:18 e-Cigarette/Vaping Use Never Used 07/07/24 10:18 Thrive Assessment: Date of Thrive Assessment Date Thrive assessed 12/23/23 07/07/24 10:18 Telehealth Telehealth Telehealth Platform: Telephone Location of provider rendering services: practice address Location of patient: address on file Patient Identification confirmed using: Name, : Yes Telehealth method: voice only Patient verbally consented to treatment: Yes Patient verbally consented to billing insurance company: Yes Patient informed of any privacy concerns related to visit: Yes Minutes spent on Phone/Video with Pt.: 11 Coding Level of Care Code Tele Est Pt Level 4 (91903) Diagnoses Below-knee amputation of right lower extremity, subsequent encounter S88.111D Encounter type: subsequent encounter Assessment & Plan Assessment & Plan (1) Below-knee amputation of right lower extremity: Code(s): S88.111A - Complete traumatic amputation at level between knee and ankle, right lower leg, initial encounter Category: Medical Qualifiers: Encounter type: subsequent encounter Qualified Code(s): S88.111D - Complete traumatic amputation at level between knee and ankle, right lower leg, subsequent encounter Plan: WE DID DISCUSS PATIENT'S PAIN MANAGEMENT I AM REPORTS HE IS STILL IN SOME SIGNIFICANT PAIN HE HAS BEEN TRYING TO BE MORE MOBILE. HE IS DUE TO GET A PROSTHETIC AND REPORTS HE WAS TOLD HE WILL BE IN SOME MORE PAIN WHEN TRYING TO GET USED TO HIS PROSTHETIC. WE DID DISCONTINUE HIS 20 MG OXYCONTIN AND NOW ON OXYCODONE 5-15 MG P.R.N. FOR HIS PAIN. PATIENT DOES UNDERSTAND HE IS NEARLY 3 MONTHS OUT AMPUTATION SURGERY AT THIS POINT. Nonetheless Will continue him on his current dose of oxycodone for now until he is able to get use to his prosthesis. He remains positive about being able to walk and live a more healthy life. --Home visit Nurse - (Braden) [facility] -[phone] Medications: New miscellaneous medical supply PATIENT IN NEED OF FOREARM CRUTCHES 2 ea miscellaneous DAILY 2 ea 0RF 99 days S88.111D - Complete traumatic amputation at level between knee and ankle, right lower leg, subsequent encounter Refilled insulin glargine (Lantus Solostar U-100 Insulin) 30 units (0.3 mL) subcut QAM 9 mL 3RF 30 days E11.52 - Type 2 diabetes mellitus with diabetic peripheral angiopathy with gangrene, Z79.4 - termite exterminator (current) use of insulin tirzepatide (Mounjaro) 5 mg (0.5 mL) subcut QWEEK 2 mL 3RF 4 weeks E11.52 - Type 2 diabetes mellitus with diabetic peripheral angiopathy with gangrene, Z79.4 - termite exterminator (current) use of insulin oxycodone Partial Fill upon patient request. 15 mg (3 x 5 mg) PO Q6H 84 tabs 0RF pain 7 days S88.111D - Complete traumatic amputation at level between knee and ankle, right lower leg, subsequent encounter metformin 1,000 mg PO BID 180 tabs 1RF E11.52 - Type 2 diabetes mellitus with diabetic peripheral angiopathy with gangrene, Z79.4 - termite exterminator (current) use of insulin flash glucose sensor (FreeStyle Jayla 2 Sensor kit) for continuous use 2 ea 6RF E11.52 - Type 2 diabetes mellitus with diabetic peripheral angiopathy with gangrene, Z79.4 - [facility] (current) use of insulin flash glucose scanning reader (FreeStyle Jayla 2 [place]) for continuous use 1 ea 0RF E11.52 - Type 2 diabetes mellitus with diabetic peripheral angiopathy with gangrene, Z79.4 - termite exterminator (current) use of insulin
== END 2024-07-07 11:20 | disposition home or self-care (01) ==
LOC: HO.HMCH 10:23
PROVIDERS: PCP Physician Assistant; Visit Provider Physician Assistant
DX: S88.111D Complete traumatic amputation at level between knee and ankle, right lower leg, subsequent encounter (principal)

== ENCOUNTER → 2024-07-07 10:23 | Outpatient (BNVA) | payer OTHER, SELFPAY | PROVIDERS: PCP Physician Assistant; Visit Provider Physician Assistant ==

== ENCOUNTER 2024-08-08 09:17 | Outpatient (AMB) | payer OTHER, SELFPAY ==
--- NOTE | 2024-08-08 09:15 | A.OFFPC_ITS ---
Intake Visit Reasons: f/u pain management Application Packaging Consultant Required: No Accompanied by: Self / Same As Patient Allergies No Known Allergies Allergy (Verified 08/08/24 09:24) Medication List - Last Reconciled 08/08/24 by Fredy Adair PA-C acetaminophen 650 mg PO Q6H PRN adhesive tape As directed amlodipine 10 mg PO DAILY apixaban (Eliquis) 5 mg PO BID atorvastatin 40 mg PO DAILY back brace As directed bisacodyl (Dulcolax (bisacodyl)) 10 mg (2 x 5 mg) PO BEDTIME 2 days blood pressure monitor (Blood Pressure Kit) As directed ferrous sulfate 325 mg PO DAILY flash glucose scanning reader ([employer]Style Jayla 2 [place]) for continuous use flash glucose sensor (FreeStyle Jayla 2 Sensor kit) for continuous use gabapentin 300 mg PO BEDTIME 30 days insulin glargine (Lantus Solostar U-100 Insulin) 30 units (0.3 mL) subcut QAM 30 days isosorbide mononitrate ER 30 mg PO DAILY losartan 100 mg PO DAILY 90 days metformin 1,000 mg PO BID metoprolol succinate ER 25 mg PO DAILY 90 days miscellaneous medical supply 2 ea miscellaneous DAILY 99 days omeprazole 40 mg PO DAILY@0630 ondansetron 8 mg PO Q12H 15 days oxycodone 15 mg (3 x 5 mg) PO Q6H 7 days pen needle, diabetic test 4 times daily pen needle, diabetic (BD Ultra-Fine Karen Pen Needle) As directed 4 times a day tirzepatide (Mounjaro) 5 mg (0.5 mL) subcut QWEEK 4 weeks zolpidem (Ambien) 5 mg PO BEDTIME PRN 7 days Tobacco use date assessed: 12/23/23 Dental Screening Dental Screen Date: 03/08/24 HPI f/u pain management HPI Details Patient is a 53-year-old male being evaluated today via telephone Has a past medical history significant for type 2 diabetes, peripheral artery disease with history of left metatarsal amputation, history of DVT on Eliquis, hypertension, GERD and hyperlipidemia.? Interval history--> Right foot amputation due to osteomyelitis : Now followed by Dr Villegas at [facility]. Unfortunately underwent another amputation in March 2024. Was sent to short-term we have to regain strength. Is only partial weight- bearing on his left lower extremity at this time. He now needs his pain controlled temporarily by his PCP in toes able to fully heal from his amputation. He has now followed by wound care specialty and has home nurses coming to do wound care with him. . As far as his pain he still is in some considerable amount of pain in using oxycodone 15 mg BID- TID. We discontinues Oxycontin 20mg. HE NOW HAS PHYSICAL THERAPY COMING TO HIS HOME 3 times a week. HE HAS RECEIVED HIS PROSTHESIS AND HAS BEEN TRYING TO WALK AROUND HIS HOME AND HIS NEIGHBORHOOD. HE STILL REPORTS SOME PRETTY SIGNIFICANT PAIN IN THE AM PUTATION SITE. We did discuss slowly weaning his pain medication to reduce withdrawal as he has been on opiate pain medication for nearly a month now. [facility] History Nausea and vomiting Left ventricular ejection fraction of 40-49% SOB (shortness of breath) on exertion Anemia DMII (diabetes mellitus, type 2) Open wound Anemia of chronic disease Peripheral vascular disease Diabetic foot ulcer Anemia Orthostatic hypotension Gangrene of toe of left foot GERD (gastroesophageal reflux disease) History of angiography PICC (peripherally inserted central catheter) in place Bacteremia Diabetic foot ulcer PAD (peripheral artery disease) Diabetes Surgical History History of esophagogastroduodenoscopy (EGD) H/O colonoscopy History of transmetatarsal amputation of left foot Amputated toe of right foot (11/05/20) Family History Other Diabetes No family history of cancer Social History Household Members: None Housing: Apartment Are you a primary personal care assistant to a significant other at home: No Do you presently have visiting nurse or other home services: No Alcohol intake: current Alcohol intake frequency: holidays/special occasions only Alcohol type: hard liquor Comment: pt still feeling the same Patient Tobacco Use Status: Former Tobacco user Tobacco use type: Cigarette Cigarette Packs Per Day: 0.5 Cigarettes Per Day: 1 Years Smoked: 15 Packs Per Year: 8 Packs per year/per ci.75 e-Cigarette/Vaping Use: Never Used Second Hand Smoke Exposure: No service: No Current occupational status: unemployed Cognitive needs: No Hearing needs: No Vision needs: No Questionnaire Thrive Questionnaire Date Thrive assessed: 12/23/23 TAQUERIA-7 AMB Questionnaire TAQUERIA-7 Date TAQUERIA - 7 assessed: 12/23/23 Source: Developed by Drs. Dru Gallagher, Aliyah Fitzpatrick, Obdulio Wei and colleagues, with an educational thomas from [employer]. Review of Systems Const Denies headache(s) Eyes Denies loss of vision ENT Denies vertigo, Denies dizziness, Denies headache(s) and Denies sore throat Card Denies chest pain, Denies leg edema and Denies lightheadedness Resp Denies cough, Denies hemoptysis and Denies wheezing GI Denies abdominal pain, Denies melena, Denies constipation, Denies diarrhea and Denies vomiting Denies dysuria, Denies urinary frequency and Denies urinary urgency Musc Denies arthralgias, Denies joint swelling, Denies numbness and Denies tingling Neuro Denies behavioral changes, Denies vertigo, Denies dizziness, Denies headache(s), Denies loss of vision, Denies memory loss, Denies numbness and Denies tingling Psych Denies anxiety, Denies behavioral changes, Denies depression, Denies memory loss and Denies panic attacks Adarsh/Lymph Denies easy bleeding and Denies easy bruising Aller/Immun Denies wheezing Physical exam (Primary Care) Tobacco/Smoking Status: Tobacco use Status Tobacco use date assessed 12/23/23 08/08/24 09:16 Patient Tobacco Use Status Former Tobacco user 08/08/24 09:16 Tobacco use type Cigarette 08/08/24 09:16 e-Cigarette/Vaping Use Never Used 08/08/24 09:16 Thrive Assessment: Date of Thrive Assessment Date Thrive assessed 12/23/23 08/08/24 09:16 Telehealth Telehealth Telehealth Platform: Telephone Location of provider rendering services: practice address Location of patient: address on file Patient Identification confirmed using: Name, : Yes Telehealth method: voice only Patient verbally consented to treatment: Yes Patient verbally consented to billing insurance company: Yes Patient informed of any privacy concerns related to visit: Yes Minutes spent on Phone/Video with Pt.: 11 Coding Level of Care Code Tele Est Pt Level 3 (80625) Diagnoses Below-knee amputation of right lower extremity, subsequent encounter S88.111D Encounter type: subsequent encounter Assessment & Plan Assessment & Plan (1) Below-knee amputation of right lower extremity: Code(s): S88.111A - Complete traumatic amputation at level between knee and ankle, right lower leg, initial encounter Category: Medical Qualifiers: Encounter type: subsequent encounter Qualified Code(s): S88.111D - Complete traumatic amputation at level between knee and ankle, right lower leg, subsequent encounter Plan: WE DID DISCUSS PATIENT'S PAIN MANAGEMENT I AM REPORTS HE IS STILL IN SOME SIGNIFICANT PAIN HE HAS BEEN TRYING TO BE MORE MOBILE. HE IS DUE TO GET A PROSTHETIC AND REPORTS HE WAS TOLD HE WILL BE IN SOME MORE PAIN WHEN TRYING TO GET USED TO HIS PROSTHETIC. WE DID DISCONTINUE HIS 20 MG OXYCONTIN AND NOW ON OXYCODONE 5-15 MG P.R.N. FOR HIS PAIN. PATIENT DOES UNDERSTAND HE IS NEARLY 5 MONTHS OUT AMPUTATION SURGERY AT THIS POINT. He now has a prosthesis and he is walking around with a walker using his prosthesis. He is still does report some significant pain in his amputation site when trying to ambulate with a prosthesis though has been getting better. He is willing to start weaning down on narcotic pain medication over the next month. Nonetheless Will continue him on his current dose of oxycodone for now until he is able to get use to his prosthesis. He remains positive about being able to walk and live a more healthy life. --Home visit Nurse - (Braden) [facility] -[phone] Medications: Refilled oxycodone Partial Fill upon patient request. 15 mg (3 x 5 mg) PO Q6H 84 tabs 0RF pain 7 days S88.111D - Complete traumatic amputation at level between knee and ankle, right lower leg, subsequent encounter
== END 2024-08-08 11:15 ==
LOC: HO.HMCH 09:17
PROVIDERS: PCP Physician Assistant; Visit Provider Physician Assistant
DX: S88.111D Complete traumatic amputation at level between knee and ankle, right lower leg, subsequent encounter (principal)

== ENCOUNTER 2024-08-31 10:48 | Outpatient (RCR) | payer MEDICARE, OTHER, MEDICAID, SELFPAY ==
--- NOTE | ~2024-08-31 | XR_ITS ---
EXAMINATION: XR FOOT, LEFT CLINICAL INFORMATION: Nonhealing foot wound. COMPARISON: 11/28/2022. TECHNIQUE: AP, lateral, and oblique views of the left foot. FINDINGS: Again seen are changes of transmetatarsal amputation. Soft tissue swelling. Gas is seen within the distal stump probably secondary to ulceration. Some cystic changes are seen in the remaining tarsal bones with sclerotic changes. When comparison is made to the prior study, there has been no real significant interval change. Vascular calcifications in the anterior tibial artery are noted. Degenerative changes are seen at the ankle. No new bony destructive changes to suggest osteomyelitis. XR/XR foot LT min 3V IMPRESSION: Status post transmetatarsal amputation with soft tissue swelling and ulceration. No convincing evidence of osteomyelitis. MRI of the foot, precontrast and postcontrast would be more sensitive for detection. Degenerative changes in the foot and ankle.
--- NOTE | ~2024-08-31 | XR_ITS ---
EXAMINATION: XR FOOT, LEFT CLINICAL INFORMATION: Nonhealing wound COMPARISON: 03/06/2023 TECHNIQUE: AP, lateral, and oblique views of the left foot. FINDINGS: Transmetatarsal amputation changes stable. Irregularity of the overlying Soft tissues but no soft tissue air is noted. Overall progressive atrophy of the overlying soft tissues is noted posterolaterally to debridement or tissue loss. Correlate clinically. Defect within the plantar aspect suggests probable ulceration. Calcaneal plantar spurring. XR/XR foot LT min 3V IMPRESSION: Soft tissue changes as above. No soft tissue air. No definite plain film evidence for osteomyelitis. If further evaluation is warranted consider MRI.
== END 2024-10-20 15:29 | disposition home or self-care (01) ==
LOC: HO.WCC 10:48
PROVIDERS: PCP Physician Assistant; Visit Provider Surgery
DX: E11.621 Type 2 diabetes mellitus with foot ulcer (principal); L97.522 Non-pressure chronic ulcer of other part of left foot with fat layer exposed; T87.81 Dehiscence of amputation stump; Z79.85 Long-term (current) use of injectable non-insulin antidiabetic drugs; Z79.84 Long term (current) use of oral hypoglycemic drugs; Z79.01 Long term (current) use of anticoagulants; Z79.4 Long term (current) use of insulin; Z79.891 Long term (current) use of opiate analgesic; Z79.2 Long term (current) use of antibiotics; Z79.899 Other long term (current) drug therapy; Z89.511 Acquired absence of right leg below knee; Z89.422 Acquired absence of other left toe(s)
CPT/HCPCS: 11042; 11043; 11045; 15275; 73630; 87070; 87077; 87186; 87205; 97597; 97605; 99212; 99213; Q4186; Q4187

== ENCOUNTER 2024-09-23 08:32 | Outpatient (AMB) | payer OTHER, SELFPAY ==
--- NOTE | 2024-09-23 08:39 | MHC.OFFVIS ---
Vital Signs 09/23/24 08:44 Height 5 ft 8 in Weight 202 lb 9.677 oz BMI 30.8 BP 128/72 Blood Pressure Location Rt brachial Position Sitting Pulse 73 Pulse Source Pulse Oximeter Intake Visit Reasons: T2DM with foot ulcer Intake Note: Patient internally referred for T2DM. Last Diabetic Eye exam: Due Last Podiatry Visit: Does not see a Business Information Analyst, Patient reports foot ulcer is healed and was seen by Wound Care. Random Glucose: 175 mg/dl HgA1C: 7.1% 09/23/24 Hvac Commercial Salesperson Required: No Accompanied by: Self / Same As Patient Allergies No Known Allergies Allergy (Verified 09/23/24 08:45) HPI Comments Details: This is a 53-year-old male with a past medical history of type 2 diabetes, peripheral vascular disease and coronary artery disease presenting for diabetic management. He was last seen in the endocrinology department in [address] Leach. He was diagnosed with diabetes about 13 years ago. He forgot his CGM today. Hemoglobin a1c 7.1% Current medication regimen: Mounjaro 5 mg weekly, Lantus 30 units daily, metformin 1000 mg once daily (does not take it twice daily) Diet: Breakfast- toast with peanut butter and coffee and fat free milk Lunch- sandwich, hot dog Dinner- rice, protein, vegetables Snacks/desserts: apple, pretzel Denies alcohol use. Soda or juice once per day. He is trying to switch due zero sugar. Hypoglycemia symptoms: none Hyperglycemia symptoms: polyuria if high, highest 280 within the past month Eye exam: due for eye exam at [facility] - he is going to call and schedule Microvascular complications: retinopathy, nephropathy, neuropathy Macrovascular complications: Diabetic ulcers - resolved, PVD, CAD, below knee amputation of right leg March 2024, five toes amputated from the left foot Hypertension: treated with losartan 100 mg, metoprolol succinate 25 mg, amlodipine 10 mg, isosorbide mononitrate ER 30 mg Hyperlipidemia: treated with atorvastatin 40 mg LDL at goal <100. ROS: Constitutional: No unexplained weight loss, fever, chills or night sweats. Eyes: No vision changes Respiratory: No shortness of breath Cardiovascular: No chest pain Skin: No open wounds Physical exam: Constitutional: Alert, in no distress. Neck: Supple, Full range of motion. No lymphadenopathy. Respiratory: Clear to auscultation. Cardiovascular: S1 S2 regular. No murmurs. Extremities: s/p amputation of the toes of the left foot and below knee amputation of right lower extremity, there is some dry skin on the left foot, there is no open wound or erythema at the amputation site [facility], [facility] Medical History (Updated 09/23/24 @ 09:39 by OLGA LIDIA Simmons) Type 2 diabetes mellitus with vascular disease Microalbuminuria Decreased renal function Nausea and vomiting Left ventricular ejection fraction of 40-49% SOB (shortness of breath) on exertion Anemia DMII (diabetes mellitus, type 2) Open wound Anemia of chronic disease Peripheral vascular disease Diabetic foot ulcer Anemia Orthostatic hypotension Gangrene of toe of left foot GERD (gastroesophageal reflux disease) History of angiography PICC (peripherally inserted central catheter) in place Bacteremia Diabetic foot ulcer PAD (peripheral artery disease) Diabetes Surgical History History of esophagogastroduodenoscopy (EGD) H/O colonoscopy History of transmetatarsal amputation of left foot Amputated toe of right foot (11/05/20) Family History Other Diabetes No family history of cancer Social History Household Members: None Housing: Apartment Are you a primary home health aide caregiver to a significant other at home: No Do you presently have visiting nurse or other home services: No Alcohol intake: current Alcohol intake frequency: holidays/special occasions only Alcohol type: hard liquor Comment: pt still feeling the same Patient Tobacco Use Status: Former Tobacco user Tobacco use type: Cigarette Cigarette Packs Per Day: 0.5 Cigarettes Per Day: 1 Years Smoked: 15 e-Cigarette/Vaping Use: Never Used Second Hand Smoke Exposure: No service: No Current occupational status: unemployed Cognitive needs: No Hearing needs: No Vision needs: No Physical Exam Vital Signs: Last Vital Signs Pulse 73 09/23/24 08:44 BP 128/72 09/23/24 08:44 BMI result Body Mass Index 30.8 Results AMB Hemoglobin A1c AMB Hemoglobin A1c 7.1 % Last Edit by JEWEL Hannah on 09/23/24 09:07 Results Reviewed Results Reviewed: Laboratory Last Values Glucose (Clinic) 175 mg/dL (60-115) H 09/23/24 08:49 Laboratory Tests 03/08/24 03/14/24 03/14/24 15:13 08:14 08:15 Creatinine Estimated GFR Hgb A1c (Clinic) 8.2 H Triglycerides 120 Cholesterol 104 LDL Cholesterol, Calc 40 HDL Cholesterol 40 L Urine Creatinine 103.24 Urine Microalbumin 1556.0 Microalb/Creat Ratio 1507.1 H 04/04/24 08:24 Creatinine 1.73 H Estimated GFR 42 Hgb A1c (Clinic) Triglycerides Cholesterol LDL Cholesterol, Calc HDL Cholesterol Urine Creatinine Urine Microalbumin Microalb/Creat Ratio Assessment & Plan Assessment & Plan (1) Type 2 diabetes mellitus with vascular disease: Code(s): E11.59 - Type 2 diabetes mellitus with other circulatory complications Category: Medical (2) Decreased renal function: Code(s): N28.9 - Disorder of kidney and ureter, unspecified Category: Medical (3) Microalbuminuria: Code(s): R80.9 - Proteinuria, unspecified Category: Medical Plan In summary this is a 53-year-old male with suboptimally controlled type 2 diabetes with micro and macrovascular complications. He will call to schedule a diabetic eye exam. Patient is referred to Podiatry, Nephrology in the nurse informatics educator. Prescribed Libre3 CGM. Patient advised to bring CGM to all diabetic appointments. Diabetic diet and lifestyle modifications reviewed with the patient. Patient would like to switch back to Trulicity. He felt better on the medication and found it more effective. Start Trulicity 0.75 mg once weekly one week after your last dose of Mounjaro. Continue Lantus 30 units daily for now. Given decreased GFR, replace Metforin 1000 mg once daily with Metformin 500 mg twice daily taken with food. He will return in 8 weeks with CGM to assess diabetic control. We can increase Trulicity if GMI is still not at goal. If you experience low blood sugar, treat this by eating a chewable fruit candy like skittles or jelly beans (about 8 pieces), 4 ounces (1/2 cup) of fruit juice (not diet), 1 tablespoon of honey or 4 glucose tablets. If your blood sugar is under 50, take double the amount of one of the above. Recheck your blood sugar in 15 minutes. Prescribed glucose tablets. Follow up in 8 weeks for type 2 diabetes. Orders: Orders AMB Hemoglobin A1c Today E11.628 - Type 2 diabetes mellitus with other skin complications, L08.9 - Local infection of the skin and subcutaneous tissue, unspecified Referrals Nephrology Referral N28.9 - Disorder of kidney and ureter, unspecified, R80.9 - Proteinuria, unspecified Diabetes Education Referral E11.65 - Type 2 diabetes mellitus with hyperglycemia Podiatry Referral Z91.89 - Other specified personal risk factors, not elsewhere classified Medications: New metformin 500 mg PO BIDWMEAL 90 days 180 tabs 3RF glucose (Dex4 Glucose Quick Dissolve) until symptoms of low blood sugar are controlled 16 grams (4 x 4 gram) PO Q15M PRN 10 tabs 3RF hypoglycemia dulaglutide (Trulicity) Replaces Mounjaro 0.75 mg (0.5 mL) subcut QWEEK 2 mL 0RF blood-glucose meter,continuous (RedRoverStyle Jayla 3 [place]) Use daily to monitor blood glucose levels continuously. 1 ea 0RF blood-glucose sensor (FreeStyle Jayla 3 Sensor device) apply new sensor every 14 days 2 ea 11RF Discontinued metformin Discontinued Reason: Doctor's Order 1,000 mg PO BID 180 tabs 1RF E11.52 - Type 2 diabetes mellitus with diabetic peripheral angiopathy with gangrene, Z79.4 - hedis review nurse (current) use of insulin tirzepatide (Mounjaro) Discontinued Reason: Doctor's Order 5 mg (0.5 mL) subcut QWEEK 4 weeks 2 mL 3RF E11.52 - Type 2 diabetes mellitus with diabetic peripheral angiopathy with gangrene, Z79.4 - hedis review nurse (current) use of insulin Patient Instructions: Start Trulicity 0.75 mg once weekly one week after your last dose of Mounjaro. Continue Lantus 30 units daily for now. Replace Metforin 1000 mg once daily with Metformin 500 mg twice daily taken with food. I am going to put in a referral to a kidney specialist. They will call you to schedule the appointment. I have also referred you to podiatry at [place]. They will call you to schedule the appointment. I have sent the libre3 sensors to the pharmacy with the reader. We will set up an appointment with the nurse informatics educator for you. Bring sensors, phone and reader to that appointment. Coding Level of Care Code Est Pt Level 5 (21360) Complex EM visit Add On G2211 Diagnoses Type 2 diabetes mellitus with vascular disease E11.59 Decreased renal function N28.9 Microalbuminuria R80.9 Time Spent (min) 68 Comment Chart review, direct patient care, completing documentation
[2024-09-23 08:44] VITALS: BP 128/72; PULSE 73; BMI 30.8
[2024-09-23 08:54] LABS: Glucose, Whole Blood 175 mg/dL (60-115)
== END 2024-09-23 09:36 | disposition home or self-care (01) ==
PROVIDERS: PCP Physician Assistant; Visit Provider Physician Assistant Medical
DX: E11.59 Type 2 diabetes mellitus with other circulatory complications (principal); N28.9 Disorder of kidney and ureter, unspecified; R80.9 Proteinuria, unspecified; E11.628 Type 2 diabetes mellitus with other skin complications; L08.9 Local infection of the skin and subcutaneous tissue, unspecified

== ENCOUNTER → 2024-09-23 08:32 | Outpatient (BNVA) | payer OTHER, SELFPAY | PROVIDERS: PCP Physician Assistant; Visit Provider Physician Assistant Medical | DX: E11.52 Type 2 diabetes mellitus with diabetic peripheral angiopathy with gangrene (principal); E11.628 Type 2 diabetes mellitus with other skin complications; E11.65 Type 2 diabetes mellitus with hyperglycemia; E11.59 Type 2 diabetes mellitus with other circulatory complications; I25.10 Atherosclerotic heart disease of native coronary artery without angina pectoris; N28.9 Disorder of kidney and ureter, unspecified; R80.9 Proteinuria, unspecified; L08.9 Local infection of the skin and subcutaneous tissue, unspecified; Z79.84 Long term (current) use of oral hypoglycemic drugs; Z79.4 Long term (current) use of insulin; Z86.31 Personal history of diabetic foot ulcer; Z79.899 Other long term (current) drug therapy | CPT/HCPCS: 82947; 83036; 99212 ==

== ENCOUNTER 2024-10-13 09:45 | Outpatient (AMB) | payer OTHER, SELFPAY ==
--- NOTE | 2024-10-13 09:59 | A.OFFVIS_ITS ---
Intake Intake Visit Reasons: Type 2 diabetes mellitus with hyperglycemia Senior Care Manager Required: No Accompanied by: Self / Same As Patient Allergies No Known Allergies Allergy (Verified 09/23/24 08:45) HPI Comprehensive Diabetes Asmnt Most Recent Diabetes Results: No Data to Display [facility] Medical History (Updated 09/23/24 @ 09:39 by OLGA LIDIA Simmons) Type 2 diabetes mellitus with vascular disease Microalbuminuria Decreased renal function Nausea and vomiting Left ventricular ejection fraction of 40-49% SOB (shortness of breath) on exertion Anemia DMII (diabetes mellitus, type 2) Open wound Anemia of chronic disease Peripheral vascular disease Diabetic foot ulcer Anemia Orthostatic hypotension Gangrene of toe of left foot GERD (gastroesophageal reflux disease) History of angiography PICC (peripherally inserted central catheter) in place Bacteremia Diabetic foot ulcer PAD (peripheral artery disease) Diabetes Surgical History History of esophagogastroduodenoscopy (EGD) H/O colonoscopy History of transmetatarsal amputation of left foot Amputated toe of right foot (11/05/20) Family History Other Diabetes No family history of cancer Social History Household Members: None Housing: Apartment Are you a primary care companion to a significant other at home: No Do you presently have visiting nurse or other home services: No Alcohol intake: current Alcohol intake frequency: holidays/special occasions only Alcohol type: hard liquor Comment: pt still feeling the same Patient Tobacco Use Status: Former Tobacco user Tobacco use type: Cigarette Cigarette Packs Per Day: 0.5 Cigarettes Per Day: 1 Years Smoked: 15 e-Cigarette/Vaping Use: Never Used Second Hand Smoke Exposure: No service: No Current occupational status: unemployed Cognitive needs: No Hearing needs: No Vision needs: No Assessment & Plan Assessment & Plan (1) DMII (diabetes mellitus, type 2): Code(s): E11.9 - Type 2 diabetes mellitus without complications Qualifiers: Diabetes mellitus terminal manager insulin use: with terminal manager use Diabetes mellitus complication status: with circulatory complication Diabetes mellitus complication detail: with peripheral angiopathy with gangrene Qualified Code(s): E11.52 - Type 2 diabetes mellitus with diabetic peripheral angiopathy with gangrene; Z79.4 - ocean transportation intermediary (current) use of insulin Plan: Patient at visit to set up an insert Jayla 3 sensor Patient did not bring Jayla 3 sensor to today's CGM start visit We tried to download Jayla 3 rossy on patient's smart phone, smart phone is not compatible with rossy Tried to download Jayla 2 rossy on patient's smart phone, not compatible with this rossy either Message sent to provider to send prescription for Jayla 3 reader to patient's pharmacy Patient stated he can not stay for further Diabetes Education has he has another appointment Instructed patient sensors water proof you can shower, or swim do not submerge sensor in water for over 30 minutes Is sensor falls off cannot put back in you need to replace sensor, customer service number given to patient for sensor replacement Portions of this note were created using voice recognition software, please excuse any words or phrases that may have been misinterpreted. Patient Instructions: Patient will contact endocrine clinic to set up Jayla 3 teaching when he receives Jayla 3 reader Coding Level of Care Code Est Pt Level 1 (27634) Diagnoses Type 2 diabetes mellitus with diabetic peripheral angiopathy and gangrene, with long-term current use of insulin E11.52; Z79.4 Diabetes mellitus terminal manager insulin use: with alf use Diabetes mellitus complication status: with circulatory complication Diabetes mellitus complication detail: with peripheral angiopathy with gangrene
== END 2024-10-13 10:55 | disposition home or self-care (01) ==
PROVIDERS: PCP Physician Assistant; Visit Provider Registered Nurse Diabetes Educator
DX: E11.52 Type 2 diabetes mellitus with diabetic peripheral angiopathy with gangrene (principal); Z79.4 Long term (current) use of insulin

== ENCOUNTER 2024-10-13 10:12 | Outpatient (AMB) | payer OTHER, SELFPAY ==
[2024-10-13 10:34] VITALS: BP 134/84; PULSE 96; O2SAT 96; BMI 30.9
--- NOTE | 2024-10-13 10:34 | HO.NEPHOV_ITS ---
Vital Signs 10/13/24 10:34 Height 5 ft 8 in Weight 203 lb BMI 30.9 BP 134/84 Blood Pressure Location Lt brachial Position Sitting Pulse 96 Pulse Source Pulse Oximeter Pulse Oximetry (%) 96 Oxygen Delivery Method Room Air Intake Visit Reasons: INP: Disorder of kidney and ureter/ Proteinuria Fusing Machine Operator Required: No Accompanied by: Self / Same As Patient Allergies No Known Allergies Allergy (Verified 10/13/24 10:35) Medication List - Last Reconciled 10/13/24 by Sadiq Ferris MD acetaminophen 650 mg PO Q6H PRN adhesive tape As directed amlodipine 10 mg PO DAILY apixaban (Eliquis) 5 mg PO DAILY atorvastatin 40 mg PO DAILY back brace As directed bisacodyl (Dulcolax (bisacodyl)) 10 mg (2 x 5 mg) PO BEDTIME 2 days blood pressure monitor (Blood Pressure Kit) As directed blood-glucose meter,continuous (FreeStyle Jayla 3 [place]) Use daily to monitor blood glucose levels continuously. blood-glucose sensor (FreeStyle Jayla 3 Sensor device) apply new sensor every 14 days dulaglutide (Trulicity) 0.75 mg (0.5 mL) subcut QWEEK ferrous sulfate 325 mg PO DAILY flash glucose scanning reader (FreeStyle Jayla 2 [place]) for continuous use flash glucose sensor (FreeStyle Jayla 2 Sensor kit) for continuous use gabapentin 300 mg PO BEDTIME 30 days glucose (Dex4 Glucose Quick Dissolve) 16 grams (4 x 4 gram) PO Q15M PRN losartan 100 mg PO DAILY 90 days metformin 500 mg PO BIDWMEAL 90 days metoprolol succinate ER 50 mg PO DAILY miscellaneous medical supply 2 ea miscellaneous DAILY 99 days omeprazole 40 mg PO DAILY@0630 ondansetron 8 mg PO Q12H 15 days oxycodone 5 mg PO Q8H PRN 7 days pen needle, diabetic test 4 times daily pen needle, diabetic (BD Ultra-Fine Karen Pen Needle) As directed 4 times a day zolpidem (Ambien) 5 mg PO BEDTIME PRN 7 days HPI Comments Details: 53-year-old male with a past medical history of type 2 diabetes, peripheral vascular disease and coronary artery disease presenting for diabetic management. He was last seen in the endocrinology department in [address] Leach. He was diagnosed with diabetes about 20 years ago. In March of 2024 serum creatinine was 1 point 7 mg/dL he had significant proteinuria of more than 1000 mg. He has been referred for further evaluation. History of peripheral artery disease status post amputation of toe. History of coronary artery disease status post stent placement. History of Bactrim in the past. History of significant anemia as well. All lab results are from 04/16/2024 [facility] Medical History (Updated 10/13/24 @ 10:47 by Sadiq Ferris MD) Type 2 diabetes mellitus with vascular disease Microalbuminuria Decreased renal function Nausea and vomiting Left ventricular ejection fraction of 40-49% SOB (shortness of breath) on exertion Anemia DMII (diabetes mellitus, type 2) Open wound Anemia of chronic disease Peripheral vascular disease Diabetic foot ulcer Anemia Orthostatic hypotension Gangrene of toe of left foot GERD (gastroesophageal reflux disease) History of angiography PICC (peripherally inserted central catheter) in place Bacteremia Diabetic foot ulcer PAD (peripheral artery disease) Diabetes Surgical History History of esophagogastroduodenoscopy (EGD) H/O colonoscopy History of transmetatarsal amputation of left foot Amputated toe of right foot (11/05/20) Family History Other Diabetes No family history of cancer Social History Household Members: None Housing: Apartment Are you a primary home care aide to a significant other at home: No Do you presently have visiting nurse or other home services: No Alcohol intake: current Alcohol intake frequency: holidays/special occasions only Alcohol type: hard liquor Comment: pt still feeling the same Patient Tobacco Use Status: Former Tobacco user Tobacco use type: Cigarette Cigarette Packs Per Day: 0.5 Cigarettes Per Day: 1 Years Smoked: 15 e-Cigarette/Vaping Use: Never Used Second Hand Smoke Exposure: No service: No Current occupational status: unemployed Cognitive needs: No Hearing needs: No Vision needs: No Physical Exam Vital Signs: Last Vital Signs Pulse 96 10/13/24 10:34 BP 134/84 10/13/24 10:34 Pulse Ox 96 10/13/24 10:34 Oxygen Delivery Method Room Air 10/13/24 10:34 BMI result Body Mass Index 30.9 Results Reviewed Nephrology Results: Hgb 10.5 g/dl (14.0-18.0) L 10/13/24 WBC 9.7 X10*3/uL (4.8-10.8) 10/13/24 Plt Count 366 X10*3/uL (160-400) 10/13/24 Sodium 138 mmol/L (135-145) 10/13/24 Potassium 5.0 mmol/L (3.3-5.1) 10/13/24 Chloride 109 mmol/L (96-108) H 10/13/24 Carbon Dioxide 23 mmol/L (22-29) 10/13/24 BUN 23 mg/dL (9-16) H 10/13/24 Creatinine 1.27 mg/dL (0.5-1.4) 10/13/24 Calcium 8.9 mg/dL (8.4-10.2) 10/13/24 PTH Intact Pending 10/13/24 Assessment & Plan Assessment & Plan (1) CKD (chronic kidney disease): Code(s): N18.9 - Chronic kidney disease, unspecified Category: Medical (2) Type 2 diabetes mellitus with vascular disease: Code(s): E11.59 - Type 2 diabetes mellitus with other circulatory complications Category: Medical (3) Anemia: Code(s): D64.9 - Anemia, unspecified Category: Medical Qualifiers: Anemia type: unspecified type Qualified Code(s): D64.9 - Anemia, unspecified Plan 61-year-old man with a history of longstanding diabetes mellitus and proteinuria with chronic kidney disease. Cielo has got stage III CKD. CKD is most likely due to underlying diabetic kidney disease. Nondiabetic causes should be considered. Workup initiated for CKD. Anemia which is multifactorial iron deficiency has been ruled out. Initiated workup as well. At present blood pressure well controlled. Recommendations Check urine for protein creatinine ratio and electrophoresis. Renal ultrasonogram Optimize blood pressure and maintain blood pressure less than 130/80. Discussed importance of tight control of blood sugar to maintain A1c less than 7%. He will benefit from SGLT2 inhibitors. Continue with the angiotensin receptor louis for cardiorenal protection. Encouraged him to stay on low-sodium diet. Returned to the office once the baseline workup is completed Orders: Orders Complete Blood Count no Diff Today Sadiq Ferris MD N18.9 - Chronic kidney disease, unspecified Parathyroid Hormone Intact Today Sadiq Ferris MD N18.9 - Chronic kidney disease, unspecified Creatinine Urine Today Sadiq Ferris MD N18.9 - Chronic kidney disease, unspecified IRON PROFILE Today Sadiq Ferris MD N18.9 - Chronic kidney disease, unspecified Ferritin Today Sadiq Ferris MD N18.9 - Chronic kidney disease, unspecified US renal BI Today Sadiq Ferris MD I10 - Essential (primary) hypertension Comprehensive Met. Panel Today Sadiq Ferris MD N18.9 - Chronic kidney disease, unspecified Uric Acid Today Sadiq Ferris MD N18.9 - Chronic kidney disease, unspecified Total Protein Urine Random Today Sadiq Ferris MD N18.9 - Chronic kidney disease, unspecified UA and rflx microscopic Today Sadiq Ferris MD N18.9 - Chronic kidney disease, unspecified Vitamin D 25-OH Total Today Sadiq Ferris MD N18.9 - Chronic kidney disease, unspecified Medications: Changed From apixaban (Eliquis) supposed to be taking BID but patient takes one daily 5 mg PO BID 180 tabs 5RF To apixaban (Eliquis) supposed to be taking BID but patient takes one daily 5 mg PO DAILY Fredy Adair PA-C Coding Level of Care Code New Pt Level 4 (09023) Diagnoses CKD (chronic kidney disease) N18.9 Type 2 diabetes mellitus with vascular disease E11.59 Anemia D64.9 Anemia type: unspecified type
== END 2024-10-13 11:49 | disposition home or self-care (01) ==
PROVIDERS: PCP Physician Assistant; Referring Provider Physician Assistant Medical; Visit Provider Internal Medicine Hypertension Specialist
DX: N18.9 Chronic kidney disease, unspecified (principal); E11.59 Type 2 diabetes mellitus with other circulatory complications; D64.9 Anemia, unspecified
CPT/HCPCS: 99204

== ENCOUNTER 2024-10-13 10:52 | Outpatient (REF) | payer OTHER, SELFPAY ==
[2024-10-13 12:07] LABS: Hematocrit 31.7 % (42.0-52.0); Hemoglobin 10.5 g/dl (14.0-18.0); Mean Corpuscular HGB Conc 33.1 g/dl (31.0-36.0); Mean Corpuscular Hemoglobin 29.2 pg (27.0-33.0); Mean Corpuscular Volume 88.1 fL (80.0-98.0); Platelet Count 366 X10*3/uL (160-400); White Blood Count 9.7 X10*3/uL (4.8-10.8)
[2024-10-13 12:17] LABS: Alanine Aminotransferase 17 U/L (0-40); Albumin Level 3.3 g/dL (3.5-5.0); Anion Gap 11 (12-20); Aspartate Amino Transferase 22 U/L (5-37); Bilirubin Total 0.5 mg/dL (0.0-1.0); Blood Urea Nitrogen 23 mg/dL (9-16); Calcium 8.9 mg/dL (8.4-10.2); Carbon Dioxide 23 mmol/L (22-29); Chloride 109 mmol/L (96-108); Estimated Glomerular Filt Rate 60; Glucose Random 139 mg/dL (60-115); Iron 133 mcg/dL (45-160); Percent Iron Saturation 46 % (15-50); Sodium 138 mmol/L (135-145); Total Iron Binding Capacity 287 mcg/dL (228-428); Total Protein 7.2 g/dL (6.5-8.0); Unsaturated Iron Binding 154 ug/dL; Uric Acid 6.6 mg/dL (3.4-7.0)
[2024-10-13 12:36] LABS: Ferritin 50 ng/mL (20-250); Vitamin D 25-OH Total 11.9 ng/mL (>30)
[2024-10-13 12:40] LABS: Parathyroid Hormone Intact 81.1 pg/mL (8.7-77.1)
[2024-10-13 12:53] LABS: Alkaline Phosphatase 118 U/L (39-117)
== END 2024-10-13 10:53 | disposition home or self-care (01) ==
LOC: HO.10HDL 10:52
PROVIDERS: Visit Provider Internal Medicine Hypertension Specialist
DX: N18.9 Chronic kidney disease, unspecified (principal); I10 Essential (primary) hypertension; D64.9 Anemia, unspecified; E11.52 Type 2 diabetes mellitus with diabetic peripheral angiopathy with gangrene; Z79.4 Long term (current) use of insulin; Z79.899 Other long term (current) drug therapy
CPT/HCPCS: 36415; 80053; 82306; 82728; 83540; 83970; 84550; 85027; 99202; 99211

== ENCOUNTER 2024-10-27 13:59 | Outpatient (AMB) | payer OTHER, SELFPAY ==
--- NOTE | 2024-10-27 14:00 | A.OFFPC_ITS ---
Intake Visit Reasons: RONALD from [employer] android phone/phone visit Massotherapist Required: No Relationship Management Lead: Not Required per policy Accompanied by: Self / Same As Patient Allergies No Known Allergies Allergy (Verified 10/27/24 14:01) Tobacco use date assessed: 10/27/24 Dental Screening Dental Screen Date: 10/27/24 Did you have a dental visit in the last 12 months?: No Did you have a dental problem in the last 6 months where you did not have access to dental care?: No Was dental information given to patient?: Patient has dentist HPI RONALD from [employer] [employer] phone/phone visit HPI Details 53 yr old male requests to discuss his h ealth conditions via [employer]. He has a suspended drivers lic. He cannot recall the reason for it. I suggested he bring the form for me to review. Patient feels pain at the stump. He has difficulty due to pain. Requesting oxycodone. Compliant with his insulin medications. COUNT INCLUDES THE [facility] Medical History (Updated 10/13/24 @ 10:47 by Sadiq Ferris MD) Type 2 diabetes mellitus with vascular disease Microalbuminuria Decreased renal function Nausea and vomiting Left ventricular ejection fraction of 40-49% SOB (shortness of breath) on exertion Anemia DMII (diabetes mellitus, type 2) Open wound Anemia of chronic disease Peripheral vascular disease Diabetic foot ulcer Anemia Orthostatic hypotension Gangrene of toe of left foot GERD (gastroesophageal reflux disease) History of angiography PICC (peripherally inserted central catheter) in place Bacteremia Diabetic foot ulcer PAD (peripheral artery disease) Diabetes Surgical History (Updated 10/27/24 @ 14:04 by JEWEL Bailey) History of amputation below knee History of esophagogastroduodenoscopy (EGD) H/O colonoscopy History of transmetatarsal amputation of left foot Amputated toe of right foot (11/05/20) Family History Other Diabetes No family history of cancer Social History Household Members: None Housing: Apartment Are you a primary long term care pharmacist to a significant other at home: No Do you presently have visiting nurse or other home services: No Alcohol intake: current Alcohol intake frequency: holidays/special occasions only Alcohol type: hard liquor Comment: pt still feeling the same Patient Tobacco Use Status: Former Tobacco user Tobacco use type: Cigarette Cigarette Packs Per Day: 0.5 Cigarettes Per Day: 1 Years Smoked: 15 e-Cigarette/Vaping Use: Never Used Second Hand Smoke Exposure: Yes service: No Current occupational status: unemployed Cognitive needs: No Hearing needs: No Vision needs: No Questionnaire PHQ-9 Over the last 2 weeks, how often have you been bothered by any of the following problems? 1. Little interest or pleasure in doing things: not at all 2. Feeling down, depressed, or hopeless: not at all 3. Trouble falling or staying asleep, or sleeping too much: not at all 4. Feeling tired or having little energy: not at all 5. Poor appetite or overeating: not at all 6. Feeling bad about yourself - or that you are a failure or have let yourself or your family down: not at all 7. Trouble concentrating on things, such as reading the newspaper or watching television: not at all 8. Moving or speaking so slowly that other people could have noticed. Or the opposite - being so fidgety or restless that you have been moving around a lot more than usual: not at all 9. Thoughts that you would be better off or of hurting yourself in some way: not at all Total score: 0 Depression Screening Interpretation: Negative Depression Screening Done: Yes Source: Developed by Drs. Dru Gallagher, Aliyah Fitzpatrick, Obdulio Wei and colleagues, with an educational thomas from [employer]. Thrive Questionnaire Date Thrive assessed: 10/27/24 I am a: Patient What is your living situation today?: I have a steady place to live Within the past 12 months, did the food you bought not last and you didn't have the money to get more?: Never true Within the past 12 months, did you worry whether your food would run out before you got money to buy more?: Never true Do you have trouble paying for medicines?: No Do you have trouble getting transportation to medical appointments?: No Do you have trouble paying your heating and electricity bill?: No Do you have trouble taking care of your child, family member or friend?: No Do you have trouble with day-to-day activities such as bathing, preparing meals, shopping, managing finances, etc.?: No Are you currently unemployed and looking for a job?: No Are you interested in more education?: No Please select the resources that you would like help with: None Currently or been in a relationship where the following occur: No concerns reported THRIVE Score: 0 AUDIT C Alcohol Use Questionnaire (AUDIT-C) 1. How often do you have a drink containing alcohol?: Never Total Score: 0 TAQUERIA-7 AMB Questionnaire TAQUERIA-7 Date TAQUERIA - 7 assessed: 10/27/24 Feeling nervous, anxious, or on edge: 0 = Not at all Not being able to stop or control worryin = Not at all Worrying too much about different things: 0 = Not at all Trouble relaxin = Not at all Being so restless that it is hard to sit still: 0 = Not at all Becoming easily annoyed or irritable: 0 = Not at all Feeling afraid as if something awful might happen: 0 = Not at all Total TAQUERIA-7 score (0-4 normal; 5-9 mild; 10-14 moderate; 15-21 severe): 0 Source: Developed by Drs. Dru Gallagher, Aliyah Fitzpatrick, Obdulio Wei and colleagues, with an educational thomas from [employer]. Physical exam (Primary Care) Tobacco/Smoking Status: Tobacco use Status Tobacco use date assessed 10/27/24 10/27/24 14:05 Patient Tobacco Use Status Former Tobacco user 10/27/24 14:05 Tobacco use type Cigarette 10/27/24 14:05 e-Cigarette/Vaping Use Never Used 10/27/24 14:05 PHQ-9: PHQ-9 Score PHQ-9: Total score 0 10/27/24 14:05 Depression Screening Interpretation: Negative Thrive Assessment: Date of Thrive Assessment Date Thrive assessed 10/27/24 10/27/24 14:05 Currently or been in a relationship where the following occur: No concerns reported Telehealth Telehealth Telehealth Platform: Telephone Location of provider rendering services: practice address Location of patient: address on file Patient Identification confirmed using: Name, : Yes Telehealth method: voice only Patient verbally consented to treatment: Yes Patient verbally consented to billing insurance company: Yes Patient informed of any privacy concerns related to visit: Yes Coding Level of Care Code Est Pt Level 3 (49610) Complex EM visit Add On G2211 Diagnoses Type 2 diabetes mellitus with vascular disease E11.59 Assessment & Plan Assessment & Plan (1) Type 2 diabetes mellitus with vascular disease: Code(s): E11.59 - Type 2 diabetes mellitus with other circulatory complications Category: Medical Plan: I encouraged the patient to reduce his oxycodone to once a day. Continue with same medications. Medications: Refilled zolpidem (Ambien) 5 mg PO BEDTIME PRN 7 tabs 0RF sleep 7 days F51.01 - Primary insomnia atorvastatin 40 mg PO DAILY 30 tabs 3RF
--- OUTSIDE RECORDS SUMMARY | 2024-10-27 17:53 | XMS_ITS | Clinical Summary ---
Author Organization [facility] Address [address] [place] [address] Phone Care Team Providers Care Valve Machine Operator Name Role Phone Fredy Adair Primary Care Provider [phone] Medications omeprazole (PriLOSEC) [address] capsule Take 40 mg by mouth 1 (one) time each day 06/08/20 23 Active metoprolol succinate XL (TOPROL XL) 25 MG 24 hr tablet Take 25 mg by mouth 1 (one) time each day 05/31/20 23 Active metFORMIN (GLUCOPHAGE) 1000 MG tablet Take 1,000 mg by mouth 08/16/20 21 Active losartan (COZAAR) 25 MG tablet Take 25 mg by mouth 1 (one) time each day 06/22/20 23 Active lisinopril 20 MG tablet Take 1 tablet by mouth 1 (one) time each day 08/16/20 21 Active levoFLOXacin (LEVAQUIN) 250 MG tablet TAKE 1 TABLET BY MOUTH EVERY DAY FOR 10 DAYS 06/09/20 23 Active insulin glargine (Basaglar KwikPen) 100 UNIT/ML injection Inject 15 Units under the skin 08/16/20 21 Active Basaglar KwikPen 100 UNIT/ML injection 30 UNIT (0.3 ML) SUBCUTANEOUSLY DAILY FOR 30 DAYS 06/25/20 23 Active Trulicity 1.5 MG/0.5ML solution pen-injector INJECT 0.5 ML (1.5 MG) SUBCUTANEOUSLY ONE TIME PER WEEK 06/25/20 23 Active Ferrous Sulfate ER 142 (45 Fe) MG tablet controlled-rele ase Take 1 tablet by mouth 03/27/20 21 Active doxycycline (MONODOX) 100 MG capsule TAKE 1 CAPSULE BY MOUTH TWICE A DAY FOR 10 DAYS 06/05/20 23 Active clopidogrel (PLAVIX) 75 MG tablet Take 75 mg by mouth 1 (one) time each day 05/31/20 23 Active atorvastatin (LIPITOR) 40 MG tablet Take 40 mg by mouth 1 (one) time each day 06/22/20 23 Active aspirin (ST CALIXTO) 81 MG EC tablet Take 1 tablet by mouth 1 (one) time each day 08/16/20 21 Active Eliquis 5 MG tablet Take 5 mg by mouth 06/22/20 23 Active amLODIPine (NORVASC) 10 MG tablet Take 10 mg by mouth 08/16/20 21 Active Dapagliflozin Propanediol (Farxiga) 10 MG tablet Take 10 mg by mouth 1 (one) time each day 90 tablet 2 07/01/20 23 Active Active Problems Problem Noted Date Diagnosed Date Obese class I 07/01/2023 07/01/2023 Chronic kidney disease, stage 2 (mild) 3 Type 2 diabetes mellitus wit h diabetic chronic kidney disease 07/01/2023 Proteinuria 07/01/2023 History of amputation of left foot 08/16/2021 07/01/2023 Iron deficiency anemia 02/11/2021 3 Hyperlipidemia 01/11/2021 07/01/2023 History of osteomyelitis 11/21/2020 023 History of amputation of right lesser toe 202007/01/2023 Overview (07/01/2023): Also left metatarsal amputation due to gangrene and DM foot infection Type 2 diabetes mellitus 10/31/2020 023 Hypertension 02/10/2020 07/01/2023 Tobacco use and exposure - finding 01/31/2019 07/01/2023 Social History Tobacco Use Types Packs/Day Years Used Date Smoking Tobacco: Every Day Cigarettes Tobacco Cessation:Ready to Q uit: Not Asked; Counseling Given: Not Answered Alcohol Use Standard Drinks/Week Comments Yes 0 (1 standard drink = 0.6 oz pur e alcohol) Sex and Gender Information Value Date Recorded Sex Assigned at Not on file Legal Sex Male 9:16 AM EDT Gender Identity Not on file Sexual Orientation Not on file Last Filed Vital Signs Vital Sign Reading Time Taken Comments Blood Pressure 142/81 07/01/2023 2:54 PM EDT Pulse 86 07/01/2023 2:54 PM EDT Temperature - - Respiratory Rate - - Oxygen Saturation 99% 07/01/2023 2:54 PM EDT Inhaled Oxygen Concentration - - Weight - - Height - - Body Mass Index - - Plan of Treatment Health Maintenance Due Date Last Done Comments Pneumococcal Vaccine: Pediat rics (0 to 5 Years) and At-Risk Patients (6 to 64 Years) (1 of 2 - PCV) 1978 Hepatitis B Vaccine (1 of 3 - 19+ 3-dose series) 12/12 Colorectal Cancer Screening: Annual FOBT 2021 Colorectal Cancer Screening: Colonoscopy 2021 Colorectal Cancer Screening: Sigmoidoscopy 2021 Diabetes: Hemoglobin A1C 07/01/2023 Diabetes: Ophthalmology Exam 07/01/2023 Diabetes: Pedal Pulse Checked 07/01/2023 Diabetes: Sensory Foot Exam 07/01/2023 Diabetes: Visual Foot Exam 07/01/2023 Influenza Vaccine (#1) 2024 Insurance * Guarantor: Irving Barry Account Type Relation to Patient Date of Phone Billing Address Personal/Family Self 1970 [id number] [facility] ([id number]) [place] [phone] [facility] ([id number]) [place] [address] Care Teams Valve Machine Operator Relationship Specialty Start Date End Date Fredy Adair PA [address] [place] [address], [address] [place] [address] PCP - General Physician Heavy Duty Diesel Mechanic 03/13/23
--- OUTSIDE RECORDS SUMMARY | 2024-10-27 17:53 | XMS_ITS | Clinical Summary ---
Author Organization [address] [facility] Address [address] [place] [address] Phone Care Team Providers Care Horseback Excavator Name Role Phone Fredy Adair Primary Care Provider Allergies No known active allergies Medications Medication Sig Dispensed Refills Start Date End Date Status acetaminophen (TYLENOL) 325 mg tablet TAKE 2 TABLETS BY MOUTH EVERY 6 HOURS NEEDED FOR PAIN (MILD TO MODERATE PAIN) FOR UP TO 10 DAYS. 10/15/2023 Active amLODIPine (NORVASC) 10 mg tablet Take 1 tablet by mouth daily. 08/16/2021 Active apixaban (Eliquis) 5 mg tablet Take 1 tablet by mouth 2 times daily. 08/16/2021 Active aspirin 81 mg EC tablet Take 1 tablet by mouth daily. 08/16/2021 Active flash glucose sensor (FreeStyle Jayla 2 Sensor) kit USE DIRECTED 02/28/2024 Active Trulicity 1.5 mg/0.5 mL pen injector injection Inject 1.5 mg into the skin once a week. - Subcutaneous Active ferrous sulfate 142 mg ER tablet Take 1 tablet by mouth 2 times daily (with meals). 03/27/2021 Active ferrous sulfate 325 mg (65 mg iron) EC tablet TAKE 1 TABLET BY MOUTH EVERY OTHER DAY 02/23/2024 Active insulin glargine,hum.rec.anlo g (Basaglar KwikPen U-100 Insulin) 100 unit/mL (3 mL) injection pen Inject 15 Units into the skin 2 times daily. 08/16/2021 Active pen needle, diabetic 32 gauge x 5/32 needle Use with insulin pens 4 times daily before meals. 08/16/2021 Active linezolid (ZYVOX) 600 mg tablet Take 1 Tablet by mouth 2 Times Daily. 02/23/2024 Active lisinopriL (PRINIVIL,ZESTRIL) 20 mg tablet Take 1 tablet by mouth daily. 08/16/2021 Active metFORMIN (GLUCOPHAGE) 1,000 mg tablet Take 1 tablet by mouth 2 times daily (with meals). 08/16/2021 Active metoprolol succinate (TOPROL-XL) 25 mg 24 hr tablet Take 1 Tablet by mouth daily. - Oral 11/04/2023 Active Mounjaro 5 mg/0.5 mL injection 03/08/2024 Active omeprazole (PriLOSEC) [address] capsule Take 1 capsule by mouth daily for 360 days. 08/16/2021 Active omeprazole (PriLOSEC) [address] capsule TAKE 1 CAPSULE BY MOUTH DAILY AT 630AM 03/09/2024 Active ondansetron ODT (ZOFRAN-ODT) 8 mg disintegrating tablet 03/08/2024 Act ruddy oxyCODONE (ROXICODONE) 5 mg immediate release tablet Take one tablet every 6 hours as needed for pain 10/15/2023 Active zolpidem (AMBIEN) 5 mg tablet TAKE 1 TABLET BY MOUTH EVERY DAY AT BEDTIME NEEDED FOR SLEEP FOR 7 DAYS 12/23/2023 Active Active Problems Problem Noted Date Diagnosed Date Peripheral vascular disease 07/26/2024 Iron (Fe) deficiency anemia 02/11/2021 Hyperlipidemia 01/11/2021 Diabetes mellitus type 2 with peripheral artery disease 10/31/2020 Hypertension 02/10/2020 Tobacco use disorder 01/31/2019 Encounters Date Type Department Care Team Description 10/27/2024 8:15 AM EST Office Visit Orthopedic Surgery [facility] [address] [facility] [address] [place] [id number] Miguel A Villegas DPM 08/24/2024 1:00 PM EST Office Visit Infectious Disease [facility] [address] [facility] [address] [place] [phone] Jeny Light MD Below-knee amputation of right lower extremity, sequela (CMS/HCC) (Primary Dx); Diabetic foot (CMS/HCC) 08/24/2024 Telephone Infectious Disease [address] [place] [address] Jerilyn Short RN from Last 3 Months Surgical History Surgery Date Site/Laterality Comments ANGIOPLASTY 2019 Right PROCEDURE: HISTORICAL ANGIOPLASTY W/STENT; COMMENT: leg BYPASS GRAFT 11/05/2020 Right PROCEDURE: IN AMPUTATION TOE METATARSOPHALANGEAL JOINT; COMMENT: 4 th toe OTHER SURGICAL HISTORY 04/18/2024 Right PROCEDURE: IN I&D BELOW FASCIA FOOT MULTIPLE AREAS OTHER SURGICAL HISTORY 04/18/2024 Right PROCEDURE: IN INCISION BONE CORTEX FOOT OTHER SURGICAL HISTORY 04/20/2024 Right PROCEDURE: IN AMPUTATION LEG THROUGH TIBIA&FIBULA Medical History Medical History Date Comments Uncontrolled diabetes mellitus D X:Uncontrolled diabetes mellitus Normocytic anemia DX:Normocytic anemia; COMMENT: Herbert 01/2021 Peripheral vascular disease (CMS/HCC) DX:Peripheral vascular disease (HCC) Esophageal reflux DX:Esophageal reflux Anemia DX:Anemia Hyperlipidemia DX:Hyperlipidemi a Essential hypertension DX:Essent ial hypertension History of tobacco abuse DX:Hist ory of tobacco abuse Family History Medical History Relation Name Comments Other: gestational diabetes Sister Relation Name Status Comments Brother Alive Father Alive Maternal Grandfather Alive Maternal Grandmother Alive Mother Alive Paternal Grandfather Alive Paternal Grandmother Alive Sister Alive Social History Tobacco Use Types Packs/Day Years Used Date Smoking Tobacco: Every Day Cigarettes 1 Started: 09/28/1989; Last attempted to quit: 09/28/2020 Smokeless Tobacco: Never Tobacco Cessation:Ready to Q uit: Not Asked; Counseling Given: Not Answered Alcohol Use Standard Drinks/Week Comments Not Currently 0 (1 standard drink = 0.6 oz pur e alcohol) Sex and Gender Information Value Date Recorded Sex Assigned at Not on file Gender Identity Not on file Sexual Orientation Not on file Job Start Date Occupation Industry Not on file Not on file Not on file Obstetrics History Last Filed Vital Signs Vital Sign Reading Time Taken Comments Blood Pressure 146/85 08/24/2024 1:09 PM EST Pulse 82 08/24/2024 1:09 PM EST Temperature 36.8 ??C (98.2 ??F) 08/24/2024 1:09 PM ES T Respiratory Rate 18 08/24/2024 1:09 PM EST Oxygen Saturation - - Inhaled Oxygen Concentration - - Weight 88 kg (194 lb) 10/27/2024 8:10 AM EST Height 172.7 cm (5' 7.99 ) 10/27/2024 8:10 AM ES T Body Mass Index 29.5 10/27/2024 8:10 AM EST Plan of Treatment Upcoming Encounters Date Type Department Care Team (Late st Contact Info) Description 11/22/2024 8:45 AM EST Office Visit Orthopedic Surgery - [place] [address] [facility] [address] [place] [address] Miguel A Villegas, DESHAWN 175 [facility] [address] [place] [address] Health Maintenance Due Date Last Done Comments Pneumococcal Vaccine: Pediatrics (0 to 5 Years) and At-Risk Patients (6 to 64 Years) (1 of 2 - PCV) 1978 Diabetes: Annual Foot Exam 1982 Diabetes: Annual Retina Eye Exam 1982 DTaP,Tdap,and Td Vaccines (1 - Tdap) 12/13/1991 Hepatitis B Vaccines (1 of 3 - 19+ 3-dose series) 12/13/1991 Colorectal Cancer Screening: Colonoscopy 08/31/2022 Depression Screening 08/31/2022 HIV Screening 08/31/2022 Hepatitis C Screening 08/31/2022 Lung Cancer Screening (Low Dose CT) 08/31/2022 Medicare Annual Wellness Visit 08/31/2022 Social Influencers of Health Screening 08/31/2022 Diabetes: Annual Urine Albumin-Creatinine Ratio (uACR) 09/13/2022 02/12/2021 Diabetes: Blood Sugar Contro l Test (HGBA1C) 09/13/2022 05/17/2021 Zoster Vaccines (1 of 2) 2022 COVID-19 Vaccine (1 - 2023-2 5 season) 2024 Influenza Vaccine (#1) 2024 Diabetes: Annual GFR (Glomerular Filtration Rate) 03/29/2025 03/29/2024, 03/29/2024 Hypertension/CHF/CAD Annual BMP Blood Test 03/29/2025 03/29/2024, 03/29/2024 Cholesterol Screening (Lipid Panel) 05/17/2026 05/17/2021 HIB Vaccines Aged Out No longer eligi ble based on patient's age to complete this topic HPV Vaccines Aged Out No longer eligi ble based on patient's age to complete this topic Hepatitis A Vaccines Aged Out No long er eligible based on patient's age to complete this topic IPV Vaccines Aged Out No longer eligi ble based on patient's age to complete this topic MMR Vaccines Aged Out No longer eligi ble based on patient's age to complete this topic Meningococcal ACWY Vaccine Aged Out N o longer eligible based on patient's age to complete this topic RSV Immunization Patients Under 20 months Aged Out No longer eligible b ased on patient's age to complete this topic Varicella Vaccines Aged Out No longer eligible based on patient's age to complete this topic Procedures Procedure Name Priority Date/Time Associated Diagnosis Comments ANNUAL BMP BLOOD TEST Routine 03/29/2024 HEMOGLOBIN A1C Routine 05/17/2021 LIPID PANEL Routine 05/17/2021 URINE ALBUMIN CREATININE RATIO Routine 02/12/2021 from Last 3 Months or Most Recently Relevant to Health Maintenance Results * Annual BMP Blood Test (03/29/2024) Pathologist [facility] Annual BMP Blood Test Abstracted Historical Provider MD ALEISHA TAYLORANC E * (ABNORMAL) Hemoglobin A1c (05/17/2021) Pathologist [facility] Hemoglobin A1C 8.7(A) 6.5 % Blood Venous blood specimen / Unknown Historical Provider LAB BLOOD ORDERAB LES * (ABNORMAL) Lipid panel (05/17/2021) Pathologist [facility] LDL/HDL Ratio 3 0 - 4 Triglycerides 76 0 - 150 mg/dL Cholesterol 115 0 - 200 mg/dL HDL 38(A) 40 mg/dL LDL Cholesterol 62 0 - 100 mg/dL Blood Venous blood specimen / Unknown Historical Provider LAB BLOOD ORDERAB LES * Urine Albumin Creatinine Ratio (02/12/2021) Urine Albumin Creatinine Ratio Abstracted Historical Provider MD ALEISHA Springer from Last 3 Months or Most Recently Relevant to Health Maintenance Advance Directives Documents on File Type Date Recorded Patient Field Producer Expl anation Health Care Decision (hx) 04/26/2024 HE ALTH CARE PROXY Health Care Decision (hx) 11/04/2023 AD KOENIG DIRECTIVE Health Care Decision (hx) 11/04/2023 AD KOENIG DIRECTIVE Health Care Decision (hx) 11/04/2023 AD KOENIG DIRECTIVE Health Care Decision (hx) 11/04/2023 AD KOENIG DIRECTIVE Health Care Decision (hx) 11/04/2023 AD KOENIG DIRECTIVE Health Care Decision (hx) 11/04/2023 AD KOENIG DIRECTIVE Care Teams Horseback Excavator Relationship Specialty Start Date End Date Fredy Adair PA [address] [place] [address] PCP - General Internal Medicine 10/09/21
--- OUTSIDE RECORDS SUMMARY | 2024-10-27 17:53 | XMS_ITS | Encounter Summary ---
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, with necrosis of muscle (HCC) (Primary Dx);Cellulitis of right foot;Acute hematogenous osteomyelitis of right foot (HCC);Ulcer of midfoot, right, with necrosis of muscle (HCC) Encounter Details Date Type Department Care Team (Late st Contact Info) Description 10/27/2024 8:15 AM EST Office Visit Orthopedic Surgery - [place] [address] [phone] Miguel A Villegas, DPM [address] [address] Social History Tobacco Use Types Packs/Day Years Used Date Smoking Tobacco: Every Day Cigarettes 1 31 Started: 09/28/1989; Last attempted to quit: 09/28/2020 [...] file Not on file Not on file documented as of this encounter Last Filed Vital Signs Vital Sign Reading Time Taken Comments Blood Pressure - - Pulse - - Temperature - - Respiratory Rate - - Oxygen Saturation - - Inhaled Oxygen Concentration - - Weight 88 kg (194 lb) 10/27/2024 8:10 AM EST Height 172.7 cm (5' 7.99 ) 10/27/2024 8:10 AM ES T Body Mass Index 29.5 10/27/2024 8:10 AM EST documented in this encounter Plan of Treatment Upcoming Encounters Date Type Department Care Team (Late st Contact Info) Description 11/22/2024 8:45 AM EST Office Visit Orthopedic Surgery - [place] [address] [phone] Miguel A Villegas DPM [address] [address] documented as of this encounter Visit Diagnoses Not on filedocumented in this encounter Care Teams Traveling Operator Relationship Specialty Start Date End Date Fredy Adair PA [address] [place] [address] PCP - General Internal Medicine 10/09/21 documented as of this encounter
== END 2024-10-27 16:16 | disposition home or self-care (01) ==
LOC: HO.HMCH 13:59
PROVIDERS: PCP Physician Assistant; Visit Provider Internal Medicine
DX: E11.59 Type 2 diabetes mellitus with other circulatory complications (principal)

== ENCOUNTER → 2024-10-27 13:59 | Outpatient (BNVA) | payer OTHER, SELFPAY | PROVIDERS: PCP Physician Assistant; Visit Provider Internal Medicine | DX: E11.59 Type 2 diabetes mellitus with other circulatory complications (principal) | CPT/HCPCS: 96127; 99212 ==

== ENCOUNTER → 2024-11-03 10:36 | Outpatient (BNV) | payer OTHER, SELFPAY | PROVIDERS: PCP Physician Assistant; Visit Provider Radiology Diagnostic Radiology | DX: I10 Essential (primary) hypertension (principal) | CPT/HCPCS: 76775 ==

== ENCOUNTER 2024-11-24 12:42 | Outpatient (AMB) | payer OTHER, SELFPAY ==
[2024-11-24 13:23] VITALS: BP 150/78; PULSE 84; TEMP 36.4; O2SAT 98; BMI 32.7
--- NOTE | 2024-11-24 13:23 | A.OFFPC_ITS ---
Vital Signs 11/24/24 13:23 Height 5 ft 8 in Weight 215 lb BMI 32.7 BP 150/78 H Blood Pressure Location Rt brachial Position Sitting Pulse 84 Pulse Source Pulse Oximeter Temp 97.5 F Temp Source Temporal Artery Scan Pulse Oximetry (%) 98 Oxygen Delivery Method Room Air Intake Visit Reasons: review DMV paperwork, Intake Note: Patient is here to follow up on Review DMV paperwork. Photographic Developer And Printer Required: No Sizing Machine Tender: Not Required per policy Accompanied by: Self / Same As Patient Allergies No Known Allergies Allergy (Verified 11/24/24 13:51) Medication List - Last Reconciled 11/24/24 by Laurence Carlin PA-C acetaminophen 650 mg PO Q6H PRN adhesive tape As directed amlodipine 10 mg PO DAILY apixaban (Eliquis) 5 mg PO DAILY atorvastatin 40 mg PO DAILY back brace As directed bisacodyl (Dulcolax (bisacodyl)) 10 mg (2 x 5 mg) PO BEDTIME 2 days blood pressure monitor (Blood Pressure Kit) As directed blood-glucose meter,continuous (FreeStyle Jayla 3 [place]) Use daily to monitor blood glucose levels continuously. blood-glucose sensor (FreeStyle Jayla 3 Sensor device) apply new sensor every 14 days dulaglutide (Trulicity) 0.75 mg (0.5 mL) subcut QWEEK ferrous sulfate 325 mg PO DAILY flash glucose scanning reader (FreeStyle Jayla 2 [place]) for continuous use flash glucose sensor (FreeStyle Jayla 2 Sensor kit) for continuous use gabapentin 300 mg PO BEDTIME 30 days glucose (Dex4 Glucose Quick Dissolve) 16 grams (4 x 4 gram) PO Q15M PRN losartan 100 mg PO DAILY 90 days metformin 500 mg PO BIDWMEAL 90 days metoprolol succinate ER 50 mg PO DAILY miscellaneous medical supply 2 ea miscellaneous DAILY 99 days omeprazole 40 mg PO DAILY@0630 ondansetron 8 mg PO Q12H 15 days oxycodone 5 mg PO DAILY PRN 30 days pen needle, diabetic test 4 times daily pen needle, diabetic (BD Ultra-Fine Karen Pen Needle) As directed 4 times a day zolpidem (Ambien) 5 mg PO BEDTIME PRN 30 days Tobacco use date assessed: 11/24/24 Dental Screening Dental Screen Date: 10/27/24 [facility] Medical History Type 2 diabetes mellitus with vascular disease Microalbuminuria Decreased renal function Nausea and vomiting Left ventricular ejection fraction of 40-49% SOB (shortness of breath) on exertion Anemia DMII (diabetes mellitus, type 2) Open wound Anemia of chronic disease Peripheral vascular disease Diabetic foot ulcer Anemia Orthostatic hypotension Gangrene of toe of left foot GERD (gastroesophageal reflux disease) History of angiography PICC (peripherally inserted central catheter) in place Bacteremia Diabetic foot ulcer PAD (peripheral artery disease) Diabetes Surgical History History of amputation below knee History of esophagogastroduodenoscopy (EGD) H/O colonoscopy History of transmetatarsal amputation of left foot Amputated toe of right foot (11/05/20) Family History Other Diabetes No family history of cancer Social History Household Members: None Housing: Apartment Are you a primary animal care technician to a significant other at home: No Do you presently have visiting nurse or other home services: No Alcohol intake: current Alcohol intake frequency: holidays/special occasions only Alcohol type: hard liquor Comment: pt still feeling the same Patient Tobacco Use Status: Former Tobacco user Tobacco use type: Cigarette Cigarette Packs Per Day: 0.5 Cigarettes Per Day: 1 Years Smoked: 15 e-Cigarette/Vaping Use: Never Used Second Hand Smoke Exposure: Yes service: No Current occupational status: unemployed Cognitive needs: No Hearing needs: No Vision needs: No Questionnaire Thrive Questionnaire Date Thrive assessed: 10/27/24 TAQUERIA-7 AMB Questionnaire TAQUERIA-7 Date TAQUERIA - 7 assessed: 10/27/24 Source: Developed by Drs. Dru Gallagher, Aliyah Fitzpatrick, Obdulio Wei and colleagues, with an educational thomas from [employer] Physical exam (Primary Care) Vital Signs: Last Vital Signs Temp 97.5 F 11/24/24 13:23 Pulse 84 11/24/24 13:23 BP 150/78 H 11/24/24 13:23 Pulse Ox 98 11/24/24 13:23 Oxygen Delivery Method Room Air 11/24/24 13:23 Care Plan Goal for BP management: <130/80 patient reports he is currently on amlodipine 10 mg daily, Eliquis 5 mg daily, losartan 100 mg daily, metoprolol extended release 50 mg daily taking as prescribed. Reports that he is in pain due to the weather to his BKA and this is why his blood pressure is elevated. He will monitor his blood pressure and return in 1 month. Will continue current BP regimen. If blood pressure remains elevated within the next month patient will need adjustment in blood pressure medications. BMI result Body Mass Index 32.7 BMI Assessment/Plan discussion: High BMI High, discussed plan: lifestyle, weight reduction, dietary, physical activity and alcohol moderation Tobacco/Smoking Status: Tobacco use Status Tobacco use date assessed 11/24/24 11/24/24 13:27 Patient Tobacco Use Status Former Tobacco user 11/24/24 13:27 Tobacco use type Cigarette 11/24/24 13:27 e-Cigarette/Vaping Use Never Used 11/24/24 13:27 Thrive Assessment: Date of Thrive Assessment Date Thrive assessed 10/27/24 11/24/24 13:27 Coding Level of Care Code Est Pt Level 4 (97191) Complex EM visit Add On G2211 Diagnoses Type 2 diabetes mellitus with vascular disease E11.59 CKD (chronic kidney disease) N18.9 Below-knee amputation of right lower extremity, subsequent encounter S88.111D Encounter type: subsequent encounter Essential hypertension I10 Left ventricular ejection fraction of 40-49% R94.30 Peripheral vascular disease I73.9 Assessment & Plan Assessment & Plan (1) Type 2 diabetes mellitus with vascular disease: Code(s): E11.59 - Type 2 diabetes mellitus with other circulatory complications Category: Medical Plan: Goal for A1c 7.0. A1c level 7.1 on 09/23/2024. Patient currently on Trulicity 0.75 subQ weekly, metformin 500 mg p.o. b.i.d. with meals. Condition is chronic and stable continue to monitor and keep current regimen. (2) CKD (chronic kidney disease): Code(s): N18.9 - Chronic kidney disease, unspecified Category: Medical Plan: BUN and creatinine on 10/13/2024 was 23 and 1.27. Condition is chronic and improved. Will continue to monitor. (3) Below-knee amputation of right lower extremity: Code(s): S88.111A - Complete traumatic amputation at level between knee and ankle, right lower leg, initial encounter Category: Medical Qualifiers: Encounter type: subsequent encounter Qualified Code(s): S88.111D - Complete traumatic amputation at level between knee and ankle, right lower leg, subsequent encounter Plan: Below the knee amputation since since 04/16/2024. Just received prosthetics. Prosthetics in place. Currently on oxycodone 5 mg daily p.r.n. for pain which is providing mild symptomatic relief. Condition is chronic and stable will continue to monitor. (4) Essential hypertension: Code(s): I10 - Essential (primary) hypertension Category: Medical Plan: <130/80 patient reports he is currently on amlodipine 10 mg daily, Eliquis 5 mg daily, losartan 100 mg daily, metoprolol extended release 50 mg daily taking as prescribed. Reports that he is in pain due to the weather to his BKA and this is why his blood pressure is elevated. He will monitor his blood pressure and return in 1 month. Will continue current BP regimen. If blood pressure remains elevated within the next month patient will need adjustment in blood pressure medications. Condition is chronic and stable continue to monitor. (5) Left ventricular ejection fraction of 40-49%: Comment: Echo 10/03/21: grade III severe diastolic dysfunction. Code(s): R94.30 - Abnormal result of cardiovascular function study, unspecified Category: Medical Plan: Patient currently on Eliquis 5 mg daily, amlodipine 10 mg daily, atorvastatin 40 mg daily, losartan 100 mg daily, metoprolol extended release 50 mg daily. Condition is chronic and stable continue to monitor. (6) Peripheral vascular disease: Code(s): I73.9 - Peripheral vascular disease, unspecified Category: Medical Plan: Condition is chronic and stable continue to monitor. Plan Plan During the visit, the patient's primary needs for prosthetic supplies and DMV paperwork were thoroughly assessed. Coordination with [facility] continues for acquisition and maintenance of supplies, and appropriate documentation was provided to support these needs. Pain management has been reviewed, with current medication levels maintained and no increase advised pending further evaluation. No findings indicated respiratory or cardiovascular conditions adversely impacting function; thus, approval for safe vehicle operation was documented. A follow-up was organized to ensure ongoing care and support. Patient Instructions: Patient Instructions - Contact [facility] to verify and arrange necessary supply prescriptions - Maintain current medication regimen, avoiding increases without further medical advice - Observe any swelling or discomfort changes and report significant anomalies - Ensure follow-up appointment scheduling for ongoing prosthetic management and care - Organize DMV follow-up to ensure paperwork is accurate and up to date Scribe Plan - Not visible on output: History of Present Illness The patient is a 53-year-old male presenting with the need for completion of Department of Motor 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 He underwent a right below-knee amputation (BKA) in March, necessitated by vascular disease associated with Type 2 Diabetes Mellitus. This presentation relates to his first-time requirement for formal prosthetic supplies. He noted some swelling around the area, correlated with weather changes, although no change has been made to his pain management regimen, maintaining a stable condition. Previous paperwork submitted encountered a minor error, resulting in today's visit for rectification and further assistance in procurement from [facility]. The patient denies any significant respiratory or cardiovascular impact limiting his current functional abilities, and his capacity to operate a vehicle is unimpeded by medical conditions. Social History - Denies significant cardiovascular or respiratory symptoms affecting daily living or driving capabilities - Engages with prosthetic provider [facility] for device needs and adjustments - Experiences pain correlated with weather changes but effectively manages without increased medication Review of Systems - Cardiovascular: Denies palpitations, dyspnea - Respiratory: Denies any respiratory issues - Musculoskeletal: Reports episodic swelling, discomfort associated with weather changes Physical Exam Appearance: Alert. Oriented X3. No acute distress. Head: Normal external exam. Normocephalic. Atraumatic. Eyes: Pupils are equal, round, and reactive to light. Extraocular movements intact. Conjunctiva and sclera normal. Eyelids normal. Throat: Pharynx normal. Uvula midline. Moist mucous membranes. Neck: Normal inspection. Neck supple. Full range of motion Cardiovascular: Normal heart rate and rhythm. Heart sound normal. No murmurs noted. Pulses normal throughout. Respiratory: No respiratory distress. Painless inspiration. Breath sounds normal. No wheezes/rales/rhonchi noted. Chest nontender. No accessory muscle usage noted or decreased air movement noted. Back: Full range of motion noted. Skin: Skin warm and dry. Normal skin color. Normal skin turgor. No rashes/lesions/lacerations noted. Extremities: Right below-knee amputation (BKA) with prosthetic in place. Neuro: Oriented X 3. No motor deficit. No sensory deficit. Reflexes normal. Patient was informed and verbally consented to the use of an ambient scribe for clinic note documentation during this visit. Discussion Notes Throughout our discussion, I highlighted the importance of obtaining necessary prosthetic supplies and the documentation process required for DMV verification. I advised the patient to initiate contact with [facility] for additional prescription requirements. The management plan involved clear communication regarding any medication adjustments, emphasizing adherence without increment despite identified swelling related to weather variations. I discussed the non- impact of any reported symptoms on driving capabilities, proceeding with DMV endorsement of the patient's condition for license continuation. Follow-up guidance was agreed upon for consistency in therapeutic support and prosthetic service management.
--- OUTSIDE RECORDS SUMMARY | 2024-11-24 15:05 | XMS_ITS | Clinical Summary ---
Author Organization [facility] Address [address] [place] [address] Phone Care Team Providers Care [place] Administrator Name Role Phone Fredy Adair Primary Care Provider [phone] Medications omeprazole (PriLOSEC) [address] capsule [...] Phone Billing Address Personal/Family Self 1970 [phone] [facility] ([id number]) [place] [id number] [facility] ([id number]) [place] [phone] Care Teams [place] Administrator Relationship Specialty Start Date End Date Fredy Adair PA [address] [place] [address], [address] [place] [address] PCP - General Physician Interchange Agent 03/13/23
--- OUTSIDE RECORDS SUMMARY | 2024-11-24 15:05 | XMS_ITS | Encounter Summary ---
Author Organization [facility] Address [address] [place] [address] Care Team Providers Care Material Planner Name Role Phone Fredy Adair Primary Care Provider [phone] Reason for Visit * Reason Comments Foot Pain FU-Diabetic ulcer of ankle associated with type 2 diabetes mellitus, with necrosis of muscle (HCC) (Primary Dx);Cellulitis of right foot;Acute hematogenous osteomyelitis of right foot (HCC);Ulcer of midfoot, right, with necrosis of muscle (HCC) Encounter Details Date Type Department Care Team (Late st Contact Info) Description 10/27/2024 8:15 AM EST Office Visit Orthopedic Surgery - [place] [address] [phone] Miguel A Villegas, DPM [address] [address] Controlled type 2 diabetes with neuropathy (CMS/HCC) (Primary Dx); History of amputation of left foot through metatarsal bone (CMS/HCC); Ulcer of heel and midfoot, left, with fat layer exposed (CMS/HCC) Social History Tobacco Use Types Packs/Day Years [...] at Not on file Legal Sex Male 5:08 AM EST Gender Identity Not on file Sexual Orientation Not on file documented as of this [...] 8:10 AM EST documented in this encounter Progress Notes * Miguel A Villegas DPM - 10/27/2024 8:15 AM EST Referring MD: [place] Last PCP visit: 09/10/2024 IDENTIFIER: @DI@ Asha is a 53 y.o. year old male who presents for consultation. CC: Left foot wound HPI: 53-year-old diabetic male presents office with diabetic foot wound. Patient notes that he has noticed an opening recently and some drainage with foul odor. Patient has been wearing his diabetic insert an AFO. Patient is unsure what kind of pressure or if he stepped on something that caused the wound. Patient denies fever nausea vomiting shortness of breath ROS: GENERAL: Pt denies nausea, fever, vomiting, chills, or shortness of breath. Pt in NAD. CARDIOLOGY: pt denies chest pain, palpitations LUNGS: pt denies shortness of breath MUSCULOSKELETAL: See HPI, otherwise no joint pain or swelling, back pain, or muscle pain. SKIN: see HPI, otherwise no lesions, rash or itching NEURO: No persistent headache, weakness or numbness The remainder of the review of systems is noncontributory PAST MEDICAL HISTORY: Patient Active Problem List Diagnosis Hyperlipidemia Hypertension Iron (Fe) deficiency anemia Peripheral vascular disease (CMS/HCC) Tobacco use disorder Diabetes mellitus type 2 with peripheral artery disease (CMS/HCC) SOCIAL HISTORY: Social History Tobacco Use Smoking status: Every Day Current packs/day: 0.00 Average packs/day: 1 pack/day for 31.0 years (31.0 ttl pk-yrs) Types: Cigarettes Start date: 09/28/1989 Last attempt to quit: 09/28/2020 Years since quittin.0 Smokeless tobacco: Never Substance Use Topics Alcohol use: Not Currently ACTIVE MEDICATIONS: Outpatient Medications Marked as Taking for the 10/27/24 encounter (Office Visit) with Miguel A Villegas DPM Medication Sig Dispense Refill acetaminophen (TYLENOL) 325 mg tablet TAKE 2 TABLETS BY MOUTH EVERY 6 HOURS NEEDED FOR PAIN (MILD TO MODERATE PAIN) FOR UP TO 10 DAYS. amLODIPine (NORVASC) 10 mg tablet Take 1 tablet by mouth daily. apixaban (Eliquis) 5 mg tablet Take 1 tablet by mouth 2 times daily. aspirin 81 mg EC tablet Take 1 tablet by mouth daily. ferrous sulfate 142 mg ER tablet Take 1 tablet by mouth 2 times daily (with meals). ferrous sulfate 325 mg (65 mg iron) EC tablet TAKE 1 TABLET BY MOUTH EVERY OTHER DAY flash glucose sensor (FreeStyle Jayla 2 Sensor) kit USE DIRECTED insulin glargine,hum.rec.anlog (Basaglar KwikPen U-100 Insulin) 100 unit/mL (3 mL) injection pen Inject 15 Units into the skin 2 times daily. linezolid (ZYVOX) 600 mg tablet Take 1 Tablet by mouth 2 Times Daily. lisinopriL (PRINIVIL,ZESTRIL) 20 mg tablet Take 1 tablet by mouth daily. metFORMIN (GLUCOPHAGE) 1,000 mg tablet Take 1 tablet by mouth 2 times daily (with meals). metoprolol succinate (TOPROL-XL) 25 mg 24 hr tablet Take 1 Tablet by mouth daily. - Oral Mounjaro 5 mg/0.5 mL injection omeprazole (PriLOSEC) [address] capsule Take 1 capsule by mouth daily for 360 days. omeprazole (PriLOSEC) [address] capsule TAKE 1 CAPSULE BY MOUTH DAILY AT 630AM ondansetron ODT (ZOFRAN-ODT) 8 mg disintegrating tablet oxyCODONE (ROXICODONE) 5 mg immediate release tablet Take one tablet every 6 hours as needed for pain pen needle, diabetic 32 gauge x 5/32 needle Use with insulin pens 4 times daily before meals. Trulicity 1.5 mg/0.5 mL pen injector injection Inject 1.5 mg into the skin once a week. - Subcutaneous zolpidem (AMBIEN) 5 mg tablet TAKE 1 TABLET BY MOUTH EVERY DAY AT BEDTIME NEEDED FOR SLEEP FOR 7DAYS ALLERGIES: @ALL@ PHYSICAL EXAM: Height 1.727 m (67.99 ), weight 88 kg (194 lb). PODIATRIC EXAMINATION: GENERAL: Patient appears well nourished, with NAD. VASCULAR: Dorsalis pedis pulses are 1/4 bilaterally and Posterior tibial pulses are 1/4 bilaterally. Capillary filling time within normal limits the digits. No pallor on elevation or rubor on dependency. Positive hair growth. No varicosities. Denies rest pain or claudication pain. NEUROLOGICAL: Sharp/dull sensation diminished, protective sensation diminished on [place]. Multipleperipheral neuropathies bilateral feet ORTHOPEDIC: Good muscle strength 5/5 of all flexors and extensors. Dorsi flexion of ankle ,10 degrees, plantar flexion WNL. No muscle atrophy. TMA to the left foot with midfoot breach from Charcot neuropathy. DERMATOLOGICAL:.Open wound to the plantar aspect of the foot that is 1 cm in diameter with fibrogranular base. Some malodor. Serous drainage no deep tracking or probe to bone. Periwound erythema without cellulitis tracking BIOMECHANICS: Antalgic gait IMPRESSION: 1. Controlled type 2 diabetes with neuropathy (CMS/HCC) 2. History of amputation of left foot through metatarsal bone (CMS/HCC) 3. Ulcer of heel and midfoot, left, with fat layer exposed ([facility]) PLAN: Pt was seen and examined, history reviewed. Patient instructed to keep his sugar well-controlled in order limit continued wound and nonhealing area of the foot. Patient with wound to the plantar aspect of the left foot. Patient required debridement as described below. Patient was dressed with an offloading pad and Betadine with dry sterile dressing. Patient instructed to dress his foot every other day. Patient to return in 1 week for site check to ensure that the foot is healing. Patient understands he may require surgical intervention to remove the bonyprominence to the plantar aspect of the foot decrease pressure in the future Open wound selective debridement of devitalized soft tissue, fibrin, epidermis, dermis, thru skin and subcutaneous tissue, first 20 sq cm or less, using sterile sharp dissection #15 scalpel blade of the left foot plantar wound. Pt. deferred anesthesia. . Devitalized tissue was not sent to pathology. Miguel A Villegas DPM documented in this encounter Plan of Treatment Upcoming Encounters Date Type Department Care Team (Chelsea Moreno Info) Description 12/22/2024 8:15 AM EDT Office Visit Orthopedic Surgery - [place] [address] [facility] [address] [place] [id number] Miguel A Villegas, DPM [address] [facility] [address] [place] [address] documented as of this encounter Visit Diagnoses Diagnosis Controlled type 2 diabetes with neuropathy (CMS/HCC)- Primary Type II or unspecified type diabetes mellitus with neurological manifestations, not stated as uncontrolled History of amputation of left foot through metatarsal bone (CMS/HCC) Ulcer of heel and midfoot, left, with fat layer exposed (CMS/HCC) documented in this encounter Care Teams Material Planner Relationship Specialty Start Date End Date Fredy Adair PA [address] [place] [phone] PCP - General Internal Medicine 10/09/21 documented as of this encounter
--- OUTSIDE RECORDS SUMMARY | 2024-11-24 15:05 | XMS_ITS | Clinical Summary ---
Author Organization 175 [facility] Address 175 [place] [address] Phone Care Team Providers Care Link Wire Fabric Machine Tender Name Role Phone Fredy Adair Primary Care Provider [phone] Allergies No known active allergies Medications acetaminophen (TYLENOL) 325 mg tablet TAKE 2 TABLETS BY MOUTH EVERY 6 HOURS NEEDED FOR PAIN (MILD TO MODERATE PAIN) FOR UP TO 10 DAYS. 10/15/19 24 Active amLODIPine (NORVASC) 10 mg tablet Take 1 tablet by mouth daily. 08/16/20 21 Active apixaban (Eliquis) 5 mg tablet Take 1 tablet by mouth 2 times daily. 08/16/20 21 Active aspirin 81 mg EC tablet Take 1 tablet by mouth daily. 08/16/20 21 Active flash glucose sensor (FreeStyle Jayla 2 Sensor) kit USE DIRECTED 02/28/20 24 Active Trulicity 1.5 mg/0.5 mL pen injector injection Inject 1.5 mg into the skin once a week. - Subcutaneous Active ferrous sulfate 142 mg ER tablet Take 1 tablet by mouth 2 times daily (with meals). 03/27/20 21 Active ferrous sulfate 325 mg (65 mg iron) EC tablet TAKE 1 TABLET BY MOUTH EVERY OTHER DAY 02/23/20 24 Active insulin glargine,hum.rec.a nlog (Basaglar KwikPen U-100 Insulin) 100 unit/mL (3 mL) injection pen Inject 15 Units into the skin 2 times daily. 08/16/20 21 Active pen needle, diabetic 32 gauge x 5/32 needle Use with insulin pens 4 times daily before meals. 08/16/20 21 Active linezolid (ZYVOX) 600 mg tablet Take 1 Tablet by mouth 2 Times Daily. 02/23/20 24 Active lisinopriL (PRINIVIL,ZESTRIL) 20 mg tablet Take 1 tablet by mouth daily. 08/16/20 21 Active metFORMIN (GLUCOPHAGE) 1,000 mg tablet Take 1 tablet by mouth 2 times daily (with meals). 08/16/20 21 Active metoprolol succinate (TOPROL-XL) 25 mg 24 hr tablet Take 1 Tablet by mouth daily. - Oral 11/04/19 24 Active Mounjaro 5 mg/0.5 mL injection 03/08/20 24 Active omeprazole (PriLOSEC) [address] capsule Take 1 capsule by mouth daily for 360 days. 08/16/20 21 Active omeprazole (PriLOSEC) [address] capsule TAKE 1 CAPSULE BY MOUTH DAILY AT 630AM 03/09/20 24 Active ondansetron ODT (ZOFRAN-ODT) 8 mg disintegrating tablet 03/08/20 24 Active oxyCODONE (ROXICODONE) 5 mg immediate release tablet Take one tablet every 6 hours as needed for pain 10/15/19 24 Active zolpidem (AMBIEN) 5 mg tablet TAKE 1 TABLET BY MOUTH EVERY DAY AT BEDTIME NEEDED FOR SLEEP FOR 7 DAYS 12/23/19 24 Active Active Problems Problem Noted Date Diagnosed Date Peripheral vascular disease 07/26/2024 Iron (Fe) deficiency anemia 02/11/2021 Hyperlipidemia 01/11/2021 Diabetes mellitus type 2 with peripheral artery disease 10/31/2020 Hypertension 02/10/2020 Tobacco use disorder 01/31/2019 Encounters Date Type Department Care Team Description 11/22/2024 8:45 AM EST Office Visit Orthopedic Surgery [facility] [address] [phone] Miguel A Villegas DPM Controlled type 2 diabetes with neuropathy (CMS/HCC) (Primary Dx); History of amputation of left foot through metatarsal bone (CMS/HCC); Ulcer of heel and midfoot, left, with fat layer exposed (CMS/HCC) 10/27/2024 8:15 AM EST Office Visit Orthopedic Surgery [facility] [address] [phone] Miguel A Villegas DPM Controlled type 2 diabetes with neuropathy ([facility]/HCC) (Primary Dx); History of amputation of left foot through metatarsal bone ([facility]/HCC); Ulcer of heel and midfoot, left, with fat layer exposed ([facility]/HCC) 08/24/2024 1:00 PM EST Office Visit Infectious Disease [facility] [address] [facility] [address] [place] [address] Jeny Light MD Below-knee amputation of right lower extremity, sequela ([facility]/HCC) (Primary Dx); Diabetic foot ([facility]) 08/24/[address] [facility] [address] [facility] [address] [place] [address] Jerilyn Short RN from Last 3 Months Surgical History Surgery Date Site/Laterality Comments ANGIOPLASTY 2019 Right PROCEDURE: HISTORICAL ANGIOPLASTY W/STENT; COMMENT: leg BYPASS GRAFT 11/05/2020 Right PROCEDURE: HI AMPUTATION TOE METATARSOPHALANGEAL JOINT; COMMENT: 4 th toe OTHER SURGICAL HISTORY 04/18/2024 Right PROCEDURE: HI I&D BELOW FASCIA FOOT MULTIPLE AREAS OTHER SURGICAL HISTORY 04/18/2024 Right PROCEDURE: HI INCISION BONE CORTEX FOOT OTHER SURGICAL HISTORY 04/20/2024 Right PROCEDURE: HI AMPUTATION LEG THROUGH TIBIA&FIBULA Medical History Medical History Date Comments Uncontrolled diabetes mellitus D X:Uncontrolled diabetes mellitus Normocytic anemia DX:Normocytic anemia; COMMENT: Herbert 01/2021 Peripheral vascular disease ([facility]) DX:Peripheral vascular disease (HCC) Esophageal reflux DX:Esophageal [...] on file Sexual Orientation Not on file Obstetrics History Last Filed Vital Signs Vital Sign Reading Time Taken Comments Blood Pressure 146/85 08/24/2024 1:09 PM EST Pulse 82 08/24/2024 1:09 PM EST Temperature 36.8 ??C (98.2 ??F) 08/24/2024 1:09 PM ES T Respiratory Rate 18 08/24/2024 1:09 PM EST Oxygen Saturation - - Inhaled Oxygen Concentration - - Weight 88 kg (194 lb) 11/22/2024 8:47 AM EST Height 172.7 cm (5' 7.99 ) 11/22/2024 8:47 AM ES T Body Mass Index 29.5 11/22/2024 8:47 AM EST Plan of Treatment Upcoming Encounters Date Type Department Care Team (Late st Contact Info) Description 12/22/2024 8:15 AM EDT Office Visit Orthopedic Surgery - [place] [address] [address] Miguel A Villegas, DPMadhu [address] [address] Health Maintenance Due Date Last Done Comments Diabetes: Annual Foot Exam 1982 Diabetes: Annual Retina Eye Exam 1982 DTaP,Tdap,and Td Vaccines (1 - Tdap) 12/13/1991 Hepatitis B Vaccines (1 of 3 - 19+ 3-dose series) 12/13/1991 Pneumococcal Vaccine: 50+ Years (1 of 2 - PCV) 12/13/1991 Pneumococcal Vaccine: Pediatrics (0 to 5 Years) and At-Risk Patients (6 to 64 Years) (1 of 2 - PCV) 12/13/1991 Colorectal Cancer Screening: Colonoscopy 08/31/2022 Depression [...] patient's age to complete this topic Meningococcal B Vacine Aged Out No lo nger eligible based on patient's age to complete [...] Results * Annual BMP Blood Test (03/29/2024) Annual BMP Blood Test Abstracted Historical Provider MD HEALTH MAINTENANCE Final Result * (ABNORMAL) Hemoglobin A1c (05/17/2021) Hemoglobin A1C 8.7(A) <=6.5 % Blood Venous blood specimen / Unknown Result [facility] Provider LAB BLOOD ORDERABLES Kimberlee l Result * (ABNORMAL) Lipid panel (05/17/2021) LDL/HDL Ratio 3 0 - 4 Triglycerides 76 0 - 150 mg/dL Cholesterol 115 0 - 200 mg/dL HDL 38(A) >=40 mg/dL LDL Cholesterol 62 0 - 100 mg/dL Blood Venous blood specimen / Unknown Result [facility] Provider LAB BLOOD ORDERABLES Kimberlee l Result * Urine Albumin Creatinine Ratio (02/12/2021) Pathologist [facility] Urine Albumin Creatinine Ratio Abstracted Result [facility] Provider HEALTH MAINTENANCE Final Result from Last 3 Months or Most Recently Relevant to Health Maintenance Insurance [facility] MEDICARE Member Subscriber Plan / Payer (Ef fective 2023-Present) Name:Irving Barry Relation to Subscriber:Self Name:Irving Barry Payer ID:[id number] Group ID:[id number] Type:Not on file Address: [place] [address] [place] [phone] Advance Directives Documents on File Type Date Recorded Patient Actuarial Analyst Expl anation Health Care Decision (hx) 04/26/2024 HE ALTH CARE PROXY Health Care Decision (hx) 11/04/2023 AD KOENIG DIRECTIVE Health Care Decision (hx) 11/04/2023 AD KOENIG DIRECTIVE Health Care Decision (hx) 11/04/2023 AD KOENIG DIRECTIVE Health Care Decision (hx) 11/04/2023 AD KOENIG DIRECTIVE Health Care Decision (hx) 11/04/2023 AD KOENIG DIRECTIVE Health Care Decision (hx) 11/04/2023 AD KOENIG DIRECTIVE Care Teams Link Wire Fabric Machine Tender Relationship Specialty Start Date End Date Fredy Adair PA [address] [place] [phone] PCP - General Internal Medicine 10/09/21
--- OUTSIDE RECORDS SUMMARY | 2024-11-24 15:05 | XMS_ITS | Encounter Summary ---
Author Organization [facility] Address [address] [place] [address] Care Team Providers Care Brick Catcher Name Role Phone Fredy Adair Primary Care Provider [phone] Reason for Visit * Reason Comments DM Foot Care Diabetic ulcer of an kle associated with type 2 diabetes mellitus, with necrosis of muscle (HCC) (Primary Dx);Cellulitis of right foot;Acute hematogenous osteomyelitis of right foot (HCC);Ulcer of midfoot, right, with necrosis of muscle (HCC) Encounter Details Date Type Department Care Team (Late st Contact Info) Description 11/22/2024 8:45 AM EST Office Visit Orthopedic Surgery - [place] [address] [phone] Miguel A Villegas, DPM [address] [address] Controlled type 2 diabetes with neuropathy (CMS/HCC) (Primary Dx); History of amputation of left foot through metatarsal bone (CMS/HCC); Ulcer of heel and midfoot, left, with fat layer exposed (CMS/HCC) Social History Tobacco Use Types Packs/Day Years Used Date Smoking Tobacco: Every Day Cigarettes 1 31 Started: 09/28/1989; Last attempted to quit: 09/28/2020 Smokeless Tobacco: Never Alcohol Use Standard Drinks/Week Comments Not Currently [...] Mass Index 29.5 11/22/2024 8:47 AM EST documented in this encounter Progress Notes * Miguel A Villegas DPM - 11/22/2024 8:45 AM EST Referring MD: [place] Last PCP visit: 09/10/2024 IDENTIFIER: @TITLE@ Asha is a 53 y.o. year old male who presents for consultation. CC: Left foot wound HPI: 53-year-old diabetic male returns office for left foot wound. Patient has been continue to use AFO but notes that he continues to need increased callus formation from the plantar aspect of the foot. Patient has been dressing his foot every other day. Patient denies any new fever nausea vomit shortness of breath. ROS: GENERAL: Pt denies nausea, fever, vomiting, [...] Iron (Fe) deficiency anemia Peripheral vascular disease ([facility]/HCC) Tobacco use disorder Diabetes mellitus type 2 with peripheral artery disease ([facility]/HCC) SOCIAL HISTORY: Social History Tobacco Use Smoking status: Every Day Current packs/day: 0.00 Average packs/day: 1 pack/day for 31.0 years (31.0 ttl pk-yrs) Types: Cigarettes Start date: 09/28/1989 Last attempt to quit: 09/28/2020 Years since quittin.1 Smokeless tobacco: Never Substance Use Topics Alcohol use: Not Currently ACTIVE MEDICATIONS: Outpatient Medications Marked as Taking for the 11/22/24 encounter (Office Visit) with Miguel A A Bakari, DPM Medication Sig Dispense Refill acetaminophen (TYLENOL) [...] Sharp/dull sensation diminished, protective sensation diminished on [place]. Multipleperipheral neuropathies bilateral feet ORTHOPEDIC: Good muscle strength 5/5 of all flexors and extensors. Dorsi flexion of ankle ,10 degrees, plantar flexion WNL. No muscle atrophy. TMA to the left foot with midfoot breach from Charcot neuropathy. DERMATOLOGICAL:.Open wound to the plantar aspect the left foot with regular hyperkeratotic rim and callus summation about the plantar aspect. Fibrogranular subcutaneous base with some undermining. Nodeep tracking or malodor. BIOMECHANICS: Antalgic gait IMPRESSION: 1. Controlled type 2 diabetes with neuropathy (CMS/HCC) 2. History of amputation of left foot through metatarsal bone ([facility]) 3. Ulcer of heel and midfoot, left, with fat layer exposed ([facility]) PLAN: Pt was seen and [...] every other day. Patient to return in 3 week for site check to ensure that the foot is healing. Patient understands he may require surgical intervention to remove the bony prominence to the plantar aspect of the foot [...] Upcoming Encounters Date Type Department Care Team ([facility] st Contact Info) Description 12/22/2024 8:15 AM EDT Office Visit Orthopedic Surgery - [place] 250 175 [facility] 250 [place] [phone] Miguel A Villegas, DESHAWN 175 [facility] [address] [place] [address] documented as of this encounter Visit Diagnoses Diagnosis Controlled type 2 diabetes with neuropathy (CMS/HCC)- Primary Type II or unspecified type diabetes mellitus with neurological manifestations, not stated as uncontrolled History of amputation of left foot through metatarsal bone (CMS/HCC) Ulcer of heel and midfoot, left, with fat layer exposed (CMS/HCC) documented in this encounter Care Teams Brick Catcher Relationship Specialty Start Date End Date Fredy Adair PA [address] [place] [phone] PCP - General Internal Medicine 10/09/21 documented as of this encounter
== END 2024-11-24 13:54 | disposition home or self-care (01) ==
PROVIDERS: PCP Physician Assistant; Visit Provider Physician Assistant Medical
DX: I12.9 Hypertensive chronic kidney disease with stage 1 through stage 4 chronic kidney disease, or unspecified chronic kidney disease (principal); E11.59 Type 2 diabetes mellitus with other circulatory complications; N18.9 Chronic kidney disease, unspecified; S88.111D Complete traumatic amputation at level between knee and ankle, right lower leg, subsequent encounter; I73.9 Peripheral vascular disease, unspecified; R94.30 Abnormal result of cardiovascular function study, unspecified

== ENCOUNTER → 2024-11-24 12:42 | Outpatient (BNVA) | payer OTHER, SELFPAY | PROVIDERS: PCP Physician Assistant; Visit Provider Physician Assistant Medical | DX: E11.59 Type 2 diabetes mellitus with other circulatory complications (principal); I12.9 Hypertensive chronic kidney disease with stage 1 through stage 4 chronic kidney disease, or unspecified chronic kidney disease; E11.22 Type 2 diabetes mellitus with diabetic chronic kidney disease; N18.9 Chronic kidney disease, unspecified; R94.30 Abnormal result of cardiovascular function study, unspecified; I73.9 Peripheral vascular disease, unspecified; S88.111D Complete traumatic amputation at level between knee and ankle, right lower leg, subsequent encounter | CPT/HCPCS: 99212 ==

== ENCOUNTER 2024-11-25 08:37 | Outpatient (AMB) | payer OTHER, SELFPAY ==
--- NOTE | 2024-11-25 08:48 | A.OFFVIS_ITS ---
Vital Signs 11/25/24 08:49 Height 5 ft 8 in Weight 216 lb 0.848 oz BMI 32.8 BP 130/80 Blood Pressure Location Rt brachial Position Sitting Pulse 85 Pulse Source Pulse Oximeter Pulse Oximetry (%) 99 Oxygen Delivery Method Room Air Intake Visit Reasons: type II diabetes Intake Note: Patient presents today for a follow-up on Type 2 Diabetes Mellitus: Last Diabetic eye exam was on: DUE Last Podiatry exam was on: Patient does not see a Consumer Loan Processor Most recent HbA1c: 7.1%, 09/23/2024 Random Glucose- 203 mg/dL, Today Allergies No Known Allergies Allergy (Verified 11/24/24 13:51) HPI Comments Details: This is a 53-year-old male with a past medical history of type 2 diabetes, peripheral vascular disease and coronary artery disease presenting for diabetic management. He was diagnosed with diabetes about 13 years ago. Seeing podiatry once a month at [place]. He forgot his CGM today and glucometer today. Hemoglobin a1c 7.1% 09/23/2024. Current medication regimen: Trulicity 0.75 mg weekly, metformin 500 mg twice a day. He has not been taking Lantus. Says he also has Basaglar at home, and he isn't taking this either.. He says he might take it once or twice per week if his sugar is over 250, but he did not take it today or the last few days. POC 203 postprandially today. He reports the following: Fasting sugars 160-200. Reports postprandial 200-250. Occasionally 300 if he has [place] food with soda. Past medication: Mounjaro discontinued when he switched Trulicity. Reported Mounjaro was not as effective for him. He is trying to eat healthier, but he does she a couple of times per week. Hypoglycemia symptoms: none Hyperglycemia symptoms: polyuria if high Eye exam: due for eye exam at [facility] Microvascular complications: retinopathy, nephropathy, neuropathy Macrovascular complications: Diabetic ulcers - resolved, PVD, CAD, below knee amputation of right leg March 2024, five toes amputated from the left foot Hyperlipidemia: treated with atorvastatin 40 mg LDL at goal <100. ROS: Constitutional: No unexplained weight loss, fever, chills or night sweats. Eyes: No vision changes Respiratory: No shortness of breath Cardiovascular: No chest pain Physical exam: Constitutional: Alert, in no distress. Neck: Supple, Full range of motion. No lymphadenopathy. Respiratory: Clear to auscultation. Cardiovascular: S1 S2 regular. No murmurs. [facility] Medical History Type 2 diabetes mellitus with vascular disease Microalbuminuria Decreased renal function Nausea and vomiting Left ventricular ejection fraction of 40-49% SOB (shortness of breath) on exertion Anemia DMII (diabetes mellitus, type 2) Open wound Anemia of chronic disease Peripheral vascular disease Diabetic foot ulcer Anemia Orthostatic hypotension Gangrene of toe of left foot GERD (gastroesophageal reflux disease) History of angiography PICC (peripherally inserted central catheter) in place Bacteremia Diabetic foot ulcer PAD (peripheral artery disease) Diabetes Surgical History History of amputation below knee History of esophagogastroduodenoscopy (EGD) H/O colonoscopy History of transmetatarsal amputation of left foot Amputated toe of right foot (11/05/20) Family History Other Diabetes No family history of cancer Social History Household Members: None Housing: Apartment Are you a primary foster care social worker to a significant other at home: No Do you presently have visiting nurse or other home services: No Alcohol intake: current Alcohol intake frequency: holidays/special occasions only Alcohol type: hard liquor Comment: pt still feeling the same Patient Tobacco Use Status: Former Tobacco user Tobacco use type: Cigarette Cigarette Packs Per Day: 0.5 Cigarettes Per Day: 1 Years Smoked: 15 e-Cigarette/Vaping Use: Never Used Second Hand Smoke Exposure: Yes service: No Current occupational status: unemployed Cognitive needs: No Hearing needs: No Vision needs: No Physical Exam Vital Signs: Last Vital Signs Pulse 85 11/25/24 08:49 BP 130/80 11/25/24 08:49 Pulse Ox 99 11/25/24 08:49 Oxygen Delivery Method Room Air 11/25/24 08:49 BMI result Body Mass Index 32.8 Results Reviewed Results Reviewed: Laboratory Last Values Glucose (Clinic) 203 mg/dL (60-115) H 11/25/24 08:52 Laboratory Tests 10/25/23 03/14/24 09/23/24 05:55 08:15 08:54 Plt Count Creatinine Estimated GFR Hgb A1c (Clinic) 7.1 H AST ALT B-Natriuretic Peptide 2266 H Urine Creatinine 103.24 Urine Microalbumin 1556.0 Microalb/Creat Ratio 1507.1 H 10/13/24 10:56 Plt Count 366 Creatinine 1.27 Estimated GFR 60 Hgb A1c (Clinic) AST 22 ALT 17 B-Natriuretic Peptide Urine Creatinine Urine Microalbumin Microalb/Creat Ratio Assessment & Plan Assessment & Plan (1) Type 2 diabetes mellitus with vascular disease: Code(s): E11.59 - Type 2 diabetes mellitus with other circulatory complications Category: Medical (2) Microalbuminuria: Code(s): R80.9 - Proteinuria, unspecified Category: Medical Plan In summary this is a 53-year-old male with suboptimally controlled type 2 diabetes with micro and macrovascular complications. Reviewed importance of diabetic eye exams. He is seeing Podiatry once a month now. He is also followed by Nephrology. Diabetic diet and lifestyle modifications reviewed with the patient. Declined appointment with dietitian and honey extractor. Reviewed the importance of bringing his glucometer to all appointments. Increase Trulicity to 1.5 mg weekly. Continue metformin 500 mg twice a day. Since he has not been taking his basal insulin he can remain off of this for now. I will bring him back in a few weeks to review his sensor data to determine if medications need to be adjusted further. We may consider addition of SGLT2 given renal complications. Patient was instructed to call if blood sugars are routinely over 250. If you experience low blood sugar, treat this by eating a chewable fruit candy like skittles or jelly beans (about 8 pieces), 4 ounces (1/2 cup) of fruit juice (not diet), 1 tablespoon of honey or 4 glucose tablets. If your blood sugar is under 50, take double the amount of one of the above. Recheck your blood sugar in 15 minutes. Prescribed glucose tablets. Do not drive if you do not have a reliable way to monitor blood glucose or have symptoms of hypoglycemia. Follow up in 3 weeks for type 2 diabetes. Medications: New dulaglutide (Trulicity) 1.5 mg (0.5 mL) subcut QWEEK 2 mL 3RF Refilled blood-glucose sensor (FreeStyle Jayla 3 Sensor device) apply new sensor every 14 days 2 ea 11RF E11.59 - Type 2 diabetes mellitus with other circulatory complications Discontinued dulaglutide (Trulicity) Replaces Mounjaro Discontinued Reason: Doctor's Order 0.75 mg (0.5 mL) subcut QWEEK 2 mL 0RF Patient Instructions: Increase Trulicity to 1.5 mg weekly Continue Metformin 500 mg twice daily Since you have not been taking insulin you can stay off of it for now. If you experience low blood sugar, treat this by eating a chewable fruit candy like skittles or jelly beans (about 8 pieces), 4 ounces (1/2 cup) of fruit juice (not diet), 1 tablespoon of honey or 4 glucose tablets. If your blood sugar is under 50, take double the amount of one of the above. Recheck your blood sugar in 15 minutes. Coding Level of Care Code Est Pt Level 4 (82989) Complex EM visit Add On G2211 Diagnoses Type 2 diabetes mellitus with vascular disease E11.59 Microalbuminuria R80.9
[2024-11-25 08:49] VITALS: BP 130/80; PULSE 85; O2SAT 99; BMI 32.8
--- OUTSIDE RECORDS SUMMARY | 2024-11-25 08:54 | XMS_ITS | Encounter Summary ---
Author Organization [employer] Address [address] [place] [address] Care Team Providers Care Body Specialist Name Role Phone Fredy Adair Primary Care Provider [phone] Reason for Visit * Reason Comments DM [...] AM EST Office Visit Orthopedic Surgery - [place] [address] [phone] Miguel A Villegas, DPM [address] [address] Controlled type 2 diabetes with neuropathy (CMS/HCC) [...] Iron (Fe) deficiency anemia Peripheral vascular disease ([facility]/HCC) Tobacco use disorder Diabetes mellitus type 2 with peripheral artery disease ([facility]/HCC) SOCIAL HISTORY: Social History Tobacco Use Smoking [...] Sharp/dull sensation diminished, protective sensation diminished on [place]. Multipleperipheral neuropathies bilateral feet ORTHOPEDIC: Good muscle [...] amputation of left foot through metatarsal bone ([facility]) 3. Ulcer of heel and midfoot, left, with fat layer exposed ([facility]) PLAN: Pt was seen and examined, history [...] Upcoming Encounters Date Type Department Care Team ([facility] st Contact Info) Description 12/22/2024 8:15 AM EDT Office Visit Orthopedic Surgery - [place] 250 175 [facility] 250 [place] [phone] Miguel A Villegas, DESHAWN 175 [facility] 250 [place] [address] documented as of this encounter Visit Diagnoses Diagnosis Controlled type 2 diabetes with neuropathy (CMS/HCC)- Primary Type II or unspecified type diabetes mellitus with neurological manifestations, not stated as uncontrolled History of amputation of left foot through metatarsal bone (CMS/HCC) Ulcer of heel and midfoot, left, with fat layer exposed (CMS/HCC) documented in this encounter Care Teams Body Specialist Relationship Specialty Start Date End Date Fredy Adair PA [address] [place] [phone] PCP - General Internal Medicine 10/09/21 documented as of this encounter
--- OUTSIDE RECORDS SUMMARY | 2024-11-25 08:54 | XMS_ITS | Clinical Summary ---
Author Organization [facility] Address [address] [place] [address] [place] [address] Phone Care Team Providers Care Inspector Floor Sub Assembly Name Role Phone Fredy Adair Primary Care Provider [phone] Medications omeprazole (PriLOSEC) [address] capsule [...] Phone Billing Address Personal/Family Self 1970 [address] [place] [phone] [facility] ([id number]) [place] [phone] [facility] ([id number]) [place] [phone] Care Teams Inspector Floor Sub Assembly Relationship Specialty Start Date End Date Fredy Adair PA [address] [place] [address], [address] [place] [address] PCP - General Physician Imposer 03/13/23
--- OUTSIDE RECORDS SUMMARY | 2024-11-25 08:54 | XMS_ITS | Encounter Summary ---
Author Organization [facility] Address [address] [place] [address] Care Team Providers Care Electrical Maintenance Man Name Role Phone Fredy Adair Primary Care Provider [phone] Reason for Visit * Reason Comments Foot Pain FU-Diabetic ulcer of ankle associated with type 2 diabetes mellitus, with necrosis of muscle (HCC) (Primary Dx);Cellulitis of right foot;Acute hematogenous osteomyelitis of right foot (HCC);Ulcer of midfoot, right, with necrosis of muscle (HCC) Encounter Details Date Type Department Care Team (Late st Contact Info) Description 10/27/2024 8:15 AM EST Office Visit Orthopedic Surgery - [place] [address] [phone] Miguel A Villegas, DPM [address] [address] Controlled type 2 diabetes with neuropathy (CMS/HCC) [...] Sharp/dull sensation diminished, protective sensation diminished on [place]. Multipleperipheral neuropathies bilateral feet ORTHOPEDIC: Good muscle [...] and midfoot, left, with fat layer exposed ([facility]) PLAN: Pt was seen and examined, history [...] AM EDT Office Visit Orthopedic Surgery - [place] 250 175 [facility] [address] [place] [phone] Miguel A Villegas, DPM [address] [facility] [address] [place] [address] documented as of this encounter Visit Diagnoses Diagnosis Controlled type 2 diabetes with neuropathy (CMS/HCC)- Primary Type II or unspecified type diabetes mellitus with neurological manifestations, not stated as uncontrolled History of amputation of left foot through metatarsal bone (CMS/HCC) Ulcer of heel and midfoot, left, with fat layer exposed (CMS/HCC) documented in this encounter Care Teams Electrical Maintenance Man Relationship Specialty Start Date End Date Fredy Adair PA [address] [place] [phone] PCP - General Internal Medicine 10/09/21 documented as of this encounter
--- OUTSIDE RECORDS SUMMARY | 2024-11-25 08:54 | XMS_ITS | Clinical Summary ---
Author Organization 175 [facility] Address 175 [place] [address] Phone Care Team Providers Care Polytechnic Registrar Name Role Phone Fredy Adair Primary Care Provider [phone] Allergies No known active allergies Medications acetaminophen [...] 8:45 AM EST Office Visit Orthopedic Surgery [facility] [address] [phone] Miguel A Villegas DPM Controlled type 2 diabetes with neuropathy (CMS/HCC) (Primary Dx); History of amputation of left foot through metatarsal bone (CMS/HCC); Ulcer of heel and midfoot, left, with fat layer exposed (CMS/HCC) 10/27/2024 8:15 AM EST Office Visit Orthopedic Surgery [facility] [address] [phone] Miguel A Villegas DPM Controlled type 2 diabetes with neuropathy ([facility]/HCC) (Primary Dx); History of amputation of left foot through metatarsal bone (CMS/HCC); Ulcer of heel and midfoot, left, with fat layer exposed (CMS/HCC) from Last 3 Months Surgical History Surgery [...] anemia; COMMENT: Herbert 01/2021 Peripheral vascular disease ([facility]/HCC) DX:Peripheral vascular disease ([facility]) Esophageal reflux DX:Esophageal reflux Anemia DX:Anemia Hyperlipidemia [...] AM EDT Office Visit Orthopedic Surgery - [place] 250 175 [facility] 250 [place] [phone] Miguel A Villegas, DESHAWN 175 [facility] [address] [place] [address] Health Maintenance Due Date Last Done Comments [...] Vaccines (1 of 2) 2022 COVID-19 Vaccine ( - 2023-2 5 season) 2024 Influenza Vaccine [...] * Annual BMP Blood Test (03/29/2024) Pathologist On license of [facility] Annual BMP Blood Test Abstracted Historical Provider HEALTH MAINTENANCE Final Result * (ABNORMAL) Hemoglobin A1c (05/17/2021) Pathologist [facility] Hemoglobin A1C 8.7(A) <=6.5 % Blood Venous blood specimen / Unknown Historical Provider LAB BLOOD ORDERABLES Kimberlee l Result * (ABNORMAL) Lipid panel (05/17/2021) [facility] LDL/HDL Ratio 3 0 - 4 Triglycerides 76 0 - 150 mg/dL Cholesterol 115 0 - 200 mg/dL HDL 38(A) >=40 mg/dL LDL Cholesterol 62 0 - 100 mg/dL Blood Venous blood specimen / Unknown Historical Provider LAB BLOOD ORDERABLES Kimberlee l Result * Urine Albumin Creatinine Ratio (02/12/2021) Urine Albumin Creatinine Ratio Abstracted Historical Provider HEALTH MAINTENANCE Final Result from Last 3 Months or Most Recently Relevant to Health [place] [address] [employer] MEDICARE Member Subscriber Plan / Payer (Ef fective 2023-Present) Name:Irving Barry Relation to Subscriber:Self Name:Irving Barry Payer ID:[id number] Group ID:[id number] Type:Not on file Address: [place] [address] [place] [phone] Advance Directives Documents on File Type Date Recorded Patient Family Services Coordinator Expl anation Health Care Decision (hx) 04/26/2024 HE ALTH CARE PROXY Health Care Decision (hx) 11/04/2023 AD KOENIG DIRECTIVE Health Care Decision (hx) 11/04/2023 AD KOENIG DIRECTIVE Health Care Decision (hx) 11/04/2023 AD KOENIG DIRECTIVE Health Care Decision (hx) 11/04/2023 AD KOENIG DIRECTIVE Health Care Decision (hx) 11/04/2023 AD KOENIG DIRECTIVE Health Care Decision (hx) 11/04/2023 AD KOENIG DIRECTIVE Care Teams Polytechnic Registrar Relationship Specialty Start Date End Date Fredy Adair PA [address] [facility] [place] [address] PCP - General Internal Medicine 10/09/21
[2024-11-25 08:56] LABS: Glucose, Whole Blood 203 mg/dL (60-115)
== END 2024-11-25 09:25 | disposition home or self-care (01) ==
PROVIDERS: PCP Physician Assistant; Visit Provider Physician Assistant Medical
DX: E11.59 Type 2 diabetes mellitus with other circulatory complications (principal); R80.9 Proteinuria, unspecified

== ENCOUNTER → 2024-11-25 08:37 | Outpatient (BNVA) | payer OTHER, SELFPAY | PROVIDERS: PCP Physician Assistant; Visit Provider Physician Assistant Medical | DX: E11.59 Type 2 diabetes mellitus with other circulatory complications (principal); R80.9 Proteinuria, unspecified; Z79.84 Long term (current) use of oral hypoglycemic drugs | CPT/HCPCS: 82947; 99212 ==

== ENCOUNTER 2024-12-16 08:04 | Outpatient (AMB) | payer OTHER, SELFPAY ==
--- OUTSIDE RECORDS SUMMARY | 2024-12-16 08:07 | XMS_ITS | Clinical Summary ---
Author Organization 175 [facility] Address 175 [place] [address] Phone Care Team Providers Care Central Supply Technician Supervisor Name Role Phone Fredy Adair Primary Care Provider [phone] Allergies No known active allergies Medications acetaminophen [...] 8:45 AM EST Office Visit Orthopedic Surgery [facility] [address] [phone] Miguel A Villegas DPM Controlled type 2 diabetes with neuropathy (CMS/HCC) (Primary Dx); History of amputation of left foot through metatarsal bone (CMS/HCC); Ulcer of heel and midfoot, left, with fat layer exposed (CMS/HCC) 10/27/2024 8:15 AM EST Office Visit Orthopedic Surgery [facility] [address] [phone] Miguel A Villegas DPM Controlled type 2 diabetes with neuropathy ([facility]/HCC) (Primary Dx); History of amputation of left foot through metatarsal bone (CMS/HCC); Ulcer of heel and midfoot, left, with fat layer exposed (CMS/HCC) from Last 3 Months Surgical History Surgery Date Site/Laterality Comments ANGIOPLASTY 2019 Right PROCEDURE: HISTORICAL ANGIOPLASTY W/STENT; COMMENT: leg BYPASS GRAFT 11/05/2020 Right PROCEDURE: DE AMPUTATION TOE METATARSOPHALANGEAL JOINT; COMMENT: 4 th toe OTHER SURGICAL HISTORY 04/18/2024 Right PROCEDURE: DE I&D BELOW FASCIA FOOT MULTIPLE AREAS OTHER SURGICAL HISTORY 04/18/2024 Right PROCEDURE: DE INCISION BONE CORTEX FOOT OTHER SURGICAL HISTORY 04/20/2024 Right PROCEDURE: DE AMPUTATION LEG THROUGH TIBIA&FIBULA Medical History Medical History Date Comments Uncontrolled diabetes mellitus D X:Uncontrolled diabetes mellitus Normocytic anemia DX:Normocytic anemia; COMMENT: Herbert 01/2021 Peripheral vascular disease ([facility]/HCC) DX:Peripheral vascular disease ([facility]) Esophageal reflux DX:Esophageal reflux Anemia DX:Anemia Hyperlipidemia [...] AM EDT Office Visit Orthopedic Surgery - [place] 250 175 [facility] 250 [place] [phone] Miguel A Villegas, DESHAWN 175 [facility] [address] [place] [address] Health Maintenance Due Date Last Done Comments [...] * Annual BMP Blood Test (03/29/2024) Pathologist [facility] Annual BMP Blood Test Abstracted Historical Provider HEALTH MAINTENANCE Final Result * (ABNORMAL) Hemoglobin A1c (05/17/2021) Pathologist [facility] Hemoglobin A1C 8.7(A) <=6.5 % Blood Venous blood specimen / Unknown Historical Provider LAB BLOOD ORDERABLES Kimberlee l Result * (ABNORMAL) Lipid panel (05/17/2021) [facility] LDL/HDL Ratio 3 0 - 4 Triglycerides [...] Relevant to Health [place] [address] [employer] MEDIC[employer] Member Subscriber Plan / Payer (Ef fective 2023-Present) Name:Irving Barry Relation to Subscriber:Self Name:Irving Barry Payer ID:[id number] Group ID:[id number] Type:Not on file Address: [place] [address] [place] [phone] Advance Directives Documents on File Type Date Recorded Patient Operation Specialist Expl anation Health Care Decision (hx) 04/26/2024 HE ALTH CARE PROXY Health Care Decision (hx) 11/04/2023 AD KOENIG DIRECTIVE Health Care Decision (hx) 11/04/2023 AD KOENIG DIRECTIVE Health Care Decision (hx) 11/04/2023 AD KOENIG DIRECTIVE Health Care Decision (hx) 11/04/2023 AD KOENIG DIRECTIVE Health Care Decision (hx) 11/04/2023 AD KOENIG DIRECTIVE Health Care Decision (hx) 11/04/2023 AD KOENIG DIRECTIVE Care Teams Central Supply Technician Supervisor Relationship Specialty Start Date End Date Fredy Adair PA [address] [facility] [place] [address] PCP - General Internal Medicine 10/09/21
--- OUTSIDE RECORDS SUMMARY | 2024-12-16 08:07 | XMS_ITS | Encounter Summary ---
Author Organization [facility] Address [address] [place] [address] Care Team Providers Care Development Expert Name Role Phone Fredy Adair Primary Care Provider [phone] Reason for Visit * Reason Comments DM [...] AM EST Office Visit Orthopedic Surgery - [place] [address] [phone] Miguel A Villegas, DPM [address] [address] Controlled type 2 diabetes with neuropathy (CMS/HCC) [...] Iron (Fe) deficiency anemia Peripheral vascular disease ([facility]/HCC) Tobacco use disorder Diabetes mellitus type 2 with peripheral artery disease ([facility]/HCC) SOCIAL HISTORY: Social History Tobacco Use Smoking [...] Sharp/dull sensation diminished, protective sensation diminished on [place]. Multipleperipheral neuropathies bilateral feet ORTHOPEDIC: Good muscle [...] amputation of left foot through metatarsal bone ([facility]) 3. Ulcer of heel and midfoot, left, with fat layer exposed ([facility]) PLAN: Pt was seen and examined, history [...] Upcoming Encounters Date Type Department Care Team ([facility] st Contact Info) Description 12/22/2024 8:15 AM EDT Office Visit Orthopedic Surgery - [place] 250 175 [facility] 250 [place] [phone] Miguel A Villegas, DESHAWN [address] [facility] [address] [place] [address] documented as of this encounter Visit Diagnoses Diagnosis Controlled type 2 diabetes with neuropathy (CMS/HCC)- Primary Type II or unspecified type diabetes mellitus with neurological manifestations, not stated as uncontrolled History of amputation of left foot through metatarsal bone (CMS/HCC) Ulcer of heel and midfoot, left, with fat layer exposed (CMS/HCC) documented in this encounter Care Teams Development Expert Relationship Specialty Start Date End Date Fredy Adair PA [address] [place] [phone] PCP - General Internal Medicine 10/09/21 documented as of this encounter
--- OUTSIDE RECORDS SUMMARY | 2024-12-16 08:07 | XMS_ITS | Clinical Summary ---
Author Organization [facility] Address [address] [place] [place] [address] Phone Care Team Providers Care Crochet Beader Name Role Phone Fredy Adair Primary Care Provider [phone] Medications omeprazole (PriLOSEC) [address] capsule [...] Phone Billing Address Personal/Family Self 1970 [address] [id number] [facility] ([id number]) [place] [address] [facility] ([id number]) [place] [address] Care Teams Crochet Beader Relationship Specialty Start Date End Date Fredy Adair PA [address] [place] [address], [address] [place] [address] PCP - General Physician Glass Cleaning Machine Tender 03/13/23
--- NOTE | 2024-12-16 08:18 | MHC.OFFVIS ---
Vital Signs 12/16/24 08:22 Height 5 ft 8 in Weight 215 lb 2.738 oz BMI 32.7 BP 114/72 Blood Pressure Location Lt brachial Position Sitting Pulse 76 Pulse Source Pulse Oximeter Pulse Oximetry (%) 94 Oxygen Delivery Method Room Air Intake Visit Reasons: type II diabetes Intake Note: Patient present today to follow up on Type 2 Diabetes Mellitus. Last Diabetic Eye exam: Due Last Podiatry Visit: Does not see a Compliance Lead Random Glucose: 172 mg/dl HgA1C: 8.2% 12/16/2024 Circular Gang Saw Operator Required: No Accompanied by: Self / Same As Patient Allergies No Known Allergies Allergy (Verified 12/16/24 08:23) Medication List - Last Reconciled 12/16/24 by [place] LIDIA Simmons acetaminophen 650 mg PO Q6H PRN adhesive tape As directed alcohol swabs (Alcohol Pads) 1 pad topical QID amlodipine 10 mg PO DAILY apixaban (Eliquis) 5 mg PO DAILY atorvastatin 40 mg PO DAILY back brace As directed bisacodyl (Dulcolax (bisacodyl)) 10 mg (2 x 5 mg) PO BEDTIME 2 days blood pressure monitor (Blood Pressure Kit) As directed blood-glucose meter,continuous (FreeStyle Jayla 3 [place]) Use daily to monitor blood glucose levels continuously. blood-glucose sensor (FreeStyle Jayla 3 Sensor device) apply new sensor every 14 days dulaglutide (Trulicity) 1.5 mg (0.5 mL) subcut QWEEK ferrous sulfate 325 mg PO DAILY flash glucose scanning reader (FreeStyle Jayla 2 [place]) for continuous use flash glucose sensor (FreeStyle Jayla 2 Sensor kit) for continuous use gabapentin 300 mg PO BEDTIME 30 days glucose (Dex4 Glucose Quick Dissolve) 16 grams (4 x 4 gram) PO Q15M PRN losartan 100 mg PO DAILY 90 days metformin orally 2 times per day with meals; metoprolol succinate ER 50 mg PO DAILY miscellaneous medical supply 2 ea miscellaneous DAILY 99 days omeprazole 40 mg PO DAILY@0630 ondansetron 8 mg PO Q12H 15 days oxycodone 5 mg PO DAILY PRN 30 days pen needle, diabetic test 4 times daily pen needle, diabetic (BD Ultra-Fine Karen Pen Needle) As directed 4 times a day zolpidem (Ambien) 5 mg PO BEDTIME PRN 30 days HPI Comments Details: This is a 54-year-old male with a past medical history of type 2 diabetes, peripheral vascular disease and coronary artery disease presenting for diabetic management. He was diagnosed with diabetes about 13 years ago. Seeing podiatry once a month at [place]. Reviewed Jayla 3+ download CGM active 92% Average glucose 226 GMI 8.7% Glucose variability 22.5% Very high 27% High 26% Target range 17% 0% hypoglycemia. He has a pattern of hyperglycemia that is steady throughout a 24 hour period. Hemoglobin a1c 8.2% today up from 7.1% 09/23/2024. Current medication regimen: Trulicity 1.5 mg weekly (he did not start it yet, he is still taking 0.75 mg, but he is starting this dose this weekend), metformin 500 mg twice a day. Patient is not taking basal insulin. He has a short acting at home that he uses occasionally when he has [place] food or sweets. He administers this if his blood sugars over 250. Past medication: Mounjaro discontinued when he switched Trulicity. Reported Mounjaro was not as effective for him. Hypoglycemia symptoms: none Hyperglycemia symptoms: polyuria if high Eye exam: due for eye exam at [facility] Microvascular complications: retinopathy, nephropathy, neuropathy Macrovascular complications: Diabetic ulcers, PVD, CAD, below knee amputation of right leg March 2024, five toes amputated from the left foot. Followed by Podiatry. Hyperlipidemia: treated with atorvastatin 40 mg LDL at goal <100. ROS: Constitutional: No unexplained weight loss, fever, chills or night sweats. Eyes: No vision changes Respiratory: No shortness of breath Cardiovascular: No chest pain Physical exam: Constitutional: Alert, in no distress. Neck: Supple, Full range of motion. No lymphadenopathy. Respiratory: Clear to auscultation. Cardiovascular: S1 S2 regular. No murmurs. [facility] Medical History Type 2 diabetes mellitus with vascular disease Microalbuminuria Decreased renal function Nausea and vomiting Left ventricular ejection fraction of 40-49% SOB (shortness of breath) on exertion Anemia DMII (diabetes mellitus, type 2) Open wound Anemia of chronic disease Peripheral vascular disease Diabetic foot ulcer Anemia Orthostatic hypotension Gangrene of toe of left foot GERD (gastroesophageal reflux disease) History of angiography PICC (peripherally inserted central catheter) in place Bacteremia Diabetic foot ulcer PAD (peripheral artery disease) Diabetes Surgical History History of amputation below knee History of esophagogastroduodenoscopy (EGD) H/O colonoscopy History of transmetatarsal amputation of left foot Amputated toe of right foot (11/05/20) Family History Other Diabetes No family history of cancer Social History Household Members: None Housing: Apartment Are you a primary manager intensive care unit to a significant other at home: No Do you presently have visiting nurse or other home services: No Alcohol intake: current Alcohol intake frequency: holidays/special occasions only Alcohol type: hard liquor Comment: pt still feeling the same Patient Tobacco Use Status: Former Tobacco user Tobacco use type: Cigarette Cigarette Packs Per Day: 0.5 Cigarettes Per Day: 1 Years Smoked: 15 e-Cigarette/Vaping Use: Never Used Second Hand Smoke Exposure: Yes service: No Current occupational status: unemployed Cognitive needs: No Hearing needs: No Vision needs: No Physical Exam Vital Signs: Last Vital Signs Pulse 76 12/16/24 08:22 BP 114/72 12/16/24 08:22 Pulse Ox 94 12/16/24 08:22 Oxygen Delivery Method Room Air 12/16/24 08:22 BMI result Body Mass Index 32.7 Office Procedures Glucose Monitoring Details Details: See [facility] [address] - Glucose monitoring, continuous-physician I&R Procedure code (CPT) selection complete Results AMB Hemoglobin A1c AMB Hemoglobin A1c 8.2 % Last Edit by JEWEL Hannah on 12/16/24 08:40 Results Reviewed Results Reviewed: Laboratory Last Values Glucose (Clinic) 172 mg/dL (60-115) H 12/16/24 08:29 Laboratory Tests 10/25/23 03/14/24 09/23/24 05:55 08:15 08:54 Plt Count Creatinine Estimated GFR Hgb A1c (Clinic) 7.1 H AST ALT B-Natriuretic Peptide 2266 H Urine Creatinine 103.24 Urine Microalbumin 1556.0 Microalb/Creat Ratio 1507.1 H 10/13/24 10:56 Plt Count 366 Creatinine 1.27 Estimated GFR 60 Hgb A1c (Clinic) AST 22 ALT 17 B-Natriuretic Peptide Urine Creatinine Urine Microalbumin Microalb/Creat Ratio Assessment & Plan Assessment & Plan (1) Type 2 diabetes mellitus with vascular disease: Code(s): E11.59 - Type 2 diabetes mellitus with other circulatory complications Category: Medical (2) Microalbuminuria: Code(s): R80.9 - Proteinuria, unspecified Category: Medical Plan In summary this is a 53-year-old male with suboptimally controlled type 2 diabetes with micro and macrovascular complications. Reviewed importance of diabetic eye exams. He is seeing Podiatry once a month now. He is also followed by Nephrology. Diabetic diet and lifestyle modifications reviewed with the patient. Declined appointment with dietitian and conservation educator. Reviewed the importance of bringing his glucometer to all appointments. Increase Trulicity to 1.5 mg weekly. Increase metformin to 1000 mg with breakfast and 500 mg with dinner. Check renal function prior to next appointment. Patient instructed to call with the name of the insulin he has at home and how many units he administers when sugar is over 250. Patient says he is not using it otherwise. If you experience low blood sugar, treat this by eating a chewable fruit candy like skittles or jelly beans (about 8 pieces), 4 ounces (1/2 cup) of fruit juice (not diet), 1 tablespoon of honey or 4 glucose tablets. If your blood sugar is under 50, take double the amount of one of the above. Recheck your blood sugar in 15 minutes. Prescribed glucose tablets. Do not drive if you do not have a reliable way to monitor blood glucose or have symptoms of hypoglycemia. Follow up in 4 weeks for type 2 diabetes. Orders: Orders Creatinine 3 Weeks E11.59 - Type 2 diabetes mellitus with other circulatory complications AMB Glucose Monitoring Today E11.9 - Type 2 diabetes mellitus without complications AMB Hemoglobin A1c Today E11.59 - Type 2 diabetes mellitus with other circulatory complications Patient Instructions: If you experience low blood sugar, treat this by eating a chewable fruit candy like skittles or jelly beans (about 8 pieces), 4 ounces (1/2 cup) of fruit juice (not diet), 1 tablespoon of honey or 4 glucose tablets. If your blood sugar is under 50, take double the amount of one of the above. Recheck your blood sugar in 15 minutes. Prescribed glucose tablets. Do not drive if you do not have a reliable way to monitor blood glucose or have symptoms of hypoglycemia. Increase Metformin to 2 tablets in the morning with breakfast (1000 mg) and 1 tab (500 mg) in the evening with dinner. Increase Trulicity to 1.5 mg weekly. Coding Level of Care Code Est Pt Level 4 (37429) Diagnoses Type 2 diabetes mellitus with vascular disease E11.59 Microalbuminuria R80.9 CPT Codes Details - CPT: 59323 - Glucose monitoring, continuous-physician I&R ([id number])
[2024-12-16 08:22] VITALS: BP 114/72; PULSE 76; O2SAT 94; BMI 32.7
[2024-12-16 08:35] LABS: Glucose, Whole Blood 172 mg/dL (60-115)
== END 2024-12-16 08:45 | disposition home or self-care (01) ==
LOC: HO.ENCR 08:04
PROVIDERS: PCP Physician Assistant; Visit Provider Physician Assistant Medical
DX: E11.59 Type 2 diabetes mellitus with other circulatory complications (principal); R80.9 Proteinuria, unspecified

== ENCOUNTER → 2024-12-16 08:04 | Outpatient (BNVA) | payer OTHER, SELFPAY | PROVIDERS: PCP Physician Assistant; Visit Provider Physician Assistant Medical | DX: E11.59 Type 2 diabetes mellitus with other circulatory complications (principal); R80.9 Proteinuria, unspecified | CPT/HCPCS: 82947; 83036; 99212 ==

== ENCOUNTER 2025-01-06 10:59 | Outpatient (AMB) | payer OTHER, SELFPAY ==
--- NOTE | 2025-01-06 11:12 | A.OFFPC_ITS ---
Vital Signs 01/06/25 11:13 Height 5 ft 8 in BMI Reason not done Patient refused/unable BP 110/76 Blood Pressure Location Lt brachial Position Sitting Pulse 74 Pulse Source Pulse Oximeter Temp 97.5 F Temp Source Temporal Artery Scan Pulse Oximetry (%) 98 Oxygen Delivery Method Room Air Intake Visit Reasons: Leslie foot ulcer 12/30/24 Intake Note: Patient is here for hospital discharge follow up. Patient was discharged from [facility] on 12/31/24. 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: Present Accompanied by: Spouse Allergies No Known Allergies Allergy (Verified 01/06/25 11:28) Medication List - Last Reconciled 01/06/25 by Laurence Carlin PA-C acetaminophen 650 mg PO Q6H PRN adhesive tape As directed alcohol swabs (Alcohol Pads) 1 pad topical QID amlodipine 10 mg PO DAILY apixaban (Eliquis) 5 mg PO DAILY atorvastatin 40 mg PO DAILY back brace As directed bisacodyl (Dulcolax (bisacodyl)) 10 mg (2 x 5 mg) PO BEDTIME 2 days blood pressure monitor (Blood Pressure Kit) As directed blood-glucose sensor (FreeStyle Jayla 3 Sensor device) apply new sensor every 14 days blood-glucose,counseling program leader,cont (FreeStyle Jayla 3 [place]) Use daily to monitor blood glucose levels continuously. dulaglutide (Trulicity) 1.5 mg (0.5 mL) subcut QWEEK ferrous sulfate 325 mg PO DAILY flash glucose scanning reader (FreeStyle Jayla 2 [place]) for continuous use flash glucose sensor (FreeStyle Jayla 2 Sensor kit) for continuous use gabapentin 300 mg PO BEDTIME 30 days glucose (Dex4 Glucose Quick Dissolve) 16 grams (4 x 4 gram) PO Q15M PRN losartan 100 mg PO DAILY 90 days metformin orally 2 times per day with meals; metoprolol succinate ER 50 mg PO DAILY miscellaneous medical supply 2 ea miscellaneous DAILY 99 days omeprazole 40 mg PO DAILY@0630 ondansetron 8 mg PO Q12H 15 days oxycodone 5 mg PO DAILY PRN 30 days pen needle, diabetic test 4 times daily pen needle, diabetic (BD Ultra-Fine Karen Pen Needle) As directed 4 times a day zolpidem (Ambien) 5 mg PO BEDTIME PRN 30 days Tobacco use date assessed: 01/06/25 Dental Screening Dental Screen Date: 10/27/24 HPI HPI Comments History of Present Illness Details Patient presents to the office for hospital discharge follow-up from [facility]. Date of admission: 12/26/2024 Date of discharge: 12/31/2024 This is a Follow-up from admission at [facility] HPI: HPI: The patient is a 54-year-old male presenting with a hospital discharge follow- up. During his recent hospitalization at [facility], he was treated for a left foot ulcer primarily caused by his type 2 diabetes mellitus and complicated by peripheral vascular disease. His admission was prompted by development of left lower extremity wounds and subsequent osteomyelitis, which was complicated by MRSA infection. His care involved incision and drainage of the infected foot followed by secondary closure with antibiotic beads. A transthoracic echocardiogram was performed to rule out cardiac involvement, with no endocarditis detected. Imaging from a CT scan of the chest and abdomen showed no additional infection sites. He began a course of IV Vancomycin to manage the MRSA infection and was placed on ztp-[id number]-evppedr status for the left leg. The patient has a significant history of coronary artery disease and has undergone both a right below-knee amputation and a left transmetatarsal amputation linked to his vascular and diabetic conditions. His blood pressure is managed with Indapamide, Metoprolol, Amlodipine, and Hydralazine, and his diabetes is controlled with Lantus and Lispro. His chronic kidney disease status remains monitored, with a noted creatinine of 1.4. Furthermore, a follow-up in three months is necessitated for a pulmonary nodule in the left lower lobe discovered during his recent admission. Post-discharge care includes regular visits from a visiting nurse agency to assist with ulcer management. Hospital Dicharge Summary/follow-up 54-year-old male with a past medical his tory significant for type 2 diabetes, peripheral vascular disease, coronary artery disease, right BKA, left TMA presented to the hospital with complaints of left lower extremity wounds. Diabetic foot infection, osteomyelitis left foot, complicated by MRSA bacteremia. MRI of left foot showed inferomedial ulcer with fluid/phlegmon tracking from the ulcer into the plantar and medial soft tissues. There is osteomyelitis involving the cuboid. Patient underwent I and D on 12/27/2024 and underwent left foot secondary wound closure, antibiotic beads on 12/29/2024 by cylinder tester. Cultures were reviewed which grew MRSA. Patient underwent SHANDA which showed no endocarditis. Patient has CT of chest abdomen completed to rule out focal infection which was negative for infection although revealed pulmonary nodule and they recommend outpatient CT scan in 3-6 months to continue to monitor this pulmonary nodule. Patient was started on IV vanco until 01/24/[address] at this time. Patient was instructed to be nonweightbearing to left lower extremity. Patient to continue aspirin, statin, Eliquis. For his hypertension they wanted him to continue Imdur, metoprolol, amlodipine and they added hydralazine t.i.d.. For his CKD he received IV fluids and his creatinine upon discharge was 1.40. His type 2 diabetes is being managed by Lantus and lispro sliding scale. For his left lower lobe pulmonary nodule he will need a repeat CT scan in 3-6 months. He has a PICC line in place. VNA will be coming to his house Thursday and Fridays. He reports he will need a home health aide. He does not need meals on wheels. He does need a handicap placard form filled out. He also has been in a lot of pain and is not currently on any pain medications for his amputations. Reports Dr. Inman have prescribed him 5 mg oxycodone 1 today proximally 30 days ago although due to the increasing pain and the recent surgeries he was taking it 2 to 3 times a day. Discharged to/Current Location: Home with VNA services. VNA comes on Wednesdays and Fridays. Lives with: and Daughter 9 year old Diagnosis: Foot ulcer due to secondary diabetes and PVD Procedures performed: Patient had labs, blood cultures, CT scan of chest abdomen and pelvis along with a shanda. PICC line was placed. New medications: Hydralazine 25 mg t.i.d. Discontinued medications: No medications were discontinued Change medications/dosing: Patient was instructed to take Eliquis 2.5 mg twice a day instead of 5 mg daily Pending labs: There are no pending outpatient labs Pending diagnostic test: There are no pending outpatient diagnostic test Any Follow-up Labs required? There are no pending outpatient follow-up labs required Any Follow-up Diagnostic test required? Patient will need a follow-up CT scan of lungs due to left lower lung pulmonary nodule found on 12/31/2024 at [facility]. Ordered at this time patient understands. How are you feeling? Patient reports he is feeling good Are you in any pain or discomfort? Patient reports he is in pain. 10 out of 10. Do you have any questions about your condition or discharge instructions? Not at this time questions were answered at this visit. Were you able to get your medications filled? Patient has not received pain medications. Dr. Inman sent oxycodone 5 mg 1 month ago although pt has new amputation to left lower extremity therefore will possibly need oxycodone 2 to 3 times a day. Will send prescription of oxycodone 5 mg to be taken b.i.d. for 30 days with partial refill available. Do you have any questions about your medications? Patient does not have any other questions other than the pain med medications that he did not receive and he is in 10/10 pain after this amputation. Any referrals required? No further referral's required Were you able to schedule your follow-up appointment? Patient was able to schedule all his follow-up appointment If home health was ordered, have they contact you? Home health aide was not ordered and and patient feel like this would be beneficial Any outpatient services, if so, are you scheduled? They do not need any additional outpatient services other than a home health aide and a VNA Are there any additional resources like transportation you might need during her recovery? - VNA? In place - [employer]? Requesting - Meals on wheels? They do not require any meals on wheels at this time does the cooking Educational need/resources: What support system do you have? and daughter [facility] Medical History (Updated 01/06/25 @ 12:36 by Laurence Carlin PA-C) Abscess of periosteum without osteomyelitis Hospital discharge follow-up Amputation of left foot Pulmonary nodules Type 2 diabetes mellitus with vascular disease Microalbuminuria Decreased renal function Nausea and vomiting Left ventricular ejection fraction of 40-49% SOB (shortness of breath) on exertion Anemia DMII (diabetes mellitus, type 2) Open wound Anemia of chronic disease Peripheral vascular disease Diabetic foot ulcer Anemia Orthostatic hypotension Gangrene of toe of left foot GERD (gastroesophageal reflux disease) History of angiography PICC (peripherally inserted central catheter) in place Bacteremia Diabetic foot ulcer PAD (peripheral artery disease) Diabetes Surgical History History of amputation below knee History of esophagogastroduodenoscopy (EGD) H/O colonoscopy History of transmetatarsal amputation of left foot Amputated toe of right foot (11/05/20) Family History Other Diabetes No family history of cancer Social History Household Members: None Housing: Apartment Are you a primary ocular care technician to a significant other at home: No Do you presently have visiting nurse or other home services: No Alcohol intake: current Alcohol intake frequency: holidays/special occasions only Alcohol type: hard liquor Comment: pt still feeling the same Patient Tobacco Use Status: Former Tobacco user Tobacco use type: Cigarette Cigarette Packs Per Day: 0.5 Cigarettes Per Day: 1 Years Smoked: 15 e-Cigarette/Vaping Use: Never Used Second Hand Smoke Exposure: Yes service: No Current occupational status: unemployed Cognitive needs: No Hearing needs: No Vision needs: No Questionnaire Thrive Questionnaire Date Thrive assessed: 10/27/24 TAQUERIA-7 AMB Questionnaire TAQUERIA-7 Date TAQUERIA - 7 assessed: 10/27/24 Source: Developed by Drs. Dru Gallagher, Aliyah Fitzpatrick, Obdulio Wei and colleagues, with an educational thomas from [employer]. Review of Systems Const Details: - Musculoskeletal: Reports pain in amputated left lower extremity. - Cardiovascular: Denies current chest pain. - Respiratory: Denies shortness of breath. - General: Reports feeling generally well; pain rated 1 out of 10. - Gastrointestinal: Denies nausea, vomiting (except nausea associated with medication intake). Physical exam (Primary Care) Vital Signs: Last Vital Signs Temp 97.5 F 01/06/25 11:13 Pulse 74 01/06/25 11:13 BP 110/76 01/06/25 11:13 Pulse Ox 98 01/06/25 11:13 Oxygen Delivery Method Room Air 01/06/25 11:13 Vitals signs have been reviewed. Care Plan Goal for BP management: <130/90 BMI Assessment/Plan discussion: High BMI High, discussed plan: lifestyle, weight reduction, dietary, physical activity and alcohol moderation Tobacco/Smoking Status: Tobacco use Status Tobacco use date assessed 01/06/25 01/06/25 11:17 Patient Tobacco Use Status Former Tobacco user 01/06/25 11:17 Tobacco use type Cigarette 01/06/25 11:17 e-Cigarette/Vaping Use Never Used 01/06/25 11:17 Thrive Assessment: Date of Thrive Assessment Date Thrive assessed 10/27/24 01/06/25 11:17 Const Other: Appearance: Alert. Oriented X3. No acute distress. Head: Normal external exam. Normocephalic. Atraumatic. Eyes: Pupils are equal, round, and reactive to light. Extraocular movements intact. Conjunctiva and sclera normal. Eyelids normal. Throat: Pharynx normal. Uvula midline. Moist mucous membranes. Neck: Normal inspection. Neck supple. Full range of motion. Cardiovascular: Normal heart rate and rhythm. Respiratory: No respiratory distress. Painless inspiration. Skin: Skin warm and dry. Normal skin color. Normal skin turgor. Extremities: Patient has prosthesis to right lower extremity. Patient has Fidel wrap with wound dressing to left foot. I did not remove these dressings. He has been nonweightbearing. There is no lower extremity edema noted to the left lower extremity. Patient moving upper extremities without any difficulties. Patient sitting in wheelchair at this time. Neuro: Oriented X 3. Results Reviewed Results Reviewed: - Labs: Creatinine noted at 1.4 indicating CKD management. - Tests and Diagnostics: - Transthoracic echocardiogram: No endocarditis. - CT chest and abdomen: No focal infection or additional sites. - Pulmonary nodule in left lower lobe detected, to be monitored with CT follow- up in three months. Coding Level of Care Code Est Pt Level 4 (24518) Complex EM visit Add On G2211 Diagnoses Hospital discharge follow-up Z09 Below-knee amputation of right lower extremity, subsequent encounter S88.111D Encounter type: subsequent encounter Type 2 diabetes mellitus with vascular disease E11.59 CKD (chronic kidney disease) N18.9 Amputation of left foot S98.912A Subacute osteomyelitis of left foot M86.272 Laterality: left Osteomyelitis location: foot Osteomyelitis type: subacute Pulmonary nodules R91.8 Assessment & Plan Assessment & Plan (1) Hospital discharge follow-up: Code(s): Z09 - Encounter for follow-up examination after completed treatment for conditions other than malignant neoplasm Category: Medical Plan: Home health aide order placed at this time, will obtain will ordered from the surgeon at [facility], patient to continue VNA services Thursday/Thursday and Fridays. Patient to continue PICC line until 01/24/2025 for osteomyelitis of left foot status post amputation left foot. Condition is stable at this time will continue to monitor (2) Below-knee amputation of right lower extremity: Code(s): S88.111A - Complete traumatic amputation at level between knee and ankle, right lower leg, initial encounter Category: Medical Qualifiers: Encounter type: subsequent encounter Qualified Code(s): S88.111D - Complete traumatic amputation at level between knee and ankle, right lower leg, subsequent encounter Plan: Condition is chronic and stable continue to monitor. (3) Type 2 diabetes mellitus with vascular disease: Code(s): E11.59 - Type 2 diabetes mellitus with other circulatory complications Category: Medical Plan: Condition is chronic and stable will continue to monitor. (4) CKD (chronic kidney disease): Code(s): N18.9 - Chronic kidney disease, unspecified Category: Medical Plan: Condition is chronic and stable will continue to monitor. (5) Amputation of left foot: Code(s): S98.912A - Complete traumatic amputation of left foot, level unspecified, initial encounter Category: Medical Plan: Condition is new and stable will continue to monitor. (6) Osteomyelitis: Code(s): M86.9 - Osteomyelitis, unspecified Category: Medical Qualifiers: Laterality: left Osteomyelitis location: foot Osteomyelitis type: subacute Qualified Code(s): M86.272 - Subacute osteomyelitis, left ankle and foot Plan: Patient to continue following up with the surgeon, wound clinic, VNA services at home 3 times a week, dressing changes, PICC line with vancomycin until 01/24/2025. Condition is stable will continue to monitor. (7) Pulmonary nodules: Code(s): R91.8 - Other nonspecific abnormal finding of lung field Category: Medical Plan: Condition is chronic and stable CT scan of chest in 3 months' ordered at this time. Patient aware. Plan Plan Patient was informed and verbally consented to the use of an ambient scribe for clinic note documentation during this visit. 1. Solitary pulmonary nodule Scheduled for follow-up imaging to assess progression or resolution. 2. Osteomyelitis Of The Left Foot Managed successfully via drainage and antibiotics to address infection. 3. Acquired absence of left foot Mobility and stabilization addressed in post-surgical care. 4. Chronic Kidney Disease Ckd Monitoring of renal function with supportive treatment strategies as needed. 5. Type 2 Diabetes Mellitus Blood glucose levels maintained with specific insulin regimen. 6. Foot Ulcer Due To Diabetes Treatment involved surgical intervention with antibiotic assistance to support wound healing and prevention of further infection. 7. Methicillin-Resistant Staphylococcus Aureus Mrsa Infection Treated with Vancomycin with close monitoring for further infection control. 8. Peripheral Vascular Disease Monitored for complications and progression, addressed surgically as needed. 9. Coronary Artery Disease Cad Management maintained with current medication regimen for cardiovascular support. I discussed with the patient the primary diagnoses, management plans, and follow-up care. For his foot ulcer and MRSA infection, Vancomycin IV therapy is ongoing, and the importance of adhering to [id number]-[id number] instructions was emphasized to facilitate healing. The risk of recurring infection without proper rest was highlighted. I recommended follow-up imaging in three months for the pulmonary nodule to observe any growth, aiming to preempt any malignant transformation. I reinforced the adherence to diabetic dietary guidelines and continuation of current medication regimens for hypertension, diabetes, and CAD for preventative care. We addressed concerns around pain management post- amputation, agreeing to adjust doses temporarily to control symptoms more effectively subject to regulatory constraints. I discussed future outpatient support measures including home health aiding, with clear assignments for appointments and visits to manage care decisively. The patient was encouraged to reach out with any new or worsening symptoms and to attend scheduled follow-ups. Orders: Orders CT chest wo IV con 3 Months R91.8 - Other nonspecific abnormal finding of lung field Referrals Home Health Referral E11.59 - Type 2 diabetes mellitus with other circulatory complications, N18.9 - Chronic kidney disease, unspecified, S88.111D - Complete traumatic amputation at level between knee and ankle, right lower leg, subsequent encounter, S98.912A - Complete traumatic amputation of left foot, level unspecified, initial encounter Wound Care Referral E11.59 - Type 2 diabetes mellitus with other circulatory complications, S88.111D - Complete traumatic amputation at level between knee and ankle, right lower leg, subsequent encounter, S98.912A - Complete traumatic amputation of left foot, level unspecified, initial encounter Medications: Changed From oxycodone Partial Fill upon patient request. 5 mg PO DAILY 30 days PRN 30 tabs 0RF pain S88.111D - Complete traumatic amputation at level between knee and ankle, right lower leg, subsequent encounter To oxycodone Partial Fill upon patient request. 5 mg PO BID 30 days PRN 60 tabs 0RF pain S88.111D - Complete traumatic amputation at level between knee and ankle, right lower leg, subsequent encounter Refilled blood-glucose,counseling program leader,cont (Post-i Jayla 3 [place]) Use daily to monitor blood glucose levels continuously. 1 ea 0RF Patient Instructions: - Attend all scheduled VNA visits and follow [id number] instructions to promote wound healing on your left foot. - Continue current medication regimen, including maintaining insulin doses and managing blood pressure. - Follow diabetic diet guidelines and watch for any signs of infection. - Schedule and attend a follow-up CT scan for the pulmonary nodule in three months. - Observe pain medication dosing as instructed, consult with medical provider if pain increases. - Check with your insurer regarding fill dates for medications and any discrepancies at the pharmacy. - Contact healthcare providers with any new symptoms, infections, or if any worsening occurs in your current condition. - Ensure follow-up with Dr. Inman as scheduled and confirm arrangements for outpatient support if needed.
[2025-01-06 11:13] VITALS: BP 110/76; PULSE 74; TEMP 36.4; O2SAT 98
--- OUTSIDE RECORDS SUMMARY | 2025-01-06 11:58 | XMS_ITS | Clinical Summary ---
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 METHOD 12/31/2024 7:50 AM [facility] BUN 12 5 - 25 mg/dL LAB CHEMISTRY METHOD 12/31/2024 7:50 AM [facility] Creatinine 1.40(H) 0.70 - 1.30 mg/dL LAB CHEMISTRY METHOD 12/31/2024 7:50 AM [facility] eGFR 60 >=60 mL/min/1. 73m2 LAB CHEMISTRY METHOD 12/31/2024 7:50 AM [facility] Comment:Calculation based on the??Chronic Kidney Disease Epidemiology Collaboration (CKD-EPI) equation refit??without adjustment for race. BUN/Creatinine Ratio 8.6 LAB CHEMISTRY METHOD 12/31/2024 7:50 AM [facility] Calcium 8.4(L) 8.5 - 10.5 mg/dL LAB CHEMISTRY METHOD 12/31/2024 7:50 AM [facility] Blood Blood sample taken from central line / Unknown Long-term Catheter / Unknown 12/31/2024 6:12 AM EDT 12/31/2024 6:47 AM EDT Nkechi DUGGAN LAB BLOOD ORDERABLES Final Result [facility] [address] [place] [address], * Vancomycin, trough (12/30/2024 8:11 PM EDT) Only the most recent of2 resultswithin the time period is included. Vancomycin Trough 17.0 10.0 - 20.0 mcg/mL LAB CHEMISTRY METHOD 12/30/2024 8:54 PM EDT [facility] Blood Blood sample taken from central line / Unknown Long-term Catheter / Unknown 12/30/2024 8:11 PM EDT 12/30/2024 8:17 PM EDT us Nohemi Omalley MD LAB BLOOD ORDERABLES Final Resul t [facility] [address] [place] [address], [place] [phone] * Insert PICC line (12/30/2024 5:38 PM EDT) Narrative Jerilyn Francis RN - 12/30/2024 5:38 PM EDT Jerilyn Francis RN ? 12/30/2024 ??5:42 PM PICC Line Insertion Procedure Note Procedure: Insertion of 4F single lumen Bard PowerPICC Lot: [id number] Exp: 2025-08-27 Indications: ??Vancomycin until 01/24/2025 Procedure Details: Informed consent was obtained for the procedure. Risks of thrombus and infection were discussed. Pre-procedure checklist completed at bedside. Maximum sterile technique was used including antiseptics, cap, gloves, gown, hand hygiene, mask, and sheet. US guidance utilized, vein easily accessed and catheter advanced smoothly upon first attempt. Two wires intact and discarded. 1% Lidocaine 2 ml sc administered. 4F PICC inserted to the Right Brachial vein per hospital protocol. Flushes smoothly with good blood return. Findings: Catheter cut at 38 cm and inserted to 38 cm with 0 cm exposed. Mid upper arm circumference is 32 cm. ??There were no changes to vital signs. Catheter was flushed with 10 cc NS and sterile CVC dressing with Biopatch applied. Patient did tolerate procedure well. Recommendations: 3CG confirmation obtained: ??Tip in Cavoatrial junction/May use line PICC Brochure given to patient with teaching instruction. us Nkechi Lopes Martin DUGGAN IV THERAPY ORDERABLES Kimberlee de la cruz Result * ALLEN COMPLETE (12/30/2024 1:54 PM EDT) BSA 2.07 m2 CV PACS Aortic Sinus Valsalva 4.0 cm CV PACS Ascending Aorta 3.7 cm CV PACS Ascending Aorta Index 1.79 cm/m2 CV PACS Anatomical Region Laterality Modality X-Ray Angiograph y Addenda Addendum by Josue Gleason MD on 12/30/2024 4:06 PM EDT ?No cardiac valve vegetations noted. ?Left ventricle cavity size is normal. Left ventricular systolic function is in the normal range with an ejection fraction of 55-60%. ?No regional LV wall motion abnormalities noted. ?Right ventricular systolic function is normal. ?The Sinus of Valsalva is mildly dilated (4.0 cm). Left Ventricle Left ventricle cavity size is normal. Systolic function is normal with an ejection fraction of 55-60%. There are no regional LV wall motion abnormalities. Right Ventricle Systolic function is normal. Left Atrium There is no thrombus in the left atrial appendage. There is no mass in the left atrial appendage. Patent foramen ovale visualized with bidirectional shunting indicated by color Doppler. Right Atrium There is no thrombus in the right atrial cavity. There is no mass in the right atrial cavity. Mitral Valve The leaflets are mildly thickened. There is trace regurgitation. There is no evidence of mitral valve stenosis. Tricuspid Valve Tricuspid valve structure is normal. There is mild regurgitation. There is no evidence of tricuspid valve stenosis. Aortic Valve The aortic valve is trileaflet. There is trace regurgitation. There is no evidence of aortic valve stenosis. Pulmonic Valve There is trace pulmonic valve regurgitation. There is no evidence of pulmonic valve stenosis. Ascending Aorta The Sinus of Valsalva is mildly dilated (4.0 cm). Pericardium There is no pericardial effusion. Study Details Overall the study quality was adequate. A transesophogeal echo was performed using 3-D imaging and postprocessing performed during the procedure. The underlying ECG rhythm was sinus rhythm. The procedure, risks and alternatives were explained. Informed consent was obtained. The probe was inserted by the nursing assistant. There was no probe insertion difficulty. Topical medication administered: lidocaine gel. Moderate sedation was administered by anesthesia. The patient had no complications. Estimated blood loss: no blood loss. No specimens were collected. Nabil Anderson MD CV ECHO PROCEDURES Edited Resul t - Final * Transesophageal echo (12/30/2024 1:06 PM EDT) Narrative Josue Gleason MD - 12/30/2024 1:06 PM EDT Josue Gleason MD ? 12/30/2024 ??1:08 PM Transesophageal echo Date/Time: 12/30/2024 1:06 PM Performed by: Josue Gleason MD Authorized by: Josue Gleason MD ?? Consent: ??Consent obtained: ??Written ??Consent given by: ??Patient ??Risks, benefits, and alternatives were discussed: yes ?Risks discussed: ??Bleeding [facility] protocol: ??Procedure explained and questions answered to patient or proxy's satisfaction: yes ?Imaging studies available: yes ?Patient identity confirmed: ??Verbally with patient Indications: ??Indications: ??Bacteremia Sedation: ??Sedation type: ??Deep Procedure specific details: ?? After informed consent time out was performed. Sedation per anesthesia. After adequate sedation the ALLEN probe was passed by me without difficulty. Images were obtained. No endocarditis seen on the cardiac valves. Full ALLEN report to follow. Post-procedure details: ??Procedure completion: ??Tolerated well, no immediate complications Josue Gleason MD IN CLINIC/BEDSIDE ORDERAB LES Final Result * (ABNORMAL) Urinalysis with reflex microscopic and culture (12/30/2024 5:16 AM EDT) Specific [place] Urine 1.014 1.003 - 1.030 LAB URINALYSIS - AUTOMATED METHOD 12/30/2024 7:42 AM EDT [facility] pH, Urine 6.5 5.0 - 8.0 pH LAB URINALYSIS - AUTOMATED METHOD 12/30/2024 7:42 AM [facility] Leukocytes, Urine Negative Negative LAB URINALYSIS - AUTOMATED METHOD 12/30/2024 7:42 AM [facility] Nitrite, Urine Negative Negative LAB URINALYSIS - AUTOMATED METHOD 12/30/2024 7:42 AM [facility] Protein, Urine 300(A) <=Trace mg/dL LAB URINALYSIS - AUTOMATED METHOD 12/30/2024 7:42 AM [facility] Glucose, Urine 500(A) Negative mg/dL LAB URINALYSIS - AUTOMATED METHOD 12/30/2024 7:42 AM [facility] Ketones, Urine Negative Negative mg/dL LAB URINALYSIS - AUTOMATED METHOD 12/30/2024 7:42 AM [facility] Urobilinogen, Urine 0.2 0.2 - 1.0 mg/dL LAB URINALYSIS - AUTOMATED METHOD 12/30/2024 7:42 AM [facility] Bilirubin, Urine Negative Negative LAB URINALYSIS - AUTOMATED METHOD 12/30/2024 7:42 AM [facility] Blood, Urine Negative Negative LAB URINALYSIS - AUTOMATED METHOD 12/30/2024 7:42 AM [facility] RBC, Urine 3.1 0 - 4 /HPF LAB URINALYSIS - AUTOMATED METHOD 12/30/2024 7:42 AM [facility] WBC, Urine 1.0 0 - 4 /HPF LAB URINALYSIS - AUTOMATED METHOD 12/30/2024 7:42 AM [facility] Squamous Epithelial, Urine 22 0 - 60 /LPF LAB URINALYSIS - AUTOMATED METHOD 12/30/2024 7:42 AM [facility] Bacteria, Urine Negative Negative /HPF LAB URINALYSIS - AUTOMATED METHOD 12/30/2024 7:42 AM [facility] Hyaline Casts, Urine 2.0 0 - 3 /LPF LAB URINALYSIS - AUTOMATED METHOD 12/30/2024 7:42 AM EDT [facility] Urine Urine specimen obtained by clean catch procedure / Unknown Non-blood Collection / Unknown 12/30/2024 5:16 AM EDT 12/30/2024 6:53 AM EDT us Nohemi Omalley MD LAB URINE ORDERABLES Final Resul t Performing Organization Address [facility]/ZIP Co de Phone Number [facility] [address] [place] [address], [place] [phone] * Bowen urine culture tube (12/30/2024 5:16 AM EDT) Extra Tube Hold for add-ons. 12/30/2024 8:01 AM EDT [facility] Comment:Auto resulted. Urine Urine specimen obtained by clean catch procedure / Unknown Non-blood Collection / Unknown 12/30/2024 5:16 AM EDT 12/30/2024 6:53 AM EDT us Nohemi Omalley MD LAB URINE ORDERABLES Final Resul t Performing Organization Address [facility] Co de Phone Number [facility] [address] [place] [address], [place] [phone] * CT Chest/Abdomen/Pelvis wo Contrast (12/29/2024 9:21 PM EDT) Anatomical Region Laterality Modality Body Computed Tomogra phy 12/29/2024 10:1 4 PM EDT Impressions 12/29/2024 10:14 PM EDT There is bilateral perinephric fat stranding concerning for UTIs. No kidney stone or hydronephrosis. Colonic diverticulosis with no evidence of acute diverticulitis. Enlarged left pelvic lymph nodes. 8.6 mm nodule of the left lower lobe. CT chest follow-up in 3 months is recommended to confirm resolution as indicated. Additional findings as above. Fleischner Society 2017 Guidelines for incidentally detected indeterminate nodules in persons 35 years of age or older. Single Solid Nodules: 5 mm or smaller nodules need no follow-up in low risk, and [address] follow-up is optional in high risk patients. 6-8 mm nodules have optional [address] follow-up in low risk, and 6-[address] follow-up followed by 18-[address] follow-up if no change in high risk patients. 9 mm or larger nodules should consider CT, PET/CT, or biopsy at 3 months regardless of patient risk. Multiple Solid Nodules: 5 mm or smaller nodules need no follow-up in low risk, and [address] follow-up is optional in high risk patients. 6-8 mm nodules need 3-[address] follow-up followed by an optional 18-[address] follow-up regardless of patient risk. 9 mm or larger nodules should consider 3-[address] follow-up. For low risk 18-24 month follow-up is optional, whereas for high risk it is needed. Single Ground Glass Nodules: 5 mm or smaller nodules need no followup 6 mm and larger nodules need CT at 6-12 months to confirm persistence, then CT every 2 years until 5 years Single Subsolid Nodules: 5 mm or smaller nodules need no followup 6 mm and larger nodules need CT at 3-6 months to confirm persistence. If no change and solid component /T/lt;6 mm, then CT every year until 5 years Multiple Ground Glass or Subsolid Nodules: 5 mm or smaller nodules need CT at 3-6 months. If stable, optional CT at 2 and 4 years. 6 mm or larger nodules need CT at 3-6 months. Subsequent management based on most suspicious nodule This document has been electronically signed by: Hetal Pino MD on 12/29/2024 22:14:42 Narrative 12/29/2024 10:14 PM EDT INDICATION: MRSA bacteremia CT chest, abdomen and pelvis without contrast Comparison: None Findings: Limited examination without contrast. The heart size is normal. Severe Atherosclerosis calcification of the coronary arteries. The visualized thyroid and mediastinum are unremarkable. Trace bilateral pleural effusion. 8.1 x 8.6 mm nodule of the left lower lobe series 3, image 94. 5.3 mm pleural-based nodular density of the left lower lobe image 148. Fat containing left diaphragmatic hernia. Unremarkable gallbladder and solid organs. No urolithiasis. There is bilateral perinephric fat stranding. No bowel obstruction, pneumoperitoneum, or pneumatosis. Colonic diverticulosis. Atherosclerosis calcification of the aorta. Small retroperitoneal lymph nodes. There are enlarged left pelvic lymph nodes: External iliac lymph node 1.5 x 3.7 series 4, image 224; left inguinal lymph node 1.7 x 2.6 cm image 264. Pelvic contents unremarkable. Normal appendix. No ascites. Small fat containing right inguinal hernia. The bones are intact. Procedure Note Hetal Pino MD - 12/29/2024 INDICATION: MRSA bacteremia CT chest, abdomen and pelvis without contrast Comparison: None Findings: Limited examination without contrast. The heart size is normal. Severe Atherosclerosis calcification of the coronary arteries. The visualized thyroid and mediastinum are unremarkable. Trace bilateral pleural effusion. 8.1 x 8.6 mm nodule of the left lower lobe series 3, image 94. 5.3 mm pleural-based nodular density of theleft lower lobe image 148. Fat containing left diaphragmatic hernia. Unremarkable gallbladder and solid organs. No urolithiasis. There is bilateral perinephric fat stranding. No bowel obstruction, pneumoperitoneum, or pneumatosis. Colonic diverticulosis. Atherosclerosis calcification of the aorta. Small retroperitoneal lymph nodes. There are enlarged left pelvic lymph nodes: External iliac lymph node 1.5 x 3.7 series 4, image 224; left inguinal lymph node 1.7 x 2.6cm image 264. Pelvic contents unremarkable. Normal appendix. No ascites. Small fat containing right inguinal hernia. The bones are intact. IMPRESSION: There is bilateral perinephric fat stranding concerning for UTIs. No kidney stone or hydronephrosis. Colonic diverticulosis with no evidence of acute diverticulitis. Enlarged left pelvic lymph nodes. 8.6 mm nodule of the left lower lobe. CT chest follow-up in 3 months is recommended to confirm resolution as indicated. Additional findings as above. Fleischner Society 2017 Guidelines for incidentally detectedindeterminate nodules in persons 35 years of age or older. Single Solid Nodules: 5 mm or smaller nodules need no follow-up in low risk, and [address] follow-up is optional in high risk patients. 6-8 mm nodules have optional [address] follow-up in low risk, and 6-[address] follow-up followed by 18-[address] follow-up if no change in high risk patients. 9 mm or larger nodules should consider CT, PET/CT, or biopsy at 3 months regardless of patient risk. Multiple Solid Nodules: 5 mm or smaller nodules need no follow-up in low risk, and [address] follow-up is optional in high risk patients. 6-8 mm nodules need 3-[address] follow-up followed by an optional 18-[address] follow-up regardless of patient risk. 9 mm or larger nodules should consider 3-[address] follow-up. For low risk 18-24 month follow-up is optional, whereas for high risk it isneeded. Single Ground Glass Nodules: 5 mm or smaller nodules need no followup 6 mm and larger nodules need CT at 6-12 months to confirm persistence, then CT every 2 years until 5 years Single Subsolid Nodules: 5 mm or smaller nodules need no followup 6 mm and larger nodules need CT at 3-6 months to confirm persistence. If no change and solid component /T/lt;6 mm, then CT every year until 5years Multiple Ground Glass or Subsolid Nodules: 5 mm or smaller nodules need CT at 3-6 months. If stable, optional CT at2 and 4 years. 6 mm or larger nodules need CT at 3-6 months. Subsequent managementbased on most suspicious nodule This document has been electronically signed by: Hetal Pino MD on 12/29/2024 22:14:42 Nkechi DUGGAN [facility] [place]ED[place] Final Re sult * (ABNORMAL) Culture wound deep (12/29/2024 4:55 PM EDT) Only the most recent of2 resultswithin the time period is included. Culture, Wound Light Growth Methicillin-Resista nt Staphylococcus aureus(A) RENE 01/01/2025 10:20 AM EDT [facility] Comment: The organism value for this result has been updated. These results have been appended to the previously preliminary verified report. Edited result: Previously reported as Staphylococcus aureus on 12/31/2024 at 1038 EDT. Gram Stain Result No polymorphonuclear leukocytes, No epithelial cells, and No organisms noted 01/01/2025 10:20 AM EDT [facility] Swab Structure of left foot / Unknown 12/29/2024 4:55 PM EDT 12/29/2024 5:32 PM EDT Narrative Organism Antibiotic Method Susceptibility Methicillin-Resistant Staphylococcus aureus Benzylpenicillin RENE >=0.5 ug/ml: Resistant Methicillin-Resistant Staphylococcus aureus Oxacillin RENE >=4 ug/ml: Resistant Methicillin-Resistant Staphylococcus aureus Gentamicin RENE <=0.5 ug/ml: Susceptible Methicillin-Resistant Staphylococcus aureus Ciprofloxacin RENE >=8 ug/ml: Resistant Methicillin-Resistant Staphylococcus aureus Levofloxacin RENE >=8 ug/ml: Resistant Methicillin-Resistant Staphylococcus aureus Erythromycin RENE >=8 ug/ml: Resistant Methicillin-Resistant Staphylococcus aureus Clindamycin RENE <=0.25 ug/ml: Susceptible Methicillin-Resistant Staphylococcus aureus Linezolid RENE 2 ug/ml: Susceptible Methicillin-Resistant Staphylococcus aureus Vancomycin RENE 1 ug/ml: Susceptible Methicillin-Resistant Staphylococcus aureus Tetracycline RENE <=1 ug/ml: Susceptible Methicillin-Resistant Staphylococcus aureus Rifampin RENE <=0.5 ug/ml: Susceptible Methicillin-Resistant Staphylococcus aureus Trimethoprim/Sulfamethoxazo le RENE >=320 ug/ml: Resistant Miguel A Villegas DPM LAB MICROBIOLOGY - GENERAL ORDERABLES Final Result [facility] [address] [place] [address], * ECG 12 lead (12/29/2024 12:54 PM EDT) Ventricular Rate ECG 88 BPM GEMUSE Atrial Rate 88 BPM GEMUSE P-R Interval 204 ms GEMUSE QRS Duration 82 ms GEMUSE Q-T Interval 380 ms GEMUSE QTc 459 ms GEMUSE P Wave [place] 45 degrees GEMUSE R [place] -28 degrees GEMUSE T [place] 91 degrees GEMUSE ECG Interpretation Normal sinus rhythm Nonspecific ST and T wave abnormality Abnormal ECG When compared with ECG of 19-APR-2024 09:41, No significant change was found Confirmed by Romie PINO YUFENG ([id number]) on 12/29/2024 7:41:58 PM GEMUSE 12/29/2024 12:5 4 PM EDT 12/29/2024 7:41 PM EDT us Nohemi Omalley MD ECG ORDERABLES Final Result GEMUSE * (ABNORMAL) TRANSTHORACIC ECHOCARDIOGRAM (TTE) COMPLETE (12/29/2024 9:23 AM EDT) BSA 2.07 m2 CV PACS Left Atrium Minor [place] 6.3 cm CV PACS Left Atrium Major [place] 5.7 cm CV PACS LA Area Sys (A2C) 26 cm2 CV PACS LA Area Sys (A4C) 19 cm2 CV PACS LA Volume (BP) 69 mL CV PACS RA Area 14.5 cm2 CV PACS RA 2D Volume 33 mL CV PACS Ascending Aorta 3.7 cm CV PACS IVSD 1.3(A) 0.6 - 1.0 cm CV PACS LVIDD 4.4 4.2 - 5.8 cm CV PACS LVIDS 3.4 2.5 - 4.0 cm CV PACS LVOT Diameter 2.1 cm CV PACS LVPWD 1.3(A) 0.6 - 1.0 cm CV PACS MV E' Tissue Velocity Lateral 12 cm/s CV PACS MV E' Tissue Velocity Septal 5 cm/s CV PACS GLS -15.6 % CV PACS LVOT Area 3.5 cm2 CV PACS E Wave Deceleration Time 183 119 - 242 ms CV PACS MV Peak A [place]lyss[place] 1.48 m/s CV PACS MV Peak E [place] 1.60 m/s CV PACS PV Acceleration Time 120 ms CV PACS RV S' 9 cm/s CV PACS TAPSE 12 mm CV PACS TR Peak Velocity 2.84 m/s CV PACS TR Peak Gradient 32 mmHg CV PACS E/E' Ratio Septal 32 CV PACS E/E' Ratio Averaged 23 CV PACS Relative Wall Thickness ratio 0.59 CV PACS FS 23 % CV PACS LV Mass 2D 215 g CV PACS Ascending Aorta Index 1.76 cm/m2 CV PACS RA 2D Volume Index 16 mL/m2 CV PACS LVIDD Index 2.10 cm/m2 CV PACS LVIDS Index 1.62 cm/m2 CV PACS E/A Ratio 1.1 CV PACS E/E' Ratio Lateral 13 CV PACS LA Volume Index (BP) 33 mL/m2 CV PACS LV Mass Index 2D 102 g/m2 CV PACS Right Ventricular Peak Systolic Pressure 35 mmHg CV PACS Est. RA Pressure 3 mmHg CV PACS Aortic Root 4.6 cm CV PACS Aortic Root Index 2.19 cm/m2 CV PACS Anatomical Region Laterality Modality Ultrasound Narrative 12/29/2024 11:30 AM EDT ?Left??Ventricle: There is mild concentric hypertrophy. Systolic function is low normal with an ejection fraction of 50-55%. LV global longitudal strain is reduced. Global longitudinal strain is -15.6%. There are no regional LV wall motion abnormalities. There is Grade II (moderate) diastolic dysfunction. ?Right??Ventricle: Right ventricle cavity appears normal. Systolic function is mildly reduced. ?Mitral??Valve: There is mild regurgitation. ?Pulmonic??Valve: There is moderate pulmonic valve regurgitation. ?Tricuspid??Valve: There is mild tricuspid valve regurgitation. The right ventricular systolic pressure is mildly elevated. Estimated RA pressure is 3 mmHg. The RVSP is estimated at 35 mmHg. ?Tricuspid valve: In some of the four-chamber views, there appears to be a very small linear mobile echodensity which may represent a a small vegetation at associated to the subvalvular apparatus of the tricuspid valve versus a torn cord. Consider further evaluation with a transesophageal echocardiogram if clinically indicated. ?Aorta: The aortic root is moderately dilated (4.6 cm; aortic root index 2.2 cm/m??). ??The ascending aorta is normal in size. Left Ventricle Left ventricle cavity size is normal. False tendon noted near the LV apex. There is mild concentric hypertrophy. Systolic function is low normal with an ejection fraction of 50-55%. LV global longitudal strain is reduced. Global longitudinal strain is -15.6%. There are no regional LV wall motion abnormalities. There is Grade II (moderate) diastolic dysfunction. Right Ventricle Right ventricle cavity appears normal. Systolic function is mildly reduced. Left Atrium Left atrium cavity size is normal. Right Atrium Right atrium cavity is normal. IVC/SVC RA pressures is estimated to be 3 mmHg (IVC diameter <21 mm and decreases >50% during inspiration). Mitral Valve The leaflets are mildly thickened. There is mild regurgitation. There is no evidence of mitral valve stenosis. Tricuspid Valve The leaflets exhibit normal excursion. There is mild regurgitation. There is no evidence of tricuspid valve stenosis. The right ventricular systolic pressure is mildly elevated. Estimated RA pressure is 3 mmHg. The RVSP is estimated at 35 mmHg. In some of the four-chamber views, there appears to be a very small linear mobile echodensity which may represent a a small vegetation at associated to the subvalvular apparatus of the tricuspid valve versus a torn cord. Consider further evaluation with a transesophageal echocardiogram if clinically indicated. Aortic Valve The aortic valve is trileaflet. There is trace regurgitation. There is no evidence of aortic valve stenosis. Pulmonic Valve Visualized portions of the pulmonic valve appear normal. There is moderate pulmonic valve regurgitation. There is no evidence of pulmonic valve stenosis. Ascending Aorta The aortic root is moderately dilated (4.6 cm; aortic root index 2.2 cm/m??). The ascending aorta is normal in size. Pericardium There is an anterior fat pad. There is no pericardial effusion. Study Details Overall the study quality was technically difficult. Additional technique includes myocardial strain. us Nkechi DUGGAN CV ECHO PROCEDURES Final R esult * Transfuse RBC (12/28/2024 2:44 PM EDT) us Nkechi DUGGAN BLOOD TRANSFUSION ORDERABL ES Final Result * Vitamin B12 and folate (12/28/2024 9:57 AM EDT) Vitamin B-12 628 250 - 900 pcg/mL LAB CHEMISTRY METHOD 12/28/2024 11:32 AM EDT [facility] Folate 11.7 2.8 - 17.0 ng/ml LAB CHEMISTRY METHOD 12/28/2024 11:32 AM EDT [facility] Blood Venous blood specimen / Unknown Venipuncture / Unknown 12/28/2024 9:57 AM EDT 12/28/2024 10:23 AM EDT us Nkechi DUGGAN LAB BLOOD ORDERABLES Final Result Performing Organization Address [facility]/ZIP Co de Phone Number [facility] [address] [place] [address], * (ABNORMAL) Iron and TIBC (12/28/2024 9:57 AM EDT) Iron 18(L) 50 - 160 mcg/dL LAB CHEMISTRY METHOD 12/28/2024 11:09 AM EDT [facility] TIBC 184(L) 250 - 450 mcg/dL LAB CHEMISTRY METHOD 12/28/2024 11:09 AM EDT [facility] Iron Saturation 10(L) 20 - 50 % LAB CHEMISTRY METHOD 12/28/2024 11:09 AM EDT [facility] Blood Venous blood specimen / Unknown Venipuncture / Unknown 12/28/2024 9:57 AM EDT 12/28/2024 10:23 AM EDT us Nkechi Salazar [place] LAB BLOOD ORDERABLES Final Result Performing Organization Address [facility] de Phone Number [facility] [address] [place] [address], [place] [phone] * Type and screen (12/28/2024 9:57 AM EDT) ABO Group A 12/28/2024 11:13 AM EDT [facility] Rh Type Positive 12/28/2024 11:13 AM EDT [facility] Antibody Screen Negative 12/28/2024 11:13 AM EDT [facility] Blood Venous blood specimen / Unknown Venipuncture / Unknown 12/28/2024 9:57 AM EDT 12/28/2024 10:23 AM EDT Nkechi DUGGAN LAB BLOOD BANK TEST ORDERA BLES Final Result Performing Organization Address [facility]/ZIP Co de Phone Number [facility] [address] [place] [address], [place] [phone] * Ferritin (12/28/2024 9:57 AM EDT) [facility] Ferritin 76 26 - 388 ng/mL LAB CHEMISTRY METHOD 12/28/2024 11:09 AM EDT [facility] Blood Venous blood specimen / Unknown Venipuncture / Unknown 12/28/2024 9:57 AM EDT 12/28/2024 10:23 AM EDT Nkechi DUGGAN LAB BLOOD ORDERABLES Final Result Performing Organization Address [facility]/ZIP Co de Phone Number [facility] [address] [place] [address], [place] [phone] * Prepare RBC: 1 Units (12/28/2024 9:03 AM EDT) [facility] Product Code [id number] 12/28/2024 12:10 PM EDT [facility] Unit Number [id number] 12/29/19 12:10 PM EDT [facility] Crossmatch Compatible 12/28/2024 11:15 AM EDT [facility] Dispense Status Transfused 12/28/2024 12:10 PM EDT [facility] Unit ABO Rh APOS 12/28/2024 12:10 PM EDT [facility] Unit Expiration Date Time [id number] 12/28/2024 12:10 PM EDT [facility] Unit Blood Type 6200 12/28/2024 12:10 PM EDT [facility] Blood Venous blood specimen / Unknown 12/28/2024 9:03 AM EDT 12/28/2024 10:23 AM EDT us Nkechi DUGGAN BLOOD BANK PRODUCT ORDERAB LES Final Result Performing Organization Address [facility]/ZIP Co de Phone Number [facility] [address] [place] [address], [place] [phone] * Culture blood (12/28/2024 8:28 AM EDT) Only the most recent of4 resultswithin the time period is included. [facility] Culture, Blood No growth at 5 days 01/02/2025 9:01 AM EDT [facility] Blood Venous blood specimen / Unknown Venipuncture / Unknown 12/28/2024 8:28 AM EDT 12/28/2024 8:32 AM EDT us Nkechi DUGGAN LAB MICROBIOLOGY - GENERAL ORDERABLES Final Result Performing Organization Address [facility] de Phone Number [facility] [address] [place] [address], [place] [phone] * (ABNORMAL) Reticulocyte count (12/28/2024 8:28 AM EDT) Retic Ct Abs 0.030 0.030 - 0.090 M/mcL LAB HEMETOLOGY METHOD 12/28/2024 11:05 AM EDT [facility] Retic Ct Pct 1.2 0.7 - 1.7 % LAB HEMETOLOGY METHOD 12/28/2024 11:05 AM T [facility] Immature Retic Fract 20.1(H) 2.3 - 15.9 % LAB HEMETOLOGY METHOD 12/28/2024 11:05 AM EDT [facility] Reticulocyte Hemoglobin 27.4(L) >29.0 pcg LAB HEMETOLOGY METHOD 12/28/2024 11:05 AM EDT [facility] Blood Venous blood specimen / Unknown Venipuncture / Unknown 12/28/2024 8:28 AM EDT 12/28/2024 8:33 AM EDT Nkechi DUGGAN LAB BLOOD ORDERABLES Final Result Performing Organization Address [facility] Co de Phone Number [facility] [address] [place] [address], * (ABNORMAL) MRSA molecular study (12/28/2024 8:02 AM EDT) Pathologist [facility] MRSA Screen PCR Detected (A) Not Detected LAB MICROBIOLOGY METHOD 12/28/2024 10:04 AM EDT [facility] Swab Both anterior nares / Unknown Non-blood Collection / Unknown 12/28/2024 8:02 AM EDT 12/28/2024 8:44 AM EDT Otto Levine MD LAB MICROBIOLOGY - GEN ERAL ORDERABLES Final Result Performing Organization Address [facility] de Phone Number [facility] [address] [place] [address], [place] [phone] * Tissue exam (12/27/2024 4:35 PM EDT) Pathologist [facility] Final Diagnosis A. Cuboid margin, left foot, excision: - An aggregate of adipose tissue and minute fragments of necrotic are present in association with blood and fibrinous debris containing admixed neutrophils. (See note.) - More intact-appearing fragments of bone and adipose tissue include a minute focus of hematopoietic marrow but no acute inflammation. Note: There is no acute inflammation seen in the intact tissue fragments. The significance of the acute inflammation admixed with blood and fibrinous debris is not entirely clear. The findings are not considered diagnostic of osteomyelitis. B. Calcaneus clean margin, left foot, biopsy: - Bone and soft tissue with associated blood. - Morphologic features diagnostic of osteomyelitis are not identified. 12/30/2024 10:44 AM EDT [facility] Gross Description A. Foot, Left, cuboid clean margin: Labeled foot L, left cubo . Received in formalin is a 2.8 x 2.1 x 0.8 cm markedly disrupted portion of ireland-yellow cauterized tissue and trabecular bone fragments which is sectioned and entirely submitted into cassette following decalcification, multiple pieces each. B. Foot, Left, calcaneous clean margin: Labeled foot L, left calc . Received in formalin are two irregular ireland-white bone fragments, each measuring approximately 0.8 x 0.3 x 0.2 cm, with attached soft red clotted blood. The specimen is submitted in toto following decalcification, in one cassette, two pieces. JOHN 12/30/2024 10:44 AM EDT [facility] Disclaimer Unless otherwise specified, all tissue is 10% NB formalin fixed and paraffin embedded. 12/30/2024 10:44 AM EDT [facility] Bone Structure of left foot / Unknown 12/27/2024 4:35 PM EDT 12/28/2024 5:13 AM EDT Specimen from bone (specimen) Structure of left foot / Unknown 12/27/2024 4:35 PM EDT 12/28/2024 5:13 AM EDT Miguel A Villegas DP LAB PATHOLOGY ORDERABLES Fi nal Result [facility] [address] [place] [address], * TH AN LMA(NO CHARGE) (12/27/2024 4:20 PM EDT) Narrative Karon Roldan CRNA - 12/27/2024 4:20 PM EDT Karon Roldan CRNA ? 12/27/2024 ??4:20 PM General Information and Staff Patient location during procedure: OR Performed by: Karon Roldan CRNA Authorized by: Nereyda Fall MD ?? Intubation Urgency: elective Final Airway Details Number of attempts at approach: 1Final airway type: LMA Indications and Patient Condition Indications for airway management: anesthesia Sedation level: Yes Preoxygenated: yes Soft Tissue Damage: No Dentition Unchanged: Yes us Nereyda Fall MD ANESTHESIA ORDERABLES Final Resu lt * MR Foot wo and w Contrast Left (12/27/2024 2:30 PM EDT) Anatomical Region Laterality Modality Lower Extremities, Foot Left Magnetic Resonance 12/27/2024 2:51 PM EDT Impressions 12/27/2024 3:25 PM EDT Inferomedial ulcer with fluid/phlegmon tracking from the ulcer into the plantar and medial soft tissues. ??There is osteomyelitis involving the cuboid. -------- FINAL REPORT -------- Dictated By: Jose Avalos Dictated Date: 12/27/2024 14:51 ET Assigned Physician: Jose Avalos Reviewed and Electronically Signed By: Jose Avalos Signed Date: 12/27/2024 15:25 ET Workstation ID: [id number] Transcribed By: Self Edit Transcribed Date: 12/27/2024 15:14 ET Narrative 12/27/2024 3:25 PM EDT HISTORY: ??Foot swelling, diabetic, osteomyelitis suspected, xray done COMPARISON: None TECHNIQUE: Exam performed on a 1.5 Fartun high-field MRI scanner. ??Axial T1 with fat suppression and STIR, coronal T1, T2* gradient echo and STIR, sagittal T1 and T2* gradient echo, followed by post-gadolinium axial T1 with fat suppression and coronal T1 sequences were obtained. FINDINGS: This patient is status post left TMA. ??There is a inferior medial full- thickness ulcer with fistulous tract noted in the plantar soft tissues suggesting abscess/phlegmon. ??There is also abnormal fluid/phlegmon tracking up the medial soft tissues. ??There is cortical erosion as well as marrow edema involving the cuboid compatible with osteomyelitis. Prominent Inferomedial Cellulitis. ??There is trace edema involving the articular surface of the calcaneus inferiorly which could represent reactive edema though early osteomyelitis in this location is not excluded. ??There is fluid along the plantar fascia. ??There are no acute fractures. ?? Procedure Note Jose Avalos MD - 12/27/2024 HISTORY: Foot swelling, diabetic, osteomyelitis suspected, xray done COMPARISON: None TECHNIQUE: Exam performed on a 1.5 Fartun high-field MRI scanner. Axial T1with fat suppression and STIR, coronal T1, T2* gradient echo and STIR,sagittal T1 and T2* gradient echo, followed by post-gadolinium axial T1with fat suppression and coronal T1 sequences were obtained. FINDINGS: This patient is status post left TMA. There is a inferior medialfull-thickness ulcer with fistulous tract noted in the plantar softtissues suggesting abscess/phlegmon. There is also abnormalfluid/phlegmon tracking up the medial soft tissues. There is corticalerosion as well as marrow edema involving the cuboid compatible withosteomyelitis. Prominent Inferomedial Cellulitis. There is trace edemainvolving the articular surface of the calcaneus inferiorly which couldrepresent reactive edema though early osteomyelitis in this location isnot excluded. There is fluid along the plantar fascia. There are noacute fractures. IMPRESSION: Inferomedial ulcer with fluid/phlegmon tracking from the ulcer into theplantar and medial soft tissues. There is osteomyelitis involving thecuboid. -------- FINAL REPORT -------- Dictated By: Jose Avalos Dictated Date: 12/27/2024 14:51 ET Assigned Physician: Jose Avalos Reviewed and Electronically Signed By: Jose Avalos Signed Date: 12/27/2024 15:25 ET Workstation ID: [id number] Transcribed By: Self Edit Transcribed Date: 12/27/2024 15:14 ET us Otto Levine MD IMG MRI PROCEDURES Fin al Result * Prothrombin time with INR (12/27/2024 6:24 AM EDT) Protime 12.5 10.6 - 13.9 sec LAB COAGULATION METHOD 12/27/2024 6:59 AM EDT [facility] INR 1.0 LAB COAGULATION METHOD 12/27/2024 6:59 AM EDT [facility] Blood Venous blood specimen / Unknown Venipuncture / Unknown 12/27/2024 6:24 AM EDT 12/27/2024 6:25 AM EDT us Otto Levine MD LAB BLOOD ORDERABLES F inal Result Performing Organization Address City/[facility]/ZIP Co de Phone Number [facility] [address] [place] [address], [place] [phone] * Lavender tube (12/27/2024 4:44 AM EDT) Extra Tube Hold for add-ons. 12/27/2024 7:01 AM EDT [facility] Comment:Auto resulted. Blood Venous blood specimen / Unknown Venipuncture / Unknown 12/27/2024 4:44 AM EDT 12/27/2024 5:40 AM EDT us Otto Levine MD LAB BLOOD ORDERABLES F inal Result Performing Organization Address [facility]/ZIP Co de Phone Number [facility] [address] [place] [address], [place] [phone] * Phosphorus (12/27/2024 4:44 AM EDT) Phosphorus 4.0 2.5 - 4.5 mg/dL LAB CHEMISTRY METHOD 12/27/2024 6:21 AM EDT [facility] Blood Venous blood specimen / Unknown Venipuncture / Unknown 12/27/2024 4:44 AM EDT 12/27/2024 5:26 AM EDT us Otto Levine MD LAB BLOOD ORDERABLES F inal Result Performing Organization Address City/[facility]/ZIP Co de Phone Number [facility] [address] [place] [address], [place] [phone] * (ABNORMAL) Hepatic function panel (12/27/2024 4:44 AM EDT) Total Protein 6.0 6.0 - 8.0 g/dL LAB CHEMISTRY METHOD 12/27/2024 6:25 AM EDT [facility] Albumin 1.7(L) 3.2 - 5.0 g/dL LAB CHEMISTRY METHOD 12/27/2024 6:25 AM EDT [facility] Total Bilirubin 0.2 0.0 - 1.4 mg/dL LAB CHEMISTRY METHOD 12/27/2024 6:25 AM [facility] Bilirubin, Direct <0.1 0.0 - 0.3 mg/dL LAB CHEMISTRY METHOD 12/27/2024 6:25 AM [facility] Bilirubin, Indirect LAB CHEMISTRY METHOD 12/27/2024 6:25 AM T [facility] Comment:Unable to calculate Indirect Bilirubin. ALT (SGPT) 16 10 - 60 unit/L LAB CHEMISTRY METHOD 12/27/2024 6:25 AM [facility] AST (SGOT) 11 10 - 42 unit/L LAB CHEMISTRY METHOD 12/27/2024 6:25 AM [facility] Alkaline Phosphatase 102 42 - 121 unit/L LAB CHEMISTRY METHOD 12/27/2024 6:25 AM [facility] Blood Venous blood specimen / Unknown Venipuncture / Unknown 12/27/2024 4:44 AM EDT 12/27/2024 5:26 AM EDT us Otto Levine MD LAB BLOOD ORDERABLES F inal Result [facility] [address] [place] [address], [place] [phone] * XR Foot 3+ Views Left (12/26/2024 11:33 PM EDT) Anatomical Region Laterality Modality Lower Extremities, Foot Left Radiogra [facility] 12/27/2024 8:20 AM EDT Impressions 12/27/2024 8:24 AM EDT Post amputation. ??Bony irregularity could be postsurgical but cannot exclude osteomyelitis. ??MRI could be performed for further evaluation. -------- FINAL REPORT -------- Dictated By: Jose Luis Quarles Dictated Date: 12/27/2024 08:20 ET Assigned Physician: Jose Luis Quarles Reviewed and Electronically Signed By: Jose Luis Quarles Signed Date: 12/27/2024 08:24 ET Workstation ID: [id number] Transcribed By: Self Edit Transcribed Date: 12/27/2024 08:20 ET Narrative 12/27/2024 8:24 AM EDT PROCEDURE: Radiographs of the left foot. HISTORY: wound. COMPARISON: None. FINDINGS: Bones are diffusely demineralized. ??Status post amputation, with the navicular bone and a portion of the cuboid and medial cuneiform remaining. ??Bony irregularity at the amputation site and several areas may be postsurgical but osteomyelitis is difficult to exclude. ??There is a small plantar calcaneal spur. ??Scattered soft tissue calcifications. ??Soft tissue lucencies suggesting soft tissue wounds. Procedure Note Jose Luis Quarles MD - 12/27/2024 PROCEDURE: Radiographs of the left foot. HISTORY: wound. COMPARISON: None. FINDINGS: Bones are diffusely demineralized. Status post amputation, with thenavicular bone and a portion of the cuboid and medial cuneiform remaining.Bony irregularity at the amputation site and several areas may bepostsurgical but osteomyelitis is difficult to exclude. There is a smallplantar calcaneal spur. Scattered soft tissue calcifications. Softtissue lucencies suggesting soft tissue wounds. IMPRESSION: Post amputation. Bony irregularity could be postsurgical but cannotexclude osteomyelitis. MRI could be performed for further evaluation. -------- FINAL REPORT -------- Dictated By: Jose Luis Quarles Dictated Date: 12/27/2024 08:20 ET Assigned Physician: Jose Luis Quarles Reviewed and Electronically Signed By: Jose Luis Quarles Signed Date: 12/27/2024 08:24 ET Workstation ID: [id number] Transcribed By: Self Edit Transcribed Date: 12/27/2024 08:20 ET us Otto Levine MD IMG XR PROCEDURES Kimberlee l Result * XR Chest 2 Views (12/26/2024 11:33 PM EDT) Anatomical Region Laterality Modality Body Radiographic Christen ging 12/27/2024 8:01 AM EDT Impressions 12/27/2024 8:01 AM EDT Normal chest radiographs. -------- FINAL REPORT -------- Dictated By: Jose Luis Quarles Dictated Date: 12/27/2024 08:01 ET Assigned Physician: Jose Luis Quarles Reviewed and Electronically Signed By: Jose Luis Quarles Signed Date: 12/27/2024 08:01 ET Workstation ID: [id number] Transcribed By: Self Edit Transcribed Date: 12/27/2024 08:01 ET Narrative 12/27/2024 8:01 AM EDT PROCEDURE: PA and lateral radiographs of the chest. HISTORY: dyspnea. COMPARISON: 11/19/2023. FINDINGS: The heart, mediastinum, lungs, pleural spaces, and bony thorax are normal. Procedure Note Jose Luis Quarles MD - 12/27/2024 PROCEDURE: PA and lateral radiographs of the chest. HISTORY: dyspnea. COMPARISON: 11/19/2023. FINDINGS: The heart, mediastinum, lungs, pleural spaces, and bony thorax arenormal. IMPRESSION: Normal chest radiographs. -------- FINAL REPORT -------- Dictated By: Jose Luis Quarles Dictated Date: 12/27/2024 08:01 ET Assigned Physician: Jose Luis Quarles Reviewed and Electronically Signed By: Jose Luis Quarles Signed Date: 12/27/2024 08:01 ET Workstation ID: [id number] Transcribed By: Self Edit Transcribed Date: 12/27/2024 08:01 ET us Palmira DUGGAN IMG XR PROCEDURES Final Resul t * Lactate, with reflex (12/26/2024 10:40 PM EDT) [facility] LACTIC ACID 0.8 0.4 - 2.0 mmol/L LAB CHEMISTRY METHOD 12/26/2024 11:16 PM EDT [facility] Blood Venous blood specimen / Unknown Venipuncture / Unknown 12/26/2024 10:40 PM EDT 12/26/2024 10:49 PM EDT us Palmira DUGGAN LAB BLOOD ORDERABLES Final Re sult Performing Organization Address [facility] Co de Phone Number [facility] [address] [place] [address], [place] [phone] * (ABNORMAL) Blood culture pathogens molecular study (12/26/2024 10:40 PM EDT) [facility] Staphylococcus aureus Detected (A) Not Detected LAB MICROBIOLOGY METHOD 12/27/2024 7:55 PM EDT [facility] mecA/C and MREJ (MRSA) Detected (A) Not Detected LAB MICROBIOLOGY METHOD 12/27/2024 7:55 PM EDT [facility] Comment:mecA/C and MREJ Gene Detected: Indicates Methicillin Resistant Staphylococcus. Blood Venous blood specimen / Unknown Venipuncture / Unknown 12/26/2024 10:40 PM EDT 12/26/2024 10:48 PM EDT us Palmira DUGGAN LAB MICROBIOLOGY - GENERAL OR DERABLES Final Result Performing Organization Address [facility]/ZIP Co de Phone Number [facility] [address] [place] [address], [place] [phone] * [id number], RSV, Influenza A and B qualitative RT-PCR (12/26/2024 10:31 PM EDT) Influenza A PCR Not Detected Not Detected LAB MICROBIOLOGY METHOD 12/26/2024 11:32 PM EDT [facility] Influenza B PCR Not Detected Not Detected LAB MICROBIOLOGY METHOD 12/26/2024 11:32 PM EDT [facility] RSV PCR Not Detected Not Detected LAB MICROBIOLOGY METHOD 12/26/2024 11:32 PM EDT [facility] SARS COV-2 Not Detected Not Detected LAB MICROBIOLOGY METHOD 12/26/2024 11:32 PM EDT [facility] Swab Both anterior nares / Unknown Non-blood Collection / Unknown 12/26/2024 10:31 PM EDT 12/26/2024 10:48 PM EDT [facility] - 12/26/2024 11:32 PM EDT Disclaimer: ??Testing was performed using the [employer] GeneXpert Xpress SARS-CoV-2 _Flu_RSV PLUS PCR assay. ??The manner in which this information is used to guide patient care is the responsibility of the healthcare provider. ??Results should be correlated with the clinical history, epidemiological data, and other data available to the clinician evaluating the patient. ??Negative results do not preclude infection. ??This test has been authorized by the FDA under an Emergency Use Authorization (EUA). ??This test is only authorized for the duration of time the declaration that circumstances exist justifying the authorization of the emergency use of in vitro diagnostic tests for detection of SARS-CoV-2 virus and/or diagnosis of COVID-19 infection under section 564 (b) (1) of the Act, 21 U.S.C 360bbb-3 (b) (1), unless the authorization is terminated or revoked sooner. ?? Reference Range: Not Detected Fact sheet for Healthcare providers can be found at https://www.fda.gov/media/840823/download. ?? Fact sheet for Healthcare patients can be found at https://www.fda.gov/media/295035/download. Palmira DUGGAN LAB MICROBIOLOGY - GENERAL OR DERABLES Final Result [facility] [address] [place] [address], * (ABNORMAL) Culture wound with gram stain (12/26/2024 10:30 PM EDT) Culture, Wound Methicillin-Resistan t Staphylococcus aureus(A) RENE 12/29/2024 9:20 AM EDT [facility] Comment: Positive for PBP2a - indicative of MRSA The organism value for this result has been updated. These results have been appended to the previously preliminary verified report. Gram Stain Result Many Polymorphonuclear leukocytes(A) 12/29/2024 9:20 AM EDT [facility] Gram Stain Result No epithelial cells seen(A) 12/29/2024 9:20 AM EDT [facility] Gram Stain Result Many Gram positive cocci in clusters(A) 12/29/2024 9:20 AM EDT [facility] Drainage Structure of left foot / Unknown 12/26/2024 10:30 PM EDT 12/26/2024 10:48 PM EDT Narrative Organism Antibiotic Method Susceptibility Methicillin-Resistant Staphylococcus aureus Benzylpenicillin RENE >=0.5 ug/ml: Resistant Methicillin-Resistant Staphylococcus aureus Oxacillin RENE >=4 ug/ml: Resistant Methicillin-Resistant Staphylococcus aureus Gentamicin RENE <=0.5 ug/ml: Susceptible Methicillin-Resistant Staphylococcus aureus Ciprofloxacin RENE >=8 ug/ml: Resistant Methicillin-Resistant Staphylococcus aureus Levofloxacin RENE >=8 ug/ml: Resistant Methicillin-Resistant Staphylococcus aureus Erythromycin RENE >=8 ug/ml: Resistant Methicillin-Resistant Staphylococcus aureus Clindamycin RENE <=0.25 ug/ml: Susceptible Methicillin-Resistant Staphylococcus aureus Linezolid RENE 2 ug/ml: Susceptible Methicillin-Resistant Staphylococcus aureus Vancomycin RENE 1 ug/ml: Susceptible Methicillin-Resistant Staphylococcus aureus Tetracycline RENE 2 ug/ml: Susceptible Methicillin-Resistant Staphylococcus aureus Rifampin RENE <=0.5 ug/ml: Susceptible Methicillin-Resistant Staphylococcus aureus Trimethoprim/Sulfamethoxazo le RENE >=320 ug/ml: Resistant Palmira DUGGAN LAB MICROBIOLOGY - GENERAL OR DERABLES Final Result Performing Organization Address [facility]/ZIP Co de Phone Number [facility] LAB [address] [place] [address], [place] [phone] * (ABNORMAL) Sedimentation rate, automated (12/26/2024 7:21 PM EDT) [facility] Sed Rate 67(H) 0 - 20 mm/hr LAB HEMETOLOGY METHOD 12/26/2024 10:31 PM EDT [facility] LAB Blood Venous blood specimen / Unknown Venipuncture / Unknown 12/26/2024 7:21 PM EDT 12/26/2024 8:05 PM EDT Palmira DUGGAN LAB BLOOD ORDERABLES Final Re sult Performing Organization Address [facility] Co de Phone Number [facility] LAB [address] [place] [address], [place] [phone] * (ABNORMAL) C-reactive protein (12/26/2024 7:21 PM EDT) [facility] C-Reactive Protein 9.30(H) <=0.50 mg/dL LAB CHEMISTRY METHOD 12/26/2024 10:36 PM EDT [facility] LAB Blood Venous blood specimen / Unknown Venipuncture / Unknown 12/26/2024 7:21 PM EDT 12/26/2024 8:05 PM EDT Palmira DUGGNA LAB BLOOD ORDERABLES Final Re sult Performing Organization Address [facility] Co de Phone Number [facility] LAB [address] [place] [address], [place] [phone] * (ABNORMAL) Hemoglobin A1c (05/17/2021) [facility] Hemoglobin A1C 8.7(A) <=6.5 % Blood Venous blood specimen / Unknown Result [facility] Provider LAB BLOOD ORDERABLES Kimberlee l Result * (ABNORMAL) Lipid panel (05/17/2021) LDL/HDL Ratio 3 0 - 4 Triglycerides 76 0 - 150 mg/dL Cholesterol 115 0 - 200 mg/dL HDL 38(A) >=40 mg/dL LDL Cholesterol 62 0 - 100 mg/dL Blood Venous blood specimen / Unknown Result [facility] Historical Provider LAB BLOOD ORDERABLES Kimberlee l Result * HM Urine Albumin Creatinine Ratio (02/12/2021) HM Urine Albumin Creatinine Ratio Abstracted Result [facility] Provider HEALTH MAINTENANCE Final Result from Last 3 Months or Most Recently Relevant to Health Maintenance Additional Health Concerns Infection Onset Date Last Indicated MRSA 12/26/2024 12/29/2024 Insurance [facility] [employer] Member Subscriber Plan / Payer (Ef fective 2023-Present) Name:Irving Barry Relation to Subscriber:Self Name:Irving Barry Payer ID:[id number] Group ID:[id number] Type:Not on file Address: [facility] [address] [address] Advance Directives Documents on File Type Date Recorded Patient 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 Expl anation Health Care Decision (hx) 04/26/2024 HE ALTH CARE PROXY Health Care Decision (hx) 11/04/2023 AD KOENIG DIRECTIVE Health Care Decision (hx) 11/04/2023 AD KOENIG DIRECTIVE Health Care Decision (hx) 11/04/2023 AD KOENIG DIRECTIVE Health Care Decision (hx) 11/04/2023 AD KOENIG DIRECTIVE Health Care Decision (hx) 11/04/2023 AD KOENIG DIRECTIVE Health Care Decision (hx) 11/04/2023 AD KOENIG DIRECTIVE * Full Code - Confirmed (Latest Code Status on File) Date Activated Date Inactivated Comments 12/27/2024 1:18 AM 12/31/2024 6:04 PM This code stat us was ascertained in the following way: Code status discussion: discussion with patient To update the patient's code status, place a code status order. Do not modify or discontinue any currently active code status orders. Healthcare Agents on File Name Relationship Healthcare Agent [facility] p Communication Gricelda Guardado Spouse Health Care Agent Care Teams Research Food Technologist Relationship Specialty Start Date End Date Fredy Adair PA [address] [place] [address] PCP - General Internal Medicine 10/09/21
--- OUTSIDE RECORDS SUMMARY | 2025-01-06 11:58 | XMS_ITS | Clinical Summary ---
Author Organization [facility] Address [address] [place] [address] Phone Care Team Providers Care Bottom Sprayer Name Role Phone Fredy Adair Primary Care Provider Medications omeprazole (PriLOSEC) [address] capsule [...] Due Date Last Done Comments Pneumococcal Vaccine: Peds ( 0 to 5 Years) and At-Risk Patients (6 to 49 Years) (1 of 2 - PCV) 1978 Hepatitis B Vaccine (1 of 3 - 19+ 3-dose series) 12/12 Colorectal Cancer Screening: Annual FOBT 2021 Colorectal Cancer Screening: Colonoscopy 2021 Colorectal Cancer Screening: Sigmoidoscopy 2021 Diabetes: Hemoglobin A1C 07/01/2023 Diabetes: Ophthalmology Exam 07/01/2023 Diabetes: Pedal Pulse Checked 07/01/2023 Diabetes: Sensory Foot Exam 07/01/2023 Diabetes: Visual Foot Exam 07/01/2023 Influenza Vaccine (Season Ended) 2025 Insurance * Guarantor: Irving Barry Account Type Relation to Patient Date of Phone Billing Address Personal/Family Self 1970 [address] [phone] [facility] ([id number]) [address] [phone] [facility] ([id number]) [address] [phone] Care Teams Bottom Sprayer Relationship Specialty Start Date End Date Fredy Adair PA [address] [place] [address], [address] [place] [address] PCP - General Physician Diet Technician Registered 03/13/23
--- OUTSIDE RECORDS SUMMARY | 2025-01-06 11:59 | XMS_ITS | Encounter Summary ---
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, with necrosis of muscle (HCC) (Primary Dx);Cellulitis of right foot;Acute hematogenous osteomyelitis of right foot (HCC);Ulcer of midfoot, right, with necrosis of muscle Encounter Details Date Type Department Care Team (Late st Contact Info) Description 01/05/2025 9:00 AM EDT Office Visit Orthopedic Surgery - [place] [address] [phone] Miguel A Villegas, DPM [address] [address] History of amputation of left foot through metatarsal bone (CMS/HCC V24, CMS/[facility] V28) (Primary Dx); Cellulitis of left foot; Surgical wound dehiscence, initial encounter; Ulcer of heel and midfoot, left, with fat layer exposed (CMS/HCC V24, CMS/HCC V28) Social History Tobacco Use Types Packs/Day Years [...] Orientation Straight 12/26/2024 10 :30 PM EDT documented as of this encounter Last Filed Vital Signs Vital Sign Reading Time Taken Comments Blood Pressure - - Pulse - - Temperature - - Respiratory Rate - - Oxygen Saturation - - Inhaled Oxygen Concentration - - Weight 95.7 kg (211 lb) 01/05/2025 9:04 AM EDT Height 170.2 cm (5' 7.01 ) 01/05/2025 9:04 AM ED T Body Mass Index 33.04 01/05/2025 9:04 AM EDT documented in this encounter Functional Status * Are you deaf or do you have serious difficulty hearing? Answer Date of Assessment Author No 12/26/2024 10:01 PM EDT Ailyn Guadalupe RN * Are you blind or do you have serious difficulty seeing, even when wearing glasses? Answer Date of Assessment Author No 12/26/2024 10:01 PM EDT Ailyn Guadalupe RN * Do you have serious difficulty walking or climbing stairs? Answer Date of Assessment Author No 12/26/2024 10:01 PM EDT Ailyn Guadalupe RN * Do you have serious difficulty dressing or bathing? Answer Date of Assessment Author No 12/26/2024 10:01 PM EDT Ailyn Guadalupe RN * Because of a physical, mental, or emotional condition, do you have serious difficulty doing errandsalone such as visiting the doctor? Answer Date of Assessment Author No 12/26/2024 10:01 PM EDT Ailyn Guadalupe RN documented as of this encounter Mental Status * Because of a physical, mental, or emotional condition, do you have serious difficulty concentrating, remembering, or making decisions? (5 years old or older) Answer Entry Date Author No 12/26/2024 10:01 PM EDT Ailyn Guadalupe RN documented in this encounter Ordered Prescriptions Prescription Sig Dispense Quantity Refills Last Filled Start Date End Date oxyCODONE (ROXICODONE) 5 mg immediate release tabletIndications: Ulcer of heel and midfoot, left, with fat layer exposed (CMS/[facility] V24, CMS/[facility] V28) Take 1 tablet (5 mg total) by mouth every 6 (six) hours if needed for severe pain for up to 7 days. Max Daily Amount: 20 mg 28 tablet 01/05/2025 01/12/2025 documented in this encounter Progress Notes * Miguel A Villegas DPM - 01/05/2025 9:00 AM EDTAddended by: MIGUEL A VILLEGAS on: 01/05/2025 01:06 PM Modules accepted: Orders * Miguel A Villegas DPM - 01/05/2025 9:00 AM EDT Referring MD: [place] Last PCP visit: 09/10/2024 IDENTIFIER: @TITLE@ Asha is a 54 y.o. year old male who presents for consultation. CC: Left foot wound HPI: 54-year-old diabetic male returns office for left foot wound. Patient was admitted to the hospital underwent incision and drainage and secondary wound closure. Patient is stayed off of the foot and done well. Patient notes the swelling and redness has gone down. Patient is dressing the foot every other day. Patient denies any fever nausea vomiting shortness of breath. Patient notes that he has been using the PICC line and getting his antibiotics daily. Patient is here for evaluation treatment ROS: GENERAL: Pt denies nausea, fever, vomiting, [...] Iron (Fe) deficiency anemia Peripheral vascular disease (CMS/HCC V24) Tobacco use disorder Diabetes mellitus type 2 with peripheral artery disease (CMS/HCC V24, CMS/HCC V28) Foot ulcer due to secondary DM (CMS/HCC V24, CMS/[facility] V28) CHF (congestive heart failure) ([facility] V24, [facility] V28) Type 2 diabetes mellitus with circulatory disorder ([facility] [place], [facility] V28) Vascular problem Chronic renal impairment, stage 3 (moderate) ([facility] [place], [facility] V28) Type 2 diabetes mellitus with left diabetic foot infection ([facility] V24, [facility] V28) SOCIAL HISTORY: Social History Tobacco Use Smoking status: Every Day Current packs/day: 0.00 Average packs/day: 1 pack/day for 31.0 years (31.0 ttl pk-yrs) Types: Cigarettes Start date: 09/28/1989 Last attempt to quit: 09/28/2020 Years since quittin.2 Smokeless tobacco: Never Substance Use Topics Alcohol use: Not Currently ACTIVE MEDICATIONS: Outpatient Medications Marked as Taking for the 01/05/25 encounter (Office Visit) with Miguel A Villegas DPM Medication Sig Dispense Refill amLODIPine (NORVASC) 10 mg tablet Take 1 tablet by mouth daily. apixaban (Eliquis) 5 mg tablet Take 0.5 tablets (2.5 mg total) by mouth 2 (two) times a day. aspirin 81 mg EC tablet Take 1 tablet by mouth daily. ferrous sulfate 325 mg (65 mg iron) EC tablet TAKE 1 TABLET BY MOUTH EVERY OTHER DAY flash glucose sensor (FreeStyle Jayla 2 Sensor) kit USE DIRECTED gabapentin (NEURONTIN) 300 mg capsule Take 1 capsule (300 mg total) by mouth at bedtime. hydrALAZINE (APRESOLINE) 25 mg tablet Take 1 tablet (25 mg total) by mouth 3 (three) times a day. 90 each 0 isosorbide mononitrate (IMDUR) 30 mg 24 hr tablet Take 1 tablet (30 mg total) by mouth 1 (one) timeeach day. Do not crush or chew. States he is still taking it metoprolol succinate (TOPROL-XL) 50 mg 24 hr tablet Take 1 tablet (50 mg total) by mouth 1 (one) time each day. Do not crush or chew. omeprazole (PriLOSEC) [address] capsule TAKE 1 CAPSULE BY MOUTH DAILY AT 630AM pen needle, diabetic 32 gauge x 5/32 needle Use with insulin pens 4 times daily before meals. Trulicity 1.5 mg/0.5 mL pen injector injection Inject 1.5 mg into the skin once a week. - Subcutaneous vancomycin (VANCOCIN) IVPB (premix) Infuse 400 mL (2,000 mg total) into a venous catheter 1 (one) time each day at the same time for 24 days. zolpidem (AMBIEN) 5 mg tablet TAKE 1 TABLET BY MOUTH EVERY DAY AT BEDTIME NEEDED FOR SLEEP FOR 7DAYS ALLERGIES: @ALL@ PHYSICAL EXAM: Height 1.702 m (67.01 ), weight 95.7 kg (211 lb). PODIATRIC EXAMINATION: GENERAL: Patient appears well nourished, with NAD. VASCULAR: Dorsalis pedis pulses are 1/4 bilaterally and Posterior tibial pulses are 1/4 bilaterally. Capillary filling time within normal limits the digits. No pallor on elevation or rubor on dependency. Positive hair growth. No varicosities. Denies rest pain or claudication pain. NEUROLOGICAL: Sharp/dull sensation diminished, protective sensation diminished on [place]. Multipleperipheral neuropathies bilateral feet ORTHOPEDIC: Good muscle strength 5/5 of all flexors and extensors. Dorsi flexion of ankle ,10 degrees, plantar flexion WNL. No muscle atrophy. TMA to the left foot with midfoot breach from Charcot neuropathy. DERMATOLOGICAL:.Overall swelling and discoloration to the left foot has reduced. Sutures are in place without dehiscence. There is an area from previous wound debridement that remains open with slight serous drainage. No purulence no malodor no deep tracking. BIOMECHANICS: Antalgic gait IMPRESSION: 1. History of amputation of left foot through metatarsal bone ([facility] V24, [facility] V28) 2. Cellulitis of left foot 3. Surgical wound dehiscence, initial encounter 4. Ulcer of heel and midfoot, left, with fat layer exposed (CMS/HCC V24, CMS/HCC V28) PLAN: Pt was seen and examined, history reviewed. Patient was educated on the importance of keeping tight glucose control as he is going through a tremendous amount of healing at this point. The incision line is 12 cm and she understands that the entire area needs to heal correctly to prevent future infection Patient's foot was dressed with Betadine Adaptic 4 x 4 gauze ABD Kerlix and Fidel bandage. Patient was instructed to remain nonweightbearing to the left lower extremity. Patient understands that any pressure to the area may cause some dehiscence. Patient understands that his sutures may be removed during his next visit. Patient encouraged to continue with proper scheduling of his antibiotic regimen. Patient required debridement to the opening at the medial aspect of the left foot wound as described below Open wound selective debridement of devitalized soft tissue, fibrin, epidermis, dermis, thru skin and subcutaneous tissue, first 20 sq cm or less, using sterile sharp dissection #15 scalpel blade of the left foot medial wound. Pt. deferred anesthesia. . Devitalized tissue was not sent to pathology. Notes that he is having some increased pain in the area of opening in the medial aspect of the foot. Patient was given a prescription for pain medication oxycodone 5 mg to be taken every 6 hours as needed severe pain Miguel A Villegas DPM documented in this encounter Plan of Treatment Upcoming Encounters Date Type Department Care Team (Late st Contact Info) Description 01/12/2025 9:30 AM EDT Office Visit Orthopedic Surgery - [place] [address] [phone] Miguel A Villegas DPM [address] [address] 01/25/2025 3:30 PM EDT Office Visit Infectious Disease - [place] 175 [facility] [address] [place] [address] Jeny Light MD 175 [facility] [address] [place] [address] documented as of this encounter Visit Diagnoses Diagnosis History of amputation of left foot through metatarsal bone (CMS/[facility] V24, CMS/[facility] V28)- Primary Cellulitis of left foot Surgical wound dehiscence, initial encounter Ulcer of heel and midfoot, left, with fat layer exposed (CMS/[facility] V24, CMS/HCC V28) documented in this encounter Additional Health Concerns Infection Onset Date Last Indicated Resolved Time MRSA 12/26/2024 12/29/2024 documented as of this encounter Care Teams Montessori Toddler Teacher Relationship Specialty Start Date End Date Fredy Adair PA [address] [place] [address] PCP - General Internal Medicine 10/09/21 documented as of this encounter
--- OUTSIDE RECORDS SUMMARY | 2025-01-06 11:59 | XMS_ITS | Encounter Summary ---
Author Organization [employer] [place] [address] Care Team Providers Care Packaging Materials Inspector Name Role Phone Fredy Adair Primary Care Provider [phone]- [phone] Encounter Details Date Type Department Care Team (Late st Contact Info) Description 01/04/[address] [facility] - Main Lab [address] [place] [address] Nkechi Salazar PA [address] [place] [address] Essential (primary) hypertension Social History Tobacco Use Types Packs/Day Years [...] PM EDT documented as of this encounter Functional Status * Are you deaf or do you have serious difficulty hearing? Answer Date of Assessment Author No 12/26/2024 10:01 PM EDT Aliyn Guadalupe RN * Are you blind or [...] Ailyn Guadalupe RN documented in this encounter Plan of Treatment Upcoming Encounters Date Type Department Care Team (Late st Contact Info) Description 01/12/2025 9:30 AM EDT Office Visit Orthopedic Surgery - [place] [address] [phone] Miguel A Villegas DPM [address] [address] 01/25/2025 3:30 PM EDT Office Visit Infectious Disease - [place] 175 [facility] [address] [place] [address] Jeny Light MD 175 [facility] [address] [place] [address] documented as of this encounter Procedures Procedure Name Priority Date/Time Associated Diagnosis Comments CBC WITH AUTO DIFFERENTIAL Routine 01/04/2025 3:45 PM EDT Essential (primary) hypertension RED - PLAIN Routine 01/04/2025 3:45 PM EDT Essential (primary) hypertension CBC AND DIFFERENTIAL Routine 01/04/2025 3:45 PM EDT Essential (primary) hypertension documented in this encounter Results * Red tube (01/04/2025 3:45 PM EDT) [facility] Extra Tube Hold for add-ons. 01/04/2025 7:01 PM EDT [facility] Comment:Auto resulted. Blood Venous blood specimen / Unknown 01/04/2025 3:45 PM EDT 01/04/2025 5:51 PM EDT Nkechi DUGGAN LAB BLOOD ORDERABLES Final Result [facility] [address] [place] [address], [place] [phone] * (ABNORMAL) CBC auto differential (01/04/2025 3:45 PM EDT) [facility] WBC 9.7 4.8 - 10.8 K/mcL LAB HEMETOLOGY METHOD 01/04/2025 6:41 PM EDT [facility] RBC 2.90(L) 4.50 - 5.50 M/mcL LAB HEMETOLOGY METHOD 01/04/2025 6:41 PM EDT [facility] Hemoglobin 8.1(L) 13.5 - 17.5 g/dL LAB HEMETOLOGY METHOD 01/04/2025 6:41 PM EDT [facility] Hematocrit 26.4(L) 42.0 - 54.0 % LAB HEMETOLOGY METHOD 01/04/2025 6:41 PM EDT [facility] MCV 89.8 79.0 - 98.0 FL LAB HEMETOLOGY METHOD 01/04/2025 6:41 PM EDT [facility] MCH 27.6 27.0 - 32.0 pcg LAB HEMETOLOGY METHOD 01/04/2025 6:41 PM [facility] MCHC 30.7(L) 32.0 - 37.0 g/dL LAB HEMETOLOGY METHOD 01/04/2025 6:41 PM [facility] RDW 15.7(H) 11.0 - 15.0 % LAB HEMETOLOGY METHOD 01/04/2025 6:41 PM [facility] Platelets 608(H) 130 - 400 K/mcL LAB HEMETOLOGY METHOD 01/04/2025 6:41 PM [facility] MPV 9.7 7.0 - 11.0 FL LAB HEMETOLOGY METHOD 01/04/2025 6:41 PM [facility] NRBC 0.0 <1.0 % LAB HEMETOLOGY METHOD 01/04/2025 6:41 PM [facility] NRBC Absolute 0.00 <0.10 K/mcL LAB HEMETOLOGY METHOD 01/04/2025 6:41 PM [facility] Neutrophils Relative 73.6 % LAB HEMETOLOGY METHOD 01/04/2025 6:41 PM [facility] Lymphocytes Relative 14.2 % LAB HEMETOLOGY METHOD 01/04/2025 6:41 PM [facility] Monocytes Relative 5.9 % LAB HEMETOLOGY METHOD 01/04/2025 6:41 PM [facility] Eosinophils Relative 4.6 % LAB HEMETOLOGY METHOD 01/04/2025 6:41 PM [facility] Basophils Relative 1.2 % LAB HEMETOLOGY METHOD 01/04/2025 6:41 PM [facility] Immature Granulocytes Relative 0.5 % LAB HEMETOLOGY METHOD 01/04/2025 6:41 PM [facility] Neutrophils Absolute 7.11(H) 1.50 - 7.00 K/mcL LAB HEMETOLOGY METHOD 01/04/2025 6:41 PM EDT [facility] Lymphocytes Absolute 1.37 1.00 - 5.00 K/mcL LAB HEMETOLOGY METHOD 01/04/2025 6:41 PM EDT [facility] Monocytes Absolute 0.57 0.20 - 1.00 K/mcL LAB HEMETOLOGY METHOD 01/04/2025 6:41 PM EDT [facility] Eosinophils Absolute 0.44 0.00 - 0.50 K/[facility] LAB HEMETOLOGY METHOD 01/04/2025 6:41 PM EDT [facility] Basophils Absolute 0.12 0.00 - 0.20 K/mcL LAB HEMETOLOGY METHOD 01/04/2025 6:41 PM EDT [facility] Immature Granulocytes Absolute 0.05(H) 0.00 - 0.03 K/[facility] LAB HEMETOLOGY METHOD 01/04/2025 6:41 PM EDT [facility] Blood Venous blood specimen / Unknown 01/04/2025 3:45 PM EDT 01/04/2025 5:51 PM EDT Nkechi DUGGAN LAB BLOOD ORDERABLES Final Result [facility] [address] [place] [address], documented in this encounter Visit Diagnoses Diagnosis Essential (primary) hypertension Unspecified essential hypertension documented in this encounter Additional Health Concerns Infection Onset Date Last Indicated Resolved Time MRSA 12/26/2024 12/29/2024 documented as of this encounter Care Teams Packaging Materials Inspector Relationship Specialty Start Date End Date Fredy Adair PA [address] [place] [phone] PCP - General Internal Medicine 10/09/21 documented as of this encounter
== END 2025-01-06 12:00 | disposition home or self-care (01) ==
LOC: HO.HMCH 11:00
PROVIDERS: PCP Internal Medicine; Visit Provider Physician Assistant Medical
DX: Z09 Encounter for follow-up examination after completed treatment for conditions other than malignant neoplasm (principal); S88.111D Complete traumatic amputation at level between knee and ankle, right lower leg, subsequent encounter; E11.59 Type 2 diabetes mellitus with other circulatory complications; N18.9 Chronic kidney disease, unspecified; S98.912A Complete traumatic amputation of left foot, level unspecified, initial encounter; M86.272 Subacute osteomyelitis, left ankle and foot; R91.8 Other nonspecific abnormal finding of lung field

== ENCOUNTER → 2025-01-06 10:59 | Outpatient (BNVA) | payer OTHER, SELFPAY | PROVIDERS: PCP Internal Medicine; Visit Provider Physician Assistant Medical | DX: Z09 Encounter for follow-up examination after completed treatment for conditions other than malignant neoplasm (principal); E11.59 Type 2 diabetes mellitus with other circulatory complications; N18.9 Chronic kidney disease, unspecified; M86.372 Chronic multifocal osteomyelitis, left ankle and foot; R91.8 Other nonspecific abnormal finding of lung field | CPT/HCPCS: 99212 ==

== ENCOUNTER 2025-01-26 08:39 | Outpatient (AMB) | payer OTHER, SELFPAY ==
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
[2025-01-26 08:48] VITALS: BP 130/80; PULSE 87; TEMP 36.2; O2SAT 98; BMI 32.9
--- OUTSIDE RECORDS SUMMARY | 2025-01-26 08:57 | XMS_ITS | Clinical Summary ---
Author Organization [facility] Address [address] [place] [address] Phone Care Team Providers Care Sack Keeper Name Role Phone Fredy Adair Primary Care Provider [phone] Medications omeprazole (PriLOSEC) [address] capsule [...] Health Maintenance Due Date Last Done Comments Hepatitis B Vaccine (1 of 3 - 19+ 3-dose series) 12/12 Pneumococcal Vaccine: 50+ Years (1 of 2 - PCV) 992 Colorectal Cancer Screening: Annual FOBT 2021 Colorectal Cancer Screening: Colonoscopy 2021 Colorectal Cancer Screening: Sigmoidoscopy 2021 Diabetes: Hemoglobin A1C 07/01/2023 Diabetes: Ophthalmology Exam 07/01/2023 Diabetes: Pedal Pulse Checked 07/01/2023 Diabetes: Sensory Foot Exam 07/01/2023 Diabetes: Visual Foot Exam 07/01/2023 Influenza Vaccine (Season Ended) 2025 Insurance * Guarantor: Irving Barry Account Type Relation to Patient Date of Phone Billing Address Personal/Family Self [address] ([id number]) [place] [address] [facility] ([id number]) [place] [address] Care Teams Sack Keeper Relationship Specialty Start Date End Date Fredy Adair PA [address] [place] [address], [address] [place] [address] PCP - General Physician Line Patroller 03/13/23
--- OUTSIDE RECORDS SUMMARY | 2025-01-26 08:57 | XMS_ITS | Encounter Summary ---
Author Organization [place] [address] Care Team Providers Care Finisher Machine Name Role Phone Fredy Adair Primary Care Provider [phone] Encounter Details Date Type Department Care Team (Late st Contact Info) Description 01/13/2025 Lab Requisition [facility] - Main Lab [address] [facility] [place] [place] [address] Jeny Light MD 175 [facility] [address] [place] [address] Encounter for therapeutic drug level monitoring Social History Tobacco Use Types Packs/Day Years [...] Care Team (Late st Contact Info) Description 02/03/2025 9:15 AM EDT Office Visit Orthopedic Surgery - [place] [address] [address] Miguel A Villegas, DPM [address] [address] documented as of this encounter Procedures Procedure Name Priority Date/Time Associated Diagnosis Comments SST - GOLD Routine 01/13/2025 3:45 PM EDT Encounter for therapeutic drug level monitoring SST - GOLD Routine 01/13/2025 3:45 PM EDT Encounter for therapeutic drug level monitoring VANCOMYCIN, TROUGH Routine 01/13/2025 3: 45 PM EDT Encounter for therapeutic drug level monitoring BASIC METABOLIC PANEL Routine 01/13/2025 3:45 PM EDT Encounter for therapeutic drug level monitoring documented in this encounter Results * SST tube (01/13/2025 3:45 PM EDT) Extra Tube Hold for add-ons. 01/13/2025 6:01 PM EDT [facility] Comment:Auto resulted. Blood Venous blood specimen / Unknown 01/13/2025 3:45 PM EDT 01/13/2025 4:34 PM EDT us Jeny Light MD LAB BLOOD ORDERABLES Final Resul t Performing Organization Address [facility]/ZIP Co de Phone Number [facility] [address] [place] [address], [place] [phone] * SST tube (01/13/2025 3:45 PM EDT) Extra Tube Hold for add-ons. 01/13/2025 6:01 PM EDT [facility] Comment:Auto resulted. Blood Venous blood specimen / Unknown 01/13/2025 3:45 PM EDT 01/13/2025 4:34 PM EDT us Jeny Light MD LAB BLOOD ORDERABLES Final Resul t Performing Organization Address [facility]/ZIP Co de Phone Number [facility] [address] [place] [address], [place] [phone] * (ABNORMAL) Basic metabolic panel (01/13/2025 3:45 PM EDT) Sodium 137 133 - 145 mmol/L LAB CHEMISTRY METHOD 01/13/2025 5:13 PM EDT [facility] Potassium 3.9 3.5 - 5.5 mmol/L LAB CHEMISTRY METHOD 01/13/2025 5:13 PM EDT [facility] Chloride 109 96 - 110 mmol/L LAB CHEMISTRY METHOD 01/13/2025 5:13 PM EDT [facility] CO2 21 21 - 32 mmol/L LAB CHEMISTRY METHOD 01/13/2025 5:13 PM EDT [facility] Anion Gap 7 3 - 11 LAB CHEMISTRY METHOD 01/13/2025 5:13 PM EDT [facility] Glucose 180(H) 70 - 100 mg/dL LAB CHEMISTRY METHOD 01/13/2025 5:13 PM EDT [facility] BUN 21 5 - 25 mg/dL LAB CHEMISTRY METHOD 01/13/2025 5:13 PM EDT [facility] Creatinine 1.47(H) 0.70 - 1.30 mg/dL LAB CHEMISTRY METHOD 01/13/2025 5:13 PM EDT [facility] eGFR 57(L) >=60 mL/min/1. 73m2 LAB CHEMISTRY METHOD 01/13/2025 5:13 PM EDT [facility] Comment:Calculation based on the??Chronic Kidney Disease Epidemiology Collaboration (CKD-EPI) equation refit??without adjustment for race. BUN/Creatinine Ratio 14.3 LAB CHEMISTRY METHOD 01/13/2025 5:13 PM T [facility] Calcium 8.4(L) 8.5 - 10.5 mg/dL LAB CHEMISTRY METHOD 01/13/2025 5:13 PM [facility] Blood Venous blood specimen / Unknown 01/13/2025 3:45 PM EDT 01/13/2025 4:33 PM EDT us Jeny Light MD LAB BLOOD ORDERABLES Final Resul t [facility] [address] [place] [address], * Vancomycin, trough (01/13/2025 3:45 PM EDT) Vancomycin Trough 18.0 10.0 - 20.0 mcg/mL LAB CHEMISTRY METHOD 01/13/2025 5:13 PM EDT [facility] Blood Venous blood specimen / Unknown 01/13/2025 3:45 PM EDT 01/13/2025 4:33 PM EDT us Jeny Light MD LAB BLOOD ORDERABLES Final Resul t [facility] [address] [place] [address], documented in this encounter Visit Diagnoses Diagnosis Encounter for therapeutic drug level monitoring documented in this encounter Additional Health Concerns Infection Onset Date Last Indicated Resolved Time MRSA 12/26/2024 12/29/2024 documented as of this encounter Care Teams Finisher Machine Relationship Specialty Start Date End Date Fredy Adair PA [address] [place] [address] PCP - General Internal Medicine 10/09/21 documented as of this encounter
--- OUTSIDE RECORDS SUMMARY | 2025-01-26 08:57 | XMS_ITS | Encounter Summary ---
Author Organization [place] [address] Care Team Providers Care Director Loss Prevention Name Role Phone Fredy Adair Primary Care Provider [phone] Encounter Details Date Type Department Care Team (Late st Contact Info) Description 01/06/2025 Lab Requisition [facility] - Main Lab [address] [facility] [place] [address] Jeny Light MD 175 [facility] [address] [place] [address] Encounter for therapeutic drug level monitoring Social [...] AM EDT Office Visit Orthopedic Surgery - [place] [address] [phone] Miguel A Villegas, DPMadhu [address] [address] documented as of this encounter Procedures Procedure Name Priority Date/Time Associated Diagnosis Comments SST - GOLD Routine 01/06/2025 4:15 PM EDT Encounter for therapeutic drug level monitoring VANCOMYCIN, TROUGH Routine 01/06/2025 4: 15 PM EDT Encounter for therapeutic drug level monitoring BASIC METABOLIC PANEL Routine 01/06/2025 4:15 PM EDT Encounter for therapeutic drug level monitoring documented in this encounter Results * SST tube (01/06/2025 4:15 PM EDT) Extra Tube Hold for add-ons. 01/06/2025 6:01 PM EDT [facility] Comment:Auto resulted. Blood Venous blood specimen / Unknown 01/06/2025 4:15 PM EDT 01/06/2025 4:49 PM EDT us Jeny Light MD LAB BLOOD ORDERABLES Final Resul t Performing Organization Address [facility]/ZIP Co de Phone Number [facility] [address] [place] [address], [place] [phone] * Vancomycin, trough (01/06/2025 4:15 PM EDT) [facility] Vancomycin Trough 19.1 10.0 - 20.0 mcg/mL LAB CHEMISTRY METHOD 01/06/2025 5:34 PM EDT [facility] Blood Venous blood specimen / Unknown 01/06/2025 4:15 PM EDT 01/06/2025 4:49 PM EDT us Jeny Light MD LAB BLOOD ORDERABLES Final Resul t Performing Organization Address [facility]/ZIP Co de Phone Number [facility] [address] [place] [address], [place] [phone] * (ABNORMAL) Basic metabolic panel (01/06/2025 4:15 PM EDT) Pathologist [facility] Sodium 140 133 - 145 mmol/L LAB CHEMISTRY METHOD 01/06/2025 5:33 PM EDT [facility] Potassium 4.1 3.5 - 5.5 mmol/L LAB CHEMISTRY METHOD 01/06/2025 5:33 PM EDT [facility] Chloride 111(H) 96 - 110 mmol/L LAB CHEMISTRY METHOD 01/06/2025 5:33 PM EDT [facility] CO2 21 21 - 32 mmol/L LAB CHEMISTRY METHOD 01/06/2025 5:33 PM EDT [facility] Anion Gap 8 3 - 11 LAB CHEMISTRY METHOD 01/06/2025 5:33 PM EDT [facility] Glucose 213(H) 70 - 100 mg/dL LAB CHEMISTRY METHOD 01/06/2025 5:33 PM EDT [facility] BUN 22 5 - 25 mg/dL LAB CHEMISTRY METHOD 01/06/2025 5:33 PM EDT [facility] Creatinine 1.62(H) 0.70 - 1.30 mg/dL LAB CHEMISTRY METHOD 01/06/2025 5:33 PM EDT [facility] eGFR 51(L) >=60 mL/min/1. 73m2 LAB CHEMISTRY METHOD 01/06/2025 5:33 PM EDT [facility] Comment:Calculation based on the??Chronic Kidney Disease Epidemiology Collaboration (CKD-EPI) equation refit??without adjustment for race. BUN/Creatinine Ratio 13.6 LAB CHEMISTRY METHOD 01/06/2025 5:33 PM EDT [facility] Calcium 8.8 8.5 - 10.5 mg/dL LAB CHEMISTRY METHOD 01/06/2025 5:33 PM EDT [facility] Blood Venous blood specimen / Unknown 01/06/2025 4:15 PM EDT 01/06/2025 4:49 PM EDT us Jeny Light MD LAB BLOOD ORDERABLES Final Resul t [facility] [address] [place] [address], documented in this encounter Visit Diagnoses Diagnosis Encounter for therapeutic drug level monitoring documented in this encounter Additional Health Concerns Infection Onset Date Last Indicated Resolved Time MRSA 12/26/2024 12/29/2024 documented as of this encounter Care Teams Director Loss Prevention Relationship Specialty Start Date End Date Fredy Adair PA [address] [place] [phone] PCP - General Internal Medicine 10/09/21 documented as of this encounter
--- OUTSIDE RECORDS SUMMARY | 2025-01-26 08:57 | XMS_ITS | Encounter Summary ---
Author Organization [place] [address] Care Team Providers Care Signals Intelligence Analysis Manager Name Role Phone Fredy Adair Primary Care Provider [phone] Encounter Details Date Type Department Care Team (Late st Contact Info) Description 01/20/[address] [facility] - Main Lab [address] [facility] [place] [address] Jeny Light MD 175 [facility] [address] [place] [address] Type 2 diabetes mellitus with foot ulcer (CODE) ([facility] V24, [facility] V28) Social History Tobacco Use Types Packs/Day [...] AM EDT Office Visit Orthopedic Surgery - [place] [phone] [address] Miguel A Villegas, DESHAWN [address] [address] documented as of this encounter Procedures Procedure Name Priority Date/Time Associated Diagnosis Comments SST - GOLD Routine 01/20/2025 2:30 PM EDT Type 2 diabetes mellitus with foot ulcer (CODE) (CMS/HCC V24, CMS/[facility] V28) CBC WITH AUTO DIFFERENTIAL Routine 01/20/2025 2:30 PM EDT Type 2 diabetes mellitus with foot ulcer (CODE) (CMS/HCC V24, CMS/HCC V28) CBC AND DIFFERENTIAL Routine 01/20/2025 2:30 PM EDT Type 2 diabetes mellitus with foot ulcer (CODE) ([facility] V24, [facility] V28) VANCOMYCIN, TROUGH Routine 01/20/2025 2: 30 PM EDT Type 2 diabetes mellitus with foot ulcer (CODE) ([facility] V24, [facility] V28) BASIC METABOLIC PANEL Routine 01/20/2025 2:30 PM EDT Type 2 diabetes mellitus with foot ulcer (CODE) ([facility] V24, [facility] V28) documented in this encounter Results * SST tube (01/20/2025 2:30 PM EDT) [facility] Extra Tube Hold for add-ons. 01/20/2025 4:01 PM EDT [facility] Comment:Auto resulted. Blood Venous blood specimen / Unknown 01/20/2025 2:30 PM EDT 01/20/2025 2:58 PM EDT us Jeny Light MD LAB BLOOD ORDERABLES Final Resul t [facility] [address] [place] [address], * (ABNORMAL) CBC auto differential (01/20/2025 2:30 PM EDT) [facility] WBC 9.7 4.8 - 10.8 K/mcL LAB HEMETOLOGY METHOD 01/20/2025 3:39 PM EDT [facility] RBC 2.80(L) 4.50 - 5.50 M/mcL LAB HEMETOLOGY METHOD 01/20/2025 3:39 PM EDT [facility] Hemoglobin 7.8(L) 13.5 - 17.5 g/dL LAB HEMETOLOGY METHOD 01/20/2025 3:39 PM EDT [facility] Hematocrit 24.1(L) 42.0 - 54.0 % LAB HEMETOLOGY METHOD 01/20/2025 3:39 PM EDT [facility] MCV 85.2 79.0 - 98.0 FL LAB [facility]OLOGY [facility] M[facility] 27.6 27.0 - 32.0 pcg LAB HEMETOLOGY METHOD 01/20/2025 3:39 PM [facility] MCHC 32.4 32.0 - 37.0 g/dL LAB HEMETOLOGY METHOD 01/20/2025 3:39 PM [facility] RDW 16.2(H) 11.0 - 15.0 % LAB HEMETOLOGY METHOD 01/20/2025 3:39 PM [facility] Platelets 360 130 - 400 K/mcL LAB HEMETOLOGY METHOD 01/20/2025 3:39 PM [facility] MPV 9.6 7.0 - 11.0 FL LAB HEMETOLOGY METHOD 01/20/2025 3:39 PM [facility] NRBC 0.0 <1.0 % LAB HEMETOLOGY METHOD 01/20/2025 3:39 PM [facility] NRBC Absolute 0.00 <0.10 K/mcL LAB HEMETOLOGY METHOD 01/20/2025 3:39 PM [facility] Neutrophils Relative 67.2 % LAB HEMETOLOGY METHOD 01/20/2025 3:39 PM [facility] Lymphocytes Relative 16.3 % LAB HEMETOLOGY METHOD 01/20/2025 3:39 PM [facility] Monocytes Relative 10.7 % LAB HEMETOLOGY METHOD 01/20/2025 3:39 PM [facility] Eosinophils Relative 4.7 % LAB HEMETOLOGY METHOD 01/20/2025 3:39 PM [facility] Basophils Relative 0.7 % LAB HEMETOLOGY METHOD 01/20/2025 3:39 PM EDT [facility] Immature Granulocytes Relative 0.4 % LAB HEMETOLOGY METHOD 01/20/2025 3:39 PM EDT [facility] Neutrophils Absolute 6.50 1.50 - 7.00 K/mcL LAB HEMETOLOGY METHOD 01/20/2025 3:39 PM EDT [facility] Lymphocytes Absolute 1.57 1.00 - 5.00 K/mcL LAB HEMETOLOGY METHOD 01/20/2025 3:39 PM EDT [facility] Monocytes Absolute 1.03(H) 0.20 - 1.00 K/mcL LAB HEMETOLOGY METHOD 01/20/2025 3:39 PM EDT [facility] Eosinophils Absolute 0.45 0.00 - 0.50 K/mcL LAB HEMETOLOGY METHOD 01/20/2025 3:39 PM EDT [facility] Basophils Absolute 0.07 0.00 - 0.20 K/mcL LAB HEMETOLOGY METHOD 01/20/2025 3:39 PM EDT [facility] Immature Granulocytes Absolute 0.04(H) 0.00 - 0.03 K/mcL LAB HEMETOLOGY METHOD 01/20/2025 3:39 PM EDT [facility] Blood Venous blood specimen / Unknown 01/20/2025 2:30 PM EDT 01/20/2025 2:58 PM EDT us Jeny Light MD LAB BLOOD ORDERABLES Final Resul t [facility] [address] [place] [address], * Vancomycin, trough (01/20/2025 2:30 PM EDT) Vancomycin Trough 17.2 10.0 - 20.0 mcg/mL LAB CHEMISTRY METHOD 01/20/2025 4:10 PM [facility] Blood Venous blood specimen / Unknown 01/20/2025 2:30 PM EDT 01/20/2025 2:58 PM EDT us Jeny Light MD LAB BLOOD ORDERABLES Final Resul t [facility] [address] [place] [address], [place] [phone] * (ABNORMAL) Basic metabolic panel (01/20/2025 2:30 PM EDT) Sodium 137 133 - 145 mmol/L LAB CHEMISTRY METHOD 01/20/2025 4:10 PM [facility] Potassium 4.0 3.5 - 5.5 mmol/L LAB CHEMISTRY METHOD 01/20/2025 4:10 PM [facility] Comment:Hemolysis present Chloride 106 96 - 110 mmol/L LAB CHEMISTRY METHOD 01/20/2025 4:10 PM [facility] CO2 22 21 - 32 mmol/L LAB CHEMISTRY METHOD 01/20/2025 4:10 PM [facility] Anion Gap 9 3 - 11 LAB CHEMISTRY METHOD 01/20/2025 4:10 PM [facility] Glucose 183(H) 70 - 100 mg/dL LAB CHEMISTRY METHOD 01/20/2025 4:10 PM [facility] BUN 20 5 - 25 mg/dL LAB CHEMISTRY METHOD 01/20/2025 4:10 PM [facility] Creatinine 1.67(H) 0.70 - 1.30 mg/dL LAB CHEMISTRY METHOD 01/20/2025 4:10 PM [facility] eGFR 49(L) >=60 mL/min/1. 73m2 LAB CHEMISTRY METHOD 01/20/2025 4:10 PM [facility] Comment:Calculation based on the??Chronic Kidney Disease Epidemiology Collaboration (CKD-EPI) equation refit??without adjustment for race. BUN/Creatinine Ratio 12.0 LAB CHEMISTRY METHOD 01/20/2025 4:10 PM EDT [facility] Calcium 8.6 8.5 - 10.5 mg/dL LAB CHEMISTRY METHOD 01/20/2025 4:10 PM EDT [facility] Blood Venous blood specimen / Unknown 01/20/2025 2:30 PM EDT 01/20/2025 2:58 PM EDT us Jeny Light MD LAB BLOOD ORDERABLES Final Resul t [facility] [address] [place] [address], [place] [phone] documented in this encounter Visit Diagnoses Diagnosis Type 2 diabetes mellitus with foot ulcer (CODE) ([facility] V24, [facility] V28) documented in this encounter Additional Health Concerns Infection Onset Date Last Indicated Resolved Time MRSA 12/26/2024 12/29/2024 documented as of this encounter Care Teams Signals Intelligence Analysis Manager Relationship Specialty Start Date End Date Fredy Adair PA [address] [place] [address] PCP - General Internal Medicine 10/09/21 documented as of this encounter
--- OUTSIDE RECORDS SUMMARY | 2025-01-26 08:58 | XMS_ITS | Encounter Summary ---
Author Organization [employer] [place] [address] Care Team Providers Care Cashier Greeter Name Role Phone Fredy Adair Primary Care Provider [phone]- [phone] Encounter Details Date Type Department Care Team (Late st Contact Info) Description 01/04/2025 Lab Requisition [facility] - Main Lab [address] [place] [address] Nkechi Salazar PA [address] [place] [address] Essential (primary) hypertension Social History Tobacco Use [...] AM EDT Office Visit Orthopedic Surgery - [place] [address] [address] Miguel A Villegas, DPM [address] [address] documented as of this encounter Procedures Procedure [...] Final Result [facility] [address] [place] [address], * (ABNORMAL) CBC auto differential (01/04/2025 3:45 PM EDT) WBC 9.7 4.8 - 10.8 K/mcL LAB [...] 6:41 PM EDT [facility] MCV 89.8 79.0 - 98.0 FL LAB HEMETOLOGY METHOD 01/04/2025 6:41 PM EDT [facility] MCH 27.6 27.0 - 32.0 pcg LAB HEMETOLOGY METHOD 01/04/2025 6:41 PM EDT [facility] MCHC 30.7(L) 32.0 - 37.0 g/dL LAB HEMETOLOGY METHOD 01/04/2025 6:41 PM EDT [facility] RDW 15.7(H) 11.0 - 15.0 % LAB HEMETOLOGY METHOD 01/04/2025 6:41 PM [facility] Platelets 608(H) 130 - 400 K/mcL LAB HEMETOLOGY METHOD 01/04/2025 6:41 PM [facility] MPV 9.7 7.0 - 11.0 FL LAB HEMETOLOGY METHOD 01/04/2025 6:41 PM [facility] NRBC 0.0 <1.0 % LAB HEMETOLOGY METHOD 01/04/2025 6:41 PM [facility] NRBC Absolute 0.00 <0.10 K/mcL LAB HEMETOLOGY METHOD 01/04/2025 6:41 PM [facility] Neutrophils Relative 73.6 % LAB HEMETOLOGY METHOD 01/04/2025 6:41 PM [facility] Lymphocytes Relative 14.2 % LAB HEMETOLOGY METHOD 01/04/2025 6:41 PM [facility] Monocytes Relative 5.9 % LAB HEMETOLOGY METHOD 01/04/2025 6:41 PM [facility] Eosinophils Relative 4.6 % LAB HEMETOLOGY METHOD 01/04/2025 6:41 PM [facility] Basophils Relative 1.2 % LAB HEMETOLOGY METHOD 01/04/2025 6:41 PM [facility] Immature Granulocytes Relative 0.5 % LAB HEMETOLOGY METHOD 01/04/2025 6:41 PM [facility] Neutrophils Absolute 7.11(H) 1.50 - 7.00 K/mcL LAB HEMETOLOGY METHOD 01/04/2025 6:41 PM [facility] Lymphocytes Absolute 1.37 1.00 - 5.00 K/mcL LAB HEMETOLOGY METHOD 01/04/2025 6:41 PM [facility] Monocytes Absolute 0.57 0.20 - 1.00 K/mcL LAB HEMETOLOGY METHOD 01/04/2025 6:41 PM EDT [facility] Eosinophils Absolute 0.44 0.00 - 0.50 K/mcL LAB HEMETOLOGY METHOD 01/04/2025 6:41 PM EDT [facility] Basophils Absolute 0.12 0.00 - 0.20 K/mcL LAB HEMETOLOGY METHOD 01/04/2025 6:41 PM EDT [facility] Immature Granulocytes Absolute 0.05(H) 0.00 - 0.03 K/mcL LAB HEMETOLOGY METHOD 01/04/2025 6:41 PM EDT [facility] Blood Venous blood specimen / Unknown 01/04/2025 3:45 PM EDT 01/04/2025 5:51 PM EDT [facility] DUGG[facility] LAB BLOOD ORDERABLES Final Result [facility] [address] [place] [address], documented in this encounter Visit Diagnoses Diagnosis Essential (primary) hypertension Unspecified essential hypertension documented in this encounter Additional Health Concerns Infection Onset Date Last Indicated Resolved Time MRSA 12/26/2024 12/29/2024 documented as of this encounter Care Teams Cashier Greeter Relationship Specialty Start Date End Date Fredy Adair PA [address] [place] [phone] PCP - General Internal Medicine 10/09/21 documented as of this encounter
--- OUTSIDE RECORDS SUMMARY | 2025-01-26 08:58 | XMS_ITS | Clinical Summary ---
Author Organization 175 [facility] Address [address] [place] [address] Phone Care Team Providers Care Hide Shaker Name Role Phone Fredy Adair Primary Care Provider Allergies No known active allergies Medications amLODIPine (NORVASC) 10 mg tablet Take 1 tablet by mouth daily. 08/16/20 21 Active aspirin 81 mg [...] MOUTH EVERY OTHER DAY 02/23/20 24 Active pen needle, diabetic 32 gauge x 5/32 needle Use with insulin pens 4 times daily before meals. 08/16/20 21 Active omeprazole (PriLOSEC) [address] capsule TAKE 1 CAPSULE BY MOUTH DAILY AT 630AM 03/09/20 24 Active zolpidem (AMBIEN) 5 mg tablet TAKE 1 TABLET BY MOUTH EVERY DAY AT BEDTIME NEEDED FOR SLEEP FOR 7 DAYS 12/23/19 24 Active gabapentin (NEURONTIN) 300 mg capsule Take [...] by mouth 2 (two) times a day. 01/01/20 025 Active hydrALAZINE (APRESOLINE) 25 mg tablet Take 1 tablet (25 mg total) by mouth 3 (three) times a day. 90 each 01/01/20 25 025 Active apixaban (Eliquis) 5 mg tablet Take 1 tablet (5 mg total) by mouth 1 (one) time each day. He has decreased Eliquis to once a day due to mucosal bleed 08/16/20 21 025 Discontinued oxyCODONE (OXY-IR) 5 mg immediate release capsule Take 1 capsule (5 mg total) by mouth 1 (one) time each day. 025 Discontinued vancomycin (VANCOCIN) IVPB (premix)Indica tions:maintain trough 15-18 Infuse 400 mL (2,000 mg total) into a venous catheter 1 (one) time each day at the same time for 24 days. 01/01/20 025 oxyCODONE (OXY-IR) 5 mg immediate release capsule Take 1 capsule (5 mg total) by mouth 2 (two) times a day if needed for severe pain for up to 2 days. Max Daily Amount: 10 mg 4 capsule 01/01/20 25 025 oxyCODONE (ROXICODONE) 5 mg immediate release tabletIndicati ons:Ulcer of heel and midfoot, left, with fat layer exposed (CMS/HCC V24, CMS/HCC V28) Take 1 tablet (5 mg total) by mouth every 6 (six) hours if needed for severe pain for up to 7 days. Max Daily Amount: 20 mg 28 tablet 01/06/20 25 025 Active Problems Problem Noted Date Diagnosed Date Type 2 diabetes mellitus wit h left diabetic foot infection (CMS/HCC V24, CMS/HCC V28) 12/28/2024 Foot ulcer due to secondary DM ([facility] V24, [facility] V28) 12/27/2024 Type 2 diabetes mellitus wit h circulatory disorder ([facility] V24, [facility] V28) 12/27/2024 Vascular problem 12/27/2024 Chronic renal impairment, 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) ([facility] V24, [facility] V28) 12/27/2024 Peripheral vascular disease ([facility] V24) 2023 Iron (Fe) deficiency anemia 02/11/2021 Hyperlipidemia 01/11/2021 Diabetes mellitus type 2 wit h peripheral artery disease ([facility] V24, [facility] V28) 10/31/2020 Hypertension 02/10/2020 Tobacco use disorder 01/31/2019 CHF (congestive heart failure) ([facility] V24, [place] [id number]) Encounters Date Type Department Care Team Description 01/20/2025 Lab Requisition [facility] Lab [address] [facility] [place] [phone] Jeny Light MD Type 2 diabetes mellitus with foot ulcer (CODE) ([facility] V24, [facility] V28) 01/19/2025 9:15 AM EDT Office Visit Orthopedic Surgery [facility] [address] [phone] Miguel A Villegas DPM Localized edema (Primary Dx); Controlled type 2 diabetes with neuropathy ([facility] V24, [facility] V28) 01/13/2025 Lab Requisition [facility] Lab [address] [facility] [place] [phone] Jeny Light MD Encounter for therapeutic drug level monitoring 01/12/2025 9:30 AM EDT Office Visit Orthopedic Surgery [facility] [address] [phone] Miguel A Villegas DPM History of amputation of left foot through metatarsal bone ([facility] V24, [facility] V28) (Primary Dx); Dehiscence of operative wound, subsequent encounter; Ulcer of heel and midfoot, left, with fat layer exposed ([facility] V24, [facility] V28) 01/09/2025 Telephone Infectious Disease - [address] [place] [address] Jerilyn Short, MILLI 01/06/2025 Lab Requisition [facility] Lab [address] [place] [phone] Jeny Light MD Encounter for therapeutic drug level monitoring 01/06/2025 Telephone Orthopedic Surgery [facility] [address] [phone] Daria Maher RN 01/05/2025 9:00 AM EDT Office Visit Orthopedic [facility] [address] [phone] Miguel A Villegas, DESHAWN History of amputation of left foot through metatarsal bone ([facility] V24, [facility] V28) (Primary Dx); Cellulitis of left foot; Surgical wound dehiscence, initial encounter; Ulcer of heel and midfoot, left, with fat layer exposed ([facility] V24, [facility] V28) 01/04/2025 Lab Requisition [facility] Lab [address] [place] [phone] Nkechi Salazar PA Essential (primary) hypertension 12/30/2024 12:43 PM EDT Anesthesia Event [facility] [address] [place] [phone] Guero Reyes MD Steele, Matthew G, CRNA 12/30/2024 12:37 PM EDT - 12/30/2024 11:59 PM EDT Hospital Encounter [facility] [address] [place] [phone] Josue Gleason MD Gomes, Sheldon B, MD Bacteremia (Primary Dx) Discharge Disposition: Home or Self Care 12/29/2024 4:16 PM EDT Anesthesia Event [facility] Main OR [address] [place] [phone] Casey Salgado MD Abrokwah, Foster Myles G, CRNA 12/29/2024 4:06 PM EDT - 12/29/2024 5:[address] [facility] OR [address] [place] [phone] Miguel A Villegas DPM LEFT FOOT SECONDARY WOUND CLOSURE, ANTIBIOTIC BEADS 12/27/2024 4:06 PM EDT Anesthesia Event [facility] OR [address] [place] [phone] Nereyda Fall MD 12/27/2024 4:00 PM EDT - 12/27/2024 5:[address] [facility] OR [address] [place] [phone] Miguel A Villegas DPM I&D bone left foot 12/26/2024 9:50 PM EDT - 12/31/2024 3:32 PM EDT Hospital Encounter [facility] Urology Unit [address] [place] [phone] Otto Levine MD Alam, MD Shahram Mendez Priya, MD Seralathan, Manikandan, MD MRSA bacteremia (Primary Dx); Type 2 diabetes mellitus with left diabetic foot infection ([facility] V24, [facility] V28); Foot ulcer due to secondary DM ([facility] V24, [facility] V28); Abscess of right foot; Infection Discharge Disposition: Home-Health Care [facility] 12/26/2024 3:15 PM EDT Office Visit Orthopedic Surgery [facility] [address] [phone] Miguel A Villegas DPM History of amputation of left foot through metatarsal bone ([facility] V24, [facility] V28) (Primary Dx); Cellulitis of left foot; Abscess of tendon of foot, left; Ulcer of left heel, with necrosis of bone ([facility] V24, [facility] V28) 12/26/2024 Telephone Orthopedic Surgery [facility] [address] [phone] Miguel A Villegas DPM Wound 12/22/2024 8:15 AM EDT Office Visit Orthopedic Surgery [address] [phone] Miguel A Villegas DPMadhu Controlled type 2 diabetes with neuropathy ([facility] V24, [facility] V28) (Primary Dx); History of amputation of left foot through metatarsal bone ([facility] V24, [facility] V28); Ulcer of heel and midfoot, left, with fat layer exposed ([facility] V24, [facility] V28); Cellulitis of left foot 11/22/2024 8:45 AM EST Office Visit Orthopedic Surgery [facility] [address] [phone] Miguel A Villegas DPMadhu Controlled type 2 diabetes with neuropathy ([facility] V24, [facility] V28) (Primary Dx); History of amputation of left foot through metatarsal bone ([facility] V24, [facility] V28); Ulcer of heel and midfoot, left, with fat layer exposed ([facility] V24, [facility] V28) from Last 3 Months Surgical History [...] anemia; COMMENT: Herbert 01/2021 Peripheral vascular disease ([facility] V24) DX:Peripheral vascular disease (HCC) Esophageal reflux DX:Esophageal reflux Anemia DX:Anemia Hyperlipidemia DX:Hyperlipidemi a Essential hypertension DX:Essent ial hypertension History of tobacco abuse DX:Hist ory of tobacco abuse CHF (congestive heart failur e) ([facility] V24, [facility] V28) Reduced EF 40-45% Family History Medical [...] - - Weight 95.7 kg (211 lb) 01/19/2025 9:20 AM EDT Height 170.2 cm (5' 7.01 ) 01/19/2025 9:20 AM ED T Body Mass Index 33.04 01/19/2025 9:20 AM EDT Plan of Treatment Upcoming Encounters Date Type Department Care Team (Late st Contact Info) Description 02/03/2025 9:15 AM EDT Office Visit Orthopedic Surgery - [place] [address] [phone] Miguel A Villegas DPM 175 [facility] Shane [address] [place] [phone] Health Maintenance Due Date Last Done Comments [...] 12/27/2024 Diabetes: Annual GFR (Glomerular Filtration Rate) 01/20/2026 01/20/2025, 01/13/2025, 01/06/2025, Additional history exists Hypertension/CHF/CAD Annual BMP Blood Test 01/20/2026 01/20/2025, 01/13/2025, 01/06/2025, Additional history exists Cholesterol Screening (Lipid Panel) [...] this topic Medical Devices Implanted Type Area Asbestos Abatement Worker Device Identifier Shelf Expiration Date Model / Serial / Lot Rickey Robins 10ml - Sn/A - [id number] Implanted:Qty : 1 on 12/29/2024 by Miguel A Villegas DPM at [facility] [employer] Left: [facility] [id number] 05/28/2026 620-010 / N/A / [id number] Procedures Procedure Name Priority Date/Time Associated Diagnosis Comments SST - GOLD Routine 01/20/2025 2:30 PM EDT Type 2 diabetes mellitus with foot ulcer (CODE) (CMS/HCC V24, CMS/HCC V28) CBC WITH AUTO DIFFERENTIAL Routine 01/20/2025 2:30 PM EDT Type 2 diabetes mellitus with foot ulcer (CODE) (CMS/HCC V24, CMS/HCC V28) VANCOMYCIN, TROUGH Routine 01/20/2025 2: 30 PM EDT Type 2 diabetes mellitus with foot ulcer (CODE) (CMS/HCC V24, CMS/HCC V28) BASIC METABOLIC PANEL Routine 01/20/2025 2:30 PM EDT Type 2 diabetes mellitus with foot ulcer (CODE) (CMS/HCC V24, CMS/HCC V28) CBC AND DIFFERENTIAL Routine 01/20/2025 2:30 PM EDT Type 2 diabetes mellitus with foot ulcer (CODE) (CMS/HCC V24, CMS/HCC V28) SST - GOLD Routine 01/13/2025 3:45 PM EDT Encounter for therapeutic drug level monitoring SST - GOLD Routine 01/13/2025 3:45 PM EDT Encounter for therapeutic drug level monitoring BASIC METABOLIC PANEL Routine 01/13/2025 3:45 PM EDT Encounter for therapeutic drug level monitoring VANCOMYCIN, TROUGH Routine 01/13/2025 3: 45 PM EDT Encounter for therapeutic drug level monitoring SST - GOLD Routine 01/06/2025 4:15 PM EDT Encounter for therapeutic drug level monitoring VANCOMYCIN, TROUGH Routine 01/06/2025 4: 15 PM EDT Encounter for therapeutic drug level monitoring BASIC METABOLIC PANEL Routine 01/06/2025 4:15 PM EDT Encounter for therapeutic drug level monitoring RED - PLAIN Routine 01/04/2025 3:45 PM [...] CULTURE BLOOD STAT 12/26/2024 10:40 PM EDT [id number], RSV, FLU A AND B QUALITATIVE RT-PCR, [...] A1C Routine 05/17/2021 LIPID PANEL Routine 05/17/2021 HM URINE ALBUMIN CREATININE RATIO Routine 02/12/2021 from Last 3 Months or Most Recently Relevant to Health Maintenance Results * SST tube (01/20/2025 2:30 PM EDT) Only the most recent of4 resultswithin the time period is included. Extra Tube Hold for add-ons. 01/20/2025 4:01 PM EDT [facility] Comment:Auto resulted. Blood Venous blood specimen / Unknown 01/20/2025 2:30 PM EDT 01/20/2025 2:58 PM EDT us Jeny Light MD LAB BLOOD ORDERABLES Final Resul t [facility] [address] [place] [address], [place] [phone] * (ABNORMAL) CBC auto differential (01/20/2025 2:30 PM EDT) Only the most recent of7 resultswithin the time period is included. [facility] WBC 9.7 4.8 - 10.8 K/mcL LAB HEMETOLOGY [facility] RBC 2.80(L) 4.50 - 5.50 M/mcL LAB HEMETOLOGY METHOD 01/20/2025 3:39 [facility] Hemoglobin 7.8(L) 13.5 - 17.5 g/dL LAB HEMETOLOGY METHOD 01/20/2025 3:39 [facility] Hematocrit 24.1(L) 42.0 - 54.0 % LAB HEMETOLOGY METHOD 01/20/2025 3:39 PM [facility] MCV 85.2 79.0 - 98.0 FL LAB HEMETOLOGY METHOD 01/20/2025 3:39 PM [facility] MCH 27.6 27.0 - 32.0 pcg LAB HEMETOLOGY METHOD 01/20/2025 3:39 PM [facility] MCHC 32.4 32.0 - 37.0 g/dL LAB HEMETOLOGY METHOD 01/20/2025 3:39 PM [facility] RDW 16.2(H) 11.0 - 15.0 % LAB HEMETOLOGY METHOD 01/20/2025 3:39 PM [facility] Platelets 360 130 - 400 K/mcL LAB HEMETOLOGY METHOD 01/20/2025 3:39 PM [facility] MPV 9.6 7.0 - 11.0 FL LAB HEMETOLOGY METHOD 01/20/2025 3:39 [facility] NRBC 0.0 <1.0 % LAB HEMETOLOGY METHOD 01/20/2025 3:39 PM EDT [facility] NRBC Absolute 0.00 <0.10 K/mcL LAB HEMETOLOGY METHOD 01/20/2025 3:39 PM [facility] Neutrophils Relative 67.2 % LAB HEMETOLOGY METHOD 01/20/2025 3:39 PM [facility] Lymphocytes Relative 16.3 % LAB HEMETOLOGY METHOD 01/20/2025 3:39 PM [facility] Monocytes Relative 10.7 % LAB HEMETOLOGY METHOD 01/20/2025 3:39 PM [facility] Eosinophils Relative 4.7 % LAB HEMETOLOGY METHOD 01/20/2025 3:39 PM [facility] Basophils Relative 0.7 % LAB HEMETOLOGY METHOD 01/20/2025 3:39 PM [facility] Immature Granulocytes Relative 0.4 % LAB HEMETOLOGY METHOD 01/20/2025 3:39 PM [facility] Neutrophils Absolute 6.50 1.50 - 7.00 K/mcL LAB HEMETOLOGY METHOD 01/20/2025 3:39 PM [facility] Lymphocytes Absolute 1.57 1.00 - 5.00 K/mcL LAB HEMETOLOGY METHOD 01/20/2025 3:39 PM [facility] Monocytes Absolute 1.03(H) 0.20 - 1.00 K/mcL LAB HEMETOLOGY METHOD 01/20/2025 3:39 PM [facility] Eosinophils Absolute 0.45 0.00 - 0.50 K/mcL LAB HEMETOLOGY METHOD 01/20/2025 3:39 PM [facility] Basophils Absolute 0.07 0.00 - 0.20 K/mcL LAB HEMETOLOGY METHOD 01/20/2025 3:39 PM [facility] Immature Granulocytes Absolute 0.04(H) 0.00 - 0.03 K/mcL LAB HEMETOLOGY METHOD 01/20/2025 3:39 PM EDT [facility] Blood Venous blood specimen / Unknown 01/20/2025 2:30 PM EDT 01/20/2025 2:58 PM EDT us Jeny Light MD LAB BLOOD ORDERABLES Final Resul t Performing Organization Address [facility] de Phone Number [facility] [address] [place] [address], [place] [phone] * Vancomycin, trough (01/20/2025 2:30 PM EDT) Only the most recent of5 resultswithin the time period is included. Vancomycin Trough 17.2 10.0 - 20.0 mcg/mL LAB CHEMISTRY METHOD 01/20/2025 4:10 PM EDT [facility] Blood Venous blood specimen / Unknown 01/20/2025 2:30 PM EDT 01/20/2025 2:58 PM EDT us Jeny Light MD LAB BLOOD ORDERABLES Final Resul t Performing Organization Address [facility] de Phone Number [facility] [address] [place] [address], [place] [phone] * (ABNORMAL) Basic metabolic panel (01/20/2025 2:30 PM EDT) Only the most recent of9 resultswithin the time period is included. Sodium 137 133 - 145 mmol/L LAB CHEMISTRY METHOD 01/20/2025 4:10 PM EDT [facility] Potassium 4.0 3.5 - 5.5 mmol/L LAB CHEMISTRY METHOD 01/20/2025 4:10 PM EDT [facility] Comment:Hemolysis present Chloride 106 96 - 110 mmol/L LAB CHEMISTRY METHOD 01/20/2025 4:10 PM EDT [facility] CO2 22 21 - 32 mmol/L LAB CHEMISTRY METHOD 01/20/2025 4:10 PM EDT [facility] Anion Gap 9 3 - 11 LAB CHEMISTRY METHOD 01/20/2025 4:10 PM T [facility] Glucose 183(H) 70 - 100 mg/dL LAB CHEMISTRY METHOD 01/20/2025 4:10 PM T [facility] BUN 20 5 - 25 mg/dL LAB CHEMISTRY METHOD 01/20/2025 4:10 PM [facility] Creatinine 1.67(H) 0.70 - 1.30 mg/dL LAB CHEMISTRY METHOD 01/20/2025 4:10 PM [facility] eGFR 49(L) >=60 mL/min/1. 73m2 LAB CHEMISTRY METHOD 01/20/2025 4:10 PM T [facility] Comment:Calculation based on the??Chronic Kidney Disease Epidemiology Collaboration (CKD-EPI) equation refit??without adjustment for race. BUN/Creatinine Ratio 12.0 LAB CHEMISTRY METHOD 01/20/2025 4:10 PM [facility] Calcium 8.6 8.5 - 10.5 mg/dL LAB CHEMISTRY METHOD 01/20/2025 4:10 PM [facility] Blood Venous blood specimen / Unknown 01/20/2025 2:30 PM EDT 01/20/2025 2:58 PM EDT us Jeny Light MD LAB BLOOD ORDERABLES Final Resul t [facility] [address] [place] [address], * Red tube (01/04/2025 3:45 PM EDT) Extra Tube Hold for add-ons. 01/04/2025 7:01 PM EDT [facility] Comment:Auto resulted. Blood Venous blood specimen / Unknown 01/04/2025 3:45 PM EDT 01/04/2025 5:51 PM EDT Nkechi DUGGAN LAB BLOOD ORDERABLES Final Result [facility] [address] [place] [address], [place] [phone] * XR Chest 1 View (12/31/2024 2:10 [...] Signed Date: 12/31/2024 14:28 ET Workstation ID: [id number] Transcribed By: Self Edit Transcribed Date: 12/31/2024 [...] Signed Date: 12/31/2024 14:28 ET Workstation ID: [id number] Transcribed By: Self Edit Transcribed Date: 12/31/2024 14:26 ET us Ramiro Wayne MD IMG XR PROCEDURES Final Result * (ABNORMAL) POCT Glucose, blood (12/31/2024 11:11 AM EDT) Only the most recent of19 resultswithin the time period is included. Glucose POCT 232(H) 70 - 100 mg/dL 12/31/2024 11:11 AM EDT [facility] Blood Capillary blood specimen / Unknown 12/31/2024 11:11 AM EDT 12/31/2024 11:13 AM EDT us Ramiro Wayne MD LAB POINT OF CA RE TEST DOCKED DEVICE UNSOLICITED RESULTS Final Result [facility] [address] [place] [address], [place] [phone] * Magnesium (12/31/2024 6:12 AM EDT) Only the most recent of5 resultswithin the time period is included. Magnesium 2.2 1.9 - 2.6 mg/dL LAB CHEMISTRY METHOD 12/31/2024 7:50 AM EDT [facility] Blood Blood sample taken from central line / Unknown Long-term Catheter / Unknown 12/31/2024 6:12 AM EDT 12/31/2024 6:47 AM EDT Nkechi Salazar PA LAB BLOOD ORDERABLES Final Result [facility] [address] [place] [address], [place] [phone] * Insert PICC line (12/30/2024 5:38 PM EDT) Narrative Jerilyn Francis RN - 12/30/2024 5:38 PM EDT Jerilyn Francis RN ? 12/30/2024 ??5:42 PM PICC Line Insertion Procedure Note Procedure: Insertion of 4F single lumen Bard PowerPICC Lot: [id number] Exp: 2025-08-27 Indications: ??Vancomycin until 01/24/2025 Procedure [...] Brochure given to patient with teaching instruction. Nkechi DUGGAN IV THERAPY ORDERABLES Kimberlee l Result * ALLEN COMPLETE (12/30/2024 1:54 PM [...] obtained. The probe was inserted by the dock worker. There was no probe insertion difficulty. Topical medication administered: lidocaine gel. Moderate sedation was administered by anesthesia. The patient had no complications. Estimated blood loss: no blood loss. No specimens were collected. us Nabil Anderson MD CV ECHO PROCEDURES Edited [...] alternatives were discussed: yes ?Risks discussed: ??Bleeding [place] protocol: ??Procedure explained and questions answered to [...] ??Procedure completion: ??Tolerated well, no immediate complications us Josue Gleason MD IN CLINIC/BEDSIDE ORDERAB LES Final Result * (ABNORMAL) Urinalysis with reflex microscopic and culture (12/30/2024 5:16 AM EDT) Specific [place] Urine 1.014 1.003 - 1.030 LAB URINALYSIS - AUTOMATED METHOD 12/30/2024 7:42 AM [facility] pH, Urine 6.5 5.0 - 8.0 pH LAB URINALYSIS - AUTOMATED METHOD 12/30/2024 7:42 AM [facility] Leukocytes, Urine Negative Negative LAB URINALYSIS - AUTOMATED METHOD 12/30/2024 7:42 AM [facility] Nitrite, Urine Negative Negative LAB URINALYSIS - AUTOMATED METHOD 12/30/2024 7:42 AM [facility] Protein, Urine 300(A) <=Trace mg/dL LAB URINALYSIS - AUTOMATED METHOD 12/30/2024 7:42 AM [facility] Glucose, Urine 500(A) Negative mg/dL LAB URINALYSIS - AUTOMATED METHOD 12/30/2024 7:42 AM [facility] Ketones, Urine Negative Negative mg/dL LAB URINALYSIS - AUTOMATED METHOD 12/30/2024 7:42 AM [facility] Urobilinogen, Urine 0.2 0.2 - 1.0 mg/dL LAB URINALYSIS - AUTOMATED METHOD 12/30/2024 7:42 AM [facility] Bilirubin, Urine Negative Negative LAB URINALYSIS - AUTOMATED METHOD 12/30/2024 7:42 AM [facility] Blood, Urine Negative Negative LAB URINALYSIS - AUTOMATED METHOD 12/30/2024 7:42 AM [facility] RBC, Urine 3.1 0 - 4 /HPF LAB URINALYSIS - AUTOMATED METHOD 12/30/2024 7:42 AM [facility] WBC, Urine 1.0 0 - 4 /HPF LAB URINALYSIS - AUTOMATED METHOD 12/30/2024 7:42 AM [facility] Squamous Epithelial, Urine 22 0 - 60 /LPF LAB URINALYSIS - AUTOMATED METHOD 12/30/2024 7:42 AM [facility] Bacteria, Urine Negative Negative /HPF LAB URINALYSIS - AUTOMATED METHOD 12/30/2024 7:42 AM [facility] Hyaline Casts, Urine 2.0 0 - 3 /LPF LAB URINALYSIS - AUTOMATED METHOD 12/30/2024 7:42 AM [facility] Urine Urine specimen obtained by clean catch procedure / Unknown Non-blood Collection / Unknown 12/30/2024 5:16 AM EDT 12/30/2024 6:53 AM EDT us Nohemi Omalley MD LAB URINE ORDERABLES Final Resul t [facility] [address] [place] [address], [place] [phone] * Bowen urine culture tube (12/30/2024 5:16 AM EDT) Extra Tube Hold for add-ons. 12/30/2024 8:01 AM EDT [facility] Comment:Auto resulted. Urine Urine specimen obtained by clean catch procedure / Unknown Non-blood Collection / Unknown 12/30/2024 5:16 AM EDT 12/30/2024 6:53 AM EDT us Nohemi Omalley MD LAB URINE ORDERABLES Final Resul t [facility] [address] [place] [address], [place] [phone] * CT Chest/Abdomen/Pelvis wo Contrast (12/29/2024 9:21 [...] Pino MD on 12/29/2024 22:14:[address] PROCEDURES Final Re sult * (ABNORMAL) Culture wound deep (12/29/2024 4:55 PM EDT) Only the most recent of2 resultswithin the time period is included. Culture, Wound Light Growth Methicillin-Resista nt Staphylococcus aureus(A) RENE 01/01/2025 10:20 AM T [facility] Comment: The organism value for this result has been updated. These results have been appended to the previously preliminary verified report. Edited result: Previously reported as Staphylococcus aureus on 12/31/2024 at 1038 EDT. Gram Stain Result No polymorphonuclear leukocytes, No epithelial cells, and No organisms noted 01/01/2025 10:20 AM T [facility] Swab Structure of left foot / Unknown 12/29/2024 4:55 PM EDT 12/29/2024 5:32 PM EDT Narrative Organism Antibiotic Method Susceptibility Methicillin-Resistant Staphylococcus aureus Benzylpenicillin ERNE >=0.5 ug/ml: Resistant Methicillin-Resistant Staphylococcus aureus Oxacillin [...] aureus Trimethoprim/Sulfamethoxazo le RENE >=320 ug/ml: Resistant us Miguel A Villegas DPM LAB MICROBIOLOGY - GENERAL ORDERABLES Final Result Performing Organization Address [facility]/ZIP Co de Phone Number [facility] ([facility] [address] [place] [address], * ECG 12 lead (12/29/2024 12:54 PM EDT) [facility] Signature Ventricular Rate ECG 88 BPM GEMUSE Atrial Rate 88 BPM GEMUSE P-R Interval 204 ms GEMUSE QRS Duration 82 ms GEMUSE Q-T Interval 380 ms GEMUSE QTc 459 ms GEMUSE P Wave [place] 45 degrees GEMUSE R [place] -28 degrees GEMUSE T [place] 91 degrees GEMUSE ECG Interpretation Normal sinus rhythm Nonspecific ST and T wave abnormality Abnormal ECG When compared with ECG of 19-APR-2024 09:41, No significant change was found Confirmed by Romie PINO YUFENG ([id number]) on 12/29/2024 7:41:58 PM GEMUSE 12/29/2024 12:5 4 PM EDT 12/29/2024 7:41 PM EDT us Nohemi Omalley MD ECG ORDERABLES Final Result Performing Organization Address City/[facility]/ZIP Co de Phone Number GEMUSE * (ABNORMAL) TRANSTHORACIC ECHOCARDIOGRAM (TTE) COMPLETE (12/29/2024 9:23 AM EDT) [facility] BSA 2.07 m2 CV PACS Left Atrium Minor [place] 6.3 cm CV PACS Left Atrium Major [place] 5.7 cm CV PACS LA Area Sys [...] LAB CHEMISTRY METHOD 12/28/2024 11:32 AM EDT [facility] Folate 11.7 2.8 - 17.0 ng/ml LAB CHEMISTRY METHOD 12/28/2024 11:32 AM EDT [facility] Blood Venous blood specimen / Unknown Venipuncture / Unknown 12/28/2024 9:57 AM EDT 12/28/2024 10:23 AM EDT us Nkechi DUGGAN LAB BLOOD ORDERABLES Final Result [facility] [address] [place] [address], [place] [phone] * (ABNORMAL) Iron and TIBC (12/28/2024 9:57 AM EDT) Pathologist [facility] Iron 18(L) 50 - 160 mcg/dL LAB CHEMISTRY METHOD 12/28/2024 11:09 AM EDT [facility] TIBC 184(L) 250 - 450 mcg/dL LAB CHEMISTRY METHOD 12/28/2024 11:09 AM EDT [facility] Iron Saturation 10(L) 20 - 50 % LAB CHEMISTRY METHOD 12/28/2024 11:09 AM EDT [facility] Blood Venous blood specimen / Unknown Venipuncture / Unknown 12/28/2024 9:57 AM EDT 12/28/2024 10:23 AM EDT us Nkechi DUGGAN LAB BLOOD ORDERABLES Final Result Performing Organization Address [facility]/ZIP Al de Phone Number [facility] [address] [place] [address], [place] [phone] * Type and screen (12/28/2024 9:57 AM EDT) [facility] ABO Group A 12/28/2024 11:13 AM EDT [facility] Rh Type Positive 12/28/2024 11:13 AM EDT [facility] Antibody Screen Negative 12/28/2024 11:13 AM EDT [facility] Blood Venous blood specimen / Unknown Venipuncture / Unknown 12/28/2024 9:57 AM EDT 12/28/2024 10:23 AM EDT us Nkechi DUGGAN LAB BLOOD BANK TEST ORDERA BLES Final Result Performing Organization Address City/[facility]/ZIP Co de Phone Number [facility] [address] [place] [address], [place] [phone] * Ferritin (12/28/2024 9:57 AM EDT) Ferritin 76 26 - 388 ng/mL LAB CHEMISTRY METHOD 12/28/2024 11:09 AM EDT [facility] Blood Venous blood specimen / Unknown Venipuncture / Unknown 12/28/2024 9:57 AM EDT 12/28/2024 10:23 AM EDT Nkechi DUGGAN LAB BLOOD ORDERABLES Final Result Performing Organization Address [facility]/ZIP Co de Phone Number [facility] [address] [place] [address], [place] [phone] * Prepare RBC: 1 Units (12/28/2024 9:03 AM EDT) [facility] Signature Product Code [id number] 12/28/2024 12:10 PM EDT [facility] Unit Number [id number] 12/29/19 12:10 PM EDT [facility] Crossmatch Compatible 12/28/2024 11:15 AM EDT [facility] Dispense Status Transfused 12/28/2024 12:10 PM EDT [facility] Unit ABO Rh APOS 12/28/2024 12:10 PM EDT [facility] Unit Expiration Date Time [id number] 12/28/2024 12:10 PM EDT [facility] Unit Blood Type 6200 12/28/2024 12:10 PM EDT [facility] Blood Venous blood specimen / Unknown 12/28/2024 9:03 AM EDT 12/28/2024 10:23 AM EDT us Nkechi DUGGAN BLOOD BANK PRODUCT ORDERAB LES Final Result Performing Organization Address [facility]/ZIP Co de Phone Number [facility] [address] [place] [address], [place] [phone] * Culture blood (12/28/2024 8:28 AM EDT) Only the most recent of4 resultswithin the time period is included. Culture, Blood No growth at 5 days 01/02/2025 9:01 AM EDT [facility] Blood Venous blood specimen / Unknown Venipuncture / Unknown 12/28/2024 8:28 AM EDT 12/28/2024 8:32 AM EDT us Nkechi DUGGAN LAB MICROBIOLOGY - GENERAL ORDERABLES Final Result Performing Organization Address City/[facility]/ZIP Co de Phone Number [facility] [address] [place] [address], [place] [phone] * (ABNORMAL) Reticulocyte count (12/28/2024 8:28 AM EDT) Retic Ct Abs 0.030 0.030 - 0.090 M/mcL LAB HEMETOLOGY METHOD 12/28/2024 11:05 AM EDT [facility] Retic Ct Pct 1.2 0.7 - 1.7 % LAB HEMETOLOGY METHOD 12/28/2024 11:05 AM [facility] Immature Retic Fract 20.1(H) 2.3 - 15.9 % LAB HEMETOLOGY METHOD 12/28/2024 11:05 AM EDT [facility] Reticulocyte Hemoglobin 27.4(L) >29.0 pcg LAB HEMETOLOGY METHOD 12/28/2024 11:05 AM T [facility] Blood Venous blood specimen / Unknown Venipuncture / Unknown 12/28/2024 8:28 AM EDT 12/28/2024 8:33 AM EDT us Nkechi DUGGAN LAB BLOOD ORDERABLES Final Result [facility] [address] [place] [address], [place] [phone] * (ABNORMAL) MRSA molecular study (12/28/2024 8:02 AM EDT) Pathologist [facility] MRSA Screen PCR Detected (A) Not Detected LAB MICROBIOLOGY METHOD 12/28/2024 10:04 AM EDT [facility] Swab Both anterior nares / Unknown Non-blood Collection / Unknown 12/28/2024 8:02 AM EDT 12/28/2024 8:44 AM EDT Otto Levine MD LAB MICROBIOLOGY - GEN ERAL ORDERABLES Final Result [facility] [address] [place] [address], [place] [phone] * Tissue exam (12/27/2024 4:35 PM EDT) Pathologist [facility] Final Diagnosis A. Cuboid margin, left foot, [...] are not identified. 12/30/2024 10:44 AM EDT [facility] Gross Description A. Foot, Left, [...] two pieces. JOHN 12/30/2024 10:44 AM EDT [facility] Disclaimer Unless otherwise specified, all tissue is 10% NB formalin fixed and paraffin embedded. 12/30/2024 10:44 AM EDT [facility] Bone Structure of left foot / Unknown 12/27/2024 4:35 PM EDT 12/28/2024 5:13 AM EDT Specimen from bone (specimen) Structure of left foot / Unknown 12/27/2024 4:35 PM EDT 12/28/2024 5:13 AM EDT Miguel A Villegas DPMadhu LAB PATHOLOGY ORDERABLES Fi nal Result [facility] [address] [place] [address], [place] [phone] * TH AN LMA(NO CHARGE) (12/27/2024 4:20 [...] Signed Date: 12/27/2024 15:25 ET Workstation ID: [id number] Transcribed By: Self Edit Transcribed Date: 12/27/2024 [...] Signed Date: 12/27/2024 15:25 ET Workstation ID: [id number] Transcribed By: Self Edit Transcribed Date: 12/27/2024 15:14 ET us Otto Levine MD IMG MRI PROCEDURES Fin al Result * Prothrombin time with INR (12/27/2024 6:24 AM EDT) Protime 12.5 10.6 - 13.9 sec LAB COAGULATION METHOD 12/27/2024 6:59 AM EDT [facility] INR 1.0 LAB COAGULATION METHOD 12/27/2024 6:59 AM EDT [facility] Blood Venous blood specimen / Unknown Venipuncture / Unknown 12/27/2024 6:24 AM EDT 12/27/2024 6:25 AM EDT us Otto Levine MD LAB BLOOD ORDERABLES F inal Result [facility] [address] [place] [address], [place] [phone] * Lavender tube (12/27/2024 4:44 AM EDT) [facility] Extra Tube Hold for add-ons. 12/27/2024 7:01 AM EDT [facility] Comment:Auto resulted. Blood Venous blood specimen / Unknown Venipuncture / Unknown 12/27/2024 4:44 AM EDT 12/27/2024 5:40 AM EDT us Otto Levine MD LAB BLOOD ORDERABLES F inal Result Performing Organization Address City/[facility]/ZIP Co de Phone Number [facility] [address] [place] [address], [place] [phone] * Phosphorus (12/27/2024 4:44 AM EDT) [facility] Phosphorus 4.0 2.5 - 4.5 mg/dL LAB CHEMISTRY METHOD 12/27/2024 6:21 AM EDT [facility] Blood Venous blood specimen / Unknown Venipuncture / Unknown 12/27/2024 4:44 AM EDT 12/27/2024 5:26 AM EDT us Otto Levine MD LAB BLOOD ORDERABLES F inal Result Performing Organization Address City/[facility]/ZIP Co de Phone Number [facility] [address] [place] [address], [place] [phone] * (ABNORMAL) Hepatic function panel (12/27/2024 4:44 AM EDT) [facility] Total Protein 6.0 6.0 - 8.0 g/dL LAB CHEMISTRY METHOD 12/27/2024 6:25 AM EDT [facility] Albumin 1.7(L) 3.2 - 5.0 g/dL LAB CHEMISTRY METHOD 12/27/2024 6:25 AM EDT [facility] Total Bilirubin 0.2 0.0 - 1.4 mg/dL LAB CHEMISTRY METHOD 12/27/2024 6:25 AM EDT [facility] Bilirubin, Direct <0.1 0.0 - 0.3 mg/dL LAB CHEMISTRY METHOD 12/27/2024 6:25 AM EDT [facility] Bilirubin, Indirect LAB CHEMISTRY METHOD 12/27/2024 6:25 AM EDT [facility] Comment:Unable to calculate Indirect Bilirubin. ALT (SGPT) 16 10 - 60 unit/L LAB CHEMISTRY METHOD 12/27/2024 6:25 AM EDT [facility] AST (SGOT) 11 10 - 42 unit/L LAB CHEMISTRY METHOD 12/27/2024 6:25 AM EDT [facility] Alkaline Phosphatase 102 42 - 121 unit/L LAB CHEMISTRY METHOD 12/27/2024 6:25 AM EDT [facility] Blood Venous blood specimen / Unknown Venipuncture / Unknown 12/27/2024 4:44 AM EDT 12/27/2024 5:26 AM EDT us Otto Levine MD LAB BLOOD ORDERABLES F inal Result [facility] [address] [place] [address], [place] [phone] * XR Foot 3+ Views Left (12/26/2024 11:33 PM EDT) Anatomical Region Laterality Modality Lower Extremities, Foot Left Radiogra phic Imaging 12/27/2024 8:20 AM EDT Impressions 12/27/2024 8:24 AM EDT Post amputation. ??Bony irregularity could be postsurgical but cannot exclude osteomyelitis. ??MRI could be performed for further evaluation. -------- FINAL REPORT -------- Dictated By: Jose Luis Quarles Dictated Date: 12/27/2024 08:20 ET Assigned Physician: Jose Luis Quarles Reviewed and Electronically Signed By: Jose Luis Quarles Signed Date: 12/27/2024 08:24 ET Workstation ID: [id number] Transcribed By: Self Edit Transcribed Date: 12/27/2024 [...] Signed Date: 12/27/2024 08:24 ET Workstation ID: [id number] Transcribed By: Self Edit Transcribed Date: 12/27/2024 [...] Signed Date: 12/27/2024 08:01 ET Workstation ID: [id number] Transcribed By: Self Edit Transcribed Date: 12/27/2024 [...] Signed Date: 12/27/2024 08:01 ET Workstation ID: [id number] Transcribed By: Self Edit Transcribed Date: 12/27/2024 08:01 ET us Palmira DUGGAN IMG XR PROCEDURES Final Resul t * Lactate, with reflex (12/26/2024 10:40 PM EDT) LACTIC ACID 0.8 0.4 - 2.0 mmol/L LAB CHEMISTRY METHOD 12/26/2024 11:16 PM EDT [facility] Blood Venous blood specimen / Unknown Venipuncture / Unknown 12/26/2024 10:40 PM EDT 12/26/2024 10:49 PM EDT Palmira DUGGAN LAB BLOOD ORDERABLES Final Re sult [facility] [address] [place] [address], [place] [phone] * (ABNORMAL) Blood culture pathogens molecular study (12/26/2024 10:40 PM EDT) [facility] Staphylococcus aureus Detected (A) Not Detected LAB MICROBIOLOGY METHOD 12/27/2024 7:55 PM EDT [facility] mecA/C and MREJ (MRSA) Detected (A) Not Detected LAB MICROBIOLOGY METHOD 12/27/2024 7:55 PM EDT [facility] Comment:mecA/C and MREJ Gene Detected: Indicates Methicillin Resistant Staphylococcus. Blood Venous blood specimen / Unknown Venipuncture / Unknown 12/26/2024 10:40 PM EDT 12/26/2024 10:48 PM EDT Palmira DUGGAN LAB MICROBIOLOGY - GENERAL OR DERABLES Final Result [facility] [address] [place] [address], [place] [phone] * [id number], RSV, Influenza A and B qualitative RT-PCR (12/26/2024 10:31 PM EDT) [facility] Influenza A PCR Not Detected Not Detected LAB MICROBIOLOGY METHOD 12/26/2024 11:32 PM EDT [facility] Influenza B PCR Not Detected Not Detected LAB MICROBIOLOGY METHOD 12/26/2024 11:32 PM EDT [facility] RSV PCR Not Detected Not Detected LAB MICROBIOLOGY METHOD 12/26/2024 11:32 PM EDT [facility] SARS COV-2 Not Detected Not Detected LAB MICROBIOLOGY METHOD 12/26/2024 11:32 PM EDT [facility] Swab Both anterior nares / Unknown Non-blood Collection / Unknown 12/26/2024 10:31 PM EDT 12/26/2024 10:48 PM EDT Narrative [facility] - 12/26/2024 11:32 PM EDT Disclaimer: ??Testing was performed using the [employer] GeneXpert Xpress SARS-CoV-2 _Flu_RSV PLUS PCR assay. [...] for Healthcare providers can be found at https://www.fda.gov/media/352117/download. ?? Fact sheet for Healthcare patients can be found at https://www.fda.gov/media/602316/download. Palmira DUGGAN LAB MICROBIOLOGY - GENERAL OR DERABLES Final Result [facility] [address] [place] [address], * (ABNORMAL) Culture wound with gram stain (12/26/2024 10:30 PM EDT) Culture, Wound Methicillin-Resistan t Staphylococcus aureus(A) RENE 12/29/2024 9:20 AM EDT [facility] Comment: Positive for PBP2a - indicative of MRSA The organism value for this result has been updated. These results have been appended to the previously preliminary verified report. Gram Stain Result Many Polymorphonuclear leukocytes(A) 12/29/2024 9:20 AM EDT [facility] Gram Stain Result No epithelial cells seen(A) 12/29/2024 9:20 AM EDT [facility] Gram Stain Result Many Gram positive cocci in clusters(A) 12/29/2024 9:20 AM EDT [facility] Drainage Structure of left foot [...] aureus Trimethoprim/Sulfamethoxazo le RENE >=320 ug/ml: Resistant us Palmira DUGGAN LAB MICROBIOLOGY - GENERAL OR DERABLES Final Result [facility] ([facility]) [facility] [address] [place] [address], * (ABNORMAL) Sedimentation rate, automated (12/26/2024 7:21 PM EDT) Sed Rate 67(H) 0 - 20 mm/hr LAB HEMETOLOGY METHOD 12/26/2024 10:31 PM EDT [facility] Blood Venous blood specimen / Unknown Venipuncture / Unknown 12/26/2024 7:21 PM EDT 12/26/2024 8:05 PM EDT Palmira DUGGAN LAB BLOOD ORDERABLES Final Re sult Performing Organization Address [facility]/ZIP Co de Phone Number [facility] [address] [place] [address], [place] [phone] * (ABNORMAL) C-reactive protein (12/26/2024 7:21 PM EDT) [facility] C-Reactive Protein 9.30(H) <=0.50 mg/dL LAB CHEMISTRY METHOD 12/26/2024 10:36 PM EDT [facility] Blood Venous blood specimen / Unknown Venipuncture / Unknown 12/26/2024 7:21 PM EDT 12/26/2024 8:05 PM EDT Palmira DUGGAN LAB BLOOD ORDERABLES Final Re sult Performing Organization Address [facility] Co de Phone Number [facility] [address] [place] [address], [place] [phone] * (ABNORMAL) Hemoglobin A1c (05/17/2021) [facility] Hemoglobin A1C 8.7(A) <=6.5 % Blood Venous blood specimen / Unknown Historical Provider MD LAB BLOOD ORDERABLES Kimberlee l Result * (ABNORMAL) Lipid panel (05/17/2021) [facility] LDL/HDL Ratio 3 0 - 4 Triglycerides 76 0 - 150 mg/dL Cholesterol 115 0 - 200 mg/dL HDL 38(A) >=40 mg/dL LDL Cholesterol 62 0 - 100 mg/dL Blood Venous blood specimen / Unknown us Historical Provider LAB BLOOD ORDERABLES Kimberlee l Result * Urine Albumin Creatinine Ratio (02/12/2021) Urine Albumin Creatinine Ratio Abstracted us Historical Provider HEALTH MAINTENANCE Final Result from Last 3 Months or Most Recently Relevant to Health Maintenance Additional Health Concerns Infection Onset Date Last Indicated MRSA 12/26/2024 12/29/2024 Insurance [facility]IC[facility] Member Subscriber Plan / Payer (Ef fective 2023-Present) Name:Irving Barry Relation to Subscriber:Self Name:Irving Barry Payer ID:[id number] Group ID:[id number] Type:Not on file Address: [place] [address] [address] [phone] Advance Directives Documents on File Type Date Recorded 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
== END 2025-01-26 09:29 | disposition home or self-care (01) ==
LOC: HO.HMCH 08:39
PROVIDERS: PCP Physician Assistant; Visit Provider Internal Medicine
DX: E11.52 Type 2 diabetes mellitus with diabetic peripheral angiopathy with gangrene (principal); Z79.4 Long term (current) use of insulin; Z00.00 Encounter for general adult medical examination without abnormal findings

== ENCOUNTER → 2025-01-26 08:39 | Outpatient (BNVA) | payer OTHER, SELFPAY | PROVIDERS: PCP Physician Assistant; Visit Provider Internal Medicine | DX: E11.52 Type 2 diabetes mellitus with diabetic peripheral angiopathy with gangrene (principal); Z79.4 Long term (current) use of insulin | CPT/HCPCS: 99212 ==

== ENCOUNTER 2025-01-27 08:24 | Outpatient (AMB) | payer OTHER, SELFPAY ==
--- NOTE | 2025-01-27 08:41 | MHC.OFFVIS ---
Vital Signs 01/27/25 08:43 01/27/25 09:13 Height 5 ft 8 in Weight 221 lb 9.033 oz BMI 33.7 BP 162/84 H 149/82 H Blood Pressure Location Lt brachial Position Sitting Pulse 84 Pulse Source Pulse Oximeter Pulse Oximetry (%) 98 Oxygen Delivery Method Room Air Intake Visit Reasons: T2DM Intake Note: Patient present today to follow up on Type 2 Diabetes Mellitus. 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 Accompanied by: Self / Same As Patient Allergies No Known Allergies Allergy (Verified 01/27/25 08:43) Medication List - Last Reconciled 01/27/25 by OLGA LIDIA Simmons acetaminophen 650 mg PO Q6H PRN adhesive tape As directed alcohol swabs (Alcohol Pads) 1 pad topical QID amlodipine 10 mg PO DAILY apixaban (Eliquis) 5 mg PO DAILY atorvastatin 40 mg PO DAILY back brace As directed bisacodyl (Dulcolax (bisacodyl)) 10 mg (2 x 5 mg) PO BEDTIME 2 days blood pressure monitor (Blood Pressure Kit) As directed blood-glucose sensor (FreeStyle Jayla 3 Sensor device) apply new sensor every 14 days blood-glucose,social media marketing analyst,cont (FreeStyle Jayla 3 [place]) Use daily to monitor blood glucose levels continuously. dulaglutide (Trulicity) 1.5 mg (0.5 mL) subcut QWEEK ferrous sulfate 325 mg PO DAILY flash glucose scanning reader (FreeStyle Jayla 2 [place]) for continuous use flash glucose sensor (FreeStyle Jayla 2 Sensor kit) for continuous use gabapentin 300 mg PO BEDTIME 30 days glucose (Dex4 Glucose Quick Dissolve) 16 grams (4 x 4 gram) PO Q15M PRN losartan 100 mg PO DAILY 90 days metformin orally 2 times per day with meals; metoprolol succinate ER 50 mg PO DAILY miscellaneous medical supply 2 ea miscellaneous DAILY 99 days omeprazole 40 mg PO DAILY@0630 ondansetron 8 mg PO Q12H 15 days oxycodone 5 mg PO BID PRN 30 days pen needle, diabetic test 4 times daily pen needle, diabetic (BD Ultra-Fine Karen Pen Needle) As directed 4 times a day zolpidem (Ambien) 5 mg PO BEDTIME PRN 30 days HPI Comments Details: This is a 54-year-old male with a past medical history of type 2 diabetes, peripheral vascular disease and coronary artery disease presenting for diabetic management. He was diagnosed with diabetes about 13 years ago. He was hospitalized December 26 through 12/31/2024 for left foot ulcer with osteomyelitis complicated by MRSA infection. He had incision and drainage of the infected foot. He was treated with IV vancomycin. I reviewed his [employer] 3+ download CGM active 53% Average glucose 251 G RI 9.3% Glucose variability 22.9% Very high 52% High 35% Target range 13% 0% hypoglycemia There is hyperglycemia throughout the 24 hour period worsening overnight. Hemoglobin a1c 8.2% 12/16/2024. Current medication regimen: Trulicity 1.5 mg weekly, metformin 500 mg twice a day. He was off Trulicity for a month, and he restarted it this past Thursday. Denies side effects. He is taking Metformin 500 mg twice daily. He has been treated with long-acting insulin in the past, but he is not on it currently. If his glucometer alerts him to a high sugar overnight he will administer fast acting insulin, but the amount and consistency with this varies. He has not used it within the past 2 weeks because he did not get his sensor from the pharmacy until yesterday. Past medication: Mounjaro discontinued when he switched Trulicity. Reported Mounjaro was not as effective for him. 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 Followed by Podiatry. Hyperlipidemia: treated with atorvastatin 40 mg Hypertension is treated with losartan, metoprolol and amlodipine. He took his medications today. Patient reports blood pressure is high today, but it was not yesterday at the primary care visit. He says this is because he has pain today. He is being treated with oxycodone, but he tries to reserve this for bedtime. ROS: Constitutional: No unexplained weight loss, fever, chills or night sweats. Eyes: No vision changes Respiratory: No shortness of breath Cardiovascular: No chest pain Physical exam: Constitutional: Alert, in no distress. Neck: Supple, Full range of motion. No lymphadenopathy. Respiratory: Clear to auscultation. Cardiovascular: S1 S2 regular. No murmurs. [facility] Medical History Abscess of periosteum without osteomyelitis Hospital discharge follow-up Amputation of left foot Pulmonary nodules Type 2 diabetes mellitus with vascular disease Microalbuminuria Decreased renal function Nausea and vomiting Left ventricular ejection fraction of 40-49% SOB (shortness of breath) on exertion Anemia DMII (diabetes mellitus, type 2) Open wound Anemia of chronic disease Peripheral vascular disease Diabetic foot ulcer Anemia Orthostatic hypotension Gangrene of toe of left foot GERD (gastroesophageal reflux disease) History of angiography PICC (peripherally inserted central catheter) in place Bacteremia Diabetic foot ulcer PAD (peripheral artery disease) Diabetes Surgical History History of surgery History of amputation below knee History of esophagogastroduodenoscopy (EGD) H/O colonoscopy (~10/26/23) History of transmetatarsal amputation of left foot Amputated toe of right foot (11/05/20) Family History Other Diabetes No family history of cancer Social History Household Members: None Housing: Apartment Are you a primary child care associate teacher to a significant other at home: No Do you presently have visiting nurse or other home services: No Alcohol intake: current Alcohol intake frequency: holidays/special occasions only Alcohol type: hard liquor Comment: pt still feeling the same Patient Tobacco Use Status: Former Tobacco user Tobacco use type: Cigarette Cigarette Packs Per Day: 0.5 Cigarettes Per Day: 1 Years Smoked: 15 e-Cigarette/Vaping Use: Never Used Second Hand Smoke Exposure: Yes service: No Current occupational status: unemployed Cognitive needs: No Hearing needs: No Vision needs: No Physical Exam Vital Signs: BMI result Body Mass Index 33.7 Office Procedures Glucose Monitoring Details Details: See [facility] [address] - Glucose monitoring, continuous-physician I&R Procedure code (CPT) selection complete Results Reviewed Results Reviewed: Laboratory Tests 10/25/23 03/14/24 09/23/24 05:55 08:15 08:54 Plt Count Creatinine Estimated GFR Hgb A1c (Clinic) 7.1 H AST ALT B-Natriuretic Peptide 2266 H Urine Creatinine 103.24 Urine Microalbumin 1556.0 Microalb/Creat Ratio 1507.1 H 10/13/24 10:56 Plt Count 366 Creatinine 1.27 Estimated GFR 60 Hgb A1c (Clinic) AST 22 ALT 17 B-Natriuretic Peptide Urine Creatinine Urine Microalbumin Microalb/Creat Ratio Assessment & Plan Assessment & Plan (1) Type 2 diabetes mellitus with vascular disease: Code(s): E11.59 - Type 2 diabetes mellitus with other circulatory complications Category: Medical (2) Microalbuminuria: Code(s): R80.9 - Proteinuria, unspecified Category: Medical Plan In summary this is a 54-year-old male with uncontrolled type 2 diabetes with micro and macrovascular complications. Reviewed importance of diabetic eye exams. Followed by Podiatry and Nephrology. Diabetic diet and lifestyle modifications reviewed with the patient. Declined appointment with dietitian and machine maintenance repairer. Reviewed the importance of bringing his glucometer to all appointments. Restarted Trulicity less than a week ago. Continue 1.5 mg weekly. Start Toujeo insulin 10 units every evening. Start Humalog insulin 4 units three times daily 15 minutes before meals. Continue Metformin 500 mg twice daily. Written instructions reviewed for treating hypoglycemia. Patient also took a picture of patient instructions to keep on his phone. Follow up in 2 weeks for Type II diabetes. Orders: Orders AMB Glucose Monitoring Today E11.9 - Type 2 diabetes mellitus without complications Medications: New insulin glargine U-300 conc (Toujeo Max U-300 SoloStar) 10 units (0.0333 mL) subcut BEDTIME 6 mL 5RF insulin lispro (Humalog KwikPen (U-100) Insulin) Administer three times daily 15 minutes before meals. 4 units (0.04 mL) subcut TID 15 mL 5RF Coding Level of Care Code Est Pt Level 4 (11444) Diagnoses Type 2 diabetes mellitus with vascular disease E11.59 Microalbuminuria R80.9 CPT Codes Details - CPT: 42239 - Glucose monitoring, continuous-physician I&R ([id number])
[2025-01-27 08:43] VITALS: BP 162/84; PULSE 84; O2SAT 98; BMI 33.7
--- OUTSIDE RECORDS SUMMARY | 2025-01-27 08:47 | XMS_ITS | Encounter Summary ---
Author Organization [email or web address] [place] [address] Care Team Providers Care Community Support Worker Name Role Phone Fredy Adair Primary Care Provider [phone] Encounter Details Date Type Department Care Team (Late st Contact Info) Description 01/20/2025 Lab Requisition [facility] - Main Lab [address] [facility] [place] [address] Jeny Light MD [address] [facility] [address] [place] [address] Type 2 diabetes mellitus with foot ulcer (CODE) ([facility] V24, [facility] V28) Social History Tobacco Use Types Packs/Day [...] AM EDT Office Visit Orthopedic Surgery - [place] [phone] [address] Miguel A Villegas, DESHAWN [address] [address] documented as of this encounter Procedures Procedure Name Priority Date/Time Associated Diagnosis Comments SST - GOLD Routine 01/20/2025 2:30 PM EDT Type 2 diabetes mellitus with foot ulcer (CODE) (CMS/HCC V24, CMS/[facility] V28) CBC WITH AUTO DIFFERENTIAL Routine 01/20/2025 2:30 PM EDT Type 2 diabetes mellitus with foot ulcer (CODE) (CMS/HCC V24, CMS/HCC V28) CBC AND DIFFERENTIAL Routine 01/20/2025 2:30 PM EDT Type 2 diabetes mellitus with foot ulcer (CODE) ([facility] V24, [facility] V28) VANCOMYCIN, TROUGH Routine 01/20/2025 2: 30 PM EDT Type 2 diabetes mellitus with foot ulcer (CODE) ([facility] V24, [facility] V28) BASIC METABOLIC PANEL Routine 01/20/2025 2:30 PM EDT Type 2 diabetes mellitus with foot ulcer (CODE) ([facility] V24, [facility] V28) documented in this encounter Results * SST tube (01/20/2025 2:30 PM EDT) [facility] Extra Tube Hold for add-ons. 01/20/2025 4:01 PM EDT [facility] Comment:Auto resulted. Blood Venous blood specimen / Unknown 01/20/2025 2:30 PM EDT 01/20/2025 2:58 PM EDT us Jeny Light MD LAB BLOOD ORDERABLES Final Resul t [facility] [address] [place] [address], * (ABNORMAL) CBC auto differential (01/20/2025 2:30 PM EDT) [facility] WBC 9.7 4.8 - 10.8 K/mcL LAB HEMETOLOGY METHOD 01/20/2025 3:39 PM EDT [facility] RBC 2.80(L) 4.50 - 5.50 M/mcL LAB HEMETOLOGY METHOD 01/20/2025 3:39 PM EDT [facility] Hemoglobin 7.8(L) 13.5 - 17.5 g/dL LAB HEMETOLOGY METHOD 01/20/2025 3:39 PM EDT [facility] Hematocrit 24.1(L) 42.0 - 54.0 % LAB HEMETOLOGY METHOD 01/20/2025 3:39 PM EDT [facility] MCV 85.2 79.0 - 98.0 FL LAB HEMETOLOGY METHOD [facility]/20[facility]25 [facility] MCH 27.6 27.0 - 32.0 pcg LAB HEMETOLOGY METHOD 01/20/2025 3:39 PM [facility] MCHC 32.4 32.0 - 37.0 g/dL LAB HEMETOLOGY METHOD 01/20/2025 3:39 PM [facility] RDW 16.2(H) 11.0 - 15.0 % LAB HEMETOLOGY METHOD 01/20/2025 3:39 PM [facility] Platelets 360 130 - 400 K/mcL LAB HEMETOLOGY METHOD 01/20/2025 3:39 PM [facility] MPV 9.6 7.0 - 11.0 FL LAB HEMETOLOGY METHOD 01/20/2025 3:39 PM [facility] NRBC 0.0 <1.0 % LAB HEMETOLOGY METHOD 01/20/2025 3:39 PM [facility] NRBC Absolute 0.00 <0.10 K/mcL LAB HEMETOLOGY METHOD 01/20/2025 3:39 PM [facility] Neutrophils Relative 67.2 % LAB HEMETOLOGY METHOD 01/20/2025 3:39 PM [facility] Lymphocytes Relative 16.3 % LAB HEMETOLOGY METHOD 01/20/2025 3:39 PM [facility] Monocytes Relative 10.7 % LAB HEMETOLOGY METHOD 01/20/2025 3:39 PM [facility] Eosinophils Relative 4.7 % LAB HEMETOLOGY METHOD 01/20/2025 3:39 PM [facility] Basophils Relative 0.7 % LAB HEMETOLOGY METHOD 01/20/2025 3:39 PM EDT [facility] Immature Granulocytes Relative 0.4 % LAB HEMETOLOGY METHOD 01/20/2025 3:39 PM EDT [facility] Neutrophils Absolute 6.50 1.50 - 7.00 K/mcL LAB HEMETOLOGY METHOD 01/20/2025 3:39 PM EDT [facility] Lymphocytes Absolute 1.57 1.00 - 5.00 K/mcL LAB HEMETOLOGY METHOD 01/20/2025 3:39 PM EDT [facility] Monocytes Absolute 1.03(H) 0.20 - 1.00 K/mcL LAB HEMETOLOGY METHOD 01/20/2025 3:39 PM EDT [facility] Eosinophils Absolute 0.45 0.00 - 0.50 K/mcL LAB HEMETOLOGY METHOD 01/20/2025 3:39 PM EDT [facility] Basophils Absolute 0.07 0.00 - 0.20 K/mcL LAB HEMETOLOGY METHOD 01/20/2025 3:39 PM EDT [facility] Immature Granulocytes Absolute 0.04(H) 0.00 - 0.03 K/mcL LAB HEMETOLOGY METHOD 01/20/2025 3:39 PM EDT [facility] Blood Venous blood specimen / Unknown 01/20/2025 2:30 PM EDT 01/20/2025 2:58 PM EDT us Jeny Light MD LAB BLOOD ORDERABLES Final Resul t [facility] [address] [place] [address], * Vancomycin, trough (01/20/2025 2:30 PM EDT) Vancomycin Trough 17.2 10.0 - 20.0 mcg/mL LAB CHEMISTRY METHOD 01/20/2025 4:10 PM [facility] Blood Venous blood specimen / Unknown 01/20/2025 2:30 PM EDT 01/20/2025 2:58 PM EDT us Jeny Light MD LAB BLOOD ORDERABLES Final Resul t [facility] [address] [place] [address], [place] [phone] * (ABNORMAL) Basic metabolic panel (01/20/2025 2:30 PM EDT) Sodium 137 133 - 145 mmol/L LAB CHEMISTRY METHOD 01/20/2025 4:10 PM [facility] Potassium 4.0 3.5 - 5.5 mmol/L LAB CHEMISTRY METHOD 01/20/2025 4:10 PM [facility] Comment:Hemolysis present Chloride 106 96 - 110 mmol/L LAB CHEMISTRY METHOD 01/20/2025 4:10 PM [facility] CO2 22 21 - 32 mmol/L LAB CHEMISTRY METHOD 01/20/2025 4:10 PM [facility] Anion Gap 9 3 - 11 LAB CHEMISTRY METHOD 01/20/2025 4:10 PM [facility] Glucose 183(H) 70 - 100 mg/dL LAB CHEMISTRY METHOD 01/20/2025 4:10 PM [facility] BUN 20 5 - 25 mg/dL LAB CHEMISTRY METHOD 01/20/2025 4:10 PM [facility] Creatinine 1.67(H) 0.70 - 1.30 mg/dL LAB CHEMISTRY METHOD 01/20/2025 4:10 PM [facility] eGFR 49(L) >=60 mL/min/1. 73m2 LAB CHEMISTRY METHOD 01/20/2025 4:10 PM [facility] Comment:Calculation based on the??Chronic Kidney Disease Epidemiology Collaboration (CKD-EPI) equation refit??without adjustment for race. BUN/Creatinine Ratio 12.0 LAB CHEMISTRY METHOD 01/20/2025 4:10 PM EDT [facility] Calcium 8.6 8.5 - 10.5 mg/dL LAB CHEMISTRY METHOD 01/20/2025 4:10 PM EDT [facility] Blood Venous blood specimen / Unknown 01/20/2025 2:30 PM EDT 01/20/2025 2:58 PM EDT us Jeny Light MD LAB BLOOD ORDERABLES Final Resul t [facility] [address] [place] [address], [place] [phone] documented in this encounter Visit Diagnoses Diagnosis Type 2 diabetes mellitus with foot ulcer (CODE) ([facility] V24, [facility] V28) documented in this encounter Additional Health Concerns Infection Onset Date Last Indicated Resolved Time MRSA 12/26/2024 12/29/2024 documented as of this encounter Care Teams Community Support Worker Relationship Specialty Start Date End Date Fredy Adair PA [address] [place] [address] PCP - General Internal Medicine 10/09/21 documented as of this encounter
--- OUTSIDE RECORDS SUMMARY | 2025-01-27 08:47 | XMS_ITS | Clinical Summary ---
Author Organization [facility] Address [address] [place] [address] Phone Care Team Providers Care Miscellaneous Machine Operator Name Role Phone Fredy Adair Primary Care Provider [phone] Medications omeprazole (PriLOSEC) [address] capsule [...] Phone Billing Address Personal/Family Self [address] ([id number]) OL[place] LIDIA [place]UL[place] [address] [facility] ([id number]) [place] [address] Care Teams Miscellaneous Machine Operator Relationship Specialty Start Date End Date Fredy Adair PA [address] [place] [address], [address] [place] [address] PCP - General Physician Garage Door Installer 03/13/23
--- OUTSIDE RECORDS SUMMARY | 2025-01-27 08:47 | XMS_ITS | Encounter Summary ---
Author Organization [place] [address] Care Team Providers Care Ramp Attendant Name Role Phone Fredy Adair Primary Care Provider [phone] Encounter Details Date Type Department Care Team (Late st Contact Info) Description 01/04/[address] [facility] - Main Lab [address] [place] [address] Nkechi Salazar PA [address] [place] [address] Essential (primary) hypertension Social History Tobacco Use [...] AM EDT Office Visit Orthopedic Surgery - [place] [address] [address] Miguel A Villegas, DPM [address] [address] documented as of this encounter Procedures Procedure [...] Hold for add-ons. 01/04/2025 7:01 PM EDT [facility] Comment:Auto resulted. Blood Venous blood specimen / Unknown 01/04/2025 3:45 PM EDT 01/04/2025 5:51 PM EDT Nkechi DUGGAN LAB BLOOD ORDERABLES Final Result [facility] [address] [place] [address], * (ABNORMAL) CBC auto differential (01/04/2025 3:45 PM EDT) WBC 9.7 4.8 - 10.8 K/mcL LAB HEMETOLOGY METHOD 01/04/2025 6:41 PM EDT [facility] RBC 2.90(L) 4.50 - 5.50 M/mcL LAB HEMETOLOGY METHOD 01/04/2025 6:41 PM EDT [facility] Hemoglobin 8.1(L) 13.5 - 17.5 g/dL LAB HEMETOLOGY METHOD 01/04/2025 6:41 PM EDT [facility] Hematocrit 26.4(L) 42.0 - 54.0 % LAB HEMETOLOGY METHOD 01/04/2025 6:41 PM EDT [facility] MCV 89.8 79.0 - 98.0 FL LAB HEMETOLOGY METHOD 01/04/2025 6:41 PM EDT [facility] MCH 27.6 27.0 - 32.0 pcg LAB HEMETOLOGY METHOD 01/04/2025 6:41 PM EDT [facility] MCHC 30.7(L) 32.0 - 37.0 g/dL LAB HEMETOLOGY METHOD 01/04/2025 6:41 PM EDT [facility] RDW 15.7(H) 11.0 - 15.0 % LAB HEMETOLOGY METHOD 01/04/2025 6:41 PM [facility] Platelets 608(H) 130 - 400 K/mcL LAB HEMETOLOGY METHOD 01/04/2025 6:41 PM [facility] MPV 9.7 7.0 - 11.0 FL LAB HEMETOLOGY METHOD 01/04/2025 6:41 PM [facility] NRBC 0.0 <1.0 % LAB HEMETOLOGY METHOD 01/04/2025 6:41 PM [facility] NRBC Absolute 0.00 <0.10 K/mcL LAB HEMETOLOGY METHOD 01/04/2025 6:41 PM [facility] Neutrophils Relative 73.6 % LAB HEMETOLOGY METHOD 01/04/2025 6:41 PM [facility] Lymphocytes Relative 14.2 % LAB HEMETOLOGY METHOD 01/04/2025 6:41 PM [facility] Monocytes Relative 5.9 % LAB HEMETOLOGY METHOD 01/04/2025 6:41 PM [facility] Eosinophils Relative 4.6 % LAB HEMETOLOGY METHOD 01/04/2025 6:41 PM [facility] Basophils Relative 1.2 % LAB HEMETOLOGY METHOD 01/04/2025 6:41 PM [facility] Immature Granulocytes Relative 0.5 % LAB HEMETOLOGY METHOD 01/04/2025 6:41 PM [facility] Neutrophils Absolute 7.11(H) 1.50 - 7.00 K/mcL LAB HEMETOLOGY METHOD 01/04/2025 6:41 PM [facility] Lymphocytes Absolute 1.37 1.00 - 5.00 K/mcL LAB HEMETOLOGY METHOD 01/04/2025 6:41 PM [facility] Monocytes Absolute 0.57 0.20 - 1.00 K/mcL LAB HEMETOLOGY METHOD 01/04/2025 6:41 PM EDT [facility] Eosinophils Absolute 0.44 0.00 - 0.50 K/mcL LAB HEMETOLOGY METHOD 01/04/2025 6:41 PM EDT [facility] Basophils Absolute 0.12 0.00 - 0.20 K/mcL LAB HEMETOLOGY METHOD 01/04/2025 6:41 PM EDT [facility] Immature Granulocytes Absolute 0.05(H) 0.00 - 0.03 K/mcL LAB HEMETOLOGY METHOD 01/04/2025 6:41 PM EDT [facility] Blood Venous blood specimen / Unknown 01/04/2025 3:45 PM EDT 01/04/2025 5:51 PM EDT Nke[facility] DUGGAN LAB BLOOD ORDERABLES Final Result [facility] [address] [place] [address], documented in this encounter Visit Diagnoses Diagnosis Essential (primary) hypertension Unspecified essential hypertension documented in this encounter Additional Health Concerns Infection Onset Date Last Indicated Resolved Time MRSA 12/26/2024 12/29/2024 documented as of this encounter Care Teams Ramp Attendant Relationship Specialty Start Date End Date Fredy Adair PA [address] [place] [phone] PCP - General Internal Medicine 10/09/21 documented as of this encounter
--- OUTSIDE RECORDS SUMMARY | 2025-01-27 08:47 | XMS_ITS | Encounter Summary ---
Author [place] [address] Care Team Providers Care Hand Stripper Name Role Phone Fredy Adair Primary Care Provider [phone]- [phone] Encounter Details Date Type Department Care Team (Late st Contact Info) Description 01/06/[address] [facility] - Main Lab [address] [facility] [place] [address] Jeny Light MD 175 [facility] [address] [place] [address] Encounter for therapeutic drug level monitoring Social [...] AM EDT Office Visit Orthopedic Surgery - [place] [address] [phone] Miguel A Villegas, DPMadhu [address] [address] documented as of this encounter Procedures Procedure [...] Hold for add-ons. 01/06/2025 6:01 PM EDT [facility] Comment:Auto resulted. Blood Venous blood specimen / Unknown 01/06/2025 4:15 PM EDT 01/06/2025 4:49 PM EDT us Jeny Light MD LAB BLOOD ORDERABLES Final Resul t Performing Organization Address City/[facility]/ZIP Co de Phone Number [facility] [address] [place] [address], [place] [phone] * Vancomycin, trough (01/06/2025 4:15 PM EDT) [facility] Vancomycin Trough 19.1 10.0 - 20.0 mcg/mL LAB CHEMISTRY METHOD 01/06/2025 5:34 PM EDT [facility] Blood Venous blood specimen / Unknown 01/06/2025 4:15 PM EDT 01/06/2025 4:49 PM EDT us Jeny Light MD LAB BLOOD ORDERABLES Final Resul t Performing Organization Address [facility]/ZIP Co de Phone Number [facility] [address] [place] [address], [place] [phone] * (ABNORMAL) Basic metabolic panel (01/06/2025 4:15 PM EDT) Pathologist [facility] Sodium 140 133 - 145 mmol/L LAB CHEMISTRY METHOD 01/06/2025 5:33 PM EDT [facility] Potassium 4.1 3.5 - 5.5 mmol/L LAB CHEMISTRY METHOD 01/06/2025 5:33 PM EDT [facility] Chloride 111(H) 96 - 110 mmol/L LAB CHEMISTRY METHOD 01/06/2025 5:33 PM EDT [facility] CO2 21 21 - 32 mmol/L LAB CHEMISTRY METHOD 01/06/2025 5:33 PM EDT [facility] Anion Gap 8 3 - 11 LAB CHEMISTRY METHOD 01/06/2025 5:33 PM EDT [facility] Glucose 213(H) 70 - 100 mg/dL LAB CHEMISTRY METHOD 01/06/2025 5:33 PM EDT [facility] BUN 22 5 - 25 mg/dL LAB CHEMISTRY METHOD 01/06/2025 5:33 PM EDT [facility] Creatinine 1.62(H) 0.70 - 1.30 mg/dL LAB CHEMISTRY METHOD 01/06/2025 5:33 PM EDT [facility] eGFR 51(L) >=60 mL/min/1. 73m2 LAB CHEMISTRY METHOD 01/06/2025 5:33 PM EDT [facility] Comment:Calculation based on the??Chronic Kidney Disease Epidemiology Collaboration (CKD-EPI) equation refit??without adjustment for race. BUN/Creatinine Ratio 13.6 LAB CHEMISTRY METHOD 01/06/2025 5:33 PM EDT [facility] Calcium 8.8 8.5 - 10.5 mg/dL LAB CHEMISTRY METHOD 01/06/2025 5:33 PM EDT [facility] Blood Venous blood specimen / Unknown 01/06/2025 4:15 PM EDT 01/06/2025 4:49 PM EDT us Jeny Light MD LAB BLOOD ORDERABLES Final Resul t [facility] [address] [place] [address], documented in this encounter Visit Diagnoses Diagnosis Encounter for therapeutic drug level monitoring documented in this encounter Additional Health Concerns Infection Onset Date Last Indicated Resolved Time MRSA 12/26/2024 12/29/2024 documented as of this encounter Care Teams Hand Stripper Relationship Specialty Start Date End Date Fredy Adair PA [address] [place] [phone] PCP - General Internal Medicine 10/09/21 documented as of this encounter
--- OUTSIDE RECORDS SUMMARY | 2025-01-27 08:47 | XMS_ITS | Encounter Summary ---
Author Organization [facility] [place] [address] Care Team Providers Care Md Do [facility] Name Role Phone Fredy Adair Primary Care Provider [phone]- [phone] Encounter Details Date Type Department Care Team (Late st Contact Info) Description 01/13/2025 Lab Requisition [facility] - Main Lab 299 [facility] [place] [address] Jeny Light MD 175 [facility] [address] [place] [address] Encounter for therapeutic drug level monitoring Social [...] AM EDT Office Visit Orthopedic Surgery - [place] [address] [phone] Miguel A Villegas, DPM [address] [address] documented as of this encounter Procedures Procedure [...] Hold for add-ons. 01/13/2025 6:01 PM EDT [facility] Comment:Auto resulted. Blood Venous blood specimen / Unknown 01/13/2025 3:45 PM EDT 01/13/2025 4:34 PM EDT us Jeny Light MD LAB BLOOD ORDERABLES Final Resul t Performing Organization Address [facility]/ZIP Co de Phone Number [facility] [address] [place] [address], [place] [phone] * SST tube (01/13/2025 3:45 PM EDT) Extra Tube Hold for add-ons. 01/13/2025 6:01 PM EDT [facility] Comment:Auto resulted. Blood Venous blood specimen / Unknown 01/13/2025 3:45 PM EDT 01/13/2025 4:34 PM EDT us Jeny Light MD LAB BLOOD ORDERABLES Final Resul t Performing Organization Address [facility]/ZIP Co de Phone Number [facility] [address] [place] [address], [place] [phone] * (ABNORMAL) Basic metabolic panel (01/13/2025 3:45 PM EDT) Sodium 137 133 - 145 mmol/L LAB CHEMISTRY METHOD 01/13/2025 5:13 PM EDT [facility] Potassium 3.9 3.5 - 5.5 mmol/L LAB CHEMISTRY METHOD 01/13/2025 5:13 PM EDT [facility] Chloride 109 96 - 110 mmol/L LAB CHEMISTRY METHOD 01/13/2025 5:13 PM EDT [facility] CO2 21 21 - 32 mmol/L LAB CHEMISTRY METHOD 01/13/2025 5:13 PM EDT [facility] Anion Gap 7 3 - 11 LAB CHEMISTRY METHOD 01/13/2025 5:13 PM EDT [facility] Glucose 180(H) 70 - 100 mg/dL LAB CHEMISTRY METHOD 01/13/2025 5:13 PM EDT [facility] BUN 21 5 - 25 mg/dL LAB CHEMISTRY METHOD 01/13/2025 5:13 PM EDT [facility] Creatinine 1.47(H) 0.70 - 1.30 mg/dL LAB CHEMISTRY METHOD 01/13/2025 5:13 PM EDT [facility] eGFR 57(L) >=60 mL/min/1. 73m2 LAB CHEMISTRY METHOD 01/13/2025 5:13 PM EDT [facility] Comment:Calculation based on the??Chronic Kidney Disease Epidemiology Collaboration (CKD-EPI) equation refit??without adjustment for race. BUN/Creatinine Ratio 14.3 LAB CHEMISTRY METHOD 01/13/2025 5:13 PM T [facility] Calcium 8.4(L) 8.5 - 10.5 mg/dL LAB CHEMISTRY METHOD 01/13/2025 5:13 PM [facility] Blood Venous blood specimen / Unknown 01/13/2025 3:45 PM EDT 01/13/2025 4:33 PM EDT us Jeny Light MD LAB BLOOD ORDERABLES Final Resul t [facility] [address] [place] [address], * Vancomycin, trough (01/13/2025 3:45 PM EDT) Vancomycin Trough 18.0 10.0 - 20.0 mcg/mL LAB CHEMISTRY METHOD 01/13/2025 5:13 PM EDT [facility] Blood Venous blood specimen / Unknown 01/13/2025 3:45 PM EDT 01/13/2025 4:33 PM EDT us Jeny Light MD LAB BLOOD ORDERABLES Final Resul t [facility] ([facility]) [facility] [address] [place] [address], documented in this encounter Visit Diagnoses Diagnosis Encounter for therapeutic drug level monitoring documented in this encounter Additional Health Concerns Infection Onset Date Last Indicated Resolved Time MRSA 12/26/2024 12/29/2024 documented as of this encounter Care Teams Md Do Resident Urgent Care Relationship Specialty Start Date End Date Fredy Adair PA [address] [place] [phone] PCP - General Internal Medicine 10/09/21 documented as of this encounter
--- OUTSIDE RECORDS SUMMARY | 2025-01-27 08:47 | XMS_ITS | Clinical Summary ---
Author Organization [facility] Address [address] [place] [address] Phone Care Team Providers Care Water Control Supervisor Name Role Phone Fredy Adair Primary Care Provider [phone] Allergies No known active allergies Medications amLODIPine [...] 12/28/2024 Foot ulcer due to secondary DM ([facility] V24, [facility] V28) 12/27/2024 Type 2 diabetes mellitus wit h circulatory disorder ([facility] V24, [facility] V28) 12/27/2024 Vascular problem 12/27/2024 Chronic renal impairment, 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) ([facility] V24, [facility] V28) 12/27/2024 Peripheral vascular disease ([facility] V24) 2023 Iron (Fe) deficiency anemia 02/11/2021 Hyperlipidemia 01/11/2021 Diabetes mellitus type 2 wit h peripheral artery disease ([facility] V24, [facility] V28) 10/31/2020 Hypertension 02/10/2020 Tobacco use disorder 01/31/2019 CHF (congestive heart failure) ([facility] V24, [place] [id number]) Encounters Date Type Department Care Team Description 01/20/2025 Lab Requisition [facility] [address] [facility] [place] [phone] Jeny Light MD Type 2 diabetes mellitus with foot ulcer (CODE) ([facility] V24, [facility] V28) 01/19/2025 9:15 AM EDT Office Visit Orthopedic Surgery [facility] [address] [phone] Miguel A Villegas DPM Localized edema (Primary Dx); Controlled type 2 diabetes with neuropathy ([facility] V24, [facility] V28) 01/13/2025 Lab Requisition [facility] [address] [facility] [place] [phone] Jeny Light MD Encounter for therapeutic drug level monitoring 01/12/2025 9:30 AM EDT Office Visit Orthopedic Surgery [facility] [address] [phone] Miguel A Villegas DPM History of amputation of left foot through metatarsal bone ([facility] V24, [facility] V28) (Primary Dx); Dehiscence of operative wound, subsequent encounter; Ulcer of heel and midfoot, left, with fat layer exposed ([facility] V24, [facility] V28) 01/09/2025 Telephone Infectious Disease - [address] [place] [phone] Jerilyn Short, MILLI 01/06/2025 Lab Requisition [facility] [address] [place] [address] Jeny Light MD Encounter for therapeutic drug level monitoring 01/06/2025 Telephone Orthopedic Surgery [facility] [address] [phone] Daria Maher RN 01/05/2025 9:00 AM EDT Office Visit Orthopedic [facility] [address] [phone] Miguel A Villegas, DESHAWN History of amputation of left foot through metatarsal bone ([facility] V24, [facility] V28) (Primary Dx); Cellulitis of left foot; Surgical wound dehiscence, initial encounter; Ulcer of heel and midfoot, left, with fat layer exposed ([facility] V24, [facility] V28) 01/04/2025 Lab Requisition [facility] [address] [place] [phone] Nkechi Salazar PA Essential (primary) hypertension 12/30/2024 12:43 PM EDT Anesthesia Event [facility] Cardiac Acquisition Marketing Coordinator [address] [place] [phone] Guero Reyes MD Steele, Matthew G, CRNA 12/30/2024 12:37 PM EDT - 12/30/2024 11:59 PM EDT Hospital Encounter [facility] Cardiac Acquisition Marketing Coordinator [address] [place] [phone] Josue Gleason MD Gomes, Sheldon B, MD Bacteremia (Primary Dx) Discharge Disposition: Home or Self Care 12/29/2024 4:16 PM EDT Anesthesia Event [facility] Main OR [address] [place] [phone] Casey Salgado MD Abrokwah, Foster Myles G, CRNA 12/29/2024 4:06 PM EDT - 12/29/2024 5:36 PM EDT Surgery [facility] OR [address] [place] [phone] Miguel A Villegas DPM LEFT FOOT SECONDARY WOUND CLOSURE, ANTIBIOTIC BEADS 12/27/2024 4:06 PM EDT Anesthesia Event [facility] OR [address] [place] [phone] Nereyda Fall MD 12/27/2024 4:00 PM EDT - 12/27/2024 5:30 PM EDT Surgery [facility] OR [address] [place] [phone] Miguel A Villegas DPM I&D bone left foot 12/26/2024 9:50 PM EDT - 12/31/2024 3:32 PM EDT Hospital Encounter [facility] Urology Unit [address] [place] [phone] Otto Levine MD Alam, MD Shahram Mendez Priya, MD Seralathan, Manikandan, MD MRSA bacteremia (Primary Dx); Type 2 diabetes mellitus with left diabetic foot infection ([facility] V24, [facility] V28); Foot ulcer due to secondary DM ([facility] V24, [facility] V28); Abscess of right foot; Infection Discharge Disposition: Home-Health Care [facility] 12/26/2024 3:15 PM EDT Office Visit Orthopedic Surgery [facility] [address] [phone] Miguel A Villegas DPM History of amputation of left foot through metatarsal bone ([facility] V24, [facility] V28) (Primary Dx); Cellulitis of left foot; Abscess of tendon of foot, left; Ulcer of left heel, with necrosis of bone ([facility] V24, [facility] V28) 12/26/2024 Telephone Orthopedic Surgery [facility] [address] [phone] Miguel A Villegas DPM Wound 12/22/2024 8:15 AM EDT Office Visit Orthopedic Surgery [address] [phone] Miguel A Villegas DPMadhu Controlled type 2 diabetes with neuropathy ([facility] V24, [facility] V28) (Primary Dx); History of amputation of left foot through metatarsal bone ([facility] V24, [facility] V28); Ulcer of heel and midfoot, left, with fat layer exposed ([facility] V24, [facility] V28); Cellulitis of left foot 11/22/2024 8:45 AM EST Office Visit Orthopedic Surgery [facility] [address] [phone] Miguel A Villegas DPMadhu Controlled type 2 diabetes with neuropathy ([facility] V24, [facility] V28) (Primary Dx); History of amputation of left foot through metatarsal bone ([facility] V24, [facility] V28); Ulcer of heel and midfoot, left, with fat layer exposed ([facility] V24, [facility] V28) from Last 3 Months Surgical History Surgery Date Site/Laterality Comments ANGIOPLASTY 2019 Right PROCEDURE: HISTORICAL ANGIOPLASTY W/STENT; COMMENT: leg BYPASS GRAFT 11/05/2020 Right PROCEDURE: ND AMPUTATION TOE METATARSOPHALANGEAL JOINT; COMMENT: 4 th toe OTHER SURGICAL HISTORY 04/18/2024 Right PROCEDURE: ND I&D BELOW FASCIA FOOT MULTIPLE AREAS OTHER SURGICAL HISTORY 04/18/2024 Right PROCEDURE: ND INCISION BONE CORTEX FOOT OTHER SURGICAL HISTORY 04/20/2024 Right PROCEDURE: ND AMPUTATION LEG THROUGH TIBIA&FIBULA Medical History Medical History Date Comments Uncontrolled diabetes mellitus D X:Uncontrolled diabetes mellitus Normocytic anemia DX:Normocytic anemia; COMMENT: Herbert 01/2021 Peripheral vascular disease ([facility] V24) DX:Peripheral vascular disease (HCC) Esophageal reflux DX:Esophageal reflux Anemia DX:Anemia Hyperlipidemia DX:Hyperlipidemi a Essential hypertension DX:Essent ial hypertension History of tobacco abuse DX:Hist ory of tobacco abuse CHF (congestive heart failur e) ([facility] V24, [facility] V28) Reduced EF 40-45% Family [...] AM EDT Office Visit Orthopedic Surgery - [place] [address] [phone] Miguel A Villegas DPM 175 [facility] Shane [address] [place] [phone] Health Maintenance Due Date Last Done Comments [...] this topic Medical Devices Implanted Type Area Karate Instructor Device Identifier Shelf Expiration Date Model / Serial / Lot Rickey Robins 10ml - Sn/A - [id number] Implanted:Qty : 1 on 12/29/2024 by Miguel A Villegas DPM at [facility] [employer] Left: Foot [employer] [facility] [id number] 05/28/2026 620-010 / N/A / [id number] Procedures Procedure Name Priority Date/Time Associated Diagnosis [...] CULTURE BLOOD STAT 12/26/2024 10:40 PM EDT [id number], RSV, FLU A AND B QUALITATIVE RT-PCR, [...] Hold for add-ons. 01/20/2025 4:01 PM EDT [facility] Comment:Auto resulted. Blood Venous blood specimen / Unknown 01/20/2025 2:30 PM EDT 01/20/2025 2:58 PM EDT us Jeny Light MD LAB BLOOD ORDERABLES Final Resul t [facility] [address] [place] [address], [place] [phone] * (ABNORMAL) CBC auto differential (01/20/2025 2:30 PM EDT) Only the most recent of7 resultswithin the time period is included. [facility] WBC 9.7 4.8 - 10.8 K/mcL LAB HEMETOLOGY [facility] RBC 2.80(L) 4.50 - 5.50 M/mcL LAB HEMETOLOGY METHOD 01/20[facility] Hemoglobin 7.8(L) 13.5 - 17.5 g/dL LAB HEMETOLOGY METHOD 01/20[facility]25 [facility] Hematocrit 24.1(L) 42.0 - 54.0 % LAB HEMETOLOGY METHOD 01/20/2025 3:[address] [facility] MCV 85.2 79.0 - 98.0 FL LAB HEMETOLOGY METHOD 01/20[facility]2025 [facility] MCH 27.6 27.0 - 32.0 pcg LAB HEMETOLOGY METHOD 01/20/2025 3:[address] [facility] MCHC 32.4 32.0 - 37.0 g/dL LAB HEMETOLOGY METHOD 01/20/2025 3:[address] [facility] RDW 16.2(H) 11.0 - 15.0 % LAB HEMETOLOGY METHOD 01/20/2025 3:[address] [facility] Platelets 360 130 - 400 K/mcL LAB HEMETOLOGY METHOD 01/20/2025 3:[address] [facility] MPV 9.6 7.0 - 11.0 FL LAB HEMETOLOGY METHOD 01/20[facility]2025 [facility] NRBC 0.0 <1.0 % LAB HEMETOLOGY METHOD 01/20/2025 3:39 PM EDT [facility] NRBC Absolute 0.00 <0.10 K/mcL LAB HEMETOLOGY METHOD 01/20/2025 3:[address] [facility] Neutrophils Relative 67.2 % LAB HEMETOLOGY METHOD 01/20/2025 3:[address] [facility] Lymphocytes Relative 16.3 % LAB HEMETOLOGY METHOD 01/20/2025 3:[address] [facility] Monocytes Relative 10.7 % LAB HEMETOLOGY METHOD 01/20/2025 3:[address] [facility] Eosinophils Relative 4.7 % LAB HEMETOLOGY METHOD 01/20/2025 3:[address] [facility] Basophils Relative 0.7 % LAB HEMETOLOGY METHOD 01/20/2025 3:[address] [facility] Immature Granulocytes Relative 0.4 % LAB HEMETOLOGY METHOD 01/20/2025 3:[address] [facility] Neutrophils Absolute 6.50 1.50 - 7.00 K/mcL LAB HEMETOLOGY METHOD 01/20/2025 3:[address] [facility] Lymphocytes Absolute 1.57 1.00 - 5.00 K/mcL LAB HEMETOLOGY METHOD 01/20/2025 3:[address] [facility] Monocytes Absolute 1.03(H) 0.20 - 1.00 K/mcL LAB HEMETOLOGY METHOD 01/20/2025 3:[address] [facility] Eosinophils Absolute 0.45 0.00 - 0.50 K/mcL LAB HEMETOLOGY METHOD 01/20/2025 3:[address] [facility] Basophils Absolute 0.07 0.00 - 0.20 K/mcL LAB HEMETOLOGY METHOD 01/20/2025 3:[address] [facility] Immature Granulocytes Absolute 0.04(H) 0.00 - 0.03 K/mcL LAB HEMETOLOGY METHOD 01/20/2025 3:39 PM EDT [facility] Blood Venous blood specimen / Unknown 01/20/2025 2:30 PM EDT 01/20/2025 2:58 PM EDT us Jeny Light MD LAB BLOOD ORDERABLES Final Resul t Performing Organization Address [facility] de Phone Number [facility] [address] [place] [address], [place] [phone] * Vancomycin, trough (01/20/2025 2:30 PM EDT) Only the most recent of5 resultswithin the time period is included. Vancomycin Trough 17.2 10.0 - 20.0 mcg/mL LAB CHEMISTRY METHOD 01/20/2025 4:10 PM EDT [facility] Blood Venous blood specimen / Unknown 01/20/2025 2:30 PM EDT 01/20/2025 2:58 PM EDT us Jeny Light MD LAB BLOOD ORDERABLES Final Resul t Performing Organization Address [facility] de Phone Number [facility] [address] [place] [address], [place] [phone] * (ABNORMAL) Basic metabolic panel (01/20/2025 2:30 PM EDT) Only the most recent of9 resultswithin the time period is included. Sodium 137 133 - 145 mmol/L LAB CHEMISTRY METHOD 01/20/2025 4:10 PM EDT [facility] Potassium 4.0 3.5 - 5.5 mmol/L LAB CHEMISTRY METHOD 01/20/2025 4:10 PM EDT [facility] Comment:Hemolysis present Chloride 106 96 - 110 mmol/L LAB CHEMISTRY METHOD 01/20/2025 4:10 PM EDT [facility] CO2 22 21 - 32 mmol/L LAB CHEMISTRY METHOD 01/20/2025 4:10 PM EDT [facility] Anion Gap 9 3 - 11 LAB CHEMISTRY METHOD 01/20/2025 4:10 PM T [facility] Glucose 183(H) 70 - 100 mg/dL LAB CHEMISTRY METHOD 01/20/2025 4:10 PM T [facility] BUN 20 5 - 25 mg/dL LAB CHEMISTRY METHOD 01/20/2025 4:[address] [facility] Creatinine 1.67(H) 0.70 - 1.30 mg/dL LAB CHEMISTRY METHOD 01/20/2025 4:[address] [facility] eGFR 49(L) >=60 mL/min/1. 73m2 LAB CHEMISTRY METHOD 01/20/2025 4:10 PM T [facility] Comment:Calculation based on the??Chronic Kidney Disease Epidemiology Collaboration (CKD-EPI) equation refit??without adjustment for race. BUN/Creatinine Ratio 12.0 LAB CHEMISTRY METHOD 01/20/2025 4:[address] [facility] Calcium 8.6 8.5 - 10.5 mg/dL LAB CHEMISTRY METHOD 01/20/2025 4:[address] [facility] Blood Venous blood specimen / Unknown 01/20/2025 2:30 PM EDT 01/20/2025 2:58 PM EDT us Jeny Light MD LAB BLOOD ORDERABLES Final Resul t [facility] [address] [place] [address], * Red tube (01/04/2025 3:45 PM EDT) Extra Tube Hold for add-ons. 01/04/2025 7:01 PM EDT [facility] Comment:Auto resulted. Blood Venous blood specimen / Unknown 01/04/2025 3:45 PM EDT 01/04/2025 5:51 PM EDT Nkechi DUGGAN LAB BLOOD ORDERABLES Final Result [facility] [address] [place] [address], [place] [phone] * XR Chest 1 View (12/31/2024 2:10 [...] Signed Date: 12/31/2024 14:28 ET Workstation ID: [id number] Transcribed By: Self Edit Transcribed Date: 12/31/2024 [...] Signed Date: 12/31/2024 14:28 ET Workstation ID: [id number] Transcribed By: Self Edit Transcribed Date: 12/31/2024 14:26 ET us Ramiro Wayne MD IMG XR PROCEDURES Final Result * (ABNORMAL) POCT Glucose, blood (12/31/2024 11:11 AM EDT) Only the most recent of19 resultswithin the time period is included. Glucose POCT 232(H) 70 - 100 mg/dL 12/31/2024 11:11 AM EDT [facility] Blood Capillary blood specimen / Unknown 12/31/2024 11:11 AM EDT 12/31/2024 11:13 AM EDT us Ramiro Wayne MD LAB POINT OF CA RE TEST DOCKED DEVICE UNSOLICITED RESULTS Final Result [facility] [address] [place] [address], [place] [phone] * Magnesium (12/31/2024 6:12 AM EDT) Only the most recent of5 resultswithin the time period is included. Magnesium 2.2 1.9 - 2.6 mg/dL LAB CHEMISTRY METHOD 12/31/2024 7:50 AM EDT [facility] Blood Blood sample taken from central line / Unknown Long-term Catheter / Unknown 12/31/2024 6:12 AM EDT 12/31/2024 6:47 AM EDT Nkechi Salazar PA LAB BLOOD ORDERABLES Final Result [facility] [address] [place] [address], [place] [phone] * Insert PICC line (12/30/2024 5:38 PM EDT) Narrative Jerilyn Francis RN - 12/30/2024 5:38 PM EDT Jerilyn Francis RN ? 12/30/2024 ??5:42 PM PICC Line Insertion Procedure Note Procedure: Insertion of 4F single lumen Bard PowerPICC Lot: [id number] Exp: 2025-08-27 Indications: ??Vancomycin until 01/24/2025 Procedure [...] obtained. The probe was inserted by the spinner continuous. There was no probe insertion difficulty. Topical [...] alternatives were discussed: yes ?Risks discussed: ??Bleeding [place] protocol: ??Procedure explained and questions answered to [...] and culture (12/30/2024 5:16 AM EDT) Specific [place] Urine 1.014 1.003 - 1.030 LAB URINALYSIS - AUTOMATED METHOD 12/30/2024 7:[address] [facility] pH, Urine 6.5 5.0 - 8.0 pH LAB URINALYSIS - AUTOMATED METHOD 12/30/2024 7:[address] [facility] Leukocytes, Urine Negative Negative LAB URINALYSIS - AUTOMATED METHOD 12/30/2024 7:[address] [facility] Nitrite, Urine Negative Negative LAB URINALYSIS - AUTOMATED METHOD 12/30/2024 7:[address] [facility] Protein, Urine 300(A) <=Trace mg/dL LAB URINALYSIS - AUTOMATED METHOD 12/30/2024 7:[address] [facility] Glucose, Urine 500(A) Negative mg/dL LAB URINALYSIS - AUTOMATED METHOD 12/30/2024 7:[address] [facility] Ketones, Urine Negative Negative mg/dL LAB URINALYSIS - AUTOMATED METHOD 12/30/2024 7:[address] [facility] Urobilinogen, Urine 0.2 0.2 - 1.0 mg/dL LAB URINALYSIS - AUTOMATED METHOD 12/30/2024 7:[address] [facility] Bilirubin, Urine Negative Negative LAB URINALYSIS - AUTOMATED METHOD 12/30/2024 7:[address] [facility] Blood, Urine Negative Negative LAB URINALYSIS - AUTOMATED METHOD 12/30/2024 7:[address] [facility] RBC, Urine 3.1 0 - 4 /HPF LAB URINALYSIS - AUTOMATED METHOD 12/30/2024 7:[address] [facility] WBC, Urine 1.0 0 - 4 /HPF LAB URINALYSIS - AUTOMATED METHOD 12/30/2024 7:[address] [facility] Squamous Epithelial, Urine 22 0 - 60 /LPF LAB URINALYSIS - AUTOMATED METHOD 12/30/2024 7:[address] [facility] Bacteria, Urine Negative Negative /HPF LAB URINALYSIS - AUTOMATED METHOD 12/30/2024 7:[address] [facility] Hyaline Casts, Urine 2.0 0 - 3 /LPF LAB URINALYSIS - AUTOMATED METHOD 12/30/2024 7:[address] [facility] Urine Urine specimen obtained by clean catch procedure / Unknown Non-blood Collection / Unknown 12/30/2024 5:16 AM EDT 12/30/2024 6:53 AM EDT us Nohemi Omalley MD LAB URINE ORDERABLES Final Resul t [facility] [address] [place] [address], [place] [phone] * Bowen urine culture tube (12/30/2024 5:16 AM EDT) Extra Tube Hold for add-ons. 12/30/2024 8:01 AM EDT [facility] Comment:Auto resulted. Urine Urine specimen obtained by clean catch procedure / Unknown Non-blood Collection / Unknown 12/30/2024 5:16 AM EDT 12/30/2024 6:53 AM EDT us Nohemi Omalley MD LAB URINE ORDERABLES Final Resul t [facility] [address] [place] [address], [place] [phone] * CT Chest/Abdomen/Pelvis wo Contrast (12/29/2024 9:21 [...] hernia. The bones are intact. Procedure Note eHtal Pino MD - 12/29/2024 INDICATION: MRSA bacteremia [...] Staphylococcus aureus(A) RENE 01/01/2025 10:20 AM T [facility] Comment: The organism value for this result has been updated. These results have been appended to the previously preliminary verified report. Edited result: Previously reported as Staphylococcus aureus on 12/31/2024 at 1038 EDT. Gram Stain Result No polymorphonuclear leukocytes, No epithelial cells, and No organisms noted 01/01/2025 10:20 AM T [facility] Swab Structure of left foot [...] GENERAL ORDERABLES Final Result Performing Organization Address [facility]/ZIP Co de Phone Number [facility] [address] [place] [address], * ECG 12 lead (12/29/2024 12:54 PM EDT) [facility] Signature Ventricular Rate ECG 88 BPM GEMUSE Atrial Rate 88 BPM GEMUSE P-R Interval 204 ms GEMUSE QRS Duration 82 ms GEMUSE Q-T Interval 380 ms GEMUSE QTc 459 ms GEMUSE P Wave [place] 45 degrees GEMUSE R [place] -28 degrees GEMUSE T [place] 91 degrees GEMUSE ECG Interpretation Normal sinus rhythm Nonspecific ST and T wave abnormality Abnormal ECG When compared with ECG of 19-APR-2024 09:41, No significant change was found Confirmed by Romie PINO YUFENG ([id number]) on 12/29/2024 7:41:58 PM GEMUSE 12/29/2024 12:5 4 PM EDT 12/29/2024 7:41 PM EDT us Nohemi Omalley MD ECG ORDERABLES Final Result Performing Organization Address City/[facility]/ZIP Co de Phone Number GEMUSE * (ABNORMAL) TRANSTHORACIC ECHOCARDIOGRAM (TTE) COMPLETE (12/29/2024 9:23 AM EDT) [facility] BSA 2.07 m2 CV PACS Left Atrium Minor [place] 6.3 cm CV PACS Left Atrium Major [place] 5.7 cm CV PACS LA Area Sys [...] LAB CHEMISTRY METHOD 12/28/2024 11:32 AM EDT [facility] Folate 11.7 2.8 - 17.0 ng/ml LAB CHEMISTRY METHOD 12/28/2024 11:32 AM EDT [facility] Blood Venous blood specimen / Unknown Venipuncture / Unknown 12/28/2024 9:57 AM EDT 12/28/2024 10:23 AM EDT us Nkechi DUGGAN LAB BLOOD ORDERABLES Final Result [facility] [address] [place] [address], [place] [phone] * (ABNORMAL) Iron and TIBC (12/28/2024 9:57 AM EDT) Pathologist [facility] Iron 18(L) 50 - 160 mcg/dL LAB CHEMISTRY METHOD 12/28/2024 11:09 AM EDT [facility] TIBC 184(L) 250 - 450 mcg/dL LAB CHEMISTRY METHOD 12/28/2024 11:09 AM EDT [facility] Iron Saturation 10(L) 20 - 50 % LAB CHEMISTRY METHOD 12/28/2024 11:09 AM EDT [facility] Blood Venous blood specimen / Unknown Venipuncture / Unknown 12/28/2024 9:57 AM EDT 12/28/2024 10:23 AM EDT us Nkechi DUGGAN LAB BLOOD ORDERABLES Final Result Performing Organization Address [facility]/ZIP Az de Phone Number [facility] [address] [place] [address], [place] [phone] * Type and screen (12/28/2024 9:57 AM EDT) [facility] ABO Group A 12/28/2024 11:13 AM EDT [facility] Rh Type Positive 12/28/2024 11:13 AM EDT [facility] Antibody Screen Negative 12/28/2024 11:13 AM EDT [facility] Blood Venous blood specimen / Unknown Venipuncture / Unknown 12/28/2024 9:57 AM EDT 12/28/2024 10:23 AM EDT [facility] BLOOD BANK TEST ORDERA BLES Final Result Performing Organization Address City/[facility]/ZIP Co de Phone Number [facility] [address] [place] [address], [place] [phone] * Ferritin (12/28/2024 9:57 AM EDT) Ferritin 76 26 - 388 ng/mL LAB CHEMISTRY METHOD 12/28/2024 11:09 AM EDT [facility] Blood Venous blood specimen / Unknown Venipuncture / Unknown 12/28/2024 9:57 AM EDT 12/28/2024 10:23 AM EDT [facility] LAB BLOOD ORDERABLES Final Result Performing Organization Address [facility]/ZIP Co de Phone Number [facility] [address] [place] [address], [place] [phone] * Prepare RBC: 1 Units (12/28/2024 9:03 AM EDT) [facility] Signature Product Code [id number] 12/28/2024 12:10 PM EDT [facility] Unit Number [id number] 12/29/19 12:10 PM EDT [facility] Crossmatch Compatible 12/28/2024 11:15 AM EDT [facility] Dispense Status Transfused 12/28/2024 12:10 PM EDT [facility] Unit ABO Rh APOS 12/28/2024 12:10 PM EDT [facility] Unit Expiration Date Time [id number] 12/28/2024 12:10 PM EDT [facility] Unit Blood Type 6200 12/28/2024 12:10 PM EDT [facility] Blood Venous blood specimen / Unknown 12/28/2024 9:03 AM EDT 12/28/2024 10:23 AM EDT us Nke[facility] BLOOD BANK PRODUCT ORDERAB LES Final Result Performing Organization Address [facility]/ZIP Co de Phone Number [facility] [address] [place] [address], [place] [phone] * Culture blood (12/28/2024 8:28 AM EDT) Only the most recent of4 resultswithin the time period is included. Culture, Blood No growth at 5 days 01/02/2025 9:01 AM EDT [facility] Blood Venous blood specimen / Unknown Venipuncture / Unknown 12/28/2024 8:28 AM EDT 12/28/2024 8:32 AM EDT us Nke[facility] LAB MICROBIOLOGY - GENERAL ORDERABLES Final Result Performing Organization Address City/[facility]/ZIP Co de Phone Number [facility] [address] [place] [address], [place] [phone] * (ABNORMAL) Reticulocyte count (12/28/2024 8:28 AM EDT) Retic Ct Abs 0.030 0.030 - 0.090 M/mcL LAB HEMETOLOGY METHOD 12/28/2024 11:05 AM EDT [facility] Retic Ct Pct 1.2 0.7 - 1.7 % LAB HEMETOLOGY METHOD 12/28/2024 11:[address] [facility] Immature Retic Fract 20.1(H) 2.3 - 15.9 % LAB HEMETOLOGY METHOD 12/28/2024 11:05 AM EDT [facility] Reticulocyte Hemoglobin 27.4(L) >29.0 pcg LAB HEMETOLOGY METHOD 12/28/2024 11:05 AM T [facility] Blood Venous blood specimen / Unknown Venipuncture / Unknown 12/28/2024 8:28 AM EDT 12/28/2024 8:33 AM EDT us Nke[facility] LAB BLOOD ORDERABLES Final Result [facility] [address] [place] [address], [place] [phone] * (ABNORMAL) MRSA molecular study (12/28/2024 8:02 AM EDT) Pathologist [facility] MRSA Screen PCR Detected (A) Not Detected LAB MICROBIOLOGY METHOD 12/28/2024 10:04 AM EDT [facility] Swab Both anterior nares / Unknown Non-blood Collection / Unknown 12/28/2024 8:02 AM EDT 12/28/2024 8:44 AM EDT Otto Levine MD LAB MICROBIOLOGY - GEN ERAL ORDERABLES Final Result [facility] [address] [place] [address], [place] [phone] * Tissue exam (12/27/2024 4:35 PM EDT) Pathologist [facility] Final Diagnosis A. Cuboid margin, left foot, [...] are not identified. 12/30/2024 10:44 AM EDT [facility] Gross Description A. Foot, Left, [...] two pieces. JOHN 12/30/2024 10:44 AM EDT [facility] Disclaimer Unless otherwise specified, all tissue is 10% NB formalin fixed and paraffin embedded. 12/30/2024 10:44 AM EDT [facility] Bone Structure of left foot / Unknown 12/27/2024 4:35 PM EDT 12/28/2024 5:13 AM EDT Specimen from bone (specimen) Structure of left foot / Unknown 12/27/2024 4:35 PM EDT 12/28/2024 5:13 AM EDT Miguel A Villegas DPMadhu LAB PATHOLOGY ORDERABLES Fi nal Result [facility] [address] [place] [address], [place] [phone] * TH AN LMA(NO CHARGE) (12/27/2024 4:20 [...] Signed Date: 12/27/2024 15:25 ET Workstation ID: [id number] Transcribed By: Self Edit Transcribed Date: 12/27/2024 [...] Signed Date: 12/27/2024 15:25 ET Workstation ID: [id number] Transcribed By: Self Edit Transcribed Date: 12/27/2024 15:14 ET us Otto Levine MD IMG MRI PROCEDURES Fin al Result * Prothrombin time with INR (12/27/2024 6:24 AM EDT) Protime 12.5 10.6 - 13.9 sec LAB COAGULATION METHOD 12/27/2024 6:59 AM EDT [facility] INR 1.0 LAB COAGULATION METHOD 12/27/2024 6:59 AM EDT [facility] Blood Venous blood specimen / Unknown Venipuncture / Unknown 12/27/2024 6:24 AM EDT 12/27/2024 6:25 AM EDT us Otto Levine MD LAB BLOOD ORDERABLES F inal Result [facility] [address] [place] [address], [place] [phone] * Lavender tube (12/27/2024 4:44 AM EDT) [facility] Extra Tube Hold for add-ons. 12/27/2024 7:01 AM EDT [facility] Comment:Auto resulted. Blood Venous blood specimen / Unknown Venipuncture / Unknown 12/27/2024 4:44 AM EDT 12/27/2024 5:40 AM EDT us Otto Levine MD LAB BLOOD ORDERABLES F inal Result Performing Organization Address City/[facility]/ZIP Co de Phone Number [facility] [address] [place] [address], [place] [phone] * Phosphorus (12/27/2024 4:44 AM EDT) [facility] Phosphorus 4.0 2.5 - 4.5 mg/dL LAB CHEMISTRY METHOD 12/27/2024 6:21 AM EDT [facility] Blood Venous blood specimen / Unknown Venipuncture / Unknown 12/27/2024 4:44 AM EDT 12/27/2024 5:26 AM EDT us Otto Levine MD LAB BLOOD ORDERABLES F inal Result Performing Organization Address City/[facility]/ZIP Co de Phone Number [facility] [address] [place] [address], [place] [phone] * (ABNORMAL) Hepatic function panel (12/27/2024 4:44 AM EDT) [facility] Total Protein 6.0 6.0 - 8.0 g/dL LAB CHEMISTRY METHOD 12/27/2024 6:25 AM EDT [facility] Albumin 1.7(L) 3.2 - 5.0 g/dL LAB CHEMISTRY METHOD 12/27/2024 6:25 AM EDT [facility] Total Bilirubin 0.2 0.0 - 1.4 mg/dL LAB CHEMISTRY METHOD 12/27/2024 6:25 AM EDT [facility] Bilirubin, Direct <0.1 0.0 - 0.3 mg/dL LAB CHEMISTRY METHOD 12/27/2024 6:25 AM EDT [facility] Bilirubin, Indirect LAB CHEMISTRY METHOD 12/27/2024 6:25 AM EDT [facility] Comment:Unable to calculate Indirect Bilirubin. ALT (SGPT) 16 10 - 60 unit/L LAB CHEMISTRY METHOD 12/27/2024 6:25 AM EDT [facility] AST (SGOT) 11 10 - 42 unit/L LAB CHEMISTRY METHOD 12/27/2024 6:25 AM EDT [facility] Alkaline Phosphatase 102 42 - 121 unit/L LAB CHEMISTRY METHOD 12/27/2024 6:25 AM EDT [facility] Blood Venous blood specimen / Unknown Venipuncture / Unknown 12/27/2024 4:44 AM EDT 12/27/2024 5:26 AM EDT us Otto Levine MD LAB BLOOD ORDERABLES F inal Result [facility] [address] [place] [address], [place] [phone] * XR Foot 3+ Views Left (12/26/2024 [...] Signed Date: 12/27/2024 08:24 ET Workstation ID: [id number] Transcribed By: Self Edit Transcribed Date: 12/27/2024 [...] Signed Date: 12/27/2024 08:24 ET Workstation ID: [id number] Transcribed By: Self Edit Transcribed Date: 12/27/2024 [...] Signed Date: 12/27/2024 08:01 ET Workstation ID: [id number] Transcribed By: Self Edit Transcribed Date: 12/27/2024 [...] Signed Date: 12/27/2024 08:01 ET Workstation ID: [id number] Transcribed By: Self Edit Transcribed Date: 12/27/2024 08:01 ET us Palm[facility] IMG XR PROCEDURES Final Resul t * Lactate, with reflex (12/26/2024 10:40 PM EDT) LACTIC ACID 0.8 0.4 - 2.0 mmol/L LAB CHEMISTRY METHOD 12/26/2024 11:16 PM EDT [facility] Blood Venous blood specimen / Unknown Venipuncture / Unknown 12/26/2024 10:40 PM EDT 12/26/2024 10:49 PM EDT [facility] LAB BLOOD ORDERABLES Final Re sult [facility] [address] [place] [address], [place] [phone] * (ABNORMAL) Blood culture pathogens molecular study (12/26/2024 10:40 PM EDT) [facility] Staphylococcus aureus Detected (A) Not Detected LAB MICROBIOLOGY METHOD 12/27/2024 7:55 PM EDT [facility] mecA/C and MREJ (MRSA) Detected (A) Not Detected LAB MICROBIOLOGY METHOD 12/27/2024 7:55 PM EDT [facility] Comment:mecA/C and MREJ Gene Detected: Indicates Methicillin Resistant Staphylococcus. Blood Venous blood specimen / Unknown Venipuncture / Unknown 12/26/2024 10:40 PM EDT 12/26/2024 10:48 PM EDT [facility] LAB MICROBIOLOGY - GENERAL OR DERABLES Final Result [facility] [address] [place] [address], [place] [phone] * [id number], RSV, Influenza A and B qualitative RT-PCR (12/26/2024 10:31 PM EDT) [facility] Influenza A PCR Not Detected Not Detected LAB MICROBIOLOGY METHOD 12/26/2024 11:32 PM EDT [facility] Influenza B PCR Not Detected Not Detected LAB MICROBIOLOGY METHOD 12/26/2024 11:32 PM EDT [facility] RSV PCR Not Detected Not Detected LAB MICROBIOLOGY METHOD 12/26/2024 11:32 PM EDT [facility] SARS COV-2 Not Detected Not Detected LAB MICROBIOLOGY METHOD 12/26/2024 11:32 PM EDT [facility] Swab Both anterior nares / Unknown Non-blood Collection / Unknown 12/26/2024 10:31 PM EDT 12/26/2024 10:48 PM EDT Narrative [facility] - 12/26/2024 11:32 PM EDT Disclaimer: ??Testing was performed using the [employer] GeneXpert Xpress SARS-CoV-2 _Flu_RSV PLUS PCR assay. [...] for Healthcare providers can be found at https://www.fda.gov/media/916471/download. ?? Fact sheet for Healthcare patients can be found at https://www.fda.gov/media/252339/download. [facility] LAB MICROBIOLOGY - GENERAL OR DERABLES Final Result [facility] [address] [place] [address], * (ABNORMAL) Culture wound with gram stain (12/26/2024 10:30 PM EDT) Culture, Wound Methicillin-Resistan t Staphylococcus aureus(A) RENE 12/29/2024 9:20 AM EDT [facility] Comment: Positive for PBP2a - indicative of MRSA The organism value for this result has been updated. These results have been appended to the previously preliminary verified report. Gram Stain Result Many Polymorphonuclear leukocytes(A) 12/29/2024 9:20 AM EDT [facility] Gram Stain Result No epithelial cells seen(A) 12/29/2024 9:20 AM EDT [facility] Gram Stain Result Many Gram positive cocci in clusters(A) 12/29/2024 9:20 AM EDT [facility] Drainage Structure of left foot [...] MICROBIOLOGY - GENERAL OR DERABLES Final Result [facility] [address] [place] [address], * (ABNORMAL) Sedimentation rate, automated (12/26/2024 7:21 PM EDT) Sed Rate 67(H) 0 - 20 mm/hr LAB HEMETOLOGY METHOD 12/26/2024 10:31 PM EDT [facility] Blood Venous blood specimen / Unknown Venipuncture / Unknown 12/26/2024 7:21 PM EDT 12/26/2024 8:05 PM EDT [facility] LAB BLOOD ORDERABLES Final Re sult Performing Organization Address [facility]/ZIP Co de Phone Number [facility] [address] [place] [address], [place] [phone] * (ABNORMAL) C-reactive protein (12/26/2024 7:21 PM EDT) [facility] C-Reactive Protein 9.30(H) <=0.50 mg/dL LAB CHEMISTRY METHOD 12/26/2024 10:36 PM EDT [facility] Blood Venous blood specimen / Unknown Venipuncture / Unknown 12/26/2024 7:21 PM EDT 12/26/2024 8:05 PM EDT [facility] LAB BLOOD ORDERABLES Final Re sult Performing Organization Address [facility] Co de Phone Number [facility] [address] [place] [address], [place] [phone] * (ABNORMAL) Hemoglobin A1c (05/17/2021) [facility] Hemoglobin A1C 8.7(A) <=6.5 % Blood Venous blood specimen / Unknown Historical Provider MD LAB BLOOD ORDERABLES Kimberlee l Result * (ABNORMAL) Lipid panel (05/17/2021) [facility] LDL/HDL Ratio 3 0 - 4 [...] Date Last Indicated MRSA 12/26/2024 12/29/2024 Insurance [facility] Member Subscriber Plan / Payer (Ef fective 2023-Present) Name:Irving Barry Relation to Subscriber:Self Name:Irving Barry Payer ID:[id number] Group ID:[id number] Type:Not on file Address: [place] [address] [address] [phone] Advance Directives Documents on File Type Date Recorded Patient Refrigerator Crater Expl anation Health Care Decision (hx) 04/26/2024 [...] Guardado Spouse Health Care Agent Care Teams Water Control Supervisor Relationship Specialty Start Date End Date Fredy Adair PA [address] [place] [address] PCP - General Internal Medicine 10/09/21
[2025-01-27 08:53] LABS: Glucose, Whole Blood 253 mg/dL (60-115)
[2025-01-27 09:13] VITALS: BP 149/82
== END 2025-01-27 09:16 | disposition home or self-care (01) ==
LOC: HO.ENCR 08:25
PROVIDERS: PCP Internal Medicine; Visit Provider Physician Assistant Medical
DX: E11.59 Type 2 diabetes mellitus with other circulatory complications (principal); R80.9 Proteinuria, unspecified

== ENCOUNTER → 2025-01-27 08:24 | Outpatient (BNVA) | payer OTHER, SELFPAY | PROVIDERS: PCP Internal Medicine; Visit Provider Physician Assistant Medical | DX: E11.51 Type 2 diabetes mellitus with diabetic peripheral angiopathy without gangrene (principal); E11.59 Type 2 diabetes mellitus with other circulatory complications; I25.10 Atherosclerotic heart disease of native coronary artery without angina pectoris; R80.9 Proteinuria, unspecified | CPT/HCPCS: 82947; 99212 ==

== ENCOUNTER 2025-02-10 08:30 | Outpatient (AMB) | payer OTHER, SELFPAY ==
--- NOTE | 2025-02-10 08:34 | MHC.OFFVIS ---
Vital Signs 02/10/25 08:37 Height 5 ft 8 in Weight 213 lb 10.047 oz BMI 32.5 BP 134/82 Blood Pressure Location Lt brachial Position Sitting Pulse 76 Pulse Source Pulse Oximeter Pulse Oximetry (%) 98 Oxygen Delivery Method Room Air Intake Visit Reasons: Type II diabetes Intake Note: Patient present today to follow up on Type 2 Diabetes Mellitus. Patient reports hyperglycemia throughout the day and is requesting for insulin to be increased. Last Diabetic Eye exam: Due Last Podiatry Visit: Does not see a [place] Supervisor Random Glucose: 359 mg/dl HgA1C: 8.2% 12/16/2024 Field Attendant Required: No Accompanied by: Self / Same As Patient Allergies No Known Allergies Allergy (Verified 02/10/25 08:37) HPI Comments Details: This is a 54-year-old male with a past medical history of type 2 diabetes, peripheral vascular disease and coronary artery disease presenting for diabetic management. He was diagnosed with diabetes about 13 years ago. He was hospitalized December 26 through 12/31/2024 for left foot ulcer with osteomyelitis complicated by MRSA infection. He had incision and drainage of the infected foot. He was treated with IV vancomycin. I reviewed the [employer] 3+ download CGM active 98% Average glucose 286 G HI 10.2% Glucose variability 25% Very high 65% High 30% Target range 5% 0% hypoglycemia. There is a pattern of hyperglycemia throughout the day with modest improvement mid day. Hemoglobin a1c 8.2% 12/16/2024. Current medication regimen: Trulicity 1.5 mg weekly, metformin 500 mg twice a day, Toujeo 10 units every evening, Humalog 4 units 3 times daily 15 minutes before meals. POC 359. Patient says he feels a little tired today, but he denies other symptoms including dizziness, nausea, vomiting, weakness, confusion, vision changes. He had a breakfast at [employer] before he came to the appointment. Past medication: Mounjaro discontinued when he switched Trulicity. Reported Mounjaro was not as effective for him. 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 Followed by Podiatry. Hyperlipidemia: treated with atorvastatin 40 mg Hypertension is treated with losartan, metoprolol and amlodipine. ROS: Constitutional: No unexplained weight loss, fever, chills or night sweats. Eyes: No vision changes Respiratory: No shortness of breath Cardiovascular: No chest pain Gastrointestinal: No anorexia, nausea, vomiting or diarrhea. No abdominal pain or blood in stool. Neurologic: No headache, dizziness, syncope Endocrine: Denies polyuria, polydipsia. Physical exam: Constitutional: Alert, in no distress. Eyes: Pupils are equal, round and reactive to light. Extraocular muscles intact. Neck: Supple, Full range of motion. No lymphadenopathy. No palpable thyroid masses. Respiratory: Clear to auscultation. Cardiovascular: S1 S2 regular. No murmurs Neurologic: No focal neurological deficits Psychiatric: Normal mood and affect [facility] Medical History Abscess of periosteum without osteomyelitis Hospital discharge follow-up Amputation of left foot Pulmonary nodules Type 2 diabetes mellitus with vascular disease Microalbuminuria Decreased renal function Nausea and vomiting Left ventricular ejection fraction of 40-49% SOB (shortness of breath) on exertion Anemia DMII (diabetes mellitus, type 2) Open wound Anemia of chronic disease Peripheral vascular disease Diabetic foot ulcer Anemia Orthostatic hypotension Gangrene of toe of left foot GERD (gastroesophageal reflux disease) History of angiography PICC (peripherally inserted central catheter) in place Bacteremia Diabetic foot ulcer PAD (peripheral artery disease) Diabetes Surgical History History of surgery History of amputation below knee History of esophagogastroduodenoscopy (EGD) H/O colonoscopy (~10/26/23) History of transmetatarsal amputation of left foot Amputated toe of right foot (11/05/20) Family History Other Diabetes No family history of cancer Social History Household Members: None Housing: Apartment Are you a primary medicare sales executive to a significant other at home: No Do you presently have visiting nurse or other home services: No Alcohol intake: current Alcohol intake frequency: holidays/special occasions only Alcohol type: hard liquor Comment: pt still feeling the same Patient Tobacco Use Status: Former Tobacco user Tobacco use type: Cigarette Cigarette Packs Per Day: 0.5 Cigarettes Per Day: 1 Years Smoked: 15 e-Cigarette/Vaping Use: Never Used Second Hand Smoke Exposure: Yes service: No Current occupational status: unemployed Cognitive needs: No Hearing needs: No Vision needs: No Physical Exam Vital Signs: Last Vital Signs Pulse 76 02/10/25 08:37 BP 134/82 02/10/25 08:37 Pulse Ox 98 02/10/25 08:37 Oxygen Delivery Method Room Air 02/10/25 08:37 BMI result Body Mass Index 32.5 Office Procedures Glucose Monitoring Details Details: see HPI 11738 - Glucose monitoring, continuous-physician I&R Procedure code (CPT) selection complete Results Reviewed Results Reviewed: Laboratory Last Values Glucose (Clinic) 359 mg/dL (60-115) H* 02/10/25 08:42 Laboratory Tests 10/25/23 03/14/24 09/23/24 05:55 08:15 08:54 Plt Count Creatinine Estimated GFR Hgb A1c (Clinic) 7.1 H AST ALT B-Natriuretic Peptide 2266 H Urine Creatinine 103.24 Urine Microalbumin 1556.0 Microalb/Creat Ratio 1507.1 H 10/13/24 10:56 Plt Count 366 Creatinine 1.27 Estimated GFR 60 Hgb A1c (Clinic) AST 22 ALT 17 B-Natriuretic Peptide Urine Creatinine Urine Microalbumin Microalb/Creat Ratio Assessment & Plan Assessment & Plan (1) Type 2 diabetes mellitus with vascular disease: Code(s): E11.59 - Type 2 diabetes mellitus with other circulatory complications Category: Medical (2) Microalbuminuria: Code(s): R80.9 - Proteinuria, unspecified Category: Medical Plan In summary this is a 54-year-old male with uncontrolled type 2 diabetes with micro and macrovascular complications. Reviewed importance of diabetic eye exams. Followed by Podiatry and Nephrology. Diabetic diet and lifestyle modifications reviewed with the patient. Declined appointment with dietitian and telehealth nurse educator. Reviewed the importance of bringing his glucometer to all appointments. Increase Trulicity 3 mg weekly. Increase Toujeo to 20 units every evening. Increase Humalog (lispro) to 8 units three times daily 15 minutes before meals. If your blood sugars after eating are still over 180, then increase humalog (lispro) to 10 units three times daily 15 minutes before meals. Continue Metformin 500 mg twice daily. Written instructions reviewed for treating hypoglycemia. Follow up in 1 week for Type II diabetes. Orders: Orders AMB Glucose Monitoring Today E11.9 - Type 2 diabetes mellitus without complications Medications: New dulaglutide (Trulicity) 3 mg (0.5 mL) subcut QWEEK 2 mL 3RF Discontinued dulaglutide (Trulicity) Discontinued Reason: Doctor's Order 1.5 mg (0.5 mL) subcut QWEEK 2 mL 3RF Patient Instructions: Increase Trulicity 3 mg weekly. Increase Toujeo insulin 20 units every evening. Increase Humalog (lispro) 8 units three times daily 15 minutes before meals. If your blood sugars after eating are still over 180, then increase humalog (lispro) to 10 units three times daily 15 minutes before meals. Continue Metformin 500 mg twice daily. If you experience low blood sugar, treat this by eating a chewable fruit candy like skittles or jelly beans (about 8 pieces), 4 ounces (1/2 cup) of fruit juice (not diet), 1 tablespoon of honey or 4 glucose tablets. If your blood sugar is under 55, take double the amount of one of the above. Recheck your blood sugar in 15 minutes. Coding Level of Care Code Est Pt Level 4 (92210) Diagnoses Type 2 diabetes mellitus with vascular disease E11.59 Microalbuminuria R80.9 CPT Codes Details - CPT: 56937 - Glucose monitoring, continuous-physician I&R ([id number])
[2025-02-10 08:37] VITALS: BP 134/82; PULSE 76; O2SAT 98; BMI 32.5
--- OUTSIDE RECORDS SUMMARY | 2025-02-10 08:39 | XMS_ITS | Encounter Summary ---
Author Organization [address] [place] [address] Care Team Providers Care Wildlife Ecology Professor Name Role Phone Fredy Adair Primary Care Provider [phone] Encounter Details Date Type Department Care Team (Late st Contact Info) Description 01/06/2025 Lab Requisition [facility] - Main Lab 299 [facility] [place] [address] Jeny Light MD 175 [facility] [address] [place] [address] Encounter for therapeutic drug level monitoring Social [...] Care Team (Late st Contact Info) Description 02/16/2025 9:00 AM EDT Office Visit Orthopedic Surgery - [place] [address] [address] Miguel A Villegas, DPMadhu [address] [address] documented as of this encounter Procedures Procedure [...] Hold for add-ons. 01/06/2025 6:01 PM EDT [facility] Comment:Auto resulted. Blood Venous blood specimen / Unknown 01/06/2025 4:15 PM EDT 01/06/2025 4:49 PM EDT us Jeny Light MD LAB BLOOD ORDERABLES Final Resul t Performing Organization Address City/[facility]/ZIP Co de Phone Number [facility] [address] [place] [address], [place] [phone] * Vancomycin, trough (01/06/2025 4:15 PM EDT) [facility] Vancomycin Trough 19.1 10.0 - 20.0 mcg/mL LAB CHEMISTRY METHOD 01/06/2025 5:34 PM EDT [facility] Blood Venous blood specimen / Unknown 01/06/2025 4:15 PM EDT 01/06/2025 4:49 PM EDT us Jeny Light MD LAB BLOOD ORDERABLES Final Resul t Performing Organization Address [facility]/ZIP Co de Phone Number [facility] [address] [place] [address], [place] [phone] * (ABNORMAL) Basic metabolic panel (01/06/2025 4:15 PM EDT) Pathologist [facility] Sodium 140 133 - 145 mmol/L LAB CHEMISTRY METHOD 01/06/2025 5:33 PM EDT [facility] Potassium 4.1 3.5 - 5.5 mmol/L LAB CHEMISTRY METHOD 01/06/2025 5:33 PM EDT [facility] Chloride 111(H) 96 - 110 mmol/L LAB CHEMISTRY METHOD 01/06/2025 5:33 PM EDT [facility] CO2 21 21 - 32 mmol/L LAB CHEMISTRY METHOD 01/06/2025 5:33 PM EDT [facility] Anion Gap 8 3 - 11 LAB CHEMISTRY METHOD 01/06/2025 5:33 PM EDT [facility] Glucose 213(H) 70 - 100 mg/dL LAB CHEMISTRY METHOD 01/06/2025 5:33 PM EDT [facility] BUN 22 5 - 25 mg/dL LAB CHEMISTRY METHOD 01/06/2025 5:33 PM EDT [facility] Creatinine 1.62(H) 0.70 - 1.30 mg/dL LAB CHEMISTRY METHOD 01/06/2025 5:33 PM EDT [facility] eGFR 51(L) >=60 mL/min/1. 73m2 LAB CHEMISTRY METHOD 01/06/2025 5:33 PM EDT [facility] Comment:Calculation based on the??Chronic Kidney Disease Epidemiology Collaboration (CKD-EPI) equation refit??without adjustment for race. BUN/Creatinine Ratio 13.6 LAB CHEMISTRY METHOD 01/06/2025 5:33 PM EDT [facility] Calcium 8.8 8.5 - 10.5 mg/dL LAB CHEMISTRY METHOD 01/06/2025 5:33 PM EDT [facility] Blood Venous blood specimen / Unknown 01/06/2025 4:15 PM EDT 01/06/2025 4:49 PM EDT us Jeny Light MD LAB BLOOD ORDERABLES Final Resul t [facility] [address] [place] [address], documented in this encounter Visit Diagnoses Diagnosis Encounter for therapeutic drug level monitoring documented in this encounter Additional Health Concerns Infection Onset Date Last Indicated Resolved Time MRSA 12/26/2024 12/29/2024 documented as of this encounter Care Teams Wildlife Ecology Professor Relationship Specialty Start Date End Date Fredy Adair PA [address] [place] [phone] PCP - General Internal Medicine 10/09/21 documented as of this encounter
--- OUTSIDE RECORDS SUMMARY | 2025-02-10 08:39 | XMS_ITS | Clinical Summary ---
Author Organization [facility] Address [address] [place] [address] Phone Care Team Providers Care Colorer Machine Name Role Phone Fredy Adair Primary Care Provider [phone] Medications omeprazole (PriLOSEC) [address] capsule [...] Phone Billing Address Personal/Family Self [address] ([id number]) [place] [address] [facility] ([id number]) [place] [address] Care Teams Colorer Machine Relationship Specialty Start Date End Date Fredy Adair PA [address] [place] [address], [address] [place] [address] PCP - General Physician Computer Video Game Designer 03/13/23
--- OUTSIDE RECORDS SUMMARY | 2025-02-10 08:39 | XMS_ITS | Encounter Summary ---
Author Organization [employer] Address [address] [place] [address] Care Team Providers Care Sales Engineer Engineered Products Name Role Phone Fredy Adair Primary Care Provider [phone] Reason for Visit * Reason Comments DM [...] AM EDT Office Visit Orthopedic Surgery - [place] [address] [phone] Miguel A Villegas, DPMadhu [address] [address] Controlled type 2 diabetes with neuropathy (CMS/HCC V24, CMS/HCC V28) (Primary Dx); History of amputation of left foot through metatarsal bone (CMS/HCC V24, CMS/HCC V28); Ulcer of heel and midfoot, left, with fat layer exposed (CMS/HCC V24, CMS/HCC V28); PVD (peripheral vascular disease) ([facility] V24); Lymphedema of left lower extremity Social History Tobacco Use Types Packs/Day Years [...] - - Weight 95.7 kg (211 lb) 02/03/2025 8:46 AM EDT Height 170.2 cm (5' 7.01 ) 02/03/2025 8:46 AM ED T Body Mass Index 33.04 02/03/2025 8:46 AM EDT documented in this encounter Functional [...] Ailyn Guadalupe RN documented in this encounter Progress Notes * Miguel A Villegas DPM - 02/03/2025 9:15 AM EDT Referring MD: [email or web address] Last PCP visit: 09/10/2024 IDENTIFIER: GLADYS Barry is a 54 y.o. year old male who presents for consultation. CC: Left foot wound HPI: 54-year-old male presents office chief complaint of left foot ulceration. Patient notes that he hasbeen using offloading pad and dressing the foot daily. Patient denies any recent fever nausea vomiting shortness of breath. ROS: GENERAL: Pt denies [...] Iron (Fe) deficiency anemia Peripheral vascular disease ([facility] V24) Tobacco use disorder Diabetes mellitus type 2 with peripheral artery disease ([facility] V24, [facility] V28) Foot ulcer due to secondary DM ([facility] V24, [facility] V28) CHF (congestive heart failure) ([facility] V24, [facility] V28) Type 2 diabetes mellitus with circulatory disorder ([facility] V24, [facility] V28) Vascular problem Chronic renal impairment, stage 3 (moderate) ([facility] V24[facility] V28[facility] Type 2 diabetes mellitus with left diabetic foot infection ([facility] V24, [facility] V28) SOCIAL HISTORY: Social History Tobacco Use Smoking status: Every Day Current packs/day: 0.00 Average packs/day: 1 pack/day for 31.0 years (31.0 ttl pk-yrs) Types: Cigarettes Start date: 09/28/1989 Last attempt to quit: 09/28/2020 Years since quittin.3 Smokeless tobacco: Never Substance Use Topics Alcohol use: Not Currently ACTIVE MEDICATIONS: Outpatient Medications Marked as Taking for the 02/03/25 encounter (Office Visit) with Miguel A Villegas DPM Medication Sig Dispense Refill amLODIPine (NORVASC) 10 mg tablet Take 1 tablet by mouth daily. aspirin 81 mg EC tablet Take 1 tablet by mouth daily. ferrous sulfate 325 mg (65 mg iron) EC tablet TAKE 1 TABLET BY MOUTH EVERY OTHER DAY flash glucose sensor (FreeStyle Jayla 2 Sensor) kit USE DIRECTED gabapentin (NEURONTIN) 300 mg capsule Take 1 capsule (300 mg total) by mouth at bedtime. isosorbide mononitrate (IMDUR) 30 mg 24 hr [...] on dependency. Positive hair growth. No varicosities. Pitting edema to the left leg. Denies rest pain or claudication pain. NEUROLOGICAL: Sharp/dull sensation diminished, protective sensation diminished on [place]. Multipleperipheral neuropathies bilateral feet ORTHOPEDIC: Good muscle strength 5/5 of all flexors and extensors. Dorsi flexion of ankle ,10 degrees, plantar flexion WNL. No muscle atrophy. TMA to the left foot with midfoot breach from Charcot neuropathy. DERMATOLOGICAL:.Surgical site is healed to the left foot though there is a new wound in the plantarmid foot portion secondary to pressure. Wound is 1.5 cm in diameter with regular hyperkeratotic rimand fibrogranular subcutaneous base. No streaking cellulitis or deep probing or purulent drainage BIOMECHANICS: Antalgic gait IMPRESSION: 1. Controlled type 2 diabetes with neuropathy ([facility] V24, [facility] V28) 2. History of amputation of left foot through metatarsal bone ([facility] V24, [facility] V28) 3. Ulcer of heel and midfoot, left, with fat layer exposed ([facility] V24, [facility] V28) 4. PVD (peripheral vascular disease) ([facility] V24) 5. Lymphedema of left lower extremity PLAN: Pt was seen and examined, history reviewed. Patient understands the importance of tight glucose control as this will help allow for proper healing of the plantar foot wound No further signs of dehiscence and incision sites of healed. There is a new wound extending to the plantar aspect of the foot which required debridement as described below. Patient was dressed with aoffloading pad and 4 x 4 gauze Betadine Kerlix and Fidel bandage. Patient instructed to keep it dressed daily. Open wound selective excisional debridement of devitalized soft tissue, fibrin, epidermis, dermis, thru skin and subcutaneous tissue, first 20 sq cm or less, using sterile sharp dissection #15 scalpel blade of the right foot ulcers. Pt. deferred anesthesia. . Devitalized tissue was not sent to pathology. Patient with findings of lymphedema to the left leg with fluid overload at multiple areas. Patient was given a prescription for 3 pairs of compression stockings 20 to 30 mmHg pressure. Patient will return in 2 weeks for site check Miguel A Villegas DPM documented in this encounter Plan of Treatment Upcoming Encounters Date Type Department Care Team (Late st Contact Info) Description 02/16/2025 9:00 AM EDT Office Visit Orthopedic Surgery - [place] [address] [phone] Miguel A Villegas DPM [address] [address] documented as of this encounter Visit Diagnoses Diagnosis Controlled type 2 diabetes with neuropathy ([facility] V24, [facility] V28)- Primary Type II or unspecified type diabetes mellitus with neurological manifestations, not stated as uncontrolled History of amputation of left foot through metatarsal bone ([facility] V24, [facility] V28) Ulcer of heel and midfoot, left, with fat layer exposed ([facility] V24[facility] V28) PVD (peripheral vascular disease) ([facility] V24) Unspecified peripheral vascular disease Lymphedema of left lower extremity documented in this encounter Additional Health Concerns Infection Onset Date Last Indicated Resolved Time MRSA 12/26/2024 12/29/2024 documented as of this encounter Care Teams Sales Engineer Engineered Products Relationship Specialty Start Date End Date Fredy Adair PA [address] [place] [phone] PCP - General Internal Medicine 10/09/21 documented as of this encounter
--- OUTSIDE RECORDS SUMMARY | 2025-02-10 08:39 | XMS_ITS | Encounter Summary ---
Author [place] [address] Care Team Providers Care Research Physiologist Name Role Phone Fredy Adair Primary Care Provider [phone] Encounter Details Date Type Department Care Team (Late st Contact Info) Description 01/13/2025 Lab Requisition [facility] - Main Lab 299 [facility] [place] [address] Jeny Light MD 175 [facility] [address] [place] [address] Encounter for therapeutic drug level monitoring Social [...] AM EDT Office Visit Orthopedic Surgery - [place] [address] [phone] Miguel A Villegas, DPM [address] [address] documented as of this encounter Procedures Procedure [...] Hold for add-ons. 01/13/2025 6:01 PM EDT [facility] Comment:Auto resulted. Blood Venous blood specimen / Unknown 01/13/2025 3:45 PM EDT 01/13/2025 4:34 PM EDT us Jeny Light MD LAB BLOOD ORDERABLES Final Resul t Performing Organization Address [facility]/ZIP Co de Phone Number [facility] [address] [place] [address], [place] [phone] * SST tube (01/13/2025 3:45 PM EDT) Extra Tube Hold for add-ons. 01/13/2025 6:01 PM EDT [facility] Comment:Auto resulted. Blood Venous blood specimen / Unknown 01/13/2025 3:45 PM EDT 01/13/2025 4:34 PM EDT us Jeny Light MD LAB BLOOD ORDERABLES Final Resul t Performing Organization Address [facility]/ZIP Co de Phone Number [facility] [address] [place] [address], [place] [phone] * (ABNORMAL) Basic metabolic panel (01/13/2025 3:45 PM EDT) Sodium 137 133 - 145 mmol/L LAB CHEMISTRY METHOD 01/13/2025 5:13 PM EDT [facility] Potassium 3.9 3.5 - 5.5 mmol/L LAB CHEMISTRY METHOD 01/13/2025 5:13 PM EDT [facility] Chloride 109 96 - 110 mmol/L LAB CHEMISTRY METHOD 01/13/2025 5:13 PM EDT [facility] CO2 21 21 - 32 mmol/L LAB CHEMISTRY METHOD 01/13/2025 5:13 PM EDT [facility] Anion Gap 7 3 - 11 LAB CHEMISTRY METHOD 01/13/2025 5:13 PM EDT [facility] Glucose 180(H) 70 - 100 mg/dL LAB CHEMISTRY METHOD 01/13/2025 5:13 PM EDT [facility] BUN 21 5 - 25 mg/dL LAB CHEMISTRY METHOD 01/13/2025 5:13 PM EDT [facility] Creatinine 1.47(H) 0.70 - 1.30 mg/dL LAB CHEMISTRY METHOD 01/13/2025 5:13 PM EDT [facility] eGFR 57(L) >=60 mL/min/1. 73m2 LAB CHEMISTRY METHOD 01/13/2025 5:13 PM EDT [facility] Comment:Calculation based on the??Chronic Kidney Disease Epidemiology Collaboration (CKD-EPI) equation refit??without adjustment for race. BUN/Creatinine Ratio 14.3 LAB CHEMISTRY METHOD 01/13/2025 5:13 PM T [facility] Calcium 8.4(L) 8.5 - 10.5 mg/dL LAB CHEMISTRY METHOD 01/13/2025 5:13 PM [facility] Blood Venous blood specimen / Unknown 01/13/2025 3:45 PM EDT 01/13/2025 4:33 PM EDT us Jeny Light MD LAB BLOOD ORDERABLES Final Resul t [facility] [address] [place] [address], * Vancomycin, trough (01/13/2025 3:45 PM EDT) Vancomycin Trough 18.0 10.0 - 20.0 mcg/mL LAB CHEMISTRY METHOD 01/13/2025 5:13 PM EDT [facility] Blood Venous blood specimen / Unknown 01/13/2025 3:45 PM EDT 01/13/2025 4:33 PM EDT us Jeny Light MD LAB BLOOD ORDERABLES Final Resul t [facility] ([facility]) [facility] [address] [place] [address], documented in this encounter Visit Diagnoses Diagnosis Encounter for therapeutic drug level monitoring documented in this encounter Additional Health Concerns Infection Onset Date Last Indicated Resolved Time MRSA 12/26/2024 12/29/2024 documented as of this encounter Care Teams Research Physiologist Relationship Specialty Start Date End Date Fredy Adair PA [address] [place] [phone] PCP - General Internal Medicine 10/09/21 documented as of this encounter
--- OUTSIDE RECORDS SUMMARY | 2025-02-10 08:39 | XMS_ITS | Encounter Summary ---
Author Organization [employer] [place] [address] Care Team Providers Care Shell Shop Supervisor Name Role Phone Fredy Adair Primary Care Provider [phone]- [phone] Encounter Details Date Type Department Care Team (Late st Contact Info) Description 01/20/2025 Lab Requisition [facility] - Main Lab [address] [facility] [place] [address] Jeny Light MD [address] [facility] [address] [place] [address] Type 2 diabetes mellitus with foot ulcer (CODE) ([facility] V24, [facility] V28) Social History Tobacco Use Types Packs/Day [...] AM EDT Office Visit Orthopedic Surgery - [place] [phone] [phone] Miguel A Villegas, DESHAWN [address] [address] documented as of this encounter Procedures Procedure Name Priority Date/Time Associated Diagnosis Comments SST - GOLD Routine 01/20/2025 2:30 PM EDT Type 2 diabetes mellitus with foot ulcer (CODE) (CMS/HCC V24, CMS/[facility] V28) CBC WITH AUTO DIFFERENTIAL Routine 01/20/2025 2:30 PM EDT Type 2 diabetes mellitus with foot ulcer (CODE) (CMS/HCC V24, CMS/HCC V28) CBC AND DIFFERENTIAL Routine 01/20/2025 2:30 PM EDT Type 2 diabetes mellitus with foot ulcer (CODE) ([facility] V24, [facility] V28) VANCOMYCIN, TROUGH Routine 01/20/2025 2: 30 PM EDT Type 2 diabetes mellitus with foot ulcer (CODE) ([facility] V24, [facility] V28) BASIC METABOLIC PANEL Routine 01/20/2025 2:30 PM EDT Type 2 diabetes mellitus with foot ulcer (CODE) ([facility] V24, [facility] V28) documented in this encounter Results * SST tube (01/20/2025 2:30 PM EDT) [facility] Extra Tube Hold for add-ons. 01/20/2025 4:01 PM EDT [facility] Comment:Auto resulted. Blood Venous blood specimen / Unknown 01/20/2025 2:30 PM EDT 01/20/2025 2:58 PM EDT us Jeny Light MD LAB BLOOD ORDERABLES Final Resul t [facility] [address] [place] [address], * (ABNORMAL) CBC auto differential (01/20/2025 2:30 PM EDT) [facility] WBC 9.7 4.8 - 10.8 K/mcL LAB HEMETOLOGY METHOD 01/20/2025 3:39 PM EDT [facility] RBC 2.80(L) 4.50 - 5.50 M/mcL LAB HEMETOLOGY METHOD 01/20/2025 3:39 PM EDT [facility] Hemoglobin 7.8(L) 13.5 - 17.5 g/dL LAB HEMETOLOGY METHOD 01/20/2025 3:39 PM EDT [facility] Hematocrit 24.1(L) 42.0 - 54.0 % LAB HEMETOLOGY METHOD 01/20/2025 3:39 PM EDT [facility] MCV 85.2 79.0 - 98.0 FL LAB [facility]ETOLOGY METHOD [facility] MCH 27.6 27.0 - 32.0 pcg LAB HEMETOLOGY METHOD 01/20/2025 3:39 PM [facility] MCHC 32.4 32.0 - 37.0 g/dL LAB HEMETOLOGY METHOD 01/20/2025 3:39 PM [facility] RDW 16.2(H) 11.0 - 15.0 % LAB HEMETOLOGY METHOD 01/20/2025 3:39 PM [facility] Platelets 360 130 - 400 K/mcL LAB HEMETOLOGY METHOD 01/20/2025 3:39 PM [facility] MPV 9.6 7.0 - 11.0 FL LAB HEMETOLOGY METHOD 01/20/2025 3:39 PM [facility] NRBC 0.0 <1.0 % LAB HEMETOLOGY METHOD 01/20/2025 3:39 PM [facility] NRBC Absolute 0.00 <0.10 K/mcL LAB HEMETOLOGY METHOD 01/20/2025 3:39 PM [facility] Neutrophils Relative 67.2 % LAB HEMETOLOGY METHOD 01/20/2025 3:39 PM [facility] Lymphocytes Relative 16.3 % LAB HEMETOLOGY METHOD 01/20/2025 3:39 PM [facility] Monocytes Relative 10.7 % LAB HEMETOLOGY METHOD 01/20/2025 3:39 PM [facility] Eosinophils Relative 4.7 % LAB HEMETOLOGY METHOD 01/20/2025 3:39 PM [facility] Basophils Relative 0.7 % LAB HEMETOLOGY METHOD 01/20/2025 3:39 PM EDT [facility] Immature Granulocytes Relative 0.4 % LAB HEMETOLOGY METHOD 01/20/2025 3:39 PM EDT [facility] Neutrophils Absolute 6.50 1.50 - 7.00 K/mcL LAB HEMETOLOGY METHOD 01/20/2025 3:39 PM EDT [facility] Lymphocytes Absolute 1.57 1.00 - 5.00 K/mcL LAB HEMETOLOGY METHOD 01/20/2025 3:39 PM EDT [facility] Monocytes Absolute 1.03(H) 0.20 - 1.00 K/mcL LAB HEMETOLOGY METHOD 01/20/2025 3:39 PM EDT [facility] Eosinophils Absolute 0.45 0.00 - 0.50 K/mcL LAB HEMETOLOGY METHOD 01/20/2025 3:39 PM EDT [facility] Basophils Absolute 0.07 0.00 - 0.20 K/mcL LAB HEMETOLOGY METHOD 01/20/2025 3:39 PM EDT [facility] Immature Granulocytes Absolute 0.04(H) 0.00 - 0.03 K/mcL LAB HEMETOLOGY METHOD 01/20/2025 3:39 PM EDT [facility] Blood Venous blood specimen / Unknown 01/20/2025 2:30 PM EDT 01/20/2025 2:58 PM EDT us Jeny Light MD LAB BLOOD ORDERABLES Final Resul t [facility] [address] [place] [address], * Vancomycin, trough (01/20/2025 2:30 PM EDT) Vancomycin Trough 17.2 10.0 - 20.0 mcg/mL LAB CHEMISTRY METHOD 01/20/2025 4:10 PM [facility] Blood Venous blood specimen / Unknown 01/20/2025 2:30 PM EDT 01/20/2025 2:58 PM EDT us Jeny Light MD LAB BLOOD ORDERABLES Final Resul t [facility] [address] [place] [address], [place] [phone] * (ABNORMAL) Basic metabolic panel (01/20/2025 2:30 PM EDT) Sodium 137 133 - 145 mmol/L LAB CHEMISTRY METHOD 01/20/2025 4:10 PM [facility] Potassium 4.0 3.5 - 5.5 mmol/L LAB CHEMISTRY METHOD 01/20/2025 4:10 PM [facility] Comment:Hemolysis present Chloride 106 96 - 110 mmol/L LAB CHEMISTRY METHOD 01/20/2025 4:10 PM [facility] CO2 22 21 - 32 mmol/L LAB CHEMISTRY METHOD 01/20/2025 4:10 PM [facility] Anion Gap 9 3 - 11 LAB CHEMISTRY METHOD 01/20/2025 4:10 PM [facility] Glucose 183(H) 70 - 100 mg/dL LAB CHEMISTRY METHOD 01/20/2025 4:10 PM [facility] BUN 20 5 - 25 mg/dL LAB CHEMISTRY METHOD 01/20/2025 4:10 PM [facility] Creatinine 1.67(H) 0.70 - 1.30 mg/dL LAB CHEMISTRY METHOD 01/20/2025 4:10 PM [facility] eGFR 49(L) >=60 mL/min/1. 73m2 LAB CHEMISTRY METHOD 01/20/2025 4:10 PM [facility] Comment:Calculation based on the??Chronic Kidney Disease Epidemiology Collaboration (CKD-EPI) equation refit??without adjustment for race. BUN/Creatinine Ratio 12.0 LAB CHEMISTRY METHOD 01/20/2025 4:10 PM EDT [facility] Calcium 8.6 8.5 - 10.5 mg/dL LAB CHEMISTRY METHOD 01/20/2025 4:10 PM EDT [facility] Blood Venous blood specimen / Unknown 01/20/2025 2:30 PM EDT 01/20/2025 2:58 PM EDT us Jeny Light MD LAB BLOOD ORDERABLES Final Resul t [facility] [address] [place] [address], [place] [phone] documented in this encounter Visit Diagnoses Diagnosis Type 2 diabetes mellitus with foot ulcer (CODE) ([facility] V24, [facility] V28) documented in this encounter Additional Health Concerns Infection Onset Date Last Indicated Resolved Time MRSA 12/26/2024 12/29/2024 documented as of this encounter Care Teams Shell Shop Supervisor Relationship Specialty Start Date End Date Fredy Adair PA [address] [place] [address] PCP - General Internal Medicine 10/09/21 documented as of this encounter
--- OUTSIDE RECORDS SUMMARY | 2025-02-10 08:39 | XMS_ITS | Encounter Summary ---
Author Organization [place] [address] Care Team Providers Care Emergency Services Dispatcher Name Role Phone Fredy Adair Primary Care Provider [phone]- [phone] Encounter Details Date Type Department Care Team (Late st Contact Info) Description 01/04/2025 Lab Requisition [facility] - Main Lab [address] [place] [address] Nkechi Salazar PA [address] [place] [address] Essential (primary) hypertension Social History Tobacco Use [...] Office Visit Orthopedic Surgery - [place] [address] [phone] Miguel A Villegas, DPM [address] [address] documented as of this encounter Procedures Procedure [...] Hold for add-ons. 01/04/2025 7:01 PM EDT [facility] Comment:Auto resulted. Blood Venous blood specimen / Unknown 01/04/2025 3:45 PM EDT 01/04/2025 5:51 PM EDT Nke[facility] DUGGAN LAB BLOOD ORDERABLES Final Result [facility] [address] [place] [address], * (ABNORMAL) CBC auto differential (01/04/2025 3:45 PM EDT) WBC 9.7 4.8 - 10.8 K/mcL LAB HEMETOLOGY METHOD 01/04/2025 6:41 PM EDT [facility] RBC 2.90(L) 4.50 - 5.50 M/mcL LAB HEMETOLOGY METHOD 01/04/2025 6:41 PM EDT [facility] Hemoglobin 8.1(L) 13.5 - 17.5 g/dL LAB HEMETOLOGY METHOD 01/04/2025 6:41 PM EDT [facility] Hematocrit 26.4(L) 42.0 - 54.0 % LAB HEMETOLOGY METHOD 01/04/2025 6:41 PM EDT [facility] MCV 89.8 79.0 - 98.0 FL LAB HEMETOLOGY METHOD 01/04/2025 6:41 PM EDT [facility] MCH 27.6 27.0 - 32.0 pcg LAB HEMETOLOGY METHOD 01/04/2025 6:41 PM EDT [facility] MCHC 30.7(L) 32.0 - 37.0 g/dL LAB HEMETOLOGY METHOD 01/04/2025 6:41 PM EDT [facility] RDW 15.7(H) 11.0 - 15.0 % LAB HEMETOLOGY METHOD 01/04/2025 6:41 PM [facility] Platelets 608(H) 130 - 400 K/mcL LAB HEMETOLOGY METHOD 01/04/2025 6:41 PM [facility] MPV 9.7 7.0 - 11.0 FL LAB HEMETOLOGY METHOD 01/04/2025 6:41 PM [facility] NRBC 0.0 <1.0 % LAB HEMETOLOGY METHOD 01/04/2025 6:41 PM [facility] NRBC Absolute 0.00 <0.10 K/mcL LAB HEMETOLOGY METHOD 01/04/2025 6:41 PM [facility] Neutrophils Relative 73.6 % LAB HEMETOLOGY METHOD 01/04/2025 6:41 PM [facility] Lymphocytes Relative 14.2 % LAB HEMETOLOGY METHOD 01/04/2025 6:41 PM [facility] Monocytes Relative 5.9 % LAB HEMETOLOGY METHOD 01/04/2025 6:41 PM [facility] Eosinophils Relative 4.6 % LAB HEMETOLOGY METHOD 01/04/2025 6:41 PM [facility] Basophils Relative 1.2 % LAB HEMETOLOGY METHOD 01/04/2025 6:41 PM [facility] Immature Granulocytes Relative 0.5 % LAB HEMETOLOGY METHOD 01/04/2025 6:41 PM [facility] Neutrophils Absolute 7.11(H) 1.50 - 7.00 K/mcL LAB HEMETOLOGY METHOD 01/04/2025 6:41 PM [facility] Lymphocytes Absolute 1.37 1.00 - 5.00 K/mcL LAB HEMETOLOGY METHOD 01/04/2025 6:41 PM [facility] Monocytes Absolute 0.57 0.20 - 1.00 K/mcL LAB HEMETOLOGY METHOD 01/04/2025 6:41 PM EDT [facility] Eosinophils Absolute 0.44 0.00 - 0.50 K/mcL LAB HEMETOLOGY METHOD 01/04/2025 6:41 PM EDT [facility] Basophils Absolute 0.12 0.00 - 0.20 K/mcL LAB HEMETOLOGY METHOD 01/04/2025 6:41 PM EDT [facility] Immature Granulocytes Absolute 0.05(H) 0.00 - 0.03 K/mcL LAB HEMETOLOGY METHOD 01/04/2025 6:41 PM EDT [facility] Blood Venous blood specimen / Unknown 01/04/2025 3:45 PM EDT 01/04/2025 5:51 PM EDT Nke[facility] DUGGAN LAB BLOOD ORDERABLES Final Result [facility] [address] [place] [address], documented in this encounter Visit Diagnoses Diagnosis Essential (primary) hypertension Unspecified essential hypertension documented in this encounter Additional Health Concerns Infection Onset Date Last Indicated Resolved Time MRSA 12/26/2024 12/29/2024 documented as of this encounter Care Teams Emergency Services Dispatcher Relationship Specialty Start Date End Date Fredy Adair PA [address] [place] [phone] PCP - General Internal Medicine 10/09/21 documented as of this encounter
--- OUTSIDE RECORDS SUMMARY | 2025-02-10 08:39 | XMS_ITS | Clinical Summary ---
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 1 Active aspirin 81 mg EC tablet Take 1 tablet by mouth daily. 1 Active flash glucose sensor (FreeStyle Jayla 2 Sensor) kit USE DIRECTED 4 Active Trulicity 1.5 mg/0.5 mL pen injector injection Inject 1.5 mg into the skin once a week. - Subcutaneous Active ferrous sulfate 325 mg (65 mg iron) EC tablet TAKE 1 TABLET BY MOUTH EVERY OTHER DAY 4 Active pen needle, diabetic 32 gauge x 5/32 needle Use with insulin pens 4 times daily before meals. 1 Active omeprazole (PriLOSEC) [address] capsule TAKE 1 CAPSULE BY MOUTH DAILY AT 630AM 4 Active zolpidem (AMBIEN) 5 mg tablet TAKE 1 TABLET BY MOUTH EVERY DAY AT BEDTIME NEEDED FOR SLEEP FOR 7 DAYS 4 Active gabapentin (NEURONTIN) 300 mg capsule Take [...] by mouth 2 (two) times a day. 5 Active hydrALAZINE (APRESOLINE) 25 mg tablet Take 1 tablet (25 mg total) by mouth 3 (three) times a day. 90 each 5 Active vancomycin (VANCOCIN) IVPB (premix)Indicat ions:maintain trough 15-18 Infuse 400 mL (2,000 mg total) into a venous catheter 1 (one) time each day at the same time for 24 days. 5 025 oxyCODONE (ROXICODONE) 5 mg immediate release tabletIndicatio ns:Ulcer of heel and midfoot, left, with fat layer exposed ([facility] [place] V24, [facility] [place] V28) Take 1 tablet (5 mg total) by mouth every 6 (six) hours if needed for severe pain for up to 7 days. Max Daily Amount: 20 mg 28 tablet 5 025 Active Problems Problem Noted Date Diagnosed Date Type 2 diabetes mellitus wit h left diabetic foot infection ([facility] V24, [facility] [place] V28) 12/28/2024 Foot ulcer due to secondary DM ([facility] [place] V24, [facility] V28) 12/27/2024 Type 2 diabetes mellitus wit h circulatory disorder ([facility] [place] V24, [facility] V28) 12/27/2024 Vascular problem 12/27/2024 Chronic renal impairment, 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) ([facility] [place] V24, [facility] V28) 12/27/2024 Peripheral vascular disease ([facility] [place] V24) 2023 Iron (Fe) deficiency anemia 02/11/2021 Hyperlipidemia 01/11/2021 Diabetes mellitus type 2 wit h peripheral artery disease ([facility] V24, [facility] V28) 10/31/2020 Hypertension 02/10/2020 Tobacco use disorder 01/31/2019 CHF (congestive heart failure) ([facility] [place] V24, [facility] V28) Encounters Date Type Department Care Team Description 02/03/2025 9:15 AM EDT Office Visit Orthopedic Surgery [facility] [address] [phone] Miguel A Villegas DPM Controlled type 2 diabetes with neuropathy ([facility] [place] V24, [facility] [place] V28) (Primary Dx); History of amputation of left foot through metatarsal bone ([facility] [place] V24, [facility] [place] V28); Ulcer of heel and midfoot, left, with fat layer exposed ([facility] [place] V24, [facility] [place] V28); PVD (peripheral vascular disease) ([facility] [place] V24); Lymphedema of left lower extremity 01/20/2025 Lab Requisition [facility] [address] [facility] [place] [phone] Jeny Light MD Type 2 diabetes mellitus with foot ulcer (CODE) ([facility] [place] V24, [facility] [place] V28) 01/19/2025 9:15 AM EDT Office Visit Orthopedic Surgery [facility] [address] [phone] Miguel A Villegas DPM Localized edema (Primary Dx); Controlled type 2 diabetes with neuropathy ([facility] [place] V24, [facility] [place] V28) 01/13/2025 Lab Requisition [facility] [address] [facility] [place] [phone] Jeny Light MD Encounter for therapeutic drug level monitoring 01/12/2025 9:30 AM EDT Office Visit Orthopedic Surgery [facility] [address] [phone] Miguel A Villegas DPM History of amputation of left foot through metatarsal bone ([facility] [place] V24, [facility] [place] V28) (Primary Dx); Dehiscence of operative wound, subsequent encounter; Ulcer of heel and midfoot, left, with fat layer exposed ([facility] [place] V24, [facility] [place] V28) 01/09/2025 Telephone Infectious Disease - [address] [place] [address] Jerilyn Short, MILLI 01/06/2025 Lab Requisition [facility] [address] [place] [address] Jeny Light MD Encounter for therapeutic drug level monitoring 01/06/2025 Telephone Orthopedic Surgery [facility] [address] [phone] Daria Maher, MILLI 01/05/2025 9:00 AM EDT Office Visit Orthopedic [facility] [address] [phone] Miguel A Villegas, DESHAWN History of amputation of left foot through metatarsal bone ([facility] V24, [facility] [place] V28) (Primary Dx); Cellulitis of left foot; Surgical wound dehiscence, initial encounter; Ulcer of heel and midfoot, left, with fat layer exposed ([facility] [place] V24, [facility] [place] V28) 01/04/2025 Lab Requisition [facility] [address] [place] [address] Nkechi Salazar PA Essential (primary) hypertension 12/30/2024 12:43 PM EDT Anesthesia Event [facility] [address]iac [address] [place] [phone] Guero Reyes MD Steele, Matthew G, UNINDENTURED APPRENTICE 12/30/2024 12:37 PM EDT - 12/30/2024 11:59 PM EDT Hospital Encounter [facility] [address] [place] [phone] Josue Gleason MD Gomes, Sheldon B, MD Bacteremia (Primary Dx) Discharge Disposition: Home or Self Care 12/29/2024 4:16 PM EDT Anesthesia Event [facility] Main OR [address] [place] [phone] Casey Salgado MD Abrokwah, Foster Myles G, RANDY 12/29/2024 4:06 PM EDT - 12/29/2024 5:[address] [facility] Main OR [address] [place] [phone] Miguel A Villegas DPM LEFT FOOT SECONDARY WOUND CLOSURE, ANTIBIOTIC BEADS 12/27/2024 4:06 PM EDT Anesthesia Event [facility] OR [address] [place] [phone] Nereyda Fall MD 12/27/2024 4:00 PM EDT - 12/27/2024 5:30 PM EDT Surgery [facility] OR [address] [place] [address] Miguel A Villegas DPM I&D bone left foot 12/26/2024 9:50 PM EDT - 12/31/2024 3:32 PM EDT Hospital Encounter [facility] Urology Unit [address] [place] [phone] Otto Levine MD Alam, Aroosa, MD Mohani, Priya, MD Seralathan, MD Ramiro MRSA bacteremia (Primary Dx); Type 2 diabetes mellitus with left diabetic foot infection ([facility] V24, [facility] V28); Foot ulcer due to secondary DM ([facility] V24, [facility] V28); Abscess of right foot; Infection Discharge Disposition: Home-Health Care [facility] [place] 12/26/2024 3:15 PM EDT Office Visit Orthopedic Surgery [facility] [address] [phone] Miguel A Villegas DPM History of amputation of left foot through metatarsal bone ([facility] V24, [facility] V28) (Primary Dx); Cellulitis of left foot; Abscess of tendon of foot, left; Ulcer of left heel, with necrosis of bone ([facility] V24, [facility] V28) 12/26/2024 Telephone Orthopedic Surgery [facility] [address] [phone] Miguel A Villegas DPM Wound 12/22/2024 8:15 AM EDT Office Visit Orthopedic Surgery [facility] [address] [phone] Miguel A Villegas DPM Controlled type 2 diabetes with neuropathy ([facility] V24, [facility] V28) (Primary Dx); History of amputation of left foot through metatarsal bone ([facility] V24, [facility] V28); Ulcer of heel and midfoot, left, with fat layer exposed ([facility] V24, [facility] V28); Cellulitis of left foot 11/22/2024 8:45 AM EST Office Visit Orthopedic Surgery [facility] [address] [phone] Miguel A Villegas DPM Controlled type 2 diabetes with neuropathy ([facility] V24, [facility] V28) (Primary Dx); History of amputation of left foot through metatarsal bone ([facility] V24, [facility] V28); Ulcer of heel and midfoot, left, with fat layer exposed ([facility] V24, [facility] V28) from Last 3 Months Surgical History Surgery Date Site/Laterality Comments ANGIOPLASTY 2019 Right PROCEDURE: HISTORICAL ANGIOPLASTY W/STENT; COMMENT: leg BYPASS GRAFT 11/05/2020 Right PROCEDURE: NC AMPUTATION TOE METATARSOPHALANGEAL JOINT; COMMENT: 4 th toe OTHER SURGICAL HISTORY 04/18/2024 Right PROCEDURE: NC I&D BELOW FASCIA FOOT MULTIPLE AREAS OTHER SURGICAL HISTORY 04/18/2024 Right PROCEDURE: NC INCISION BONE CORTEX FOOT OTHER SURGICAL HISTORY 04/20/2024 Right PROCEDURE: NC AMPUTATION LEG THROUGH TIBIA&FIBULA Medical History Medical History Date Comments Uncontrolled diabetes mellitus D X:Uncontrolled diabetes mellitus Normocytic anemia DX:Normocytic anemia; COMMENT: Herbert 01/2021 Peripheral vascular disease ([facility] V24) DX:Peripheral vascular disease (HCC) Esophageal reflux DX:Esophageal reflux Anemia DX:Anemia Hyperlipidemia DX:Hyperlipidemi a Essential hypertension DX:Essent ial hypertension History of tobacco abuse DX:Hist ory of tobacco abuse CHF (congestive heart failur e) ([facility] V24, [facility] V28) Reduced EF 40-45% Family History Medical [...] Mass Index 33.04 02/03/2025 8:46 AM EDT Plan of Treatment Upcoming Encounters Date Type Department Care Team (Late st Contact Info) Description 02/16/2025 9:00 AM EDT Office Visit Orthopedic Surgery - [facility] [address] 175 [facility] [address] [place] [phone] Miguel A Villegas, DESHAWN [address] [phone] Health Maintenance Due Date Last Done Comments [...] this topic Medical Devices Implanted Type 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 [employer] Left: Foot [employer] [facility] [id number] 05/28/2026 620-010 / N/A / [id number] Procedures Procedure Name Priority Date/Time Associated Diagnosis [...] Acute osteomyelitis of left foot (CMS/HCC V24, [facility] V28) POCT GLUCOSE BLOOD Routine 12/27/2024 3: [...] CULTURE BLOOD STAT 12/26/2024 10:40 PM EDT [id number]-LSH, RSV, FLU A AND B QUALITATIVE RT-PCR, [...] Hold for add-ons. 01/20/2025 4:01 PM EDT [facility] Comment:Auto resulted. Blood Venous blood specimen / Unknown 01/20/2025 2:30 PM EDT 01/20/2025 2:58 PM EDT us Jeny Light MD LAB BLOOD ORDERABLES Final Resul t [facility] [address] [place] [address], [place] [phone] * (ABNORMAL) CBC auto differential (01/20/2025 2:30 PM EDT) Only the most recent of7 resultswithin the time period is included. [facility] Signature WBC 9.7 4.8 - 10.8 K/mcL LAB HEMETOLOGY METHOD 01/20/2025 3:39 PM EDT [facility] RBC 2.80(L) 4.50 - 5.50 M/mcL LAB HEMETOLOGY METHOD 01/20/2025 3:39 PM EDT [facility] Hemoglobin 7.8(L) 13.5 - 17.5 g/dL LAB HEMETOLOGY METHOD 01/20/2025 3:39 PM [facility] Hematocrit 24.1(L) 42.0 - 54.0 % LAB HEMETOLOGY METHOD 01/20/2025 3:39 PM [facility] MCV 85.2 79.0 - 98.0 FL LAB HEMETOLOGY METHOD [facility]/20[facility]2025 3[facility] MCH 27.6 27.0 - 32.0 pcg LAB HEMETOLOGY METHOD 01/20/2025 3:39 PM [facility] MCHC 32.4 32.0 - 37.0 g/dL LAB HEMETOLOGY METHOD 01/20/2025 3:39 PM [facility] RDW 16.2(H) 11.0 - 15.0 % LAB HEMETOLOGY METHOD 01/20/2025 3:39 PM [facility] Platelets 360 130 - 400 K/mcL LAB HEMETOLOGY METHOD 01/20/2025 3:39 PM [facility] MPV 9.6 7.0 - 11.0 FL LAB HEMETOLOGY METHOD 01/20/2025 3:39 PM [facility] NRBC 0.0 <1.0 % LAB HEMETOLOGY METHOD 01/20/2025 3:39 PM [facility] NRBC Absolute 0.00 <0.10 K/mcL LAB HEMETOLOGY METHOD 01/20/2025 3:39 PM EDT [facility] Neutrophils Relative 67.2 % LAB HEMETOLOGY METHOD 01/20/2025 3:39 PM [facility] Lymphocytes Relative 16.3 % LAB HEMETOLOGY METHOD 01/20/2025 3:39 PM [facility] Monocytes Relative 10.7 % LAB HEMETOLOGY METHOD 01/20/2025 3:39 PM [facility] Eosinophils Relative 4.7 % LAB HEMETOLOGY METHOD 01/20/2025 3:39 PM [facility] Basophils Relative 0.7 % LAB HEMETOLOGY METHOD 01/20/2025 3:39 PM [facility] Immature Granulocytes Relative 0.4 % LAB HEMETOLOGY METHOD 01/20/2025 3:39 PM [facility] Neutrophils Absolute 6.50 1.50 - 7.00 K/mcL LAB HEMETOLOGY METHOD 01/20/2025 3:39 PM [facility] Lymphocytes Absolute 1.57 1.00 - 5.00 K/mcL LAB HEMETOLOGY METHOD 01/20/2025 3:39 PM [facility] Monocytes Absolute 1.03(H) 0.20 - 1.00 K/mcL LAB HEMETOLOGY METHOD 01/20/2025 3:39 PM [facility] Eosinophils Absolute 0.45 0.00 - 0.50 K/mcL LAB HEMETOLOGY METHOD 01/20/2025 3:39 PM [facility] Basophils Absolute 0.07 0.00 - 0.20 K/mcL LAB HEMETOLOGY METHOD 01/20/2025 3:39 PM [facility] Immature Granulocytes Absolute 0.04(H) 0.00 - 0.03 K/mcL LAB HEMETOLOGY METHOD 01/20/2025 3:39 PM EDT [facility] Blood Venous blood specimen / Unknown 01/20/2025 2:30 PM EDT 01/20/2025 2:58 PM EDT us Jeny Light MD LAB BLOOD ORDERABLES Final Resul t Performing Organization Address City/[facility]/ZIP Co de Phone Number [facility] [address] [place] [address], [place] [phone] * Vancomycin, trough (01/20/2025 2:30 PM EDT) Only the most recent of5 resultswithin the time period is included. [facility] Vancomycin Trough 17.2 10.0 - 20.0 mcg/mL LAB CHEMISTRY METHOD 01/20/2025 4:10 PM EDT [facility] Blood Venous blood specimen / Unknown 01/20/2025 2:30 PM EDT 01/20/2025 2:58 PM EDT us Jeny Light MD LAB BLOOD ORDERABLES Final Resul t Performing Organization Address [facility] de Phone Number [facility] [address] [place] [address], [place] [phone] * (ABNORMAL) Basic metabolic panel (01/20/2025 2:30 PM EDT) Only the most recent of9 resultswithin the time period is included. [facility] Sodium 137 133 - 145 mmol/L LAB CHEMISTRY METHOD 01/20/2025 4:10 PM EDT [facility] Potassium 4.0 3.5 - 5.5 mmol/L LAB CHEMISTRY METHOD 01/20/2025 4:10 PM EDT [facility] Comment:Hemolysis present Chloride 106 96 - 110 mmol/L LAB CHEMISTRY METHOD 01/20/2025 4:10 PM EDT [facility] CO2 22 21 - 32 mmol/L LAB CHEMISTRY METHOD 01/20/2025 4:10 PM EDT [facility] Anion Gap 9 3 - 11 LAB CHEMISTRY METHOD 01/20/2025 4:10 PM EDT [facility] Glucose 183(H) 70 - 100 mg/dL LAB CHEMISTRY METHOD 01/20/2025 4:10 PM EDT [facility] BUN 20 5 - 25 mg/dL LAB CHEMISTRY METHOD 01/20/2025 4:10 PM EDT [facility] Creatinine 1.67(H) 0.70 - 1.30 mg/dL LAB CHEMISTRY METHOD 01/20/2025 4:10 PM EDT [facility] eGFR 49(L) >=60 mL/min/1. 73m2 LAB CHEMISTRY METHOD 01/20/2025 4:10 PM EDT [facility] Comment:Calculation based on the??Chronic Kidney Disease Epidemiology Collaboration (CKD-EPI) equation refit??without adjustment for race. BUN/Creatinine Ratio 12.0 LAB CHEMISTRY METHOD 01/20/2025 4:10 PM EDT [facility] Calcium 8.6 8.5 - 10.5 mg/dL LAB CHEMISTRY METHOD 01/20/2025 4:10 PM T [facility] Blood Venous blood specimen / Unknown 01/20/2025 2:30 PM EDT 01/20/2025 2:58 PM EDT us Jeny Light MD LAB BLOOD ORDERABLES Final Resul t [facility] [address] [place] [address], * Red tube (01/04/2025 3:45 PM EDT) Extra Tube Hold for add-ons. 01/04/2025 7:01 PM EDT [facility] Comment:Auto resulted. Blood Venous blood specimen / Unknown 01/04/2025 3:45 PM EDT 01/04/2025 5:51 PM EDT Nkechi DUGGAN LAB BLOOD ORDERABLES Final Result [facility] [address] [place] [address], [place] [phone] * XR Chest 1 View (12/31/2024 2:10 [...] Signed Date: 12/31/2024 14:28 ET Workstation ID: [id number] Transcribed By: Self Edit Transcribed Date: 12/31/2024 [...] Signed Date: 12/31/2024 14:28 ET Workstation ID: [id number] Transcribed By: Self Edit Transcribed Date: 12/31/2024 14:26 ET us Ramiro Wayne MD IMG XR PROCEDURES Final Result * (ABNORMAL) POCT Glucose, blood (12/31/2024 11:11 AM EDT) Only the most recent of19 resultswithin the time period is included. Glucose POCT 232(H) 70 - 100 mg/dL 12/31/2024 11:11 AM EDT [facility] Blood Capillary blood specimen / Unknown 12/31/2024 11:11 AM EDT 12/31/2024 11:13 AM EDT Ramiro Wayne MD LAB POINT OF CA RE TEST DOCKED DEVICE UNSOLICITED RESULTS Final Result Performing Organization Address City/[facility] Co de Phone Number [facility] [address] [place] [address], [place] [phone] * Magnesium (12/31/2024 6:12 AM EDT) Only the most recent of5 resultswithin the time period is included. Magnesium 2.2 1.9 - 2.6 mg/dL LAB CHEMISTRY METHOD 12/31/2024 7:50 AM EDT [facility] Blood Blood sample taken from central line / Unknown Long-term Catheter / Unknown 12/31/2024 6:12 AM EDT 12/31/2024 6:47 AM EDT us Nkechi DUGGAN LAB BLOOD ORDERABLES Final Result [facility] [address] [place] [address], [place] [phone] * Insert PICC line (12/30/2024 5:38 PM EDT) Narrative Jerilyn Francis RN - 12/30/2024 5:38 PM EDT Jerilyn Francis RN ? 12/30/2024 ??5:42 PM PICC Line Insertion Procedure Note Procedure: Insertion of 4F single lumen Bard PowerPICC Lot: [id number] Exp: 2025-08-27 Indications: ??Vancomycin until 01/24/2025 Procedure [...] obtained. The probe was inserted by the rotating equipment specialist. There was no probe insertion difficulty. Topical [...] alternatives were discussed: yes ?Risks discussed: ??Bleeding [place] protocol: ??Procedure explained and questions answered to [...] and culture (12/30/2024 5:16 AM EDT) Specific [place] Urine 1.014 1.003 - 1.030 LAB URINALYSIS - AUTOMATED METHOD 12/30/2024 7:42 AM [facility] pH, Urine 6.5 5.0 - 8.0 pH LAB URINALYSIS - AUTOMATED METHOD 12/30/2024 7:42 AM [facility] Leukocytes, Urine Negative Negative LAB URINALYSIS - AUTOMATED METHOD 12/30/2024 7:42 AM [facility] Nitrite, Urine Negative Negative LAB URINALYSIS - AUTOMATED METHOD 12/30/2024 7:42 AM [facility] Protein, Urine 300(A) <=Trace mg/dL LAB URINALYSIS - AUTOMATED METHOD 12/30/2024 7:42 AM [facility] Glucose, Urine 500(A) Negative mg/dL LAB URINALYSIS - AUTOMATED METHOD 12/30/2024 7:42 AM [facility] Ketones, Urine Negative Negative mg/dL LAB URINALYSIS - AUTOMATED METHOD 12/30/2024 7:42 AM [facility] Urobilinogen, Urine 0.2 0.2 - 1.0 mg/dL LAB URINALYSIS - AUTOMATED METHOD 12/30/2024 7:42 AM [facility] Bilirubin, Urine Negative Negative LAB URINALYSIS - AUTOMATED METHOD 12/30/2024 7:42 AM [facility] Blood, Urine Negative Negative LAB URINALYSIS - AUTOMATED METHOD 12/30/2024 7:42 AM [facility] RBC, Urine 3.1 0 - 4 /HPF LAB URINALYSIS - AUTOMATED METHOD 12/30/2024 7:42 AM [facility] WBC, Urine 1.0 0 - 4 /HPF LAB URINALYSIS - AUTOMATED METHOD 12/30/2024 7:42 AM [facility] Squamous Epithelial, Urine 22 0 - 60 /LPF LAB URINALYSIS - AUTOMATED METHOD 12/30/2024 7:42 AM [facility] Bacteria, Urine Negative Negative /HPF LAB URINALYSIS - AUTOMATED METHOD 12/30/2024 7:42 AM [facility] Hyaline Casts, Urine 2.0 0 - 3 /LPF LAB URINALYSIS - AUTOMATED METHOD 12/30/2024 7:42 AM [facility] Urine Urine specimen obtained by clean catch procedure / Unknown Non-blood Collection / Unknown 12/30/2024 5:16 AM EDT 12/30/2024 6:53 AM EDT us Nohemi Omalley MD LAB URINE ORDERABLES Final Resul t [facility] [address] [place] [address], * Bowen urine culture tube (12/30/2024 5:16 AM EDT) Extra Tube Hold for add-ons. 12/30/2024 8:[address] [facility] Comment:Auto resulted. Urine Urine specimen obtained by clean catch procedure / Unknown Non-blood Collection / Unknown 12/30/2024 5:16 AM EDT 12/30/2024 6:53 AM EDT us Nohemi Omalley MD LAB URINE ORDERABLES Final Resul t [facility] [address] [place] [address], [place] [phone] * CT Chest/Abdomen/Pelvis wo Contrast (12/29/2024 9:21 [...] Hetal Pino MD on 12/29/2024 22:14:42 Nkechi Lopes Lookner [facility] IMG CT PROCEDURES Final Re sult * (ABNORMAL) Culture wound deep (12/29/2024 4:55 PM EDT) Only the most recent of2 resultswithin the time period is included. Culture, Wound Light Growth Methicillin-Resista nt Staphylococcus aureus(A) RENE 01/01/2025 10:20 AM EDT [facility] Comment: The organism value for this result has been updated. These results have been appended to the previously preliminary verified report. Edited result: Previously reported as Staphylococcus aureus on 12/31/2024 at 1038 EDT. Gram Stain Result No polymorphonuclear leukocytes, No epithelial cells, and No organisms noted 01/01/2025 10:20 AM EDT [facility] Swab Structure of left foot [...] GENERAL ORDERABLES Final Result Performing Organization Address City/[facility]/ZIP Co de Phone Number [facility] ([facility] [address] [place] [address], [place] [phone] * ECG 12 lead (12/29/2024 12:54 PM EDT) Ventricular Rate ECG 88 BPM GEMUSE Atrial Rate 88 BPM GEMUSE P-R Interval 204 ms GEMUSE QRS Duration 82 ms GEMUSE Q-T Interval 380 ms GEMUSE QTc 459 ms GEMUSE P Wave [place] 45 degrees GEMUSE R [place] -28 degrees GEMUSE T [place] 91 degrees GEMUSE ECG Interpretation Normal sinus rhythm Nonspecific ST and T wave abnormality Abnormal ECG When compared with ECG of 19-APR-2024 09:41, No significant change was found Confirmed by Romie PINO, LARA ([id number]) on 12/29/2024 7:41:58 PM GEMUSE 12/29/2024 12:5 4 PM EDT 12/29/2024 7:41 PM EDT us Nohemi Omalley MD ECG ORDERABLES Final Result GEMUSE * (ABNORMAL) TRANSTHORACIC ECHOCARDIOGRAM (TTE) COMPLETE (12/29/2024 9:23 AM EDT) BSA 2.07 m2 CV PACS Left Atrium Minor [place] 6.3 cm CV PACS Left Atrium Major [place] 5.7 cm CV PACS LA Area Sys [...] LAB CHEMISTRY METHOD 12/28/2024 11:32 AM EDT [facility] Folate 11.7 2.8 - 17.0 ng/ml LAB CHEMISTRY METHOD 12/28/2024 11:32 AM EDT [facility] Blood Venous blood specimen / Unknown Venipuncture / Unknown 12/28/2024 9:57 AM EDT 12/28/2024 10:23 AM EDT us Nkechi DUGGAN LAB BLOOD ORDERABLES Final Result [facility]) [facility] [address] [place] [address], [place] [phone] * (ABNORMAL) Iron and TIBC (12/28/2024 9:57 AM EDT) Iron 18(L) 50 - 160 mcg/dL LAB CHEMISTRY METHOD 12/28/2024 11:09 AM EDT [facility] TIBC 184(L) 250 - 450 mcg/dL LAB CHEMISTRY METHOD 12/28/2024 11:09 AM EDT [facility] Iron Saturation 10(L) 20 - 50 % LAB CHEMISTRY METHOD 12/28/2024 11:09 AM EDT [facility] Blood Venous blood specimen / Unknown Venipuncture / Unknown 12/28/2024 9:57 AM EDT 12/28/2024 10:23 AM EDT us Nkechi DUGGAN LAB BLOOD ORDERABLES Final Result Performing Organization Address [facility] Co de Phone Number [facility] [address] [place] [address], [place] [phone] * Type and screen (12/28/2024 9:57 AM EDT) ABO Group A 12/28/2024 11:13 AM EDT [facility] Rh Type Positive 12/28/2024 11:13 AM EDT [facility] Antibody Screen Negative 12/28/2024 11:13 AM EDT [facility] Blood Venous blood specimen / Unknown Venipuncture / Unknown 12/28/2024 9:57 AM EDT 12/28/2024 10:23 AM EDT us Nkechi DUGGAN LAB BLOOD BANK TEST ORDERA BLES Final Result Performing Organization Address City/[facility]/ZIP Co de Phone Number [facility] [address] [place] [address], [place] [phone] * Ferritin (12/28/2024 9:57 AM EDT) Ferritin 76 26 - 388 ng/mL LAB CHEMISTRY METHOD 12/28/2024 11:09 AM EDT [facility] Blood Venous blood specimen / Unknown Venipuncture / Unknown 12/28/2024 9:57 AM EDT 12/28/2024 10:23 AM EDT Nkechi DUGGAN LAB BLOOD ORDERABLES Final Result Performing Organization Address [facility]/ZIP Co de Phone Number [facility] [address] [place] [address], [place] [phone] * Prepare RBC: 1 Units (12/28/2024 9:03 AM EDT) Product Code [id number] 12/28/2024 12:10 PM EDT [facility] Unit Number [id number] 12/29/19 12:10 PM EDT [facility] Crossmatch Compatible 12/28/2024 11:15 AM EDT [facility] Dispense Status Transfused 12/28/2024 12:10 PM EDT [facility] Unit ABO Rh APOS 12/28/2024 12:10 PM EDT [facility] Unit Expiration Date Time [id number] 12/28/2024 12:10 PM EDT [facility] Unit Blood Type 6200 12/28/2024 12:10 PM EDT [facility] Blood Venous blood specimen / Unknown 12/28/2024 9:03 AM EDT 12/28/2024 10:23 AM EDT us Nkechi DUGGAN BLOOD BANK PRODUCT ORDERAB LES Final Result Performing Organization Address [facility]/ZIP Co de Phone Number [facility] [address] [place] [address], [place] [phone] * Culture blood (12/28/2024 8:28 AM EDT) Only the most recent of4 resultswithin the time period is included. Culture, Blood No growth at 5 days 01/02/2025 9:01 AM EDT [facility] Blood Venous blood specimen / Unknown Venipuncture / Unknown 12/28/2024 8:28 AM EDT 12/28/2024 8:32 AM EDT us Nkechi DUGGAN LAB MICROBIOLOGY - GENERAL ORDERABLES Final Result Performing Organization Address [facility]/ZIP Co de Phone Number [facility] [address] [place] [address], [place] [phone] * (ABNORMAL) Reticulocyte count (12/28/2024 8:28 AM EDT) Retic Ct Abs 0.030 0.030 - 0.090 M/mcL LAB HEMETOLOGY METHOD 12/28/2024 11:05 AM EDT [facility] Retic Ct Pct 1.2 0.7 - 1.7 % LAB HEMETOLOGY METHOD 12/28/2024 11:05 AM [facility] Immature Retic Fract 20.1(H) 2.3 - 15.9 % LAB HEMETOLOGY METHOD 12/28/2024 11:05 AM [facility] Reticulocyte Hemoglobin 27.4(L) >29.0 pcg LAB HEMETOLOGY METHOD 12/28/2024 11:05 AM T [facility] Blood Venous blood specimen / Unknown Venipuncture / Unknown 12/28/2024 8:28 AM EDT 12/28/2024 8:33 AM EDT us Nkechi DUGGAN LAB BLOOD ORDERABLES Final Result Performing Organization Address [facility]/ZIP Co de Phone Number [facility] [address] [place] [address], [place] [phone] * (ABNORMAL) MRSA molecular study (12/28/2024 8:02 AM EDT) MRSA Screen PCR Detected (A) Not Detected LAB MICROBIOLOGY METHOD 12/28/2024 10:04 AM EDT [facility] Swab Both anterior nares / Unknown Non-blood Collection / Unknown 12/28/2024 8:02 AM EDT 12/28/2024 8:44 AM EDT Otto Levine MD LAB MICROBIOLOGY - GEN ERAL ORDERABLES Final Result [facility] [address] [place] [address], [place] [phone] * Tissue exam (12/27/2024 4:35 PM EDT) Pathologist [facility] Final Diagnosis A. Cuboid margin, left foot, [...] are not identified. 12/30/2024 10:44 AM EDT [facility] Gross Description A. Foot, Left, [...] two pieces. JOHN 12/30/2024 10:44 AM EDT [facility] Disclaimer Unless otherwise specified, all tissue is 10% NB formalin fixed and paraffin embedded. 12/30/2024 10:44 AM EDT [facility] Bone Structure of left foot / Unknown 12/27/2024 4:35 PM EDT 12/28/2024 5:13 AM EDT Specimen from bone (specimen) Structure of left foot / Unknown 12/27/2024 4:35 PM EDT 12/28/2024 5:13 AM EDT us Miguel A Villegas DPM LAB PATHOLOGY ORDERABLES Fi nal Result [facility] [address] [place] [address], [place] [phone] * TH AN LMA(NO CHARGE) (12/27/2024 4:20 [...] Signed Date: 12/27/2024 15:25 ET Workstation ID: [id number] Transcribed By: Self Edit Transcribed Date: 12/27/2024 [...] Signed Date: 12/27/2024 15:25 ET Workstation ID: [id number] Transcribed By: Self Edit Transcribed Date: 12/27/2024 15:14 ET us Otto Levine MD IMG MRI PROCEDURES Fin al Result * Prothrombin time with INR (12/27/2024 6:24 AM EDT) [facility] Protime 12.5 10.6 - 13.9 sec LAB COAGULATION METHOD 12/27/2024 6:59 AM EDT [facility] INR 1.0 LAB COAGULATION METHOD 12/27/2024 6:59 AM EDT [facility] Blood Venous blood specimen / Unknown Venipuncture / Unknown 12/27/2024 6:24 AM EDT 12/27/2024 6:25 AM EDT us Otto Levine MD LAB BLOOD ORDERABLES F inal Result [facility] [address] [place] [address], [place] [phone] * Lavender tube (12/27/2024 4:44 AM EDT) Pathologist [facility] Extra Tube Hold for add-ons. 12/27/2024 7:01 AM EDT [facility] Comment:Auto resulted. Blood Venous blood specimen / Unknown Venipuncture / Unknown 12/27/2024 4:44 AM EDT 12/27/2024 5:40 AM EDT us Otto Levine MD LAB BLOOD ORDERABLES F inal Result Performing Organization Address City/[facility]/ZIP Co de Phone Number [facility] [address] [place] [address], [place] [phone] * Phosphorus (12/27/2024 4:44 AM EDT) [facility] Phosphorus 4.0 2.5 - 4.5 mg/dL LAB CHEMISTRY METHOD 12/27/2024 6:21 AM EDT [facility] Blood Venous blood specimen / Unknown Venipuncture / Unknown 12/27/2024 4:44 AM EDT 12/27/2024 5:26 AM EDT us Otto Levine MD LAB BLOOD ORDERABLES F inal Result Performing Organization Address [facility] de Phone Number [facility] [address] [place] [address], [place] [phone] * (ABNORMAL) Hepatic function panel (12/27/2024 4:44 AM EDT) Total Protein 6.0 6.0 - 8.0 g/dL LAB CHEMISTRY METHOD 12/27/2024 6:25 AM EDT [facility] Albumin 1.7(L) 3.2 - 5.0 g/dL LAB CHEMISTRY METHOD 12/27/2024 6:25 AM EDT [facility] Total Bilirubin 0.2 0.0 - 1.4 mg/dL LAB CHEMISTRY METHOD 12/27/2024 6:25 AM EDT [facility] Bilirubin, Direct <0.1 0.0 - 0.3 mg/dL LAB CHEMISTRY METHOD 12/27/2024 6:25 AM EDT [facility] Bilirubin, Indirect LAB CHEMISTRY METHOD 12/27/2024 6:25 AM EDT [facility] Comment:Unable to calculate Indirect Bilirubin. ALT (SGPT) 16 10 - 60 unit/L LAB CHEMISTRY METHOD 12/27/2024 6:25 AM EDT [facility] AST (SGOT) 11 10 - 42 unit/L LAB CHEMISTRY METHOD 12/27/2024 6:25 AM EDT [facility] Alkaline Phosphatase 102 42 - 121 unit/L LAB CHEMISTRY METHOD 12/27/2024 6:25 AM EDT [facility] Blood Venous blood specimen / Unknown Venipuncture / Unknown 12/27/2024 4:44 AM EDT 12/27/2024 5:26 AM EDT us Otto Levine MD LAB BLOOD ORDERABLES F inal Result [facility] [address] [place] [address], * XR Foot 3+ Views Left (12/26/2024 [...] Signed Date: 12/27/2024 08:24 ET Workstation ID: [id number] Transcribed By: Self Edit Transcribed Date: 12/27/2024 [...] Signed Date: 12/27/2024 08:24 ET Workstation ID: [id number] Transcribed By: Self Edit Transcribed Date: 12/27/2024 [...] Signed Date: 12/27/2024 08:01 ET Workstation ID: [id number] Transcribed By: Self Edit Transcribed Date: 12/27/2024 [...] 12/27/2024 08:01 ET Assigned Physician: Jose Luis Qualres Reviewed and Electronically Signed By: Joes Luis Quarles Signed Date: 12/27/2024 08:01 ET Workstation ID: [id number] Transcribed By: Self Edit Transcribed Date: 12/27/2024 08:01 ET us Palmira DUGGAN IMG XR PROCEDURES Final Resul t * Lactate, with reflex (12/26/2024 10:40 PM EDT) LACTIC ACID 0.8 0.4 - 2.0 mmol/L LAB CHEMISTRY METHOD 12/26/2024 11:[address] [facility] Blood Venous blood specimen / Unknown Venipuncture / Unknown 12/26/2024 10:40 PM EDT 12/26/2024 10:49 PM EDT Palmira DUGGAN LAB BLOOD ORDERABLES Final Re sult [facility] [address] [place] [address], [place] [phone] * (ABNORMAL) Blood culture pathogens molecular study (12/26/2024 10:40 PM EDT) [facility] Staphylococcus aureus Detected (A) Not Detected LAB MICROBIOLOGY METHOD 12/27/2024 7:55 PM EDT [facility] mecA/C and MREJ (MRSA) Detected (A) Not Detected LAB MICROBIOLOGY METHOD 12/27/2024 7:55 PM EDT [facility] Comment:mecA/C and MREJ Gene Detected: Indicates Methicillin Resistant Staphylococcus. Blood Venous blood specimen / Unknown Venipuncture / Unknown 12/26/2024 10:40 PM EDT 12/26/2024 10:48 PM EDT Palmira DUGGAN LAB MICROBIOLOGY - GENERAL OR DERABLES Final Result [facility] [address] [place] [address], [place] [phone] * [id number], RSV, Influenza A and B qualitative RT-PCR (12/26/2024 10:31 PM EDT) [facility] Influenza A PCR Not Detected Not Detected LAB MICROBIOLOGY METHOD 12/26/2024 11:32 PM EDT [facility] Influenza B PCR Not Detected Not Detected LAB MICROBIOLOGY METHOD 12/26/2024 11:32 PM EDT [facility] RSV PCR Not Detected Not Detected LAB MICROBIOLOGY METHOD 12/26/2024 11:32 PM EDT [facility] SARS COV-2 Not Detected Not Detected LAB MICROBIOLOGY METHOD 12/26/2024 11:32 PM EDT [facility] Swab Both anterior nares / Unknown Non-blood Collection / Unknown 12/26/2024 10:31 PM EDT 12/26/2024 10:48 PM EDT Narrative [facility] - 12/26/2024 11:32 PM EDT Disclaimer: ??Testing was performed using the [employer] GeneXpert Xpress SARS-CoV-2 _Flu_RSV PLUS PCR assay. [...] for Healthcare providers can be found at https://www.fda.gov/media/925012/download. ?? Fact sheet for Healthcare patients can be found at https://www.fda.gov/media/469398/download. Palmira DUGGAN LAB MICROBIOLOGY - GENERAL OR DERABLES Final Result [facility] [address] [place] [address], * (ABNORMAL) Culture wound with gram stain (12/26/2024 10:30 PM EDT) Culture, Wound Methicillin-Resistan t Staphylococcus aureus(A) RENE 12/29/2024 9:20 AM EDT [facility] Comment: Positive for PBP2a - indicative of MRSA The organism value for this result has been updated. These results have been appended to the previously preliminary verified report. Gram Stain Result Many Polymorphonuclear leukocytes(A) 12/29/2024 9:20 AM EDT [facility] Gram Stain Result No epithelial cells seen(A) 12/29/2024 9:20 AM EDT [facility] Gram Stain Result Many Gram positive cocci in clusters(A) 12/29/2024 9:20 AM EDT [facility] Drainage Structure of left foot [...] MICROBIOLOGY - GENERAL OR DERABLES Final Result [facility] [address] [place] [address], * (ABNORMAL) Sedimentation rate, automated (12/26/2024 7:21 PM EDT) Sed Rate 67(H) 0 - 20 mm/hr LAB HEMETOLOGY METHOD 12/26/2024 10:31 PM EDT [facility] Blood Venous blood specimen / Unknown Venipuncture / Unknown 12/26/2024 7:21 PM EDT 12/26/2024 8:05 PM EDT Palmira DUGGAN LAB BLOOD ORDERABLES Final Re sult Performing Organization Address [facility]/ZIP Co de Phone Number [facility] [address] [place] [address], * (ABNORMAL) C-reactive protein (12/26/2024 7:21 PM EDT) [facility] C-Reactive Protein 9.30(H) <=0.50 mg/dL LAB CHEMISTRY METHOD 12/26/2024 10:36 PM EDT [facility] Blood Venous blood specimen / Unknown Venipuncture / Unknown 12/26/2024 7:21 PM EDT 12/26/2024 8:05 PM EDT Palmira DUGGAN LAB BLOOD ORDERABLES Final Re sult Performing Organization Address [facility]/ZIP Co de Phone Number [facility] [address] [place] [address], * (ABNORMAL) Hemoglobin A1c (05/17/2021) [facility] Hemoglobin A1C 8.7(A) <=6.5 % Blood Venous blood specimen / Unknown Historical Provider LAB BLOOD ORDERABLES Kimberlee l Result * (ABNORMAL) Lipid panel (05/17/2021) Pathologist [facility] LDL/HDL Ratio 3 0 - 4 Triglycerides 76 0 - 150 mg/dL Cholesterol 115 0 - 200 mg/dL HDL 38(A) >=40 mg/dL LDL Cholesterol 62 0 - 100 mg/dL Blood Venous blood specimen / Unknown Historical Provider LAB BLOOD ORDERABLES Kimberlee l Result * HM Urine Albumin Creatinine Ratio (02/12/2021) Urine Albumin Creatinine Ratio Abstracted us Historical Provider MD HEALTH MAINTENANCE Final Result from Last 3 Months or Most Recently Relevant to Health Maintenance Additional Health Concerns Infection Onset Date Last Indicated MRSA 12/26/2024 12/29/2024 Insurance [facility] MEDICARE Member Subscriber Plan / Payer (Ef fective 2023-Present) Name:Irving Barry Relation to Subscriber:Self Name:Irving Barry Payer ID:[id number] Group ID:[id number] Type:Not on file Address: [place] [address] [address] [phone] Advance Directives Documents on File Type Date Recorded 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
[2025-02-10 08:46] LABS: Glucose, Whole Blood 359 mg/dL (60-115)
== END 2025-02-10 09:00 | disposition home or self-care (01) ==
PROVIDERS: PCP Internal Medicine; Visit Provider Physician Assistant Medical
DX: E11.59 Type 2 diabetes mellitus with other circulatory complications (principal); R80.9 Proteinuria, unspecified

== ENCOUNTER → 2025-02-10 08:30 | Outpatient (BNVA) | payer OTHER, SELFPAY | PROVIDERS: PCP Internal Medicine; Visit Provider Physician Assistant Medical | DX: E11.51 Type 2 diabetes mellitus with diabetic peripheral angiopathy without gangrene (principal); E11.59 Type 2 diabetes mellitus with other circulatory complications; R80.9 Proteinuria, unspecified; I25.10 Atherosclerotic heart disease of native coronary artery without angina pectoris; Z79.4 Long term (current) use of insulin; Z86.31 Personal history of diabetic foot ulcer; Z79.899 Other long term (current) drug therapy | CPT/HCPCS: 82947; 99212 ==

== ENCOUNTER 2025-02-21 08:06 | Outpatient (AMB) | payer OTHER, SELFPAY ==
--- OUTSIDE RECORDS SUMMARY | 2025-02-21 08:09 | XMS_ITS | Encounter Summary ---
Author Organization [employer] Address [address] [place] [address] Care Team Providers Care Skin Peeling Machine Operator Name Role Phone Fredy Adair Primary Care Provider [phone] Reason for Visit * Reason Comments DM [...] AM EDT Office Visit Orthopedic Surgery - [place] [address] [phone] Miguel A Villegas, DPMadhu [address] [address] Controlled type 2 diabetes with neuropathy ([facility] V24, [facility] V28) (Primary Dx); History of amputation of left foot through metatarsal bone ([facility] V24, [facility] V28); PVD (peripheral vascular disease) ([facility] V24); Ulcer of heel and midfoot, left, with fat layer exposed ([facility] V24, [facility] V28) Social History Tobacco Use Types [...] - - Weight 95.7 kg (211 lb) 02/16/2025 8:47 AM EDT Height 170.2 cm (5' 7.01 ) 02/16/2025 8:47 AM ED T Body Mass Index 33.04 02/16/2025 8:47 AM EDT documented in this encounter Functional [...] this encounter Progress Notes * Miguel A Goldsteinson, DPM - 02/16/2025 9:00 AM EDT Referring MD: [place] Last PCP visit: 09/10/2024 IDENTIFIER: Asha is a 54 y.o. year old male who presents for consultation. CC: Left foot wound HPI: 54-year-old male returns to office with left foot ulceration. Patient has continued dressing and every other day and using offloading pad. Patient notes he has not been using a Plastizote insert and is waiting for the new insert to be created. Patient notes that he has not had any increased fever nausea vomiting shortness of breath but has noted some increased drainage from the bottom of the leftfoot ROS: GENERAL: Pt denies nausea, fever, vomiting, [...] Iron (Fe) deficiency anemia Peripheral vascular disease ([facility] V24) Tobacco use disorder Diabetes mellitus type 2 with peripheral artery disease ([facility] V24, [facility] V28) Foot ulcer due to secondary DM ([facility] V24, [facility] V28) CHF (congestive heart failure) ([facility] V24, [facility] V28) Type 2 diabetes mellitus with circulatory disorder ([facility] V24, [facility] V28) Vascular problem Chronic renal impairment, stage 3 (moderate) ([facility] V24, [facility] V28) Type 2 diabetes mellitus with left diabetic foot infection ([facility] V24, [facility] V28) SOCIAL HISTORY: Social History Tobacco Use Smoking status: Every Day Current packs/day: 0.00 Average packs/day: 1 pack/day for 31.0 years (31.0 ttl pk-yrs) Types: Cigarettes Start date: 09/28/1989 Last attempt to quit: 09/28/2020 Years since quittin.3 Smokeless tobacco: Never Substance Use Topics Alcohol use: Not Currently ACTIVE MEDICATIONS: Outpatient Medications Marked as Taking for the 02/16/25 encounter (Office Visit) with Miguel A Villegas [...] Sharp/dull sensation diminished, protective sensation diminished on [place]. Multipleperipheral neuropathies bilateral feet ORTHOPEDIC: Good muscle strength 5/5 of all flexors and extensors. Dorsi flexion of ankle ,10 degrees, plantar flexion WNL. No muscle atrophy. TMA to the left foot with midfoot breach from Charcot neuropathy. DERMATOLOGICAL:.Surgical site is healed to the left foot though there is a continued wound in the plantar mid foot portion secondary to pressure. Wound continues to be 1.5 cm in diameter with regularhyperkeratotic rim and fibrogranular subcutaneous base. No streaking cellulitis or deep probing or p urulent drainage BIOMECHANICS: Antalgic gait IMPRESSION: 1. Controlled type 2 diabetes with neuropathy ([facility] V24, [facility] V28) 2. History of amputation of left foot through metatarsal bone ([facility] V24, [facility] V28) 3. PVD (peripheral vascular disease) ([facility] V24) 4. Ulcer of heel and midfoot, left, with fat layer exposed ([facility] V24, [facility] V28) PLAN: Pt was seen and examined, history reviewed. Patient once again was encouraged to continue controlling her sugar as well as possible as this will help promote healing of the foot Patient is showing some callus formation to the medial aspect of the foot. Patient was encouraged to be sure to use the offloading shoe as often as possible to decrease new ulcer formation. Patient'sleft plantar foot wound required debridement as described below. Patient was fit with a new custom o ffloading pad and dry sterile dressing. Patient instructed to keep dressing the foot every other day and keep it offloaded as often as possible to promote environment for healing Open wound selective excisional debridement of devitalized [...] Upcoming Encounters Date Type Department Care Team ([facility] st Contact Info) Description 03/02/2025 8:30 AM EDT Office Visit Orthopedic Surgery - [address] [phone] Miguel A Villegas, DESHAWN [address] [address] documented as of this encounter Visit Diagnoses Diagnosis Controlled type 2 diabetes with neuropathy ([facility] V24, [facility] V28)- Primary Type II or unspecified type diabetes mellitus with neurological manifestations, not stated as uncontrolled History of amputation of left foot through metatarsal bone ([facility] V24, [facility] V28) PVD (peripheral vascular disease) ([facility] V24) Unspecified peripheral vascular disease Ulcer of heel and midfoot, left, with fat layer exposed ([facility] V24, [facility] V28) documented in this encounter Additional Health Concerns Infection Onset Date Last Indicated Resolved Time MRSA 12/26/2024 12/29/2024 documented as of this encounter Care Teams Skin Peeling Machine Operator Relationship Specialty Start Date End Date Fredy Adair PA [address] [place] [phone] PCP - General Internal Medicine 10/09/21 documented as of this encounter
--- NOTE | 2025-02-21 08:11 | A.OFFVIS_ITS ---
Vital Signs 02/21/25 08:15 Height 5 ft 8 in Weight 211 lb 10.3 oz BMI 32.2 BP 136/86 Blood Pressure Location Lt brachial Position Sitting Pulse 87 Pulse Source Pulse Oximeter Pulse Oximetry (%) 95 Oxygen Delivery Method Room Air Intake Visit Reasons: T2DM Intake Note: Patient present today to follow up on Type 2 Diabetes Mellitus. Last Diabetic Eye exam: Due Last Podiatry Visit: Last week, right foot amputated Random Glucose: 290 mg/dl HgA1C: 8.2% 12/16/2024 Carbonating Stone Cleaner Required: No Accompanied by: Self / Same As Patient Allergies No Known Allergies Allergy (Verified 02/10/25 08:37) Medication List - Last Reconciled 02/21/25 by OLGA LIDIA Simmons acetaminophen 650 mg PO Q6H PRN acetone (urine) test (Ketone Urine Test strips) As directed adhesive tape As directed alcohol swabs (Alcohol Pads) 1 pad topical QID amlodipine 10 mg PO DAILY apixaban (Eliquis) 5 mg PO DAILY atorvastatin 40 mg PO DAILY back brace As directed bisacodyl (Dulcolax (bisacodyl)) 10 mg (2 x 5 mg) PO BEDTIME 2 days blood pressure monitor (Blood Pressure Kit) As directed blood-glucose sensor (FreeStyle Jayla 3 Sensor device) apply new sensor every 14 days blood-glucose,tea and spice supervisor,cont (FreeStyle Jayla 3 Kathleen) Use daily to monitor blood glucose levels continuously. dulaglutide (Trulicity) 3 mg (0.5 mL) subcut QWEEK ferrous sulfate 325 mg PO DAILY gabapentin 300 mg PO BEDTIME 30 days glucose (Dex4 Glucose Quick Dissolve) 16 grams (4 x 4 gram) PO Q15M PRN insulin glargine U-300 conc (Toujeo Max U-300 SoloStar) 30 units (0.1 mL) subcut BEDTIME insulin lispro (Humalog KwikPen (U-100) Insulin) 12 units subcut TID losartan 100 mg PO DAILY 90 days metformin orally 2 times per day with meals; metoprolol succinate ER 50 mg PO DAILY miscellaneous medical supply 2 ea miscellaneous DAILY 99 days omeprazole 40 mg PO DAILY@0630 ondansetron 8 mg PO Q12H 15 days oxycodone 5 mg PO BID PRN 30 days pen needle, diabetic test 4 times daily pen needle, diabetic (BD Ultra-Fine Karen Pen Needle) As directed 4 times a day zolpidem (Ambien) 5 mg PO BEDTIME PRN 30 days HPI Comments Details: This is a 54-year-old male with a past medical history of type 2 diabetes, peripheral vascular disease and coronary artery disease presenting for diabetic management. He was diagnosed with diabetes about 13 years ago. He was hospitalized December 26 through 12/31/2024 for left foot ulcer with osteomyelitis complicated by MRSA infection. He had incision and drainage of the infected foot. He was treated with IV vancomycin. He is followed by wound care. Reports pain is improving. Reviewed [employer] 3+ data download: CGM active 82% Average glucose 269 GMI 9.7% down from 10.2% Glucose variability 22.2% Very high 56% High 42% Target range 2% 0% hypoglycemia The patient has hyperglycemia throughout 24 hours with little variation. Hemoglobin a1c 8.2% 12/16/2024. Current medication regimen: Trulicity 3 mg weekly (started this dose this past Thursday) Toujeo to 20 units every evening. Humalog (lispro) to 8 units three times daily 15 minutes before meals. Metformin 500 mg twice daily. Past medication: Mounjaro discontinued when he switched Trulicity. Reported Mounjaro was not as effective for him. Hypoglycemia symptoms: none Hyperglycemia symptoms: None since meds were adjusted at his last visit Eye exam: due for eye exam at [facility], referred today Podiatry: [place] Microvascular complications: retinopathy, nephropathy, neuropathy Macrovascular complications: Diabetic ulcers, PVD, CAD, below knee amputation of right leg March 2024, amputation of toes on the left foot. Followed by Podiatry. Hyperlipidemia: treated with atorvastatin 40 mg Hypertension is treated with losartan, metoprolol and amlodipine. ROS: Constitutional: No unexplained weight loss, fever, , fatigue chills or night sweats. Eyes: No vision changes Respiratory: No shortness of breath Cardiovascular: No chest pain Gastrointestinal: No anorexia, nausea, vomiting or diarrhea. No abdominal pain or blood in stool. Neurologic: No headache, dizziness, syncope Endocrine: Denies polyuria, polydipsia. Physical exam: Constitutional: Alert, in no distress. Eyes: Pupils are equal, round and reactive to light. Extraocular muscles intact. Neck: Supple, Full range of motion. No lymphadenopathy. No palpable thyroid masses. Respiratory: Clear to auscultation. Cardiovascular: S1 S2 regular. No murmurs Neurologic: No focal neurological deficits Psychiatric: Normal mood and affect [facility] Medical History Abscess of periosteum without osteomyelitis Hospital discharge follow-up Amputation of left foot Pulmonary nodules Type 2 diabetes mellitus with vascular disease Microalbuminuria Decreased renal function Nausea and vomiting Left ventricular ejection fraction of 40-49% SOB (shortness of breath) on exertion Anemia DMII (diabetes mellitus, type 2) Open wound Anemia of chronic disease Peripheral vascular disease Diabetic foot ulcer Anemia Orthostatic hypotension Gangrene of toe of left foot GERD (gastroesophageal reflux disease) History of angiography PICC (peripherally inserted central catheter) in place Bacteremia Diabetic foot ulcer PAD (peripheral artery disease) Diabetes Surgical History History of surgery History of amputation below knee History of esophagogastroduodenoscopy (EGD) H/O colonoscopy (~10/26/23) History of transmetatarsal amputation of left foot Amputated toe of right foot (11/05/20) Family History Other Diabetes No family history of cancer Social History Household Members: None Housing: Apartment Are you a primary professional healthcare representative to a significant other at home: No Do you presently have visiting nurse or other home services: No Alcohol intake: current Alcohol intake frequency: holidays/special occasions only Alcohol type: hard liquor Comment: pt still feeling the same Patient Tobacco Use Status: Former Tobacco user Tobacco use type: Cigarette Cigarette Packs Per Day: 0.5 Cigarettes Per Day: 1 Years Smoked: 15 e-Cigarette/Vaping Use: Never Used Second Hand Smoke Exposure: Yes service: No Current occupational status: unemployed Cognitive needs: No Hearing needs: No Vision needs: No Physical Exam Vital Signs: Last Vital Signs Pulse 87 02/21/25 08:15 BP 136/86 02/21/25 08:15 Pulse Ox 95 02/21/25 08:15 Oxygen Delivery Method Room Air 02/21/25 08:15 BMI result Body Mass Index 32.2 Office Procedures Glucose Monitoring Details Details: See [facility] [address] - Glucose monitoring, continuous-physician I&R Procedure code (CPT) selection complete Results Reviewed Results Reviewed: Laboratory Last Values Glucose (Clinic) 290 mg/dL (60-115) H 02/21/25 08:20 Laboratory Tests 10/25/23 03/14/24 09/23/24 05:55 08:15 08:54 Plt Count Creatinine Estimated GFR Hgb A1c (Clinic) 7.1 H AST ALT B-Natriuretic Peptide 2266 H Urine Creatinine 103.24 Urine Microalbumin 1556.0 Microalb/Creat Ratio 1507.1 H 10/13/24 10:56 Plt Count 366 Creatinine 1.27 Estimated GFR 60 Hgb A1c (Clinic) AST 22 ALT 17 B-Natriuretic Peptide Urine Creatinine Urine Microalbumin Microalb/Creat Ratio Assessment & Plan Assessment & Plan (1) Type 2 diabetes mellitus with vascular disease: Code(s): E11.59 - Type 2 diabetes mellitus with other circulatory complications Category: Medical (2) Microalbuminuria: Code(s): R80.9 - Proteinuria, unspecified Category: Medical Plan In summary this is a 54-year-old male with uncontrolled type 2 diabetes with micro and macrovascular complications. Reviewed importance of diabetic eye exam. Refer to [facility]. Followed by Podiatry and Nephrology. Diabetic diet and lifestyle modifications reviewed with the patient. Continues to decline appointment with dietitian and clinical nurse educator. Reviewed the importance of bringing his glucometer to all appointments. Continue Trulicity 3 mg weekly (started this dose this past Thursday) Increase Toujeo to 30 units every evening. Increase Humalog (lispro) to 12 units three times daily 15 minutes before meals. If you have low blood sugars after meals, decrease to 10 units. Continue Metformin 500 mg twice daily. Written instructions reviewed for treating hypoglycemia. Follow up in 2 weeks for type 2 diabetes. Orders: Orders AMB Glucose Monitoring Today E11.9 - Type 2 diabetes mellitus without compl ications Referrals Ophthalmology Referral E11.59 - Type 2 diabetes mellitus with other circulatory complications Medications: Changed From insulin lispro (Humalog KwikPen (U-100) Insulin) Administer three times daily 15 minutes before meals. 4 units (0.04 mL) subcut TID 15 mL 5RF To insulin lispro (Humalog KwikPen (U-100) Insulin) Administer three times daily 15 minutes before meals. 12 units subcut TID From insulin glargine U-300 conc (Toujeo Max U-300 SoloStar) 10 units (0.0333 mL) subcut BEDTIME 6 mL 5RF To insulin glargine U-300 conc (Toujeo Max U-300 SoloStar) 30 units (0.1 mL) subcut BEDTIME 9 mL 5RF Discontinued flash glucose scanning reader (FreeStyle Jayla 2 Kathleen) Discontinued Reason: Doctor's Order for continuous use 1 ea 0RF E11.52 - Type 2 diabetes mellitus with diabetic peripheral angiopathy with gangrene, Z79.4 - FPC (current) use of insulin flash glucose sensor (FreeStyle Jayla 2 Sensor kit) Discontinued Reason: Doctor's Order for continuous use 2 ea 6RF E11.52 - Type 2 diabetes mellitus with diabetic peripheral angiopathy with gangrene, Z79.4 - FPC (current) use of insulin Patient Instructions: Continue Trulicity 3 mg weekly (started this dose this past Thursday) Increase Toujeo to 30 units every evening. Increase Humalog (lispro) to 12 units three times daily 15 minutes before meals. If you have low blood sugars after meals, decrease to 10 units. Continue Metformin 500 mg twice daily. If you experience low blood sugar, treat this by eating a chewable fruit candy like skittles or jelly beans (about 8 pieces), 4 ounces (1/2 cup) of fruit juice (not diet), 1 tablespoon of honey or 4 glucose tablets. If your blood sugar is under 55, take double the amount of one of the above. Recheck your blood sugar in 15 minutes. Coding Level of Care Code Est Pt Level 4 (13662) Diagnoses Type 2 diabetes mellitus with vascular disease E11.59 Microalbuminuria R80.9 CPT Codes Details - CPT: 76170 - Glucose monitoring, continuous-physician I&R ([id number])
[2025-02-21 08:15] VITALS: BP 136/86; PULSE 87; O2SAT 95; BMI 32.2
[2025-02-21 08:24] LABS: Glucose, Whole Blood 290 mg/dL (60-115)
== END 2025-02-21 08:44 | disposition home or self-care (01) ==
LOC: HO.ENCR 08:07
PROVIDERS: PCP Internal Medicine; Visit Provider Physician Assistant Medical
DX: E11.59 Type 2 diabetes mellitus with other circulatory complications (principal); R80.9 Proteinuria, unspecified

== ENCOUNTER → 2025-02-21 08:06 | Outpatient (BNVA) | payer OTHER, SELFPAY | PROVIDERS: PCP Internal Medicine; Visit Provider Physician Assistant Medical | DX: E11.59 Type 2 diabetes mellitus with other circulatory complications (principal); R80.9 Proteinuria, unspecified; Z79.4 Long term (current) use of insulin; Z79.85 Long-term (current) use of injectable non-insulin antidiabetic drugs; Z79.84 Long term (current) use of oral hypoglycemic drugs | CPT/HCPCS: 82947; 99212 ==

== ENCOUNTER 2025-03-10 09:00 | Outpatient (AMB) | payer OTHER, SELFPAY ==
--- NOTE | 2025-03-10 09:08 | MHC.OFFVIS ---
Vital Signs 03/10/25 09:10 Height 5 ft 8 in Weight 215 lb 9.793 oz BMI 32.8 BP 130/74 Blood Pressure Location Rt brachial Position Sitting Pulse 78 Pulse Source Pulse Oximeter Pulse Oximetry (%) 98 Oxygen Delivery Method Room Air Intake Visit Reasons: Type II diabetes Intake Note: Patient present today to follow up on Type 2 Diabetes Mellitus. Last Diabetic Eye exam: Due Last Podiatry Visit: 2 weeks ago, right foot amputated Random Glucose: 245 mg/dl HgA1C: 9.9% 03/10/2025 Medical Coding Instructor Required: No Accompanied by: self Allergies No Known Allergies Allergy (Verified 03/10/25 09:11) Medication List - Last Reconciled 03/10/25 by OLGA LIDIA Simmons acetaminophen 650 mg PO Q6H PRN acetone (urine) test (Ketone Urine Test strips) As directed adhesive tape As directed alcohol swabs (Alcohol Pads) 1 pad topical QID amlodipine 10 mg PO DAILY apixaban (Eliquis) 5 mg PO DAILY atorvastatin 40 mg PO DAILY back brace As directed bisacodyl (Dulcolax (bisacodyl)) 10 mg (2 x 5 mg) PO BEDTIME 2 days blood pressure monitor (Blood Pressure Kit) As directed blood-glucose sensor (FreeStyle Jayla 3 Sensor device) apply new sensor every 14 days blood-glucose,vice president of talent acquisition,cont (FreeStyle Jayla 3 Harrison) Use daily to monitor blood glucose levels continuously. dulaglutide (Trulicity) 3 mg (0.5 mL) subcut QWEEK ferrous sulfate 325 mg PO DAILY gabapentin 300 mg PO BEDTIME 30 days glucose (Dex4 Glucose Quick Dissolve) 16 grams (4 x 4 gram) PO Q15M PRN insulin glargine U-300 conc (Toujeo Max U-300 SoloStar) 10 units subcut BEDTIME insulin lispro (Humalog KwikPen (U-100) Insulin) 12 units subcut TID losartan 100 mg PO DAILY 90 days metformin orally 2 times per day with meals; metoprolol succinate ER 50 mg PO DAILY miscellaneous medical supply 2 ea miscellaneous DAILY 99 days omeprazole 40 mg PO DAILY@0630 ondansetron 8 mg PO Q12H 15 days oxycodone 5 mg PO BID PRN 30 days pen needle, diabetic test 4 times daily pen needle, diabetic (BD Ultra-Fine Karen Pen Needle) As directed 4 times a day zolpidem (Ambien) 5 mg PO BEDTIME PRN 30 days HPI Comments Details: This is a 54-year-old male with a past medical history of type 2 diabetes, peripheral vascular disease and coronary artery disease presenting for diabetic management. He was diagnosed with diabetes about 13 years ago. He was hospitalized December 26 through 12/31/2024 for left foot ulcer with osteomyelitis complicated by MRSA infection. He had incision and drainage of the infected foot. He was treated with IV vancomycin. He is followed by wound care. He endorses chronic pain. Reviewed Teach 'n Go 3 plus data February 25 through March 10 CGM active 71% G NV 8.7% down from 9.7% Glucose variability 29% Very high 31% High 44% Target range 25% 0% hypoglycemia Patient is experiencing hyperglycemia throughout 24 hours. Hemoglobin a1c 9.9% today 03/10/25 up from 8.2% 12/16/2024. Current medication regimen: Trulicity 3 mg weekly Metformin 500 mg twice daily. Toujeo to 30 units every evening (patient reports he is not taking this since I last saw him) Humalog (lispro) to 12 units three times daily 15 minutes before meals Past medication: Mounjaro discontinued when he switched Trulicity. Reported Mounjaro was not as effective for him. 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 Followed by Podiatry. Hyperlipidemia: treated with atorvastatin 40 mg Hypertension is treated with losartan, metoprolol and amlodipine. ROS: Constitutional: No unexplained weight loss, fever, , fatigue chills or night sweats. Eyes: No vision changes Respiratory: No shortness of breath Cardiovascular: No chest pain Gastrointestinal: No anorexia, nausea, vomiting or diarrhea. No abdominal pain or blood in stool. Neurologic: No headache, dizziness, syncope Endocrine: Denies polyuria, polydipsia. Physical exam: Constitutional: Alert, in no distress. Eyes: Pupils are equal, round and reactive to light. Extraocular muscles intact. Neck: Supple, Full range of motion. No lymphadenopathy. No palpable thyroid masses. Respiratory: Clear to auscultation. Cardiovascular: S1 S2 regular. No murmurs Neurologic: No focal neurological deficits Psychiatric: Normal mood and affect [facility] Medical History Abscess of periosteum without osteomyelitis Hospital discharge follow-up Amputation of left foot Pulmonary nodules Type 2 diabetes mellitus with vascular disease Microalbuminuria Decreased renal function Nausea and vomiting Left ventricular ejection fraction of 40-49% SOB (shortness of breath) on exertion Anemia DMII (diabetes mellitus, type 2) Open wound Anemia of chronic disease Peripheral vascular disease Diabetic foot ulcer Anemia Orthostatic hypotension Gangrene of toe of left foot GERD (gastroesophageal reflux disease) History of angiography PICC (peripherally inserted central catheter) in place Bacteremia Diabetic foot ulcer PAD (peripheral artery disease) Diabetes Surgical History History of surgery History of amputation below knee History of esophagogastroduodenoscopy (EGD) H/O colonoscopy (~10/26/23) History of transmetatarsal amputation of left foot Amputated toe of right foot (11/05/20) Family History Other Diabetes No family history of cancer Social History Household Members: None Housing: Apartment Are you a primary primary care sales representative to a significant other at home: No Do you presently have visiting nurse or other home services: No Alcohol intake: current Alcohol intake frequency: holidays/special occasions only Alcohol type: hard liquor Comment: pt still feeling the same Patient Tobacco Use Status: Former Tobacco user Tobacco use type: Cigarette Cigarette Packs Per Day: 0.5 Cigarettes Per Day: 1 Years Smoked: 15 e-Cigarette/Vaping Use: Never Used Second Hand Smoke Exposure: Yes service: No Current occupational status: unemployed Cognitive needs: No Hearing needs: No Vision needs: No Physical Exam Vital Signs: Last Vital Signs Pulse 78 03/10/25 09:10 BP 130/74 03/10/25 09:10 Pulse Ox 98 03/10/25 09:10 Oxygen Delivery Method Room Air 03/10/25 09:10 BMI result Body Mass Index 32.8 Office Procedures Glucose Monitoring Details Details: see [facility] [address] - Glucose monitoring, continuous-physician I&R Procedure code (CPT) selection complete Results AMB Hemoglobin A1c AMB Hemoglobin A1c 9.9 % Last Edit by JEWEL Hannah on 03/10/25 09:32 Results Reviewed Results Reviewed: Laboratory Last Values Glucose (Clinic) 245 mg/dL (60-115) H 03/10/25 09:15 Laboratory Tests 10/25/23 03/14/24 09/23/24 05:55 08:15 08:54 Plt Count Creatinine Estimated GFR Hgb A1c (Clinic) 7.1 H AST ALT B-Natriuretic Peptide 2266 H Urine Creatinine 103.24 Urine Microalbumin 1556.0 Microalb/Creat Ratio 1507.1 H 10/13/24 10:56 Plt Count 366 Creatinine 1.27 Estimated GFR 60 Hgb A1c (Clinic) AST 22 ALT 17 B-Natriuretic Peptide Urine Creatinine Urine Microalbumin Microalb/Creat Ratio Assessment & Plan Assessment & Plan (1) Type 2 diabetes mellitus with vascular disease: Code(s): E11.59 - Type 2 diabetes mellitus with other circulatory complications Category: Medical (2) Microalbuminuria: Code(s): R80.9 - Proteinuria, unspecified Category: Medical Plan In summary this is a 54-year-old male with uncontrolled type 2 diabetes with micro and macrovascular complications. Reviewed importance of diabetic eye exam. He was just referred to [facility]. Followed by Podiatry and Nephrology. Diabetic diet and lifestyle modifications reviewed with the patient. Continues to decline appointment with dietitian and clinical document improvement educator. Reviewed the importance of bringing his glucometer to all appointments. Continue Trulicity 3 mg weekly (started this dose this past Thursday) Restart Toujeo 10 units every evening. Continue Humalog (lispro) to 12 units three times daily 15 minutes before meals. If you have low blood sugars over night, decrease to 8 units before dinner. Continue Metformin 500 mg twice daily. Written instructions reviewed for treating hypoglycemia. Follow up in 4 weeks for type 2 diabetes. Orders: Orders AMB Hemoglobin A1c Today E11.59 - Type 2 diabetes mellitus with other circulatory complications Aspartate Amino Transferase Today E11.59 - Type 2 diabetes mellitus with other circulatory complications, N18.9 - Chronic kidney disease, unspecified Platelet Count Today E11.59 - Type 2 diabetes mellitus with other circulatory complications, E11.9 - Type 2 diabetes mellitus without complications, N18.9 - Chronic kidney disease, unspecified Vitamin B12 Today E11.59 - Type 2 diabetes mellitus with other circulatory complications, N18.9 - Chronic kidney disease, unspecified, Z91.89 - Other specified personal risk factors, not elsewhere classified AMB Glucose Monitoring Today E11.9 - Type 2 diabetes mellitus without complications Creatinine Today E11.59 - Type 2 diabetes mellitus with other circulatory complications, E11.9 - Type 2 diabetes mellitus without complications, N18.9 - Chronic kidney disease, unspecified Alanine Aminotransferase Today E11.59 - Type 2 diabetes mellitus with other circulatory complications, N18.9 - Chronic kidney disease, unspecified, R79.89 - Other specified abnormal findings of blood chemistry Lipid Panel Today E11.59 - Type 2 diabetes mellitus with other circulatory complications, E78.5 - Hyperlipidemia, unspecified, N18.9 - Chronic kidney disease, unspecified Medications: Changed From insulin glargine U-300 conc (Toujeo Max U-300 SoloStar) 30 units (0.1 mL) subcut BEDTIME 9 mL 5RF To insulin glargine U-300 conc (Toujeo Max U-300 SoloStar) 10 units subcut BEDTIME Patient Instructions: Current medication regimen: Trulicity 3 mg weekly Metformin 500 mg twice daily. Restart Toujeo and take 10 units every evening Humalog (lispro) to 12 units three times daily 15 minutes before meals. If you have low blood sugars over night, decrease to 8 units before dinner. Coding Level of Care Code Est Pt Level 4 (87795) Diagnoses Type 2 diabetes mellitus with vascular disease E11.59 Microalbuminuria R80.9 CPT Codes Details - CPT: 00225 - Glucose monitoring, continuous-physician I&R ([id number])
[2025-03-10 09:10] VITALS: BP 130/74; PULSE 78; O2SAT 98; BMI 32.8
[2025-03-10 09:19] LABS: Glucose, Whole Blood 245 mg/dL (60-115)
--- OUTSIDE RECORDS SUMMARY | 2025-03-10 09:24 | XMS_ITS | Clinical Summary ---
Author Organization [facility] Address [address] [place] [address] Phone Care Team Providers Care Cold Rolling Coordinator Name Role Phone Fredy Adair Primary Care Provider [phone] Medications omeprazole (PriLOSEC) [address] capsule [...] Phone Billing Address Personal/Family Self [address] ([id number]) [place] [address] [facility] ([id number]) [place] [address] Care Teams Cold Rolling Coordinator Relationship Specialty Start Date End Date Fredy Adair PA [address] [place] [address], [address] [place] [address] PCP - General Physician Field Technician 03/13/23
== END 2025-03-10 09:42 | disposition home or self-care (01) ==
LOC: HO.ENCR 09:01
PROVIDERS: PCP Internal Medicine; Visit Provider Physician Assistant Medical
DX: E11.59 Type 2 diabetes mellitus with other circulatory complications (principal); R80.9 Proteinuria, unspecified

== ENCOUNTER → 2025-03-10 09:00 | Outpatient (BNVA) | payer OTHER, SELFPAY | PROVIDERS: PCP Internal Medicine; Visit Provider Physician Assistant Medical | DX: E11.59 Type 2 diabetes mellitus with other circulatory complications (principal); R80.9 Proteinuria, unspecified; N18.9 Chronic kidney disease, unspecified | CPT/HCPCS: 82947; 83036; 99212 ==

== ENCOUNTER 2025-03-28 08:42 | Outpatient (REF) | payer OTHER, SELFPAY ==
--- OUTSIDE RECORDS SUMMARY | 2025-03-28 08:52 | XMS_ITS | Encounter Summary ---
Author Organization [place] [address] Care Team Providers Care Cloth Winding Supervisor Name Role Phone Fredy Adair Primary Care Provider [phone] Encounter Details Date Type Department Care Team (Late st Contact Info) Description 01/13/2025 Lab Requisition [facility] - Main Lab [address] [facility] [place] [address] Jeny Light MD 175 [facility] [address] [place] [address] Encounter for therapeutic drug level monitoring Social [...] Care Team (Late st Contact Info) Description 04/19/2025 9:30 AM EDT Office Visit Orthopedic Surgery - [place] [address] [address] Miguel A Villegas, DPM [address] [address] documented as of this encounter Procedures Procedure [...] Hold for add-ons. 01/13/2025 6:01 PM EDT [facility] Comment:Auto resulted. Blood Venous blood specimen / Unknown 01/13/2025 3:45 PM EDT 01/13/2025 4:34 PM EDT us Jeny Light MD LAB BLOOD ORDERABLES Final Resul t Performing Organization Address [facility]/ZIP Co de Phone Number [facility] [address] [place] [address], [place] [phone] * SST tube (01/13/2025 3:45 PM EDT) Extra Tube Hold for add-ons. 01/13/2025 6:01 PM EDT [facility] Comment:Auto resulted. Blood Venous blood specimen / Unknown 01/13/2025 3:45 PM EDT 01/13/2025 4:34 PM EDT us Jeny Light MD LAB BLOOD ORDERABLES Final Resul t Performing Organization Address [facility]/ZIP Co de Phone Number [facility] [address] [place] [address], [place] [phone] * (ABNORMAL) Basic metabolic panel (01/13/2025 3:45 PM EDT) Sodium 137 133 - 145 mmol/L LAB CHEMISTRY METHOD 01/13/2025 5:13 PM EDT [facility] Potassium 3.9 3.5 - 5.5 mmol/L LAB CHEMISTRY METHOD 01/13/2025 5:13 PM EDT [facility] Chloride 109 96 - 110 mmol/L LAB CHEMISTRY METHOD 01/13/2025 5:13 PM EDT [facility] CO2 21 21 - 32 mmol/L LAB CHEMISTRY METHOD 01/13/2025 5:13 PM EDT [facility] Anion Gap 7 3 - 11 LAB CHEMISTRY METHOD 01/13/2025 5:13 PM EDT [facility] Glucose 180(H) 70 - 100 mg/dL LAB CHEMISTRY METHOD 01/13/2025 5:13 PM EDT [facility] BUN 21 5 - 25 mg/dL LAB CHEMISTRY METHOD 01/13/2025 5:[address] [facility] Creatinine 1.47(H) 0.70 - 1.30 mg/dL LAB CHEMISTRY METHOD 01/13/2025 5:13 PM EDT [facility] eGFR 57(L) >=60 mL/min/1. 73m2 LAB CHEMISTRY METHOD 01/13/2025 5:13 PM EDT [facility] Comment:Calculation based on the Chronic Kidney Disease Epidemiology Collaboration (CKD-EPI) equation refit without adjustment for race. BUN/Creatinine Ratio 14.3 LAB CHEMISTRY METHOD 01/13/2025 5:13 PM T [facility] Calcium 8.4(L) 8.5 - 10.5 mg/dL LAB CHEMISTRY METHOD 01/13/2025 5:[address] [facility] Blood Venous blood specimen / Unknown 01/13/2025 3:45 PM EDT 01/13/2025 4:33 PM EDT us Jeny Light MD LAB BLOOD ORDERABLES Final Resul t [facility] [address] [place] [address], * Vancomycin, trough (01/13/2025 3:45 PM EDT) Vancomycin Trough 18.0 10.0 - 20.0 mcg/mL LAB CHEMISTRY METHOD 01/13/2025 5:13 PM EDT [facility] Blood Venous blood specimen / Unknown 01/13/2025 3:45 PM EDT 01/13/2025 4:33 PM EDT us Jeny Light MD LAB BLOOD ORDERABLES Final Resul t [facility] [address] [place] [address], documented in this encounter Visit Diagnoses Diagnosis Encounter for therapeutic drug level monitoring documented in this encounter Additional Health Concerns Infection Onset Date Last Indicated Resolved Time MRSA 12/26/2024 12/29/2024 documented as of this encounter Care Teams Cloth Winding Supervisor Relationship Specialty Start Date End Date Fredy Adair PA [address] [place] [address] PCP - General Internal Medicine 10/09/21 documented as of this encounter
--- OUTSIDE RECORDS SUMMARY | 2025-03-28 08:52 | XMS_ITS ---
Author Name [facility] Organization Unknown History of Medication Use Medication Directions Dispensed Refills Start Date End Date Stat oxyCODONE (ROXICODONE) 5 mg immediate release tablet Take 1 tablet (5 mg total) by mouth every 6 (six) hours if needed for severe pain for up to 7 days. Max Daily Amount: 20 mg 01/05/2025 active apixaban (Eliquis) 5 mg tablet Take 0.5 tablets (2.5 mg total) by mouth 2 (two) times a day. 12/31/2024 active hydrALAZINE (APRESOLINE) 25 mg tablet Take 1 tablet (25 mg total) by mouth 3 (three) times a day. 12/31/2024 active vancomycin (VANCOCIN) IVPB (premix) Infuse 400 mL (2,000 mg total) into a venous catheter 1 (one) time each day at the same time for 24 days. 12/31/2024 active Mounjaro 5 mg/0.5 mL injection 03/08/2024 active zolpidem (AMBIEN) 5 mg tablet TAKE 1 TABLET BY MOUTH EVERY DAY AT BEDTIME NEEDED FOR SLEEP FOR 7 DAYS 12/23/2023 active oxyCODONE (ROXICODONE) 5 mg immediate release tablet Take one tablet every 6 hours as needed for pain 10/15/2023 active amLODIPine (NORVASC) 10 mg tablet Take 1 tablet by mouth daily. 08/16/2021 active apixaban (Eliquis) 5 mg tablet Take 1 tablet by mouth 2 times daily. 08/16/2021 active aspirin 81 mg EC tablet Take 1 tablet by mouth daily. 08/16/2021 active omeprazole (PriLOSEC) [address] capsule Take 1 capsule by mouth daily for 360 days. 08/16/2021 active gabapentin (NEURONTIN) 300 mg capsule Take 1 capsule (300 mg total) by mouth at bedtime. active isosorbide mononitrate (IMDUR) 30 mg 24 hr tablet Take 1 tablet (30 mg total) by mouth 1 (one) time each day. Do not crush or chew. States he is still taking it active metoprolol succinate (TOPROL-XL) 50 mg 24 hr tablet Take 1 tablet (50 mg total) by mouth 1 (one) time each day. Do not crush or chew. active Problems Problem Status Onset Date Problem Type Date of Resoluti on Source Tobacco use disorder active 2019-01-31 ProblemAct [facility]_THSFRAN Peripheral vascular disease ([facility] V24) active 2024-07-26 ProblemAct [facility]_THS AMY Hypertension active 2020-02-10 ProblemAct CT_TH SFRAN Hyperlipidemia active 2021-01-11 ProblemAct [facility]_ THSFRAN Diabetes mellitus type 2 with peripheral artery disease ([facility] V24, [facility] V28) active 2020-10-31 ProblemAct [facility]_THSFRAN Iron (Fe) deficiency anemia active 2021-02-11 ProblemAct [facility]_THSFRAN Foot ulcer due to secondary DM ([facility] V24, [facility] V28) active 2024-12-27 ProblemAct [facility]_THSFRAN Type 2 diabetes mellitus with left diabetic foot infection ([facility] V24, [facility] V28) active 2024-12-28 ProblemAct CT_THSFRAN Type 2 diabetes mellitus with circulatory disorder ([facility] V24, [facility] V28) active 2024-12-27 ProblemAct [facility]_THSFRAN Vascular problem active 2024-12-27 ProblemAct C T_THSFRAN CHF (congestive heart failure) ([facility] V24, [facility] V28) active ProblemAct CT_THSFRAN Chronic renal impairment, stage 3 (moderate) ([facility] V24, [facility] V28) active 2024-12-27 ProblemAct CT_THSFRAN
--- OUTSIDE RECORDS SUMMARY | 2025-03-28 08:52 | XMS_ITS | Clinical Summary ---
Author Organization [facility] Address [address] [place] [address] Phone Care Team Providers Care Integrity Analyst Name Role Phone Fredy Adair Primary Care Provider [phone] Medications omeprazole (PriLOSEC) [address] capsule [...] Phone Billing Address Personal/Family Self [address] ([id number]) [place] [address] [facility] ([id number]) [place] [address] Care Teams Integrity Analyst Relationship Specialty Start Date End Date Fredy Adair PA [address] [place] [address], [address] [place] [address] PCP - General Physician Pressure Steamer Tender 03/13/23
[2025-03-28 09:41] LABS: Platelet Count 416 X10*3/uL (160-400)
[2025-03-28 10:18] LABS: Alanine Aminotransferase 21 U/L (0-40); Aspartate Amino Transferase 32 U/L (5-37); Cholesterol 152 mg/dL (<200); Estimated Glomerular Filt Rate 48; HDL Cholesterol 47 mg/dL (>40); Triglycerides 138 mg/dL (<150)
[2025-03-28 10:45] LABS: Vitamin B12 601 pg/mL (200-900)
[2025-03-28 12:55] LABS: Appearance Urine Clear; Glucose Urine UA 500 mg/dL (Negative); PH 7.5 (5.0-9.0); Specific Gravity - Urine 1.015 (1.005-1.025)
[2025-03-28 14:09] LABS: Total Protein Urine Random 480 mg/dL (<12)
== END 2025-03-28 08:43 | disposition home or self-care (01) ==
LOC: HO.LAB 08:42
PROVIDERS: Absent Provider Internal Medicine Hypertension Specialist; PCP Physician Assistant Medical; Visit Provider Physician Assistant Medical
DX: N18.9 Chronic kidney disease, unspecified (principal); R79.89 Other specified abnormal findings of blood chemistry; E11.59 Type 2 diabetes mellitus with other circulatory complications; E78.5 Hyperlipidemia, unspecified; E11.9 Type 2 diabetes mellitus without complications; Z91.89 Other specified personal risk factors, not elsewhere classified
CPT/HCPCS: 36415; 80061; 81003; 82565; 82570; 82607; 84156; 84450; 84460; 85049

== ENCOUNTER 2025-04-07 08:09 | Outpatient (AMB) | payer OTHER, SELFPAY ==
--- OUTSIDE RECORDS SUMMARY | 2025-04-07 08:12 | XMS_ITS | Encounter Summary ---
Author Organization [employer] [place] [address] Care Team Providers Care Church Administrator Name Role Phone Fredy Adair Primary Care Provider [phone] Encounter Details Date Type Department Care Team (Late st Contact Info) Description 01/13/2025 Lab Requisition [facility] - Main Lab [address] [facility] [place] [address] Jeny Light MD 175 [facility] [address] [place] [address] Encounter for therapeutic drug level monitoring Social [...] AM EDT Office Visit Orthopedic Surgery - [place] [address] [address] Miguel A Villegas, DPM [address] [address] documented as of this encounter Procedures Procedure [...] Hold for add-ons. 01/13/2025 6:01 PM EDT [facility] Comment:Auto resulted. Blood Venous blood specimen / Unknown 01/13/2025 3:45 PM EDT 01/13/2025 4:34 PM EDT us Jeny Light MD LAB BLOOD ORDERABLES Final Resul t Performing Organization Address [facility]/ZIP Co de Phone Number [facility] [address] [place] [address], [place] [phone] * SST tube (01/13/2025 3:45 PM EDT) Extra Tube Hold for add-ons. 01/13/2025 6:01 PM EDT [facility] Comment:Auto resulted. Blood Venous blood specimen / Unknown 01/13/2025 3:45 PM EDT 01/13/2025 4:34 PM EDT us Jeny Light MD LAB BLOOD ORDERABLES Final Resul t Performing Organization Address [facility]/ZIP Co de Phone Number [facility] [address] [place] [address], [place] [phone] * (ABNORMAL) Basic metabolic panel (01/13/2025 3:45 PM EDT) Sodium 137 133 - 145 mmol/L LAB CHEMISTRY METHOD 01/13/2025 5:13 PM EDT [facility] Potassium 3.9 3.5 - 5.5 mmol/L LAB CHEMISTRY METHOD 01/13/2025 5:13 PM EDT [facility] Chloride 109 96 - 110 mmol/L LAB CHEMISTRY METHOD 01/13/2025 5:13 PM EDT [facility] CO2 21 21 - 32 mmol/L LAB CHEMISTRY METHOD 01/13/2025 5:13 PM EDT [facility] Anion Gap 7 3 - 11 LAB CHEMISTRY METHOD 01/13/2025 5:13 PM EDT [facility] Glucose 180(H) 70 - 100 mg/dL LAB CHEMISTRY METHOD 01/13/2025 5:13 PM EDT [facility] BUN 21 5 - 25 mg/dL LAB CHEMISTRY METHOD 01/13/2025 5:13 PM [facility] Creatinine 1.47(H) 0.70 - 1.30 mg/dL LAB CHEMISTRY METHOD 01/13/2025 5:13 PM EDT [facility] eGFR 57(L) >=60 mL/min/1. 73m2 LAB CHEMISTRY METHOD 01/13/2025 5:13 PM EDT [facility] Comment:Calculation based on the Chronic Kidney Disease Epidemiology Collaboration (CKD-EPI) equation refit without adjustment for race. BUN/Creatinine Ratio 14.3 LAB CHEMISTRY METHOD 01/13/2025 5:13 PM T [facility] Calcium 8.4(L) 8.5 - 10.5 mg/dL LAB CHEMISTRY METHOD 01/13/2025 5:13 PM [facility] Blood Venous blood specimen / Unknown 01/13/2025 3:45 PM EDT 01/13/2025 4:33 PM EDT us Jeny Light MD LAB BLOOD ORDERABLES Final Resul t [facility] [address] [place] [address], * Vancomycin, trough (01/13/2025 3:45 PM EDT) Vancomycin Trough 18.0 10.0 - 20.0 mcg/mL LAB CHEMISTRY METHOD 01/13/2025 5:13 PM EDT [facility] Blood Venous blood specimen / Unknown 01/13/2025 3:45 PM EDT 01/13/2025 4:33 PM EDT us Jeny Light MD LAB BLOOD ORDERABLES Final Resul t [facility] ([facility]) [facility] [address] [place] [address], documented in this encounter Visit Diagnoses Diagnosis Encounter for therapeutic drug level monitoring documented in this encounter Additional Health Concerns Infection Onset Date Last Indicated Resolved Time MRSA 12/26/2024 12/29/2024 documented as of this encounter Care Teams Church Administrator Relationship Specialty Start Date End Date Fredy Adair PA [address] [place] [address] PCP - General Internal Medicine 10/09/21 documented as of this encounter
--- OUTSIDE RECORDS SUMMARY | 2025-04-07 08:12 | XMS_ITS | Clinical Summary ---
Author Organization [facility] Address [address] [place] [address] Phone Care Team Providers Care Ecdis N Navigation Operator Name Role Phone Fredy Adair Primary Care Provider [phone] Medications omeprazole (PriLOSEC) [address] capsule [...] Visual Foot Exam 07/01/2023 Influenza Vaccine (#1) 2025 Insurance * Guarantor: Irving Barry Account Type Relation to Patient Date of Phone Billing Address Personal/Family Self 1970 [address] ([id number]) [place] [address] [facility] ([id number]) [place] [address] Care Teams Ecdis N Navigation Operator Relationship Specialty Start Date End Date Fredy Adair PA [address] [place] [address], [address] [place] [address] PCP - General Physician Documentation Designer 03/13/23
--- NOTE | 2025-04-07 08:13 | A.OFFVIS_ITS ---
Vital Signs 04/07/25 08:15 04/07/25 08:43 Height 5 ft 8 in Weight 215 lb 6.266 oz BMI 32.7 BP 134/78 127/78 Blood Pressure Location Rt brachial Position Sitting Pulse 81 Pulse Source Pulse Oximeter Pulse Oximetry (%) 99 Oxygen Delivery Method Room Air Intake Visit Reasons: Type II diabetes Intake Note: Patient present today to follow up on Type 2 Diabetes Mellitus. Last Diabetic Eye exam: Due Last Podiatry Visit: 4 weeks ago, right foot amputated Random Glucose: 189 mg/dl HgA1C: 9.9% 03/10/2025 Electronic Design Engineer Required: No Accompanied by: Self / Same As Patient Allergies No Known Allergies Allergy (Verified 04/07/25 08:16) Medication List - Last Reconciled 04/07/25 by [place] L[place] Simmons acetaminophen 650 mg PO Q6H PRN acetone (urine) test (Ketone Urine Test strips) As directed adhesive tape As directed alcohol swabs (Alcohol Pads) 1 pad topical QID amlodipine 10 mg PO DAILY apixaban (Eliquis) 5 mg PO DAILY atorvastatin 40 mg PO DAILY back brace As directed bisacodyl (Dulcolax (bisacodyl)) 10 mg (2 x 5 mg) PO BEDTIME 2 days blood pressure monitor (Blood Pressure Kit) As directed blood-glucose sensor (FreeStyle Jayla 3 Sensor device) apply new sensor every 14 days blood-glucose,insurance verification representative,cont (FreeStyle Jayla 3 [place]) Use daily to monitor blood glucose levels continuously. dulaglutide (Trulicity) 4.5 mg (0.5 mL) subcut QWEEK ferrous sulfate 325 mg PO DAILY gabapentin 300 mg PO BEDTIME 30 days glucose (Dex4 Glucose Quick Dissolve) 16 grams (4 x 4 gram) PO Q15M PRN insulin glargine U-300 conc (Toujeo Max U-300 SoloStar) 10 units subcut BEDTIME insulin lispro (Humalog KwikPen (U-100) Insulin) 12 units subcut TID losartan 100 mg PO DAILY 90 days metformin orally 2 times per day with meals; metoprolol succinate ER 50 mg PO DAILY miscellaneous medical supply 2 ea miscellaneous DAILY 99 days omeprazole 40 mg PO DAILY@0630 ondansetron 8 mg PO Q12H 15 days oxycodone 5 mg PO BID PRN 30 days pen needle, diabetic test 4 times daily pen needle, diabetic (BD Ultra-Fine Karen Pen Needle) As directed 4 times a day zolpidem (Ambien) 5 mg PO BEDTIME PRN 30 days HPI Comments Details: This is a 54-year-old male with a past medical history of type 2 diabetes, peripheral vascular disease and coronary artery disease presenting for diabetic management. He was diagnosed with diabetes about 14 years ago. He was hospitalized December 26 through 12/31/2024 for left foot ulcer with osteomyelitis complicated by MRSA infection. He had incision and drainage of the infected foot. He was treated with IV vancomycin. He is followed by wound care. He endorses chronic pain. Reviewed Leaky 3 plus data during the past 14 days Average sugar 204 High 64% Target range 36% 0% hypoglycemia Patient is experiencing hyperglycemia throughout 24 hours. Hemoglobin a1c 9.9% 03/10/25. Current medication regimen: Trulicity 3 mg weekly Metformin 500 mg twice daily. Toujeo to 10 units every evening (patient reports he has not taken this at all since his last visit) Humalog 12 units three times daily before meals. Past medication: Mounjaro discontinued when he switched Trulicity. Reported Mounjaro was not as effective for him. 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 Followed by Podiatry. Hyperlipidemia: treated with atorvastatin 40 mg Hypertension is treated with losartan, metoprolol and amlodipine. ROS: Constitutional: No unexplained weight loss, fever, , fatigue chills or night sweats. Eyes: No vision changes Respiratory: No shortness of breath Cardiovascular: No chest pain Gastrointestinal: No anorexia, nausea, vomiting or diarrhea. No abdominal pain or blood in stool. Neurologic: No headache, dizziness, syncope Endocrine: Denies polyuria, polydipsia. Physical exam: Constitutional: Alert, in no distress. Eyes: Pupils are equal, round and reactive to light. Extraocular muscles intact. Neck: Supple, Full range of motion. No lymphadenopathy. No palpable thyroid masses. Respiratory: Clear to auscultation. Cardiovascular: S1 S2 regular. No murmurs Neurologic: No focal neurological deficits Psychiatric: Normal mood and affect [facility] Medical History Abscess of periosteum without osteomyelitis Hospital discharge follow-up Amputation of left foot Pulmonary nodules Type 2 diabetes mellitus with vascular disease Microalbuminuria Decreased renal function Nausea and vomiting Left ventricular ejection fraction of 40-49% SOB (shortness of breath) on exertion Anemia DMII (diabetes mellitus, type 2) Open wound Anemia of chronic disease Peripheral vascular disease Diabetic foot ulcer Anemia Orthostatic hypotension Gangrene of toe of left foot GERD (gastroesophageal reflux disease) History of angiography PICC (peripherally inserted central catheter) in place Bacteremia Diabetic foot ulcer PAD (peripheral artery disease) Diabetes Surgical History History of surgery History of amputation below knee History of esophagogastroduodenoscopy (EGD) H/O colonoscopy (~10/26/23) History of transmetatarsal amputation of left foot Amputated toe of right foot (11/05/20) Family History Other Diabetes No family history of cancer Social History Household Members: None Housing: Apartment Are you a primary career and technology education teacher to a significant other at home: No Do you presently have visiting nurse or other home services: No Alcohol intake: current Alcohol intake frequency: holidays/special occasions only Alcohol type: hard liquor Comment: pt still feeling the same Patient Tobacco Use Status: Former Tobacco user Tobacco use type: Cigarette Cigarette Packs Per Day: 0.5 Cigarettes Per Day: 1 Years Smoked: 15 e-Cigarette/Vaping Use: Never Used Second Hand Smoke Exposure: Yes service: No Current occupational status: unemployed Cognitive needs: No Hearing needs: No Vision needs: No Physical Exam Vital Signs: Last Vital Signs Pulse 81 04/07/25 08:15 BP 134/78 04/07/25 08:15 Pulse Ox 99 04/07/25 08:15 Oxygen Delivery Method Room Air 04/07/25 08:15 BMI result Body Mass Index 32.7 Results Reviewed Results Reviewed: Laboratory Last Values Glucose (Clinic) 189 mg/dL (60-115) H 04/07/25 08:20 Laboratory Tests 03/14/24 03/10/25 03/28/25 08:15 09:18 09:10 Plt Count 416 H Creatinine 1.53 H Estimated GFR 48 Hgb A1c (Clinic) 9.9 H AST 32 ALT 21 Triglycerides 138 Cholesterol 152 LDL Cholesterol, Calc 78 HDL Cholesterol 47 Vitamin B12 601 Urine Creatinine Urine Microalbumin 1556.0 Microalb/Creat Ratio 1507.1 H 03/28/25 11:24 Plt Count Creatinine Estimated GFR Hgb A1c (Clinic) AST ALT Triglycerides Cholesterol LDL Cholesterol, Calc HDL Cholesterol Vitamin B12 Urine Creatinine 70.38 Urine Microalbumin Microalb/Creat Ratio Fib4 value 04/07/2025 is 0.87 points excluding advanced cirrhosis Assessment & Plan Assessment & Plan (1) Type 2 diabetes mellitus with vascular disease: Code(s): E11.59 - Type 2 diabetes mellitus with other circulatory complications Category: Medical (2) Microalbuminuria: Code(s): R80.9 - Proteinuria, unspecified Category: Medical Plan In summary this is a 54-year-old male with uncontrolled type 2 diabetes with micro and macrovascular complications. Reviewed importance of diabetic eye exam. Followed by Podiatry, Wound Care and Nephrology. Diabetic diet and lifestyle modifications reviewed with the patient. Continues to decline appointment with dietitian and chemical educator. Reviewed the importance of bringing his glucometer to all appointments. Increase Trulicity to 4.5 mg weekly. Restart Toujeo 10 units every evening. I explained the importance of taking his basal insulin. Continue Humalog (lispro) to 12 units three times daily before meals. Continue Metformin 500 mg twice daily. Written instructions reviewed for treating hypoglycemia. Follow up in 2 months for type 2 diabetes. Orders: Orders AMB Glucose Monitoring Today E11.9 - Type 2 diabetes mellitus without complications Medications: New dulaglutide (Trulicity) 4.5 mg (0.5 mL) subcut QWEEK 2 mL 3RF Discontinued dulaglutide (Trulicity) Discontinued Reason: Doctor's Order 3 mg (0.5 mL) subcut QWEEK 2 mL 3RF Patient Instructions: Increase Trulicity to 4.5 mg weekly Restart Toujeo 10 units every evening. Continue Humalog (lispro) to 12 units three times daily 15 minutes before meals. I Continue Metformin 500 mg twice daily. If you experience low blood sugar, treat this by eating a chewable fruit candy like skittles or jelly beans (about 8 pieces), 4 ounces (1/2 cup) of fruit juice (not diet), 1 tablespoon of honey or 4 glucose tablets. If your blood sugar is under 50, take double the amount of one of the above. Recheck your blood sugar in 15 minutes. Coding Level of Care Code Est Pt Level 4 (66519) Diagnoses Type 2 diabetes mellitus with vascular disease E11.59 Microalbuminuria R80.9
[2025-04-07 08:15] VITALS: BP 134/78; PULSE 81; O2SAT 99; BMI 32.7
[2025-04-07 08:24] LABS: Glucose, Whole Blood 189 mg/dL (60-115)
[2025-04-07 08:43] VITALS: BP 127/78
== END 2025-04-07 08:45 | disposition home or self-care (01) ==
LOC: HO.ENCR 08:10
PROVIDERS: PCP Internal Medicine; Visit Provider Physician Assistant Medical
DX: E11.59 Type 2 diabetes mellitus with other circulatory complications (principal); R80.9 Proteinuria, unspecified

== ENCOUNTER → 2025-04-07 08:09 | Outpatient (BNVA) | payer OTHER, SELFPAY | PROVIDERS: PCP Internal Medicine; Visit Provider Physician Assistant Medical | DX: E11.59 Type 2 diabetes mellitus with other circulatory complications (principal); R80.9 Proteinuria, unspecified | CPT/HCPCS: 82947; 99212 ==

== ENCOUNTER 2025-04-10 07:34 | Outpatient (REF) | payer OTHER, SELFPAY ==
--- NOTE | ~2025-04-10 | CT_ITS ---
EXAMINATION: CT CHEST WITHOUT IV CONTRAST INDICATION: R91.8 - Other nonspecific abnormal finding of lung field COMPARISON: Comparison is made with the prior examination dated 05/21/2022. Correlation is also made with an AP portable view of the chest dated 10/23/2023. TECHNIQUE: Helical CT scan of the chest was performed without intravenous contrast. Coronal and sagittal reformatted images were generated and reviewed. This CT exam was performed with one or more of the following dose reduction techniques: automated exposure control, adjustment of the mA and/or kV according to patient size, use of iterative reconstruction technique. DLP: 217 mGy-cm CHEST: THYROID: The thyroid is unremarkable. LUNGS: There is a 2 mm calcified granuloma in the left lower lobe (series 4, image 72). The lungs are otherwise clear. MEDIASTINUM: There is no mediastinal lymphadenopathy. JYOTHI: Evaluation of the hilar regions is limited by lack of intravenous contrast material. CARDIOVASCULATURE: The heart is normal in size. There is no pericardial effusion. The thoracic aorta is normal in caliber. DEGREE OF CORONARY CALCIFICATION: severe PLEURA: There is no pleural effusion. No pneumothorax. MAIN AIRWAYS: The mainstem bronchi and proximal branches are patent. AXILLA: There is no axillary lymphadenopathy. BONES AND SOFT TISSUES: Again seen is a fat-containing foramen of Bochdalek hernia on the left. The bones are intact. UPPER ABDOMEN: The visualized portions of the liver, spleen, and adrenals have an unremarkable unenhanced appearance. CT/CT chest wo IV con IMPRESSION: 1. Fat-containing foramen of Bochdalek hernia on the left without change. 2. 2 mm calcified granuloma in the left lower lobe. 3. Severe coronary arterial calcification. Electronically signed by: Dru Chacon MD 04/10/2025 08:39 AM EDT
--- OUTSIDE RECORDS SUMMARY | 2025-04-10 07:36 | XMS_ITS | Encounter Summary ---
Author Organization [place] [address] Care Team Providers Care Access Database Developer Name Role Phone Fredy Adair Primary Care Provider [phone] Encounter Details Date Type Department Care Team (Late st Contact Info) Description 01/13/2025 Lab Requisition [facility] [address] [facility] [place] [address] Jeny Light MD [address] [facility] [address] [place] [address] Encounter for therapeutic drug level monitoring Social [...] AM EDT Office Visit Orthopedic Surgery - [place] [address] [address] Miguel A Villegas, DPM [address] [address] documented as of this encounter Procedures Procedure [...] Hold for add-ons. 01/13/2025 6:01 PM EDT [facility] Comment:Auto resulted. Blood Venous blood specimen / Unknown 01/13/2025 3:45 PM EDT 01/13/2025 4:34 PM EDT us Jeny Light MD LAB BLOOD ORDERABLES Final Resul t Performing Organization Address [facility]/ZIP Co de Phone Number [facility] [address] [place] [address], [place] [phone] * SST tube (01/13/2025 3:45 PM EDT) Extra Tube Hold for add-ons. 01/13/2025 6:01 PM EDT [facility] Comment:Auto resulted. Blood Venous blood specimen / Unknown 01/13/2025 3:45 PM EDT 01/13/2025 4:34 PM EDT us Jeny Light MD LAB BLOOD ORDERABLES Final Resul t Performing Organization Address [facility]/ZIP Co de Phone Number [facility] [address] [place] [address], [place] [phone] * (ABNORMAL) Basic metabolic panel (01/13/2025 3:45 PM EDT) Sodium 137 133 - 145 mmol/L LAB CHEMISTRY METHOD 01/13/2025 5:13 PM EDT [facility] Potassium 3.9 3.5 - 5.5 mmol/L LAB CHEMISTRY METHOD 01/13/2025 5:13 PM EDT [facility] Chloride 109 96 - 110 mmol/L LAB CHEMISTRY METHOD 01/13/2025 5:13 PM EDT [facility] CO2 21 21 - 32 mmol/L LAB CHEMISTRY METHOD 01/13/2025 5:13 PM EDT [facility] Anion Gap 7 3 - 11 LAB CHEMISTRY METHOD 01/13/2025 5:13 PM EDT [facility] Glucose 180(H) 70 - 100 mg/dL LAB CHEMISTRY METHOD 01/13/2025 5:13 PM EDT [facility] BUN 21 5 - 25 mg/dL LAB CHEMISTRY METHOD 01/13/2025 5:13 PM [facility] Creatinine 1.47(H) 0.70 - 1.30 mg/dL LAB CHEMISTRY METHOD 01/13/2025 5:13 PM EDT [facility] eGFR 57(L) >=60 mL/min/1. 73m2 LAB CHEMISTRY METHOD 01/13/2025 5:13 PM EDT [facility] Comment:Calculation based on the Chronic Kidney Disease Epidemiology Collaboration (CKD-EPI) equation refit without adjustment for race. BUN/Creatinine Ratio 14.3 LAB CHEMISTRY METHOD 01/13/2025 5:13 PM T [facility] Calcium 8.4(L) 8.5 - 10.5 mg/dL LAB CHEMISTRY METHOD 01/13/2025 5:13 PM [facility] Blood Venous blood specimen / Unknown 01/13/2025 3:45 PM EDT 01/13/2025 4:33 PM EDT us Jeny Light MD LAB BLOOD ORDERABLES Final Resul t [facility] [address] [place] [address], * Vancomycin, trough (01/13/2025 3:45 PM EDT) Vancomycin Trough 18.0 10.0 - 20.0 mcg/mL LAB CHEMISTRY METHOD 01/13/2025 5:13 PM EDT [facility] Blood Venous blood specimen / Unknown 01/13/2025 3:45 PM EDT 01/13/2025 4:33 PM EDT us Jeny Light MD LAB BLOOD ORDERABLES Final Resul t [facility] (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
--- OUTSIDE RECORDS SUMMARY | 2025-04-10 07:36 | XMS_ITS | Clinical Summary ---
Author Organization [facility] Address [address] [place] [address] Phone Care Team Providers Care Greeting Card Maker Name Role Phone Fredy Aadir Primary Care Provider [phone] Medications omeprazole (PriLOSEC) [address] capsule [...] Phone Billing Address Personal/Family Self [address] ([id number]) [place] [address] [facility] ([id number]) [place] [address] Care Teams Greeting Card Maker Relationship Specialty Start Date End Date Fredy Adair PA [address] [place] [address], [address] [place] [address] PCP - General Physician Automated Logistics Specialist 03/13/23
== END 2025-04-10 07:35 | disposition home or self-care (01) ==
LOC: HO.CT 07:34
PROVIDERS: PCP Internal Medicine; Visit Provider Physician Assistant Medical
DX: R91.8 Other nonspecific abnormal finding of lung field (principal)
CPT/HCPCS: 71250

== ENCOUNTER → 2025-04-10 07:36 | Outpatient (BNV) | payer OTHER, SELFPAY | PROVIDERS: PCP Internal Medicine; Visit Provider Radiology Diagnostic Radiology | DX: Q79.0 Congenital diaphragmatic hernia (principal); I25.84 Coronary atherosclerosis due to calcified coronary lesion; J84.10 Pulmonary fibrosis, unspecified | CPT/HCPCS: 71250 ==

== ENCOUNTER 2025-06-21 10:06 | Outpatient (AMB) | payer OTHER, SELFPAY ==
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
[2025-06-21 10:31] VITALS: BP 130/70; PULSE 88; TEMP 36.2; O2SAT 99; BMI 33.5
--- OUTSIDE RECORDS SUMMARY | 2025-06-21 12:21 | XMS_ITS | Clinical Summary ---
Author Organization [address] [facility] Address [address] [place] [address] Phone Care Team Providers Care Cage Supervisor Name Role Phone Fredy Adair Primary [...] by mouth 2 (two) times a day. Active hydrALAZINE (APRESOLINE) 25 mg tablet Take 1 tablet (25 mg total) by mouth 3 (three) times a day. 90 each Active Active Problems Problem Noted Date Diagnosed Date Type 2 diabetes mellitus wit h left diabetic foot infection ([facility] V24, [facility] V28) 12/28/2024 Foot ulcer due to secondary DM ([facility] V24, [facility] V28) 12/27/2024 Type 2 diabetes mellitus wit h circulatory disorder ([facility] V24, [facility] V28) 12/27/2024 Vascular problem 12/27/2024 Chronic renal impairment, stage 3 (moderate) 09/2024 Peripheral vascular disease ([facility] V24) 2023 Iron (Fe) deficiency anemia 02/11/2021 Hyperlipidemia 01/11/2021 Diabetes mellitus type 2 wit h peripheral artery disease ([facility] V24, [facility] V28) 10/31/2020 Hypertension 02/10/2020 Tobacco use disorder 01/31/2019 CHF (congestive heart failure) ([facility] V24, [facility] V28) Encounters Date Type Department Care Team Description 06/12/2025 9:00 AM EDT Office Visit Orthopedic Surgery - [address] [phone] Miguel A Villegas, DESHAWN Controlled type 2 diabetes with neuropathy ([facility] V24, [facility] V28) (Primary Dx); History of amputation of left foot through metatarsal bone ([facility] V24, [facility] V28); PVD (peripheral vascular disease) ([facility] V24); Localized edema; Ulcer of heel and midfoot, left, with fat layer exposed ([facility] V24, [facility] V28) 05/24/2025 9:45 AM EDT Office Visit Orthopedic Surgery [facility] [address] [phone] Miguel A Villegas, DPM Controlled type 2 diabetes with neuropathy (CMS/HCC V24, CMS/HCC V28) (Primary Dx); History of amputation of left foot through metatarsal bone (CMS/HCC V24, CMS/HCC V28); PVD (peripheral vascular disease) (CMS/HCC V24); Ulcer of heel and midfoot, left, with fat layer exposed (CMS/HCC V24, CMS/HCC V28) 05/10/2025 9:00 AM EDT Office Visit Orthopedic Surgery [facility] [address] [phone] Miguel A Villegas, DPM Controlled type 2 diabetes with neuropathy (CMS/HCC V24, CMS/HCC V28) (Primary Dx); History of amputation of left foot through metatarsal bone (CMS/HCC V24, CMS/HCC V28); PVD (peripheral vascular disease) (CMS/HCC V24); Ulcer of heel and midfoot, left, with fat layer exposed (CMS/HCC V24, CMS/HCC V28); Cellulitis of left foot 04/19/2025 9:30 AM EDT Office Visit Orthopedic Surgery [facility] [address] [address] Miguel A Villegas, DPM Controlled type 2 diabetes with neuropathy (CMS/HCC V24, CMS/HCC V28) (Primary Dx); History of amputation of left foot through metatarsal bone (CMS/HCC V24, CMS/HCC V28); PVD (peripheral vascular disease) (CMS/HCC V24); Ulcer of heel and midfoot, left, with fat layer exposed (CMS/HCC V24, CMS/HCC V28) 03/23/2025 1:30 PM EDT Office Visit Orthopedic [facility] [address] [phone] Miguel A Villegas, DPM Controlled type 2 diabetes with neuropathy (CMS/HCC V24, CMS/HCC V28) (Primary Dx); History of amputation of left foot through metatarsal bone ([facility] V24, [facility] V28); PVD (peripheral vascular disease) ([facility] V24); Ulcer of heel and midfoot, left, with fat layer exposed ([facility] V24, [facility] V28) from Last 3 Months Surgical History [...] anemia; COMMENT: Herbert 01/2021 Peripheral vascular disease ([facility] V24) DX:Peripheral vascular disease ([facility]) Esophageal reflux DX:Esophageal reflux Anemia DX:Anemia Hyperlipidemia DX:Hyperlipidemi a Essential hypertension DX:Essent ial hypertension History of tobacco abuse DX:Hist ory of tobacco abuse CHF (congestive heart failur e) ([facility] V24, [facility] V28) Reduced EF 40-45% Family History Medical [...] 84 12/31/2024 2:18 PM EDT Temperature 37.2 C (99 F) 12/31/2024 2:18 PM EDT Respiratory Rate 16 12/31/2024 2:18 PM EDT Oxygen Saturation 100% 12/31/2024 2:18 PM EDT Inhaled Oxygen Concentration - - Weight 95.7 kg (211 lb) 03/23/2025 1:39 PM EDT Height 170.2 cm (5' 7.01 ) 03/02/2025 8:29 AM ED T Body Mass Index 33.04 03/02/2025 8:29 AM EDT Plan of Treatment Upcoming Encounters Date Type Department Care Team (Late st Contact Info) Description 06/28/2025 8:30 AM EDT Office Visit Orthopedic Surgery - [place] [address] [phone] Miguel A Villegas, DPMadhu [address] [address] Health Maintenance Due Date Last Done Comments COVID-19 Vaccine (#1) 1977 Diabetes: Annual Retina Eye Exam 1982 DTaP,Tdap,and Td Vaccines (1 - Tdap) 12/13/1991 Hepatitis B Vaccines (1 of 3 - 19+ 3-dose series) 12/13/1991 Pneumococcal Vaccine: 50+ Years (1 of 2 - PCV) 12/13/1991 Zoster Vaccines (1 of 2) 12/13/1991 Colorectal Cancer Screening: Colonoscopy 08/31/2022 HIV Screening 08/31/2022 Hepatitis C Screening 08/31/2022 Lung Cancer Screening (Low Dose CT) 08/31/2022 Medicare Annual Wellness Visit 08/31/2022 Social Influencers of Health Screening 08/31/2022 Diabetes: Annual Urine Albumin-Creatinine Ratio (uACR) 09/13/2022 02/12/2021 Diabetes: Blood Sugar Control Test (HGBA1C) 09/13/2022 05/17/2021 Depression Screening 09/28/2024 Influenza Vaccine (#1) 2025 Diabetes: Annual Foot Exam 12/27/2025 12/27/2024 Diabetes: Annual GFR (Glomerular Filtration Rate) 01/20/2026 01/20/2025, 01/13/2025, 01/06/2025, Additional history exists Hypertension/CHF/CAD Annual BMP Blood Test 01/20/2026 01/20/2025, 01/13/2025, 01/06/2025, Additional history exists Cholesterol Screening (Lipid Panel) 05/17/2026 05/17/2021 RSV Immunization Adult Patients (1 - 1-dose 75+ series) 12/13/2047 HIB Vaccines Aged Out No longer eligi [...] this topic Medical Devices Implanted Type Area Tool And Die Repairer Device Identifier Shelf Expiration Date Model / Serial / Lot Kit Karol Cullend Cure 10ml - Sn/A - [id number] Implanted:Qty : 1 on 12/29/2024 by Miguel A Villegas DPM at [facility] [employer] Left: Foot [employer] [id number] 05/28/2026 620-010 / N/A / [id number] Procedures Procedure Name Priority Date/Time Associated Diagnosis Comments BASIC METABOLIC PANEL Routine 01/20/2025 2:30 PM EDT Type 2 diabetes mellitus with foot ulcer (CODE) ([facility] V24, [facility] V28) HEMOGLOBIN A1C Routine 05/17/2021 LIPID PANEL Routine 05/17/2021 HM URINE ALBUMIN CREATININE RATIO Routine 02/12/2021 from Last 3 Months or Most Recently Relevant to Health Maintenance Results * (ABNORMAL) Basic metabolic panel (01/20/2025 2:30 PM EDT) Sodium 137 133 - 145 mmol/L LAB CHEMISTRY METHOD 01/20/2025 4:10 PM [facility] Potassium 4.0 3.5 - 5.5 mmol/L LAB CHEMISTRY METHOD 01/20/2025 4:10 PM [facility] Comment:Hemolysis present Chloride 106 96 - 110 mmol/L LAB CHEMISTRY METHOD 01/20/2025 4:10 PM [facility] CO2 22 21 - 32 mmol/L LAB CHEMISTRY METHOD 01/20/2025 4:10 PM [facility] Anion Gap 9 3 - 11 LAB CHEMISTRY METHOD 01/20/2025 4:10 PM [facility] Glucose 183(H) 70 - 100 mg/dL LAB CHEMISTRY METHOD 01/20/2025 4:10 PM [facility] BUN 20 5 - 25 mg/dL LAB CHEMISTRY METHOD 01/20/2025 4:10 PM [facility] Creatinine 1.67(H) 0.70 - 1.30 mg/dL LAB CHEMISTRY METHOD 01/20/2025 4:10 PM [facility] eGFR 49(L) >=60 mL/min/1. 73m2 LAB CHEMISTRY METHOD 01/20/2025 4:10 PM [facility] Comment:Calculation based on the Chronic Kidney Disease Epidemiology Collaboration (CKD-EPI) equation refit without adjustment for race. BUN/Creatinine Ratio 12.0 LAB CHEMISTRY METHOD 01/20/2025 4:10 PM [facility] Calcium 8.6 8.5 - 10.5 mg/dL LAB CHEMISTRY METHOD 01/20/2025 4:10 PM EDT [facility] Blood Venous blood specimen / Unknown 01/20/2025 2:30 PM EDT 01/20/2025 2:58 PM EDT Jeny Light MD LAB BLOOD ORDERABLES Final Resul t [facility] [address] [place] [address], * (ABNORMAL) Hemoglobin A1c (05/17/2021) Hemoglobin A1C 8.7(A) <=6.5 % Blood Venous blood specimen / Unknown Result [facility] Historical Provider LAB BLOOD ORDERABLES Kimberlee l Result * (ABNORMAL) Lipid panel (05/17/2021) LDL/HDL Ratio 3 0 - 4 Triglycerides 76 0 - 150 mg/dL Cholesterol 115 0 - 200 mg/dL HDL 38(A) >=40 mg/dL LDL Cholesterol 62 0 - 100 mg/dL Blood Venous blood specimen / Unknown Result [facility] Damion Zaidi MD LAB BLOOD ORDERABLES Kimberlee l Result * HM Urine Albumin Creatinine Ratio (02/12/2021) Pathologist [facility] Urine Albumin Creatinine Ratio Abstracted Historical Provider HEALTH MAINTENANCE Final Result from Last 3 Months or Most Recently Relevant to Health Maintenance Additional Health Concerns Infection Onset Date Last Indicated MRSA 12/26/2024 12/29/[address] [facility] MEDICARE Member Subscriber Plan / Payer (Ef fective 2023-Present) Name:IRVING HAHN Relation to Subscriber:Self Name:Irving Hahn Payer ID:[id number] Group ID:[id number] Type:Not on file Address: [address] [place] [phone] Advance Directives Documents on File Type Date Recorded Patient Lens Cutter Expl anation Health Care Decision (hx) 04/26/2024 [...] Guardado Spouse Health Care Agent Care Teams Cage Supervisor Relationship Specialty Start Date End Date Fredy Adair PA [address] [place] [address] PCP - General Internal Medicine 10/09/21
--- OUTSIDE RECORDS SUMMARY | 2025-06-21 12:21 | XMS_ITS | Encounter Summary ---
Author Organization [place] [address] Care Team Providers Care Infrastructure Technician Name Role Phone Fredy Adair Primary Care Provider [phone]- [phone] Encounter Details Date Type Department Care Team (Late st Contact Info) Description 01/04/2025 Lab Requisition [facility] - Main Lab [address] [place] [address] Nkechi Salazar PA [address] [place] [address] Essential (primary) hypertension Social History Tobacco Use [...] AM EDT Office Visit Orthopedic Surgery - [place] [address] [address] Miguel A Villegas, DPM [address] [address] documented as of this encounter Procedures Procedure [...] Hold for add-ons. 01/04/2025 7:01 PM EDT [facility] Comment:Auto resulted. Blood Venous blood specimen / Unknown 01/04/2025 3:45 PM EDT 01/04/2025 5:51 PM EDT Nkechi DUGGAN LAB BLOOD ORDERABLES Final Result [facility] [address] [place] [address], * (ABNORMAL) CBC auto differential (01/04/2025 3:45 PM EDT) WBC 9.7 4.8 - 10.8 K/mcL LAB HEMETOLOGY METHOD 01/04/2025 6:41 PM EDT [facility] RBC 2.90(L) 4.50 - 5.50 M/mcL LAB HEMETOLOGY METHOD 01/04/2025 6:41 PM EDT [facility] Hemoglobin 8.1(L) 13.5 - 17.5 g/dL LAB HEMETOLOGY METHOD 01/04/2025 6:41 PM EDT [facility] Hematocrit 26.4(L) 42.0 - 54.0 % LAB HEMETOLOGY METHOD 01/04/2025 6:41 PM EDT [facility] MCV 89.8 79.0 - 98.0 FL LAB HEMETOLOGY METHOD 01/04/2025 6:41 PM EDT [facility] MCH 27.6 27.0 - 32.0 pcg LAB HEMETOLOGY METHOD 01/04/2025 6:41 PM EDT [facility] MCHC 30.7(L) 32.0 - 37.0 g/dL LAB HEMETOLOGY METHOD 01/04/2025 6:41 PM EDT [facility] RDW 15.7(H) 11.0 - 15.0 % LAB HEMETOLOGY METHOD 01/04/2025 6:41 PM [facility] Platelets 608(H) 130 - 400 K/mcL LAB HEMETOLOGY METHOD 01/04/2025 6:41 PM [facility] MPV 9.7 7.0 - 11.0 FL LAB HEMETOLOGY METHOD 01/04/2025 6:41 PM [facility] NRBC 0.0 <1.0 % LAB HEMETOLOGY METHOD 01/04/2025 6:41 PM [facility] NRBC Absolute 0.00 <0.10 K/mcL LAB HEMETOLOGY METHOD 01/04/2025 6:41 PM [facility] Neutrophils Relative 73.6 % LAB HEMETOLOGY METHOD 01/04/2025 6:41 PM [facility] Lymphocytes Relative 14.2 % LAB HEMETOLOGY METHOD 01/04/2025 6:41 PM [facility] Monocytes Relative 5.9 % LAB HEMETOLOGY METHOD 01/04/2025 6:41 PM [facility] Eosinophils Relative 4.6 % LAB HEMETOLOGY METHOD 01/04/2025 6:41 PM [facility] Basophils Relative 1.2 % LAB HEMETOLOGY METHOD 01/04/2025 6:41 PM [facility] Immature Granulocytes Relative 0.5 % LAB HEMETOLOGY METHOD 01/04/2025 6:41 PM [facility] Neutrophils Absolute 7.11(H) 1.50 - 7.00 K/mcL LAB HEMETOLOGY METHOD 01/04/2025 6:41 PM [facility] Lymphocytes Absolute 1.37 1.00 - 5.00 K/mcL LAB HEMETOLOGY METHOD 01/04/2025 6:41 PM [facility] Monocytes Absolute 0.57 0.20 - 1.00 K/mcL LAB HEMETOLOGY METHOD 01/04/2025 6:41 PM EDT [facility] Eosinophils Absolute 0.44 0.00 - 0.50 K/mcL LAB HEMETOLOGY METHOD 01/04/2025 6:41 PM EDT [facility] Basophils Absolute 0.12 0.00 - 0.20 K/mcL LAB HEMETOLOGY METHOD 01/04/2025 6:41 PM EDT [facility] Immature Granulocytes Absolute 0.05(H) 0.00 - 0.03 K/mcL LAB HEMETOLOGY METHOD 01/04/2025 6:41 PM EDT [facility] Blood Venous blood specimen / Unknown 01/04/2025 3:45 PM EDT 01/04/2025 5:51 PM EDT Nkechi DUGGAN LAB BLOOD ORDERABLES Final Result [facility] [address] [place] [address], documented in this encounter Visit Diagnoses Diagnosis Essential (primary) hypertension Unspecified essential hypertension documented in this encounter Additional Health Concerns Infection Onset Date Last Indicated Resolved Time MRSA 12/26/2024 12/29/2024 documented as of this encounter Care Teams Infrastructure Technician Relationship Specialty Start Date End Date Fredy Adair PA [address] [place] [phone] PCP - General Internal Medicine 10/09/21 documented as of this encounter
--- OUTSIDE RECORDS SUMMARY | 2025-06-21 12:21 | XMS_ITS | Encounter Summary ---
Author Organization [facility] [address] Care Team Providers Care Lead Former Name Role Phone Fredy Adair Primary Care Provider [phone]- [phone] Encounter Details Date Type Department Care Team (Late st Contact Info) Description 01/06/2025 Lab Requisition [facility] - Main Lab 299 [facility] [place] [address] Jeny Light MD 175 [facility] [address] [place] [address] Encounter for therapeutic drug level monitoring Social [...] AM EDT Office Visit Orthopedic Surgery - [place] [address] [address] Miguel A Villegas, DPMadhu [address] [address] documented as of this encounter Procedures Procedure [...] Hold for add-ons. 01/06/2025 6:01 PM EDT [facility] Comment:Auto resulted. Blood Venous blood specimen / Unknown 01/06/2025 4:15 PM EDT 01/06/2025 4:49 PM EDT us Jeny Light MD LAB BLOOD ORDERABLES Final Resul t Performing Organization Address City/[facility]/ZIP Co de Phone Number [facility] [address] [place] [address], [place] [phone] * Vancomycin, trough (01/06/2025 4:15 PM EDT) [facility] Vancomycin Trough 19.1 10.0 - 20.0 mcg/mL LAB CHEMISTRY METHOD 01/06/2025 5:34 PM EDT [facility] Blood Venous blood specimen / Unknown 01/06/2025 4:15 PM EDT 01/06/2025 4:49 PM EDT us Jeny Light MD LAB BLOOD ORDERABLES Final Resul t Performing Organization Address [facility]/ZIP Co de Phone Number [facility] [address] [place] [address], [place] [phone] * (ABNORMAL) Basic metabolic panel (01/06/2025 4:15 PM EDT) Pathologist [facility] Sodium 140 133 - 145 mmol/L LAB CHEMISTRY METHOD 01/06/2025 5:33 PM EDT [facility] Potassium 4.1 3.5 - 5.5 mmol/L LAB CHEMISTRY METHOD 01/06/2025 5:33 PM EDT [facility] Chloride 111(H) 96 - 110 mmol/L LAB CHEMISTRY METHOD 01/06/2025 5:33 PM EDT [facility] CO2 21 21 - 32 mmol/L LAB CHEMISTRY METHOD 01/06/2025 5:33 PM EDT [facility] Anion Gap 8 3 - 11 LAB CHEMISTRY METHOD 01/06/2025 5:33 PM EDT [facility] Glucose 213(H) 70 - 100 mg/dL LAB CHEMISTRY METHOD 01/06/2025 5:33 PM EDT [facility] BUN 22 5 - 25 mg/dL LAB CHEMISTRY METHOD 01/06/2025 5:33 PM EDT [facility] Creatinine 1.62(H) 0.70 - 1.30 mg/dL LAB CHEMISTRY METHOD 01/06/2025 5:33 PM EDT [facility] eGFR 51(L) >=60 mL/min/1. 73m2 LAB CHEMISTRY METHOD 01/06/2025 5:33 PM EDT [facility] Comment:Calculation based on the Chronic Kidney Disease Epidemiology Collaboration (CKD-EPI) equation refit without adjustment for race. BUN/Creatinine Ratio 13.6 LAB CHEMISTRY METHOD 01/06/2025 5:33 PM EDT [facility] Calcium 8.8 8.5 - 10.5 mg/dL LAB CHEMISTRY METHOD 01/06/2025 5:33 PM EDT [facility] Blood Venous blood specimen / Unknown 01/06/2025 4:15 PM EDT 01/06/2025 4:49 PM EDT us Jeny Light MD LAB BLOOD ORDERABLES Final Resul t [facility] [address] [place] [address], documented in this encounter Visit Diagnoses Diagnosis Encounter for therapeutic drug level monitoring documented in this encounter Additional Health Concerns Infection Onset Date Last Indicated Resolved Time MRSA 12/26/2024 12/29/2024 documented as of this encounter Care Teams Lead Former Relationship Specialty Start Date End Date Fredy Adair PA [address] [place] [phone] PCP - General Internal Medicine 10/09/21 documented as of this encounter
--- OUTSIDE RECORDS SUMMARY | 2025-06-21 12:21 | XMS_ITS | Clinical Summary ---
Author Organization [facility] Address [address] [place] [address] Phone Care Team Providers Care Fruit Dryer Name Role Phone Fredy Adair Primary Care Provider [phone] Medications omeprazole (PriLOSEC) [address] capsule [...] Phone Billing Address Personal/Family Self [address] ([id number]) [place] [address] [facility] ([id number]) [place] [address] Care Teams Fruit Dryer Relationship Specialty Start Date End Date Fredy Adair PA [address] [place] [address], [address] [place] [address] PCP - General Physician Trumpet Player 03/13/23
--- OUTSIDE RECORDS SUMMARY | 2025-06-21 12:21 | XMS_ITS | Encounter Summary ---
Author Organization [facility] [place] [address] Care Team Providers Care Insole And Outsole Splitter Name Role Phone Fredy Adair Primary Care Provider [phone]- [phone] Encounter Details Date Type Department Care Team (Late st Contact Info) Description 01/20/[address] [facility] - Main Lab 299 [facility] [place] [address] Jeny Light MD 175 [facility] [address] [place] [address] Type 2 diabetes mellitus with foot ulcer (CODE) ([facility] V24, [facility] V28) Social History Tobacco Use Types [...] AM EDT Office Visit Orthopedic Surgery - [place] [address] [address] Miguel A Villegas, EDSHAWN [address] [address] documented as of this encounter Procedures Procedure Name Priority Date/Time Associated Diagnosis Comments SST - GOLD Routine 01/20/2025 2:30 PM EDT Type 2 diabetes mellitus with foot ulcer (CODE) (CMS/HCC V24, CMS/[facility] V28) CBC WITH AUTO DIFFERENTIAL Routine 01/20/2025 2:30 PM EDT Type 2 diabetes mellitus with foot ulcer (CODE) (CMS/HCC V24, CMS/HCC V28) CBC AND DIFFERENTIAL Routine 01/20/2025 2:30 PM EDT Type 2 diabetes mellitus with foot ulcer (CODE) ([facility] V24, [facility] V28) VANCOMYCIN, TROUGH Routine 01/20/2025 2: 30 PM EDT Type 2 diabetes mellitus with foot ulcer (CODE) ([facility] V24, [facility] V28) BASIC METABOLIC PANEL Routine 01/20/2025 2:30 PM EDT Type 2 diabetes mellitus with foot ulcer (CODE) ([facility] V24, [facility] V28) documented in this encounter Results * SST tube (01/20/2025 2:30 PM EDT) [facility] Extra Tube Hold for add-ons. 01/20/2025 4:01 PM EDT [facility] Comment:Auto resulted. Blood Venous blood specimen / Unknown 01/20/2025 2:30 PM EDT 01/20/2025 2:58 PM EDT us Jeny Light MD LAB BLOOD ORDERABLES Final Resul t [facility] [address] [place] [address], * (ABNORMAL) CBC auto differential (01/20/2025 2:30 PM EDT) [facility] WBC 9.7 4.8 - 10.8 K/mcL LAB HEMETOLOGY METHOD 01/20/2025 3:39 PM EDT [facility] RBC 2.80(L) 4.50 - 5.50 M/mcL LAB HEMETOLOGY METHOD 01/20/2025 3:39 PM EDT [facility] Hemoglobin 7.8(L) 13.5 - 17.5 g/dL LAB HEMETOLOGY METHOD 01/20/2025 3:39 PM EDT [facility] Hematocrit 24.1(L) 42.0 - 54.0 % LAB HEMETOLOGY METHOD 01/20/2025 3:39 PM EDT [facility] MCV 85.2 79.0 - 98.0 FL LAB HEMETOLOGY METHOD [facility]/20[facility]25 3[facility] MCH 27.6 27.0 - 32.0 pcg LAB HEMETOLOGY METHOD 01/20/2025 3:39 PM [facility] MCHC 32.4 32.0 - 37.0 g/dL LAB HEMETOLOGY METHOD 01/20/2025 3:39 PM [facility] RDW 16.2(H) 11.0 - 15.0 % LAB HEMETOLOGY METHOD 01/20/2025 3:39 PM [facility] Platelets 360 130 - 400 K/mcL LAB HEMETOLOGY METHOD 01/20/2025 3:39 PM [facility] MPV 9.6 7.0 - 11.0 FL LAB HEMETOLOGY METHOD 01/20/2025 3:39 PM [facility] NRBC 0.0 <1.0 % LAB HEMETOLOGY METHOD 01/20/2025 3:39 PM [facility] NRBC Absolute 0.00 <0.10 K/mcL LAB HEMETOLOGY METHOD 01/20/2025 3:39 PM [facility] Neutrophils Relative 67.2 % LAB HEMETOLOGY METHOD 01/20/2025 3:39 PM [facility] Lymphocytes Relative 16.3 % LAB HEMETOLOGY METHOD 01/20/2025 3:39 PM [facility] Monocytes Relative 10.7 % LAB HEMETOLOGY METHOD 01/20/2025 3:39 PM [facility] Eosinophils Relative 4.7 % LAB HEMETOLOGY METHOD 01/20/2025 3:39 PM [facility] Basophils Relative 0.7 % LAB HEMETOLOGY METHOD 01/20/2025 3:39 PM EDT [facility] Immature Granulocytes Relative 0.4 % LAB HEMETOLOGY METHOD 01/20/2025 3:39 PM EDT [facility] Neutrophils Absolute 6.50 1.50 - 7.00 K/mcL LAB HEMETOLOGY METHOD 01/20/2025 3:39 PM EDT [facility] Lymphocytes Absolute 1.57 1.00 - 5.00 K/mcL LAB HEMETOLOGY METHOD 01/20/2025 3:39 PM EDT [facility] Monocytes Absolute 1.03(H) 0.20 - 1.00 K/mcL LAB HEMETOLOGY METHOD 01/20/2025 3:39 PM EDT [facility] Eosinophils Absolute 0.45 0.00 - 0.50 K/mcL LAB HEMETOLOGY METHOD 01/20/2025 3:39 PM EDT [facility] Basophils Absolute 0.07 0.00 - 0.20 K/mcL LAB HEMETOLOGY METHOD 01/20/2025 3:39 PM EDT [facility] Immature Granulocytes Absolute 0.04(H) 0.00 - 0.03 K/mcL LAB HEMETOLOGY METHOD 01/20/2025 3:39 PM EDT [facility] Blood Venous blood specimen / Unknown 01/20/2025 2:30 PM EDT 01/20/2025 2:58 PM EDT us Jeny Light MD LAB BLOOD ORDERABLES Final Resul t [facility] [address] [place] [address], * Vancomycin, trough (01/20/2025 2:30 PM EDT) Vancomycin Trough 17.2 10.0 - 20.0 mcg/mL LAB CHEMISTRY METHOD 01/20/2025 4:10 PM [facility] Blood Venous blood specimen / Unknown 01/20/2025 2:30 PM EDT 01/20/2025 2:58 PM EDT us Jeny Light MD LAB BLOOD ORDERABLES Final Resul t [facility] [address] [place] [address], [place] [phone] * (ABNORMAL) Basic metabolic panel (01/20/2025 2:30 PM EDT) Sodium 137 133 - 145 mmol/L LAB CHEMISTRY METHOD 01/20/2025 4:10 PM [facility] Potassium 4.0 3.5 - 5.5 mmol/L LAB CHEMISTRY METHOD 01/20/2025 4:10 PM [facility] Comment:Hemolysis present Chloride 106 96 - 110 mmol/L LAB CHEMISTRY METHOD 01/20/2025 4:10 PM [facility] CO2 22 21 - 32 mmol/L LAB CHEMISTRY METHOD 01/20/2025 4:10 PM [facility] Anion Gap 9 3 - 11 LAB CHEMISTRY METHOD 01/20/2025 4:10 PM [facility] Glucose 183(H) 70 - 100 mg/dL LAB CHEMISTRY METHOD 01/20/2025 4:10 PM [facility] BUN 20 5 - 25 mg/dL LAB CHEMISTRY METHOD 01/20/2025 4:10 PM [facility] Creatinine 1.67(H) 0.70 - 1.30 mg/dL LAB CHEMISTRY METHOD 01/20/2025 4:10 PM [facility] eGFR 49(L) >=60 mL/min/1. 73m2 LAB CHEMISTRY METHOD 01/20/2025 4:10 PM [facility] Comment:Calculation based on the Chronic Kidney Disease Epidemiology Collaboration (CKD-EPI) equation refit without adjustment for race. BUN/Creatinine Ratio 12.0 LAB CHEMISTRY METHOD 01/20/2025 4:10 PM EDT [facility] Calcium 8.6 8.5 - 10.5 mg/dL LAB CHEMISTRY METHOD 01/20/2025 4:10 PM EDT [facility] Blood Venous blood specimen / Unknown 01/20/2025 2:30 PM EDT 01/20/2025 2:58 PM EDT us Jeny Light MD LAB BLOOD ORDERABLES Final Resul t [facility] [address] [place] [address], documented in this encounter Visit Diagnoses Diagnosis Type 2 diabetes mellitus with foot ulcer (CODE) ([facility] V24, [facility] V28) documented in this encounter Additional Health Concerns Infection Onset Date Last Indicated Resolved Time MRSA 12/26/2024 12/29/2024 documented as of this encounter Care Teams Insole And Outsole Splitter Relationship Specialty Start Date End Date Fredy Adair PA [address] [place] [phone] PCP - General Internal Medicine 10/09/21 documented as of this encounter
--- OUTSIDE RECORDS SUMMARY | 2025-06-21 12:21 | XMS_ITS | Encounter Summary ---
Author Organization [employer] [place] [address] Care Team Providers Care Technician Name Role Phone Fredy Adair Primary Care Provider [phone]- [phone] Encounter Details Date Type Department Care Team (Late st Contact Info) Description 01/13/[address] [facility] - Main Lab 299 [facility] [place] [address] Jeny Light MD 175 [facility] [address] [place] [address] Encounter for therapeutic drug level monitoring Social [...] AM EDT Office Visit Orthopedic Surgery - [place] [address] [phone] Miguel A Villegas, DPM [address] [address] documented as of this encounter Procedures Procedure [...] t Performing Organization Address [facility]/ZIP Co de Phone Number [facility] [address] [place] [address], [place] [phone] * SST tube (01/13/2025 3:45 PM EDT) Extra Tube Hold for add-ons. 01/13/2025 6:01 PM EDT [facility] Comment:Auto resulted. Blood Venous blood specimen / Unknown 01/13/2025 3:45 PM EDT 01/13/2025 4:34 PM EDT us Jeny Light MD LAB BLOOD ORDERABLES Final Resul t Performing Organization Address [facility]/ZIP Co de Phone Number [facility] [address] [place] [address], [place] [phone] * (ABNORMAL) Basic metabolic panel (01/13/2025 3:45 [...] [facility] [address] [place] [address], * Vancomycin, trough (01/13/2025 3:45 PM EDT) Vancomycin Trough 18.0 10.0 - 20.0 mcg/mL LAB CHEMISTRY METHOD 01/13/2025 5:13 PM EDT [facility] Blood Venous blood specimen / Unknown 01/13/2025 3:45 PM EDT 01/13/2025 4:33 PM EDT us Jeny Light MD LAB BLOOD ORDERABLES Final Resul t [facility] ([facility] [address] [place] [address], documented in this encounter Visit Diagnoses Diagnosis Encounter for therapeutic drug level monitoring documented in this encounter Additional Health Concerns Infection Onset Date Last Indicated Resolved Time MRSA 12/26/2024 12/29/2024 documented as of this encounter Care Teams Technician Relationship Specialty Start Date End Date Fredy Adair PA [address] [place] [phone] PCP - General Internal Medicine 10/09/21 documented as of this encounter
== END 2025-06-21 10:51 | disposition home or self-care (01) ==
LOC: HO.HMCH 10:07
PROVIDERS: PCP Internal Medicine; Visit Provider Internal Medicine
DX: E11.52 Type 2 diabetes mellitus with diabetic peripheral angiopathy with gangrene (principal); Z79.4 Long term (current) use of insulin

== ENCOUNTER → 2025-06-21 10:06 | Outpatient (BNVA) | payer OTHER, SELFPAY | PROVIDERS: PCP Internal Medicine; Visit Provider Internal Medicine | DX: E11.52 Type 2 diabetes mellitus with diabetic peripheral angiopathy with gangrene (principal); G89.29 Other chronic pain; M54.50 Low back pain, unspecified; Z79.4 Long term (current) use of insulin; Z79.891 Long term (current) use of opiate analgesic; Z89.512 Acquired absence of left leg below knee; Z89.511 Acquired absence of right leg below knee | CPT/HCPCS: 99212 ==

== ENCOUNTER 2025-06-23 08:45 | Outpatient (AMB) | payer OTHER, SELFPAY ==
[2025-06-23 09:09] VITALS: BP 120/76; PULSE 75; O2SAT 98; BMI 33.5
--- NOTE | 2025-06-23 09:09 | A.OFFVIS_ITS ---
Vital Signs 06/23/25 09:09 Height 5 ft 8 in Weight 220 lb 7.396 oz BMI 33.5 BP 120/76 Blood Pressure Location Rt brachial Position Sitting Pulse 75 Pulse Source Pulse Oximeter Pulse Oximetry (%) 98 Oxygen Delivery Method Room Air Intake Visit Reasons: Type II diabetes Intake Note: Patient present today to follow up on Type 2 Diabetes Mellitus. Last Diabetic Eye exam: Needs a new referral Last Podiatry Visit: 05/2025, Dr Cardona at [facility] Random Glucose: 170 mg/dL HgA1C: 7.6%, 06/23/2025 Report Period: 06/08/2025 - 06/21/2025 (14 days) Generated: 06/23/2025 Time CGM Active: 96% Glucose Statistics and Targets Average Glucose: 167 mg/dL Glucose Management Indicator (GMI): 7.3% Glucose Variability (%CV): 29.7% Target Range: 70 - 180 mg/dL Time in Ranges Very High: >250 mg/dL --- 5% High: 181 - 250 mg/dL --- 31% Target Range: 70 - 180 mg/dL --- 63% Low: 54 - 69 mg/dL --- 1% Very Low: <54 mg/dL --- 0% Fibreglass Lay Up Worker Required: No Accompanied by: Self / Same As Patient Allergies No Known Allergies Allergy (Verified 06/23/25 09:21) Medication List - Last Reconciled 06/23/25 by OLGA LIDIA Simmons acetaminophen 650 mg PO Q6H PRN acetone (urine) test (Ketone Urine Test strips) As directed adhesive tape As directed alcohol swabs (Alcohol Pads) 1 pad topical QID amlodipine 10 mg PO DAILY apixaban (Eliquis) 5 mg PO DAILY atorvastatin 40 mg PO DAILY back brace As directed bisacodyl (Dulcolax (bisacodyl)) 10 mg (2 x 5 mg) PO BEDTIME 2 days blood pressure monitor (Blood Pressure Kit) As directed blood sugar diagnostic (FreeStyle Lite Strips) As directed to check glucose 3 times daily blood-glucose meter (FreeStyle Lite Meter kit) As directed blood-glucose sensor (FreeStyle Jayla 3 Plus Sensor device) Apply 1 new sensor every 15 days as directed to monitor blood glucose continuously. blood-glucose,data entry coordinator,cont (FreeStyle Jayla 3 [place]) Use daily to monitor blood glucose levels continuously. dulaglutide (Trulicity) 4.5 mg (0.5 mL) subcut QWEEK ferrous sulfate 325 mg PO DAILY gabapentin 300 mg PO BEDTIME 30 days glucose (Dex4 Glucose Quick Dissolve) 16 grams (4 x 4 gram) PO Q15M PRN insulin lispro (Humalog KwikPen (U-100) Insulin) subcutaneously 3 times a day; 10 units before breakfast, 12 units before lunch, 10 units before dinner lancets (FreeStyle Lancets) Use to monitor blood glucose 3 times daily. losartan 100 mg PO DAILY 90 days metformin orally 2 times per day with meals; metoprolol succinate ER 50 mg PO DAILY miscellaneous medical supply 2 ea miscellaneous DAILY 99 days omeprazole 40 mg PO DAILY@0630 ondansetron 8 mg PO Q12H 15 days oxycodone 5 mg PO BID PRN 30 days pen needle, diabetic test 4 times daily pen needle, diabetic (BD Ultra-Fine Karen Pen Needle) As directed 4 times a day zolpidem (Ambien) 5 mg PO BEDTIME PRN 30 days HPI Comments Details: This is a 54-year-old male with a past medical history of type 2 diabetes, peripheral vascular disease and coronary artery disease presenting for diabetic management. He was diagnosed with diabetes about 14 years ago. Hemoglobin a1c 7.6% today down from 9.9% 03/10/25. GMI 7.3% Time in Ranges Very High: >250 mg/dL --- 5% High: 181 - 250 mg/dL --- 31% Target Range: 70 - 180 mg/dL --- 63% Low: 54 - 69 mg/dL --- 1% Very Low: <54 mg/dL --- 0% Hyperglycemia postprandially mid day and in the evening. Some hypoglyemia overnight. Treats with OJ. Current medication regimen: Trulicity to 4.5 mg weekly. Toujeo 10 units every evening. He has stopped this due to hypoglycemia and forgetting to take it. Humalog (lispro) to 12 units three times daily before meals. He is taking only 10 units and administering this after he eats. He eats dinner at 7 pm and administers it around 10 pm. Metformin 500 mg twice daily. Past medication: Mounjaro discontinued when he switched Trulicity. Reported M ounjaro was not as effective for him. Hyperglycemia symptoms: None Eye exam: Referred to [facility]. He needs to schedule this. Gave him the contact # today. Podiatry: [place] Microvascular complications: retinopathy, nephropathy, neuropathy Macrovascular complications: Diabetic ulcers, osteomyeylitis, PVD, CAD, below knee amputation of right leg March 2024, amputation of toes on the left foot. Hyperlipidemia: treated with atorvastatin 40 mg Hypertension is treated with losartan, metoprolol and amlodipine. ROS: Constitutional: No unexplained weight loss, fever,, fatigue chills or night sweats. Eyes: No vision changes Respiratory: No shortness of breath Cardiovascular: No chest pain Gastrointestinal: No anorexia, nausea, vomiting or diarrhea. No abdominal pain or blood in stool. Neurologic: No headache, dizziness, syncope Endocrine: Denies polyuria, polydipsia. Physical exam: Constitutional: Alert, in no distress. Eyes: Pupils are equal, round and reactive to light. Extraocular muscles intact. Neck: Supple, Full range of motion. No lymphadenopathy. No palpable thyroid masses. Respiratory: Clear to auscultation. Cardiovascular: S1 S2 regular. No murmurs Neurologic: No focal neurological deficits Psychiatric: Normal mood and affect [facility] Medical History Congenital hernia of foramen of [place] Abscess of periosteum without osteomyelitis Hospital discharge follow-up Amputation of left foot Pulmonary nodules Type 2 diabetes mellitus with vascular disease Microalbuminuria Decreased renal function Nausea and vomiting Left ventricular ejection fraction of 40-49% SOB (shortness of breath) on exertion Anemia DMII (diabetes mellitus, type 2) Open wound Anemia of chronic disease Peripheral vascular disease Diabetic foot ulcer Anemia Orthostatic hypotension Gangrene of toe of left foot GERD (gastroesophageal reflux disease) History of angiography PICC (peripherally inserted central catheter) in place Bacteremia Diabetic foot ulcer PAD (peripheral artery disease) Diabetes Surgical History History of surgery History of amputation below knee History of esophagogastroduodenoscopy (EGD) H/O colonoscopy (~10/26/23) History of transmetatarsal amputation of left foot Amputated toe of right foot (11/05/20) Family History Other Diabetes No family history of cancer Social History Household Members: None Housing: Apartment Are you a primary care professional to a significant other at home: No Do you presently have visiting nurse or other home services: No Alcohol intake: current Alcohol intake frequency: holidays/special occasions on ly Alcohol type: hard liquor Comment: pt still feeling the same Patient Tobacco Use Status: Former Tobacco user Tobacco use type: Cigarette Cigarette Packs Per Day: 0.5 Cigarettes Per Day: 1 Years Smoked: 15 e-Cigarette/Vaping Use: Never Used Second Hand Smoke Exposure: Yes service: No Current occupational status: unemployed Cognitive needs: No Hearing needs: No Vision needs: No Physical Exam Vital Signs: Last Vital Signs Pulse 75 06/23/25 09:09 BP 120/76 06/23/25 09:09 Pulse Ox 98 06/23/25 09:09 Oxygen Delivery Method Room Air 06/23/25 09:09 BMI result Body Mass Index 33.5 Office Procedures Glucose Monitoring Details Details: See HPI 99770 - Glucose monitoring, continuous-physician I&R Procedure code (CPT) selection complete Results AMB Hemoglobin A1c AMB Hemoglobin A1c 7.6 % Last Edit by JEWEL Alberto on 06/23/25 09:23 Results Reviewed Results Reviewed: Laboratory Last Values Glucose (Clinic) 170 mg/dL (60-115) H 06/23/25 09:14 Hgb A1c (Clinic) 7.6 % (4.0-6.0) H 06/23/25 09:22 Laboratory Tests 03/14/24 03/28/25 08:15 09:10 Creatinine 1.53 H Estimated GFR 48 AST 32 ALT 21 Triglycerides 138 Cholesterol 152 LDL Cholesterol, Calc 78 HDL Cholesterol 47 Vitamin B12 601 Urine Creatinine 103.24 Urine Microalbumin 1556.0 Microalb/Creat Ratio 1507.1 H Assessment & Plan Assessment & Plan (1) Type 2 diabetes mellitus with vascular disease: Code(s): E11.59 - Type 2 diabetes mellitus with other circulatory complications Category: Medical (2) Microalbuminuria: Code(s): R80.9 - Proteinuria, unspecified Category: Medical (3) Hypertension: Code(s): I10 - Essential (primary) hypertension Category: Medical Qualifiers: Hypertension type: essential hypertension Qualified Code(s): I10 - Essential (primary) hypertension Plan In summary this is a 54-year-old male with suboptimally controlled albeit improving type 2 diabetes with micro and macrovascular complications. Reviewed importance of diabetic eye exam. Patient will call to schedule this. Followed by Podiatry, Wound Care and Nephrology. Diabetic diet and lifestyle modifications reviewed with the patient. Continues to decline appointment with dietitian and staff educator. Reviewed the importance of bringing his glucometer to all appointments. Continue Trulicity to 4.5 mg weekly. Take Humalog (lispro) to 10 units BEFORE breakfast, 12 units BEFORE lunch and 10 units BEFORE dinner. I explained that low blood sugars overnight are due to taking Humalog incorrectly. He understands. He will call if he continues to have low blood sugars despite adjusting the administration. Continue Metformin 500 mg twice daily. Written instructions reviewed for treating hypoglycemia. Advance to Jayla 3 +. Hypertension is well-controlled. Continue current regimen. He is on an Arb for renal protection. LDL near goal. Reviewed lifestyle modifications and low-cholesterol diet. Continue atorvastatin. Follow up in 3 months for type 2 diabetes. Orders: Orders AMB Hemoglobin A1c Today E11.59 - Type 2 diabetes mellitus with other circulatory complications AMB Glucose Monitoring Today E11.9 - Type 2 diabetes mellitus without complications Medications: New blood-glucose sensor (FreeStyle Jayla 3 Plus Sensor device) Apply 1 new sensor every 15 days as directed to monitor blood glucose continuously. 6 ea 3RF E11.59 - Type 2 diabetes mellitus with other circulatory complications Discontinued blood-glucose sensor (FreeStyle Jayla 3 Sensor device) Discontinued Reason: Doctor's Order apply new sensor every 14 days 2 ea 11RF E11.59 - Type 2 diabetes mellitus with other circulatory complications Patient Instructions: Continue Trulicity 4.5 mg weekly. Take Humalog (lispro) to 10 units BEFORE breakfast, 12 units BEFORE lunch and 10 units BEFORE dinner. Continue Metformin 500 mg twice daily. If you experience low blood sugar, treat this by eating a chewable fruit candy like skittles or jelly beans (about 8 pieces), 4 ounces (1/2 cup) of fruit juice (not diet), 1 tablespoon of honey or 4 glucose tablets. If your blood sugar is under 50, take double the amount of one of the above. Recheck your blood sugar in 15 minutes. [phone]?Phone number [facility] Coding Level of Care Code Est Pt Level 4 (32270) Diagnoses Type 2 diabetes mellitus with vascular disease E11.59 Microalbuminuria R80.9 Hypertension I10 Hypertension type: essential hypertension CPT Codes Details - CPT: 78032 - Glucose monitoring, continuous-physician I&R ([id number])
[2025-06-23 09:18] LABS: Glucose, Whole Blood 170 mg/dL (60-115)
--- OUTSIDE RECORDS SUMMARY | 2025-06-23 09:23 | XMS_ITS | Encounter Summary ---
Author Organization [place] [address] Care Team Providers Care Risk And Compliance Analytics Director Name Role Phone Fredy Adair Primary Care Provider [phone] Encounter Details Date Type Department Care Team (Late st Contact Info) Description 01/20/2025 Lab Requisition [facility] - Main Lab [address] [facility] [place] [address] Jeny Light MD 175 [facility] [address] [place] [address] Type 2 diabetes mellitus with foot ulcer (CODE) ([facility] V24, [facility] V28) Social History Tobacco Use Types Packs/Day [...] AM EDT Office Visit Orthopedic Surgery - [place] [id number] [address] Miguel A Villegas, DESHAWN [address] [address] documented as of this encounter Procedures Procedure Name Priority Date/Time Associated Diagnosis Comments SST - GOLD Routine 01/20/2025 2:30 PM EDT Type 2 diabetes mellitus with foot ulcer (CODE) (CMS/HCC V24, CMS/[facility] V28) CBC WITH AUTO DIFFERENTIAL Routine 01/20/2025 2:30 PM EDT Type 2 diabetes mellitus with foot ulcer (CODE) (CMS/HCC V24, CMS/HCC V28) CBC AND DIFFERENTIAL Routine 01/20/2025 2:30 PM EDT Type 2 diabetes mellitus with foot ulcer (CODE) ([facility] V24, [facility] V28) VANCOMYCIN, TROUGH Routine 01/20/2025 2: 30 PM EDT Type 2 diabetes mellitus with foot ulcer (CODE) ([facility] V24, [facility] V28) BASIC METABOLIC PANEL Routine 01/20/2025 2:30 PM EDT Type 2 diabetes mellitus with foot ulcer (CODE) ([facility] V24, [facility] V28) documented in this encounter Results * SST tube (01/20/2025 2:30 PM EDT) [facility] Extra Tube Hold for add-ons. 01/20/2025 4:01 PM EDT [facility] Comment:Auto resulted. Blood Venous blood specimen / Unknown 01/20/2025 2:30 PM EDT 01/20/2025 2:58 PM EDT us eJny Light MD LAB BLOOD ORDERABLES Final Resul t [facility] [address] [place] [address], * (ABNORMAL) CBC auto differential (01/20/2025 2:30 PM EDT) [facility] WBC 9.7 4.8 - 10.8 K/mcL LAB HEMETOLOGY METHOD 01/20/2025 3:39 PM EDT [facility] RBC 2.80(L) 4.50 - 5.50 M/mcL LAB HEMETOLOGY METHOD 01/20/2025 3:39 PM EDT [facility] Hemoglobin 7.8(L) 13.5 - 17.5 g/dL LAB HEMETOLOGY METHOD 01/20/2025 3:39 PM EDT [facility] Hematocrit 24.1(L) 42.0 - 54.0 % LAB HEMETOLOGY METHOD 01/20/2025 3:39 PM EDT [facility] MCV 85.2 79.0 - 98.0 FL LAB HEMETOLOGY [facility] MCH 27.6 27.0 - 32.0 pcg LAB HEMETOLOGY METHOD 01/20/2025 3:39 PM [facility] MCHC 32.4 32.0 - 37.0 g/dL LAB HEMETOLOGY METHOD 01/20/2025 3:39 PM [facility] RDW 16.2(H) 11.0 - 15.0 % LAB HEMETOLOGY METHOD 01/20/2025 3:39 PM [facility] Platelets 360 130 - 400 K/mcL LAB HEMETOLOGY METHOD 01/20/2025 3:39 PM [facility] MPV 9.6 7.0 - 11.0 FL LAB HEMETOLOGY METHOD 01/20/2025 3:39 PM [facility] NRBC 0.0 <1.0 % LAB HEMETOLOGY METHOD 01/20/2025 3:39 PM [facility] NRBC Absolute 0.00 <0.10 K/mcL LAB HEMETOLOGY METHOD 01/20/2025 3:39 PM [facility] Neutrophils Relative 67.2 % LAB HEMETOLOGY METHOD 01/20/2025 3:39 PM [facility] Lymphocytes Relative 16.3 % LAB HEMETOLOGY METHOD 01/20/2025 3:39 PM [facility] Monocytes Relative 10.7 % LAB HEMETOLOGY METHOD 01/20/2025 3:39 PM [facility] Eosinophils Relative 4.7 % LAB HEMETOLOGY METHOD 01/20/2025 3:39 PM [facility] Basophils Relative 0.7 % LAB HEMETOLOGY METHOD 01/20/2025 3:39 PM EDT [facility] Immature Granulocytes Relative 0.4 % LAB HEMETOLOGY METHOD 01/20/2025 3:39 PM EDT [facility] Neutrophils Absolute 6.50 1.50 - 7.00 K/mcL LAB HEMETOLOGY METHOD 01/20/2025 3:39 PM EDT [facility] Lymphocytes Absolute 1.57 1.00 - 5.00 K/mcL LAB HEMETOLOGY METHOD 01/20/2025 3:39 PM EDT [facility] Monocytes Absolute 1.03(H) 0.20 - 1.00 K/mcL LAB HEMETOLOGY METHOD 01/20/2025 3:39 PM EDT [facility] Eosinophils Absolute 0.45 0.00 - 0.50 K/mcL LAB HEMETOLOGY METHOD 01/20/2025 3:39 PM EDT [facility] Basophils Absolute 0.07 0.00 - 0.20 K/mcL LAB HEMETOLOGY METHOD 01/20/2025 3:39 PM EDT [facility] Immature Granulocytes Absolute 0.04(H) 0.00 - 0.03 K/mcL LAB HEMETOLOGY METHOD 01/20/2025 3:39 PM EDT [facility] Blood Venous blood specimen / Unknown 01/20/2025 2:30 PM EDT 01/20/2025 2:58 PM EDT us Jeny Light MD LAB BLOOD ORDERABLES Final Resul t [facility] [address] [place] [address], * Vancomycin, trough (01/20/2025 2:30 PM EDT) Vancomycin Trough 17.2 10.0 - 20.0 mcg/mL LAB CHEMISTRY METHOD 01/20/2025 4:10 PM [facility] Blood Venous blood specimen / Unknown 01/20/2025 2:30 PM EDT 01/20/2025 2:58 PM EDT us Jeny Light MD LAB BLOOD ORDERABLES Final Resul t [facility] [address] [place] [address], [place] [phone] * (ABNORMAL) Basic metabolic panel (01/20/2025 2:30 PM EDT) Sodium 137 133 - 145 mmol/L LAB CHEMISTRY METHOD 01/20/2025 4:10 PM [facility] Potassium 4.0 3.5 - 5.5 mmol/L LAB CHEMISTRY METHOD 01/20/2025 4:10 PM [facility] Comment:Hemolysis present Chloride 106 96 - 110 mmol/L LAB CHEMISTRY METHOD 01/20/2025 4:10 PM [facility] CO2 22 21 - 32 mmol/L LAB CHEMISTRY METHOD 01/20/2025 4:10 PM [facility] Anion Gap 9 3 - 11 LAB CHEMISTRY METHOD 01/20/2025 4:10 PM [facility] Glucose 183(H) 70 - 100 mg/dL LAB CHEMISTRY METHOD 01/20/2025 4:10 PM [facility] BUN 20 5 - 25 mg/dL LAB CHEMISTRY METHOD 01/20/2025 4:10 PM [facility] Creatinine 1.67(H) 0.70 - 1.30 mg/dL LAB CHEMISTRY METHOD 01/20/2025 4:10 PM [facility] eGFR 49(L) >=60 mL/min/1. 73m2 LAB CHEMISTRY METHOD 01/20/2025 4:10 PM [facility] Comment:Calculation based on the Chronic Kidney Disease Epidemiology Collaboration (CKD-EPI) equation refit without adjustment for race. BUN/Creatinine Ratio 12.0 LAB CHEMISTRY METHOD 01/20/2025 4:10 PM EDT [facility] Calcium 8.6 8.5 - 10.5 mg/dL LAB CHEMISTRY METHOD 01/20/2025 4:10 PM EDT [facility] Blood Venous blood specimen / Unknown 01/20/2025 2:30 PM EDT 01/20/2025 2:58 PM EDT us Jeny Light MD LAB BLOOD ORDERABLES Final Resul t [facility] [address] [place] [address], documented in this encounter Visit Diagnoses Diagnosis Type 2 diabetes mellitus with foot ulcer (CODE) ([facility] V24, [facility] V28) documented in this encounter Additional Health Concerns Infection Onset Date Last Indicated Resolved Time MRSA 12/26/2024 12/29/2024 documented as of this encounter Care Teams Risk And Compliance Analytics Director Relationship Specialty Start Date End Date Fredy Adair PA [address] [place] [phone] PCP - General Internal Medicine 10/09/21 documented as of this encounter
--- OUTSIDE RECORDS SUMMARY | 2025-06-23 09:23 | XMS_ITS | Encounter Summary ---
Author Organization [place] [address] Care Team Providers Care Middle School Coach Name Role Phone Fredy Adair Primary Care Provider [phone] Encounter Details Date Type Department Care Team (Late st Contact Info) Description 01/06/2025 Lab Requisition [facility] - Main Lab 299 [facility] [place] [address] Jeny Light MD 175 [facility] [address] [place] [address] Encounter for therapeutic drug level monitoring Social [...] AM EDT Office Visit Orthopedic Surgery - [place] [address] [address] Miguel A Villegas, DPMadhu [address] [address] documented as of this encounter Procedures Procedure [...] Hold for add-ons. 01/06/2025 6:01 PM EDT [facility] Comment:Auto resulted. Blood Venous blood specimen / Unknown 01/06/2025 4:15 PM EDT 01/06/2025 4:49 PM EDT us Jeny Light MD LAB BLOOD ORDERABLES Final Resul t Performing Organization Address City/[facility]/ZIP Co de Phone Number [facility] [address] [place] [address], [place] [phone] * Vancomycin, trough (01/06/2025 4:15 PM EDT) [facility] Vancomycin Trough 19.1 10.0 - 20.0 mcg/mL LAB CHEMISTRY METHOD 01/06/2025 5:34 PM EDT [facility] Blood Venous blood specimen / Unknown 01/06/2025 4:15 PM EDT 01/06/2025 4:49 PM EDT us Jeny Light MD LAB BLOOD ORDERABLES Final Resul t Performing Organization Address [facility]/ZIP Co de Phone Number [facility] [address] [place] [address], [place] [phone] * (ABNORMAL) Basic metabolic panel (01/06/2025 4:15 PM EDT) Pathologist [facility] Sodium 140 133 - 145 mmol/L LAB CHEMISTRY METHOD 01/06/2025 5:33 PM EDT [facility] Potassium 4.1 3.5 - 5.5 mmol/L LAB CHEMISTRY METHOD 01/06/2025 5:33 PM EDT [facility] Chloride 111(H) 96 - 110 mmol/L LAB CHEMISTRY METHOD 01/06/2025 5:33 PM EDT [facility] CO2 21 21 - 32 mmol/L LAB CHEMISTRY METHOD 01/06/2025 5:33 PM EDT [facility] Anion Gap 8 3 - 11 LAB CHEMISTRY METHOD 01/06/2025 5:33 PM EDT [facility] Glucose 213(H) 70 - 100 mg/dL LAB CHEMISTRY METHOD 01/06/2025 5:33 PM EDT [facility] BUN 22 5 - 25 mg/dL LAB CHEMISTRY METHOD 01/06/2025 5:33 PM EDT [facility] Creatinine 1.62(H) 0.70 - 1.30 mg/dL LAB CHEMISTRY METHOD 01/06/2025 5:33 PM EDT [facility] eGFR 51(L) >=60 mL/min/1. 73m2 LAB CHEMISTRY METHOD 01/06/2025 5:33 PM EDT [facility] Comment:Calculation based on the Chronic Kidney Disease Epidemiology Collaboration (CKD-EPI) equation refit without adjustment for race. BUN/Creatinine Ratio 13.6 LAB CHEMISTRY METHOD 01/06/2025 5:33 PM EDT [facility] Calcium 8.8 8.5 - 10.5 mg/dL LAB CHEMISTRY METHOD 01/06/2025 5:33 PM EDT [facility] Blood Venous blood specimen / Unknown 01/06/2025 4:15 PM EDT 01/06/2025 4:49 PM EDT us Jeny Light MD LAB BLOOD ORDERABLES Final Resul t [facility] [address] [place] [address], documented in this encounter Visit Diagnoses Diagnosis Encounter for therapeutic drug level monitoring documented in this encounter Additional Health Concerns Infection Onset Date Last Indicated Resolved Time MRSA 12/26/2024 12/29/2024 documented as of this encounter Care Teams Middle School Coach Relationship Specialty Start Date End Date Fredy Adair PA [address] [place] [phone] PCP - General Internal Medicine 10/09/21 documented as of this encounter
--- OUTSIDE RECORDS SUMMARY | 2025-06-23 09:23 | XMS_ITS | Clinical Summary ---
Author Organization [facility] Address [address] [place] [address] Phone Care Team Providers Care Letter Sorting Machine Operator Name Role Phone Fredy Adair Primary Care Provider [phone] Medications omeprazole (PriLOSEC) [address] capsule [...] Phone Billing Address Personal/Family Self [address] ([id number]) [place] [address] [facility] ([id number]) [place] [address] Care Teams Letter Sorting Machine Operator Relationship Specialty Start Date End Date Fredy Adair PA [address] [place] [address], [address] [place] [address] PCP - General Physician Health Care Law Specialist 03/13/23
--- OUTSIDE RECORDS SUMMARY | 2025-06-23 09:23 | XMS_ITS | Encounter Summary ---
Author Organization [place] [address] Care Team Providers Care Ocean Freight Forwarder Name Role Phone Fredy Adair Primary Care Provider [phone]- [phone] Encounter Details Date Type Department Care Team (Late st Contact Info) Description 01/13/2025 Lab Requisition [facility] - Main Lab [address] [facility] [place] [address] Jeny Light MD 175 [facility] [address] [place] [address] Encounter for therapeutic drug level monitoring Social [...] AM EDT Office Visit Orthopedic Surgery - [place] [address] [address] Miguel A Villegas, DPM [address] [address] documented as of this encounter Procedures Procedure [...] ORDERABLES Final Resul t Performing Organization Address [facility]/ZIP Co de Phone Number [facility] [address] [place] [address], [place] [phone] * SST tube (01/13/2025 3:45 PM EDT) Extra Tube Hold for add-ons. 01/13/2025 6:01 PM EDT [facility] Comment:Auto resulted. Blood Venous blood specimen / Unknown 01/13/2025 3:45 PM EDT 01/13/2025 4:34 PM EDT us Jeny Light MD LAB BLOOD ORDERABLES Final Resul t Performing Organization Address [facility]/ZIP Co de Phone Number [facility] [address] [place] [address], [place] [phone] * (ABNORMAL) Basic metabolic panel (01/13/2025 3:45 [...] mg/dL LAB CHEMISTRY METHOD 01/13/2025 5:13 PM [facility] Creatinine 1.47(H) 0.70 - [...] mg/dL LAB CHEMISTRY METHOD 01/13/2025 5:13 PM [facility] Blood Venous blood specimen / Unknown 01/13/2025 3:45 PM EDT 01/13/2025 4:33 PM EDT us Jeny Light MD LAB BLOOD ORDERABLES Final Resul t [facility] [address] [place] [address], * Vancomycin, trough (01/13/2025 3:45 PM EDT) Vancomycin Trough 18.0 10.0 - 20.0 mcg/mL LAB CHEMISTRY METHOD 01/13/2025 5:13 PM EDT [facility] Blood Venous blood specimen / Unknown 01/13/2025 3:45 PM EDT 01/13/2025 4:33 PM EDT us Jeny Light MD LAB BLOOD ORDERABLES Final Resul t [facility] ([facility]) [facility] [address] [place] [address], documented in this encounter Visit Diagnoses Diagnosis Encounter for therapeutic drug level monitoring documented in this encounter Additional Health Concerns Infection Onset Date Last Indicated Resolved Time MRSA 12/26/2024 12/29/2024 documented as of this encounter Care Teams Ocean Freight Forwarder Relationship Specialty Start Date End Date Fredy Adair PA [address] [place] [address] PCP - General Internal Medicine 10/09/21 documented as of this encounter
--- OUTSIDE RECORDS SUMMARY | 2025-06-23 09:24 | XMS_ITS | Encounter Summary ---
Author Organization [place] [address] Care Team Providers Care Outside Machinist Apprentice Name Role Phone Fredy Adair Primary Care Provider [phone]- [phone] Encounter Details Date Type Department Care Team (Late st Contact Info) Description 01/04/2025 Lab Requisition [facility] - Main Lab [address] [place] [address] Nkechi Salazar PA [address] [place] [address] Essential (primary) hypertension Social History Tobacco Use [...] AM EDT Office Visit Orthopedic Surgery - [place] [address] [address] Miguel A Villegas, DPM [address] [address] documented as of this encounter Procedures Procedure [...] Final Result [facility] [address] [place] [address], * (ABNORMAL) CBC auto differential (01/04/2025 3:45 [...] % LAB HEMETOLOGY METHOD 01/04/2025 6:41 PM [facility] Platelets 608(H) 130 - 400 K/mcL LAB HEMETOLOGY METHOD 01/04/2025 6:41 PM [facility] MPV 9.7 7.0 - 11.0 FL LAB HEMETOLOGY METHOD 01/04/2025 6:41 PM [facility] NRBC 0.0 <1.0 % LAB HEMETOLOGY METHOD 01/04/2025 6:41 PM [facility] NRBC Absolute 0.00 <0.10 K/mcL LAB HEMETOLOGY METHOD 01/04/2025 6:41 PM [facility] Neutrophils Relative 73.6 % LAB HEMETOLOGY METHOD 01/04/2025 6:41 PM [facility] Lymphocytes Relative 14.2 % LAB HEMETOLOGY METHOD 01/04/2025 6:41 PM [facility] Monocytes Relative 5.9 % LAB HEMETOLOGY METHOD 01/04/2025 6:41 PM [facility] Eosinophils Relative 4.6 % LAB HEMETOLOGY METHOD 01/04/2025 6:41 PM [facility] Basophils Relative 1.2 % LAB HEMETOLOGY METHOD 01/04/2025 6:41 PM [facility] Immature Granulocytes Relative 0.5 % LAB HEMETOLOGY METHOD 01/04/2025 6:41 PM [facility] Neutrophils Absolute 7.11(H) 1.50 - 7.00 K/mcL LAB HEMETOLOGY METHOD 01/04/2025 6:41 PM [facility] Lymphocytes Absolute 1.37 1.00 - 5.00 K/mcL LAB HEMETOLOGY METHOD 01/04/2025 6:41 PM [facility] Monocytes Absolute 0.57 0.20 [...] Final Result [facility] [address] [place] [address], documented in this encounter Visit Diagnoses Diagnosis Essential (primary) hypertension Unspecified essential hypertension documented in this encounter Additional Health Concerns Infection Onset Date Last Indicated Resolved Time MRSA 12/26/2024 12/29/2024 documented as of this encounter Care Teams Outside Machinist Apprentice Relationship Specialty Start Date End Date Fredy Adair PA [address] [place] [phone] PCP - General Internal Medicine 10/09/21 documented as of this encounter
--- OUTSIDE RECORDS SUMMARY | 2025-06-23 09:24 | XMS_ITS | Clinical Summary ---
Author Organization 175 [facility] Address 175 [place] [address] Phone Care Team Providers Care Pathology Secretary Name Role Phone Fredy Adair Primary Care [...] mellitus wit h left diabetic foot infection ([employer] V24, [employer] V28) 12/28/2024 Foot ulcer due to secondary DM ([employer] V24, [facility] V28) 12/27/2024 Type 2 diabetes mellitus wit h circulatory disorder ([employer] V24, [employer] V28) 12/27/2024 Vascular problem 12/27/2024 Chronic renal impairment, stage 3 (moderate) 09/2024 Peripheral vascular disease ([employer] V24) 2023 Iron (Fe) deficiency anemia 02/11/2021 Hyperlipidemia 01/11/2021 Diabetes mellitus type 2 wit h peripheral artery disease ([employer] V24, [employer] V28) 10/31/2020 Hypertension 02/10/2020 Tobacco use disorder 01/31/2019 CHF (congestive heart failure) ([employer] V24, [facility] V28) Encounters Date Type Department Care Team Description 06/12/2025 9:00 AM EDT Office Visit Orthopedic Surgery - [address] [address] Miguel A Villegas, DESHAWN Controlled type 2 diabetes with neuropathy ([employer] V24, [employer] V28) (Primary Dx); History of amputation of left foot through metatarsal bone ([employer] V24, [employer] [facility] [employer] V28); PVD (peripheral vascular disease) ([facility] V24); Localized edema; Ulcer of heel and midfoot, left, with fat layer exposed ([employer] V24, [employer] V28) 05/24/2025 9:45 AM EDT Office Visit Orthopedic Surgery [facility] [address] [phone] Miguel A Villegas, DPM Controlled type 2 diabetes with neuropathy (CMS/HCC V24, CMS/HCC V28) (Primary Dx); History of amputation of left foot through metatarsal bone (CMS/HCC V24, CMS/HCC V28); PVD (peripheral vascular disease) (CMS/HCC V24); Ulcer of heel and midfoot, left, with fat layer exposed (CMS/HCC V24, CMS/HCC V28) 05/10/2025 9:00 AM EDT Office Visit Orthopedic Surgery [facility] [address] [phone] Miguel A Villegas, DPM Controlled type 2 [...] Orthopedic Surgery [facility] [address] [address] Miguel A Villegas, DPM Controlled type 2 diabetes with neuropathy (CMS/HCC V24, CMS/HCC V28) (Primary Dx); History of amputation of left foot through metatarsal bone (CMS/HCC V24, CMS/HCC V28); PVD (peripheral vascular disease) (CMS/HCC V24); Ulcer of heel and midfoot, left, with fat layer exposed (CMS/HCC V24, CMS/HCC V28) 03/23/2025 1:30 PM EDT Office Visit Orthopedic [facility] [address] [phone] Miguel A Villegas, DPM Controlled type 2 diabetes with neuropathy (CMS/HCC V24, CMS/HCC V28) (Primary Dx); History of amputation of left foot through metatarsal bone ([employer] V24, [employer] V28); PVD (peripheral vascular disease) ([employer] V24); Ulcer of heel and midfoot, left, with fat layer exposed ([employer] V24, [employer] V28) from Last 3 Months Surgical History Surgery Date Site/Laterality Comments ANGIOPLASTY 2019 Right PROCEDURE: HISTORICAL ANGIOPLASTY W/STENT; COMMENT: leg BYPASS GRAFT 11/05/2020 Right PROCEDURE: NH AMPUTATION TOE METATARSOPHALANGEAL JOINT; COMMENT: 4 th toe OTHER SURGICAL HISTORY 04/18/2024 Right PROCEDURE: NH I&D BELOW FASCIA FOOT MULTIPLE AREAS OTHER SURGICAL HISTORY 04/18/2024 Right PROCEDURE: NH INCISION BONE CORTEX FOOT OTHER SURGICAL HISTORY 04/20/2024 Right PROCEDURE: NH AMPUTATION LEG THROUGH TIBIA&FIBULA Medical History Medical History Date Comments Uncontrolled diabetes mellitus D X:Uncontrolled diabetes mellitus Normocytic anemia DX:Normocytic anemia; COMMENT: Herbert 01/2021 Peripheral vascular disease ([facility] V24) DX:Peripheral vascular disease ([facility]) Esophageal reflux DX:Esophageal reflux Anemia DX:Anemia Hyperlipidemia DX:Hyperlipidemi a Essential hypertension DX:Essent ial hypertension History of tobacco abuse DX:Hist ory of tobacco abuse CHF (congestive heart failur e) ([employer] V24, [employer] V28) Reduced EF 40-45% Family History Medical [...] AM EDT Office Visit Orthopedic Surgery - [place] [address] [phone] Miguel A Villegas, DPMadhu [address] [address] Health Maintenance Due Date Last Done Comments [...] this topic Medical Devices Implanted Type Area Suspect Artist Device Identifier Shelf Expiration Date Model / Serial / Lot Kit Karol Cullend Cure 10ml - Sn/A - [id number] Implanted:Qty : 1 on 12/29/2024 by Miguel A Villegas DPM at [facility] [employer] Left: Foot [employer] [id number] 05/28/2026 620-010 / N/A / [id number] Procedures Procedure Name Priority Date/Time Associated Diagnosis Comments BASIC METABOLIC PANEL Routine 01/20/2025 2:30 PM EDT Type 2 diabetes mellitus with foot ulcer (CODE) ([facility] V24, [facility] V28) HEMOGLOBIN A1C Routine 05/17/2021 LIPID PANEL Routine 05/17/2021 HM URINE ALBUMIN CREATININE RATIO Routine 02/12/2021 from Last 3 Months or Most Recently Relevant to Health Maintenance Results * (ABNORMAL) Basic metabolic panel (01/20/2025 2:30 PM EDT) Sodium 137 133 - 145 mmol/L LAB CHEMISTRY METHOD 01/20/2025 4:10 PM [facility] Potassium 4.0 3.5 - 5.5 mmol/L LAB CHEMISTRY METHOD 01/20/2025 4:10 PM [facility] Comment:Hemolysis present Chloride 106 96 - 110 mmol/L LAB CHEMISTRY METHOD 01/20/2025 4:10 PM [facility] CO2 22 21 - 32 mmol/L LAB CHEMISTRY METHOD 01/20/2025 4:10 PM [facility] Anion Gap 9 3 - 11 LAB CHEMISTRY METHOD 01/20/2025 4:10 PM [facility] Glucose 183(H) 70 - 100 mg/dL LAB CHEMISTRY METHOD 01/20/2025 4:10 PM [facility] BUN 20 5 - 25 mg/dL LAB CHEMISTRY METHOD 01/20/2025 4:10 PM [facility] Creatinine 1.67(H) 0.70 - 1.30 mg/dL LAB CHEMISTRY METHOD 01/20/2025 4:10 PM [facility] eGFR 49(L) >=60 mL/min/1. 73m2 LAB CHEMISTRY METHOD 01/20/2025 4:10 PM [facility] Comment:Calculation based on the Chronic Kidney Disease Epidemiology Collaboration (CKD-EPI) equation refit without adjustment for race. BUN/Creatinine Ratio 12.0 LAB CHEMISTRY METHOD 01/20/2025 4:10 PM [facility] Calcium 8.6 8.5 - 10.5 mg/dL LAB CHEMISTRY METHOD 01/20/2025 4:10 PM EDT [facility] Blood Venous blood specimen / Unknown 01/20/2025 2:30 PM EDT 01/20/2025 2:58 PM EDT Jeny Light MD LAB BLOOD ORDERABLES Final Resul t [facility] [address] [place] [address], * (ABNORMAL) Hemoglobin A1c (05/17/2021) Hemoglobin A1C 8.7(A) <=6.5 % Blood Venous blood specimen / Unknown Result [facility] Historical Provider LAB BLOOD ORDERABLES Kimberlee l Result * (ABNORMAL) Lipid panel (05/17/2021) LDL/HDL Ratio 3 0 - 4 Triglycerides 76 0 - 150 mg/dL Cholesterol 115 0 - 200 mg/dL HDL 38(A) >=40 mg/dL LDL Cholesterol 62 0 - 100 mg/dL Blood Venous blood specimen / Unknown Result [facility] Damion Zaidi MD LAB BLOOD ORDERABLES Kimberlee l Result * HM Urine Albumin Creatinine Ratio (02/12/2021) Pathologist [facility] Urine Albumin Creatinine Ratio Abstracted Historical Provider HEALTH MAINTENANCE Final Result from Last 3 Months or Most Recently Relevant to Health Maintenance Additional Health Concerns Infection Onset Date Last Indicated MRSA 12/26/2024 12/29/2024 Insurance [facility] Member Subscriber Plan / Payer (Ef fective 2023-Present) Name:IRVING HAHN Relation to Subscriber:Self Name:Irving Hahn Payer ID:[id number] Group ID:[id number] Type:Not on file Address: [address] [place] [phone] Advance Directives Documents on File Type Date Recorded Patient Heating And Blending Supervisor Expl anation Health Care Decision (hx) 04/26/2024 [...] Guardado Spouse Health Care Agent Care Teams Pathology Secretary Relationship Specialty Start Date End Date Fredy Adair PA [address] [place] [address] PCP - General Internal Medicine 10/09/21
== END 2025-06-23 09:54 | disposition home or self-care (01) ==
LOC: HO.ENCR 08:46
PROVIDERS: PCP Internal Medicine; Visit Provider Physician Assistant Medical
DX: E11.59 Type 2 diabetes mellitus with other circulatory complications (principal); R80.9 Proteinuria, unspecified; I10 Essential (primary) hypertension

== ENCOUNTER → 2025-06-23 08:45 | Outpatient (BNVA) | payer OTHER, SELFPAY | PROVIDERS: PCP Internal Medicine; Visit Provider Physician Assistant Medical | DX: E11.59 Type 2 diabetes mellitus with other circulatory complications (principal); R80.9 Proteinuria, unspecified; I10 Essential (primary) hypertension; Z79.84 Long term (current) use of oral hypoglycemic drugs; Z79.85 Long-term (current) use of injectable non-insulin antidiabetic drugs | CPT/HCPCS: 82947; 83036; 99212 ==

== ENCOUNTER 2025-09-26 08:48 | Outpatient (AMB) | payer OTHER, SELFPAY ==
--- NOTE | 2025-09-26 08:52 | A.OFFVIS_ITS ---
Vital Signs 09/26/25 08:53 09/26/25 09:18 Height 5 ft 8 in Weight 222 lb 0.088 oz BMI 33.8 BP 136/76 134/72 Blood Pressure Location Rt brachial Position Sitting Pulse 99 Pulse Source Pulse Oximeter Pulse Oximetry (%) 98 Oxygen Delivery Method Room Air Intake Visit Reasons: Type II Diabetes Intake Note: Patient present today to follow up on Type 2 Diabetes Mellitus. Patient receives Freestyle Jayla 3 plus supplies through: [facility] Last Diabetic Eye exam: January 05, 2025 Last Podiatry Visit: 08/2025 Dr. Aguayo Patient has monthly appts. Random Glucose: 147mg/dl HgA1C: 9.0% Corporate Relations Manager Required: No Accompanied by: Self / Same As Patient Allergies No Known Allergies Allergy (Verified 06/23/25 09:21) Medication List - Last Reconciled 09/26/25 by OLGA LIDIA Simmons acetaminophen 650 mg PO Q6H PRN acetone (urine) test (Ketone Urine Test strips) As directed adhesive tape As directed alcohol swabs (Alcohol Pads) 1 pad topical QID amlodipine 10 mg PO DAILY apixaban (Eliquis) 5 mg PO DAILY atorvastatin 40 mg PO DAILY back brace As directed bisacodyl (Dulcolax (bisacodyl)) 10 mg (2 x 5 mg) PO BEDTIME 2 days blood pressure monitor (Blood Pressure Kit) As directed blood sugar diagnostic (FreeStyle Lite Strips) USE DIRECTED TO CHECK GLUCOSE THREE TIMES DAILY blood-glucose meter (FreeStyle Lite Meter kit) As directed blood-glucose sensor (FreeStyle Jayla 3 Plus Sensor device) Apply 1 new sensor every 15 days as directed to monitor blood glucose continuously. blood-glucose,field service technician,cont (FreeStyle Jayla 3 [place]) Use daily to monitor blood glucose levels continuously. dulaglutide (Trulicity) 4.5 mg (0.5 mL) subcut QWEEK ferrous sulfate 325 mg PO DAILY gabapentin 300 mg PO BEDTIME 30 days glucose (Dex4 Glucose Quick Dissolve) 16 grams (4 x 4 gram) PO Q15M PRN insulin degludec (Tresiba FlexTouch U-100 insulin) 6 units (0.06 mL) subcut BEDTIME insulin lispro (Humalog KwikPen (U-100) Insulin) subcutaneously 3 times a day; 12 units before meals lancets (FreeStyle Lancets) USE DIRECTED THREE TIMES DAILY losartan 100 mg PO DAILY 90 days metformin 500 mg PO BID metoprolol succinate ER 50 mg PO DAILY miscellaneous medical supply 2 ea miscellaneous DAILY 99 days omeprazole 40 mg PO DAILY@0630 ondansetron 8 mg PO Q12H 15 days oxycodone 5 mg PO BID PRN 30 days pen needle, diabetic test 4 times daily pen needle, diabetic As directed 4 times a day zolpidem (Ambien) 5 mg PO BEDTIME PRN 30 days HPI Comments Details: This is a 54-year-old male with a past medical history of type 2 diabetes, peripheral vascular disease and coronary artery disease presenting for diabetic management. He was diagnosed with diabetes about 14 years ago. Hemoglobin a1c 9% up from 7.6%. Reviewed CGM data for the past 2 weeks G SD 9.1% Glucose variability 24.3% Very high 45% High 42% Target range 13% 0% hypoglycemia My interpretation is he is having hyperglycemia throughout 24 hours with little variability. Current medication regimen: Trulicity to 4.5 mg weekly. Humalog (lispro) 10 units before meals twice daily Metformin 500 mg twice daily. Past medication: Mounjaro discontinued when he switched Trulicity. Reported Mounjaro was not as effective for him. Patient discontinued Toujeo and Lantus because it caused low blood sugar. Hyperglycemia symptoms: None Denies hypoglycemia episodes. Patient sees Podiatry once a month. Microvascular complications: retinopathy, nephropathy, neuropathy Macrovascular complications: Diabetic ulcers, osteomyeylitis, PVD, CAD, below knee amputation of right leg March 2024, amputation of toes on the left foot. Hyperlipidemia: treated with atorvastatin 40 mg Hypertension is treated with losartan, metoprolol and amlodipine. Patient says he's been waking up nauseous for the past few weeks since having a stomach virus a few weeks ago. He initially had a lot of vomiting with a virus. Now he is vomiting once or twice a week. Last vomited this morning, and now he feels fine. He is on omeprazole 40 mg daily. Denies coffee-ground emesis, bright red blood, abdominal pain, fevers or chills. Patient was advised to call his primary care doctor for evaluation and we reviewed warning signs warranting ER evaluation. ROS: Constitutional: No unexplained weight loss, fever, fatigue chills or night sweats. Eyes: No vision changes Respiratory: No shortness of breath Cardiovascular: No chest pain or palpitations Gastrointestinal: No diarrhea, blood in stools, abdominal pain. See HPI. Neurologic: No headache, dizziness, syncope Endocrine: Denies polyuria, polydipsia. Physical exam: Constitutional: Alert, in no distress. Eyes: Pupils are equal, round and reactive to light. Extraocular muscles intact. Neck: Supple, Full range of motion. No lymphadenopathy. No palpable thyroid masses. Respiratory: Clear to auscultation. Cardiovascular: S1 S2 regular. No murmurs Abdomen: Soft, nontender, no palpable masses, rebound or guarding. Neurologic: No focal neurological deficits Psychiatric: Normal mood and affect [facility] Medical History Congenital hernia of foramen of [place] Abscess of periosteum without osteomyelitis Hospital discharge follow-up Amputation of left foot Pulmonary nodules Type 2 diabetes mellitus with vascular disease Microalbuminuria Decreased renal function Nausea and vomiting Left ventricular ejection fraction of 40-49% SOB (shortness of breath) on exertion Anemia DMII (diabetes mellitus, type 2) Open wound Anemia of chronic disease Peripheral vascular disease Diabetic foot ulcer Anemia Orthostatic hypotension Gangrene of toe of left foot GERD (gastroesophageal reflux disease) History of angiography PICC (peripherally inserted central catheter) in place Bacteremia Diabetic foot ulcer PAD (peripheral artery disease) Diabetes Surgical History History of surgery History of amputation below knee History of esophagogastroduodenoscopy (EGD) H/O colonoscopy (~10/26/23) History of transmetatarsal amputation of left foot Amputated toe of right foot (11/05/20) Family History Other Diabetes No family history of cancer Social History Household Members: None Housing: Apartment Are you a primary cardiac care nurse to a significant other at home: No Do you presently have visiting nurse or other home services: No Alcohol intake: current Alcohol intake frequency: holidays/special occasions only Alcohol type: hard liquor Comment: pt still feeling the same Patient Tobacco Use Status: Former Tobacco user Tobacco use type: Cigarette Cigarette Packs Per Day: 0.5 Cigarettes Per Day: 1 Years Smoked: 15 e-Cigarette/Vaping Use: Never Used Second Hand Smoke Exposure: Yes service: No Current occupational status: unemployed Cognitive needs: No Hearing needs: No Vision needs: No Physical Exam Vital Signs: Last Vital Signs Pulse 99 09/26/25 08:53 BP 136/76 09/26/25 08:53 Pulse Ox 98 09/26/25 08:53 Oxygen Delivery Method Room Air 09/26/25 08:53 BMI result Body Mass Index 33.8 Office Procedures Glucose Monitoring Details Details: See HPI 65735 - Glucose monitoring, continuous-physician I&R Procedure code (CPT) selection complete Results AMB Hemoglobin A1c AMB Hemoglobin A1c 9.0 % Last Edit by JEWEL Butler on 09/26/25 09:12 Results Reviewed Results Reviewed: Laboratory Last Values Glucose (Clinic) 147 mg/dL (60-115) H 09/26/25 09:00 Laboratory Tests 03/14/24 03/28/25 08:15 09:10 Creatinine 1.53 H Estimated GFR 48 AST 32 ALT 21 Triglycerides 138 Cholesterol 152 LDL Cholesterol, Calc 78 HDL Cholesterol 47 Vitamin B12 601 Urine Creatinine 103.24 Urine Microalbumin 1556.0 Microalb/Creat Ratio 1507.1 H Assessment & Plan Assessment & Plan (1) Type 2 diabetes mellitus with vascular disease: Code(s): E11.59 - Type 2 diabetes mellitus with other circulatory complications Category: Medical Plan: In summary this is a 54-year-old male with uncontrolled type 2 diabetes with micro and macrovascular complications. We discussed that his A1c increased. Patient says this is due to dietary indiscretion. He has been eating a lot of sweets, carbs and desserts over the past 2 months with the holidays. He has also been drinking coquito. He declines referral to dietitian or public health educator at this time. Diabetic diet reviewed. Followed by Podiatry. Reviewed the importance of bringing his glucometer to all appointments. Continue Trulicity to 4.5 mg weekly. Increase Humalog to 12 units 3 times daily before meals. Continue Metformin 500 mg twice daily. Start Tresiba 6 units nightly. Increase to 10 units after a few days if fasting sugars are still above 130. Written instructions reviewed for treating hypoglycemia. (2) Microalbuminuria: Code(s): R80.9 - Proteinuria, unspecified Category: Medical Plan: Patient is on an Arb for renal protection. (3) Hypertension: Code(s): I10 - Essential (primary) hypertension Category: Medical Qualifiers: Hypertension type: essential hypertension Qualified Code(s): I10 - Essential (primary) hypertension Plan: Systolic reading is mildly elevated today. Recheck in 1 month. Recommended low-sodium diet and avoidance of caffeine. (4) Vomiting: Code(s): R11.10 - Vomiting, unspecified Plan: Vitals are normal. He appears well. He has no abdominal pain, and his abdominal exam is benign today. He was advised to call his primary care doctor for evaluation. Plan Follow up in 1 month Orders: Orders Aspartate Amino Transferase Today E11.59 - Type 2 diabetes mellitus with other circulatory complications, I10 - Essential (primary) hypertension Microalbumin, Random (w Creat) Today E11.59 - Type 2 diabetes mellitus with other circulatory complications, E11.9 - Type 2 diabetes mellitus without complications, I10 - Essential (primary) hypertension Vitamin B12 Today E11.59 - Type 2 diabetes mellitus with other circulatory co mplications, I10 - Essential (primary) hypertension, Z91.89 - Other specified personal risk factors, not elsewhere classified AMB Glucose Monitoring Today E11.9 - Type 2 diabetes mellitus without complications AMB Hemoglobin A1c Today E11.52 - Type 2 diabetes mellitus with diabetic peripheral angiopathy with gangrene, Z13.9 - Encounter for screening, unspecified, Z79.4 - detention (current) use of insulin Creatinine Today E11.59 - Type 2 diabetes mellitus with other circulatory complications, E11.9 - Type 2 diabetes mellitus without complications, I10 - Essential (primary) hypertension Alanine Aminotransferase Today E11.59 - Type 2 diabetes mellitus with other circulatory complications, I10 - Essential (primary) hypertension Lipid Panel Today E11.59 - Type 2 diabetes mellitus with other circulatory complications, E78.5 - Hyperlipidemia, unspecified, I10 - Essential (primary) hypertension Medications: New insulin degludec (Tresiba FlexTouch U-100 insulin) 6 units (0.06 mL) subcut BEDTIME 15 mL 5RF Changed From pen needle, diabetic (BD Ultra-Fine Karen Pen Needle) As directed 4 times a day 100 ea 5RF E11.52 - Type 2 diabetes mellitus with diabetic peripheral angiopathy with gangrene, Z79.4 - rn long term care (current) use of insulin To pen needle, diabetic As directed 4 times a day 100 ea 5RF E11.52 - Type 2 diabetes mellitus with diabetic peripheral angiopathy with gangrene, Z79.4 - detention (current) use of insulin Refilled alcohol swabs (Alcohol Pads) 1 pad topical QID 200 ea 11RF E11.59 - Type 2 diabetes mellitus with other circulatory complications Patient Instructions: Medication regimen as of today: Trulicity to 4.5 mg weekly. Humalog (lispro) 12 units before meals. This is short acting insulin. Metformin 500 mg twice daily. Tresiba (insulin degludec) 6 units at bedtime. Increase to 10 units if fasting sugars are still over 130. This is long acting insulin. If you experience low blood sugar (under 70), treat this by eating a chewable fruit candy like skittles or jelly beans (about 8 pieces), 4 ounces (1/2 cup) of fruit juice (not diet), 1 tablespoon of honey or 4 glucose tablets. If your blood sugar is under 50, take double the amount of one of the above. Recheck your blood sugar in 15 minutes. Coding Level of Care Code Est Pt Level 4 (79169) Diagnoses Type 2 diabetes mellitus with vascular disease E11.59 Microalbuminuria R80.9 Hypertension I10 Hypertension type: essential hypertension Vomiting R11.10 CPT Codes Details - CPT: 86684 - Glucose monitoring, continuous-physician I&R ([id number])
[2025-09-26 08:53] VITALS: BP 136/76; PULSE 99; O2SAT 98; BMI 33.8
[2025-09-26 09:04] LABS: Glucose, Whole Blood 147 mg/dL (60-115)
[2025-09-26 09:18] VITALS: BP 134/72
--- OUTSIDE RECORDS SUMMARY | 2025-09-26 10:43 | XMS_ITS | Clinical Summary ---
Author Organization [facility] Address [address] [place] [address] Phone Care Team Providers Care Portrait Artist Name Role Phone Fredy Adair Primary Care Provider [phone] Medications omeprazole (PriLOSEC) [address] capsule [...] Phone Billing Address Personal/Family Self [address] ([id number]) [place] [address] [facility] ([id number]) [place] [address] Care Teams Portrait Artist Relationship Specialty Start Date End Date Fredy Adair PA [address] [place] [address], [address] [place] [address] PCP - General Physician Supervisor Screen Making 03/13/23
--- OUTSIDE RECORDS SUMMARY | 2025-09-26 10:43 | XMS_ITS | Encounter Summary ---
Author Organization [facility] [address] Care Team Providers Care Industrial Machine System Technician Name Role Phone Fredy Adair Primary Care Provider [phone] Encounter Details Date Type Department Care Team (Late st Contact Info) Description 01/20/2025 Lab Requisition [facility] - Main Lab [address] [facility] [place] [address] Jeny Light MD [address] [facility] [address] [place] [address] Type 2 diabetes mellitus with foot ulcer (CODE) ([facility] V24, [facility] V28) Social History Tobacco Use Types Packs/Day Years Used Date Smoking Tobacco: Every Day Cigarettes 1 31 Started: 09/28/1989; Last attempted to quit: 09/28/2020 Smokeless Tobacco: Never Alcohol Use Standard Drinks/Week Comments Not Currently 0 (1 standard drink = 0.6 oz pur e alcohol) Interpersonal Safety Answer Date Record ed Physical Abuse Unrecognized value 12/28/2024 Verbal Abuse Unrecognized value 12/28/2024 Sex and Gender Information Value Date [...] Care Team (Late st Contact Info) Description 09/27/2025 9:00 AM EST Office Visit Orthopedic Surgery - [place] [phone] [address] Miguel A Villegas, DPM [address] [address] documented as of this encounter Procedures Procedure Name Priority Date/Time Associated Diagnosis Comments SST - GOLD Routine 01/20/2025 2:30 PM EDT Type 2 diabetes mellitus with foot ulcer (CODE) (CMS/HCC V24, CMS/[facility] V28) CBC WITH AUTO DIFFERENTIAL Routine 01/20/2025 2:30 PM EDT Type 2 diabetes mellitus with foot ulcer (CODE) (CMS/HCC V24, CMS/HCC V28) CBC AND DIFFERENTIAL Routine 01/20/2025 2:30 PM EDT Type 2 diabetes mellitus with foot ulcer (CODE) ([facility]/HCC V24, CMS/[facility] V28) VANCOMYCIN, TROUGH Routine 01/20/2025 2: 30 PM EDT Type 2 diabetes mellitus with foot ulcer (CODE) (CMS/HCC V24, CMS/[facility] V28) BASIC METABOLIC PANEL Routine 01/20/2025 2:30 PM EDT Type 2 diabetes mellitus with foot ulcer (CODE) ([facility] V24, [facility] V28) documented in this encounter Results * SST tube (01/20/2025 2:30 PM EDT) Pathologist [facility] Extra Tube Hold for add-ons. 01/20/2025 4:01 PM EDT [facility] Comment:Auto resulted. Blood Venous blood specimen / Unknown 01/20/2025 2:30 PM EDT 01/20/2025 2:58 PM EDT us Jeny Light MD LAB BLOOD ORDERABLES Final Resul t [facility] [address] [place] [address], * (ABNORMAL) CBC auto differential (01/20/2025 2:30 PM EDT) [facility] WBC 9.7 4.8 - 10.8 K/mcL LAB HEMETOLOGY METHOD 01/20/2025 3:39 PM EDT [facility] RBC 2.80(L) 4.50 - 5.50 M/mcL LAB HEMETOLOGY METHOD 01/20/2025 3:39 PM EDT [facility] Hemoglobin 7.8(L) 13.5 - 17.5 g/dL LAB HEMETOLOGY METHOD 01/20/2025 3:39 PM EDT [facility] Hematocrit 24.1(L) 42.0 - 54.0 % LAB HEMETOLOGY METHOD 01/20/2025 3:39 PM [facility] MCV 85.2 79.0 - 98.0 FL LAB HEMETOLOGY METHOD 01/20/2025 3:39 PM [facility] MCH 27.6 27.0 - 32.0 pcg LAB HEMETOLOGY METHOD 01/20/2025 3:39 PM [facility] MCHC 32.4 32.0 - 37.0 g/dL LAB HEMETOLOGY METHOD 01/20/2025 3:39 PM [facility] RDW 16.2(H) 11.0 - 15.0 % LAB HEMETOLOGY METHOD 01/20/2025 3:39 PM [facility] Platelets 360 130 - 400 K/mcL LAB HEMETOLOGY METHOD 01/20/2025 3:39 PM [facility] MPV 9.6 7.0 - 11.0 FL LAB HEMETOLOGY METHOD 01/20/2025 3:39 PM [facility] NRBC 0.0 <1.0 % LAB HEMETOLOGY METHOD 01/20/2025 3:39 PM [facility] NRBC Absolute 0.00 <0.10 K/mcL LAB HEMETOLOGY METHOD 01/20/2025 3:39 PM [facility] Neutrophils Relative 67.2 % LAB HEMETOLOGY METHOD 01/20/2025 3:39 PM [facility] Lymphocytes Relative 16.3 % LAB HEMETOLOGY METHOD 01/20/2025 3:39 PM [facility] Monocytes Relative 10.7 % LAB HEMETOLOGY METHOD 01/20/2025 3:39 PM [facility] Eosinophils Relative 4.7 % LAB HEMETOLOGY METHOD 01/20/2025 3:39 PM [facility] Basophils Relative 0.7 % LAB HEMETOLOGY METHOD 01/20/2025 3:39 PM EDT [facility] Immature Granulocytes Relative 0.4 % LAB HEMETOLOGY METHOD 01/20/2025 3:39 PM EDT [facility] Neutrophils Absolute 6.50 1.50 - 7.00 K/mcL LAB HEMETOLOGY METHOD 01/20/2025 3:39 PM EDT [facility] Lymphocytes Absolute 1.57 1.00 - 5.00 K/mcL LAB HEMETOLOGY METHOD 01/20/2025 3:39 PM EDT [facility] Monocytes Absolute 1.03(H) 0.20 - 1.00 K/mcL LAB HEMETOLOGY METHOD 01/20/2025 3:39 PM EDT [facility] Eosinophils Absolute 0.45 0.00 - 0.50 K/mcL LAB HEMETOLOGY METHOD 01/20/2025 3:39 PM EDT [facility] Basophils Absolute 0.07 0.00 - 0.20 K/mcL LAB HEMETOLOGY METHOD 01/20/2025 3:39 PM EDT [facility] Immature Granulocytes Absolute 0.04(H) 0.00 - 0.03 K/mcL LAB HEMETOLOGY METHOD 01/20/2025 3:39 PM EDT [facility] Blood Venous blood specimen / Unknown 01/20/2025 2:30 PM EDT 01/20/2025 2:58 PM EDT us Jeny Light MD LAB BLOOD ORDERABLES Final Resul t [facility] [address] [place] [address], * Vancomycin, trough (01/20/2025 2:30 PM EDT) Vancomycin Trough 17.2 10.0 - 20.0 mcg/mL LAB CHEMISTRY METHOD 01/20/2025 4:10 PM [facility] Blood Venous blood specimen / Unknown 01/20/2025 2:30 PM EDT 01/20/2025 2:58 PM EDT us Jeny Light MD LAB BLOOD ORDERABLES Final Resul t [facility] [address] [place] [address], * (ABNORMAL) Basic metabolic panel (01/20/2025 2:30 [...] LAB CHEMISTRY METHOD 01/20/2025 4:10 PM EDT [facility] Calcium 8.6 8.5 - 10.5 mg/dL LAB CHEMISTRY METHOD 01/20/2025 4:10 PM EDT [facility] Blood Venous blood specimen / Unknown 01/20/2025 2:30 PM EDT 01/20/2025 2:58 PM EDT us Jeny Light MD LAB BLOOD ORDERABLES Final Resul t [facility] [address] [place] [address], [place] [phone] documented in this encounter Visit Diagnoses Diagnosis Type 2 diabetes mellitus with foot ulcer (CODE) ([facility] V24, [facility] V28) documented in this encounter Additional Health Concerns Infection Onset Date Last Indicated Resolved Time 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
--- OUTSIDE RECORDS SUMMARY | 2025-09-26 10:43 | XMS_ITS | Clinical Summary ---
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 12/28/2024 Foot ulcer due to secondary DM 12/27/2024 Type 2 diabetes mellitus with circulatory disord er 12/27/2024 Vascular problem 12/27/2024 Chronic renal impairment, stage 3 (moderate) 09/2024 Peripheral vascular disease 07/26/2024 Iron (Fe) deficiency anemia 02/11/2021 Hyperlipidemia 01/11/2021 Diabetes mellitus type 2 with peripheral artery disease 10/31/2020 Hypertension 02/10/2020 Tobacco use disorder 01/31/2019 CHF (congestive heart failure) Encounters Date Type Department Care Team Description 09/05/2025 9:45 AM EST Office Visit Orthopedic Surgery [address] [phone] Miguel A Villegas, DPM Controlled type 2 diabetes with neuropathy (CMS/HCC V24, CMS/HCC V28) (Primary Dx); Lymphedema; History of amputation of left foot through metatarsal bone (CMS/HCC V24, CMS/HCC V28); PVD (peripheral vascular disease) ([facility]/HCC V24) 08/15/2025 10:30 AM EST Office Visit Orthopedic Surgery [facility] [address] [phone] Miguel A Villegas, DPM Controlled type 2 diabetes with neuropathy (CMS/HCC V24, CMS/HCC V28) (Primary Dx); Lymphedema; History of amputation of left foot through metatarsal bone (CMS/HCC V24, CMS/HCC V28); PVD (peripheral vascular disease) ([facility] V24); Ulcer of heel and midfoot, left, with fat layer exposed ([facility] V24, [facility] V28) 07/20/2025 8:45 AM EDT Office Visit Orthopedic Surgery - [address] [phone] Miguel A Villegas DPM Controlled type 2 diabetes with neuropathy ([facility] V24, [facility] V28) (Primary Dx); Localized edema; Lymphedema; History of amputation of left foot through metatarsal bone ([facility] V24, [facility] V28); PVD (peripheral vascular disease) ([facility] V24); Ulcer of heel and midfoot, left, with fat layer exposed ([facility] V24, [facility] V28) from Last 3 Months Surgical History Surgery Date Site/Laterality Comments ANGIOPLASTY 2019 Right PROCEDURE: HISTORICAL ANGIOPLASTY W/STENT; COMMENT: leg BYPASS GRAFT 11/05/2020 Right PROCEDURE: [place] AMPUTATION TOE METATARSOPHALANGEAL JOINT; COMMENT: 4 th toe OTHER SURGICAL HISTORY 04/18/2024 Right PROCEDURE: [place] I&D BELOW FASCIA FOOT MULTIPLE AREAS OTHER SURGICAL HISTORY 04/18/2024 Right PROCEDURE: [place] INCISION BONE CORTEX FOOT OTHER SURGICAL HISTORY 04/20/2024 Right PROCEDURE: [place] AMPUTATION LEG THROUGH TIBIA&FIBULA Medical History Medical History Date Comments Uncontrolled diabetes mellitus D X:Uncontrolled diabetes mellitus Normocytic anemia DX:Normocytic anemia; COMMENT: Herbert 01/2021 Peripheral vascular disease ([facility] V24) DX:Peripheral vascular disease (HCC) Esophageal reflux DX:Esophageal reflux Anemia DX:Anemia Hyperlipidemia DX:Hyperlipidemi a Essential hypertension DX:Essent ial hypertension History of tobacco abuse DX:Hist ory of tobacco abuse CHF (congestive heart failur e) ([facility] V24, [facility] V28) Reduced [...] Orientation Straight 12/26/2024 10 :30 PM EDT Last Filed Vital Signs Vital Sign Reading [...] AM EST Office Visit Orthopedic Surgery - [place] 250 175 [facility] [address] [place] [phone] Miguel A Villegas, DESHAWN [address] [address] Health Maintenance Due Date Last Done Comments Colorectal Cancer Screening: Colonoscopy 1972 Drug Screen 1972 Non-Opioid Controlled Substance Agreement 1972 COVID-19 Vaccine (#1) 1977 Diabetes: Annual Retina Eye Exam 1982 DTaP,Tdap,and Td Vaccines (1 - Tdap) 12/13/1991 Hepatitis B Vaccines (1 of 3 - 19+ 3-dose series) 12/13/1991 Pneumococcal Vaccine: 50+ Years (1 of 2 - PCV) 12/13/1991 Zoster Vaccines (1 of 2) 12/13/1991 HIV Screening 08/31/2022 Hepatitis C Screening 08/31/2022 Lung Cancer Screening (Low Dose CT) 08/31/2022 Medicare Annual Wellness Visit 08/31/2022 Social Influencers of Health Screening 08/31/2022 Diabetes: Annual Urine Albumin-Creatinine Ratio (uACR) 09/13/2022 02/12/2021 Diabetes: Blood Sugar Control Test (HGBA1C) 09/13/2022 05/17/2021 RSV Immunization Adult Patients (1 - Risk 50-74 years 1-dose series) 2022 Depression Screening 09/28/2024 Influenza Vaccine (#1) 2025 [...] this topic Medical Devices Implanted Type Area Paper Latcher Device Identifier Shelf Expiration Date Model / Serial / Lot Kit Karol Cullend Cure 10ml - Sn/A - [id number] Implanted:Qty : 1 on 12/29/2024 by Miguel A Villegas DPM at [facility] [employer] Left: Foot [employer] [id number] 05/28/2026 620-010 / N/A / [id number] Procedures Procedure Name Priority Date/Time Associated Diagnosis Comments BASIC METABOLIC PANEL Routine 01/20/2025 2:30 PM EDT Type 2 diabetes mellitus with foot ulcer (CODE) ([facility] V24, [facility] V28) HEMOGLOBIN A1C Routine 05/17/2021 LIPID [...] LAB CHEMISTRY METHOD 01/20/2025 4:10 PM EDT [facility] eGFR 49(L) >=60 mL/min/1. 73m2 LAB CHEMISTRY METHOD 01/20/2025 4:10 PM EDT [facility] Comment:Calculation based on the Chronic Kidney Disease Epidemiology Collaboration (CKD-EPI) equation refit without adjustment for race. BUN/Creatinine Ratio 12.0 LAB CHEMISTRY METHOD 01/20/2025 4:10 PM EDT [facility] Calcium 8.6 8.5 - 10.5 mg/dL LAB CHEMISTRY METHOD 01/20/2025 4:10 PM EDT [facility] Blood Venous blood specimen / Unknown 01/20/2025 2:30 PM EDT 01/20/2025 2:58 PM EDT Jeny Light MD LAB BLOOD ORDERABLES Final Resul t [facility] [address] [place] [address], * (ABNORMAL) Hemoglobin A1c (05/17/2021) Pathologist [facility] Hemoglobin A1C 8.7(A) <=6.5 % Blood Venous blood specimen / Unknown Historical Provider LAB BLOOD ORDERABLES Kimberlee l Result * (ABNORMAL) Lipid panel (05/17/2021) Pathologist [facility] LDL/HDL Ratio 3 0 - 4 Triglycerides 76 0 - 150 mg/dL Cholesterol 115 0 - 200 mg/dL HDL 38(A) >=40 mg/dL LDL Cholesterol 62 0 - 100 mg/dL Blood Venous blood specimen / Unknown Historical Provider LAB BLOOD ORDERABLES Kimberlee l Result * Urine Albumin Creatinine Ratio (02/12/2021) HM Urine Albumin Creatinine Ratio Abstracted us Historical Provider HEALTH MAINTENANCE Final Result from Last 3 Months or Most Recently Relevant to Health Maintenance Additional Health Concerns Infection Onset Date Last Indicated MRSA 12/26/2024 12/29/2024 Insurance [employer] MEDICARE Member Subscriber Plan / Payer (Ef fective 2023-Present) Name:IRVING HHAN Relation to Subscriber:Self Name:Irving Hahn Payer ID:[id number] Group ID:[id number] Type:Not on file Address: [place] [address] [address] [address] Advance Directives Documents on File Type Date Recorded Patient Wool Hanker Expl anation Health Care Decision (hx) 04/26/2024 [...] Guardado Spouse Health Care Agent Care Teams Real Estate Firm Manager Relationship Specialty Start Date End Date Fredy Adair PA [address] [place] [phone] PCP - General Internal Medicine 10/09/21
--- OUTSIDE RECORDS SUMMARY | 2025-09-26 10:43 | XMS_ITS | Encounter Summary ---
Author Organization [employer] [place] [address] Care Team Providers Care Appeals Specialist Name Role Phone Fredy Adair Primary Care Provider [phone]- [phone] Encounter Details Date Type Department Care Team (Late st Contact Info) Description 01/06/[address] [facility] - Main Lab [address] [facility] [place] [address] Jeny Light MD 175 [facility] [address] [place] [address] Encounter for therapeutic drug level monitoring Social [...] AM EST Office Visit Orthopedic Surgery - [place] [phone] [phone] Miguel A Villegas DPM [address] [address] documented as of this encounter Procedures Procedure [...] Hold for add-ons. 01/06/2025 6:01 PM EDT [facility] Comment:Auto resulted. Blood Venous blood specimen / Unknown 01/06/2025 4:15 PM EDT 01/06/2025 4:49 PM EDT us Jeny Light MD LAB BLOOD ORDERABLES Final Resul t Performing Organization Address [facility]/ZIP Co de Phone Number [facility] [address] [place] [address], [place] [phone] * Vancomycin, trough (01/06/2025 4:15 PM EDT) [facility] Vancomycin Trough 19.1 10.0 - 20.0 mcg/mL LAB CHEMISTRY METHOD 01/06/2025 5:34 PM EDT [facility] Blood Venous blood specimen / Unknown 01/06/2025 4:15 PM EDT 01/06/2025 4:49 PM EDT us Jeny Light MD LAB BLOOD ORDERABLES Final Resul t Performing Organization Address [facility]/RUST de Phone Number [facility] [address] [place] [address], [place] [phone] * (ABNORMAL) Basic metabolic panel (01/06/2025 4:15 PM EDT) [facility] Sodium 140 133 - 145 mmol/L LAB CHEMISTRY METHOD 01/06/2025 5:33 PM EDT [facility] Potassium 4.1 3.5 - 5.5 mmol/L LAB CHEMISTRY METHOD 01/06/2025 5:33 PM EDT [facility] Chloride 111(H) 96 - 110 mmol/L LAB CHEMISTRY METHOD 01/06/2025 5:33 PM EDT [facility] CO2 21 21 - 32 mmol/L LAB CHEMISTRY METHOD 01/06/2025 5:33 PM EDT [facility] Anion Gap 8 3 - 11 LAB CHEMISTRY METHOD 01/06/2025 5:33 PM EDT [facility] Glucose 213(H) 70 - 100 mg/dL LAB CHEMISTRY METHOD 01/06/2025 5:33 PM EDT [facility] BUN 22 5 - 25 mg/dL LAB CHEMISTRY METHOD 01/06/2025 5:33 PM EDT [facility] Creatinine 1.62(H) 0.70 - 1.30 mg/dL LAB CHEMISTRY METHOD 01/06/2025 5:33 PM EDT [facility] eGFR 51(L) >=60 mL/min/1. 73m2 LAB CHEMISTRY METHOD 01/06/2025 5:33 PM EDT [facility] Comment:Calculation based on the Chronic Kidney Disease Epidemiology Collaboration (CKD-EPI) equation refit without adjustment for race. BUN/Creatinine Ratio 13.6 LAB CHEMISTRY METHOD 01/06/2025 5:33 PM EDT [facility] Calcium 8.8 8.5 - 10.5 mg/dL LAB CHEMISTRY METHOD 01/06/2025 5:33 PM EDT [facility] Blood Venous blood specimen / Unknown 01/06/2025 4:15 PM EDT 01/06/2025 4:49 PM EDT us Jeny Light MD LAB BLOOD ORDERABLES Final Resul t [facility] [address] [place] [address], documented in this encounter Visit Diagnoses Diagnosis Encounter for therapeutic drug level monitoring documented in this encounter Additional Health Concerns Infection Onset Date Last Indicated Resolved Time MRSA 12/26/2024 12/29/2024 documented as of this encounter Care Teams Appeals Specialist Relationship Specialty Start Date End Date Fredy Adair PA [address] [place] [phone] PCP - General Internal Medicine 10/09/21 documented as of this encounter
--- OUTSIDE RECORDS SUMMARY | 2025-09-26 10:43 | XMS_ITS | Encounter Summary ---
Author Organization [employer] [place] [address] Care Team Providers Care Cutter Barrel Drum Name Role Phone Fredy Adair Primary Care Provider [phone]- [phone] Encounter Details Date Type Department Care Team (Late st Contact Info) Description 01/04/2025 Lab Requisition [facility] - Main Lab [address] [place] [address] Nkechi Salazar PA [address] [place], [place] [phone] Essential (primary) hypertension Social History Tobacco Use [...] AM EST Office Visit Orthopedic Surgery - [place] [address] [phone] Miguel A Villegas, DESHAWN [address] [address] documented as of this encounter Procedures Procedure Name Priority Date/Time Associated Diagnosis Comments CBC WITH AUTO DIFFERENTIAL Routine 01/04/2025 3:45 PM EDT Essential (primary) hypertension RED - PLAIN Routine 01/04/2025 3:45 PM EDT Essential (primary) hypertension CBC AND DIFFERENTIAL Routine 01/04/2025 3:45 PM EDT Essential (primary) hypertension documented in this encounter Results * Red tube (01/04/2025 3:45 PM EDT) [facility] Signature Extra Tube Hold for add-ons. 01/04/2025 7:01 PM EDT [facility] Comment:Auto resulted. Blood Venous blood specimen / Unknown 01/04/2025 3:45 PM EDT 01/04/2025 5:51 PM EDT Nkechi DUGGAN LAB BLOOD ORDERABLES Final Result [facility] [address] [place] [address], [place] [phone] * (ABNORMAL) CBC auto differential (01/04/2025 3:45 [...] pcg LAB HEMETOLOGY [facility] MCHC 30.7(L) 32.0 - 37.0 g/dL LAB HEMETOLOGY METHOD 01/04/2025 6[facility] RDW 15.7(H) 11.0 - 15.0 % LAB HEMETOLOGY METHOD 01/04/2025 6:41 PM [facility] Platelets 608(H) 130 - 400 K/mcL LAB HEMETOLOGY METHOD 01/04/2025 6:41 PM [facility] MPV 9.7 7.0 - 11.0 FL LAB HEMETOLOGY METHOD 01/04/2025 6:41 PM [facility] NRBC 0.0 <1.0 % LAB HEMETOLOGY METHOD 01/04/2025 6:41 PM [facility] NRBC Absolute 0.00 <0.10 K/mcL LAB HEMETOLOGY METHOD 01/04/2025 6:41 PM [facility] Neutrophils Relative 73.6 % LAB HEMETOLOGY METHOD 01/04/2025 6:41 PM [facility] Lymphocytes Relative 14.2 % LAB HEMETOLOGY METHOD 01/04/2025 6:41 PM [facility] Monocytes Relative 5.9 % LAB HEMETOLOGY METHOD 01/04/2025 6:41 PM [facility] Eosinophils Relative 4.6 % LAB HEMETOLOGY METHOD 01/04/2025 6:41 PM [facility] Basophils Relative 1.2 % LAB HEMETOLOGY METHOD 01/04/2025 6:41 PM [facility] Immature Granulocytes Relative 0.5 % LAB HEMETOLOGY METHOD 01/04/2025 6:41 PM [facility] Neutrophils Absolute 7.11(H) 1.50 - 7.00 K/mcL LAB HEMETOLOGY METHOD 01/04/2025 6:41 PM [facility] Lymphocytes Absolute 1.37 1.00 - 5.00 K/mcL LAB HEMETOLOGY METHOD 01/04/2025 6:41 PM [facility] Monocytes Absolute 0.57 0.20 - 1.00 K/mcL LAB HEMETOLOGY METHOD 01/04/2025 6:41 PM EDT [facility] Eosinophils Absolute 0.44 0.00 - 0.50 K/[facility] LAB HEMETOLOGY METHOD 01/04/2025 6:41 [...] Final Result [facility] [address] [place] [address], documented in this encounter Visit Diagnoses Diagnosis Essential (primary) hypertension Unspecified essential hypertension documented in this encounter Additional Health Concerns Infection Onset Date Last Indicated Resolved Time MRSA 12/26/2024 12/29/2024 documented as of this encounter Care Teams Cutter Barrel Drum Relationship Specialty Start Date End Date Fredy Adair PA [address] [place] [phone] PCP - General Internal Medicine 10/09/21 documented as of this encounter
--- OUTSIDE RECORDS SUMMARY | 2025-09-26 10:43 | XMS_ITS | Encounter Summary ---
Author Organization [place] [place] [address] Care Team Providers Care Pantograph Operator Name Role Phone Fredy Adair Primary Care Provider [phone]- [phone] Encounter Details Date Type Department Care Team (Late st Contact Info) Description 01/13/2025 Lab Requisition [facility] - Main Lab [address] [facility] [place] [address] Jeny Light MD 175 [facility] [address] [place] [address] Encounter for therapeutic drug level monitoring Social [...] AM EST Office Visit Orthopedic Surgery - [place] [phone] [phone] Miguel A Villegas, DESHAWN [address] [address] documented as of this encounter Procedures Procedure [...] Resul t Performing Organization Address [facility]/ZIP Co de Phone Number [facility] [address] [place] [address], [place] [phone] * SST tube (01/13/2025 3:45 PM EDT) Extra Tube Hold for add-ons. 01/13/2025 6:01 PM EDT [facility] Comment:Auto resulted. Blood Venous blood specimen / Unknown 01/13/2025 3:45 PM EDT 01/13/2025 4:34 PM EDT us Jeny Light MD LAB BLOOD ORDERABLES Final Resul t Performing Organization Address [facility]/ZIP Co de Phone Number [facility] [address] [place] [address], [place] [phone] * (ABNORMAL) Basic metabolic panel (01/13/2025 3:45 [...] mg/dL LAB CHEMISTRY METHOD 01/13/2025 5:13 PM [facility] Creatinine 1.47(H) 0.70 - 1.30 mg/dL LAB CHEMISTRY METHOD 01/13/2025 5:13 PM T [facility] eGFR 57(L) >=60 mL/min/1. 73m2 LAB CHEMISTRY METHOD 01/13/2025 5:13 PM T [facility] Comment:Calculation based on the Chronic Kidney Disease Epidemiology Collaboration (CKD-EPI) equation refit without adjustment for race. BUN/Creatinine Ratio 14.3 LAB CHEMISTRY METHOD 01/13/2025 5:13 PM [facility] Calcium 8.4(L) 8.5 - 10.5 mg/dL LAB CHEMISTRY METHOD 01/13/2025 5:13 PM [facility] Blood Venous blood specimen / Unknown 01/13/2025 3:45 PM EDT 01/13/2025 4:33 PM EDT us Jeny Light MD LAB BLOOD ORDERABLES Final Resul t [facility] [address] [place] [address], * Vancomycin, trough (01/13/2025 3:45 PM EDT) Vancomycin Trough 18.0 10.0 - 20.0 mcg/mL LAB CHEMISTRY METHOD 01/13/2025 5:13 PM EDT [facility] Blood Venous blood specimen / Unknown 01/13/2025 3:45 PM EDT 01/13/2025 4:33 PM EDT us Jeny Light MD LAB BLOOD ORDERABLES Final Resul t [facility] [address] [place] [address], documented in this encounter Visit Diagnoses Diagnosis Encounter for therapeutic drug level monitoring documented in this encounter Additional Health Concerns Infection Onset Date Last Indicated Resolved Time MRSA 12/26/2024 12/29/2024 documented as of this encounter Care Teams Pantograph Operator Relationship Specialty Start Date End Date Fredy Adair PA [address] [place] [phone] PCP - General Internal Medicine 10/09/21 documented as of this encounter
== END 2025-09-26 09:31 | disposition home or self-care (01) ==
LOC: HO.ENCR 08:48
PROVIDERS: PCP Internal Medicine; Visit Provider Physician Assistant Medical
DX: E11.59 Type 2 diabetes mellitus with other circulatory complications (principal); R80.9 Proteinuria, unspecified; I10 Essential (primary) hypertension; R11.10 Vomiting, unspecified; Z13.9 Encounter for screening, unspecified; E11.52 Type 2 diabetes mellitus with diabetic peripheral angiopathy with gangrene; Z79.4 Long term (current) use of insulin

== ENCOUNTER 2025-09-26 08:48 | Outpatient (REF) | payer OTHER, SELFPAY ==
[2025-09-26 10:55] LABS: Hematocrit 29.3 % (42.0-52.0); Hemoglobin 9.4 g/dl (14.0-18.0); Mean Corpuscular HGB Conc 32.1 g/dl (31.0-36.0); Mean Corpuscular Hemoglobin 27.8 pg (27.0-33.0); Mean Corpuscular Volume 86.7 fL (80.0-98.0); NRBC Abs Auto 0.000 X10*3/uL (0.0-0.012); NRBC Pct Auto 0.0 /100WBC (0.0-0.2); Platelet Count 412 X10*3/uL (160-400); Red Blood Count 3.38 X10*6/uL (4.60-5.80); White Blood Count 11.0 X10*3/uL (4.8-10.8)
[2025-09-26 11:50] LABS: Alanine Aminotransferase 17 U/L (0-40); Albumin Level 3.4 g/dL (3.5-5.0); Alkaline Phosphatase 108 U/L (39-117); Anion Gap 12 (12-20); Aspartate Amino Transferase 18 U/L (5-37); Blood Urea Nitrogen 29 mg/dL (9-16); Calcium 8.8 mg/dL (8.4-10.2); Carbon Dioxide 23 mmol/L (22-29); Chloride 109 mmol/L (96-108); Cholesterol 163 mg/dL (<200); Estimated Glomerular Filt Rate 34; HDL Cholesterol 44 mg/dL (>40); Potassium 4.6 mmol/L (3.3-5.1); Sodium 139 mmol/L (135-145); Total Protein 7.1 g/dL (6.5-8.0); Triglycerides 124 mg/dL (<150)
[2025-09-26 12:11] LABS: Thyroid Stimulating Hormone 0.51 uIU/mL (0.32-4.0)
[2025-09-26 12:21] LABS: Vitamin B12 400 pg/mL (200-900)
--- OUTSIDE RECORDS SUMMARY | 2025-09-26 12:32 | XMS_ITS | Data Portability ---
Author Organization [facility], Main Office Address [address], [address] [place] [address] Care Team Providers Care Demand Equipment Repairer Name Role Phone WING HUNG - 2ND FLOOR OTHER LOUIS NORIEGA Primary Care Provider Assessment No assessment recorded. Plan of Treatment Reminders Order Date Submit Date Provider Last Modified By Organization Details Last Modified Time Details Appointments None recorded. Lab None recorded. Referral None recorded. Procedures None recorded. Surgeries None recorded. Imaging None recorded. Medication Orders OxyContin 20 mg tablet,cru sh resistant, extended release 2023 024 [facility] , [address] [place] [address], [id number], 4 13:30:25 oxycodone 5 mg tablet 2023 024 [facility] , [address] [place] [address], [id number], 4 17:34:22 Patient TargetsNo targets recorded. Patient InstructionsNo instructions recorded. Reason for Referral None Reported. Problems Name Problem SNOMED Code Status Onset Date Resolution Date Notes Provider Name and Address Organization Details Recorded Time Osteomyelit is of right foot [id number] 100 Active 2023 Jenny Kirby NP [address], [address], [place], [address], [facility] 4 09:47:48 Ulcer of left heel Active 2023 Jenny Kirby NP [address], [address], [place], [address], [facility] 4 09:48:05 Pain 12371607 Active 2023 Jenny Kirby NP [address], [address], [place], [address], [facility] 4 09:48:24 Peripheral vascular disease 584715357 Active 2023 Jenny Kirby NP [address], [address], [place], [address], [facility] 4 09:48:34 Coronary arterioscle rosis 50376004 Active 2023 Jenny Kirby NP [address], [address], [place], [address], [facility] 4 09:48:40 Type 2 diabetes mellitus 81393018 Active 2023 Jenny Kirby NP [address], [address], [place], [address], [facility] 4 09:48:56 Gastroesoph ageal reflux disease 148308254 Active 2023 Jenny Kirby NP [address], [address], [place], [address], [facility] 4 09:49:03 Anemia 031147530 Active 2023 Jenny Kirby NP [address], [address], [place], [address], [facility] 4 09:49:11 Chronic kidney disease 194223234 Active 2023 Jenny Kirby NP [address], [address], [place], [address], [facility] 4 09:49:27 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 Active 2023 Jenny Kirby NP [address], [address], [place], [address], [facility] 4 09:51:16 Hypertensiv e disorder 30912456 Active 2023 Jenny Kirby NP [address], [address], [place], [address], [facility] 4 09:52:14 Constipatio n 85422373 Active 2023 Jenny Kirby, MAURIZIO [address], [address], [place], [address], [facility] 4 10:19:28 Hypoalbumin emia 356573250 Active 2023 Jenny Kirby NP [address], [address], [place], [address], [facility] 4 10:25:55 Problem Notes None recorded. Medical Equipment None Reported. Allergies No known drug allergies Medications Name Sig Start Date Stop Date Status Note LastModified by Organization Details LastModified Time losartan 50 mg tablet active Not Available Not Available No t Available amoxicillin 500 mg capsule TAKE 1 CAPSULE BY MOUTH THREE TIMES DAILY active Not Available Not Available Not Available atorvastatin 40 mg tablet TAKE 1 TAB DAILY BY MOUTH active Not Available Not Available No t Available clonidine HCl 0.1 mg tablet active Not Available Not Available Not Available acetaminophe n 325 mg tablet TAKE 2 TABLETS BY MOUTH EVERY 6 HOURS NEEDED FOR PAIN (MILD TO MODERATE PAIN) FOR UP TO 10 DAYS. active Not Available Not Available No t Available carvedilol 12.5 mg tablet active Not Available Not Available Not Available metoprolol tartrate 100 mg tablet active Not Available Not Available No t Available metoprolol succinate ER 50 mg tablet,exten ded release 24 hr TAKE 1 TABLET BY MOUTH DAILY active Not Available Not Available Not Available sulfamethoxa zole 400 mg-trimethop rim 80 mg tablet TAKE 1 TABLET ORAL TWICE A DAY X 10 DAYS active Not Available Not Available No t Available cefepime 2 gram solution for injection active Not Available Not Available No t Available ondansetron HCl 4 mg tablet active Not Available Not Available Not Available isosorbide mononitrate ER 30 mg tablet,exten ded release 24 hr active Not Available Not Available Not Available metoprolol succinate ER 100 mg tablet,exten ded release 24 hr active Not Available Not Available Not Available hydralazine 25 mg tablet active Not Available Not Available Not Available clopidogrel 75 mg tablet TAKE 1 TABLET BY MOUTH EVERY DAY active Not Available Not Available No t Available levofloxacin 250 mg tablet TAKE 1 TABLET BY MOUTH EVERY DAY FOR 10 DAYS active Not Available Not Available No t Available omeprazole 40 mg capsule,eve yed release TAKE 1 CAPSULE BY MOUTH DAILY AT 6.30 AM active Not Available Not Available N ot Available doxycycline monohydrate 100 mg tablet TAKE 1 TABLET BY MOUTH TWICE A DAY FOR 7 DAYS active Not Available Not Available No t Available ondansetron 8 mg disintegrati ng tablet active Not Available Not Available No t Available linezolid 600 mg tablet TAKE 1 TABLET BY MOUTH TWICE A DAY active Not Available Not Available No t Available amlodipine 10 mg tablet TAKE 1 TABLET BY MOUTH DAILY active Not Available Not Available Not Available doxycycline monohydrate 100 mg capsule TAKE 1 CAPSULE BY MOUTH TWICE A DAY FOR 10 DAYS active Not Available Not Available No t Available metformin 1,000 mg tablet TAKE 1 TABLET BY MOUTH TWICE A DAY active Not Available Not Available No t Available lisinopril 10 mg tablet active Not Available Not Available Not Available losartan 25 mg tablet TAKE 1 TABLET BY MOUTH EVERY DAY active Not Available Not Available No t Available metoprolol tartrate 50 mg tablet active Not Available Not Available No t Available gabapentin 300 mg capsule active Not Available Not Available Not Available zolpidem 5 mg tablet TAKE 1 TABLET BY MOUTH AT BEDTIME FOR 7 DAYS NEEDED FOR SLEEP active Not Available Not Available No t Available metoprolol succinate ER 25 mg tablet,exten ded release 24 hr TAKE 1 TABLET BY MOUTH EVERY DAY active Not Available Not Available No t Available ferrous sulfate 325 mg (65 mg iron) tablet,delay ed release TAKE 1 TABLET BY MOUTH EVERY OTHER DAY active Not Available Not Available No t Available losartan 100 mg tablet active Not Available Not Available No t Available doxycycline hyclate 100 mg tablet TAKE 1 TABLET BY MOUTH TWICE A DAY active Not Available Not Available No t Available oxycodone 5 mg tablet TAKE 3 TABLETS BY MOUTH EVERY 6 HOURS NEEDED FOR PAIN FOR 7 DAYS active Not Available Not Available No t Available Laxative (bisacodyl) 5 mg tablet,delay ed release TAKE 2 TABLETS (10 MG'S) BY MOUTH AT BEDTIME FOR 2 DAYS active Not Available Not Available No t Available insulin lispro (U-100) 100 unit/mL subcutaneous pen active Not Available Not Available Not Available daptomycin 500 mg intravenous solution active Not Available Not Available Not Available chlorhexidin e gluconate 0.12 % mouthwash active Not Available Not Available No t Available heparin, porcine (PF) 10 unit/mL intravenous syringe active Not Available Not Available Not Available Lantus Solostar U-100 Insulin 100 unit/mL (3 mL) subcutaneous pen INJECT 30 UNIT (0.3 ML) SUBCUTANEOU SLY EVERY MORNING FOR 30 DAYS active Not Available Not Available No t Available BD PosiFlush Normal Saline 0.9 % injection syringe active Not Available Not Available Not Available GaviLyte-G 236 gram-22.74 gram-6.74 gram-5.86 gram oral solution PLEASE SEE ATTACHED FOR DETAILED DIRECTIONS active Not Available Not Available N ot Available BD Ultra-Fine Karen Pen Needle 32 gauge x /32 DIRECTED 4 TIMES A DAY active Not Available Not Available No t Available BD AutoShield Duo Pen Needle 30 gauge x 3/16 active Not Available Not Available Not Available Eliquis 5 mg tablet TAKE 1 TABLET BY MOUTH TWICE A DAY active Not Available Not Available No t Available Trulicity 1.5 mg/0.5 mL subcutaneous pen injector INJECT 0.5 ML SUBCUTANEOU SLY ONE TIME PER WEEK active Not Available Not Available No t Available Trulicity 0.75 mg/0.5 mL subcutaneous pen injector active Not Available Not Available Not Available OxyContin 20 mg tablet,crush resistant,ex tended release TAKE 1 TABLET BY MOUTH EVERY 12 HOURS active Not Available Not Available No t Available Kapspargo Sprinkle 25 mg capsule,exte nded release active Not Available Not Available Not Available FreeStyle Jayla 2 Sensor kit USE DIRECTED active Not Available Not Available No t Available FreeStyle Jayla 2 [place] USE DIRECTED active Not Available Not Available No t Available Mounjaro 5 mg/0.5 mL subcutaneous pen injector active Not Available Not Available Not Available Vitals Date Recorded Heart rate Respiratory rate Body temperature Oxygen saturation Systolic And Diastolic Provider Name and Address Organization Details Last Updated DateTime 4 77 /min 18 /min 97.8 [degF] 98 % 130/76 mm[Hg] Jenny Kirby NP [address] [facility] [address], [place], [address] , [facility] 4 09:28:37 Date Recorded Heart rate Respiratory rate Body temperature Oxygen saturation Systolic And Diastolic Provider Name and Address Organization Details Last Updated DateTime 4 81 /min 16 /min 97.1 [degF] 98 % 150/76 mm[Hg] Jenny Kirby NP [address], [address], [place], [address] , [facility] 10:17:20 Social History Question Answer Notes LastModified by [employer] Details LastModified Time Tobacco Smoking Status Former Smoker quit 9 months ago Jenny Kirby NP [address], [address], [place], [address], [facility] 05/14/2024 11:06:58 What Is Your Code Status? Full Code Information not available 05/14/2024 Where Do You Live? Apartment Information not available 05/14/2024 What Was The Date Of Your Most Recent Tobacco Screening? 05/14/2024 Information not available 05/14/2024 Have You Ever Been Counseled For Unhealthy Alcohol Use? No Information not available 05/14/2024 What Is Your Relationship Status? Information not available 05/14/2024 How Much Tobacco Do You Smoke? 2 PPW Information not available 05/14/2024 Has Tobacco Cessation Counseling Been Provided? No Na Refuses And Refuses NRT Information not available 05/14/2024 How Many Years Have You Smoked Tobacco? 15 Information not available 05/14/2024 Sex: Male Functional Status Question Answer Note LastModified by [employer] ion Details LastModified Time How many times per week do you consume alcohol? Less than 1 time per week Information not available 05/14/2024 Do you use any illicit or recreational drugs? No occassional pot use Information not available 05/14/2024 Do you or have you ever used any other forms of tobacco or nicotine? No Information not available 05/14/2024 What is your level of alcohol consumption? Occasional 3-5 shots on the weekends no hx of withdrawal and 3-5 months ago was last drink Information not available 05/14/2024 Mental Status None recorded. Family History Nothing Reported Notes:nc Medical History No medical history recorded. Past Encounters Encounter ID Performer Location Encounter Start Date Encounter Closed Date Diagnosis/Indication Diagnosis SNOMED-CT Code Diagnosis ICD10 Code Diagnosis IMO Codes Diagnosis Note [id number] Jenny Kirby NP [address] [place] [address] 05/14/2024 09:26:44 05/20/2024 15:28:13 Osteomyelitis of right foot 8402134740 499273 M86.9 Ultimately required right BKA on 04/20/24, MRSA noted to wound, but Bld cultures negative. Vancomycin 14 day course finished on 05/04/24.Carlie ji 5 mg po bid (home dose resumed)PT OT eval and treatnonwe ightbearin g to the right lower extremity. Ampushield to right lower extremity when out of bed.Weight bearing as frida to left lower extremity with postop shoe in place for transfers and stair negotiatio n only. No ambulation .Wound care team to eval and treatBetad ine, dsd and joi wrap dailyfu with prosthetic s and orthotics for further management of RBKA and right lower ext prosthesis fitting when ready/heal edfu with vascular, nsg to fu with post op apptsee pain management belowmonit or for s/s of infection Peripheral vascular disease 240083915 I73.9 see above Anemia 428450674 D64.9 with hx of BRIA requiring iron infusion prior to BKAAnemia required 1 unit PRBCs felt from acute blood lossferrou s sulfate 325 mg po daily (started in hosp)monit or cbc weeklymoni tor for s/s of anemai Pain 44024227 R52 pt upset with painacute and chronic pain with new R BKA on 04/20tyleno l 975 mg po bidoxycont in 20 mg po bidoxycodo ne 15 mg po q 4hours prn severe pain (5mg dose in computer, will change)genoveva apentin 300 mg po qhs (was titrated in hosp)monit or for relief and adjustment Ulcer of left heel 53954 [address] 8292131 L97.429 with left metatarsal plantar foot woundbetad ine, mepilex dsg daily, (no other bulky dressings) wound team to evvicenta dc paperwork rec following with outpt clinic Type 2 virgie betes mellitus 47645072 E11.21 Insulin sliding scale with mealslantu s 15 units sc qhs(decrea sed in hosp for hypoglycem ia and metformin was dc'd)monit or BS with meals and [id number] in hosp 8% Hypertensive disorder 38 247438 I10 metoprolol succ to 50 mg po daily (increased in hosp)isoso rbide mononitrat e 30 mg po dailyamlod ipine 10 mg po daily Chronic ki dney disease 094862572 N18.9 ALEKSANDR on CKD with baseline of 1-1.2, was given IVF with improvemen t.monitor bmp weekly for changesavo id nephrotoxi c meds Gastroesop hageal reflux disease 620567668 K21.9 omeprazole 40 mg dailymonit or for reflux Coronary arteriosclerosis 00010045 I25.10 atorvastat in 40 mg po dailysee cardiac meds in HTN abovemonit or Constipation 13714639 K5 9.00 on bowel regimen with pain management narcoticsm agnesium hydroxide 20 ml daily prnbisacod ul prndocusat e 100 mg po bidmonitor Hypoalbuminemia 22467037 4 E88.09 hypoalbumi nemia noted in hosp felt to malnutriti ondieticia n consulton supplement s to continue heremonito r weights, nutritiona l statusadd protein liquid 30cc for wound healing/ma lnutrition Asthenia 38117140 R53.1 PT OT for strength, conditioni ng, balance, gait, stairs etc...supp ortive caremonito r [id number] Jenny Kirby NP [address] [address] 05/16/2024 10:16:18 06/02/2024 15:43:44 Osteomyelitis of right foot 9429059420 002144 M86.9 Ultimately required right BKA on 04/20/24, MRSA noted to wound, but Bld cultures negative. Vancomycin 14 day course finished on 05/04/24.con tEliquis 5 mg po bid (home dose resumed)PT OT eval and treat outpt and prnnonweig htbearing to the right lower extremity. Ampushield to right lower extremity when out of bed.Weight bearing as frida to left lower extremity with postop shoe in place for transfers and stair negotiatio n only. No ambulation . per dc summary [facility].Wound care team to eval and treat outpt appt 05/26 per wifeBetadi ne, dsd and joi wrap daily with vna to helpfu with prosthetic s and orthotics for further management of RBKA and right lower ext prosthesis fitting when ready/heal ed outptfu with vascular outpt and working on next apptsee pain management belowmonit or for s/s of infection outpt with pcp, vascular, wound clinic and vna Peripheral vascular disease 547840216 I73.9 see above Anemia 547468680 D64.9 with hx of BRIA requiring iron infusion prior to BKAAnemia required 1 unit PRBCs felt from acute blood loss in hospcontfe rrous sulfate 325 mg po daily (started in hosp)labs with pcp outpt as neededmoni tor for s/s of anemia outpt with pcp Pain 57433797 R52 pt upset with painacute and chronic pain with new R BKA on 04/20tyleno l 975 mg po bidoxycont in 20 mg po bid(script for 50 given)oxyc odone 15 mg po q 4hours prn severe pain (5mg dose in computer, will change)(89 left to go home with)gabap entin 300 mg po qhs (was titrated in hosp) (script sent)monit or for relief and adjustment outpt with pcp and vascular outpt Ulcer of left heel 72672 [address]52[address] 4303266 L97.429 with left metatarsal plantar foot woundbetad ine, mepilex dsg daily, (no other bulky dressings) wound team to eval and treatdesi paperwork rec following with outpt clinic Type 2 virgie betes mellitus 95887670 E11.21 of note:lantu s 15 units sc qhs(decrea sed in hosp for hypoglycem ia and metformin was dc'd and hayden was held )contInsul in sliding scale with meals05/15 will restart metformin 1000 mg po bid for increased BS(BS 409 today after large Mireles's meal brought in-educati on provided for optimal wound healing and covered with 10 units today.kallie pereyra BS with meals and [id number] in hosp 8%fu with pcp and adjust insulin as tolerated and follow for need to restart wei Hypertensive disorder 38 481544 I10 metoprolol succ to 50 mg po daily (increased in hosp) script givenisoso rbide mononitrat e 30 mg po dailyamlod ipine 10 mg po daily Chronic ki dney disease 994893779 N18.9 ALEKSANDR on CKD with baseline of 1-1.2, was given IVF with improvemen t.monitor bmp weekly for changesmet formin restarteda void nephrotoxi c medsfu with pcp outpt Gastroesop hageal reflux disease 838146674 K21.9 omeprazole 40 mg dailymonit or for reflux with pcp outpt Coronary arteriosclerosis 54256005 I25.10 atorvastat in 40 mg po dailysee cardiac meds in HTN abovemonit or outpt with pcp Constipation 73501923 K5 9.00 on bowel regimen with pain management narcoticsm agnesium hydroxide 20 ml daily prnbisacod yl prndocusat e 100 mg po bidmonitor outpt with pcp Hypoalbuminemia 64614585 4 E88.09 hypoalbumi nemia noted in hosp felt to malnutriti ondieticia n consulton supplement s to continue heremonito r weights, nutritiona l statusprot ein liquid 30cc for wound healing/ma lnutrition outpt pcp Asthenia 54427138 R53.1 PT OT for strength, conditioni ng, balance, gait, stairs etc...outp t as tolerateds upportive caremonito r outpt with pcp Health Concerns Section Related Observation LastModified by Organization Detai ls LastModified Time None Recorded Concern Status LastModified by Organization Details LastModified Time None Recorded Advance Directives Directive None Recorded Payers Insurance Date Sequence Insurance Name Policy Number Policy Wills Covered Member ID Wills Member ID Guarantor Name 06/02/2024 1 [facility] - DOS ON OR AFTER 2022 - MEDICARE ADVANTAGE [place] (MEDICARE REPLACEMENT/ADV ANTAGE - PPO) Irving Barry [id number] Irving Barry Notes Date Note Type Note Provider Name and Address Organization Details Recorded Time 05/14/2024 text/html Pt is a 53 yo male with pmh of diabetes, diabetic neuropathy, CAD, PAD, CKD stage III, hx of diabetic foot ulcer and left foot transmetatarsal amputation, nonhealing left foot stump wound ,and right foot MRSA osteomyelitis presented to [facility] on 04/18-05/13/24 with 3 weeks of worsening right foot wound and malodorous purulent drainage diagnosed with necrotizing soft tissue infection and progressive osteomyelitis ultimately requiring right BKA on 04/20/24 complicated by anemia and hypoglycemia, now here for continued care and rehab. Hosp course:*of note: discharge course summary and discharge meds do not match and appears discharge medications are more updated and will go with this. Ultimately required right BKA on 04/20/24, MRSA noted to wound, but Bld cultures negative. Vancomycin 14 day course finished on 05/04/24. Home dose of eliquis resumed for ac. He will need rehab and fu with vascular.Hypoglycemia noted and mounjaro was held felt related to infection.Anemia required 1 unit PRBCs felt from acute blood loss and started on ferrous sulfate.ALEKSANDR on CKD with baseline of 1-1.2, was given IVF with improvement.HTN- His metoprolol was increased to 50 mg po daily.Malnutrition with hypoalbuminemia started on supplements. On exam, pt is in wheelchair in NAD. He is alert and oriented and upset about his pain medication. It seems 5mg oxycodone in computer instead of 15 mg po dose q 4 hours for breakthrough pain. He reports would like to go home and the only reason he is here is he needs walker, wheelchair, and tub kit, and toilet seat raiser. He states all of this was ordered in the other rehab but didn't let him have the needed equipment becuase he was coming here. MOLST: full code 05/14/24MORSE: high risk Jenny Kirby, MAURIZIO [address], [address], [place], [address], [facility] 05/14/2024 11:10:17 05/16/2024 text/html Irving is a 53 yo male with pmh of diabetes, diabetic neuropathy, CAD, PAD, CKD stage III, hx of diabetic foot ulcer and left foot transmetatarsal amputation, nonhealing left foot stump wound ,and right foot MRSA osteomyelitis presented to [facility] on 04/18-05/13/24 with 3 weeks of worsening right foot wound and malodorous purulent drainage diagnosed with necrotizing soft tissue infection and progressive osteomyelitis ultimately requiring right BKA on 04/20/24 complicated by anemia and hypoglycemia, now here for continued care and rehab seen for a discharge summary. He requests to be seen this am so he can go home as soon as possible. Requests crutch to up and down the stairs as he lives on second floor, wheelchair, walker, tub shower chair, commode 3 in 1 , vna, wound clinic, vascular, and pcp appt. states she will call for the pcp and vascular appt. Has appt with wound on 05/26/24 per . She feels comfortable to go home with him at this time. Spoke with physical therapy and he was able to do stairs over the weekend with crutch and requests to leave, physical therapy in agreement he is safe to dc and social media executive aware of plan for dc tomorrow if possible. On exam, pt is seen alert and oriented with at bedside. He is working with physical therapy today. Wound without any s/s of infection to right BKA and left posterior ball of foot as in PE. He denies any nausea and reports having soft stools lately. Pain is managed. Of note: [facility] and BS 409. He was covered with 10 units and diabetic teaching was done, however this was a treat , ultimately covered with 10 units. Since here on 05/13/24 he has been working with physical therapy on the weekend and complaint with dressings and care. Vitals are stable with increased metoprolol from hospital. Overall, Blood sugars 200-300s lately without hypoglycemia. Will add metformin back to regimen as his sugars are very high and he can follow up with if monjaro can be added in future. Of note: Hosp course:*of note: discharge course summary and discharge meds do not match and appears discharge medications are more updated and will go with this. Ultimately required right BKA on 04/20/24, MRSA noted to wound, but Bld cultures negative. Vancomycin 14 day course finished on 05/04/24. Home dose of eliquis resumed for ac. He will need rehab and fu with vascular.Hypoglycemia noted and mounjaro was held felt related to infection.Anemia required 1 unit PRBCs felt from acute blood loss and started on ferrous sulfate.ALEKSANDR on CKD with baseline of 1-1.2, was given IVF with improvement.HTN- His metoprolol was increased to 50 mg po daily.Malnutrition with hypoalbuminemia started on supplements. MOLST: full code 05/14/24MORSE: high risk Jenny Kirby, MAURIZIO [address], [address], [place], [address], [facility] 06/02/2024 15:41:42
[2025-09-26 13:47] LABS: Appearance Urine Clear; Glucose Urine UA 500 mg/dL (Negative); PH 5.5 (5.0-9.0); Specific Gravity - Urine 1.025 (1.005-1.025); UMIC TRIGGER UA YES
[2025-09-26 14:56] LABS: Microalbum/Creatinine Ratio Ur 996.9 ug/mg cr (<30)
== END 2025-09-26 08:49 | disposition home or self-care (01) ==
LOC: HO.LAB 08:48
PROVIDERS: Absent Provider Internal Medicine; PCP Internal Medicine; Visit Provider Physician Assistant Medical
DX: E11.52 Type 2 diabetes mellitus with diabetic peripheral angiopathy with gangrene (principal); I10 Essential (primary) hypertension; E78.5 Hyperlipidemia, unspecified; R80.9 Proteinuria, unspecified; Z79.4 Long term (current) use of insulin; Z91.89 Other specified personal risk factors, not elsewhere classified
CPT/HCPCS: 36415; 80048; 80061; 80076; 81001; 82043; 82570; 82607; 84443; 85027